=== PATIENT | male | born 1965 | race Caucasian/White ===

== ENCOUNTER 2021-02-06 15:12 | Outpatient (REF) | payer MEDICAID, SELFPAY ==
--- NOTE | ~2021-02-06 | XR_ITS ---
EXAMINATION: XR CHEST CLINICAL INFORMATION: Cough COMPARISON: 03/27/2019 TECHNIQUE: 2 views of the chest were obtained. FINDINGS: No significant abnormality is noted involving the heart, lungs, mediastinum, bony thorax or soft tissues. XR/XR chest 2V IMPRESSION: Unremarkable examination.
== END 2021-02-06 15:13 | disposition home or self-care (01) ==
LOC: HO.XRAY 15:12
PROVIDERS: Absent Provider Internal Medicine; PCP Internal Medicine; Visit Provider Emergency Medicine
DX: R05 Cough (principal)
CPT/HCPCS: 71046

== ENCOUNTER 2021-02-07 23:44 | Emergency (ER) | payer MEDICAID, SELFPAY ==
--- NOTE | 2021-02-07 | ECG_ITS ---
Test Reason : BACK PAIN Blood Pressure : / mmHG Vent. Rate : 071 BPM Atrial Rate : 071 BPM P-R Int : 132 ms QRS Dur : 098 ms QT Int : 390 ms P-R-T Axes : 053 -07 090 degrees QTc Int : 423 ms Normal sinus rhythm Nonspecific T wave abnormality Abnormal ECG When compared with ECG of 07-JUL-2019 13:44, No significant change was found Referred By: Generic ED Physician Electronically Signed By:JOHN JONES
--- NOTE | ~2021-02-07 | XR_ITS ---
EXAMINATION: XR CHEST CLINICAL INFORMATION: Emily of breath COMPARISON: 02/06/2021 TECHNIQUE: Frontal view of the chest was obtained. FINDINGS: The lungs are well expanded. There is no focal consolidation, edema, or effusion. No pneumothorax. The cardiomediastinal silhouette is within normal limits. No acute osseous abnormality. Left axillary clips noted. XR/XR chest 1V IMPRESSION: Clear lungs.
[2021-02-07 23:50] VITALS: BP 142/78; PULSE 90; RESP 20; TEMP 36.5; O2SAT 98; BMI 33.2
[2021-02-08 00:15] LABS: Basophils Percent Auto 0.3 % (0-2); Hematocrit 34.6 % (42-52); Hemoglobin 12.1 g/dl (14.0-18.0); Imm Gran Abs Auto 0.03 X10*3/uL (0.00-0.03); Imm Gran Pct Auto 0.5 % (0.0-0.4); Lymphocytes Absolute Auto 0.4 X10*3/uL (1.2-4.9); Lymphocytes Percent Auto 5.7 % (20-40); MANUAL DIFF FLAG SCAN; Mean Corpuscular Hemoglobin 29.3 pg (27.0-33.0); Mean Corpuscular Volume 83.8 fL (80-98); Mean Platelet Volume 11.2 fL (9.4-12.4); Monocytes Absolute Auto 0.1 X10*3/uL (0.1-1.2); Monocytes Percent Auto 1.7 % (2-11); Neutrophils Absolute Auto 5.9 X10*3/uL (2.0-8.3); Neutrophils Percent Auto 91.8 % (45-73); Platelet Count 226 X10*3/uL (160-400); Red Blood Count 4.13 X10*6/uL (4.60-5.80); Red Cell Distribution Width 12.3 % (11.0-16.0); SCAN SMEAR FLAG 1; White Blood Count 6.4 X10*3/uL (4.8-10.8)
[2021-02-08 00:36] LABS: SLIDE REVIEW VERIFIED
[2021-02-08 00:51] LABS: Alanine Aminotransferase 24 U/L (0-40); Albumin Level 3.9 g/dL (3.5-5.0); Alkaline Phosphatase 123 U/L (39-117); Anion Gap 14 (12-20); Aspartate Amino Transferase 13 U/L (5-37); Bilirubin Total 0.5 mg/dL (0.0-1.0); Blood Urea Nitrogen 27 mg/dL (9-16); Calcium 8.5 mg/dL (8.4-10.2); Carbon Dioxide 16 mmol/L (22-29); Chloride 102 mmol/L (96-108); Estimated Glomerular Filt Rate 26; Glucose Random 693 mg/dL (60-115); Potassium 5.2 mmol/L (3.3-5.1); Sodium 127 mmol/L (135-145); Total Protein 6.9 g/dL (6.5-8.0)
[2021-02-08 00:52] LABS: Troponin-I High Sensitivity 11.5 ng/L (<3.5-35.0)
[2021-02-08 02:00] VITALS: BP 159/88; PULSE 68; RESP 18; O2SAT 99
--- NOTE | 2021-02-08 02:58 | ED_ITS ---
HPI - General Adult General Chief complaint: General Medical Stated complaint: High Blood Sugar/Cough Time Seen by Provider: 02/08/21 02:58 Source: patient Mode of arrival: ambulatory Limitations: no limitations History of Present Illness HPI narrative: patient checked his glucose and it read high. patient on predn isone for cough. 2 days ago he was tested for COVID and was negative. patient has been vacinated. patient does not smoke and has not been on prednisone. He takes insulin. Patient is a kidney transplant patient. Onset (ago): day(s) Severity: moderate Associated symptoms: cough Related Data Allergies Allergy/AdvReac Type Severity Reaction Status Date / Time hydromorphone [From DILAUDID] Allergy Mild ITCHINESS Verified 02/07/21 23:49 diphenhydramine Allergy Unknown UNK Verified 02/07/21 23:49 [From BENADRYL] Review of Systems Constitutional: Constitutional: Reports no additional constitutional complaints Eyes: Eyes: Reports no additional eye complaints ENT: Denies dizziness Cardiovascular: Cardiovascular: Reports no additional cardiovascular complaints Respiratory: Respiratory: Reports as per HPI Gastrointestinal: Gastrointestinal: Reports no additional gastrointestinal complaints Musculoskeletal: Musculoskeletal: Reports no additional musculoskeletal complaints Integumentary/Breasts: Skin/Breast: Denies rash Neurologic: Reports system reviewed and no additional complaints, except as documented, Denies dizziness and Denies Sensory deficit (Neuro) Psychiatric: Psychiatric: Denies anxiety [facility] Social History Social History Advance Directives: No Advance Directives Information Provided: Yes Physical Exam Vital Signs: Vital Signs: Last Vital Signs Temp 97.7 F 02/07/21 23:50 Pulse 75 02/08/21 05:25 Resp 18 02/08/21 05:25 BP 133/66 02/08/21 05:25 Pulse Ox 98 02/08/21 05:25 Body Mass Index 33.2 Const: General: healthy appearing Nutritional Appearance: average body habitus Orientation/consciousness: oriented to person and patient oriented x3 Limitations: no limitations HENMT: Head: Yes normal to inspection Ears: external ears normal General nose exam: Normal external nose present Mouth: Normal oral and palatal mucosa present and oropharynx normal Throat: Yes posterior oropharynx normal Eyes: General: appearance normal, both eyes and all related structures Neck: Other: supple Neck: Yes normal visual inspection Chest: Chest palpation & inspection: normal inspection of the chest Resp: Auscultation: clear to auscultation bilaterally Cardio: Jugular venous distension: no JVD Rate: regular rate Rhythm: regular rhythm Heart sounds: S1 normal heart sound present and S2 normal heart sound present GI: Inspection: Yes normal to inspection Palpation (GI): Soft to palpation, nontender and No hepatosplenomegaly present Auscultation: normal bowel sounds : General: Yes no CVA tenderness Back/Spine/Pelvis: Back: no CVA tenderness Skin: General skin exam: no rashes or lesions noted Neuro: General: oriented to person and patient oriented x3 Cranial nerves: Yes CN's II-XII intact bilaterally Motor exam (neuro): 5/5 motor strength present throughout Sensory Exam: No Sensory deficit (Neuro) Extrem: Other: old nonfunctioning fistula in left arm Psych: Appearance: grossly normal Course Reevaluation(s) Reevaluation #1: patient with RSV and hyperglycemia secondary to being on prednisone. glucose now improved will dc home and stop prednisone Time: 05:56 Medical Decision Making Lab Data Result diagrams: 02/08/21 00:04 02/08/21 00:04 Labs: Lab Results 02/08/21 02/08/21 02/08/21 Range/Units 00:04 00:04 00:04 WBC 6.4 (4.8-10.8) X10*3/uL RBC 4.13 L (4.60-5.80) X10*6/uL Hgb 12.1 L (14.0-18.0) g/dl Hct 34.6 L (42-52) % MCV 83.8 (80-98) fL MCH 29.3 (27.0-33.0) pg MCHC 35.0 (31.0-36.0) g/dl RDW 12.3 (11.0-16.0) % Plt Count 226 (160-400) X10*3/uL MPV 11.2 (9.4-12.4) fL Immature Gran % (Auto) 0.5 H (0.0-0.4) % Neut % (Auto) 91.8 H (45-73) % Lymph % (Auto) 5.7 L (20-40) % [place] % (Auto) 1.7 L (2-11) % Eos % (Auto) 0.0 (0-4) % Baso % (Auto) 0.3 (0-2) % Lymph # (Auto) 0.4 L (1.2-4.9) X10*3/uL [place] # (Auto) 0.1 (0.1-1.2) X10*3/uL Eos # (Auto) 0.0 (0.0-0.4) X10*3/uL Baso # (Auto) 0.0 (0.0-0.2) X10*3/uL Abs Immat Gran (auto) 0.03 (0.00-0.03) X10*3/uL Absolute Neuts (auto) 5.9 (2.0-8.3) X10*3/uL Absolute Nucleated RBC 0.000 (0.0-0.012) X10*3/uL Nucleated RBC % (auto) 0.0 (0.0-0.2) /100WBC Smear Tech's Comments VERIFIED Sodium 127 L (135-145) mmol/L Potassium 5.2 H (3.3-5.1) mmol/L Chloride 102 (96-108) mmol/L Carbon Dioxide 16 L (22-29) mmol/L Anion Gap 14 (12-20) BUN 27 H (9-16) mg/dL Creatinine 2.59 H (0.5-1.4) mg/dL Estim Creat Clear Calc 31.0 Estimated GFR 26 POC Glucose (60-115) mg/dL Random Glucose 693 H* (60-115) mg/dL Calcium 8.5 (8.4-10.2) mg/dL Total Bilirubin 0.5 (0.0-1.0) mg/dL AST 13 (5-37) U/L ALT 24 (0-40) U/L Alkaline Phosphatase 123 H (39-117) U/L Troponin I High Sens 11.5 (<3.5-35.0) ng/L Total Protein 6.9 (6.5-8.0) g/dL Albumin 3.9 (3.5-5.0) g/dL Coronavirus (PCR) (Negative) Influenza Type A (PCR) (Negative) Influenza Type B (PCR) (Negative) RSV RNA Qual (PCR) (Negative) 02/08/21 02/08/21 02/08/21 Range/Units 03:30 04:22 05:30 WBC (4.8-10.8) X10*3/uL RBC (4.60-5.80) X10*6/uL Hgb (14.0-18.0) g/dl Hct (42-52) % MCV (80-98) fL MCH (27.0-33.0) pg MCHC (31.0-36.0) g/dl RDW (11.0-16.0) % Plt Count (160-400) X10*3/uL MPV (9.4-12.4) fL Immature Gran % (Auto) (0.0-0.4) % Neut % (Auto) (45-73) % Lymph % (Auto) (20-40) % [place] % (Auto) (2-11) % Eos % (Auto) (0-4) % Baso % (Auto) (0-2) % Lymph # (Auto) (1.2-4.9) X10*3/uL [place] # (Auto) (0.1-1.2) X10*3/uL Eos # (Auto) (0.0-0.4) X10*3/uL Baso # (Auto) (0.0-0.2) X10*3/uL Abs Immat Gran (auto) (0.00-0.03) X10*3/uL Absolute Neuts (auto) (2.0-8.3) X10*3/uL Absolute Nucleated RBC (0.0-0.012) X10*3/uL Nucleated RBC % (auto) (0.0-0.2) /100WBC Smear Tech's Comments Sodium (135-145) mmol/L Potassium (3.3-5.1) mmol/L Chloride (96-108) mmol/L Carbon Dioxide (22-29) mmol/L Anion Gap (12-20) BUN (9-16) mg/dL Creatinine (0.5-1.4) mg/dL Estim Creat Clear Calc Estimated GFR POC Glucose 423 H* 281 H (60-115) mg/dL Random Glucose (60-115) mg/dL Calcium (8.4-10.2) mg/dL Total Bilirubin (0.0-1.0) mg/dL AST (5-37) U/L ALT (0-40) U/L Alkaline Phosphatase (39-117) U/L Troponin I High Sens (<3.5-35.0) ng/L Total Protein (6.5-8.0) g/dL Albumin (3.5-5.0) g/dL Coronavirus (PCR) NEGATIVE (Negative) Influenza Type A (PCR) NEGATIVE (Negative) Influenza Type B (PCR) NEGATIVE (Negative) RSV RNA Qual (PCR) POSITIVE A (Negative) Imaging Data Chest x-ray: Radiologist's impression: no infiltrate Discharge Plan Discharge Clinical Impression: Acute hyperglycemia, Respiratory syncytial virus (RSV) Instructions: Diabetic Hyperglycemia (ED) Additional Instructions: stop prednisone Referrals: [facility] [Primary Care Provider] - 5 days
[2021-02-08] MEDS: 0.9 % Sodium Chloride 1,000 ML 999 ML IVCONT ×3 (03:13→05:25)
[2021-02-08] MEDS: Insulin Lispro 100 UNIT/ML 3 ML VIAL 10 UNIT SUBCUT (03:24)
[2021-02-08 04:26] VITALS: BP 138/67; PULSE 74; RESP 18; O2SAT 99
[2021-02-08 04:51] LABS: Influenza A PCR NEGATIVE (Negative); Influenza B PCR NEGATIVE (Negative); Resp Syncy Virus RNA Qual PCR POSITIVE (Negative); SARS COV2 PCR INHOUSE NEGATIVE (Negative)
[2021-02-08 05:06] VITALS: BP 139/79; PULSE 72; RESP 16; O2SAT 98
[2021-02-08 05:25] VITALS: BP 133/66; PULSE 75; RESP 18; O2SAT 98
[2021-02-08 05:33] LABS: Glucose, Whole Blood 281 mg/dL (60-115)
[2021-02-08 05:33] LABS: Glucose, Whole Blood 423 mg/dL (60-115)
--- NOTE | 2021-02-08 05:53 | PC.NURSE ---
pt poc improved and plan is to discharge pt.
--- NOTE | 2021-02-08 06:09 | PC.NURSE ---
per dr irwin the last dose of ns is not needed and pt is ready for discharge.
== END 2021-02-08 06:24 | disposition home or self-care (01) ==
PROVIDERS: Emergency Provider Emergency Medicine
DX: E11.65 Type 2 diabetes mellitus with hyperglycemia (principal); R05 Cough; B97.4 Respiratory syncytial virus as the cause of diseases classified elsewhere; Z94.0 Kidney transplant status; Z79.4 Long term (current) use of insulin; Z79.52 Long term (current) use of systemic steroids; Z20.822 Contact with and (suspected) exposure to COVID-19
CPT/HCPCS: 0241U; 36415; 71045; 80053; 82947; 84484; 85025; 93005; 96360; 96361; 99284

== ENCOUNTER 2021-02-20 17:19 | Emergency (ER) | payer MEDICAID, SELFPAY ==
--- NOTE | ~2021-02-20 | XR_ITS ---
EXAMINATION: XR CHEST CLINICAL INFORMATION: Covid positive COMPARISON: 02/08/2021 TECHNIQUE: Frontal view of the chest was obtained. FINDINGS: The lungs are well expanded. There is no focal consolidation, edema, or effusion. No pneumothorax. The cardiomediastinal silhouette is within normal limits. No acute osseous abnormality. Left upper extremity vascular stent noted. XR/XR chest 1V IMPRESSION: Clear lungs.
[2021-02-20 18:15] VITALS: BP 111/67; PULSE 96; RESP 16; TEMP 37; O2SAT 100; BMI 29.5
--- NOTE | 2021-02-20 18:26 | ED_ITS ---
HPI - General Adult General Chief complaint: General Medical Stated complaint: covid + Time Seen by Provider: 02/20/21 18:26 Source: patient Mode of arrival: ambulatory Limitations: language barrier History of Present Illness HPI narrative: Patient diabetic RSV positive on 02/08, came here for increased weakness body aches not feeling good since then slight shortness of breath dry cough. Patient took his insulin the morning and blood sugar was 150 at that time but missed his p.m. insulin as he did eat his lunch or dinner Related Data Allergies Allergy/AdvReac Type Severity Reaction Status Date / Time hydromorphone [From DILAUDID] Allergy Mild ITCHINESS Verified 02/07/21 23:49 diphenhydramine Allergy Unknown UNK Verified 02/07/21 23:49 [From BENADRYL] Review of Systems Review of Systems: Yes all other systems are reviewed and are negative [facility] Past Medical History Medical History Diabetes HTN (hypertension) Surgical History H/O arteriovenostomy for renal dialysis Social History Social History Advance Directives: No Advance Directives Information Provided: No Physical Exam Vital Signs: Vital Signs: Last Vital Signs Temp 98.6 F 02/20/21 18:15 Pulse 96 02/20/21 18:15 Resp 16 02/20/21 18:15 BP 111/67 02/20/21 18:15 Pulse Ox 100 02/20/21 18:15 Body Mass Index 29.5 Appearance: Alert. Oriented X3. No acute distress. Eyes: PERRLA, No Nystagmus ENT: Pharynx normal. Oral Mucosa moist Neck: Normal inspection. Neck supple. CVS: Normal heart rate and rhythm. Pulses normal. Respiratory: No respiratory distress. Equal air entry bilateral, no whe ezing/rales/rhonchi Abdomen: Soft and nontender. Bowel sounds are present, no mass palpable, no CVA tenderness Skin: Skin warm and dry. Normal skin color. Normal skin turgor. Extremities: No lower extremity edema. No calf tenderness Neuro: Oriented X 3. No motor deficit. No sensory deficit.No cerebellar signs , cranial nerves II-XII intact Medical Decision Making MDM Narrative Medical decision making narrative: Patient's history of RSV infection not the COVID repeat COVID testing was also negative chest x-ray negative blood sugars elevated as patient missed his insulin which improved after giving insulin and IV fluids patient advised to follow-up with his PCP Lab Data Result diagrams: 02/20/21 19:13 02/20/21 19:13 Labs: Lab Results 02/20/21 02/20/21 02/20/21 Range/Units 19:13 19:13 21:46 WBC 8.5 (4.8-10.8) X10*3/uL RBC 4.38 L (4.60-5.80) X10*6/uL Hgb 12.9 L (14.0-18.0) g/dl Hct 36.1 L (42-52) % MCV 82.4 (80-98) fL MCH 29.5 (27.0-33.0) pg MCHC 35.7 (31.0-36.0) g/dl RDW 12.1 (11.0-16.0) % Plt Count 268 (160-400) X10*3/uL MPV 11.1 (9.4-12.4) fL Immature Gran % (Auto) 0.2 (0.0-0.4) % Neut % (Auto) 77.8 H (45-73) % Lymph % (Auto) 15.0 L (20-40) % [place] % (Auto) 5.9 (2-11) % Eos % (Auto) 0.6 (0-4) % Baso % (Auto) 0.5 (0-2) % Lymph # (Auto) 1.3 (1.2-4.9) X10*3/uL [place] # (Auto) 0.5 (0.1-1.2) X10*3/uL Eos # (Auto) 0.1 (0.0-0.4) X10*3/uL Baso # (Auto) 0.0 (0.0-0.2) X10*3/uL Abs Immat Gran (auto) 0.02 (0.00-0.03) X10*3/uL Absolute Neuts (auto) 6.6 (2.0-8.3) X10*3/uL Absolute Nucleated RBC 0.000 (0.0-0.012) X10*3/uL Nucleated RBC % (auto) 0.0 (0.0-0.2) /100WBC Sodium 128 L (135-145) mmol/L Potassium 5.0 (3.3-5.1) mmol/L Chloride 105 (96-108) mmol/L Carbon Dioxide 15 L (22-29) mmol/L Anion Gap 13 (12-20) BUN 37 H (9-16) mg/dL Creatinine 2.91 H (0.5-1.4) mg/dL Estim Creat Clear Calc 26.1 Estimated GFR 23 POC Glucose 386 H* (60-115) mg/dL Random Glucose 577 H* (60-115) mg/dL Calcium 9.2 D (8.4-10.2) mg/dL COVID-19 ([facility]) (Negative) COVID-19 Clin Com 02/20/21 Range/Units 22:01 WBC (4.8-10.8) X10*3/uL RBC (4.60-5.80) X10*6/uL Hgb (14.0-18.0) g/dl Hct (42-52) % MCV (80-98) fL MCH (27.0-33.0) pg MCHC (31.0-36.0) g/dl RDW (11.0-16.0) % Plt Count (160-400) X10*3/uL MPV (9.4-12.4) fL Immature Gran % (Auto) (0.0-0.4) % Neut % (Auto) (45-73) % Lymph % (Auto) (20-40) % [place] % (Auto) (2-11) % Eos % (Auto) (0-4) % Baso % (Auto) (0-2) % Lymph # (Auto) (1.2-4.9) X10*3/uL [place] # (Auto) (0.1-1.2) X10*3/uL Eos # (Auto) (0.0-0.4) X10*3/uL Baso # (Auto) (0.0-0.2) X10*3/uL Abs Immat Gran (auto) (0.00-0.03) X10*3/uL Absolute Neuts (auto) (2.0-8.3) X10*3/uL Absolute Nucleated RBC (0.0-0.012) X10*3/uL Nucleated RBC % (auto) (0.0-0.2) /100WBC Sodium (135-145) mmol/L Potassium (3.3-5.1) mmol/L Chloride (96-108) mmol/L Carbon Dioxide (22-29) mmol/L Anion Gap (12-20) BUN (9-16) mg/dL Creatinine (0.5-1.4) mg/dL Estim Creat Clear Calc Estimated GFR POC Glucose (60-115) mg/dL Random Glucose (60-115) mg/dL Calcium (8.4-10.2) mg/dL COVID-19 ([place]) Negative (Negative) COVID-19 Clin Com See Note Discharge Plan Discharge Clinical Impression: Respiratory syncytial virus (RSV) infection Patient Disposition: Home, Self-Care Instructions: Respiratory Syncytial Virus (ED) Additional Instructions: Drink plenty of fluids You do not have COVID-19 infection Take your insulin on time Print Language: [place]
[2021-02-20] MEDS: 0.9 % Sodium Chloride 1,000 ML 999 ML IVCONT ×2 (19:11→20:33)
[2021-02-20 19:19] LABS: Basophils Percent Auto 0.5 % (0-2); Eosinophils Absolute Auto 0.1 X10*3/uL (0.0-0.4); Eosinophils Percent Auto 0.6 % (0-4); Hematocrit 36.1 % (42-52); Hemoglobin 12.9 g/dl (14.0-18.0); Imm Gran Abs Auto 0.02 X10*3/uL (0.00-0.03); Imm Gran Pct Auto 0.2 % (0.0-0.4); Lymphocytes Absolute Auto 1.3 X10*3/uL (1.2-4.9); MANUAL DIFF FLAG NO; Mean Corpuscular HGB Conc 35.7 g/dl (31.0-36.0); Mean Corpuscular Hemoglobin 29.5 pg (27.0-33.0); Mean Corpuscular Volume 82.4 fL (80-98); Mean Platelet Volume 11.1 fL (9.4-12.4); Monocytes Absolute Auto 0.5 X10*3/uL (0.1-1.2); Monocytes Percent Auto 5.9 % (2-11); Neutrophils Absolute Auto 6.6 X10*3/uL (2.0-8.3); Neutrophils Percent Auto 77.8 % (45-73); Platelet Count 268 X10*3/uL (160-400); Red Blood Count 4.38 X10*6/uL (4.60-5.80); Red Cell Distribution Width 12.1 % (11.0-16.0); White Blood Count 8.5 X10*3/uL (4.8-10.8)
[2021-02-20 19:37] LABS: Anion Gap 13 (12-20); Blood Urea Nitrogen 37 mg/dL (9-16); Calcium 9.2 mg/dL (8.4-10.2); Carbon Dioxide 15 mmol/L (22-29); Chloride 105 mmol/L (96-108); Creatinine Clr Calc Pharmacy 26.1; Estimated Glomerular Filt Rate 23; Glucose Random 577 mg/dL (60-115); Sodium 128 mmol/L (135-145)
[2021-02-20] MEDS: Insulin Lispro 100 UNIT/ML 3 ML VIAL 14 UNIT SUBCUT (20:33)
[2021-02-20] MEDS: Ketorolac Tromethamine 15 MG/ML VIAL IVPUSH (20:33)
[2021-02-20 21:51] LABS: Glucose, Whole Blood 386 mg/dL (60-115)
[2021-02-20 22:20] LABS: COVID-19 Test Negative (Negative); IDNOW Serial# 55D5AD1C
== END 2021-02-20 23:43 | disposition home or self-care (01) ==
PROVIDERS: Emergency Provider Internal Medicine
DX: J22 Unspecified acute lower respiratory infection (principal); M79.10 Myalgia, unspecified site; I10 Essential (primary) hypertension; Z20.822 Contact with and (suspected) exposure to COVID-19; Z79.899 Other long term (current) drug therapy; Z79.4 Long term (current) use of insulin
CPT/HCPCS: 36415; 71045; 80048; 82947; 85025; 87635; 96361; 96374; 99284; J1885

== ENCOUNTER 2021-08-13 12:07 | Outpatient (REF) | payer MEDICAID, SELFPAY ==
--- NOTE | ~2021-08-13 | XR_ITS ---
EXAMINATION: XR hip RT min 2V, XR lumbar spine 2-3V CLINICAL INFORMATION: Reason for Exam UNSPECIFIED INJURY OF RIGHT HIP, INITIAL ENCOUNTER COMPARISON: None TECHNIQUE: 3 views of the lumbar spine. 2 views of the right hip. XR/XR hip RT min 2V FINDINGS/IMPRESSION: 5 nonrib-bearing lumbar-type vertebral bodies. Vertebral body heights are maintained. Alignment is maintained. Disc space heights are maintained. Right upper quadrant cholecystectomy clips. Surgical clips overlie the right inguinal soft tissues. Atherosclerotic vascular calcification. No acute hip fracture or dislocation. Mild degenerative changes of the right hip with degenerative spurring. Hip joint space is maintained.
--- NOTE | ~2021-08-13 | XR_ITS ---
EXAMINATION: XR knee LT 4V, XR knee RT 4V CLINICAL INFORMATION: Trauma COMPARISON: None TECHNIQUE: 4 views of the bilateral knees XR/XR knee RT 4V FINDINGS/IMPRESSION: RIGHT KNEE: No acute fracture or dislocation. Joint spaces are maintained. No joint effusion. Atherosclerotic vascular calcification. LEFT KNEE: No acute fracture or dislocation. Joint spaces are maintained. No joint effusion. Atherosclerotic vascular calcification.
--- NOTE | ~2021-08-13 | XR_ITS ---
EXAMINATION: XR ribs BI min 4V w CXR1V CLINICAL INFORMATION: Reason for Exam UNSPECIFIED INJURY OF THORAX, INITIAL ENCOUNTER COMPARISON: Chest radiograph 02/20/2021 TECHNIQUE: 4 views of the chest and ribs XR/XR ribs BI min 4V w CXR1V FINDINGS/IMPRESSION: No displaced rib fracture. Please note that rib radiographs have low sensitivity for detection of rib fractures and if continued clinical concern CT chest is advised. Clear lungs. No pneumothorax. No pleural effusion. Normal cardiomediastinal silhouette. Right upper quadrant cholecystectomy clips. Left axillary surgical clips and left axillary vascular stent.
--- NOTE | ~2021-08-13 | XR_ITS ---
EXAMINATION: XR hip RT min 2V, XR lumbar spine 2-3V CLINICAL INFORMATION: Reason for Exam UNSPECIFIED INJURY OF RIGHT HIP, INITIAL ENCOUNTER COMPARISON: None TECHNIQUE: 3 views of the lumbar spine. 2 views of the right hip. XR/XR lumbar spine 2-3V FINDINGS/IMPRESSION: 5 nonrib-bearing lumbar-type vertebral bodies. Vertebral body heights are maintained. Alignment is maintained. Disc space heights are maintained. Right upper quadrant cholecystectomy clips. Surgical clips overlie the right inguinal soft tissues. Atherosclerotic vascular calcification. No acute hip fracture or dislocation. Mild degenerative changes of the right hip with degenerative spurring. Hip joint space is maintained.
--- NOTE | ~2021-08-13 | XR_ITS ---
EXAMINATION: XR knee LT 4V, XR knee RT 4V CLINICAL INFORMATION: Trauma COMPARISON: None TECHNIQUE: 4 views of the bilateral knees XR/XR knee LT 4V FINDINGS/IMPRESSION: RIGHT KNEE: No acute fracture or dislocation. Joint spaces are maintained. No joint effusion. Atherosclerotic vascular calcification. LEFT KNEE: No acute fracture or dislocation. Joint spaces are maintained. No joint effusion. Atherosclerotic vascular calcification.
== END 2021-08-13 12:08 | disposition home or self-care (01) ==
LOC: HO.XRAY 12:07
PROVIDERS: Absent Provider Family Medicine; PCP Family Medicine; Visit Provider Emergency Medicine
DX: S29.9XXA Unspecified injury of thorax, initial encounter (principal); S39.92XA Unspecified injury of lower back, initial encounter; S79.911A Unspecified injury of right hip, initial encounter; S89.91XA Unspecified injury of right lower leg, initial encounter; S89.92XA Unspecified injury of left lower leg, initial encounter
CPT/HCPCS: 71111; 72100; 73502; 73564

== ENCOUNTER 2021-08-14 14:14 | Outpatient (REF) | payer MEDICAID, SELFPAY ==
--- NOTE | ~2021-08-14 | US_ITS ---
EXAMINATION: ULTRASOUND EXTREMITY NONVASCULAR CLINICAL INFORMATION: Small mobile mass right anterior ankle COMPARISON: None TECHNIQUE: Grayscale and color imaging of the right anterior ankle and the area of palpable abnormality. Comparison imaging of the left anterior ankle FINDINGS: There is a linear echogenic density just deep to the skin corresponding to palpable abnormality. This demonstrates acoustic shadowing. This measures 3 x 3 x 1 mm. Ultrasound appearance is most suggestive of a soft tissue foreign body. No surrounding fluid collection is seen. US/US extremity nonvascular mckinley IMPRESSION: Palpable abnormality corresponds to a 3 x 3 x 1 mm linear echogenic shadowing density just deep to the skin. Ultrasound appearance is most suggestive of a body. Correlation with x-ray recommended.
== END 2021-08-14 14:15 | disposition home or self-care (01) ==
LOC: HO.HMGCX 14:14
PROVIDERS: PCP Family Medicine; Visit Provider Family Medicine
DX: R22.41 Localized swelling, mass and lump, right lower limb (principal)
CPT/HCPCS: 76882

== ENCOUNTER 2021-08-26 15:30 | Emergency (ER) | payer MEDICAID, SELFPAY ==
--- NOTE | ~2021-08-26 | XR_ITS ---
EXAMINATION: XR CHEST CLINICAL INFORMATION: Cough COMPARISON: 02/20/2021 TECHNIQUE: Frontal view of the chest was obtained. FINDINGS: Lung volumes are symmetric. No focal consolidation is seen. No evidence of pneumothorax, pleural effusion, or pulmonary edema. The cardiomediastinal contour is unremarkable. No acute osseous findings are seen. XR/XR chest 1V IMPRESSION: No acute cardiopulmonary findings.
[2021-08-26 16:14] VITALS: BP 130/85; PULSE 82; RESP 20; TEMP 36.8; O2SAT 100; BMI 28.0
[2021-08-26 17:03] LABS: Basophils Absolute Auto 0.1 X10*3/uL (0.0-0.2); Basophils Percent Auto 0.6 % (0-2); Eosinophils Absolute Auto 0.1 X10*3/uL (0.0-0.4); Hematocrit 41.3 % (42.0-52.0); Imm Gran Abs Auto 0.03 X10*3/uL (0.00-0.03); Imm Gran Pct Auto 0.3 % (0.0-0.4); Lymphocytes Absolute Auto 1.4 X10*3/uL (1.2-4.9); Lymphocytes Percent Auto 15.9 % (20-40); MANUAL DIFF FLAG NO; Mean Corpuscular HGB Conc 33.9 g/dl (31.0-36.0); Mean Corpuscular Hemoglobin 28.7 pg (27.0-33.0); Mean Corpuscular Volume 84.6 fL (80.0-98.0); Mean Platelet Volume 11.1 fL (9.4-12.4); Monocytes Absolute Auto 0.5 X10*3/uL (0.1-1.2); Monocytes Percent Auto 5.7 % (2-11); Neutrophils Absolute Auto 6.7 x10*3/uL (2.0-8.3); Neutrophils Percent Auto 76.5 % (45-73); Platelet Count 284 X10*3/uL (160-400); Red Blood Count 4.88 X10*6/uL (4.60-5.80); Red Cell Distribution Width 12.5 % (11.0-16.0); White Blood Count 8.7 X10*3/uL (4.8-10.8)
[2021-08-26 17:35] LABS: Anion Gap 15 (12-20); Blood Urea Nitrogen 20 mg/dL (9-16); Calcium 9.3 mg/dL (8.4-10.2); Carbon Dioxide 22 mmol/L (22-29); Chloride 95 mmol/L (96-108); Creatinine Clr Calc Pharmacy 27.8; Estimated Glomerular Filt Rate 25; Glucose Random 711 mg/dL (60-115); Potassium 5.2 mmol/L (3.3-5.1); Sodium 127 mmol/L (135-145)
--- NOTE | 2021-08-26 18:29 | ED.GENADULT ---
HPI - General Adult General Chief complaint: General Medical Stated complaint: HBS, Related Data Allergies Allergy/AdvReac Type Severity Reaction Status Date / Time hydromorphone [From DILAUDID] Allergy Mild ITCHINESS Verified 02/07/21 23:49 diphenhydramine Allergy Unknown UNK Verified 02/07/21 23:49 [From BENADRYL] [facility] Past Medical History Attestation statement: The following information was validated with the patient. Source: old records reviewed Medical History Diabetes HTN (hypertension) Surgical History H/O arteriovenostomy for renal dialysis Physical Exam ED Vital Signs: Vital Signs - 24 hr 08/26/21 16:14 Temperature 98.2 F Pulse Rate 82 Respiratory Rate 20 Blood Pressure 130/85 Pulse Oximetry 100 BMI result Body Mass Index 28.0 Course Course Course Narrative: 18:29 corrected sodium 137. BUN 20, creatinine 2.63 which is consistent and better than prior values. Medical Decision Making Lab Data Result diagrams: 08/26/21 16:52 08/26/21 16:52 Labs: Lab Results 08/26/21 08/26/21 Range/Units 16:52 16:52 WBC 8.7 (4.8-10.8) X10*3/uL RBC 4.88 (4.60-5.80) X10*6/uL Hgb 14.0 (14.0-18.0) g/dl Hct 41.3 L (42.0-52.0) % MCV 84.6 (80.0-98.0) fL MCH 28.7 (27.0-33.0) pg MCHC 33.9 (31.0-36.0) g/dl RDW 12.5 (11.0-16.0) % Plt Count 284 (160-400) X10*3/uL MPV 11.1 (9.4-12.4) fL Immature Gran % (Auto) 0.3 (0.0-0.4) % Neut % (Auto) 76.5 H (45-73) % Lymph % (Auto) 15.9 L (20-40) % [place] % (Auto) 5.7 (2-11) % Eos % (Auto) 1.0 (0-4) % Baso % (Auto) 0.6 (0-2) % Lymph # (Auto) 1.4 (1.2-4.9) X10*3/uL [place] # (Auto) 0.5 (0.1-1.2) X10*3/uL Eos # (Auto) 0.1 (0.0-0.4) X10*3/uL Baso # (Auto) 0.1 (0.0-0.2) X10*3/uL Abs Immat Gran (auto) 0.03 (0.00-0.03) X10*3/uL Absolute Neuts (auto) 6.7 (2.0-8.3) x10*3/uL Absolute Nucleated RBC 0.000 (0.0-0.012) X10*3/uL Nucleated RBC % (auto) 0.0 (0.0-0.2) /100WBC Sodium 127 L (135-145) mmol/L Potassium 5.2 H (3.3-5.1) mmol/L Chloride 95 L (96-108) mmol/L Carbon Dioxide 22 (22-29) mmol/L Anion Gap 15 (12-20) BUN 20 H (9-16) mg/dL Creatinine 2.63 H (0.5-1.4) mg/dL Estim Creat Clear Calc 27.8 Estimated GFR 25 Random Glucose 711 H* (60-115) mg/dL Calcium 9.3 (8.4-10.2) mg/dL
--- NOTE | 2021-08-26 19:39 | ED_ITS ---
HPI - General Adult General Chief complaint: General Medical <Jess Fallon NP - Last Filed: 08/27/21 01:53> Stated complaint: HBS, <Jess Fallon NP - Last Filed: 08/27/21 01:53> Time Seen by Provider: 08/26/21 22:37 <Jess Fallon NP - Last Filed: 08/27/21 01:53> Source: patient <Jess Fallon NP - Last Filed: 08/27/21 01:53> Mode of arrival: ambulatory <Jess Fallon NP - Last Filed: 08/27/21 01:53> Limitations: language barrier <Jess Fallon NP - Last Filed: 08/27/21 01:53> History of Present Illness HPI narrative: 56-year-old male presents to the emergency department for elevated blood sugar and chronic gastritis. Patient's blood sugar in the emergency department waiting room was 717. <Jess Fallon NP - Last Filed: 08/27/21 01:53> Onset (ago): unknown <Jess Fallon NP - Last Filed: 08/27/21 01:53> Location: abdomen <Jess Fallon NP - Last Filed: 08/27/21 01:53> Radiation: non-radiation <Jess Fallon NP - Last Filed: 08/27/21 01:53> Severity: moderate <Jess Fallon NP - Last Filed: 08/27/21 01:53> Severity scale (1-10): 5 <Jess Fallon NP - Last Filed: 08/27/21 01:53> Quality: aching <Jess Fallon NP - Last Filed: 08/27/21 01:53> Pain Consistency: constant <Jess Fallon NP - Last Filed: 08/27/21 01:53> Relieving factors: none <Jess Fallon NP - Last Filed: 08/27/21 01:53> Associated symptoms: denies other symptoms <Jess Fallon NP - Last Filed: 08/27/21 01:53> Treatments prior to arrival: none <Jess Fallon NP - Last Filed: 08/27/21 01:53> Related Data Home medications: Home Medications Medication Instructions Recorded Confirmed albuterol sulfate 1 amp INHALATION TID 08/26/21 albuterol sulfate 90 mcg/actuation 1 puff PO Q4H PRN 08/26/21 aerosol inhaler (ProAir HFA) amlodipine 5 mg tablet 5 mg PO DAILY 08/26/21 aspirin 81 mg tablet,delayed 81 mg PO DAILY 08/26/21 release atorvastatin 10 mg tablet 10 mg PO DAILY 08/26/21 calcitriol 0.5 mcg capsule 0.5 mcg PO DAILY 08/26/21 cholecalciferol (vitamin D3) 1,250 1 cap PO QWEEK 08/26/21 mcg (50,000 unit) capsule duloxetine 20 mg capsule,delayed 20 mg PO DAILY 08/26/21 release ergocalciferol (vitamin D2) 1,250 1 cap PO ALDRICH@1000 08/26/21 mcg (50,000 unit) capsule fluticasone propionate 50 2 spray INTRANASAL DAILY 08/26/21 mcg/actuation nasal spray,suspension insulin glargine 100 unit/mL (3 28 unit SUBCUT DAILY 08/26/21 mL) subcutaneous pen (Lantus Solostar U-100 Insulin) insulin lispro 100 unit/mL 0 - 30 unit SUBCUT DAILY 08/26/21 subcutaneous pen (Humalog KwikPen (U-100) Insulin) lidocaine 5 % topical patch 1 patch TOPICAL DAILY 08/26/21 (Lidoderm) metoclopramide HCl 10 mg tablet 10 mg PO BEDTIME 08/26/21 mupirocin 2 % topical ointment 1 appl TOPICAL BID 08/26/21 omeprazole 40 mg capsule,delayed 40 mg PO DAILY 08/26/21 release prednisone 20 mg tablet 20 mg PO DAILY 08/26/21 tacrolimus 1 mg capsule, 2 mg PO BEDTIME 08/26/21 immediate-release tacrolimus 1 mg capsule, 3 mg PO DAILY 08/26/21 immediate-release tramadol 50 mg tablet 50 mg PO Q8H PRN 08/26/21 <Jess Fallon NP - Last Filed: 08/27/21 01:53> Allergies/adverse reactions: Allergies Allergy/AdvReac Type Severity Reaction Status Date / Time hydromorphone [From DILAUDID] Allergy Mild ITCHINESS Verified 02/07/21 23:49 diphenhydramine Allergy Unknown UNK Verified 02/07/21 23:49 [From BENADRYL] <Jess Fallon NP - Last Filed: 08/27/21 01:53> Review of Systems Review of Systems: Constitutional: No Fever, No Chills ENT/Mouth: No Ear Pain, No Hoarseness, No sore throat Eyes: No Eye Pain, No Swelling, No Redness, No Foreign Body Cardiovascular: No Chest Pain, No SOB Respiratory: No Cough, No Dyspnea Gastrointestinal: No Nausea, No Vomiting, No Diarrhea, No abdominal Pain Genitourinary: No Dysuria, No Hematuria Musculoskeletal: No joint pain, No Myalgias, No Joint Swelling Skin: No Skin lacerations, No rash Neuro: No Weakness, No Numbness, No Paresthesias, No Loss of Consciousness, No Dizziness, No Headache Psych: No Anxiety/Panic, No Depression Heme/Lymph: no easy bruising, no Lymphadenopathy Endocrine: Positive elevated blood sugar, No Polyuria, No Polydipsia <Jess Fallon NP - Last Filed: 08/27/21 01:53> Yes all other systems are reviewed and are negative <Jess Fallon NP - Last Filed: 08/27/21 01:53> [facility] Past Medical History Attestation statement: The following information was validated with the patient. <Jess Fallon NP - Last Filed: 08/27/21 01:53> Source: old records reviewed <Jess Fallon NP - Last Filed: 08/27/21 01:53> Medical History: Medical History Diabetes HTN (hypertension) <Jess Fallon NP - Last Filed: 08/27/21 01:53> Surgical History: Surgical History H/O arteriovenostomy for renal dialysis <Jess Fallon NP - Last Filed: 08/27/21 01:53> Social History Social History: Social History Advance Directives: No Advance Directives Information Provided: No <EDWIN Denise Last Filed: 08/27/21 01:53> Physical Exam ED Vital Signs: Vital Signs - 24 hr 08/26/21 16:14 08/26/21 19:47 08/27/21 00:00 Temperature 98.2 F 98.1 F 98.3 F Pulse Rate 82 99 84 Respiratory Rate 20 14 12 Blood Pressure 130/85 137/86 126/83 Pulse Oximetry 100 100 99 BMI result Body Mass Index 28.0 <Jess Fallon NP - Last Filed: 08/27/21 01:53> Vital Signs - 24 hr 08/26/21 16:14 08/26/21 19:47 08/27/21 00:00 Temperature 98.2 F 98.1 F 98.3 F Pulse Rate 82 99 84 Respiratory Rate 20 14 12 Blood Pressure 130/85 137/86 126/83 Pulse Oximetry 100 100 99 BMI result Body Mass Index 28.0 <Any Daly MD - Last Filed: 08/27/21 01:58> Appearance: Alert. Oriented X3. No acute distress. Eyes: Pupils equal, round and reactive to light. EOMI. Sclera nonicteric. ENT: Pharynx normal. Dry mucous membranes. Neck: Normal inspection. Neck supple. CVS: Normal heart rate and rhythm. Pulses normal. Respiratory: No respiratory distress. Breath sounds normal. Abdomen: Soft and nontender. Skin: Skin warm and dry. Normal skin color. Normal skin turgor. Extremities: No lower extremity edema. Gait well-balanced well coordinated. Neuro: No motor deficit. No sensory deficit. Cranial nerves 2-12 intact. <Jess Fallon NP - Last Filed: 08/27/21 01:53> Course Course Course Narrative: 56-year-old male presents with elevated blood sugar of 717. Corrected sodium 137 from lab values completed at 16:52 today. Patient does have an elevated BUN and creatinine which is better than his prior values. At this time patient is highly suspicious for DKA or HHS. Will initiate insulin, potassium is 5.2 20:50 left-sided fistula is not patent. Will use left arm for IV access. Patient adamantly refusing access to the right arm and to the IJ. repeat lab values are pending. Glucose levels are high without accurate reading on POC Accu-Chek. will give 10 units IV, insulin drip ordered. 2 L of lactated Ringer's ordered for infusion. 20:21 lactic acid 3.6, acetone is negative, Mag is 2.0. 23:00 patient starts to have complaints of cramping. Attending at bedside to attempt central line. 23:25 central line attempt discontinued. Potassium is 3.9. IV potassium order changed. 00:50 blood sugar 256, lactic acid is pending. Plan of care is for Lantus 28 units per his home dosage and 40 p.o. potassium at this time. 01:43 signs are stable and within normal limits. POC 295. Plan of care is to discharge home. floors buffer utilized for all correspondence. Google translate utilized for discharge instructions. Patient verbalized understanding of and agrees to plan of care to discharge home. Verbalized understanding of signs and symptoms indicating need for emergent intervention <Jess Fallon NP - Last Filed: 08/27/21 01:53> Procedures Central Line Placement Right IJ: Time Out Performed: Yes <Any Daly MD - Last Filed: 08/27/21 01:58> Patient Placed on Monitor/Pulse Ox: Yes <Any Daly MD - Last Filed: 08/27/21 01:58> MD Prep: mask, gown and gloves <Any Daly MD - Last Filed: 08/27/21 01:58> Central Line Prep: Chlorhexidine scrub <Any Daly MD - Last Filed: 08/27/21 01:58> Local Anesthetic: lidocaine 1% <Any Daly MD - Last Filed: 08/27/21 01:58> Amount of anesthesia used (mL): 2 <Any Daly MD - Last Filed: 08/27/21 01:58> Ultrasound Used for Placement: Yes <Any Daly MD - Last Filed: 08/27/21 01:58> Additional Comments: Patient consented with floors buffer, however procedure unable to be completed due to inability to thread guidewire despite good blood return and good position on ultrasound, attempted 3 times. Explained the situation to the patient afterwards. And repeat chest x-ray otherwise within normal limits. The indications for the central line placement were for concerns regarding potassium levels that were then noted to be within normal limits. <Any Daly MD - Last Filed: 08/27/21 01:58> Medical Decision Making Differential Diagnosis Differential Diagnosis: DKA, HHNK <Jess Fallon NP - Last Filed: 08/27/21 01:53> Medical Records Medical records reviewed: Yes I reviewed the patient's medical records. <Jess Fallon NP - Last Filed: 08/27/21 01:53> Lab Data Lab results reviewed: Yes I reviewed the patient's lab results. <Jess Fallon NP - Last Filed: 08/27/21 01:53> Result diagrams: : 08/26/21 16:52 08/26/21 22:51 <Jess Fallon NP - Last Filed: 08/27/21 01:53> Labs: Lab Results 08/26/21 08/26/21 08/26/21 Range/Units 16:52 16:52 19:44 WBC 8.7 (4.8-10.8) X10*3/uL RBC 4.88 (4.60-5.80) X10*6/uL Hgb 14.0 (14.0-18.0) g/dl Hct 41.3 L (42.0-52.0) % MCV 84.6 (80.0-98.0) fL MCH 28.7 (27.0-33.0) pg MCHC 33.9 (31.0-36.0) g/dl RDW 12.5 (11.0-16.0) % Plt Count 284 (160-400) X10*3/uL MPV 11.1 (9.4-12.4) fL Immature Gran % (Auto) 0.3 (0.0-0.4) % Neut % (Auto) 76.5 H (45-73) % Lymph % (Auto) 15.9 L (20-40) % Swain % (Auto) 5.7 (2-11) % Eos % (Auto) 1.0 (0-4) % Baso % (Auto) 0.6 (0-2) % Lymph # (Auto) 1.4 (1.2-4.9) X10*3/uL Swain # (Auto) 0.5 (0.1-1.2) X10*3/uL Eos # (Auto) 0.1 (0.0-0.4) X10*3/uL Baso # (Auto) 0.1 (0.0-0.2) X10*3/uL Abs Immat Gran (auto) 0.03 (0.00-0.03) X10*3/uL Absolute Neuts (auto) 6.7 (2.0-8.3) x10*3/uL Absolute Nucleated RBC 0.000 (0.0-0.012) X10*3/uL Nucleated RBC % (auto) 0.0 (0.0-0.2) /100WBC Sodium 127 L (135-145) mmol/L Potassium 5.2 H (3.3-5.1) mmol/L Chloride 95 L (96-108) mmol/L Carbon Dioxide 22 (22-29) mmol/L Anion Gap 15 (12-20) BUN 20 H (9-16) mg/dL Creatinine 2.63 H (0.5-1.4) mg/dL Estim Creat Clear Calc 27.8 Estimated GFR 25 POC Glucose > 600 H* (60-115) mg/dL Random Glucose 711 H* (60-115) mg/dL Lactic Acid (0.5-2.0) mmol/L Lactic Acid F/U @ 2Hr (0.5-2.0) mmol/L Calcium 9.3 (8.4-10.2) mg/dL Magnesium (1.6-2.6) mg/dL Urine Color Urine Appearance Urine pH (5.0-8.0) Ur Specific [place] (1.005-1.025) Urine Protein (NEG-TRACE) MG/DL Urine Glucose (UA) (NEG) MG/DL Urine Ketones (NEG) MG/DL Urine Blood (NEG) Urine Nitrite (NEG) Ur Leukocyte Esterase (NEG) Urine RBC (0) /HPF Urine WBC (0-4) /HPF Ur Squamous Epith Cells /LPF Urine Bacteria /LPF Urine Osmolality (373-1093) mosm/kg Acetone, Qual (Negative) COVID-19 ([facility]) (Negative) COVID-19 Clin Com 08/26/21 08/26/21 08/26/21 Range/Units 21:08 21:20 21:20 WBC (4.8-10.8) X10*3/uL RBC (4.60-5.80) X10*6/uL Hgb (14.0-18.0) g/dl Hct (42.0-52.0) % MCV (80.0-98.0) fL MCH (27.0-33.0) pg MCHC (31.0-36.0) g/dl RDW (11.0-16.0) % Plt Count (160-400) X10*3/uL MPV (9.4-12.4) fL Immature Gran % (Auto) (0.0-0.4) % Neut % (Auto) (45-73) % Lymph % (Auto) (20-40) % Swain % (Auto) (2-11) % Eos % (Auto) (0-4) % Baso % (Auto) (0-2) % Lymph # (Auto) (1.2-4.9) X10*3/uL Swain # (Auto) (0.1-1.2) X10*3/uL Eos # (Auto) (0.0-0.4) X10*3/uL Baso # (Auto) (0.0-0.2) X10*3/uL Abs Immat Gran (auto) (0.00-0.03) X10*3/uL Absolute Neuts (auto) (2.0-8.3) x10*3/uL Absolute Nucleated RBC (0.0-0.012) X10*3/uL Nucleated RBC % (auto) (0.0-0.2) /100WBC Sodium 131 L (135-145) mmol/L Potassium 3.6 D (3.3-5.1) mmol/L Chloride 99 (96-108) mmol/L Carbon Dioxide 20 L (22-29) mmol/L Anion Gap 16 (12-20) BUN 20 H (9-16) mg/dL Creatinine 2.56 H (0.5-1.4) mg/dL Estim Creat Clear Calc 28.6 Estimated GFR 26 POC Glucose > 600 H* (60-115) mg/dL Random Glucose 557 H* (60-115) mg/dL Lactic Acid (0.5-2.0) mmol/L Lactic Acid F/U @ 2Hr (0.5-2.0) mmol/L Calcium 8.9 (8.4-10.2) mg/dL Magnesium (1.6-2.6) mg/dL Urine Color YELLOW Urine Appearance CLEAR Urine pH 6.0 (5.0-8.0) Ur Specific [place] 1.010 (1.005-1.025) Urine Protein NEG (NEG-TRACE) MG/DL Urine Glucose (UA) >=1000 H (NEG) MG/DL Urine Ketones 5 (NEG) MG/DL Urine Blood NEG (NEG) Urine Nitrite NEG (NEG) Ur Leukocyte Esterase NEG (NEG) Urine RBC 1-4 (0) /HPF Urine WBC 1-4 (0-4) /HPF Ur Squamous Epith Cells 1+ /LPF Urine Bacteria 1+ /LPF Urine Osmolality (373-1093) mosm/kg Acetone, Qual Negative (Negative) COVID-19 ([facility]) (Negative) COVID-19 Clin Com 08/26/21 08/26/21 08/26/21 Range/Units 21:20 21:20 21:20 WBC (4.8-10.8) X10*3/uL RBC (4.60-5.80) X10*6/uL Hgb (14.0-18.0) g/dl Hct (42.0-52.0) % MCV (80.0-98.0) fL MCH (27.0-33.0) pg MCHC (31.0-36.0) g/dl RDW (11.0-16.0) % Plt Count (160-400) X10*3/uL MPV (9.4-12.4) fL Immature Gran % (Auto) (0.0-0.4) % Neut % (Auto) (45-73) % Lymph % (Auto) (20-40) % Swain % (Auto) (2-11) % Eos % (Auto) (0-4) % Baso % (Auto) (0-2) % Lymph # (Auto) (1.2-4.9) X10*3/uL Swain # (Auto) (0.1-1.2) X10*3/uL Eos # (Auto) (0.0-0.4) X10*3/uL Baso # (Auto) (0.0-0.2) X10*3/uL Abs Immat Gran (auto) (0.00-0.03) X10*3/uL Absolute Neuts (auto) (2.0-8.3) x10*3/uL Absolute Nucleated RBC (0.0-0.012) X10*3/uL Nucleated RBC % (auto) (0.0-0.2) /100WBC Sodium (135-145) mmol/L Potassium (3.3-5.1) mmol/L Chloride (96-108) mmol/L Carbon Dioxide (22-29) mmol/L Anion Gap (12-20) BUN (9-16) mg/dL Creatinine (0.5-1.4) mg/dL Estim Creat Clear Calc Estimated GFR POC Glucose (60-115) mg/dL Random Glucose (60-115) mg/dL Lactic Acid 3.6 H* (0.5-2.0) mmol/L Lactic Acid F/U @ 2Hr (0.5-2.0) mmol/L Calcium (8.4-10.2) mg/dL Magnesium 2.0 (1.6-2.6) mg/dL Urine Color Urine Appearance Urine pH (5.0-8.0) Ur Specific [place] (1.005-1.025) Urine Protein (NEG-TRACE) MG/DL Urine Glucose (UA) (NEG) MG/DL Urine Ketones (NEG) MG/DL Urine Blood (NEG) Urine Nitrite (NEG) Ur Leukocyte Esterase (NEG) Urine RBC (0) /HPF Urine WBC (0-4) /HPF Ur Squamous Epith Cells /LPF Urine Bacteria /LPF Urine Osmolality 583 (373-1093) mosm/kg Acetone, Qual (Negative) COVID-19 ([facility]) (Negative) COVID-19 Clin Com 08/26/21 08/26/21 08/27/21 Range/Units 22:29 22:51 00:08 WBC (4.8-10.8) X10*3/uL RBC (4.60-5.80) X10*6/uL Hgb (14.0-18.0) g/dl Hct (42.0-52.0) % MCV (80.0-98.0) fL MCH (27.0-33.0) pg MCHC (31.0-36.0) g/dl RDW (11.0-16.0) % Plt Count (160-400) X10*3/uL MPV (9.4-12.4) fL Immature Gran % (Auto) (0.0-0.4) % Neut % (Auto) (45-73) % Lymph % (Auto) (20-40) % Swain % (Auto) (2-11) % Eos % (Auto) (0-4) % Baso % (Auto) (0-2) % Lymph # (Auto) (1.2-4.9) X10*3/uL Swain # (Auto) (0.1-1.2) X10*3/uL Eos # (Auto) (0.0-0.4) X10*3/uL Baso # (Auto) (0.0-0.2) X10*3/uL Abs Immat Gran (auto) (0.00-0.03) X10*3/uL Absolute Neuts (auto) (2.0-8.3) x10*3/uL Absolute Nucleated RBC (0.0-0.012) X10*3/uL Nucleated RBC % (auto) (0.0-0.2) /100WBC Sodium 134 L (135-145) mmol/L Potassium 3.9 (3.3-5.1) mmol/L Chloride 103 (96-108) mmol/L Carbon Dioxide 19 L (22-29) mmol/L Anion Gap 16 (12-20) BUN 20 H (9-16) mg/dL Creatinine 2.42 H (0.5-1.4) mg/dL Estim Creat Clear Calc 30.2 Estimated GFR 28 POC Glucose 283 H 256 H (60-115) mg/dL Random Glucose 248 H D (60-115) mg/dL Lactic Acid (0.5-2.0) mmol/L Lactic Acid F/U @ 2Hr (0.5-2.0) mmol/L Calcium 9.1 (8.4-10.2) mg/dL Magnesium (1.6-2.6) mg/dL Urine Color Urine Appearance Urine pH (5.0-8.0) Ur Specific [place] (1.005-1.025) Urine Protein (NEG-TRACE) MG/DL Urine Glucose (UA) (NEG) MG/DL Urine Ketones (NEG) MG/DL Urine Blood (NEG) Urine Nitrite (NEG) Ur Leukocyte Esterase (NEG) Urine RBC (0) /HPF Urine WBC (0-4) /HPF Ur Squamous Epith Cells /LPF Urine Bacteria /LPF Urine Osmolality (373-1093) mosm/kg Acetone, Qual (Negative) COVID-19 ([facility]) (Negative) COVID-19 Clin Com 08/27/21 08/27/21 Range/Units 00:23 00:23 WBC (4.8-10.8) X10*3/uL RBC (4.60-5.80) X10*6/uL Hgb (14.0-18.0) g/dl Hct (42.0-52.0) % MCV (80.0-98.0) fL MCH (27.0-33.0) pg MCHC (31.0-36.0) g/dl RDW (11.0-16.0) % Plt Count (160-400) X10*3/uL MPV (9.4-12.4) fL Immature Gran % (Auto) (0.0-0.4) % Neut % (Auto) (45-73) % Lymph % (Auto) (20-40) % Swain % (Auto) (2-11) % Eos % (Auto) (0-4) % Baso % (Auto) (0-2) % Lymph # (Auto) (1.2-4.9) X10*3/uL Swain # (Auto) (0.1-1.2) X10*3/uL Eos # (Auto) (0.0-0.4) X10*3/uL Baso # (Auto) (0.0-0.2) X10*3/uL Abs Immat Gran (auto) (0.00-0.03) X10*3/uL Absolute Neuts (auto) (2.0-8.3) x10*3/uL Absolute Nucleated RBC (0.0-0.012) X10*3/uL Nucleated RBC % (auto) (0.0-0.2) /100WBC Sodium (135-145) mmol/L Potassium (3.3-5.1) mmol/L Chloride (96-108) mmol/L Carbon Dioxide (22-29) mmol/L Anion Gap (12-20) BUN (9-16) mg/dL Creatinine (0.5-1.4) mg/dL Estim Creat Clear Calc Estimated GFR POC Glucose (60-115) mg/dL Random Glucose (60-115) mg/dL Lactic Acid (0.5-2.0) mmol/L Lactic Acid F/U @ 2Hr 2.1 H* (0.5-2.0) mmol/L Calcium (8.4-10.2) mg/dL Magnesium (1.6-2.6) mg/dL Urine Color Urine Appearance Urine pH (5.0-8.0) Ur Specific [place] (1.005-1.025) Urine Protein (NEG-TRACE) MG/DL Urine Glucose (UA) (NEG) MG/DL Urine Ketones (NEG) MG/DL Urine Blood (NEG) Urine Nitrite (NEG) Ur Leukocyte Esterase (NEG) Urine RBC (0) /HPF Urine WBC (0-4) /HPF Ur Squamous Epith Cells /LPF Urine Bacteria /LPF Urine Osmolality (373-1093) mosm/kg Acetone, Qual (Negative) COVID-19 ([facility]) Negative (Negative) COVID-19 Clin Com See Note <Jess Fallon NP - Last Filed: 08/27/21 01:53> Lab Results 08/26/21 08/26/21 08/26/21 Range/Units 16:52 16:52 19:44 WBC 8.7 (4.8-10.8) X10*3/uL RBC 4.88 (4.60-5.80) X10*6/uL Hgb 14.0 (14.0-18.0) g/dl Hct 41.3 L (42.0-52.0) % MCV 84.6 (80.0-98.0) fL MCH 28.7 (27.0-33.0) pg MCHC 33.9 (31.0-36.0) g/dl RDW 12.5 (11.0-16.0) % Plt Count 284 (160-400) X10*3/uL MPV 11.1 (9.4-12.4) fL Immature Gran % (Auto) 0.3 (0.0-0.4) % Neut % (Auto) 76.5 H (45-73) % Lymph % (Auto) 15.9 L (20-40) % Swain % (Auto) 5.7 (2-11) % Eos % (Auto) 1.0 (0-4) % Baso % (Auto) 0.6 (0-2) % Lymph # (Auto) 1.4 (1.2-4.9) X10*3/uL Swain # (Auto) 0.5 (0.1-1.2) X10*3/uL Eos # (Auto) 0.1 (0.0-0.4) X10*3/uL Baso # (Auto) 0.1 (0.0-0.2) X10*3/uL Abs Immat Gran (auto) 0.03 (0.00-0.03) X10*3/uL Absolute Neuts (auto) 6.7 (2.0-8.3) x10*3/uL Absolute Nucleated RBC 0.000 (0.0-0.012) X10*3/uL Nucleated RBC % (auto) 0.0 (0.0-0.2) /100WBC Sodium 127 L (135-145) mmol/L Potassium 5.2 H (3.3-5.1) mmol/L Chloride 95 L (96-108) mmol/L Carbon Dioxide 22 (22-29) mmol/L Anion Gap 15 (12-20) BUN 20 H (9-16) mg/dL Creatinine 2.63 H (0.5-1.4) mg/dL Estim Creat Clear Calc 27.8 Estimated GFR 25 POC Glucose > 600 H* (60-115) mg/dL Random Glucose 711 H* (60-115) mg/dL Lactic Acid (0.5-2.0) mmol/L Lactic Acid F/U @ 2Hr (0.5-2.0) mmol/L Calcium 9.3 (8.4-10.2) mg/dL Magnesium (1.6-2.6) mg/dL Urine Color Urine Appearance Urine pH (5.0-8.0) Ur Specific [place] (1.005-1.025) Urine Protein (NEG-TRACE) MG/DL Urine Glucose (UA) (NEG) MG/DL Urine Ketones (NEG) MG/DL Urine Blood (NEG) Urine Nitrite (NEG) Ur Leukocyte Esterase (NEG) Urine RBC (0) /HPF Urine WBC (0-4) /HPF Ur Squamous Epith Cells /LPF Urine Bacteria /LPF Urine Osmolality (373-1093) mosm/kg Acetone, Qual (Negative) COVID-19 ([facility]) (Negative) COVID-19 Clin Com 08/26/21 08/26/21 08/26/21 Range/Units 21:08 21:20 21:20 WBC (4.8-10.8) X10*3/uL RBC (4.60-5.80) X10*6/uL Hgb (14.0-18.0) g/dl Hct (42.0-52.0) % MCV (80.0-98.0) fL MCH (27.0-33.0) pg MCHC (31.0-36.0) g/dl RDW (11.0-16.0) % Plt Count (160-400) X10*3/uL MPV (9.4-12.4) fL Immature Gran % (Auto) (0.0-0.4) % Neut % (Auto) (45-73) % Lymph % (Auto) (20-40) % [place] % (Auto) (2-11) % Eos % (Auto) (0-4) % Baso % (Auto) (0-2) % Lymph # (Auto) (1.2-4.9) X10*3/uL [place] # (Auto) (0.1-1.2) X10*3/uL Eos # (Auto) (0.0-0.4) X10*3/uL Baso # (Auto) (0.0-0.2) X10*3/uL Abs Immat Gran (auto) (0.00-0.03) X10*3/uL Absolute Neuts (auto) (2.0-8.3) x10*3/uL Absolute Nucleated RBC (0.0-0.012) X10*3/uL Nucleated RBC % (auto) (0.0-0.2) /100WBC Sodium 131 L (135-145) mmol/L Potassium 3.6 D (3.3-5.1) mmol/L Chloride 99 (96-108) mmol/L Carbon Dioxide 20 L (22-29) mmol/L Anion Gap 16 (12-20) BUN 20 H (9-16) mg/dL Creatinine 2.56 H (0.5-1.4) mg/dL Estim Creat Clear Calc 28.6 Estimated GFR 26 POC Glucose > 600 H* (60-115) mg/dL Random Glucose 557 H* (60-115) mg/dL Lactic Acid (0.5-2.0) mmol/L Lactic Acid F/U @ 2Hr (0.5-2.0) mmol/L Calcium 8.9 (8.4-10.2) mg/dL Magnesium (1.6-2.6) mg/dL Urine Color YELLOW Urine Appearance CLEAR Urine pH 6.0 (5.0-8.0) Ur Specific [place] 1.010 (1.005-1.025) Urine Protein NEG (NEG-TRACE) MG/DL Urine Glucose (UA) >=1000 H (NEG) MG/DL Urine Ketones 5 (NEG) MG/DL Urine Blood NEG (NEG) Urine Nitrite NEG (NEG) Ur Leukocyte Esterase NEG (NEG) Urine RBC 1-4 (0) /HPF Urine WBC 1-4 (0-4) /HPF Ur Squamous Epith Cells 1+ /LPF Urine Bacteria 1+ /LPF Urine Osmolality (373-1093) mosm/kg Acetone, Qual Negative (Negative) COVID-19 ([facility]) (Negative) COVID-19 Clin Com 08/26/21 08/26/21 08/26/21 Range/Units 21:20 21:20 21:20 WBC (4.8-10.8) X10*3/uL RBC (4.60-5.80) X10*6/uL Hgb (14.0-18.0) g/dl Hct (42.0-52.0) % MCV (80.0-98.0) fL MCH (27.0-33.0) pg MCHC (31.0-36.0) g/dl RDW (11.0-16.0) % Plt Count (160-400) X10*3/uL MPV (9.4-12.4) fL Immature Gran % (Auto) (0.0-0.4) % Neut % (Auto) (45-73) % Lymph % (Auto) (20-40) % [place] % (Auto) (2-11) % Eos % (Auto) (0-4) % Baso % (Auto) (0-2) % Lymph # (Auto) (1.2-4.9) X10*3/uL [place] # (Auto) (0.1-1.2) X10*3/uL Eos # (Auto) (0.0-0.4) X10*3/uL Baso # (Auto) (0.0-0.2) X10*3/uL Abs Immat Gran (auto) (0.00-0.03) X10*3/uL Absolute Neuts (auto) (2.0-8.3) x10*3/uL Absolute Nucleated RBC (0.0-0.012) X10*3/uL Nucleated RBC % (auto) (0.0-0.2) /100WBC Sodium (135-145) mmol/L Potassium (3.3-5.1) mmol/L Chloride (96-108) mmol/L Carbon Dioxide (22-29) mmol/L Anion Gap (12-20) BUN (9-16) mg/dL Creatinine (0.5-1.4) mg/dL Estim Creat Clear Calc Estimated GFR POC Glucose (60-115) mg/dL Random Glucose (60-115) mg/dL Lactic Acid 3.6 H* (0.5-2.0) mmol/L Lactic Acid F/U @ 2Hr (0.5-2.0) mmol/L Calcium (8.4-10.2) mg/dL Magnesium 2.0 (1.6-2.6) mg/dL Urine Color Urine Appearance Urine pH (5.0-8.0) Ur Specific [place] (1.005-1.025) Urine Protein (NEG-TRACE) MG/DL Urine Glucose (UA) (NEG) MG/DL Urine Ketones (NEG) MG/DL Urine Blood (NEG) Urine Nitrite (NEG) Ur Leukocyte Esterase (NEG) Urine RBC (0) /HPF Urine WBC (0-4) /HPF Ur Squamous Epith Cells /LPF Urine Bacteria /LPF Urine Osmolality 583 (373-1093) mosm/kg Acetone, Qual (Negative) COVID-19 ([facility]) (Negative) COVID-19 Clin Com 08/26/21 08/26/21 08/27/21 Range/Units 22:29 22:51 00:08 WBC (4.8-10.8) X10*3/uL RBC (4.60-5.80) X10*6/uL Hgb (14.0-18.0) g/dl Hct (42.0-52.0) % MCV (80.0-98.0) fL MCH (27.0-33.0) pg MCHC (31.0-36.0) g/dl RDW (11.0-16.0) % Plt Count (160-400) X10*3/uL MPV (9.4-12.4) fL Immature Gran % (Auto) (0.0-0.4) % Neut % (Auto) (45-73) % Lymph % (Auto) (20-40) % [place] % (Auto) (2-11) % Eos % (Auto) (0-4) % Baso % (Auto) (0-2) % Lymph # (Auto) (1.2-4.9) X10*3/uL [place] # (Auto) (0.1-1.2) X10*3/uL Eos # (Auto) (0.0-0.4) X10*3/uL Baso # (Auto) (0.0-0.2) X10*3/uL Abs Immat Gran (auto) (0.00-0.03) X10*3/uL Absolute Neuts (auto) (2.0-8.3) x10*3/uL Absolute Nucleated RBC (0.0-0.012) X10*3/uL Nucleated RBC % (auto) (0.0-0.2) /100WBC Sodium 134 L (135-145) mmol/L Potassium 3.9 (3.3-5.1) mmol/L Chloride 103 (96-108) mmol/L Carbon Dioxide 19 L (22-29) mmol/L Anion Gap 16 (12-20) BUN 20 H (9-16) mg/dL Creatinine 2.42 H (0.5-1.4) mg/dL Estim Creat Clear Calc 30.2 Estimated GFR 28 POC Glucose 283 H 256 H (60-115) mg/dL Random Glucose 248 H D (60-115) mg/dL Lactic Acid (0.5-2.0) mmol/L Lactic Acid F/U @ 2Hr (0.5-2.0) mmol/L Calcium 9.1 (8.4-10.2) mg/dL Magnesium (1.6-2.6) mg/dL Urine Color Urine Appearance Urine pH (5.0-8.0) Ur Specific [place] (1.005-1.025) Urine Protein (NEG-TRACE) MG/DL Urine Glucose (UA) (NEG) MG/DL Urine Ketones (NEG) MG/DL Urine Blood (NEG) Urine Nitrite (NEG) Ur Leukocyte Esterase (NEG) Urine RBC (0) /HPF Urine WBC (0-4) /HPF Ur Squamous Epith Cells /LPF Urine Bacteria /LPF Urine Osmolality (373-1093) mosm/kg Acetone, Qual (Negative) COVID-19 ([facility]) (Negative) COVID-19 Clin Com 08/27/21 08/27/21 Range/Units 00:23 00:23 WBC (4.8-10.8) X10*3/uL RBC (4.60-5.80) X10*6/uL Hgb (14.0-18.0) g/dl Hct (42.0-52.0) % MCV (80.0-98.0) fL MCH (27.0-33.0) pg MCHC (31.0-36.0) g/dl RDW (11.0-16.0) % Plt Count (160-400) X10*3/uL MPV (9.4-12.4) fL Immature Gran % (Auto) (0.0-0.4) % Neut % (Auto) (45-73) % Lymph % (Auto) (20-40) % [place] % (Auto) (2-11) % Eos % (Auto) (0-4) % Baso % (Auto) (0-2) % Lymph # (Auto) (1.2-4.9) X10*3/uL [place] # (Auto) (0.1-1.2) X10*3/uL Eos # (Auto) (0.0-0.4) X10*3/uL Baso # (Auto) (0.0-0.2) X10*3/uL Abs Immat Gran (auto) (0.00-0.03) X10*3/uL Absolute Neuts (auto) (2.0-8.3) x10*3/uL Absolute Nucleated RBC (0.0-0.012) X10*3/uL Nucleated RBC % (auto) (0.0-0.2) /100WBC Sodium (135-145) mmol/L Potassium (3.3-5.1) mmol/L Chloride (96-108) mmol/L Carbon Dioxide (22-29) mmol/L Anion Gap (12-20) BUN (9-16) mg/dL Creatinine (0.5-1.4) mg/dL Estim Creat Clear Calc Estimated GFR POC Glucose (60-115) mg/dL Random Glucose (60-115) mg/dL Lactic Acid (0.5-2.0) mmol/L Lactic Acid F/U @ 2Hr 2.1 H* (0.5-2.0) mmol/L Calcium (8.4-10.2) mg/dL Magnesium (1.6-2.6) mg/dL Urine Color Urine Appearance Urine pH (5.0-8.0) Ur Specific [place] (1.005-1.025) Urine Protein (NEG-TRACE) MG/DL Urine Glucose (UA) (NEG) MG/DL Urine Ketones (NEG) MG/DL Urine Blood (NEG) Urine Nitrite (NEG) Ur Leukocyte Esterase (NEG) Urine RBC (0) /HPF Urine WBC (0-4) /HPF Ur Squamous Epith Cells /LPF Urine Bacteria /LPF Urine Osmolality (373-1093) mosm/kg Acetone, Qual (Negative) COVID-19 ([facility]) Negative (Negative) COVID-19 Clin Com See Note <Any Daly MD - Last Filed: 08/27/21 01:58> Imaging Data Chest x-ray: Attestation: I personally reviewed and interpreted this imaging study as follows: <Jess Fallon NP - Last Filed: 08/27/21 01:53> Radiologist's impression: EXAMINATION: XR CHEST CLINICAL INFORMATION: Cough COMPARISON: 02/20/2021 TECHNIQUE: Frontal view of the chest was obtained. FINDINGS: Lung volumes are symmetric. No focal consolidation is seen. No evidence of pneumothorax, pleural effusion, or pulmonary edema. The cardiomediastinal contour is unremarkable. No acute osseous findings are seen. XR/XR chest 1V IMPRESSION: No acute cardiopulmonary findings. ? <Jess Fallon NP - Last Filed: 08/27/21 01:53> ECG Data Attestation: I personally reviewed and interpreted this ECG as follows: <Jess juarez NP - Last Filed: 08/27/21 01:53> Prior ECG tracings: available for review <Jess Fallon NP - Last Filed: 08/27/21 01:53> Interpretation: Vent. rate 89 BPM SD interval 126 ms QRS duration 96 ms QT/QTc 374/455 ms P-R-T axes 46 -46 100 Normal sinus rhythm Left anterior fascicular block T wave abnormality, consider lateral ischemia Abnormal ECG When compared with ECG of 08-FEB-2021 01:51, QRS axis Shifted left <Jess Fallon NP - Last Filed: 08/27/21 01:53> Critical Care Time Critical Care Time Critical Care Time: Yes <Jess Fallon NP - Last Filed: 08/27/21 01:53> Total Critical Care Time: 45 <Jess Fallon NP - Last Filed: 08/27/21 01:53> Attestation: I have personally provided critical care time exclusive of time spent on separately billable procedures. Time includes review of laboratory data, radiology results, discussion with consultants, and monitoring for potential decompensation. Interventions were performed as documented. <Jess Fallon NP - Last Filed: 08/27/21 01:53> Discharge Plan Discharge Clinical Impression: Hyperglycemia <Jess Fallon NP - Last Filed: 08/27/21 01:53> Patient Disposition: Home, Self-Care <Jess Fallon NP - Last Filed: 08/27/21 01:53> Instructions: Diabetic Hyperglycemia (ED) <Jess Fallon NP - Last Filed: 08/27/21 01:53> Additional Instructions: Se le evalu? por niveles elevados de glucosa en chapo. Le dimos insulina intravenosa para reducir aldrich nivel de az?car en la chapo. Le dimos aldrich dosis vespertina de Lantus a las 20 unidades. Tambi?n dimos los 2 L de l?quido de Ringer lactato. Le dimos medicamentos de cloruro de potasio para prevenir niveles bajos de potasio. Utilice aldrich escala m?himanshu odalis se indica. Seguimiento con el m?dico de atenci?n primaria esta semana. Pablo por elegir grao departamento de emergencias para aldrich evaluaci?n. Por favor, zbigniew un seguimiento con el m?dico de atenci?n primaria seg?n sea necesario. Regrese al departamento de emergencias por cualquier s?ntoma nuevo, preocupante o que empeore. You were evaluated for elevated blood glucose. We gave you IV insulin to reduce your blood sugar. We gave you your evening dose of Lantus at 20 units. We also gave the 2 L of lactated Ringer's fluid. We gave you potassium chloride medications to prevent low potassium. Please use your sliding scale as directed. Follow-up with primary care physician this week. Thank you for choosing this emergency department for evaluation. Please follow-up with primary care physician as needed. Return to the emergency department for any new, concerning, or worsening symptoms. <Jess Fallon NP - Last Filed: 08/27/21 01:53> Prescriptions: No Action albuterol sulfate 2.5 mg /3 mL (0.083 %) solution for nebulization 1 amp inhalation TID 0RF atorvastatin 10 mg tablet 10 mg PO DAILY 0RF prednisone 20 mg tablet 20 mg PO DAILY 0RF amlodipine 5 mg tablet 5 mg PO DAILY 0RF omeprazole 40 mg capsule,delayed release(DR/EC) 40 mg PO DAILY 0RF aspirin 81 mg tablet,delayed release (DR/EC) 81 mg PO DAILY 0RF tramadol 50 mg tablet 50 mg PO Q8H PRN (Reason: moderate pain) 0RF calcitriol 0.5 mcg capsule 0.5 mcg PO DAILY 0RF lidocaine [Lidoderm] 5 % adhesive patch,medicated 1 patch topical DAILY 0RF mupirocin 2 % ointment 1 appl topical BID 0RF ergocalciferol (vitamin D2) 1,250 mcg (50,000 unit) capsule 1 cap PO ALDRICH@1000 0RF albuterol sulfate [ProAir HFA] 90 mcg/actuation HFA aerosol inhaler 1 puff PO Q4H PRN (Reason: wheezing) 0RF fluticasone propionate 50 mcg/actuation spray,suspension 2 spray intranasal DAILY 0RF tacrolimus 1 mg capsule 3 mg PO DAILY 0RF tacrolimus 1 mg capsule 2 mg PO BEDTIME 0RF metoclopramide HCl 10 mg tablet 10 mg PO BEDTIME 0RF insulin lispro [Humalog KwikPen Insulin] 100 unit/mL insulin pen 0 - 30 unit subcut DAILY 0RF duloxetine 20 mg capsule,delayed release(DR/EC) 20 mg PO DAILY 0RF cholecalciferol (vitamin D3) 1,250 mcg (50,000 unit) capsule 1 cap PO QWEEK 0RF Lantus Solostar U-100 Insulin 100 unit/mL (3 mL) insulin pen 28 unit subcut DAILY 0RF <Jess Fallon NP - Last Filed: 08/27/21 01:53>
[2021-08-26 19:47] VITALS: BP 137/86; PULSE 99; RESP 14; TEMP 36.7; O2SAT 100
[2021-08-26 19:53] LABS: Glucose, Whole Blood > 600 mg/dL (60-115)
[2021-08-26] MEDS: Insulin Regular, Human 100 UNIT/ML 3 ML VIAL 10 UNIT IVPUSH (20:56)
[2021-08-26] MEDS: Lactated Ringers 2,000 ML 999 ML IV (21:02)
[2021-08-26] MEDS: Insulin Regular/NS 100 UNIT/100 ML PLAST..BAG IVCONT (21:11)
[2021-08-26 21:41] LABS: Appearance Urine CLEAR; Color Urine YELLOW; Glucose Urine UA >=1000 MG/DL (NEG); Leukocyte Esterase Urine NEG (NEG); Nitrite Urine NEG (NEG); Urine Blood NEG (NEG); Urine Ketones 5 MG/DL (NEG); Urine Protein NEG (NEG-TRACE)
[2021-08-26 22:10] LABS: Osmolality Urine 583 mosm/kg (373-1093)
[2021-08-26 22:15] LABS: Acetone, serum QL Negative (Negative)
[2021-08-26 22:18] LABS: Lactic Acid 3.6 mmol/L (0.5-2.0)
[2021-08-26 22:19] LABS: Anion Gap 16 (12-20); Bacteria Urine 1+ /LPF; Blood Urea Nitrogen 20 mg/dL (9-16); Calcium 8.9 mg/dL (8.4-10.2); Carbon Dioxide 20 mmol/L (22-29); Chloride 99 mmol/L (96-108); Creatinine Clr Calc Pharmacy 28.6; Estimated Glomerular Filt Rate 26; Glucose Random 557 mg/dL (60-115); Potassium 3.6 mmol/L (3.3-5.1); Sodium 131 mmol/L (135-145); Squamous Epithelial Cell Urine 1+ /LPF
--- NOTE | 2021-08-26 22:40 | ECG_ITS ---
Test Reason : CHEST PAIN Blood Pressure : / mmHG Vent. Rate : 089 BPM Atrial Rate : 089 BPM P-R Int : 126 ms QRS Dur : 096 ms QT Int : 374 ms P-R-T Axes : 046 -46 100 degrees QTc Int : 455 ms Normal sinus rhythm Left anterior fascicular block T wave abnormality, consider lateral ischemia Abnormal ECG When compared with ECG of 08-FEB-2021 01:51, QRS axis Shifted left Referred By: Any Daly Electronically Signed By:ILDEFONSO LEIJA MD
--- NOTE | 2021-08-26 22:42 | PC.NURSE ---
pt c/o cramping. BS obtained 283, PA AWARE ABD IRDERED INSULIN DRIP TO STOP.
[2021-08-26 22:48] LABS: Glucose, Whole Blood > 600 mg/dL (60-115)
[2021-08-26 22:48] LABS: Glucose, Whole Blood 283 mg/dL (60-115)
--- NOTE | 2021-08-26 22:55 | PC.NURSE ---
IN ROOM PLACING A LINE BY U/S GUIDANCE. PT TOLERATING WELL. AWAITING TO HANG k+ PER EMAR. RESPIRATIONS EASY, N/L. SKIN W/D. PT REMAINS ON MONITOR.
[2021-08-26 23:12] LABS: Anion Gap 16 (12-20); Blood Urea Nitrogen 20 mg/dL (9-16); Calcium 9.1 mg/dL (8.4-10.2); Carbon Dioxide 19 mmol/L (22-29); Chloride 103 mmol/L (96-108); Creatinine Clr Calc Pharmacy 30.2; Estimated Glomerular Filt Rate 28; Glucose Random 248 mg/dL (60-115); Potassium 3.9 mmol/L (3.3-5.1); Sodium 134 mmol/L (135-145)
[2021-08-26 23:37] LABS: Reflex Lactate? Lactic Acid Added
[2021-08-27] VITALS: BP 126/83; PULSE 84; RESP 12; TEMP 36.8; O2SAT 99
[2021-08-27 00:13] LABS: Glucose, Whole Blood 256 mg/dL (60-115)
[2021-08-27 00:54] LABS: ~Lactic Acid-LAB USE ONLY 2.1 mmol/L (0.5-2.0)
[2021-08-27 00:55] LABS: COVID-19 Test Negative (Negative)
[2021-08-27] MEDS: Potassium Chloride Packet 20 MEQ PACKET 40 MEQ PO (01:10)
[2021-08-27] MEDS: Insulin Glargine,Hum.rec.anlog 100 UNIT/ML 10 ML VIAL 20 UNIT SUBCUT (01:10)
[2021-08-27 01:56] LABS: Glucose, Whole Blood 295 mg/dL (60-115)
[2021-08-27 01:58] VITALS: BP 122/69; PULSE 77; RESP 18; O2SAT 100
[2021-08-27 02:30] LABS: Reflex Lactate? 2 Y
== END 2021-08-27 03:33 | disposition home or self-care (01) ==
PROVIDERS: Nurse Practitioner Family; Student in an Organized Health Care Education/Training Program; Emergency Provider Emergency Medicine Emergency Medical Services
DX: E11.65 Type 2 diabetes mellitus with hyperglycemia (principal); I10 Essential (primary) hypertension; Z79.4 Long term (current) use of insulin; Z79.82 Long term (current) use of aspirin; Z79.02 Long term (current) use of antithrombotics/antiplatelets; Z20.822 Contact with and (suspected) exposure to COVID-19
CPT/HCPCS: 36415; 71045; 80048; 81001; 81003; 82009; 82947; 83605; 83735; 83935; 85025; 87635; 93005; 96365; 96366; 96375; 99284; 99285; 99291

== ENCOUNTER 2021-09-12 08:25 | Outpatient (REF) | payer MEDICAID, SELFPAY ==
--- NOTE | ~2021-09-12 | XR_ITS ---
EXAMINATION: XR ANKLE, RIGHT CLINICAL INFORMATION: Localized swelling, mass and lump. COMPARISON: None TECHNIQUE: AP, lateral, and mortise views of the right ankle. FINDINGS: The ankle mortise and subtalar joints are normal. There is no visible acute fracture or dislocation. There is dorsal intertarsal spurring. A small retrocalcaneal enthesophyte is seen. There are vascular calcifications present. XR/XR ankle RT min 3V IMPRESSION: No acute fracture, dislocation or subluxation. Mild dorsal the intertarsal degenerative spurring.
== END 2021-09-12 08:26 | disposition home or self-care (01) ==
LOC: HO.XRAY 08:25
PROVIDERS: PCP Family Medicine; Visit Provider Family Medicine
DX: R22.9 Localized swelling, mass and lump, unspecified (principal)
CPT/HCPCS: 73610

== ENCOUNTER → 2021-12-08 10:29 | Outpatient (BNVA) | payer MEDICAID, SELFPAY | PROVIDERS: PCP Family Medicine; Visit Provider Surgery | DX: M79.671 Pain in right foot (principal) | CPT/HCPCS: 99202 ==

== ENCOUNTER 2021-12-11 15:27 | Emergency (ER) | payer MEDICAID, SELFPAY ==
--- NOTE | ~2021-12-11 | CT_ITS ---
EXAMINATION: CT HEAD WITHOUT CONTRAST CLINICAL INFORMATION: Headache vision changes COMPARISON: CT 05/15/2018 TECHNIQUE: Contiguous axial imaging was performed from the skull base to vertex without intravenous administration of contrast. This CT examination was performed using dose optimization techniques as appropriate, variously including the following: *Automated exposure control *Adjustment of mA and/or kV according to patient size (this includes techniques or standardized protocols for targeted exams where dose is matched to indication/reason for exam; i.e. extremities or head) *Use of iterative reconstruction technique DLP: 660 mGy-cm FINDINGS: There is no evidence of acute intracranial hemorrhage or territorial infarction. No abnormal mass effect or midline shift is seen. [place] to white matter differentiation is well preserved. No extra-axial fluid collections are identified. Mild nonspecific periventricular and deep white matter hypodensities. No acute calvarial fracture.. The mastoid air cells and visualized portions of the paranasal sinuses are well aerated. CT/CT head/brain wo con IMPRESSION: No CT evidence of acute intracranial hemorrhage or acute territorial infarction..
[2021-12-11 15:46] VITALS: BP 139/84; PULSE 101; RESP 15; TEMP 36.3; O2SAT 99; BMI 27.6
[2021-12-11 16:23] LABS: Glucose, Whole Blood 536 mg/dL (60-115)
[2021-12-11 16:23] LABS: MANUAL DIFF FLAG NO
--- NOTE | 2021-12-11 16:28 | PC.NURSE ---
pt a&o, able to ambulate with a steady gait when placing pt in room.
--- NOTE | 2021-12-11 16:29 | ED_ITS ---
HPI - General Adult General Chief complaint: General Medical Stated complaint: diabetes high Time Seen by Provider: 12/11/21 16:29 Source: patient Mode of arrival: ambulatory Limitations: no limitations History of Present Illness HPI narrative: 56-year-old male past medical history of diabetes, HTN presenting to the emergency department complaints of hyperglycemia home. Patient tells me that he is currently taking Humalog and Lantus daily and his sugars despite insulin has been in the high 400s and mid 500s. Patient tells me he is not on any p.o. medication. He tells me this has not happened to him before. He also has vague complaints of a headache to the occipital area and slight blurred vision. Patie nt denies dietary changes. He denies dizziness, chest pain, shortness of breath, nausea, vomiting, diarrhea, changes in urination, increased thirst. Unsure if he has ever had DKA or HHS. Onset (ago): day(s) (1) Location: head Radiation: non-radiation Severity: moderate Quality: aching Relieving factors: none Exacerbating factors: none Associated symptoms: denies other symptoms Treatments prior to arrival: none Related Data Home Medications Medication Instructions Recorded Confirmed albuterol sulfate 1 amp inhalation TID PRN 08/26/21 12/11/21 Respiratory Distress albuterol sulfate 90 mcg/actuation 1 puff PO Q4H PRN wheezing 08/26/21 12/11/21 aerosol inhaler (ProAir HFA) amlodipine 5 mg tablet 5 mg PO DAILY 08/26/21 12/11/21 aspirin 81 mg tablet,delayed 81 mg PO DAILY 08/26/21 12/11/21 release atorvastatin 10 mg tablet 10 mg PO DAILY 08/26/21 12/11/21 calcitriol 0.5 mcg capsule 0.5 mcg PO DAILY 08/26/21 12/11/21 cholecalciferol (vitamin D3) 1,250 1 cap PO SA@1000 08/26/21 12/11/21 mcg (50,000 unit) capsule duloxetine 20 mg capsule,delayed 20 mg PO DAILY 08/26/21 12/11/21 release fluticasone propionate 50 2 spray intranasal DAILY 08/26/21 12/11/21 mcg/actuation nasal spray,suspension insulin glargine 100 unit/mL (3 44 unit subcut BEDTIME 08/26/21 12/11/21 mL) subcutaneous pen (Lantus Solostar U-100 Insulin) insulin lispro 100 unit/mL 10 unit subcut TIDWM 08/26/21 12/11/21 subcutaneous pen (Humalog KwikPen (U-100) Insulin) lidocaine 5 % topical patch 1 patch topical DAILY 08/26/21 12/11/21 (Lidoderm) metoclopramide HCl 10 mg tablet 10 mg PO BEDTIME 08/26/21 12/11/21 mupirocin 2 % topical ointment 1 appl topical TID 08/26/21 12/11/21 tacrolimus 1 mg capsule, 2 mg PO BEDTIME 08/26/21 12/11/21 immediate-release tacrolimus 1 mg capsule, 2 mg PO DAILY 08/26/21 12/11/21 immediate-release tramadol 50 mg tablet 50 mg PO Q8H PRN moderate pain 08/26/21 12/11/21 acetaminophen 500 mg tablet 2 tab PO Q8H PRN Pain 12/11/21 12/11/21 diclofenac sodium 1 % topical gel 2 g topical QID PRN Pain 12/11/21 12/11/21 famotidine 40 mg tablet 40 mg PO BEDTIME 12/11/21 12/11/21 gabapentin 100 mg capsule 100 mg PO BEDTIME 12/11/21 12/11/21 loperamide 2 mg tablet 2 mg PO Q6H PRN Diarrhea 12/11/21 12/11/21 ondansetron 4 mg disintegrating 8 mg PO BID PRN Nausea 12/11/21 12/11/21 tablet pantoprazole 40 mg tablet,delayed 40 mg PO BID 12/11/21 12/11/21 release prednisone 10 mg tablet 10 mg PO DAILY 12/11/21 12/11/21 Allergies Allergy/AdvReac Type Severity Reaction Status Date / Time hydromorphone [From DILAUDID] Allergy Mild ITCHINESS Verified 12/08/21 10:45 diphenhydramine Allergy Unknown UNK Verified 12/08/21 10:45 [From BENADRYL] Review of Systems Review of Systems: Constitutional : No Weight loss, No Fever, No Chills, No Fatigue, No Malaise ENT/Mouth : No sore throat, No Rhinorrhea Eyes: No Eye Pain, No Swelling, No Redness Cardiovascular : No Chest Pain, No SOB, No Dyspnea on Exertion, No Orthopnea, No Edema, No Palpitations Respiratory : No Cough, No Sputum, No Wheezing Gastrointestinal : No Nausea, No Vomiting, No Diarrhea, No Constipation, No ab dominal Pain, No Hematochezia, No Melena Genitourinary : No Dysuria, No Urinary Frequency, No Hematuria, Musculoskeletal : No joint pain, No Myalgias, No Joint Swelling Skin : No Skin Lesions, No rash Neuro : No Weakness, No Numbness, No Dizziness, + Headache Psych : No Anxiety/Panic, No Depression All other systems reviewed and are negative Yes all other systems are reviewed and are negative [facility] Past Medical History Attestation statement: The following information was validated with the patient. Source: old records reviewed and nursing notes reviewed Medical History Diabetes HTN (hypertension) Surgical History H/O arteriovenostomy for renal dialysis Social History Social History Alcohol intake: never Patient Tobacco Use Status: Never used Tobacco Use of substances other than those prescribed or required for medical reasons: No Advance Directives: No Advance Directives Information Provided: No Physical Exam ED Vital Signs: Vital Signs - 24 hr 12/11/21 15:46 12/11/21 17:18 12/11/21 18:30 Temperature 97.3 F 98.1 F Pulse Rate 101 H 80 71 Respiratory Rate 15 18 Blood Pressure 139/84 166/108 H 174/104 H Pulse Oximetry 99 100 Oxygen Delivery Method Room Air Room Air 12/11/21 19:07 12/11/21 20:53 Temperature Pulse Rate 73 77 Respiratory Rate 12 20 Blood Pressure 165/102 H 156/96 H Pulse Oximetry 99 100 Oxygen Delivery Method Room Air Room Air BMI result Body Mass Index 27.6 Patient noted to be slightly tachycardic however no other vital abnormalities. Appearance: Alert.? Oriented X3.? No acute distress.? Head: Normocephalic, atraumatic, no step-offs or deformities Eyes: Pupils equal, round and reactive to light.? ENT: Pharynx normal.? Neck: Normal inspection.? Neck supple.? CVS: Normal heart rate and rhythm.? Pulses normal.? Respiratory: No respiratory distress.? Breath sounds normal.? Abdomen: Soft and nontender.? Skin: Skin warm and dry.? Normal skin color.? Normal skin turgor.? Extremities: No lower extremity edema.? No calf ttp. 5/5 strength to bilateral upper and lower extremities Neuro: Oriented X 3.? No motor deficit.? No sensory deficit. CN 2-12 intact Course Reevaluation(s) Reevaluation #1: Patient has a slight leukocytosis likely secondary to dehydration, patient's chemistries noted to be 126, will receive normal saline and laboratory studies will be repeated, patient also is noted to have an acute on chronic kidney in jury BUN 29 creatinine 3.15, random glucose 558, patient will receive hydration and insulin after do DKA is ruled out. Time: 16:52 Reevaluation #2: To note based off patients labs corrected sodium 133( quiñonez) and 137 ( bella). VBG slightly acidotic, pressure high gave his home meds. Head CT no acute findings. Unlikley patient is in DKA or HHS Time: 19:32 Reevaluation #3: Patient's acute kidney injury improved after fluids, sodium now 132, glucose is down trending to 279, patient's symptoms improved. At this time patient will be discharged home with follow-up with PCP, advised him to check his blood pressure and his point of care sent home unsure abuse with his PCP as he may require adjustments to medications. At this time patient will be discharged. Strict return precautions are outlined on his discharge Time: 21:19 Medical Decision Making [facility] Narrative Medical decision making narrative: 1640 56-year-old male presents for evaluation of hyperglycemia times a day despite insulin at home. Also reports headache and blurred vision. Patient is not on blood thinners, no head trauma. Physical examination benign Plan at this time is to obtain CBC, CMP, acetone, VBG, urine. Will rule out electrolyte abnormalities, HHS, DKA. Headache likely secondary to uncontrolled hyperglycemia however very low suspicion for ICH. Medical Records Medical records reviewed: Yes I reviewed the patient's medical records. Lab Data Lab results reviewed: Yes I reviewed the patient's lab results. Result diagrams: 12/11/21 16:17 12/11/21 20:36 Labs: Lab Results 12/11/21 12/11/21 12/11/21 Range/Units 15:54 16:04 16:04 WBC (4.8-10.8) X10*3/uL RBC (4.60-5.80) X10*6/uL Hgb (14.0-18.0) g/dl Hct (42.0-52.0) % MCV (80.0-98.0) fL MCH (27.0-33.0) pg MCHC (31.0-36.0) g/dl RDW (11.0-16.0) % Plt Count (160-400) X10*3/uL MPV (9.4-12.4) fL Immature Gran % (Auto) (0.0-0.4) % Neut % (Auto) (45-73) % Lymph % (Auto) (20-40) % [place] % (Auto) (2-11) % Eos % (Auto) (0-4) % Baso % (Auto) (0-2) % Lymph # (Auto) (1.2-4.9) X10*3/uL [place] # (Auto) (0.1-1.2) X10*3/uL Eos # (Auto) (0.0-0.4) X10*3/uL Baso # (Auto) (0.0-0.2) X10*3/uL Abs Immat Gran (auto) (0.00-0.03) X10*3/uL Absolute Neuts (auto) (2.0-8.3) x10*3/uL Absolute Nucleated RBC (0.0-0.012) X10*3/uL Nucleated RBC % (auto) (0.0-0.2) /100WBC VBG pH (7.32-7.43) VBG pCO2 mmHg VBG pO2 mmHg VBG HCO3 (22-26) mmol/L VBG O2 Saturation % VBG Base Excess mmol/L Sodium (135-145) mmol/L Potassium (3.3-5.1) mmol/L Chloride (96-108) mmol/L Carbon Dioxide (22-29) mmol/L Anion Gap (12-20) BUN (9-16) mg/dL Creatinine (0.5-1.4) mg/dL Estim Creat Clear Calc Estimated GFR POC Glucose 536 H* (60-115) mg/dL Random Glucose (60-115) mg/dL Calcium (8.4-10.2) mg/dL Total Bilirubin (0.0-1.0) mg/dL Direct Bilirubin (0.0-0.5) mg/dL AST (5-37) U/L ALT (0-40) U/L Alkaline Phosphatase (39-117) U/L Total Protein (6.5-8.0) g/dL Albumin (3.5-5.0) g/dL Lipase (8-78) U/L Urine Color Urine Appearance Urine pH (5.0-8.0) Ur Specific [place] (1.005-1.025) Urine Protein (NEG-TRACE) MG/DL Urine Glucose (UA) (NEG) MG/DL Urine Ketones (NEG) MG/DL Urine Blood (NEG) Urine Nitrite (NEG) Ur Leukocyte Esterase (NEG) Urine RBC (0) /HPF Urine WBC (0-4) /HPF Ur Squamous Epith Cells /LPF Ur Renal Epithelial Cell /LPF Amorphous Sediment /LPF Urine Bacteria /LPF Granular Casts /LPF Urine Mucus /LPF Acetone, Qual (Negative) COVID-19 (KEYSHAWN) Negative (Negative) COVID-19 Clin Com See Note Influenza Type A (EVELIO) Negative (Negative) Influenza Type B (EVELIO) Negative (Negative) Influenza A & B Note See Note 12/11/21 12/11/21 12/11/21 Range/Units 16:17 16:17 16:17 WBC 10.9 H (4.8-10.8) X10*3/uL RBC 5.03 (4.60-5.80) X10*6/uL Hgb 14.1 (14.0-18.0) g/dl Hct 41.2 L (42.0-52.0) % MCV 81.9 (80.0-98.0) fL MCH 28.0 (27.0-33.0) pg MCHC 34.2 (31.0-36.0) g/dl RDW 12.9 (11.0-16.0) % Plt Count 291 (160-400) X10*3/uL MPV 11.1 (9.4-12.4) fL Immature Gran % (Auto) 0.6 H (0.0-0.4) % Neut % (Auto) 88.3 H (45-73) % Lymph % (Auto) 5.9 L (20-40) % [place] % (Auto) 5.0 (2-11) % Eos % (Auto) 0.0 (0-4) % Baso % (Auto) 0.2 (0-2) % Lymph # (Auto) 0.6 L (1.2-4.9) X10*3/uL [place] # (Auto) 0.6 (0.1-1.2) X10*3/uL Eos # (Auto) 0.0 (0.0-0.4) X10*3/uL Baso # (Auto) 0.0 (0.0-0.2) X10*3/uL Abs Immat Gran (auto) 0.07 H (0.00-0.03) X10*3/uL Absolute Neuts (auto) 9.7 H (2.0-8.3) x10*3/uL Absolute Nucleated RBC 0.000 (0.0-0.012) X10*3/uL Nucleated RBC % (auto) 0.0 (0.0-0.2) /100WBC VBG pH (7.32-7.43) VBG pCO2 mmHg VBG pO2 mmHg VBG HCO3 (22-26) mmol/L VBG O2 Saturation % VBG Base Excess mmol/L Sodium 126 L (135-145) mmol/L Potassium 4.5 (3.3-5.1) mmol/L Chloride 104 (96-108) mmol/L Carbon Dioxide 13 L (22-29) mmol/L Anion Gap 14 (12-20) BUN 29 H (9-16) mg/dL Creatinine 3.15 H (0.5-1.4) mg/dL Estim Creat Clear Calc 23.1 Estimated GFR 21 POC Glucose (60-115) mg/dL Random Glucose 558 H* (60-115) mg/dL Calcium 8.5 D (8.4-10.2) mg/dL Total Bilirubin 0.8 (0.0-1.0) mg/dL Direct Bilirubin 0.3 (0.0-0.5) mg/dL AST 6 D (5-37) U/L ALT < 6 (0-40) U/L Alkaline Phosphatase 162 H D (39-117) U/L Total Protein 7.2 (6.5-8.0) g/dL Albumin 4.0 (3.5-5.0) g/dL Lipase 26 (8-78) U/L Urine Color Urine Appearance Urine pH (5.0-8.0) Ur Specific [place] (1.005-1.025) Urine Protein (NEG-TRACE) MG/DL Urine Glucose (UA) (NEG) MG/DL Urine Ketones (NEG) MG/DL Urine Blood (NEG) Urine Nitrite (NEG) Ur Leukocyte Esterase (NEG) Urine RBC (0) /HPF Urine WBC (0-4) /HPF Ur Squamous Epith Cells /LPF Ur Renal Epithelial Cell /LPF Amorphous Sediment /LPF Urine Bacteria /LPF Granular Casts /LPF Urine Mucus /LPF Acetone, Qual Negative (Negative) COVID-19 ([place]SHAWN) (Negative) COVID-19 Clin Com Influenza Type A (EVELIO) (Negative) Influenza Type B (EVELIO) (Negative) Influenza A & B Note 12/11/21 12/11/21 12/11/21 Range/Units 18:11 19:12 20:24 WBC (4.8-10.8) X10*3/uL RBC (4.60-5.80) X10*6/uL Hgb (14.0-18.0) g/dl Hct (42.0-52.0) % MCV (80.0-98.0) fL MCH (27.0-33.0) pg MCHC (31.0-36.0) g/dl RDW (11.0-16.0) % Plt Count (160-400) X10*3/uL MPV (9.4-12.4) fL Immature Gran % (Auto) (0.0-0.4) % Neut % (Auto) (45-73) % Lymph % (Auto) (20-40) % [place] % (Auto) (2-11) % Eos % (Auto) (0-4) % Baso % (Auto) (0-2) % Lymph # (Auto) (1.2-4.9) X10*3/uL [place] # (Auto) (0.1-1.2) X10*3/uL Eos # (Auto) (0.0-0.4) X10*3/uL Baso # (Auto) (0.0-0.2) X10*3/uL Abs Immat Gran (auto) (0.00-0.03) X10*3/uL Absolute Neuts (auto) (2.0-8.3) x10*3/uL Absolute Nucleated RBC (0.0-0.012) X10*3/uL Nucleated RBC % (auto) (0.0-0.2) /100WBC VBG pH 7.27 L (7.32-7.43) VBG pCO2 29 mmHg VBG pO2 44 mmHg VBG HCO3 13 L (22-26) mmol/L VBG O2 Saturation 72.0 % VBG Base Excess -11.5 mmol/L Sodium (135-145) mmol/L Potassium (3.3-5.1) mmol/L Chloride (96-108) mmol/L Carbon Dioxide (22-29) mmol/L Anion Gap (12-20) BUN (9-16) mg/dL Creatinine (0.5-1.4) mg/dL Estim Creat Clear Calc Estimated GFR POC Glucose 345 H 256 H (60-115) mg/dL Random Glucose (60-115) mg/dL Calcium (8.4-10.2) mg/dL Total Bilirubin (0.0-1.0) mg/dL Direct Bilirubin (0.0-0.5) mg/dL AST (5-37) U/L ALT (0-40) U/L Alkaline Phosphatase (39-117) U/L Total Protein (6.5-8.0) g/dL Albumin (3.5-5.0) g/dL Lipase (8-78) U/L Urine Color Urine Appearance Urine pH (5.0-8.0) Ur Specific [place] (1.005-1.025) Urine Protein (NEG-TRACE) MG/DL Urine Glucose (UA) (NEG) MG/DL Urine Ketones (NEG) MG/DL Urine Blood (NEG) Urine Nitrite (NEG) Ur Leukocyte Esterase (NEG) Urine RBC (0) /HPF Urine WBC (0-4) /HPF Ur Squamous Epith Cells /LPF Ur Renal Epithelial Cell /LPF Amorphous Sediment /LPF Urine Bacteria /LPF Granular Casts /LPF Urine Mucus /LPF Acetone, Qual (Negative) COVID-19 ([place]SHAWN) (Negative) COVID-19 Clin Com Influenza Type A (EVELIO) (Negative) Influenza Type B (EVELIO) (Negative) Influenza A & B Note 12/11/21 12/11/21 Range/Units 20:36 20:39 WBC (4.8-10.8) X10*3/uL RBC (4.60-5.80) X10*6/uL Hgb (14.0-18.0) g/dl Hct (42.0-52.0) % MCV (80.0-98.0) fL MCH (27.0-33.0) pg MCHC (31.0-36.0) g/dl RDW (11.0-16.0) % Plt Count (160-400) X10*3/uL MPV (9.4-12.4) fL Immature Gran % (Auto) (0.0-0.4) % Neut % (Auto) (45-73) % Lymph % (Auto) (20-40) % [place] % (Auto) (2-11) % Eos % (Auto) (0-4) % Baso % (Auto) (0-2) % Lymph # (Auto) (1.2-4.9) X10*3/uL [place] # (Auto) (0.1-1.2) X10*3/uL Eos # (Auto) (0.0-0.4) X10*3/uL Baso # (Auto) (0.0-0.2) X10*3/uL Abs Immat Gran (auto) (0.00-0.03) X10*3/uL Absolute Neuts (auto) (2.0-8.3) x10*3/uL Absolute Nucleated RBC (0.0-0.012) X10*3/uL Nucleated RBC % (auto) (0.0-0.2) /100WBC VBG pH (7.32-7.43) VBG pCO2 mmHg VBG pO2 mmHg VBG HCO3 (22-26) mmol/L VBG O2 Saturation % VBG Base Excess mmol/L Sodium 132 L (135-145) mmol/L Potassium 4.2 (3.3-5.1) mmol/L Chloride 109 H (96-108) mmol/L Carbon Dioxide 14 L (22-29) mmol/L Anion Gap 13 (12-20) BUN 27 H (9-16) mg/dL Creatinine 2.85 H (0.5-1.4) mg/dL Estim Creat Clear Calc 25.5 Estimated GFR 23 POC Glucose (60-115) mg/dL Random Glucose 279 H D (60-115) mg/dL Calcium 8.7 (8.4-10.2) mg/dL Total Bilirubin (0.0-1.0) mg/dL Direct Bilirubin (0.0-0.5) mg/dL AST (5-37) U/L ALT (0-40) U/L Alkaline Phosphatase (39-117) U/L Total Protein (6.5-8.0) g/dL Albumin (3.5-5.0) g/dL Lipase (8-78) U/L Urine Color YELLOW Urine Appearance CLEAR Urine pH 5.5 (5.0-8.0) Ur Specific [place] 1.010 (1.005-1.025) Urine Protein NEG (NEG-TRACE) MG/DL Urine Glucose (UA) >=1000 H (NEG) MG/DL Urine Ketones NEG (NEG) MG/DL Urine Blood TRACE (NEG) Urine Nitrite NEG (NEG) Ur Leukocyte Esterase NEG (NEG) Urine RBC 1-4 (0) /HPF Urine WBC 0-2 (0-4) /HPF Ur Squamous Epith Cells TRACE /LPF Ur Renal Epithelial Cell TRACE /LPF Amorphous Sediment TRACE /LPF Urine Bacteria NONE /LPF Granular Casts 0-2 /LPF Urine Mucus TRACE /LPF Acetone, Qual (Negative) COVID-19 ([facility]SHAWN) (Negative) COVID-19 Clin Com Influenza Type A (EVELIO) (Negative) Influenza Type B (EVELIO) (Negative) Influenza A & B Note ECG Data Attestation: I personally reviewed and interpreted this ECG as follows: Prior ECG tracings: available for review Interpretation: Ventricular rate of 82, AR normal, QRS normal, QT/QTC normal. EKG shows normal sinus rhythm with left axis deviation, no ST elevations or inversions concerning for ischemia. No significant changes when compared to EKG from August 2021 Critical Care Time Critical Care Time Critical Care Time: No Discharge Plan Discharge Clinical Impression: Hyponatremia, BEATRIZ (acute kidney injury), Hyperglycemia, Hypertension Patient Disposition: Home, Self-Care Instructions: Acute Kidney Injury (DC), Hyponatremia (ED), Chronic Hypertension (ED) Additional Instructions: Take your medications as prescribed. If you were prescribed antibiotics today, it is important that you take your medication to their entirety, do not skip any doses, do not finish them early. Follow-up with your primary care provider this week. Return to the emergency department with new or worsening symptoms. Such as fevers, chills, chest pain, shortness of breath, nausea, vomiting, dizziness, headache, vision changes, lethargy In case of emergency call 911 Please follow-up with your PCP and discuss her high sugars, please check daily and write them down CT scan showed these with your PCP might require medication changes. Also please check your blood pressure Wednesday, Wednesday, Wednesday, write it down also shared this information with your PCP. Please make sure that you are taking your medications as prescribed, do not skip any doses as this can also affect both your blood pressure and your blood sugar. Prescriptions: No Action albuterol sulfate 2.5 mg /3 mL (0.083 %) solution for nebulization 1 amp inhalation TID PRN (Reason: Respiratory Distress) atorvastatin 10 mg tablet 10 mg PO DAILY amlodipine 5 mg tablet 5 mg PO DAILY aspirin 81 mg tablet,delayed release (DR/EC) 81 mg PO DAILY tramadol 50 mg tablet 50 mg PO Q8H PRN (Reason: moderate pain) calcitriol 0.5 mcg capsule 0.5 mcg PO DAILY lidocaine [Lidoderm] 5 % adhesive patch,medicated 1 patch topical DAILY Protocol: Apply to: Apply to: BACK mupirocin 2 % ointment 1 appl topical TID Protocol: Apply to: Apply to: AFFECTED AREA albuterol sulfate [ProAir HFA] 90 mcg/actuation HFA aerosol inhaler 1 puff PO Q4H PRN (Reason: wheezing) fluticasone propionate 50 mcg/actuation spray,suspension 2 spray intranasal DAILY tacrolimus 1 mg capsule 2 mg PO DAILY Label Comments: PATIENTS DOSE WAS RECENTLY DECREASED TO 2 IN THE AM INSTEAD OF 3 tacrolimus 1 mg capsule 2 mg PO BEDTIME metoclopramide HCl 10 mg tablet 10 mg PO BEDTIME insulin lispro [Humalog KwikPen Insulin] 100 unit/mL insulin pen 10 unit subcut TIDWM duloxetine 20 mg capsule,delayed release(DR/EC) 20 mg PO DAILY cholecalciferol (vitamin D3) 1,250 mcg (50,000 unit) capsule 1 cap PO SA@1000 insulin glargine [Lantus Solostar U-100 Insulin] 100 unit/mL (3 mL) insulin pen 44 unit subcut BEDTIME prednisone 10 mg Tablet 10 mg PO DAILY famotidine 40 mg Tablet 40 mg PO BEDTIME pantoprazole 40 mg Tablet,Delayed Release (Dr/Ec) 40 mg PO BID gabapentin 100 mg Capsule 100 mg PO BEDTIME loperamide 2 mg Tablet 2 mg PO Q6H PRN (Reason: Diarrhea) ondansetron 4 mg Tablet,Disintegrating 8 mg PO BID PRN (Reason: Nausea) acetaminophen 500 mg tablet 2 tab PO Q8H PRN (Reason: Pain) diclofenac sodium 1 % Gel 2 g TOPICAL QID PRN (Reason: Pain) Rx Instructions: apply to single elbow, wrist or hand; for hand includes palm/fingers/back of hand Referrals: Zoraida Luo MD [Primary Care Provider] - 2 days Stand Alone Forms: Work/School Release
[2021-12-11 16:31] LABS: COVID-19 Test Negative (Negative); IDNOW Serial# 9DB6401D; Influenza A Negative (Negative); Influenza B2 Negative (Negative)
[2021-12-11 16:39] LABS: Basophils Percent Auto 0.2 % (0-2); Hematocrit 41.2 % (42.0-52.0); Hemoglobin 14.1 g/dl (14.0-18.0); Imm Gran Abs Auto 0.07 X10*3/uL (0.00-0.03); Imm Gran Pct Auto 0.6 % (0.0-0.4); Lymphocytes Absolute Auto 0.6 X10*3/uL (1.2-4.9); Lymphocytes Percent Auto 5.9 % (20-40); Mean Corpuscular HGB Conc 34.2 g/dl (31.0-36.0); Mean Corpuscular Volume 81.9 fL (80.0-98.0); Mean Platelet Volume 11.1 fL (9.4-12.4); Monocytes Absolute Auto 0.6 X10*3/uL (0.1-1.2); Neutrophils Absolute Auto 9.7 x10*3/uL (2.0-8.3); Neutrophils Percent Auto 88.3 % (45-73); Platelet Count 291 X10*3/uL (160-400); Red Blood Count 5.03 X10*6/uL (4.60-5.80); Red Cell Distribution Width 12.9 % (11.0-16.0); White Blood Count 10.9 X10*3/uL (4.8-10.8)
[2021-12-11 16:42] LABS: Alanine Aminotransferase < 6 U/L (0-40); Alkaline Phosphatase 162 U/L (39-117); Anion Gap 14 (12-20); Aspartate Amino Transferase 6 U/L (5-37); Bilirubin Direct 0.3 mg/dL (0.0-0.5); Bilirubin Total 0.8 mg/dL (0.0-1.0); Blood Urea Nitrogen 29 mg/dL (9-16); Calcium 8.5 mg/dL (8.4-10.2); Carbon Dioxide 13 mmol/L (22-29); Chloride 104 mmol/L (96-108); Creatinine Clr Calc Pharmacy 23.1; Estimated Glomerular Filt Rate 21; Glucose Random 558 mg/dL (60-115); Lipase 26 U/L (8-78); Potassium 4.5 mmol/L (3.3-5.1); Sodium 126 mmol/L (135-145); Total Protein 7.2 g/dL (6.5-8.0)
[2021-12-11] MEDS: 0.9 % Sodium Chloride 1,000 ML 999 ML IV ×2 (16:52)
--- NOTE | 2021-12-11 16:54 | ECG_ITS ---
Test Reason : HYPERGLYCEMIA Blood Pressure : / mmHG Vent. Rate : 082 BPM Atrial Rate : 082 BPM P-R Int : 128 ms QRS Dur : 098 ms QT Int : 390 ms P-R-T Axes : 042 -42 094 degrees QTc Int : 455 ms Normal sinus rhythm Left axis deviation Abnormal QRS-T angle, consider primary T wave abnormality Abnormal ECG When compared with ECG of 26-AUG-2021 23:38, No significant change was found Referred By: Meek Browne Electronically Signed By:ILDEFONSO LEIJA MD
[2021-12-11 17:18] VITALS: BP 166/108; PULSE 80; RESP 18; TEMP 36.7; O2SAT 100
[2021-12-11 17:47] LABS: Acetone, serum QL Negative (Negative)
[2021-12-11 18:15] LABS: VBG Base Excess -11.5 mmol/L; VBG HCO3 13 mmol/L (22-26); VBG pCO2 29 mmHg; VBG pH 7.27 (7.32-7.43); VBG pO2 44 mmHg
[2021-12-11 18:15] LABS: Venous Blood Gas Refer to POC result
[2021-12-11] MEDS: Insulin Lispro 100 UNIT/ML 3 ML VIAL 10 UNIT SUBCUT (18:24)
[2021-12-11 18:30] VITALS: BP 174/104; PULSE 71
[2021-12-11 19:07] VITALS: BP 165/102; PULSE 73; RESP 12; O2SAT 99
[2021-12-11] MEDS: amLODIPine Besylate 5 MG TABLET PO (19:08)
[2021-12-11 19:16] LABS: Glucose, Whole Blood 345 mg/dL (60-115)
[2021-12-11] MEDS: Ketorolac Tromethamine 15 MG/ML VIAL 30 MG IVPUSH (19:41)
[2021-12-11 20:40] LABS: Glucose, Whole Blood 256 mg/dL (60-115)
--- NOTE | 2021-12-11 20:43 | PHA.MEDREC ---
MED REC COMPLETE, NO ISSUES Pharmacy Consult ? Medication Reconciliation Pharmacy has completed the medication reconciliation.
[2021-12-11 20:47] LABS: Appearance Urine CLEAR; Color Urine YELLOW; Glucose Urine UA >=1000 MG/DL (NEG); Leukocyte Esterase Urine NEG (NEG); Nitrite Urine NEG (NEG); PH 5.5 (5.0-8.0); UACC Culture Trigger NO; Urine Blood TRACE (NEG); Urine Ketones NEG (NEG); Urine Protein NEG (NEG-TRACE)
[2021-12-11 20:53] VITALS: BP 156/96; PULSE 77; RESP 20; O2SAT 100
[2021-12-11 20:59] LABS: Anion Gap 13 (12-20); Blood Urea Nitrogen 27 mg/dL (9-16); Calcium 8.7 mg/dL (8.4-10.2); Carbon Dioxide 14 mmol/L (22-29); Chloride 109 mmol/L (96-108); Creatinine Clr Calc Pharmacy 25.5; Estimated Glomerular Filt Rate 23; Glucose Random 279 mg/dL (60-115); Potassium 4.2 mmol/L (3.3-5.1); Sodium 132 mmol/L (135-145)
[2021-12-11 20:59] LABS: Amorphous Sediment Urine TRACE /LPF; Granular Casts Urine 0-2 /LPF; Mucus Urine TRACE /LPF; Renal Epithelial Cells Urine TRACE /LPF; Squamous Epithelial Cell Urine TRACE /LPF; WBC Urine 0-2 /HPF (0-4)
[2021-12-11 21:18] VITALS: BP 153/96; PULSE 73; RESP 18; TEMP 36.8; O2SAT 99
== END 2021-12-11 21:51 | disposition home or self-care (01) ==
PROVIDERS: Physician Assistant; Emergency Provider Emergency Medicine Emergency Medical Services; PCP Family Medicine
DX: E11.65 Type 2 diabetes mellitus with hyperglycemia (principal); N17.9 Acute kidney failure, unspecified; E87.1 Hypo-osmolality and hyponatremia; I10 Essential (primary) hypertension; Z79.4 Long term (current) use of insulin; Z79.899 Other long term (current) drug therapy; Z20.822 Contact with and (suspected) exposure to COVID-19
CPT/HCPCS: 36415; 70450; 80048; 80053; 81001; 82009; 82248; 82803; 82947; 83690; 85025; 87502; 87635; 93005; 96361; 96374; 96375; 99284; J1885

== ENCOUNTER 2021-12-16 12:10 | Outpatient (REF) | payer MEDICAID, SELFPAY ==
--- NOTE | ~2021-12-16 | XR_ITS ---
EXAMINATION: XR FOOT, RIGHT CLINICAL INFORMATION: Chronic foot ulcer COMPARISON: None TECHNIQUE: AP, lateral, and oblique views of the right foot. FINDINGS: There are prominent calcifications seen throughout the foot. Joint spaces are maintained. There appears be some mild soft tissue swelling about the right fifth toe without gas in the soft tissues and without erosive change of adjacent bone. XR/XR foot RT min 3V IMPRESSION: Soft tissue swelling about the right fifth toe without bony abnormality appreciated.
== END 2021-12-16 12:11 | disposition home or self-care (01) ==
LOC: HO.XRAY 12:10
PROVIDERS: Absent Provider Family Medicine; PCP Family Medicine; Visit Provider Emergency Medicine
DX: L97.511 Non-pressure chronic ulcer of other part of right foot limited to breakdown of skin (principal)
CPT/HCPCS: 73630

== ENCOUNTER 2021-12-30 11:20 | Outpatient (REF) | payer MEDICAID, SELFPAY ==
--- NOTE | ~2021-12-30 | XR_ITS ---
EXAMINATION: XR FOOT, RIGHT CLINICAL INFORMATION: Cellulitis right lower extremity. Open wound. COMPARISON: Radiographs right foot 12/16/2021, right ankle 09/12/2021 TECHNIQUE: AP, lateral, and oblique views of the right foot. FINDINGS: There is subtle loss of the cortical white line involving the lateral aspect 5th toe distal phalanx and distal aspect 5th middle phalanx. Findings are suspicious for early osteomyelitis. There is no gas seen tracking in the soft tissues. There is no periostitis, or acute or healing fracture, dislocation. There is dorsal spurring mid foot and posterior calcaneal spurring. Extensive calcification of the vasculature is present. PSA to call report. XR/XR foot RT min 3V IMPRESSION: -Findings suspicious for early osteomyelitis involving the lateral aspect fifth toe distal phalanx and middle phalanx. No gas tracking in soft tissues. -No fracture or dislocation.
== END 2021-12-30 11:21 | disposition home or self-care (01) ==
LOC: HO.XRAY 11:20
PROVIDERS: Absent Provider Family Medicine; PCP Family Medicine; Visit Provider Emergency Medicine
DX: L03.115 Cellulitis of right lower limb (principal); S81.801D Unspecified open wound, right lower leg, subsequent encounter
CPT/HCPCS: 73630

== ENCOUNTER 2021-12-31 08:08 | Outpatient (RCR) | payer MEDICAID, SELFPAY | END 2022-01-19 15:00 | disposition home or self-care (01) | LOC: HO.WCC 08:08 | PROVIDERS: PCP Family Medicine; Visit Provider Surgery | DX: E11.621 Type 2 diabetes mellitus with foot ulcer (principal); L97.519 Non-pressure chronic ulcer of other part of right foot with unspecified severity; E11.40 Type 2 diabetes mellitus with diabetic neuropathy, unspecified; I10 Essential (primary) hypertension; L08.89 Other specified local infections of the skin and subcutaneous tissue; Z79.899 Other long term (current) drug therapy; Z94.0 Kidney transplant status; Z79.4 Long term (current) use of insulin | CPT/HCPCS: 99213 ==

== ENCOUNTER 2022-01-18 17:45 | Inpatient (IN) | payer MEDICAID, SELFPAY ==
--- NOTE | ~2022-01-18 | XR_ITS ---
EXAMINATION: XR FOOT, RIGHT CLINICAL INFORMATION: Status post fifth toe amputation, suspected infection COMPARISON: Right foot radiographs 12/30/2021 TECHNIQUE: AP, lateral, and oblique views of the right foot. FINDINGS: Recent interval partial amputation of the fifth toe to the base of the proximal phalanx. Amputation margin is slightly irregular and indistinct. No tracking soft tissue gas. No periostitis. No fracture or dislocation. Joint spaces are maintained. Lisfranc alignment is preserved. Extensive vascular calcifications. XR/XR foot RT min 3V IMPRESSION: 1. Status post partial amputation of the fifth toe. The amputation margin at the base of the fifth proximal phalanx is slightly indistinct and irregular. No immediate postoperative comparison available to assess for change. Difficult to exclude early small volume acute osteomyelitis. Suggest continued radiographic follow-up.
--- NOTE | ~2022-01-18 | CT_ITS ---
EXAMINATION: CT FOOT WITHOUT CONTRAST, RIGHT CLINICAL INFORMATION: Evaluate for osteomyelitis. COMPARISON: Multiple prior radiographs most recent 06/20/2022. TECHNIQUE: CT scan of the right foot was performed without contrast with reconstruction imaging performed at the acquisition workstation. This CT examination was performed using dose optimization techniques as appropriate, variously including the following: *Automated exposure control *Adjustment of mA and/or kV according to patient size (this includes techniques or standardized protocols for targeted exams where dose is matched to indication/reason for exam; i.e. extremities or head) *Use of iterative reconstruction technique DLP: 154 mGy-cm FINDINGS: Postop changes related to amputation distal to the level of the proximal portion of the proximal phalanx of the 5th toe. Slight irregularity of the distal end of the remaining bone. Increased density in the surrounding soft tissues compatible with edema and/or cellulitis. No definite effusion of the 5th metatarsophalangeal joint. 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 Minimal streaky density in the subcutaneous soft tissues along the dorsal aspect of the foot indicative of minimal edema and/or cellulitis. Minimal streaky density noted within the calcaneal fat pad likely reflects mild edema. Also noted is prominent arterial calcification throughout. CT/CT foot RT wo con IMPRESSION: Postsurgical changes of the 5th digit related to amputation at the level of proximal phalanx. Findings could reflect postsurgical change. Cannot exclude persistent or recurrent osteomyelitis but the appearance does not strongly suggest this. Perhaps correlation with surgical details may help determine likelihood of persistent or recurrent osteomyelitis. Abnormal density in the immediately surrounding soft tissues could also reflect postsurgical change but cannot exclude cellulitis. 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 Mild increased density in the subcutaneous soft tissues of the foot likely reflecting mild edema less likely cellulitis. Calcific atherosclerotic changes throughout.
[2022-01-18 18:06] VITALS: BP 126/83; PULSE 100; RESP 16; TEMP 36.3; O2SAT 98; BMI 29.5
--- NOTE | 2022-01-18 18:14 | ECG_ITS ---
Test Reason : CHEST PAIN Blood Pressure : / mmHG Vent. Rate : 099 BPM Atrial Rate : 099 BPM P-R Int : 122 ms QRS Dur : 102 ms QT Int : 360 ms P-R-T Axes : 032 -31 091 degrees QTc Int : 462 ms Sinus rhythm with Premature atrial complexes Left axis deviation Abnormal QRS-T angle, consider primary T wave abnormality Abnormal ECG When compared with ECG of 11-DEC-2021 17:04, Premature atrial complexes are now Present Referred By: Generic ED Physician Electronically Signed By:ILDEFONSO LEIJA MD
[2022-01-18 18:28] LABS: Basophils Percent Auto 0.2 % (0-2); Hematocrit 39.8 % (42.0-52.0); Hemoglobin 13.3 g/dl (14.0-18.0); Imm Gran Abs Auto 0.04 X10*3/uL (0.00-0.03); Imm Gran Pct Auto 0.3 % (0.0-0.4); Lymphocytes Absolute Auto 0.4 X10*3/uL (1.2-4.9); Lymphocytes Percent Auto 3.2 % (20-40); MANUAL DIFF FLAG SCAN; Mean Corpuscular HGB Conc 33.4 g/dl (31.0-36.0); Mean Corpuscular Hemoglobin 27.9 pg (27.0-33.0); Mean Corpuscular Volume 83.4 fL (80.0-98.0); Mean Platelet Volume 10.6 fL (9.4-12.4); Monocytes Absolute Auto 0.3 X10*3/uL (0.1-1.2); Monocytes Percent Auto 2.5 % (2-11); Neutrophils Absolute Auto 11.2 x10*3/uL (2.0-8.3); Neutrophils Percent Auto 93.8 % (45-73); Platelet Count 300 X10*3/uL (160-400); Red Blood Count 4.77 X10*6/uL (4.60-5.80); Red Cell Distribution Width 13.2 % (11.0-16.0); SCAN SMEAR FLAG 1
[2022-01-18 18:48] LABS: Alanine Aminotransferase 38 U/L (0-40); Albumin Level 3.7 g/dL (3.5-5.0); Alkaline Phosphatase 142 U/L (39-117); Anion Gap 16 (12-20); Aspartate Amino Transferase 23 U/L (5-37); Bilirubin Total 0.5 mg/dL (0.0-1.0); Blood Urea Nitrogen 42 mg/dL (9-16); Calcium 8.4 mg/dL (8.4-10.2); Carbon Dioxide 14 mmol/L (22-29); Chloride 104 mmol/L (96-108); Creatinine Clr Calc Pharmacy 25.8; Estimated Glomerular Filt Rate 23; Glucose Random 699 mg/dL (60-115); Potassium 4.6 mmol/L (3.3-5.1); Sodium 129 mmol/L (135-145); Total Protein 6.6 g/dL (6.5-8.0)
[2022-01-18 18:49] LABS: SLIDE REVIEW VERIFIED
[2022-01-18 19:41] VITALS: BP 132/81; PULSE 78; RESP 16; TEMP 36.5; O2SAT 100
--- NOTE | 2022-01-18 19:53 | ED.WOUNDLAC ---
HPI - Wound/Laceration General Chief Complaint: Wound/Laceration Stated Complaint: foot pain/dizziness Time Seen by Provider: 01/18/22 18:20 Source: patient Mode of arrival: ambulatory Limitations: language barrier History of Present Illness HPI narrative: 56-year-old male with past medical history of hypertension, poorly controlled diabetes type 2 insulin dependent, end-stage renal disease secondary to diabetic neuropathy status post renal transplant 2014 complicated by CKD stage IIIB. Patient presents with worsening wound to the right 5th toe status post amputation 2 weeks ago. Reports increased pain to the site and pain to the middle toes, with redness. He also reports of dizziness, diarrhea, elevated glucose, left-sided chest pain, and rash to his chest abdomen face and legs. He does not report fevers or chills, abdominal pain, chest pain on inspiration, palpitations, diaphoresis headaches or weakness. Onset (ago): day(s) (2) Extremity Location: right: foot Place: other (Postsurgical) Patient tetanus UTD: Yes Context: other Associated symptoms: pain Related Data Home Medications Medication Instructions Recorded Confirmed albuterol sulfate 2.5 mg/3 mL 1 amp inhalation TID PRN 08/26/21 01/18/22 (0.083 %) solution for nebulization Respiratory Distress albuterol sulfate 90 mcg/actuation 1 puff PO Q4H PRN wheezing 08/26/21 01/18/22 aerosol inhaler (ProAir HFA) amlodipine 5 mg tablet 5 mg PO DAILY 08/26/21 01/18/22 aspirin 81 mg tablet,delayed 81 mg PO DAILY 08/26/21 01/18/22 release atorvastatin 10 mg tablet 10 mg PO DAILY 08/26/21 01/18/22 calcitriol 0.5 mcg capsule 0.5 mcg PO DAILY 08/26/21 01/18/22 cholecalciferol (vitamin D3) 1,250 1 cap PO SA@1000 08/26/21 01/18/22 mcg (50,000 unit) capsule duloxetine 20 mg capsule,delayed 20 mg PO DAILY 08/26/21 01/18/22 release fluticasone propionate 50 2 spray intranasal DAILY 08/26/21 01/18/22 mcg/actuation nasal spray,suspension insulin glargine 100 unit/mL (3 44 unit subcut BEDTIME 08/26/21 01/18/22 mL) subcutaneous pen (Lantus Solostar U-100 Insulin) insulin lispro 100 unit/mL 10 unit subcut TIDWM 08/26/21 01/18/22 subcutaneous pen (Humalog KwikPen (U-100) Insulin) lidocaine 5 % topical patch 1 patch topical DAILY 08/26/21 01/18/22 (Lidoderm) metoclopramide HCl 10 mg tablet 10 mg PO BEDTIME 08/26/21 01/18/22 mupirocin 2 % topical ointment 1 appl topical TID 08/26/21 12/11/21 tacrolimus 1 mg capsule, 2 mg PO BEDTIME 08/26/21 01/18/22 immediate-release tacrolimus 1 mg capsule, 2 mg PO DAILY 08/26/21 01/18/22 immediate-release tramadol 50 mg tablet 50 mg PO Q8H PRN moderate pain 08/26/21 01/18/22 acetaminophen 500 mg tablet 2 tab PO Q8H PRN Pain 12/11/21 01/18/22 diclofenac sodium 1 % topical gel 2 g topical QID PRN Pain 12/11/21 01/18/22 famotidine 40 mg tablet 40 mg PO BEDTIME 12/11/21 01/18/22 gabapentin 100 mg capsule 100 mg PO BEDTIME 12/11/21 01/18/22 loperamide 2 mg tablet 2 mg PO Q6H PRN Diarrhea 12/11/21 01/18/22 ondansetron 4 mg disintegrating 8 mg PO BID PRN Nausea 12/11/21 01/18/22 tablet pantoprazole 40 mg tablet,delayed 40 mg PO BID 12/11/21 01/18/22 release prednisone 10 mg tablet 10 mg PO DAILY 12/11/21 01/18/22 Allergies Allergy/AdvReac Type Severity Reaction Status Date / Time hydromorphone [From DILAUDID] Allergy Mild ITCHINESS Verified 12/08/21 10:45 diphenhydramine Allergy Unknown UNK Verified 12/08/21 10:45 [From BENADRYL] Review of Systems Review of Systems: Constitutional: No Fever, No Chills ENT/Mouth: No Ear Pain, No Hoarseness, No sore throat Eyes: No Eye Pain, No Swelling, No Redness, No Foreign Body Cardiovascular: No Chest Pain, No SOB Respiratory: No Cough, No Dyspnea Gastrointestinal: No Nausea, No Vomiting, No Diarrhea, No abdominal Pain Genitourinary: No Dysuria, No Hematuria Musculoskeletal: positive right foot pain, No Myalgias, No Joint Swelling Skin: No Skin lacerations, positive full-body rash Neuro: No Weakness, No Numbness, No Paresthesias, No Loss of Consciousness, No Dizziness, No Headache Psych: No Anxiety/Panic, No Depression Heme/Lymph: no easy bruising, no Lymphadenopathy Endocrine: No Polyuria, No Polydipsia Yes all other systems are reviewed and are negative [facility] Past Medical History Attestation statement: The following information was validated with the patient. Source: old records reviewed Medical History Diabetes HTN (hypertension) Surgical History H/O arteriovenostomy for renal dialysis Social History Social History Alcohol intake: never Patient Tobacco Use Status: Never used Tobacco Advance Directives: No Advance Directives Information Provided: No Physical Exam Vital Signs: Vital Signs: Last Vital Signs Temp 97.7 F 01/18/22 19:41 Pulse 72 01/19/22 00:43 Resp 16 01/19/22 00:43 BP 152/88 H 01/19/22 00:43 Pulse Ox 99 01/19/22 00:43 O2 Del Method 01/19/22 00:43 BMI result Body Mass Index 29.5 Appearance: Alert. Oriented X3. No acute distress. Eyes: Pupils equal, round and reactive to light. Sclera nonicteric. ENT: Pharynx normal. No mucosal lesions. Neck: Normal inspection. Neck supple. No cervical lymphadenopathy. CVS: Tachycardic heart rate and rhythm. Apical pulses the pulses to extremities. Respiratory: No respiratory distress. Breath sounds normal. Abdomen: Soft and nontender. Skin: Diffuse scattered pustular rash. Sutures in place with erythema to the right 5th toe amputation. Skin warm and dry. Normal skin color. Normal skin turgor. Extremities: No lower extremity edema. Moves all extremities against resistance. Neuro: No motor deficit. No sensory deficit. Cranial nerves 2-12 intact. Course Course Course Narrative: 56-year-old male presents with worsening pain to the 5th toe on the right side status post amputation 2 weeks ago at [facility]. Also reports a dizziness, elevated blood sugars, left-sided chest pain, rash to back, abdomen face and extremities for approximately 2 days. Admitted to [facility] on 01/03/2022 diagnosed with osteomyelitis of the 5th right toe cultures indicate Streptococcus agalactiae and was treated with Zosyn. Patient was transitioned to oral amoxicillin 1 day prior to discharge, patient completed the entire course of the antibiotic on 01/07. Patient is status post renal transplant, does take tacro line miss 1 mg in the a.m. and 2 mg in p.m.. Labs drawn while patient was in the waiting in the emergency department waiting room. Medical records obtained from [facility]. Will add cultures, lactic, x-rays, L of fluid, give Zosyn IV. Blood sugars 699, will order IV insulin at this time. Rashes pustular and scattered, low likelihood of Edwin Popeye's at this time. 20:01 abnormal lab values noted. Corrected sodium is 139. White count of 12.0, H&H 13.3/39.8 which is consistent with prior values. Left shift with neutrophil count of 93.8, BUN 42, creatinine 2.91 consistent with prior values. Foot x-ray indicates possible acute osteomyelitis. Will add vancomycin, and discuss plan for admission with hospitalist. 23:30 hospitalist would like discussion with Infectious Disease regarding possibility for monkey pox. Patient has been vaccinated with Shingrix x2. Does not report prior history of varicella. 23:49 discussion with Infectious Disease, low likelihood of months pox at this time, will change medication to cefepime as this could possibly be a drug rash. I did discuss suggestions from Infectious Disease to the hospitalist. Plan of care is to admit for osteomyelitis. Consultations Consultation #1: josi Time: 23:53 Consultation #2: Doc Time: 22:35 MDM - Wound/Laceration MDM Narrative Medical decision making narrative: Surgical incision 5th right toe amputation. Rash, viral exanthem, drug reaction, varicella Medical Records Attestation: I reviewed the patient's medical records. Lab Data Attestation: I reviewed the patient's lab results. Result diagrams: 01/18/22 18:18 01/18/22 18:18 Labs: Lab Results 01/18/22 01/18/22 01/18/22 Range/Units 18:18 18:18 20:09 WBC 12.0 H (4.8-10.8) X10*3/uL RBC 4.77 (4.60-5.80) X10*6/uL Hgb 13.3 L (14.0-18.0) g/dl Hct 39.8 L (42.0-52.0) % MCV 83.4 (80.0-98.0) fL MCH 27.9 (27.0-33.0) pg MCHC 33.4 (31.0-36.0) g/dl RDW 13.2 (11.0-16.0) % Plt Count 300 (160-400) X10*3/uL MPV 10.6 (9.4-12.4) fL Immature Gran % (Auto) 0.3 (0.0-0.4) % Neut % (Auto) 93.8 H (45-73) % Lymph % (Auto) 3.2 L (20-40) % [place] % (Auto) 2.5 (2-11) % Eos % (Auto) 0.0 (0-4) % Baso % (Auto) 0.2 (0-2) % Lymph # (Auto) 0.4 L (1.2-4.9) X10*3/uL [place] # (Auto) 0.3 (0.1-1.2) X10*3/uL Eos # (Auto) 0.0 (0.0-0.4) X10*3/uL Baso # (Auto) 0.0 (0.0-0.2) X10*3/uL Abs Immat Gran (auto) 0.04 H (0.00-0.03) X10*3/uL Absolute Neuts (auto) 11.2 H (2.0-8.3) x10*3/uL Absolute Nucleated RBC 0.000 (0.0-0.012) X10*3/uL Nucleated RBC % (auto) 0.0 (0.0-0.2) /100WBC Smear Tech's Comments VERIFIED PT 9.9 L (10.0-13.1) SEC INR 0.9 (0.9-1.1) APTT 27.9 (26.0-36.4) SEC Sodium 129 L (135-145) mmol/L Potassium 4.6 (3.3-5.1) mmol/L Chloride 104 (96-108) mmol/L Carbon Dioxide 14 L (22-29) mmol/L Anion Gap 16 (12-20) BUN 42 H D (9-16) mg/dL Creatinine 2.91 H (0.5-1.4) mg/dL Estim Creat Clear Calc 25.8 Estimated GFR 23 POC Glucose (60-115) mg/dL Random Glucose 699 H* (60-115) mg/dL Lactic Acid (0.5-2.0) mmol/L Calcium 8.4 (8.4-10.2) mg/dL Total Bilirubin 0.5 (0.0-1.0) mg/dL AST 23 D (5-37) U/L ALT 38 (0-40) U/L Alkaline Phosphatase 142 H (39-117) U/L Total Protein 6.6 (6.5-8.0) g/dL Albumin 3.7 (3.5-5.0) g/dL Urine Color Urine Appearance Urine pH (5.0-8.0) Ur Specific [place] (1.005-1.025) Urine Protein (NEG-TRACE) MG/DL Urine Glucose (UA) (NEG) MG/DL Urine Ketones (NEG) MG/DL Urine Blood (NEG) Urine Nitrite (NEG) Ur Leukocyte Esterase (NEG) Urine RBC (0) /HPF Urine WBC (0-4) /HPF Ur Squamous Epith Cells /LPF Urine Bacteria /LPF Acetone, Qual (Negative) COVID-19 ([facility]) (Negative) COVID-19 Clin Com 01/18/22 01/18/22 01/18/22 Range/Units 20:09 20:09 22:00 WBC (4.8-10.8) X10*3/uL RBC (4.60-5.80) X10*6/uL Hgb (14.0-18.0) g/dl Hct (42.0-52.0) % MCV (80.0-98.0) fL MCH (27.0-33.0) pg MCHC (31.0-36.0) g/dl RDW (11.0-16.0) % Plt Count (160-400) X10*3/uL MPV (9.4-12.4) fL Immature Gran % (Auto) (0.0-0.4) % Neut % (Auto) (45-73) % Lymph % (Auto) (20-40) % [place] % (Auto) (2-11) % Eos % (Auto) (0-4) % Baso % (Auto) (0-2) % Lymph # (Auto) (1.2-4.9) X10*3/uL [place] # (Auto) (0.1-1.2) X10*3/uL Eos # (Auto) (0.0-0.4) X10*3/uL Baso # (Auto) (0.0-0.2) X10*3/uL Abs Immat Gran (auto) (0.00-0.03) X10*3/uL Absolute Neuts (auto) (2.0-8.3) x10*3/uL Absolute Nucleated RBC (0.0-0.012) X10*3/uL Nucleated RBC % (auto) (0.0-0.2) /100WBC Smear Tech's Comments PT (10.0-13.1) SEC INR (0.9-1.1) APTT (26.0-36.4) SEC Sodium (135-145) mmol/L Potassium (3.3-5.1) mmol/L Chloride (96-108) mmol/L Carbon Dioxide (22-29) mmol/L Anion Gap (12-20) BUN (9-16) mg/dL Creatinine (0.5-1.4) mg/dL Estim Creat Clear Calc Estimated GFR POC Glucose 330 H (60-115) mg/dL Random Glucose (60-115) mg/dL Lactic Acid 2.0 (0.5-2.0) mmol/L Calcium (8.4-10.2) mg/dL Total Bilirubin (0.0-1.0) mg/dL AST (5-37) U/L ALT (0-40) U/L Alkaline Phosphatase (39-117) U/L Total Protein (6.5-8.0) g/dL Albumin (3.5-5.0) g/dL Urine Color Urine Appearance Urine pH (5.0-8.0) Ur Specific [place] (1.005-1.025) Urine Protein (NEG-TRACE) MG/DL Urine Glucose (UA) (NEG) MG/DL Urine Ketones (NEG) MG/DL Urine Blood (NEG) Urine Nitrite (NEG) Ur Leukocyte Esterase (NEG) Urine RBC (0) /HPF Urine WBC (0-4) /HPF Ur Squamous Epith Cells /LPF Urine Bacteria /LPF Acetone, Qual Negative (Negative) COVID-19 ([facility]WN) (Negative) COVID-19 Clin Com 01/18/22 01/18/22 01/18/22 Range/Units 22:52 22:52 23:56 WBC (4.8-10.8) X10*3/uL RBC (4.60-5.80) X10*6/uL Hgb (14.0-18.0) g/dl Hct (42.0-52.0) % MCV (80.0-98.0) fL MCH (27.0-33.0) pg MCHC (31.0-36.0) g/dl RDW (11.0-16.0) % Plt Count (160-400) X10*3/uL MPV (9.4-12.4) fL Immature Gran % (Auto) (0.0-0.4) % Neut % (Auto) (45-73) % Lymph % (Auto) (20-40) % [place] % (Auto) (2-11) % Eos % (Auto) (0-4) % Baso % (Auto) (0-2) % Lymph # (Auto) (1.2-4.9) X10*3/uL [place] # (Auto) (0.1-1.2) X10*3/uL Eos # (Auto) (0.0-0.4) X10*3/uL Baso # (Auto) (0.0-0.2) X10*3/uL Abs Immat Gran (auto) (0.00-0.03) X10*3/uL Absolute Neuts (auto) (2.0-8.3) x10*3/uL Absolute Nucleated RBC (0.0-0.012) X10*3/uL Nucleated RBC % (auto) (0.0-0.2) /100WBC Smear Tech's Comments PT (10.0-13.1) SEC INR (0.9-1.1) APTT (26.0-36.4) SEC Sodium (135-145) mmol/L Potassium (3.3-5.1) mmol/L Chloride (96-108) mmol/L Carbon Dioxide (22-29) mmol/L Anion Gap (12-20) BUN (9-16) mg/dL Creatinine (0.5-1.4) mg/dL Estim Creat Clear Calc Estimated GFR POC Glucose 283 H (60-115) mg/dL Random Glucose (60-115) mg/dL Lactic Acid (0.5-2.0) mmol/L Calcium (8.4-10.2) mg/dL Total Bilirubin (0.0-1.0) mg/dL AST (5-37) U/L ALT (0-40) U/L Alkaline Phosphatase (39-117) U/L Total Protein (6.5-8.0) g/dL Albumin (3.5-5.0) g/dL Urine Color YELLOW Urine Appearance CLEAR Urine pH 5.5 (5.0-8.0) Ur Specific [place] 1.015 (1.005-1.025) Urine Protein NEG (NEG-TRACE) MG/DL Urine Glucose (UA) >=1000 H (NEG) MG/DL Urine Ketones NEG (NEG) MG/DL Urine Blood NEG (NEG) Urine Nitrite NEG (NEG) Ur Leukocyte Esterase NEG (NEG) Urine RBC 0-2 (0) /HPF Urine WBC 0-2 (0-4) /HPF Ur Squamous Epith Cells 1+ /LPF Urine Bacteria 1+ /LPF Acetone, Qual (Negative) COVID-19 ([facility]) Negative (Negative) COVID-19 Clin Com See Note Imaging Data Foot x-ray: Attestation: I personally reviewed and interpreted this imaging study as follows: Radiologist's impression: EXAMINATION: XR FOOT, RIGHT CLINICAL INFORMATION: Status post fifth toe amputation, suspected infection? COMPARISON: Right foot radiographs 12/30/2021? TECHNIQUE: AP, lateral, and oblique views of the right foot. FINDINGS: Recent interval partial amputation of the fifth toe to the base of the proximal phalanx. Amputation margin is slightly irregular and indistinct. No tracking soft tissue gas. No periostitis. No fracture or dislocation. Joint spaces are maintained. Lisfranc alignment is preserved. Extensive vascular calcifications. XR/XR foot RT min 3V IMPRESSION: ? 1. Status post partial amputation of the fifth toe. The amputation margin at the base of the fifth proximal phalanx is slightly indistinct and irregular. No immediate postoperative comparison available to assess for change. Difficult to exclude early small volume acute osteomyelitis. Suggest continued radiographic follow-up. ECG Data Attestation: I personally reviewed and interpreted this ECG as follows: ECG interpretation date: 01/18/22 ECG interpretation time: 18:15 Prior ECG tracings: available for review Interpretation: Vent. rate 99 BPM VT interval 122 ms QRS duration 102 ms QT/QTc 360/462 ms P-R-T axes 32 -31 91 Sinus rhythm with Premature atrial complexes Left axis deviation Abnormal QRS-T angle, consider primary T wave abnormality Abnormal ECG When compared with ECG of 11-DEC-2021 17:04, Premature atrial complexes are now Present Discharge Plan Discharge Clinical Impression: Right foot pain, Osteomyelitis, Rash, Chronic hyperglycemia Patient Disposition: Admitted As Inpatient
[2022-01-18 20:48] LABS: INTERNATIONAL NORM RATIO 0.9 (0.9-1.1); Prothrombin Time 9.9 SEC (10.0-13.1)
[2022-01-18 20:49] LABS: Acetone, serum QL Negative (Negative)
[2022-01-18] MEDS: Insulin Regular, Human 100 UNIT/ML 3 ML VIAL 10 UNIT IVPUSH (20:50)
[2022-01-18] MEDS: 0.9 % Sodium Chloride 1,000 ML 999 ML IVCONT (20:50)
[2022-01-18 20:51] LABS: Partial Thromboplastin Time 27.9 SEC (26.0-36.4)
[2022-01-18] MEDS: Piperacillin Sodium/Tazobactam 3.375 GM in 0.9 % Sodium Chloride 50 ML IV (21:41)
[2022-01-18 22:04] LABS: Glucose, Whole Blood 330 mg/dL (60-115)
[2022-01-18 22:59] LABS: Appearance Urine CLEAR; Color Urine YELLOW; Glucose Urine UA >=1000 MG/DL (NEG); Leukocyte Esterase Urine NEG (NEG); Nitrite Urine NEG (NEG); PH 5.5 (5.0-8.0); Specific Gravity - Urine 1.015 (1.005-1.025); Urine Blood NEG (NEG); Urine Ketones NEG (NEG); Urine Protein NEG (NEG-TRACE)
[2022-01-18 23:08] LABS: Bacteria Urine 1+ /LPF; RBC Urine 0-2 /HPF (0); Squamous Epithelial Cell Urine 1+ /LPF; WBC Urine 0-2 /HPF (0-4)
[2022-01-18 23:12] LABS: COVID-19 Test Negative (Negative)
--- NOTE | 2022-01-19 | PM.IMHP ---
History of Present Illness Date of Service: 01/18/22 Chief Complaint: toe pain 56-year-old Nepali-speaking male only with past medical history of diabetes, hypertension, recently amputated 5th right toe in December at [facility] who presents to the hospital with complaints amputation site pain. Patient reports that he was discharged from the hospital on January 03 after being treated with amputation for right 5th toe osteomyelitis P 80 was discharged on 01/03 and given amoxicillin which he completed on 01/07. He reports that he felt well up until 1-2 days ago he started having itching in his feet, and 10/10 pain radiating to the rest of his toes. He has no fever chills, he also reports that he noticed a rash all over his body today, the rash is itchy, patient does not remember having a similar episode before, reports no drug allergies, no recent travel, and does not remember if he was vaccinated against trick and pox. Patient denies any chest pain abdominal pain nausea or vomiting diarrhea constipation, no urinary symptoms and no lower extremity edema. He does report penile pain, and excoriation that started about 2 days ago, he reports no recent sexual activity on last time he had sex with woman was 3 years ago. He has no urinary symptoms clinic no dysuria, frequency or urgency. On arrival to the ED patient hemodynamically stable with no significant abnormal vitals Labs are significant for WBC count of 12.0, glucose of 699, creatinine of 2.91 which is around his baseline, Foot x-ray shows status post partial amputation of the 5th toe, the amputation margin at the base of the 5th proximal phalanx slightly indistinct and regular, difficult to exclude early small volume acute osteomyelitis Infectious Disease was also consulted in regards to the rash, felt to be allergic reaction secondary to medications, no concern for other causes therefore patient will be admitted for further management Review of Systems Review of Systems: Yes all other systems are reviewed and are negative [facility] Medical History (Updated 01/19/22 @ 06:27 by Gil Roach MD) Amputation of fifth toe of right foot Diabetes History of osteomyelitis HTN (hypertension) Family History (Updated 01/19/22 @ 06:27 by Gil Roach MD) Other Diabetes No family history of coronary artery disease Surgical History H/O arteriovenostomy for renal dialysis Social History Alcohol intake: never Patient Tobacco Use Status: Never used Tobacco Advance Directives: No Advance Directives Information Provided: No Meds Allergies Allergy/AdvReac Type Severity Reaction Status Date / Time hydromorphone [From DILAUDID] Allergy Mild ITCHINESS Verified 12/08/21 10:45 diphenhydramine Allergy Unknown UNK Verified 12/08/21 10:45 [From BENADRYL] Active Medications: Current Medications Vancomycin HCl () 2,000 mg in 520 mls @ 260 mls/hr IV ONCE ONE Stop: 01/19/22 00:15 Last Admin: 01/18/22 23:01 Dose: 260 mls/hr Pharmacy Consult (Consult Rx Perform Med Rec) 1 each MISCELLANE ONCE STA Stop: 01/18/22 21:57 Home Medications Medication Instructions Recorded Confirmed Last Taken Type albuterol sulfate 2.5 mg/3 mL 1 amp inhalation TID PRN 08/26/21 01/18/22 Unknown History (0.083 %) solution for nebulization Respiratory Distress albuterol sulfate 90 mcg/actuation 1 puff PO Q4H PRN wheezing 08/26/21 01/18/22 Unknown History aerosol inhaler (ProAir HFA) amlodipine 5 mg tablet 5 mg PO DAILY 08/26/21 01/18/22 12/11/21 History aspirin 81 mg tablet,delayed 81 mg PO DAILY 08/26/21 01/18/22 12/11/21 History release atorvastatin 10 mg tablet 10 mg PO DAILY 08/26/21 01/18/22 12/11/21 History calcitriol 0.5 mcg capsule 0.5 mcg PO DAILY 08/26/21 01/18/22 12/11/21 History cholecalciferol (vitamin D3) 1,250 1 cap PO SA@1000 08/26/21 01/18/22 Unknown History mcg (50,000 unit) capsule duloxetine 20 mg capsule,delayed 20 mg PO DAILY 08/26/21 01/18/22 12/11/21 History release fluticasone propionate 50 2 spray intranasal DAILY 08/26/21 01/18/22 Unknown History mcg/actuation nasal spray,suspension insulin glargine 100 unit/mL (3 44 unit subcut BEDTIME 08/26/21 01/18/22 12/10/21 History mL) subcutaneous pen (Lantus Solostar U-100 Insulin) insulin lispro 100 unit/mL 10 unit subcut TIDWM 08/26/21 01/18/22 Unknown History subcutaneous pen (Humalog KwikPen (U-100) Insulin) lidocaine 5 % topical patch 1 patch topical DAILY 08/26/21 01/18/22 Unknown History (Lidoderm) metoclopramide HCl 10 mg tablet 10 mg PO BEDTIME 08/26/21 01/18/22 12/10/21 History mupirocin 2 % topical ointment 1 appl topical TID 08/26/21 12/11/21 Unknown History tacrolimus 1 mg capsule, 2 mg PO BEDTIME 08/26/21 01/18/22 12/11/21 History immediate-release tacrolimus 1 mg capsule, 2 mg PO DAILY 08/26/21 01/18/22 12/11/21 History immediate-release tramadol 50 mg tablet 50 mg PO Q8H PRN moderate pain 08/26/21 01/18/22 Unknown History acetaminophen 500 mg tablet 2 tab PO Q8H PRN Pain 12/11/21 01/18/22 Unknown History diclofenac sodium 1 % topical gel 2 g topical QID PRN Pain 12/11/21 01/18/22 Unknown History famotidine 40 mg tablet 40 mg PO BEDTIME 12/11/21 01/18/22 12/10/21 History gabapentin 100 mg capsule 100 mg PO BEDTIME 12/11/21 01/18/22 12/10/21 History loperamide 2 mg tablet 2 mg PO Q6H PRN Diarrhea 12/11/21 01/18/22 Unknown History ondansetron 4 mg disintegrating 8 mg PO BID PRN Nausea 12/11/21 01/18/22 Unknown History tablet pantoprazole 40 mg tablet,delayed 40 mg PO BID 12/11/21 01/18/22 12/11/21 History release prednisone 10 mg tablet 10 mg PO DAILY 12/11/21 01/18/22 12/11/21 History Physical Exam Vital Signs and Narrative: Vital Signs: Last Vital Signs Temp 97.7 F 01/18/22 19:41 Pulse 78 01/18/22 19:41 Resp 16 01/18/22 19:41 BP 132/81 01/18/22 19:41 Pulse Ox 100 01/18/22 19:41 O2 Del Method 01/18/22 19:41 BMI result Body Mass Index 29.5 Const: General: cooperative and no acute distress Orientation/consciousness: patient oriented x3 Eyes: General: appearance normal, both eyes and all related structures Pupils: Equal, round and reactive pupils present Resp: Effort & Inspection: normal respiratory effort Auscultation: clear to auscultation bilaterally Cardio: Rate: regular rate Rhythm: regular rhythm GI: Palpation (GI): Soft to palpation Auscultation: normal bowel sounds Skin: Other: A smooth rash present throughout his body including his face in the jain, back, arms, seems to be sparing the soles of the foot and pulse of the hands Neuro: General: patient oriented x3 Cranial nerves: Yes Equal, round and reactive pupils present Cognition (Neuro): normal cognition Extrem: Other: Right foot amputation site at the 5th toe appears tender, red, warm, no drainage. Suture site dry, no erythema around sutures. Results Labs CBC and Chem 7: 01/18/22 18:18 01/18/22 18:18 Labs: Laboratory Results - last 24 hr 01/18/22 01/18/22 01/18/22 18:18 18:18 20:09 MCV 83.4 MCH 27.9 MCHC 33.4 RDW 13.2 Plt Count 300 MPV 10.6 Immature Gran % (Auto) 0.3 Neut % (Auto) 93.8 H Lymph % (Auto) 3.2 L [place] % (Auto) 2.5 Eos % (Auto) 0.0 Baso % (Auto) 0.2 Lymph # (Auto) 0.4 L [place] # (Auto) 0.3 Eos # (Auto) 0.0 Baso # (Auto) 0.0 Abs Immat Gran (auto) 0.04 H Absolute Neuts (auto) 11.2 H Absolute Nucleated RBC 0.000 Nucleated RBC % (auto) 0.0 Smear Tech's Comments VERIFIED PT 9.9 L INR 0.9 APTT 27.9 Anion Gap 16 Estim Creat Clear Calc 25.8 Estimated GFR 23 POC Glucose Random Glucose 699 H* Lactic Acid Calcium 8.4 Total Bilirubin 0.5 AST 23 D ALT 38 Alkaline Phosphatase 142 H Total Protein 6.6 Albumin 3.7 Urine Color Urine Appearance Urine pH Ur Specific [place] Urine Protein Urine Glucose (UA) Urine Ketones Urine Blood Urine Nitrite Ur Leukocyte Esterase Urine RBC Urine WBC Ur Squamous Epith Cells Urine Bacteria Acetone, Qual COVID-19 (KEYSHAWN) COVID-19 [employer] 01/18/22 01/18/22 01/18/22 20:09 20:09 22:00 MCV MCH MCHC RDW Plt Count MPV Immature Gran % (Auto) Neut % (Auto) Lymph % (Auto) [place] % (Auto) Eos % (Auto) Baso % (Auto) Lymph # (Auto) [place] # (Auto) Eos # (Auto) Baso # (Auto) Abs Immat Gran (auto) Absolute Neuts (auto) Absolute Nucleated RBC Nucleated RBC % (auto) Smear Tech's Comments PT INR APTT Anion Gap Estim Creat Clear Calc Estimated GFR POC Glucose 330 H Random Glucose Lactic Acid 2.0 Calcium Total Bilirubin AST ALT Alkaline Phosphatase Total Protein Albumin Urine Color Urine Appearance Urine pH Ur Specific [place] Urine Protein Urine Glucose (UA) Urine Ketones Urine Blood Urine Nitrite Ur Leukocyte Esterase Urine RBC Urine WBC Ur Squamous Epith Cells Urine Bacteria Acetone, Qual Negative COVID-19 (KEYSHAWN) COVID-[employer] 01/18/22 01/18/22 22:52 22:52 MCV MCH MCHC RDW Plt Count MPV Immature Gran % (Auto) Neut % (Auto) Lymph % (Auto) [place] % (Auto) Eos % (Auto) Baso % (Auto) Lymph # (Auto) [place] # (Auto) Eos # (Auto) Baso # (Auto) Abs Immat Gran (auto) Absolute Neuts (auto) Absolute Nucleated RBC Nucleated RBC % (auto) Smear Tech's Comments PT INR APTT Anion Gap Estim Creat Clear Calc Estimated GFR POC Glucose Random Glucose Lactic Acid Calcium Total Bilirubin AST ALT Alkaline Phosphatase Total Protein Albumin Urine Color YELLOW Urine Appearance CLEAR Urine pH 5.5 Ur Specific [place] 1.015 Urine Protein NEG Urine Glucose (UA) >=1000 H Urine Ketones NEG Urine Blood NEG Urine Nitrite NEG Ur Leukocyte Esterase NEG Urine RBC 0-2 Urine WBC 0-2 Ur Squamous Epith Cells 1+ Urine Bacteria 1+ Acetone, Qual COVID-19 (KEYSHAWN) Negative COVID-19 [employer]ct See Note Imaging Radiologist's Impressions: Impressions Foot X-Ray 01/18/22 20:53 IMPRESSION: 1. Status post partial amputation of the fifth toe. The amputation margin at the base of the fifth proximal phalanx is slightly indistinct and irregular. No immediate postoperative comparison available to assess for change. Difficult to exclude early small volume acute osteomyelitis. Suggest continued radiographic follow-up. Assessment and Plan (1) Osteomyelitis: Status: Acute (2) Rash: Status: Acute Plan 56-year-old male with past medical history diabetes and recently amputated right 5th toe secondary to osteomyelitis returns with foot pain found to have acute osteomyelitis of the same location # right foot osteomyelitis - osteomyelitis at the site of recent amputation - will obtain ESR and CRP - broad-spectrum antibiotic - surgery consulted - infectious disease consult # Rash - appears to be likely 2/2 Amoxiccillin - does not appear to be monkeypox - rash discussed with ID - feels that likely reaction to abx - to avoid penicillins # Acute hyperglycemia - likely 2/2 poor diabetic control and acute infection - treated with insulin - LDSSI - continue home lantus - diabetic diet DVT ppx: Lovenox Given acute osteomyelitis and need for IV abx and also failing outpatient therapy with recent amoxicilling, pt will require minimum 20night inpatient admission for further management and monitoring Quality Stroke Does the patient have a stroke diagnosis?: No VTE Prior VTE?: No VTE Risk Level:: Medical - moderate - high VTE Device Contraindication: Treatment Not Indicated VTE Drug Contraindication: N/A - Med Ordered
[2022-01-19 00:01] LABS: Glucose, Whole Blood 283 mg/dL (60-115)
[2022-01-19] MEDS: Morphine Sulfate 4 MG/ML CARTRIDGE IVPUSH (00:10)
[2022-01-19] MEDS: ondansetron HCL 4 MG/2 ML VIAL IVPUSH (00:10)
[2022-01-19] MEDS: 0.9 % Sodium Chloride Flush 3 ML SYRINGE IVFLUSH (00:10)
[2022-01-19 00:43] VITALS: BP 152/88; PULSE 72; RESP 16; O2SAT 99
[2022-01-19] MEDS: Heparin Sodium,Porcine 5,000 UNIT/ML VIAL 5000 UNIT SUBCUT ×2 (00:56→12:51)
[2022-01-19] MEDS: Insulin Glargine,Hum.rec.anlog 100 UNIT/ML 10 ML VIAL 44 UNIT SUBCUT ×2 (00:56→21:46)
[2022-01-19] MEDS: Metoclopramide HCl 10 MG TABLET PO ×2 (00:57→22:24)
[2022-01-19] MEDS: cefEPime HCl 1 GM in 0.9 % Sodium Chloride 50 ML IV (02:37)
--- NOTE | 2022-01-19 02:48 | PC.NURSE ---
pt previously in question for infectious disease regarding new onset rash to torso, back. taking precautions, PPE, isolated room, etc. provider spoke with infectious disease. not infectious, likely to be a medication reaction per ID. will continue to monitor closely
[2022-01-19 06:00] VITALS: BP 146/85; PULSE 71; RESP 16; TEMP 36.4; O2SAT 99
[2022-01-19 07:04] LABS: Glucose, Whole Blood 210 mg/dL (60-115)
[2022-01-19 07:08] LABS: MANUAL DIFF FLAG NO
[2022-01-19 07:11] LABS: Basophils Percent Auto 0.2 % (0-2); Eosinophils Absolute Auto 0.1 X10*3/uL (0.0-0.4); Eosinophils Percent Auto 0.6 % (0-4); Hematocrit 36.2 % (42.0-52.0); Hemoglobin 12.5 g/dl (14.0-18.0); Imm Gran Abs Auto 0.08 X10*3/uL (0.00-0.03); Imm Gran Pct Auto 0.5 % (0.0-0.4); Lymphocytes Absolute Auto 1.7 X10*3/uL (1.2-4.9); Mean Corpuscular HGB Conc 34.5 g/dl (31.0-36.0); Mean Corpuscular Hemoglobin 28.4 pg (27.0-33.0); Mean Corpuscular Volume 82.3 fL (80.0-98.0); Mean Platelet Volume 11.1 fL (9.4-12.4); Monocytes Absolute Auto 1.3 X10*3/uL (0.1-1.2); Monocytes Percent Auto 8.5 % (2-11); Neutrophils Absolute Auto 12.2 x10*3/uL (2.0-8.3); Neutrophils Percent Auto 79.2 % (45-73); Platelet Count 269 X10*3/uL (160-400); White Blood Count 15.4 X10*3/uL (4.8-10.8)
--- NOTE | 2022-01-19 07:16 | PHA.MEDREC ---
Pharmacy Consult ? Medication Reconciliation Pharmacy has reviewed the medication reconciliation completed by
[2022-01-19 07:23] LABS: C Reactive Protein 0.07 mg/dL (< or = 0.50)
[2022-01-19] MEDS: Insulin Lispro 100 UNIT/ML 3 ML VIAL SUBCUT (07:27)
[2022-01-19] MEDS: 0.9 % Sodium Chloride 1,000 ML 100 ML IVCONT ×2 (07:29→18:09)
[2022-01-19 07:31] LABS: Anion Gap 12 (12-20); Blood Urea Nitrogen 36 mg/dL (9-16); Calcium 8.3 mg/dL (8.4-10.2); Carbon Dioxide 17 mmol/L (22-29); Chloride 110 mmol/L (96-108); Creatinine Clr Calc Pharmacy 33.2; Estimated Glomerular Filt Rate 30; Glucose Random 241 mg/dL (60-115); Potassium 4.1 mmol/L (3.3-5.1); Sodium 135 mmol/L (135-145)
[2022-01-19 07:59] LABS: Erythrocyte Sedimentation Rate 9 MM/HR (0-15)
[2022-01-19] MEDS: Aspirin Enteric Coated 81 MG TABLET.DR PO (10:33)
[2022-01-19] MEDS: amLODIPine Besylate 5 MG TABLET PO (10:33)
[2022-01-19] MEDS: Lidocaine 4 % Patch ADH..PATCH 1 PATCH TRANSDERMA (10:33)
[2022-01-19] MEDS: predniSONE 10 MG TABLET PO (10:33)
[2022-01-19] MEDS: Atorvastatin Calcium 10 MG TABLET PO (10:33)
[2022-01-19] MEDS: Tacrolimus 1 MG CAPSULE 2 MG PO ×2 (10:34→21:46)
--- NOTE | 2022-01-19 10:40 | PC.NURSE ---
call placed to pharmacy for two medications missing from pyxis
[2022-01-19] MEDS: DULoxetine HCl 20 MG CAPSULE.DR PO (11:07)
[2022-01-19] MEDS: calcitrioL 0.25 MCG CAPSULE 0.5 MCG PO (11:07)
--- NOTE | 2022-01-19 11:30 | P.PNIM_ITS ---
Subjective Subjective Date of Service: 01/19/22 Review of Systems Follow up Osteomyelitis feeling better today good appetite Physical Exam Vital Signs: Vital Signs: Last Vital Signs Temp 97.6 F 01/19/22 06:00 Pulse 71 01/19/22 06:00 Resp 16 01/19/22 06:00 BP 146/85 H 01/19/22 06:00 Pulse Ox 99 01/19/22 06:00 O2 Del Method 01/19/22 06:00 BMI result Body Mass Index 29.5 Appearing in no acute distress lung sounds are clear to auscultation heart regular rate rhythm, clear S1, S2 positive bowel sounds, abdomen is soft, nontender neuro patient is alert x3, no focal deficits right foot 5th toe amp site Objective Data Active Medications Acetaminophen (Acetaminophen 325 Mg Tablet) 650 mg PO Q6H PRN PRN Reason: Pain, Mild (Pain Scale 1-3) Albuterol Sulfate (Albuterol Sulfate (0.083%) 2.5 Mg/3 Ml Vial.Neb) 2.5 mg INHALE TID PRN PRN Reason: Respiratory Distress Amlodipine Besylate (Amlodipine Besylate 5 Mg Tablet) 5 mg PO DAILY [facility]; Protocol Last Admin: 01/19/22 10:33 Dose: 5 mg Documented By: DARSHANA Aspirin (Aspirin Enteric Coated 81 Mg Tablet.) 81 mg PO DAILY [facility] Last Admin: 01/19/22 10:33 Dose: 81 mg Documented By: DARSHANA Atorvastatin Calcium (Atorvastatin Calcium 10 Mg Tablet) 10 mg PO DAILY [facility] Last Admin: 01/19/22 10:33 Dose: 10 mg Documented By: DARSHANA Calcitriol (Calcitriol 0.25 Mcg Capsule) 0.5 mcg PO DAILY [facility] Last Admin: 01/19/22 11:07 Dose: 0.5 mcg Documented By: DARSHANA Dextrose (Dextrose 50 % 25 Gm/50 Ml Syringe) 25 gm IVPUSH Q15M PRN; Protocol PRN Reason: per Hypoglycemia Standing Ord. Docusate Sodium (Docusate Sodium 100 Mg Capsule) 100 mg PO DAILY PRN PRN Reason: Constipation Duloxetine HCl (Duloxetine Hcl 20 Mg Capsule.) 20 mg PO DAILY [facility] Last Admin: 01/19/22 11:07 Dose: 20 mg Documented By: DARSHANA Famotidine (Famotidine 20 Mg Tablet) 40 mg PO BEDTIME [facility] Fluticasone Propionate (Fluticasone Propionate Nasal 16 Gm [place]) 2 spray NOSTRIL-B DAILY [facility] Last Admin: 01/19/22 10:18 Dose: Not Given Documented By: DARSHANA Non-Admin Reason: Patient Refused Gabapentin (Gabapentin 100 Mg Capsule) 100 mg PO BEDTIME [facility] Glucose (Glucose Gel 15 Gm Gel..Gram.) 15 gm PO Q15M PRN; Protocol PRN Reason: per Hypoglycemia Standing Ord. Heparin Sodium (Porcine) (Heparin Sodium,Porcine 5,000 Unit/Ml Vial) 5,000 unit SUBCUT Q12H [facility] Last Admin: 01/19/22 00:56 Dose: 5,000 unit Documented By: KASSANDRA Sodium Chloride (Ns) 1,000 mls @ 100 mls/hr IVCONT .Q10H [facility] Last Admin: 01/19/22 07:29 Dose: 100 mls/hr Documented By: DARSHANA Cefepime HCl 1 gm/ Sodium (Chloride) 50 mls @ 100 mls/hr IV Q12H [facility] Last Infusion: 01/19/22 04:18 Dose: 0 mls/hr Documented By: KASSANDRA Vancomycin HCl 750 mg/ Sodium (Chloride) 265 mls @ 265 mls/hr IV Q24H [facility] Insulin Glargine (Insulin Glargine,Hum.Rec.Anlog 100 Unit/Ml 10 Ml Vial) 44 unit SUBCUT BEDTIME [facility] Last Admin: 01/19/22 00:56 Dose: 44 unit Documented By: KASSANDRA Insulin Human Lispro (Insulin Lispro 100 Unit/Ml 3 Ml Vial) 0 unit SUBCUT QIDACHS [facility]; Protocol Last Admin: 01/19/22 07:27 Dose: 4 unit Documented By: DARSHANA Insulin Human Lispro (Insulin Lispro 100 Unit/Ml 3 Ml Vial) 10 unit SUBCUT TIDWM [facility] Last Admin: 01/19/22 07:33 Dose: Not Given Documented By: DARSHANA Non-Admin Reason: No Insulin Coverage Lidocaine (Lidocaine 4 % Patch Adh..Patch) 1 patch TRANSDERMA DAILY [facility] Last Admin: 01/19/22 10:33 Dose: 1 patch Documented By: DARSHANA Loperamide HCl (Loperamide Hcl 2 Mg Capsule) 2 mg PO Q6H PRN PRN Reason: Diarrhea Metoclopramide HCl (Metoclopramide Hcl 10 Mg Tablet) 10 mg PO BEDTIME [facility] Last Admin: 01/19/22 00:57 Dose: 10 mg Documented By: KASSANDRA Morphine Sulfate (Morphine Sulfate 4 Mg/Ml Cartridge) 4 mg IVPUSH Q4H PRN; Protocol PRN Reason: Pain, Severe (Pain Scale 7-10) Last Admin: 01/19/22 00:10 Dose: 4 mg Documented By: KASSANDRA Non-Formulary Medication (Cholecalciferol (Vitamin D3)) 1 cap PO SA@1000 [facility] Nystatin (Nystatin Cream 15 Gm Tube) 1 appl TOPICAL BID [facility]; Protocol Last Admin: 01/19/22 10:34 Dose: Not Given Documented By: DARSHANA Non-Admin Reason: Patient Refused Ondansetron HCl (Ondansetron Hcl 4 Mg/2 Ml Vial) 4 mg IVPUSH Q8H PRN PRN Reason: Nausea and Vomiting Last Admin: 01/19/22 00:10 Dose: 4 mg Documented By: KASSANDRA Pharmacy Consult (Consult Rx Vancomycin Dosing) 1 each MISCELLANE DAILY PRN PRN Reason: Consult order Prednisone (Prednisone 10 Mg Tablet) 10 mg PO DAILY [facility] Last Admin: 01/19/22 10:33 Dose: 10 mg Documented By: DARSHANA Sodium Chloride (0.9 % Sodium Chloride Flush 3 Ml Syringe) 3 ml IVFLUSH QSHIFT [facility] Last Admin: 01/19/22 07:30 Dose: Not Given Documented By: DARSHANA Non-Admin Reason: IV Running Tacrolimus (Tacrolimus 1 Mg Capsule) 2 mg PO BEDTIME [facility] Last Admin: 01/19/22 01:03 Dose: Not Given Documented By: KASSANDRA Non-Admin Reason: Med Not Available Tacrolimus (Tacrolimus 1 Mg Capsule) 2 mg PO DAILY [facility] Last Admin: 01/19/22 10:34 Dose: 2 mg Documented By: DARSHANA Tramadol HCl (Tramadol Hcl 50 Mg Tablet) 50 mg PO Q8H PRN PRN Reason: Pain, Moderate (Pain Scale 4-6 Labs CBC & Chem 7: 01/19/22 06:43 01/19/22 06:43 Labs: Laboratory Results - last 24 hr 01/18/22 01/18/22 01/18/22 18:18 18:18 20:09 MCV 83.4 MCH 27.9 MCHC 33.4 RDW 13.2 Plt Count 300 MPV 10.6 Immature Gran % (Auto) 0.3 Neut % (Auto) 93.8 H Lymph % (Auto) 3.2 L [place] % (Auto) 2.5 Eos % (Auto) 0.0 Baso % (Auto) 0.2 Lymph # (Auto) 0.4 L [place] # (Auto) 0.3 Eos # (Auto) 0.0 Baso # (Auto) 0.0 Abs Immat Gran (auto) 0.04 H Absolute Neuts (auto) 11.2 H Absolute Nucleated RBC 0.000 Nucleated RBC % (auto) 0.0 Smear Tech's Comments VERIFIED ESR PT 9.9 L INR 0.9 APTT 27.9 Anion Gap 16 Estim Creat Clear Calc 25.8 Estimated GFR 23 POC Glucose Random Glucose 699 H* Lactic Acid Calcium 8.4 Total Bilirubin 0.5 AST 23 D ALT 38 Alkaline Phosphatase 142 H C-Reactive Protein Total Protein 6.6 Albumin 3.7 Urine Color Urine Appearance Urine pH Ur Specific [place] Urine Protein Urine Glucose (UA) Urine Ketones Urine Blood Urine Nitrite Ur Leukocyte Esterase Urine RBC Urine WBC Ur Squamous Epith Cells Urine Bacteria Acetone, Qual COVID-19 ([facility]) COVID-[employer] 01/18/22 01/18/22 01/18/22 20:09 20:09 22:00 MCV MCH MCHC RDW Plt Count MPV Immature Gran % (Auto) Neut % (Auto) Lymph % (Auto) [place] % (Auto) Eos % (Auto) Baso % (Auto) Lymph # (Auto) [place] # (Auto) Eos # (Auto) Baso # (Auto) Abs Immat Gran (auto) Absolute Neuts (auto) Absolute Nucleated RBC Nucleated RBC % (auto) Smear Tech's Comments ESR PT INR APTT Anion Gap Estim Creat Clear Calc Estimated GFR POC Glucose 330 H Random Glucose Lactic Acid 2.0 Calcium Total Bilirubin AST ALT Alkaline Phosphatase C-Reactive Protein Total Protein Albumin Urine Color Urine Appearance Urine pH Ur Specific [place] Urine Protein Urine Glucose (UA) Urine Ketones Urine Blood Urine Nitrite Ur Leukocyte Esterase Urine RBC Urine WBC Ur Squamous Epith Cells Urine Bacteria Acetone, Qual Negative COVID-19 ([facility]SHAWN) COVID-[employer] 07/01/18/22 01/18/22 22:52 22:52 23:56 MCV MCH MCHC RDW Plt Count MPV Immature Gran % (Auto) Neut % (Auto) Lymph % (Auto) [place] % (Auto) Eos % (Auto) Baso % (Auto) Lymph # (Auto) [place] # (Auto) Eos # (Auto) Baso # (Auto) Abs Immat Gran (auto) Absolute Neuts (auto) Absolute Nucleated RBC Nucleated RBC % (auto) Smear Tech's Comments ESR PT INR APTT Anion Gap Estim Creat Clear Calc Estimated GFR POC Glucose 283 H Random Glucose Lactic Acid Calcium Total Bilirubin AST ALT Alkaline Phosphatase C-Reactive Protein Total Protein Albumin Urine Color YELLOW Urine Appearance CLEAR Urine pH 5.5 Ur Specific [place] 1.015 Urine Protein NEG Urine Glucose (UA) >=1000 H Urine Ketones NEG Urine Blood NEG Urine Nitrite NEG Ur Leukocyte Esterase NEG Urine RBC 0-2 Urine WBC 0-2 Ur Squamous Epith Cells 1+ Urine Bacteria 1+ Acetone, Qual COVID-19 ([facility]SHAWN) Negative COVID-19 Clin Com See Note 01/19/22 01/19/22 01/19/22 06:43 06:43 06:43 MCV 82.3 MCH 28.4 MCHC 34.5 RDW 13.0 Plt Count 269 MPV 11.1 Immature Gran % (Auto) 0.5 H Neut % (Auto) 79.2 H Lymph % (Auto) 11.0 L [place] % (Auto) 8.5 Eos % (Auto) 0.6 Baso % (Auto) 0.2 Lymph # (Auto) 1.7 [place] # (Auto) 1.3 H Eos # (Auto) 0.1 Baso # (Auto) 0.0 Abs Immat Gran (auto) 0.08 H Absolute Neuts (auto) 12.2 H Absolute Nucleated RBC 0.000 Nucleated RBC % (auto) 0.0 Smear Tech's Comments ESR 9 PT INR APTT Anion Gap 12 Estim Creat Clear Calc 33.2 Estimated GFR 30 POC Glucose Random Glucose 241 H D Lactic Acid Calcium 8.3 L Total Bilirubin AST ALT Alkaline Phosphatase C-Reactive Protein Total Protein Albumin Urine Color Urine Appearance Urine pH Ur Specific [place] Urine Protein Urine Glucose (UA) Urine Ketones Urine Blood Urine Nitrite Ur Leukocyte Esterase Urine RBC Urine WBC Ur Squamous Epith Cells Urine Bacteria Acetone, Qual COVID-19 ([facility]SHAWN) COVID-19 Clin Com 01/19/22 01/19/22 06:43 07:00 MCV MCH MCHC RDW Plt Count MPV Immature Gran % (Auto) Neut % (Auto) Lymph % (Auto) [place] % (Auto) Eos % (Auto) Baso % (Auto) Lymph # (Auto) [place] # (Auto) Eos # (Auto) Baso # (Auto) Abs Immat Gran (auto) Absolute Neuts (auto) Absolute Nucleated RBC Nucleated RBC % (auto) Smear Tech's Comments ESR PT INR APTT Anion Gap Estim Creat Clear Calc Estimated GFR POC Glucose 210 H Random Glucose Lactic Acid Calcium Total Bilirubin AST ALT Alkaline Phosphatase C-Reactive Protein 0.07 Total Protein Albumin Urine Color Urine Appearance Urine pH Ur Specific [place] Urine Protein Urine Glucose (UA) Urine Ketones Urine Blood Urine Nitrite Ur Leukocyte Esterase Urine RBC Urine WBC Ur Squamous Epith Cells Urine Bacteria Acetone, Qual COVID-19 ([facility]SHAWN) COVID-19 Clin Com Assessment and Plan (1) Osteomyelitis: Status: Acute Plan 56-year-old male with past medical history diabetes and recently amputated right 5th toe secondary to osteomyelitis returns with foot pain found to have acute osteomyelitis of the same location Right foot osteomyelitis osteomyelitis at the site of recent amputation continue vancomycin surgery following no need for surgical intervention at this time plan for picc line, vanco for 6 weeks Rash. Resolved appears to be likely r/t Amoxiccillin rash discussed with ID - feels that likely reaction to abx avoid penicillins Acute hyperglycemia likely secondary to poor diabetic control and acute infection ss, ada diet continue home lantus DVT ppx Lovenox Attending Dr. Albarado continued hospitalization for acute osteomyelitis and need for IV abx and also failing outpatient therapy with recent amoxicillin Quality Stroke Does the patient have a stroke diagnosis?: No VTE Prior VTE?: No VTE Risk Level:: Medical - moderate - high VTE Device Contraindication: Treatment Not Indicated VTE Drug Contraindication: N/A - Med Ordered
[2022-01-19 12:00] VITALS: BP 128/88; PULSE 70; RESP 18; TEMP 36.4; O2SAT 100
--- NOTE | 2022-01-19 12:36 | P.CONGS_ITS ---
History of Present Illness Consult details Consult date: 01/19/22 <ADONIS Ackerman - Last Filed: 01/19/22 12:53> Narrative: Mr. Sheriff is a 56 year old Gambian speaking male with PMHx significant for diabetes, hypertension who recently underwent recently amputation of 5th right toe in December at [facility] on January 10, according to pt. Pt had been discharged with a 3 day course of antibiotics which he reports he completed and told to follow up with his surgeon in about 2 weeks. He presents to this hospital with complaints of amputation site pain/tingling and right leg redness. At home he reports feeling feverish. He had been walking on his foot but reports he had not been given a boot or any crutches/devices for assistance. Pt is seen with assistance of chief digital media officer. <ADONIS Ackerman - Last Filed: 01/19/22 12:53> Review of Systems Constitutional: Constitutional: Reports as per HPI and Reports no additional constitutional complaints <ADONIS Ackerman - Last Filed: 01/19/22 12:53> [facility] Past Medical History Medical History: Medical History (Updated 01/19/22 @ 06:27 by Gil Roach MD) Amputation of fifth toe of right foot Diabetes History of osteomyelitis HTN (hypertension) <ADONIS Ackerman - Last Filed: 01/19/22 12:53> Family History Family History: Family History (Updated 01/19/22 @ 06:27 by Gil Roach MD) Other Diabetes No family history of coronary artery disease <ADONIS Ackerman - Last Filed: 01/19/22 12:53> Surgical History Surgical History: Surgical History H/O arteriovenostomy for renal dialysis <ADONIS Ackerman - Last Filed: 01/19/22 12:53> Social History Social History: Social History Household Members: None Housing: House Do you presently have visiting nurse or other home services: No Alcohol intake: never Patient Tobacco Use Status: Never used Tobacco <ADONIS Ackerman - Last Filed: 01/19/22 12:53> Meds Allergies/Adverse reactions: Allergies Allergy/AdvReac Type Severity Reaction Status Date / Time hydromorphone [From DILAUDID] Allergy Mild ITCHINESS Verified 12/08/21 10:45 diphenhydramine Allergy Unknown UNK Verified 12/08/21 10:45 [From BENADRYL] <ADONIS Ackerman - Last Filed: 01/19/22 12:53> Active Medications: Current Medications Acetaminophen (Acetaminophen 325 Mg Tablet) 650 mg PO Q6H PRN PRN Reason: Pain, Mild (Pain Scale 1-3) Albuterol Sulfate (Albuterol Sulfate (0.083%) 2.5 Mg/3 Ml Vial.[place]) 2.5 mg INHALE TID PRN PRN Reason: Respiratory Distress Amlodipine Besylate (Amlodipine Besylate 5 Mg Tablet) 5 mg PO DAILY FOR[facility]LY [facility], [facility]; Protocol Last Admin: 01/19/22 10:33 Dose: 5 mg Aspirin (Aspirin Enteric Coated 81 Mg Tablet.) 81 mg PO DAILY [facility], [facility]1983 Last Admin: 01/19/22 10:33 Dose: 81 mg Atorvastatin Calcium (Atorvastatin Calcium 10 Mg Tablet) 10 mg PO DAILY [facility], [facility] Last Admin: 01/19/22 10:33 Dose: 10 mg Calcitriol (Calcitriol 0.25 Mcg Capsule) 0.5 mcg PO DAILY [facility], [facility]1983 Last Admin: 01/19/22 11:07 Dose: 0.5 mcg Dextrose (Dextrose 50 % 25 Gm/50 Ml Syringe) 25 gm IVPUSH Q15M PRN; Protocol PRN Reason: per Hypoglycemia Standing Ord. Docusate Sodium (Docusate Sodium 100 Mg Capsule) 100 mg PO DAILY PRN PRN Reason: Constipation Duloxetine HCl (Duloxetine Hcl 20 Mg Capsule.) 20 mg PO DAILY [facility], [facility] Last Admin: 01/19/22 11:07 Dose: 20 mg Famotidine (Famotidine 20 Mg Tablet) 40 mg PO BEDTIME [facility], [facility]1983 Fluticasone Propionate (Fluticasone Propionate Nasal 16 Gm [place]) 2 spray N OSTRIL-B DAILY FOR[facility]LY [facility], [facility]1983 Last Admin: 01/19/22 10:18 Dose: Not Given Gabapentin (Gabapentin 100 Mg Capsule) 100 mg PO BEDTIME [facility], [facility]1983 Glucose (Glucose Gel 15 Gm Gel..Gram.) 15 gm PO Q15M PRN; Protocol PRN Reason: per Hypoglycemia Standing Ord. Heparin Sodium (Porcine) (Heparin Sodium,Porcine 5,000 Unit/Ml Vial) 5,000 unit SUBCUT Q12H [facility], [facility] Last Admin: 01/19/22 00:56 Dose: 5,000 unit Sodium Chloride (Ns) 1,000 mls @ 100 mls/hr IVCONT .Q10H [facility], [facility] Last Admin: 01/19/22 07:29 Dose: 100 mls/hr Cefepime HCl 1 gm/ Sodium (Chloride) 50 mls @ 100 mls/hr IV Q12H [facility], [facility] Last Infusion: 01/19/22 04:18 Dose: Infused Vancomycin HCl 750 mg/ Sodium (Chloride) 265 mls @ 265 mls/hr IV Q24H [facility], [facility]1983 Insulin Glargine (Insulin Glargine,Hum.Rec.Anlog 100 Unit/Ml 10 Ml Vial) 44 unit SUBCUT BEDTIME [facility], [facility] Last Admin: 01/19/22 00:56 Dose: 44 unit Insulin Human Lispro (Insulin Lispro 100 Unit/Ml 3 Ml Vial) 0 unit SUBCUT QID ACHS [facility], [facility]–1983; Protocol Last Admin: 01/19/22 07:27 Dose: 4 unit Insulin Human Lispro (Insulin Lispro 100 Unit/Ml 3 Ml Vial) 10 unit SUBCUT TIDWM [facility], [facility]1983 Last Admin: 01/19/22 07:33 Dose: Not Given Lidocaine (Lidocaine 4 % Patch Adh..Patch) 1 patch TRANSDERMA DAILY [facility], [facility] Last Admin: 01/19/22 10:33 Dose: 1 patch Loperamide HCl (Loperamide Hcl 2 Mg Capsule) 2 mg PO Q6H PRN PRN Reason: Diarrhea Metoclopramide HCl (Metoclopramide Hcl 10 Mg Tablet) 10 mg PO BEDTIME [facility] Last Admin: 01/19/22 00:57 Dose: 10 mg Morphine Sulfate (Morphine Sulfate 4 Mg/Ml Cartridge) 4 mg IVPUSH Q4H PRN; Protocol PRN Reason: Pain, Severe (Pain Scale 7-10) Last Admin: 01/19/22 00:10 Dose: 4 mg Nystatin (Nystatin Cream 15 Gm Tube) 1 appl TOPICAL BID [facility], [facility]1983; Protocol Last Admin: 01/19/22 10:34 Dose: Not Given Ondansetron HCl (Ondansetron Hcl 4 Mg/2 Ml Vial) 4 mg IVPUSH Q8H PRN PRN Reason: Nausea and Vomiting Last Admin: 01/19/22 00:10 Dose: 4 mg Pharmacy Consult (Consult Rx Vancomycin Dosing) 1 each MISCELLANE DAILY PRN PRN Reason: Consult order Prednisone (Prednisone 10 Mg Tablet) 10 mg PO DAILY [facility], [facility] Last Admin: 01/19/22 10:33 Dose: 10 mg Sodium Chloride (0.9 % Sodium Chloride Flush 3 Ml Syringe) 3 ml IVFLUSH QSHIFT [facility], [facility] Last Admin: 01/19/22 07:30 Dose: Not Given Tacrolimus (Tacrolimus 1 Mg Capsule) 2 mg PO BEDTIME [facility] Last Admin: 01/19/22 01:03 Dose: Not Given Tacrolimus (Tacrolimus 1 Mg Capsule) 2 mg PO DAILY [facility] Last Admin: 01/19/22 10:34 Dose: 2 mg Tramadol HCl (Tramadol Hcl 50 Mg Tablet) 50 mg PO Q8H PRN PRN Reason: Pain, Moderate (Pain Scale 4-6 Vitamin D (Cholecalciferol (Vitamin D3) 25 Mcg Tablet) 50 mcg PO DAILY [facility] <ADONIS Ackerman - Last Filed: 01/19/22 12:53> Home medications: Home Medications Medication Instructions Recorded Confirmed Last Taken Type albuterol sulfate 2.5 mg/3 mL 1 amp inhalation TID PRN 08/26/21 01/18/22 Unknown History (0.083 %) solution for nebulization Respiratory Distress albuterol sulfate 90 mcg/actuation 1 puff PO Q4H PRN wheezing 08/26/21 01/18/22 Unknown History aerosol inhaler (ProAir HFA) amlodipine 5 mg tablet 5 mg PO DAILY 08/26/21 01/18/22 12/11/21 History aspirin 81 mg tablet,delayed 81 mg PO DAILY 08/26/21 01/18/22 12/11/21 History release atorvastatin 10 mg tablet 10 mg PO DAILY 08/26/21 01/18/22 12/11/21 History calcitriol 0.5 mcg capsule 0.5 mcg PO DAILY 08/26/21 01/18/22 12/11/21 History cholecalciferol (vitamin D3) 1,250 1 cap PO SA@1000 08/26/21 01/18/22 Unknown History mcg (50,000 unit) capsule duloxetine 20 mg capsule,delayed 20 mg PO DAILY 08/26/21 01/18/22 12/11/21 History release insulin glargine 100 unit/mL (3 44 unit subcut BEDTIME 08/26/21 01/18/22 12/10/21 History mL) subcutaneous pen (Lantus Solostar U-100 Insulin) insulin lispro 100 unit/mL 10 unit subcut TIDWM 08/26/21 01/18/22 Unknown History subcutaneous pen (Humalog KwikPen (U-100) Insulin) lidocaine 5 % topical patch 1 patch topical DAILY 08/26/21 01/18/22 Unknown Hi story (Lidoderm) metoclopramide HCl 10 mg tablet 10 mg PO BEDTIME 08/26/21 01/18/22 12/10/21 History mupirocin 2 % topical ointment 1 appl topical TID 08/26/21 01/19/22 Unknown History tacrolimus 1 mg capsule, 2 mg PO DAILY 08/26/21 01/18/22 12/11/21 History immediate-release tramadol 50 mg tablet 50 mg PO Q8H PRN moderate pain 08/26/21 01/18/22 Unknown History diclofenac sodium 1 % topical gel 2 g topical QID PRN Pain 12/11/21 01/18/22 Unknown History famotidine 40 mg tablet 40 mg PO BEDTIME 12/11/21 01/18/22 12/10/21 History gabapentin 100 mg capsule 100 mg PO BEDTIME 12/11/21 01/18/22 12/10/21 History loperamide 2 mg tablet 2 mg PO Q6H PRN Diarrhea 12/11/21 01/18/22 Unknown History pantoprazole 40 mg tablet,delayed 40 mg PO BID 12/11/21 01/18/22 12/11/21 Hi story release prednisone 10 mg tablet 10 mg PO DAILY 12/11/21 01/18/22 12/11/21 History <ADONIS Ackerman - Last Filed: 01/19/22 12:53> Physical Exam Vital Signs: Vital Signs: Last Vital Signs Temp 97.5 F 01/19/22 12:00 Pulse 70 01/19/22 12:00 Resp 18 01/19/22 12:00 BP 128/88 01/19/22 12:00 Pulse Ox 100 01/19/22 12:00 O2 Del Method 01/19/22 12:00 BMI result Body Mass Index 29.5 <ADONIS Ackerman - Last Filed: 01/19/22 12:53> Const: General: cooperative and no acute distress <ADONIS Ackerman - Last Filed: 01/19/22 12:53> Orientation/consciousness: patient oriented x3 <ADONIS Ackerman - Last Filed: 01/19/22 12:53> Neuro: General: patient oriented x3 <ADONIS Ackerman - Last Filed: 01/19/22 12:53> Extrem: Other: right foot with wound at the site of 5th toe amputation- interrupted sutures intact, wound is dry with small amount of overlying black/nonviable tissue between sutures but no erythema around wound or extending up foot/leg, no purulent drainage, no warmth or edema. Pt reports pain with palpation of the wound, otherwise has no sensation in his toes or distal foot. <ADONIS Ackerman - Last Filed: 01/19/22 12:53> Results Labs Result diagrams: : 01/19/22 06:43 01/19/22 06:43 <ADONIS Ackerman - Last Filed: 01/19/22 12:53> Labs: Abnormal lab results 01/18/22 01/18/22 01/18/22 Range/Units 18:18 18:18 20:09 WBC 12.0 H (4.8-10.8) X10*3/uL RBC (4.60-5.80) X10*6/uL Hgb 13.3 L (14.0-18.0) g/dl Hct 39.8 L (42.0-52.0) % Immature Gran % (Auto) (0.0-0.4) % Neut % (Auto) 93.8 H (45-73) % Lymph % (Auto) 3.2 L (20-40) % Lymph # (Auto) 0.4 L (1.2-4.9) X10*3/uL Day # (Auto) (0.1-1.2) X10*3/uL Abs Immat Gran (auto) 0.04 H (0.00-0.03) X10*3/uL Absolute Neuts (auto) 11.2 H (2.0-8.3) x10*3/uL PT 9.9 L (10.0-13.1) SEC Sodium 129 L (135-145) mmol/L Chloride (96-108) mmol/L Carbon Dioxide 14 L (22-29) mmol/L BUN 42 H D (9-16) mg/dL Creatinine 2.91 H (0.5-1.4) mg/dL POC Glucose (60-115) mg/dL Random Glucose 699 H* (60-115) mg/dL Calcium (8.4-10.2) mg/dL Alkaline Phosphatase 142 H (39-117) U/L Urine Glucose (UA) (NEG) MG/DL 01/18/22 01/18/22 01/18/22 Range/Units 22:00 22:52 23:56 WBC (4.8-10.8) X10*3/uL RBC (4.60-5.80) X10*6/uL Hgb (14.0-18.0) g/dl Hct (42.0-52.0) % Immature Gran % (Auto) (0.0-0.4) % Neut % (Auto) (45-73) % Lymph % (Auto) (20-40) % Lymph # (Auto) (1.2-4.9) X10*3/uL Day # (Auto) (0.1-1.2) X10*3/uL Abs Immat Gran (auto) (0.00-0.03) X10*3/uL Absolute Neuts (auto) (2.0-8.3) x10*3/uL PT (10.0-13.1) SEC Sodium (135-145) mmol/L Chloride (96-108) mmol/L Carbon Dioxide (22-29) mmol/L BUN (9-16) mg/dL Creatinine (0.5-1.4) mg/dL POC Glucose 330 H 283 H (60-115) mg/dL Random Glucose (60-115) mg/dL Calcium (8.4-10.2) mg/dL Alkaline Phosphatase (39-117) U/L Urine Glucose (UA) >=1000 H (NEG) MG/DL 01/19/22 01/19/22 01/19/22 Range/Units 06:43 06:43 07:00 WBC 15.4 H (4.8-10.8) X10*3/uL RBC 4.40 L (4.60-5.80) X10*6/uL Hgb 12.5 L (14.0-18.0) g/dl Hct 36.2 L (42.0-52.0) % Immature Gran % (Auto) 0.5 H (0.0-0.4) % Neut % (Auto) 79.2 H (45-73) % Lymph % (Auto) 11.0 L (20-40) % Lymph # (Auto) (1.2-4.9) X10*3/uL Day # (Auto) 1.3 H (0.1-1.2) X10*3/uL Abs Immat Gran (auto) 0.08 H (0.00-0.03) X10*3/uL Absolute Neuts (auto) 12.2 H (2.0-8.3) x10*3/uL PT (10.0-13.1) SEC Sodium (135-145) mmol/L Chloride 110 H (96-108) mmol/L Carbon Dioxide 17 L (22-29) mmol/L BUN 36 H (9-16) mg/dL Creatinine 2.26 H (0.5-1.4) mg/dL POC Glucose 210 H (60-115) mg/dL Random Glucose 241 H D (60-115) mg/dL Calcium 8.3 L (8.4-10.2) mg/dL Alkaline Phosphatase (39-117) U/L Urine Glucose (UA) (NEG) MG/DL Short CBC 01/18/22 01/19/22 Range/Units 18:18 06:43 WBC 12.0 H 15.4 H (4.8-10.8) X10*3/uL Hgb 13.3 L 12.5 L (14.0-18.0) g/dl Hct 39.8 L 36.2 L (42.0-52.0) % Plt Count 300 269 (160-400) X10*3/uL BMP 01/18/22 01/19/22 18:18 06:43 Sodium 129 L 135 Potassium 4.6 4.1 Chloride 104 110 H Carbon Dioxide 14 L 17 L BUN 42 H D 36 H Creatinine 2.91 H 2.26 H Calcium 8.4 8.3 L Liver Function 01/18/22 Range/Units 18:18 Total Bilirubin 0.5 (0.0-1.0) mg/dL AST 23 D (5-37) U/L ALT 38 (0-40) U/L Alkaline Phosphatase 142 H (39-117) U/L Albumin 3.7 (3.5-5.0) g/dL Urine 01/18/22 Range/Units 22:52 Urine Color YELLOW Urine Appearance CLEAR Urine pH 5.5 (5.0-8.0) Ur Specific [place] 1.015 (1.005-1.025) Urine Protein NEG (NEG-TRACE) MG/DL Urine Glucose (UA) >=1000 H (NEG) MG/DL All other labs normal. <ADONIS Ackerman - Last Filed: 01/19/22 12:53> Imaging Additional studies: Ordering Physician: Jess Fallon NP Date of Service: 01/18/22 Procedure(s): XR foot RT min 3V Accession Number(s): [id number] cc: Jess Fallon NP~ EXAMINATION: XR FOOT, RIGHT CLINICAL INFORMATION: Status post fifth toe amputation, suspected infection? COMPARISON: Right foot radiographs 12/30/2021? TECHNIQUE: AP, lateral, and oblique views of the right foot. FINDINGS: Recent interval partial amputation of the fifth toe to the base of the proximal phalanx. Amputation margin is slightly irregular and indistinct. No tracking soft tissue gas. No periostitis. No fracture or dislocation. Joint spaces are maintained. Lisfranc alignment is preserved. Extensive vascular calcifications. XR/XR foot RT min 3V IMPRESSION: ? 1. Status post partial amputation of the fifth toe. The amputation margin at the base of the fifth proximal phalanx is slightly indistinct and irregular. No immediate postoperative comparison available to assess for change. Difficult to exclude early small volume acute osteomyelitis. Suggest continued radiographic follow-up. <ADONIS Ackerman - Last Filed: 01/19/22 12:53> Assessment and Plan (1) Osteomyelitis: Status: Acute <ADONIS Ackerman - Last Filed: 01/19/22 12:53> Patient was seen and examined right 5th toe amputation site with sutures, difficult discharge, induration or cellulitis minimal redness no need to do any debridement at this time he can follow-up with his surgeon the rest of treatment as per the hospitalist service patient was seen independently agree with ADONIS Harp <Marquez Silverio MD - Last Filed: 01/19/22 13:30> (2) Right foot pain: Status: Acute <ADONIS Ackerman - Last Filed: 01/19/22 12:53> Cellulitis appears to be improving, without evidence of active infection at the amputation site. X-ray reviewed, likely post-surgical changes from very recent amputation Plan to continue IV antibiotics. (vanco, cefepime) Wound may remain open to air. Keep leg elevated, avoid pressure or walking on wound. Optimize glycemic c ontrol. No plans for surgical intervention at this time. Pt seen and examined with Dr. Silverio. <ADONIS Ackerman - Last Filed: 01/19/22 12:53> Procedures Date of Service Date of Service: 01/19/22 <ADONIS Ackerman - Last Filed: 01/19/22 12:53>
[2022-01-19 12:46] LABS: Glucose, Whole Blood 96 mg/dL (60-115)
[2022-01-19] MEDS: Insulin Lispro 100 UNIT/ML 3 ML VIAL 10 UNIT SUBCUT ×2 (12:50→17:13)
--- NOTE | 2022-01-19 14:41 | MHC.CM.PN ---
Addendum entered by Carmen Noonan 01/19/22 14:48: Patient completed HCP form naming his mother Desiree Sheriff as agent. Original and copies given to patient, copy uploaded to [facility], and Copy filed in chart. Original Note: Lithuanian speaking patient. Patient reports he lives alone; however, has mother and sister who live on same street, mom across the street. He reports he is independent at home and community, no DME or home services. He reports PCP is Dr. Zoraida Luo of [facility]. Patient is Covid va'x x3 (MRNA). Patient reports he will drive himself home, car in ED parking lot. Patient reports he will be able to manage the 6 weeks of home IV antibiotics and reports mother and sister will assist. D/C Plan: Home with [facility]. Referrals have been made to [facility] and [facility].
[2022-01-19 16:00] VITALS: BP 131/82; PULSE 78; RESP 16; TEMP 36.3; O2SAT 99
[2022-01-19 16:47] LABS: Glucose, Whole Blood 95 mg/dL (60-115)
[2022-01-19 20:48] LABS: Glucose, Whole Blood 149 mg/dL (60-115)
[2022-01-19] MEDS: Famotidine 20 MG TABLET 40 MG PO (21:46)
[2022-01-19] MEDS: Gabapentin 100 MG CAPSULE PO (21:46)
[2022-01-19 23:54] VITALS: BP 132/84; PULSE 71; RESP 17; TEMP 36.7; O2SAT 99
[2022-01-20] MEDS: vancomycin HCL 750 MG in 0.9 % Sodium Chloride 250 ML 265 MG IV (01:18)
[2022-01-20 04:00] VITALS: BP 132/80; PULSE 83; RESP 17; TEMP 36.3; O2SAT 98
[2022-01-20] MEDS: 0.9 % Sodium Chloride 1,000 ML 100 ML IVCONT ×2 (06:03→15:17)
[2022-01-20 07:13] VITALS: BP 144/81; PULSE 82; RESP 18; TEMP 36.2; O2SAT 99
[2022-01-20 07:31] LABS: Glucose, Whole Blood 60 mg/dL (60-115)
[2022-01-20 07:59] LABS: Creatinine Clr Calc Pharmacy 38.3; Estimated Glomerular Filt Rate 36
--- NOTE | 2022-01-20 08:36 | HE.PHANOTE ---
Vancomycin Dosing Addendum Patient received a proper load and one dose of 750mg. Maintenance dose is 750mg Q24h at the moment. Patient's diagnosis is osteomylitis which indicates a trough on the higher side of the AUC window of 400-600 mg/L/hr. Patients renal function is improving, down to 1.96 from 2.91. Levels are due / @2100. Plan to get level and reassess dose if needed. Predicted AUC 487 mg/L/hr.
[2022-01-20] MEDS: DULoxetine HCl 20 MG CAPSULE.DR PO (08:40)
[2022-01-20] MEDS: Acetaminophen 325 MG TABLET 650 MG PO (08:40)
[2022-01-20] MEDS: calcitrioL 0.25 MCG CAPSULE 0.5 MCG PO (08:40)
[2022-01-20] MEDS: Aspirin Enteric Coated 81 MG TABLET.DR PO (08:40)
[2022-01-20] MEDS: predniSONE 10 MG TABLET PO (08:40)
[2022-01-20] MEDS: Atorvastatin Calcium 10 MG TABLET PO (08:40)
[2022-01-20] MEDS: Tacrolimus 1 MG CAPSULE 2 MG PO (08:40)
[2022-01-20] MEDS: Lidocaine 4 % Patch ADH..PATCH 1 PATCH TRANSDERMA (08:41)
[2022-01-20] MEDS: amLODIPine Besylate 5 MG TABLET PO (08:41)
--- NOTE | 2022-01-20 09:08 | HO.PM.IMPN ---
Subjective Subjective Date of Service: 01/20/22 Review of Systems Follow up Osteomyelitis feeling better today good appetite Physical Exam Vital Signs: Vital Signs: Last Vital Signs Temp 97.1 F 01/20/22 07:13 Pulse 82 01/20/22 07:13 Resp 18 01/20/22 07:13 BP 144/81 H 01/20/22 07:13 Pulse Ox 99 01/20/22 07:13 O2 Del Method 01/20/22 07:13 BMI result Body Mass Index 29.5 Appearing in no acute distress lung sounds are clear to auscultation heart regular rate rhythm, clear S1, S2 positive bowel sounds, abdomen is soft, nontender neuro patient is alert x3, no focal deficits Right foot 5th toe amp Objective Data Active Medications Acetaminophen (Acetaminophen 325 Mg Tablet) 650 mg PO Q6H PRN PRN Reason: Pain, Mild (Pain Scale 1-3) Last Admin: 01/20/22 08:40 Dose: 650 mg Documented By: LUANN Albuterol Sulfate (Albuterol Sulfate (0.083%) 2.5 Mg/3 Ml Vial.[place]) 2.5 mg INHALE TID PRN PRN Reason: Respiratory Distress Amlodipine Besylate (Amlodipine Besylate 5 Mg Tablet) 5 mg PO DAILY [facility]; Protocol Last Admin: 01/20/22 08:41 Dose: 5 mg Documented By: LUANN Aspirin (Aspirin Enteric Coated 81 Mg Tablet.) 81 mg PO DAILY [facility] Last Admin: 01/20/22 08:40 Dose: 81 mg Documented By: LUANN Atorvastatin Calcium (Atorvastatin Calcium 10 Mg Tablet) 10 mg PO DAILY [facility] Last Admin: 01/20/22 08:40 Dose: 10 mg Documented By: LUANN Calcitriol (Calcitriol 0.25 Mcg Capsule) 0.5 mcg PO DAILY [facility] Last Admin: 01/20/22 08:40 Dose: 0.5 mcg Documented By: LUANN Dextrose (Dextrose 50 % 25 Gm/50 Ml Syringe) 25 gm IVPUSH Q15M PRN; Protocol PRN Reason: per Hypoglycemia Standing Ord. Docusate Sodium (Docusate Sodium 100 Mg Capsule) 100 mg PO DAILY PRN PRN Reason: Constipation Duloxetine HCl (Duloxetine Hcl 20 Mg Capsule.) 20 mg PO DAILY [facility] Last Admin: 01/20/22 08:40 Dose: 20 mg Documented By: ULANN Famotidine (Famotidine 20 Mg Tablet) 40 mg PO BEDTIME [facility] Last Admin: 01/19/22 21:46 Dose: 40 mg Documented By: NAE Fluticasone Propionate (Fluticasone Propionate Nasal 16 Gm [place]) 2 spray NOSTRIL-B DAILY [facility] Last Admin: 01/20/22 08:42 Dose: Not Given Documented By: LUANN Non-Admin Reason: Med Not Available Gabapentin (Gabapentin 100 Mg Capsule) 100 mg PO BEDTIME [facility] Last Admin: 01/19/22 21:46 Dose: 100 mg Documented By: NAE Glucose (Glucose Gel 15 Gm Gel..Gram.) 15 gm PO Q15M PRN; Protocol PRN Reason: per Hypoglycemia Standing Ord. Heparin Sodium (Porcine) (Heparin Sodium,Porcine 5,000 Unit/Ml Vial) 5,000 unit SUBCUT Q12H [facility] Last Admin: 01/20/22 01:52 Dose: Not Given Documented By: NAE Non-Admin Reason: Patient Refused Sodium Chloride (Ns) 1,000 mls @ 100 mls/hr IVCONT .Q10H [facility] Last Admin: 01/20/22 06:03 Dose: 100 mls/hr Documented By: NAE Vancomycin HCl 750 mg/ Sodium (Chloride) 265 mls @ 265 mls/hr IV Q24H [facility] Last Infusion: 01/20/22 03:36 Dose: 0 mls/hr Documented By: NAE Insulin Glargine (Insulin Glargine,Hum.Rec.Anlog 100 Unit/Ml 10 Ml Vial) 44 unit SUBCUT BEDTIME [facility] Last Admin: 01/19/22 21:46 Dose: 44 unit Documented By: NAE Insulin Human Lispro (Insulin Lispro 100 Unit/Ml 3 Ml Vial) 0 unit SUBCUT QIDACHS [facility]; Protocol Last Admin: 01/20/22 07:38 Dose: Not Given Documented By: LUANN Non-Admin Reason: No Insulin Coverage Insulin Human Lispro (Insulin Lispro 100 Unit/Ml 3 Ml Vial) 10 unit SUBCUT TIDWM [facility] Last Admin: 01/20/22 07:39 Dose: Not Given Documented By: LUANN Non-Admin Reason: nursing judgment Comments: patient's POC glucose was 60 Lidocaine (Lidocaine 4 % Patch Adh..Patch) 1 patch TRANSDERMA DAILY [facility] Last Admin: 01/20/22 08:41 Dose: 1 patch Documented By: LUANN Loperamide HCl (Loperamide Hcl 2 Mg Capsule) 2 mg PO Q6H PRN PRN Reason: Diarrhea Metoclopramide HCl (Metoclopramide Hcl 10 Mg Tablet) 10 mg PO BEDTIME [facility] Last Admin: 01/19/22 22:24 Dose: 10 mg Documented By: NAE Morphine Sulfate (Morphine Sulfate 4 Mg/Ml Cartridge) 4 mg IVPUSH Q4H PRN; Protocol PRN Reason: Pain, Severe (Pain Scale 7-10) Last Admin: 01/19/22 00:10 Dose: 4 mg Documented By: KASSANDRA Nystatin (Nystatin Cream 15 Gm Tube) 1 appl TOPICAL BID [facility]; Protocol Last Admin: 01/20/22 08:43 Dose: Not Given Documented By: LUANN Non-Admin Reason: Med Not Available Ondansetron HCl (Ondansetron Hcl 4 Mg/2 Ml Vial) 4 mg IVPUSH Q8H PRN PRN Reason: Nausea and Vomiting Last Admin: 01/19/22 00:10 Dose: 4 mg Documented By: KASSANDRA Pharmacy Consult (Consult Rx Vancomycin Dosing) 1 each MISCELLANE DAILY PRN PRN Reason: Consult order Prednisone (Prednisone 10 Mg Tablet) 10 mg PO DAILY [facility] Last Admin: 01/20/22 08:40 Dose: 10 mg Documented By: LUANN Sodium Chloride (0.9 % Sodium Chloride Flush 3 Ml Syringe) 3 ml IVFLUSH QSHIFT [facility] Last Admin: 01/20/22 07:38 Dose: Not Given Documented By: LUANN Non-Admin Reason: No Insulin Coverage Tacrolimus (Tacrolimus 1 Mg Capsule) 2 mg PO BEDTIME [facility] Last Admin: 01/19/22 21:46 Dose: 2 mg Documented By: NAE Tacrolimus (Tacrolimus 1 Mg Capsule) 2 mg PO DAILY [facility] Last Admin: 01/20/22 08:40 Dose: 2 mg Documented By: LUANN Tramadol HCl (Tramadol Hcl 50 Mg Tablet) 50 mg PO Q8H PRN PRN Reason: Pain, Moderate (Pain Scale 4-6 Vitamin D (Cholecalciferol (Vitamin D3) 25 Mcg Tablet) 50 mcg PO DAILY [facility] Labs CBC & Chem 7: 01/19/22 06:43 01/20/22 06:05 Labs: Laboratory Results - last 24 hr 01/19/22 01/19/22 01/19/22 12:20 16:40 20:46 Estim Creat Clear Calc Estimated GFR POC Glucose 96 95 149 H 01/20/22 01/20/22 06:05 07:15 Estim Creat Clear Calc 38.3 Estimated GFR 36 POC Glucose 60 Microbiology Microbiology Results: Microbiology 01/18/22 20:11 Blood Culture - Preliminary Blood - Venous No growth after 24 hours. 01/18/22 20:11 Blood Culture - Preliminary Blood - Venous No growth after 24 hours. Assessment and Plan (1) Osteomyelitis: Status: Acute Plan 56-year-old male with past medical history diabetes and recently amputated right 5th toe secondary to osteomyelitis returns with foot pain found to have acute osteomyelitis of the same location Right foot osteomyelitis osteomyelitis at the site of recent amputation continue vancomycin surgery following no need for surgical intervention at this time CT of foot to verify osteo Rash. Resolved appears to be likely r/t amoxicillin rash discussed with ID - feels that likely reaction to abx avoid penicillins Acute hyperglycemia likely secondary to poor diabetic control and acute infection ss, ada diet continue home lantus DVT ppx Lovenox Attending Dr. Josue continued hospitalization for acute osteomyelitis and need for IV abx and also failing outpatient therapy with recent amoxicillin Quality Stroke Does the patient have a stroke diagnosis?: No VTE Prior VTE?: No VTE Risk Level:: Medical - moderate - high VTE Device Contraindication: Treatment Not Indicated VTE Drug Contraindication: N/A - Med Ordered
[2022-01-20 11:10] VITALS: BP 153/96; PULSE 73; RESP 18; TEMP 36.2; O2SAT 99
[2022-01-20 11:17] LABS: Glucose, Whole Blood 237 mg/dL (60-115)
--- NOTE | 2022-01-20 11:19 | MHC.CLN ---
RE: CONSULT PT TRIGGERS FOR 24-33# WT LOSS ON NURSING ADMISSION ASSESSMENT WT HX FOLLOWS: 75.75KG (01/18/22) 72.5KG (12/08/21) 71.6KG (08/26/21) 75.75KG (03/02/2021) 85KG (02/07/21) -11% NONSIGNIFICANT WT LOSS X 1 YEAR PT DOES NOT TRIGGER FOR SIGNIFICANT WT LOSS AT THIS TIME BMI 29.5 INDICATES OBESE DIET RX: 1800DM -APPROPRIATE PO INTAKE 75% X 2 MEALS CONTINUE CURRENT CARE PLAN
[2022-01-20] MEDS: Heparin Sodium,Porcine 5,000 UNIT/ML VIAL 5000 UNIT SUBCUT (12:09)
[2022-01-20] MEDS: Insulin Lispro 100 UNIT/ML 3 ML VIAL SUBCUT (12:10)
--- NOTE | 2022-01-20 15:32 | MHC.CM.PN ---
Addendum entered by Sharon Vega 01/20/22 15:41: CT read by Surgeon. No need for IV ABX at home. DP home no services. Patient has transportation home. Original Note: Male 56 DX Osteomyelitis DP Home with IV ABX. PER MD rounds a Foot CT ordered today. The CT was ordered to assess for Osteomyelitis. The XRAY was not definitive for dx. Patient may be able to discharge on PO ABX instead og IV ABX. CM will follow for a change in the dc plan.
--- NOTE | 2022-01-20 15:43 | P.DS_ITS ---
DS: Providers Provider Date of Service: 01/20/22 Date of admission: 01/18/22 23:58 Primary care physician: Zoraida Luo MD Consults: 01/19/22 00:31 Consult to Infectious Diseases Routine Consulting Provider: Alyse Lake Reason for consultation: osteo Has provider been notified: Yes 01/19/22 06:30 Consult to General Surgery Routine Consulting Provider: Marquez Silverio Reason for consultation: Osteomyelitis Has provider been notified: No Attending physician on discharge: Vance Josue Discharging clinician: Linda Rucker DS: Diagnosis Discharge Diagnosis (1) Osteomyelitis: Status: Acute DS: Summary Hospital Course Hospital Course: HP as per admitting provider 56-year-old French-speaking male only with past medical history of diabetes, hypertension, recently amputated 5th right toe in December at [facility] who presents to the hospital with complaints amputation site pain.? Patient reports that he was discharged from the hospital on January 03 after being treated with amputation for right 5th toe osteomyelitis P 80 was discharged on 01/03 and given amoxicillin which he completed on 01/07.? He reports that he felt well up until 1-2 days ago he started having itching in his feet, and 10/10 pain radiating to the rest of his toes.? He has no fever chills, he also reports that he noticed a rash all over his body today, the rash is itchy, patient does not remember having a similar episode before, reports no drug allergies, no recent travel, and does not remember if he was vaccinated against trick and pox. Patient denies any chest pain abdominal pain nausea or vomiting diarrhea constipation, no urinary symptoms and no lower extremity edema.? He does report penile pain, and excoriation that started about 2 days ago, he reports no recent sexual activity on last time he had sex with woman was 3 years ago.? He has no urinary symptoms clinic no dysuria, frequency or urgency. On arrival to the ED patient hemodynamically stable with no significant abnormal vitals Labs are significant for WBC count of 12.0, glucose of 699, creatinine of 2.91 which is around his baseline, Foot x-ray shows status post partial amputation of the 5th toe, the amputation margin at the base of the 5th proximal phalanx slightly indistinct and regular, difficult to exclude early small volume acute osteomyelitis Infectious Disease was also consulted in regards to the rash, felt to be allergic reaction secondary to medications, no concern for other causes therefore patient will be admitted for further management . Right foot osteomyelitis initially diagnosed on x-ray however repeat CT scan did not show definitive osteomyelitis. Discussed with Dr. Marquez Rm as with recommendation to not treat for osteomyelitis and have the patient follow-up with his surgeon in [place]. He completed course of vancomycin and at this time the wound looks dry without infection or drainage. He can continue without any further antibiotic treatment at this time Rash. Resolved. Seemed to be related to amoxicillin Acute hyperglycemia. Secondary to poor diabetic control. He was treated with sliding scale and diabetic diet. He should continue that at home as well as his other medications. Hypertension. Continue amlodipine Hyperlipidemia continue aspirin and statin GERD. Continue PPI Time Spent with Patient Time attestation: Total time spent providing and/or coordinating discharge services: Discharge coordination time: Greater than 30 minutes Quality: Safe Use of Opioids Does Pt have an Active Cancer Diagnosis on the Problem List?: No Quality: Stroke Does the patient have a stroke diagnosis?: No Physical Exam Vital Signs: Vital Signs: Last Vital Signs Temp 97.2 F 01/20/22 11:10 Pulse 73 01/20/22 11:10 Resp 18 01/20/22 11:10 BP 153/96 H 01/20/22 11:10 Pulse Ox 99 01/20/22 11:10 O2 Del Method 01/20/22 11:10 BMI result Body Mass Index 29.5 Appearing in no acute distress head is normocephalic atraumatic eyes pupils are PERRLA sclera is anicteric mouth throat mucous membranes are intact and moist neck is supple no lymphadenopathy, no JVD noted lung sounds are clear to auscultation heart regular rate rhythm, clear S1, S2 positive bowel sounds, abdomen is soft, nontender neuro patient is alert x3, no focal deficits Right foot 5th toe amputation DS: Data Data Completed and Pending Labs on day of discharge: Laboratory Results - last 24 hr 01/19/22 01/19/22 01/20/22 16:40 20:46 06:05 Creatinine 1.96 H Estim Creat Clear Calc 38.3 Estimated GFR 36 POC Glucose 95 149 H 01/20/22 01/20/22 07:15 11:13 Creatinine Estim Creat Clear Calc Estimated GFR POC Glucose 60 237 H Preliminary micro results at discharge 01/18/22 20:11 Blood Culture - Preliminary Blood - Venous No growth after 24 hours. 01/18/22 20:11 Blood Culture - Preliminary Blood - Venous No growth after 24 hours. Discharge Plan Discharge Anticipated Discharge Date/Time: 01/20/22 15:37 Patient Disposition: Home, Self-Care Discharge Diagnosis: Foot pain Rash Acute hyperglycemia Referrals: Zoraida Luo MD [Primary Care Provider] - 1 Week Discharge Medications: Continued albuterol sulfate 2.5 mg /3 mL (0.083 %) solution for nebulization 1 amp inhalation TID PRN (Reason: Respiratory Distress) atorvastatin 10 mg tablet 10 mg PO DAILY amlodipine 5 mg tablet 5 mg PO DAILY aspirin 81 mg tablet,delayed release (DR/EC) 81 mg PO DAILY tramadol 50 mg tablet 50 mg PO Q8H PRN (Reason: moderate pain) calcitriol 0.5 mcg capsule 0.5 mcg PO DAILY lidocaine [Lidoderm] 5 % adhesive patch,medicated 1 patch topical DAILY Protocol: Apply to: Apply to: BACK mupirocin 2 % ointment 1 appl topical TID Protocol: Apply to: Apply to: AFFECTED AREA albuterol sulfate [ProAir HFA] 90 mcg/actuation HFA aerosol inhaler 1 puff PO Q4H PRN (Reason: wheezing) tacrolimus 1 mg capsule 2 mg PO DAILY Label Comments: PATIENTS DOSE WAS RECENTLY DECREASED TO 2 IN THE AM INSTEAD OF 3 metoclopramide HCl 10 mg tablet 10 mg PO BEDTIME insulin lispro [Humalog KwikPen Insulin] 100 unit/mL insulin pen 10 unit subcut TIDWM duloxetine 20 mg capsule,delayed release(DR/EC) 20 mg PO DAILY cholecalciferol (vitamin D3) 1,250 mcg (50,000 unit) capsule 1 cap PO SA@1000 insulin glargine [Lantus Solostar U-100 Insulin] 100 unit/mL (3 mL) insulin pen 44 unit subcut BEDTIME prednisone 10 mg Tablet 10 mg PO DAILY famotidine 40 mg Tablet 40 mg PO BEDTIME pantoprazole 40 mg Tablet,Delayed Release (Dr/Ec) 40 mg PO BID gabapentin 100 mg Capsule 100 mg PO BEDTIME loperamide 2 mg Tablet 2 mg PO Q6H PRN (Reason: Diarrhea) diclofenac sodium 1 % Gel 2 g TOPICAL QID PRN (Reason: Pain) Rx Instructions: apply to single elbow, wrist or hand; for hand includes palm/fingers/back of hand Discharge Orders: Discharge Order (Routine); Ordered 01/20/22 Ordered By: Linda Rucker Diet: Advance to usual diet Activity on Discharge: As tolerated Stand Alone Forms: Patient Portal Discharge page Care Plan Goals: Complete resolution of symptoms Health Concerns: Foot Pain Rash Acute hyperglycemia Plan of Treatment: Follow-up with the general surgeon who performed your toe amputation Monitor your toe amputation for any signs of infection You have not been diagnosed with osteomyelitis therefore do not need to be on antibiotics Assessment: See discharge summary
[2022-01-20 15:44] VITALS: PULSE 84; RESP 16; TEMP 36.4; O2SAT 99
== END 2022-01-20 16:00 | disposition home or self-care (01) | DRG 349 ==
LOC: HO.ED 01-19 01:48 → HO.EDOVER 01-19 01:49 → HO.S3 01-19 11:20
PROVIDERS: Nurse Practitioner Family; Admitting Provider Internal Medicine; Emergency Provider Emergency Medicine; PCP Family Medicine; Visit Provider Nurse Practitioner Acute Care
DX: T87.43 Infection of amputation stump, right lower extremity (principal); M86.171 Other acute osteomyelitis, right ankle and foot; E11.22 Type 2 diabetes mellitus with diabetic chronic kidney disease; D84.821 Immunodeficiency due to drugs; E11.40 Type 2 diabetes mellitus with diabetic neuropathy, unspecified; L27.0 Generalized skin eruption due to drugs and medicaments taken internally; T36.0X5A Adverse effect of penicillins, initial encounter; E78.5 Hyperlipidemia, unspecified; N18.32 Chronic kidney disease, stage 3b; E11.65 Type 2 diabetes mellitus with hyperglycemia; Z20.822 Contact with and (suspected) exposure to COVID-19; Z94.0 Kidney transplant status; Z79.4 Long term (current) use of insulin; Z88.5 Allergy status to narcotic agent; Z88.8 Allergy status to other drugs, medicaments and biological substances; Z79.52 Long term (current) use of systemic steroids; Z79.899 Other long term (current) drug therapy
CPT/HCPCS: 36415; 73630; 73700; 80048; 80053; 81001; 82009; 82565; 82947; 83605; 85025; 85610; 85652; 85730; 86140; 87040; 87635; 93005; 96361; 96374; 96375; 99285; J0692; J2270; J2405; J2543; J3370

== ENCOUNTER 2022-02-26 12:36 | Outpatient (REF) | payer MEDICAID, SELFPAY ==
--- NOTE | ~2022-02-26 | XR_ITS ---
EXAMINATION: XR HAND, LEFT CLINICAL INFORMATION: Pain in left fingers. COMPARISON: Prior hand radiographs from 11/10/2018 and 11/21/2018 TECHNIQUE: PA, lateral, and oblique views of the left hand. FINDINGS: The scapholunate joint space is chronically widened, which suggests likelihood of old tear of the scapholunate ligament. The joint spaces of the wrist are maintained. No acute fracture or subluxation. The prior fracture of the fifth distal phalanx is healed. 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 Otherwise, the metacarpophalangeal joints are unremarkable. There is minimal osteophyte formation at the margins of some of the interphalangeal joints. The distal interphalangeal joints of the third and fifth digits are chronically flexed. No erosions or periostitis. The arteries are diffusely calcified throughout the hand. XR/XR hand LT min 3V IMPRESSION: * Chronic peripheral vascular calcifications. * No acute findings. No evidence of osteomyelitis in the left hand or wrist. * Old, healed fracture of the fifth distal phalanx. * Chronic, mild scapholunate dissociation is noted.
== END 2022-02-26 12:37 | disposition home or self-care (01) ==
LOC: HO.XRAY 12:36
PROVIDERS: PCP Family Medicine; Visit Provider Family Medicine
DX: M79.645 Pain in left finger(s) (principal)
CPT/HCPCS: 73130

== ENCOUNTER 2022-03-13 14:45 | Emergency (ER) | payer MEDICAID, SELFPAY ==
[2022-03-13 14:50] VITALS: BP 141/84; PULSE 95; RESP 18; TEMP 35.9; O2SAT 100; BMI 27.1
[2022-03-13 15:45] VITALS: BP 140/88; PULSE 89; RESP 16; TEMP 36.4; O2SAT 98
== END 2022-03-13 21:32 | disposition left against medical advice (07) ==
PROVIDERS: Emergency Provider Emergency Medicine
DX: M54.42 Lumbago with sciatica, left side (principal); M54.41 Lumbago with sciatica, right side; E11.9 Type 2 diabetes mellitus without complications; I10 Essential (primary) hypertension
CPT/HCPCS: 99282; 99283

== ENCOUNTER 2022-03-18 16:45 | Outpatient (REF) | payer MEDICAID, SELFPAY ==
--- NOTE | ~2022-03-18 | XR_ITS ---
EXAMINATION: XR FOOT, RIGHT XR LUMBAR SPINE CLINICAL INFORMATION: Chronic ulcer right foot. COMPARISON: None TECHNIQUE: 3 views right foot and lumbar spine 5 views. FINDINGS: RIGHT FOOT: There is amputation of the 5th toe beyond the proximal phalanx with the amputation stump appearing unremarkable. There is no fracture, periosteal erosion or elevation. No soft tissue gas seen. LUMBAR SPINE: There is normal lumbar lordosis. The vertebral heights, alignment and disc heights are normal. No visible fracture, dislocation seen. There is no pars defect or listhesis on the oblique views. The SI joints are symmetrical and normal. XR/XR lumbar spine 4V min IMPRESSION: Amputation of the right 5th digit beyond the proximal phalanx. The stump is unremarkable. There is no suspicion for osteomyelitis or abscess. There are vascular calcifications noted throughout the right foot and ankle. Unremarkable lumbar spine exam.
--- NOTE | ~2022-03-18 | XR_ITS ---
EXAMINATION: XR FOOT, RIGHT XR LUMBAR SPINE CLINICAL INFORMATION: Chronic ulcer right foot. COMPARISON: None TECHNIQUE: 3 views right foot and lumbar spine 5 views. FINDINGS: RIGHT FOOT: There is amputation of the 5th toe beyond the proximal phalanx with the amputation stump appearing unremarkable. There is no fracture, periosteal erosion or elevation. No soft tissue gas seen. LUMBAR SPINE: There is normal lumbar lordosis. The vertebral heights, alignment and disc heights are normal. No visible fracture, dislocation seen. There is no pars defect or listhesis on the oblique views. The SI joints are symmetrical and normal. XR/XR foot RT min 3V IMPRESSION: Amputation of the right 5th digit beyond the proximal phalanx. The stump is unremarkable. There is no suspicion for osteomyelitis or abscess. There are vascular calcifications noted throughout the right foot and ankle. Unremarkable lumbar spine exam.
== END 2022-03-18 16:46 | disposition home or self-care (01) ==
LOC: HO.XRAY 16:45
PROVIDERS: Absent Provider Family Medicine; PCP Family Medicine; Visit Provider Internal Medicine
DX: L97.511 Non-pressure chronic ulcer of other part of right foot limited to breakdown of skin (principal); M54.41 Lumbago with sciatica, right side
CPT/HCPCS: 72110; 73630

== ENCOUNTER 2022-07-03 15:28 | Emergency (ER) | payer MEDICAID, SELFPAY ==
--- NOTE | ~2022-07-03 | CT_ITS ---
EXAMINATION: CT ABDOMEN AND PELVIS WITHOUT CONTRAST CLINICAL INFORMATION: Diffuse abdominal pain with nausea and vomiting COMPARISON: CT abdomen pelvis 01/28/2018 TECHNIQUE: Multidetector volumetric imaging was performed from the superior aspect of the liver through the pubic symphysis. Sagittal and coronal reformatted images were obtained on the technologist's workstation. This CT examination was performed using dose optimization techniques as appropriate, variously including the following: *Automated exposure control *Adjustment of mA and/or kV according to patient size (this includes techniques or standardized protocols for targeted exams where dose is matched to indication/reason for exam; i.e. extremities or head) *Use of iterative reconstruction technique DLP: 597 mGy-cm FINDINGS: LUNG BASES: Minimal dependent bibasilar atelectasis. Trace pericardial fluid/effusion, similar to prior. LIVER, GALLBLADDER, AND BILIARY TREE: The liver is normal in size, shape, and attenuation. No focal hepatic lesion or biliary ductal dilatation is present. Status post cholecystectomy. PANCREAS: Unremarkable. SPLEEN: Unremarkable. ADRENAL GLANDS: Unremarkable. KIDNEYS AND URETERS: Both kidneys are atrophic. No hydronephrosis or renal calculi. Mild bulging of the cortical contour of the lateral right mid to lower pole, unchanged, likely normal cortical lobulation. No discrete renal lesion. No perinephric stranding or collection. Right pelvic transplant kidney with punctate nonobstructing right lower pole calculus. No hydronephrosis. No renal lesion. No peritransplant collection. BLADDER: Mildly diffusely thick-walled. GASTROINTESTINAL TRACT: Mild distention of the gastric antrum, similar to the prior study in 2018. Stomach is otherwise nondilated. No dilated bowel loops. No bowel wall thickening. Mild colonic diverticulosis. No evidence of acute diverticulitis. Normal appendix. No ascites or free air. ABDOMINAL WALL: No significant hernia is appreciated. LYMPH NODES: No lymphadenopathy. VASCULAR: Normal caliber abdominal aorta. Diffuse Monckeberg type vascular calcifications. PELVIC VISCERA: Prostate gland is mildly enlarged mildly indenting into the base of the bladder. OSSEOUS STRUCTURES: No acute fracture or suspicious osseous lesion. CT/CT abdomen pelvis wo IV con IMPRESSION: 1. No acute intra-abdominal process identified. 2. No evidence of bowel obstruction. 3. Right pelvic transplant kidney with punctate nonobstructing calculus. No hydronephrosis. Atrophic [place] kidneys. 4. Additional chronic findings, as described.
--- NOTE | ~2022-07-03 | XR_ITS ---
EXAMINATION: XR CHEST CLINICAL INFORMATION: Chest pain. COMPARISON: 08/27/2021 chest radiograph. TECHNIQUE: 2 views of the chest were obtained. FINDINGS: No significant abnormality is noted involving the heart, lungs, mediastinum, bony thorax or soft tissues. XR/XR chest 2V IMPRESSION: No acute cardiopulmonary process.
--- NOTE | 2022-07-03 15:34 | ECG_ITS ---
Test Reason : CHEST PAIN Blood Pressure : / mmHG Vent. Rate : 100 BPM Atrial Rate : 100 BPM P-R Int : 120 ms QRS Dur : 092 ms QT Int : 352 ms P-R-T Axes : 040 -32 102 degrees QTc Int : 454 ms Sinus rhythm with Premature atrial complexes Left axis deviation T wave abnormality, consider lateral ischemia Abnormal ECG When compared with ECG of 18-JAN-2022 18:15, No significant change was found Referred By: Generic ED Physician Electronically Signed By:Jesus Manuel Vazquez
[2022-07-03 15:36] VITALS: BP 141/98; PULSE 100; RESP 20; TEMP 36.7; O2SAT 98; BMI 30.6
--- NOTE | 2022-07-03 15:42 | ED.CHESTPAIN ---
HPI - Chest Pain General Chief Complaint: Chest Pain <Lou Curtis NP - Last Filed: 07/03/22 15:43> Stated Complaint: chest pain, vomiting <Lou Curtis NP - Last Filed: 07/03/22 15:43> Time Seen by Provider: 07/03/22 16:01 <Lou Curtis NP - Last Filed: 07/03/22 15:43> Source: patient <ADONIS Lopes - Last Filed: 07/03/22 18:28> Mode of arrival: ambulatory <ADONIS Lopes - Last Filed: 07/03/22 18:28> History of Present Illness HPI narrative: 57-year-old male with past medical history of HTN, diabetes, ESRD secondary to diabetic nephropathy s/p renal transplant in 2013 complicated by CKD, presenting to the ED complaining of left upper chest pain, nausea, vomiting, and palpitations x2 days. Reports associated SOB and abdominal pain. Denies fever, cough, chills, diarrhea, dysuria/hematuria <ADONIS Lopes - Last Filed: 07/03/22 18:28> MD complaint: chest pain <ADONIS Lopes - Last Filed: 07/03/22 18:28> Onset (ago): day(s) <ADONIS Lopes - Last Filed: 07/03/22 18:28> Related Data Home Medications: Home Medications Medication Instructions Recorded Confirmed albuterol sulfate 2.5 mg/3 mL 1 amp inhalation TID PRN 08/26/21 01/18/22 (0.083 %) solution for nebulization Respiratory Distress albuterol sulfate 90 mcg/actuation 1 puff PO Q4H PRN wheezing 08/26/21 01/18/22 aerosol inhaler (ProAir HFA) amlodipine 5 mg tablet 5 mg PO DAILY 08/26/21 01/18/22 aspirin 81 mg tablet,delayed 81 mg PO DAILY 08/26/21 01/18/22 release atorvastatin 10 mg tablet 10 mg PO DAILY 08/26/21 01/18/22 calcitriol 0.5 mcg capsule 0.5 mcg PO DAILY 08/26/21 01/18/22 cholecalciferol (vitamin D3) 1,250 1 cap PO SA@1000 08/26/21 01/18/22 mcg (50,000 unit) capsule duloxetine 20 mg capsule,delayed 20 mg PO DAILY 08/26/21 01/18/22 release insulin glargine 100 unit/mL (3 44 unit subcut BEDTIME 08/26/21 01/18/22 mL) subcutaneous pen (Lantus Solostar U-100 Insulin) insulin lispro 100 unit/mL 10 unit subcut TIDWM 08/26/21 01/18/22 subcutaneous pen (Humalog KwikPen (U-100) Insulin) lidocaine 5 % topical patch 1 patch topical DAILY 08/26/21 01/18/22 (Lidoderm) metoclopramide HCl 10 mg tablet 10 mg PO BEDTIME 08/26/21 01/18/22 mupirocin 2 % topical ointment 1 appl topical TID 08/26/21 01/19/22 tacrolimus 1 mg capsule, 2 mg PO DAILY 08/26/21 01/18/22 immediate-release tramadol 50 mg tablet 50 mg PO Q8H PRN moderate pain 08/26/21 01/18/22 diclofenac sodium 1 % topical gel 2 g topical QID PRN Pain 12/11/21 01/18/22 famotidine 40 mg tablet 40 mg PO BEDTIME 12/11/21 01/18/22 gabapentin 100 mg capsule 100 mg PO BEDTIME 12/11/21 01/18/22 loperamide 2 mg tablet 2 mg PO Q6H PRN Diarrhea 12/11/21 01/18/22 pantoprazole 40 mg tablet,delayed 40 mg PO BID 12/11/21 01/18/22 release prednisone 10 mg tablet 10 mg PO DAILY 12/11/21 01/18/22 <Lou Curtis, EDWIN - Last Filed: 07/03/22 15:43> Allergies/Adverse Reactions: Allergies Allergy/AdvReac Type Severity Reaction Status Date / Time hydromorphone [From DILAUDID] Allergy Mild ITCHINESS Verified 12/08/21 10:45 diphenhydramine Allergy Unknown UNK Verified 12/08/21 10:45 [From BENADRYL] <Lou Curtis NP - Last Filed: 07/03/22 15:43> Review of Systems Review of Systems: Constitutional: No Fever, No Chills,No Fatigue, No Malaise ENT/Mouth: No Hearing loss, No Ear Pain, No sore throat, No Rhinorrhea, No Swallowing Difficulty Eyes: No Eye Pain, No Swelling, No Redness, No Vision Changes Cardiovascular: + Chest Pain, + SOB, No Dyspnea on Exertion, No Edema, + Palpitations Respiratory: No Cough, No Sputum, No Dyspnea Gastrointestinal: + Nausea, + Vomiting, No Diarrhea, No Constipation, + Abdominal pain Genitourinary: No Dysuria, No Urinary Frequency, No Hematuria, No Urinary Incontinence/retention, No Flank Pain Musculoskeletal: No joint pain, No Myalgias, No Joint Swelling Skin: No Skin Lesions, No rash Neuro: No Weakness, No Numbness,No Dizziness, No Headache <ADONIS Lopes - Last Filed: 07/03/22 18:28> Yes all other systems are reviewed and are negative <ADONIS Lopes - Last Filed: 07/03/22 18:28> Constitutional: Constitutional: Reports as per HPI <ADONIS Lopes - Last Filed: 07/03/22 18:28> [facility] Past Medical History Attestation statement: The following information was validated with the patient. <ADONIS Lopes - Last Filed: 07/03/22 18:28> Medical History: Medical History Amputation of fifth toe of right foot Chronic hyperglycemia Diabetes History of osteomyelitis HTN (hypertension) <Lou Curtis NP - Last Filed: 07/03/22 15:43> Surgical History: Surgical History H/O arteriovenostomy for renal dialysis <Lou Curtis NP - Last Filed: 07/03/22 15:43> Family History Family History: Family History Other Diabetes No family history of coronary artery disease <Lou Curtis NP - Last Filed: 07/03/22 15:43> Social History Social History: Social History Household Members: None Housing: House Do you presently have visiting nurse or other home services: No Alcohol intake: never Patient Tobacco Use Status: Never used Tobacco Smoked in Last 30 Days: No Use of substances other than those prescribed or required for medical reasons: No Advance Directives: Yes Advance Directives on File: Yes Advance Directives Date on File: 01/21/22 service: No Current occupational status: disabled <Lou Curtis NP - Last Filed: 07/03/22 15:43> Physical Exam Vital Signs: Vital Signs: Last Vital Signs Temp 98.0 F 07/03/22 19:44 Pulse 83 07/03/22 19:44 Resp 16 07/03/22 19:44 BP 149/102 H 07/03/22 19:44 Pulse Ox 99 07/03/22 19:44 O2 Del Method 07/03/22 19:44 BMI result Body Mass Index 30.6 <Lou Curtis NP - Last Filed: 07/03/22 15:43> Vital Signs: Last Vital Signs Temp 98.0 F 07/03/22 19:44 Pulse 83 07/03/22 19:44 Resp 16 07/03/22 19:44 BP 149/102 H 07/03/22 19:44 Pulse Ox 99 07/03/22 19:44 O2 Del Method 07/03/22 19:44 BMI result Body Mass Index 30.6 <ADONIS Lopes - Last Filed: 07/03/22 18:28> Vital Signs: Last Vital Signs Temp 98.0 F 07/03/22 19:44 Pulse 83 07/03/22 19:44 Resp 16 07/03/22 19:44 BP 149/102 H 07/03/22 19:44 Pulse Ox 99 07/03/22 19:44 O2 Del Method 07/03/22 19:44 BMI result Body Mass Index 30.6 <ADONIS Bella - Last Filed: 07/03/22 20:46> Const: General: cooperative, healthy appearing and no acute distress <ADONIS Lopes - Last Filed: 07/03/22 18:28> Orientation/consciousness: patient oriented x3 <ADONIS Lopes - Last Filed: 07/03/22 18:28> Limitations: no limitations <ADONIS Lopes - Last Filed: 07/03/22 18:28> HEENT: Head: Yes normal to inspection and Yes atraumatic <Yesy Marcos [place] - Last Filed: 07/03/22 18:28> Ears: hearing grossly normal bilaterally <Yesy Marcos [place] - Last Filed: 07/03/22 18:28> General nose exam: Normal external nose present <Yesy Marcos [place] - Last Filed: 07/03/22 18:28> Face and sinus: Yes normal facial exam <Yesy Marcos [place] - Last Filed: 07/03/22 18:28> Eyes: General: appearance normal, both eyes and all related structures <Yesy Marcos [place] - Last Filed: 07/03/22 18:28> EOM: EOMs intact bilaterally <ADONIS Lopes - Last Filed: 07/03/22 18:28> Neck: Neck: Yes normal visual inspection and Yes no meningeal signs <Yesy Marcos [place] - Last Filed: 07/03/22 18:28> Chest: Other: Chest pain reproducible to sternum, no crepitus <Yesy Marcos [place] - Last Filed: 07/03/22 18:28> Chest palpation & inspection: normal inspection of the chest <ADONIS Lopes - Last Filed: 07/03/22 18:28> Resp: Effort & Inspection: normal respiratory effort and no respiratory distress <Yesy Marcos [place] - Last Filed: 07/03/22 18:28> Auscultation: clear to auscultation bilaterally, no crackles, no rales, no rhonchi and no wheezes <Yesy Marcos [place] - Last Filed: 07/03/22 18:28> Cardio: Rate: regular rate <Yesy Marcos PA - Last Filed: 07/03/22 18:28> Heart sounds: S1 normal heart sound present and S2 normal heart sound present <ADONIS Lopes - Last Filed: 07/03/22 18:28> GI: Inspection: Yes normal to inspection <Yesy Marcos [place] - Last Filed: 07/03/22 18:28> Palpation (GI): Soft to palpation, Tenderness to palpation present (GI) (Diffusely) with no rebound tenderness, no guarding and not rigid <ADONIS Lopes - Last Filed: 07/03/22 18:28> : General: Yes no CVA tenderness <ADONIS Lopes - Last Filed: 07/03/22 18:28> Back/Spine/Pelvis: Back: no CVA tenderness <ADONIS Lopes - Last Filed: 07/03/22 18:28> Skin: Rashes: no rashes <ADONIS Lopes - Last Filed: 07/03/22 18:28> Wounds: no wounds <ADONIS Lopes - Last Filed: 07/03/22 18:28> Neuro: General: patient oriented x3, tone normal and no meningeal signs <ADONIS Lopes - Last Filed: 07/03/22 18:28> Gait exam (Neuro): Normal gait present <ADONIS Lopes - Last Filed: 07/03/22 18:28> Extrem: General: Yes normal to inspection <ADONIS Lopes - Last Filed: 07/03/22 18:28> Course Course Course Narrative: This is a rapid medical exam. Defer additional MERCEDES MCKNIGHT P eat primary provider. 57-year-old male with history of hypertension diabetes presents with left upper chest pain since last evening with multiple episodes of vomiting and palpitations. Will obtain EKG, labs, chest x-ray, COVID. Vitals stable <Lou Curtis NP - Last Filed: 07/03/22 15:43> This is a rapid medical exam. Defer additional MERCEDES MCKNIGHT P eat primary provider. 57-year-old male with history of hypertension diabetes presents with left upper chest pain since last evening with multiple episodes of vomiting and palpitations. Will obtain EKG, labs, chest x-ray, COVID. Vitals stable -1653--no leukocytosis. Chronic CKD. initial troponin 29 > will obtain 3 hour repeat XR chest 2V IMPRESSION: No acute cardiopulmonary process. -1800--ED care transferred to ADONIS Batista pending CT, repeat troponin and PO challenge <ADONIS Lopes - Last Filed: 07/03/22 18:28> Reevaluation(s) Reevaluation #1: Patient tolerating p.o. chemistry appears to be within patient's baseline with CKD. Initial troponin 29, repeat troponin 25.6, EKG nonischemic unlikely that this is ACS. TSH is noted to be within normal limits. CT of the abdomen and pelvis with no intra-abdominal process identified. No signs of obstruction. Right pelvic transplant kidney with punctate nonobstructing callus. No no hydronephrosis. Patient feeling better at this time requesting to go home. Advised him to follow-up with his PCP. Educated patient on diagnosis and treatment plan, answered all question, patient verbalizes understanding. At this time patient will be discharged home, advised to return with new or worsening symptoms. Educated on worrisome signs and symptoms and when to return. At this time I feel comfortable discharge home. To note patient's blood pressure elevated 149/102, therefore home dose of amlodipine given. Will recheck prior to final discharge. <ADONIS Bella - Last Filed: 07/03/22 20:46> Time: 20:44 <ADONIS Bella - Last Filed: 07/03/22 20:46> Medications Administered Discontinued Medications Generic Name Dose Route Start Last Admin Trade Name Freq PRN Reason Stop Dose Admin Al Hydroxide/Mg Hydroxide 30 ml 07/03/22 16:14 07/03/22 17:39 Magnesium Hydrox/Alum Hydrox 30 Ml Oral.Susp PO 07/03/22 16:15 30 ml ONCE ONE Administration Famotidine 20 mg 07/03/22 16:14 07/03/22 17:39 Famotidine/Pf 20 Mg/2 Ml Vial IVPUSH 07/03/22 16:15 20 mg ONCE ONE Administration Sodium Chloride 1,000 mls @ 999 mls/hr 07/03/22 16:15 07/03/22 19:46 Ns IV 07/03/22 17:15 Infused .Q1H1M EUNICE Infusion Ondansetron HCl 4 mg 07/03/22 16:09 07/03/22 17:38 Ondansetron Hcl 4 Mg/2 Ml Vial IVPUSH 07/03/22 16:10 4 mg ONCE ONE Administration <Lou Curtis NP - Last Filed: 07/03/22 15:43> Medications Administered Discontinued Medications Generic Name Dose Route Start Last Admin Trade Name Freq PRN Reason Stop Dose Admin Al Hydroxide/Mg Hydroxide 30 ml 07/03/22 16:14 07/03/22 17:39 Magnesium Hydrox/Alum Hydrox 30 Ml Oral.Susp PO 07/03/22 16:15 30 ml ONCE ONE Administration Famotidine 20 mg 07/03/22 16:14 07/03/22 17:39 Famotidine/Pf 20 Mg/2 Ml Vial IVPUSH 07/03/22 16:15 20 mg ONCE ONE Administration Sodium Chloride 1,000 mls @ 999 mls/hr 07/03/22 16:15 07/03/22 19:46 Ns IV 07/03/22 17:15 Infused .Q1H1M EUNICE Infusion Ondansetron HCl 4 mg 07/03/22 16:09 07/03/22 17:38 Ondansetron Hcl 4 Mg/2 Ml Vial IVPUSH 07/03/22 16:10 4 mg ONCE ONE Administration <ADONIS Lopes - Last Filed: 07/03/22 18:28> Medications Administered Discontinued Medications Generic Name Dose Route Start Last Admin Trade Name Freq PRN Reason Stop Dose Admin Al Hydroxide/Mg Hydroxide 30 ml 07/03/22 16:14 07/03/22 17:39 Magnesium Hydrox/Alum Hydrox 30 Ml Oral.Susp PO 07/03/22 16:15 30 ml ONCE ONE Administration Famotidine 20 mg 07/03/22 16:14 07/03/22 17:39 Famotidine/Pf 20 Mg/2 Ml Vial IVPUSH 07/03/22 16:15 20 mg ONCE ONE Administration Sodium Chloride 1,000 mls @ 999 mls/hr 07/03/22 16:15 07/03/22 19:46 Ns IV 07/03/22 17:15 Infused .Q1H1M EUNICE Infusion Ondansetron HCl 4 mg 07/03/22 16:09 07/03/22 17:38 Ondansetron Hcl 4 Mg/2 Ml Vial IVPUSH 07/03/22 16:10 4 mg ONCE ONE Administration <ADONIS Bella - Last Filed: 07/03/22 20:46> Medical Decision Making Medical Decision Making MDM Narrative: 57-year-old male with past medical history of HTN, diabetes, ESRD secondary to diabetic nephropathy s/p renal transplant in 2013 complicated by CKD, presenting to the ED complaining of left upper chest pain, nausea, vomiting, and palpitations x2 days. Exam mildly tachycardic likely from dry heaving, lungs CTA, chest pain reproducible, abdomen soft diffusely tender, no pedal edema. Concern for ACS vs costochondritis vs GERD/gastritis or gastroenteritis vs appendicitis/diverticulitis/colitis. Rule out metabolic abnormalities. Low suspicion for CHF/PE Plan: EKG, labs, UA, CXR, CT abdomen/pelvis, IVF, re-evaluate <ADONIS Lopes - Last Filed: 07/03/22 18:28> Differential Diagnosis Differential Diagnoses: The differential diagnosis associated with the presentation includes <ADONIS Lopes - Last Filed: 07/03/22 18:28> as above <ADONIS Lopes - Last Filed: 07/03/22 18:28> Admission/Observation Consideration of admission/observation: Escalation of care including admission/observation considered <ADONIS Lopes - Last Filed: 07/03/22 18:28> Lab Data MDM Lab Attestation statement: I reviewed the patient's lab results. <ADONIS Lopes - Last Filed: 07/03/22 18:28> Result Diagrams: 07/03/22 15:57 07/03/22 15:57 <Lou Curtis NP - Last Filed: 07/03/22 15:43> Labs: Lab Results 07/03/22 07/03/22 07/03/22 Range/Units 15:57 15:57 15:57 WBC 9.9 (4.8-10.8) X10*3/uL RBC 5.42 D (4.60-5.80) X10*6/uL Hgb 15.0 (14.0-18.0) g/dl Hct 45.4 D (42.0-52.0) % MCV 83.8 (80.0-98.0) fL MCH 27.7 (27.0-33.0) pg MCHC 33.0 (31.0-36.0) g/dl RDW 13.5 (11.0-16.0) % Plt Count 277 (160-400) X10*3/uL MPV 10.5 (9.4-12.4) fL Immature Gran % (Auto) 0.8 H (0.0-0.4) % Neut % (Auto) 86.1 H (45-73) % Lymph % (Auto) 9.1 L (20-40) % [place] % (Auto) 3.4 (2-11) % Eos % (Auto) 0.2 (0-4) % Baso % (Auto) 0.4 (0-2) % Lymph # (Auto) 0.9 L (1.2-4.9) X10*3/uL [place] # (Auto) 0.3 (0.1-1.2) X10*3/uL Eos # (Auto) 0.0 (0.0-0.4) X10*3/uL Baso # (Auto) 0.0 (0.0-0.2) X10*3/uL Abs Immat Gran (auto) 0.08 H (0.00-0.03) X10*3/uL Absolute Neuts (auto) 8.5 H (2.0-8.3) x10*3/uL Absolute Nucleated RBC 0.000 (0.0-0.012) X10*3/uL Nucleated RBC % (auto) 0.0 (0.0-0.2) /100WBC PT (10.0-13.1) SEC INR (0.9-1.1) Sodium 139 (135-145) mmol/L Potassium 3.7 (3.3-5.1) mmol/L Chloride 109 H (96-108) mmol/L Carbon Dioxide 20 L (22-29) mmol/L Anion Gap 14 (12-20) BUN 33 H (9-16) mg/dL Creatinine 2.43 H (0.5-1.4) mg/dL Estim Creat Clear Calc 31.0 Estimated GFR 28 POC Glucose (60-115) mg/dL Random Glucose 185 H (60-115) mg/dL Calcium 9.3 D (8.4-10.2) mg/dL Magnesium 1.9 (1.6-2.6) mg/dL Total Bilirubin 0.5 (0.0-1.0) mg/dL AST 22 (5-37) U/L ALT 42 H (0-40) U/L Alkaline Phosphatase 127 H (39-117) U/L Troponin I High Sens 29.0 (<3.5-35.0) ng/L Total Protein 7.4 (6.5-8.0) g/dL Albumin 4.2 (3.5-5.0) g/dL Lipase 31 (8-78) U/L TSH 2.99 (0.32-4.0) uIU/mL COVID-19 ([facility]) (Negative) COVID-19 Clin Com 07/03/22 07/03/22 07/03/22 Range/Units 15:57 16:50 19:54 WBC (4.8-10.8) X10*3/uL RBC (4.60-5.80) X10*6/uL Hgb (14.0-18.0) g/dl Hct (42.0-52.0) % MCV (80.0-98.0) fL MCH (27.0-33.0) pg MCHC (31.0-36.0) g/dl RDW (11.0-16.0) % Plt Count (160-400) X10*3/uL MPV (9.4-12.4) fL Immature Gran % (Auto) (0.0-0.4) % Neut % (Auto) (45-73) % Lymph % (Auto) (20-40) % [place] % (Auto) (2-11) % Eos % (Auto) (0-4) % Baso % (Auto) (0-2) % Lymph # (Auto) (1.2-4.9) X10*3/uL [place] # (Auto) (0.1-1.2) X10*3/uL Eos # (Auto) (0.0-0.4) X10*3/uL Baso # (Auto) (0.0-0.2) X10*3/uL Abs Immat Gran (auto) (0.00-0.03) X10*3/uL Absolute Neuts (auto) (2.0-8.3) x10*3/uL Absolute Nucleated RBC (0.0-0.012) X10*3/uL Nucleated RBC % (auto) (0.0-0.2) /100WBC PT 9.5 L (10.0-13.1) SEC INR 0.8 L (0.9-1.1) Sodium (135-145) mmol/L Potassium (3.3-5.1) mmol/L Chloride (96-108) mmol/L Carbon Dioxide (22-29) mmol/L Anion Gap (12-20) BUN (9-16) mg/dL Creatinine (0.5-1.4) mg/dL Estim Creat Clear Calc Estimated GFR POC Glucose (60-115) mg/dL Random Glucose (60-115) mg/dL Calcium (8.4-10.2) mg/dL Magnesium (1.6-2.6) mg/dL Total Bilirubin (0.0-1.0) mg/dL AST (5-37) U/L ALT (0-40) U/L Alkaline Phosphatase (39-117) U/L Troponin I High Sens 25.6 (<3.5-35.0) ng/L Total Protein (6.5-8.0) g/dL Albumin (3.5-5.0) g/dL Lipase (8-78) U/L TSH (0.32-4.0) uIU/mL COVID-19 ([facility]) Negative (Negative) COVID-19 Clin Com See Note 07/03/22 Range/Units 20:04 WBC (4.8-10.8) X10*3/uL RBC (4.60-5.80) X10*6/uL Hgb (14.0-18.0) g/dl Hct (42.0-52.0) % MCV (80.0-98.0) fL MCH (27.0-33.0) pg MCHC (31.0-36.0) g/dl RDW (11.0-16.0) % Plt Count (160-400) X10*3/uL MPV (9.4-12.4) fL Immature Gran % (Auto) (0.0-0.4) % Neut % (Auto) (45-73) % Lymph % (Auto) (20-40) % [place] % (Auto) (2-11) % Eos % (Auto) (0-4) % Baso % (Auto) (0-2) % Lymph # (Auto) (1.2-4.9) X10*3/uL [place] # (Auto) (0.1-1.2) X10*3/uL Eos # (Auto) (0.0-0.4) X10*3/uL Baso # (Auto) (0.0-0.2) X10*3/uL Abs Immat Gran (auto) (0.00-0.03) X10*3/uL Absolute Neuts (auto) (2.0-8.3) x10*3/uL Absolute Nucleated RBC (0.0-0.012) X10*3/uL Nucleated RBC % (auto) (0.0-0.2) /100WBC PT (10.0-13.1) SEC INR (0.9-1.1) Sodium (135-145) mmol/L Potassium (3.3-5.1) mmol/L Chloride (96-108) mmol/L Carbon Dioxide (22-29) mmol/L Anion Gap (12-20) BUN (9-16) mg/dL Creatinine (0.5-1.4) mg/dL Estim Creat Clear Calc Estimated GFR POC Glucose 157 H (60-115) mg/dL Random Glucose (60-115) mg/dL Calcium (8.4-10.2) mg/dL Magnesium (1.6-2.6) mg/dL Total Bilirubin (0.0-1.0) mg/dL AST (5-37) U/L ALT (0-40) U/L Alkaline Phosphatase (39-117) U/L Troponin I High Sens (<3.5-35.0) ng/L Total Protein (6.5-8.0) g/dL Albumin (3.5-5.0) g/dL Lipase (8-78) U/L TSH (0.32-4.0) uIU/mL COVID-19 ([facility]) (Negative) COVID-19 Clin Com <Lou Curtis NP - Last Filed: 07/03/22 15:43> Lab Results 07/03/22 07/03/22 07/03/22 Range/Units 15:57 15:57 15:57 WBC 9.9 (4.8-10.8) X10*3/uL RBC 5.42 D (4.60-5.80) X10*6/uL Hgb 15.0 (14.0-18.0) g/dl Hct 45.4 D (42.0-52.0) % MCV 83.8 (80.0-98.0) fL MCH 27.7 (27.0-33.0) pg MCHC 33.0 (31.0-36.0) g/dl RDW 13.5 (11.0-16.0) % Plt Count 277 (160-400) X10*3/uL MPV 10.5 (9.4-12.4) fL Immature Gran % (Auto) 0.8 H (0.0-0.4) % Neut % (Auto) 86.1 H (45-73) % Lymph % (Auto) 9.1 L (20-40) % [place] % (Auto) 3.4 (2-11) % Eos % (Auto) 0.2 (0-4) % Baso % (Auto) 0.4 (0-2) % Lymph # (Auto) 0.9 L (1.2-4.9) X10*3/uL [place] # (Auto) 0.3 (0.1-1.2) X10*3/uL Eos # (Auto) 0.0 (0.0-0.4) X10*3/uL Baso # (Auto) 0.0 (0.0-0.2) X10*3/uL Abs Immat Gran (auto) 0.08 H (0.00-0.03) X10*3/uL Absolute Neuts (auto) 8.5 H (2.0-8.3) x10*3/uL Absolute Nucleated RBC 0.000 (0.0-0.012) X10*3/uL Nucleated RBC % (auto) 0.0 (0.0-0.2) /100WBC PT (10.0-13.1) SEC INR (0.9-1.1) Sodium 139 (135-145) mmol/L Potassium 3.7 (3.3-5.1) mmol/L Chloride 109 H (96-108) mmol/L Carbon Dioxide 20 L (22-29) mmol/L Anion Gap 14 (12-20) BUN 33 H (9-16) mg/dL Creatinine 2.43 H (0.5-1.4) mg/dL Estim Creat Clear Calc 31.0 Estimated GFR 28 POC Glucose (60-115) mg/dL Random Glucose 185 H (60-115) mg/dL Calcium 9.3 D (8.4-10.2) mg/dL Magnesium 1.9 (1.6-2.6) mg/dL Total Bilirubin 0.5 (0.0-1.0) mg/dL AST 22 (5-37) U/L ALT 42 H (0-40) U/L Alkaline Phosphatase 127 H (39-117) U/L Troponin I High Sens 29.0 (<3.5-35.0) ng/L Total Protein 7.4 (6.5-8.0) g/dL Albumin 4.2 (3.5-5.0) g/dL Lipase 31 (8-78) U/L TSH 2.99 (0.32-4.0) uIU/mL COVID-19 ([facility]) (Negative) COVID-19 Clin Com 07/03/22 07/03/22 07/03/22 Range/Units 15:57 16:50 19:54 WBC (4.8-10.8) X10*3/uL RBC (4.60-5.80) X10*6/uL Hgb (14.0-18.0) g/dl Hct (42.0-52.0) % MCV (80.0-98.0) fL MCH (27.0-33.0) pg MCHC (31.0-36.0) g/dl RDW (11.0-16.0) % Plt Count (160-400) X10*3/uL MPV (9.4-12.4) fL Immature Gran % (Auto) (0.0-0.4) % Neut % (Auto) (45-73) % Lymph % (Auto) (20-40) % [place] % (Auto) (2-11) % Eos % (Auto) (0-4) % Baso % (Auto) (0-2) % Lymph # (Auto) (1.2-4.9) X10*3/uL [place] # (Auto) (0.1-1.2) X10*3/uL Eos # (Auto) (0.0-0.4) X10*3/uL Baso # (Auto) (0.0-0.2) X10*3/uL Abs Immat Gran (auto) (0.00-0.03) X10*3/uL Absolute Neuts (auto) (2.0-8.3) x10*3/uL Absolute Nucleated RBC (0.0-0.012) X10*3/uL Nucleated RBC % (auto) (0.0-0.2) /100WBC PT 9.5 L (10.0-13.1) SEC INR 0.8 L (0.9-1.1) Sodium (135-145) mmol/L Potassium (3.3-5.1) mmol/L Chloride (96-108) mmol/L Carbon Dioxide (22-29) mmol/L Anion Gap (12-20) BUN (9-16) mg/dL Creatinine (0.5-1.4) mg/dL Estim Creat Clear Calc Estimated GFR POC Glucose (60-115) mg/dL Random Glucose (60-115) mg/dL Calcium (8.4-10.2) mg/dL Magnesium (1.6-2.6) mg/dL Total Bilirubin (0.0-1.0) mg/dL AST (5-37) U/L ALT (0-40) U/L Alkaline Phosphatase (39-117) U/L Troponin I High Sens 25.6 (<3.5-35.0) ng/L Total Protein (6.5-8.0) g/dL Albumin (3.5-5.0) g/dL Lipase (8-78) U/L TSH (0.32-4.0) uIU/mL COVID-19 ([facility]) Negative (Negative) COVID-19 Clin Com See Note 07/03/22 Range/Units 20:04 WBC (4.8-10.8) X10*3/uL RBC (4.60-5.80) X10*6/uL Hgb (14.0-18.0) g/dl Hct (42.0-52.0) % MCV (80.0-98.0) fL MCH (27.0-33.0) pg MCHC (31.0-36.0) g/dl RDW (11.0-16.0) % Plt Count (160-400) X10*3/uL MPV (9.4-12.4) fL Immature Gran % (Auto) (0.0-0.4) % Neut % (Auto) (45-73) % Lymph % (Auto) (20-40) % [place] % (Auto) (2-11) % Eos % (Auto) (0-4) % Baso % (Auto) (0-2) % Lymph # (Auto) (1.2-4.9) X10*3/uL [place] # (Auto) (0.1-1.2) X10*3/uL Eos # (Auto) (0.0-0.4) X10*3/uL Baso # (Auto) (0.0-0.2) X10*3/uL Abs Immat Gran (auto) (0.00-0.03) X10*3/uL Absolute Neuts (auto) (2.0-8.3) x10*3/uL Absolute Nucleated RBC (0.0-0.012) X10*3/uL Nucleated RBC % (auto) (0.0-0.2) /100WBC PT (10.0-13.1) SEC INR (0.9-1.1) Sodium (135-145) mmol/L Potassium (3.3-5.1) mmol/L Chloride (96-108) mmol/L Carbon Dioxide (22-29) mmol/L Anion Gap (12-20) BUN (9-16) mg/dL Creatinine (0.5-1.4) mg/dL Estim Creat Clear Calc Estimated GFR POC Glucose 157 H (60-115) mg/dL Random Glucose (60-115) mg/dL Calcium (8.4-10.2) mg/dL Magnesium (1.6-2.6) mg/dL Total Bilirubin (0.0-1.0) mg/dL AST (5-37) U/L ALT (0-40) U/L Alkaline Phosphatase (39-117) U/L Troponin I High Sens (<3.5-35.0) ng/L Total Protein (6.5-8.0) g/dL Albumin (3.5-5.0) g/dL Lipase (8-78) U/L TSH (0.32-4.0) uIU/mL COVID-19 ([facility]) (Negative) COVID-19 Clin Com <Yesy CollierADONIS oquendo - Last Filed: 07/03/22 18:28> Lab Results 07/03/22 07/03/22 07/03/22 Range/Units 15:57 15:57 15:57 WBC 9.9 (4.8-10.8) X10*3/uL RBC 5.42 D (4.60-5.80) X10*6/uL Hgb 15.0 (14.0-18.0) g/dl Hct 45.4 D (42.0-52.0) % MCV 83.8 (80.0-98.0) fL MCH 27.7 (27.0-33.0) pg MCHC 33.0 (31.0-36.0) g/dl RDW 13.5 (11.0-16.0) % Plt Count 277 (160-400) X10*3/uL MPV 10.5 (9.4-12.4) fL Immature Gran % (Auto) 0.8 H (0.0-0.4) % Neut % (Auto) 86.1 H (45-73) % Lymph % (Auto) 9.1 L (20-40) % [place] % (Auto) 3.4 (2-11) % Eos % (Auto) 0.2 (0-4) % Baso % (Auto) 0.4 (0-2) % Lymph # (Auto) 0.9 L (1.2-4.9) X10*3/uL [place] # (Auto) 0.3 (0.1-1.2) X10*3/uL Eos # (Auto) 0.0 (0.0-0.4) X10*3/uL Baso # (Auto) 0.0 (0.0-0.2) X10*3/uL Abs Immat Gran (auto) 0.08 H (0.00-0.03) X10*3/uL Absolute Neuts (auto) 8.5 H (2.0-8.3) x10*3/uL Absolute Nucleated RBC 0.000 (0.0-0.012) X10*3/uL Nucleated RBC % (auto) 0.0 (0.0-0.2) /100WBC PT (10.0-13.1) SEC INR (0.9-1.1) Sodium 139 (135-145) mmol/L Potassium 3.7 (3.3-5.1) mmol/L Chloride 109 H (96-108) mmol/L Carbon Dioxide 20 L (22-29) mmol/L Anion Gap 14 (12-20) BUN 33 H (9-16) mg/dL Creatinine 2.43 H (0.5-1.4) mg/dL Estim Creat Clear Calc 31.0 Estimated GFR 28 POC Glucose (60-115) mg/dL Random Glucose 185 H (60-115) mg/dL Calcium 9.3 D (8.4-10.2) mg/dL Magnesium 1.9 (1.6-2.6) mg/dL Total Bilirubin 0.5 (0.0-1.0) mg/dL AST 22 (5-37) U/L ALT 42 H (0-40) U/L Alkaline Phosphatase 127 H (39-117) U/L Troponin I High Sens 29.0 (<3.5-35.0) ng/L Total Protein 7.4 (6.5-8.0) g/dL Albumin 4.2 (3.5-5.0) g/dL Lipase 31 (8-78) U/L TSH 2.99 (0.32-4.0) uIU/mL COVID-19 ([facility]) (Negative) COVID-19 Clin Com 07/03/22 07/03/22 07/03/22 Range/Units 15:57 16:50 19:54 WBC (4.8-10.8) X10*3/uL RBC (4.60-5.80) X10*6/uL Hgb (14.0-18.0) g/dl Hct (42.0-52.0) % MCV (80.0-98.0) fL MCH (27.0-33.0) pg MCHC (31.0-36.0) g/dl RDW (11.0-16.0) % Plt Count (160-400) X10*3/uL MPV (9.4-12.4) fL Immature Gran % (Auto) (0.0-0.4) % Neut % (Auto) (45-73) % Lymph % (Auto) (20-40) % [place] % (Auto) (2-11) % Eos % (Auto) (0-4) % Baso % (Auto) (0-2) % Lymph # (Auto) (1.2-4.9) X10*3/uL [place] # (Auto) (0.1-1.2) X10*3/uL Eos # (Auto) (0.0-0.4) X10*3/uL Baso # (Auto) (0.0-0.2) X10*3/uL Abs Immat Gran (auto) (0.00-0.03) X10*3/uL Absolute Neuts (auto) (2.0-8.3) x10*3/uL Absolute Nucleated RBC (0.0-0.012) X10*3/uL Nucleated RBC % (auto) (0.0-0.2) /100WBC PT 9.5 L (10.0-13.1) SEC INR 0.8 L (0.9-1.1) Sodium (135-145) mmol/L Potassium (3.3-5.1) mmol/L Chloride (96-108) mmol/L Carbon Dioxide (22-29) mmol/L Anion Gap (12-20) BUN (9-16) mg/dL Creatinine (0.5-1.4) mg/dL Estim Creat Clear Calc Estimated GFR POC Glucose (60-115) mg/dL Random Glucose (60-115) mg/dL Calcium (8.4-10.2) mg/dL Magnesium (1.6-2.6) mg/dL Total Bilirubin (0.0-1.0) mg/dL AST (5-37) U/L ALT (0-40) U/L Alkaline Phosphatase (39-117) U/L Troponin I High Sens 25.6 (<3.5-35.0) ng/L Total Protein (6.5-8.0) g/dL Albumin (3.5-5.0) g/dL Lipase (8-78) U/L TSH (0.32-4.0) uIU/mL COVID-19 ([facility]) Negative (Negative) COVID-19 Clin Com See Note 07/03/22 Range/Units 20:04 WBC (4.8-10.8) X10*3/uL RBC (4.60-5.80) X10*6/uL Hgb (14.0-18.0) g/dl Hct (42.0-52.0) % MCV (80.0-98.0) fL MCH (27.0-33.0) pg MCHC (31.0-36.0) g/dl RDW (11.0-16.0) % Plt Count (160-400) X10*3/uL MPV (9.4-12.4) fL Immature Gran % (Auto) (0.0-0.4) % Neut % (Auto) (45-73) % Lymph % (Auto) (20-40) % [place] % (Auto) (2-11) % Eos % (Auto) (0-4) % Baso % (Auto) (0-2) % Lymph # (Auto) (1.2-4.9) X10*3/uL [place] # (Auto) (0.1-1.2) X10*3/uL Eos # (Auto) (0.0-0.4) X10*3/uL Baso # (Auto) (0.0-0.2) X10*3/uL Abs Immat Gran (auto) (0.00-0.03) X10*3/uL Absolute Neuts (auto) (2.0-8.3) x10*3/uL Absolute Nucleated RBC (0.0-0.012) X10*3/uL Nucleated RBC % (auto) (0.0-0.2) /100WBC PT (10.0-13.1) SEC INR (0.9-1.1) Sodium (135-145) mmol/L Potassium (3.3-5.1) mmol/L Chloride (96-108) mmol/L Carbon Dioxide (22-29) mmol/L Anion Gap (12-20) BUN (9-16) mg/dL Creatinine (0.5-1.4) mg/dL Estim Creat Clear Calc Estimated GFR POC Glucose 157 H (60-115) mg/dL Random Glucose (60-115) mg/dL Calcium (8.4-10.2) mg/dL Magnesium (1.6-2.6) mg/dL Total Bilirubin (0.0-1.0) mg/dL AST (5-37) U/L ALT (0-40) U/L Alkaline Phosphatase (39-117) U/L Troponin I High Sens (<3.5-35.0) ng/L Total Protein (6.5-8.0) g/dL Albumin (3.5-5.0) g/dL Lipase (8-78) U/L TSH (0.32-4.0) uIU/mL COVID-19 ([facility]) (Negative) COVID-19 Clin Com <ADONIS Bella - Last Filed: 07/03/22 20:46> Independent Interpretation I performed an independent interpretation of an: EKG <ADONIS Lopes - Last Filed: 07/03/22 18:28> Interpretation: My interpretation: Sinus rhythm with PACs at a rate of 100. QRS 92. QTC 454. No STEMI. No significant change when compared to priors. <ADONIS Lopes - Last Filed: 07/03/22 18:28> Radiology Impression Discussion of test interpretation with radiology: I have reviewed the radiologist's reading. <ADONIS Lopes - Last Filed: 07/03/22 18:28> External Record Review External record reviewed: Inpatient record and Outpatient record <ADONIS Lopes - Last Filed: 07/03/22 18:28> Chronic Conditions Patient?s care impacted by: Diabetes and Hypertension <ADONIS Lopes - Last Filed: 07/03/22 18:28> Renal transplant <ADONIS Lopes - Last Filed: 07/03/22 18:28> Critical Care Time Critical Care Time Critical Care Time: No <ADONIS Bella - Last Filed: 07/03/22 20:46> Discharge Plan Discharge Clinical Impression: Chest pain, Nausea & vomiting, Palpitations <Lou Curtis NP - Last Filed: 07/03/22 15:43> Patient Disposition: Home, Self-Care <Lou Curtis NP - Last Filed: 07/03/22 15:43> Instructions: Chest Pain (DC), Acute Nausea and Vomiting (ED), Heart Palpitations (ED) <Lou Curtis NP - Last Filed: 07/03/22 15:43> Additional Instructions: Take your medications as prescribed. If you were prescribed antibiotics today, it is important that you take your medication to their entirety, do not skip any doses, do not finish them early. Follow-up with your primary care provider this week. Follow-up with cardiology within a week Return to the emergency department with new or worsening symptoms. Such as fevers, chills, chest pain, shortness of breath, nausea, vomiting, dizziness, headache, vision changes, lethargy In case of emergency call 911 <Lou Curtis NP - Last Filed: 07/03/22 15:43> Prescriptions: No Action albuterol sulfate 2.5 mg /3 mL (0.083 %) solution for nebulization 1 amp inhalation TID PRN (Reason: Respiratory Distress) atorvastatin 10 mg tablet 10 mg PO DAILY amlodipine 5 mg tablet 5 mg PO DAILY aspirin 81 mg tablet,delayed release (DR/EC) 81 mg PO DAILY tramadol 50 mg tablet 50 mg PO Q8H PRN (Reason: moderate pain) calcitriol 0.5 mcg capsule 0.5 mcg PO DAILY lidocaine [Lidoderm] 5 % adhesive patch,medicated 1 patch topical DAILY Protocol: Apply to: Apply to: BACK mupirocin 2 % ointment 1 appl topical TID Protocol: Apply to: Apply to: AFFECTED AREA albuterol sulfate [ProAir HFA] 90 mcg/actuation HFA aerosol inhaler 1 puff PO Q4H PRN (Reason: wheezing) tacrolimus 1 mg capsule 2 mg PO DAILY Label Comments: PATIENTS DOSE WAS RECENTLY DECREASED TO 2 IN THE AM INSTEAD OF 3 metoclopramide HCl 10 mg tablet 10 mg PO BEDTIME insulin lispro [Humalog KwikPen Insulin] 100 unit/mL insulin pen 10 unit subcut TIDWM duloxetine 20 mg capsule,delayed release(DR/EC) 20 mg PO DAILY cholecalciferol (vitamin D3) 1,250 mcg (50,000 unit) capsule 1 cap PO SA@1000 insulin glargine [Lantus Solostar U-100 Insulin] 100 unit/mL (3 mL) insulin pen 44 unit subcut BEDTIME prednisone 10 mg Tablet 10 mg PO DAILY famotidine 40 mg Tablet 40 mg PO BEDTIME pantoprazole 40 mg Tablet,Delayed Release (Dr/Ec) 40 mg PO BID gabapentin 100 mg Capsule 100 mg PO BEDTIME loperamide 2 mg Tablet 2 mg PO Q6H PRN (Reason: Diarrhea) diclofenac sodium 1 % Gel 2 g TOPICAL QID PRN (Reason: Pain) Rx Instructions: apply to single elbow, wrist or hand; for hand includes palm/fingers/back of hand <Lou Curtis NP - Last Filed: 07/03/22 15:43> Referrals: [facility] [Provider Group] - 1 week Zoraida Luo MD [Primary Care Provider] - 2 days <Lou Curtis NP - Last Filed: 07/03/22 15:43> Stand Alone Forms: Work/School Release <Lou Curtis NP - Last Filed: 07/03/22 15:43>
--- OUTSIDE RECORDS SUMMARY | 2022-07-03 16:01 | XMS_ITS | Continuity of Care Document ---
:1965 Author Organization [facility] Address [address] [place] [id number]- Care Team Providers Name Role Phone Chantal SEVERINO, Unruly Cee Primary Care Physician Encounter [facility] Date(s): 03/18/21 - 03/20/[address] [address] Discharge Disposition: A-D/C Home Attending Physician: Stepan Chaney MD Admitting Physician: Jhony Maxwell MD Referring Physician: Jhony Maxwell MD Allergies, Adverse Reactions, Alerts Substance Reaction Severity Status morphine itching Active Dilaudid anaphylaxis Active Benadryl1 itching Active 1itch increased Immunizations Given and Recorded Vaccine Date Status Refusal Reason influenza virus vaccine, inactivated1 04/05/20 Given influenza virus vaccine, inactivated2 03/14/09 Given pneumococcal 23-valent vaccine3 04/05/20 Given influenza virus vaccine, live4 04/18/14 Given Pneumococcal Vaccine (oldterm) 05/27/08 Given 1Early/Late Reason: Med Not [id number] Comment: [id number], Nov Early/Late Reason: Med Not [id number] Note: Given at PCP office Medications albuterol 0.083% inhalation solution 3 mL = 2.5 mg, Neb, Every 8 hours Start Date: 12/10/20 Status: Orderedaspirin 81 mg oral tablet 1 tablet = 81 mg, By Mouth, Daily, 0 Refills, Maintenance, 11/03/13 23:15:50 Start Date: 11/03/13 Status: Orderedatorvastatin 10 mg oral tablet 1 tablet = 10 mg, By Mouth, Daily, # 30 tablet, 0 Refills, Maintenance, 05/08/14 9:57:28, Tablet Start Date: 05/08/14 Status: Orderedcalcitriol 0.5 mcg oral capsule 1 capsule = 0.5 mcg, By Mouth, Daily, # 30 capsule, 0 Refills, Maintenance, 12/10/20 16:18:00 EDT, Capsule, Partial fill upon patient request if the prescription is for a schedule II opioid drug. Start Date: 12/10/20 Status: Orderedduloxetine 20 mg oral enteric coated capsule 1 capsule = 20 mg, By Mouth, Daily, 0 Refills, Maintenance, 12/10/20 16:18:00 EDT, Partial fill uponpatient request if the prescription is for a schedule II opioid drug. Start Date: 12/10/20 Status: Orderedergocalciferol 67260 iu oral capsule 1 capsule = 50,000 International_Units, By Mouth, Every week, # 5 capsule, 5 Refills, Maintenance, 12/12/14 11:30:10, 1 capsule By Mouth Every week,x30 days Start Date: 12/12/14 Stop Date: 06/10/15 Status: Orderedgabapentin 100 mg oral capsule 100 mg, Capsule, By Mouth, 03/20/21 9:00:00 EDT Start Date: 03/20/21 Stop Date: 03/20/21 Status: Completedgabapentin 100 mg oral capsule 100 mg, Capsule, By Mouth, 03/20/21 15:00:00 EDT Start Date: 03/20/21 Stop Date: 03/20/21 Status: Completedgabapentin 100 mg oral capsule 100 mg, 1, capsule, By Mouth, 3 times a day, Refills 0, Maintenance, 12/13/20 11:08:00 EDT, Partial fill upon patient request if the prescription is for a schedule II opioid drug. Start Date: 12/13/20 Status: OrderedHumaLOG KwikPen 100 units/mL injectable solution See Instructions, INJECT SUBCUTANEOUSLY PER MD INSTRUCTIONS. MAX DAILY DOSE = 30 UNITS, # 30 mL, 1 Refills, Maintenance, [facility], 160, cm, 04/05/20 7:27:00 EDT, Height, 79.8, kg,04/04/20 19:02:00 EDT, Dry Weight Start Date: 01/03/21 Status: OrderedInsulin Glargine Inj 0.2 mL = 20 units, Subcutaneous Injection, Daily, 0 Refills, Maintenance, 03/20/21 13:33:00 EDT, Injection, Partial fill upon patient request if the prescription is for a schedule II opioid drug. Start Date: 03/20/21 Status: Orderedlevothyroxine 0.025 mg oral tablet 2 tablet = 50 mcg, By Mouth, Daily, 0 Refills, Maintenance, 12/13/20 11:07:00 EDT, Tablet, Partial fill upon patient request if the prescription is for a schedule II opioid drug. Start Date: 12/13/20 Status: Orderedlidocaine 5% topical film 1 patch, Topically, Daily, PRN Pain , Mild, remove after 12 hours, # 13 each, 0 Refills, Maintenance, 12/10/20 16:18:00 EDT, Film, Partial fill upon patient request if the prescription is for a schedule II opioid drug. Start Date: 12/10/20 Status: Orderedloperamide 2 mg oral capsule 2 mg, 1, capsule, By Mouth, 3 times a day, Refills 0, Maintenance, 03/20/21 13:32:00 EDT, Partial fill upon patient request if the prescription is for a schedule II opioid drug. Start Date: 03/20/21 Status: Orderedmetoclopramide 10 mg oral tablet 1 tablet = 10 mg, By Mouth, Every 6 hours, 0 Refills, Maintenance, 12/10/20 16:18:00 EDT, Partial fill upon patient request if the prescription is for a schedule II opioid drug. Start Date: 12/10/20 Status: OrderedNIFEdipine (Eqv-Adalat CC) 30 mg oral tablet, extended release 1 tablet = 30 mg, By Mouth, Daily, # 30 tablet, 0 Refills, Maintenance, 03/20/21 13:35:00 EDT, ER Tablet, [facility], Partial fill upon patient request if the prescription is for a schedule II opioid drug., 160, cm, 03/20/21 8:11:0... Start Date: 03/20/21 Stop Date: 04/19/21 Status: Orderedomeprazole 20 mg oral enteric coated capsule 1 capsule = 20 mg, By Mouth, Daily, # 30 capsule, 11 Refills, Maintenance, 09/10/14 16:36:19, 1 capsule By Mouth Daily,x30 days Start Date: 09/10/14 Stop Date: 09/05/15 Status: Orderedtacrolimus 1 mg oral capsule 3 capsule = 3 mg, By Mouth, Daily before breakfast, 0 Refills, Maintenance, 03/20/21 13:32:00 EDT, Capsule, Partial fill upon patient request if the prescription is for a schedule II opioid drug. Start Date: 03/20/21 Status: Orderedtacrolimus 1 mg oral capsule 2 capsule = 2 mg, By Mouth, Daily at bedtime, 0 Refills, Maintenance, 03/20/21 13:32:00 EDT, Capsule, Partial fill upon patient request if the prescription is for a schedule II opioid drug. Start Date: 03/20/21 Status: Orderedtamsulosin 0.4 mg oral capsule 0.4 mg, 1, capsule, By Mouth, Daily at bedtime, Refills 0, Maintenance, 12/13/20 11:08:00 EDT, Partial fill upon patient request if the prescription is for a schedule II opioid drug. Start Date: 12/13/20 Status: OrderedtraMADol 50 mg oral tablet 1 tablet = 50 mg, By Mouth, Every 12 hours, PRN as needed for pain, 0 Refills, Maintenance, 12/11/2115:23:00 EDT, Tablet, Partial fill upon patient request if the prescription is for a schedule II opioid drug. Start Date: 12/10/20 Status: OrderedtraZODone 100 mg oral tablet 100 mg, 1, tablet, By Mouth, Daily at bedtime, Refills 0, Maintenance, 12/10/20 16:18:00 EDT, Partial fill upon patient request if the prescription is for a schedule II opioid drug. Start Date: 12/10/20 Status: Ordered Problem List Condition Effective Dates Status Health Status Informant DIABETES MELLITUS(Confirmed)1 1974 Active End stage renal disease(Confirmed) Active Acid reflux(Confirmed) Active -donor kidney 11/04/13 Active transplant(Confirmed)2 HYPERTENSION(Confirmed) Active Secondary hyperparathyroidism of renal Active origin(Confirmed) 1Type [id number] induction Vital Signs Most recent to oldest 1 2 3 [Reference Range]: Height 160 cm 160 cm 160 cm (03/20/21 4:53 PM) (03/20/21 8:11 AM) (03/20/21 12: 23 AM) Weight 77 kg (03/18/21 2:32 PM) Oxygen Saturation [94-100 %] 99 % 99 % 98 % (03/20/21 4:53 PM) (03/20/21 8:11 AM) (03/20/21 12: 23 AM) Pulse Rate [55-90 bpm] 82 bpm 80 bpm 62 bpm (03/20/21 4:53 PM) (03/20/21 8:11 AM) (03/20/21 12: 23 AM) Body Mass Index [18.5-24.99] 30.08 *>HHI* (03/18/21 2:32 PM) Blood Pressure [90-138/55-84 157/94 mm Hg 140/81 mm Hg 131 /78 mm Hg mm Hg] *H* *H* (03/20/21 12:23 A M) (03/20/21 4:53 PM) (03/20/21 8:11 AM) Respiratory Rate [16-30 18 br/min 18 br/min 16 br/mi n br/min] (03/20/21 2:41 PM) (03/20/21 8:12 AM) (03/20/21 8:1 1 AM) Temperature [96.8-100.4 DegF] 98.5 DegF 97.6 DegF 97 .9 DegF (03/20/21 4:53 PM) (03/20/21 8:11 AM) (03/20/21 12: 23 AM) Liters per Minute 0 L/min (03/18/21 2:32 PM) Mode of Delivery (Oxygen) Room air Room air Room a ir (03/20/21 4:53 PM) (03/20/21 8:11 AM) (03/20/21 12: 23 AM) Blood pressure sites Arm, right Arm, right Arm, right (03/20/21 4:53 PM) (03/20/21 12:23 AM) (03/20/21 12 :20 AM) Temperature Route Oral Oral Oral (03/20/21 4:53 PM) (03/20/21 8:11 AM) (03/20/21 12: 23 AM) Dry Weight 77 kg (03/18/21 2:32 PM) Social History Social History Type Response Smoking Status Never smoker entered on: 09/07/14 Sex
--- OUTSIDE RECORDS SUMMARY | 2022-07-03 16:01 | XMS_ITS | Continuity of Care Document ---
:1965 Author Organization [facility] Address [address] [place] [id number]- Care Team Providers Name Role Phone Unruly Cornejo MD Primary Care Physician Encounter [facility] Date(s): 02/27/19 - 06/21/19 [facility] [address] [place] [id number]- [facility] Attending Physician: Winsome Anderson DO Admitting Physician: Winsome Anderson DO Referring Physician: Unruly Cornejo MD Allergies, Adverse Reactions, Alerts Substance Reaction Severity Status morphine itching Active Dilaudid anaphylaxis Active Benadryl1 itching Active 1itch increased Immunizations Given and Recorded Vaccine Date Status Refusal Reason influenza virus vaccine, live1 04/18/14 Given influenza virus vaccine, inactivated2 03/14/09 Given Pneumococcal Vaccine (oldterm) 05/27/08 Given 1Admin Note: Given at PCP [id number] Comment: [id number], 30 VALE 10 Medications acetaminophen-HYDROcodone 325 mg-5 mg oral tablet 1 tablet, By Mouth, Every 4 hours, PRN for pain, # 12 tablet, 0 Refills, Maintenance, 02/14/15 21:07:42, Tablet Start Date: 02/14/15 Status: Orderedaspirin 81 mg oral tablet 1 tablet = 81 mg, By Mouth, Daily, 0 Refills, Maintenance, 11/03/13 23:15:50 Start Date: 11/03/13 Status: Orderedatorvastatin 10 mg oral tablet 1 tablet = 10 mg, By Mouth, Daily, # 30 tablet, 0 Refills, Maintenance, 05/08/14 9:57:28, Tablet Start Date: 05/08/14 Status: OrderedBlood Pressure Monitor See Instructions, # 1 box, Maintenance, audible read out, 04/28/12 9:29:18 Start Date: 04/28/12 Status: Orderedergocalciferol 53650 iu oral capsule 1 capsule = 50,000 International_Units, By Mouth, Every week, # 5 capsule, 5 Refills, Maintenance, 12/12/14 11:30:10, 1 capsule By Mouth Every week,x30 days Start Date: 12/12/14 Stop Date: 06/10/15 Status: Orderedergocalciferol 54748 iu oral capsule 1 capsule = 50,000 International_Units, By Mouth, Every week, # 5 capsule, 5 Refills, Maintenance, 07/31/14 15:48:12, 1 capsule By Mouth Every week,x30 days Start Date: 07/31/14 Stop Date: 01/27/15 Status: OrderedFreestyle Lite Lancets See Instructions, # 150 each, Refills 11, Tot. Refills 11, Maintenance, type 2 diabetes testing 4-5 times daily.1mo., 06/29/18 15:41:30 EST, Compound Start Date: 06/29/18 Stop Date: 07/29/18 Status: OrderedFreestyle Lite Monitor See Instructions, # 1 each, Refills 0, Tot. Refills 0, Maintenance, use as directed pt to check blood 4x daily 250.02, 06/29/18 15:41:43 EST, Compound Start Date: 06/29/18 Stop Date: 07/29/18 Status: OrderedFreestyle Lite Test Strips See Instructions, # 150 each, Refills 11, Tot. Refills 11, Maintenance, test BG 4x daily 1mo.DxE10.9, 06/29/18 15:41:34 EST, pt out, please fill, please call the office with any issues filling Rx, Compound Start Date: 06/29/18 Stop Date: 07/29/18 Status: OrderedGlucagon Emergency Kit See Instructions, PRN, # 2 kit, Refills 3, Tot. Refills 3, Maintenance, Blood Glucose, inject IM in the event of severe hypoglycemia. for T1DM/E10, 06/29/18 15:41:17 EST, Compound Start Date: 06/29/18 Stop Date: 07/29/18 Status: OrderedHumalog Kwik Pen 100 units/mL subcutaneous injection See Instructions, Subcutaneous Infusion, 8 units 3 x before meals for T1DM/E10, # 15 mL, 11 Refills,Maintenance, 06/29/18 15:40:50 EST, Panamanian Start Date: 06/29/18 Stop Date: 07/29/18 Status: OrderedImodium A-D 2 mg oral tablet 1 tablet = 2 mg, By Mouth, Every 3 hours, PRN Loose Stool, # 40 tablet, 0 Refills, Maintenance Start Date: 03/13/09 Status: OrderedLantus Solostar Pen 100 units/mL subcutaneous solution = 32 units, Subcutaneous Injection, Daily, for T1DM/E10, # 15 mL, 11 Refills, Maintenance, 06/29/18 15:41:54 EST, Solution, increased Start Date: 06/29/18 Stop Date: 06/13/21 Status: Orderedlevothyroxine 0.05 mg oral tablet 1 tablet = 50 mcg, By Mouth, Daily, # 30 tablet, 11 Refills, Maintenance, 06/08/17 8:29:58, Tablet Start Date: 06/08/17 Status: OrderedNuLYTELY with Flavor Packs oral powder for reconstitution See Instructions, 240 mL By Mouth Every 15 minutes, # 4,000 mL, 0 Refills, Maintenance, 09/13/18 12:47:36 EDT, 240 mL By Mouth Every 15 minutes Start Date: 09/13/18 Status: Orderedomeprazole 20 mg oral enteric coated capsule 1 capsule = 20 mg, By Mouth, Daily, # 30 capsule, 11 Refills, Maintenance, 09/10/14 16:36:19, 1 capsule By Mouth Daily,x30 days Start Date: 09/10/14 Stop Date: 09/05/15 Status: OrderedPen [place], 31 G x 5 mm BD Ultra Fine III See Instructions, # 200 each, Refills 5, Tot. Refills 5, Maintenance, use to inject insulin 4 times daily. for Type 1 Diabetes Mellitus/E1-0, 06/29/18 15:41:25 EST, Compound Start Date: 06/29/18 Stop Date: 07/29/18 Status: Orderedtacrolimus 1 mg oral capsule 2 capsule = 2 mg, By Mouth, Every 12 hours, # 120 capsule, 11 Refills, Maintenance, 11/10/13 14:55:10, V42.0 Kidney Transplant 11/04/13, 4 capsule By Mouth Every 12 hours,x30 days Start Date: 11/10/13 Stop Date: 11/05/14 Status: Ordered Problem List Condition Effective Dates Status Health Status Informant DIABETES MELLITUS(Confirmed)1974 Active End stage renal disease(Confirmed) Active Acid reflux(Confirmed) Active -donor kidney 11/04/13 Active transplant(Confirmed)2 HYPERTENSION(Confirmed) Active Secondary hyperparathyroidism of renal Active origin(Confirmed) 1Type [id number] induction Social History Social History Type Response Smoking Status Never smoker entered on: 09/07/14 Sex
--- OUTSIDE RECORDS SUMMARY | 2022-07-03 16:01 | XMS_ITS | Continuity of Care Document ---
:1965 Author Organization [facility] Address [address] [place] [id number]- Care Team Providers Name Role Phone Not on Staff, PCP Primary Care Physician Unavailable Encounter [facility] Date(s): 01/07/21 - 01/07/[address] [address]- Discharge Disposition: A-D/C Walkout Attending Physician: Rome Santo MD Admitting Physician: Rome Santo MD Referring Physician: Not on Staff, Referring MD Vital Signs Most recent to oldest [Reference Range]: 1 2 Weight 74.8 kg (01/07/21 6:24 PM) Oxygen Saturation [94-100 %] 100 % 100 % (01/07/21 6:24 PM) (01/07/21 6:04 PM) Pulse Rate [55-90 bpm] 81 bpm 90 bpm (01/07/21 6:24 PM) (01/07/21 6:04 PM) Blood Pressure [90-138/55-84 mm Hg] 137/85 mm Hg (01/07/21 6:24 PM) Respiratory Rate [16-30 br/min] 16 br/min (01/07/21 6:24 PM) Temperature [96.8-100.4 DegF] 98.9 DegF (01/07/21 6:24 PM) Mode of Delivery (Oxygen) Room air Room air (01/07/21 6:24 PM) (01/07/21 6:04 PM) Blood pressure sites Arm, right (01/07/21 6:24 PM) Temperature Route Oral (01/07/21 6:24 PM) Dry Weight 74.8 kg (01/07/21 6:24 PM) Weight Obtained Via Standing scale (01/07/21 6:24 PM) Dry Weight Obtained Via Standing scale (01/07/21 6:24 PM)
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
--- OUTSIDE RECORDS SUMMARY | 2022-07-03 16:02 | XMS_ITS | Continuity of Care Document ---
:1965 Author Organization [facility] Address [address] [place] [phone]- Care Team Providers Name Role Phone Chantal SEVERINO, Unruly Cee Primary Care Physician [phone] Encounter [facility] Date(s): 03/20/21 - 04/19/21 [facility] [address] [place] [id number] Attending Physician: AdmBhakti lpoez Admitting Physician: Admtr, Ar8 Referring Physician: Admtr, Ar8 Allergies, Adverse Reactions, Alerts Substance Reaction Severity Status morphine itching Active Dilaudid anaphylaxis Active Benadryl1 itching Active 1itch increased Immunizations Given and Recorded Vaccine Date Status Refusal Reason influenza virus vaccine, inactivated1 04/05/20 Given influenza virus vaccine, inactivated2 03/14/09 Given pneumococcal 23-valent vaccine3 04/05/20 Given influenza virus vaccine, live4 04/18/14 Given Pneumococcal Vaccine (oldterm) 05/27/08 Given 1Early/Late Reason: Med Not [id number] Comment: [id number], Nov Early/Late Reason: Med Not [id number] Note: Given at PCP office Medications albuterol [...] opioid drug. Start Date: 12/10/20 Status: Orderedergocalciferol 55409 iu oral capsule 1 capsule = 50,000 International_Units, By Mouth, Every week, # 5 capsule, 5 Refills, Maintenance, 12/12/14 11:30:10, 1 capsule By Mouth Every week,x30 days Start Date: 12/12/14 Stop Date: 06/10/15 Status: Orderedgabapentin 100 mg oral capsule 100 mg, 1, [...] UNITS, # 30 mL, 1 Refills, Maintenance, [facility], 160, cm, 04/05/20 7:27:00 EDT, [...] Refills, Maintenance, 03/20/21 13:35:00 EDT, ER Tablet, [facility], Partial fill upon patient request [...] Secondary hyperparathyroidism of renal Active origin(Confirmed) 1Type [id number] induction Social History Social History Type Response Smoking Status Never smoker entered on: 09/07/14 Sex
--- OUTSIDE RECORDS SUMMARY | 2022-07-03 16:02 | XMS_ITS | Continuity of Care Document ---
:1965 Author Organization [facility] Address [address] [place] [address]- Care Team Providers Name Role Phone Not on Staff, PCP Primary Care Physician Unavailable Encounter [facility] Date(s): 06/03/21 - 10/01/21 [facility] [address] [place] [phone]- Attending Physician: Josemanuel Calderon MD Admitting Physician: Josemanuel Calderon MD Referring Physician: Siria Mendieta MD Allergies, Adverse Reactions, Alerts Substance Reaction Severity Status morphine itching Active Dilaudid anaphylaxis Active Benadryl1 itching Active 1itch increased Immunizations Given and Recorded Vaccine Date Status Refusal Reason influenza virus vaccine, inactivated1 04/05/20 Given influenza virus vaccine, inactivated 06/24/17 Recorded influenza virus vaccine, inactivated 06/09/16 Recorded influenza virus vaccine, inactivated 04/16/14 Recorded influenza virus vaccine, inactivated 03/12/12 Recorded influenza virus vaccine, inactivated2 03/14/09 Given influenza virus vaccine, inactivated 04/10/02 Recorded pneumococcal 23-valent vaccine3 04/05/20 Given pneumococcal 23-valent vaccine 11/18/01 Recorded tetanus/diphtheria/pertussis, acel(Tdap) 06/09/16 Recorde d influenza virus vaccine, live4 04/18/14 Given Measles/Mumps/Rubella Virus Vaccine 11/12/10 Recorded Pneumococcal Vaccine (oldterm) 05/27/08 Given tetanus-diphtheria toxoids (Td) 11/18/01 Recorded 1Early/Late Reason: Med Not [id number] Comment: [id number], Nov Early/Late Reason: Med Not [id number] Note: Given at PCP office Medications albuterol [...] II opioid drug. Start Date: 12/10/20 Status: OrderedEasy Touch 31 gauge x 3/16 needle Easy Touch 31 gauge x 3/16 needle, See Instructions, # 200 Unknown, 5 Refills, USE FOUR TIMES DAILY, 160, cm, 03/20/21 16:53:00 EDT, Height, 77, kg, 03/18/21 14:32:00 EDT, Dry Weight Start Date: 05/06/21 Status: Orderedergocalciferol 51925 iu oral capsule 1 capsule = 50,000 International_Units, By Mouth, Every week, # 5 capsule, 5 Refills, Maintenance, 12/12/14 11:30:10, 1 capsule By Mouth Every week,x30 days Start Date: 12/12/14 Stop Date: 06/10/15 Status: OrderedFreestyle John 2 reader Freestyle John 2 reader, See Instructions, # 1 each, Refills 1, Tot. Refills 1, Maintenance, check BS 5 times daily, E 11.65, 09/26/21 14:19:00 EDT, Supply, 160, cm, 09/26/21 13:56:00 EDT, Height, 75,kg, 07/03/21 16:19:00 EST, Dry Weight Start Date: 09/26/21 Status: OrderedFreestyle John 2 sensors Freestyle John 2 sensors, See Instructions, # 2 each, Refills 11, Tot. Refills 11, Maintenance, change every 14 days, E 11.65, 09/26/21 14:18:00 EDT, Supply, 160, cm, 09/26/21 13:56:00 EDT, Height, 75, kg, 07/03/21 16:19:00 EST, Dry Weight Start Date: 09/26/21 Status: Orderedgabapentin 100 mg oral capsule 100 [...] UNITS, # 30 mL, 1 Refills, Maintenance, [facility], 160, cm, 04/05/20 7:27:00 EDT, [...] Refills, Maintenance, 03/20/21 13:35:00 EDT, ER Tablet, [facility], Partial fill upon patient request [...] Start Date: 09/10/14 Stop Date: 09/05/15 Status: OrderedpredniSONE 20 mg oral tablet 0 Refills, Maintenance, 09/26/21 14:20:00 EDT, Partial fill upon patient request if the prescriptionis for a schedule II opioid drug. Start Date: 09/26/21 Status: Orderedtacrolimus 1 mg oral capsule 3 [...] Secondary hyperparathyroidism of renal Active origin(Confirmed) 1Type [id number] induction Social History Social History Type Response Smoking Status Never smoker entered on: 09/07/14 Sex
--- OUTSIDE RECORDS SUMMARY | 2022-07-03 16:02 | XMS_ITS | Continuity of Care Document ---
:1965 Author Organization [facility] Address [address] [place] [phone]- Care Team Providers Name Role Phone Unruly Cornejo MD Primary Care Physician Encounter [facility] Date(s): 06/29/19 - 10/20/19 [facility] [address] [place] [address] [facility] Attending Physician: Esperanza Khalil MD Admitting Physician: Esperanza Khalil MD Referring Physician: Unruly Cornejo MD Allergies, Adverse Reactions, Alerts Substance Reaction Severity Status morphine itching Active Dilaudid anaphylaxis Active Benadryl1 itching Active 1itch increased Immunizations Given and Recorded Vaccine Date Status Refusal Reason influenza virus vaccine, live1 04/18/14 Given influenza virus vaccine, inactivated2 03/14/09 Given Pneumococcal Vaccine (oldterm) 05/27/08 Given 1Admin Note: Given at PCP [id number] Comment: [id number], 30 VALE 10 Medications acetaminophen-HYDROcodone 325 mg-5 [...] 04/28/12 9:29:18 Start Date: 04/28/12 Status: Orderedergocalciferol 24364 iu oral capsule 1 capsule = 50,000 International_Units, By Mouth, Every week, # 5 capsule, 5 Refills, Maintenance, 12/12/14 11:30:10, 1 capsule By Mouth Every week,x30 days Start Date: 12/12/14 Stop Date: 06/10/15 Status: Orderedergocalciferol 39796 iu oral capsule 1 capsule = 50,000 [...] 11, Maintenance, test BG 4x daily 1mo.DxE10.9, 06/29/19 15:23:00 EST, pt out, please fill, please call the office with any issues filling Rx, Compound, 159, cm, 06/29/19 14:55:00 EST, Height Start Date: 06/29/19 Stop Date: 06/23/20 Status: OrderedGlucagon Emergency Kit See Instructions, PRN, # 2 kit, Refills 3, Tot. Refills 3, Maintenance, Blood Glucose, inject IM in the event of severe hypoglycemia. for T1DM/E10, 06/29/18 15:41:17 EST, Compound Start Date: 06/29/18 Stop Date: 07/29/18 Status: OrderedHumalog Kwik Pen 100 units/mL subcutaneous injection See Instructions, Subcutaneous Infusion, Max daily dose 30 units, follow instructions from office. E10.65, # 30 mL, 5 Refills, Maintenance, 06/29/19 15:21:00 EST, [facility] - , [place], 159, cm, 06/29/19 14:55:00 EST, Height Start Date: 06/29/19 Stop Date: 12/26/19 Status: OrderedImodium A-D 2 mg oral tablet 1 tablet = 2 mg, By Mouth, Every 3 hours, PRN Loose Stool, # 40 tablet, 0 Refills, Maintenance Start Date: 03/13/09 Status: OrderedLantus Solostar Pen 100 units/mL subcutaneous solution See Instructions, Take 28 units daily. E10.65, # 15 mL, 5 Refills, Maintenance, 06/29/19 15:20:00 EST, Solution, [facility] - , increased, 159, cm, 06/29/19 14:55:00 EST, Height Start Date: 06/29/19 Status: Orderedlevothyroxine 0.05 mg oral tablet 1 [...] Date: 09/10/14 Stop Date: 09/05/15 Status: OrderedPen [place], 31 G x 5 mm BD Ultra Fine III See Instructions, # 200 each, Refills 11, Tot. Refills 11, Maintenance, Use to inject insulin 4 times daily. E10.65, 06/29/19 15:24:00 EST, Compound, 159, cm, 06/29/19 14:55:00 EST, Height Start Date: 06/29/19 Stop Date: 06/23/20 Status: Orderedtacrolimus 1 mg oral capsule 2 [...] Secondary hyperparathyroidism of renal Active origin(Confirmed) 1Type [id number] induction Social History Social History Type Response Smoking Status Never smoker entered on: 09/07/14 Sex
--- OUTSIDE RECORDS SUMMARY | 2022-07-03 16:02 | XMS_ITS | Continuity of Care Document ---
:1965 Author Organization [facility] Address Unavailable , Care Team Providers Name Role Phone Not on Staff, PCP Primary Care Physician Unavailable Encounter [facility] R [id number] Date(s): 11/27/21 - 12/27/21 [facility] Attending Physician: Bhakti Elam Allergies, Adverse Reactions, Alerts Substance Reaction Severity [...] (Td) 11/18/01 Recorded 1Early/Late Reason: Med Not [id number] Comment: [id number], Nov Early/Late Reason: Med Not [id number] Note: Given at PCP office Medications albuterol [...] Dry Weight Start Date: 05/06/21 Status: Orderedergocalciferol 22374 iu oral capsule 1 capsule = 50,000 [...] 100 units/mL injectable solution See Instructions, INJECT 10 units SUBCUTANEOUSLY tid with meals. MAX DAILY DOSE = 30 UNITS, # 9 mL, 11 Refills, 10/07/21 15:10:00 EDT, [facility], 160, cm, 09/26/21 13:56:00 EDT, Height, 75, kg, 07/03/21 16:19:00 EST, Dry Weight Start Date: 10/07/21 Status: OrderedLantus 100 u/ml subcutaneous solution See Instructions, Subcutaneous Injection, INject 44 units once daily, E 11.65, # 15 mL, 11 Refills, Maintenance, 10/07/21 15:12:00 EDT, [facility], Partial fill upon patient requestif the prescription is for a schedule II opioid d... Start Date: 10/07/21 Stop Date: 09/21/24 Status: Orderedlevothyroxine 0.025 mg oral tablet 2 [...] Refills, Maintenance, 03/20/21 13:35:00 EDT, ER Tablet, [facility], Partial fill upon patient request [...] Date: 09/10/14 Stop Date: 09/05/15 Status: OrderedPen [place], 32 G x 4 mm BD Ultra Fine III See instructions, # 120 each, Refills 11, Tot. Refills 11, Maintenance, inject 4 times daily, E 11.65, 10/07/21 15:12:00 EDT, Supply, 160, cm, 09/26/21 13:56:00 EDT, Height, 75, kg, 07/03/21 16:19:00 EST, Dry Weight Start Date: 10/07/21 Stop Date: 10/02/22 Status: OrderedpredniSONE 20 mg oral tablet 0 [...] Secondary hyperparathyroidism of renal Active origin(Confirmed) 1Type [id number] induction Vital Signs Most recent to oldest [Reference Range]: 1 2 Height 160 cm 160 cm (10/27/13 3:41 PM) (11/08/12 7:50 AM) Weight 76.5 kg 76.5 kg (10/27/13 3:41 PM) (11/08/12 7:50 AM) Body Mass Index [18.50-24.99] 29.88 29.88 *H* *H* (10/27/13 3:41 PM) (11/08/12 7:50 AM) Sensory deficits None None (10/27/13 3:41 PM) (11/08/12 7:50 AM) Social History Social History Type Response Smoking Status Never smoker entered on: 09/07/14 Sex
--- OUTSIDE RECORDS SUMMARY | 2022-07-03 16:02 | XMS_ITS | Continuity of Care Document ---
:1965 Author Organization [facility] Address [address] [place] [address]- Care Team Providers Name Role Phone Not on Staff, PCP Primary Care Physician Unavailable Encounter [facility] Date(s): 01/15/21 - 02/27/[address] [address]- Attending Physician: Siria Mendieta MD Admitting Physician: Siria Mendieta MD Referring Physician: Siria Mendieta MD
--- OUTSIDE RECORDS SUMMARY | 2022-07-03 16:02 | XMS_ITS | Continuity of Care Document ---
:1965 Author Organization [facility] Address [address] [place] [address]- Care Team Providers Name Role Phone Zoraida Luo MD Primary [id number] Date(s): 01/13/22 - 01/20/22 [facility] [address] [place] [address]- Attending Physician: Henrry Arteaga MD Admitting Physician: Henrry Arteaga MD Allergies, Adverse Reactions, Alerts No Known Allergies Medications acetaminophen 500 mg oral tablet 1 tablet = 500 mg, By Mouth, Every 4 hours, PRN as needed for fever, # 100 tablet, 0 Refills, Maintenance, 12/31/21 17:36:00 EDT, Tablet, Partial fill upon patient request if the prescription is for a schedule II opioid drug. Start Date: 12/31/21 Status: Orderedalbuterol 0.083% inhalation solution 3 mL = 2.5 mg, Inhalation, Every 6 hours, PRN for wheezing, # 25 each, 0 Refills, Maintenance, 12/31/21 17:38:00 EDT, Solution, Partial fill upon patient request if the prescription is for a schedule II opioid drug. Start Date: 12/31/21 Status: OrderedamLODIPine 10 mg oral tablet 1 tablet = 10 mg, By Mouth, Daily, Take instead of the 5mg tablets for blood pressure, # 30 tablet, 2 Refills, Maintenance, 01/06/22 9:53:00 EDT, Tablet, [facility], Partial fill upon patient request if the prescription is for a s... Start Date: 01/06/22 Status: OrderedAspirin Low Dose 81 mg oral delayed release tablet 1 tablet = 81 mg, By Mouth, Daily, # 30 tablet, 0 Refills, Maintenance, 12/31/21 17:37:00 EDT, EC Tablet, Partial fill upon patient request if the prescription is for a schedule II opioid drug. Start Date: 12/31/21 Status: Orderedatorvastatin 10 mg oral tablet 1 tablet = 10 mg, By Mouth, Daily, # 30 tablet, 0 Refills, Maintenance, 12/31/21 17:38:00 EDT, Partial fill upon patient request if the prescription is for a schedule II opioid drug. Start Date: 12/31/21 Status: OrderedAugmentin 875 mg-125 mg oral tablet 1 tablet, By Mouth, 2 times a day, # 14 tablet, 0 Refills, Acute 01/27/22 16:00:00 EDT, 01/13/22 15:28:00 EDT, [facility], Partial fill upon patient request if the prescription is for a schedule II opioid drug., 76.2, kg, 01/13/22... Start Date: 01/13/22 Stop Date: 01/27/22 Status: Orderedcalcitriol 0.5 mcg oral capsule 1 capsule = 0.5 mcg, By Mouth, Daily, # 30 capsule, 0 Refills, Maintenance, 12/31/21 17:37:00 EDT, Capsule, Partial fill upon patient request if the prescription is for a schedule II opioid drug. Start Date: 12/31/21 Status: Orderedduloxetine 20 mg oral enteric coated capsule TAKE 1 CAPSULE BY MOUTH EVERY DAY Start Date: 12/31/21 Status: Orderedfamotidine 40 mg oral tablet 1 tablet = 40 mg, By Mouth, Daily at bedtime, # 30 tablet, 0 Refills, Maintenance, 12/31/21 17:37:00EDT, Tablet, Partial fill upon patient request if the prescription is for a schedule II opioid drug. Start Date: 12/31/21 Status: Orderedgabapentin 100 mg oral capsule TAKE ONE CAPSULE AT BEDTIME Start Date: 12/31/21 Status: OrderedInsulin Aspart FlexPen 100 units/mL injectable solution = 10 units, Subcutaneous Injection, 3 times a day before meals, INJECT 9 UNITS SUBCUTANEOUSLY WITH BREAKFAST, 9 UNITS SUBCUTANEOUSLY WITH LUNCH AND 7 UNITS SUBCUTANEOUSLY WITH DINNER Start Date: 12/31/21 Status: OrderedLantus Solostar Pen 100 units/mL subcutaneous solution INJECT 44 UNITS SUBCUTANEOUSLY EVERY DAY Start Date: 12/31/21 Status: Orderedmetoclopramide 10 mg oral tablet TAKE 1 TABLET BY MOUTH AT BEDTIME Start Date: 12/31/21 Status: Orderedmupirocin 2% topical ointment 1 application, Topically, 3 times a day, # 15 Gm, 0 Refills, Maintenance, 12/31/21 17:36:00 EDT, Ointment, Partial fill upon patient request if the prescription is for a schedule II opioid drug. Start Date: 12/31/21 Status: OrderedOff-loading boot (Right) Off-loading boot (Right), See Instructions, # 1 each, Refills 0, Tot. Refills 0, Maintenance, Right foto off-loading boot Dx: Right 5th toe amputation, 01/06/22 10:55:00 EDT, Supply Start Date: 01/06/22 Status: OrderedOFFLOADING SHOE OFFLOADING SHOE, See Instructions, # 1 each, Refills 0, Tot. Refills 0, Maintenance, use as directedDX: right fifth toe amputation, 01/08/22 12:04:00 EDT, Supply Start Date: 01/08/22 Status: Orderedpantoprazole 40 mg oral delayed release tablet 1 tablet = 40 mg, By Mouth, 2 times a day, # 60 tablet, 0 Refills, Maintenance, 12/31/21 17:36:00 EDT, CR Tablet Start Date: 12/31/21 Status: OrderedpredniSONE 10 mg oral tablet 1 tablet = 10 mg, By Mouth, Daily, # 10 tablet, 0 Refills, Maintenance, 12/31/21 17:38:00 EDT, Tablet, Partial fill upon patient request if the prescription is for a schedule II opioid drug. Start Date: 12/31/21 Status: Orderedtacrolimus 1 mg oral capsule 2 capsule = 2 mg, By Mouth, Every 12 hours, Take 1 capsule everyday in the morning and 2 capsules everyday in the evening Start Date: 12/31/21 Status: OrderedtraZODone 50 mg oral tablet 25 mg, 0.5, tablet, By Mouth, Daily at bedtime, # 15 tablet, Refills 0, Maintenance, 12/31/21 17:36:00 EDT, Partial fill upon patient request if the prescription is for a schedule II opioid drug. Start Date: 12/31/21 Status: OrderedVitamin D3 50,000 intl units oral capsule 1 capsule = 1,250 mcg, By Mouth, Every week, # 12 capsule, 0 Refills, Maintenance, 12/31/21 17:37:00EDT, Capsule, Partial fill upon patient request if the prescription is for a schedule II opioid drug. Start Date: 12/31/21 Status: Ordered Problem List Condition Effective Dates Status Health Status Informant Diabetic foot infection(Confirmed) Active Vital Signs Most recent to oldest [Reference Range]: 1 Weight 76.2 kg (01/13/22 2:47 PM) Oxygen Saturation [94-100 %] 98 % (01/13/22 2:47 PM) Pulse Rate [55-90 bpm] 91 bpm *H* (01/13/22 2:47 PM) Blood Pressure [90-138/55-84 mm Hg] 100/70 mm Hg (01/13/22 2:47 PM) Mode of Delivery (Oxygen) Room air (01/13/22 2:47 PM) Blood pressure sites Arm, left (01/13/22 2:47 PM) Dry Weight 76.2 kg (01/13/22 2:47 PM) Weight Obtained Via Patient/family stated (01/13/22 2:47 PM) Dry Weight Obtained Via Patient/family stated (01/13/22 2:47 PM)
--- OUTSIDE RECORDS SUMMARY | 2022-07-03 16:02 | XMS_ITS | Continuity of Care Document ---
:1965 Author Organization [facility] Address [address] [place] [address]- Care Team Providers Name Role Phone Chantal SEVERINO, Unruly Cee Primary Care Physician [phone] Encounter [facility] [place] Date(s): 09/20/19 - 09/30/19 [facility] [address] [place] [address]- [facility] Attending Physician: Admjohn, Bhakti Admitting Physician: AdmtrBhakti Referring Physician: Admtr, Ar8 Allergies, Adverse Reactions, Alerts Substance Reaction Severity Status morphine itching Active Dilaudid anaphylaxis Active Benadryl1 itching Active 1itch increased Immunizations Given and Recorded Vaccine Date Status Refusal Reason influenza virus vaccine, live1 04/18/14 Given influenza virus vaccine, inactivated2 03/14/09 Given Pneumococcal Vaccine (oldterm) 05/27/08 Given 1Admin Note: Given at PCP [id number] Comment: [id number], 30 VALE 10 Medications acetaminophen-HYDROcodone 325 mg-5 [...] 04/28/12 9:29:18 Start Date: 04/28/12 Status: Orderedergocalciferol 16913 iu oral capsule 1 capsule = 50,000 International_Units, By Mouth, Every week, # 5 capsule, 5 Refills, Maintenance, 12/12/14 11:30:10, 1 capsule By Mouth Every week,x30 days Start Date: 12/12/14 Stop Date: 06/10/15 Status: Orderedergocalciferol 03453 iu oral capsule 1 capsule = 50,000 [...] mL, 5 Refills, Maintenance, 06/29/19 15:21:00 EST, [facility] - , English, 159, cm, 06/29/19 14:55:00 EST, Height Start [...] 5 Refills, Maintenance, 06/29/19 15:20:00 EST, Solution, [facility], increased, 159, cm, 06/29/19 14:55:00 EST, Height [...] Date: 09/10/14 Stop Date: 09/05/15 Status: OrderedPen [place], 31 G x 5 mm BD Ultra [...] Secondary hyperparathyroidism of renal Active origin(Confirmed) 1Type [id number] induction Social History Social History Type Response Smoking Status Never smoker entered on: 09/07/14 Sex
--- OUTSIDE RECORDS SUMMARY | 2022-07-03 16:02 | XMS_ITS | Continuity of Care Document ---
:1965 Author Organization [facility] Address [address] [place] [address]- Care Team Providers Name Role Phone Chantal SEVERINO, Unruly Cee Primary Care Physician [phone] [place] [facility](s[place] 12/06/20 - 01/05/[address] [address] Attending Physician: Kamari Monroy MD Referring Physician: Not on Staff, Referring MD Allergies, Adverse Reactions, Alerts Substance Reaction Severity Status morphine itching Active Dilaudid anaphylaxis Active Benadryl1 itching Active 1itch increased Immunizations Given and Recorded Vaccine Date Status Refusal Reason influenza virus vaccine, inactivated1 04/05/20 Given influenza virus vaccine, inactivated2 03/14/09 Given pneumococcal 23-valent vaccine3 04/05/20 Given influenza virus vaccine, live4 04/18/14 Given Pneumococcal Vaccine (oldterm) 05/27/08 Given 1Early/Late Reason: Med Not [id number] Comment: [id number], 30 Nov Early/Late Reason: Med Not [id number] Note: Given at PCP office Medications albuterol [...] out, 04/28/12 9:29:18 Start Date: 04/28/12 Status: Orderedcalcitriol 0.5 mcg oral capsule 1 [...] opioid drug. Start Date: 12/10/20 Status: Orderedergocalciferol 55117 iu oral capsule 1 capsule = 50,000 International_Units, By Mouth, Every week, # 5 capsule, 5 Refills, Maintenance, 12/12/14 11:30:10, 1 capsule By Mouth Every week,x30 days Start Date: 12/12/14 Stop Date: 06/10/15 Status: OrderedFreestyle Lite Lancets See Instructions, # [...] Start Date: 07/29/20 Stop Date: 01/25/21 Status: Orderedgabapentin 100 mg oral capsule 100 mg, 1, capsule, By Mouth, 3 times a day, Refills 0, Maintenance, 12/13/20 11:08:00 EDT, Partial fill upon patient request if the prescription is for a schedule II opioid drug. Start Date: 12/13/20 Status: OrderedGlucagon Emergency Kit See Instructions, PRN, # 2 kit, Refills 3, Tot. Refills 3, Maintenance, Blood Glucose, inject IM in the event of severe hypoglycemia. for T1DM/E10, 06/29/18 15:41:17 EST, Compound Start Date: 06/29/18 Stop Date: 07/29/18 Status: OrderedHumaLOG KwikPen 100 units/mL injectable solution See Instructions, INJECT SUBCUTANEOUSLY PER MD INSTRUCTIONS. MAX DAILY DOSE = 30 UNITS, # 30 mL, 1 Refills, Maintenance, [facility], 160, cm, 04/05/20 7:27:00 EDT, Height, 79.8, kg,04/04/20 19:02:00 EDT, Dry Weight Start Date: 01/03/21 Status: OrderedImodium A-D 2 mg oral tablet 1 tablet = 2 mg, By Mouth, Every 3 hours, PRN Loose Stool, # 40 tablet, 0 Refills, Maintenance Start Date: 03/13/09 Status: Orderedinsulin glargine 100 u/ml subcutaneous solution = 30 units, Subcutaneous Infusion, Daily in AM, 0 Refills, Maintenance, 12/10/20 16:19:00 EDT, Partial fill upon patient request if the prescription is for a schedule II opioid drug. Start Date: 12/10/20 Status: Orderedlevothyroxine 0.025 mg oral tablet 2 [...] II opioid drug. Start Date: 12/10/20 Status: Orderedlosartan 25 mg oral tablet 1 tablet = 25 mg, By Mouth, Daily, # 30 tablet, 0 Refills, Maintenance, 12/10/20 16:18:00 EDT, Tablet, Partial fill upon patient request if the prescription is for a schedule II opioid drug. Start Date: 12/10/20 Status: Orderedmetoclopramide 10 mg oral tablet 1 tablet = 10 mg, By Mouth, Every 6 hours, 0 Refills, Maintenance, 12/10/20 16:18:00 EDT, Partial fill upon patient request if the prescription is for a schedule II opioid drug. Start Date: 12/10/20 Status: Orderedomeprazole 20 mg oral enteric coated capsule 1 capsule = 20 mg, By Mouth, Daily, # 30 capsule, 11 Refills, Maintenance, 09/10/14 16:36:19, 1 capsule By Mouth Daily,x30 days Start Date: 09/10/14 Stop Date: 09/05/15 Status: OrderedPen [place], 31 G x 5 mm BD Ultra Fine III See Instructions, # 200 each, Refills 5, Tot. Refills 5, Maintenance, Use to inject insulin 4 times daily. E10.65, 07/29/20 20:20:00 EST, Compound, 160, cm, 04/05/20 7:27:00 EDT, Height, 79.8, kg, 04/04/20 19:02:00 EDT, Dry Weight Start Date: 07/29/20 Stop Date: 01/25/21 Status: Orderedtacrolimus 1 mg oral capsule 3 capsule = 3 mg, By Mouth, Every 12 hours, 0 Refills, Maintenance, 12/10/20 16:23:00 EDT, Partial fill upon patient request if the prescription is for a schedule II opioid drug. Start Date: 12/10/20 Status: Orderedtamsulosin 0.4 mg oral capsule 0.4 [...] Secondary hyperparathyroidism of renal Active origin(Confirmed) 1Type [id number] induction Social History Social History Type Response Smoking Status Never smoker entered on: 09/07/14 Sex
--- OUTSIDE RECORDS SUMMARY | 2022-07-03 16:02 | XMS_ITS | Continuity of Care Document ---
:1965 Author Organization [facility] Address [address] [place] [address]- Care Team Providers Name Role Phone Unruly Cornejo MD Primary Care Physician Encounter [facility] Date(s): 11/06/20 - 12/19/20 [facility] [address] [place] [address] Attending Physician: Dieudonne Chandra MD Admitting Physician: Dieudonne Chandra MD Referring Physician: Unruly Cornejo MD Allergies, [...] (oldterm) 05/27/08 Given 1Early/Late Reason: Med Not [id number] Comment: [id number], Nov Early/Late Reason: Med Not [id number] Note: Given at PCP office Medications albuterol [...] opioid drug. Start Date: 12/10/20 Status: Orderedergocalciferol 03914 iu oral capsule 1 capsule = 50,000 [...] units/mL subcutaneous injection See Instructions, Subcutaneous Infusion, << Sliding Scale Comments >> 100 - 149 8 units Call if less than 100 150 - 199 10 units 200 - 249 12 units 250 - 299 14 units 300 - 349 16 units, # 30 mL, 1 Refills, Maintenance, 07/29/20 20:1... Start Date: 07/29/20 Stop Date: 09/27/20 Status: [...] Date: 09/10/14 Stop Date: 09/05/15 Status: OrderedPen [place], 31 G x 5 mm BD Ultra [...] Secondary hyperparathyroidism of renal Active origin(Confirmed) 1Type [id number] induction Social History Social History Type Response Smoking Status Never smoker entered on: 09/07/14 Sex
--- OUTSIDE RECORDS SUMMARY | 2022-07-03 16:02 | XMS_ITS | Continuity of Care Document ---
:1965 Author Organization [facility] Address [address] [place] [address]- Care Team Providers Name Role Phone Chantal SEVERINO, Unruly Cee Primary Care Physician [phone] Encounter [facility] Date(s): 05/22/19 - 06/01/19 [facility] [address] [place] [address] [facility] Attending Physician: Admjohn, Bhakti Admitting Physician: AdmtrBhakti Referring Physician: Admtr, Ar8 Allergies, Adverse Reactions, Alerts Substance Reaction Severity Status morphine itching Active Dilaudid anaphylaxis Active Benadryl1 itching Active 1itch increased Immunizations Given and Recorded Vaccine Date Status Refusal Reason influenza virus vaccine, live1 04/18/14 Given influenza virus vaccine, inactivated2 03/14/09 Given Pneumococcal Vaccine (oldterm) 05/27/08 Given 1Admin Note: Given at PCP [id number] Comment: [id number], 30 VALE 10 Medications acetaminophen-HYDROcodone 325 mg-5 [...] 04/28/12 9:29:18 Start Date: 04/28/12 Status: Orderedergocalciferol 20941 iu oral capsule 1 capsule = 50,000 International_Units, By Mouth, Every week, # 5 capsule, 5 Refills, Maintenance, 12/12/14 11:30:10, 1 capsule By Mouth Every week,x30 days Start Date: 12/12/14 Stop Date: 06/10/15 Status: Orderedergocalciferol 91511 iu oral capsule 1 capsule = 50,000 [...] 15 mL, 11 Refills,Maintenance, 06/29/18 15:40:50 EST, Uzbek Start Date: 06/29/18 Stop Date: 07/29/18 Status: [...] Date: 09/10/14 Stop Date: 09/05/15 Status: OrderedPen [place], 31 G x 5 mm BD Ultra [...] Secondary hyperparathyroidism of renal Active origin(Confirmed) 1Type [id number] induction Social History Social History Type Response Smoking Status Never smoker entered on: 09/07/14 Sex
--- OUTSIDE RECORDS SUMMARY | 2022-07-03 16:02 | XMS_ITS | Continuity of Care Document ---
:1965 Author Organization [facility] Address [address] [place] [address]- Care Team Providers Name Role Phone Valerio SEVERINO, Zoraida Primary Care Physician En[place] [facility] Date(s): 05/04/22 - 06/03/22 [facility] [address] [place] [address] Attending Physician: Bhakti Elam Admitting Physician: AdmBhakti lopez Referring Physician: Admtr, Ar8 Allergies, Adverse Reactions, Alerts Substance Reaction Severity Status morphine itching Active Dilaudid anaphylaxis Active Benadryl1 itching Active 1itch increased Immunizations Given and Recorded Vaccine Date Status Refusal Reason influenza virus vaccine, inactivated 05/06/22 Given influenza virus vaccine, inactivated1 04/05/20 Given influenza [...] (Td) 11/18/01 Recorded 1Early/Late Reason: Med Not [id number] Comment: [id number], 30 Nov Early/Late Reason: Med Not [id number] Note: Given at PCP office Medications acetaminophen 500 mg oral tablet 1 [...] Every 8 hours Start Date: 12/10/20 Status: OrderedamLODIPine 10 mg oral tablet 1 tablet = 10 mg, By Mouth, Daily, Take instead of the 5mg tablets for blood pressure, # 30 tablet, 2 Refills, Maintenance, 01/06/22 9:53:00 EDT, Tablet, [facility], Partial fill upon patient request if the prescription is for a s... Start Date: 01/06/22 Status: Orderedaspirin 81 mg oral tablet 1 [...] opioid drug. Start Date: 12/10/20 Status: Orderedergocalciferol 87255 iu oral capsule 1 capsule = 50,000 International_Units, By Mouth, Every week, # 5 capsule, 5 Refills, Maintenance, 12/12/14 11:30:10, 1 capsule By Mouth Every week,x30 days Start Date: 12/12/14 Stop Date: 06/10/15 Status: Orderedfamotidine 40 mg oral tablet 1 tablet = 40 mg, By Mouth, Daily at bedtime, # 30 tablet, 0 Refills, Maintenance, 12/31/21 17:37:00EDT, Tablet, Partial fill upon patient request if the prescription is for a schedule II opioid drug. Start Date: 12/31/21 Status: Orderedgabapentin 100 mg oral capsule TAKE ONE CAPSULE AT BEDTIME Start Date: 12/31/21 Status: Orderedgabapentin 100 mg oral capsule 100 mg, 1, capsule, By Mouth, 3 times a day, Refills 0, Maintenance, 12/13/20 11:08:00 EDT, Partial fill upon patient request if the prescription is for a schedule II opioid drug. Start Date: 12/13/20 Status: OrderedInsulin Aspart FlexPen 100 units/mL injectable solution = 10 units, Subcutaneous Injection, 3 times a day before meals, INJECT 9 UNITS SUBCUTANEOUSLY WITH BREAKFAST, 9 UNITS SUBCUTANEOUSLY WITH LUNCH AND 7 UNITS SUBCUTANEOUSLY WITH DINNER Start Date: 12/31/21 Status: OrderedLantus Inj = 35 units, Subcutaneous Injection, Daily at bedtime, 0 Refills, Maintenance, 05/11/22 14:02:00 EST,Injection, Partial fill upon patient request if the prescription is for a schedule II opioid drug. Start Date: 05/11/22 Status: Orderedlevothyroxine 0.025 mg oral tablet 2 [...] II opioid drug. Start Date: 12/10/20 Status: Orderedmupirocin 2% topical ointment 1 application, Topically, 3 times a day, # 15 Gm, 0 Refills, Maintenance, 12/31/21 17:36:00 EDT, Ointment, Partial fill upon patient request if the prescription is for a schedule II opioid drug. Start Date: 12/31/21 Status: OrderedNIFEdipine (Eqv-Adalat CC) 30 mg oral tablet, extended release 1 tablet = 30 mg, By Mouth, Daily, # 30 tablet, 0 Refills, Maintenance, 03/20/21 13:35:00 EDT, ER Tablet, [facility], Partial fill upon patient request if the prescription is for a schedule II opioid drug., 160, cm, 03/20/21 8:11:0... Start Date: 03/20/21 Stop Date: 04/19/21 Status: Orderedpantoprazole 40 mg oral delayed release tablet 1 tablet = 40 mg, By Mouth, 2 times a day, # 60 tablet, 0 Refills, Maintenance, 12/31/21 17:36:00 EDT, CR Tablet Start Date: 12/31/21 Status: OrderedPEG-3350 with Electrolytes (Eqv-NuLYTELY) oral powder for reconstitution See Instructions, as directed, # 1 each, 0 Refills, Maintenance, 04/24/22 14:42:00 EDT, [facility], ok to sub for any gallon prep, as directed, 160, cm, 04/24/22 13:47:00 EDT, Height, 76.2, kg, 01/13/22 14:47:00 EDT, Dry Weight Start Date: 04/24/22 Status: OrderedpredniSONE 5 mg oral tablet 1 tablet = 5 mg, By Mouth, Daily, 0 Refills, Maintenance, 05/11/22 14:02:00 EST, Tablet, Partial fill upon patient request if the prescription is for a schedule II opioid drug. Start Date: 05/11/22 Status: Orderedtacrolimus 1 mg oral capsule 2 capsule = 2 mg, By Mouth, Every 12 hours, Take 1 capsule everyday in the morning and 2 capsules everyday in the evening Start Date: 12/31/21 Status: Orderedtamsulosin 0.4 mg oral capsule 0.4 [...] opioid drug. Start Date: 12/10/20 Status: OrderedtraZODone 50 mg oral tablet 75 mg, 1.5, tablet, By Mouth, Daily at bedtime, # 30 tablet, Refills 0, Maintenance, 05/11/22 14:04:00 EST, Partial fill upon patient request if the prescription is for a schedule II opioid drug. Start Date: 05/11/22 Status: OrderedVitamin D3 50,000 intl units oral capsule 1 capsule = 1,250 mcg, By Mouth, Every week, # 12 capsule, 0 Refills, Maintenance, 12/31/21 17:37:00EDT, Capsule, Partial fill upon patient request if the prescription is for a schedule II opioid drug. 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 HYPERTENSION Confirmed Active Diabetic foot infection Confirmed Active Secondary Confirmed Active hyperparathyroidism of renal origin 1Type [id number] induction Social History Social History Type Response Smoking Status Never smoker entered on: 09/07/14 Sex Patient Care team information Care Team PersonnelName: Gokul ESPAÑA, Yady Cee Position: [facility] RN Member Role: Primary Care Nurse Name: Aidee Cole RN Position: [facility] RN Member Role: Primary Care Nurse Name: Suze Villafuerte NP Position: [facility] Associate Professional Member Role: Primary Care Nurse Address: Address: [address] [place] [address]- [place] Name: Neetu Frost Position: [facility] PCO RN Member Role: Primary Care Nurse Name: Migel Cruz RN Position: [facility] RN Member Role: Primary Care Nurse Name: Cristina Spence Position: [facility] RN Member Role: Primary Care Nurse Name: Odin Rodriguez DO Position: [facility] Renal MD Member Role: Lifetime Consulting Physician Address: Address: [address] [place], [place] [address] [place] [address]- [place] Name: Frida Blanco RN Position: [facility] RN Member Role: Primary Care Nurse Name: Nik Esposito Position: [facility] Associate Professional Member Role: Lifetime Consulting Provider Address: Address: [address] [place] [address]- Name: Jacoby Sood MD Position: [facility] Renal MD Member Role: Lifetime Consulting Physician Address: Address: [address] [place] [address] [address] [facility] [place] [address]- Name: Ramonita Bardales RN Position: [facility] RN Member Role: Primary Care Nurse Name: Cony Alberts RN Position: [facility] SN RN Member Role: Primary Care Nurse Name: Zoraida Luo MD Position: Reference Physician Member Role: PCP Address: Address: [address] [place] [address]- [place] Name: Kaylan Barker RN Position: [facility] Onco RN Member Role: Primary Care Nurse Name: Meghann Mccracken RN Position: [facility] Director Internal Control Member Role: Primary Care Nurse Name: Franc Jeong RN Position: [facility] SN RN Member Role: Primary Care Nurse Care Team Related PersonsName: VÍCTOR CHUA Address: [address] [place] [address] Name: WALKER CHUA Address: [place] [address]
--- OUTSIDE RECORDS SUMMARY | 2022-07-03 16:02 | XMS_ITS | Continuity of Care Document ---
:1965 Author Organization [facility] Address [address] [place] [address]- Care Team Providers Name Role Phone Unruly Cornejo MD Primary Care Physician [phone] [place] [facility] [place] Date(s): 06/06/19 - 07/30/19 [facility] [address] [place] [address]- [facility] Attending Physician: Esperanza Khalil MD Admitting Physician: [...] 05/27/08 Given 1Admin Note: Given at PCP [id number] Comment: [id number], 30 VALE 10 Medications acetaminophen-HYDROcodone 325 mg-5 [...] 04/28/12 9:29:18 Start Date: 04/28/12 Status: Orderedergocalciferol 39856 iu oral capsule 1 capsule = 50,000 International_Units, By Mouth, Every week, # 5 capsule, 5 Refills, Maintenance, 12/12/14 11:30:10, 1 capsule By Mouth Every week,x30 days Start Date: 12/12/14 Stop Date: 06/10/15 Status: Orderedergocalciferol 91246 iu oral capsule 1 capsule = 50,000 [...] mL, 5 Refills, Maintenance, 06/29/19 15:21:00 EST, [facility] - , Micronesian, 159, cm, 06/29/19 14:55:00 EST, Height Start [...] 5 Refills, Maintenance, 06/29/19 15:20:00 EST, Solution, [facility] - , increased, 159, cm, 06/29/19 [...] Date: 09/10/14 Stop Date: 09/05/15 Status: OrderedPen [place], 31 G x 5 mm BD Ultra [...] Secondary hyperparathyroidism of renal Active origin(Confirmed) 1Type [id number] induction Social History Social History Type Response Smoking Status Never smoker entered on: 09/07/14 Sex
--- OUTSIDE RECORDS SUMMARY | 2022-07-03 16:02 | XMS_ITS | Continuity of Care Document ---
:1965 Author Organization [facility] Address [address] [place] [address]- Care Team Providers Name Role Phone Zoraida Luo MD Primary Care Physician Encounter [facility] [place] Date(s): 04/24/22 - 05/24/22 [facility] [address] [place] [address]- Attending Physician: Bhakti Elam Admitting Physician: Bhakti Elam Referring Physician: Bhakti Elam Allergies, Adverse Reactions, Alerts [...] (Td) 11/18/01 Recorded 1Early/Late Reason: Med Not [id number] Comment: [id number], Nov Early/Late Reason: Med Not [id number] Note: Given at PCP office Medications acetaminophen [...] 2 Refills, Maintenance, 01/06/22 9:53:00 EDT, Tablet, [facility], Partial fill upon patient request [...] opioid drug. Start Date: 12/10/20 Status: Orderedergocalciferol 09684 iu oral capsule 1 capsule = 50,000 [...] Refills, Maintenance, 03/20/21 13:35:00 EDT, ER Tablet, [facility], Partial fill upon patient request [...] each, 0 Refills, Maintenance, 04/24/22 14:42:00 EDT, [facility], ok to sub for any [...] Confirmed Active hyperparathyroidism of renal origin 1Type [id number] induction Social History Social History Type Response Smoking Status Never smoker entered on: 09/07/14 Sex Patient Care team information Care Team PersonnelName: Gokul ESPAÑA, Yady J Position: [facility] RN Member Role: Primary Care Nurse Name: Aidee Cole RN Position: [facility] RN Member Role: Primary Care Nurse Name: Suze Villafuerte NP Position: [facility] Associate Professional Member Role: Primary Care Nurse Address: Address: [address] [place] [address]- [place] Name: Neetu Frost Position: [facility] PCO RN Member Role: Primary Care Nurse Name: Migel Cruz RN Position: [facility] RN Member Role: Primary Care Nurse Name: Cristina Spence Position: [facility] RN Member Role: Primary Care Nurse Name: Odin Rodriguez DO Position: [facility] Renal MD Member Role: Lifetime Consulting Physician Address: Address: [address] [place] [address] [address] [facility] [place] [address]- [place] Name: Frida Blanco RN Position: [facility] RN Member Role: Primary Care Nurse Name: Nik Esposito Position: [facility] Associate Professional Member Role: Lifetime Consulting Provider Address: Address: [address] [place] [address]- [place] Name: Jacoby Sood MD Position: [facility] Renal MD Member Role: Lifetime Consulting Physician Address: Address: [address] [place] [address] [address] [facility] [place] [address]- [place] Name: Ramonita Bardales RN Position: [facility] RN Member Role: Primary Care Nurse Name: Cony Alberts RN Position: [facility] SN RN Member Role: Primary Care Nurse Name: Zoraida Luo MD Position: Reference Physician Member Role: PCP Address: Address: [address] [place] [address]- [place] Name: Kaylan Barker RN Position: [facility] Onco RN Member Role: Primary Care Nurse Name: Meghann Mccracken RN Position: [facility] Catalytic Case Operator Member Role: Primary Care Nurse Name: Franc Jeong RN Position: [facility] SN RN Member Role: Primary Care Nurse Care Team Related PersonsName: VÍCTOR CHUA Address: home [address] [place] [address] Name: WALKER CHUA [place] [address]
--- OUTSIDE RECORDS SUMMARY | 2022-07-03 16:02 | XMS_ITS | Continuity of Care Document ---
:1965 Author Organization [facility] Address [address] [place] [id number] Care Team Providers Name Role Phone Valerio SEVERINO, Zoraida Primary Care Physician Encounter [facility] Date(s): 05/05/22 - 05/12/[address] [id number] Encounter Diagnosis Cellulitis of face (Final) - 05/05/22 Uncontrolled diabetes mellitus with hyperglycemia (Final) - 05/05/22 Discharge Disposition: A-Transfer VNA/Home Health Attending Physician: Fly SEVERINO, [facility] Admitting Physician: Antonieta Chase MD Referring Physician: Not on Staff, Referring [...] (Td) 11/18/01 Recorded 1Early/Late Reason: Med Not [id number] Comment: [id number], Nov Early/Late Reason: Med Not [id number] Note: Given at PCP office Medications acetaminophen [...] 2 Refills, Maintenance, 01/06/22 9:53:00 EDT, Tablet, [facility], Partial fill upon patient [...] II opioid drug. Start Date: 12/10/20 Status: Orderedcephalexin monohydrate 500 mg oral capsule 1 capsule = 500 mg, By Mouth, 3 times a day, for 6 days, start on 05/12, # 18 capsule, 0 Refills, Acute 05/18/22 11:58:00 EST, 05/12/22 11:58:00 EST, Capsule, [facility], Partial fill upon patient request if the prescription is for a korin... Start Date: 05/12/22 Stop Date: 05/18/22 Status: Orderedduloxetine 20 mg oral enteric coated capsule 1 capsule = 20 mg, By Mouth, Daily, 0 Refills, Maintenance, 12/10/20 16:18:00 EDT, Partial fill uponpatient request if the prescription is for a schedule II opioid drug. Start Date: 12/10/20 Status: Orderedergocalciferol 96406 iu oral capsule 1 capsule = 50,000 [...] II opioid drug. Start Date: 12/13/20 Status: Orderedgabapentin 100 mg oral capsule 100 mg, Capsule, By Mouth, 05/11/22 21:00:00 EST Start Date: 05/11/22 Stop Date: 05/11/22 Status: CompletedInsulin Aspart FlexPen 100 units/mL injectable solution = [...] Refills, Maintenance, 03/20/21 13:35:00 EDT, ER Tablet, [facility], Partial fill upon patient request [...] each, 0 Refills, Maintenance, 04/24/22 14:42:00 EDT, [facility], ok to sub for any [...] 12/13/20 Status: OrderedtraMADol 50 mg oral tablet 50 mg, Tablet, By Mouth, Every 12 hours, PRN for Pain , Moderate, Routine, 05/05/22 22:56:00 EST Start Date: 05/05/22 Stop Date: 05/12/22 Status: DiscontinuedtraMADol 50 mg oral tablet 1 tablet = [...] Confirmed Active hyperparathyroidism of renal origin 1Type [id number] induction Results Orders for Microbiology Reports Name Date Wound Deep Culture w/ Gram Smear (Deep Wound Culture w / Gram Smear) 05/07/22 Blood Culture 05/05/22 Blood Culture #2 05/05/22 Microbiology Reports TEST:Deep Wound Culture STATUS:Auth (Verified) BODY SITE: SOURCE:SWAB1 COLLECTED DATE/TIME:05/07/22 11:52 AMDeep Wound Culture SPECIMEN DESCRIPTION : SWAB CHEEK RT SPECIAL REQUESTS : NONE GRAM STAIN : 4+ POLYMORPHONUCLEAR LEUKOCYTES 2+ GRAM POSITIVE COCCI CULTURE : 3+ STAPHYLOCOCCUS AUREUS. This isolate was identified using Maldi-TOF system These AST results were performed on the [employer]ah[employer] ID and AST system REPORT STATUS : FINAL 05/09/2022 ORGANISM 3+ STAPHYLOCOCCUS AUREUS. This isolate was identified using Maldi-TOF system These AST results were performed on the [employer] ID and AST system METHOD MIN. INHIB. CONC. (MCG/ML) CIPROFLOXACIN SUSCEPTIBLE CLINDAMYCIN SUSCEPTIBLE ERYTHROMYCIN SUSCEPTIBLE LEVOFLOXACIN SUSCEPTIBLE OXACILLIN SUSCEPTIBLE PENICILLIN RESISTANT RIFAMPIN SUSCEPTIBLE RIFAMPIN RIFAMPIN SHOULD NOT BE USED ALONE FOR ANTIMICROBIAL RIFAMPIN THERAPY. TETRACYCLINE SUSCEPTIBLE TRIMETH/SULFAMETHOX SUSCEPTIBLE VANCOMYCIN SUSCEPTIBLETEST:Blood Culture STATUS:Auth (Verified) BODY SITE: SOURCE:Blood COLLECTED DATE/TIME:05/05/22 10:27 PMBlood Culture SPECIMEN DESCRIPTION : BLOOD R HAND SPECIAL REQUESTS : NONE CULTURE : NO GROWTH 5 DAYS. REPORT STATUS : FINAL 05/11/2022TEST:Blood Culture, Second Order STATUS:Auth (Verified) BODY SITE: SOURCE:Blood COLLECTED DATE/TIME:05/05/22 10:27 PMBlood Culture, Second Order SPECIMEN DESCRIPTION : BLOOD R ARM SPECIAL REQUESTS : NONE CULTURE : NO GROWTH 5 DAYS. REPORT STATUS : FINAL 2Radiology Reports Exam Date Time Procedure Performing Provider Status 05/05/22 3:[address] Soft Tissue Neck W/ Frida Mcmillan; [facility] (Verified) Contrast Notes:(CT Soft Tissue Neck W/ Contrast) Reason For Exam: Abscess/Inflammation RESULT: CT Soft Tissue Neck W/ Contrast CT Soft Tissue Neck W/ Contrast INDICATION/CLINICAL QUESTION: Worsening right facial swelling, concern for abscess. TECHNIQUE: Spiral CT neck with IV contrast formatted in 3 planes. 100 cc of Omnipaque 300 was administered intravenously. Weight-based protocol using automatic tube modulation was used to optimize exposure parameters. CTDIvol Body: 12.70 mGy, DLP Body: 374 mGy*cm. COMPARISON: CT head 02/14/2015. FINDINGS: Chyron Operator View Findings, Lines and Tubes: None. Lower intracranial contents: No abnormalities are seen involving the portions of brain and extra-axial spaces included on the exam. Facial soft tissues: Inflammation and soft tissue edema with mild skin thickening in the region of the right maxilla and zygoma. There is a 1.1 x 3.6 x 1.1 cm ill-defined density in the soft tissue theright cheek abutting the right masseter muscle (image 19 series 201, image 22 series 203). There wasalso prominent soft tissue in this region on CT head and CT cervical spine dated 02/14/2015, but it appears more pronounced and is denser than on that exam The adjacent buccal space appears normal. Cervical Lymph Nodes: Normal in size. Paranasal Sinuses: The portions included on the study are clear. Mucosa and parapharyngeal spaces: Mild mucosal thickening of the paranasal sinuses. Polyps/mucous retention cysts in the left maxillary sinus. The right palatine tonsil appears moderately enlarged witheffacement of the right side of the oropharynx . Vocal Cords: Normal. Salivary Glands: Normal. Vascular Structures: Grossly unremarkable. Thyroid Gland: Surgical clips posterior to the bilateral thyroid lobes. Upper mediastinum and lung apices: Normal. Bones: No focal abnormalities IMPRESSION: Mild skin thickening, with inflammation and soft tissue edema in the region of the right maxilla andzygoma, which may represent focal cellulitis. 3.6 cm soft tissue density in the soft tissue of the right cheek abutting the right masseter muscle,which may represent accessory parotid gland tissue, however, it appears denser and more pronounced than on an older exam and focal superimposed inflammatory changes cannot be completely excluded. Follow-up imaging for persistence or resolution is recommended. Moderately enlarged right palatine tonsil causing effacement of the right side of the oropharynx. Nodrainable abscess or fluid collection. I have personally reviewed the images and I agree with this report. WSN: [id number] Ordering Physician: Mulugeta Dyer Dictated By: Ramon Smith MD Dictated Date/Time: 05/05/22 4:36 pm Reviewed By: Ledy Davidson MD Signed By: Ledy Davidson MD Signed Date/Time: 05/05/22 4:41 pm Transcribed By: MADYSON Transcribed Date/Time: 05/05/22 4:27 pm Vital Signs Most recent to oldest 1 2 3 [Reference Range]: Height 160 cm 160 cm 160 cm (05/12/22 9:37 AM) (05/12/22 6:01 AM) (05/11/22 9:03 PM) Weight 76 kg 76 kg (05/05/22 8:31 PM) (05/05/22 6:57 PM) Oxygen Saturation [94-100 98 % 99 % 97 % %] (05/12/22 6:01 AM) (05/11/22 9:01 PM) (05/11/22 1:31 PM) Pulse Rate [55-90 bpm] 85 bpm 67 bpm 72 bpm (05/12/22 9:37 AM) (05/12/22 6:01 AM) (05/11/22 9:01 PM) Body Mass Index [18.5-24.99 29.69 kg/m2 kg/m2] *H* (05/05/22 8:31 PM) Blood Pressure 168/108 mm Hg 153/90 mm Hg 163/99 mm Hg [90-138/55-84 mm Hg] *H* *H* *H* (05/12/22 9:37 AM) (05/12/22 6:01 AM) (05/11/22 9:01 PM) Respiratory Rate [16-30 18 br/min 18 br/min 18 br/mi n br/min] (05/12/22 6:01 AM) (05/11/22 9:33 PM) (05/11/22 9:33 PM) Temperature [96.8-100.4 98.1 DegF 97.5 DegF 98.3 Deg F DegF] (05/12/22 6:01 AM) (05/11/22 9:01 PM) (05/11/22 1:31 PM) Liters per Minute 0 L/min (05/05/22 12:08 PM) Mode of Delivery (Oxygen) Room air Room air Room a ir (05/12/22 6:01 AM) (05/11/22 9:01 PM) (05/11/22 1:31 PM) Blood pressure sites Arm, right Arm, right Arm, right (05/12/22 9:37 AM) (05/12/22 6:01 AM) (05/11/22 9:03 PM) Temperature Route Oral Oral Oral (05/12/22 6:01 AM) (05/11/22 9:01 PM) (05/11/22 1:31 PM) Dry Weight 76.2 kg (05/05/22 8:31 PM) Weight Obtained Via Bed scale (05/05/22 6:57 PM) Social History Social History Type Response Smoking Status Never smoker entered on: 09/07/14 Sex Consult note Aidee Clayton MD: MODIFY, PERFORM Event Display: Consult Authored Date: Patient: ??TITO MADDOX ? Age:??56 Years?Sex:??Male?:??1965?? Chief Complaint/Reason for Consult R facial swelling History of Present Illness Tito Maddox is a 56yo male w/ PMH ESRD 2/2 diabetic neuropathy s/p donor kidney transplant in 2013 w/ chronic immunosuppresion w/ tacrolimus and prednisone, T2IDDM, HTN, HLD, asthma who presented to the ED on 05/05 for a two day history of worsening R facial swelling, erythema, and pain. The patient reports that he developed a pustule in the same area two days prior, with rapidly progressive swelling and induration. He also started to develop pain with eating, prompting him to present to the ED. CT soft tissue showed an ill- defined area (1.1 x 3.6 x 1.1 cm) of inflammation and increased density of the right cheek, but no drainable fluid collections. WBC upon presentation was 15.6. The patient was admitted to the hospital and started on IV vanc/zosyn for treatment of facial cellulitis. ?? Plastic surgery was consulted today for worsening erythema and swelling of the right cheek. The patient reports pain over the right cheek that is worse with eating. He denies drainage from the pustule on his cheek. He denies any facial numbness/tingling and denies any pain w/ extra-ocular eye movements or difficulty breathing. He also denies any fevers/chills, N/V. Review of Systems As per above Physical Exam Vitals & Measurements T:??98.3?F ?? WV:??84?? RR:??19?? BP:??141/77?? SpO2:??98%?? HT:??160??cm?? WT:??76??kg?? BMI:??29.69?? General: Alert, in no acute distress Pulm: No increased work of breathing, no audible wheezing Cardio: Palpable peripheral pulses Abdomen: Soft, non-distended MSK: Moves all extremities Skin: WWP Neuro: CN II-XII grossly intact Psych: Normal affect and mood ?? PRS-Focused Exam: Diffuse R cheek swelling, most focally over inferior aspect several cm lateralto oral commissure, focal pustule w/ visible white purulence below surface not easily expressed, several cm of surrounding induration and blanching erythema, exquisite TTP, no intra-oral communication, dentition intact w/out evidence of intra-oral infection, PERRL, EOMI, CN V1-V3 and VII intact bilaterally Assessment/Plan Tito Maddox is a 56yo male w/ immunosuppression s/p kidney transplantation and poorly controlled insulin-dependent T2DM who presented to the ED on 05/05 for worsening R cheek swelling and pain after developing a pustule at that site two days prior. CT soft tissue showed an ill-defined area of increased density and inflammation of the R cheek but no drainable fluid collections. The patient was admitted for treatment of facial cellulitis w/ IV vanc/zosyn. However, he has had progressively worsening Rcheek swelling, for which plastic surgery was consulted. On exam, he has a visible pustule over the inferior aspect of the check w/ surrounding induration, c/w a superficial cheek abscess. ?? Recommendations: -Plastic surgery will perform a bedside incision and drainage today -Follow-up wound cultures once collected (although pt has been on IV abx for multiple days and may not speciate) -IV abx per primary team, recommend coverage for MRSA give hospitalization/surgical hx -Head of bed elevation -Warm moist compresses to R cheek TID after I&D -Twice daily irrigation and wick packing changes (AM by plastic surgery, PM by RN) ?? The plan was discussed with attending, Dr. Shin. ?? [place] [phone] with any questions. Problem List/Past Medical History Ongoing Acid reflux Chronic diarrhea CKD (chronic kidney disease) -donor kidney transplant DIABETES MELLITUS Diabetes mellitus Diabetic foot infection End stage renal disease GERD (gastroesophageal reflux disease) History of parathyroidectomy Hyperlipidemia HYPERTENSION Hypertension Obese class I Peripheral neuropathy Secondary hyperparathyroidism of renal origin Historical No qualifying data Procedure/Surgical History Colonoscopy, flexible, proximal to splenic flexure; with biopsy, single or multiple: 06/01/11 Upper gastrointestinal endoscopy including esophagus, stomach, and either the duodenum and/or jejunum as appropriate; with biopsy, single or multiple: 06/01/11 Thyroid Cholecystectomy Home Medications Acetaminophen: 500 mg = 1 tablet, By Mouth, Every 4 hours, PRN (as needed for fever) Albuterol: 2.5 mg = 3 mL, Neb, Every 8 hours Albuterol: 2.5 mg = 3 mL, Inhalation, Every 6 hours, PRN (for wheezing) Amlodipine: 10 mg = 1 tablet, By Mouth, Daily, Take instead of the 5mg tablets for blood pressure Aspirin: 81 mg = 1 tablet, By Mouth, Daily Aspirin: 81 mg = 1 tablet, By Mouth, Daily Atorvastatin: 10 mg = 1 tablet, By Mouth, Daily Atorvastatin: 10 mg = 1 tablet, By Mouth, Daily Calcitriol: 0.5 mcg = 1 capsule, By Mouth, Daily Calcitriol: 0.5 mcg = 1 capsule, By Mouth, Daily Cholecalciferol: 1,250 mcg = 1 capsule, By Mouth, Every week Duloxetine: 20 mg = 1 capsule, By Mouth, Daily Duloxetine: TAKE 1 CAPSULE BY MOUTH EVERY DAY Durable Medical Equipment (Thoorastyle John 2 sensors): See Instructions, change every 14 days, E 11 Durable Medical Equipment (Freestyle John 2 reader): See Instructions, check BS 5 times daily, E Durable Medical Equipment: See instructions, inject 4 times daily, E Durable Medical Equipment (Off-loading boot (Right)): See Instructions, Right foto off-loading bootDx: Right 5th toe amputation Ergocalciferol: 50,000 International_Units = 1 capsule, By Mouth, Every week Famotidine: 40 mg = 1 tablet, By Mouth, Daily at bedtime Gabapentin: 100 mg = 1 capsule, By Mouth, 3 times a day Gabapentin: TAKE ONE CAPSULE AT BEDTIME Insulin Aspart: 10 units, Subcutaneous Injection, 3 times a day before meals, INJECT 9 UNITS SUBCUTANEOUSLY WITH BREAKFAST, 9 UNITS SUBCUTANEOUSLY WITH LUNCH AND 7 UNITS SUBCUTANEOUSLY WITH DINNER Insulin Glargine: See Instructions, Subcutaneous Injection, INject 44 units once daily, E 11 Insulin Glargine: INJECT 44 UNITS SUBCUTANEOUSLY EVERY DAY Insulin Lispro: See Instructions, INJECT 10 units SUBCUTANEOUSLY tid with meals. MAX DAILY DOSE = 30 UNITS Levothyroxine: 50 mcg = 2 tablet, By Mouth, Daily Lidocaine Topical: 1 patch, Topically, Daily, PRN (Pain , Mild), remove after 12 hours Loperamide: 2 mg = 1 capsule, By Mouth, 3 times a day Metoclopramide: 10 mg = 1 tablet, By Mouth, Every 6 hours Metoclopramide: TAKE 1 TABLET BY MOUTH AT BEDTIME Miscellaneous Rx (Easy Touch 31 gauge x 3/16 needle): See Instructions, USE FOUR TIMES DAILY Miscellaneous Rx (OFFLOADING SHOE): See Instructions, use as directed DX: right fifth toe amputation Mupirocin Topical: 1 application, Topically, 3 times a day NIFEdipine: 30 mg = 1 tablet, By Mouth, Daily Omeprazole: 20 mg = 1 capsule, By Mouth, Daily Pantoprazole: 40 mg = 1 tablet, By Mouth, 2 times a day PEG Electrolyte Solution: See Instructions, as directed PredniSONE PredniSONE: 10 mg = 1 tablet, By Mouth, Daily Tacrolimus: 3 mg = 3 capsule, By Mouth, Daily before breakfast Tacrolimus: 2 mg = 2 capsule, By Mouth, Daily at bedtime Tacrolimus: 2 mg = 2 capsule, By Mouth, Every 12 hours, Take 1 capsule everyday in the morning and 2 capsules everyday in the evening Tamsulosin: 0.4 mg = 1 capsule, By Mouth, Daily at bedtime Tramadol: 50 mg = 1 tablet, By Mouth, Every 12 hours, PRN (as needed for pain) Trazodone: 100 mg = 1 tablet, By Mouth, Daily at bedtime Trazodone: 25 mg = 0.5 tablet, By Mouth, Daily at bedtime Allergies Benadryl??(itching) Dilaudid??(anaphylaxis) morphine??(itching) Social History Tobacco Never smoker, 09/07/2014 Family History No family history recorded. Lab Results Labs Last 24 Hours BLOOD COUNT & DIFF ? Event Name?? Event Result?? Date/Time?? WBC 11.9 k/mm3??High 05/07/22 02:14:00 RBC 4.5 m/mm3??Low 05/07/22 02:14:00 Hgb 12.5 Gm/dL??Low 05/07/22 02:14:00 Hct 38.1 %??Low 05/07/22 02:14:00 MCV 84.7 femtoliters 05/07/22 02:14:00 MCH 27.8 pg 05/07/22 02:14:00 MCHC 32.8 g/dL??Low 05/07/22 02:14:00 Platelet Count 217 k/mm3 05/07/22 02:14:00 MPV 11.2 femtoliters 05/07/22 02:14:00 Nucleated RBC (Automated) 0 #/100 WBC'S 05/07/22 02:14:00 ? CHEM GENERAL ? Event Name?? Event Result?? Date/Time?? Sodium 128 mmol/L??Low 05/07/22 02:14:00 Chloride 96 mmol/L??Low 05/07/22 02:14:00 Bicarbonate Level 21 mmol/L??Low 05/07/22 02:14:00 Anion Gap 05/07/22 02:14:00 Glucose Level 381 mg/dL??High 05/07/22 02:14:00 BUN 27 mg/dL??High 05/07/22 02:14:00 Creatinine-Blood 2.3 mg/dL??High 05/07/22 02:14:00 ? Admission evaluation note Zenia Sharma NP: PERFORM, MODIFY, MODIFY, MODIFY, MODIFY, MODIFY Event Display: Admission Note Authored Date: Patient: ??TITO MADDOX ? Age:??56 Years?Sex:??Male?:??1965?? Chief Complaint/Reason for Consultation worsening right facial swelling and pain for 2 days History of Present Illness Mr. Maddox is a 56-year-old Romanian-speaking male with history of end-stage renal disease secondary to diabetic nephropathy, s/p donor renal transplant in 2013??chronically on??tacrolimus and prednisone??, complicated by CKD stage III??of allograft, poorly controlled T2DM, hypertension, hype rlipidemia, asthma, right fifth toe osteomyelitis status post toe amputation 01/09, presenting with complaints of right facial swelling and pain for 2 days. Two??days prior to presentation, patient reports seeing pimple-like lesion on his right cheek??followed by quickly progressing??swelling of the right face associated with worsening pain.?? He reports subjective fever today and discomfort chewing and swallowing due to pain.?? During initial evaluation with assistance of metal expediter, patient denies difficulty breathing or managing secretions.?? Denies any other infectious symptoms. ?? ED course: Vital signs: Afebrile, mildly tachycardic in the 90s, normal respiratory rate, normotensive with blood pressures in the 130s systolic, oxygen saturations 100% on room air Laboratories:?? Notable for leukocytosis w/ WBC of 15.8??and??elevated absolute neutrophil count of14.4.?? Stable hemoglobin and hematocrit, sodium level of 132, blood glucose level of 494, BUN of 30, creatinine of 2.2, COVID PCR negative Radiology: CT soft tissue neck with contrast demonstrating soft tissue edema in the region of the right maxilla concerning for cellulitis and moderately enlarged right palatine tonsil.?? No drainable abscess or fluid collection. Patient has received 1 g of vancomycin IV. Review of Systems Review of systems negative except signs and symptoms mentioned above. Objective Measurements?? Height: 160 cm (05/05/22) Weight: 76 kg (05/05/22) Dry Weight: 76.2 kg (05/05/22) Body Mass Index:??29.69 kg/m2??High (05/05/22) ? Vital Signs?? Temperature: 98.2 DegF (05/05/22 23:04:00) Temperature Route: Oral (05/05/22 23:04:00) Pulse Rate: 81 bpm (05/05/22 23:04:00) Respiratory Rate: 18 br/min (05/05/22 23:26:00) Systolic Blood Pressure:??155 mm Hg??High (05/05/22 23:04:00) Diastolic Blood Pressure:??94 mm Hg??High (05/05/22 23:04:00) Blood pressure sites: Arm, right (05/05/22 23:04:00) Mean Arterial Pressure: 114 mm Hg (05/05/22 23:04:00) Pulse Pressure: 61 mm Hg (05/05/22 23:04:00) Oxygen Saturation: 99 % (05/05/22 23:04:00) Liters per Minute: 0 L/min (05/05/22 12:08:00) Mode of Delivery (Oxygen): Room air (05/05/22 23:04:00) Early Warning Score: 4 (05/05/22 23:28:55) ? Intake/Output? 05/05 11:54 05/05 07:00 05/04 07:00 05/03 07:00 05/02 07:00 ?? 05/05 23:54 05/05 23:54 05/05 06:59 05/04 06:59 05/03 06:59 Intake ?200 ?200 ?0 ?0 ?0 Output ?0 ?0 ?0 ?0 ?0 Net Total ?200 ?200 ?0 ?0 ?0 ? Physical Exam General:??Alert, appears comfortable. Mental Status:??Oriented to person, place and time. Head:??Normocephalic. Eyes:??Pupils are equal, round and reactive to light. Extraocular muscles intact. Ear, Nose and Throat:??Oropharynx clear, swelling of the right the palatine tonsil.?? Trachea midline. Neck:??Supple, Full range of motion. Respiratory:??Clear to auscultation and percussion. No wheezing. Cardiovascular:??Heart sounds normal. No thrills. Regular rate and rhythm, no murmurs. Gastrointestinal:??Abdomen soft, non-tender, non-distended. Normal bowel sounds. Genitourinary:??No costovertebral angle tenderness. Neurologic:??No focal neurological deficits. Moves all extremities spontaneously. Sensation intact bilaterally. Skin:??Diffuse right facial swelling extending to right neck causing cervical adenopathy, area of induration surrounding R cheek papule , overlying erythema, swelling of palatine tonsil.?? Right 5th toe amputation??site appears well healed.?? Musculoskeletal: No gross deformities. Normal range of motion. Lymphatics:??Palpation reveals mild??swelling of cervical nodes. Assessment/Plan Diagnoses Facial cellulitis ??(L03.211) CKD stage??III??(E11.22) Renal transplant, status post ??(Z94.0) ESRD (end stage renal disease) ??(N18.6) History of IBS ??(Z87.19) Hyperlipemia ??(E78.5) Hypertension ??(I10) Asthma ??(J45.909) Uncontrolled diabetes mellitus with hyperglycemia ??(E11.65) ?? Assessment & Plan 56-year-old Romanian-speaking male with history of end-stage renal disease secondary to diabetic nephropathy, s/p donor renal transplant in 2013 chronically on tacrolimus and prednisone , complicated by CKD stage III and allograft, poorly controlled T2 DM, hypertension, hyperlipidemia, right fifth toe osteomyelitis s/p toe amputation 01/09, presenting with complaints of right facial swelling and pain for 2 days, CT??without evidence of??abscess, being admitted for??treatment of cellulitis. ? Facial cellulitis ??(L03.211) p/w/ 2 days of??quickly progressing??R facial??swelling associated with pain??after??appearance of??pimple like??lesion, ? furuncle, today subjective fever and pain swallowing work up shows leukocytosis, CT suggestive of soft tissue infection w/o evidence of abscess or fluidcollection R face??notable for induration surrounding papule, overlying erythema, diffuse right facial swelling extending to right neck, cervical adenopathy, and swelling of palatine tonsil c/o pain with swallowing but no difficulty tolerating liquids soft diet, no evidence of airway compromise ?? Plan: obtain blood cultures x 2 Continue IV??vancomycin renally dosed (most likely staph, pt is diabetic but don't have high suspicion for gram negatives at this time) liquids and dental soft diet as tolerated transition to oral therapy once clinically improved ?? CKD stage III (E11.22) of allograft Renal transplant, status post (Z94.0):?? ESRD (end stage renal disease) ??(N18.6) 2/2 diabetic nephropathy Patient??follows w/??Dr Hansen and Dr Padilla from [facility], on tactrolimus and prednisone?? During most??recently visit on 04/30, tacrolimus level 7.1 baseline creatinine 1.9 - 2.3 range, w/ creat of 2.2 on initial labs ?? Plan: Continue current immunosupressive regimen:??Tacrolimus 2 mg twice daily and prednisone??5 mg daily tacrolimus level ordered for AM consider renal consult if??dose adjustments needed ?? Stable chronic conditions: ?? History of IBS (Z87.19):??Denies??active issues, continue??Loperamide ?? Hyperlipemia (E78.5):??continue atorvastatin 10 mg ?? Hypertension (I10):??Controlled, continue Amlodipine 10 mg ?? Uncontrolled diabetes mellitus with hyperglycemia (E11.65):??initially hyperglycemic, will continuehome dose of lantus, 44 units, at HS and lispro sliding scale ?? Asthma (J45.909):??no clinical sx of exacerbation, PRN albuterol inhaler as needed ? VTE Prophylaxis:??Heparin subq every 8 hours Code Status:??FULL Ongoing Medical Necessity:??IV antibiotics initiated? Histories Allergies Allergies ?(Active and Proposed Allergies Only) morphine? (Severity: Unknown severity, Onset: Unknown) ?Reactions: itching Benadryl? (Severity: Unknown severity, Onset: Unknown) ?Reactions: itching ?Comments: itch increased Dilaudid? (Severity: Unknown severity, Onset: Unknown) ?Reactions: anaphylaxis ? Past Medical History/Problem List Active Problems??(14) Acid reflux CKD (chronic kidney disease) -donor kidney transplant DIABETES MELLITUS Diabetes mellitus Diabetic foot infection End stage renal disease GERD (gastroesophageal reflux disease) History of parathyroidectomy Hyperlipidemia HYPERTENSION Hypertension Peripheral neuropathy Secondary hyperparathyroidism of renal origin ? Past Surgical History Colonoscopy, flexible, proximal to splenic flexure; with biopsy, single or multiple: 06/01/11 Upper gastrointestinal endoscopy including esophagus, stomach, and either the duodenum and/or jejunum as appropriate; with biopsy, single or multiple: 06/01/11 Thyroid Cholecystectomy ? Social History Tobacco: Never smoker Alcohol: Denies past or present use Illicit??substances: Never ? Psychosocial History Does not??work,??disabled ? Family History Mother and father diabetic Father passed from ? cancer complications multiple??siblings have diabetes ? Medications Home Medications Acetaminophen (acetaminophen 500 mg oral tablet)?1?tab(s)?500?Milligram?By Mouth?Every 4 hours?as needed?as needed for fever Albuterol (albuterol 0.083% inhalation solution)?3?Milliliter?2.5?Milligram?Neb?Every 8 hours Albuterol (albuterol 0.083% inhalation solution)?3?Milliliter?2.5?Milligram?Inhalation?Every 6 hours?as needed?for wheezing Amlodipine (amLODIPine 10 mg oral tablet)?1?tab(s)?10?Milligram?By Mouth?Daily?Take instead of the 5mg tablets for blood pressure Aspirin (aspirin 81 mg oral tablet)?1?tab(s)?81?Milligram?By Mouth?Daily Aspirin (Aspirin Low Dose 81 mg oral delayed release tablet)?1?tab(s)?81?Milligram?By Mouth?Daily Atorvastatin (atorvastatin 10 mg oral tablet)?1?tab(s)?10?Milligram?By Mouth?Daily Atorvastatin (atorvastatin 10 mg oral tablet)?1?tab(s)?10?Milligram?By Mouth?Daily Calcitriol (calcitriol 0.5 mcg oral capsule)?1?capsule?0.5?Microgram?By Mouth?Daily Calcitriol (calcitriol 0.5 mcg oral capsule)?1?capsule?0.5?Microgram?By Mouth?Daily Cholecalciferol (Vitamin D3 50,000 intl units oral capsule)?1?capsule?1,250?Microgram?By Mouth?Every week Duloxetine (duloxetine 20 mg oral enteric coated capsule)?1?capsule?20?Milligram?By Mouth?Daily Duloxetine (duloxetine 20 mg oral enteric coated capsule)?TAKE 1 CAPSULE BY MOUTH EVERY DAY Durable Medical Equipment (Freestyle John 2 sensors)?See Instructions?change every 14 days, E 11.65 Durable Medical Equipment (Freestyle John 2 reader)?See Instructions?check BS 5 times daily,E 11.65 Durable Medical Equipment (Pen [place], 32 G x 4 mm BD Ultra Fine III)?See instructions?for 30?Days?inject 4 times daily, E 11.65 Durable Medical Equipment (Off-loading boot (Right))?See Instructions?Right foto off-loading bootDx: Right 5th toe amputation Ergocalciferol (ergocalciferol 08984 iu oral capsule)?1?capsule?50,000?International Unit?By Mouth?Every week?for 30?Days Famotidine (famotidine 40 mg oral tablet)?1?tab(s)?40?Milligram?By Mouth?Daily atbedtime Gabapentin (gabapentin 100 mg oral capsule)?100?Milligram?1?capsule?By Mouth?3 times a day Gabapentin (gabapentin 100 mg oral capsule)?TAKE ONE CAPSULE AT BEDTIME Insulin Aspart (Insulin Aspart FlexPen 100 units/mL injectable solution)?10?unit(s)?Subcutaneous Injection?3 times a day before meals?INJECT 9 UNITS SUBCUTANEOUSLY WITH BREAKFAST, 9 UNITS SUBCUTANEOUSLY WITH LUNCH AND 7 UNITS SUBCUTANEOUSLY WITH DINNER Insulin Glargine (Lantus 100 u/ml subcutaneous solution)?See Instructions?Subcutaneous Injection?for 90?Days?INject 44 units once daily, E 11.65 Insulin Glargine (Lantus Solostar Pen 100 units/mL subcutaneous solution)?INJECT 44 UNITS SUBCUTANEOUSLY EVERY DAY Insulin Lispro (HumaLOG KwikPen 100 units/mL injectable solution)?See Instructions?INJECT 10 units SUBCUTANEOUSLY tid with meals. MAX DAILY DOSE = 30 UNITS Levothyroxine (levothyroxine 0.025 mg oral tablet)?2?tab(s)?50?Microgram?By Mouth?Daily Lidocaine Topical (lidocaine 5% topical film)?1?patch(es)?Topically?Daily?as needed?Pain , Mild?remove after 12 hours Loperamide (loperamide 2 mg oral capsule)?2?Milligram?1?capsule?By Mouth?3 times a day Metoclopramide (metoclopramide 10 mg oral tablet)?1?tab(s)?10?Milligram?By Mouth?Every 6 hours Metoclopramide (metoclopramide 10 mg oral tablet)?TAKE 1 TABLET BY MOUTH AT BEDTIME Miscellaneous Rx (Easy Touch 31 gauge x 3/16 needle)?See Instructions?USE FOUR TIMES DAILY Miscellaneous Rx (OFFLOADING SHOE)?See Instructions?use as directed DX: right fifth toe amputation Mupirocin Topical (mupirocin 2% topical ointment)?1?niraj?Topically?3 times a day NIFEdipine (NIFEdipine (Eqv-Adalat CC) 30 mg oral tablet, extended release)?1?tab(s)?30?Milligram?By Mouth?Daily?for 30?Days Omeprazole (omeprazole 20 mg oral enteric coated capsule)?1?capsule?20?Milligram?By Mouth?Daily?for 30?Days Pantoprazole (pantoprazole 40 mg oral delayed release tablet)?1?tab(s)?40?Milligram?By Mouth?2 times a day PEG Electrolyte Solution (PEG-3350 with Electrolytes (Eqv-NuLYTELY) oral powder for reconstitution)?See Instructions?as directed PredniSONE (predniSONE 10 mg oral tablet)?1?tab(s)?10?Milligram?By Mouth?Daily Tacrolimus (tacrolimus 1 mg oral capsule)?3?capsule?3?Milligram?By Mouth?Daily before breakfast Tacrolimus (tacrolimus 1 mg oral capsule)?2?capsule?2?Milligram?By Mouth?Daily atbedtime Tacrolimus (tacrolimus 1 mg oral capsule)?2?capsule?2?Milligram?By Mouth?Every 12hours?Take 1 capsule everyday in the morning and 2 capsules everyday in the evening Tamsulosin (tamsulosin 0.4 mg oral capsule)?0.4?Milligram?1?capsule?By Mouth?Daily at bedtime Tramadol (traMADol 50 mg oral tablet)?1?tab(s)?50?Milligram?By Mouth?Every 12 hours?as needed?as needed for pain Trazodone (traZODone 100 mg oral tablet)?100?Milligram?1?tablet?By Mouth?Daily atbedtime Trazodone (traZODone 50 mg oral tablet)?25?Milligram?0.5?tablet?By Mouth?Daily atbedtime ? Inpatient Medications Medications (29) Active SCHEDULED: (16) Amlodipine 10 mg Tablet (amLODIPine 10 mg oral tablet) ??10 mg, By Mouth, Daily Aspirin 81 mg EC Tablet (aspirin 81 mg oral delayed release tablet) ??81 mg, By Mouth, Daily Atorvastatin 10 mg Tablet (atorvastatin 10 mg oral tablet) ??10 mg, By Mouth, Daily at bedtime Calcitriol 0.25 mcg Capsule (calcitriol 0.25 mcg oral capsule) ??0.5 mcg, By Mouth, Daily Duloxetine 20 mg Capsule (DULoxetine Capsule) ??20 mg, By Mouth, Daily in AM Famotidine 20 mg Tablet (famotidine 20 mg oral tablet) ??40 mg, By Mouth, Daily at bedtime Gabapentin 100 mg Capsule (gabapentin 100 mg oral capsule) ??100 mg, By Mouth, Daily at bedtime Heparin 5000 units/mL Inj (1 mL) (Heparin Inj) ??5,000 units 1 mL, Subcutaneous Injection, 3 times a day Influenza Quad (6mo - 64 yr) Fluzone 0.5mL (Influenza, Quadrivalent Vaccine (Fluzone Quad)) ??0.5 mL, Intramuscular, Once Insulin Glargine 100 units/mL Inj (Lantus Inj) ??44 units 0.44 mL, Subcutaneous Injection, Daily atbedtime Insulin Lispro 100 units/mL Inj (3mL) (Insulin LISPRO Sliding Scale) ??2-10 units, Subcutaneous Injection, 3 times a day before meals Metoclopramide 10 mg Tablet (metoclopramide 10 mg oral tablet) ??10 mg, By Mouth, Daily at bedtime Pantoprazole 40 mg EC Tablet (pantoprazole 40 mg oral delayed release tablet) ??40 mg, By Mouth, 2 times a day PredniSONE 5 mg Tablet (predniSONE 5 mg oral tablet) ??10 mg, By Mouth, Daily Tacrolimus 1 mg Capsule (tacrolimus 1 mg oral capsule) ??2 mg, By Mouth, Every 12 hours Trazodone 50 mg Tablet (traZODone 50 mg oral tablet) ??25 mg, By Mouth, Daily at bedtime CONTINUOUS: (0) PRN: (13) Acetaminophen 325 mg Tablet (Acetaminophen Tablet) ??650 mg, By Mouth, Every 4 hours Albuterol 0.083% Inhalation Solution (Albuterol 0.083% inhalation nakia) ??2.5 mg 3 mL, Inhalation, Every 6 hours Dextrose Inj Syringe (Dextrose 50% Inj Syringe (25Gm)) ??12.5 Gm, IV Push Slowly, Every 20 minutes Dextrose Inj Syringe (Dextrose 50% Inj Syringe (25Gm)) ??25 Gm, IV Push Slowly, Every 15 minutes Glucagon 1 mg Inj (Glucagon Inj) ??1 mg, Intramuscular, Once Glucose 40% Gel (15 Gm) (Glucose Gel) ??15 Gm, By Mouth, Every 20 minutes Glucose 40% Gel (15 Gm) (Glucose Gel) ??30 Gm, By Mouth, Every 20 minutes Loperamide 2 mg Capsule (loperamide 2 mg oral capsule) ??2 mg, By Mouth, 3 times a day Melatonin 3 mg Tablet (Melatonin Tablet) ??3 mg, By Mouth, Daily at bedtime NaCl 0.9% Flush 3ml (NaCL 0.9% Flush) ??3 mL, IV Push, Every 8 hours Polyethylene Glycol 17 Gm Powder (MiraLax Powder) ??17 Gm 1 pack/packet, By Mouth, Daily Senna 8.6 mg / Docusate 50 mg tablet (Docusate/Senna Tablet) ??1 tablet, By Mouth, 2 times a day TraMADOL 50 mg Tablet (traMADol 50 mg oral tablet) ??50 mg, By Mouth, Every 12 hours ? Results Recent Labs BLOOD COUNT & DIFF WBC 15.8 k/mm3 (High)?? 05/05/2022 13:11 RBC 4.67 m/mm3 (Low)?? 05/05/2022 13:11 Hgb 13.2 Gm/dL (Low)?? 05/05/2022 13:11 Hct 40.3 % (Low)?? 05/05/2022 13:11 MCV 86.3 femtoliters ()?? 05/05/2022 13:11 MCH 28.3 pg ()?? 05/05/2022 13:11 MCHC 32.8 g/dL (Low)?? 05/05/2022 13:11 Platelet Count 225 k/mm3 ()?? 05/05/2022 13:11 RDW-SD 44.0 femtoliters ()?? 05/05/2022 13:11 MPV 11.7 femtoliters ()?? 05/05/2022 13:11 Nucleated RBC (Automated) 0.0 #/100 WBC'S ()?? 05/05/2022 13:11 Abs. NRBC 0.0 k/mm3 ()?? 05/05/2022 13:11 Abs. Neut 14.4 k/mm3 (High)?? 05/05/2022 13:11 Abs. Lymph 0.5 k/mm3 (Low)?? 05/05/2022 13:11 Abs. [place] 0.7 k/mm3 ()?? 05/05/2022 13:11 Abs. Eo 0.0 k/mm3 ()?? 05/05/2022 13:11 Abs. Baso 0.0 k/mm3 ()?? 05/05/2022 13:11 Neut % 91.3 % (High)?? 05/05/2022 13:11 Lymph % 3.4 % (Low)?? 05/05/2022 13:11 [place] % 4.6 % ()?? 05/05/2022 13:11 Eos % 0.1 % ()?? 05/05/2022 13:11 Baso % 0.2 % ()?? 05/05/2022 13:11 Imm Gran 0.4 % ()?? 05/05/2022 13:11 Abs. Imm Gran 0.1 k/mm3 ()?? 05/05/2022 13:11 ?? CHEM GENERAL Sodium 132 mmol/L (Low)?? 05/05/2022 13:11 Potassium 4.6 mmol/L ()?? 05/05/2022 13:11 Chloride 100 mmol/L ()?? 05/05/2022 13:11 Bicarbonate Level 19 mmol/L (Low)?? 05/05/2022 13:11 Anion Gap 13 ()?? 05/05/2022 13:11 Glucose Level 494 mg/dL (High)?? 05/05/2022 13:11 Glucose, POC 279 mg/dL (High)?? 05/05/2022 20:06 BUN 30 mg/dL (High)?? 05/05/2022 13:11 Creatinine-Blood 2.2 mg/dL (High)?? 05/05/2022 13:11 Estimated GFR Creatinine 35 ML/MIN/1.73 M2 ()?? 05/05/2022 13:11 Calcium 8.9 mg/dL ()?? 05/05/2022 13:11 Protein, Total 6.3 Gm/dL ()?? 05/05/2022 13:11 Albumin 3.9 Gm/dL ()?? 05/05/2022 13:11 AG Ratio 1.6 ()?? 05/05/2022 13:11 Alkaline Phosphatase 118 units/L ()?? 05/05/2022 13:11 AST (SGOT) 13 units/L ()?? 05/05/2022 13:11 ALT (SGPT) 25 units/L ()?? 05/05/2022 13:11 Bilirubin, Total 0.6 mg/dL ()?? 05/05/2022 13:11 ?? VIROLOGY COVID-19 POC Result NEGATIVE ()?? 05/05/2022 12:33 ? Hospital Progress note Steve Padilla MD: PERFORM, SIGN, VERIFY Event Display: Progress Note Hospital Authored Date: Patient: TITO MADDOX Age: 56 years Sex: Male : 1965 Associated Diagnoses: None Author: Steve Padilla MD Overnight Events & Current Issues no new issues overnight VSS Review of Systems Review of Systems Constitutional: no complaints. Respiratory negative. Cardiovascular negative. Gastrointestinal negative. ALLERGIES: Benadryl (itching) Dilaudid (anaphylaxis) morphine (itching) Medication List Active Medications Ordered Acetaminophen: 650 mg, By Mouth, Every 4 hours, PRN: Pain , Mild. Albuterol: 2.5 mg, 3 mL, Inhalation, Every 6 hours, PRN: Wheezing/Shortness of Breath. Amlodipine: 10 mg, tablet, By Mouth, Daily. Aspirin: 81 mg, By Mouth, Daily. Atorvastatin: 10 mg, tablet, By Mouth, Daily at bedtime. Calcitriol: 0.5 mcg, capsule, By Mouth, Daily. ceFAZolin: 2 Gm, IV Push, Every 12 hours. Dextrose 50% in Water: 12.5 Gm, IV Push Slowly, Every 20 minutes, PRN: Blood Glucose. Dextrose 50% in Water: 25 Gm, IV Push Slowly, Every 15 minutes, PRN: Blood Glucose. Docusate-Senna: 1 tablet, By Mouth, 2 times a day, PRN: Constipation. Duloxetine: 20 mg, By Mouth, Daily in AM. Famotidine: 40 mg, By Mouth, Daily at bedtime. Gabapentin: 100 mg, By Mouth, Daily at bedtime. Glucagon: 1 mg, Intramuscular, Once, PRN: Other. Glucose: 15 Gm, By Mouth, Every 20 minutes, PRN: Blood Glucose. Glucose: 30 Gm, By Mouth, Every 20 minutes, PRN: Blood Glucose. Heparin: 5,000 units, 1 mL, Subcutaneous Injection, 3 times a day. HydrOXYzine: 10 mg, By Mouth, 3 times a day, PRN: Itch. Insulin Glargine: 30 units, 0.3 mL, Subcutaneous Injection, Daily at bedtime. Insulin Lispro: 2-10 units, Subcutaneous Injection, 3 times a day before meals. Lidocaine: 20 mL, Intradermal, Once. Loperamide: 2 mg, capsule, By Mouth, 3 times a day, PRN: Diarrhea. Melatonin: 3 mg, By Mouth, Daily at bedtime, PRN: Insomnia. Metoclopramide: 10 mg, By Mouth, Daily at bedtime. Pantoprazole: 40 mg, tablet, By Mouth, 2 times a day. Polyethylene Glycol 3350: 17 Gm, 1 pack/packet, By Mouth, Daily, PRN: Constipation. PredniSONE: 5 mg, By Mouth, Daily. Sodium Chloride: 3 mL, IV Push, Every 8 hours, PRN: Line/Tube Patency. Tacrolimus: 2 mg, By Mouth, Every 12 hours. Tramadol: 50 mg, By Mouth, Every 12 hours, PRN: Pain , Moderate. Trazodone: 25 mg, tablet, By Mouth, Daily at bedtime. Prescribed Amlodipine: 10 mg, 1 tablet, By Mouth, Daily, Take instead of the 5mg tablets for blood pressure, 30 tablet, 2 Refill(s). Cephalexin: 500 mg, 1 capsule, By Mouth, 3 times a day, for 6 days, start on 05/12, 18 capsule, 0 Refill(s). Ergocalciferol: 50,000 International_Units, 1 capsule, By Mouth, Every week, for 30 days, 5 capsule, 5 Refill(s). Insulin Lispro: See Instructions, INJECT 10 units SUBCUTANEOUSLY tid with meals. MAX DAILY DOSE = 30 UNITS, 9 mL, 11 Refill(s). NIFEdipine: 30 mg, 1 tablet, By Mouth, Daily, for 30 days, 30 tablet, 0 Refill(s). PEG Electrolyte Solution: See Instructions, as directed, 1 each, 0 Refill(s). Documented Acetaminophen: 500 mg, 1 tablet, By Mouth, Every 4 hours, PRN: as needed for fever, 100 tablet, 0 Refill(s). Albuterol: 2.5 mg, 3 mL, Inhalation, Every 6 hours, PRN: for wheezing, 25 each, 0 Refill(s). Albuterol: 2.5 mg, 3 mL, Neb, Every 8 hours. Aspirin: 81 mg, 1 tablet, By Mouth, Daily. Atorvastatin: 10 mg, 1 tablet, By Mouth, Daily, 30 tablet. Calcitriol: 0.5 mcg, 1 capsule, By Mouth, Daily, 30 capsule, 0 Refill(s). Cholecalciferol: 1,250 mcg, 1 capsule, By Mouth, Every week, 12 capsule, 0 Refill(s). Duloxetine: 20 mg, 1 capsule, By Mouth, Daily, 0 Refill(s). Famotidine: 40 mg, 1 tablet, By Mouth, Daily at bedtime, 30 tablet, 0 Refill(s). Gabapentin: 100 mg, 1 capsule, By Mouth, 3 times a day, 0 Refill(s). Gabapentin: TAKE ONE CAPSULE AT BEDTIME. Insulin Aspart: 10 units, Subcutaneous Injection, 3 times a day before meals, INJECT 9 UNITS SUBCUTANEOUSLY WITH BREAKFAST, 9 UNITS SUBCUTANEOUSLY WITH LUNCH AND 7 UNITS SUBCUTANEOUSLY WITH DINNER. Insulin Glargine: 35 units, Subcutaneous Injection, Daily at bedtime, 0 Refill(s). Levothyroxine: 50 mcg, 2 tablet, By Mouth, Daily, 0 Refill(s). Lidocaine Topical: 1 patch, Topically, Daily, remove after 12 hours, PRN: Pain , Mild, 13 each, 0 Refill(s). Loperamide: 2 mg, 1 capsule, By Mouth, 3 times a day, 0 Refill(s). Metoclopramide: 10 mg, 1 tablet, By Mouth, Every 6 hours, 0 Refill(s). Mupirocin Topical: 1 application, Topically, 3 times a day, 15 Gm, 0 Refill(s). Pantoprazole: 40 mg, 1 tablet, By Mouth, 2 times a day, 60 tablet, 0 Refill(s). PredniSONE: 5 mg, 1 tablet, By Mouth, Daily, 0 Refill(s). Tacrolimus: 2 mg, 2 capsule, By Mouth, Every 12 hours, Take 1 capsule everyday in the morning and 2 capsules everyday in the evening. Tamsulosin: 0.4 mg, 1 capsule, By Mouth, Daily at bedtime, 0 Refill(s). Tramadol: 50 mg, 1 tablet, By Mouth, Every 12 hours, PRN: as needed for pain, 0 Refill(s). Trazodone: 75 mg, 1.5 tablet, By Mouth, Daily at bedtime, 30 tablet, 0 Refill(s). Medications Inactivated in the Last 72 Hours Aspirin: 81 mg, 1 tablet, By Mouth, Daily, 30 tablet, 0 Refill(s). Atorvastatin: 10 mg, 1 tablet, By Mouth, Daily, 30 tablet, 0 Refill(s). Calcitriol: 0.5 mcg, 1 capsule, By Mouth, Daily, 30 capsule, 0 Refill(s). ceFAZolin: 2 Gm, IV Push, Every 8 hours. Cephalexin: 500 mg, 1 capsule, By Mouth, 4 times a day, for 6 days, start on 05/12, 24 capsule, 0 Refill(s). Duloxetine: TAKE 1 CAPSULE BY MOUTH EVERY DAY. Durable Medical Equipment: See Instructions, change every 14 days, E 11.65, 2 each, 11 Refill(s). Durable Medical Equipment: See Instructions, check BS 5 times daily, E 11.65, 1 each, 1 Refill(s). Durable Medical Equipment: See instructions, for 30 days, inject 4 times daily, E 11.65, 120 each, 11 Refill(s). Durable Medical Equipment: See Instructions, Right foto off-loading boot Dx: Right 5th toe amputation, 1 each, 0 Refill(s). Insulin Glargine: See Instructions, Subcutaneous Injection, for 90 days, INject 44 units once daily, E 11.65, 15 mL, 11 Refill(s). Insulin Glargine: INJECT 44 UNITS SUBCUTANEOUSLY EVERY DAY. Lactated Ringers Injection 1,000 mL: 100 mL/hr, IV Infusion. Metoclopramide: TAKE 1 TABLET BY MOUTH AT BEDTIME. Miscellaneous Rx: See Instructions, USE FOUR TIMES DAILY, 200 Unknown, 5 Refill(s). Miscellaneous Rx: See Instructions, use as directed DX: right fifth toe amputation, 1 each, 0 Refill(s). Omeprazole: 20 mg, 1 capsule, By Mouth, Daily, 30 capsule. PredniSONE: 0 Refill(s). PredniSONE: 10 mg, 1 tablet, By Mouth, Daily, 10 tablet, 0 Refill(s). Sodium Chloride 0.9% 1,000 mL: 100 mL/hr, IV Infusion. Tacrolimus: 3 mg, 3 capsule, By Mouth, Daily before breakfast, 0 Refill(s). Tacrolimus: 2 mg, 2 capsule, By Mouth, Daily at bedtime, 0 Refill(s). Trazodone: 25 mg, 0.5 tablet, By Mouth, Daily at bedtime, 15 tablet, 0 Refill(s). Trazodone: 100 mg, 1 tablet, By Mouth, Daily at bedtime, 0 Refill(s). Vancomycin: 1,250 mg, 250 mL/hr, IVPB, Every 36 hours. DISCHARGE MEDICATIONS FH; No family history recorded. Acetaminophen: 500 mg = 1 tablet, By Mouth, Every 4 hours, PRN (as needed for fever) Albuterol: 2.5 mg = 3 mL, Neb, Every 8 hours Albuterol: 2.5 mg = 3 mL, Inhalation, Every 6 hours, PRN (for wheezing) Amlodipine: 10 mg = 1 tablet, By Mouth, Daily, Take instead of the 5mg tablets for blood pressure Aspirin: 81 mg = 1 tablet, By Mouth, Daily Atorvastatin: 10 mg = 1 tablet, By Mouth, Daily Calcitriol: 0.5 mcg = 1 capsule, By Mouth, Daily Cephalexin: 500 mg = 1 capsule, By Mouth, 3 times a day, start on 11/22 Cholecalciferol: 1,250 mcg = 1 capsule, By Mouth, Every week Duloxetine: 20 mg = 1 capsule, By Mouth, Daily Ergocalciferol: 50,000 International_Units = 1 capsule, By Mouth, Every week Famotidine: 40 mg = 1 tablet, By Mouth, Daily at bedtime Gabapentin: 100 mg = 1 capsule, By Mouth, 3 times a day Gabapentin: TAKE ONE CAPSULE AT BEDTIME Insulin Aspart: 10 units, Subcutaneous Injection, 3 times a day before meals, INJECT 9 UNITS SUBCUTANEOUSLY WITH BREAKFAST, 9 UNITS SUBCUTANEOUSLY WITH LUNCH AND 7 UNITS SUBCUTANEOUSLY WITH DINNER Insulin Glargine: 35 units, Subcutaneous Injection, Daily at bedtime Insulin Lispro: See Instructions, INJECT 10 units SUBCUTANEOUSLY tid with meals. MAX DAILY DOSE = 30UNITS Levothyroxine: 50 mcg = 2 tablet, By Mouth, Daily Lidocaine Topical: 1 patch, Topically, Daily, PRN (Pain , Mild), remove after 12 hours Loperamide: 2 mg = 1 capsule, By Mouth, 3 times a day Metoclopramide: 10 mg = 1 tablet, By Mouth, Every 6 hours Mupirocin Topical: 1 application, Topically, 3 times a day NIFEdipine: 30 mg = 1 tablet, By Mouth, Daily Pantoprazole: 40 mg = 1 tablet, By Mouth, 2 times a day PEG Electrolyte Solution: See Instructions, as directed PredniSONE: 5 mg = 1 tablet, By Mouth, Daily Tacrolimus: 2 mg = 2 capsule, By Mouth, Every 12 hours, Take 1 capsule everyday in the morning and 2capsules everyday in the evening Tamsulosin: 0.4 mg = 1 capsule, By Mouth, Daily at bedtime Tramadol: 50 mg = 1 tablet, By Mouth, Every 12 hours, PRN (as needed for pain) Trazodone: 75 mg = 1.5 tablet, By Mouth, Daily at bedtime PROBLEM LIST -donor kidney transplant Parathyroidectomy Irritable Bowel DIABETES MELLITUS Acid reflux CKD (chronic kidney disease) Cholycystectomy Diabetes mellitus Diabetic foot infection End stage renal disease GERD (gastroesophageal reflux disease) HYPERTENSION History of parathyroidectomy Hyperlipidemia Hypertension Peripheral neuropathy Secondary hyperparathyroidism of renal origin SOCIAL HX; Tobacco Details: Never smoker Physical Examination Vitals Vitals : VITAL SIGNS SECTION 05/12/2022 12:42 EST Early Warning Score 0.00 05/12/2022 9:38 EST Early Warning Score 0.00 05/12/2022 9:37 EST Early Warning Score 0.00 05/12/2022 9:37 EST Pulse Rate 85 bpm Systolic Blood Pressure 168 mm Hg H Diastolic Blood Pressure 108 mm Hg H Blood pressure sites Arm, right Mean Arterial Pressure 128 mm Hg Pulse Pressure 60 mm Hg 05/12/2022 8:09 EST Early Warning Score 0.00 05/12/2022 7:46 EST Early Warning Score 0.00 Early Warning Score 0.00 05/12/2022 7:46 EST Early Warning Score 0.00 05/12/2022 6:01 EST Early Warning Score 0.00 05/12/2022 6:01 EST Temperature 98.1 DegF Temperature Route Oral Pulse Rate 67 bpm Respiratory Rate 18 br/min Systolic Blood Pressure 153 mm Hg H Diastolic Blood Pressure 90 mm Hg H Blood pressure sites Arm, right Mean Arterial Pressure 111 mm Hg Pulse Pressure 63 mm Hg Oxygen Saturation 98 % Mode of Delivery (Oxygen) Room air 05/11/2022 21:42 EST Early Warning Score 2.00 05/11/2022 21:42 EST Early Warning Score 2.00 05/11/2022 21:33 EST Respiratory Rate 18 br/min Respiratory Rate 18 br/min 05/11/2022 21:03 EST Early Warning Score 2.00 05/11/2022 21:03 EST Blood pressure sites Arm, right (Modified) 05/11/2022 21:01 EST Temperature 97.5 DegF Temperature Route Oral Pulse Rate 72 bpm Respiratory Rate 16 br/min Systolic Blood Pressure 163 mm Hg H Diastolic Blood Pressure 99 mm Hg H Blood pressure sites Arm, right Mean Arterial Pressure 120 mm Hg Pulse Pressure 64 mm Hg Oxygen Saturation 99 % Mode of Delivery (Oxygen) Room air 05/11/2022 20:55 EST Early Warning Score 0.00 05/11/2022 20:35 EST Early Warning Score 0.00 05/11/2022 20:33 EST Respiratory Rate 18 br/min 05/11/2022 18:09 EST Early Warning Score 0.00 05/11/2022 16:52 EST Early Warning Score 0.00 05/11/2022 13:32 EST Early Warning Score 0.00 05/11/2022 13:31 EST Temperature 98.3 DegF Temperature Route Oral Pulse Rate 98 bpm H Respiratory Rate 18 br/min Systolic Blood Pressure 129 mm Hg Diastolic Blood Pressure 88 mm Hg H Blood pressure sites Arm, left Mean Arterial Pressure 102 mm Hg Pulse Pressure 41 mm Hg Oxygen Saturation 97 % Mode of Delivery (Oxygen) Room air 05/11/2022 11:48 EST Early Warning Score 2.00 05/11/2022 9:35 EST Temperature 98.2 DegF Temperature Route Temporal Pulse Rate 92 bpm H Respiratory Rate 18 br/min Systolic Blood Pressure 125 mm Hg Diastolic Blood Pressure 81 mm Hg Blood pressure sites Arm, left Mean Arterial Pressure 96 mm Hg 05/11/2022 8:22 EST Early Warning Score 2.00 05/11/2022 8:20 EST Systolic Blood Pressure 144 mm Hg H Diastolic Blood Pressure 88 mm Hg H 05/11/2022 8:02 EST Early Warning Score 2.00 05/11/2022 5:30 EST Early Warning Score 2.00 05/11/2022 5:29 EST Temperature 97.6 DegF Temperature Route Oral Pulse Rate 68 bpm Respiratory Rate 18 br/min Systolic Blood Pressure 141 mm Hg H Diastolic Blood Pressure 89 mm Hg H Blood pressure sites Arm, right Mean Arterial Pressure 106 mm Hg Pulse Pressure 52 mm Hg Oxygen Saturation 99 % Mode of Delivery (Oxygen) Room air . Vital Signs (last 24 hrs) Last Charted Heart Rate Peripheral 85 bpm (MAY 12:37) Resp Rate 18 br/min (MAY 12:) SBP H 168mm Hg (MAY 12:37) DBP H 108mm Hg (MAY 12:) SpO2 98 % (MAY 12:) Height 160 cm (MAY 12:37) General Appearance No apparent distress. Cardiac Rhythms: RRR. Abdomen/GI Soft. Extremities Normal. Neurologic Alert. Results Review RENAL FLOWSHEET : RENAL FLOWSHEET 05/12/2022 6:15 EST Creatinine-Blood 2.4 mg/dL H BUN 26 mg/dL H Estimated GFR Creatinine 30 ML/MIN/1.73 M2 Sodium 137 mmol/L Potassium 4.9 mmol/L Chloride 100 mmol/L Bicarbonate Level 27 mmol/L Anion Gap 10 Calcium 9.6 mg/dL Tacrolimus Level 7.8 ng/mL 05/11/2022 8:02 EST Tacrolimus Level 7.2 ng/mL 05/10/2022 7:05 EST Creatinine-Blood 2.3 mg/dL H Tacrolimus Level 9.4 ng/mL 05/09/2022 7:31 EST Creatinine-Blood 2.4 mg/dL H Tacrolimus Level 7.9 ng/mL 05/08/2022 7:07 EST Creatinine-Blood 2.4 mg/dL H Tacrolimus Level 8.8 ng/mL 05/07/2022 2:14 EST Creatinine-Blood 2.3 mg/dL H Tacrolimus Level 10.1 ng/mL 05/06/2022 5:06 EST Creatinine-Blood 2.0 mg/dL H Tacrolimus Level 9.3 ng/mL 05/05/2022 13:11 EST Creatinine-Blood 2.2 mg/dL H Tacrolimus Level 8.0 ng/mL General results Impression and Plan Comprehensive Plan Stable kidney transplant and tacro level will f/u as OP Additional Comments avoid volume depletion and nephrotoxic drugsCristopher ESPAÑA, Maria Elena: VERIFY, PERFORM, SIGN Event Display: Progress Note Hospital Authored Date: [id number] Patient: TITO MADDOX Age: 56 years Sex: Male : 1965 Associated Diagnoses: None Author: Cristopher ESPAÑA, Maria Elena Findings Problem Related to Alteration in Gastrointestinal : Alteration in Gastrointestinal Func/new 05/12/2022 10:00 EST Alteration in GI status Related to Diarrhea Goals & Outcomes, Gastrointestinal Establish a regular pattern of elimination for pt, Nutritional intake is adequate for metabolic needs, Pt will achieve normal/improved fluid balance, Pt will maintain adequate GI function appropriate for pt, Pt will maintain normal elimination patterns, Pt will resume/maintain adequate hemodynamic status, Pt will tolerate age appropriate diet prior to discharge, Pt will experience a decrease in diarrhea Interventions, Gastrointestinal Assess/monitor abdomen for distention, tenderness, Assess/monitor abdominal girth & bowel function, Assess/monitor bowel pattern, bowel sounds, flatus, Assess/monitor number of bowel movements, Assess/monitor color, quantity, quality, consistency of stoo, Assess/monitor pt for nausea, vomiting, Assess if pt tolerating diet, DVT prophylaxis as ordered, Teach Pt/caregiver on bowel elimination interventions, Teach/encourage deep breath & cough exercises, Teach/encourage use of incentive spirometer, Monitor & document reponse to anti-diarrhea meds Goals/Interventions, Gastrointestinal Yes Gastrointestinal, Problem Start 05/12/2022 10:48 Reviewed plan with, Gastrointestinal Patient Patient Progression, Gastrointestinal Plan Initiation . Alteration in Integumentary : Alteration in Integumentary/new 05/12/2022 10:00 EST Alteration in Integumentary Related to Cellulitis, Other: facial abscess Goals & Outcomes, Integumentary Nutritional intake is adequate for metabolic needs, Pt will maintain adequate fluid & nutritional balance, Pt will maintain intact skin integrity Interventions, Integumentary Encourage & assist pt to change position frequently, Increase turning frequency if red or blanched areas appear, Interdisciplinary consults as appropriate, Keep linen clean, dry and wrinkle free, Keep skin clean & dry, Minimize friction, shear and moisture, Monitor reddened areas for continued or increasing reddness, Record extent of impaired skin integrity, Relieve pressure off bony areas, Reposition pt off reddened areas, Teach Pt/caregiver s/s of infection, Teach Pt/S.O. risks of & measures to prevent skin breakdown BH Goals/Interventions, Integumentary Yes Integumentary, Problem Start 05/07/2022 4:18 Reviewed plan with, Integumentary Patient Patient Progression, Integumentary Pt progressing according to plan . Narrative/Incidental Nursing assessment completed utilizing metal expediter via Aula 7. Pt is A+O x 4, VS as recorded. No s/sx of hypo/hyperglycemia, continues with lispro s/s with meals. Pt denies pain, however c/o fo a constant itching to right facial wound, states it feels like something is crawling around in my face. Dressing lifted to better examine, wound site draining SS fluid, no signs of foreign body, pt pleased with this information. Pt continues with IV ABT/abscess and cellulitis as ordered. LSCTA, denies SOB/acute resp distress. I.S use and deep breathing/coughing exercises encouraged.+BS x 4, abdomen is soft and nontender. Pt reports having a recurrent episode of diarrhea this AM, states I always have diarrhea, I have IBS. C. Diff stool psec results remain pending from Wednesday evening's collection, reports patient is cleared to d/c home if results are negative today. Contact precautions remain in place, pt reminded of plan of care PRN. +CMS all extremities, continues with heparin as anticoagtx, no s/sx of bleeding. OOb to bathroom independently, gait steady. Wound care provided to right cheek asbcess as ordered, see CIS for full skin assessment. Pt resting in bed using his cell phone, resp even. Call valles within reach, able to make needs known.. Discharge Information Case Management Discharge Plan : Case Management Discharge Plan Data 05/11/2022 11:00 EST Discharge Level of Care at Discharge Homehealth/VNA Discharge VNA/Hospice/Home Care [facility] Name of Agency #1 [facility] [place], clinical intake, [facility] Service Categories #1 Senior Living, Wound Care Service Comments #1 [facility] is the agency that will provide you with home half-way visits for wound assessment & instruction on how to perform your own wound care. The agency will contact you directly to schedule your first home nursing visit.Fly SEVERINO, Yobany: PERFORM Event Display: Progress Note Hospital Authored Date: Patient: ??TITO MADDOX ? Age:??56 Years?Sex:??Male?:??1965?? Subjective ??Patient ??seen and examined today ??right cheek pain improving diarrhea? Review of Systems General: No fever, chills or rigors Cardiac: No Chest pain, No palpitations, No light headedness Respiratory: no Short of breath, no cough Abdomen: diarrhea Nervous system: No headache, blurred vision, tingling or numbness or any weakness right cheek swelling improving Objective Vital Signs?? Temperature: 98.3 DegF (05/11/22 13:31:00) Temperature Route: Oral (05/11/22 13:31:00) Pulse Rate:??98 bpm??High (05/11/22 13:31:00) Respiratory Rate: 18 br/min (05/11/22 13:31:00) Systolic Blood Pressure: 129 mm Hg (05/11/22 13:31:00) Diastolic Blood Pressure:??88 mm Hg??High (05/11/22 13:31:00) Blood pressure sites: Arm, left (05/11/22 13:31:00) Mean Arterial Pressure: 102 mm Hg (05/11/22 13:31:00) Pulse Pressure: 41 mm Hg (05/11/22 13:31:00) Oxygen Saturation: 97 % (05/11/22 13:31:00) Mode of Delivery (Oxygen): Room air (05/11/22 13:31:00) Early Warning Score: 0 (05/11/22 13:32:00) ? Physical Exam ?? 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 Results Recent Labs CHEM GENERAL Sodium 139 mmol/L ()?? 05/10/2022 07:05 Potassium 4.2 mmol/L ()?? 05/10/2022 07:05 Chloride 102 mmol/L ()?? 05/10/2022 07:05 Bicarbonate Level 27 mmol/L ()?? 05/10/2022 07:05 Anion Gap 10 ()?? 05/10/2022 07:05 Glucose Level 48 mg/dL (Critical)?? 05/10/2022 07:05 Glucose, POC 161 mg/dL (High)?? 05/11/2022 11:44 BUN 24 mg/dL (High)?? 05/10/2022 07:05 Creatinine-Blood 2.3 mg/dL (High)?? 05/10/2022 07:05 Estimated GFR Creatinine 32 ML/MIN/1.73 M2 ()?? 05/10/2022 07:05 Calcium 9.9 mg/dL ()?? 05/10/2022 07:05 ?? TOXICOLOGY/TDM Tacrolimus Level 7.2 ng/mL ()?? 05/11/2022 08:02 Vancomycin Level, Random 11.8 mg/L ()?? 05/10/2022 07:05 ? Assessment/Plan Diagnoses Asthma ??(J45.909) CKD stage 3 secondary to diabetes ??(E11.22) Cellulitis of face ??(L03.211) ESRD (end stage renal disease) ??(N18.6) Facial cellulitis ??(L03.211) History of IBS ??(Z87.19) Hyperlipemia ??(E78.5) Hypertension ??(I10) Renal transplant, status post ??(Z94.0) Sepsis due to methicillin susceptible Staphylococcus aureus ??(A41.01) Uncontrolled diabetes mellitus with hyperglycemia ??(E11.65) ?56-year-old Romanian-speaking male with history of end-stage renal disease secondary to diabetic nephropathy, s/p donor renal transplant in 2013 chronically on tacrolimus and prednisone , complicated by CKD stage III and allograft, poorly controlled T2 DM, hypertension, hyperlipidemia, 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 now on IV abx and also having diarrhea. ? Facial cellulitis ??(L03.211) /Right facial abscess p/w/ 2 days of??quickly progressing??R facial??swelling associated with pain??after??appearance of??pimple like??lesion, ? furuncle, today subjective fever and pain swallowing ??blood cultures negative s/p Vancomycin and now??on ??cefazolin as cultures showed MSSA plastic surgery consulted - s/p I&D and now advised BID dressing changes as of 05/10- swelling and induration much improved plastic surgery signed off. ID advised to check Cdiff as he is having diarrhea- If C diff is ruled then we can send him home tomorrow with Keflex to complete total 10 days. ? CKD stage III (E11.) of allograft Renal transplant, status post (Z94.0):?? ESRD (end stage renal disease) ??(N18.6) 2/2 diabetic nephropathy Patient??follows w/??Dr Mendieta and Dr Padilla from [facility], on tacrolimus and prednisone?? baseline creatinine 1.9 - 2.3 range, now creatinine at 2.3 Continue current immunosuppressive regimen:??Tacrolimus 2 mg twice daily and prednisone??5 mg daily tacrolimus level 7.2 renal advised to give 1 liter LR. ?? Stable chronic conditions: ?? History of IBS (Z87.19):??Denies??active issues, continue??Loperamide ?? Hyperlipemia (E78.5):??continue atorvastatin 10 mg ?? Hypertension (I10):??Controlled, continue Amlodipine 10 mg ?? Uncontrolled diabetes mellitus with hyperglycemia (E11.65): home dose of lantus, 44 units, at HS butdecreased to 30 units qhs on 05/10 due to hypoglycemia and now will increase to 32 units QHS HbA1c 11. continue lispro sliding scale ?? Asthma (J45.909):??no clinical sx of exacerbation, PRN albuterol inhaler as needed ? VTE Prophylaxis:??Heparin subq every 8 hours Code Status:??FULL Ongoing Medical Necessity:??RIGHT FACIAL CELLULITIS /ABSCESS??/diarrhea. Note Maria Elena Nicholas RN: PERFORM Event Display: Discharge/Transfer Note Hospital Authored Date: Nursing Discharge Note Entered On: 05/12/2022 12:43 EST Performed On: 05/12/2022 12:42 EST by Maria Elena Nicholas RN Nursing Discharge Note 2 Discharge Time : 05/12/2022 12:42 EST Discharge Level of Care at Discharge : Homehealth/VNA Discharge VNA/Hospice/Home Care(v001) : [facility] Patient Left Unit Via : Ambulatory Patient Accompanied Off Unit with : Responsible adult DC Instructions Provided & Signed by Pt : Yes Patient Understands D/C Instructions : Yes Patient Instructions Discharge Signed : Yes Did Pt have Specialty Bed or Wound Vac : No Maria Elena Nicholas RN - 05/12/2022 12:42 oJy SEVERINO, Yobany: MODIFY, MODIFY, PERFORM, MODIFY, MODIFY Event Display: Discharge/Transfer Note Hospital Authored Date: Patient: ??TITO MADDOX ? Age:??56 Years?Sex:??Male?:??1965?? Patient Information Discharge Location: S64 Primary Care Physician: Zoraida Luo MD Admit Date/Time: 05/05/22 17:44 Discharge Disposition Discharge Disposition: Home with Home Health Discharge Diagnosis Asthma (J45.909) CKD stage 3 secondary to diabetes (E11.22) Cellulitis of face (L03.211) ESRD (end stage renal disease) (N18.6) Facial cellulitis (L03.211) History of IBS (Z87.19) Hyperlipemia (E78.5) Hypertension (I10) Renal transplant, status post (Z94.0) Sepsis due to methicillin susceptible Staphylococcus aureus (A41.01) Uncontrolled diabetes mellitus with hyperglycemia (E11.65) ?? _ Discharge Medications Acetaminophen (acetaminophen 500 mg oral tablet)?1?tab(s)?500?Milligram?By Mouth?Every 4 hours?as needed?as needed for fever Albuterol (albuterol 0.083% inhalation solution)?3?Milliliter?2.5?Milligram?Neb?Every 8 hours Albuterol (albuterol 0.083% inhalation solution)?3?Milliliter?2.5?Milligram?Inhalation?Every 6 hours?as needed?for wheezing Amlodipine (amLODIPine 10 mg oral tablet)?1?tab(s)?10?Milligram?By Mouth?Daily?Take instead of the 5mg tablets for blood pressure Aspirin (aspirin 81 mg oral tablet)?1?tab(s)?81?Milligram?By Mouth?Daily Atorvastatin (atorvastatin 10 mg oral tablet)?1?tab(s)?10?Milligram?By Mouth?Daily Calcitriol (calcitriol 0.5 mcg oral capsule)?1?capsule?0.5?Microgram?By Mouth?Daily Cephalexin (cephalexin monohydrate 500 mg oral capsule)?1?capsule?500?Milligram?By Mouth?3 times a day?for 6?Days?start on 05/12 Cholecalciferol (Vitamin D3 50,000 intl units oral capsule)?1?capsule?1,250?Microgram?By Mouth?Every week Duloxetine (duloxetine 20 mg oral enteric coated capsule)?1?capsule?20?Milligram?By Mouth?Daily Ergocalciferol (ergocalciferol 66596 iu oral capsule)?1?capsule?50,000?International Unit?By Mouth?Every week?for 30?Days Famotidine (famotidine 40 mg oral tablet)?1?tab(s)?40?Milligram?By Mouth?Daily at bedtime Gabapentin (gabapentin 100 mg oral capsule)?100?Milligram?1?capsule?By Mouth?3 times a day Gabapentin (gabapentin 100 mg oral capsule)?TAKE ONE CAPSULE AT BEDTIME Insulin Aspart (Insulin Aspart FlexPen 100 units/mL injectable solution)?10?unit(s)?Subcutaneous Injection?3 times a day before meals?INJECT 9 UNITS SUBCUTANEOUSLY WITH BREAKFAST, 9 UNITS SUBCUTANEOUSLY WITH LUNCH AND 7 UNITS SUBCUTANEOUSLY WITH DINNER Insulin Glargine (Lantus Inj)?35?unit(s)?Subcutaneous Injection?Daily at bedtime Levothyroxine (levothyroxine 0.025 mg oral tablet)?2?tab(s)?50?Microgram?By Mouth?Daily Lidocaine Topical (lidocaine 5% topical film)?1?patch(es)?Topically?Daily?as needed?Pain , Mild?remove after 12 hours Loperamide (loperamide 2 mg oral capsule)?2?Milligram?1?capsule?By Mouth?3 times aday Metoclopramide (metoclopramide 10 mg oral tablet)?1?tab(s)?10?Milligram?By Mouth?Every 6 hours Mupirocin Topical (mupirocin 2% topical ointment)?1?niraj?Topically?3 times a day NIFEdipine (NIFEdipine (Eqv-Adalat CC) 30 mg oral tablet, extended release)?1?tab(s)?30?Milligram?By Mouth?Daily?for 30?Days Pantoprazole (pantoprazole 40 mg oral delayed release tablet)?1?tab(s)?40?Milligram?By Mouth?2 times a day PEG Electrolyte Solution (PEG-3350 with Electrolytes (Eqv-NuLYTELY) oral powder for reconstitution)?See Instructions?as directed PredniSONE (predniSONE 5 mg oral tablet)?1?tab(s)?5?Milligram?By Mouth?Daily Tacrolimus (tacrolimus 1 mg oral capsule)?2?capsule?2?Milligram?By Mouth?Every 12 hours?Take 1 capsule everyday in the morning and 2 capsules everyday in the evening Tamsulosin (tamsulosin 0.4 mg oral capsule)?0.4?Milligram?1?capsule?By Mouth?Dailyat bedtime Tramadol (traMADol 50 mg oral tablet)?1?tab(s)?50?Milligram?By Mouth?Every 12 hours?as needed?as needed for pain Trazodone (traZODone 50 mg oral tablet)?75?Milligram?1.5?tablet?By Mouth?Daily at bedtime ? Medications Started keflex Medications Discontinued none Doses Changed Lantus changed to 35 units because of hypoglycemia in the hospital. PCP Follow-Up/Heads-Up 1. follow up with renal 2. VNA arranged for dressing change on the face. Future Appointments Wednesday 3:00 PM EST ?? With: Where: [facility] Wednesday 4:30 PM EST ?? 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 Facial cellulitis ??(L03.211) /Right facial abscess p/w/ 2 days of??quickly progressing??R facial??swelling associated with pain??after??appearance of??pimple like??lesion blood cultures negative s/p Vancomycin and now??on ??cefazolin as cultures showed MSSA plastic surgery consulted - s/p I&D and now advised BID dressing changes as of 05/12- swelling and induration much improved plastic surgery signed off. ID advised to give 6 more days of Keflex 500mg QID to complete total 10 days of antibiotics. but based on creatinine clearance pharmacy recommended 500mg every 8hrs- [facility] he had diarrhea due to IBS and cdiff was negative. ? CKD stage III (E11.22) of allograft Renal transplant, status post (Z94.0):?? ESRD (end stage renal disease) ??(N18.6) 2/2 diabetic nephropathy Patient??follows w/??Dr Mendieta and Dr Padilla from [facility], on tacrolimus and prednisone?? baseline creatinine 1.9 - 2.3 range, now creatinine at 2.4 Continue current immunosuppressive regimen:??Tacrolimus 2 mg twice daily and prednisone??5 mg daily tacrolimus level 7.2 ?? Stable chronic conditions: ?? History of IBS (Z87.19):??Denies??active issues, continue??Loperamide ?? Hyperlipemia (E78.5):??continue atorvastatin 10 mg ?? Hypertension (I10):??Controlled, continue Amlodipine 10 mg ?? Uncontrolled diabetes mellitus with hyperglycemia (E11.65): home dose of lantus, 44 units, at HS butdecreased to 35 units qhs?? due to hypoglycemia HbA1c 11. continue lispro sliding scale ?? Asthma (J45.909):??no clinical sx of exacerbation, PRN albuterol inhaler as needed ? . Physical Exam ??Patient ??seen and examined today chest: b/l cta, heart:s1s2+, abdomen:s oft, bs+, non tender, neuro: aaox3, extremities: no edema doing well diarrhea improving right sided face: swelling/ induration. much improved will arrange vna for dressing changes. Consultants Dr.Carbal Mckay-renal Dr.SMITH CAMPUZANO- ID Dr. Bijan SEVERINO, Udell>SURGERY ?? Follow-Up Appointments Added Follow Up ?Time Frame ?Comments Steve Padilla?1 -2 WEEKS- Renal will arrange follow up Zoraida Luo?2 weeks Home Health Face to Face *Denotes mandatory oleary ?? *I certify that this patient is under my care and that I or an allowed non- physician working with campbelld a face to face encounter with the patient on this date:??05/12/2022 11:43 ?? *The encounter with the patient was in whole, or in part, for the following medical condition, whichis the primary diagnosis(es) for home health care:??Asthma (J45.909) ?? Cellulitis of face (L03.211) Facial CELLULITIS??/ABSCESS??OF THE FACE(L03.211) ESRD (end stage renal disease) (N18.6) History of IBS (Z87.19) Hyperlipemia (E78.5) Hypertension (I10) Renal transplant, status post (Z94.0) Sepsis due to methicillin susceptible Staphylococcus aureus (A41.01) Uncontrolled diabetes mellitus with hyperglycemia (E11.65) ? *Select the indications for the discipline/s that are being arranged for this patient. Nursing (select all that apply): [_] None [_] Medication management (reconciliation, teaching)?? [_] Chronic disease management?? [_X] Wound care and treatment?? [_] Home safety evaluation [_] Administer SQ/IM/IV medications?? [_] Cath care?? [_] Drain care?? [_] Trach or GT care?? Other _WOUND CARE: ??Warm moist compresses to R cheek TID - Twice daily irrigation and wick packing changes by RN ?? Occupation Therapy (select all that apply): [_] None [_] ADL Management [_] Fall prevention training [_] Energy conservation [_] Cognitive training Other _ Physical Therapy (select all that apply): [_] None [_] Functional mobility training [_] Home exercise program to strengthen [_] Increase ROM?? [_] Falls prevention training [_] Home maintenance program for chronic disease Other _ Speech Therapy (select all that apply): [_] None [_] Swallow evaluation and training [_] Speech and language training [_] Cognitive training to process, organize, and/or recall information Other _ ? *Homebound due to (select all that apply): [_] Inability to leave home without assistance/supervision [_] Inability to ambulate without assistance [_] Pain [x_] Decreased strength and endurance [_] Unsteady gait [_] Severe SOB and fatigue [_] Impaired transfers [_] Inability to negotiate stairs [_] Limited weight bearing [_] Mental status change? *Physician Signature:??MD Dagoberto ?? *By signing this, I certify that I have personally evaluated the patient and agree with the findingsand recommendations as documented above. ? 34??minutes spent on discharge Lisa Castelan RN, V: PERFORM, SIGN, VERIFY Event Display: Case Management Discharge Plan Authored Date: Patient: TITO MADDOX Age: 56 years Sex: Male : 1965 Associated Diagnoses: None Author: Lisa Castelan RN, V Discharge Plan Case Management Discharge Plan : Case Management Discharge Plan Data 05/11/2022 11:00 EST Discharge Level of Care at Discharge Homehealth/VNA Discharge VNA/Hospice/Home Care [facility] Name of Agency #1 [facility] Block[facility]1 [place], clinical intake, S Service Categories #1 Senior Living, Wound Care, Other: Instruction on dressing changes (Modified) Service Comments #1 [facility] is the agency that will provide you with home half-way visits for wound assessment & instruction on how to perform your own wound care. The agency will contact you directly to schedule your first home nursing visit.Maria Elena Nicholas RN: PERFORM, MODIFY Event Display: Patient Education/Instruction Authored Date: [id number] Inpatient Adult Discharge Instructions [address] [address] Name: TITO MADDOX : 1965 Visit: 05/05/2022 17:44:00 Current Date: 05/12/2022 11:59 Account: [id number] Inpatient Adult Discharge Instructions We would like to thank you for allowing us to assist you with your healthcare needs. The following includes patient education materials and information regarding your injury/illness. Our entire staff strives to provide an excellent experience for our patients and their families. PLEASE ENSURE YOU FOLLOW-UP PER THE INSTRUCTIONS BELOW! ?? YOUR OPINION IS IMPORTANT TO US! Please complete the survey you may receive by mail or email. Your feedback will be used to make improvements to the healthcare experiences of our patients and their families. Surveys are administered by [employer]. ?? If further treatment with your primary care physician or another doctor is recommended, it is important for you to keep the appointment. Call your primary care physician or return to the Emergency Department immediately if your condition worsens, fails to improve, or new symptoms develop. If you need to find a doctor, you can call [facility] for a referral at [phone] or toll free at [phone] [email or web address] ([phone]) or log in to [email or web address] ?? You can view and manage your care through the patient portal or by using a health care nirja of your choosing. [employer] is a website that allows you to securely view your medical information including your hospital discharge summary, office visit summaries, medications and follow-up visits. You can also request appointments, renew medications, and request access to your medical information using a health care niraj of your choosing, or just ask a question. You can enroll at [email or web address] or register during your next office visit. You have been discharged from [facility], Patient Care Unit: S64. If you have any questions regarding these instructions after you leave, please call us and we will be happy to assist you. [facility] Your Care Team Attending Physician Fly SEVERINO, Yobany Consulting Providers Woody Schulz DO; Abdiaziz SEVERINO, Josemanuel Rodrigues; Matilde SEVERINO, Aidee; Constantin SEVERINO, Graham; Drake SEVERINO, Goyo Fabian Discharging Providers Yobany Bill MD Reason for Admission Facial Cellulitis/Abscess Your Diagnosis Cellulitis of face Uncontrolled diabetes mellitus with hyperglycemia Facial cellulitis Hypertension Hyperlipemia Renal transplant, status post CKD stage 3 secondary to diabetes ESRD (end stage renal disease) History of IBS Asthma Sepsis due to methicillin susceptible Staphylococcus aureus Tests Performed Below is a partial list of the tests performed during your hospitalization. You may have had other tests and procedures not included in this list. Please discuss all test results with your provider. BASIC METABOLIC PANEL BUN Calcium Level CBC CBC w/ Differential Cdiff Rapid Toxin Assay Comprehensive Metabolic Panel COVID-19 RNA POC Creatinine Electrolytes Glucose Level GLUCOSE POC MAGNESIUM OSMOLALITY, SERUM Tacrolimus Level Urine Osmolality Urine Sodium Vancomycin Random CT Soft Tissue Neck W/ Contrast Primary Care Provider Zoraida Luo MD Advance Directive Health Care Proxy on File No Patient refuses to discuss No qualifying data available. Discharge Vitals Temperature: 98.1 DegF Height: 160 cm Pulse Rate: 85 bpm Weight: 76 kg Respiratory Rate: 18 br/min Body Mass Index:??29.69 kg/m2??High Systolic Blood Pressure:??168 mm Hg??High Body surface area: 1.84 Diastolic Blood Pressure:??108 mm Hg??High ?? Oxygen Saturation: 98 % ?? Studies Pending All tests and labs ordered during this hospital stay have been completed unless listed below. Pleasediscuss all pending results with your provider listed above in these instructions. ?? Add On Lab Order COVID-19 (2019 Novel Coronavirus) PCR Tacrolimus Level What to do next Instructions From Your Doctor Discharge Orders Scheduled Follow-Up Appointments Wednesday 3:00 PM EST ?? With: Where: [facility] Wednesday 4:30 PM EST ?? With: Dianna Veloz MD Where: [facility] [address] [place] [address]- You Need to Schedule the Following Appointments Follow Up with??Steve Padilla When?? Why: 1 -2 WEEKS- Renal will arrange follow up Where: [address] [place] [address]- Business (1) Follow Up with??Zoraida Luo When?? Why: 2 weeks Where: [address] [place] [address]- Business (1) Discharge Medications TITO MADDOX :1965 Visit Date:05/05/2022 Medications: Please continue your medications until treatment is completed or stopped by your provider. Medications not listed below should be discontinued. Discuss any questions related to medications with your provider. What How Much When Instructions Next Dose New Cephalexin (cephalexin monohydrate 500 mg oral capsule) 1 capsule Oral 3 times a day Duration: 6 Days start on ?? Pickup at [facility] 3 05/12/22 2pm Changed Aspirin (aspirin 81 mg oral tablet) 1 tab(s) Oral Daily 05/13/22 9am Changed Atorvastatin (atorvastatin 10 mg oral tablet) 1 tab(s) Oral Daily 05/13/22 9am Changed Calcitriol (calcitriol 0.5 mcg oral capsule) 1 capsule Oral Daily 05/13/22 9am Changed Duloxetine (duloxetine 20 mg oral enteric coated capsule) 1 capsule Oral Daily 05/13/22 9am Changed Insulin Glargine (Lantus Inj) 35 unit(s) Subcutaneous Injection Daily at Bedtime 05/12/22 9pm Changed Metoclopramide (metoclopramide 10 mg oral tablet) 1 tab(s) Oral Every 6 hours 05/12/22 6pm Changed PredniSONE (predniSONE 5 mg oral tablet) 1 tab(s) Oral Daily 05/13/22 9am Changed Tacrolimus (tacrolimus 1 mg oral capsule) 2 capsule Oral Every 12 hours Take 1 capsule everyday in the morning and 2 capsules everyday in the evening ?? 05/12/22 9pm Changed Trazodone (traZODone 50 mg oral tablet) 1.5 tab(s) Oral Daily at Bedtime 05/12/22 9pm Unchanged Acetaminophen (acetaminophen 500 mg oral tablet) 1 tab(s) Oral Every 4 hours as needed for as needed for fever NEEDED Unchanged Albuterol (albuterol 0.083% inhalation solution) 3 Milliliter Inhalation Every 6 hours as needed for for wheezing NEEDED Unchanged Albuterol (albuterol 0.083% inhalation solution) 3 Milliliter Nebulized inhalation Every 8 hours 05/12/22 2PM Unchanged Amlodipine (amLODIPine 10 mg oral tablet) 1 tab(s) Oral Daily Take instead of the 5mg tablets for blood pressure ?? 05/13/22 9AM Unchanged Cholecalciferol (Vitamin D3 50,000 intl units oral capsule) 1 capsule Oral Every week 05/13/22 9AM Unchanged Ergocalciferol (ergocalciferol 88408 iu oral capsule) 1 capsule Oral Every week Duration: 30 Days 05/13/22 9AM Unchanged Famotidine (famotidine 40 mg oral tablet) 1 tab(s) Oral Daily at Bedtime 05/12/22 9PM Unchanged Gabapentin (gabapentin 100 mg oral capsule) TAKE ONE CAPSULE AT BEDTIME ?? 05/12/22 9PM Unchanged Gabapentin (gabapentin 100 mg oral capsule) 1 capsule Oral 3 times a day 05/12/22 2PM Unchanged Insulin Aspart (Insulin Aspart FlexPen 100 units/ mL injectable solution) 10 unit(s) Subcutaneous Injection 3 times a day before meals INJECT 9 UNITS SUBCUTANEOUSLY WITH BREAKFAST, 9 UNITS SUBCUTANEOUSLY WITH LUNCH AND 7 UNITS SUBCUTANEOUSLY WITH DINNER ?? 05/12/22 BEFORE DINNER Unchanged Levothyroxine (levothyroxine 0.025 mg oral tablet) 2 tab(s) Oral Daily 05/13/22 6am Unchanged Lidocaine Topical (lidocaine 5% topical film) 1 patch(es) Topically Daily as needed for Pain , Mild remove after 12 hours ?? NEEDED Unchanged Loperamide (loperamide 2 mg oral capsule) 1 capsule Oral 3 times a day 05/12/22 5PM Unchanged Mupirocin Topical (mupirocin 2% topical ointment) 1 niraj Topically 3 times a day 05/12/22 9PM Unchanged NIFEdipine (NIFEdipine (Eqv-Adalat CC) 30 mg oral tablet, extended release) 1 tab(s) Oral Daily Duration: 30 Days 05/13/22 9AM Unchanged Pantoprazole (pantoprazole 40 mg oral delayed release tablet) 1 tab(s) Oral Twice a day 05/12/22 9PM Unchanged PEG Electrolyte Solution (PEG-3350 with Electrolytes (Eqv-NuLYTELY) oral powder for reconstitution) See instructions as directed ?? Unchanged Tamsulosin (tamsulosin 0.4 mg oral capsule) 1 capsule Oral Daily at Bedtime 05/12/22 9PM Unchanged Tramadol (traMADol 50 mg oral tablet) 1 tab(s) Oral Every 12 hours as needed for as needed for pain NEEDED Pharmacy Information [facility] 3: [address], [place] [id number] [phone] ?? What How Much When Comments Stop Taking Durable Medical Equipment (Freestyle John 2 reader) See instructions check BS 5 times daily, E 11.65 ?? Stop Taking Durable Medical Equipment (Freestyle John 2 sensors) See instructions change every 14 days, E 11.65 ?? Stop Taking Durable Medical Equipment (Off-loading boot (Right)) See instructions Right foto off-loading boot Dx: Right 5th toe amputation ?? Stop Taking Durable Medical Equipment (Pen [place], 32 G x 4 mm BD Ultra Fine III) See instructions Duration: 30 Days inject 4 times daily, E 11.65 ?? Stop Taking Miscellaneous Rx (Easy Touch 31 gauge x 3/ 16 needle) See instructions USE FOUR TIMES DAILY ?? Stop Taking Miscellaneous Rx (OFFLOADING SHOE) See instructions use as directed DX: right fifth toe amputation ?? Stop Taking Omeprazole (omeprazole 20 mg oral enteric coated capsule) 1 capsule Oral Daily Duration: 30 Days Test Results Below is a partial list of the most recent Laboratory test results done prior to this discharge. You may have had other tests and procedures not included in this list. Please discuss all test results with your provider. BASIC METABOLIC PANEL (05/06/2022) ???Sodium - 133 mmol/L???Potassium - 4.0 mmol/L???Chloride - 101 mmol/L???Bicarbonate Level - 20 mmol/L???Anion Gap - 12???Glucose Level - 194 mg/dL???BUN - 30 mg/dL???Creatinine-Blood - 2.0 mg/dL???Estimated GFR Creatinine - 39 ML/MIN/1.73 M2???Calcium - 9.0 mg/dL BUN (05/12/2022) ???BUN - 26 mg/dL Calcium Level (05/12/2022) ???Calcium - 9.6 mg/dL CBC (05/07/2022) ???WBC - 11.9 k/mm3???RBC - 4.50 m/mm3???Hgb - 12.5 Gm/dL???Hct - 38.1 %???MCV - 84.7 femtoliters???MCH - 27.8 pg???MCHC - 32.8 g/dL???Platelet Count - 217 k/mm3???RDW-SD - 42.4 femtoliters???MPV - 11.2 femtoliters???Nucleated RBC (Automated) - 0.0 #/100 WBC'S???Abs. NRBC - 0.0 k/mm3 CBC w/ Differential (05/11/2022) ???WBC - 6.5 k/mm3???RBC - 4.68 m/mm3???Hgb - 13.1 Gm/dL???Hct - 40.6 %???MCV - 86.8 femtoliters???MCH - 28.0 pg???MCHC - 32.3 g/dL???Platelet Count - 267 k/mm3???RDW-SD - 42.2 femtoliters???MPV - 10.9femtoliters???Nucleated RBC (Automated) - 0.0 #/100 WBC'S???Abs. NRBC - 0.0 k/mm3???Abs. Neut - 4.9 k /mm3???Abs. Lymph - 1.1 k/mm3???Abs. [place] - 0.4 k/mm3???Abs. Eo - 0.1 k/mm3???Abs. Baso - 0.0 k/mm3???Neut % - 75.2 %???Lymph % - 16.5 %???[place] % - 6.7 %???Eos % - 0.8 %???Baso % - 0.3 %???Imm Gran - 0.5 %???Abs. Imm Gran - 0.0 k/mm3 Cdiff Rapid Toxin Assay (05/11/2022) ???C.difficile Toxin - Negative. C.Difficile bacterial antigen and toxin not detected. A Comprehensive Metabolic Panel (05/05/2022) ???Sodium - 132 mmol/L???Potassium - 4.6 mmol/L???Chloride - 100 mmol/L???Bicarbonate Level - 19 mmol/L???Anion Gap - 13???Glucose Level - 494 mg/dL???BUN - 30 mg/dL???Creatinine-Blood - 2.2 mg/dL???Estimated GFR Creatinine - 35 ML/MIN/1.73 M2???Calcium - 8.9 mg/dL???Protein, Total - 6.3 Gm/dL???Albumi n - 3.9 Gm/dL???AG Ratio - 1.6???Alkaline Phosphatase - 118 units/L???AST (SGOT) - 13 units/L???ALT (SGPT) - 25 units/L???Bilirubin, Total - 0.6 mg/dL COVID-19 RNA POC (05/05/2022) ???COVID-19 POC Result - NEGATIVE Creatinine (05/12/2022) ???Creatinine-Blood - 2.4 mg/dL???Estimated GFR Creatinine - 30 ML/MIN/1.73 M2 Electrolytes (05/12/2022) ???Sodium - 137 mmol/L???Potassium - 4.9 mmol/L???Chloride - 100 mmol/L???Bicarbonate Level - 27 mmol/L???Anion Gap - 10 Glucose Level (05/12/2022) ???Glucose Level - 286 mg/dL GLUCOSE POC (05/12/2022) ???Glucose, POC - 206 mg/dL MAGNESIUM (05/06/2022) ???Magnesium - 1.8 mg/dL OSMOLALITY, SERUM (05/07/2022) ???Osmolality - 291 mOs/kg Tacrolimus Level (05/12/2022) ???Tacrolimus Level - 7.8 ng/mL Urine Osmolality (05/07/2022) ???Osmolality, Urine Random - 309 mOsm/kg Urine Sodium (05/07/2022) ???Sodium, Urine Random - 38 mmol/L Vancomycin Random (05/10/2022) ???Vancomycin Level, Random - 11.8 mg/L Immunizations This Visit Given Vaccine Dateinfluenza virus vaccine, inactivated 05/06/2022 Allergies (NKA means No Known Allergies) Benadryl??(itching) Dilaudid??(anaphylaxis) morphine??(itching) Problems Active Problems??(17) Acid reflux?? Cholycystectomy?? CKD (chronic kidney disease)?? -donor kidney transplant?? DIABETES MELLITUS?? Diabetes mellitus?? Diabetic foot infection?? End stage renal disease?? GERD (gastroesophageal reflux disease)?? History of parathyroidectomy?? Hyperlipidemia?? HYPERTENSION?? Hypertension?? Irritable Bowel?? Parathyroidectomy?? Peripheral neuropathy?? Secondary hyperparathyroidism of renal origin?? Education Materials Below is the list of Educational Leaflet Providered with your Discharge Instructions. Valuables and Belongings I fully understand and agree that [facility] accepts no responsibility for all my personal property including clothing, toilet articles, radios, jewelry, dentures, hearing aids, rings, money, or any other property that is in my possession or is brought to me after admission. I understand certain valuables may be placed in a hospital safe for a short period of time. I understand that the hospital is not liable for loss or damage due to accident, fire, or other natural occurrence while said property is in the safe. I accept full responsibility for any personal property that I keep with me, and will not hold the hospital responsible in case of loss or disappearance. I acknowledge that i have been encouraged to send valuables and belongings home. ?? Review of Valuable and Belonging List: With patient, With witness Date for Pt to Sign Valuables/Belongings: 05/09/22 14:19:00 ?? Other Discharge Information ?? Wound Assessment?? Wound Assessment?? Wound Location I: Face Wound Type I: Other: cellutilitis ?? Case Management Discharge Plan?? Discharge Plan?? Discharge Agency Information?? Discharge Level of Care at Discharge: Homehealth/VNA Name of Agency #1: [facility] ?? Discharge VNA/Hospice/Home Care: [facility] ??[facility] Blocklayer #1: [place], clinical intake, [facility] ?? Service Categories #1: Senior Living, Wound Care ?? Service Comments #1: [facility] is the agency that will provide you with home half-way visits for wound assessment ??& instruction on how to perform your own wound care. The agency will contact you directly to schedule your first home nursing visit. ?? Pulmonary Rehab Status?? Pulmonary Rehab Discharge Status?? Respiratory Rate: 18 br/min ? Common Emergency Awareness Tips IS IT A STROKE? Act FAST and Check for these signs: FACE Does the face look uneven? ARM Does one arm drift down? SPEECH Does their speech sound strange? TIME Call at any sign of stroke ?? Heart Attack Signs Chest discomfort: Most heart attacks involve discomfort in the center of the chest and lasts more than a few minutes, or goes away and comes back. It can feel like uncomfortable pressure, squeezing, fullness or pain. Discomfort in upper body: Symptoms can include pain or discomfort in one or both arms, back, neck, jaw or stomach. Shortness of breath: With or without discomfort. Other signs: Breaking out in a cold sweat, nausea, or lightheaded. Remember, MINUTES DO MATTER. If you experience any of these heart attack warning signs, call to get immediate medical attention! ?? Smoking can increase your chances of developing chronic health problems and can cause harmful effects to other family members in your house. If you smoke, you are strongly encouraged to quit. Please call [facility] [employer] at [phone] or [phone] ([phone] or log in to [email or web address] for referrals to smoking cessation programs. ?? The National Suicide Prevention Hotline is available 11/01 if you or someone you know needs to find areason to keep living. By calling 6-540-835-[employer] (0774) you'll be connected to a skilled, trained counselor at a crisis center in your area. INPATIENT DISCHARGE INSTRUCTIONS SIGNATURE PAGE TITO MADDOX Location:[facility] Registration Date and Time:05/05/2022 17:44 EST Primary Care Physician: Zoraida Luo MD, I TITO MADDOX, have received the above patient education materials/instructions and have verbalized understanding. If ambulance or transport services are being used I further acknowledge being given a choice of service. ?? If you need to contact me, please call me at this number: . Patient/Child Welfare Counselor Name: Patient/Child Welfare Counselor Signature: Relationship to Patient: Witness Name/Signature: Date: Yobany Bill MD: PERFORM, SIGN, VERIFY Event Display: Patient Education Handout Authored Date: Maria Elena Nicholas RN: PERFORM Event Display: Patient Education Leaflets Authored Date: Cellulitis ?? [id number] Celulitis La celulitis es grzegorz infecci??n de las capas profundas de la piel. Grzegorz herida en la piel odalis, por ejemplo, grzegorz cortada o un rasp??n, puede permitir la entrada de bacterias debajo de la piel. La celulitis produce enrojecimiento, hinchaz??n, calor y dolor en la piel afectada. Las zonas enrojecidas tienen un borde visible. Las lesiones abiertas pueden supurar (pus). Puede tener fiebre, escalofr??os y dolor. La celulitis se trata con antibi??ticos de siete a melissa d??as. Las llagas abiertas pueden limpiarsey cubrirse con grzegorz gasa h??oralia y fr??a. Los s??ntomas suelen desaparecer al cabo de jatin a dos d??asde tratamiento. Aseg??rese de lesli todos los antibi??ticos sonia la totalidad de los d??as indicados hasta que se terminen. Siga tomando los medicamentos, aunque los s??ntomas hayan desaparecido. Si no se trata, la celulitis puede entrar en el torrente sangu??jody y en los ganglios linf??ticos. Entonces, la infecci??n se puede diseminar por todo el organismo. Galax provoca grzegorz enfermedad grave. Cuidados en el hogar Siga los siguientes consejos: ??? Limite el uso de la parte del cuerpo afectada con celulitis.? Si la infecci??n est?? en holland pierna, mantenga la pierna elevada mientras est?? sentado. Ayuda a reducir la hinchaz??n. ??? Farina todos los antibi??ticos que le hayan recetado exactamente seg??n las indicaciones hasta terminarlos. No omita ninguna dosis, especialmente sonia los primeros siete d??as. Termine de elsli los medicamentos aun cuando los s??ntomas hayan disminuido. ??? Mantenga la bailey afectada limpia y seca. ??? L??vese las nimesh con agua y jab??n antes y despu??s de tocarse la piel. Cualquier persona que toque holland piel tambi??n deber?? lavarse las nimesh. No comparta toallas. ?? Visita de seguimiento Asista a las citas de seguimiento con holland proveedor de atenci??n m??dica o seg??n le hayan indicado.Si la infecci??n no desaparece con el primer antibi??freda, holland proveedor de atenci??n m??dica le recetar?? jatin diferente. ?? Cu??ndo buscar atenci??n m??dica Llame a holland proveedor de atenci??n m??dica de inmediato ante cualquiera de las siguientes situaciones: ??? Enrojecimiento que se est?? extendiendo ??? Hinchaz??n o dolor que empeoran ??? Secreci??n de la piel (pus) ??? Fiebre de 100.4?F (38.0?C) o superior, despu??s de 2??d??as de lesli antibi??ticos ?? Last Reviewed Date: 2021 ?? [id number] The Primary Data. Todos los derechos reservados. Esta informaci??n no pretende sustituir la atenci??n m??dica profesional. S??lo holland m??dico puede diagnosticar y tratar un problema de carlin. ??Cristopher ESPAÑA, Maria Elena: PERFORM Event Display: Patient Education Leaflets Authored Date: [id number] Cellulitis, Facial ?? [id number] Celulitis facial La celulitis es grzegorz infecci??n de las capas profundas de la piel. Grzegorz rotura de la piel odalis, por ejemplo, grzegorz cortada o un rasp??n, puede permitir la entrada de bacterias debajo de la piel. Tambi??n puede presentarse cuando se infecta un grano (gl??ndula kathryn??cea) o un fol??culo piloso. Si las bacterias alcanzan las capas profundas de la piel, puede ser un problema tricia. La celulitis en la pita esespecialmente peligrosa si afecta la piel alrededor de los ojos. La celulitis produce enrojecimiento, hinchaz??n, calor y dolor en la piel afectada. Las zonas enrojecidas tienen un borde visible. Puede tener fiebre, escalofr??os y dolor. La celulitis se trata con antibi??ticos de siete a melissa d??as. Los s??ntomas suelen desaparecer al cabo de jatin a dos d??as de tratamiento. Aseg??rese de lesli todos los antibi??ticos sonia la totalidad de los d??as indicados hasta que se terminen. Siga tomando los medicamentos, aunque los s??ntomashayan desaparecido. Si no se trata, la celulitis puede extenderse hasta el torrente sangu??jody y los ganglios linf??ticos. Entonces, la infecci??n se puede diseminar por todo el cuerpo. Galax provoca grzegorz enfermedad grave. Cuidados en el hogar Siga los siguientes consejos: ??? Farina todos los antibi??ticos que le hayan recetado exactamente seg??n las indicaciones hasta terminarlos. No omita ninguna dosis, especialmente sonia los primeros siete d??as. No deje de tomarlos, aun cuando los s??ntomas desaparezcan. ??? Utilice un pa??o empapadode agua fr??a (compresa fr??a) sobre el ney para disminuir la hinchaz??n y el dolor. Aseg??rese de enjuagar la compresa luego de usarla para evitar que se propague la infecci??n. ??? Puede usar paracetamol o ibuprofeno para aliviar el dolor. Si tiene enfermedad hep??jennifer o renal cr??anupam o alguna vez gagnon tenido grzegorz ??lcera estomacal o grzegorz hemorragia gastrointestinal, no tome estos medicamentos. Mariana hable con holland proveedor de atenci??n m??dica. ?? Visita de seguimiento Asista a los controles con holland proveedor de atenci??n m??dica seg??n le hayan indicado. Si la infecci??n no desaparece luego de terminar el primer antibi??freda, es posible que el proveedor le recete jatin diferente. ?? Cu??ndo llamar a holland proveedor de atenci??n m??dica Llame a holland proveedor de atenci??n m??dica de inmediato ante cualquiera de las siguientes situaciones: ??? Fiebre de 100.4?F (38?C) o superior luego de dos d??as de lesli antibi??ticos ??? Enrojecimiento que se est?? extendiendo ??? Hinchaz??n o dolor que empeoran ??? Secreci??n de la piel (pus)??? P??rpado cerrado por la hinchaz??n o que supura l??quido (pus) ??? Dolor de natividad o de anna que empeora ??? Somnolencia inusual o confusi??n ??? Convulsiones ??? Alteraciones en la visi??n ?? Last Reviewed Date: 2021 ?? [id number] The Primary Data. Todos los derechos reservados. Esta informaci??n no pretende sustituir la atenci??n m??dica profesional. S??lo holland m??dico puede diagnosticar y tratar un problema de carlin. ?? CT Neck W contrast IV [facility] , CIS S: TRANSCRIBE Stuart MD, Ledy N: KENDRA Smith MD, Ramon: SIGN Event Display: Result: Authored Date: [id number] CT Soft Tissue Neck W/ Contrast INDICATION/CLINICAL QUESTION: Worsening right facial swelling, concern for abscess. TECHNIQUE: Spiral CT neck with IV contrast formatted in 3 planes. 100 cc of Omnipaque 300 was administered intravenously. Weight-based protocol using automatic tube modulation was used to optimize exposure parameters. CTDIvol Body: 12.70 mGy, DLP Body: 374 mGy*cm. COMPARISON: CT head 02/14/2015. FINDINGS: Chyron Operator View Findings, Lines and Tubes: None. Lower intracranial contents: No abnormalities are seen involving the portions of brain and extra-axial spaces included on the exam. Facial soft tissues: Inflammation and soft tissue edema with mild skin thickening in the region of the right maxilla and zygoma. There is a 1.1 x 3.6 x 1.1 cm ill-defined density in the soft tissue theright cheek abutting the right masseter muscle (image 19 series 201, image 22 series 203). There wasalso prominent soft tissue in this region on CT head and CT cervical spine dated 02/14/2015, but it appears more pronounced and is denser than on that exam The adjacent buccal space appears normal. Cervical Lymph Nodes: Normal in size. Paranasal Sinuses: The portions included on the study are clear. Mucosa and parapharyngeal spaces: Mild mucosal thickening of the paranasal sinuses. Polyps/mucous retention cysts in the left maxillary sinus. The right palatine tonsil appears moderately enlarged witheffacement of the right side of the oropharynx . Vocal Cords: Normal. Salivary Glands: Normal. Vascular Structures: Grossly unremarkable. Thyroid Gland: Surgical clips posterior to the bilateral thyroid lobes. Upper mediastinum and lung apices: Normal. Bones: No focal abnormalities IMPRESSION: Mild skin thickening, with inflammation and soft tissue edema in the region of the right maxilla andzygoma, which may represent focal cellulitis. 3.6 cm soft tissue density in the soft tissue of the right cheek abutting the right masseter muscle,which may represent accessory parotid gland tissue, however, it appears denser and more pronounced than on an older exam and focal superimposed inflammatory changes cannot be completely excluded. Follow-up imaging for persistence or resolution is recommended. Moderately enlarged right palatine tonsil causing effacement of the right side of the oropharynx. Nodrainable abscess or fluid collection. I have personally reviewed the images and I agree with this report. WSN: [id number] Ordering Physician: Mulugeta Dyer Dictated By: Ramno Smith MD Dictated Date/Time: 05/05/22 4:36 pm Reviewed By: Ledy Davidson MD Signed By: Ledy Davidson MD Signed Date/Time: 05/05/22 4:41 pm Transcribed By: MADYSON Transcribed Date/Time: 05/05/22 4:27 pm Patient Care team information Care Team PersonnelName: Gokul RN, Yady Cee Position: S RN Member Role: Primary Care Nurse Name: Aidee Cole RN Position: S RN Member Role: Primary Care Nurse Name: Laya Taylor RN Position: S RN Member Role: Primary Care Nurse Name: Suze Villafuerte NP Position: [facility] Associate Professional Member Role: Primary Care Nurse Address: Address: [address] [place] [id number]- Name: Neetu Frost Position: [facility] PCO RN Member Role: Primary Care Nurse Name: Migel Cruz RN Position: [facility] RN Member Role: Primary Care Nurse Name: Cristina Spence Position: [facility] RN Member Role: Primary Care Nurse Name: Odin Rodriguez DO Position: [facility] Renal MD Member Role: [employer] Consulting Physician Address: Address: [address] [place], [place] [address] [place] [address]- Name: Frida Blanco RN Position: [facility] RN Member Role: Primary Care Nurse Name: Nik Esposito Position: [facility] Associate Professional Member Role: Lifetime Consulting Provider Address: Address: [address] [place] [address]- [place] Name: Jacoby Sood MD Position: [facility] Renal MD Member Role: Lifetime Consulting Physician Address: Address: [address] [place] [address] [address] [facility] [place] [address]- [place] Name: Ramonita Bardales RN Position: S RN Member Role: Primary Care Nurse Name: Cony Alberts RN Position: S RN Member Role: Primary Care Nurse Name: Zoraida Luo MD Position: Reference Physician Member Role: PCP Address: Address: [address] [place] [address]- Name: Kaylan Barker RN Position: [facility] Onco RN Member Role: Primary Care Nurse Name: Meghann Mccracken RN Position: [facility] Hospital Quality Nurse Member Role: Primary Care Nurse Name: Franc Jeong RN Position: [facility] SN RN Member Role: Primary Care Nurse Name: GageFaina Ryan Attending Position: [facility] ED Medicine MD Name: Mulugeta Dyer DO Position: [facility] Resident Member Role: ED Resident Address: Address: [address] [place] [address] [place] [address]- Name: Sarah Almaguer Position: [facility] ED OA Charge Member Role: ED Associate Name: Juvencio Loving LPN Position: [facility] ED RN W/OE and Tasks Member Role: Patient Care Provider Name: Allegra Horn Position: [facility] ED TA [facility] Member Role: Tubing Oiler Care Team Related PersonsName: VÍCTOR CHUA Address: [facility] [address] [place] [address] Name: WALKER CHUA Address: [place] [address]
--- OUTSIDE RECORDS SUMMARY | 2022-07-03 16:02 | XMS_ITS | Continuity of Care Document ---
:1965 Author Organization [facility] Address [address] [place] [address]- Care Team Providers Name Role Phone Chantal SEVERINO, Unruly Cee Primary Care Physician [phone] [facility]counter [facility] Date(s): 04/04/20 - 04/05/[address] [address]- [facility] Encounter Diagnosis Acute kidney injury (Final) - 04/03/20 Discharge Disposition: A-D/C Home Attending Physician: Karyn Peter DO Admitting Physician: Nicola Sigala MD Referring Physician: Not on Staff, Referring [...] (oldterm) 05/27/08 Given 1Early/Late Reason: Med Not [id number] Comment: [id number], Nov Early/Late Reason: Med Not [id number] Note: Given at PCP office Medications aspirin [...] 04/28/12 9:29:18 Start Date: 04/28/12 Status: Orderedergocalciferol 01217 iu oral capsule 1 capsule = 50,000 International_Units, By Mouth, Every week, # 5 capsule, 5 Refills, Maintenance, 12/12/14 11:30:10, 1 capsule By Mouth Every week,x30 days Start Date: 12/12/14 Stop Date: 06/10/15 Status: Orderedergocalciferol 77416 iu oral capsule 1 capsule = 50,000 [...] mL, 5 Refills, Maintenance, 06/29/19 15:21:00 EST, [facility] - , [place]ic, 159, cm, 06/29/19 14:55:00 EST, Height Start [...] 5 Refills, Maintenance, 06/29/19 15:20:00 EST, Solution, [facility] - , increased, 159, cm, [...] Date: 09/10/14 Stop Date: 09/05/15 Status: OrderedPen [place], 31 G x 5 mm BD Ultra [...] 04/05/20 13:39:00 EDT, Route to Pharmacy Electronically, [facility], 160, cm, 04/05/20 7:27:00 EDT, Height, 79.8, kg, 04/04/20 19:02... 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)2 HYPERTENSION(Confirmed) Active Secondary hyperparathyroidism of renal Active origin(Confirmed) 1Type [id number] induction Results Orders for Microbiology Reports Name Date Blood Culture 04/03/20 Blood Culture #2 04/03/20 Microbiology Reports TEST:Blood Culture STATUS:Unauthenticated BODY SITE: SOURCE:Blood COLLECTED DATE/TIME:04/03/20 9:00 PMBlood Culture SPECIMEN DESCRIPTION : BLOOD R AC SPECIAL REQUESTS : NONE CULTURE : NO GROWTH AFTER 48 HOURS REPORT STATUS : PRELIMINARY REPORT TEST:Blood Culture, Second Order STATUS:Unauthenticated BODY SITE: SOURCE:Blood COLLECTED DATE/TIME:04/03/20 9:00 PMBlood Culture, Second Order SPECIMEN DESCRIPTION : BLOOD L AC SPECIAL REQUESTS : NONE CULTURE : NO GROWTH AFTER 48 HOURS REPORT STATUS : PRELIMINARY REPORT Vital Signs Most recent to oldest 1 2 3 [Reference Range]: Height 160 cm 160 cm 160 cm (04/05/20 7:27 AM) (04/04/20 11:56 PM) (04/04/20 7:41 PM) Weight 78.5 kg 79.8 kg (04/05/20 5:49 AM) (04/04/20 10:55 AM) Oxygen Saturation [94-100 98 % 98 % 99 % %] (04/05/20 7:27 AM) (04/04/20 11:56 PM) (04/04/20 7:41 PM) Pulse Rate [55-90 bpm] 62 bpm 63 bpm 65 bpm (04/05/20 7:27 AM) (04/04/20 11:56 PM) (04/04/20 7:41 PM) Body Mass Index 31.17 [18.5-24.99] *>HHI* (04/04/20 10:55 AM) Blood Pressure 148/81 mm Hg 149/84 mm Hg 152/75 mm Hg [90-138/55-84 mm Hg] *H* *H* *H* (04/05/20 7:27 AM) (04/04/20 11:56 PM) (04/04/20 7:41 PM) Respiratory Rate [16-30 18 br/min 18 br/min 18 br/mi n br/min] (04/05/20 7:27 AM) (04/04/20 11:56 PM) (04/04/20 7:41 PM) Temperature [96.8-100.4 98.5 DegF 98.9 DegF 98.0 Deg F DegF] (04/05/20 7:27 AM) (04/04/20 11:56 PM) (04/04/20 7:41 PM) Mode of Delivery (Oxygen) Room air Room air Room a ir (04/05/20 7:27 AM) (04/04/20 11:56 PM) (04/04/20 7:41 PM) Blood pressure sites Arm, left Arm, left Arm, right (04/05/20 7:27 AM) (04/04/20 11:56 PM) (04/04/20 7:41 PM) Temperature Route Oral Oral Oral (04/05/20 7:27 AM) (04/04/20 11:56 PM) (04/04/20 7:41 PM) Dry Weight 79.8 kg (04/04/20 10:55 AM) Weight Obtained Via Standing scale (04/05/20 5:49 AM) Social History Social History Type Response Smoking Status Never smoker entered on: 09/07/14 Sex
--- OUTSIDE RECORDS SUMMARY | 2022-07-03 16:02 | XMS_ITS | Continuity of Care Document ---
:1965 Author Organization [facility] Address [address] [place] [address]- Care Team Providers Name Role Phone Chantal SEVERINO, Unruly Cee Primary Care Physician [place] [facility] [place]19/21 [facility] [address] [place] [address] Attending Physician: Kelley Wiggins MD Admitting Physician: Kelley Wiggins MD Allergies, Adverse Reactions, Alerts Substance Reaction Severity Status morphine itching Active Dilaudid anaphylaxis Active Benadryl1 itching Active 1itch increased Immunizations Given and Recorded Vaccine Date Status Refusal Reason influenza virus vaccine, inactivated1 04/05/20 Given influenza virus vaccine, inactivated2 03/14/09 Given pneumococcal 23-valent vaccine3 04/05/20 Given influenza virus vaccine, live4 04/18/14 Given Pneumococcal Vaccine (oldterm) 05/27/08 Given 1Early/Late Reason: Med Not [id number] Comment: [id number], Nov Early/Late Reason: Med Not [id number] Note: Given at PCP office Medications albuterol [...] opioid drug. Start Date: 12/10/20 Status: Orderedergocalciferol 80069 iu oral capsule 1 capsule = 50,000 [...] UNITS, # 30 mL, 1 Refills, Maintenance, [facility], 160, cm, 04/05/20 7:27:00 EDT, Height, [...] Refills, Maintenance, 03/20/21 13:35:00 EDT, ER Tablet, [facility], Partial fill upon patient request if [...] Secondary hyperparathyroidism of renal Active origin(Confirmed) 1Type [id number] induction Social History Social History Type Response Smoking Status Never smoker entered on: 09/07/14 Sex
--- OUTSIDE RECORDS SUMMARY | 2022-07-03 16:02 | XMS_ITS | Continuity of Care Document ---
:1965 Author Organization [facility] Address [address] [place] [address]- Care Team Providers Name Role Phone Zoraida Luo MD Primary Care Physician Encounter [facility] [id number] Date(s): 01/30/22 - 02/06/22 [facility] [address] [place] [address]- Attending Physician: Henrry Arteaga MD Admitting Physician: [...] 2 Refills, Maintenance, 01/06/22 9:53:00 EDT, Tablet, [facility], Partial fill upon patient request if [...] II opioid drug. Start Date: 12/31/21 Status: Orderedcalcitriol 0.5 mcg oral capsule 1 [...] recent to oldest [Reference Range]: 1 Weight 74.0 kg (01/30/22 10:24 AM) Pulse Rate [55-90 bpm] 78 bpm (01/30/22 10:24 AM) Blood Pressure [90-138/55-84 mm Hg] 110/70 mm Hg (01/30/22 10:24 AM) Blood pressure sites Arm, left (01/30/22 10:24 AM) Weight Obtained Via Patient/family stated (01/30/22 10:24 AM)
--- OUTSIDE RECORDS SUMMARY | 2022-07-03 16:02 | XMS_ITS | Continuity of Care Document ---
:1965 Author Organization [facility] Address [address] [place] [address]- Care Team Providers Name Role Phone Chantal ESVERINO, Unruly Cee Primary Care Physician [phone] Encounter [facility] Date(s): 11/28/20 - 12/28/20 [facility] [address] [place], [place] [address] Attending Physician: Bhakti Elam Allergies, Adverse Reactions, [...] (oldterm) 05/27/08 Given 1Early/Late Reason: Med Not [id number] Comment: [id number], Nov Early/Late Reason: Med Not [id number] Note: Given at PCP office Medications albuterol [...] opioid drug. Start Date: 12/10/20 Status: Orderedergocalciferol 80689 iu oral capsule 1 capsule = 50,000 [...] Date: 09/10/14 Stop Date: 09/05/15 Status: OrderedPen [place], 31 G x 5 mm BD Ultra [...] Secondary hyperparathyroidism of renal Active origin(Confirmed) 1Type [id number] induction Vital Signs Most recent to oldest [...]
[2022-07-03 16:03] LABS: MANUAL DIFF FLAG NO
--- OUTSIDE RECORDS SUMMARY | 2022-07-03 16:03 | XMS_ITS | Continuity of Care Document ---
:1965 Author Organization [facility] D marzena Address [address] [place] [address]- Care Team Providers Name Role Phone Chantal SEVERINO, Unruly Cee Primary Care Physician Encounter [facility] Date(s): 08/02/20 - 09/01/20 [facility] [address] [place] [id number] Attending Physician: AdmBhakti lopez Admitting Physician: Admtr, Tonio8 Referring Physician: Admtr, Ar8 Allergies, Adverse Reactions, [...] (oldterm) 05/27/08 Given 1Early/Late Reason: Med Not [id number] Comment: [id number], Nov Early/Late Reason: Med Not [id number] Note: Given at PCP office Medications aspirin [...] 04/28/12 9:29:18 Start Date: 04/28/12 Status: Orderedergocalciferol 10861 iu oral capsule 1 capsule = 50,000 International_Units, By Mouth, Every week, # 5 capsule, 5 Refills, Maintenance, 12/12/14 11:30:10, 1 capsule By Mouth Every week,x30 days Start Date: 12/12/14 Stop Date: 06/10/15 Status: Orderedergocalciferol 42942 iu oral capsule 1 capsule = 50,000 [...] mL, 1 Refills, Maintenance, 07/29/20 20:17:00 EST, [facility], [place], 160, cm, 04/05/20 7... Start Date: 07/29/20 [...] 2 Refills, Maintenance, 05/20/20 10:03:00 EST, Solution, [facility], increased, 160, cm, 04/05/20 7:27:00 [...] Date: 09/10/14 Stop Date: 09/05/15 Status: OrderedPen [place], 31 G x 5 mm BD Ultra [...] 04/05/20 13:39:00 EDT, Route to Pharmacy Electronically, [facility], 160, cm, 04/05/20 7:27:00 EDT, Height, 79.8, kg, 04/04/20 19:02... 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
--- OUTSIDE RECORDS SUMMARY | 2022-07-03 16:03 | XMS_ITS | Continuity of Care Document ---
:1965 Author Organization [facility] Address [address] [place] [address]- Care Team Providers Name Role Phone Valerio SEVERINO, Zoraida Primary Care Physician [place] [facility] [place](s): 05/04/22 - 06/03/22 [facility] [address] [place] [id number] Attending Physician: Bhakti Elam Admitting Physician: [...] (Td) 11/18/01 Recorded 1Early/Late Reason: Med Not [id number] Comment: [id number], 30 Nov Early/Late Reason: Med Not [id number] Note: Given at PCP office Medications acetaminophen [...] 2 Refills, Maintenance, 01/06/22 9:53:00 EDT, Tablet, [facility], Partial fill upon patient request [...] opioid drug. Start Date: 12/10/20 Status: Orderedergocalciferol 20073 iu oral capsule 1 capsule = 50,000 [...] Refills, Maintenance, 03/20/21 13:35:00 EDT, ER Tablet, [facility], Partial fill upon patient request [...] each, 0 Refills, Maintenance, 04/24/22 14:42:00 EDT, [facility], ok to sub for any [...] Confirmed Active hyperparathyroidism of renal origin 1Type [id number] induction Social History Social History Type Response Smoking Status Never smoker entered on: 09/07/14 Sex Patient Care team information Care Team PersonnelName: Gokul ESPAÑA, Yady Cee Position: [facility] RN Member Role: Primary Care Nurse Name: Aidee Cole RN Position: [facility] RN Member Role: Primary Care Nurse Name: Suze Villafuerte NP Position: [facility] Associate Professional Member Role: Primary Care Nurse Address: Address: [address] [place] [address]- [place] Name: Neetu Frost Position: [facility] PCO RN Member Role: Primary Care Nurse Name: Migel Cruz RN Position: [facility] RN Member Role: Primary Care Nurse Name: Cristina Spence Position: [facility] RN Member Role: Primary Care Nurse Name: Odin Rodriguez DO Position: [facility] Renal MD Member Role: Lifetime Consulting Physician Address: Address: [address] [place], [place] [address] [place] [place] [address]- [place] Name: Frida Blanco RN Position: [facility] RN Member Role: Primary Care Nurse Name: Nik Esposito Position: [facility] Associate Professional Member Role: Lifetime Consulting Provider Address: Address: [address] [place] [address]- [place] Name: aJcoby Sood MD Position: [facility] Renal MD Member Role: Lifetime Consulting Physician Address: Address: [address] [place] [address] [address] [facility] [place] [address]- Name: Ramonita Bardales RN Position: [facility] RN Member Role: Primary Care Nurse Name: Cony Alberts RN Position: [facility] SN RN Member Role: Primary Care Nurse Name: Zoraida Luo MD Position: Reference Physician Member Role: PCP Address: Address: [address] [place] [address]- [place] Name: Kaylan Barker RN Position: [facility] Onco RN Member Role: Primary Care Nurse Name: Meghann Mccracken RN Position: [facility] Drying Room Attendant Member Role: Primary Care Nurse Name: Franc Jeong RN Position: [facility] SN RN Member Role: Primary Care Nurse Care Team Related PersonsName: VÍCTOR CHUA Address: [address] [place] [address] Name: WALKER CHUA Address: [place] [address]
--- OUTSIDE RECORDS SUMMARY | 2022-07-03 16:03 | XMS_ITS | Continuity of Care Document ---
:1965 Author Organization [facility] Address [address] [place] [address]- Care Team Providers Name Role Phone Chantal SEVERINO, Unruly Cee Primary Care Physician [place] [facility] [place] 07/29/19 - 09/07/[address] [address]- [facility] Attending Physician: Siria Mendieta MD Admitting Physician: Siria Mendieta MD Referring Physician: Siria Mendieta MD Allergies, Adverse Reactions, Alerts Substance Reaction Severity Status morphine itching Active Dilaudid anaphylaxis Active Benadryl1 itching Active 1itch increased Immunizations Given and Recorded Vaccine Date Status Refusal Reason influenza virus vaccine, live1 04/18/14 Given influenza virus vaccine, inactivated2 03/14/09 Given Pneumococcal Vaccine (oldterm) 05/27/08 Given 1Admin Note: Given at PCP [id number] Comment: [id number], 30 VALE 10 Medications acetaminophen-HYDROcodone 325 mg-5 [...] 04/28/12 9:29:18 Start Date: 04/28/12 Status: Orderedergocalciferol 32430 iu oral capsule 1 capsule = 50,000 International_Units, By Mouth, Every week, # 5 capsule, 5 Refills, Maintenance, 12/12/14 11:30:10, 1 capsule By Mouth Every week,x30 days Start Date: 12/12/14 Stop Date: 06/10/15 Status: Orderedergocalciferol 37208 iu oral capsule 1 capsule = 50,000 [...] mL, 5 Refills, Maintenance, 06/29/19 15:21:00 EST, [facility] - , [place], 159, cm, 06/29/19 14:55:00 EST, Height Start [...] 5 Refills, Maintenance, 06/29/19 15:20:00 EST, Solution, [facility] - , increased, 159, cm, [...] Date: 09/10/14 Stop Date: 09/05/15 Status: OrderedPen [place], 31 G x 5 mm BD Ultra [...] Secondary hyperparathyroidism of renal Active origin(Confirmed) 1Type [id number] induction Social History Social History Type Response Smoking Status Never smoker entered on: 09/07/14 Sex
--- OUTSIDE RECORDS SUMMARY | 2022-07-03 16:03 | XMS_ITS | Continuity of Care Document ---
:1965 Author Organization [facility] marzena Address [address] [place] [address]- Care Team Providers Name Role Phone Chantal SEVERINO, Unruly Cee Primary Care Physician [facility]counter [facility] Date(s): 11/19/20 - 12/19/20 [facility] [address] [place] [id number] Attending Physician: AdmBhakti lopez Admitting Physician: Admtr, Ar8 Referring Physician: Admtr, [...] (oldterm) 05/27/08 Given 1Early/Late Reason: Med Not [id number] Comment: [id number], Nov Early/Late Reason: Med Not [id number] Note: Given at PCP office Medications albuterol [...] opioid drug. Start Date: 12/10/20 Status: Orderedergocalciferol 09095 iu oral capsule 1 capsule = 50,000 [...] Date: 09/10/14 Stop Date: 09/05/15 Status: OrderedPen [place], 31 G x 5 mm BD Ultra [...] Secondary hyperparathyroidism of renal Active origin(Confirmed) 1Type [id number] induction Social History Social History Type Response Smoking Status Never smoker entered on: 09/07/14 Sex
--- OUTSIDE RECORDS SUMMARY | 2022-07-03 16:03 | XMS_ITS | Continuity of Care Document ---
:1965 Author Organization [facility] Address [address] [place] [address]- Care Team Providers Name Role Phone Valeiro SEVERINO, Zoraida Primary Care Physician Encounter [facility] Date(s): 12/31/21 - 01/06/[address] [address] Encounter Diagnosis Diabetic foot ulcer (Final) - 01/06/22 Cellulitis of foot (Final) - 01/06/22 Discharge Disposition: A-D/C Home Attending Physician: Juliann Horn MD Admitting Physician: Andree Giraldo MD Referring Physician: Not on Staff, Referring MD Allergies, Adverse Reactions, Alerts No Known [...] 2 Refills, Maintenance, 01/06/22 9:53:00 EDT, Tablet, [facility], Partial fill upon patient request if the prescription is for a s... Start Date: 01/06/22 Status: OrderedamLODIPine 5 mg oral tablet 5 mg, Tablet, By Mouth, 01/06/22 9:00:00 EDT Start Date: 01/06/22 Stop Date: 01/06/22 Status: Completedamoxicillin 500 mg oral capsule = 500 mg, By Mouth, 2 times a day, Take the first tablet tonight, # 3 capsule, 0 Refills, Acute 01/07/22 23:59:00 EDT, 01/06/22 9:54:00 EDT, Capsule, [facility], Partial fill upon patient request if the prescription is for a sched... Start Date: 01/06/22 Stop Date: 01/07/22 Status: OrderedAspirin Low Dose 81 mg oral [...] 10:55:00 EDT, Supply Start Date: 01/06/22 Status: OrderedoxyCODONE 5 mg oral tablet 5 mg, 1, tablet, By Mouth, Every 6 hours, PRN, for 3 days, # 12 tablet, Refills 0, Tot. Refills 0, Acute 01/09/22 9:55:00 EDT, Pain , Severe, 01/06/22 9:55:00 EDT, Route to Pharmacy Electronically, [facility], Partial fill upon pa... Start Date: 01/06/22 Stop Date: 01/09/22 Status: OrderedoxyCODONE 5 mg oral tablet 5 mg, Tablet, By Mouth, Once, PRN for Pain , Severe, Routine, 01/04/22 22:48:00 EDT Start Date: 01/04/22 Stop Date: 01/06/22 Status: Completedpantoprazole 40 mg oral delayed release tablet 1 [...] Health Status Informant Diabetic foot infection(Confirmed) Active Results Orders for Microbiology Reports Name Date AFB Culture w/ AFB Smear, Nonrespiratory (ACID FAST CU LT,NON-RESP) 01/03/22 Anaerobic Culture (ANAEROBIC CULTURE) 01/03/22 Tissue Culture w/ Gram Smear (TISSUE/BIOPSY CULT.) 12/19 12/10 Anaerobic Culture 01/01/22 Wound Deep Culture w/ Gram Smear 01/01/22 Wound Deep Culture w/ Gram Smear (Culture Wound Deep w / Gram Smear) 01/01/22 Blood Culture 12/31/21 Blood Culture #2 12/31/21 Microbiology Reports TEST:Anaerobic Culture STATUS:Auth (Verified) BODY SITE: SOURCE:BONE COLLECTED DATE/TIME:01/03/22 8:30 AMAnaerobic Culture SPECIMEN DESCRIPTION : BONE RIGHT FIFTH TOE SPECIAL REQUESTS : NONE CULTURE : NO ANAEROBES ISOLATED REPORT STATUS : FINAL 01/05/2022TEST:Tissue/Biopsy Culture STATUS:Auth (Verified) BODY SITE: SOURCE:BONE COLLECTED DATE/TIME:01/03/22 8:30 AMTissue/Biopsy Culture SPECIMEN DESCRIPTION : BONE RIGHT FIFTH TOE SPECIAL REQUESTS : NONE GRAM STAIN : 1+ SQ.EPITHELIAL CELLS NO ORGANISMS SEEN CULTURE : 2+ STREPTOCOCCUS AGALACTIAE SERO GROUP B This isolate was identified using Maldi-TOF system These AST results were performed on the Microscan ID and AST system CRITICAL VALUE CALLED AND VERIFIED BY READBACK FOR: 2+ GROUP B STREP IN BONE TO M6, [place] [id number] BY TECH 6556 ON 01/04/22 AT 1105. REPORT STATUS : FINAL 01/05/2022 ORGANISM 2+ STREPTOCOCCUS AGALACTIAE SERO GROUP B This isolate was identified using Maldi-TOF system These AST results were performed on the Microscan ID and AST system METHOD MIN. INHIB. CONC. (MCG/ML) ERYTHROMYCIN SUSCEPTIBLE PENICILLIN SUSCEPTIBLETEST:AFB Culture w/AFB Smear, Non-Respiratory STATUS:Unauthenticated BODY SITE: SOURCE:BONE COLLECTED DATE/TIME:01/03/22 8:30 AMAFB Culture w/AFB Smear, Non-Respiratory SPECIMEN DESCRIPTION : BONE RIGHT FIFTH TOE SPECIAL REQUESTS : NONE DIRECT EXAM : NO ACID FAST BACILLI SEEN ON DIRECT SMEAR, TEST PERFORMED AT [facility] CULTURE : SPECIMEN SENT TO [facility], [place], [place] REPORT STATUS : PRELIMINARY REPORT TEST:Anaerobic Culture STATUS:Auth (Verified) BODY SITE: SOURCE:ULCER1 COLLECTED DATE/TIME:01/01/22 2:25 PMAnaerobic Culture SPECIMEN DESCRIPTION : ULCER TOE RT 5TH SPECIAL REQUESTS : NONE CULTURE : NO ANAEROBES ISOLATED REPORT STATUS : FINAL 01/03/2022TEST:Deep Wound Culture STATUS:Auth (Verified) BODY SITE: SOURCE:ULCER1 COLLECTED DATE/TIME:01/01/22 2:25 PMDeep Wound Culture SPECIMEN DESCRIPTION : ULCER TOE RT 5TH SPECIAL REQUESTS : NONE GRAM STAIN : 3+ RBC'S 1+ WHITE BLOOD CELLS NO ORGANISMS SEEN CULTURE : DUPLICATE ORDER, ACCOUNT CREDITED REPORT STATUS : FINAL 01/02/2022TEST:Deep Wound Culture STATUS:Auth (Verified) BODY SITE: SOURCE:SWAB1 COLLECTED DATE/TIME:01/01/22 2:25 PMDeep Wound Culture SPECIMEN DESCRIPTION : SWAB FOOT RT SPECIAL REQUESTS : NONE GRAM STAIN : 2+ WHITE BLOOD CELLS NO ORGANISMS SEEN CULTURE : 2+ STAPHYLOCOCCUS AUREUS. This isolate was identified using Maldi-TOF system 3+ GROUP B BETA HEMOLYTIC STREPTOCOCCI ISOLATED. SUSCEPTIBILITY TESTING NOT ROUTINELY PERFORMED ON THIS ISOLATE. This isolate was identified using Maldi-TOF system REPORT STATUS : FINAL 01/03/2022 ORGANISM 2+ STAPHYLOCOCCUS AUREUS. This isolate was identified using Maldi-TOF system METHOD MIN. INHIB. CONC. (MCG/ML) CIPROFLOXACIN SUSCEPTIBLE CLINDAMYCIN SUSCEPTIBLE ERYTHROMYCIN SUSCEPTIBLE LEVOFLOXACIN SUSCEPTIBLE OXACILLIN SUSCEPTIBLE PENICILLIN RESISTANT RIFAMPIN SUSCEPTIBLE RIFAMPIN RIFAMPIN SHOULD NOT BE USED ALONE FOR ANTIMICROBIAL RIFAMPIN THERAPY. TETRACYCLINE SUSCEPTIBLE TRIMETH/SULFAMETHOX SUSCEPTIBLE VANCOMYCIN SUSCEPTIBLETEST:Blood Culture STATUS:Auth (Verified) BODY SITE: SOURCE:Blood COLLECTED DATE/TIME:12/31/21 11:46 AMBlood Culture SPECIMEN DESCRIPTION : BLOOD R HAND OF SPECIAL REQUESTS : NONE CULTURE : NO GROWTH 5 DAYS. REPORT STATUS : FINAL 01/05/2022TEST:Blood Culture, Second Order STATUS:Auth (Verified) BODY SITE: SOURCE:Blood COLLECTED DATE/TIME:12/31/21 11:46 AMBlood Culture, Second Order SPECIMEN DESCRIPTION : BLOOD R HAND SPECIAL REQUESTS : NONE CULTURE : NO GROWTH 5 DAYS. REPORT STATUS : FINAL 2Radiology Reports Exam Date Time Procedure Performing Provider Status 12/31/21 12:44 PM Toe 2nd Right Foot Sierra Frost; Auth ([facility] ed) Notes:(Toe 2nd Right Foot) Reason For Exam: Other:RESULT: Toe 2nd Right Foot Examination: Right foot and right second digit performed on 12/31/2021. History: Hx of Present Illness: Pt was sent from wound clinic [place] for 5th right toe pain and swelling along with discoloration , ? gangreene per pt. Pt is c o pain in right 5th toe and chest pain; Reason: Other:; Clinical Question(s): Other: Findings: A frontal view of the right foot and oblique and lateral views of the second digit are submitted. No fractures, dislocations, or erosions are seen. The soft tissues are unremarkable. Vascular calcification is identified. IMPRESSION: There is no acute osseous abnormality. WSN: [id number] Ordering Physician: Phil Glynn Dictated By: Misty Francois MD Dictated Date/Time: 12/31/21 12:50 p Reviewed By: Misty Francois MD Signed By: Misty Francois MD Signed Date/Time: 12/31/21 12:50 pm Transcribed By: MADYSON Transcribed Date/Time: 12/31/21 12:49 pm Exam Date Time Procedure Performing Provider Status 12/31/21 12:44 PM Chest 2 Views Frontal and Lat Jayden Frost [facility] (Verified) Notes:(Chest 2 Views Frontal and Lat) Reason For Exam: Chest Pain;Other:RESULT: Chest 2 Views Frontal and Lat Examination: Chest performed on 12/31/2021. History: Chest pain. Findings: Frontal and lateral views of the chest are submitted without similar study for comparison. The cardiac and mediastinal silhouettes are within normal limits. The lungs are clear. The osseous and soft tissue structures are unremarkable. Vascular stents overlie the left upper extremity. Impression: There is no acute cardiopulmonary disease. WSN: [id number] Ordering Physician: Phil Glynn Dictated By: Misty Francois MD Dictated Date/Time: 12/31/21 12:49 p Reviewed By: Misty Francois MD Signed By: Misty Francois MD Signed Date/Time: 12/31/21 12:49 pm Transcribed By: MADYSON Transcribed Date/Time: 12/31/21 12:48 pm Vital Signs Most recent to oldest 1 2 3 [Reference Range]: Oxygen Saturation [94-100 99 % 98 % 98 % %] (01/06/22 4:14 AM) (01/05/22 7:50 PM) (01/05/22 2:0 0 PM) Pulse Rate [55-90 bpm] 63 bpm 83 bpm 89 bpm (01/06/22 4:14 AM) (01/05/22 7:50 PM) (01/05/22 2:0 0 PM) Blood Pressure 138/80 mm Hg 148/84 mm Hg 150/95 mm Hg [90-138/55-84 mm Hg] (01/06/22 9:53 AM) *H* *H* (01/06/22 4:14 AM) (01/05/22 7:50 PM) Respiratory Rate [16-30 16 br/min 16 br/min 20 br/mi n br/min] (01/06/22 11:24 AM) (01/06/22 9:54 AM) (01/06/22 4: 14 AM) Temperature [96.8-100.4 97.7 DegF 98.0 DegF 98.3 Deg F DegF] (01/06/22 4:14 AM) (01/05/22 7:50 PM) (01/05/22 2:0 0 PM) Liters per Minute 1 L/min 1 L/min 0 L/min (01/03/22 11:57 AM) (01/03/22 10:09 AM) (12/31/21 5 :25 PM) Mode of Delivery (Oxygen) Room air Room air Room a ir (01/06/22 4:14 AM) (01/05/22 7:50 PM) (01/05/22 2:0 0 PM) Blood pressure sites Arm, right Arm, right Arm, right (01/06/22 4:14 AM) (01/05/22 7:50 PM) (01/05/22 2:0 0 PM) Temperature Route Oral Oral Oral (01/06/22 4:14 AM) (01/05/22 7:50 PM) (01/05/22 2:0 0 PM) Dry Weight 74.8 kg (01/03/22 7:38 AM) Dry Weight Obtained Via Patient/family stated (01/03/22 7:38 AM)
--- OUTSIDE RECORDS SUMMARY | 2022-07-03 16:03 | XMS_ITS | Continuity of Care Document ---
:1965 Author Organization [facility] Address [address] [place] [address]- Care Team Providers Name Role Phone Not on Staff, PCP Primary Care Physician Unavailable [place] [facility] Date(s): 09/01/21 - 10/01/21 [facility] [address] [place] [address]- Attending Physician: Bhakti Elam Admitting Physician: Bhakti [...] (Td) 11/18/01 Recorded 1Early/Late Reason: Med Not [id number] Comment: [id number], Nov Early/Late Reason: Med Not [id number] Note: Given at PCP office Medications albuterol [...] Dry Weight Start Date: 05/06/21 Status: Orderedergocalciferol 66126 iu oral capsule 1 capsule = 50,000 [...] UNITS, # 30 mL, 1 Refills, Maintenance, [facility], 160, cm, 04/05/20 7:27:00 EDT, Height, [...] Refills, Maintenance, 03/20/21 13:35:00 EDT, ER Tablet, [facility], Partial fill upon patient request if [...] Secondary hyperparathyroidism of renal Active origin(Confirmed) 1Type [id number] induction Social History Social History Type Response Smoking Status Never smoker entered on: 09/07/14 Sex
--- OUTSIDE RECORDS SUMMARY | 2022-07-03 16:03 | XMS_ITS | Continuity of Care Document ---
:1965 Author Organization [facility] Address [address] [place] [address]- Care Team Providers Name Role Phone Chantal SEVERINO, Unruly Cee Primary Care Physician Encounter [facility] Date(s): 12/10/20 - 12/13/[address] [address] Discharge Disposition: A-Transfer VNA/Home Health Attending Physician: Campos Isidro MD Admitting Physician: Amari Mabry MD Referring Physician: Not on Staff, Referring [...] (oldterm) 05/27/08 Given 1Early/Late Reason: Med Not [id number] Comment: [id number], Nov Early/Late Reason: Med Not [id number] Note: Given at PCP office Medications albuterol [...] opioid drug. Start Date: 12/10/20 Status: Orderedergocalciferol 73918 iu oral capsule 1 capsule = 50,000 [...] oral capsule 100 mg, Capsule, By Mouth, 12/13/20 9:00:00 EDT Start Date: 12/13/20 Stop Date: 12/13/20 Status: CompletedGlucagon Emergency Kit See Instructions, PRN, # 2 [...] Date: 09/10/14 Stop Date: 09/05/15 Status: OrderedPen [place], 31 G x 5 mm BD Ultra [...] Secondary hyperparathyroidism of renal Active origin(Confirmed) 1Type [id number] induction Results Radiology Reports Exam Date Time Procedure Performing Provider Status 12/10/20 7:38 AM Chest 2 Views Frontal and Lat Jayden Mckenzie MA odified Notes:(Chest 2 Views Frontal and Lat) Reason For Exam: Shortness of Breath RESULT: Chest 2 Views Frontal and Lat Chest 2 Views Frontal and Lat CLINICAL INDICATION: Shortness of breath. COMPARISON: Chest x-ray, 12/05/2016. FINDINGS: The cardiac silhouette is within normal limits. Hilar and mediastinal contours are normal.The lungs are clear. There is no pleural effusion, pneumothorax, or evidence of CHF. No acute osseous abnormality is noted. IMPRESSION: No acute cardiopulmonary process WSN: [id number] Ordering Physician: Elver Reilly Dictated By: Chanell Jennings MD Dictated Date/Time: 12/10/20 8:14 am Reviewed By: Chanell Jennings MD Signed By: Chanell Jennings MD Signed Date/Time: 12/10/20 8:14 am Transcribed By: MADYSON Transcribed Date/Time: 12/10/20 8:14 am Vital Signs Most recent to oldest 1 2 3 [Reference Range]: Oxygen Saturation [94-100 %] 100 % 99 % 100 % (12/13/20 8:00 AM) (12/13/20 3:00 AM) (12/12/20 11: 00 PM) Pulse Rate [55-90 bpm] 65 bpm 71 bpm 68 bpm (12/13/20 8:00 AM) (12/13/20 3:00 AM) (12/12/20 11: 00 PM) Blood Pressure [90-138/55-84 110/66 mm Hg 103/66 mm Hg 126 /74 mm Hg mm Hg] (12/13/20 8:00 AM) (12/13/20 3:00 AM) (12/12/20 11: 00 PM) Respiratory Rate [16-30 18 br/min 18 br/min 18 br/mi n br/min] (12/13/20 9:51 AM) (12/13/20 8:51 AM) (12/13/20 8:0 0 AM) Temperature [96.8-100.4 DegF] 97.3 DegF 97.9 DegF 98 .1 DegF (12/13/20 8:00 AM) (12/13/20 3:00 AM) (12/12/20 11: 00 PM) Mode of Delivery (Oxygen) Room air Room air Room a ir (12/13/20 8:00 AM) (12/13/20 3:00 AM) (12/12/20 11: 00 PM) Blood pressure sites Arm, right Arm, right Arm, right (12/13/20 8:00 AM) (12/13/20 3:00 AM) (12/12/20 11: 00 PM) Temperature Route Oral Oral Oral (12/13/20 8:00 AM) (12/13/20 3:00 AM) (12/12/20 11: 00 PM) Social History Social History Type Response Smoking Status Never smoker entered on: 09/07/14 Sex
--- OUTSIDE RECORDS SUMMARY | 2022-07-03 16:03 | XMS_ITS | Continuity of Care Document ---
:1965 Author Organization [facility] Address [address] [place] [address]- Care Team Providers Name Role Phone Zoraida Luo MD Primary Care Physician [place] [facility] Date(s): 04/24/22 - 05/24/22 [facility] [address] [place] [address]- Attending Physician: Bhakti Elam Admitting Physician: Bhakti [...] (Td) 11/18/01 Recorded 1Early/Late Reason: Med Not [id number] Comment: [id number], Nov Early/Late Reason: Med Not [id number] Note: Given at PCP office Medications acetaminophen [...] 2 Refills, Maintenance, 01/06/22 9:53:00 EDT, Tablet, [facility], Partial fill upon patient request [...] opioid drug. Start Date: 12/10/20 Status: Orderedergocalciferol 24611 iu oral capsule 1 capsule = 50,000 [...] Refills, Maintenance, 03/20/21 13:35:00 EDT, ER Tablet, [facility], Partial fill upon patient request [...] each, 0 Refills, Maintenance, 04/24/22 14:42:00 EDT, [facility], ok to sub for any [...] Confirmed Active hyperparathyroidism of renal origin 1Type [id number] induction Social History Social History Type Response Smoking Status Never smoker entered on: 09/07/14 Sex Patient Care team information Care Team PersonnelName: Gokul RN, Yady J Position: [facility] RN Member Role: Primary Care Nurse Name: Aidee Cole RN Position: [facility] RN Member Role: Primary Care Nurse Name: Suze Villafuerte NP Position: [facility] Associate Professional Member Role: Primary Care Nurse Address: Address: [address] [place] [address]- [place] Name: Neetu Frost Position: [facility] PCO RN Member Role: Primary Care Nurse Name: Migel Cruz RN Position: [facility] RN Member Role: Primary Care Nurse Name: Cristina Spence Position: [facility] RN Member Role: Primary Care Nurse Name: Odin Rodriguez DO Position: [facility] Renal MD Member Role: Lifetime Consulting Physician Address: Address: [address] [place] [address] [address] [facility] [place] [address]- [place] Name: Frida Blanco RN Position: [facility] RN Member Role: Primary Care Nurse Name: Nik Esposito Position: [facility] Associate Professional Member Role: Lifetime Consulting Provider Address: Address: [address] [place] [address]- [place] Name: Jacoby Sood MD Position: [facility] Renal MD Member Role: Lifetime Consulting Physician Address: Address: [address] [place] [address] [address] [facility] [place], [place] [address]- [place] Name: Ramonita Bardales RN Position: [facility] RN Member Role: Primary Care Nurse Name: Cony Alberts RN Position: [facility] SN RN Member Role: Primary Care Nurse Name: Zoraida Luo MD Position: Reference Physician Member Role: PCP Address: Address: [address] [place] [address]- [place] Name: Kaylan Barker RN Position: [facility] Onco RN Member Role: Primary Care Nurse Name: Meghann Mccracken RN Position: [facility] Rn Practitioner Member Role: Primary Care Nurse Name: Franc Jeong RN Position: [facility] SN RN Member Role: Primary Care Nurse Care Team Related PersonsName: VÍCTOR CHUA Address: [address] [place] [address] Name: WALKER CHUA Address: [place] [address]
--- OUTSIDE RECORDS SUMMARY | 2022-07-03 16:03 | XMS_ITS | Continuity of Care Document ---
:1965 Author Organization [facility] Address [address] [place] [address]- Care Team Providers Name Role Phone Not on Staff, PCP Primary Care Physician Unavailable Encounter [facility] Date(s): 01/09/22 - 02/08/[address] [facility] [address] [address]- Attending Physician: Bhakti Elam Admitting Physician: Bhakti Elam Referring Physician: Admtr, Ar8 Allergies, Adverse Reactions, [...] (Td) 11/18/01 Recorded 1Early/Late Reason: Med Not [id number] Comment: [id number], Nov Early/Late Reason: Med Not [id number] Note: Given at PCP office Medications albuterol [...] Dry Weight Start Date: 05/06/21 Status: Orderedergocalciferol 76041 iu oral capsule 1 capsule = 50,000 [...] 9 mL, 11 Refills, 10/07/21 15:10:00 EDT, [facility], 160, cm, 09/26/21 13:56:00 EDT, Height, 75, kg, 07/03/21 16:19:00 EST, Dry Weight Start Date: 10/07/21 Status: OrderedLantus 100 u/ml subcutaneous solution See Instructions, Subcutaneous Injection, INject 44 units once daily, E 11.65, # 15 mL, 11 Refills, Maintenance, 10/07/21 15:12:00 EDT, [facility], Partial fill upon patient requestif [...] Refills, Maintenance, 03/20/21 13:35:00 EDT, ER Tablet, [facility], Partial fill upon patient request [...] Date: 09/10/14 Stop Date: 09/05/15 Status: OrderedPen [place], 32 G x 4 mm BD Ultra [...] Secondary hyperparathyroidism of renal Active origin(Confirmed) 1Type [id number] induction Social History Social History Type Response Smoking Status Never smoker entered on: 09/07/14 Sex
--- OUTSIDE RECORDS SUMMARY | 2022-07-03 16:03 | XMS_ITS | Continuity of Care Document ---
:1965 Author Organization [facility] Address [address] [place] [address]- Care Team Providers Name Role Phone Chantal SEVERINO, Unruly Cee Primary Care Physician Encounter [facility] Date(s): 07/31/19 - 07/31/[address] [address]- [facility] Attending Physician: Zana SEVERINO, Alejandro Allergies, Adverse Reactions, Alerts Substance Reaction Severity Status morphine itching Active Dilaudid anaphylaxis Active Benadryl1 itching Active 1itch increased Immunizations Given and Recorded Vaccine Date Status Refusal Reason influenza virus vaccine, live1 04/18/14 Given influenza virus vaccine, inactivated2 03/14/09 Given Pneumococcal Vaccine (oldterm) 05/27/08 Given 1Admin Note: Given at PCP [id number] Comment: [id number], NOV 28 Medications acetaminophen-HYDROcodone 325 mg-5 mg oral tablet [...] 04/28/12 9:29:18 Start Date: 04/28/12 Status: Orderedergocalciferol 46590 iu oral capsule 1 capsule = 50,000 International_Units, By Mouth, Every week, # 5 capsule, 5 Refills, Maintenance, 12/12/14 11:30:10, 1 capsule By Mouth Every week,x30 days Start Date: 12/12/14 Stop Date: 06/10/15 Status: Orderedergocalciferol 34721 iu oral capsule 1 capsule = 50,000 [...] mL, 5 Refills, Maintenance, 06/29/19 15:21:00 EST, [facility] - , [place]ian, 159, cm, 06/29/19 14:55:00 EST, Height Start [...] 5 Refills, Maintenance, 06/29/19 15:20:00 EST, Solution, [facility] - , increased, 159, cm, 06/29/19 [...] Date: 09/10/14 Stop Date: 09/05/15 Status: OrderedPen [place], 31 G x 5 mm BD Ultra [...] Secondary hyperparathyroidism of renal Active origin(Confirmed) 1Type [id number] induction Social History Social History Type Response Smoking Status Never smoker entered on: 09/07/14 Sex
--- OUTSIDE RECORDS SUMMARY | 2022-07-03 16:03 | XMS_ITS | Continuity of Care Document ---
:1965 Author Organization [facility] Address [address] [place] [address]- Care Team Providers Name Role Phone Not on Staff, PCP Primary Care Physician Unavailable Encounter [facility] Date(s): 09/26/21 - 10/26/21 [facility] [address] [place] [address] Attending Physician: AdmBhakti lopez Admitting Physician: AdmtrBhakti Referring Physician: Admtr, Ar8 [...] (Td) 11/18/01 Recorded 1Early/Late Reason: Med Not [id number] Comment: [id number], Nov Early/Late Reason: Med Not [id number] Note: Given at PCP office Medications albuterol [...] Dry Weight Start Date: 05/06/21 Status: Orderedergocalciferol 59770 iu oral capsule 1 capsule = 50,000 [...] 9 mL, 11 Refills, 10/07/21 15:10:00 EDT, [facility], 160, cm, 09/26/21 13:56:00 EDT, Height, 75, kg, 07/03/21 16:19:00 EST, Dry Weight Start Date: 10/07/21 Status: OrderedLantus 100 u/ml subcutaneous solution See Instructions, Subcutaneous Injection, INject 44 units once daily, E 11.65, # 15 mL, 11 Refills, Maintenance, 10/07/21 15:12:00 EDT, [facility], Partial fill upon patient requestif [...] Refills, Maintenance, 03/20/21 13:35:00 EDT, ER Tablet, [facility], Partial fill upon patient request [...] Date: 09/10/14 Stop Date: 09/05/15 Status: OrderedPen [place], 32 G x 4 mm BD Ultra [...] Secondary hyperparathyroidism of renal Active origin(Confirmed) 1Type [id number] induction Social History Social History Type Response Smoking Status Never smoker entered on: 09/07/14 Sex
--- OUTSIDE RECORDS SUMMARY | 2022-07-03 16:03 | XMS_ITS | Continuity of Care Document ---
:1965 Author Organization [facility] Address [address] [place] [id number]- Care Team Providers Name Role Phone Chantal SEVERINO, Unruly Cee Primary Care Physician [phone] Encounter [facility] Date(s): 10/22/20 - 11/21/20 [facility] [address] [place] [id number] Allergies, Adverse Reactions, Alerts Substance Reaction Severity Status morphine itching Active Dilaudid anaphylaxis Active Benadryl1 itching Active 1itch increased Immunizations Given and Recorded Vaccine Date Status Refusal Reason influenza virus vaccine, inactivated1 04/05/20 Given influenza virus vaccine, inactivated2 03/14/09 Given pneumococcal 23-valent vaccine3 04/05/20 Given influenza virus vaccine, live4 04/18/14 Given Pneumococcal Vaccine (oldterm) 05/27/08 Given 1Early/Late Reason: Med Not [id number] Comment: [id number], Nov Early/Late Reason: Med Not [id number] Note: Given at PCP office Medications aspirin [...] 04/28/12 9:29:18 Start Date: 04/28/12 Status: Orderedergocalciferol 10349 iu oral capsule 1 capsule = 50,000 International_[employer]its, By Mouth, Every week, # 5 capsule, 5 Refills, Maintenance, 12/12/14 11:30:10, 1 capsule By Mouth Every week,x30 days Start Date: 12/12/14 Stop Date: 06/10/15 Status: Orderedergocalciferol 58640 iu oral capsule 1 capsule = 50,000 [...] mL, 1 Refills, Maintenance, 07/29/20 20:17:00 EST, [facility], [place], 160, cm, 04/05/20 7... Start Date: 07/29/20 [...] 2 Refills, Maintenance, 05/20/20 10:03:00 EST, Solution, [facility], increased, 160, cm, 04/05/20 7:27:00 [...] Date: 09/10/14 Stop Date: 09/05/15 Status: OrderedPen [place], 31 G x 5 mm BD Ultra [...] 04/05/20 13:39:00 EDT, Route to Pharmacy Electronically, [facility], 160, cm, 04/05/20 7:27:00 EDT, Height, 79.8, kg, 04/04/20 19:02... 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
[2022-07-03 16:07] LABS: Basophils Percent Auto 0.4 % (0-2); Eosinophils Percent Auto 0.2 % (0-4); Hematocrit 45.4 % (42.0-52.0); Imm Gran Abs Auto 0.08 X10*3/uL (0.00-0.03); Imm Gran Pct Auto 0.8 % (0.0-0.4); Lymphocytes Absolute Auto 0.9 X10*3/uL (1.2-4.9); Lymphocytes Percent Auto 9.1 % (20-40); Mean Corpuscular Hemoglobin 27.7 pg (27.0-33.0); Mean Corpuscular Volume 83.8 fL (80.0-98.0); Mean Platelet Volume 10.5 fL (9.4-12.4); Monocytes Absolute Auto 0.3 X10*3/uL (0.1-1.2); Monocytes Percent Auto 3.4 % (2-11); Neutrophils Absolute Auto 8.5 x10*3/uL (2.0-8.3); Neutrophils Percent Auto 86.1 % (45-73); Platelet Count 277 X10*3/uL (160-400); Red Blood Count 5.42 X10*6/uL (4.60-5.80); Red Cell Distribution Width 13.5 % (11.0-16.0); White Blood Count 9.9 X10*3/uL (4.8-10.8)
[2022-07-03 16:16] LABS: INTERNATIONAL NORM RATIO 0.8 (0.9-1.1); Prothrombin Time 9.5 SEC (10.0-13.1)
[2022-07-03 16:23] LABS: Alanine Aminotransferase 42 U/L (0-40); Albumin Level 4.2 g/dL (3.5-5.0); Alkaline Phosphatase 127 U/L (39-117); Anion Gap 14 (12-20); Aspartate Amino Transferase 22 U/L (5-37); Bilirubin Total 0.5 mg/dL (0.0-1.0); Blood Urea Nitrogen 33 mg/dL (9-16); Calcium 9.3 mg/dL (8.4-10.2); Carbon Dioxide 20 mmol/L (22-29); Chloride 109 mmol/L (96-108); Estimated Glomerular Filt Rate 28; Glucose Random 185 mg/dL (60-115); Lipase 31 U/L (8-78); Potassium 3.7 mmol/L (3.3-5.1); Sodium 139 mmol/L (135-145); Total Protein 7.4 g/dL (6.5-8.0)
[2022-07-03 16:47] LABS: Magnesium 1.9 mg/dL (1.6-2.6)
[2022-07-03 17:12] LABS: COVID-19 Test Negative (Negative); IDNOW Serial# BCCEAD1C
[2022-07-03] MEDS: 0.9 % Sodium Chloride 1,000 ML 999 ML IV (17:37)
[2022-07-03] MEDS: ondansetron HCL 4 MG/2 ML VIAL IVPUSH (17:38)
[2022-07-03] MEDS: Famotidine/PF 20 MG/2 ML VIAL IVPUSH (17:39)
[2022-07-03] MEDS: Magnesium Hydrox/Alum Hydrox 30 ML ORAL.SUSP PO (17:39)
[2022-07-03 17:48] VITALS: BP 142/81; PULSE 92; RESP 20; TEMP 36.7; O2SAT 97
[2022-07-03 18:07] LABS: TSH reflex Free T4 2.99 uIU/mL (0.32-4.0)
[2022-07-03 19:44] VITALS: BP 149/102; PULSE 83; RESP 16; TEMP 36.7; O2SAT 99
[2022-07-03 20:10] LABS: Glucose, Whole Blood 157 mg/dL (60-115)
[2022-07-03 20:22] LABS: Troponin-I High Sensitivity 25.6 ng/L (<3.5-35.0)
[2022-07-03] MEDS: amLODIPine Besylate 5 MG TABLET PO (21:14)
== END 2022-07-03 21:23 | disposition home or self-care (01) ==
PROVIDERS: Nurse Practitioner Family; Physician Assistant; Emergency Provider Emergency Medicine; PCP Family Medicine
DX: R07.89 Other chest pain (principal); R00.2 Palpitations; R11.2 Nausea with vomiting, unspecified; R10.9 Unspecified abdominal pain; E11.21 Type 2 diabetes mellitus with diabetic nephropathy; Z20.822 Contact with and (suspected) exposure to COVID-19; Z20.828 Contact with and (suspected) exposure to other viral communicable diseases; Z79.899 Other long term (current) drug therapy; Z79.4 Long term (current) use of insulin
CPT/HCPCS: 36415; 71046; 74176; 80053; 82947; 83690; 83735; 84443; 84484; 85025; 85610; 87635; 93005; 96361; 96374; 96375; 99284; 99285; J2405

== ENCOUNTER → 2022-08-18 07:55 | Outpatient (REF) | payer MEDICAID, SELFPAY ==
--- NOTE | 2022-08-18 08:00 | CA_ITS ---
Acquisition Time: 2022-08-18 08:40:13 Total Exercise Time: 00:06:14 Test Indications: CP Medications: SEE H Protocol: KIESHA Max HR: 122 BPM 74% of Pred: 163 BPM Max BP: 140/088 mmHG Max Work Load: 5.7 METS Exercise stress test using Kiesha protocol total of 6 min 14 sec. METS 5.7 and TAPHR only up to 74%. Second stage held d/t patient's knee pain. Speed and incline manually increased. EKG with occasiional PAC's and PVC's no ischemic changes xseen however HR slow and not going up. Pt will need to have different stress test to evaluate for CAD and CP. Normotensive response to exercise. Test reviewed with Dr. Cabrera. Referred By: Zoraida Luo Overread By: Julia Walsh NP
--- NOTE | 2022-08-18 08:07 | HM_ITS ---
Conclusion: 1. Patient was monitored for total period of 2 days 2. Baseline was normal sinus rhythm with average heart of 85 beats per minute 3. No significant pauses noted 4. Total of 7157 PACs accounting for 2.9% total beats account for frequent PACs 5. No patient reported events MTDD
== END ==
LOC: HO.CARD 07:55
PROVIDERS: PCP Family Medicine; Visit Provider Family Medicine
DX: R07.9 Chest pain, unspecified (principal)
CPT/HCPCS: 93017; 93225

== ENCOUNTER → 2022-09-04 08:45 | Outpatient (REF) | payer MEDICAID, SELFPAY ==
--- NOTE | ~2022-09-04 | NM_ITS ---
Myocardial perfusion study Indication: Chest pain to evaluate for myocardial ischemia Technique: The patient was brought in for a Lexiscan perfusion study on 09/04/2022. Patient performed low-level exercise and was injected 0.4 mg of Lexiscan intravenously. Within a minute of injection, 30 mCi of sestamibi was given intravenously. Images were obtained using the SPECT gamma camera interlaced with the gating device. Images were obtained in supine position. Resting perfusion study was performed on 09/07/2022. Patient was administered 30 mCi of sestamibi intravenously at rest. Images were then obtained in supine position. Images obtained with and without CT attenuation. Total DLP 96 mGy-cm. Images were processed with the software and compared side to side in short axis, horizontal long axis and vertical long axis views. Findings: The stress perfusion study showed non attenuated images show mildly reduced uptake in the basal and mid inferior wall of the LV myocardium. Remainder of the LV myocardium is normally perfused. Attenuation corrected images show normalized uptake in the inferior wall of the LV myocardium with mildly reduced uptake in the apex. The gated study shows reduced LV systolic function with calculated LVEF of 47%. LV cavity is mildly dilated size. The gated study shows reduced wall thickening and contraction of basal and mid inferior segments. Resting study shows non attenuated images show normal uptake of radiotracer in all segments of LV myocardium. Attenuation corrected images show no change in perfusion in compared to stress perfusion study. Gating at rest reveals normal systolic wall motion with ejection fraction at 68%. The findings are consistent with possible reversible inferior wall defect suggestive of ischemia. NM/NM rubi perf SPECT rest & str Impression: 1. Myocardial perfusion imaging study shows equivocal inferior wall ischemia 2. Gated LVEF is 47% with stress and 68% with rest 3. Transient ischemic dilatation present EKG is nondiagnostic for ischemia
--- NOTE | 2022-09-04 08:52 | CA_ITS ---
Acquisition Time: 2022-09-04 09:09:14 Total Exercise Time: 00:02:00 Test Indications: CP Medications: SEE CHART Protocol: LEXISCAN Max HR: 110 BPM 67% of Pred: 163 BPM Max BP: 102/064 mmHG Max Work Load: 1.0 METS Pharmacological stress test with Lexiscan injection, while sitting and kicking his legs, without anginal symptoms, with frequent isolated PACs, with normotensive response to injection, with nondiagnostic EKG for ischemia. In recovery he reported feeling itchy on his legs. No hives, redness or rash noted. Aminophylline 75mg IVP given to reverse Lexiscan with resolution of symptom. Nuclear images pending. Test reviewed with Dr Vazquez. Referred By: Zoraida Luo Overread By: JAIDEN ROY
== END ==
LOC: HO.CARD 08:45
PROVIDERS: Visit Provider Family Medicine
DX: R07.9 Chest pain, unspecified (principal)
CPT/HCPCS: 78452; 93017; A9500; J0280; J2785

== ENCOUNTER 2022-09-22 13:35 | Emergency (ER) | payer MEDICAID, SELFPAY ==
--- NOTE | ~2022-09-22 | CT_ITS ---
EXAMINATION: CT ABDOMEN AND PELVIS WITHOUT CONTRAST CLINICAL INFORMATION: Right-sided abdominal pain. COMPARISON: 07/03/2022. TECHNIQUE: Contiguous axial thin section helical images of the abdomen and pelvis were performed following without contrast. The data set was reformatted in the coronal and sagittal planes and reviewed on an independent workstation. This CT examination was performed using dose optimization techniques as appropriate, variously including the following: *Automated exposure control *Adjustment of mA and/or kV according to patient size (this includes techniques or standardized protocols for targeted exams where dose is matched to indication/reason for exam; i.e. extremities or head) *Use of iterative reconstruction technique DLP: 574 mGy-cm FINDINGS: LUNG BASES: No focal parenchymal or pleural disease. No pericardial effusion. LIVER, GALLBLADDER, BILIARY TREE: Within normal limits. No focal lesion. Gallbladder surgically absent. PANCREAS: No mass or inflammatory changes. SPLEEN: No focal lesion or enlargement. ADRENAL GLANDS AND KIDNEYS: Stable low-density lesion right renal cortex laterally favoring a cyst. No new Mass, calculus or hydronephrosis. Notable atrophy of both kidneys. Transplanted kidney right pelvis similar. PELVIS: There is no pelvic mass. Pelvic organs within normal limits. URETERS AND BLADDER: Within normal limits. BOWEL LOOPS: Prominence of the rectal wall noted of uncertain significance. Correlate with digital rectal exam or lower GI assessment. No acute inflammatory changes. Scattered diverticula. Normal appendix. No small bowel pathology.. LYMPHOVASCULAR STRUCTURES: No pathologic enlargement. BONES: No lytic or sclerotic lesions. No fracture. CT/CT abdomen pelvis wo IV con IMPRESSION: 1. No specific findings to explain patient's right-sided abdominal pain. 2. Nonspecific rectal wall thickening. Correlate with digital rectal exam or lower GI assessment. EXAMINATION: CHEST 2 VIEWS CLINICAL INFORMATION: Right-sided chest wall pain COMPARISON: None. TECHNIQUE: PA and lateral views of the chest were obtained. FINDINGS: Stent left upper arm noted. Clips consistent cholecystectomy. No significant abnormality is noted involving the heart, lungs, mediastinum, bony thorax or soft tissues. IMPRESSION: Unremarkable examination.
[2022-09-22 13:42] VITALS: BP 143/74; PULSE 93; RESP 19; TEMP 36.6; O2SAT 98; BMI 31.8
--- NOTE | 2022-09-22 13:43 | ED_ITS ---
HPI - General Adult General Chief complaint: General Medical <ADONIS Bella - Last Filed: 09/22/22 13:46> Stated complaint: Dizziness/Dry mouth/Body aches <ADONIS Bella - Last Filed: 09/22/22 13:46> Time Seen by Provider: 09/22/22 16:18 <ADONIS Bella - Last Filed: 09/22/22 13:46> Source: patient and information lead <Any Daly MD - Last Filed: 09/22/22 18:59> Mode of arrival: ambulatory <Any Daly MD - Last Filed: 09/22/22 18:59> History of Present Illness HPI narrative: 57-year-old male who arrives with complaints of right-sided abdominal discomfort in lower right-sided chest wall discomfort since last night, sore throat, tingling into bilateral lower extremities but denies any bowel or bladder dysfunction, he does report subjective fevers but denies any nausea, vomiting, diarrhea or constipation. <Any Daly MD - Last Filed: 09/22/22 18:59> Related Data Home medications: Home Medications Medication Instructions Recorded Confirmed albuterol sulfate 2.5 mg/3 mL 1 amp inhalation TID PRN 08/26/21 01/18/22 (0.083 %) solution for nebulization Respiratory Distress albuterol sulfate 90 mcg/actuation 1 puff PO Q4H PRN wheezing 08/26/21 01/18/22 aerosol inhaler (ProAir HFA) amlodipine 5 mg tablet 5 mg PO DAILY 08/26/21 01/18/22 aspirin 81 mg tablet,delayed 81 mg PO DAILY 08/26/21 01/18/22 release atorvastatin 10 mg tablet 10 mg PO DAILY 08/26/21 01/18/22 calcitriol 0.5 mcg capsule 0.5 mcg PO DAILY 08/26/21 01/18/22 cholecalciferol (vitamin D3) 1,250 1 cap PO SA@1000 08/26/21 01/18/22 mcg (50,000 unit) capsule duloxetine 20 mg capsule,delayed 20 mg PO DAILY 08/26/21 01/18/22 release insulin glargine 100 unit/mL (3 44 unit subcut BEDTIME 08/26/21 01/18/22 mL) subcutaneous pen (Lantus Solostar U-100 Insulin) insulin lispro 100 unit/mL 10 unit subcut TIDWM 08/26/21 01/18/22 subcutaneous pen (Humalog KwikPen (U-100) Insulin) lidocaine 5 % topical patch 1 patch topical DAILY 08/26/21 01/18/22 (Lidoderm) metoclopramide HCl 10 mg tablet 10 mg PO BEDTIME 08/26/21 01/18/22 mupirocin 2 % topical ointment 1 appl topical TID 08/26/21 01/19/22 tacrolimus 1 mg capsule, 2 mg PO DAILY 08/26/21 01/18/22 immediate-release tramadol 50 mg tablet 50 mg PO Q8H PRN moderate pain 08/26/21 01/18/22 diclofenac sodium 1 % topical gel 2 g topical QID PRN Pain 12/11/21 01/18/22 famotidine 40 mg tablet 40 mg PO BEDTIME 12/11/21 01/18/22 gabapentin 100 mg capsule 100 mg PO BEDTIME 12/11/21 01/18/22 loperamide 2 mg tablet 2 mg PO Q6H PRN Diarrhea 12/11/21 01/18/22 pantoprazole 40 mg tablet,delayed 40 mg PO BID 12/11/21 01/18/22 release prednisone 10 mg tablet 10 mg PO DAILY 12/11/21 01/18/22 <ADONIS Bella - Last Filed: 09/22/22 13:46> Allergies/adverse reactions: Allergies Allergy/AdvReac Type Severity Reaction Status Date / Time hydromorphone [From DILAUDID] Allergy Mild ITCHINESS Verified 12/08/21 10:45 diphenhydramine Allergy Unknown UNK Verified 12/08/21 10:45 [From BENADRYL] regadenoson [From Lexiscan] AdvReac Mild Itching Verified 09/04/22 10:54 <ADONIS Bella - Last Filed: 09/22/22 13:46> Review of Systems Review of Systems: Pertinent positives and negatives as stated in HPI <Any Daly MD - Last Filed: 09/22/22 18:59> PMFSH Past Medical History Source: nursing notes reviewed <Any Daly MD - Last Filed: 09/22/22 18:59> Medical History: Medical History Amputation of fifth toe of right foot Chronic hyperglycemia Diabetes History of osteomyelitis HTN (hypertension) <ADONIS Bella - Last Filed: 09/22/22 13:46> Surgical History: Surgical History H/O arteriovenostomy for renal dialysis <ADONIS Bella - Last Filed: 09/22/22 13:46> Family History Family History: Family History Other Diabetes No family history of coronary artery disease <ADONIS Bella - Last Filed: 09/22/22 13:46> Social History Social History: Social History Household Members: None Housing: House Do you presently have visiting nurse or other home services: No Alcohol intake: never Patient Tobacco Use Status: Never used Tobacco Advance Directives: Yes Advance Directives on File: Yes Advance Directives Date on File: 01/21/22 service: No Current occupational status: disabled <ADONIS Bella - Last Filed: 09/22/22 13:46> Physical Exam ED Vital Signs: Vital Signs - 24 hr 09/22/22 13:42 09/22/22 18:24 09/22/22 18:27 Temperature 98 F Pulse Rate 93 70 74 Respiratory Rate 19 Blood Pressure 143/74 H 141/89 H 146/93 H Pulse Oximetry 98 Oxygen Delivery Method Room Air 09/22/22 18:27 Temperature Pulse Rate 74 Respiratory Rate Blood Pressure 150/84 H Pulse Oximetry Oxygen Delivery Method BMI result Body Mass Index 31.8 <ADONIS Bella - Last Filed: 09/22/22 13:46> Vital Signs - 24 hr 09/22/22 13:42 09/22/22 18:24 09/22/22 18:27 Temperature 98 F Pulse Rate 93 70 74 Respiratory Rate 19 Blood Pressure 143/74 H 141/89 H 146/93 H Pulse Oximetry 98 Oxygen Delivery Method Room Air 09/22/22 18:27 Temperature Pulse Rate 74 Respiratory Rate Blood Pressure 150/84 H Pulse Oximetry Oxygen Delivery Method BMI result Body Mass Index 31.8 VITAL SIGNS: Reviewed. GENERAL: Well developed, well nourished, in no acute distress. HEAD: Normocephalic/atraumatic EYES: PERRLA, EOMI EARS: Ext canals without abnormality NOSE: Nares patent bilateral OROPHARYNX: no oral lesions noted, posterior pharynx clear NECK: Supple, no adenopathy LUNGS: Normal breath sounds. No adventitious sounds or accessory muscle use. SpO2<98>; CHEST WALL: There is no deformity, crepitus on evaluate CARDIOVASCULAR: Regular rate and rhythm without noted murmurs, no JVD or lower extremity edema. ABDOMEN: Soft, nonspecific tenderness to deep palpation at mid right flank, non- distended with bowel sounds. : Chaperoned by Tanya, patient has folliculitis at left groin as well as another side on the right groin MUSCULOSKELETAL: No tenderness, deformities, or effusions noted on gross inspection. EXTREMITIES: No cyanosis, clubbing or edema, palpable bilateral AT/PT, bilateral feet and legs are warm. SKIN: Inspection of the skin reveals no rashes, no pallor NEUROLOGIC: Alert and oriented x 4. Strength and sensation to light touch were grossly intact x 4. <Any Daly MD - Last Filed: 09/22/22 18:59> Course Course Course Narrative: This is an RME: Additional HPI, ROS, PE not included below will be deferred to primary provider. 57 year old male hx hypertension, poorly controlled diabetes type 2 insulin dependent, end-stage renal disease secondary to diabetic neuropathy status post renal transplant 2013 complicated by CKD stage IIIB.? presents to the emergency department with multiple complaints complaining of chest pain, shortness of breath, dizziness, bilateral knee pain, numbness and tingling to lower extremities, fatigue, malaise x2 days. On exam patient well-appearing with stable vitals. Plan labs, ua <ADONIS Bella - Last Filed: 09/22/22 13:46> Medications Administered Discontinued Medications Generic Name Dose Route Start Last Admin Trade Name Freq PRN Reason Stop Dose Admin Acetaminophen 975 mg 09/22/22 18:44 09/22/22 18:51 Acetaminophen 325 Mg Tablet PO 09/22/22 18:45 975 mg ONCE ONE Administration Sodium Chloride 1,000 mls @ 999 mls/hr 09/22/22 13:45 09/22/22 18:02 Ns IV 09/22/22 14:45 Not Given .Q1H1M EUNICE Lidocaine 1 patch 09/22/22 18:44 09/22/22 18:49 Lidocaine 4 % Patch Adh..Patch TRANSDERMA 09/22/22 18:45 1 patch ONCE ONE Administration Protocol <ADONIS Bella - Last Filed: 09/22/22 13:46> Medications Administered Discontinued Medications Generic Name Dose Route Start Last Admin Trade Name Freq PRN Reason Stop Dose Admin Acetaminophen 975 mg 09/22/22 18:44 09/22/22 18:51 Acetaminophen 325 Mg Tablet PO 09/22/22 18:45 975 mg ONCE ONE Administration Sodium Chloride 1,000 mls @ 999 mls/hr 09/22/22 13:45 09/22/22 18:02 Ns IV 09/22/22 14:45 Not Given .Q1H1M EUNICE Lidocaine 1 patch 09/22/22 18:44 09/22/22 18:49 Lidocaine 4 % Patch Adh..Patch TRANSDERMA 09/22/22 18:45 1 patch ONCE ONE Administration Protocol <Any Daly MD - Last Filed: 09/22/22 18:59> Medical Decision Making Medical Decision Making MDM Narrative: 57-year-old male with history and clinical presentation suggestive of possible intra-abdominal pathology, patient is status post cholecystectomy and denies any history of renal colic. Otherwise, review of investigations demonstrates chronically stable lab work. 1854: Orthostatics are negative, I reviewed all investigations to include the imaging studies in my interpretation is that patient has chronically stable lab work in suspect that his symptoms are combination of underlying illness these which are not acutely decompensated at this time. Suspect that patient has ongoing and possibly worsening diabetic neuropathy. I did review the metabolic acidosis which is present and likely secondary to underlying CKD for which he is currently managed as an outpatient. He was provided with oral Tylenol as well as a lidocaine patch is otherwise discharged home in stable condition. There is no evidence of acute infection, anemia, electrolyte abnormality, no viral illnesses noted. All results discussed with him at bedside. Patient does have a follow-up appoint with his primary care provider within the next week. <Any Daly MD - Last Filed: 09/22/22 18:59> Differential Diagnosis Please see the discussion above <Any Daly MD - Last Filed: 09/22/22 18:59> Lab Data Please see the discussion above <Any Daly MD - Last Filed: 09/22/22 18:59> Result Diagrams: 09/22/22 14:04 09/22/22 14:04 <ADONIS Bella - Last Filed: 09/22/22 13:46> Labs: Lab Results 09/22/22 09/22/22 09/22/22 Range/Units 14:04 14:04 14:04 WBC 11.5 H (4.8-10.8) X10*3/uL RBC 5.09 (4.60-5.80) X10*6/uL Hgb 13.8 L (14.0-18.0) g/dl Hct 42.8 (42.0-52.0) % MCV 84.1 (80.0-98.0) fL MCH 27.1 (27.0-33.0) pg MCHC 32.2 (31.0-36.0) g/dl RDW 14.8 (11.0-16.0) % Plt Count 210 (160-400) X10*3/uL MPV 10.7 (9.4-12.4) fL Immature Gran % (Auto) 0.8 H (0.0-0.4) % Neut % (Auto) 87.8 H (45-73) % Lymph % (Auto) 6.3 L (20-40) % [place] % (Auto) 4.5 (2-11) % Eos % (Auto) 0.1 (0-4) % Baso % (Auto) 0.5 (0-2) % Lymph # (Auto) 0.7 L (1.2-4.9) X10*3/uL [place] # (Auto) 0.5 (0.1-1.2) X10*3/uL Eos # (Auto) 0.0 (0.0-0.4) X10*3/uL Baso # (Auto) 0.1 (0.0-0.2) X10*3/uL Abs Immat Gran (auto) 0.09 H (0.00-0.03) X10*3/uL Absolute Neuts (auto) 10.1 H (2.0-8.3) x10*3/uL Absolute Nucleated RBC 0.000 (0.0-0.012) X10*3/uL Nucleated RBC % (auto) 0.0 (0.0-0.2) /100WBC Sodium 135 (135-145) mmol/L Potassium 4.9 D (3.3-5.1) mmol/L Chloride 112 H (96-108) mmol/L Carbon Dioxide 15 L (22-29) mmol/L Anion Gap 13 (12-20) BUN 30 H (9-16) mg/dL Creatinine 2.53 H (0.5-1.4) mg/dL Estim Creat Clear Calc 30.4 Estimated GFR 26 Random Glucose 155 H (60-115) mg/dL Calcium 8.3 L D (8.4-10.2) mg/dL Magnesium 1.8 (1.6-2.6) mg/dL Total Bilirubin 0.5 (0.0-1.0) mg/dL AST 37 (5-37) U/L ALT 39 (0-40) U/L Alkaline Phosphatase 109 (39-117) U/L Troponin I High Sens 32.9 (<3.5-35.0) ng/L B-Natriuretic Peptide (<100) pg/mL Total Protein 6.4 L (6.5-8.0) g/dL Albumin 3.4 L (3.5-5.0) g/dL Urine Color Urine Appearance Urine pH (5.0-9.0) Ur Specific [place] (1.005-1.025) Urine Protein (Neg-Trace) mg/dL Urine Glucose (UA) (Negative) mg/dL Urine Ketones (Negative) mg/dL Urine Blood (Negative) Urine Nitrite (Negative) Ur Leukocyte Esterase (Negative) Urine RBC (0-2) /HPF Urine WBC (0-5) /HPF Ur Squamous Epith Cells (0-2) /HPF Urine Bacteria (None Seen) Hyaline Casts (0-2) /LPF COVID-19 ([facility]) (Negative) COVID-19 Clin Com 09/22/22 09/22/22 09/22/22 Range/Units 14:04 14:04 18:07 WBC (4.8-10.8) X10*3/uL RBC (4.60-5.80) X10*6/uL Hgb (14.0-18.0) g/dl Hct (42.0-52.0) % MCV (80.0-98.0) fL MCH (27.0-33.0) pg MCHC (31.0-36.0) g/dl RDW (11.0-16.0) % Plt Count (160-400) X10*3/uL MPV (9.4-12.4) fL Immature Gran % (Auto) (0.0-0.4) % Neut % (Auto) (45-73) % Lymph % (Auto) (20-40) % [place] % (Auto) (2-11) % Eos % (Auto) (0-4) % Baso % (Auto) (0-2) % Lymph # (Auto) (1.2-4.9) X10*3/uL [place] # (Auto) (0.1-1.2) X10*3/uL Eos # (Auto) (0.0-0.4) X10*3/uL Baso # (Auto) (0.0-0.2) X10*3/uL Abs Immat Gran (auto) (0.00-0.03) X10*3/uL Absolute Neuts (auto) (2.0-8.3) x10*3/uL Absolute Nucleated RBC (0.0-0.012) X10*3/uL Nucleated RBC % (auto) (0.0-0.2) /100WBC Sodium (135-145) mmol/L Potassium (3.3-5.1) mmol/L Chloride (96-108) mmol/L Carbon Dioxide (22-29) mmol/L Anion Gap (12-20) BUN (9-16) mg/dL Creatinine (0.5-1.4) mg/dL Estim Creat Clear Calc Estimated GFR Random Glucose (60-115) mg/dL Calcium (8.4-10.2) mg/dL Magnesium (1.6-2.6) mg/dL Total Bilirubin (0.0-1.0) mg/dL AST (5-37) U/L ALT (0-40) U/L Alkaline Phosphatase (39-117) U/L Troponin I High Sens (<3.5-35.0) ng/L B-Natriuretic Peptide 77 (<100) pg/mL Total Protein (6.5-8.0) g/dL Albumin (3.5-5.0) g/dL Urine Color Yellow Urine Appearance Clear Urine pH 6.0 (5.0-9.0) Ur Specific [place] 1.020 (1.005-1.025) Urine Protein 100 (2+) H (Neg-Trace) mg/dL Urine Glucose (UA) >=1000 H (Negative) mg/dL Urine Ketones Negative (Negative) mg/dL Urine Blood Negative (Negative) Urine Nitrite Negative (Negative) Ur Leukocyte Esterase Negative (Negative) Urine RBC 0-2 (0-2) /HPF Urine WBC 0-5 (0-5) /HPF Ur Squamous Epith Cells 0-2 (0-2) /HPF Urine Bacteria None Seen (None Seen) Hyaline Casts 0-2 (0-2) /LPF COVID-19 ([facility]) Negative (Negative) COVID-19 Clin Com See Note <ADONIS Bella - Last Filed: 09/22/22 13:46> Lab Results 09/22/22 09/22/22 09/22/22 Range/Units 14:04 14:04 14:04 WBC 11.5 H (4.8-10.8) X10*3/uL RBC 5.09 (4.60-5.80) X10*6/uL Hgb 13.8 L (14.0-18.0) g/dl Hct 42.8 (42.0-52.0) % MCV 84.1 (80.0-98.0) fL MCH 27.1 (27.0-33.0) pg MCHC 32.2 (31.0-36.0) g/dl RDW 14.8 (11.0-16.0) % Plt Count 210 (160-400) X10*3/uL MPV 10.7 (9.4-12.4) fL Immature Gran % (Auto) 0.8 H (0.0-0.4) % Neut % (Auto) 87.8 H (45-73) % Lymph % (Auto) 6.3 L (20-40) % [place] % (Auto) 4.5 (2-11) % Eos % (Auto) 0.1 (0-4) % Baso % (Auto) 0.5 (0-2) % Lymph # (Auto) 0.7 L (1.2-4.9) X10*3/uL [place] # (Auto) 0.5 (0.1-1.2) X10*3/uL Eos # (Auto) 0.0 (0.0-0.4) X10*3/uL Baso # (Auto) 0.1 (0.0-0.2) X10*3/uL Abs Immat Gran (auto) 0.09 H (0.00-0.03) X10*3/uL Absolute Neuts (auto) 10.1 H (2.0-8.3) x10*3/uL Absolute Nucleated RBC 0.000 (0.0-0.012) X10*3/uL Nucleated RBC % (auto) 0.0 (0.0-0.2) /100WBC Sodium 135 (135-145) mmol/L Potassium 4.9 D (3.3-5.1) mmol/L Chloride 112 H (96-108) mmol/L Carbon Dioxide 15 L (22-29) mmol/L Anion Gap 13 (12-20) BUN 30 H (9-16) mg/dL Creatinine 2.53 H (0.5-1.4) mg/dL Estim Creat Clear Calc 30.4 Estimated GFR 26 Random Glucose 155 H (60-115) mg/dL Calcium 8.3 L D (8.4-10.2) mg/dL Magnesium 1.8 (1.6-2.6) mg/dL Total Bilirubin 0.5 (0.0-1.0) mg/dL AST 37 (5-37) U/L ALT 39 (0-40) U/L Alkaline Phosphatase 109 (39-117) U/L Troponin I High Sens 32.9 (<3.5-35.0) ng/L B-Natriuretic Peptide (<100) pg/mL Total Protein 6.4 L (6.5-8.0) g/dL Albumin 3.4 L (3.5-5.0) g/dL Urine Color Urine Appearance Urine pH (5.0-9.0) Ur Specific [place] (1.005-1.025) Urine Protein (Neg-Trace) mg/dL Urine Glucose (UA) (Negative) mg/dL Urine Ketones (Negative) mg/dL Urine Blood (Negative) Urine Nitrite (Negative) Ur Leukocyte Esterase (Negative) Urine RBC (0-2) /HPF Urine WBC (0-5) /HPF Ur Squamous Epith Cells (0-2) /HPF Urine Bacteria (None Seen) Hyaline Casts (0-2) /LPF COVID-19 ([facility]) (Negative) COVID-19 Clin Com 09/22/22 09/22/22 09/22/22 Range/Units 14:04 14:04 18:07 WBC (4.8-10.8) X10*3/uL RBC (4.60-5.80) X10*6/uL Hgb (14.0-18.0) g/dl Hct (42.0-52.0) % MCV (80.0-98.0) fL MCH (27.0-33.0) pg MCHC (31.0-36.0) g/dl RDW (11.0-16.0) % Plt Count (160-400) X10*3/uL MPV (9.4-12.4) fL Immature Gran % (Auto) (0.0-0.4) % Neut % (Auto) (45-73) % Lymph % (Auto) (20-40) % [place] % (Auto) (2-11) % Eos % (Auto) (0-4) % Baso % (Auto) (0-2) % Lymph # (Auto) (1.2-4.9) X10*3/uL [place] # (Auto) (0.1-1.2) X10*3/uL Eos # (Auto) (0.0-0.4) X10*3/uL Baso # (Auto) (0.0-0.2) X10*3/uL Abs Immat Gran (auto) (0.00-0.03) X10*3/uL Absolute Neuts (auto) (2.0-8.3) x10*3/uL Absolute Nucleated RBC (0.0-0.012) X10*3/uL Nucleated RBC % (auto) (0.0-0.2) /100WBC Sodium (135-145) mmol/L Potassium (3.3-5.1) mmol/L Chloride (96-108) mmol/L Carbon Dioxide (22-29) mmol/L Anion Gap (12-20) BUN (9-16) mg/dL Creatinine (0.5-1.4) mg/dL Estim Creat Clear Calc Estimated GFR Random Glucose (60-115) mg/dL Calcium (8.4-10.2) mg/dL Magnesium (1.6-2.6) mg/dL Total Bilirubin (0.0-1.0) mg/dL AST (5-37) U/L ALT (0-40) U/L Alkaline Phosphatase (39-117) U/L Troponin I High Sens (<3.5-35.0) ng/L B-Natriuretic Peptide 77 (<100) pg/mL Total Protein (6.5-8.0) g/dL Albumin (3.5-5.0) g/dL Urine Color Yellow Urine Appearance Clear Urine pH 6.0 (5.0-9.0) Ur Specific [place] 1.020 (1.005-1.025) Urine Protein 100 (2+) H (Neg-Trace) mg/dL Urine Glucose (UA) >=1000 H (Negative) mg/dL Urine Ketones Negative (Negative) mg/dL Urine Blood Negative (Negative) Urine Nitrite Negative (Negative) Ur Leukocyte Esterase Negative (Negative) Urine RBC 0-2 (0-2) /HPF Urine WBC 0-5 (0-5) /HPF Ur Squamous Epith Cells 0-2 (0-2) /HPF Urine Bacteria None Seen (None Seen) Hyaline Casts 0-2 (0-2) /LPF COVID-19 ([facility]) Negative (Negative) COVID-19 Clin Com See Note <Any Daly MD - Last Filed: 09/22/22 18:59> Independent Interpretation I performed an independent interpretation of an: EKG <Any Daly MD - Last Filed: 09/22/22 18:59> Interpretation: Sinus rhythm with PACs, HR-92, no STEMI, OR/QRS/QTC is within normal limits. <Any Daly MD - Last Filed: 09/22/22 18:59> Radiology Impression Radiologist Impression: My interpretation is in agreement with radiology's impression of the imag ing studies. <Any Daly MD - Last Filed: 09/22/22 18:59> External Record Review External record reviewed: Outpatient record and Prior outpatient labs <Any Daly MD - Last Filed: 09/22/22 18:59> Chronic Conditions Patient?s care impacted by: Diabetes and Hypertension <Any Daly MD - Last Filed: 09/22/22 18:59> CKD <Any Daly MD - Last Filed: 09/22/22 18:59> Discharge Plan Discharge Clinical Impression: Body aches, CKD (chronic kidney disease), Diabetic neuropathy <ADONIS Bella - Last Filed: 09/22/22 13:46> Patient Disposition: Home, Self-Care <ADONIS Bella - Last Filed: 09/22/22 13:46> Instructions: Viral Syndrome (ED), Chronic Kidney Disease (ED), Diabetic Peripheral Neuropathy (ED) <ADONIS Bella - Last Filed: 09/22/22 13:46> Additional Instructions: 1. Reanudar todos los medicamentos caseros seg?n lo prescrito. 2. Deber? controlar las molestias con grzegorz combinaci?n de Tylenol y parche de lidoca?na. No recomiendo ninguna forma de RUBIA (ibuprofeno, Motrin, Naprosyn, Aleve). Aumente la cantidad de agua que munir. 3. Seguimiento con holland proveedor de atenci?n primaria seg?n lo programado el jueves. Regrese a la toby de emergencias si los s?ntomas empeoran. 1. Resume all home medications as prescribed. 2. You will need to manage the discomfort with combination of Tylenol and lidocaine patch. I do not recommend any form of NSAIDs (ibuprofen, Motrin, Naprosyn, Aleve). Increase the amount of water that you drink. 3. Follow-up with your primary care provider as scheduled on . Return to the ER for any worsening symptoms. <ADONIS Bella - Last Filed: 09/22/22 13:46> Prescriptions: No Action albuterol sulfate 2.5 mg /3 mL (0.083 %) solution for nebulization 1 amp inhalation TID PRN (Reason: Respiratory Distress) atorvastatin 10 mg tablet 10 mg PO DAILY amlodipine 5 mg tablet 5 mg PO DAILY aspirin 81 mg tablet,delayed release (DR/EC) 81 mg PO DAILY tramadol 50 mg tablet 50 mg PO Q8H PRN (Reason: moderate pain) calcitriol 0.5 mcg capsule 0.5 mcg PO DAILY lidocaine [Lidoderm] 5 % adhesive patch,medicated 1 patch topical DAILY Protocol: Apply to: Apply to: BACK mupirocin 2 % ointment 1 appl topical TID Protocol: Apply to: Apply to: AFFECTED AREA albuterol sulfate [ProAir HFA] 90 mcg/actuation HFA aerosol inhaler 1 puff PO Q4H PRN (Reason: wheezing) tacrolimus 1 mg capsule 2 mg PO DAILY Patient Comments: PATIENTS DOSE WAS RECENTLY DECREASED TO 2 IN THE AM INSTEAD OF 3 metoclopramide HCl 10 mg tablet 10 mg PO BEDTIME insulin lispro [Humalog KwikPen Insulin] 100 unit/mL insulin pen 10 unit subcut TIDWM duloxetine 20 mg capsule,delayed release(DR/EC) 20 mg PO DAILY cholecalciferol (vitamin D3) 1,250 mcg (50,000 unit) capsule 1 cap PO SA@1000 insulin glargine [Lantus Solostar U-100 Insulin] 100 unit/mL (3 mL) insulin pen 44 unit subcut BEDTIME prednisone 10 mg Tablet 10 mg PO DAILY famotidine 40 mg Tablet 40 mg PO BEDTIME pantoprazole 40 mg Tablet,Delayed Release (Dr/Ec) 40 mg PO BID gabapentin 100 mg Capsule 100 mg PO BEDTIME loperamide 2 mg Tablet 2 mg PO Q6H PRN (Reason: Diarrhea) diclofenac sodium 1 % Gel 2 g TOPICAL QID PRN (Reason: Pain) Rx Instructions: apply to single elbow, wrist or hand; for hand includes palm/fingers/back of hand <ADONIS Bella - Last Filed: 09/22/22 13:46> Referrals: Zoraida Luo MD [Primary Care Provider] - <ADONIS Bella - Last Filed: 09/22/22 13:46> Print Language: [place] <ADONIS Bella - Last Filed: 09/22/22 13:46>
--- NOTE | 2022-09-22 13:45 | ECG_ITS ---
Test Reason : CP Blood Pressure : / mmHG Vent. Rate : 092 BPM Atrial Rate : 092 BPM P-R Int : 122 ms QRS Dur : 096 ms QT Int : 362 ms P-R-T Axes : 038 -23 099 degrees QTc Int : 447 ms Sinus rhythm with Premature atrial complexes T wave abnormality, consider lateral ischemia Abnormal ECG When compared with ECG of 03-JUL-2022 15:36, No significant change was found Referred By: Meek Browne Electronically Signed By:Jesus Manuel Vazquez
[2022-09-22 14:09] LABS: MANUAL DIFF FLAG NO
[2022-09-22 14:12] LABS: Appearance Urine Clear; Color Urine Yellow; Glucose Urine UA >=1000 mg/dL (Negative); Leukocyte Esterase Urine Negative (Negative); Nitrite Urine Negative (Negative); UMIC TRIGGER UACC YES; Urine Blood Negative (Negative); Urine Ketones Negative (Negative); Urine Protein 100 (2+) mg/dL (Neg-Trace)
[2022-09-22 14:13] LABS: Basophils Absolute Auto 0.1 X10*3/uL (0.0-0.2); Basophils Percent Auto 0.5 % (0-2); Eosinophils Percent Auto 0.1 % (0-4); Hematocrit 42.8 % (42.0-52.0); Hemoglobin 13.8 g/dl (14.0-18.0); Imm Gran Abs Auto 0.09 X10*3/uL (0.00-0.03); Imm Gran Pct Auto 0.8 % (0.0-0.4); Lymphocytes Absolute Auto 0.7 X10*3/uL (1.2-4.9); Lymphocytes Percent Auto 6.3 % (20-40); Mean Corpuscular HGB Conc 32.2 g/dl (31.0-36.0); Mean Corpuscular Hemoglobin 27.1 pg (27.0-33.0); Mean Corpuscular Volume 84.1 fL (80.0-98.0); Mean Platelet Volume 10.7 fL (9.4-12.4); Monocytes Absolute Auto 0.5 X10*3/uL (0.1-1.2); Monocytes Percent Auto 4.5 % (2-11); Neutrophils Absolute Auto 10.1 x10*3/uL (2.0-8.3); Neutrophils Percent Auto 87.8 % (45-73); Platelet Count 210 X10*3/uL (160-400); Red Blood Count 5.09 X10*6/uL (4.60-5.80); Red Cell Distribution Width 14.8 % (11.0-16.0); White Blood Count 11.5 X10*3/uL (4.8-10.8)
[2022-09-22 14:16] LABS: Bacteria Urine None Seen (None Seen); Hyaline Casts Urine 0-2 /LPF (0-2); RBC Urine 0-2 /HPF (0-2); Squamous Epithelial Cell Urine 0-2 /HPF (0-2); WBC Urine 0-5 /HPF (0-5)
[2022-09-22 14:31] LABS: B Type Natriuretic Peptide 77 pg/mL (<100)
[2022-09-22 14:33] LABS: Troponin-I High Sensitivity 32.9 ng/L (<3.5-35.0)
[2022-09-22 14:38] LABS: Alanine Aminotransferase 39 U/L (0-40); Albumin Level 3.4 g/dL (3.5-5.0); Alkaline Phosphatase 109 U/L (39-117); Anion Gap 13 (12-20); Aspartate Amino Transferase 37 U/L (5-37); Bilirubin Total 0.5 mg/dL (0.0-1.0); Blood Urea Nitrogen 30 mg/dL (9-16); Calcium 8.3 mg/dL (8.4-10.2); Carbon Dioxide 15 mmol/L (22-29); Chloride 112 mmol/L (96-108); Creatinine Clr Calc Pharmacy 30.4; Estimated Glomerular Filt Rate 26; Glucose Random 155 mg/dL (60-115); Magnesium 1.8 mg/dL (1.6-2.6); Potassium 4.9 mmol/L (3.3-5.1); Sodium 135 mmol/L (135-145); Total Protein 6.4 g/dL (6.5-8.0)
--- OUTSIDE RECORDS SUMMARY | 2022-09-22 16:34 | XMS_ITS | Continuity of Care Document ---
Author Name Unknown Organization [facility] Address [address] [place] [address]- Care Team Providers Care Chronometer Repairer Name Role Phone Valerio SEVERINO, Zoraida Primary Care Physician Encounter [facility] Date(s): 07/31/22 - 08/30/22 [facility] [address] [place] [id number] Attending Physician: Bhakti Elam Admitting Physician: AdmtrBhakti Referring Physician: Admtr, Ar8 Allergies, Adverse Reactions, Alerts Substance Reaction Severity Status morphine itching Active Dilaudid anaphylaxis Active Benadryl 1 itching Active 1itch increased Immunizations Given and Recorded Vaccine Date Status Refusal Reason influenza virus vaccine, inactivated 05/06/22 Give n influenza virus vaccine, inactivated 1 04/05/20 Gi sriram influenza virus vaccine, inactivated 06/24/17 Sohail rded influenza virus vaccine, inactivated 06/09/16 Sohail rded influenza virus vaccine, inactivated 04/16/14 Sohail rded influenza virus vaccine, inactivated 03/12/12 Sohail rded influenza virus vaccine, inactivated 2 03/14/09 Gi sriram influenza virus vaccine, inactivated 04/10/02 Sohail rded pneumococcal 23-valent vaccine 3 04/05/20 Given pneumococcal 23-valent vaccine 11/18/01 Recorded tetanus/diphtheria/pertussis, acel(Tdap) 06/09/16 Recorded influenza virus vaccine, live 4 04/18/14 Given Measles/Mumps/Rubella Virus Vaccine 11/12/10 Recor ded Pneumococcal Vaccine (oldterm) 05/27/08 Given tetanus-diphtheria toxoids (Td) 11/18/01 Recorded 1Early/Late Reason: Med Not Available 2Result Comment: [id number], NOV 28 3Early/Late Reason: Med Not Available 4Admin Note: Given at PCP office Medications acetaminophen 500 mg oral tablet 1 tablet = 500 mg, By Mouth, Every 4 hours, PRN as needed for fever, # 100 tablet, 0 Refills, Maintenance, 12/31/21 17:36:00 EDT, Tablet, Partial fill upon patient request if the prescription is for a schedule II opioid drug. Start Date: 12/31/21 Status: Ordered albuterol 0.083% inhalation solution 3 mL = 2.5 mg, Inhalation, Every 6 hours, PRN for wheezing, # 25 each, 0 Refills, Maintenance, 12/31/21 17:38:00 EDT, Solution, Partial fill upon patient request if the prescription is for a scheduleII opioid drug. Start Date: 12/31/21 Status: Ordered albuterol 0.083% inhalation solution 3 mL = 2.5 mg, Neb, Every 8 hours Start Date: 12/10/20 Status: Ordered amLODIPine 10 mg oral tablet 1 tablet = 10 mg, By Mouth, Daily, Take instead of the 5mg tablets for blood pressure, # 30 tablet,2 Refills, Maintenance, 01/06/22 9:53:00 EDT, Tablet, [facility], Partial fillupon patient request if the prescription is for a s... Start Date: 01/06/22 Status: Ordered aspirin 81 mg oral tablet 1 tablet = 81 mg, By Mouth, Daily, 0 Refills, Maintenance, 11/03/13 23:15:50 Start Date: 11/03/13 Status: Ordered atorvastatin 10 mg oral tablet 1 tablet = 10 mg, By Mouth, Daily, # 30 tablet, 0 Refills, Maintenance, 05/08/14 9:57:28, Tablet Start Date: 05/08/14 Status: Ordered calcitriol 0.5 mcg oral capsule 1 capsule = 0.5 mcg, By Mouth, Daily, # 30 capsule, 0 Refills, Maintenance, 12/10/20 16:18:00 EDT, Capsule, Partial fill upon patient request if the prescription is for a schedule II opioid drug. Start Date: 12/10/20 Status: Ordered duloxetine 20 mg oral enteric coated capsule 1 capsule = 20 mg, By Mouth, Daily, 0 Refills, Maintenance, 12/10/20 16:18:00 EDT, Partial fill upon patient request if the prescription is for a schedule II opioid drug. Start Date: 12/10/20 Status: Ordered ergocalciferol 22460 iu oral capsule 1 capsule = 50,000 International_Units, By Mouth, Every week, # 5 capsule, 5 Refills, Maintenance, 12/12/14 11:30:10, 1 capsule By Mouth Every week,x30 days Start Date: 12/12/14 Stop Date: 06/10/15 Status: Ordered famotidine 40 mg oral tablet 1 tablet = 40 mg, By Mouth, Daily at bedtime, # 30 tablet, 0 Refills, Maintenance, 12/31/21 17:37:00 EDT, Tablet, Partial fill upon patient request if the prescription is for a schedule II opioid drug. Start Date: 12/31/21 Status: Ordered gabapentin 100 mg oral capsule TAKE ONE CAPSULE AT BEDTIME Start Date: 12/31/21 Status: Ordered gabapentin 100 mg oral capsule 100 mg, 1, capsule, By Mouth, 3 times a day, Refills 0, Maintenance, 12/13/20 11:08:00 EDT, Partialfill upon patient request if the prescription is for a schedule II opioid drug. Start Date: 12/13/20 Status: Ordered Insulin Aspart FlexPen 100 units/mL injectable solution = 10 units, Subcutaneous Injection, 3 times a day before meals, INJECT 9 UNITS SUBCUTANEOUSLY WITH BREAKFAST, 9 UNITS SUBCUTANEOUSLY WITH LUNCH AND 7 UNITS SUBCUTANEOUSLY WITH DINNER Start Date: 12/31/21 Status: Ordered Lantus Inj = 35 units, Subcutaneous Injection, Daily at bedtime, 0 Refills, Maintenance, 05/11/22 14:02:00 EST, Injection, Partial fill upon patient request if the prescription is for a schedule II opioid drug. Start Date: 05/11/22 Status: Ordered levothyroxine 0.025 mg oral tablet 2 tablet = 50 mcg, By Mouth, Daily, 0 Refills, Maintenance, 12/13/20 11:07:00 EDT, Tablet, Partial fill upon patient request if the prescription is for a schedule II opioid drug. Start Date: 12/13/20 Status: Ordered lidocaine 5% topical film 1 patch, Topically, Daily, PRN Pain , Mild, remove after 12 hours, # 13 each, 0 Refills, Maintenance, 12/10/20 16:18:00 EDT, Film, Partial fill upon patient request if the prescription is for a schedule II opioid drug. Start Date: 12/10/20 Status: Ordered loperamide 2 mg oral capsule 2 mg, 1, capsule, By Mouth, 3 times a day, Refills 0, Maintenance, 03/20/21 13:32:00 EDT, Partial fill upon patient request if the prescription is for a schedule II opioid drug. Start Date: 03/20/21 Status: Ordered metoclopramide 10 mg oral tablet 1 tablet = 10 mg, By Mouth, Every 6 hours, 0 Refills, Maintenance, 12/10/20 16:18:00 EDT, Partial fill upon patient request if the prescription is for a schedule II opioid drug. Start Date: 12/10/20 Status: Ordered mupirocin 2% topical ointment 1 application, Topically, 3 times a day, # 15 Gm, 0 Refills, Maintenance, 12/31/21 17:36:00 EDT, Ointment, Partial fill upon patient request if the prescription is for a schedule II opioid drug. Start Date: 12/31/21 Status: Ordered NIFEdipine (Eqv-Adalat CC) 30 mg oral tablet, extended release 1 tablet = 30 mg, By Mouth, Daily, # 30 tablet, 0 Refills, Maintenance, 03/20/21 13:35:00 EDT, ER Tablet, [facility], Partial fill upon patient request if the prescription is for a schedule II opioid drug., 160, cm, 03/20/21 8:11:0... Start Date: 03/20/21 Stop Date: 04/19/21 Status: Ordered pantoprazole 40 mg oral delayed release tablet 1 tablet = 40 mg, By Mouth, 2 times a day, # 60 tablet, 0 Refills, Maintenance, 12/31/21 17:36:00 EDT, CR Tablet Start Date: 12/31/21 Status: Ordered PEG-3350 with Electrolytes (Eqv-NuLYTELY) oral powder for reconstitution See Instructions, as directed, # 1 each, 0 Refills, Maintenance, 04/24/22 14:42:00 EDT, [facility], ok to sub for any gallon prep, as directed, 160, cm, 04/24/22 13:47:00 EDT, Height, 76.2, kg, 01/13/22 14:47:00 EDT, Dry Weight Start Date: 04/24/22 Status: Ordered predniSONE 5 mg oral tablet 1 tablet = 5 mg, By Mouth, Daily, 0 Refills, Maintenance, 05/11/22 14:02:00 EST, Tablet, Partial fill upon patient request if the prescription is for a schedule II opioid drug. Start Date: 05/11/22 Status: Ordered tacrolimus 1 mg oral capsule 2 capsule = 2 mg, By Mouth, Every 12 hours, Take 1 capsule everyday in the morning and 2 capsules everyday in the evening Start Date: 12/31/21 Status: Ordered tamsulosin 0.4 mg oral capsule 0.4 mg, 1, capsule, By Mouth, Daily at bedtime, Refills 0, Maintenance, 12/13/20 11:08:00 EDT, Partial fill upon patient request if the prescription is for a schedule II opioid drug. Start Date: 12/13/20 Status: Ordered traMADol 50 mg oral tablet 1 tablet = 50 mg, By Mouth, Every 12 hours, PRN as needed for pain, 0 Refills, Maintenance, 12/10/20 16:23:00 EDT, Tablet, Partial fill upon patient request if the prescription is for a schedule II opioid drug. Start Date: 12/10/20 Status: Ordered traZODone 50 mg oral tablet 75 mg, 1.5, tablet, By Mouth, Daily at bedtime, # 30 tablet, Refills 0, Maintenance, 05/11/22 14:04:00 EST, Partial fill upon patient request if the prescription is for a schedule II opioid drug. Start Date: 05/11/22 Status: Ordered Vitamin D3 50,000 intl units oral capsule 1 capsule = 1,250 mcg, By Mouth, Every week, # 12 capsule, 0 Refills, Maintenance, 12/31/21 17:37:00 EDT, Capsule, Partial fill upon patient request if the prescription is for a schedule II opioid drug. 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 Active HYPERTENSION Confirmed Active Diabetic foot infection Confirmed Active Secondary hyperparathyroidism of renal origin Confirmed Active 1Type II 2campath induction Social History Social History Type Response Smoking Status Never smoker entered on: 09/07/14 Sex Patient Care team information Care Team Personnel Name: Yady Copeland RN Position: [facility] RN Member Role: Primary Care Nurse Name: Suze Villafuerte NP Position: [facility] Associate Professional Member Role: Primary Care Nurse Address: Address: [address] [place] [address]- [place] Name: Neetu Frost Position: [facility] PCO RN Member Role: Primary Care Nurse Name: Migel Cruz RN Position: [facility] RN Member Role: Primary Care Nurse Name: Cristina Spence Position: [facility] RN Member Role: Primary Care Nurse Name: Odin Rodriguez DO Position: [facility] Renal MD Member Role: Lifetime Consulting Physician Address: Address: [address] [place] [address] [address] [facility] [place] [address]- [place] Name: Frida Blanco RN Position: [facility] RN Member Role: Primary Care Nurse Name: Nik Esposito Position: [facility] Associate Professional Member Role: Lifetime Consulting Provider Address: Address: [address] [place] [address]- [place] Name: Jacoby Sood MD Position: [facility] Renal MD Member Role: Lifetime Consulting Physician Address: Address: [address] [place] [address] [address] [facility] [place] [address]- [place] Name: Ramonita Bardales RN Position: [facility] RN Member Role: Primary Care Nurse Name: Cony Alberts RN Position: [facility] SN RN Member Role: Primary Care Nurse Name: Zoraida Luo MD Position: Reference Physician Member Role: PCP Address: Address: [address] [place] [address]- [place] Name: Kaylan Barker RN Position: [facility] Onco RN Member Role: Primary Care Nurse Name: Meghann Mccracken RN Position: [facility] Hospital Welder Production Line Gas Member Role: Primary Care Nurse Name: Franc Jeong RN Position: [facility] SN RN Member Role: Primary Care Nurse Care Team Related Persons Name: HARSHILVÍCTOR Address: home [address] [place] [address] Name: WALKER CHUA Address: [place] [address]
--- OUTSIDE RECORDS SUMMARY | 2022-09-22 16:34 | XMS_ITS | Continuity of Care Document ---
Author Name Unknown Organization [facility] Address [address] [place] [address]- Care Team Providers Care Verse Writer Name Role Phone Zoraida Luo MD Primary Care Physician Encounter [facility] Date(s): 04/24/22 - 08/06/[address] [address] Attending Physician: Jaquan Duque MD Admitting Physician: Jaquan Duque MD Allergies, Adverse Reactions, Alerts Substance Reaction [...] 1Early/Late Reason: Med Not Available 2Result Comment: [id number], NOV 28 3Early/Late Reason: Med Not Available [...] tablet,2 Refills, Maintenance, 01/06/22 9:53:00 EDT, Tablet, [facility], Partial fillupon patient request if [...] drug. Start Date: 12/10/20 Status: Ordered ergocalciferol 17000 iu oral capsule 1 capsule = 50,000 [...] Maintenance, 03/20/21 13:35:00 EDT, ER Tablet, [facility], Partial fill upon patient request [...] each, 0 Refills, Maintenance, 04/24/22 14:42:00 EDT, [facility], ok to sub for [...] Care team information Care Team Personnel Name: Min ESPAÑA, Yady Cee Position: [facility] RN Member Role: Primary Care Nurse Name: Suze Villafuerte NP Position: [facility] Associate Professional Member Role: Primary Care Nurse Address: Address: [address] [place] [address]- [place] Name: Migel Cruz RN Position: [facility] RN Member Role: Primary Care Nurse Name: Cristina Spence Position: [facility] RN Member Role: Primary Care Nurse Name: Odin Rodriguez DO Position: [facility] Renal MD Member Role: Lifetime Consulting Physician Address: Address: [address] [facility] [address] [facility] [place] [address]- [place] Name: Frida Blanco RN Position: [facility] RN Member Role: Primary Care Nurse Name: Nik Esposito Position: [facility] Associate Professional Member Role: Lifetime Consulting Provider Address: Address: [address] [place] [address]- Name: Jacoby Sood MD Position: [facility] Renal MD Member Role: Lifetime Consulting Physician Address: Address: [address] [place] [address] [address] [facility] [place] [address]- Name: Ramnoita Bardales RN Position: [facility] RN Member Role: Primary Care Nurse Name: Cony Alberts RN Position: [facility] SN RN Member Role: Primary Care Nurse Name: Zoraida Luo MD Position: Reference Physician Member Role: PCP Address: Address: [address] [place] [address]- [place] Name: Kaylan Barker RN Position: [facility] Onco RN Member Role: Primary Care Nurse Name: Meghann Mccracken RN Position: [facility] Arm Maker Member Role: Primary Care Nurse Name: Franc Jeong RN Position: [facility] SN RN Member Role: Primary Care Nurse Care Team Related Persons Name: VÍCTOR CHUA Address: home [address] [place] [address] Name: WALKER CHUA Address: [place] [address]
--- OUTSIDE RECORDS SUMMARY | 2022-09-22 16:34 | XMS_ITS | Continuity of Care Document ---
Author Name Unknown Organization [facility] Address [address] [place] [address]- Care Team Providers Care Compacting Machine Operator/Tender Name Role Phone Zoraida Luo MD Primary Care Physician Encounter [facility] Date(s): 07/28/22 - 08/27/22 [facility] [address] [place] [address]- Allergies, Adverse Reactions, Alerts Substance Reaction Severity [...] 1Early/Late Reason: Med Not Available 2Result Comment: [id number], NOV 28 3Early/Late Reason: Med Not Available [...] drug. Start Date: 12/10/20 Status: Ordered ergocalciferol 23414 iu oral capsule 1 capsule = 50,000 [...] Refills, Maintenance, 03/20/21 13:35:00 EDT, ER Tablet, [facility], Partial fill upon patient request if [...] Personnel Name: Min ESPAÑA, Yady Cee Position: S RN Member Role: Primary Care Nurse Name: Noy PINEDA, Suze Melgar Position: [facility] Associate Professional Member Role: Primary Care Nurse Address: Address: [address] [place] [address]- [place] Name: Neetu Frost Position: [facility] PCO RN Member Role: Primary Care Nurse Name: Migel Cruz RN Position: [facility] RN Member Role: Primary Care Nurse Name: Cristina Spence Position: [facility] RN Member Role: Primary Care Nurse Name: Odin Rodriguez DO Position: [facility] Renal MD Member Role: Lifetime Consulting Physician Address: Address: [address] [place] [address] [address] [facility] [place] [address]- [place] Name: Frida Blanco RN Position: [facility] RN Member Role: Primary Care Nurse Name: Nik Esposito Position: [facility] Associate Professional Member Role: Lifetime Consulting Provider Address: Address: [address] [place] [address]- [place] Name: Jacoby Sood MD Position: [facility] Renal MD Member Role: Lifetime Consulting Physician Address: Address: [address] [place] [address] [address] [facility] [place] [place] [address]- Name: Ramonita Bardales RN Position: [facility] RN Member Role: Primary Care Nurse Name: Cony Alberts RN Position: [facility] SN RN Member Role: Primary Care Nurse Name: Zoraida Luo MD Position: Reference Physician Member Role: PCP Address: Address: [address] [place] [address]- [place] Name: Kaylan Barker RN Position: [facility] Onco RN Member Role: Primary Care Nurse Name: Meghann Mccracken RN Position: [facility] Alarm Mechanic Member Role: Primary Care Nurse Name: Franc Jeong RN Position: [facility] SN RN Member Role: Primary Care Nurse Care Team Related Persons Name: VÍCTOR CHUA Address: [address] [place] [address] Name: WALKER CHUA Address: [place] [address]
--- NOTE | 2022-09-22 18:03 | PC.NURSE ---
PATRIA Colón and this RN attempted for IV, no success. Dr. Daly attempted for two ultrasound guided IVs with no success. Verbal order from Dr. Daly to discontinue to fluids
[2022-09-22 18:24] VITALS: BP 141/89; PULSE 70
[2022-09-22 18:27] VITALS: BP 146/93; BP 150/84; PULSE 74
[2022-09-22 18:36] LABS: COVID-19 Test Negative (Negative); IDNOW Serial# 08D9AD1C
[2022-09-22] MEDS: Lidocaine 4 % Patch ADH..PATCH 1 PATCH TRANSDERMA (18:49)
[2022-09-22] MEDS: Acetaminophen 325 MG TABLET 975 MG PO (18:51)
[2022-09-22 19:09] VITALS: BP 130/81; PULSE 87; RESP 15; TEMP 37.2; O2SAT 97
== END 2022-09-22 19:39 | disposition home or self-care (01) ==
PROVIDERS: Physician Assistant; Emergency Provider Student in an Organized Health Care Education/Training Program; PCP Family Medicine
DX: M79.10 Myalgia, unspecified site (principal); E11.40 Type 2 diabetes mellitus with diabetic neuropathy, unspecified; E11.22 Type 2 diabetes mellitus with diabetic chronic kidney disease; I12.9 Hypertensive chronic kidney disease with stage 1 through stage 4 chronic kidney disease, or unspecified chronic kidney disease; N18.9 Chronic kidney disease, unspecified; R10.9 Unspecified abdominal pain; Z20.822 Contact with and (suspected) exposure to COVID-19; Z79.82 Long term (current) use of aspirin; Z79.4 Long term (current) use of insulin; Z79.899 Other long term (current) drug therapy; Z79.02 Long term (current) use of antithrombotics/antiplatelets
CPT/HCPCS: 36415; 71046; 74176; 80053; 81001; 83735; 83880; 84484; 85025; 87635; 93005; 99284

== ENCOUNTER → 2022-09-24 08:56 | Outpatient (BNVA) | payer MEDICAID, SELFPAY | PROVIDERS: PCP Family Medicine; Referring Provider General Practice; Visit Provider Internal Medicine | DX: I25.10 Atherosclerotic heart disease of native coronary artery without angina pectoris (principal); I49.8 Other specified cardiac arrhythmias; R07.2 Precordial pain | CPT/HCPCS: 99202 ==

== ENCOUNTER → 2022-09-29 09:15 | Outpatient (REF) | payer MEDICAID, SELFPAY ==
--- NOTE | 2022-09-29 09:20 | CA_ITS ---
Transthoracic Echocardiogram Patient (Last, First, Middle): Tito Sheriff O Gender: Male Date of : 1965 Age: 57 Procedure Date: 09/29/2022 Procedure Type: Transthoracic Echocardiogram Location: OP Height: 160.02 cm Weight: 81.65 kg BSA: 1.85 m2 Heart Rate: bpm BP: 122 / 84 mmHg Wheelage Clerk: SINA Referring MD: Maxi Villeda MD Inventory Assistant: Emiliano Cabrera MD Symptoms: I49.8 - Other specified cardiac arrhythmias Study Quality: Fair ECG Rhythm: Sinus Conclusions: - 1. Normal LV systolic function with impaired relaxation filling pattern 2. Mildly dilated left atrium 3. No significant abnormality of cardiac valvular Doppler 4. Normal RV systolic pressure 5. Small pericardial effusion Findings Left Ventricle Normal left ventricular size, thickness, and systolic function. The visually estimated ejection fraction is between 55-60%. Spectral Doppler is indicative of an impaired relaxation filling pattern. E/E prime ratio is between 8 and 15 consistent with indeterminate filling pressures. Right Ventricle Normal right ventricular cavity size and systolic function. Atria The left atrium is mildly dilated. Interatrial shunt cannot be excluded. The right atrium is normal in size. Aortic Valve Normal aortic valve structure and function. There is no aortic valve stenosis. There is no aortic valve regurgitation. Mitral Valve There is mild anterior and posterior mitral leaflet thickening. There is trace mitral valve regurgitation. There is no mitral valve stenosis. Pulmonic Valve The pulmonic valve was not well visualized. Tricuspid Valve Likely normal tricuspid valve structure and function. There is trace tricuspid valve regurgitation. The right ventricular systolic pressure is normal. The right ventricular systolic pressure is 30 mmHg. Normal right atrial pressure. There is no evidence of pulmonary hypertension. Great Vessels All visible segments of the aorta are normal in size. The pulmonary artery was not well visualized. Small plaque is seen in the sino tubular ridge. Venous The inferior vena cava is normal in size and collapses greater than 50% with inspiration. Pericardium/Pleural There is a small loculated pericardial effusion overlying the left ventricle. Measurements 2D Linear Measurements IVSd: 1.07 0.6-0.9/0.6-1.0 cm LVIDd: 5.32 3.9-5.3/4.2-5.9 cm LVIDd Index: 2.88 2.4-3.2/2.2-3.1 cm/m2 LVIDs: 3.79 2.0-3.6 cm LVPWd: 0.90 0.7-1.1 cm LA Diam: 3.50 2.7-3.8/3.0-4.0 cm LAIDs Index: 1.89 1.5-2.3 cm/m2 LV Mass: 246.99 67-162/88-224 g LV Mass Index: 133.51 43-95/49-115 g/m2 LVOT Diam: 2.10 3.0+(-)1.3 cm 2D Systolic Function EF 4C: 56.30 >55% EF 2C: 63.00 >55% EF BiP: 59.10 >55% Mitral Valve MV Pk E: 0.79 MV PK A: 0.68 MV Decel Time: 177.00 E/A: 1.20 E'Lateral: 8.05 E'Medial: 4.57 E/E' Med: 17.20 E/E' Lat: 9.80 PHT: 52.00 MVA PHT: 4.23 Decel Whitfield: 4.46 Aortic Valve AoV Pk Pierce: 1.73 AoV Mn Pierce: 1.24 AoV VTI: 0.39 AoV Pk Grad: 12.00 Aov Mn Grad: 7.00 YUMIKO Cont.VTI: 2.03 LVOT LVOT Pk Pierce: 1.01 LVOT Mn Pierce: 0.72 LVOT VTI: 0.23 LVOT Pk Grad: 4.00 LVOT Mn Grad: 2.00 LVOT Diam: 2.10 LVOT Area: 3.46 Diastolic Function MV Pk E: 0.79 MV Pk A: 0.68 E/A: 1.20 E'Medial: 4.57 E/E' Med: 17.20 E' Laterial: 8.05 E/E' Lat: 9.80 Right Ventricle TAPSE (mm): 19.40 TVS' Pierec: 12.50 Tricuspid Valve TR Pk Pierce: 2.37 TR Pk Grad: 22.00 RA Press: 8.00 RVSP: 30.00 Great Vessels Aorta Sinus of Valsalva: 3.27 2.0-3.[address] Ridge: 2.45 1.7-3.4 cm Ao Asc: 3.10 2.1-3.4 cm Updated in Other Vendor System with Status of Final Emiliano Cabrera MD electronically signed on 09/30/2022 8:19:33 AM with status of Final
== END ==
LOC: HO.CARD 09:15
PROVIDERS: PCP Family Medicine; Visit Provider Internal Medicine
DX: I49.8 Other specified cardiac arrhythmias (principal)
CPT/HCPCS: 93306

== ENCOUNTER 2022-10-03 21:13 | Emergency (ER) | payer MEDICAID, SELFPAY ==
[2022-10-03 21:24] VITALS: BP 167/102; PULSE 83; RESP 16; TEMP 36.6; O2SAT 99; BMI 31.8
[2022-10-03 22:16] LABS: Hematocrit 39.8 % (42.0-52.0); Hemoglobin 12.9 g/dl (14.0-18.0); Mean Corpuscular HGB Conc 32.4 g/dl (31.0-36.0); Mean Corpuscular Hemoglobin 27.6 pg (27.0-33.0); Mean Platelet Volume 10.9 fL (9.4-12.4); Platelet Count 223 X10*3/uL (160-400); Red Blood Count 4.68 X10*6/uL (4.60-5.80); Red Cell Distribution Width 14.6 % (11.0-16.0); White Blood Count 11.8 X10*3/uL (4.8-10.8)
[2022-10-03 22:42] LABS: Alanine Aminotransferase 24 U/L (0-40); Albumin Level 3.6 g/dL (3.5-5.0); Alkaline Phosphatase 91 U/L (39-117); Anion Gap 13 (12-20); Aspartate Amino Transferase 17 U/L (5-37); Bilirubin Total 0.5 mg/dL (0.0-1.0); Blood Urea Nitrogen 30 mg/dL (9-16); Calcium 8.5 mg/dL (8.4-10.2); Carbon Dioxide 16 mmol/L (22-29); Chloride 117 mmol/L (96-108); Creatinine Clr Calc Pharmacy 25.3; Estimated Glomerular Filt Rate 21; Glucose Random 154 mg/dL (60-115); Potassium 3.9 mmol/L (3.3-5.1); Sodium 142 mmol/L (135-145)
[2022-10-03] MEDS: Lidocaine HCl 1 % MPF 5 ML VIAL INFILTRATI (23:12)
[2022-10-03] MEDS: cephALEXin 500 MG CAPSULE PO (23:12)
[2022-10-03] MEDS: Doxycycline Monohydrate 100 MG CAPSULE PO (23:12)
--- NOTE | 2022-10-03 23:13 | ED_ITS ---
HPI - Skin/Abscess/Foreign Bdy General Chief complaint: Skin/Abscess/Foreign Body Stated complaint: cyst lower abd pain Time Seen by Provider: 10/03/22 22:47 Source: patient Mode of arrival: ambulatory Limitations: no limitations History of Present Illness HPI narrative: Patient with abscess in the left groin area which started about 3 days ago small follicle got worse with surrounding redness was seen at PCP on 09/30 started on doxycycline no fever no chills patient is status post renal transplant on tacrolimus and is diabetic. Blood sugar been stable no fever or chills Related Data Home Medications Medication Instructions Recorded Confirmed albuterol sulfate 2.5 mg/3 mL 1 amp inhalation TID PRN 08/26/21 09/24/22 (0.083 %) solution for nebulization Respiratory Distress albuterol sulfate 90 mcg/actuation 1 puff PO Q4H PRN wheezing 08/26/21 09/24/22 aerosol inhaler (ProAir HFA) amlodipine 5 mg tablet 5 mg PO DAILY 08/26/21 09/24/22 aspirin 81 mg tablet,delayed 81 mg PO DAILY 08/26/21 09/24/22 release atorvastatin 10 mg tablet 10 mg PO DAILY 08/26/21 09/24/22 calcitriol 0.5 mcg capsule 0.5 mcg PO DAILY 08/26/21 09/24/22 cholecalciferol (vitamin D3) 1,250 1 cap PO SA@1000 08/26/21 09/24/22 mcg (50,000 unit) capsule duloxetine 20 mg capsule,delayed 20 mg PO DAILY 08/26/21 09/24/22 release insulin glargine 100 unit/mL (3 44 unit subcut BEDTIME 08/26/21 09/24/22 mL) subcutaneous pen (Lantus Solostar U-100 Insulin) insulin lispro 100 unit/mL 10 unit subcut TIDWM 08/26/21 09/24/22 subcutaneous pen (Humalog KwikPen (U-100) Insulin) lidocaine 5 % topical patch 1 patch topical DAILY 08/26/21 09/24/22 (Lidoderm) metoclopramide HCl 10 mg tablet 10 mg PO BEDTIME 08/26/21 09/24/22 mupirocin 2 % topical ointment 1 appl topical TID 08/26/21 09/24/22 tacrolimus 1 mg capsule, 2 mg PO DAILY 08/26/21 09/24/22 immediate-release tramadol 50 mg tablet 50 mg PO Q8H PRN moderate pain 08/26/21 09/24/22 diclofenac sodium 1 % topical gel 2 g topical QID PRN Pain 12/11/21 09/24/22 famotidine 40 mg tablet 40 mg PO BEDTIME 12/11/21 09/24/22 gabapentin 100 mg capsule 100 mg PO BEDTIME 12/11/21 09/24/22 loperamide 2 mg tablet 2 mg PO Q6H PRN Diarrhea 12/11/21 09/24/22 pantoprazole 40 mg tablet,delayed 40 mg PO BID 12/11/21 09/24/22 release hydroxyzine HCl 10 mg tablet 10 mg PO 09/24/22 09/24/22 loperamide 2 mg capsule 2 mg PO BID PRN diarrhea 09/24/22 09/24/22 trazodone 50 mg tablet 25 mg PO BEDTIME 09/24/22 09/24/22 Previous Rx's Medication Instructions Recorded metoprolol succinate 25 mg 25 mg PO DAILY #90 tabs 09/24/22 tablet,extended release 24 hr (Toprol XL) Allergies Allergy/AdvReac Type Severity Reaction Status Date / Time hydromorphone [From DILAUDID] Allergy Mild ITCHINESS Verified 09/24/22 09:29 diphenhydramine Allergy Unknown UNK Verified 09/24/22 09:29 [From BENADRYL] regadenoson [From Lexiscan] AdvReac Mild Itching Verified 09/24/22 09:29 Review of Systems Review of Systems: Yes all other systems are reviewed and are negative REPLACED BY [facility] Past Medical History Medical History (Updated 10/03/22 @ 23:50 by Rodrigo Aleman MD) Amputation of fifth toe of right foot Chronic hyperglycemia Diabetes History of osteomyelitis HTN (hypertension) Surgical History (Updated 10/03/22 @ 23:50 by Rodrigo Aleman MD) H/O arteriovenostomy for renal dialysis Renal transplant recipient Family History Family History Other Diabetes No family history of coronary artery disease Social History Social History Household Members: None Housing: House Do you presently have visiting nurse or other home services: No Alcohol intake: never Patient Tobacco Use Status: Never used Tobacco Advance Directives: Yes Advance Directives on File: Yes Advance Directives Date on File: 01/21/22 service: No Current occupational status: disabled Physical Exam Vital Signs: Vital Signs: Last Vital Signs Temp 97.8 F 10/03/22 21:24 Pulse 83 10/03/22 21:24 Resp 16 10/03/22 21:24 BP 167/102 H 10/03/22 21:24 Pulse Ox 99 10/03/22 21:24 O2 Del Method Room Air 10/03/22 21:24 BMI result Body Mass Index 31.8 Appearance: Alert. Oriented X3. No acute distress. Eyes: PERRLA, No Nystagmus ENT: Pharynx normal. Oral Mucosa moist Neck: Normal inspection. Neck supple. CVS: Normal heart rate and rhythm. Pulses normal. Respiratory: No respiratory distress. Equal air entry bilateral, Abdomen: Soft and nontender. Bowel sounds are present, Extremities: 4 x 4 cm left groin abscess draining pus Neuro: Oriented X 3. Medications Administered Discontinued Medications Generic Name Dose Route Start Last Admin Trade Name Freq PRN Reason Stop Dose Admin Cephalexin HCl 500 mg 10/03/22 22:53 10/03/22 23:12 Cephalexin 500 Mg Capsule PO 10/03/22 22:54 500 mg ONCE ONE Administration Doxycycline Monohydrate 100 mg 10/03/22 22:53 10/03/22 23:12 Doxycycline Monohydrate 100 Mg Capsule PO 10/03/22 22:54 100 mg ONCE ONE Administration Lidocaine HCl 5 ml 10/03/22 22:53 10/03/22 23:12 Lidocaine Hcl 1 % Mpf 5 Ml Vial INFILTRATI 10/03/22 22:54 5 ml ONCE ONE Administration Medical Decision Making Lab Data [facility] Lab Attestation statement: I reviewed the patient's lab results. 10/03/22 22:05 10/03/22 22:05 Labs: Lab Results 10/03/22 10/03/22 Range/Units 22:05 22:05 WBC 11.8 H (4.8-10.8) X10*3/uL RBC 4.68 (4.60-5.80) X10*6/uL Hgb 12.9 L (14.0-18.0) g/dl Hct 39.8 L (42.0-52.0) % MCV 85.0 (80.0-98.0) fL MCH 27.6 (27.0-33.0) pg MCHC 32.4 (31.0-36.0) g/dl RDW 14.6 (11.0-16.0) % Plt Count 223 (160-400) X10*3/uL MPV 10.9 (9.4-12.4) fL Absolute Nucleated RBC 0.000 (0.0-0.012) X10*3/uL Nucleated RBC % (auto) 0.0 (0.0-0.2) /100WBC Sodium 142 (135-145) mmol/L Potassium 3.9 D (3.3-5.1) mmol/L Chloride 117 H (96-108) mmol/L Carbon Dioxide 16 L (22-29) mmol/L Anion Gap 13 (12-20) BUN 30 H (9-16) mg/dL Creatinine 3.04 H (0.5-1.4) mg/dL Estim Creat Clear Calc 25.3 Estimated GFR 21 Random Glucose 154 H (60-115) mg/dL Calcium 8.5 (8.4-10.2) mg/dL Total Bilirubin 0.5 (0.0-1.0) mg/dL AST 17 (5-37) U/L ALT 24 (0-40) U/L Alkaline Phosphatase 91 (39-117) U/L Total Protein 6.0 L (6.5-8.0) g/dL Albumin 3.6 (3.5-5.0) g/dL Procedures Abscess I/D Site: abdomen (Left groin) Local Anesthetic: lidocaine 1% Amount of anesthesia used (mL): 5 Technique: incised with blade Amount of fluid expressed (mL): 2 Sent for culture/gram staining?: Yes Irrigation: No Packing used?: iodoform Discharge Plan Discharge Clinical Impression: Abscess of skin or subcutaneous tissue Patient Disposition: Home, Self-Care Instructions: Abscess Incision and Drainage (DC) Additional Instructions: Local care as advised Continue doxycycline Will add cephalexin 500 mg 4 times a day along with doxycycline Follow with PCP Remove the packing in 2 days Atenci?n local seg?n lo recomendado Continuar doxiciclina Agregar? cefalexina 500 mg 4 veces al d?a junto con doxiciclina Seguir con PCP Retire el embalaje en 2 d?as. Prescriptions: No Action albuterol sulfate 2.5 mg /3 mL (0.083 %) solution for nebulization 1 amp inhalation TID PRN (Reason: Respiratory Distress) atorvastatin 10 mg tablet 10 mg PO DAILY amlodipine 5 mg tablet 5 mg PO DAILY aspirin 81 mg tablet,delayed release (DR/EC) 81 mg PO DAILY tramadol 50 mg tablet 50 mg PO Q8H PRN (Reason: moderate pain) calcitriol 0.5 mcg capsule 0.5 mcg PO DAILY lidocaine [Lidoderm] 5 % adhesive patch,medicated 1 patch topical DAILY Protocol: Apply to: Apply to: BACK mupirocin 2 % ointment 1 appl topical TID Protocol: Apply to: Apply to: AFFECTED AREA albuterol sulfate [ProAir HFA] 90 mcg/actuation HFA aerosol inhaler 1 puff PO Q4H PRN (Reason: wheezing) tacrolimus 1 mg capsule 2 mg PO DAILY Patient Comments: PATIENTS DOSE WAS RECENTLY DECREASED TO 2 IN THE AM INSTEAD OF 3 metoclopramide HCl 10 mg tablet 10 mg PO BEDTIME insulin lispro [Humalog KwikPen Insulin] 100 unit/mL insulin pen 10 unit subcut TIDWM duloxetine 20 mg capsule,delayed release(DR/EC) 20 mg PO DAILY cholecalciferol (vitamin D3) 1,250 mcg (50,000 unit) capsule 1 cap PO SA@1000 insulin glargine [Lantus Solostar U-100 Insulin] 100 unit/mL (3 mL) insulin pen 44 unit subcut BEDTIME famotidine 40 mg Tablet 40 mg PO BEDTIME pantoprazole 40 mg Tablet,Delayed Release (Dr/Ec) 40 mg PO BID gabapentin 100 mg Capsule 100 mg PO BEDTIME loperamide 2 mg Tablet 2 mg PO Q6H PRN (Reason: Diarrhea) diclofenac sodium 1 % Gel 2 g TOPICAL QID PRN (Reason: Pain) Rx Instructions: apply to single elbow, wrist or hand; for hand includes palm/fingers/back of hand loperamide 2 mg capsule 2 mg PO BID PRN (Reason: diarrhea) hydroxyzine HCl 10 mg tablet 10 mg PO trazodone 50 mg tablet 25 mg PO BEDTIME metoprolol succinate [Toprol XL] 25 mg tablet extended release 24 hr 25 mg PO DAILY Qty: 90 3RF Print Language: Bahraini
[2022-10-03 23:55] VITALS: BP 160/101; PULSE 81; RESP 14; O2SAT 98
== END 2022-10-03 23:56 | disposition home or self-care (01) ==
PROVIDERS: Emergency Provider Internal Medicine; PCP Family Medicine
DX: L02.214 Cutaneous abscess of groin (principal); E11.9 Type 2 diabetes mellitus without complications; I10 Essential (primary) hypertension; Z89.421 Acquired absence of other right toe(s); Z79.82 Long term (current) use of aspirin; Z79.02 Long term (current) use of antithrombotics/antiplatelets; Z79.4 Long term (current) use of insulin; Z79.899 Other long term (current) drug therapy
CPT/HCPCS: 10060; 36415; 80053; 85027; 87070; 87077; 87186; 87205; 99284

== ENCOUNTER 2022-10-06 15:52 | Emergency (ER) | payer MEDICAID, SELFPAY ==
[2022-10-06 16:17] VITALS: BP 120/84; PULSE 74; RESP 18; TEMP 36.8; O2SAT 99; BMI 34.9
--- NOTE | 2022-10-06 16:31 | ED.WOUNDLAC ---
HPI - Wound/Laceration General Chief Complaint: Wound/Laceration Stated Complaint: Suture removal Time Seen by Provider: 10/06/22 16:31 Source: patient Mode of arrival: ambulatory Limitations: no limitations History of Present Illness HPI narrative: 57-year-old male with a history of renal transplant on chronic immunosuppression, diabetes on insulin, HTN, HLD who presents to the ER for abscess packing removal. He was seen here on October 03, had left groin abscess incised and drained with iodoform packing placed. He has been on doxycycline and Keflex. He states he has some ongoing pain and bumps in the area. No further drainage. No fevers. Glucose has been 100 range. No spreading of redness, warmth or pain. Onset (ago): hour(s) Location: back Patient tetanus UTD: Yes Context: accidental Associated symptoms: none Related Data Home Medications Medication Instructions Recorded Confirmed albuterol sulfate 2.5 mg/3 mL 1 amp inhalation TID PRN 08/26/21 09/24/22 (0.083 %) solution for nebulization Respiratory Distress albuterol sulfate 90 mcg/actuation 1 puff PO Q4H PRN wheezing 08/26/21 09/24/22 aerosol inhaler (ProAir HFA) amlodipine 5 mg tablet 5 mg PO DAILY 08/26/21 09/24/22 aspirin 81 mg tablet,delayed 81 mg PO DAILY 08/26/21 09/24/22 release atorvastatin 10 mg tablet 10 mg PO DAILY 08/26/21 09/24/22 calcitriol 0.5 mcg capsule 0.5 mcg PO DAILY 08/26/21 09/24/22 cholecalciferol (vitamin D3) 1,250 1 cap PO SA@1000 08/26/21 09/24/22 mcg (50,000 unit) capsule duloxetine 20 mg capsule,delayed 20 mg PO DAILY 08/26/21 09/24/22 release insulin glargine 100 unit/mL (3 44 unit subcut BEDTIME 08/26/21 09/24/22 mL) subcutaneous pen (Lantus Solostar U-100 Insulin) insulin lispro 100 unit/mL 10 unit subcut TIDWM 08/26/21 09/24/22 subcutaneous pen (Humalog KwikPen (U-100) Insulin) lidocaine 5 % topical patch 1 patch topical DAILY 08/26/21 09/24/22 (Lidoderm) metoclopramide HCl 10 mg tablet 10 mg PO BEDTIME 08/26/21 09/24/22 mupirocin 2 % topical ointment 1 appl topical TID 08/26/21 09/24/22 tacrolimus 1 mg capsule, 2 mg PO DAILY 08/26/21 09/24/22 immediate-release tramadol 50 mg tablet 50 mg PO Q8H PRN moderate pain 08/26/21 09/24/22 diclofenac sodium 1 % topical gel 2 g topical QID PRN Pain 12/11/21 09/24/22 famotidine 40 mg tablet 40 mg PO BEDTIME 12/11/21 09/24/22 gabapentin 100 mg capsule 100 mg PO BEDTIME 12/11/21 09/24/22 loperamide 2 mg tablet 2 mg PO Q6H PRN Diarrhea 12/11/21 09/24/22 pantoprazole 40 mg tablet,delayed 40 mg PO BID 12/11/21 09/24/22 release hydroxyzine HCl 10 mg tablet 10 mg PO 09/24/22 09/24/22 loperamide 2 mg capsule 2 mg PO BID PRN diarrhea 09/24/22 09/24/22 trazodone 50 mg tablet 25 mg PO BEDTIME 09/24/22 09/24/22 Previous Rx's Medication Instructions Recorded metoprolol succinate 25 mg 25 mg PO DAILY #90 tabs 09/24/22 tablet,extended release 24 hr (Toprol XL) Allergies Allergy/AdvReac Type Severity Reaction Status Date / Time hydromorphone [From DILAUDID] Allergy Mild ITCHINESS Verified 10/06/22 16:17 diphenhydramine Allergy Unknown UNK Verified 10/06/22 16:17 [From BENADRYL] regadenoson [From Lexiscan] AdvReac Mild Itching Verified 10/06/22 16:17 Review of Systems Review of Systems: Yes all other systems are reviewed and are negative PMFSH Past Medical History Medical History (Updated 10/06/22 @ 16:53 by ADONIS Menard) Amputation of fifth toe of right foot Chronic hyperglycemia Diabetes History of osteomyelitis HTN (hypertension) Surgical History (Updated 10/03/22 @ 23:50 by Rodrigo Aleman MD) H/O arteriovenostomy for renal dialysis Renal transplant recipient Family History Family History Other Diabetes No family history of coronary artery disease Social History Social History Household Members: None Housing: House Do you presently have visiting nurse or other home services: No Alcohol intake: never Patient Tobacco Use Status: Never used Tobacco Advance Directives: Yes Advance Directives on File: Yes Advance Directives Date on File: 01/21/22 service: No Current occupational status: disabled Physical Exam Vital Signs: Vital Signs: Last Vital Signs Temp 98.3 F 10/06/22 16:17 Pulse 74 10/06/22 16:17 Resp 18 10/06/22 16:17 BP 120/84 10/06/22 16:17 Pulse Ox 99 10/06/22 16:17 O2 Del Method Room Air 10/06/22 16:17 BMI result Body Mass Index 34.9 Appearance: Alert. Oriented X3. No acute distress. HEENT: normal inspection CVS: Normal heart rate and rhythm. Pulses normal. Respiratory: No respiratory distress. Skin: Skin warm and dry. Normal skin color. Normal skin turgor. No rashes. Extremities: left inguinal area with a small-moderate area of erythema, minimal warmth and tenderness, 1cm incision without packing in place, healed over without any drainage. normal inspection of the testicles, no warmth or erythema Neuro: Oriented X 3. No motor deficit. No sensory deficit. Medical Decision Making Medical Decision Making MDM Narrative: 57 yo male with history of DM, renal transplant on immunosuppression who presents to the ER for evaluation of left inguinal abscess and packing removal. On arrival to the area the packing was already out. The abscess appears to be healing appropriately. No drainage or fluctuance. He has doxy/keflex to finish at home. Discussed importance of warm compresses, close outpatient follow up. Stable for d/c home. Differential Diagnosis Differential Diagnoses: The differential diagnosis associated with the presentation includes healing absess, cellulitis, no evidence of worsening infection or Theresa's gangrene External Record Review External record reviewed: Outpatient record, Prior outpatient labs and Prior outpatient radiology Prescription Management I considered prescription management with: Antibiotic Chronic Conditions Patient?s care impacted by: Diabetes and Other (transplant patient) Discharge Plan Discharge Clinical Impression: Abscess Patient Disposition: Home, Self-Care Instructions: Abscess Follow-up (ED) Additional Instructions: Your infection appears to be healing appropriately. Use warm compresses to the area several times per day. Continue your previously prescribed antibiotics as directed, complete the entire course. Do not shave in that area until the infection is completely resolved. If you develop new or worsening symptoms call 911 or come back to the ER for further evaluation. Jaramillo infecci?n parece estar sanando apropiadamente. Use compresas tibias en el ?ivory varias veces al d?a. Contin?e con los antibi?ticos recetados previamente seg?n las indicaciones, complete todo el curso. No te afeites en mei bailey hasta que la infecci?n se haya resuelto por completo. Si desarrolla s?ntomas nuevos o que empeoran, llame al 911 o regrese a la toby de emergencias para grzegorz evaluaci?n adicional. Prescriptions: No Action albuterol sulfate 2.5 mg /3 mL (0.083 %) solution for nebulization 1 amp inhalation TID PRN (Reason: Respiratory Distress) atorvastatin 10 mg tablet 10 mg PO DAILY amlodipine 5 mg tablet 5 mg PO DAILY aspirin 81 mg tablet,delayed release (DR/EC) 81 mg PO DAILY tramadol 50 mg tablet 50 mg PO Q8H PRN (Reason: moderate pain) calcitriol 0.5 mcg capsule 0.5 mcg PO DAILY lidocaine [Lidoderm] 5 % adhesive patch,medicated 1 patch topical DAILY Protocol: Apply to: Apply to: BACK mupirocin 2 % ointment 1 appl topical TID Protocol: Apply to: Apply to: AFFECTED AREA albuterol sulfate [ProAir HFA] 90 mcg/actuation HFA aerosol inhaler 1 puff PO Q4H PRN (Reason: wheezing) tacrolimus 1 mg capsule 2 mg PO DAILY Patient Comments: PATIENTS DOSE WAS RECENTLY DECREASED TO 2 IN THE AM INSTEAD OF 3 metoclopramide HCl 10 mg tablet 10 mg PO BEDTIME insulin lispro [Humalog KwikPen Insulin] 100 unit/mL insulin pen 10 unit subcut TIDWM duloxetine 20 mg capsule,delayed release(DR/EC) 20 mg PO DAILY cholecalciferol (vitamin D3) 1,250 mcg (50,000 unit) capsule 1 cap PO SA@1000 insulin glargine [Lantus Solostar U-100 Insulin] 100 unit/mL (3 mL) insulin pen 44 unit subcut BEDTIME famotidine 40 mg Tablet 40 mg PO BEDTIME pantoprazole 40 mg Tablet,Delayed Release (Dr/Ec) 40 mg PO BID gabapentin 100 mg Capsule 100 mg PO BEDTIME loperamide 2 mg Tablet 2 mg PO Q6H PRN (Reason: Diarrhea) diclofenac sodium 1 % Gel 2 g TOPICAL QID PRN (Reason: Pain) Rx Instructions: apply to single elbow, wrist or hand; for hand includes palm/fingers/back of hand loperamide 2 mg capsule 2 mg PO BID PRN (Reason: diarrhea) hydroxyzine HCl 10 mg tablet 10 mg PO trazodone 50 mg tablet 25 mg PO BEDTIME metoprolol succinate [Toprol XL] 25 mg tablet extended release 24 hr 25 mg PO DAILY Qty: 90 3RF Referrals: Zoraida Luo MD [Primary Care Provider] - (f.u left groin abscess) Interventions: ED Discharge Assessment Last Done: 10/06/22 17:05 Discharge Date/Time: 10/06/22 17:05 Print Language: Arabic
== END 2022-10-06 17:05 | disposition home or self-care (01) ==
PROVIDERS: Emergency Provider Emergency Medicine Emergency Medical Services; PCP Family Medicine
DX: Z48.01 Encounter for change or removal of surgical wound dressing (principal); L02.214 Cutaneous abscess of groin; E11.9 Type 2 diabetes mellitus without complications; I10 Essential (primary) hypertension; E78.5 Hyperlipidemia, unspecified; Z79.02 Long term (current) use of antithrombotics/antiplatelets; Z79.4 Long term (current) use of insulin; Z79.899 Other long term (current) drug therapy
CPT/HCPCS: 99282

== ENCOUNTER 2022-10-20 02:57 | Observation (INO) | payer MEDICAID, SELFPAY ==
[2022-10-20] VITALS (10 sets, daily range): BP systolic 143–189; BP diastolic 79–107; PULSE 67–80; RESP 12–18; TEMP 36.6–36.7; O2SAT 97–99; BMI 33.7
--- NOTE | ~2022-10-20 | XR_ITS ---
EXAMINATION: XR FOOT, RIGHT CLINICAL INFORMATION: Third toe infection COMPARISON: Previous x-ray most recent February 2022 TECHNIQUE: AP, lateral, and oblique views of the right foot. FINDINGS: There is amputation of the fifth toe. Surgical margin appears slightly irregular but similar to prior exam. No fracture, dislocation or x-ray evidence of osteomyelitis. Mild degenerative changes of the midfoot and first MTP joint. Severe arterial vascular calcification. No abnormal air collection or foreign body seen in the soft tissues. XR/XR foot RT min 3V IMPRESSION: No evidence of osteomyelitis. Stable post indentation changes to the fifth toe.
--- NOTE | ~2022-10-20 | XR_ITS ---
EXAMINATION: XR CHEST CLINICAL INFORMATION: Shortness of breath. COMPARISON: 09/22/2022 chest radiographs. TECHNIQUE: Frontal view of the chest was obtained. FINDINGS: No significant abnormality is noted involving the heart, lungs, mediastinum, bony thorax or soft tissues. Partial visualization of left axillary surgical clips and vascular stent. XR/XR chest 1V IMPRESSION: No acute cardiopulmonary process.
--- NOTE | ~2022-10-20 | XR_ITS ---
EXAMINATION: XR SHOULDER, LEFT CLINICAL INFORMATION: Shoulder pain COMPARISON: X-ray 02/03/2018 TECHNIQUE: AP external rotation, Grashey, scapular Y, and axillary views of the left shoulder. FINDINGS: Mild-moderate acromioclavicular arthritis. There is a 3 mm ossification adjacent to the inferior glenoid. This is new as compared to the prior study. This could represent sequela of trauma, off indeterminate age versus loose body. No other acute fracture or dislocation is identified. Postsurgical changes, stent graft and metallic densities in the soft tissues medial to the proximal humerus. Intact left clavicle. Left lung is clear. XR/XR shoulder LT 1V IMPRESSION: 3 mm ossification inferior to the glenoid, new as compared to the prior study. Differential consideration include age-indeterminate fracture fragment versus loose body. No additional acute fracture or dislocation. [id number] acromial clavicular arthritis.
--- NOTE | 2022-10-20 07:55 | ECG_ITS ---
Test Reason : Chest Pain Blood Pressure : / mmHG Vent. Rate : 077 BPM Atrial Rate : 077 BPM P-R Int : 126 ms QRS Dur : 102 ms QT Int : 394 ms P-R-T Axes : 029 -36 110 degrees QTc Int : 445 ms Normal sinus rhythm Left axis deviation Minimal voltage criteria for LVH, may be normal variant ( [place] product ) T wave abnormality, consider lateral ischemia Abnormal ECG When compared with ECG of 22-SEP-2022 13:47, Premature atrial complexes are no longer Present Referred By: Arcenio Odonnell Electronically Signed By:ILDEFONSO LEIJA MD
--- NOTE | 2022-10-20 08:01 | ED.GENADULT ---
HPI - General Adult General Chief complaint: Fall Stated complaint: Fall Time Seen by Provider: 10/20/22 07:55 Source: patient and translator and interpreter Mode of arrival: ambulatory Limitations: no limitations History of Present Illness HPI narrative: 57-year-old male Albanian-speaking with past history of DM, HTN patient came in for evaluation after syncopal episode last night. Patient was at home when he felt chest pain followed by LOC and falling down landing on his face and chest, patient lost memory of the event but when he woke up this morning complaining of left-sided chest pain. No SOB. No neck pain. No headache. Status post kidney transplant not on hemodialysis for the past 10 years. Related Data Home Medications Medication Instructions Recorded Confirmed albuterol sulfate 2.5 mg/3 mL 1 amp inhalation TID PRN 08/26/21 10/20/22 (0.083 %) solution for nebulization Respiratory Distress albuterol sulfate 90 mcg/actuation 2 puff PO Q4H PRN wheezing 08/26/21 10/20/22 aerosol inhaler (ProAir HFA) amlodipine 5 mg tablet 5 mg PO DAILY 08/26/21 10/20/22 aspirin 81 mg tablet,delayed 81 mg PO DAILY 08/26/21 10/20/22 release atorvastatin 10 mg tablet 10 mg PO DAILY 08/26/21 10/20/22 calcitriol 0.5 mcg capsule 0.5 mcg PO DAILY 08/26/21 10/20/22 cholecalciferol (vitamin D3) 1,250 1 cap PO SA@1000 08/26/21 10/20/22 mcg (50,000 unit) capsule duloxetine 20 mg capsule,delayed 20 mg PO DAILY 08/26/21 10/20/22 release insulin glargine 100 unit/mL (3 48 unit subcut BEDTIME 08/26/21 10/20/22 mL) subcutaneous pen (Lantus Solostar U-100 Insulin) insulin lispro 100 unit/mL 5 unit subcut TIDWM 08/26/21 10/20/22 subcutaneous pen (Humalog KwikPen (U-100) Insulin) lidocaine 5 % topical patch 1 patch topical DAILY 08/26/21 10/20/22 (Lidoderm) mupirocin 2 % topical ointment 1 appl topical TID 08/26/21 10/20/22 tacrolimus 1 mg capsule, 2 mg PO BID 08/26/21 10/20/22 immediate-release tramadol 50 mg tablet 50 mg PO Q6H PRN moderate pain 08/26/21 09/24/22 famotidine 40 mg tablet 40 mg PO BEDTIME 12/11/21 10/20/22 gabapentin 100 mg capsule 100 mg PO BEDTIME 12/11/21 10/20/22 hydroxyzine HCl 10 mg tablet 10 mg PO BID 09/24/22 10/20/22 loperamide 2 mg capsule 2 mg PO BID PRN diarrhea 09/24/22 10/20/22 trazodone 50 mg tablet 25 mg PO BEDTIME 09/24/22 10/20/22 acetaminophen 500 mg tablet 500 mg PO Q8H PRN Pain 10/20/22 10/20/22 esomeprazole magnesium 40 mg 40 mg PO DAILY 10/20/22 10/20/22 capsule,delayed release miconazole nitrate 2 % topical 1 appl topical DAILY PRN Itching 10/20/22 10/20/22 powder (Anti-Fungal) prednisone 10 mg tablet 10 mg PO DAILY 10/20/22 10/20/22 triamcinolone acetonide 0.025 % 1 appl topical BID 10/20/22 10/20/22 topical ointment Previous Rx's Medication Instructions Recorded metoprolol succinate 25 mg 25 mg PO DAILY #90 tabs 09/24/22 tablet,extended release 24 hr (Toprol XL) Allergies Allergy/AdvReac Type Severity Reaction Status Date / Time hydromorphone [From DILAUDID] Allergy Mild ITCHINESS Verified 10/06/22 16:17 diphenhydramine Allergy Unknown UNK Verified 10/06/22 16:17 [From BENADRYL] regadenoson [From Lexiscan] AdvReac Mild Itching Verified 10/06/22 16:17 Review of Systems Review of Systems: All other systems are reviewed and are negative Constitutional: Reports as per HPI and Reports no additional constitutional complaints Eyes: Reports as per HPI and Reports no additional eye complaints Reports system reviewed and no additional complaints, except as documented Cardiovascular: Reports as per HPI and Reports no additional cardiovascular complaints Respiratory: Reports as per HPI and Reports no additional respiratory complaints Gastrointestinal: Reports as per HPI and Reports no additional gastrointestinal complaints Genitourinary: Reports no additional female genitourinary complaints Musculoskeletal: Reports no additional musculoskeletal complaints Skin/Breast: Reports system reviewed and no additional complaints, except as docu Psychiatric: Reports no additional psychiatric complaints Endocrine: Reports no additional endocrine complaints Hematologic/Lymphatic: Reports no additional hematologic/lymphatic complaints Allergic/Immunologic: Reports no additional allergic/immunologic complaints Reports system reviewed and no additional complaints, except as documented and Reports Abnormal speech present [facility] Past Medical History Medical History Amputation of fifth toe of right foot Chronic hyperglycemia Diabetes History of osteomyelitis HTN (hypertension) Surgical History H/O arteriovenostomy for renal dialysis Renal transplant recipient Family History Family History Other Diabetes No family history of coronary artery disease Social History Social History Household Members: None Housing: House Do you presently have visiting nurse or other home services: No Alcohol intake: never Patient Tobacco Use Status: Never used Tobacco Smoked in Last 30 Days: No Use of substances other than those prescribed or required for medical reasons: No Advance Directives: Yes Advance Directives on File: Yes Advance Directives Date on File: 01/21/22 service: No Current occupational status: disabled Physical Exam ED Vital Signs: Vital Signs - 24 hr 10/20/22 03:20 10/20/22 07:52 10/20/22 08:00 Temperature 98.1 F 97.8 F Pulse Rate 74 80 72 Respiratory Rate 16 18 15 Blood Pressure 166/100 H 150/91 H Pulse Oximetry 98 98 98 Oxygen Delivery Method Room Air Room Air Room Air 10/20/22 10:00 Temperature Pulse Rate 76 Respiratory Rate 16 Blood Pressure 172/105 H Pulse Oximetry 97 Oxygen Delivery Method Room Air BMI result Body Mass Index 33.7 Vital signs have been reviewed as appeared to be correct. Blood pressure normal. Heart rate normal. Respiration rate normal. Temperature normal. Oxygen saturation normal. Appearance: Alert. Oriented X3. No acute distress. Head: Normal external exam. Normocephalic. Atraumatic. No Lopez signs noted. No raccoon eyes noted Eyes: PERRLA. EOMI. Conjunctiva and sclera normal. Eyelids normal. ENT: TM's Normal. Pharynx normal. Uvula midline. Moist mucous membranes. No trismus noted. No drooling noted. No muffled voice noted. Neck: Normal inspection. Neck supple. FROM. No adenopathy. Thyroid Normal. No meningeal signs. No neck mass noted. CVS: Normal heart rate and rhythm. Heart sound normal. No murmurs noted. Pulses normal throughout. Respiratory: No respiratory distress. Painless inspiration. Breath sounds normal. No wheezes/rales/rhonchi noted. Left chest area of reproducible tenderness. No accessory muscle usage noted or decreased air movement noted. Abdomen: Soft and nontender. Bowel sounds normal in all 4 quadrants. No distention noted. No organomegaly noted. No visible injury noted. Back: No CVA tenderness. Full range of motion noted. Skin: Skin warm and dry. Normal skin color. Normal skin turgor. No rashes/lesions/lacerations noted. Extremities: No lower extremity edema. Extremities exhibit normal range of motion. Extremities nontender. Neuro: Oriented X 3. Cranial nerve exam: II-XII are grossly intact No motor deficit. No sensory deficit. Reflexes normal. Course Course Course Narrative: s/p a fall after syncopal episode complaining of chest pain appears to be a chest wall pain, patient will need a workup for syncope. Medical Decision Making Differential Diagnosis Differential Diagnoses: The differential diagnosis associated with the presentation includes (Chest wall pain, ACS, electrolyte disturbance, severe anemia, dysrhythmia.) Admission/Observation Consideration of admission/observation: Escalation of care including admission/observation considered Consult Healthcare Provider Management of the patient was discussed with: Hospitalist Dr. Spann Lab Data MDM Lab Attestation statement: I reviewed the patient's lab results. 10/20/22 08:19 10/20/22 08:19 Labs: Lab Results 10/20/22 10/20/22 10/20/22 Range/Units 08:19 08:19 08:19 WBC 12.3 H (4.8-10.8) X10*3/uL RBC 4.87 (4.60-5.80) X10*6/uL Hgb 13.4 L (14.0-18.0) g/dl Hct 40.4 L (42.0-52.0) % MCV 83.0 (80.0-98.0) fL MCH 27.5 (27.0-33.0) pg MCHC 33.2 (31.0-36.0) g/dl RDW 13.8 (11.0-16.0) % Plt Count 222 (160-400) X10*3/uL MPV 11.1 (9.4-12.4) fL Immature Gran % (Auto) 0.9 H (0.0-0.4) % Neut % (Auto) 76.0 H (45-73) % Lymph % (Auto) 12.9 L (20-40) % [place] % (Auto) 9.3 (2-11) % Eos % (Auto) 0.5 (0-4) % Baso % (Auto) 0.4 (0-2) % Lymph # (Auto) 1.6 (1.2-4.9) X10*3/uL [place] # (Auto) 1.2 (0.1-1.2) X10*3/uL Eos # (Auto) 0.1 (0.0-0.4) X10*3/uL Baso # (Auto) 0.1 (0.0-0.2) X10*3/uL Abs Immat Gran (auto) 0.11 H (0.00-0.03) X10*3/uL Absolute Neuts (auto) 9.4 H (2.0-8.3) x10*3/uL Absolute Nucleated RBC 0.000 (0.0-0.012) X10*3/uL Nucleated RBC % (auto) 0.0 (0.0-0.2) /100WBC Sodium 133 L (135-145) mmol/L Potassium 3.7 (3.3-5.1) mmol/L Chloride 109 H (96-108) mmol/L Carbon Dioxide 15 L (22-29) mmol/L Anion Gap 13 (12-20) BUN 37 H (9-16) mg/dL Creatinine 2.59 H (0.5-1.4) mg/dL Estim Creat Clear Calc 30.5 Estimated GFR 26 Random Glucose 391 H* (60-115) mg/dL Calcium 8.3 L (8.4-10.2) mg/dL Total Bilirubin 0.6 (0.0-1.0) mg/dL Direct Bilirubin 0.2 (0.0-0.5) mg/dL AST 35 (5-37) U/L ALT 48 H (0-40) U/L Alkaline Phosphatase 122 H (39-117) U/L Troponin I High Sens 34.5 (<3.5-35.0) ng/L Total Protein 6.0 L (6.5-8.0) g/dL Albumin 3.5 (3.5-5.0) g/dL Lipase 32 (8-78) U/L Urine Color Urine Appearance Urine pH (5.0-9.0) Ur Specific [place] (1.005-1.025) Urine Protein (Neg-Trace) mg/dL Urine Glucose (UA) (Negative) mg/dL Urine Ketones (Negative) mg/dL Urine Blood (Negative) Urine Nitrite (Negative) Ur Leukocyte Esterase (Negative) Urine RBC (0-2) /HPF Urine WBC (0-5) /HPF Ur Squamous Epith Cells (0-2) /HPF Urine Bacteria (None Seen) Hyaline Casts (0-2) /LPF COVID-19 ([facility]) (Negative) COVID-19 Clin Com 10/20/22 10/20/22 Range/Units 08:19 08:19 WBC (4.8-10.8) X10*3/uL RBC (4.60-5.80) X10*6/uL Hgb (14.0-18.0) g/dl Hct (42.0-52.0) % MCV (80.0-98.0) fL MCH (27.0-33.0) pg MCHC (31.0-36.0) g/dl RDW (11.0-16.0) % Plt Count (160-400) X10*3/uL MPV (9.4-12.4) fL Immature Gran % (Auto) (0.0-0.4) % Neut % (Auto) (45-73) % Lymph % (Auto) (20-40) % [place] % (Auto) (2-11) % Eos % (Auto) (0-4) % Baso % (Auto) (0-2) % Lymph # (Auto) (1.2-4.9) X10*3/uL [place] # (Auto) (0.1-1.2) X10*3/uL Eos # (Auto) (0.0-0.4) X10*3/uL Baso # (Auto) (0.0-0.2) X10*3/uL Abs Immat Gran (auto) (0.00-0.03) X10*3/uL Absolute Neuts (auto) (2.0-8.3) x10*3/uL Absolute Nucleated RBC (0.0-0.012) X10*3/uL Nucleated RBC % (auto) (0.0-0.2) /100WBC Sodium (135-145) mmol/L Potassium (3.3-5.1) mmol/L Chloride (96-108) mmol/L Carbon Dioxide (22-29) mmol/L Anion Gap (12-20) BUN (9-16) mg/dL Creatinine (0.5-1.4) mg/dL Estim Creat Clear Calc Estimated GFR Random Glucose (60-115) mg/dL Calcium (8.4-10.2) mg/dL Total Bilirubin (0.0-1.0) mg/dL Direct Bilirubin (0.0-0.5) mg/dL AST (5-37) U/L ALT (0-40) U/L Alkaline Phosphatase (39-117) U/L Troponin I High Sens (<3.5-35.0) ng/L Total Protein (6.5-8.0) g/dL Albumin (3.5-5.0) g/dL Lipase (8-78) U/L Urine Color Yellow Urine Appearance Clear Urine pH 5.5 (5.0-9.0) Ur Specific [place] 1.025 (1.005-1.025) Urine Protein 30 (1+) H (Neg-Trace) mg/dL Urine Glucose (UA) >=1000 H (Negative) mg/dL Urine Ketones Negative (Negative) mg/dL Urine Blood Negative (Negative) Urine Nitrite Negative (Negative) Ur Leukocyte Esterase Negative (Negative) Urine RBC 0-2 (0-2) /HPF Urine WBC 0-5 (0-5) /HPF Ur Squamous Epith Cells 0-2 (0-2) /HPF Urine Bacteria None Seen (None Seen) Hyaline Casts 0-2 (0-2) /LPF COVID-19 ([facility]) Negative (Negative) COVID-19 Clin Com See Note Independent Interpretation I performed an independent interpretation of an: EKG (Normal sinus rhythm at 77 beats per minute, left axis deviation, LVH, unremarkable intervals, no ST-T change.) Radiology Impression Discussion of test interpretation with radiology: I have reviewed the radiologist's reading. Discharge Plan Discharge Clinical Impression: Syncope and collapse Patient Disposition: Admitted As Inpatient Prescriptions: No Action albuterol sulfate 2.5 mg /3 mL (0.083 %) solution for nebulization 1 amp inhalation TID PRN (Reason: Respiratory Distress) atorvastatin 10 mg tablet 10 mg PO DAILY amlodipine 5 mg tablet 5 mg PO DAILY aspirin 81 mg tablet,delayed release (DR/EC) 81 mg PO DAILY tramadol 50 mg tablet 50 mg PO Q6H PRN (Reason: moderate pain) calcitriol 0.5 mcg capsule 0.5 mcg PO DAILY lidocaine [Lidoderm] 5 % adhesive patch,medicated 1 patch topical DAILY Protocol: Apply to: Apply to: BACK mupirocin 2 % ointment 1 appl topical TID Protocol: Apply to: Apply to: AFFECTED AREA albuterol sulfate [ProAir HFA] 90 mcg/actuation HFA aerosol inhaler 2 puff PO Q4H PRN (Reason: wheezing) tacrolimus 1 mg capsule 2 mg PO BID Patient Comments: PATIENTS DOSE WAS RECENTLY DECREASED TO 2 IN THE AM INSTEAD OF 3 insulin lispro [Humalog KwikPen Insulin] 100 unit/mL insulin pen 5 unit subcut TIDWM duloxetine 20 mg capsule,delayed release(DR/EC) 20 mg PO DAILY cholecalciferol (vitamin D3) 1,250 mcg (50,000 unit) capsule 1 cap PO SA@1000 insulin glargine [Lantus Solostar U-100 Insulin] 100 unit/mL (3 mL) insulin pen 48 unit subcut BEDTIME famotidine 40 mg Tablet 40 mg PO BEDTIME gabapentin 100 mg Capsule 100 mg PO BEDTIME prednisone 10 mg Tablet 10 mg PO DAILY triamcinolone acetonide 0.025 % Ointment 1 appl TOPICAL BID miconazole nitrate [Anti-Fungal] 2 % Powder 1 appl TOPICAL DAILY PRN (Reason: Itching) acetaminophen 500 mg Tablet 500 mg PO Q8H PRN (Reason: Pain) esomeprazole magnesium 40 mg Capsule,Delayed Release(Dr/Ec) 40 mg PO DAILY loperamide 2 mg capsule 2 mg PO BID PRN (Reason: diarrhea) hydroxyzine HCl 10 mg tablet 10 mg PO BID trazodone 50 mg tablet 25 mg PO BEDTIME metoprolol succinate [Toprol XL] 25 mg tablet extended release 24 hr 25 mg PO DAILY Qty: 90 3RF
[2022-10-20 08:31] LABS: MANUAL DIFF FLAG NO
[2022-10-20 08:38] LABS: Basophils Absolute Auto 0.1 X10*3/uL (0.0-0.2); Basophils Percent Auto 0.4 % (0-2); Eosinophils Absolute Auto 0.1 X10*3/uL (0.0-0.4); Eosinophils Percent Auto 0.5 % (0-4); Hematocrit 40.4 % (42.0-52.0); Hemoglobin 13.4 g/dl (14.0-18.0); Imm Gran Abs Auto 0.11 X10*3/uL (0.00-0.03); Imm Gran Pct Auto 0.9 % (0.0-0.4); Lymphocytes Absolute Auto 1.6 X10*3/uL (1.2-4.9); Lymphocytes Percent Auto 12.9 % (20-40); Mean Corpuscular HGB Conc 33.2 g/dl (31.0-36.0); Mean Corpuscular Hemoglobin 27.5 pg (27.0-33.0); Mean Platelet Volume 11.1 fL (9.4-12.4); Monocytes Absolute Auto 1.2 X10*3/uL (0.1-1.2); Monocytes Percent Auto 9.3 % (2-11); Neutrophils Absolute Auto 9.4 x10*3/uL (2.0-8.3); Platelet Count 222 X10*3/uL (160-400); Red Blood Count 4.87 X10*6/uL (4.60-5.80); Red Cell Distribution Width 13.8 % (11.0-16.0); White Blood Count 12.3 X10*3/uL (4.8-10.8)
[2022-10-20 08:39] LABS: Appearance Urine Clear; Color Urine Yellow; Glucose Urine UA >=1000 mg/dL (Negative); Leukocyte Esterase Urine Negative (Negative); Nitrite Urine Negative (Negative); PH 5.5 (5.0-9.0); Specific Gravity - Urine 1.025 (1.005-1.025); UMIC TRIGGER UACC YES; Urine Blood Negative (Negative); Urine Ketones Negative (Negative); Urine Protein 30 (1+) mg/dL (Neg-Trace)
[2022-10-20 08:41] LABS: Bacteria Urine None Seen (None Seen); Hyaline Casts Urine 0-2 /LPF (0-2); RBC Urine 0-2 /HPF (0-2); Squamous Epithelial Cell Urine 0-2 /HPF (0-2); WBC Urine 0-5 /HPF (0-5)
[2022-10-20 08:52] LABS: COVID-19 Test Negative (Negative); IDNOW Serial# BCCEAD1C
[2022-10-20 08:58] LABS: Alanine Aminotransferase 48 U/L (0-40); Albumin Level 3.5 g/dL (3.5-5.0); Alkaline Phosphatase 122 U/L (39-117); Anion Gap 13 (12-20); Aspartate Amino Transferase 35 U/L (5-37); Bilirubin Direct 0.2 mg/dL (0.0-0.5); Bilirubin Total 0.6 mg/dL (0.0-1.0); Blood Urea Nitrogen 37 mg/dL (9-16); Calcium 8.3 mg/dL (8.4-10.2); Carbon Dioxide 15 mmol/L (22-29); Chloride 109 mmol/L (96-108); Creatinine Clr Calc Pharmacy 30.5; Estimated Glomerular Filt Rate 26; Glucose Random 391 mg/dL (60-115); Lipase 32 U/L (8-78); Potassium 3.7 mmol/L (3.3-5.1); Sodium 133 mmol/L (135-145)
[2022-10-20 09:02] LABS: Troponin-I High Sensitivity 34.5 ng/L (<3.5-35.0)
--- NOTE | 2022-10-20 10:22 | PHA.MEDREC ---
Pharmacy Consult ? Medication Reconciliation Spoke with patient and confirmed meds from [facility] has completed the medication reconciliation.
--- NOTE | 2022-10-20 11:58 | PC.NURSE ---
pt has AV fistula on left upper arm that has not been used in several years per pt. Fistula was placed due to kidney placement. Pt is not on dialysis.
--- NOTE | 2022-10-20 12:17 | MHC.EDTECH ---
Orthostatic Vitals Supine: 175/107 78HR Sittin/105 79HR Standin/94 72HR
[2022-10-20] MEDS: Insulin Regular, Human 100 UNIT/ML 3 ML VIAL IVPUSH (12:53)
[2022-10-20] MEDS: 0.9 % Sodium Chloride 1,000 ML 999 ML IV (12:55)
--- NOTE | 2022-10-20 12:56 | PC.NURSE ---
IV inserted, insulin given per Aug. fluids running . will cont to michelle mendieta
--- NOTE | 2022-10-20 13:42 | PM.IMHP ---
History of Present Illness Date of Service: 10/20/22 Attending physician on admission: Paramjit Spann Chief Complaint: Syncopal episode Pt is a 57-year-old Salvadorean-speaking male with a PMH significant for?HTN insulin-dependent diabetes type 2, hx of osteomyelitis s/p amputated 5th right toe, s/p kidney transplant not on hemodialysis the past 10 years, and asthma who presents to the ED after a syncopal episode. Patient states that he was walking around his apartment complex earlier today when he suddenly felt lightheaded, had a sharp stabbing pain in his left chest, and then lost consciousness falling forward on his face and left shoulder. Episode was unwitnessed. Patient says he may have lost consciousness for up to 10 minutes. When he awoke he continued to feel sharp stabbing pain in his left chest and left shoulder. He sat on the ground for a few minutes until he felt well enough to get up and then presented to the ED for further evaluation. He denies having a syncopal episode before, though notes he has been feeling lightheaded for the past few weeks when he stands up. Pt has multiple other chronic complaints: intermittent palpitations for the past two months for which he has been seen and evaluated here with currently negative workup; chronic shortness of breath and fatigue; daily headaches for the past 2+ months; chronic left shoulder pain with reduced ROM for which he receives cortisone injections. Patient has had a continuous glucose monitor for 1 year now, but notes that the past 2 weeks his readings have been quite high in the 300s to 400s. In the ED labs were significant for chronically elevated WBC 12.3, H&H 13.4/40.4, sodium of 133, chronically elevated BUN of 37 and creatinine of 2.59 (near baseline), random glucose of 391, ALT of 48, and alk-phos of 1.2. CXR negative for acute cardiopulmonary process. Shoulder X-ray showed new 3 mm ossification inferior to the glenoid, possibly age-indeterminate fracture fragment versus loose body with no additional fracture or dislocation. EKG demonstrated normal sinus rhythm with criteria for LVH and no evidence of ST elevations or depressions. Orthostatics positive with SBP change of 32 and DBP of 13. Pt was treated with normal saline, and insulin. Pt will be admitted to the hospital under observation on telemetry for further workup and evaluation of syncopal episode. Review of Systems Review of Systems: Syncope Lightheadedness Left chest and shoulder pain Palpitations x2 months Chronic left shoulder pain Daily Headaches Yes all other systems are reviewed and are negative [facility] Medical History Amputation of fifth toe of right foot Chronic hyperglycemia Diabetes History of osteomyelitis HTN (hypertension) Family History Other Diabetes No family history of coronary artery disease Surgical History H/O arteriovenostomy for renal dialysis Renal transplant recipient Social History Household Members: None Housing: House Do you presently have visiting nurse or other home services: No Alcohol intake: never Patient Tobacco Use Status: Never used Tobacco Smoked in Last 30 Days: No Use of substances other than those prescribed or required for medical reasons: No Advance Directives: Yes Advance Directives on File: Yes Advance Directives Date on File: 01/21/22 service: No Current occupational status: disabled [employer] Allergies Allergy/AdvReac Type Severity Reaction Status Date / Time hydromorphone [From DILAUDID] Allergy Mild ITCHINESS Verified 10/06/22 16:17 diphenhydramine Allergy Unknown UNK Verified 10/06/22 16:17 [From BENADRYL] regadenoson [From Lexiscan] AdvReac Mild Itching Verified 10/06/22 16:17 Active Medications: Current Medications Pharmacy Consult (Consult Rx Perform Med Rec) 1 each MISCELLANE ONCE PRN PRN Reason: Consult order Home Medications Medication Instructions Recorded Confirmed Last Taken Type albuterol sulfate 2.5 mg/3 mL 1 amp inhalation TID PRN 08/26/21 10/20/22 Unknown History (0.083 %) solution for nebulization Respiratory Distress albuterol sulfate 90 mcg/actuation 2 puff PO Q4H PRN wheezing 08/26/21 10/20/22 Unknown History aerosol inhaler (ProAir HFA) amlodipine 5 mg tablet 5 mg PO DAILY 08/26/21 10/20/22 12/11/21 History aspirin 81 mg tablet,delayed 81 mg PO DAILY 08/26/21 10/20/2212/11/22 History release atorvastatin 10 mg tablet 10 mg PO DAILY 08/26/21 10/20/22 12/11/21 History calcitriol 0.5 mcg capsule 0.5 mcg PO DAILY 08/26/21 10/20/22 12/11/21 History cholecalciferol (vitamin D3) 1,250 1 cap PO SA@1000 08/26/21 10/20/22 Unknown History mcg (50,000 unit) capsule duloxetine 20 mg capsule,delayed 20 mg PO DAILY 08/26/21 10/20/22 12/11/21 History release insulin glargine 100 unit/mL (3 48 unit subcut BEDTIME 08/26/21 10/20/22 12/10/21 History mL) subcutaneous pen (Lantus Solostar U-100 Insulin) insulin lispro 100 unit/mL 5 unit subcut TIDWM 08/26/21 10/20/22 Unknown History subcutaneous pen (Humalog KwikPen (U-100) Insulin) lidocaine 5 % topical patch 1 patch topical DAILY 08/26/21 10/20/22 Unknown History (Lidoderm) mupirocin 2 % topical ointment 1 appl topical TID 08/26/21 10/20/22 Unknown History tacrolimus 1 mg capsule, 2 mg PO BID 08/26/21 10/20/22 12/11/21 History immediate-release tramadol 50 mg tablet 50 mg PO Q6H PRN moderate pain 08/26/21 09/24/22 Unknown History famotidine 40 mg tablet 40 mg PO BEDTIME 12/11/21 10/20/22 12/10/21 History gabapentin 100 mg capsule 100 mg PO BEDTIME 12/11/21 10/20/22 12/10/21 History hydroxyzine HCl 10 mg tablet 10 mg PO BID 09/24/22 10/20/22 Unknown History loperamide 2 mg capsule 2 mg PO BID PRN diarrhea 09/24/22 10/20/22 Unknown History trazodone 50 mg tablet 25 mg PO BEDTIME 09/24/22 10/20/22 Unknown History acetaminophen 500 mg tablet 500 mg PO Q8H PRN Pain 10/20/22 10/20/22 Unknown History esomeprazole magnesium 40 mg 40 mg PO DAILY 10/20/22 10/20/22 Unknown History capsule,delayed release miconazole nitrate 2 % topical 1 appl topical DAILY PRN Itching 10/20/22 10/20/22 Unknown History powder (Anti-Fungal) prednisone 10 mg tablet 10 mg PO DAILY 10/20/22 10/20/22 Unknown History triamcinolone acetonide 0.025 % 1 appl topical BID 10/20/22 10/20/22 Unknown History topical ointment Physical Exam Vital Signs and Narrative: Vital Signs: Last Vital Signs Temp 97.8 F 10/20/22 11:16 Pulse 73 10/20/22 13:05 Resp 12 10/20/22 13:05 BP 152/79 H 10/20/22 13:05 Pulse Ox 99 10/20/22 13:05 O2 Del Method Room Air 10/20/22 13:05 BMI result Body Mass Index 33.7 Constitutional: Alert, in no acute distress. Mental Status: Oriented to person, place and time. Eyes: Pupils are equal, round, and reactive to light. Ear, Nose, and Throat: Oropharynx clear, mucous membranes moist. Ears and nose without deformities. Trachea midline. Respiratory: Clear to auscultation bilaterally. No wheezing, rales, or rhonchi. Cardiovascular: S1, S2 regular. No murmurs, rubs, or gallops. Gastrointestinal: Abdomen soft, non-tender, non-distended. Normal bowel sounds. Neurologic: Cranial nerves II-XII are grossly intact bilaterally. No focal neurological deficits. Moves all extremities spontaneously. Skin: No rashes or lesions noted. Musculoskeletal: Left anterior chest wall and left anterior shoulder tender to palpation. Reduced left shoulder flexion ROM. Extremities: No edema. Psychiatric: Normal mood and affect. Results Labs 10/20/22 08:19 10/20/22 08:19 Labs: Laboratory Results - last 24 hr 10/20/22 10/20/22 10/20/22 08:19 08:19 08:19 MCV 83.0 MCH 27.5 MCHC 33.2 RDW 13.8 Plt Count 222 MPV 11.1 Immature Gran % (Auto) 0.9 H Neut % (Auto) 76.0 H Lymph % (Auto) 12.9 L [place] % (Auto) 9.3 Eos % (Auto) 0.5 Baso % (Auto) 0.4 Lymph # (Auto) 1.6 [place] # (Auto) 1.2 Eos # (Auto) 0.1 Baso # (Auto) 0.1 Abs Immat Gran (auto) 0.11 H Absolute Neuts (auto) 9.4 H Absolute Nucleated RBC 0.000 Nucleated RBC % (auto) 0.0 Anion Gap 13 Estim Creat Clear Calc 30.5 Estimated GFR 26 Random Glucose 391 H* Calcium 8.3 L Total Bilirubin 0.6 Direct Bilirubin 0.2 AST 35 ALT 48 H Alkaline Phosphatase 122 H Troponin I High Sens 34.5 Total Protein 6.0 L Albumin 3.5 Lipase 32 Urine Color Urine Appearance Urine pH Ur Specific [place] Urine Protein Urine Glucose (UA) Urine Ketones Urine Blood Urine Nitrite Ur Leukocyte Esterase Urine RBC Urine WBC Ur Squamous Epith Cells Urine Bacteria Hyaline Casts COVID-19 ([facility]) COVID-19 [facility] Com 10/20/22 10/20/22 08:19 08:19 MCV MCH MCHC RDW Plt Count MPV Immature Gran % (Auto) Neut % (Auto) Lymph % (Auto) [place] % (Auto) Eos % (Auto) Baso % (Auto) Lymph # (Auto) [place] # (Auto) Eos # (Auto) Baso # (Auto) Abs Immat Gran (auto) Absolute Neuts (auto) Absolute Nucleated RBC Nucleated RBC % (auto) Anion Gap Estim Creat Clear Calc Estimated GFR Random Glucose Calcium Total Bilirubin Direct Bilirubin AST ALT Alkaline Phosphatase Troponin I High Sens Total Protein Albumin Lipase Urine Color Yellow Urine Appearance Clear Urine pH 5.5 Ur Specific [place] 1.025 Urine Protein 30 (1+) H Urine Glucose (UA) >=1000 H Urine Ketones Negative Urine Blood Negative Urine Nitrite Negative Ur Leukocyte Esterase Negative Urine RBC 0-2 Urine WBC 0-5 Ur Squamous Epith Cells 0-2 Urine Bacteria None Seen Hyaline Casts 0-2 COVID-19 ([facility]) Negative COVID-19 Clin Com See Note Imaging Radiologist's Impressions: Impressions Shoulder X-Ray 10/20/22 06:47 IMPRESSION: 3 mm ossification inferior to the glenoid, new as compared to the prior study. Differential consideration include age-indeterminate fracture fragment versus loose body. No additional acute fracture or dislocation. [id number] acromial clavicular arthritis. Chest X-Ray 10/20/22 08:10 IMPRESSION: No acute cardiopulmonary process. Assessment and Plan (1) Syncope and collapse: Status: Acute Plan Pt is a 57-year-old Salvadorean-speaking male with a PMH significant for?HTN insulin-dependent diabetes type 2, hx of osteomyelitis s/p amputated 5th right toe, s/p kidney transplant not on hemodialysis the past 10 years, and asthma who presents to the ED after a syncopal episode. Pt will be admitted to the hospital under observation on telemetry for further workup and evaluation of syncopal episode. Syncopal episode Etiology unclear: Differential includes vasovagal, cardiac, orthostatic, hyperglycemia Patient with positive orthostatics: SBP change is 32 and DBP change was 13 IVF: Lactated Ringer's Cardiology consult Repeat orthostatics tomorrow Monitor on telemetry Insulin-dependent diabetes type 2 Has recently been poorly controlled, patient notes glucose readings in the 300-400s for the past 2 weeks Random glucose was 391 at time presentation Check A1C Hold home insulin Patient will be placed on SSI, lantus Pt should f/u with PCP for possible insulin adjustment Chest/shoulder pain EKG without evidence ST elevations or depressions Troponin 34.5, similar to level on 09/22/2022 of 32.9 Likely musculoskeletal, anterior left chest wall and shoulder tender to palpation Shoulder x-ray with 3 mm ossification inferior to the glenoid, but otherwise no other acute fracture or dislocation Patient with [id number] acromioclavicular arthritis of left shoulder, receives cortisone injections, has chronically limited ROM Acetaminophen for pain Hyponatremia Sodium 133 at time of presentation Patient received normal saline in ED Follow BMP CKD stage 4 Patient s/p kidney transplant 10 years ago, not on hemodialysis Kidney function stable, at baseline Continue prednisone, tacrolimus Leukocytosis WBC 12.3, chronically elevated near baseline Likely secondary to chronic steroid use Anemia of chronic disease H&H 13.4.40.4, stable at baseline Headaches Acetaminophen for pain Asthma Not in acute exacerbation Continue home inhalers Full Code Attending:?Dr. Kendall DVT Prophylaxis: Lovenox Patient will be admitted to the hospital under observation on telemetry for further evaluation and workup for syncopal episode. Time Spent With Patient Time: Total time managing care of this patient today ____ minutes. Quality Stroke Does the patient have a stroke diagnosis?: No VTE Prior VTE?: No VTE Risk Level:: Medical - moderate - high VTE Device Contraindication: Treatment Not Indicated VTE Drug Contraindication: N/A - Med Ordered
[2022-10-20 14:03] LABS: Glucose, Whole Blood 193 mg/dL (60-115)
--- NOTE | 2022-10-20 14:51 | PM.EVENT ---
Event Note Date of Service: 10/21/22 Event Note: Addendum to history and physical by the advanced practice provider, ADONIS Bowman I interviewed and examined the patient. I discussed their presentation and management with the JENNIFER. I reviewed the history and physical and agree with the documentation, with the following additions and corrections: 57yo M with HTN, DM2, CKD4 s/p kidney transplant on tacrolimus and prednisone presenting after syncopal episode. Found to have relative orthostatic hypotension. Plan admit to [facility] on telemetry, give IV fluid resuscitation, recheck orthostatics in AM, continue home meds. Time Spent With Patient Time: Total time managing care of this patient today ____ minutes.
[2022-10-20 15:24] LABS: Estimated Average Glucose 275 mg/dL; Hemoglobin A1c % 11.2 %
[2022-10-20] MEDS: Heparin Sodium,Porcine 5,000 UNIT/ML VIAL 5000 UNIT SUBCUT ×2 (16:13→23:06)
[2022-10-20] MEDS: Lactated Ringers 1,000 ML 100 ML IVCONT (16:44)
--- NOTE | 2022-10-20 16:47 | PC.NURSE ---
med and fluid given as ordered. pt resting quietly in bed. brother at bedside.
--- NOTE | 2022-10-20 17:22 | PC.NURSE ---
POC 361. PA aware. 10 units lispro ordered per protocol.
[2022-10-20 17:23] LABS: Glucose, Whole Blood 361 mg/dL (60-115)
[2022-10-20] MEDS: Insulin Lispro 100 UNIT/ML 3 ML VIAL SUBCUT ×2 (17:25→23:16)
--- NOTE | 2022-10-20 17:28 | PC.NURSE ---
lispro given per sliding scale. pt already ate. PA aware
--- NOTE | 2022-10-20 22:18 | MHC.CM.PN ---
Addendum entered by Yana Romero 10/20/22 22:24: HCP on file. Original Note: PRADHAN 10/20. Lives alone. Independent. Drives. Family lives near by. Uses a cane. Has DM testing supplies. [employer] x5. Pt had renal transplant and has not had any dialysis in 10 years. No services. Admitted with syncope,hyperglycemia and orthostatic hypotension. Pt tells CM that he does not think his glucometer is working correctly. Encouraged patient to share concerns with the doctor when he goes to the floor. D/C plan: Home without services. Pt will drive himself home. CM will follow for any discharge needs
[2022-10-20 22:42] LABS: Glucose, Whole Blood 416 mg/dL (60-115)
--- NOTE | 2022-10-20 22:58 | PC.NURSE ---
MD Nguyễn contacted for BS of [id number], will give 15 U of humalog per MD plus scheduled 34 U lantus.
[2022-10-20] MEDS: hydrOXYzine HCL 10 MG TABLET PO (23:05)
[2022-10-20] MEDS: Famotidine 20 MG TABLET 40 MG PO (23:05)
[2022-10-20] MEDS: traZODone HCL 25 MG HALFTAB PO (23:06)
[2022-10-20] MEDS: Gabapentin 100 MG CAPSULE PO (23:06)
[2022-10-20] MEDS: Insulin Glargine,Hum.rec.anlog 100 UNIT/ML 10 ML VIAL 34 UNIT SUBCUT (23:09)
[2022-10-21] VITALS (8 sets, daily range): BP systolic 127–196; BP diastolic 63–90; PULSE 71–86; RESP 16–20; TEMP 36.1–37; O2SAT 96–98
[2022-10-21] MEDS: Insulin Lispro 100 UNIT/ML 3 ML VIAL SUBCUT ×3 (00:08→12:15)
[2022-10-21] MEDS: Tacrolimus 1 MG CAPSULE 2 MG PO ×2 (01:19→08:04)
[2022-10-21] MEDS: Lactated Ringers 1,000 ML 100 ML IVCONT ×2 (01:20→12:14)
[2022-10-21] MEDS: 0.9 % Sodium Chloride Flush 3 ML SYRINGE IVFLUSH ×2 (01:20→08:05)
[2022-10-21 07:41] LABS: Glucose, Whole Blood 247 mg/dL (60-115)
[2022-10-21] MEDS: Lidocaine 4 % Patch ADH..PATCH 1 PATCH TRANSDERMA (08:03)
[2022-10-21] MEDS: predniSONE 10 MG TABLET PO (08:04)
[2022-10-21] MEDS: DULoxetine HCl 20 MG CAPSULE.DR PO (08:04)
[2022-10-21] MEDS: amLODIPine Besylate 5 MG TABLET PO (08:04)
[2022-10-21] MEDS: hydrOXYzine HCL 10 MG TABLET PO (08:04)
[2022-10-21] MEDS: Heparin Sodium,Porcine 5,000 UNIT/ML VIAL 5000 UNIT SUBCUT (08:04)
[2022-10-21] MEDS: Atorvastatin Calcium 10 MG TABLET PO (08:04)
[2022-10-21] MEDS: Metoprolol Succinate ER 25 MG TAB.ER.24H PO (08:04)
[2022-10-21] MEDS: Aspirin Enteric Coated 81 MG TABLET.DR PO (08:05)
[2022-10-21] MEDS: calcitrioL 0.25 MCG CAPSULE 0.5 MCG PO (08:10)
[2022-10-21 08:48] LABS: Anion Gap 8 (12-20); Blood Urea Nitrogen 30 mg/dL (9-16); Calcium 8.5 mg/dL (8.4-10.2); Carbon Dioxide 24 mmol/L (22-29); Chloride 110 mmol/L (96-108); Creatinine Clr Calc Pharmacy 35.3; Estimated Glomerular Filt Rate 30; Glucose Random 252 mg/dL (60-115); Potassium 4.1 mmol/L (3.3-5.1); Sodium 138 mmol/L (135-145)
[2022-10-21 09:16] LABS: Troponin-I High Sensitivity 40.6 ng/L (<3.5-35.0)
--- NOTE | 2022-10-21 10:50 | PM.CNCAR ---
History of Present Illness History of Present Illness Date of Service: 10/21/22 Requesting physician: Esequiel Kendall Consult reason: other ( syncope) Chief complaint: Syncope Narrative: I was consulted to see 1 in cardiology consultation today for episode of near-syncope/syncope. History was obtained with help of paper stacker at bedside. Patient says he was in his usual state of health yesterday, walking on the porch he suddenly got lightheaded and then fell forward injuring his left shoulder. He says he completely recalls going down and thinks he did not lose consciousness and if at all if he loss consciousness was very short period time. He is still hurting in his right shoulder. Subsequently was brought to the emergency room. In the emergency room with EKG did not show any significant abnormalities. He was noted to be orthostatic. He has been given IV fluids. Today says he feels better. His echocardiogram done in September had shown normal LV systolic function with mild left atrial enlargement. His myocardial perfusion imaging as shown possible inferior wall ischemia. He has follow-up and has been seen by Dr. Villeda in the past. He was referred to him for cardiac arrhythmias. Only thing abnormal at that time was found of PACs form arrhythmia perspective. Overnight monitoring has shown PACs but no clear episodes of any other ventricular arrhythmias or atrial fibrillation. He has longstanding history of renal insufficiency status post transplant about 10 years ago and now is chronic kidney disease. He has hypertension, diabetes for long time. He also has diabetic neuropathy. He has never had any vascular events in the past. He says drinks a lot of water every day. His blood pressure is noted to be significantly l Review of Systems Constitutional: Constitutional: Reports no additional constitutional complaints Eyes: Eyes: Reports no additional eye complaints Cardiovascular: Cardiovascular: Denies chest pain, Reports lightheadedness, Reports Loss of Consciousness, Denies palpitations and Denies dyspnea Respiratory: Respiratory: Reports no additional respiratory complaints and Denies dyspnea Genitourinary: Genitourinary: Reports no additional male genitourinary complaints Integumentary/Breasts: Skin/Breast: Reports system reviewed and no additional complaints, except as docu Neurologic: Reports system reviewed and no additional complaints, except as documented Endocrine: Endocrine: Denies palpitations PMFSH Past Medical History Medical History Amputation of fifth toe of right foot Chronic hyperglycemia Diabetes History of osteomyelitis HTN (hypertension) Family History Family History Other Diabetes No family history of coronary artery disease Surgical History Surgical History H/O arteriovenostomy for renal dialysis Renal transplant recipient Social History Social History Household Members: None Housing: House Do you presently have visiting nurse or other home services: No Alcohol intake: never Patient Tobacco Use Status: Never used Tobacco Smoked in Last 30 Days: No Use of substances other than those prescribed or required for medical reasons: No Currently Displaying Signs/Symptoms of Drug Intoxication Withdrawal: No Advance Directives: Yes Advance Directives on File: Yes Advance Directives Date on File: 01/21/22 Nutrition Risks: No Nutritional Risk service: No Current occupational status: disabled Meds Allergies Allergy/AdvReac Type Severity Reaction Status Date / Time hydromorphone [From DILAUDID] Allergy Mild ITCHINESS Verified 10/06/22 16:17 diphenhydramine Allergy Unknown UNK Verified 10/06/22 16:17 [From BENADRYL] regadenoson [From Lexiscan] AdvReac Mild Itching Verified 10/06/22 16:17 Active Medications: Current Medications Acetaminophen (Acetaminophen 325 Mg Tablet) 650 mg PO Q6H PRN PRN Reason: Pain, Mild (Pain Scale 1-3) Albuterol Sulfate (Albuterol Sulfate (0.083%) 2.5 Mg/3 Ml Vial.Neb) 2.5 mg INHALE TID PRN PRN Reason: Respiratory Distress Albuterol Sulfate (Albuterol Sulfate 90 Mcg 8 Gm Inhaler) 2 puff INHALE Q4H PRN PRN Reason: wheezing Amlodipine Besylate (Amlodipine Besylate 5 Mg Tablet) 5 mg PO DAILY [facility]; Protocol Last Admin: 10/21/22 08:04 Dose: 5 mg Aspirin (Aspirin Enteric Coated 81 Mg Tablet.) 81 mg PO DAILY [facility] Last Admin: 10/21/22 08:05 Dose: 81 mg Atorvastatin Calcium (Atorvastatin Calcium 10 Mg Tablet) 10 mg PO DAILY [facility] Last Admin: 05/03/23 08:04 Dose: 10 mg Calcitriol (Calcitriol 0.25 Mcg Capsule) 0.5 mcg PO DAILY [facility] Last Admin: 10/21/22 08:10 Dose: 0.5 mcg Docusate Sodium (Docusate Sodium 100 Mg Capsule) 100 mg PO DAILY PRN PRN Reason: Constipation Duloxetine HCl (Duloxetine Hcl 20 Mg Capsule.Dr) 20 mg PO DAILY [facility] Last Admin: 10/21/22 08:04 Dose: 20 mg Famotidine (Famotidine 20 Mg Tablet) 40 mg PO BEDTIME [facility] Last Admin: 10/20/22 23:05 Dose: 40 mg Gabapentin (Gabapentin 100 Mg Capsule) 100 mg PO BEDTIME [facility] Last Admin: 10/20/22 23:06 Dose: 100 mg Glucose (Glucose Gel 15 Gm Gel..Gram.) 15 gm PO Q15M PRN; Protocol PRN Reason: per Hypoglycemia Standing Ord. Heparin Sodium (Porcine) (Heparin Sodium,Porcine 5,000 Unit/Ml Vial) 5,000 unit SUBCUT Q8H [facility] Last Admin: 10/21/22 08:04 Dose: 5,000 unit Hydroxyzine HCl (Hydroxyzine Hcl 10 Mg Tablet) 10 mg PO BID [facility] Last Admin: 10/21/22 08:04 Dose: 10 mg Lactated Ringer's (Lr) 1,000 mls @ 100 mls/hr IVCONT .Q10H [facility] Last Admin: 10/21/22 01:20 Dose: 100 mls/hr Dextrose (D10) 250 mls @ 750 mls/hr IV Q15M PRN; Protocol PRN Reason: per Hypoglycemia Standing Ord. Insulin Glargine (Insulin Glargine,Hum.Rec.Anlog 100 Unit/Ml 10 Ml Vial) 34 unit SUBCUT BEDTIME [facility] Last Admin: 10/20/22 23:09 Dose: 1 unit Insulin Human Lispro (Insulin Lispro 100 Unit/Ml 3 Ml Vial) 0 unit SUBCUT QIDACHS [facility]; Protocol Last Admin: 10/21/22 08:05 Dose: 4 unit Lidocaine (Lidocaine 4 % Patch Adh..Patch) 1 patch TRANSDERMA DAILY [facility] Last Admin: 10/21/22 08:03 Dose: 1 patch Loperamide HCl (Loperamide Hcl 2 Mg Capsule) 2 mg PO BID PRN PRN Reason: diarrhea Metoprolol Succinate (Metoprolol Succinate Er 25 Mg Tab.Er.24h) 25 mg PO DAILY [facility]; Protocol Last Admin: 10/21/22 08:04 Dose: 25 mg Ondansetron HCl (Ondansetron Hcl 4 Mg/2 Ml Vial) 4 mg IVPUSH Q8H PRN PRN Reason: Nausea and Vomiting Pharmacy Consult (Consult Rx Perform Med Rec) 1 each MISCELLANE ONCE PRN PRN Reason: Consult order Prednisone (Prednisone 10 Mg Tablet) 10 mg PO DAILY [facility] Last Admin: 10/21/22 08:04 Dose: 10 mg Sodium Chloride (0.9 % Sodium Chloride Flush 3 Ml Syringe) 3 ml IVFLUSH QSHIFT [facility] Last Admin: 10/21/22 08:05 Dose: 3 ml Tacrolimus (Tacrolimus 1 Mg Capsule) 2 mg PO BID [facility] Last Admin: 10/21/22 08:04 Dose: 2 mg Trazodone HCl (Trazodone Hcl 25 Mg Halftab) 25 mg PO BEDTIME [facility] Last Admin: 10/20/22 23:06 Dose: 25 mg Home Medications Medication Instructions Recorded Confirmed Last Taken Type albuterol sulfate 2.5 mg/3 mL 1 amp inhalation TID PRN 08/26/21 10/20/22 Unknown History (0.083 %) solution for nebulization Respiratory Distress albuterol sulfate 90 mcg/actuation 2 puff PO Q4H PRN wheezing 08/26/21 10/20/22 Unknown History aerosol inhaler (ProAir HFA) amlodipine 5 mg tablet 5 mg PO DAILY 08/26/21 10/20/22 12/11/21 History aspirin 81 mg tablet,delayed 81 mg PO DAILY 08/26/21 10/20/22 12/11/21 History release atorvastatin 10 mg tablet 10 mg PO DAILY 08/26/21 10/20/22 12/11/21 History calcitriol 0.5 mcg capsule 0.5 mcg PO DAILY 08/26/21 10/20/22 12/11/21 History cholecalciferol (vitamin D3) 1,250 1 cap PO SA@1000 08/26/21 10/20/22 Unknown History mcg (50,000 unit) capsule duloxetine 20 mg capsule,delayed 20 mg PO DAILY 08/26/21 10/20/22 12/11/21 History release insulin glargine 100 unit/mL (3 48 unit subcut BEDTIME 0310/20/22 12/10/21 History mL) subcutaneous pen (Lantus Solostar U-100 Insulin) insulin lispro 100 unit/mL 5 unit subcut TIDWM 08/26/21 10/20/22 Unknown History subcutaneous pen (Humalog KwikPen (U-100) Insulin) lidocaine 5 % topical patch 1 patch topical DAILY 08/26/21 10/20/22 Unknown History (Lidoderm) mupirocin 2 % topical ointment 1 appl topical TID 08/26/21 10/20/22 Unknown History tacrolimus 1 mg capsule, 2 mg PO BID 08/26/21 10/20/22 12/11/21 History immediate-release tramadol 50 mg tablet 50 mg PO Q6H PRN moderate pain 08/26/21 09/24/22 Unknown History famotidine 40 mg tablet 40 mg PO BEDTIME 12/11/21 10/20/22 12/10/21 History gabapentin 100 mg capsule 100 mg PO BEDTIME 12/11/21 10/20/22 12/10/21 History hydroxyzine HCl 10 mg tablet 10 mg PO BID 09/24/22 10/20/22 Unknown History loperamide 2 mg capsule 2 mg PO BID PRN diarrhea 09/24/22 10/20/22 Unknown History trazodone 50 mg tablet 25 mg PO BEDTIME 09/24/22 10/20/22 Unknown History acetaminophen 500 mg tablet 500 mg PO Q8H PRN Pain 10/20/22 10/20/22 Unknown History esomeprazole magnesium 40 mg 40 mg PO DAILY 10/20/22 10/20/22 Unknown History capsule,delayed release miconazole nitrate 2 % topical 1 appl topical DAILY PRN Itching 10/20/22 10/20/22 Unknown History powder (Anti-Fungal) prednisone 10 mg tablet 10 mg PO DAILY 10/20/22 10/20/22 Unknown History triamcinolone acetonide 0.025 % 1 appl topical BID 10/20/22 10/20/22 Unknown History topical ointment Physical Exam Vital Signs: Vital Signs: Last Vital Signs Temp 97.0 F 10/21/22 07:21 Pulse 83 10/21/22 09:40 Resp 20 10/21/22 07:21 BP 145/63 H 10/21/22 09:40 Pulse Ox 96 10/21/22 09:32 O2 Del Method Room Air 10/21/22 07:21 BMI result Body Mass Index 33.7 Const: General: cooperative, comfortable, no acute distress, alert and awake Nutritional Appearance: obese Orientation/consciousness: patient oriented x3 Limitations: no limitations HEENT: Head: Yes normocephalic and Yes atraumatic Neck: Neck: Yes trachea midline, Yes supple and Yes no JVD Resp: Effort & Inspection: normal respiratory effort Auscultation: clear to auscultation bilaterally Cardio: Jugular venous distension: no JVD Palpation: normal PMI Rate: regular rate Rhythm: regular rhythm Heart sounds: S1 normal heart sound present, S2 normal heart sound present, no click, no gallops, no murmurs and no rubs GI: Auscultation: normal bowel sounds Neuro: General: patient oriented x3 and no focal motor deficits Extrem: General: Yes no clubbing, cyanosis or edema Objective Labs and Meds 10/20/22 08:19 10/21/22 07:50 Lab results: Laboratory Results - last 24 hr 10/20/22 10/20/22 10/20/22 08:19 13:59 17:18 Sodium Potassium Chloride Carbon Dioxide Anion Gap BUN Creatinine Estim Creat Clear Calc Estimated GFR POC Glucose 193 H 361 H* Random Glucose Estimat Average Glucose 275 Hemoglobin A1c % 11.2 Calcium Troponin I High Sens 10/20/22 10/21/22 10/21/22 22:39 07:30 07:50 Sodium 138 Potassium 4.1 Chloride 110 H Carbon Dioxide 24 Anion Gap 8 L BUN 30 H Creatinine 2.24 H Estim Creat Clear Calc 35.3 Estimated GFR 30 POC Glucose 416 H* 247 H Random Glucose 252 H Estimat Average Glucose Hemoglobin A1c % Calcium 8.5 Troponin I High Sens 10/21/22 08:43 Sodium Potassium Chloride Carbon Dioxide Anion Gap BUN Creatinine Estim Creat Clear Calc Estimated GFR POC Glucose Random Glucose Estimat Average Glucose Hemoglobin A1c % Calcium Troponin I High Sens 40.6 H EKG shows normal sinus rhythm with left axis deviation with no acute ST T wave changes. Imaging Radiologist's impression: Impressions Foot X-Ray 10/21/22 09:09 IMPRESSION: No evidence of osteomyelitis. Stable post indentation changes to the fifth toe. Assessment and Plan (1) Syncope and collapse: Status: Acute Syncopal episode in this middle-aged man appears to be related orthostatic hypotension. Given his labile blood pressures strongly suspect autonomic dysfunction Related to diabetes. This can be very difficult problem to resolve especially given that he has significant high blood pressure and other and. Need to rule out renal artery stenosis and will pursue workup as an outpatient for the same. His stress test also abnormal and there is likelihood of underlying coronary artery disease that needs to be pursued as outpatient. Will also suggest a head-up tilt-table test as outpatient along with a 7 day Holter monitor to assess for any other cardiac arrhythmias. We discussed in details about orthostatic precautions. Advised to maintain adequate hydration which she is currently doing. Advised to monitor blood pressure at home maintain a log. Will have to titrate his medications according to his blood pressure readings at home. Will follow up with although workup in 4 weeks. Thank you for allowing me to partake in his care Time Spent With Patient Time: Total time managing care of this patient today ____ minutes. Procedures Date of Service Date of Service: 10/21/22
[2022-10-21 11:34] LABS: Glucose, Whole Blood 266 mg/dL (60-115)
--- NOTE | 2022-10-21 13:21 | P.DS_ITS ---
DS: Providers Provider Date of Service: 10/21/22 Date of admission: 10/20/22 14:58 Date of discharge: 10/21/22 Primary care physician: Zoraida Luo MD Consults: 10/20/22 14:58 Consult to Cardiology Routine Consulting Provider: [facility] [place] Cardiovascular Services Reason for consultation: Syncope DS: Diagnosis Discharge Diagnosis (1) Syncope and collapse: Status: Acute (2) Orthostatic hypotension: Status: Acute (3) Atrial arrhythmia: Status: Acute (4) Diabetic infection of right foot: Status: Acute DS: Summary Hospital Course Hospital Course: from admission H+P by hospitalist ADONIS Bella, 10/20/22: Pt is a 57-year-old [place]-speaking male with a PMH significant for?HTN insulin-dependent diabetes type 2, hx of osteomyelitis s/p amputated 5th right toe, s/p kidney transplant not on hemodialysis the past 10 years, and asthma who presents to the ED after a syncopal episode.? Patient states that he was walking around his apartment complex earlier today when he suddenly felt lightheaded, had a sharp stabbing pain in his left chest, and then lost consciousness falling forward on his face and left shoulder.? Episode was unwitnessed.? Patient says he may have lost consciousness for up to 10 minutes.? When he awoke he continued to feel sharp stabbing pain in his left chest and left shoulder.? He sat on the ground for a few minutes until he felt well enough to get up and then presented to the ED for further evaluation.? He denies having a syncopal episode before, though notes he has been feeling lightheaded for the past few weeks when he stands up. Pt has multiple other chronic complaints: intermittent palpitations for the past two months for which he has been seen and evaluated here with currently negative workup; chronic shortness of breath and fatigue; daily headaches for the past 2+ months; chronic left shoulder pain with reduced ROM for which he receives cortisone injections.? Patient has had a continuous glucose monitor for 1 year now, but notes that the past 2 weeks his readings have been quite high in the 300s to 400s. In the ED labs were significant for chronically elevated WBC 12.3, H&H 13.4/40.4, sodium of 133, chronically elevated BUN of 37 and creatinine of 2.59 (near baseline), random glucose of 391, ALT of 48, and alk-phos of 1.2. CXR negative for acute cardiopulmonary process. Shoulder X-ray showed new 3 mm ossification inferior to the glenoid, possibly age-indeterminate fracture fragment versus loose body with no additional fracture or dislocation. EKG demonstrated normal sinus rhythm with criteria for LVH and no evidence of ST elevations or depressions.? Orthostatics positive with SBP change of 32 and DBP of 13. Pt was treated with normal saline, and insulin. Pt will be admitted to the hospital under observation on telemetry for further workup and evaluation of syncopal episode. He [place] [facility] [place]. He was given IV fluid hydration and orthostasis resolved. Telemetry showed frequent PACs. Cardiology was consulted and per their note: Syncopal episode in this middle-aged man appears to be related? orthostatic hypotension. Given his labile blood pressures strongly suspect autonomic dysfunction? Related to diabetes.? This can be very difficult problem to resolve especially given that he has significant high blood pressure and other and.? Need to rule out renal artery stenosis and will pursue workup as an outpatient for the same.? His stress test also abnormal and there is likelihood of underlying coronary artery disease that needs to be pursued as outpatient.? Will also suggest a head-up tilt-table test as outpatient along with a 7 day Holter monitor to assess for any other cardiac arrhythmias.? We discussed in details about orthostatic precautions.? Advised to maintain adequate hydration which she is currently doing.? Advised to monitor blood pressure at home maintain a log.? Will have to titrate his medications according to his blood pressure readings at home.? He was also noted to have a red 3rd toe after he scratched off his toenail there. No signs of sepsis and X-ray did not show underlying osteomyelitis. He was thought to have early nonpurulent diabetic toe infection and was discharged on doxcycline and amoxillin-clavulanate for 7 days. Time Spent with Patient Time attestation: Total time managing care of this patient today _25___ minutes. Discharge coordination time: Less than 30 minutes Quality: Safe Use of Opioids Does Pt have an Active Cancer Diagnosis on the Problem List?: No Quality: Stroke Does the patient have a stroke diagnosis?: No Physical Exam Vital Signs: Vital Signs: Last Vital Signs Temp 97.5 F 10/21/22 11:17 Pulse 72 05/03/23 11:17 Resp 20 10/21/22 11:17 BP 146/79 H 10/21/22 11:17 Pulse Ox 98 10/21/22 11:17 O2 Del Method Room Air 10/21/22 11:17 BMI result Body Mass Index 33.7 Gen: in no acute distress HEENT: sclera anicteric, moist mucus membranes Neck: supple Lungs: clear to auscultation bilaterally Heart: regular rate and rhythm, no murmurs Abd: soft, non-tender, non-distended Ext: no edema Skin: warm/well-perfused, R 3rd toenail missing, R 3rd toe slightly erythematous/swollen without ulcers or drainage Neuro: alert and oriented x3, feet neuropathic Psych: appropriate affect DS: Data Data Completed and Pending Completed studies during hospitalization [Text1]: Laboratory Results WBC 12.3 X10*3/uL (4.8-10.8) H 10/20/22 08:19 RBC 4.87 X10*6/uL (4.60-5.80) 10/20/22 08:19 Hgb 13.4 g/dl (14.0-18.0) L 10/20/22 08:19 Hct 40.4 % (42.0-52.0) L 10/20/22 08:19 MCV 83.0 fL (80.0-98.0) 10/20/22 08:19 MCH 27.5 pg (27.0-33.0) 10/20/22 08:19 MCHC 33.2 g/dl (31.0-36.0) 10/20/22 08:19 RDW 13.8 % (11.0-16.0) 10/20/22 08:19 Plt Count 222 X10*3/uL (160-400) 10/20/22 08:19 MPV 11.1 fL (9.4-12.4) 10/20/22 08:19 Immature Gran % (Auto) 0.9 % (0.0-0.4) H 10/20/22 08:19 Neut % (Auto) 76.0 % (45-73) H 10/20/22 08:19 Lymph % (Auto) 12.9 % (20-40) L 10/20/22 08:19 [place] % (Auto) 9.3 % (2-11) 10/20/22 08:19 Eos % (Auto) 0.5 % (0-4) 10/20/22 08:19 Baso % (Auto) 0.4 % (0-2) 10/20/22 08:19 Lymph # (Auto) 1.6 X10*3/uL (1.2-4.9) 10/20/22 08:19 [place] # (Auto) 1.2 X10*3/uL (0.1-1.2) 10/20/22 08:19 Eos # (Auto) 0.1 X10*3/uL (0.0-0.4) 10/20/22 08:19 Baso # (Auto) 0.1 X10*3/uL (0.0-0.2) 10/20/22 08:19 Abs Immat Gran (auto) 0.11 X10*3/uL (0.00-0.03) H 10/20/22 08:19 Absolute Neuts (auto) 9.4 x10*3/uL (2.0-8.3) H 10/20/22 08:19 Absolute Nucleated RBC 0.000 X10*3/uL (0.0-0.012) 10/20/22 08:19 Nucleated RBC % (auto) 0.0 /100WBC (0.0-0.2) 10/20/22 08:19 Sodium 138 mmol/L (135-145) 10/21/22 07:50 Potassium 4.1 mmol/L (3.3-5.1) 10/21/22 07:50 Chloride 110 mmol/L (96-108) H 10/21/22 07:50 Carbon Dioxide 24 mmol/L (22-29) 10/21/22 07:50 Anion Gap 8 (12-20) L 10/21/22 07:50 BUN 30 mg/dL (9-16) H 10/21/22 07:50 Creatinine 2.24 mg/dL (0.5-1.4) H 10/21/22 07:50 Estim Creat Clear Calc 35.3 10/21/22 07:50 Estimated GFR 30 10/21/22 07:50 POC Glucose 266 mg/dL (60-115) H 10/21/22 11:21 Random Glucose 252 mg/dL (60-115) H 10/21/22 07:50 Estimat Average Glucose 275 mg/dL 10/20/22 08:19 Hemoglobin A1c % 11.2 % 10/20/22 08:19 Calcium 8.5 mg/dL (8.4-10.2) 10/21/22 07:50 Total Bilirubin 0.6 mg/dL (0.0-1.0) 10/20/22 08:19 Direct Bilirubin 0.2 mg/dL (0.0-0.5) 10/20/22 08:19 AST 35 U/L (5-37) 10/20/22 08:19 ALT 48 U/L (0-40) H 10/20/22 08:19 Alkaline Phosphatase 122 U/L (39-117) H 10/20/22 08:19 Troponin I High Sens 40.6 ng/L (<3.5-35.0) H 10/21/22 08:43 Total Protein 6.0 g/dL (6.5-8.0) L 10/20/22 08:19 Albumin 3.5 g/dL (3.5-5.0) 10/20/22 08:19 Lipase 32 U/L (8-78) 10/20/22 08:19 Urine Color Yellow 10/20/22 08:19 Urine Appearance Clear 10/20/22 08:19 Urine pH 5.5 (5.0-9.0) 10/20/22 08:19 Ur Specific Gantt 1.025 (1.005-1.025) 10/20/22 08:19 Urine Protein 30 (1+) mg/dL (Neg-Trace) H 10/20/22 08:19 Urine Glucose (UA) >=1000 mg/dL (Negative) H 10/20/22 08:19 Urine Ketones Negative mg/dL (Negative) 10/20/22 08:19 Urine Blood Negative (Negative) 10/20/22 08:19 Urine Nitrite Negative (Negative) 10/20/22 08:19 Ur Leukocyte Esterase Negative (Negative) 10/20/22 08:19 Urine RBC 0-2 /HPF (0-2) 10/20/22 08:19 Urine WBC 0-5 /HPF (0-5) 10/20/22 08:19 Ur Squamous Epith Cells 0-2 /HPF (0-2) 10/20/22 08:19 Urine Bacteria None Seen (None Seen) 10/20/22 08:19 Hyaline Casts 0-2 /LPF (0-2) 10/20/22 08:19 COVID-19 ([place]) Negative (Negative) 10/20/22 08:19 COVID-19 Clin Com See Note 10/20/22 08:19 Impressions Shoulder X-Ray 10/20/22 06:47 IMPRESSION: 3 mm ossification inferior to the glenoid, new as compared to the prior study. Differential consideration include age-indeterminate fracture fragment versus loose body. No additional acute fracture or dislocation. [id number] acromial clavicular arthritis. Chest X-Ray 10/20/22 08:10 IMPRESSION: No acute cardiopulmonary process. Foot X-Ray 10/21/22 09:09 IMPRESSION: No evidence of osteomyelitis. Stable post indentation changes to the fifth toe. Discharge Plan Discharge Anticipated Discharge Date/Time: 10/21/22 12:40 Patient Disposition: Home, Self-Care Discharge Diagnosis: orthostatic hypotension history of abnormal stress test infection of right 3rd toe Referrals: Emiliano Cabrera MD [Physician] - 1 Week Zoraida Luo MD [Primary Care Provider] - 1 Week Discharge Medications: New doxycycline monohydrate 100 mg tablet 100 mg PO BID Qty: 14 0RF amoxicillin-pot clavulanate 875-125 mg tablet 1 tab PO BID Qty: 14 0RF Continued albuterol sulfate 2.5 mg /3 mL (0.083 %) solution for nebulization 1 amp inhalation TID PRN (Reason: Respiratory Distress) atorvastatin 10 mg tablet 10 mg PO DAILY amlodipine 5 mg tablet 5 mg PO DAILY aspirin 81 mg tablet,delayed release (DR/EC) 81 mg PO DAILY tramadol 50 mg tablet 50 mg PO Q6H PRN (Reason: moderate pain) calcitriol 0.5 mcg capsule 0.5 mcg PO DAILY lidocaine [Lidoderm] 5 % adhesive patch,medicated 1 patch topical DAILY Protocol: Apply to: Apply to: BACK mupirocin 2 % ointment 1 appl topical TID Protocol: Apply to: Apply to: AFFECTED AREA albuterol sulfate [ProAir HFA] 90 mcg/actuation HFA aerosol inhaler 2 puff PO Q4H PRN (Reason: wheezing) tacrolimus 1 mg capsule 2 mg PO BID Patient Comments: PATIENTS DOSE WAS RECENTLY DECREASED TO 2 IN THE AM INSTEAD OF 3 insulin lispro [Humalog KwikPen Insulin] 100 unit/mL insulin pen 5 unit subcut TIDWM duloxetine 20 mg capsule,delayed release(DR/EC) 20 mg PO DAILY cholecalciferol (vitamin D3) 1,250 mcg (50,000 unit) capsule 1 cap PO SA@1000 insulin glargine [Lantus Solostar U-100 Insulin] 100 unit/mL (3 mL) insulin pen 48 unit subcut BEDTIME famotidine 40 mg Tablet 40 mg PO BEDTIME gabapentin 100 mg Capsule 100 mg PO BEDTIME prednisone 10 mg Tablet 10 mg PO DAILY triamcinolone acetonide 0.025 % Ointment 1 appl TOPICAL BID miconazole nitrate [Anti-Fungal] 2 % Powder 1 appl TOPICAL DAILY PRN (Reason: Itching) acetaminophen 500 mg Tablet 500 mg PO Q8H PRN (Reason: Pain) esomeprazole magnesium 40 mg Capsule,Delayed Release(Dr/Ec) 40 mg PO DAILY loperamide 2 mg capsule 2 mg PO BID PRN (Reason: diarrhea) hydroxyzine HCl 10 mg tablet 10 mg PO BID trazodone 50 mg tablet 25 mg PO BEDTIME metoprolol succinate [Toprol XL] 25 mg tablet extended release 24 hr 25 mg PO DAILY Qty: 90 3RF Discharge Orders: Discharge Order (Routine); Ordered 10/21/22 Ordered By: Esequiel Kendall Diet: Diabetic diet Activity on Discharge: As tolerated Stand Alone Forms: Patient Portal Discharge page Care Plan Goals: syncope prevention cardiac workup cure of diabetic foot infection Health Concerns: orthostatic hypotension history of abnormal stress test infection of right 3rd toe Plan of Treatment: likely autonomic dysfunction due to diabetes will need to follow up with [facility] [place] Cardiovascular [Dr Cabrera and associates]- renal artery Dopplers, tilt-table test, 7-day Holter monitor. orthostatic precautions reviewed check your BP at home for toe infection, take doxycycline 100 mg twice daily plus amoxicillin- clavulanate 875-125 mg twice daily Please follow up with your primary care doctor within 1 week. Return to the hospital if you experience recurrent or worsening symptoms. Assessment: See Discharge Summary. Patient Instructions: Syncope (DC)
--- NOTE | 2022-10-21 15:54 | MHC.CM.PN ---
Pt medically cleared for D/C home, self care, no services, pt to transport self.
== END 2022-10-21 14:50 | disposition home or self-care (01) ==
LOC: HO.ED 11:20 → HO.EDOVER 15:43 → HO.IMC 10-21 00:10
PROVIDERS: Admitting Provider Student in an Organized Health Care Education/Training Program; Emergency Provider Emergency Medicine; PCP Family Medicine; Visit Provider Family Medicine
DX: R55 Syncope and collapse (principal); I95.1 Orthostatic hypotension; I49.8 Other specified cardiac arrhythmias; E11.628 Type 2 diabetes mellitus with other skin complications; R07.89 Other chest pain; E87.1 Hypo-osmolality and hyponatremia; D72.829 Elevated white blood cell count, unspecified; E11.22 Type 2 diabetes mellitus with diabetic chronic kidney disease; I12.9 Hypertensive chronic kidney disease with stage 1 through stage 4 chronic kidney disease, or unspecified chronic kidney disease; N18.4 Chronic kidney disease, stage 4 (severe); D63.1 Anemia in chronic kidney disease; Z94.0 Kidney transplant status; J45.909 Unspecified asthma, uncomplicated; R51.9 Headache, unspecified; E66.9 Obesity, unspecified; Z68.33 Body mass index [BMI] 33.0-33.9, adult; Z89.421 Acquired absence of other right toe(s); Z79.02 Long term (current) use of antithrombotics/antiplatelets; Z79.4 Long term (current) use of insulin; Z79.899 Other long term (current) drug therapy; Z79.82 Long term (current) use of aspirin; Z20.822 Contact with and (suspected) exposure to COVID-19
CPT/HCPCS: 36415; 71045; 73020; 73630; 80048; 80076; 81001; 82947; 83036; 83690; 84484; 85025; 87635; 93005; 96361; 96372; 96374; 97161; 99222; 99285; J1643

== ENCOUNTER 2022-10-27 13:22 | Outpatient (REF) | payer MEDICAID, SELFPAY ==
--- NOTE | ~2022-10-27 | XR_ITS ---
EXAMINATION: XR RIBS, BILATERAL CLINICAL INFORMATION: Fall. Left anterior rib injury. COMPARISON: Previous chest x-ray most recent October 20, 2022 TECHNIQUE: 3 views of the bilateral ribs and one view of the chest were obtained. FINDINGS: The cardiac and mediastinal contours are stable. The lungs are clear. No pleural effusion or pneumothorax. No rib fracture is seen. There is a stent in the left upper arm surgical clips. XR/XR ribs BI min 4V w CXR1V IMPRESSION: No evidence for acute disease in the chest. No rib fracture.
== END 2022-10-27 13:23 | disposition home or self-care (01) ==
LOC: HO.HHCX 13:22
PROVIDERS: Visit Provider Emergency Medicine
DX: R07.81 Pleurodynia (principal); Z91.81 History of falling
CPT/HCPCS: 71111

== ENCOUNTER 2022-10-27 14:52 | Emergency (ER) | payer MEDICAID, SELFPAY ==
--- NOTE | 2022-10-27 14:57 | ECG_ITS ---
Test Reason : CHEST PAIN Blood Pressure : / mmHG Vent. Rate : 079 BPM Atrial Rate : 079 BPM P-R Int : 116 ms QRS Dur : 106 ms QT Int : 380 ms P-R-T Axes : 023 -36 110 degrees QTc Int : 435 ms Sinus rhythm with Premature supraventricular complexes Left axis deviation T wave abnormality, consider lateral ischemia Abnormal ECG When compared with ECG of 20-OCT-2022 07:58, Premature supraventricular complexes are now Present Referred By: Generic ED Physician Electronically Signed By:BRENDON GALVEZ
--- NOTE | 2022-10-27 15:19 | ED.GENADULT ---
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 patient reports that he fell down 3 days ago. He reports he landed on his left upper chest wall he denies any head injury or any other injury from the fall and there was no loss of consciousness he reports 10/10 pain to the area when he pushes on and 10/10 pain with coughing he reports that he had an outpatient x-ray and his doctor thought he had a broken rib so he sent me here. <Odin Greenwood - Last Filed: 10/28/22 00:29> Related Data Home medications: Home Medications Medication Instructions Recorded Confirmed albuterol sulfate 2.5 mg/3 mL 1 amp inhalation TID PRN 08/26/21 10/20/22 (0.083 %) solution for nebulization Respiratory Distress albuterol sulfate 90 mcg/actuation 2 puff PO Q4H PRN wheezing 08/26/21 10/20/22 aerosol inhaler (ProAir HFA) amlodipine 5 mg tablet 5 mg PO DAILY 08/26/21 10/20/22 aspirin 81 mg tablet,delayed 81 mg PO DAILY 08/26/21 10/20/22 release atorvastatin 10 mg tablet 10 mg PO DAILY 08/26/21 10/20/22 calcitriol 0.5 mcg capsule 0.5 mcg PO DAILY 08/26/21 10/20/22 cholecalciferol (vitamin D3) 1,250 1 cap PO SA@1000 08/26/21 10/20/22 mcg (50,000 unit) capsule duloxetine 20 mg capsule,delayed 20 mg PO DAILY 08/26/21 10/20/22 release insulin glargine 100 unit/mL (3 48 unit subcut BEDTIME 08/26/21 10/20/22 mL) subcutaneous pen (Lantus Solostar U-100 Insulin) insulin lispro 100 unit/mL 5 unit subcut TIDWM 08/26/21 10/20/22 subcutaneous pen (Humalog KwikPen (U-100) Insulin) lidocaine 5 % topical patch 1 patch topical DAILY 08/26/21 10/20/22 (Lidoderm) mupirocin 2 % topical ointment 1 appl topical TID 08/26/21 10/20/22 tacrolimus 1 mg capsule, 2 mg PO BID 08/26/21 10/20/22 immediate-release tramadol 50 mg tablet 50 mg PO Q6H PRN moderate pain 08/26/21 09/24/22 famotidine 40 mg tablet 40 mg PO BEDTIME 12/11/21 10/20/22 gabapentin 100 mg capsule 100 mg PO BEDTIME 12/11/21 10/20/22 hydroxyzine HCl 10 mg tablet 10 mg PO BID 09/24/22 10/20/22 loperamide 2 mg capsule 2 mg PO BID PRN diarrhea 09/24/22 10/20/22 trazodone 50 mg tablet 25 mg PO BEDTIME 09/24/22 10/20/22 acetaminophen 500 mg tablet 500 mg PO Q8H PRN Pain 10/20/22 10/20/22 esomeprazole magnesium 40 mg 40 mg PO DAILY 10/20/22 10/20/22 capsule,delayed release miconazole nitrate 2 % topical 1 appl topical DAILY PRN Itching 10/20/22 10/20/22 powder (Anti-Fungal) prednisone 10 mg tablet 10 mg PO DAILY 10/20/22 10/20/22 triamcinolone acetonide 0.025 % 1 appl topical BID 10/20/22 10/20/22 topical ointment Previous Rx's Medication Instructions Recorded metoprolol succinate 25 mg 25 mg PO DAILY #90 tabs 09/24/22 tablet,extended release 24 hr (Toprol XL) amoxicillin 875 mg-potassium 1 tab PO BID #14 tabs 10/21/22 clavulanate 125 mg tablet doxycycline monohydrate 100 mg 100 mg PO BID #14 tabs 10/21/22 tablet acetaminophen 500 mg capsule 500 mg PO Q8H PRN pain #20 caps 10/28/22 oxycodone 5 mg tablet 5 mg PO BID PRN severe pain (scale 10/28/22 score 7-10) #10 tabs <ADONIS Lopes - Last Filed: 10/27/22 15:32> Allergies/adverse reactions: Allergies Allergy/AdvReac Type Severity Reaction Status Date / Time hydromorphone [From DILAUDID] Allergy Mild ITCHINESS Verified 10/06/22 16:17 diphenhydramine Allergy Unknown UNK Verified 10/06/22 16:17 [From BENADRYL] regadenoson [From Lexiscan] AdvReac Mild Itching Verified 10/06/22 16:17 <ADONIS Lopes - Last Filed: 10/27/22 15:32> Review of Systems Constitutional: Constitutional: Reports as per HPI, Denies chills, Denies fatigue, Denies fever(s) and Denies headache(s) <Odin Greenwood - Last Filed: 10/28/22 00:29> ENT: Denies headache(s) <Odin Greenwood - Last Filed: 10/28/22 00:29> Cardiovascular: Cardiovascular: Reports chest pain and Denies dyspnea <Odin Greenwood - Last Filed: 10/28/22 00:29> Respiratory: Respiratory: Reports pain with cough and Denies dyspnea <Odin Greenwood - Last Filed: 10/28/22 00:29> Gastrointestinal: Gastrointestinal: Denies abdominal pain, Denies constipation and Denies vomiting <Odin Greenwood - Last Filed: 10/28/22 00:29> Neurologic: Denies headache(s) and Denies focal weakness <Odin Greenwood - Last Filed: 10/28/22 00:29> Endocrine: Endocrine: Denies fatigue <Odin Greenwood - Last Filed: 10/28/22 00:29> [facility] Past Medical History Medical History: Medical History Amputation of fifth toe of right foot Chronic hyperglycemia Diabetes History of osteomyelitis HTN (hypertension) <ADONIS Lopes - Last Filed: 10/27/22 15:32> Surgical History: Surgical History H/O arteriovenostomy for renal dialysis Renal transplant recipient <ADONIS Lopes - Last Filed: 10/27/22 15:32> Family History Family History: Family History Other Diabetes No family history of coronary artery disease <ADONIS Lopes - Last Filed: 10/27/22 15:32> Social History Social History: Social History Household Members: None Housing: House Do you presently have visiting nurse or other home services: No Alcohol intake: never Patient Tobacco Use Status: Never used Tobacco Advance Directives: Yes Advance Directives on File: Yes Advance Directives Date on File: 01/21/22 service: No Current occupational status: disabled <ADONIS Lopes - Last Filed: 10/27/22 15:32> Physical Exam ED Vital Signs: Vital Signs - 24 hr 10/27/22 15:22 10/27/22 22:05 10/27/22 23:54 Temperature 98.1 F 98.0 F Pulse Rate 22 L 66 74 Respiratory Rate 85 H 16 16 Blood Pressure 123/72 120/55 L 117/63 Pulse Oximetry 95 97 97 Oxygen Delivery Method Room Air Room Air Room Air BMI result Body Mass Index 32.4 <ADONIS Lopes - Last Filed: 10/27/22 15:32> Vital Signs - 24 hr 10/27/22 15:22 10/27/22 22:05 10/27/22 23:54 Temperature 98.1 F 98.0 F Pulse Rate 22 L 66 74 Respiratory Rate 85 H 16 16 Blood Pressure 123/72 120/55 L 117/63 Pulse Oximetry 95 97 97 Oxygen Delivery Method Room Air Room Air Room Air BMI result Body Mass Index 32.4 <Odin Greenwood - Last Filed: 10/28/22 00:29> Const General: healthy appearing, comfortable, no acute distress, alert and awake <Odin GillespieBridger - Last Filed: 10/28/22 00:29> Nutritional Appearance: well nourished <Odin OBridger - Last Filed: 10/28/22:29> Orientation/consciousness: patient oriented x3 <Odin OJaquan Filed: 10/28/22:29> HENMT Head: Yes normocephalic and Yes atraumatic <Odin O Last Filed: 10/28/22:29> Neck Neck: Yes full ROM <Odin O Last Filed: 10/28/22:29> Chest Other: The patient has tenderness to the left anterior chest wall at the area of the 2nd through 4th ribs. No significant ecchymosis, no crepitus, no deformity noted. <Odin OBridger - Last Filed: 10/28/22 00:29> Resp Effort & Inspection: normal respiratory effort, able to speak in complete sentences, no audible wheezes and not labored <Odin O Last Filed: 10/28/22:29> Auscultation: clear to auscultation bilaterally <Odin O Last Filed: 10/28/22:29> Cardio Rate: regular rate <Odin O Last Filed: 10/28/22 00:29> Rhythm: regular rhythm <Odin OBridger - Last Filed: 10/28/22:29> GI Inspection: No distended <Odin OJaquan - Last Filed: 10/28/22:29> Palpation (GI): Soft to palpation, not firm, nontender, no guarding and not rigid <Odin OBridger - Last Filed: 10/28/22:29> Auscultation: normoactive bowel sounds <Odin OJaquan - Last Filed: 10/28/22:29> Skin General skin exam: no rashes or lesions noted and elasticity normal <Odin OBridger - Last Filed: 10/28/22 00:29> Neuro General: patient oriented x3 <Odin OJaquan - Last Filed: 10/28/22 00:29> Cranial nerves: Yes Bilaterally intact EOM present <Odin Greenwood - Last Filed: 10/28/22 00:29> Cognition (Neuro): normal cognition <Odin Greenwood - Last Filed: 10/28/22 00:29> Extrem Other: Moving all extremities well without any obvious deformities <Odin Greenwood - Last Filed: 10/28/22 00:29> Course Course Course Narrative: RME: 57-year-old Turkmen-speaking male with a PMH significant for?HTN insulin-dependent diabetes type 2, hx of osteomyelitis s/p amputated 5th right toe, s/p kidney transplant not on hemodialysis the past 10 years, asthma, recently d/c'd from our facility on 10/21 for syncope/AFib who presents to the ED sent in by [facility] for rib fractures noted on outpatient x-ray and reported crepitus. Patient complaining of L upper rib pain s/p trip and fall ?3-4 days ago or ?1 week ago. Initially patient reports fall 3 days ago, admits to feeling dizzy prior to fall, however, on further conversation states fell prior to previous admission. Takes ASA, no other anticoagulation. Denies head trauma or LOC X-ray obtained outpatient, no official read, no appreciable free air + left anterior rib tenderness with palpable fracture, no appreciable crepitus EKG, labs ordered Full HPI, ROS and PE to be performed by primary ED provider. <ADONIS Lopes - Last Filed: 10/27/22 15:32> Medical Decision Making Medical Decision Making MDM Narrative: 57-year-old male presents for evaluation after a reported abnormal outpatient x-ray The chest wall pain. His pain is extremely reproducible on exam. He has no crepitus. He had a cardiac workup that included a troponin that was decreased from 1 week ago, his renal function is at baseline due to his renal transplant. His rib x-ray showed no obvious displaced fracture and no pneumothorax. I discussed this with the patient. Given his tenderness, he may still have a subtle, nondisplaced rib fracture. He cannot take NSAIDs due to his renal transplant we will treat with Tylenol and oxycodone 5 mg b.i.d. p.r.n. <Odin Greenwood - Last Filed: 10/28/22 00:29> Differential Diagnosis chest pain Chest wall pain rib fracture Pneumothorax <Odin Greenwood - Last Filed: 10/28/22 00:29> Lab Data [facility] Lab Attestation statement: I reviewed the patient's lab results. <Odin Greenwood - Last Filed: 10/28/22 00:29> Result Diagrams: 10/27/22 16:18 10/27/22 16:18 <ADONIS Lopes - Last Filed: 10/27/22 15:32> Labs: Lab Results 10/27/22 10/27/22 10/27/22 Range/Units 16:18 16:18 16:18 WBC 12.0 H (4.8-10.8) X10*3/uL RBC 5.43 (4.60-5.80) X10*6/uL Hgb 14.7 (14.0-18.0) g/dl Hct 45.1 (42.0-52.0) % MCV 83.1 (80.0-98.0) fL MCH 27.1 (27.0-33.0) pg MCHC 32.6 (31.0-36.0) g/dl RDW 14.0 (11.0-16.0) % Plt Count 249 (160-400) X10*3/uL MPV 10.8 (9.4-12.4) fL Immature Gran % (Auto) 0.6 H (0.0-0.4) % Neut % (Auto) 88.8 H (45-73) % Lymph % (Auto) 5.9 L (20-40) % Kaufman % (Auto) 4.4 (2-11) % Eos % (Auto) 0.0 (0-4) % Baso % (Auto) 0.3 (0-2) % Lymph # (Auto) 0.7 L (1.2-4.9) X10*3/uL Kaufman # (Auto) 0.5 (0.1-1.2) X10*3/uL Eos # (Auto) 0.0 (0.0-0.4) X10*3/uL Baso # (Auto) 0.0 (0.0-0.2) X10*3/uL Abs Immat Gran (auto) 0.07 H (0.00-0.03) X10*3/uL Absolute Neuts (auto) 10.6 H (2.0-8.3) x10*3/uL Absolute Nucleated RBC 0.000 (0.0-0.012) X10*3/uL Nucleated RBC % (auto) 0.0 (0.0-0.2) /100WBC PT 10.4 (10.0-13.1) SEC INR 0.9 (0.9-1.1) Sodium 137 (135-145) mmol/L Potassium 4.0 (3.3-5.1) mmol/L Chloride 110 H (96-108) mmol/L Carbon Dioxide 19 L (22-29) mmol/L Anion Gap 12 (12-20) BUN 27 H (9-16) mg/dL Creatinine 2.87 H (0.5-1.4) mg/dL Estim Creat Clear Calc 27.0 Estimated GFR 23 Random Glucose 214 H (60-115) mg/dL Calcium 9.0 (8.4-10.2) mg/dL Magnesium 2.1 (1.6-2.6) mg/dL Total Bilirubin 0.8 (0.0-1.0) mg/dL Direct Bilirubin 0.3 (0.0-0.5) mg/dL AST 30 (5-37) U/L ALT 57 H (0-40) U/L Alkaline Phosphatase 149 H (39-117) U/L Troponin I High Sens (<3.5-35.0) ng/L Total Protein 7.0 (6.5-8.0) g/dL Albumin 4.0 (3.5-5.0) g/dL 10/27/22 Range/Units 16:18 WBC (4.8-10.8) X10*3/uL RBC (4.60-5.80) X10*6/uL Hgb (14.0-18.0) g/dl Hct (42.0-52.0) % MCV (80.0-98.0) fL MCH (27.0-33.0) pg MCHC (31.0-36.0) g/dl RDW (11.0-16.0) % Plt Count (160-400) X10*3/uL MPV (9.4-12.4) fL Immature Gran % (Auto) (0.0-0.4) % Neut % (Auto) (45-73) % Lymph % (Auto) (20-40) % Kaufman % (Auto) (2-11) % Eos % (Auto) (0-4) % Baso % (Auto) (0-2) % Lymph # (Auto) (1.2-4.9) X10*3/uL Kaufman # (Auto) (0.1-1.2) X10*3/uL Eos # (Auto) (0.0-0.4) X10*3/uL Baso # (Auto) (0.0-0.2) X10*3/uL Abs Immat Gran (auto) (0.00-0.03) X10*3/uL Absolute Neuts (auto) (2.0-8.3) x10*3/uL Absolute Nucleated RBC (0.0-0.012) X10*3/uL Nucleated RBC % (auto) (0.0-0.2) /100WBC PT (10.0-13.1) SEC INR (0.9-1.1) Sodium (135-145) mmol/L Potassium (3.3-5.1) mmol/L Chloride (96-108) mmol/L Carbon Dioxide (22-29) mmol/L Anion Gap (12-20) BUN (9-16) mg/dL Creatinine (0.5-1.4) mg/dL Estim Creat Clear Calc Estimated GFR Random Glucose (60-115) mg/dL Calcium (8.4-10.2) mg/dL Magnesium (1.6-2.6) mg/dL Total Bilirubin (0.0-1.0) mg/dL Direct Bilirubin (0.0-0.5) mg/dL AST (5-37) U/L ALT (0-40) U/L Alkaline Phosphatase (39-117) U/L Troponin I High Sens 27.7 (<3.5-35.0) ng/L Total Protein (6.5-8.0) g/dL Albumin (3.5-5.0) g/dL <ADONIS Lopes - Last Filed: 05/09/23 15:32> Lab Results 10/27/22 10/27/22 10/27/22 Range/Units 16:18 16:18 16:18 WBC 12.0 H (4.8-10.8) X10*3/uL RBC 5.43 (4.60-5.80) X10*6/uL Hgb 14.7 (14.0-18.0) g/dl Hct 45.1 (42.0-52.0) % MCV 83.1 (80.0-98.0) fL MCH 27.1 (27.0-33.0) pg MCHC 32.6 (31.0-36.0) g/dl RDW 14.0 (11.0-16.0) % Plt Count 249 (160-400) X10*3/uL MPV 10.8 (9.4-12.4) fL Immature Gran % (Auto) 0.6 H (0.0-0.4) % Neut % (Auto) 88.8 H (45-73) % Lymph % (Auto) 5.9 L (20-40) % Kaufman % (Auto) 4.4 (2-11) % Eos % (Auto) 0.0 (0-4) % Baso % (Auto) 0.3 (0-2) % Lymph # (Auto) 0.7 L (1.2-4.9) X10*3/uL Kaufman # (Auto) 0.5 (0.1-1.2) X10*3/uL Eos # (Auto) 0.0 (0.0-0.4) X10*3/uL Baso # (Auto) 0.0 (0.0-0.2) X10*3/uL Abs Immat Gran (auto) 0.07 H (0.00-0.03) X10*3/uL Absolute Neuts (auto) 10.6 H (2.0-8.3) x10*3/uL Absolute Nucleated RBC 0.000 (0.0-0.012) X10*3/uL Nucleated RBC % (auto) 0.0 (0.0-0.2) /100WBC PT 10.4 (10.0-13.1) SEC INR 0.9 (0.9-1.1) Sodium 137 (135-145) mmol/L Potassium 4.0 (3.3-5.1) mmol/L Chloride 110 H (96-108) mmol/L Carbon Dioxide 19 L (22-29) mmol/L Anion Gap 12 (12-20) BUN 27 H (9-16) mg/dL Creatinine 2.87 H (0.5-1.4) mg/dL Estim Creat Clear Calc 27.0 Estimated GFR 23 Random Glucose 214 H (60-115) mg/dL Calcium 9.0 (8.4-10.2) mg/dL Magnesium 2.1 (1.6-2.6) mg/dL Total Bilirubin 0.8 (0.0-1.0) mg/dL Direct Bilirubin 0.3 (0.0-0.5) mg/dL AST 30 (5-37) U/L ALT 57 H (0-40) U/L Alkaline Phosphatase 149 H (39-117) U/L Troponin I High Sens (<3.5-35.0) ng/L Total Protein 7.0 (6.5-8.0) g/dL Albumin 4.0 (3.5-5.0) g/dL 10/27/22 Range/Units 16:18 WBC (4.8-10.8) X10*3/uL RBC (4.60-5.80) X10*6/uL Hgb (14.0-18.0) g/dl Hct (42.0-52.0) % MCV (80.0-98.0) fL MCH (27.0-33.0) pg MCHC (31.0-36.0) g/dl RDW (11.0-16.0) % Plt Count (160-400) X10*3/uL MPV (9.4-12.4) fL Immature Gran % (Auto) (0.0-0.4) % Neut % (Auto) (45-73) % Lymph % (Auto) (20-40) % Kaufman % (Auto) (2-11) % Eos % (Auto) (0-4) % Baso % (Auto) (0-2) % Lymph # (Auto) (1.2-4.9) X10*3/uL Kaufman # (Auto) (0.1-1.2) X10*3/uL Eos # (Auto) (0.0-0.4) X10*3/uL Baso # (Auto) (0.0-0.2) X10*3/uL Abs Immat Gran (auto) (0.00-0.03) X10*3/uL Absolute Neuts (auto) (2.0-8.3) x10*3/uL Absolute Nucleated RBC (0.0-0.012) X10*3/uL Nucleated RBC % (auto) (0.0-0.2) /100WBC PT (10.0-13.1) SEC INR (0.9-1.1) Sodium (135-145) mmol/L Potassium (3.3-5.1) mmol/L Chloride (96-108) mmol/L Carbon Dioxide (22-29) mmol/L Anion Gap (12-20) BUN (9-16) mg/dL Creatinine (0.5-1.4) mg/dL Estim Creat Clear Calc Estimated GFR Random Glucose (60-115) mg/dL Calcium (8.4-10.2) mg/dL Magnesium (1.6-2.6) mg/dL Total Bilirubin (0.0-1.0) mg/dL Direct Bilirubin (0.0-0.5) mg/dL AST (5-37) U/L ALT (0-40) U/L Alkaline Phosphatase (39-117) U/L Troponin I High Sens 27.7 (<3.5-35.0) ng/L Total Protein (6.5-8.0) g/dL Albumin (3.5-5.0) g/dL <Odin Greenwood - Last Filed: 10/28/22 00:29> Independent Interpretation I performed an independent interpretation of an: EKG and Plain X-Ray ( no obvious displaced rib fracture, no pneumothorax) <Odin Greenwood - Last Filed: 10/28/22 00:29> Discharge Plan Discharge Clinical Impression: Left-sided chest wall pain, Chronic kidney disease <ADONIS Lopes - Last Filed: 10/27/22 15:32> Patient Disposition: Home, Self-Care <ADONIS Lopes - Last Filed: 10/27/22 15:32> Instructions: Chest Wall Pain (ED) <ADONIS Lopes - Last Filed: 10/27/22 15:32> Additional Instructions: your x-ray did not show any obvious displaced rib fracture. it is possible that you have a subtle, nondisplaced fracture your pain med as before may contusion you may take Tylenol for pain and oxycodone for more severe or breakthrough pain this may make you sleepy, did not drink alcohol or drive after taking it follow-up with your primary doctor <ADONIS Lopes - Last Filed: 10/27/22 15:32> Prescriptions: New acetaminophen 500 mg capsule 500 mg PO Q8H PRN (Reason: pain) Qty: 20 0RF oxycodone 5 mg tablet 5 mg PO BID PRN (Reason: severe pain (scale score 7-10)) Qty: 10 0RF Rx Instructions: Partial Fill upon patient request. No Action albuterol sulfate 2.5 mg /3 mL (0.083 %) solution for nebulization 1 amp inhalation TID PRN (Reason: Respiratory Distress) atorvastatin 10 mg tablet 10 mg PO DAILY amlodipine 5 mg tablet 5 mg PO DAILY aspirin 81 mg tablet,delayed release (DR/EC) 81 mg PO DAILY tramadol 50 mg tablet 50 mg PO Q6H PRN (Reason: moderate pain) calcitriol 0.5 mcg capsule 0.5 mcg PO DAILY lidocaine [Lidoderm] 5 % adhesive patch,medicated 1 patch topical DAILY Protocol: Apply to: Apply to: BACK mupirocin 2 % ointment 1 appl topical TID Protocol: Apply to: Apply to: AFFECTED AREA albuterol sulfate [ProAir HFA] 90 mcg/actuation HFA aerosol inhaler 2 puff PO Q4H PRN (Reason: wheezing) tacrolimus 1 mg capsule 2 mg PO BID Patient Comments: PATIENTS DOSE WAS RECENTLY DECREASED TO 2 IN THE AM INSTEAD OF 3 insulin lispro [Humalog KwikPen Insulin] 100 unit/mL insulin pen 5 unit subcut TIDWM duloxetine 20 mg capsule,delayed release(DR/EC) 20 mg PO DAILY cholecalciferol (vitamin D3) 1,250 mcg (50,000 unit) capsule 1 cap PO SA@1000 insulin glargine [Lantus Solostar U-100 Insulin] 100 unit/mL (3 mL) insulin pen 48 unit subcut BEDTIME famotidine 40 mg Tablet 40 mg PO BEDTIME gabapentin 100 mg Capsule 100 mg PO BEDTIME prednisone 10 mg Tablet 10 mg PO DAILY triamcinolone acetonide 0.025 % Ointment 1 appl TOPICAL BID miconazole nitrate [Anti-Fungal] 2 % Powder 1 appl TOPICAL DAILY PRN (Reason: Itching) acetaminophen 500 mg Tablet 500 mg PO Q8H PRN (Reason: Pain) esomeprazole magnesium 40 mg Capsule,Delayed Release(Dr/Ec) 40 mg PO DAILY doxycycline monohydrate 100 mg tablet 100 mg PO BID Qty: 14 0RF amoxicillin-pot clavulanate 875-125 mg tablet 1 tab PO BID Qty: 14 0RF loperamide 2 mg capsule 2 mg PO BID PRN (Reason: diarrhea) hydroxyzine HCl 10 mg tablet 10 mg PO BID trazodone 50 mg tablet 25 mg PO BEDTIME metoprolol succinate [Toprol XL] 25 mg tablet extended release 24 hr 25 mg PO DAILY Qty: 90 3RF <ADONIS Lopes - Last Filed: 10/27/22 15:32> Interventions: ED Discharge Assessment Last Done: 10/27/22 21:10 <ADONIS Lopes - Last Filed: 10/27/22 15:32>
[2022-10-27 15:22] VITALS: BP 123/72; PULSE 22; RESP 85; TEMP 36.7; O2SAT 95; BMI 32.4
[2022-10-27 16:24] LABS: MANUAL DIFF FLAG NO
[2022-10-27 16:26] LABS: Basophils Percent Auto 0.3 % (0-2); Hematocrit 45.1 % (42.0-52.0); Hemoglobin 14.7 g/dl (14.0-18.0); Imm Gran Abs Auto 0.07 X10*3/uL (0.00-0.03); Imm Gran Pct Auto 0.6 % (0.0-0.4); Lymphocytes Absolute Auto 0.7 X10*3/uL (1.2-4.9); Lymphocytes Percent Auto 5.9 % (20-40); Mean Corpuscular HGB Conc 32.6 g/dl (31.0-36.0); Mean Corpuscular Hemoglobin 27.1 pg (27.0-33.0); Mean Corpuscular Volume 83.1 fL (80.0-98.0); Mean Platelet Volume 10.8 fL (9.4-12.4); Monocytes Absolute Auto 0.5 X10*3/uL (0.1-1.2); Monocytes Percent Auto 4.4 % (2-11); Neutrophils Absolute Auto 10.6 x10*3/uL (2.0-8.3); Neutrophils Percent Auto 88.8 % (45-73); Platelet Count 249 X10*3/uL (160-400); Red Blood Count 5.43 X10*6/uL (4.60-5.80)
[2022-10-27 16:34] LABS: INTERNATIONAL NORM RATIO 0.9 (0.9-1.1); Prothrombin Time 10.4 SEC (10.0-13.1)
[2022-10-27 16:40] LABS: Alanine Aminotransferase 57 U/L (0-40); Alkaline Phosphatase 149 U/L (39-117); Anion Gap 12 (12-20); Aspartate Amino Transferase 30 U/L (5-37); Bilirubin Direct 0.3 mg/dL (0.0-0.5); Bilirubin Total 0.8 mg/dL (0.0-1.0); Blood Urea Nitrogen 27 mg/dL (9-16); Carbon Dioxide 19 mmol/L (22-29); Chloride 110 mmol/L (96-108); Estimated Glomerular Filt Rate 23; Glucose Random 214 mg/dL (60-115); Magnesium 2.1 mg/dL (1.6-2.6); Sodium 137 mmol/L (135-145)
[2022-10-27 16:49] LABS: Troponin-I High Sensitivity 27.7 ng/L (<3.5-35.0)
[2022-10-27 22:05] VITALS: BP 120/55; PULSE 66; RESP 16; TEMP 36.7; O2SAT 97
[2022-10-27 23:54] VITALS: BP 117/63; PULSE 74; RESP 16; O2SAT 97
[2022-10-28] MEDS: Acetaminophen 325 MG TABLET 650 MG PO (00:45)
[2022-10-28 00:53] VITALS: BP 158/91; PULSE 79; RESP 14; TEMP 36.8; O2SAT 98
== END 2022-10-28 00:55 | disposition home or self-care (01) ==
PROVIDERS: Physician Assistant; Emergency Provider Internal Medicine; PCP Family Medicine
DX: R07.89 Other chest pain (principal); E11.22 Type 2 diabetes mellitus with diabetic chronic kidney disease; I12.9 Hypertensive chronic kidney disease with stage 1 through stage 4 chronic kidney disease, or unspecified chronic kidney disease; N18.9 Chronic kidney disease, unspecified; Z94.0 Kidney transplant status; Z79.02 Long term (current) use of antithrombotics/antiplatelets; Z79.82 Long term (current) use of aspirin; Z79.899 Other long term (current) drug therapy; Z79.4 Long term (current) use of insulin
CPT/HCPCS: 36415; 80048; 80076; 83735; 84484; 85025; 85610; 93005; 99283; 99284

== ENCOUNTER 2022-11-02 17:45 | Inpatient (IN) | payer MEDICAID, SELFPAY ==
--- NOTE | ~2022-11-02 | XR_ITS ---
EXAMINATION: Bilateral shoulder and right foot. CLINICAL INDICATION: Pain. TECHNIQUE: 3 views each shoulder. 3 views right foot. COMPARISON: Left shoulder 10/20/2022 and chest x-ray 11/07/2022. FINDINGS: RIGHT SHOULDER: There is mild marginal osteophytes along the right AC joint. The glenohumeral joint space is reduced. No bony erosive changes, loose bodies, fracture or dislocation. No soft tissue calcification. LEFT SHOULDER: There is minimal loss of glenohumeral joint space. The AC joint space is preserved. A small bone fragment or ossification is seen inferior to glenoid likely old injury or loose body. No bony erosive changes. No acute fracture. No soft tissue swelling. Metallic objects adjacent to the medial proximal/mid humerus are stable. RIGHT FOOT: There is partial amputation of fifth digit beyond the proximal end proximal phalanx. No visible acute fracture or dislocation seen. There is extensive vascular calcification in the right foot. The ankle mortise and subtalar joints are normal. The soft tissues are normal. XR/XR shoulder LT min 2V IMPRESSION: 1. Mild degenerative changes right AC joint and glenohumeral joint. No visible acute fracture, dislocation or subluxation seen. 2. Small bone fragment inferior to glenoid left shoulder likely old injury or loose body. It is unchanged to last left shoulder exam 11/07/2022 3. Partial amputation fifth digit beyond the proximal end proximal phalanx, right foot. No acute fracture or dislocation right foot. 4. There is extensive vascular calcification right foot.
--- NOTE | ~2022-11-02 | XR_ITS ---
EXAMINATION: XR CHEST CLINICAL INFORMATION: Fever COMPARISON: Previous chest x-ray most recent 10/27/2022 TECHNIQUE: 2 views of the chest were obtained. FINDINGS: The cardiac and mediastinal contours are stable. The lung volumes are low. The lungs are clear. No pleural effusion or pneumothorax. Bony structures are unremarkable. XR/XR chest 2V IMPRESSION: No evidence for acute disease in the chest.
--- NOTE | ~2022-11-02 | XR_ITS ---
EXAMINATION: Bilateral shoulder and right foot. CLINICAL INDICATION: Pain. TECHNIQUE: 3 views each shoulder. 3 views right foot. COMPARISON: Left shoulder 10/20/2022 and chest x-ray 11/07/2022. FINDINGS: RIGHT SHOULDER: There is mild marginal osteophytes along the right AC joint. The glenohumeral joint space is reduced. No bony erosive changes, loose bodies, fracture or dislocation. No soft tissue calcification. LEFT SHOULDER: There is minimal loss of glenohumeral joint space. The AC joint space is preserved. A small bone fragment or ossification is seen inferior to glenoid likely old injury or loose body. No bony erosive changes. No acute fracture. No soft tissue swelling. Metallic objects adjacent to the medial proximal/mid humerus are stable. RIGHT FOOT: There is partial amputation of fifth digit beyond the proximal end proximal phalanx. No visible acute fracture or dislocation seen. There is extensive vascular calcification in the right foot. The ankle mortise and subtalar joints are normal. The soft tissues are normal. XR/XR shoulder RT min 2V IMPRESSION: 1. Mild degenerative changes right AC joint and glenohumeral joint. No visible acute fracture, dislocation or subluxation seen. 2. Small bone fragment inferior to glenoid left shoulder likely old injury or loose body. It is unchanged to last left shoulder exam 11/07/2022 3. Partial amputation fifth digit beyond the proximal end proximal phalanx, right foot. No acute fracture or dislocation right foot. 4. There is extensive vascular calcification right foot.
--- NOTE | ~2022-11-02 | CT_ITS ---
EXAMINATION: CT FOOT WITHOUT CONTRAST, RIGHT CLINICAL INFORMATION: Right heel pain, redness, and swelling. COMPARISON: Multiple priors, most recent right foot radiographs dated 11/02/[address] dated 01/20/2022. TECHNIQUE: Contiguous axial CT images of the right foot were obtained without contrast. Multiplanar reformats were provided and reviewed. This CT examination was performed using dose optimization techniques as appropriate, variously including the following: *Automated exposure control *Adjustment of mA and/or kV according to patient size (this includes techniques or standardized protocols for targeted exams where dose is matched to indication/reason for exam; i.e. extremities or head) *Use of iterative reconstruction technique DLP: 145 mGy-cm FINDINGS: Mild irregularity and skin thickening along the posterior/plantar aspect of the calcaneus with underlying subcutaneous fat stranding, likely indicating acute cellulitis. No organized fluid collection or abscess formation. No adjacent periosteal reaction or cortical erosion to suggest acute osteomyelitis. Redemonstration of a 5th phalangeal resection with cortication of the remaining 5th proximal phalanx. No cortical erosion or periosteal reaction to suggest acute osteomyelitis. The visualized flexor and extensor tendons are grossly intact, however, evaluation is limited on CT examination. No significant joint effusion. Prominent atherosclerotic calcifications are redemonstrated. Joint space narrowing with subchondral cystic change at the dorsal aspect of the 2nd tarsometatarsal joint. No talar osteochondral lesion. No acute fracture or dislocation. CT/CT foot RT wo IV con IMPRESSION: 1. Mild irregularity and skin thickening along the posterior/plantar aspect of the calcaneus with underlying subcutaneous fat stranding, likely indicating acute cellulitis. No organized fluid collection or abscess formation. No adjacent periosteal reaction or cortical erosion to suggest acute osteomyelitis. 2. Redemonstration of a 5th phalangeal resection with cortication of the remaining 5th proximal phalanx. No cortical erosion or periosteal reaction to suggest acute osteomyelitis. 3. [id number] osteoarthritis at the dorsal aspect of the 2nd tarsometatarsal joint.
--- NOTE | ~2022-11-02 | XR_ITS ---
EXAMINATION: Bilateral shoulder and right foot. CLINICAL INDICATION: Pain. TECHNIQUE: 3 views each shoulder. 3 views right foot. COMPARISON: Left shoulder 10/20/2022 and chest x-ray 11/07/2022. FINDINGS: RIGHT SHOULDER: There is mild marginal osteophytes along the right AC joint. The glenohumeral joint space is reduced. No bony erosive changes, loose bodies, fracture or dislocation. No soft tissue calcification. LEFT SHOULDER: There is minimal loss of glenohumeral joint space. The AC joint space is preserved. A small bone fragment or ossification is seen inferior to glenoid likely old injury or loose body. No bony erosive changes. No acute fracture. No soft tissue swelling. Metallic objects adjacent to the medial proximal/mid humerus are stable. RIGHT FOOT: There is partial amputation of fifth digit beyond the proximal end proximal phalanx. No visible acute fracture or dislocation seen. There is extensive vascular calcification in the right foot. The ankle mortise and subtalar joints are normal. The soft tissues are normal. XR/XR foot RT 2V IMPRESSION: 1. Mild degenerative changes right AC joint and glenohumeral joint. No visible acute fracture, dislocation or subluxation seen. 2. Small bone fragment inferior to glenoid left shoulder likely old injury or loose body. It is unchanged to last left shoulder exam 11/07/2022 3. Partial amputation fifth digit beyond the proximal end proximal phalanx, right foot. No acute fracture or dislocation right foot. 4. There is extensive vascular calcification right foot.
[2022-11-02 17:57] VITALS: BP 149/101; PULSE 91; RESP 16; TEMP 36.7; O2SAT 98; BMI 32.5
--- NOTE | 2022-11-02 17:57 | ED.GENADULT ---
HPI - General Adult General Chief complaint: General Medical Stated complaint: Shoulder and Leg pain Time Seen by Provider: 11/02/22 18:36 Source: patient and healthcare interpreter Mode of arrival: ambulatory Limitations: no limitations History of Present Illness HPI narrative: 57-year-old male hi Bangladeshi-speaking with past medical history significant for HTN, poorly controlled insulin-dependent DM type 2, history of osteomyelitis status post amputation of the right 5th toe, s/p kidney transplant not on hemodialysis. Patient came in for right shoulder pain and fever with chills since yesterday. Status post mechanical fall while was shopping complaining of right shoulder pain, patient has chronic right heel wound feeling heat in his right foot and right leg. Patient had subjective fever last night, declined any discharge from the heel wound. Found to be hyperglycemic in the emergency department. Related Data Home Medications Medication Instructions Recorded Confirmed albuterol sulfate 2.5 mg/3 mL 1 amp inhalation TID PRN 08/26/21 10/20/22 (0.083 %) solution for nebulization Respiratory Distress albuterol sulfate 90 mcg/actuation 2 puff PO Q4H PRN wheezing 08/26/21 10/20/22 aerosol inhaler (ProAir HFA) amlodipine 5 mg tablet 5 mg PO DAILY 08/26/21 10/20/22 aspirin 81 mg tablet,delayed 81 mg PO DAILY 08/26/21 10/20/22 release atorvastatin 10 mg tablet 10 mg PO DAILY 08/26/21 10/20/22 calcitriol 0.5 mcg capsule 0.5 mcg PO DAILY 08/26/21 10/20/22 cholecalciferol (vitamin D3) 1,250 1 cap PO SA@1000 08/26/21 10/20/22 mcg (50,000 unit) capsule duloxetine 20 mg capsule,delayed 20 mg PO DAILY 08/26/21 10/20/22 release insulin glargine 100 unit/mL (3 48 unit subcut BEDTIME 08/26/21 10/20/22 mL) subcutaneous pen (Lantus Solostar U-100 Insulin) insulin lispro 100 unit/mL 5 unit subcut TIDWM 08/26/21 10/20/22 subcutaneous pen (Humalog KwikPen (U-100) Insulin) lidocaine 5 % topical patch 1 patch topical DAILY 08/26/21 10/20/22 (Lidoderm) mupirocin 2 % topical ointment 1 appl topical TID 08/26/21 10/20/22 tacrolimus 1 mg capsule, 2 mg PO BID 08/26/21 10/20/22 immediate-release tramadol 50 mg tablet 50 mg PO Q6H PRN moderate pain 08/26/21 09/24/22 famotidine 40 mg tablet 40 mg PO BEDTIME 12/11/21 10/20/22 gabapentin 100 mg capsule 100 mg PO BEDTIME 12/11/21 10/20/22 hydroxyzine HCl 10 mg tablet 10 mg PO BID 09/24/22 10/20/22 loperamide 2 mg capsule 2 mg PO BID PRN diarrhea 09/24/22 10/20/22 trazodone 50 mg tablet 25 mg PO BEDTIME 09/24/22 10/20/22 acetaminophen 500 mg tablet 500 mg PO Q8H PRN Pain 10/20/22 10/20/22 esomeprazole magnesium 40 mg 40 mg PO DAILY 10/20/22 10/20/22 capsule,delayed release miconazole nitrate 2 % topical 1 appl topical DAILY PRN Itching 10/20/22 10/20/22 powder (Anti-Fungal) prednisone 10 mg tablet 10 mg PO DAILY 10/20/22 10/20/22 triamcinolone acetonide 0.025 % 1 appl topical BID 10/20/22 10/20/22 topical ointment Previous Rx's Medication Instructions Recorded metoprolol succinate 25 mg 25 mg PO DAILY #90 tabs 09/24/22 tablet,extended release 24 hr (Toprol XL) amoxicillin 875 mg-potassium 1 tab PO BID #14 tabs 10/21/22 clavulanate 125 mg tablet doxycycline monohydrate 100 mg 100 mg PO BID #14 tabs 10/21/22 tablet acetaminophen 500 mg capsule 500 mg PO Q8H PRN pain #20 caps 10/28/22 oxycodone 5 mg tablet 5 mg PO BID PRN severe pain (scale 10/28/22 score 7-10) #10 tabs Allergies Allergy/AdvReac Type Severity Reaction Status Date / Time hydromorphone [From DILAUDID] Allergy Mild ITCHINESS Verified 11/02/22 17:57 diphenhydramine Allergy Unknown UNK Verified 11/02/22 17:57 [From BENADRYL] regadenoson [From Lexiscan] AdvReac Mild Itching Verified 11/02/22 17:57 Review of Systems Review of Systems: All other systems are reviewed and are negative Constitutional: Reports as per HPI and Reports no additional constitutional complaints Eyes: Reports as per HPI and Reports no additional eye complaints Reports system reviewed and no additional complaints, except as documented Cardiovascular: Reports as per HPI and Reports no additional cardiovascular complaints Respiratory: Reports as per HPI and Reports no additional respiratory complaints Gastrointestinal: Reports as per HPI and Reports no additional gastrointestinal complaints Genitourinary: Reports no additional female genitourinary complaints Musculoskeletal: Reports no additional musculoskeletal complaints Skin/Breast: Reports system reviewed and no additional complaints, except as docu Psychiatric: Reports no additional psychiatric complaints Endocrine: Reports no additional endocrine complaints Hematologic/Lymphatic: Reports no additional hematologic/lymphatic complaints Allergic/Immunologic: Reports no additional allergic/immunologic complaints Reports system reviewed and no additional complaints, except as documented and Reports Abnormal speech present FOR[facility]LY [facility] Past Medical History Medical History Amputation of fifth toe of right foot Chronic hyperglycemia Diabetes History of osteomyelitis HTN (hypertension) Surgical History H/O arteriovenostomy for renal dialysis Renal transplant recipient Family History Family History Other Diabetes No family history of coronary artery disease Social History Social History Household Members: None Housing: House Do you presently have visiting nurse or other home services: No Alcohol intake: never Patient Tobacco Use Status: Never used Tobacco Smoked in Last 30 Days: No Use of substances other than those prescribed or required for medical reasons: No Advance Directives Date on File: 01/21/22 service: No Current occupational status: disabled Physical Exam ED Vital Signs: Vital Signs - 24 hr 11/02/22 17:57 Temperature 98.0 F Pulse Rate 91 Respiratory Rate 16 Blood Pressure 149/101 H Pulse Oximetry 98 Oxygen Delivery Method Room Air BMI result Body Mass Index 32.5 Vital signs have been reviewed as appeared to be correct. Blood pressure normal. Heart rate normal. Respiration rate normal. Temperature normal. Oxygen saturation normal. Appearance: Alert. Oriented X3. No acute distress. Head: Normal external exam. Normocephalic. Atraumatic. No Lopez signs noted. No raccoon eyes noted Eyes: PERRLA. EOMI. Conjunctiva and sclera normal. Eyelids normal. ENT: TM's Normal. Pharynx normal. Uvula midline. Moist mucous membranes. No trismus noted. No drooling noted. No muffled voice noted. Neck: Normal inspection. Neck supple. FROM. No adenopathy. Thyroid Normal. No meningeal signs. No neck mass noted. CVS: Normal heart rate and rhythm. Heart sound normal. No murmurs noted. Pulses normal throughout. Respiratory: No respiratory distress. Painless inspiration. Breath sounds normal. No wheezes/rales/rhonchi noted. Chest nontender. No accessory muscle usage noted or decreased air movement noted. Abdomen: Soft and nontender. Bowel sounds normal in all 4 quadrants. No distention noted. No organomegaly noted. No visible injury noted. Back: No CVA tenderness. Full range of motion noted. Skin: Skin warm and dry. Normal skin color. Normal skin turgor. No rashes/lesions/lacerations noted. Extremities: Right foot: 3 x 4 cm area of ulcerative wound at the right heel surrounded with area of hardness, redness, tenderness. Neuro: Oriented X 3. Cranial nerve exam: II-XII are grossly intact No motor deficit. No sensory deficit. Reflexes normal. Course Course Course Narrative: This is a rapid medical exam. Deferred additional HPI, ROS, PE to primary provider. 57-year-old primarily Bangladeshi-speaking male past medical history significant for hypertension, diabetes, renal transplant, not on dialysis?here with complaints here with complaints with bilateral shoulder pain x 1 day, fever last evening , chills, right lower extremity redness/swelling. WIll obtain labs, EKG, UA, CXR, COVID screen VSS Reevaluation(s) Reevaluation #1: 1. Hyperglycemia with no DKA, responding to IV fluid and insulin. 2. Right leg cellulitis with no osteomyelitis patient received Zosyn/vancomycin. 3. Cellulitis with sepsis patient received 1 L of IV fluids and insulin IV. Medical Decision Making Differential Diagnosis Differential Diagnoses: The differential diagnosis associated with the presentation includes (Osteomyelitis, cellulitis, hyperglycemia, DKA, electrolyte abnormalities, severe anemia.) Admission/Observation Consideration of admission/observation: Escalation of care including admission/observation considered Consult Healthcare Provider Management of the patient was discussed with: Hospitalist (Doc) Lab Data MDM Lab Attestation statement: I reviewed the patient's lab results. 11/02/22 18:47 11/02/22 18:47 Labs: Lab Results 11/02/22 11/02/22 11/02/22 Range/Units 18:46 18:47 18:47 WBC 15.7 H (4.8-10.8) X10*3/uL RBC 5.11 (4.60-5.80) X10*6/uL Hgb 13.9 L (14.0-18.0) g/dl Hct 42.8 (42.0-52.0) % MCV 83.8 (80.0-98.0) fL MCH 27.2 (27.0-33.0) pg MCHC 32.5 (31.0-36.0) g/dl RDW 13.8 (11.0-16.0) % Plt Count 251 (160-400) X10*3/uL MPV 11.3 (9.4-12.4) fL Immature Gran % (Auto) 0.3 (0.0-0.4) % Neut % (Auto) 92.6 H (45-73) % Lymph % (Auto) 2.4 L (20-40) % [place] % (Auto) 4.6 (2-11) % Eos % (Auto) 0.0 (0-4) % Baso % (Auto) 0.1 (0-2) % Lymph # (Auto) 0.4 L (1.2-4.9) X10*3/uL [place] # (Auto) 0.7 (0.1-1.2) X10*3/uL Eos # (Auto) 0.0 (0.0-0.4) X10*3/uL Baso # (Auto) 0.0 (0.0-0.2) X10*3/uL Abs Immat Gran (auto) 0.05 H (0.00-0.03) X10*3/uL Absolute Neuts (auto) 14.6 H (2.0-8.3) x10*3/uL Absolute Nucleated RBC 0.000 (0.0-0.012) X10*3/uL Nucleated RBC % (auto) 0.0 (0.0-0.2) /100WBC Smear Tech's Comments VERIFIED VBG pH (7.32-7.43) VBG pCO2 mmHg VBG pO2 mmHg VBG HCO3 (22-26) mmol/L VBG O2 Saturation % VBG Base Excess mmol/L Sodium 131 L (135-145) mmol/L Potassium 4.3 (3.3-5.1) mmol/L Chloride 103 (96-108) mmol/L Carbon Dioxide 14 L (22-29) mmol/L Anion Gap 18 (12-20) BUN 31 H (9-16) mg/dL Creatinine 3.01 H (0.5-1.4) mg/dL Estim Creat Clear Calc 25.8 Estimated GFR 22 Random Glucose 551 H* (60-115) mg/dL Lactic Acid 2.0 (0.5-2.0) mmol/L Calcium 8.9 (8.4-10.2) mg/dL Magnesium 1.8 (1.6-2.6) mg/dL Total Bilirubin 1.2 H (0.0-1.0) mg/dL Direct Bilirubin 0.3 (0.0-0.5) mg/dL AST 11 (5-37) U/L ALT 41 H (0-40) U/L Alkaline Phosphatase 137 H (39-117) U/L Troponin I High Sens (<3.5-35.0) ng/L Total Protein 7.1 (6.5-8.0) g/dL Albumin 3.9 (3.5-5.0) g/dL Urine Color Urine Appearance Urine pH (5.0-9.0) Ur Specific [place] (1.005-1.025) Urine Protein (Neg-Trace) mg/dL Urine Glucose (UA) (Negative) mg/dL Urine Ketones (Negative) mg/dL Urine Blood (Negative) Urine Nitrite (Negative) Ur Leukocyte Esterase (Negative) Urine RBC (0-2) /HPF Urine WBC (0-5) /HPF Ur Squamous Epith Cells (0-2) /HPF Urine Bacteria (None Seen) Hyaline Casts (0-2) /LPF COVID-19 ([facility]) (Negative) COVID-19 Clin Com 11/02/22 11/02/22 11/02/22 Range/Units 18:47 18:47 18:47 WBC (4.8-10.8) X10*3/uL RBC (4.60-5.80) X10*6/uL Hgb (14.0-18.0) g/dl Hct (42.0-52.0) % MCV (80.0-98.0) fL MCH (27.0-33.0) pg MCHC (31.0-36.0) g/dl RDW (11.0-16.0) % Plt Count (160-400) X10*3/uL MPV (9.4-12.4) fL Immature Gran % (Auto) (0.0-0.4) % Neut % (Auto) (45-73) % Lymph % (Auto) (20-40) % [place] % (Auto) (2-11) % Eos % (Auto) (0-4) % Baso % (Auto) (0-2) % Lymph # (Auto) (1.2-4.9) X10*3/uL [place] # (Auto) (0.1-1.2) X10*3/uL Eos # (Auto) (0.0-0.4) X10*3/uL Baso # (Auto) (0.0-0.2) X10*3/uL Abs Immat Gran (auto) (0.00-0.03) X10*3/uL Absolute Neuts (auto) (2.0-8.3) x10*3/uL Absolute Nucleated RBC (0.0-0.012) X10*3/uL Nucleated RBC % (auto) (0.0-0.2) /100WBC Smear Tech's Comments VBG pH (7.32-7.43) VBG pCO2 mmHg VBG pO2 mmHg VBG HCO3 (22-26) mmol/L VBG O2 Saturation % VBG Base Excess mmol/L Sodium (135-145) mmol/L Potassium (3.3-5.1) mmol/L Chloride (96-108) mmol/L Carbon Dioxide (22-29) mmol/L Anion Gap (12-20) BUN (9-16) mg/dL Creatinine (0.5-1.4) mg/dL Estim Creat Clear Calc Estimated GFR Random Glucose (60-115) mg/dL Lactic Acid (0.5-2.0) mmol/L Calcium (8.4-10.2) mg/dL Magnesium (1.6-2.6) mg/dL Total Bilirubin (0.0-1.0) mg/dL Direct Bilirubin (0.0-0.5) mg/dL AST (5-37) U/L ALT (0-40) U/L Alkaline Phosphatase (39-117) U/L Troponin I High Sens 24.4 (<3.5-35.0) ng/L Total Protein (6.5-8.0) g/dL Albumin (3.5-5.0) g/dL Urine Color Yellow Urine Appearance Clear Urine pH 5.5 (5.0-9.0) Ur Specific [place] 1.025 (1.005-1.025) Urine Protein 100 (2+) H (Neg-Trace) mg/dL Urine Glucose (UA) >=1000 H (Negative) mg/dL Urine Ketones Negative (Negative) mg/dL Urine Blood Negative (Negative) Urine Nitrite Negative (Negative) Ur Leukocyte Esterase Negative (Negative) Urine RBC 0-2 (0-2) /HPF Urine WBC 0-5 (0-5) /HPF Ur Squamous Epith Cells 0-2 (0-2) /HPF Urine Bacteria None Seen (None Seen) Hyaline Casts 0-2 (0-2) /LPF COVID-19 ([facility]) Negative (Negative) COVID-19 Clin Com See Note 11/02/22 Range/Units 20:12 WBC (4.8-10.8) X10*3/uL RBC (4.60-5.80) X10*6/uL Hgb (14.0-18.0) g/dl Hct (42.0-52.0) % MCV (80.0-98.0) fL MCH (27.0-33.0) pg MCHC (31.0-36.0) g/dl RDW (11.0-16.0) % Plt Count (160-400) X10*3/uL MPV (9.4-12.4) fL Immature Gran % (Auto) (0.0-0.4) % Neut % (Auto) (45-73) % Lymph % (Auto) (20-40) % [place] % (Auto) (2-11) % Eos % (Auto) (0-4) % Baso % (Auto) (0-2) % Lymph # (Auto) (1.2-4.9) X10*3/uL [place] # (Auto) (0.1-1.2) X10*3/uL Eos # (Auto) (0.0-0.4) X10*3/uL Baso # (Auto) (0.0-0.2) X10*3/uL Abs Immat Gran (auto) (0.00-0.03) X10*3/uL Absolute Neuts (auto) (2.0-8.3) x10*3/uL Absolute Nucleated RBC (0.0-0.012) X10*3/uL Nucleated RBC % (auto) (0.0-0.2) /100WBC Smear Tech's Comments VBG pH 7.34 (7.32-7.43) VBG pCO2 28 mmHg VBG pO2 68 mmHg VBG HCO3 15 L (22-26) mmol/L VBG O2 Saturation 92.0 % VBG Base Excess -8.7 mmol/L Sodium (135-145) mmol/L Potassium (3.3-5.1) mmol/L Chloride (96-108) mmol/L Carbon Dioxide (22-29) mmol/L Anion Gap (12-20) BUN (9-16) mg/dL Creatinine (0.5-1.4) mg/dL Estim Creat Clear Calc Estimated GFR Random Glucose (60-115) mg/dL Lactic Acid (0.5-2.0) mmol/L Calcium (8.4-10.2) mg/dL Magnesium (1.6-2.6) mg/dL Total Bilirubin (0.0-1.0) mg/dL Direct Bilirubin (0.0-0.5) mg/dL AST (5-37) U/L ALT (0-40) U/L Alkaline Phosphatase (39-117) U/L Troponin I High Sens (<3.5-35.0) ng/L Total Protein (6.5-8.0) g/dL Albumin (3.5-5.0) g/dL Urine Color Urine Appearance Urine pH (5.0-9.0) Ur Specific [place] (1.005-1.025) Urine Protein (Neg-Trace) mg/dL Urine Glucose (UA) (Negative) mg/dL Urine Ketones (Negative) mg/dL Urine Blood (Negative) Urine Nitrite (Negative) Ur Leukocyte Esterase (Negative) Urine RBC (0-2) /HPF Urine WBC (0-5) /HPF Ur Squamous Epith Cells (0-2) /HPF Urine Bacteria (None Seen) Hyaline Casts (0-2) /LPF COVID-19 ([facility]) (Negative) COVID-19 Clin Com Independent Interpretation I performed an independent interpretation of an: Plain X-Ray (Right shoulder/right foot/chest:) Radiology Impression Discussion of test interpretation with radiology: I have reviewed the radiologist's reading. Discharge Plan Discharge Clinical Impression: Diabetic infection of right foot, Acute hyperglycemia Patient Disposition: Admitted As Inpatient
--- NOTE | 2022-11-02 18:00 | ECG_ITS ---
Test Reason : shoulder/leg pain Blood Pressure : / mmHG Vent. Rate : 086 BPM Atrial Rate : 086 BPM P-R Int : 118 ms QRS Dur : 094 ms QT Int : 372 ms P-R-T Axes : 026 -33 102 degrees QTc Int : 445 ms Sinus rhythm with Premature supraventricular complexes Left axis deviation T wave abnormality, consider lateral ischemia Abnormal ECG When compared with ECG of 27-OCT-2022 15:59, No significant change was found Referred By: Lou Lima Electronically Signed By:Jesus Manuel Vazquez
[2022-11-02 19:05] LABS: Appearance Urine Clear; Color Urine Yellow; Glucose Urine UA >=1000 mg/dL (Negative); Leukocyte Esterase Urine Negative (Negative); Nitrite Urine Negative (Negative); PH 5.5 (5.0-9.0); Specific Gravity - Urine 1.025 (1.005-1.025); UMIC TRIGGER UACC YES; Urine Blood Negative (Negative); Urine Ketones Negative (Negative); Urine Protein 100 (2+) mg/dL (Neg-Trace)
[2022-11-02 19:07] LABS: Bacteria Urine None Seen (None Seen); Basophils Percent Auto 0.1 % (0-2); Hematocrit 42.8 % (42.0-52.0); Hemoglobin 13.9 g/dl (14.0-18.0); Hyaline Casts Urine 0-2 /LPF (0-2); Imm Gran Abs Auto 0.05 X10*3/uL (0.00-0.03); Imm Gran Pct Auto 0.3 % (0.0-0.4); Lymphocytes Absolute Auto 0.4 X10*3/uL (1.2-4.9); Lymphocytes Percent Auto 2.4 % (20-40); MANUAL DIFF FLAG SCAN; Mean Corpuscular HGB Conc 32.5 g/dl (31.0-36.0); Mean Corpuscular Hemoglobin 27.2 pg (27.0-33.0); Mean Corpuscular Volume 83.8 fL (80.0-98.0); Mean Platelet Volume 11.3 fL (9.4-12.4); Monocytes Absolute Auto 0.7 X10*3/uL (0.1-1.2); Monocytes Percent Auto 4.6 % (2-11); Neutrophils Absolute Auto 14.6 x10*3/uL (2.0-8.3); Neutrophils Percent Auto 92.6 % (45-73); Platelet Count 251 X10*3/uL (160-400); RBC Urine 0-2 /HPF (0-2); Red Blood Count 5.11 X10*6/uL (4.60-5.80); Red Cell Distribution Width 13.8 % (11.0-16.0); SCAN SMEAR FLAG 1; Squamous Epithelial Cell Urine 0-2 /HPF (0-2); WBC Urine 0-5 /HPF (0-5); White Blood Count 15.7 X10*3/uL (4.8-10.8)
[2022-11-02 19:09] LABS: COVID-19 Test Negative (Negative); IDNOW Serial# BCCEAD1C
[2022-11-02 19:18] LABS: Troponin-I High Sensitivity 24.4 ng/L (<3.5-35.0)
[2022-11-02 19:27] LABS: SLIDE REVIEW VERIFIED
[2022-11-02 19:28] LABS: Alanine Aminotransferase 41 U/L (0-40); Albumin Level 3.9 g/dL (3.5-5.0); Alkaline Phosphatase 137 U/L (39-117); Anion Gap 18 (12-20); Aspartate Amino Transferase 11 U/L (5-37); Bilirubin Direct 0.3 mg/dL (0.0-0.5); Bilirubin Total 1.2 mg/dL (0.0-1.0); Blood Urea Nitrogen 31 mg/dL (9-16); Calcium 8.9 mg/dL (8.4-10.2); Carbon Dioxide 14 mmol/L (22-29); Chloride 103 mmol/L (96-108); Creatinine Clr Calc Pharmacy 25.8; Estimated Glomerular Filt Rate 22; Glucose Random 551 mg/dL (60-115); Magnesium 1.8 mg/dL (1.6-2.6); Potassium 4.3 mmol/L (3.3-5.1); Sodium 131 mmol/L (135-145); Total Protein 7.1 g/dL (6.5-8.0)
--- NOTE | 2022-11-02 19:59 | PC.NURSE ---
assumed care of pt aox4 no apparent distress c/o bilat shoulder and R heel/leg pain requesting coffee requested diet order from hospitalist
[2022-11-02 20:21] LABS: VBG Base Excess -8.7 mmol/L; VBG HCO3 15 mmol/L (22-26); VBG pCO2 28 mmHg; VBG pH 7.34 (7.32-7.43); VBG pO2 68 mmHg
[2022-11-02 20:25] LABS: Venous Blood Gas Refer to POC result
[2022-11-02] MEDS: 0.9 % Sodium Chloride 1,000 ML 999 ML IV ×2 (20:26→22:41)
[2022-11-02] MEDS: Piperacillin Sodium/Tazobactam 3.375 GM in 0.9 % Sodium Chloride 50 ML IV (20:26)
[2022-11-02 20:33] LABS: Acetone, serum QL Negative (Negative)
[2022-11-02 20:41] VITALS: BP 134/57; PULSE 82; RESP 19; TEMP 36.8; O2SAT 98
[2022-11-02] MEDS: vancomycin HCL 1,000 MG, vancomycin HCL 750 MG in 0.9 % Sodium Chloride 500 ML 267.5 MG IV (20:43)
[2022-11-02] MEDS: Insulin Regular, Human 100 UNIT/ML 3 ML VIAL 10 UNIT IVPUSH (20:46)
--- NOTE | 2022-11-02 20:54 | PHA.MEDREC ---
Pharmacy Consult ? Medication Reconciliation Pharmacy has completed the medication reconciliation. Pt recently discharged
--- NOTE | 2022-11-02 21:25 | PC.NURSE ---
this nurse present when provider took pictures of pt's R foot for chart
[2022-11-02 21:32] LABS: Glucose, Whole Blood 385 mg/dL (60-115)
--- NOTE | 2022-11-02 21:45 | P.HPHOSP_ITS ---
patient seen and examined, I agree with the H&P, assessment and plan below, patient will be admitted for IV antibiotics for treatment of acute cellulitis. For full H&P please see below History of Present Illness Date of Service: 11/02/22 Attending physician on admission: Gil Roach Chief Complaint: shoulder pain, right heel pain 57-year-old male with history of insulin-dependent type 2 diabetes, hypertension, CKD stage 4 s/p renal transplant on tacrolimus and chronic prednisone, diabetic polyneuropathy, history osteomyelitis s/p amputation right small toe, chronic pain syndrome, and GERD presented to the ED earlier today for evaluation of bilateral shoulder pain, worse on the right side as well as subjective fever and chills ongoing since yesterday. He states he fell yesterday while at a shopping facility onto his chest and since then has had right shoulder pain. He states the pain in the left shoulder is chronic. He is reporting limited range of motion. There is associated pleuritic sharp chest pain without radiation. Does report occasional dyspnea on exertion with occasional orthopnea that has been ongoing for about 5 months but has not worsened acutely. No chest pressure, palpitations, lightheadedness. He did have echocardiogram performed in 09/29/2022 which showed normal LV systolic function with impaired relaxation filling pattern with EF 55-60%. He also tells me that he has had a wound on the right heel that has been present for about 1 week without purulent drainage that has been quite painful with worsening erythema and warmth around the area. He states his glucose levels have also been elevated since he has not been feeling well. On arrival, patient afebrile, mild tachycardia of 91, vitals otherwise within normal limits. There is a leukocytosis of 15.7. Renal function baseline with creatinine of 3.01, BUN 31, sodium 131, potassium 4.3, chloride 103, CO2 14, HGB 18. Glucose on arrival 551. Urinalysis unremarkable except for 2+ protein and significant glucose. X- ray of the right foot showing partial amputation 5th digit but no acute fracture dislocation. CXR negative for acute cardiopulmonary disease. Bilateral shoulders negative for acute fracture dislocation or subluxation. There are mild degenerative changes of the right AC joint and glenohumeral joint and a small bone fragment inferior to the glenoid left shoulder likely old injury or loose body, unchanged. In the ED, treated with IV NS, 10 units IV regular insulin, vancomycin, and zosyn. Review of Systems Review of Systems: General: No malaise, unintentional weight loss. +subjective fevers HEENT: No blurred vision, diplopia. No sore throat, nasal congestion, rhinorrhea, sinus pain, ear pain Cardiovascular: No chest pain, palpitations, or leg edema Respiratory: +pleuritic CP. +intermittent orthopnea, connor. No wheezing, cough GI: No abdominal pain, nausea, vomiting, diarrhea, constipation, melena, hematochezia : No dysuria, hematuria, increased urinary frequency, decreased urinary output MSK: No myalgia, back pain. +bilateral shoulder pain, decreased ROM. +right heel pain Neuro: No headaches, weakness, paresthesias Skin: No rashes or lesions. +superficial ulceration right heel with redness, warmth PMFSH Medical History Amputation of fifth toe of right foot Chronic hyperglycemia Diabetes History of osteomyelitis HTN (hypertension) Family History Other Diabetes No family history of coronary artery disease Surgical History H/O arteriovenostomy for renal dialysis Renal transplant recipient Social History Household Members: None Housing: House Do you presently have visiting nurse or other home services: No Alcohol intake: never Patient Tobacco Use Status: Never used Tobacco Smoked in Last 30 Days: No Use of substances other than those prescribed or required for medical reasons: No Advance Directives: Yes Advance Directives on File: Yes Advance Directives Date on File: 01/21/22 Nutrition Risks: Acute nausea or vomiting x1 week service: No Current occupational status: disabled Meds Allergies Allergy/AdvReac Type Severity Reaction Status Date / Time hydromorphone [From DILAUDID] Allergy Mild ITCHINESS Verified 11/02/22 17:57 diphenhydramine Allergy Unknown UNK Verified 11/02/22 17:57 [From BENADRYL] regadenoson [From Lexiscan] AdvReac Mild Itching Verified 11/02/22 17:57 Active Medications: Current Medications Acetaminophen (Acetaminophen 325 Mg Tablet) 650 mg PO Q6H PRN PRN Reason: Pain, Mild (Pain Scale 1-3) Hydrocodone Bitart/Acetaminophen (Hydrocodone Bit/Acetam 10/325 Tablet) 1 tab PO Q6H PRN PRN Reason: severe pain Albuterol Sulfate (Albuterol Sulfate (0.083%) 2.5 Mg/3 Ml Vial.[place]) 2.5 mg INHALE TID PRN PRN Reason: Respiratory Distress Albuterol Sulfate (Albuterol Sulfate 90 Mcg 8 Gm Inhaler) 2 puff INHALE Q4H PRN PRN Reason: wheezing Amlodipine Besylate (Amlodipine Besylate 5 Mg Tablet) 5 mg PO DAILY PENDING SALE TO [facility]; Protocol Aspirin (Aspirin Enteric Coated 81 Mg Tablet.) 81 mg PO DAILY PENDING SALE TO [facility] Atorvastatin Calcium (Atorvastatin Calcium 10 Mg Tablet) 10 mg PO DAILY PENDING SALE TO [facility] Docusate Sodium (Docusate Sodium 100 Mg Capsule) 100 mg PO DAILY PRN PRN Reason: Constipation Duloxetine HCl (Duloxetine Hcl 20 Mg Capsule.) 20 mg PO DAILY PENDING SALE TO [facility] Enoxaparin Sodium (Enoxaparin Sodium 30 Mg/0.3 Ml Syringe) 30 mg SUBCUT Q24H PENDING SALE TO [facility] Famotidine (Famotidine 20 Mg Tablet) 40 mg PO BEDTIME PENDING SALE TO [facility] Gabapentin (Gabapentin 100 Mg Capsule) 100 mg PO BEDTIME PENDING SALE TO [facility] Glucose (Glucose Gel 15 Gm Gel..Gram.) 15 gm PO Q15M PRN; Protocol PRN Reason: per Hypoglycemia Standing Ord. Hydroxyzine HCl (Hydroxyzine Hcl 10 Mg Tablet) 10 mg PO BID PENDING SALE TO [facility] Dextrose (D10) 250 mls @ 750 mls/hr IV Q15M PRN; Protocol PRN Reason: per Hypoglycemia Standing Ord. Cefepime HCl 1 gm/ Sodium (Chloride) 50 mls @ 100 mls/hr IV Q12H PENDING SALE TO [facility] Sodium Chloride (Ns) 1,000 mls @ 999 mls/hr IV .Q1H1M PENDING SALE TO [facility] Stop: 11/02/22 22:45 Insulin Glargine (Insulin Glargine,Hum.Rec.Anlog 100 Unit/Ml 10 Ml Vial) 36 unit SUBCUT BEDTIME PENDING SALE TO [facility] Insulin Human Lispro (Insulin Lispro 100 Unit/Ml 3 Ml Vial) 0 unit SUBCUT QIDACHS PENDING SALE TO [facility]; Protocol Loperamide HCl (Loperamide Hcl 2 Mg Capsule) 2 mg PO BID PRN PRN Reason: diarrhea Metoprolol Succinate (Metoprolol Succinate Er 25 Mg Tab.Er.24h) 25 mg PO DAILY PENDING SALE TO [facility]; Protocol Mupirocin (Mupirocin 1 Gm Oint...G.) gm TOPICAL TID PENDING SALE TO [facility]; Protocol Non-Formulary Medication (Calcitriol) 0.5 mcg PO DAILY PENDING SALE TO [facility] Non-Formulary Medication (Cholecalciferol (Vitamin D3)) 1 cap PO SA@1000 PENDING SALE TO [facility] Non-Formulary Medication (Esomeprazole Magnesium) 40 mg PO DAILY@0630 PENDING SALE TO [facility] Non-Formulary Medication (Lidocaine) 1 patch TOPICAL DAILY PENDING SALE TO [facility] Ondansetron HCl (Ondansetron Hcl 4 Mg/2 Ml Vial) 4 mg IVPUSH Q8H PRN PRN Reason: Nausea and Vomiting Oxycodone HCl (Oxycodone Hcl Immed Release 5 Mg Tablet) 5 mg PO Q6H PRN PRN Reason: Pain, Severe (Pain Scale 7-10) Oxycodone HCl (Oxycodone Hcl Immed Release 5 Mg Tablet) 5 mg PO BID PRN PRN Reason: Pain, Moderate(Pain Scale 4-6) Pharmacy Consult (Consult Rx Vancomycin Dosing) 1 each MISCELLANE DAILY PRN PRN Reason: Consult order Prednisone (Prednisone 10 Mg Tablet) 10 mg PO DAILY PENDING SALE TO [facility] Sodium Chloride (0.9 % Sodium Chloride Flush 3 Ml Syringe) 3 ml IVFLUSH QSHIFT PENDING SALE TO [facility] Tacrolimus (Tacrolimus 1 Mg Capsule) 2 mg PO BID PENDING SALE TO [facility] Tramadol HCl (Tramadol Hcl 50 Mg Tablet) 50 mg PO Q6H PRN PRN Reason: moderate pain Trazodone HCl (Trazodone Hcl 25 Mg Halftab) 25 mg PO BEDTIME PENDING SALE TO [facility] Home Medications Medication Instructions Recorded Confirmed Last Taken Type albuterol sulfate 2.5 mg/3 mL 1 amp inhalation TID PRN 08/26/21 11/02/22 Unknown History (0.083 %) solution for nebulization Respiratory Distress albuterol sulfate 90 mcg/actuation 2 puff PO Q4H PRN wheezing 08/26/21 11/02/22 Unknown History aerosol inhaler (ProAir HFA) amlodipine 5 mg tablet 5 mg PO DAILY 08/26/21 11/02/22 12/11/21 History aspirin 81 mg tablet,delayed 81 mg PO DAILY 08/26/21 11/02/22 12/11/21 History release atorvastatin 10 mg tablet 10 mg PO DAILY 08/26/21 11/02/22 12/11/21 History calcitriol 0.5 mcg capsule 0.5 mcg PO DAILY 08/26/21 11/02/22 12/11/21 History cholecalciferol (vitamin D3) 1,250 1 cap PO SA@1000 08/26/21 11/02/22 Unknown History mcg (50,000 unit) capsule duloxetine 20 mg capsule,delayed 20 mg PO DAILY 08/26/21 11/02/22 12/11/21 History release insulin glargine 100 unit/mL (3 48 unit subcut BEDTIME 08/26/21 11/02/22 12/10/21 History mL) subcutaneous pen (Lantus Solostar U-100 Insulin) insulin lispro 100 unit/mL 5 unit subcut TIDWM 08/26/21 11/02/22 Unknown History subcutaneous pen (Humalog KwikPen (U-100) Insulin) mupirocin 2 % topical ointment 1 appl topical TID 08/26/21 11/02/22 Unknown History tacrolimus 1 mg capsule, 2 mg PO BID 08/26/21 11/02/22 12/11/21 History immediate-release tramadol 50 mg tablet 50 mg PO Q6H PRN moderate pain 08/26/21 11/02/22 Unknown History famotidine 40 mg tablet 40 mg PO BEDTIME 12/11/21 11/02/22 12/10/21 History gabapentin 100 mg capsule 100 mg PO BEDTIME 12/11/21 11/02/22 12/10/21 History hydroxyzine HCl 10 mg tablet 10 mg PO BID 09/24/22 11/02/22 Unknown History loperamide 2 mg capsule 2 mg PO BID PRN diarrhea 09/24/22 11/02/22 Unknown History trazodone 50 mg tablet 25 mg PO BEDTIME 09/24/22 11/02/22 Unknown History acetaminophen 500 mg tablet 500 mg PO Q8H PRN Pain 10/20/22 11/02/22 Unknown History esomeprazole magnesium 40 mg 40 mg PO DAILY@0630 10/20/22 11/02/22 Unknown History capsule,delayed release miconazole nitrate 2 % topical 1 appl topical DAILY PRN Itching 10/20/22 11/02/22 Unknown History powder (Anti-Fungal) prednisone 10 mg tablet 10 mg PO DAILY 10/20/22 11/02/22 Unknown History hydrocodone 10 mg-acetaminophen 1 tab PO Q6H PRN severe pain 11/02/22 11/02/22 Unknown History 325 mg tablet lidocaine 5 % topical patch 1 patch topical DAILY 11/02/22 11/02/22 Unknown History Physical Exam Vital Signs and Narrative: Vital Signs: Last Vital Signs Temp 98.2 F 11/02/22 20:41 Pulse 82 11/02/22 20:41 Resp 19 11/02/22 20:41 BP 134/57 L 11/02/22 20:41 Pulse Ox 98 11/02/22 20:41 O2 Del Method Room Air 11/02/22 20:41 BMI result Body Mass Index 32.5 Constitutional - Awake and Alert, No apparent distress Eyes - PERRLA, EOMI Cardiovascular - S1S2, RRR, No edema Respiratory - Normal lung expansion, Normal respiratory effort, No respiratory distress, CTA bilaterally Chest-reproducible tenderness to palpation across the anterior chest Gastrointestinal - NT / ND; +BS; No rebound or guarding Extremities - no calf tenderness bilaterally, no swelling Musculoskeletal - Normal inspection, tenderness of bilateral AC joint into bilateral anterior deltoid. Pain with external rotation and extension Skin - Warm/Dry. Superficial linear ulceration medial right heel without purulent drainage with surrounding erythema and warmth Neurological - Alert & oriented x3, CN II-XII in tact, 5/5 strength BUE and BLE Psychological - Appropriate affect Results Labs 11/02/22 18:47 11/02/22 18:47 Labs: Laboratory Results - last 24 hr 11/02/22 11/02/22 11/02/22 18:46 18:47 18:47 MCV 83.8 MCH 27.2 MCHC 32.5 RDW 13.8 Plt Count 251 MPV 11.3 Immature Gran % (Auto) 0.3 Neut % (Auto) 92.6 H Lymph % (Auto) 2.4 L [place] % (Auto) 4.6 Eos % (Auto) 0.0 Baso % (Auto) 0.1 Lymph # (Auto) 0.4 L [place] # (Auto) 0.7 Eos # (Auto) 0.0 Baso # (Auto) 0.0 Abs Immat Gran (auto) 0.05 H Absolute Neuts (auto) 14.6 H Absolute Nucleated RBC 0.000 Nucleated RBC % (auto) 0.0 Smear Tech's Comments VERIFIED VBG pH VBG pCO2 VBG pO2 VBG HCO3 VBG O2 Saturation VBG Base Excess Anion Gap 18 Estim Creat Clear Calc 25.8 Estimated GFR 22 POC Glucose Random Glucose 551 H* Lactic Acid 2.0 Calcium 8.9 Magnesium 1.8 Total Bilirubin 1.2 H Direct Bilirubin 0.3 AST 11 ALT 41 H Alkaline Phosphatase 137 H Troponin I High Sens Total Protein 7.1 Albumin 3.9 Urine Color Urine Appearance Urine pH Ur Specific [place] Urine Protein Urine Glucose (UA) Urine Ketones Urine Blood Urine Nitrite Ur Leukocyte Esterase Urine RBC Urine WBC Ur Squamous Epith Cells Urine Bacteria Hyaline Casts Acetone, Qual COVID-19 ([facility]) COVID-Flipswap 11/02/22 11/02/22 11/02/22 18:47 18:47 18:47 MCV MCH MCHC RDW Plt Count MPV Immature Gran % (Auto) Neut % (Auto) Lymph % (Auto) [place] % (Auto) Eos % (Auto) Baso % (Auto) Lymph # (Auto) [place] # (Auto) Eos # (Auto) Baso # (Auto) Abs Immat Gran (auto) Absolute Neuts (auto) Absolute Nucleated RBC Nucleated RBC % (auto) Smear Tech's Comments VBG pH VBG pCO2 VBG pO2 VBG HCO3 VBG O2 Saturation VBG Base Excess Anion Gap Estim Creat Clear Calc Estimated GFR POC Glucose Random Glucose Lactic Acid Calcium Magnesium Total Bilirubin Direct Bilirubin AST ALT Alkaline Phosphatase Troponin I High Sens 24.4 Total Protein Albumin Urine Color Yellow Urine Appearance Clear Urine pH 5.5 Ur Specific [place] 1.025 Urine Protein 100 (2+) H Urine Glucose (UA) >=1000 H Urine Ketones Negative Urine Blood Negative Urine Nitrite Negative Ur Leukocyte Esterase Negative Urine RBC 0-2 Urine WBC 0-5 Ur Squamous Epith Cells 0-2 Urine Bacteria None Seen Hyaline Casts 0-2 Acetone, Qual COVID-19 ([facility]) Negative COVID-Flipswap See Note 11/02/22 11/02/22 11/02/22 20:06 20:12 21:21 MCV MCH MCHC RDW Plt Count MPV Immature Gran % (Auto) Neut % (Auto) Lymph % (Auto) [place] % (Auto) Eos % (Auto) Baso % (Auto) Lymph # (Auto) [place] # (Auto) Eos # (Auto) Baso # (Auto) Abs Immat Gran (auto) Absolute Neuts (auto) Absolute Nucleated RBC Nucleated RBC % (auto) Smear Tech's Comments VBG pH 7.34 VBG pCO2 28 VBG pO2 68 VBG HCO3 15 L VBG O2 Saturation 92.0 VBG Base Excess -8.7 Anion Gap Estim Creat Clear Calc Estimated GFR POC Glucose 385 H* Random Glucose Lactic Acid Calcium Magnesium Total Bilirubin Direct Bilirubin AST ALT Alkaline Phosphatase Troponin I High Sens Total Protein Albumin Urine Color Urine Appearance Urine pH Ur Specific [place] Urine Protein Urine Glucose (UA) Urine Ketones Urine Blood Urine Nitrite Ur Leukocyte Esterase Urine RBC Urine WBC Ur Squamous Epith Cells Urine Bacteria Hyaline Casts Acetone, Qual Negative COVID-19 ([facility]) COVID-19 Clin Com Imaging Radiologist's Impressions: Impressions Chest X-Ray 11/02/22 18:16 IMPRESSION: No evidence for acute disease in the chest. Foot X-Ray 11/02/22 19:40 IMPRESSION: 1. Mild degenerative changes right AC joint and glenohumeral joint. No visible acute fracture, dislocation or subluxation seen. 2. Small bone fragment inferior to glenoid left shoulder likely old injury or loose body. It is unchanged to last left shoulder exam 11/07/2022 3. Partial amputation fifth digit beyond the proximal end proximal phalanx, right foot. No acute fracture or dislocation right foot. 4. There is extensive vascular calcification right foot. Shoulder X-Ray 11/02/22 19:40 IMPRESSION: 1. Mild degenerative changes right AC joint and glenohumeral joint. No visible acute fracture, dislocation or subluxation seen. 2. Small bone fragment inferior to glenoid left shoulder likely old injury or loose body. It is unchanged to last left shoulder exam 11/07/2022 3. Partial amputation fifth digit beyond the proximal end proximal phalanx, right foot. No acute fracture or dislocation right foot. 4. There is extensive vascular calcification right foot. Shoulder X-Ray 11/02/22 19:40 IMPRESSION: 1. Mild degenerative changes right AC joint and glenohumeral joint. No visible acute fracture, dislocation or subluxation seen. 2. Small bone fragment inferior to glenoid left shoulder likely old injury or loose body. It is unchanged to last left shoulder exam 11/07/2022 3. Partial amputation fifth digit beyond the proximal end proximal phalanx, right foot. No acute fracture or dislocation right foot. 4. There is extensive vascular calcification right foot. Assessment and Plan (1) Cellulitis of right foot: Status: Acute Plan 57-year-old male with history of insulin-dependent type 2 diabetes, hypertensio n, CKD stage 4 s/p renal transplant on tacrolimus and chronic prednisone, diabetic polyneuropathy, history osteomyelitis s/p amputation right small toe, chronic pain syndrome, and GERD admitted for acute cellulitis of the right foot with sepsis in immunocompromised patient. # acute cellulitis right foot with sepsis -WBC 15.9, tachycardic to 91. No lactic acidosis or other acute end-organ damage -XR negative for osteo. ESR and CRP pending -IV vancomycin and cefepime (renally adjusted) -Follow CBC, cultures #Superficial ulceration right heel- likely related to uncontrolled diabetes -Nursing ound care consult #Mechanical fall -no head injury -no acute fracture, dislocation, or subluxation in bilateral shoulders. Recommend outpatient follow-up -CXR negative for fracture. Chest pain is reproducible to palpation -continue home pain meds # insulin-dependent type 2 diabetes with hyperglycemia -on arrival, glucose 551. No DKA. AG closed -Given 10 units regular insulin in ED and 1L IV NS. Addl 1L IV NS ordered -Continue lantus -humalog on sliding scale -POC glucose -Diabetic diet #Pseudohyponatremia -r/t hyperglycemia -Follow POC, BMP #HTN- reasonably controlled -cotninue home meds #CKD stage 4 s/p nephrectomy -Renal function baseline -Continue tacrolimus and prednisone #Diabetic polyneuropathy -continue duloxetine, gabapentin # chronic pain syndrome -continue home meds DVT prophylaxis-Lovenox Full code Patient requires inpatient stay at least 2 midnights for management of acute cellulitis right foot with sepsis in immunocompromised patient requiring IV antibiotics Time Spent With Patient Time: Total time managing care of this patient today ____ minutes. Quality Stroke Does the patient have a stroke diagnosis?: No VTE Prior VTE?: No VTE Risk Level:: Medical - moderate - high VTE Device Contraindication: Treatment Not Indicated VTE Drug Contraindication: N/A - Med Ordered
--- NOTE | 2022-11-02 21:45 | PC.NURSE ---
med rec completed by pharmacy confirmed by Josemanuel (pharm) over the phone
--- NOTE | 2022-11-02 22:06 | PHA.PROG ---
Admission Date/Time: November 02, 2022 21:36 Indication: skin Weight in k.3 kg Adjusted body weight in Kg: [place] body weight in Kg: Obesity Dosing Indication % IBW: Serum Creatinine - Last 168 Hours 11/02/22 18:47 Creatinine 3.01 H Estimated CrCl and GFR - Last 168 Hours 11/02/22 18:47 Estim Creat Clear Calc 25.8 Estimated GFR 22 Vancomycin Loading Dose: 1750 mg x 1 Current Vancomycin Dosing Regimen: 500mg Q24H Vancomycin Monitoring using AUC goal of 400 - 600 range with trough as surrogate marker: 464mg/L Date and Time for next Vancomycin Level to be drawn: 11/04/22 @1900 Pharmacist Comments on Vancomycin Plan: Obesity model being used; getting level after 2 doses due to poor renal function. Predicted trough of 15.8mg/L. Will continue to monitor Vancomycin dosing will take advantage of [employer] as a clinical decision support tool that uses Bayesian modeling to calculate individual patient's pharmacokinetic parameters and forecast the patient's drug concentration time course with the target goal AUC 24 range of 400 - 600 mg/L/hr.
[2022-11-02 22:19] LABS: C Reactive Protein 4.11 mg/dL (< or = 0.50)
[2022-11-02] MEDS: Enoxaparin Sodium 30 MG/0.3 ML SYRINGE SUBCUT (22:29)
[2022-11-02] MEDS: Famotidine 20 MG TABLET 40 MG PO (22:40)
[2022-11-02] MEDS: hydrOXYzine HCL 10 MG TABLET PO (22:40)
[2022-11-02] MEDS: traZODone HCL 25 MG HALFTAB PO (22:41)
[2022-11-02] MEDS: Gabapentin 100 MG CAPSULE PO (22:42)
--- NOTE | 2022-11-02 22:50 | PC.NURSE ---
verifying with nursing sup on med availability- tacrolimus
[2022-11-02] MEDS: Insulin Glargine,Hum.rec.anlog 100 UNIT/ML 10 ML VIAL 36 UNIT SUBCUT (22:55)
[2022-11-03 00:05] LABS: Glucose, Whole Blood 358 mg/dL (60-115)
[2022-11-03 00:07] VITALS: BP 173/66; PULSE 79; RESP 16; TEMP 36.7; O2SAT 96
[2022-11-03] MEDS: 0.9 % Sodium Chloride Flush 3 ML SYRINGE IVFLUSH ×4 (00:29→20:21)
[2022-11-03 00:49] LABS: Glucose, Whole Blood 368 mg/dL (60-115)
[2022-11-03] MEDS: Insulin Lispro 100 UNIT/ML 3 ML VIAL 15 UNIT SUBCUT (01:12)
--- NOTE | 2022-11-03 01:14 | PC.NURSE ---
report given to PATRIA Maravilla [id number] no apparent distress 1 L NS completed no IV fluids currently running
[2022-11-03 01:52] VITALS: BMI 32.0
[2022-11-03 02:15] VITALS: BP 148/72; PULSE 65; RESP 18; TEMP 36.4; O2SAT 97
[2022-11-03 02:25] LABS: Glucose, Whole Blood 343 mg/dL (60-115)
[2022-11-03] MEDS: cefEPime HCl 1 GM in 0.9 % Sodium Chloride 50 ML IV ×2 (02:36→14:44)
[2022-11-03 04:00] VITALS: BP 125/57; PULSE 70; RESP 18; TEMP 36.1; O2SAT 97
[2022-11-03 06:55] LABS: Creatinine Clr Calc Pharmacy 35.8; Estimated Glomerular Filt Rate 32
[2022-11-03 07:20] VITALS: BP 135/72; PULSE 68; RESP 18; TEMP 36.2; O2SAT 97
[2022-11-03 07:50] LABS: Glucose, Whole Blood 114 mg/dL (60-115)
[2022-11-03] MEDS: traMADoL HCL 50 MG TABLET PO (08:29)
[2022-11-03] MEDS: Tacrolimus 1 MG CAPSULE 2 MG PO ×2 (08:29→20:21)
[2022-11-03] MEDS: Aspirin Enteric Coated 81 MG TABLET.DR PO (08:29)
[2022-11-03] MEDS: predniSONE 10 MG TABLET PO (08:29)
[2022-11-03] MEDS: hydrOXYzine HCL 10 MG TABLET PO ×2 (08:31→20:21)
[2022-11-03] MEDS: DULoxetine HCl 20 MG CAPSULE.DR PO (08:31)
[2022-11-03] MEDS: Metoprolol Succinate ER 25 MG TAB.ER.24H PO (08:31)
[2022-11-03] MEDS: calcitrioL 0.25 MCG CAPSULE 0.5 MCG PO (08:31)
[2022-11-03] MEDS: Lidocaine 4 % Patch ADH..PATCH 1 PATCH TRANSDERMA (08:31)
[2022-11-03] MEDS: Atorvastatin Calcium 10 MG TABLET PO (08:31)
[2022-11-03] MEDS: amLODIPine Besylate 5 MG TABLET PO (08:31)
--- NOTE | 2022-11-03 08:43 | HE.PHANOTE ---
vancomycin dosing addendum Patients dose of 500 mg Q24H is now showing subtherapeutic due to improved renal function. Increased dose to 750mg Q24H. Next draw remains at 11/04 @1900. Predicted AUC 519 mg/L/hr
--- NOTE | 2022-11-03 09:19 | HO.PM.IMPN ---
Subjective Subjective Date of Service: 11/03/22 Interval History: right heel pain, bilateral shoulder pain Physical Exam Vital Signs: Vital Signs: Last Vital Signs Temp 97.1 F 11/03/22 07:20 Pulse 68 11/03/22 07:20 Resp 18 11/03/22 07:20 BP 135/72 11/03/22 07:20 Pulse Ox 97 11/03/22 07:20 O2 Del Method Room Air 11/03/22 07:20 BMI result Body Mass Index 32.0 right heel erythema, tenderness, Objective Data Active Medications Acetaminophen (Acetaminophen 325 Mg Tablet) 650 mg PO Q6H PRN PRN Reason: Pain, Mild (Pain Scale 1-3) Hydrocodone Bitart/Acetaminophen (Hydrocodone Bit/Acetam 10/325 Tablet) 1 tab PO Q6H PRN PRN Reason: severe pain Albuterol Sulfate (Albuterol Sulfate (0.083%) 2.5 Mg/3 Ml Vial.[place]) 2.5 mg INHALE TID PRN PRN Reason: Respiratory Distress Albuterol Sulfate (Albuterol Sulfate 90 Mcg 8 Gm Inhaler) 2 puff INHALE Q4H PRN PRN Reason: wheezing Amlodipine Besylate (Amlodipine Besylate 5 Mg Tablet) 5 mg PO DAILY [facility]; Protocol Last Admin: 11/03/22 08:31 Dose: 5 mg Documented By: COTEMA Aspirin (Aspirin Enteric Coated 81 Mg Tablet.) 81 mg PO DAILY [facility] Last Admin: 11/03/22 08:29 Dose: 81 mg Documented By: COTEMA Atorvastatin Calcium (Atorvastatin Calcium 10 Mg Tablet) 10 mg PO DAILY [facility] Last Admin: 11/03/22 08:31 Dose: 10 mg Documented By: COTEMA Calcitriol (Calcitriol 0.25 Mcg Capsule) 0.5 mcg PO DAILY [facility] Last Admin: 11/03/22 08:31 Dose: 0.5 mcg Documented By: COTEMA Docusate Sodium (Docusate Sodium 100 Mg Capsule) 100 mg PO DAILY PRN PRN Reason: Constipation Duloxetine HCl (Duloxetine Hcl 20 Mg Capsule.) 20 mg PO DAILY [facility] Last Admin: 11/03/22 08:31 Dose: 20 mg Documented By: COTEMA Enoxaparin Sodium (Enoxaparin Sodium 30 Mg/0.3 Ml Syringe) 30 mg SUBCUT Q24H [facility] Last Admin: 11/02/22 22:29 Dose: 30 mg Documented By: INDIGO Famotidine (Famotidine 20 Mg Tablet) 40 mg PO BEDTIME [facility] Last Admin: 11/02/22 22:40 Dose: 40 mg Documented By: INDIGO Gabapentin (Gabapentin 100 Mg Capsule) 100 mg PO BEDTIME [facility] Last Admin: 11/02/22 22:42 Dose: 100 mg Documented By: INDIGO Glucose (Glucose Gel 15 Gm Gel..Gram.) 15 gm PO Q15M PRN; Protocol PRN Reason: per Hypoglycemia Standing Ord. Hydroxyzine HCl (Hydroxyzine Hcl 10 Mg Tablet) 10 mg PO BID [facility] Last Admin: 11/03/22 08:31 Dose: 10 mg Documented By: EMILIA Dextrose (D10) 250 mls @ 750 mls/hr IV Q15M PRN; Protocol PRN Reason: per Hypoglycemia Standing Ord. Cefepime HCl 1 gm/ Sodium (Chloride) 50 mls @ 100 mls/hr IV Q12H [facility] Last Infusion: 11/03/22 03:36 Dose: 0 mls/hr Documented By: JUAN Vancomycin HCl 750 mg/ Sodium (Chloride) 265 mls @ 265 mls/hr IV Q24H [facility] Insulin Glargine (Insulin Glargine,Hum.Rec.Anlog 100 Unit/Ml 10 Ml Vial) 36 unit SUBCUT BEDTIME [facility] Last Admin: 11/02/22 22:55 Dose: 36 unit Documented By: INDIGO Insulin Human Lispro (Insulin Lispro 100 Unit/Ml 3 Ml Vial) 0 unit SUBCUT QIDACHS [facility]; Protocol Last Admin: 11/03/22 07:57 Dose: Not Given Documented By: EMILIA Non-Admin Reason: No Insulin Coverage Lidocaine (Lidocaine 4 % Patch Adh..Patch) 1 patch TRANSDERMA DAILY [facility] Last Admin: 11/03/22 08:31 Dose: 1 patch Documented By: EMILIA Loperamide HCl (Loperamide Hcl 2 Mg Capsule) 2 mg PO BID PRN PRN Reason: diarrhea Metoprolol Succinate (Metoprolol Succinate Er 25 Mg Tab.Er.24h) 25 mg PO DAILY [facility]; Protocol Last Admin: 11/03/22 08:31 Dose: 25 mg Documented By: HO.COTEMA Omeprazole (Omeprazole 20 Mg Capsule.Dr) 20 mg PO DAILY@0630 [facility] Last Admin: 11/03/22 08:25 Dose: Not Given Documented By: COTEMA Non-Admin Reason: Previously Administered Ondansetron HCl (Ondansetron Hcl 4 Mg/2 Ml Vial) 4 mg IVPUSH Q8H PRN PRN Reason: Nausea and Vomiting Oxycodone HCl (Oxycodone Hcl Immed Release 5 Mg Tablet) 5 mg PO Q6H PRN PRN Reason: Pain, Severe (Pain Scale 7-10) Oxycodone HCl (Oxycodone Hcl Immed Release 5 Mg Tablet) 5 mg PO BID PRN PRN Reason: Pain, Moderate(Pain Scale 4-6) Pharmacy Consult (Consult Rx Vancomycin Dosing) 1 each MISCELLANE DAILY PRN PRN Reason: Consult order Pharmacy Consult (Consult Rx Perform Med Rec) 1 each MISCELLANE ONCE PRN PRN Reason: Consult order Prednisone (Prednisone 10 Mg Tablet) 10 mg PO DAILY [facility] Last Admin: 11/03/22 08:29 Dose: 10 mg Documented By: COTEMA Sodium Chloride (0.9 % Sodium Chloride Flush 3 Ml Syringe) 3 ml IVFLUSH QSHIFT [facility] Last Admin: 11/03/22 08:31 Dose: 3 ml Documented By: COTEMA Tacrolimus (Tacrolimus 1 Mg Capsule) 2 mg PO BID [facility] Last Admin: 11/03/22 08:29 Dose: 2 mg Documented By: COTEMA Tramadol HCl (Tramadol Hcl 50 Mg Tablet) 50 mg PO Q6H PRN PRN Reason: moderate pain Last Admin: 11/03/22 08:29 Dose: 50 mg Documented By: COTEMA Trazodone HCl (Trazodone Hcl 25 Mg Halftab) 25 mg PO BEDTIME [facility] Last Admin: 11/02/22 22:41 Dose: 25 mg Documented By: MACHUCV Labs 11/02/22 18:47 11/03/22 05:06 Labs: Laboratory Results - last 24 hr 11/02/22 11/02/22 11/02/22 18:46 18:47 18:47 MCV 83.8 MCH 27.2 MCHC 32.5 RDW 13.8 Plt Count 251 MPV 11.3 Immature Gran % (Auto) 0.3 Neut % (Auto) 92.6 H Lymph % (Auto) 2.4 L [place] % (Auto) 4.6 Eos % (Auto) 0.0 Baso % (Auto) 0.1 Lymph # (Auto) 0.4 L [place] # (Auto) 0.7 Eos # (Auto) 0.0 Baso # (Auto) 0.0 Abs Immat Gran (auto) 0.05 H Absolute Neuts (auto) 14.6 H Absolute Nucleated RBC 0.000 Nucleated RBC % (auto) 0.0 Smear Tech's Comments VERIFIED VBG pH VBG pCO2 VBG pO2 VBG HCO3 VBG O2 Saturation VBG Base Excess Anion Gap 18 Estim Creat Clear Calc 25.8 Estimated GFR 22 POC Glucose Random Glucose 551 H* Lactic Acid 2.0 Calcium 8.9 Magnesium 1.8 Total Bilirubin 1.2 H Direct Bilirubin 0.3 AST 11 ALT 41 H Alkaline Phosphatase 137 H Troponin I High Sens C-Reactive Protein 4.11 H Total Protein 7.1 Albumin 3.9 Urine Color Urine Appearance Urine pH Ur Specific [place] Urine Protein Urine Glucose (UA) Urine Ketones Urine Blood Urine Nitrite Ur Leukocyte Esterase Urine RBC Urine WBC Ur Squamous Epith Cells Urine Bacteria Hyaline Casts Acetone, Qual COVID-19 ([facility]) COVID-19 Clin Com 11/02/22 11/02/22 11/02/22 18:47 18:47 18:47 MCV MCH MCHC RDW Plt Count MPV Immature Gran % (Auto) Neut % (Auto) Lymph % (Auto) [place] % (Auto) Eos % (Auto) Baso % (Auto) Lymph # (Auto) [place] # (Auto) Eos # (Auto) Baso # (Auto) Abs Immat Gran (auto) Absolute Neuts (auto) Absolute Nucleated RBC Nucleated RBC % (auto) Smear Tech's Comments VBG pH VBG pCO2 VBG pO2 VBG HCO3 VBG O2 Saturation VBG Base Excess Anion Gap Estim Creat Clear Calc Estimated GFR POC Glucose Random Glucose Lactic Acid Calcium Magnesium Total Bilirubin Direct Bilirubin AST ALT Alkaline Phosphatase Troponin I High Sens 24.4 C-Reactive Protein Total Protein Albumin Urine Color Yellow Urine Appearance Clear Urine pH 5.5 Ur Specific [place] 1.025 Urine Protein 100 (2+) H Urine Glucose (UA) >=1000 H Urine Ketones Negative Urine Blood Negative Urine Nitrite Negative Ur Leukocyte Esterase Negative Urine RBC 0-2 Urine WBC 0-5 Ur Squamous Epith Cells 0-2 Urine Bacteria None Seen Hyaline Casts 0-2 Acetone, Qual COVID-19 ([facility]) Negative COVID-19 Clin Com See Note 11/02/22 11/02/22 11/02/22 20:06 20:12 21:21 MCV MCH MCHC RDW Plt Count MPV Immature Gran % (Auto) Neut % (Auto) Lymph % (Auto) [place] % (Auto) Eos % (Auto) Baso % (Auto) Lymph # (Auto) [place] # (Auto) Eos # (Auto) Baso # (Auto) Abs Immat Gran (auto) Absolute Neuts (auto) Absolute Nucleated RBC Nucleated RBC % (auto) Smear Tech's Comments VBG pH 7.34 VBG pCO2 28 VBG pO2 68 VBG HCO3 15 L VBG O2 Saturation 92.0 VBG Base Excess -8.7 Anion Gap Estim Creat Clear Calc Estimated GFR POC Glucose 385 H* Random Glucose Lactic Acid Calcium Magnesium Total Bilirubin Direct Bilirubin AST ALT Alkaline Phosphatase Troponin I High Sens C-Reactive Protein Total Protein Albumin Urine Color Urine Appearance Urine pH Ur Specific [place] Urine Protein Urine Glucose (UA) Urine Ketones Urine Blood Urine Nitrite Ur Leukocyte Esterase Urine RBC Urine WBC Ur Squamous Epith Cells Urine Bacteria Hyaline Casts Acetone, Qual Negative COVID-19 ([facility]) COVID-19 Clin Com 11/03/22 11/03/22 11/03/22 00:00 00:44 02:16 MCV MCH MCHC RDW Plt Count MPV Immature Gran % (Auto) Neut % (Auto) Lymph % (Auto) [place] % (Auto) Eos % (Auto) Baso % (Auto) Lymph # (Auto) [place] # (Auto) Eos # (Auto) Baso # (Auto) Abs Immat Gran (auto) Absolute Neuts (auto) Absolute Nucleated RBC Nucleated RBC % (auto) Smear Tech's Comments VBG pH VBG pCO2 VBG pO2 VBG HCO3 VBG O2 Saturation VBG Base Excess Anion Gap Estim Creat Clear Calc Estimated GFR POC Glucose 358 H* 368 H* 343 H Random Glucose Lactic Acid Calcium Magnesium Total Bilirubin Direct Bilirubin AST ALT Alkaline Phosphatase Troponin I High Sens C-Reactive Protein Total Protein Albumin Urine Color Urine Appearance Urine pH Ur Specific [place] Urine Protein Urine Glucose (UA) Urine Ketones Urine Blood Urine Nitrite Ur Leukocyte Esterase Urine RBC Urine WBC Ur Squamous Epith Cells Urine Bacteria Hyaline Casts Acetone, Qual COVID-19 ([facility]) COVID-19 Clin Com 11/03/22 11/03/22 05:06 07:18 MCV MCH MCHC RDW Plt Count MPV Immature Gran % (Auto) Neut % (Auto) Lymph % (Auto) [place] % (Auto) Eos % (Auto) Baso % (Auto) Lymph # (Auto) [place] # (Auto) Eos # (Auto) Baso # (Auto) Abs Immat Gran (auto) Absolute Neuts (auto) Absolute Nucleated RBC Nucleated RBC % (auto) Smear Tech's Comments VBG pH VBG pCO2 VBG pO2 VBG HCO3 VBG O2 Saturation VBG Base Excess Anion Gap Estim Creat Clear Calc 35.8 Estimated GFR 32 POC Glucose 114 Random Glucose Lactic Acid Calcium Magnesium Total Bilirubin Direct Bilirubin AST ALT Alkaline Phosphatase Troponin I High Sens C-Reactive Protein Total Protein Albumin Urine Color Urine Appearance Urine pH Ur Specific [place] Urine Protein Urine Glucose (UA) Urine Ketones Urine Blood Urine Nitrite Ur Leukocyte Esterase Urine RBC Urine WBC Ur Squamous Epith Cells Urine Bacteria Hyaline Casts Acetone, Qual COVID-19 ([facility]) COVID-19 Clin Com Assessment and Plan (1) Cellulitis of right foot: Status: Acute Plan 57M PMH insulin-dependent type 2 diabetes, hypertension, CKD stage 4 s/p renal transplant, diabetic polyneuropathy, history osteomyelitis s/p amputation right small toe, chronic pain syndrome, and GERD? presented with fever, foot and shoulder pain sepsis due to acute cellulitis right foot IV vancomycin and cefepime (renally adjusted) Follow CBC, cultures check ct foot (NC due to ckd) Mechanical fall no head injury no acute fracture, dislocation, or subluxation in bilateral shoulders.? Recommend outpatient follow-up CXR negative for fracture.? Chest pain is reproducible to palpation insulin-dependent type 2 diabetes with hyperglycemia on arrival, glucose 551. No DKA. AG closed now better controlled, conitnue basal bolus insulin HTN amlodipine CKD stage 4 s/p renal transplant Renal function baseline Continue tacrolimus and prednisone Diabetic polyneuropathy continue duloxetine, gabapentin chronic pain syndrome continue lorcet DVT prophylaxis-Lovenox Full code reason for continued hospitalization: following cultures, iv abx in patient with sepsis Time Spent With Patient Time: Total time managing care of this patient today ____ minutes. Quality Stroke Does the patient have a stroke diagnosis?: No VTE Prior VTE?: No VTE Risk Level:: Medical - moderate - high VTE Device Contraindication: Treatment Not Indicated VTE Drug Contraindication: N/A - Med Ordered
[2022-11-03 11:09] LABS: Glucose, Whole Blood 172 mg/dL (60-115)
[2022-11-03] MEDS: Insulin Lispro 100 UNIT/ML 3 ML VIAL SUBCUT ×3 (11:28→20:39)
--- NOTE | 2022-11-03 14:21 | MHC.CM.PN ---
PATIENT LIVES ALONE. HE USES A [facility]E NO [facility] OR PRIVATE SERVICES HCP IS ON FILE AND VERIFIED. HE IS HOPING TO RETURN HOME WITH NO NEED FOR SERVICES. CASE MANAGEMENT FOLLOWING
[2022-11-03 15:16] VITALS: BP 137/85; PULSE 76; RESP 18; TEMP 36.6; O2SAT 97
[2022-11-03] MEDS: oxyCODONE HCl Immed Release 5 MG TABLET PO (15:54)
[2022-11-03 16:08] LABS: Glucose, Whole Blood 224 mg/dL (60-115)
--- NOTE | 2022-11-03 16:30 | HO.WOUND ---
Wound Care Consult Reason for consult: Right foot ulcer Patient has a wound on the right medial heel. Wound was open to air at the time of consult. Wound bed appearance was dry intact eschar. Wound edges were attached and well defined. No undermining or tunneling. Surrounding tissue temperature was warm to touch. No drainage noted. No odor. Periwound appearance was dry and callused. Wound measures 0.9cm x 2.7cm x 0.1cm. Wound was cleansed with [employer] wound cleanser. Wound bed was painted with betadine and covered with gauze and anshul wrap. Did mention to patient the importance of keeping pressure off the area, even though pressure does not seem like the cause of this injury. Recommendation: Would recommend painting wound with betadine daily to keep dry and clean. Cover with gauze and anshul wrap to help pad and protect area.
[2022-11-03 19:26] VITALS: BP 146/84; PULSE 72; RESP 18; TEMP 36.4; O2SAT 96
[2022-11-03] MEDS: traZODone HCL 25 MG HALFTAB PO (20:21)
[2022-11-03] MEDS: Gabapentin 100 MG CAPSULE PO (20:21)
[2022-11-03] MEDS: vancomycin HCL 750 MG in 0.9 % Sodium Chloride 250 ML 265 MG IV (20:21)
[2022-11-03] MEDS: Famotidine 20 MG TABLET 40 MG PO (20:21)
[2022-11-03 20:28] LABS: Glucose, Whole Blood 411 mg/dL (60-115)
[2022-11-03] MEDS: Insulin Glargine,Hum.rec.anlog 100 UNIT/ML 10 ML VIAL 36 UNIT SUBCUT (20:39)
[2022-11-03] MEDS: Enoxaparin Sodium 40 MG/0.4 ML SYRINGE SUBCUT (21:35)
[2022-11-04] MEDS: cefEPime HCl 1 GM in 0.9 % Sodium Chloride 50 ML IV ×2 (02:40→15:07)
[2022-11-04 03:56] VITALS: BP 144/86; PULSE 63; RESP 18; TEMP 36.4; O2SAT 97
[2022-11-04] MEDS: Omeprazole 20 MG CAPSULE.DR PO (05:29)
[2022-11-04 06:50] LABS: Hematocrit 35.6 % (42.0-52.0); Hemoglobin 11.9 g/dl (14.0-18.0); Mean Corpuscular HGB Conc 33.4 g/dl (31.0-36.0); Mean Corpuscular Hemoglobin 27.4 pg (27.0-33.0); Mean Corpuscular Volume 81.8 fL (80.0-98.0); Mean Platelet Volume 11.3 fL (9.4-12.4); Platelet Count 222 X10*3/uL (160-400); Red Blood Count 4.35 X10*6/uL (4.60-5.80); Red Cell Distribution Width 13.8 % (11.0-16.0); White Blood Count 10.9 X10*3/uL (4.8-10.8)
[2022-11-04 07:12] VITALS: BP 137/62; PULSE 63; RESP 16; TEMP 36.3; O2SAT 96
[2022-11-04 07:22] LABS: Anion Gap 13 (12-20); Blood Urea Nitrogen 24 mg/dL (9-16); Calcium 8.4 mg/dL (8.4-10.2); Carbon Dioxide 19 mmol/L (22-29); Chloride 111 mmol/L (96-108); Creatinine Clr Calc Pharmacy 37.1; Estimated Glomerular Filt Rate 33; Glucose Fasting 151 mg/dL (60-99); Potassium 4.1 mmol/L (3.3-5.1); Sodium 139 mmol/L (135-145)
[2022-11-04 07:27] LABS: Glucose, Whole Blood 112 mg/dL (60-115)
[2022-11-04] MEDS: 0.9 % Sodium Chloride Flush 3 ML SYRINGE IVFLUSH ×3 (09:09→21:38)
[2022-11-04] MEDS: amLODIPine Besylate 5 MG TABLET PO (09:11)
[2022-11-04] MEDS: DULoxetine HCl 20 MG CAPSULE.DR PO (09:11)
[2022-11-04] MEDS: calcitrioL 0.25 MCG CAPSULE 0.5 MCG PO (09:11)
[2022-11-04] MEDS: hydrOXYzine HCL 10 MG TABLET PO ×2 (09:11→21:38)
[2022-11-04] MEDS: Aspirin Enteric Coated 81 MG TABLET.DR PO (09:12)
[2022-11-04] MEDS: Atorvastatin Calcium 10 MG TABLET PO (09:12)
[2022-11-04] MEDS: predniSONE 10 MG TABLET PO (09:12)
[2022-11-04] MEDS: Metoprolol Succinate ER 25 MG TAB.ER.24H PO (09:12)
[2022-11-04] MEDS: Tacrolimus 1 MG CAPSULE 2 MG PO ×2 (09:12→21:38)
[2022-11-04] MEDS: Lidocaine 4 % Patch ADH..PATCH 1 PATCH TRANSDERMA (09:14)
[2022-11-04 11:18] LABS: Glucose, Whole Blood 152 mg/dL (60-115)
[2022-11-04] MEDS: Insulin Lispro 100 UNIT/ML 3 ML VIAL SUBCUT ×3 (11:58→21:37)
--- NOTE | 2022-11-04 13:29 | HO.PM.IMPN ---
Subjective Subjective Date of Service: 11/04/22 Interval History: Seen and evaluated this morning heel wound better but still painful pending cultures Review of Systems Review of Systems: Yes all other systems are reviewed and are negative Physical Exam Vital Signs: Vital Signs: Last Vital Signs Temp 97.4 F 11/04/22 07:12 Pulse 63 11/04/22 07:12 Resp 16 11/04/22 07:12 BP 137/62 11/04/22 07:12 Pulse Ox 96 11/04/22 07:12 O2 Del Method Room Air 11/04/22 07:12 BMI result Body Mass Index 32.0 Const: Other: Constitutional : Awake, interactive, not in distress Neck : Normal inspection, Supple Cardiovascular : RRR, no JVP, no lower extremity edema Respiratory : good bilateral air entry, no crackles, wheezes or rhonchi Gastrointestinal: soft, lax, Normal bowel sounds, Non tender Skin : Warm, Dry, heel dry callus with opening and erythema, tenderness Neurological : Alert & oriented x3, No focal deficit Objective Data Active Medications Acetaminophen (Acetaminophen 325 Mg Tablet) 650 mg PO Q6H PRN PRN Reason: Pain, Mild (Pain Scale 1-3) Hydrocodone Bitart/Acetaminophen (Hydrocodone Bit/Acetam 10/325 Tablet) 1 tab PO Q6H PRN PRN Reason: severe pain Last Admin: 11/03/22 13:00 Dose: 1 tab Documented By: EMILIA Albuterol Sulfate (Albuterol Sulfate (0.083%) 2.5 Mg/3 Ml Vial.[place]) 2.5 mg INHALE TID PRN PRN Reason: Respiratory Distress Albuterol Sulfate (Albuterol Sulfate 90 Mcg 8 Gm Inhaler) 2 puff INHALE Q4H PRN PRN Reason: wheezing Amlodipine Besylate (Amlodipine Besylate 5 Mg Tablet) 5 mg PO DAILY [facility]; Protocol Last Admin: 11/04/22 09:11 Dose: 5 mg Documented By: ROBERTO Aspirin (Aspirin Enteric Coated 81 Mg Tablet.) 81 mg PO DAILY [facility] Last Admin: 11/04/22 09:12 Dose: 81 mg Documented By: ROBERTO Atorvastatin Calcium (Atorvastatin Calcium 10 Mg Tablet) 10 mg PO DAILY [facility] Last Admin: 11/04/22 09:12 Dose: 10 mg Documented By: ROBERTO Calcitriol (Calcitriol 0.25 Mcg Capsule) 0.5 mcg PO DAILY [facility] Last Admin: 11/04/22 09:11 Dose: 0.5 mcg Documented By: ROBERTO Docusate Sodium (Docusate Sodium 100 Mg Capsule) 100 mg PO DAILY PRN PRN Reason: Constipation Duloxetine HCl (Duloxetine Hcl 20 Mg Capsule.Dr) 20 mg PO DAILY [facility] Last Admin: 11/04/22 09:11 Dose: 20 mg Documented By: ROBERTO Enoxaparin Sodium (Enoxaparin Sodium 40 Mg/0.4 Ml Syringe) 40 mg SUBCUT Q24H [facility] Last Admin: 11/03/22 21:35 Dose: 40 mg Documented By: YOKO Famotidine (Famotidine 20 Mg Tablet) 40 mg PO BEDTIME [facility] Last Admin: 11/03/22 20:21 Dose: 40 mg Documented By: YOKO Gabapentin (Gabapentin 100 Mg Capsule) 100 mg PO BEDTIME [facility] Last Admin: 11/03/22 20:21 Dose: 100 mg Documented By: YOKO Glucose (Glucose Gel 15 Gm Gel..Gram.) 15 gm PO Q15M PRN; Protocol PRN Reason: per Hypoglycemia Standing Ord. Hydroxyzine HCl (Hydroxyzine Hcl 10 Mg Tablet) 10 mg PO BID [facility] Last Admin: 11/04/22 09:11 Dose: 10 mg Documented By: ROBERTO Dextrose (D10) 250 mls @ 750 mls/hr IV Q15M PRN; Protocol PRN Reason: per Hypoglycemia Standing Ord. Cefepime HCl 1 gm/ Sodium (Chloride) 50 mls @ 100 mls/hr IV Q12H [facility] Last Infusion: 11/04/22 03:10 Dose: 0 mls/hr Documented By: YOKO Vancomycin HCl 750 mg/ Sodium (Chloride) 265 mls @ 265 mls/hr IV Q24H [facility] Last Infusion: 11/03/22 21:32 Dose: 0 mls/hr Documented By: YOKO Insulin Glargine (Insulin Glargine,Hum.Rec.Anlog 100 Unit/Ml 10 Ml Vial) 36 unit SUBCUT BEDTIME [facility] Last Admin: 11/03/22 20:39 Dose: 36 unit Documented By: YOKO Insulin Human Lispro (Insulin Lispro 100 Unit/Ml 3 Ml Vial) 0 unit SUBCUT QIDACHS [facility]; Protocol Last Admin: 11/04/22 11:58 Dose: 2 unit Documented By: ROBERTO Lidocaine (Lidocaine 4 % Patch Adh..Patch) 1 patch TRANSDERMA DAILY [facility] Last Admin: 11/04/22 09:14 Dose: 1 patch Documented By: ROBERTO Loperamide HCl (Loperamide Hcl 2 Mg Capsule) 2 mg PO BID PRN PRN Reason: diarrhea Metoprolol Succinate (Metoprolol Succinate Er 25 Mg Tab.Er.24h) 25 mg PO DAILY [facility]; Protocol Last Admin: 11/04/22 09:12 Dose: 25 mg Documented By: ROBERTO Omeprazole (Omeprazole 20 Mg Capsule.Dr) 20 mg PO DAILY@0630 [facility] Last Admin: 11/04/22 05:29 Dose: 20 mg Documented By: YOKO Ondansetron HCl (Ondansetron Hcl 4 Mg/2 Ml Vial) 4 mg IVPUSH Q8H PRN PRN Reason: Nausea and Vomiting Oxycodone HCl (Oxycodone Hcl Immed Release 5 Mg Tablet) 5 mg PO Q6H PRN PRN Reason: Pain, Severe (Pain Scale 7-10) Last Admin: 11/03/22 15:54 Dose: 5 mg Documented By: COTEMA Oxycodone HCl (Oxycodone Hcl Immed Release 5 Mg Tablet) 5 mg PO BID PRN PRN Reason: Pain, Moderate(Pain Scale 4-6) Pharmacy Consult (Consult Rx Vancomycin Dosing) 1 each MISCELLANE DAILY PRN PRN Reason: Consult order Pharmacy Consult (Consult Rx Perform Med Rec) 1 each MISCELLANE ONCE PRN PRN Reason: Consult order Prednisone (Prednisone 10 Mg Tablet) 10 mg PO DAILY [facility] Last Admin: 11/04/22 09:12 Dose: 10 mg Documented By: ROBERTO Sodium Chloride (0.9 % Sodium Chloride Flush 3 Ml Syringe) 3 ml IVFLUSH QSHIFT [facility] Last Admin: 11/04/22 09:09 Dose: 3 ml Documented By: ROBERTO Tacrolimus (Tacrolimus 1 Mg Capsule) 2 mg PO BID [facility] Last Admin: 11/04/22 09:12 Dose: 2 mg Documented By: ROBERTO Tramadol HCl (Tramadol Hcl 50 Mg Tablet) 50 mg PO Q6H PRN PRN Reason: moderate pain Last Admin: 11/03/22 08:29 Dose: 50 mg Documented By: COTEMA Trazodone HCl (Trazodone Hcl 25 Mg Halftab) 25 mg PO BEDTIME [facility] Last Admin: 11/03/22 20:21 Dose: 25 mg Documented By: YOKO Labs 11/04/22 05:30 11/04/22 05:30 Labs: Laboratory Results - last 24 hr 11/03/22 11/03/22 11/04/22 16:05 20:24 05:30 MCV MCH MCHC RDW Plt Count MPV Absolute Nucleated RBC Nucleated RBC % (auto) Anion Gap 13 Estim Creat Clear Calc 37.1 Estimated GFR 33 POC Glucose 224 H 411 H* Fasting Glucose 151 H Calcium 8.4 11/04/22 11/04/22 11/04/22 05:30 07:16 11:06 MCV 81.8 MCH 27.4 MCHC 33.4 RDW 13.8 Plt Count 222 MPV 11.3 Absolute Nucleated RBC 0.000 Nucleated RBC % (auto) 0.0 Anion Gap Estim Creat Clear Calc Estimated GFR POC Glucose 112 152 H Fasting Glucose Calcium Microbiology Microbiology Results: Microbiology 11/02/22 20:06 Blood Culture - Preliminary Blood - Venous No growth after 24 hours. 11/02/22 18:47 Blood Culture - Preliminary Blood - Venous No growth after 24 hours. Assessment and Plan (1) Cellulitis of right foot: Status: Acute (2) Acute hyperglycemia: Status: Acute (3) Diabetic infection of right foot: Status: Acute Plan 57M PMH insulin-dependent type 2 diabetes, hypertension, CKD stage 4 s/p renal transplant, diabetic polyneuropathy, history osteomyelitis s/p amputation right small toe, chronic pain syndrome, and GERD? presented with fever, foot and shoulder pain sepsis due to acute cellulitis right foot Continue IV vancomycin and cefepime (renally adjusted) Follow CBC, cultures CT foot (NC due to ckd) wound c are eval Vanco trough follow Mechanical fall no head injury no acute fracture, dislocation, or subluxation in bilateral shoulders.? Recommend outpatient follow-up CXR negative for fracture.? Chest pain is reproducible to palpation insulin-dependent type 2 diabetes with hyperglycemia on arrival, glucose 551. No DKA. AG closed now better controlled, conitnue basal bolus insulin HTN amlodipine CKD stage 4 s/p renal transplant Renal function baseline Continue tacrolimus and prednisone Diabetic polyneuropathy continue duloxetine, gabapentin chronic pain syndrome continue lorcet DVT prophylaxis-Lovenox Full code reason for continued hospitalization: following cultures, iv abx in patient with sepsis Time Spent With Patient Time: Total time managing care of this patient today ____ minutes. Quality Stroke Does the patient have a stroke diagnosis?: No VTE Prior VTE?: No VTE Risk Level:: Medical - moderate - high VTE Device Contraindication: Treatment Not Indicated VTE Drug Contraindication: N/A - Med Ordered
--- NOTE | 2022-11-04 13:29 | MHC.CM.PN ---
STILL AWAITING CULTURES. POSSIBLE DC HOME WEDNESDAY PAT'S CAR IS IN LOT
[2022-11-04 15:20] VITALS: BP 135/65; PULSE 68; RESP 18; TEMP 36.3; O2SAT 96
[2022-11-04 16:02] LABS: Glucose, Whole Blood 184 mg/dL (60-115)
[2022-11-04 19:51] LABS: Vancomycin Trough 11.8 mcg/mL (10.0-20.0)
[2022-11-04 20:00] VITALS: BP 143/86; PULSE 75; RESP 16; TEMP 36.6; O2SAT 96
[2022-11-04 20:11] LABS: Glucose, Whole Blood 312 mg/dL (60-115)
[2022-11-04] MEDS: Insulin Glargine,Hum.rec.anlog 100 UNIT/ML 10 ML VIAL 36 UNIT SUBCUT (21:37)
[2022-11-04] MEDS: traZODone HCL 25 MG HALFTAB PO (21:38)
[2022-11-04] MEDS: Famotidine 20 MG TABLET 40 MG PO (21:38)
[2022-11-04] MEDS: Gabapentin 100 MG CAPSULE PO (21:38)
[2022-11-04] MEDS: Enoxaparin Sodium 40 MG/0.4 ML SYRINGE SUBCUT (21:38)
[2022-11-04] MEDS: vancomycin HCL 1,000 MG in 0.9 % Sodium Chloride 250 ML 270 MG IV (21:56)
[2022-11-05] MEDS: cefEPime HCl 1 GM in 0.9 % Sodium Chloride 50 ML IV (02:58)
[2022-11-05 04:00] VITALS: BP 150/88; PULSE 64; RESP 18; TEMP 36.3; O2SAT 96
[2022-11-05] MEDS: Omeprazole 20 MG CAPSULE.DR PO (05:47)
[2022-11-05 06:23] LABS: Creatinine Clr Calc Pharmacy 36.2; Estimated Glomerular Filt Rate 32
[2022-11-05 07:24] VITALS: BP 134/60; PULSE 66; RESP 16; TEMP 36.4; O2SAT 97
[2022-11-05 07:33] LABS: Glucose, Whole Blood 114 mg/dL (60-115)
[2022-11-05] MEDS: Lidocaine 4 % Patch ADH..PATCH 1 PATCH TRANSDERMA (07:41)
[2022-11-05] MEDS: amLODIPine Besylate 5 MG TABLET PO (07:42)
[2022-11-05] MEDS: calcitrioL 0.25 MCG CAPSULE 0.5 MCG PO (07:42)
[2022-11-05] MEDS: Metoprolol Succinate ER 25 MG TAB.ER.24H PO (07:42)
[2022-11-05] MEDS: DULoxetine HCl 20 MG CAPSULE.DR PO (07:42)
[2022-11-05] MEDS: Atorvastatin Calcium 10 MG TABLET PO (07:43)
[2022-11-05] MEDS: Aspirin Enteric Coated 81 MG TABLET.DR PO (07:43)
[2022-11-05] MEDS: hydrOXYzine HCL 10 MG TABLET PO (07:43)
[2022-11-05] MEDS: predniSONE 10 MG TABLET PO (07:43)
[2022-11-05] MEDS: Tacrolimus 1 MG CAPSULE 2 MG PO (07:43)
[2022-11-05] MEDS: 0.9 % Sodium Chloride Flush 3 ML SYRINGE IVFLUSH (07:47)
--- NOTE | 2022-11-05 10:40 | PM.DS ---
DS: Providers Provider Date of Service: 11/05/22 Date of admission: 11/02/22 21:36 Primary care physician: Zoraida Luo MD Consults: 11/04/22 11:02 Consult to Wound Care Routine Consulting Provider: Abena Fountain Reason for consultation: Right heel dry open wound w associated cellulitis DS: Diagnosis Discharge Diagnosis (1) Cellulitis of right foot: Status: Acute (2) Acute hyperglycemia: Status: Acute (3) Diabetic infection of right foot: Status: Acute DS: Summary Hospital Course Hospital Course: Admission note HPI 57-year-old male with history of insulin-dependent type 2 diabetes, hypertension, CKD stage 4 s/p renal transplant on tacrolimus and chronic prednisone, diabetic polyneuropathy, history osteomyelitis s/p amputation right small toe, chronic pain syndrome, and GERD presented to the ED earlier today for evaluation of bilateral shoulder pain, worse on the right side as well as subjective fever and chills ongoing since yesterday.? He states he fell yesterday while at a shopping facility onto his chest and since then has had right shoulder pain.? He states the pain in the left shoulder is chronic.? He is reporting limited range of motion.? There is associated pleuritic sharp chest pain without radiation.? Does report occasional dyspnea on exertion with occasional orthopnea that has been ongoing for about 5 months but has not worsened acutely.? No chest pressure, palpitations, lightheadedness.? He did have echocardiogram performed in 09/29/2022 which showed normal LV systolic function with impaired relaxation filling pattern with EF 55-60%.? He also tells me that he has had a wound on the right heel that has been present for about 1 week without purulent drainage that has been quite painful with worsening erythema and warmth around the area.? He states his glucose levels have also been elevated since he has not been feeling well.? On arrival, patient afebrile, mild tachycardia of 91, vitals otherwise within normal limits.? There is a leukocytosis of 15.7.? Renal function baseline with creatinine of 3.01, BUN 31, sodium 131, potassium 4.3, chloride 103, CO2 14, HGB 18.? Glucose on arrival 551.? Urinalysis unremarkable except for 2+ protein and significant glucose.? X-ray of the right foot showing partial amputation 5th digit but no acute fracture dislocation.? CXR negative for acute cardiopulmonary disease.? Bilateral shoulders negative for acute fracture dislocation or subluxation.? There are mild degenerative changes of the right AC joint and glenohumeral joint and a small bone fragment inferior to the glenoid left shoulder likely old injury or loose body, unchanged.? In the ED, treated with IV NS, 10 units IV regular insulin, vancomycin, and zosyn. Hospital course was admitted for sepsis due to acute cellulitis right foot as he was treated with IV vancomycin and cefepime (renally adjusted). blood cultures remained negative. seen by wound care team who recommended local care. CT scan was done showing no evidence of bone infection. erythema resolved and pain decreased significantly. he was able to ambulate. REported Mechanical fall on admission with no head injury. no acute fracture, dislocation, or subluxation in bilateral shoulders.? Recommend outpatient follow-up with PCP. Has insulin-dependent type 2 diabetes with hyperglycemia. on admission, glucose 551. No DKA. better controlled as the infection improved. Continue antibiotics for 1 more week follow up with wound clinic as outpatient Time Spent with Patient Time attestation: Total time managing care of this patient today ____ minutes. Discharge coordination time: Greater than 30 minutes Quality: Safe Use of Opioids Does Pt have an Active Cancer Diagnosis on the Problem List?: No Quality: Stroke Does the patient have a stroke diagnosis?: No Physical Exam Vital Signs: Vital Signs: Last Vital Signs Temp 97.6 F 11/05/22 07:24 Pulse 66 11/05/22 07:24 Resp 16 11/05/22 07:24 BP 134/60 11/05/22 07:24 Pulse Ox 97 11/05/22 07:24 O2 Del Method Room Air 11/05/22 07:24 BMI result Body Mass Index 32.0 Const: Other: Constitutional : Awake, interactive, not in distress Neck : Normal inspection, Supple Cardiovascular : RRR, no JVP, no lower extremity edema Respiratory : good bilateral air entry, no crackles, wheezes or rhonchi Gastrointestinal: soft, lax, Normal bowel sounds, Non tender Skin : Warm, Dry, heel dry callus with opening and erythema,less erythema and tenderness Neurological : Alert & oriented x3, No focal deficit DS: Data Data Completed and Pending Labs on day of discharge: Laboratory Results - last 24 hr 11/04/22 11/04/2211/04/23 11:06 15:59 19:10 Creatinine Estim Creat Clear Calc Estimated GFR POC Glucose 152 H 184 H Vancomycin Trough 11.8 11/04/22 11/05/22 11/05/22 20:04 05:28 07:27 Creatinine 2.13 H Estim Creat Clear Calc 36.2 Estimated GFR 32 POC Glucose 312 H 114 Vancomycin Trough Preliminary micro results at discharge 11/02/22 20:06 Blood Culture - Preliminary Blood - Venous No growth after 48 hours. 11/02/22 18:47 Blood Culture - Preliminary Blood - Venous No growth after [address] foot : Radiologist's impression: ITS Impressions Chest X-Ray 11/02/22 18:16 IMPRESSION: No evidence for acute disease in the chest. Foot X-Ray 11/02/22 19:40 IMPRESSION: 1. Mild degenerative changes right AC joint and glenohumeral joint. No visible acute fracture, dislocation or subluxation seen. 2. Small bone fragment inferior to glenoid left shoulder likely old injury or loose body. It is unchanged to last left shoulder exam 11/07/2022 3. Partial amputation fifth digit beyond the proximal end proximal phalanx, right foot. No acute fracture or dislocation right foot. 4. There is extensive vascular calcification right foot. Shoulder X-Ray 11/02/22 19:40 IMPRESSION: 1. Mild degenerative changes right AC joint and glenohumeral joint. No visible acute fracture, dislocation or subluxation seen. 2. Small bone fragment inferior to glenoid left shoulder likely old injury or loose body. It is unchanged to last left shoulder exam 11/07/2022 3. Partial amputation fifth digit beyond the proximal end proximal phalanx, right foot. No acute fracture or dislocation right foot. 4. There is extensive vascular calcification right foot. Shoulder X-Ray 11/02/22 19:40 IMPRESSION: 1. Mild degenerative changes right AC joint and glenohumeral joint. No visible acute fracture, dislocation or subluxation seen. 2. Small bone fragment inferior to glenoid left shoulder likely old injury or loose body. It is unchanged to last left shoulder exam 11/07/2022 3. Partial amputation fifth digit beyond the proximal end proximal phalanx, right foot. No acute fracture or dislocation right foot. 4. There is extensive vascular calcification right foot. Foot CT 11/03/22 11:24 IMPRESSION: 1. Mild irregularity and skin thickening along the posterior/plantar aspect of the calcaneus with underlying subcutaneous fat stranding, likely indicating acute cellulitis. No organized fluid collection or abscess formation. No adjacent periosteal reaction or cortical erosion to suggest acute osteomyelitis. 2. Redemonstration of a 5th phalangeal resection with cortication of the remaining 5th proximal phalanx. No cortical erosion or periosteal reaction to suggest acute osteomyelitis. 3. 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 Discharge Plan Discharge Anticipated Discharge Date/Time: 11/05/22 10:23 Patient Disposition: Home, Self-Care Discharge Diagnosis: Diabetic foot infection Referrals: Zoraida Luo MD [Primary Care Provider] - 1 Week Discharge Medications: New doxycycline monohydrate 100 mg capsule 100 mg PO BID Qty: 14 0RF amoxicillin-pot clavulanate 875-125 mg tablet 1 tab PO BID Qty: 14 0RF Continued albuterol sulfate 2.5 mg /3 mL (0.083 %) solution for nebulization 1 amp inhalation TID PRN (Reason: Respiratory Distress) atorvastatin 10 mg tablet 10 mg PO DAILY amlodipine 5 mg tablet 5 mg PO DAILY aspirin 81 mg tablet,delayed release (DR/EC) 81 mg PO DAILY tramadol 50 mg tablet 50 mg PO Q6H PRN (Reason: moderate pain) calcitriol 0.5 mcg capsule 0.5 mcg PO DAILY mupirocin 2 % ointment 1 appl topical TID Protocol: Apply to: Apply to: AFFECTED AREA albuterol sulfate [ProAir HFA] 90 mcg/actuation HFA aerosol inhaler 2 puff PO Q4H PRN (Reason: wheezing) tacrolimus 1 mg capsule 2 mg PO BID Patient Comments: PATIENTS DOSE WAS RECENTLY DECREASED TO 2 IN THE AM INSTEAD OF 3 insulin lispro [Humalog KwikPen Insulin] 100 unit/mL insulin pen 5 unit subcut TIDWM duloxetine 20 mg capsule,delayed release(DR/EC) 20 mg PO DAILY cholecalciferol (vitamin D3) 1,250 mcg (50,000 unit) capsule 1 cap PO SA@1000 insulin glargine [Lantus Solostar U-100 Insulin] 100 unit/mL (3 mL) insulin pen 48 unit subcut BEDTIME famotidine 40 mg Tablet 40 mg PO BEDTIME gabapentin 100 mg Capsule 100 mg PO BEDTIME prednisone 10 mg Tablet 10 mg PO DAILY miconazole nitrate [Anti-Fungal] 2 % Powder 1 appl TOPICAL DAILY PRN (Reason: Itching) acetaminophen 500 mg Tablet 500 mg PO Q8H PRN (Reason: Pain) esomeprazole magnesium 40 mg Capsule,Delayed Release(Dr/Ec) 40 mg PO DAILY@0630 oxycodone 5 mg tablet 5 mg PO BID PRN (Reason: severe pain (scale score 7-10)) Qty: 10 0RF Rx Instructions: Partial Fill upon patient request. hydrocodone-acetaminophen 10-325 mg tablet 1 tab PO Q6H PRN (Reason: severe pain) lidocaine 5 % adhesive patch,medicated 1 patch topical DAILY loperamide 2 mg capsule 2 mg PO BID PRN (Reason: diarrhea) hydroxyzine HCl 10 mg tablet 10 mg PO BID trazodone 50 mg tablet 25 mg PO BEDTIME metoprolol succinate [Toprol XL] 25 mg tablet extended release 24 hr 25 mg PO DAILY Qty: 90 3RF Discharge Orders: Discharge Order (Routine); Ordered 11/05/22 Ordered By: Nara Hood Diet: Diabetic diet Activity on Discharge: As tolerated Stand Alone Forms: Patient Portal Discharge page Care Plan Goals: Read below Health Concerns: Read below Plan of Treatment: Read below Assessment: You were admitted for treatment of foot infection. responded well to IV antibiotics as your blood cultures remained negative and ankle images did not show any signs of bone infection. Continue antibiotics for 1 more week follow up with wound clinic as outpatient
--- NOTE | 2022-11-05 11:01 | MHC.CM.PN ---
PATIENT FEELS CAPABLE OF HIS WOUND CARE NEEDS. DOES NOT WISH FOR ANY VNA SERVICES HE DOES REPORT THAT HE HAS [facility] AND HAS THE PHONE NUMBER TO DO SO.
== END 2022-11-05 11:42 | disposition home or self-care (01) | DRG 720 ==
LOC: HO.ED 20:38 → HO.EDOVER 21:55 → HO.S3 11-03 00:14
PROVIDERS: Internal Medicine; Nurse Practitioner Family; Admitting Provider Physician Assistant; Emergency Provider Emergency Medicine; PCP Family Medicine; Visit Provider Student in an Organized Health Care Education/Training Program
DX: A41.9 Sepsis, unspecified organism (principal); D84.821 Immunodeficiency due to drugs; E11.42 Type 2 diabetes mellitus with diabetic polyneuropathy; N18.4 Chronic kidney disease, stage 4 (severe); E11.22 Type 2 diabetes mellitus with diabetic chronic kidney disease; E11.621 Type 2 diabetes mellitus with foot ulcer; E11.628 Type 2 diabetes mellitus with other skin complications; L03.115 Cellulitis of right lower limb; E11.65 Type 2 diabetes mellitus with hyperglycemia; L97.419 Non-pressure chronic ulcer of right heel and midfoot with unspecified severity; I12.9 Hypertensive chronic kidney disease with stage 1 through stage 4 chronic kidney disease, or unspecified chronic kidney disease; G89.29 Other chronic pain; Z20.822 Contact with and (suspected) exposure to COVID-19; Z79.4 Long term (current) use of insulin; Z94.0 Kidney transplant status; Z79.82 Long term (current) use of aspirin; Z79.52 Long term (current) use of systemic steroids; Z79.621 Long term (current) use of calcineurin inhibitor; Z79.899 Other long term (current) drug therapy
CPT/HCPCS: 36415; 71046; 73030; 73620; 73700; 80048; 80076; 80202; 81001; 81003; 82009; 82565; 82803; 82947; 83605; 83735; 84484; 85025; 85027; 86140; 87040; 87635; 93005; 99221; 99285; J0692; J1650; J2543; J3370

== ENCOUNTER 2022-11-05 11:02 | Outpatient (REF) | payer MEDICAID, SELFPAY ==
--- NOTE | 2022-11-05 11:05 | HM_ITS ---
Conclusion: 1. Patient was monitored for total period of 2 days and 3 hours 2. Baseline was normal sinus rhythm with average heart of 81 beats per minute 3. No significant pauses or bradycardia noted 4. Total of 36,238 PACs accounting for 15% total beats account for frequent PACs next 5. Frequent short runs of SVT with fastest at 171 beats per minute and longest of 37 beats per minute 5. No patient reported events MTDD
== END 2022-11-05 11:03 | disposition home or self-care (01) ==
LOC: HO.US 11:02
PROVIDERS: PCP Family Medicine; Visit Provider Internal Medicine Cardiovascular Disease
DX: R55 Syncope and collapse (principal); I25.10 Atherosclerotic heart disease of native coronary artery without angina pectoris; I49.8 Other specified cardiac arrhythmias
CPT/HCPCS: 93225

== ENCOUNTER 2022-11-18 16:15 | Emergency (ER) | payer MEDICAID, SELFPAY ==
--- NOTE | ~2022-11-18 | XR_ITS ---
EXAMINATION: XR FOOT, RIGHT CLINICAL INFORMATION: Heel wound COMPARISON: 11/02/2022 TECHNIQUE: AP, lateral, and oblique views of the right foot. FINDINGS: Exam is felt to be similar to previous. Vascular calcifications are noted. No convincing evidence for an acute bony erosion on the imaging submitted. Chronic change in the digit is noted without acute finding distally. XR/XR foot RT min 3V IMPRESSION: No acute bony finding is seen. If further evaluation is warranted recommend MR
[2022-11-18 16:38] VITALS: BP 123/78; PULSE 76; RESP 18; TEMP 36.8; O2SAT 99; BMI 31.9
--- NOTE | 2022-11-18 17:28 | ED.GENADULT ---
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 Patient states that the chronic wound has been there for a long time. Over the last 2 weeks has been getting slightly more painful and turning black He has called wound care and was finally given appointment for this Wednesday, 2 days from now. He denies any fevers or chills or trauma to the lower extremity Denies any drainage from the wound Related Data Home Medications Medication Instructions Recorded Confirmed albuterol sulfate 2.5 mg/3 mL 1 amp inhalation TID PRN 08/26/21 11/02/22 (0.083 %) solution for nebulization Respiratory Distress albuterol sulfate 90 mcg/actuation 2 puff PO Q4H PRN wheezing 08/26/21 11/02/22 aerosol inhaler (ProAir HFA) amlodipine 5 mg tablet 5 mg PO DAILY 08/26/21 11/02/22 aspirin 81 mg tablet,delayed 81 mg PO DAILY 08/26/21 11/02/22 release atorvastatin 10 mg tablet 10 mg PO DAILY 08/26/21 11/02/22 calcitriol 0.5 mcg capsule 0.5 mcg PO DAILY 08/26/21 11/02/22 cholecalciferol (vitamin D3) 1,250 1 cap PO SA@1000 08/26/21 11/02/22 mcg (50,000 unit) capsule duloxetine 20 mg capsule,delayed 20 mg PO DAILY 08/26/21 11/02/22 release insulin glargine 100 unit/mL (3 48 unit subcut BEDTIME 08/26/21 11/02/22 mL) subcutaneous pen (Lantus Solostar U-100 Insulin) insulin lispro 100 unit/mL 5 unit subcut TIDWM 08/26/21 11/02/22 subcutaneous pen (Humalog KwikPen (U-100) Insulin) mupirocin 2 % topical ointment 1 appl topical TID 08/26/21 11/02/22 tacrolimus 1 mg capsule, 2 mg PO BID 08/26/21 11/02/22 immediate-release tramadol 50 mg tablet 50 mg PO Q6H PRN moderate pain 08/26/21 11/02/22 famotidine 40 mg tablet 40 mg PO BEDTIME 12/11/21 11/02/22 gabapentin 100 mg capsule 100 mg PO BEDTIME 12/11/21 11/02/22 hydroxyzine HCl 10 mg tablet 10 mg PO BID 09/24/22 11/02/22 loperamide 2 mg capsule 2 mg PO BID PRN diarrhea 09/24/22 11/02/22 trazodone 50 mg tablet 25 mg PO BEDTIME 09/24/22 11/02/22 acetaminophen 500 mg tablet 500 mg PO Q8H PRN Pain 10/20/22 11/02/22 esomeprazole magnesium 40 mg 40 mg PO DAILY@0630 10/20/22 11/02/22 capsule,delayed release miconazole nitrate 2 % topical 1 appl topical DAILY PRN Itching 10/20/22 11/02/22 powder (Anti-Fungal) prednisone 10 mg tablet 10 mg PO DAILY 10/20/22 11/02/22 hydrocodone 10 mg-acetaminophen 1 tab PO Q6H PRN severe pain 11/02/22 11/02/22 325 mg tablet lidocaine 5 % topical patch 1 patch topical DAILY 11/02/22 11/02/22 Previous Rx's Medication Instructions Recorded metoprolol succinate 25 mg 25 mg PO DAILY #90 tabs 09/24/22 tablet,extended release 24 hr (Toprol XL) oxycodone 5 mg tablet 5 mg PO BID PRN severe pain (scale 10/28/22 score 7-10) #10 tabs amoxicillin 875 mg-potassium 1 tab PO BID #14 tabs 11/05/22 clavulanate 125 mg tablet doxycycline monohydrate 100 mg 100 mg PO BID #14 caps 11/05/22 capsule cephalexin 500 mg capsule 500 mg PO Q8H #21 caps 11/18/22 doxycycline hyclate 100 mg tablet 100 mg PO BID #14 tabs 11/18/22 Allergies Allergy/AdvReac Type Severity Reaction Status Date / Time hydromorphone [From DILAUDID] Allergy Mild ITCHINESS Verified 11/02/22 17:57 diphenhydramine Allergy Unknown UNK Verified 11/02/22 17:57 [From BENADRYL] regadenoson [From Lexiscan] AdvReac Mild Itching Verified 11/02/22 17:57 Review of Systems Constitutional: Constitutional: Reports as per HPI, Denies chills, Denies fatigue and Denies fever(s) Integumentary/Breasts: Skin/Breast: Reports skin ulcer Neurologic: Denies focal weakness Endocrine: Endocrine: Denies fatigue PMFSH Past Medical History Medical History Amputation of fifth toe of right foot Chronic hyperglycemia Diabetes History of osteomyelitis HTN (hypertension) Surgical History H/O arteriovenostomy for renal dialysis Renal transplant recipient Family History Family History Other Diabetes No family history of coronary artery disease Social History Social History Household Members: None Housing: Apartment Do you presently have visiting nurse or other home services: No Alcohol intake: never Patient Tobacco Use Status: Never used Tobacco Advance Directives: Yes Advance Directives on File: Yes Advance Directives Date on File: 01/21/22 service: No Current occupational status: disabled Physical Exam ED Vital Signs: Vital Signs - 24 hr 11/18/22 16:38 11/18/22 19:41 11/18/22 22:11 Temperature 98.3 F 97.9 F Pulse Rate 76 70 72 Respiratory Rate 18 17 17 Blood Pressure 123/78 145/95 H 169/97 H Pulse Oximetry 99 96 98 Oxygen Delivery Method Room Air Room Air Room Air BMI result Body Mass Index 31.9 Const General: healthy appearing, comfortable, no acute distress, alert and awake Nutritional Appearance: well nourished Orientation/consciousness: patient oriented x3 HENMT Head: Yes normocephalic and Yes atraumatic Eyes Eyelids: Yes eyelids normal Conjunctivae: conjunctivae normal Sclerae: sclerae normal Corneas: corneas normal Pupils: Equal, round and reactive pupils present EOM: EOMs intact bilaterally Neck Neck: Yes full ROM Skin Other: Patient has a 4 cm diabetic ulcer to the right heel. It is unstageable as is covered with black eschar. There is no active drainage. There is some faint erythema extending proximally with mild edema over this area as well. No fluctuance or induration. The patient is tender to the proximal aspect of the ulcer. No calf tenderness Neuro General: patient oriented x3 Cranial nerves: Yes Equal, round and reactive pupils present and Yes Bilaterally intact EOM present Cognition (Neuro): normal cognition Extrem Other: Moving all extremities well without any obvious deformities Course Course Course Narrative: This is an RME: Additional HPI, ROS, PE not included below will be deferred to primary provider. 57 y/o M, hx of diabetes, presenting with worsening chronic wound to his right heel Medical Decision Making Medical Decision Making [facility] Narrative: The patient has a chronic diabetic wound that appears to have a mild acute cellulitis. There is no active drainage, no evidence of abscess. The patient has a slight leukocytosis, he has no fever. No evidence of sepsis. He will be treated with cephalexin and doxycycline and he will follow up with wound care on Wednesday. His cephalexin will be dosed Q 8 hours instead of q.6 hours due to his chronic kidney disease. 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 11/18/22 18:35 11/18/22 18:35 Labs: Lab Results 11/18/22 11/18/22 11/18/22 Range/Units 18:35 18:35 19:43 WBC 14.1 H (4.8-10.8) X10*3/uL RBC 4.91 (4.60-5.80) X10*6/uL Hgb 13.5 L (14.0-18.0) g/dl Hct 41.1 L (42.0-52.0) % MCV 83.7 (80.0-98.0) fL MCH 27.5 (27.0-33.0) pg MCHC 32.8 (31.0-36.0) g/dl RDW 14.6 (11.0-16.0) % Plt Count 269 (160-400) X10*3/uL MPV 10.1 (9.4-12.4) fL Immature Gran % (Auto) 0.6 H (0.0-0.4) % Neut % (Auto) 91.0 H (45-73) % Lymph % (Auto) 5.2 L (20-40) % [place] % (Auto) 3.1 (2-11) % Eos % (Auto) 0.0 (0-4) % Baso % (Auto) 0.1 (0-2) % Lymph # (Auto) 0.7 L (1.2-4.9) X10*3/uL [place] # (Auto) 0.4 (0.1-1.2) X10*3/uL Eos # (Auto) 0.0 (0.0-0.4) X10*3/uL Baso # (Auto) 0.0 (0.0-0.2) X10*3/uL Abs Immat Gran (auto) 0.09 H (0.00-0.03) X10*3/uL Absolute Neuts (auto) 12.9 H (2.0-8.3) x10*3/uL Absolute Nucleated RBC 0.000 (0.0-0.012) X10*3/uL Nucleated RBC % (auto) 0.0 (0.0-0.2) /100WBC Sodium 137 (135-145) mmol/L Potassium 4.5 (3.3-5.1) mmol/L Chloride 115 H (96-108) mmol/L Carbon Dioxide 12 L (22-29) mmol/L Anion Gap 15 (12-20) BUN 34 H (9-16) mg/dL Creatinine 2.90 H (0.5-1.4) mg/dL Estim Creat Clear Calc 26.5 Estimated GFR 23 POC Glucose 113 (60-115) mg/dL Random Glucose 153 H (60-115) mg/dL Calcium 8.6 (8.4-10.2) mg/dL Magnesium 1.9 (1.6-2.6) mg/dL Total Bilirubin 0.5 (0.0-1.0) mg/dL Direct Bilirubin 0.2 (0.0-0.5) mg/dL AST 16 (5-37) U/L ALT 40 (0-40) U/L Alkaline Phosphatase 135 H (39-117) U/L Total Protein 6.9 (6.5-8.0) g/dL Albumin 3.7 (3.5-5.0) g/dL Lipase 17 (8-78) U/L Independent Interpretation I performed an independent interpretation of an: Plain X-Ray (No obvious bony erosions to the right heel) Discharge Plan Discharge Clinical Impression: Diabetic ulcer of heel, Chronic kidney disease Patient Disposition: Home, Self-Care Instructions: Diabetic Foot Ulcers (ED) Additional Instructions: It is important that you follow-up with your on Wednesday as planned Take cephalexin 500 mg every 8 hours Take doxycycline twice daily Return for new or worsening symptoms Prescriptions: New cephalexin 500 mg capsule 500 mg PO Q8H Qty: 21 0RF doxycycline hyclate 100 mg tablet 100 mg PO BID Qty: 14 0RF No Action albuterol sulfate 2.5 mg /3 mL (0.083 %) solution for nebulization 1 amp inhalation TID PRN (Reason: Respiratory Distress) atorvastatin 10 mg tablet 10 mg PO DAILY amlodipine 5 mg tablet 5 mg PO DAILY aspirin 81 mg tablet,delayed release (DR/EC) 81 mg PO DAILY tramadol 50 mg tablet 50 mg PO Q6H PRN (Reason: moderate pain) calcitriol 0.5 mcg capsule 0.5 mcg PO DAILY mupirocin 2 % ointment 1 appl topical TID Protocol: Apply to: Apply to: AFFECTED AREA albuterol sulfate [ProAir HFA] 90 mcg/actuation HFA aerosol inhaler 2 puff PO Q4H PRN (Reason: wheezing) tacrolimus 1 mg capsule 2 mg PO BID Patient Comments: PATIENTS DOSE WAS RECENTLY DECREASED TO 2 IN THE AM INSTEAD OF 3 insulin lispro [Humalog KwikPen Insulin] 100 unit/mL insulin pen 5 unit subcut TIDWM duloxetine 20 mg capsule,delayed release(DR/EC) 20 mg PO DAILY cholecalciferol (vitamin D3) 1,250 mcg (50,000 unit) capsule 1 cap PO SA@1000 insulin glargine [Lantus Solostar U-100 Insulin] 100 unit/mL (3 mL) insulin pen 48 unit subcut BEDTIME famotidine 40 mg Tablet 40 mg PO BEDTIME gabapentin 100 mg Capsule 100 mg PO BEDTIME prednisone 10 mg Tablet 10 mg PO DAILY miconazole nitrate [Anti-Fungal] 2 % Powder 1 appl TOPICAL DAILY PRN (Reason: Itching) acetaminophen 500 mg Tablet 500 mg PO Q8H PRN (Reason: Pain) esomeprazole magnesium 40 mg Capsule,Delayed Release(Dr/Ec) 40 mg PO DAILY@0630 oxycodone 5 mg tablet 5 mg PO BID PRN (Reason: severe pain (scale score 7-10)) Qty: 10 0RF Rx Instructions: Partial Fill upon patient request. hydrocodone-acetaminophen 10-325 mg tablet 1 tab PO Q6H PRN (Reason: severe pain) lidocaine 5 % adhesive patch,medicated 1 patch topical DAILY doxycycline monohydrate 100 mg capsule 100 mg PO BID Qty: 14 0RF amoxicillin-pot clavulanate 875-125 mg tablet 1 tab PO BID Qty: 14 0RF loperamide 2 mg capsule 2 mg PO BID PRN (Reason: diarrhea) hydroxyzine HCl 10 mg tablet 10 mg PO BID trazodone 50 mg tablet 25 mg PO BEDTIME metoprolol succinate [Toprol XL] 25 mg tablet extended release 24 hr 25 mg PO DAILY Qty: 90 3RF
[2022-11-18 18:39] LABS: MANUAL DIFF FLAG NO
[2022-11-18 18:40] LABS: Basophils Percent Auto 0.1 % (0-2); Hematocrit 41.1 % (42.0-52.0); Hemoglobin 13.5 g/dl (14.0-18.0); Imm Gran Abs Auto 0.09 X10*3/uL (0.00-0.03); Imm Gran Pct Auto 0.6 % (0.0-0.4); Lymphocytes Absolute Auto 0.7 X10*3/uL (1.2-4.9); Lymphocytes Percent Auto 5.2 % (20-40); Mean Corpuscular HGB Conc 32.8 g/dl (31.0-36.0); Mean Corpuscular Hemoglobin 27.5 pg (27.0-33.0); Mean Corpuscular Volume 83.7 fL (80.0-98.0); Mean Platelet Volume 10.1 fL (9.4-12.4); Monocytes Absolute Auto 0.4 X10*3/uL (0.1-1.2); Monocytes Percent Auto 3.1 % (2-11); Neutrophils Absolute Auto 12.9 x10*3/uL (2.0-8.3); Platelet Count 269 X10*3/uL (160-400); Red Blood Count 4.91 X10*6/uL (4.60-5.80); Red Cell Distribution Width 14.6 % (11.0-16.0); SCAN SMEAR FLAG 1; White Blood Count 14.1 X10*3/uL (4.8-10.8)
[2022-11-18 18:55] LABS: Alanine Aminotransferase 40 U/L (0-40); Albumin Level 3.7 g/dL (3.5-5.0); Alkaline Phosphatase 135 U/L (39-117); Anion Gap 15 (12-20); Aspartate Amino Transferase 16 U/L (5-37); Bilirubin Direct 0.2 mg/dL (0.0-0.5); Bilirubin Total 0.5 mg/dL (0.0-1.0); Blood Urea Nitrogen 34 mg/dL (9-16); Calcium 8.6 mg/dL (8.4-10.2); Carbon Dioxide 12 mmol/L (22-29); Chloride 115 mmol/L (96-108); Creatinine Clr Calc Pharmacy 26.5; Estimated Glomerular Filt Rate 23; Glucose Random 153 mg/dL (60-115); Lipase 17 U/L (8-78); Magnesium 1.9 mg/dL (1.6-2.6); Potassium 4.5 mmol/L (3.3-5.1); Sodium 137 mmol/L (135-145); Total Protein 6.9 g/dL (6.5-8.0)
[2022-11-18 19:41] VITALS: BP 145/95; PULSE 70; RESP 17; TEMP 36.6; O2SAT 96
[2022-11-18 19:48] LABS: Glucose, Whole Blood 113 mg/dL (60-115)
--- NOTE | 2022-11-18 20:06 | MHC.EDTECH ---
This Tech assumed care of this PT upon arrival. PT changed over vitals completed and POC done. Nurse made aware of of results
[2022-11-18 22:11] VITALS: BP 169/97; PULSE 72; RESP 17; O2SAT 98
[2022-11-18] MEDS: Doxycycline Monohydrate 100 MG CAPSULE PO (22:48)
[2022-11-18] MEDS: cephALEXin 500 MG CAPSULE PO (22:48)
== END 2022-11-18 22:51 | disposition home or self-care (01) ==
PROVIDERS: Physician Assistant Medical; Emergency Provider Student in an Organized Health Care Education/Training Program
DX: M79.671 Pain in right foot (principal); E11.621 Type 2 diabetes mellitus with foot ulcer; L97.419 Non-pressure chronic ulcer of right heel and midfoot with unspecified severity; R60.0 Localized edema; E11.22 Type 2 diabetes mellitus with diabetic chronic kidney disease; I12.9 Hypertensive chronic kidney disease with stage 1 through stage 4 chronic kidney disease, or unspecified chronic kidney disease; N18.9 Chronic kidney disease, unspecified; Z94.0 Kidney transplant status; Z79.82 Long term (current) use of aspirin; Z79.4 Long term (current) use of insulin; Z79.02 Long term (current) use of antithrombotics/antiplatelets; Z79.899 Other long term (current) drug therapy
CPT/HCPCS: 36415; 73630; 80048; 80076; 82947; 83690; 83735; 85025; 99283

== ENCOUNTER 2022-11-20 08:19 | Outpatient (RCR) | payer MEDICAID, SELFPAY ==
[2022-12-02 09:37] LABS: MANUAL DIFF FLAG NO
[2022-12-02 10:48] LABS: Basophils Percent Auto 0.3 % (0-2); Eosinophils Percent Auto 0.3 % (0-4); Hematocrit 41.5 % (42.0-52.0); Hemoglobin 13.2 g/dl (14.0-18.0); Imm Gran Abs Auto 0.03 X10*3/uL (0.00-0.03); Imm Gran Pct Auto 0.3 % (0.0-0.4); Lymphocytes Absolute Auto 0.8 X10*3/uL (1.2-4.9); Lymphocytes Percent Auto 8.3 % (20-40); Mean Corpuscular HGB Conc 31.8 g/dl (31.0-36.0); Mean Corpuscular Hemoglobin 26.8 pg (27.0-33.0); Mean Corpuscular Volume 84.3 fL (80.0-98.0); Mean Platelet Volume 11.9 fL (9.4-12.4); Monocytes Absolute Auto 0.5 X10*3/uL (0.1-1.2); Monocytes Percent Auto 5.3 % (2-11); Neutrophils Absolute Auto 8.3 x10*3/uL (2.0-8.3); Neutrophils Percent Auto 85.5 % (45-73); Platelet Count 187 X10*3/uL (160-400); Red Blood Count 4.92 X10*6/uL (4.60-5.80); Red Cell Distribution Width 15.5 % (11.0-16.0); White Blood Count 9.7 X10*3/uL (4.8-10.8)
[2022-12-02 10:55] LABS: Estimated Average Glucose 263 mg/dL; Hemoglobin A1c % 10.8 %
[2022-12-02 11:26] LABS: Erythrocyte Sedimentation Rate 19 MM/HR (0-15)
[2022-12-02 11:45] LABS: Anion Gap 13 (12-20); Blood Urea Nitrogen 26 mg/dL (9-16); C Reactive Protein 0.25 mg/dL (< or = 0.50); Calcium 8.6 mg/dL (8.4-10.2); Carbon Dioxide 14 mmol/L (22-29); Chloride 116 mmol/L (96-108); Estimated Glomerular Filt Rate 22; Glucose Random 188 mg/dL (60-115); Potassium 3.6 mmol/L (3.3-5.1); Sodium 139 mmol/L (135-145)
== END 2023-02-09 16:00 | disposition home or self-care (01) ==
LOC: HO.WCC 08:19
PROVIDERS: PCP Family Medicine; Visit Provider Physician Assistant
DX: E11.621 Type 2 diabetes mellitus with foot ulcer (principal); E11.51 Type 2 diabetes mellitus with diabetic peripheral angiopathy without gangrene; L97.412 Non-pressure chronic ulcer of right heel and midfoot with fat layer exposed; L97.413 Non-pressure chronic ulcer of right heel and midfoot with necrosis of muscle; L97.522 Non-pressure chronic ulcer of other part of left foot with fat layer exposed; L97.425 Non-pressure chronic ulcer of left heel and midfoot with muscle involvement without evidence of necrosis; E11.40 Type 2 diabetes mellitus with diabetic neuropathy, unspecified; E11.22 Type 2 diabetes mellitus with diabetic chronic kidney disease; I12.9 Hypertensive chronic kidney disease with stage 1 through stage 4 chronic kidney disease, or unspecified chronic kidney disease; N18.4 Chronic kidney disease, stage 4 (severe); Z94.0 Kidney transplant status; Z79.2 Long term (current) use of antibiotics; Z89.421 Acquired absence of other right toe(s)
CPT/HCPCS: 11042; 11043; 36415; 80048; 83036; 84134; 85025; 85652; 86140; 99214

== ENCOUNTER 2022-12-18 09:59 | Outpatient (REF) | payer MEDICAID, SELFPAY ==
[2022-12-18 12:24] LABS: Blood Urea Nitrogen 25 mg/dL (9-16); Estimated Glomerular Filt Rate 16
== END 2022-12-18 10:00 | disposition home or self-care (01) ==
LOC: HO.LAB 09:59
PROVIDERS: PCP Family Medicine; Visit Provider Radiology Vascular & Interventional Radiology
DX: R79.89 Other specified abnormal findings of blood chemistry (principal); R94.4 Abnormal results of kidney function studies
CPT/HCPCS: 36415; 82565; 84520

== ENCOUNTER 2022-12-18 18:46 | Inpatient (IN) | payer MEDICAID, SELFPAY ==
--- NOTE | ~2022-12-18 | XR_ITS ---
EXAMINATION: XR FOOT, RIGHT CLINICAL INFORMATION: Nonhealing wound at the heel COMPARISON: None available. TECHNIQUE: AP, lateral, and oblique views of the right foot. FINDINGS: There is a large soft tissue defect consistent with ulceration of the heel. No evidence of osteomyelitis however. No bone destruction or focal osteopenia or abnormal periosteal reaction of the adjacent calcaneus. Similarly the remainder of the bones of the foot are unremarkable. Patient has had a prior dictation of the fifth toe through the proximal shaft of the proximal phalange. Vascular calcifications in the soft tissues of the foot. XR/XR foot RT min 3V IMPRESSION: 1. Large soft tissue ulceration of the heel. No evidence of osteomyelitis. 2. Prior amputation of the fifth toe through the proximal shaft of the proximal phalange.
--- NOTE | 2022-12-18 18:50 | ED_ITS ---
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 Related Data Home Medications Medication Instructions Recorded Confirmed albuterol sulfate 2.5 mg/3 mL 1 amp inhalation TID PRN 08/26/21 11/02/22 (0.083 %) solution for nebulization Respiratory Distress albuterol sulfate 90 mcg/actuation 2 puff PO Q4H PRN wheezing 08/26/21 11/02/22 aerosol inhaler (ProAir HFA) amlodipine 5 mg tablet 5 mg PO DAILY 08/26/21 11/02/22 aspirin 81 mg tablet,delayed 81 mg PO DAILY 08/26/21 11/02/22 release atorvastatin 10 mg tablet 10 mg PO DAILY 08/26/21 11/02/22 calcitriol 0.5 mcg capsule 0.5 mcg PO DAILY 08/26/21 11/02/22 cholecalciferol (vitamin D3) 1,250 1 cap PO SA@1000 08/26/21 11/02/22 mcg (50,000 unit) capsule duloxetine 20 mg capsule,delayed 20 mg PO DAILY 08/26/21 11/02/22 release insulin glargine 100 unit/mL (3 48 unit subcut BEDTIME 08/26/21 11/02/22 mL) subcutaneous pen (Lantus Solostar U-100 Insulin) insulin lispro 100 unit/mL 5 unit subcut TIDWM 08/26/21 11/02/22 subcutaneous pen (Humalog KwikPen (U-100) Insulin) mupirocin 2 % topical ointment 1 appl topical TID 08/26/21 11/02/22 tacrolimus 1 mg capsule, 2 mg PO BID 08/26/21 11/02/22 immediate-release tramadol 50 mg tablet 50 mg PO Q6H PRN moderate pain 08/26/21 11/02/22 famotidine 40 mg tablet 40 mg PO BEDTIME 12/11/21 11/02/22 gabapentin 100 mg capsule 100 mg PO BEDTIME 12/11/21 11/02/22 hydroxyzine HCl 10 mg tablet 10 mg PO BID 09/24/22 11/02/22 loperamide 2 mg capsule 2 mg PO BID PRN diarrhea 09/24/22 11/02/22 trazodone 50 mg tablet 25 mg PO BEDTIME 09/24/22 11/02/22 acetaminophen 500 mg tablet 500 mg PO Q8H PRN Pain 10/20/22 11/02/22 esomeprazole magnesium 40 mg 40 mg PO DAILY@0630 10/20/22 11/02/22 capsule,delayed release miconazole nitrate 2 % topical 1 appl topical DAILY PRN Itching 10/20/22 11/02/22 powder (Antifungal (miconazole)) prednisone 10 mg tablet 10 mg PO DAILY 10/20/22 11/02/22 hydrocodone 10 mg-acetaminophen 1 tab PO Q6H PRN severe pain 11/02/22 11/02/22 325 mg tablet lidocaine 5 % topical patch 1 patch topical DAILY 11/02/22 11/02/22 Previous Rx's Medication Instructions Recorded metoprolol succinate 25 mg 25 mg PO DAILY #90 tabs 09/24/22 tablet,extended release 24 hr (Toprol XL) oxycodone 5 mg tablet 5 mg PO BID PRN severe pain (scale 10/28/22 score 7-10) #10 tabs amoxicillin 875 mg-potassium 1 tab PO BID #14 tabs 11/05/22 clavulanate 125 mg tablet doxycycline monohydrate 100 mg 100 mg PO BID #14 caps 11/05/22 capsule cephalexin 500 mg capsule 500 mg PO Q8H #21 caps 11/18/22 doxycycline hyclate 100 mg tablet 100 mg PO BID #14 tabs 11/18/22 fluconazole 100 mg tablet 100 mg PO DAILY 21 days #21 tabs 12/18/22 Allergies Allergy/AdvReac Type Severity Reaction Status Date / Time hydromorphone [From DILAUDID] Allergy Mild ITCHINESS Verified 11/02/22 17:57 diphenhydramine Allergy Unknown UNK Verified 11/02/22 17:57 [From BENADRYL] regadenoson [From Lexiscan] AdvReac Mild Itching Verified 11/02/22 17:57 Review of Systems Review of Systems: Pertinent positives and negatives as stated in [facility] Past Medical History Source: nursing notes reviewed Medical History Amputation of fifth toe of right foot Chronic hyperglycemia Diabetes Diabetic infection of right foot History of osteomyelitis HTN (hypertension) Surgical History H/O arteriovenostomy for renal dialysis Renal transplant recipient Family History Family History Other Diabetes No family history of coronary artery disease Social History Social History Household Members: None Housing: Apartment Do you presently have visiting nurse or other home services: No Alcohol intake: never Patient Tobacco Use Status: Never used Tobacco Advance Directives: Yes Advance Directives on File: Yes Advance Directives Date on File: 01/21/22 service: No Current occupational status: disabled Physical Exam ED Vital Signs: Vital Signs - 24 hr 12/18/22 18:52 12/18/22 19:54 12/18/22 19:55 Temperature 97 F Pulse Rate 86 73 74 Respiratory Rate 18 Blood Pressure 153/88 H 145/75 H 143/95 H Pulse Oximetry 99 Oxygen Delivery Method Room Air 12/18/22 19:57 12/18/22 19:58 Temperature 98.9 F Pulse Rate 75 78 Respiratory Rate 17 Blood Pressure 132/80 150/89 H Pulse Oximetry 95 Oxygen Delivery Method Room Air BMI result Body Mass Index 31.9 VITAL SIGNS: Reviewed. GENERAL: Well developed, well nourished, in no acute distress. HEAD: Normocephalic/atraumatic EYES: PERRLA, EOMI EARS: Ext canals without abnormality NOSE: Nares patent bilateral OROPHARYNX: no oral lesions noted, posterior pharynx with obvious Christine, entire oral pharynx has white plaques on the underside of the tongue on buccal mucosa as well as gingival involvement NECK: Supple, no adenopathy LUNGS: Normal breath sounds. No adventitious sounds or accessory muscle use. SpO2<95> CARDIOVASCULAR: Regular rate and rhythm without noted murmurs ABDOMEN: Soft, non-tender, non-distended with bowel sounds. MUSCULOSKELETAL: No tenderness, deformities, or effusions noted on gross inspection. EXTREMITIES: No cyanosis, clubbing or edema; RIGHT FOOT: Nonhealing ulcer that is wet appearing to the right heel, there is no surrounding erythema but there is significant fluctuance SKIN: Inspection of the skin reveals no rashes NEUROLOGIC: Alert and oriented x 4. Strength and sensation to light touch were grossly intact x 4. Course Course Course Narrative: This is an RME: Additional HPI, ROS, PE not included below will be deferred to primary provider 57 year old male hx of diabetes, arrhythmia presents w/ R foot pain atraumatic and swelling also having throat pain X 3 days. Patient is a diabetic. Reports subjective fevers and chills along with dizziness. Plan- strep Medications Administered Generic Name Dose Route Start Last Admin Trade Name Freq PRN Reason Stop Dose Admin Sodium Chloride 1,000 mls @ 999 mls/hr 12/19/22 00:30 12/19/22 00:45 Ns IV 12/19/22 01:30 999 mls/hr .Q1H1M EUNICE Administration Discontinued Medications Generic Name Dose Route Start Last Admin Trade Name Freq PRN Reason Stop Dose Admin Fluconazole 200 mg 12/18/22 22:29 12/18/22 23:18 Fluconazole 100 Mg Tablet PO 12/18/22 22:30 200 mg ONCE ONE Administration Piperacillin Sod/Tazobactam 50 mls @ 100 mls/hr 12/19/22 00:18 12/19/22 00:45 Sod 3.375 gm/ Sodium Chloride IV 12/19/22 00:47 100 mls/hr ONCE ONE Administration Lidocaine/Diphenhydr/Alum/Mg/Simeth 10 ml 12/18/22 22:29 12/18/22 23:18 Mag&Al/Sim/Diphenhyd/Lidocaine 10 Ml Oral.Susp PO 12/18/22 22:30 10 ml ONCE ONE Administration Protocol Medical Decision Making Medical Decision Making [facility] Narrative: 2229: 57-year-old male who originally informed me about his oral pharynx and throat difficulties and on my evaluation he has gross evidence of oral candidiasis as well as esophagitis secondary to candidiasis. I ordered Magic mouthwash as well as initial p.o. fluconazole. And then on reading the triage note further noted that he had actually presented with right leg pain. 2244: I went back to re-evaluate the patient an I suspect infection, likely OM, I ordered CBC/CMP/CRP as well as a foot x-ray. 0025: I have reviewed all investigations and hematologic results are significant for leukocytosis with left shift, chemistries consistent with chronic acidosis, likely secondary to poor renal function which is acute on chronic renal failure at this time. Likely will not be able to continue with fluconazole for treatment of his candidiasis. Lactic acid and and blood cultures are pending and in the meantime will order antibiotics, IV fluids. I have also discussed the case with the inpatient hospitalist who accepts admission. Differential Diagnosis Differential Diagnoses: The differential diagnosis associated with the pre sentation includes Please see the discussion above Admission/Observation Consideration of admission/observation: Escalation of care including admission/observation considered Consult Healthcare Provider Management of the patient was discussed with: Hospitalist Please see the discussion above Lab Data Please see the discussion above 12/18/22 23:17 12/18/22 23:17 Labs: Lab Results 12/18/22 12/18/22 12/18/22 Range/Units 19:07 23:13 23:17 WBC 13.6 H (4.8-10.8) X10*3/uL RBC 4.78 (4.60-5.80) X10*6/uL Hgb 12.8 L (14.0-18.0) g/dl Hct 40.5 L (42.0-52.0) % MCV 84.7 (80.0-98.0) fL MCH 26.8 L (27.0-33.0) pg MCHC 31.6 (31.0-36.0) g/dl RDW 15.9 (11.0-16.0) % Plt Count 254 D (160-400) X10*3/uL MPV 10.6 (9.4-12.4) fL Immature Gran % (Auto) 0.7 H (0.0-0.4) % Neut % (Auto) 85.8 H (45-73) % Lymph % (Auto) 6.9 L (20-40) % [place] % (Auto) 6.3 (2-11) % Eos % (Auto) 0.1 (0-4) % Baso % (Auto) 0.2 (0-2) % Lymph # (Auto) 0.9 L (1.2-4.9) X10*3/uL [place] # (Auto) 0.9 (0.1-1.2) X10*3/uL Eos # (Auto) 0.0 (0.0-0.4) X10*3/uL Baso # (Auto) 0.0 (0.0-0.2) X10*3/uL Abs Immat Gran (auto) 0.09 H (0.00-0.03) X10*3/uL Absolute Neuts (auto) 11.7 H (2.0-8.3) x10*3/uL Absolute Nucleated RBC 0.000 (0.0-0.012) X10*3/uL Nucleated RBC % (auto) 0.0 (0.0-0.2) /100WBC Sodium (135-145) mmol/L Potassium (3.3-5.1) mmol/L Chloride (96-108) mmol/L Carbon Dioxide (22-29) mmol/L Anion Gap (12-20) BUN (9-16) mg/dL Creatinine (0.5-1.4) mg/dL Estim Creat Clear Calc Estimated GFR POC Glucose 191 H (60-115) mg/dL Random Glucose (60-115) mg/dL Lactic Acid (0.5-2.0) mmol/L Calcium (8.4-10.2) mg/dL Total Bilirubin (0.0-1.0) mg/dL AST (5-37) U/L ALT (0-40) U/L Alkaline Phosphatase (39-117) U/L C-Reactive Protein (< or = 0.50) mg/dL Total Protein (6.5-8.0) g/dL Albumin (3.5-5.0) g/dL S. pyogenes GrpA EVELIO Negative (Negative) 12/18/22 12/19/22 Range/Units 23:17 00:39 WBC (4.8-10.8) X10*3/uL RBC (4.60-5.80) X10*6/uL Hgb (14.0-18.0) g/dl Hct (42.0-52.0) % MCV (80.0-98.0) fL MCH (27.0-33.0) pg MCHC (31.0-36.0) g/dl RDW (11.0-16.0) % Plt Count (160-400) X10*3/uL MPV (9.4-12.4) fL Immature Gran % (Auto) (0.0-0.4) % Neut % (Auto) (45-73) % Lymph % (Auto) (20-40) % [place] % (Auto) (2-11) % Eos % (Auto) (0-4) % Baso % (Auto) (0-2) % Lymph # (Auto) (1.2-4.9) X10*3/uL [place] # (Auto) (0.1-1.2) X10*3/uL Eos # (Auto) (0.0-0.4) X10*3/uL Baso # (Auto) (0.0-0.2) X10*3/uL Abs Immat Gran (auto) (0.00-0.03) X10*3/uL Absolute Neuts (auto) (2.0-8.3) x10*3/uL Absolute Nucleated RBC (0.0-0.012) X10*3/uL Nucleated RBC % (auto) (0.0-0.2) /100WBC Sodium 137 (135-145) mmol/L Potassium 4.2 (3.3-5.1) mmol/L Chloride 117 H (96-108) mmol/L Carbon Dioxide 12 L (22-29) mmol/L Anion Gap 12 (12-20) BUN 33 H (9-16) mg/dL Creatinine 4.03 H* (0.5-1.4) mg/dL Estim Creat Clear Calc 19.1 Estimated GFR 15 POC Glucose (60-115) mg/dL Random Glucose 218 H (60-115) mg/dL Lactic Acid 0.6 (0.5-2.0) mmol/L Calcium 8.7 (8.4-10.2) mg/dL Total Bilirubin 0.4 (0.0-1.0) mg/dL AST 10 (5-37) U/L ALT 18 (0-40) U/L Alkaline Phosphatase 100 (39-117) U/L C-Reactive Protein 0.28 (< or = 0.50) mg/dL Total Protein 6.5 (6.5-8.0) g/dL Albumin 3.4 L (3.5-5.0) g/dL S. pyogenes GrpA EVELIO (Negative) Radiology Impression Radiologist Impression: Right heel wound does not appear to abut calcaneus, otherwise my interpretation is in agreement with radiology's impression. External Record Review External record reviewed: Outpatient record and Prior outpatient labs Chronic Conditions Patient?s care impacted by: Diabetes Critical Care Time Critical Care Time Critical Care Time: Yes Total Critical Care Time: 45 Attestation: I personally attest to this time spent taking care of the patient. Discharge Plan Discharge Clinical Impression: Candidiasis of the esophagus, Candidiasis of mouth, Diabetic ulcer of foot with fat layer exposed, BEATRIZ (acute kidney injury) Patient Disposition: Admitted As Inpatient Print Language: Arabic
[2022-12-18 18:52] VITALS: BP 153/88; PULSE 86; RESP 18; TEMP 36.1; O2SAT 99; BMI 31.9
[2022-12-18 19:31] LABS: IDNOW Serial# 08D9AD1C; Strep A Nucleic Acid Negative (Negative)
[2022-12-18 19:54] VITALS: BP 145/75; PULSE 73
[2022-12-18 19:55] VITALS: BP 143/95; PULSE 74
[2022-12-18 19:57] VITALS: BP 132/80; PULSE 75
[2022-12-18 19:58] VITALS: BP 150/89; PULSE 78; RESP 17; TEMP 37.2; O2SAT 95
[2022-12-18] MEDS: Fluconazole 100 MG TABLET 200 MG PO (23:18)
[2022-12-18] MEDS: Mag&Al/Sim/Diphenhyd/Lidocaine 10 ML ORAL.SUSP PO (23:18)
[2022-12-18 23:24] LABS: Glucose, Whole Blood 191 mg/dL (60-115)
[2022-12-18 23:27] LABS: MANUAL DIFF FLAG NO
[2022-12-18 23:29] LABS: Basophils Percent Auto 0.2 % (0-2); Eosinophils Percent Auto 0.1 % (0-4); Hematocrit 40.5 % (42.0-52.0); Hemoglobin 12.8 g/dl (14.0-18.0); Imm Gran Abs Auto 0.09 X10*3/uL (0.00-0.03); Imm Gran Pct Auto 0.7 % (0.0-0.4); Lymphocytes Absolute Auto 0.9 X10*3/uL (1.2-4.9); Lymphocytes Percent Auto 6.9 % (20-40); Mean Corpuscular HGB Conc 31.6 g/dl (31.0-36.0); Mean Corpuscular Hemoglobin 26.8 pg (27.0-33.0); Mean Corpuscular Volume 84.7 fL (80.0-98.0); Mean Platelet Volume 10.6 fL (9.4-12.4); Monocytes Absolute Auto 0.9 X10*3/uL (0.1-1.2); Monocytes Percent Auto 6.3 % (2-11); Neutrophils Absolute Auto 11.7 x10*3/uL (2.0-8.3); Neutrophils Percent Auto 85.8 % (45-73); Platelet Count 254 X10*3/uL (160-400); Red Blood Count 4.78 X10*6/uL (4.60-5.80); Red Cell Distribution Width 15.9 % (11.0-16.0); White Blood Count 13.6 X10*3/uL (4.8-10.8)
[2022-12-19] VITALS (8 sets, daily range): BP systolic 137–170; BP diastolic 72–100; PULSE 67–74; RESP 18–20; TEMP 36.3–37; O2SAT 97–99; BMI 32.4
[2022-12-19 00:12] LABS: Alanine Aminotransferase 18 U/L (0-40); Albumin Level 3.4 g/dL (3.5-5.0); Alkaline Phosphatase 100 U/L (39-117); Anion Gap 12 (12-20); Aspartate Amino Transferase 10 U/L (5-37); Bilirubin Total 0.4 mg/dL (0.0-1.0); Blood Urea Nitrogen 33 mg/dL (9-16); C Reactive Protein 0.28 mg/dL (< or = 0.50); Calcium 8.7 mg/dL (8.4-10.2); Carbon Dioxide 12 mmol/L (22-29); Chloride 117 mmol/L (96-108); Creatinine Clr Calc Pharmacy 19.1; Estimated Glomerular Filt Rate 15; Glucose Random 218 mg/dL (60-115); Potassium 4.2 mmol/L (3.3-5.1); Sodium 137 mmol/L (135-145); Total Protein 6.5 g/dL (6.5-8.0)
[2022-12-19] MEDS: Piperacillin Sodium/Tazobactam 3.375 GM in 0.9 % Sodium Chloride 50 ML IV ×3 (00:45→15:53)
[2022-12-19] MEDS: 0.9 % Sodium Chloride 1,000 ML 999 ML IV (00:45)
--- NOTE | 2022-12-19 01:08 | PM.IMHP ---
History of Present Illness Date of Service: 12/19/22 Chief Complaint: Foot pain, throat pain This is a 57-year-old male with past medical history of kidney transplant on immunosuppressant, diabetes, diabetic ulcer, who comes into the hospital with complaints of throat pain and difficulty swallowing as will right heel pain.. Patient reports that for the past several days he has had difficulty with swallowing solids as well as pain in the heel. Patient reports that he follows up with wound clinic, he had wound dressing change today and was not told that he needed antibiotics but because the pain has been so severe, he decided to come to the ED. He also complaints of swallowing liquids as well as solids for the past several week worsened over the past 2 days, He states that he uses an inhaler and does not rinse his mouth after, On arrival to the ED patient hemodynamically stable Labs are significant for VC count of 13.6, creatinine of 3.83 which is significantly higher than his baseline ESR 17, CRP not elevated X-ray of the foot shows no osteomyelitis Review of Systems Review of Systems: Yes all other systems are reviewed and are negative [facility] Medical History Amputation of fifth toe of right foot Chronic hyperglycemia Diabetes Diabetic infection of right foot History of osteomyelitis HTN (hypertension) Family History Other Diabetes No family history of coronary artery disease Surgical History H/O arteriovenostomy for renal dialysis Renal transplant recipient Social History Household Members: None Housing: Apartment Do you presently have visiting nurse or other home services: No Alcohol intake: never Patient Tobacco Use Status: Never used Tobacco e-Cigarette/Vaping Use: Never Used Use of substances other than those prescribed or required for medical reasons: No Have you been hit, kicked, punched, or otherwise hurt by someone within the past year? If so, by whom?: No Do you feel safe in your current relationship?: No Current Relationship Is there a partner from a previous relationship who is making you feel unsafe now?: No Are you made to feel afraid or neglected: No Advance Directives: Yes Advance Directives on File: Yes Advance Directives Date on File: 01/21/22 Do you have thoughts of harming others: None Do you have a plan to hurt others: No Plan Recently lost weight without trying: Yes How much weight loss: 2-13 pounds Eating poorly because of decreased appetite: Yes Nutrition screen score: 4 service: No Current occupational status: disabled Meds Allergies Allergy/AdvReac Type Severity Reaction Status Date / Time hydromorphone [From DILAUDID] Allergy Mild ITCHINESS Verified 11/02/22 17:57 diphenhydramine Allergy Unknown UNK Verified 11/02/22 17:57 [From BENADRYL] regadenoson [From Lexiscan] AdvReac Mild Itching Verified 11/02/22 17:57 Active Medications: Current Medications Sodium Chloride (Ns) 1,000 mls @ 999 mls/hr IV .Q1H1M EUNICE Stop: 12/19/22 01:30 Last Admin: 12/19/22 00:45 Dose: 999 mls/hr Home Medications Medication Instructions Recorded Confirmed Last Taken Type albuterol sulfate 2.5 mg/3 mL 1 amp inhalation TID PRN 08/26/21 12/19/22 Unknown History (0.083 %) solution for nebulization Respiratory Distress albuterol sulfate 90 mcg/actuation 2 puff PO Q4H PRN wheezing 08/26/21 12/19/22 Unknown History aerosol inhaler (ProAir HFA) amlodipine 5 mg tablet 5 mg PO DAILY 08/26/21 12/19/22 12/11/21 History aspirin 81 mg tablet,delayed 81 mg PO DAILY 08/26/21 12/19/22 12/11/21 History release atorvastatin 10 mg tablet 10 mg PO DAILY 08/26/21 12/19/22 12/11/21 History calcitriol 0.5 mcg capsule 0.5 mcg PO DAILY 08/26/21 12/19/22 12/11/21 History cholecalciferol (vitamin D3) 1,250 1 cap PO SA@1000 08/26/21 12/19/22 Unknown History mcg (50,000 unit) capsule duloxetine 20 mg capsule,delayed 20 mg PO DAILY 08/26/21 12/19/22 12/11/21 History release insulin glargine 100 unit/mL (3 48 unit subcut BEDTIME 08/26/21 12/19/22 12/10/21 History mL) subcutaneous pen (Lantus Solostar U-100 Insulin) insulin lispro 100 unit/mL 5 unit subcut TIDWM 08/26/21 12/19/22 Unknown History subcutaneous pen (Humalog KwikPen (U-100) Insulin) mupirocin 2 % topical ointment 1 appl topical TID 08/26/21 12/19/22 Unknown History tacrolimus 1 mg capsule, 2 mg PO BID 08/26/21 12/19/22 12/11/21 History immediate-release tramadol 50 mg tablet 50 mg PO Q6H PRN moderate pain 08/26/21 12/19/22 Unknown History famotidine 40 mg tablet 40 mg PO BEDTIME 12/11/21 12/19/22 12/10/21 History gabapentin 100 mg capsule 100 mg PO BEDTIME 12/11/21 12/19/22 12/10/21 History hydroxyzine HCl 10 mg tablet 10 mg PO BID 09/24/22 12/19/22 Unknown History trazodone 50 mg tablet 25 mg PO BEDTIME 09/24/22 12/19/22 Unknown History acetaminophen 500 mg tablet 500 mg PO Q8H PRN Pain 10/20/22 12/19/22 Unknown History esomeprazole magnesium 40 mg 40 mg PO DAILY@0630 10/20/22 12/19/22 Unknown History capsule,delayed release miconazole nitrate 2 % topical 1 appl topical DAILY PRN Itching 10/20/22 12/19/22 Unknown History powder (Antifungal (miconazole)) prednisone 10 mg tablet 10 mg PO DAILY 10/20/22 12/19/22 Unknown History lidocaine 5 % topical patch 1 patch topical DAILY 11/02/22 12/19/22 Unknown History Physical Exam Vital Signs and Narrative: Vital Signs: Last Vital Signs Temp 98.9 F 12/18/22 19:58 Pulse 78 12/18/22 19:58 Resp 17 12/18/22 19:58 BP 150/89 H 12/18/22 19:58 Pulse Ox 95 12/18/22 19:58 O2 Del Method Room Air 12/18/22 19:58 BMI result Body Mass Index 31.9 Const: General: cooperative and no acute distress Orientation/consciousness: patient oriented x3 HEENT: Other: Candidiasis on the tongue Eyes: General: appearance normal, both eyes and all related structures Resp: Effort & Inspection: normal respiratory effort Auscultation: clear to auscultation bilaterally Cardio: Rate: regular rate Rhythm: regular rhythm GI: Palpation (GI): Soft to palpation Auscultation: normal bowel sounds Skin: General skin exam: no rashes or lesions noted Neuro: General: patient oriented x3 Cognition (Neuro): normal cognition Extrem: Other: Right heel wound, no erythema, warmth, no tenderness on palpation, drainage Results Labs 12/18/22 23:17 12/18/22 23:17 Labs: Laboratory Results - last 24 hr 12/18/22 12/18/22 12/18/22 19:07 23:13 23:17 MCV 84.7 MCH 26.8 L MCHC 31.6 RDW 15.9 Plt Count 254 D MPV 10.6 Immature Gran % (Auto) 0.7 H Neut % (Auto) 85.8 H Lymph % (Auto) 6.9 L [place] % (Auto) 6.3 Eos % (Auto) 0.1 Baso % (Auto) 0.2 Lymph # (Auto) 0.9 L [place] # (Auto) 0.9 Eos # (Auto) 0.0 Baso # (Auto) 0.0 Abs Immat Gran (auto) 0.09 H Absolute Neuts (auto) 11.7 H Absolute Nucleated RBC 0.000 Nucleated RBC % (auto) 0.0 Anion Gap Estim Creat Clear Calc Estimated GFR POC Glucose 191 H Random Glucose Lactic Acid Calcium Total Bilirubin AST ALT Alkaline Phosphatase C-Reactive Protein Total Protein Albumin S. pyogenes GrpA EVELIO Negative 12/18/22 12/19/22 23:17 00:39 MCV MCH MCHC RDW Plt Count MPV Immature Gran % (Auto) Neut % (Auto) Lymph % (Auto) [place] % (Auto) Eos % (Auto) Baso % (Auto) Lymph # (Auto) [place] # (Auto) Eos # (Auto) Baso # (Auto) Abs Immat Gran (auto) Absolute Neuts (auto) Absolute Nucleated RBC Nucleated RBC % (auto) Anion Gap 12 Estim Creat Clear Calc 19.1 Estimated GFR 15 POC Glucose Random Glucose 218 H Lactic Acid 0.6 Calcium 8.7 Total Bilirubin 0.4 AST 10 ALT 18 Alkaline Phosphatase 100 C-Reactive Protein 0.28 Total Protein 6.5 Albumin 3.4 L S. pyogenes GrpA EVELIO Imaging Radiologist's Impressions: Impressions Foot X-Ray 12/18/22 23:05 IMPRESSION: 1. Large soft tissue ulceration of the heel. No evidence of osteomyelitis. 2. Prior amputation of the fifth toe through the proximal shaft of the proximal phalange. Assessment and Plan (1) Candidiasis of the esophagus: Status: Acute (2) Candidiasis of mouth: Status: Acute (3) Diabetic ulcer of foot with fat layer exposed: Status: Acute (4) BEATRIZ (acute kidney injury): Status: Acute Plan 57-year-old male past medical history of kidney transplant on immunosuppressants presents the hospital with complaints difficulty swallowing # acute dysphagia - secondary to candidiasis of the mouth unlikely esophagus - has evidence of candidiasis on exam - patient will be treated with IV fluconazole given the severity - monitor resolution of symptoms # diabetic ulcer of foot - no evidence of acute infection - prophylactically will treat with IV antibiotics, - MRI of the foot pending # BEATRIZ - likely prerenal - treat with IV fluids - follow cultures # history of kidney transplant - continue prednisone and tacrolimus # hypertension - stable -continue antihypertensive # HLD - continue statin # GERD - continue PPI and famotidine # diabetes - sliding scale insulin - continue home insulin - diabetic diet DVT prophylaxis: Heparin subQ Given need for IV management of acute dysphagia/candidiasis, BEATRIZ needing IV fluids patient will require minimum 2 nights inpatient hospital stay for further management and monitoring Time Spent With Patient Time: Total time managing care of this patient today ____ minutes. Quality Stroke Does the patient have a stroke diagnosis?: No VTE Prior VTE?: No VTE Risk Level:: Medical - moderate - high VTE Device Contraindication: Treatment Not Indicated VTE Drug Contraindication: N/A - Med Ordered
[2022-12-19] MEDS: Lactated Ringers 1,000 ML 100 ML IVCONT ×3 (01:51→21:59)
[2022-12-19] MEDS: vancomycin/NS 2,000 MG/500 ML PLAST..BAG 250 MG IV (01:51)
[2022-12-19] MEDS: Heparin Sodium,Porcine 5,000 UNIT/ML VIAL 5000 UNIT SUBCUT ×2 (01:51→12:07)
[2022-12-19] MEDS: Famotidine 20 MG TABLET 40 MG PO ×2 (04:35→20:37)
[2022-12-19] MEDS: Gabapentin 100 MG CAPSULE PO ×2 (04:35→20:38)
[2022-12-19] MEDS: Omeprazole 20 MG CAPSULE.DR PO (06:06)
[2022-12-19 06:54] LABS: MANUAL DIFF FLAG NO
[2022-12-19 06:57] LABS: Basophils Percent Auto 0.2 % (0-2); Eosinophils Absolute Auto 0.1 X10*3/uL (0.0-0.4); Eosinophils Percent Auto 0.4 % (0-4); Hematocrit 39.7 % (42.0-52.0); Hemoglobin 12.7 g/dl (14.0-18.0); Imm Gran Pct Auto 0.8 % (0.0-0.4); Lymphocytes Absolute Auto 1.4 X10*3/uL (1.2-4.9); Lymphocytes Percent Auto 10.8 % (20-40); Mean Corpuscular Hemoglobin 27.2 pg (27.0-33.0); Mean Platelet Volume 11.2 fL (9.4-12.4); Monocytes Absolute Auto 1.2 X10*3/uL (0.1-1.2); Monocytes Percent Auto 9.2 % (2-11); Neutrophils Absolute Auto 10.2 x10*3/uL (2.0-8.3); Neutrophils Percent Auto 78.6 % (45-73); Platelet Count 242 X10*3/uL (160-400); Red Blood Count 4.67 X10*6/uL (4.60-5.80); Red Cell Distribution Width 15.9 % (11.0-16.0); White Blood Count 12.9 X10*3/uL (4.8-10.8)
[2022-12-19 07:20] LABS: Anion Gap 11 (12-20); Blood Urea Nitrogen 30 mg/dL (9-16); Calcium 8.3 mg/dL (8.4-10.2); Carbon Dioxide 12 mmol/L (22-29); Chloride 119 mmol/L (96-108); Creatinine Clr Calc Pharmacy 21.3; Estimated Glomerular Filt Rate 17; Glucose Random 173 mg/dL (60-115); Potassium 3.6 mmol/L (3.3-5.1); Sodium 138 mmol/L (135-145)
--- NOTE | 2022-12-19 08:21 | HE.PHANOTE ---
RE [facility] PATIENT IN BEATRIZ. WILL BE CONSERVATIVE AT 500 MG Q24H
[2022-12-19] MEDS: Insulin Lispro 100 UNIT/ML 3 ML VIAL SUBCUT ×2 (08:44→20:41)
[2022-12-19] MEDS: Lidocaine 4 % Patch ADH..PATCH 1 PATCH TRANSDERMA (08:44)
[2022-12-19] MEDS: hydrOXYzine HCL 10 MG TABLET PO ×2 (08:45→20:38)
[2022-12-19] MEDS: 0.9 % Sodium Chloride Flush 3 ML SYRINGE IVFLUSH ×3 (08:45→22:03)
[2022-12-19] MEDS: Tacrolimus 1 MG CAPSULE 2 MG PO ×2 (08:45→20:37)
[2022-12-19] MEDS: calcitrioL 0.25 MCG CAPSULE 0.5 MCG PO (08:45)
[2022-12-19] MEDS: Aspirin Enteric Coated 81 MG TABLET.DR PO (08:45)
[2022-12-19] MEDS: Metoprolol Succinate ER 25 MG TAB.ER.24H PO (08:45)
[2022-12-19] MEDS: amLODIPine Besylate 5 MG TABLET PO (08:46)
[2022-12-19] MEDS: predniSONE 10 MG TABLET PO (08:46)
[2022-12-19] MEDS: Atorvastatin Calcium 10 MG TABLET PO (08:46)
[2022-12-19] MEDS: DULoxetine HCl 20 MG CAPSULE.DR PO (08:46)
--- NOTE | 2022-12-19 09:12 | PHA.MEDREC ---
Pharmacy Consult ? Medication Reconciliation Pharmacy has completed the medication reconciliation. Patient had a list with him
--- NOTE | 2022-12-19 12:41 | PM.CNNEP ---
History of Present Illness Reason for Consult Consult date: 12/20/22 Chief Complaint Chief complaint: BEATRIZ, wound infection, candidiasis History of Present Illness Narrative: 57-year-old male with past medical history of kidney transplant on immunosuppressant, diabetes, diabetic ulcer, who comes into the hospital with complaints of throat pain and difficulty swallowing as will right heel pain..? Patient reports that for the past several days he has had difficulty with swallowing solids as well as pain in the heel.? Patient reports that he follows up with wound clinic, he had wound dressing change today and was not told that he needed antibiotics but because the pain has been so severe, he decided to come to the ED.? He also complaints of swallowing liquids as well as solids for the past several week worsened over the past 2 days, He states that he uses an inhaler and does not rinse his mouth after, HISTORY OF DISEASED DONOR KIDNEY TRANSPLANT ON NOV 04 2013 Review of Systems Review of Systems No headache. No nausea vomiting. No abdominal pain. No shortness of breath. No cough. No dysuria urgency or hematuria. No edema. PMFSH Past Medical History Medical History Amputation of fifth toe of right foot Chronic hyperglycemia Diabetes Diabetic infection of right foot History of osteomyelitis HTN (hypertension) Family History Family History Other Diabetes No family history of coronary artery disease Surgical History Surgical History H/O arteriovenostomy for renal dialysis Renal transplant recipient Social History Social History Household Members: None Housing: Apartment Do you presently have visiting nurse or other home services: No Alcohol intake: never Patient Tobacco Use Status: Never used Tobacco e-Cigarette/Vaping Use: Never Used Use of substances other than those prescribed or required for medical reasons: No Currently Displaying Signs/Symptoms of Drug Intoxication Withdrawal: No Have you been hit, kicked, punched, or otherwise hurt by someone within the past year? If so, by whom?: No Do you feel safe in your current relationship?: No Current Relationship Is there a partner from a previous relationship who is making you feel unsafe now?: No Are you made to feel afraid or neglected: No Advance Directives: Yes Advance Directives on File: Yes Advance Directives Date on File: 01/21/22 Do you have thoughts of harming others: None Do you have a plan to hurt others: No Plan Recently lost weight without trying: Yes How much weight loss: 2-13 pounds Eating poorly because of decreased appetite: Yes Nutrition screen score: 4 service: No Current occupational status: disabled Meds Allergies Allergy/AdvReac Type Severity Reaction Status Date / Time hydromorphone [From DILAUDID] Allergy Mild ITCHINESS Verified 11/02/22 17:57 diphenhydramine Allergy Unknown UNK Verified 11/02/22 17:57 [From BENADRYL] regadenoson [From Lexiscan] AdvReac Mild Itching Verified 11/02/22 17:57 Active Medications: Current Medications Acetaminophen (Acetaminophen 325 Mg Tablet) 650 mg PO Q6H PRN PRN Reason: Pain, Mild (Pain Scale 1-3) Albuterol Sulfate (Albuterol Sulfate (0.083%) 2.5 Mg/3 Ml Vial.[place]) 2.5 mg INHALE TID PRN PRN Reason: Respiratory Distress Albuterol Sulfate (Albuterol Sulfate 90 Mcg 8 Gm Inhaler) 2 puff INHALE Q4H PRN PRN Reason: wheezing Amlodipine Besylate (Amlodipine Besylate 5 Mg Tablet) 5 mg PO DAILY [facility]; Protocol Last Admin: 12/19/22 08:46 Dose: 5 mg Aspirin (Aspirin Enteric Coated 81 Mg Tablet.) 81 mg PO DAILY [facility] Last Admin: 12/19/22 08:45 Dose: 81 mg Atorvastatin Calcium (Atorvastatin Calcium 10 Mg Tablet) 10 mg PO DAILY [facility] Last Admin: 12/19/22 08:46 Dose: 10 mg Calcitriol (Calcitriol 0.25 Mcg Capsule) 0.5 mcg PO DAILY [facility] Last Admin: 12/19/22 08:45 Dose: 0.5 mcg Dextrose (Dextrose 50 % 25 Gm/50 Ml Syringe) 25 gm IVPUSH Q15M PRN; Protocol PRN Reason: per Hypoglycemia Standing Ord. Docusate Sodium (Docusate Sodium 100 Mg Capsule) 100 mg PO DAILY PRN PRN Reason: Constipation Duloxetine HCl (Duloxetine Hcl 20 Mg Capsule.) 20 mg PO DAILY [facility] Last Admin: 12/19/22 08:46 Dose: 20 mg Famotidine (Famotidine 20 Mg Tablet) 40 mg PO BEDTIME [facility] Last Admin: 12/19/22 04:35 Dose: 40 mg Gabapentin (Gabapentin 100 Mg Capsule) 100 mg PO BEDTIME [facility] Last Admin: 12/19/22 04:35 Dose: 100 mg Glucose (Glucose Gel 15 Gm Gel..Gram.) 15 gm PO Q15M PRN; Protocol PRN Reason: per Hypoglycemia Standing Ord. Heparin Sodium (Porcine) (Heparin Sodium,Porcine 5,000 Unit/Ml Vial) 5,000 unit SUBCUT Q12H [facility] Last Admin: 12/19/22 12:07 Dose: 5,000 unit Hydroxyzine HCl (Hydroxyzine Hcl 10 Mg Tablet) 10 mg PO BID [facility] Last Admin: 12/19/22 08:45 Dose: 10 mg Piperacillin Sod/Tazobactam (Sod 3.375 gm/ Sodium Chloride) 50 mls @ 100 mls/hr IV Q8H [facility] Last Infusion: 12/19/22 09:25 Dose: Infused Lactated Ringer's (Lr) 1,000 mls @ 100 mls/hr IVCONT .Q10H [facility] Last Admin: 12/19/22 12:06 Dose: 100 mls/hr Fluconazole (Diflucan) 200 mg in 100 mls @ 100 mls/hr IV Q24H [facility] Vancomycin HCl 500 mg/ Sodium (Chloride) 110 mls @ 110 mls/hr IV Q24H [facility] Insulin Glargine (Insulin Glargine,Hum.Rec.Anlog 100 Unit/Ml 10 Ml Vial) 48 unit SUBCUT BEDTIME [facility] Insulin Human Lispro (Insulin Lispro 100 Unit/Ml 3 Ml Vial) 5 unit SUBCUT TIDWM [facility] Last Admin: 12/19/22 11:52 Dose: Not Given Insulin Human Lispro (Insulin Lispro 100 Unit/Ml 3 Ml Vial) 0 unit SUBCUT QIDACHS [facility]; Protocol Last Admin: 12/19/22 11:49 Dose: Not Given Lidocaine (Lidocaine 4 % Patch Adh..Patch) 1 patch TRANSDERMA DAILY [facility] Last Admin: 12/19/22 08:44 Dose: 1 patch Metoprolol Succinate (Metoprolol Succinate Er 25 Mg Tab.Er.24h) 25 mg PO DAILY [facility]; Protocol Last Admin: 12/19/22 08:45 Dose: 25 mg Mupirocin (Mupirocin 1 Gm Oint...G.) 1 gm TOPICAL TID [facility]; Protocol Last Admin: 12/19/22 11:32 Dose: Not Given Non-Formulary Medication (Cholecalciferol (Vitamin D3)) 1 cap PO SA@1000 [facility] Omeprazole (Omeprazole 20 Mg Capsule.Dr) 20 mg PO DAILY@0630 [facility] Last Admin: 12/19/22 06:06 Dose: 20 mg Ondansetron HCl (Ondansetron Hcl 4 Mg/2 Ml Vial) 4 mg IVPUSH Q8H PRN PRN Reason: Nausea and Vomiting Pharmacy Consult (Consult Rx Vancomycin Dosing) 1 each MISCELLANE DAILY PRN PRN Reason: Consult order Sodium Chloride (0.9 % Sodium Chloride Flush 3 Ml Syringe) 3 ml IVFLUSH QSHIFT [facility] Last Admin: 12/19/22 08:45 Dose: 3 ml Tacrolimus (Tacrolimus 1 Mg Capsule) 2 mg PO BID [facility] Last Admin: 12/19/22 08:45 Dose: 2 mg Tramadol HCl (Tramadol Hcl 50 Mg Tablet) 50 mg PO Q6H PRN PRN Reason: moderate pain Trazodone HCl (Trazodone Hcl 25 Mg Halftab) 25 mg PO BEDTIME [facility] Last Admin: 12/19/22 04:50 Dose: Not Given Home Medications Medication Instructions Recorded Confirmed Last Taken Type albuterol sulfate 2.5 mg/3 mL 1 amp inhalation TID PRN 08/26/21 12/19/22 Unknown History (0.083 %) solution for nebulization Respiratory Distress albuterol sulfate 90 mcg/actuation 2 puff PO Q4H PRN wheezing 08/26/21 12/19/22 Unknown History aerosol inhaler (ProAir HFA) amlodipine 5 mg tablet 5 mg PO DAILY 08/26/21 12/19/22 12/11/21 History aspirin 81 mg tablet,delayed 81 mg PO DAILY 08/26/21 12/19/22 12/11/21 History release atorvastatin 10 mg tablet 10 mg PO DAILY 08/26/21 12/19/22 12/11/21 History calcitriol 0.5 mcg capsule 0.5 mcg PO DAILY 08/26/21 12/19/22 12/11/21 History cholecalciferol (vitamin D3) 1,250 1 cap PO SA@1000 08/26/21 12/19/22 Unknown History mcg (50,000 unit) capsule duloxetine 20 mg capsule,delayed 20 mg PO DAILY 08/26/21 12/19/22 12/11/21 History release insulin glargine 100 unit/mL (3 48 unit subcut BEDTIME 08/26/21 12/19/22 12/10/21 History mL) subcutaneous pen (Lantus Solostar U-100 Insulin) insulin lispro 100 unit/mL 5 unit subcut TIDWM 08/26/21 12/19/22 Unknown History subcutaneous pen (Humalog KwikPen (U-100) Insulin) tacrolimus 1 mg capsule, 2 mg PO BID 08/26/21 12/19/22 12/11/21 History immediate-release tramadol 50 mg tablet 50 mg PO Q6H PRN moderate pain 08/26/21 12/19/22 Unknown History famotidine 40 mg tablet 40 mg PO BEDTIME 12/11/21 12/19/22 12/10/21 History gabapentin 100 mg capsule 100 mg PO BEDTIME 12/11/21 12/19/22 12/10/21 History hydroxyzine HCl 10 mg tablet 10 mg PO BID 09/24/22 12/19/22 Unknown History trazodone 50 mg tablet 25 mg PO BEDTIME 09/24/22 12/19/22 Unknown History acetaminophen 500 mg tablet 500 mg PO Q8H PRN Pain 10/20/22 12/19/22 Unknown History esomeprazole magnesium 40 mg 40 mg PO DAILY@0630 10/20/22 12/19/22 Unknown History capsule,delayed release lidocaine 5 % topical patch 1 patch topical DAILY 11/02/22 12/19/22 Unknown History ferrous sulfate 325 mg (65 mg 325 mg PO QAM 12/19/22 12/19/22 Unknown History iron) tablet (FeroSul) Physical Exam Vital Signs: Last Vital Signs Temp 97.5 F 12/19/22 11:07 Pulse 67 12/19/22 11:07 Resp 20 12/19/22 11:07 BP 150/78 H 12/19/22 11:07 Pulse Ox 98 12/19/22 11:07 O2 Del Method Room Air 12/19/22 11:07 BMI result Body Mass Index 32.4 Comfortable Neck is supple Lung: Air entry equal Heart: S1,S2, normal. No rub Abd: Soft. BS + NS : Alert.No asterexis Ext: No edema Results Lab Results 12/19/22 06:15 12/19/22 06:15 Lab results: Chemistry 12/18/22 12/19/22 23:17 06:15 Sodium 137 138 Potassium 4.2 3.6 Carbon Dioxide 12 L 12 L BUN 33 H 30 H Creatinine 4.03 H* 3.64 H Calcium 8.7 8.3 L Hematology 12/18/22 12/19/22 23:17 06:15 WBC 13.6 H 12.9 H Hgb 12.8 L 12.7 L Plt Count 254 D 242 Assessment and Plan (1) BEATRIZ (acute kidney injury): Status: Acute (2) Candidiasis of mouth: Status: Acute Plan [place] HAS CHRONIC KIDNEY DISEASE status post disease donor kidney transplant in 2013. Baseline creatinine has been around 2.0-2.2 mg/dL. Over the last 4 months I have gradually increased serum creatinine. As of November 24 BUN was 40 creatinine was 3.2. At the time of admission his creatinine was 3.6 mg/dL. He has been admitted with difficulty swallowing most likely due to oral thrush. He has acute kidney injury superimposed on chronic kidney disease. Acute kidney injury could be due to dehydration. Due to poor p.o. intake. However other causes including rejection and tacro toxicity should be considered. For now I concur with treating oral thrush. Increase oral intake. Check tacrolimus levels. Continue to avoid nephrotoxic agents. Check urine for protein creatinine ratio and repeat urinalysis. He may need a transplant biopsy and I will check with my team. Add sodium bicarbonate p.o. to correct acidosis. Time Spent With Patient Time: Total time managing care of this patient today ____ minutes. Procedures Date of Service Date of Service: 12/20/22
--- NOTE | 2022-12-19 14:51 | PM.EVENT ---
Event Note Date of Service: 12/19/22 Event Note: chart reviewed patient examined. Agree with history and physical and assessment and plan as outlined. Time Spent With Patient Time: Total time managing care of this patient today ____ minutes.
[2022-12-19] MEDS: traZODone HCL 25 MG HALFTAB PO (20:38)
[2022-12-19] MEDS: traMADoL HCL 50 MG TABLET PO (20:40)
[2022-12-19] MEDS: Insulin Glargine,Hum.rec.anlog 100 UNIT/ML 10 ML VIAL 48 UNIT SUBCUT (20:40)
[2022-12-19] MEDS: Fluconazole in NaCl,Iso-Osm 200 MG/100 ML PIGGYBACK 100 MG IV (21:59)
[2022-12-19] MEDS: vancomycin HCL 500 MG in 0.9 % Sodium Chloride 100 ML 110 MG IV (23:08)
--- NOTE | 2022-12-19 23:30 | PC.NURSE ---
Pt requesting immodium after reporting 4 watery loose BMs today. MD notified. C-Diff sample ordered and collected. Results negative. MD notified. 1x dose immodium ordered.
[2022-12-20] MEDS: Piperacillin Sodium/Tazobactam 3.375 GM in 0.9 % Sodium Chloride 50 ML IV ×2 (00:31→09:21)
[2022-12-20] MEDS: Heparin Sodium,Porcine 5,000 UNIT/ML VIAL 5000 UNIT SUBCUT ×2 (00:31→11:25)
[2022-12-20 03:51] VITALS: BP 120/89; PULSE 66; RESP 18; TEMP 36.8; O2SAT 98
[2022-12-20] MEDS: Omeprazole 20 MG CAPSULE.DR PO (06:31)
[2022-12-20 07:15] LABS: MANUAL DIFF FLAG NO
[2022-12-20 07:17] VITALS: BP 140/80; PULSE 72; RESP 20; TEMP 36.7; O2SAT 96
[2022-12-20 07:26] LABS: Basophils Absolute Auto 0.1 X10*3/uL (0.0-0.2); Basophils Percent Auto 0.4 % (0-2); Eosinophils Absolute Auto 0.1 X10*3/uL (0.0-0.4); Eosinophils Percent Auto 0.5 % (0-4); Hematocrit 37.5 % (42.0-52.0); Hemoglobin 12.2 g/dl (14.0-18.0); Imm Gran Abs Auto 0.05 X10*3/uL (0.00-0.03); Imm Gran Pct Auto 0.4 % (0.0-0.4); Lymphocytes Absolute Auto 1.5 X10*3/uL (1.2-4.9); Lymphocytes Percent Auto 12.4 % (20-40); Mean Corpuscular HGB Conc 32.5 g/dl (31.0-36.0); Mean Corpuscular Hemoglobin 26.9 pg (27.0-33.0); Mean Corpuscular Volume 82.6 fL (80.0-98.0); Mean Platelet Volume 10.5 fL (9.4-12.4); Monocytes Absolute Auto 1.1 X10*3/uL (0.1-1.2); Neutrophils Absolute Auto 9.3 x10*3/uL (2.0-8.3); Neutrophils Percent Auto 77.3 % (45-73); Platelet Count 223 X10*3/uL (160-400); Red Blood Count 4.54 X10*6/uL (4.60-5.80); Red Cell Distribution Width 15.9 % (11.0-16.0)
[2022-12-20] MEDS: Glucose Gel 15 GM GEL..GRAM. PO ×2 (07:40→07:59)
[2022-12-20 07:57] LABS: Alanine Aminotransferase 27 U/L (0-40); Albumin Level 2.9 g/dL (3.5-5.0); Alkaline Phosphatase 100 U/L (39-117); Aspartate Amino Transferase 65 U/L (5-37); Bilirubin Total 0.4 mg/dL (0.0-1.0); Blood Urea Nitrogen 26 mg/dL (9-16); Calcium 8.5 mg/dL (8.4-10.2); Creatinine Clr Calc Pharmacy 24.8; Estimated Glomerular Filt Rate 21; Glucose Fasting 67 mg/dL (60-99); Total Protein 5.5 g/dL (6.5-8.0)
[2022-12-20 08:13] LABS: Anion Gap 14 (12-20); Carbon Dioxide 13 mmol/L (22-29); Chloride 116 mmol/L (96-108); Potassium 3.3 mmol/L (3.3-5.1); Sodium 140 mmol/L (135-145)
[2022-12-20] MEDS: Aspirin Enteric Coated 81 MG TABLET.DR PO (09:19)
[2022-12-20] MEDS: Atorvastatin Calcium 10 MG TABLET PO (09:19)
[2022-12-20] MEDS: DULoxetine HCl 20 MG CAPSULE.DR PO (09:19)
[2022-12-20] MEDS: hydrOXYzine HCL 10 MG TABLET PO ×2 (09:19→20:18)
[2022-12-20] MEDS: Metoprolol Succinate ER 25 MG TAB.ER.24H PO (09:19)
[2022-12-20] MEDS: amLODIPine Besylate 5 MG TABLET PO (09:19)
[2022-12-20] MEDS: calcitrioL 0.25 MCG CAPSULE 0.5 MCG PO (09:20)
[2022-12-20] MEDS: Tacrolimus 1 MG CAPSULE 2 MG PO ×2 (09:21→20:18)
[2022-12-20] MEDS: Lactated Ringers 1,000 ML 100 ML IVCONT ×2 (09:25→17:20)
[2022-12-20] MEDS: Lidocaine 4 % Patch ADH..PATCH 1 PATCH TRANSDERMA (09:25)
--- NOTE | 2022-12-20 10:06 | MHC.CM.PN ---
EMR REVIEWED, PT ADMITTED W/BEATRIZ/WOUND INFECTION AND CANDIDIASIS OF MOUTH, CM MET W/PT VIA PLASTIC FINISHER, PT REPORTS HE LIVES ALONE, USES A CANE BUT ALSO HAS WALKER AT HOME, PT REPORTS HE HAS [facility] AND [facility] [place] AP[facility] IS ON 01/01. PT REPORTS HE WOULD LIKE ASSISTANCE W/CLEANING D/T FOOT WOUND, [facility] DISCUSSED W/PT AND PT AGREEABLE, TASK HAS BEEN SENT VIA Converser. PT VERIFIES PCP IS [facility], FULLY VACC AGAINST COVID W/MODERNA AND HCP IS PT'S MOTHER VÍCTOR CHUA [phone] AND COPY ON FILE FROM PREVIOUS ADMIT. ANTIC DCP HOME W/RESUMP OF [facility], PT'S CAR IS IN LOT AND WILL SELF TRANSPORT
--- NOTE | 2022-12-20 10:38 | PC.NURSE ---
During 07:30 am poc round VANCE Godfrey informed me that patient has a poc resulting in glucose of 66. I asked VANCE to provides patient with a cup of apple juice and recheck patient in 15 minutes. Patient drank 120 ounces of apple juice and after 15 minutes. Patient poc reading was 53. patient stated he felt dizziness, all other vitals since were in normal range. Patient is alert and responsive to self, time, place , and event. Per hypoglycemic protocol 15 gram of a glucose was given at 7:43 see MAR record. 15 minutes later point of care repeated resulting in a glucose of 63. repeated administration of second dose of 15 grams of glucose see MAR. Patient received breakfast tray and encouraged to drink another 120 ounces of apple juice. Waited 15 minutes to repeat poc resulting in 107. Patient remained alert and oriented x 4 and dizziness stopped. Frequent rounding to maintain safety. Patient call valles in place and bed alarm on.
[2022-12-20 11:08] VITALS: BP 143/86; PULSE 69; RESP 18; TEMP 36.7; O2SAT 97
--- NOTE | 2022-12-20 11:21 | HO.PM.IMPN ---
Subjective Subjective Date of Service: 12/20/22 Interval History: no acute issues overnight. Creatinine trending down Review of Systems via american sign language interpreter Denies chest pain Denies shortness of breath Denies nausea vomiting diarrhea Denies fever chills Physical Exam Vital Signs: Vital Signs: Last Vital Signs Temp 98.0 F 12/20/22 11:08 Pulse 69 12/20/22 11:08 Resp 18 12/20/22 11:08 BP 143/86 H 12/20/22 11:08 Pulse Ox 97 12/20/22 11:08 O2 Del Method Room Air 12/20/22 11:08 BMI result Body Mass Index 32.4 Const: Other: awake alert no acute distress Resp: Other: clear to auscultation bilaterally no rales rhonchi or wheezes Cardio: Other: no S4; positive S1-S2; no S3 murmurs rubs or gallops GI: Other: soft nontender nondistended normoactive bowel sounds Extrem: Other: nonhealing ulcer right heel we P but without surrounding erythema Objective Data Active Medications Acetaminophen (Acetaminophen 325 Mg Tablet) 650 mg PO Q6H PRN PRN Reason: Pain, Mild (Pain Scale 1-3) Albuterol Sulfate (Albuterol Sulfate (0.083%) 2.5 Mg/3 Ml Vial.Neb) 2.5 mg INHALE TID PRN PRN Reason: Respiratory Distress Albuterol Sulfate (Albuterol Sulfate 90 Mcg 8 Gm Inhaler) 2 puff INHALE Q4H PRN PRN Reason: wheezing Amlodipine Besylate (Amlodipine Besylate 5 Mg Tablet) 5 mg PO DAILY [facility]; Protocol Last Admin: 12/20/22 09:19 Dose: 5 mg Documented By: TAVO Aspirin (Aspirin Enteric Coated 81 Mg Tablet.) 81 mg PO DAILY [facility] Last Admin: 12/20/22 09:19 Dose: 81 mg Documented By: TAVO Atorvastatin Calcium (Atorvastatin Calcium 10 Mg Tablet) 10 mg PO DAILY [facility] Last Admin: 12/20/22 09:19 Dose: 10 mg Documented By: TAVO Calcitriol (Calcitriol 0.25 Mcg Capsule) 0.5 mcg PO DAILY [facility] Last Admin: 12/20/22 09:20 Dose: 0.5 mcg Documented By: TAVO Dextrose (Dextrose 50 % 25 Gm/50 Ml Syringe) 25 gm IVPUSH Q15M PRN; Protocol PRN Reason: per Hypoglycemia Standing Ord. Docusate Sodium (Docusate Sodium 100 Mg Capsule) 100 mg PO DAILY PRN PRN Reason: Constipation Duloxetine HCl (Duloxetine Hcl 20 Mg Capsule.Dr) 20 mg PO DAILY [facility] Last Admin: 12/20/22 09:19 Dose: 20 mg Documented By: TAVO Famotidine (Famotidine 20 Mg Tablet) 40 mg PO BEDTIME [facility] Last Admin: 12/19/22 20:37 Dose: 40 mg Documented By: ROOSEVELT Gabapentin (Gabapentin 100 Mg Capsule) 100 mg PO BEDTIME [facility] Last Admin: 12/19/22 20:38 Dose: 100 mg Documented By: ROOSEVELT Glucose (Glucose Gel 15 Gm Gel..Gram.) 15 gm PO Q15M PRN; Protocol PRN Reason: per Hypoglycemia Standing Ord. Last Admin: 12/20/22 07:59 Dose: 15 gm Documented By: TAVO Heparin Sodium (Porcine) (Heparin Sodium,Porcine 5,000 Unit/Ml Vial) 5,000 unit SUBCUT Q12H [facility] Last Admin: 12/20/22 00:31 Dose: 5,000 unit Documented By: ROOSEVELT Hydroxyzine HCl (Hydroxyzine Hcl 10 Mg Tablet) 10 mg PO BID [facility] Last Admin: 12/20/22 09:19 Dose: 10 mg Documented By: TAVO Piperacillin Sod/Tazobactam (Sod 3.375 gm/ Sodium Chloride) 50 mls @ 100 mls/hr IV Q8H [facility] Last Infusion: 12/20/22 10:03 Dose: 0 mls/hr Documented By: TAVO Lactated Ringer's (Lr) 1,000 mls @ 100 mls/hr IVCONT .Q10H [facility] Last Admin: 12/20/22 09:25 Dose: 100 mls/hr Documented By: TAVO Fluconazole (Diflucan) 200 mg in 100 mls @ 100 mls/hr IV Q24H [facility] Last Infusion: 12/19/22 23:07 Dose: 0 mls/hr Documented By: ROOSEVELT Vancomycin HCl 500 mg/ Sodium (Chloride) 110 mls @ 110 mls/hr IV Q24H [facility] Last Infusion: 12/20/22 00:19 Dose: 0 mls/hr Documented By: ROOSEVELT Insulin Glargine (Insulin Glargine,Hum.Rec.Anlog 100 Unit/Ml 10 Ml Vial) 48 unit SUBCUT BEDTIME [facility] Last Admin: 12/19/22 20:40 Dose: 48 unit Documented By: ROOSEVELT Insulin Human Lispro (Insulin Lispro 100 Unit/Ml 3 Ml Vial) 5 unit SUBCUT TIDWM [facility] Last Admin: 12/20/22 11:07 Dose: Not Given Documented By: TAVO Non-Admin Reason: No Insulin Coverage Insulin Human Lispro (Insulin Lispro 100 Unit/Ml 3 Ml Vial) 0 unit SUBCUT QIDACHS [facility]; Protocol Last Admin: 12/20/22 11:09 Dose: Not Given Documented By: TAVO Non-Admin Reason: No Insulin Coverage Lidocaine (Lidocaine 4 % Patch Adh..Patch) 1 patch TRANSDERMA DAILY [facility] Last Admin: 12/20/22 09:25 Dose: 1 patch Documented By: TAVO Metoprolol Succinate (Metoprolol Succinate Er 25 Mg Tab.Er.24h) 25 mg PO DAILY [facility]; Protocol Last Admin: 12/20/22 09:19 Dose: 25 mg Documented By: TAVO Mupirocin (Mupirocin 2 % Oint 22 Gm Tube) 1 appl TOPICAL TID [facility]; Protocol Non-Formulary Medication (Cholecalciferol (Vitamin D3)) 1 cap PO SA@1000 [facility] Omeprazole (Omeprazole 20 Mg Capsule.) 20 mg PO DAILY@0630 [facility] Last Admin: 12/20/22 06:31 Dose: 20 mg Documented By: ROOSEVELT Ondansetron HCl (Ondansetron Hcl 4 Mg/2 Ml Vial) 4 mg IVPUSH Q8H PRN PRN Reason: Nausea and Vomiting Pharmacy Consult (Consult Rx Vancomycin Dosing) 1 each MISCELLANE DAILY PRN PRN Reason: Consult order Sodium Bicarbonate (Sodium Bicarbonate 650 Mg Tablet) 650 mg PO TID [facility] Last Admin: 12/20/22 09:19 Dose: 650 mg Documented By: TAVO Sodium Chloride (0.9 % Sodium Chloride Flush 3 Ml Syringe) 3 ml IVFLUSH QSHIFT [facility] Last Admin: 12/20/22 09:21 Dose: Not Given Documented By: TAVO Non-Admin Reason: IV Running Tacrolimus (Tacrolimus 1 Mg Capsule) 2 mg PO BID [facility] Last Admin: 12/20/22 09:21 Dose: 2 mg Documented By: TAVO Tramadol HCl (Tramadol Hcl 50 Mg Tablet) 50 mg PO Q6H PRN PRN Reason: moderate pain Last Admin: 12/19/22 20:40 Dose: 50 mg Documented By: ROOSEVELT Trazodone HCl (Trazodone Hcl 25 Mg Halftab) 25 mg PO BEDTIME [facility] Last Admin: 12/19/22 20:38 Dose: 25 mg Documented By: ROOSEVELT Labs 12/20/22 07:00 12/20/22 07:00 Labs: Laboratory Results - last 24 hr 12/19/22 12/19/22 12/19/22 15:15 15:55 19:52 MCV MCH MCHC RDW Plt Count MPV Immature Gran % (Auto) Neut % (Auto) Lymph % (Auto) [place] % (Auto) Eos % (Auto) Baso % (Auto) Lymph # (Auto) [place] # (Auto) Eos # (Auto) Baso # (Auto) Abs Immat Gran (auto) Absolute Neuts (auto) Absolute Nucleated RBC Nucleated RBC % (auto) Anion Gap Estim Creat Clear Calc Estimated GFR POC Glucose 99 225 H Fasting Glucose Calcium Total Bilirubin AST ALT Alkaline Phosphatase Total Protein Albumin U Random Total Protein 9 Urine Creatinine 37.72 C. difficile Tox B Gene 12/19/22 12/20/22 12/20/22 22:12 07:00 07:00 MCV 82.6 MCH 26.9 L MCHC 32.5 RDW 15.9 Plt Count 223 MPV 10.5 Immature Gran % (Auto) 0.4 Neut % (Auto) 77.3 H Lymph % (Auto) 12.4 L [place] % (Auto) 9.0 Eos % (Auto) 0.5 Baso % (Auto) 0.4 Lymph # (Auto) 1.5 [place] # (Auto) 1.1 Eos # (Auto) 0.1 Baso # (Auto) 0.1 Abs Immat Gran (auto) 0.05 H Absolute Neuts (auto) 9.3 H Absolute Nucleated RBC 0.000 Nucleated RBC % (auto) 0.0 Anion Gap 14 Estim Creat Clear Calc 24.8 Estimated GFR 21 POC Glucose Fasting Glucose 67 Calcium 8.5 Total Bilirubin 0.4 AST 65 H ALT 27 Alkaline Phosphatase 100 Total Protein 5.5 L Albumin 2.9 L U Random Total Protein Urine Creatinine C. difficile Tox B Gene NEGATIVE 12/20/22 12/20/22 12/20/22 07:03 07:36 07:56 MCV MCH MCHC RDW Plt Count MPV Immature Gran % (Auto) Neut % (Auto) Lymph % (Auto) [place] % (Auto) Eos % (Auto) Baso % (Auto) Lymph # (Auto) [place] # (Auto) Eos # (Auto) Baso # (Auto) Abs Immat Gran (auto) Absolute Neuts (auto) Absolute Nucleated RBC Nucleated RBC % (auto) Anion Gap Estim Creat Clear Calc Estimated GFR POC Glucose 66 59 L* 63 Fasting Glucose Calcium Total Bilirubin AST ALT Alkaline Phosphatase Total Protein Albumin U Random Total Protein Urine Creatinine C. difficile Tox B Gene 12/20/22 12/20/22 08:15 10:57 MCV MCH MCHC RDW Plt Count MPV Immature Gran % (Auto) Neut % (Auto) Lymph % (Auto) [place] % (Auto) Eos % (Auto) Baso % (Auto) Lymph # (Auto) [place] # (Auto) Eos # (Auto) Baso # (Auto) Abs Immat Gran (auto) Absolute Neuts (auto) Absolute Nucleated RBC Nucleated RBC % (auto) Anion Gap Estim Creat Clear Calc Estimated GFR POC Glucose 106 137 H Fasting Glucose Calcium Total Bilirubin AST ALT Alkaline Phosphatase Total Protein Albumin U Random Total Protein Urine Creatinine C. difficile Tox B Gene Microbiology Microbiology Results: Microbiology 12/19/22 00:39 Blood Culture - Preliminary Blood - Venous No growth after 24 hours. 12/19/22 00:39 Blood Culture - Preliminary Blood - Venous No growth after 24 hours. 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 fluconazole to complete course - encouraged rinsing after inhalers 2.Diabetic ulcer of foot - no evidence of acute infection...ESR/CRP flat. - prophylactically will treat with IV antibiotics, - MRI of the foot pending... given renal function will DC antibiotics as doubtful this is osteo 3.BEATRIZ - resolving -follow renals/divalents 4.History of kidney transplant - continue prednisone and tacrolimus -as per renal 5.Hypertension - acceptable control on current therapies - adjust as indicated 6.Diabetes Mellitus II - acceptable control on current therapies - Lispro correctional scale - adjust as indicated requires ongoing hospitalization to monitor renal function in backdrop of kidney transplant Time Spent With Patient Time: Total time managing care of this patient today ____ minutes. Quality Stroke Does the patient have a stroke diagnosis?: No VTE Prior VTE?: No VTE Risk Level:: Medical - moderate - high VTE Device Contraindication: Treatment Not Indicated VTE Drug Contraindication: N/A - Med Ordered
--- NOTE | 2022-12-20 12:57 | PM.PNNEP ---
Subjective Subjective Date of Service: 12/22/22 Interval history: Feels better today. Able to swallow and had his lunch Physical Exam Vital Signs: Vital Signs: Last Vital Signs Temp 98.0 F 12/20/22 11:08 Pulse 69 12/20/22 11:08 Resp 18 12/20/22 11:08 BP 143/86 H 12/20/22 11:08 Pulse Ox 97 12/20/22 11:08 O2 Del Method Room Air 12/20/22 11:08 BMI result Body Mass Index 32.4 Const: Other: awake alert no acute distress General: cooperative and no acute distress Orientation/consciousness: patient oriented x3 HEENT: Other: Candidiasis on the tongue Eyes: General: appearance normal, both eyes and all related structures Resp: Other: clear to auscultation bilaterally no rales rhonchi or wheezes Effort & Inspection: normal respiratory effort Auscultation: clear to auscultation bilaterally Cardio: Other: no S4; positive S1-S2; no S3 murmurs rubs or gallops Rate: regular rate Rhythm: regular rhythm GI: Other: soft nontender nondistended normoactive bowel sounds Palpation (GI): Soft to palpation Auscultation: normal bowel sounds Skin: General skin exam: no rashes or lesions noted Neuro: General: patient oriented x3 Cognition (Neuro): normal cognition Extrem: Other: nonhealing ulcer right heel we P but without surrounding erythema Objective Data Labs 12/20/22 07:00 12/20/22 07:00 Labs: Laboratory Results - last 24 hr 12/19/22 12/19/22 12/19/22 15:15 15:55 19:52 WBC RBC Hgb Hct MCV MCH MCHC RDW Plt Count MPV Immature Gran % (Auto) Neut % (Auto) Lymph % (Auto) [place] % (Auto) Eos % (Auto) Baso % (Auto) Lymph # (Auto) [place] # (Auto) Eos # (Auto) Baso # (Auto) Abs Immat Gran (auto) Absolute Neuts (auto) Absolute Nucleated RBC Nucleated RBC % (auto) Sodium Potassium Chloride Carbon Dioxide Anion Gap BUN Creatinine Estim Creat Clear Calc Estimated GFR POC Glucose 99 225 H Fasting Glucose Calcium Total Bilirubin AST ALT Alkaline Phosphatase Total Protein Albumin U Random Total Protein 9 Urine Creatinine 37.72 C. difficile Tox B Gene 12/19/22 12/20/22 12/20/22 22:12 07:00 07:00 WBC 12.0 H RBC 4.54 L Hgb 12.2 L Hct 37.5 L MCV 82.6 MCH 26.9 L MCHC 32.5 RDW 15.9 Plt Count 223 MPV 10.5 Immature Gran % (Auto) 0.4 Neut % (Auto) 77.3 H Lymph % (Auto) 12.4 L [place] % (Auto) 9.0 Eos % (Auto) 0.5 Baso % (Auto) 0.4 Lymph # (Auto) 1.5 [place] # (Auto) 1.1 Eos # (Auto) 0.1 Baso # (Auto) 0.1 Abs Immat Gran (auto) 0.05 H Absolute Neuts (auto) 9.3 H Absolute Nucleated RBC 0.000 Nucleated RBC % (auto) 0.0 Sodium 140 Potassium 3.3 Chloride 116 H Carbon Dioxide 13 L Anion Gap 14 BUN 26 H Creatinine 3.13 H Estim Creat Clear Calc 24.8 Estimated GFR 21 POC Glucose Fasting Glucose 67 Calcium 8.5 Total Bilirubin 0.4 AST 65 H ALT 27 Alkaline Phosphatase 100 Total Protein 5.5 L Albumin 2.9 L U Random Total Protein Urine Creatinine C. difficile Tox B Gene NEGATIVE 12/20/22 12/20/22 12/20/22 07:03 07:36 07:56 WBC RBC Hgb Hct MCV MCH MCHC RDW Plt Count MPV Immature Gran % (Auto) Neut % (Auto) Lymph % (Auto) [place] % (Auto) Eos % (Auto) Baso % (Auto) Lymph # (Auto) [place] # (Auto) Eos # (Auto) Baso # (Auto) Abs Immat Gran (auto) Absolute Neuts (auto) Absolute Nucleated RBC Nucleated RBC % (auto) Sodium Potassium Chloride Carbon Dioxide Anion Gap BUN Creatinine Estim Creat Clear Calc Estimated GFR POC Glucose 66 59 L* 63 Fasting Glucose Calcium Total Bilirubin AST ALT Alkaline Phosphatase Total Protein Albumin U Random Total Protein Urine Creatinine C. difficile Tox B Gene 12/20/22 12/20/22 08:15 10:57 WBC RBC Hgb Hct MCV MCH MCHC RDW Plt Count MPV Immature Gran % (Auto) Neut % (Auto) Lymph % (Auto) [place] % (Auto) Eos % (Auto) Baso % (Auto) Lymph # (Auto) [place] # (Auto) Eos # (Auto) Baso # (Auto) Abs Immat Gran (auto) Absolute Neuts (auto) Absolute Nucleated RBC Nucleated RBC % (auto) Sodium Potassium Chloride Carbon Dioxide Anion Gap BUN Creatinine Estim Creat Clear Calc Estimated GFR POC Glucose 106 137 H Fasting Glucose Calcium Total Bilirubin AST ALT Alkaline Phosphatase Total Protein Albumin U Random Total Protein Urine Creatinine C. difficile Tox B Gene Microbiology Microbiology Results: Microbiology 12/19/22 00:39 Blood - Venous Blood Culture - Preliminary No growth after 24 hours. 12/19/22 00:39 Blood - Venous Blood Culture - Preliminary No growth after 24 hours. Procedures Date of Service Date of Service: 12/22/22 Assessment & Plan Assessment and plan (1) BEATRIZ (acute kidney injury): Status: Acute (2) Candidiasis of mouth: Status: Acute Plan [place] HAS CHRONIC KIDNEY DISEASE status post disease donor kidney transplant in 2013. Baseline creatinine has been around 2.0-2.2 mg/dL. Over the last 4 months I have gradually increased serum creatinine. As of November 24 BUN was 40 creatinine was 3.2. At the time of admission his creatinine was 3.6 mg/dL. He has been admitted with difficulty swallowing most likely due to oral thrush. He has acute kidney injury superimposed on chronic kidney disease. Acute kidney injury could be due to dehydration. Due to poor p.o. intake. However other causes including rejection and tacro toxicity should be considered. For now I concur with treating oral thrush. Increase oral intake. Check tacrolimus levels. Continue to avoid nephrotoxic agents. At risk for vanco toxicity. Follow levels closely and adjust dose accordingly. If the creatinine does not return returned to baseline he would require a kidney biopsy. sodium bicarbonate p.o. to correct acidosis. Time Spent With Patient Time: Total time managing care of this patient today ____ minutes. Progress Note: Quality Stroke Does the patient have a stroke diagnosis?: No
[2022-12-20 15:23] VITALS: BP 154/91; PULSE 71; RESP 20; TEMP 37.1; O2SAT 96
--- NOTE | 2022-12-20 16:53 | PC.NURSE ---
patient lost peripheral Iv access at 16:55, LR paused temporarily until access is regained.
[2022-12-20 19:17] VITALS: BP 138/82; PULSE 73; RESP 18; TEMP 37.2; O2SAT 97
[2022-12-20] MEDS: Gabapentin 100 MG CAPSULE PO (20:18)
[2022-12-20] MEDS: Famotidine 20 MG TABLET 40 MG PO (20:18)
[2022-12-20] MEDS: traZODone HCL 25 MG HALFTAB PO (20:18)
[2022-12-20 21:57] LABS: Vancomycin Random 15.7 mcg/mL (15-20)
[2022-12-21] VITALS (7 sets, daily range): BP systolic 130–157; BP diastolic 78–89; PULSE 72–93; RESP 17–20; TEMP 36.4–37.7; O2SAT 94–100
[2022-12-21] MEDS: Heparin Sodium,Porcine 5,000 UNIT/ML VIAL 5000 UNIT SUBCUT ×2 (01:12→12:05)
[2022-12-21] MEDS: Omeprazole 20 MG CAPSULE.DR PO (05:52)
[2022-12-21 06:38] LABS: MANUAL DIFF FLAG NO
[2022-12-21 07:07] LABS: Basophils Absolute Auto 0.1 X10*3/uL (0.0-0.2); Basophils Percent Auto 0.5 % (0-2); Eosinophils Absolute Auto 0.1 X10*3/uL (0.0-0.4); Eosinophils Percent Auto 1.2 % (0-4); Hematocrit 39.4 % (42.0-52.0); Hemoglobin 12.9 g/dl (14.0-18.0); Imm Gran Abs Auto 0.06 X10*3/uL (0.00-0.03); Imm Gran Pct Auto 0.6 % (0.0-0.4); Lymphocytes Percent Auto 19.7 % (20-40); Mean Corpuscular HGB Conc 32.7 g/dl (31.0-36.0); Mean Corpuscular Hemoglobin 27.3 pg (27.0-33.0); Mean Corpuscular Volume 83.5 fL (80.0-98.0); Mean Platelet Volume 10.6 fL (9.4-12.4); Monocytes Absolute Auto 1.1 X10*3/uL (0.1-1.2); Monocytes Percent Auto 11.1 % (2-11); Neutrophils Absolute Auto 6.8 x10*3/uL (2.0-8.3); Neutrophils Percent Auto 66.9 % (45-73); Platelet Count 247 X10*3/uL (160-400); Red Blood Count 4.72 X10*6/uL (4.60-5.80); Red Cell Distribution Width 15.8 % (11.0-16.0); White Blood Count 10.1 X10*3/uL (4.8-10.8)
[2022-12-21 07:15] LABS: Alanine Aminotransferase 28 U/L (0-40); Albumin Level 2.9 g/dL (3.5-5.0); Alkaline Phosphatase 114 U/L (39-117); Anion Gap 13 (12-20); Aspartate Amino Transferase 20 U/L (5-37); Bilirubin Total 0.5 mg/dL (0.0-1.0); Blood Urea Nitrogen 22 mg/dL (9-16); Calcium 8.5 mg/dL (8.4-10.2); Carbon Dioxide 19 mmol/L (22-29); Chloride 112 mmol/L (96-108); Estimated Glomerular Filt Rate 22; Potassium 3.8 mmol/L (3.3-5.1); Sodium 140 mmol/L (135-145); Total Protein 6.1 g/dL (6.5-8.0)
[2022-12-21 07:32] LABS: Glucose Fasting 58 mg/dL (60-99)
[2022-12-21] MEDS: hydrOXYzine HCL 10 MG TABLET PO ×2 (07:42→21:10)
[2022-12-21] MEDS: traMADoL HCL 50 MG TABLET PO ×3 (07:42→23:16)
[2022-12-21] MEDS: calcitrioL 0.25 MCG CAPSULE 0.5 MCG PO (07:42)
[2022-12-21] MEDS: Metoprolol Succinate ER 25 MG TAB.ER.24H PO (07:42)
[2022-12-21] MEDS: amLODIPine Besylate 5 MG TABLET PO (07:42)
[2022-12-21] MEDS: Aspirin Enteric Coated 81 MG TABLET.DR PO (07:42)
[2022-12-21] MEDS: Tacrolimus 1 MG CAPSULE 2 MG PO ×2 (07:42→21:10)
[2022-12-21] MEDS: DULoxetine HCl 20 MG CAPSULE.DR PO (07:42)
[2022-12-21] MEDS: Atorvastatin Calcium 10 MG TABLET PO (07:42)
[2022-12-21] MEDS: 0.9 % Sodium Chloride Flush 3 ML SYRINGE IVFLUSH ×3 (07:43→21:11)
[2022-12-21] MEDS: Lidocaine 4 % Patch ADH..PATCH 1 PATCH TRANSDERMA (07:43)
--- NOTE | 2022-12-21 10:16 | MHC.CM.PN ---
Per ROUNDS discussion, Patient is not yet medically cleared for dc (Creatinine is trending down); Home with services is the goal and CM will continue to follow.
--- NOTE | 2022-12-21 15:13 | PC.NURSE ---
pt off floor to MRI at this time
--- NOTE | 2022-12-21 15:21 | HO.PM.IMPN ---
Subjective Subjective Date of Service: 12/21/22 Interval History: no acute issues overnight. Remains afebrile Review of Systems via interpreter translator Denies chest pain Denies shortness of breath Denies nausea vomiting diarrhea Denies fever chills Physical Exam Vital Signs: Vital Signs: Last Vital Signs Temp 97.8 F 12/21/22 15:06 Pulse 82 12/21/22 15:06 Resp 17 12/21/22 15:06 BP 137/79 12/21/22 15:06 Pulse Ox 96 12/21/22 15:06 O2 Del Method Room Air 12/21/22 15:06 BMI result Body Mass Index 32.4 Const: Other: awake alert no acute distress Resp: Other: clear to auscultation bilaterally no rales rhonchi or wheezes Cardio: Other: no S4; positive S1-S2; no S3 murmurs rubs or gallops GI: Other: soft nontender nondistended normoactive bowel sounds Extrem: Other: nonhealing ulcer right heel we P but without surrounding erythema Objective Data Active Medications Acetaminophen (Acetaminophen 325 Mg Tablet) 650 mg PO Q6H PRN PRN Reason: Pain, Mild (Pain Scale 1-3) Albuterol Sulfate (Albuterol Sulfate (0.083%) 2.5 Mg/3 Ml Vial.Neb) 2.5 mg INHALE TID PRN PRN Reason: Respiratory Distress Albuterol Sulfate (Albuterol Sulfate 90 Mcg 8 Gm Inhaler) 2 puff INHALE Q4H PRN PRN Reason: wheezing Amlodipine Besylate (Amlodipine Besylate 5 Mg Tablet) 5 mg PO DAILY [facility]; Protocol Last Admin: 12/21/22 07:42 Dose: 5 mg Documented By: DECLAN Aspirin (Aspirin Enteric Coated 81 Mg Tablet.) 81 mg PO DAILY [facility] Last Admin: 12/21/22 07:42 Dose: 81 mg Documented By: DECLAN Atorvastatin Calcium (Atorvastatin Calcium 10 Mg Tablet) 10 mg PO DAILY [facility] Last Admin: 12/21/22 07:42 Dose: 10 mg Documented By: DECLAN Calcitriol (Calcitriol 0.25 Mcg Capsule) 0.5 mcg PO DAILY [facility] Last Admin: 12/21/22 07:42 Dose: 0.5 mcg Documented By: DECLAN Dextrose (Dextrose 50 % 25 Gm/50 Ml Syringe) 25 gm IVPUSH Q15M PRN; Protocol PRN Reason: per Hypoglycemia Standing Ord. Docusate Sodium (Docusate Sodium 100 Mg Capsule) 100 mg PO DAILY PRN PRN Reason: Constipation Duloxetine HCl (Duloxetine Hcl 20 Mg Capsule.Dr) 20 mg PO DAILY [facility] Last Admin: 12/21/22 07:42 Dose: 20 mg Documented By: DECLAN Famotidine (Famotidine 20 Mg Tablet) 40 mg PO BEDTIME [facility] Last Admin: 12/20/22 20:18 Dose: 40 mg Documented By: LORETTA Fluconazole (Fluconazole 100 Mg Tablet) 100 mg PO DAILY [facility] Last Admin: 12/21/22 07:42 Dose: 100 mg Documented By: DECLAN Gabapentin (Gabapentin 100 Mg Capsule) 100 mg PO BEDTIME [facility] Last Admin: 12/20/22 20:18 Dose: 100 mg Documented By: LORETTA Glucose (Glucose Gel 15 Gm Gel..Gram.) 15 gm PO Q15M PRN; Protocol PRN Reason: per Hypoglycemia Standing Ord. Last Admin: 12/20/22 07:59 Dose: 15 gm Documented By: TAVO Heparin Sodium (Porcine) (Heparin Sodium,Porcine 5,000 Unit/Ml Vial) 5,000 unit SUBCUT Q12H [facility] Last Admin: 12/21/22 12:05 Dose: 5,000 unit Documented By: DECLAN Hydroxyzine HCl (Hydroxyzine Hcl 10 Mg Tablet) 10 mg PO BID [facility] Last Admin: 12/21/22 07:42 Dose: 10 mg Documented By: DECLAN Insulin Glargine (Insulin Glargine,Hum.Rec.Anlog 100 Unit/Ml 10 Ml Vial) 48 unit SUBCUT BEDTIME [facility] Last Admin: 12/20/22 21:21 Dose: Not Given Documented By: LORETTA Non-Admin Reason: BLOOD SUGARS RUNNING LOW Insulin Human Lispro (Insulin Lispro 100 Unit/Ml 3 Ml Vial) 5 unit SUBCUT TIDWM [facility] Last Admin: 12/21/22 11:24 Dose: Not Given Documented By: DECLAN Non-Admin Reason: No Insulin Coverage Insulin Human Lispro (Insulin Lispro 100 Unit/Ml 3 Ml Vial) 0 unit SUBCUT QIDACHS [facility]; Protocol Last Admin: 12/21/22 11:24 Dose: Not Given Documented By: DECLAN Non-Admin Reason: No Insulin Coverage Lidocaine (Lidocaine 4 % Patch Adh..Patch) 1 patch TRANSDERMA DAILY [facility] Last Admin: 12/21/22 07:43 Dose: 1 patch Documented By: DECLAN Loperamide HCl (Loperamide Hcl 2 Mg Capsule) 2 mg PO Q6H PRN PRN Reason: Diarrhea Last Admin: 12/21/22 09:11 Dose: 2 mg Documented By: DECLAN Metoprolol Succinate (Metoprolol Succinate Er 25 Mg Tab.Er.24h) 25 mg PO DAILY [facility]; Protocol Last Admin: 12/21/22 07:42 Dose: 25 mg Documented By: DECLAN Mupirocin (Mupirocin 2 % Oint 22 Gm Tube) 1 appl TOPICAL TID [facility]; Protocol Last Admin: 12/21/22 12:06 Dose: Not Given Documented By: DECLAN Non-Admin Reason: / Non-Formulary Medication (Cholecalciferol (Vitamin D3)) 1 cap PO SA@1000 [facility] Omeprazole (Omeprazole 20 Mg Capsule.Dr) 20 mg PO DAILY@0630 [facility] Last Admin: 12/21/22 05:52 Dose: 20 mg Documented By: LESVIARISRavi Ondansetron HCl (Ondansetron Hcl 4 Mg/2 Ml Vial) 4 mg IVPUSH Q8H PRN PRN Reason: Nausea and Vomiting Sodium Bicarbonate (Sodium Bicarbonate 650 Mg Tablet) 650 mg PO TID [facility] Last Admin: 12/21/22 14:07 Dose: 650 mg Documented By: DECLAN Sodium Chloride (0.9 % Sodium Chloride Flush 3 Ml Syringe) 3 ml IVFLUSH QSHIFT [facility] Last Admin: 12/21/22 12:06 Dose: 3 ml Documented By: DECLAN Tacrolimus (Tacrolimus 1 Mg Capsule) 2 mg PO BID [facility] Last Admin: 12/21/22 07:42 Dose: 2 mg Documented By: DECLAN Tramadol HCl (Tramadol Hcl 50 Mg Tablet) 50 mg PO Q6H PRN PRN Reason: moderate pain Last Admin: 12/21/22 07:42 Dose: 50 mg Documented By: HO.N-RIVLA Trazodone HCl (Trazodone Hcl 25 Mg Halftab) 25 mg PO BEDTIME [facility] Last Admin: 12/20/22 20:18 Dose: 25 mg Documented By: LORETTA Labs 12/21/22 06:25 12/21/22 06:25 Labs: Laboratory Results - last 24 hr 12/20/22 12/20/22 12/20/22 16:05 20:43 21:06 MCV MCH MCHC RDW Plt Count MPV Immature Gran % (Auto) Neut % (Auto) Lymph % (Auto) [place] % (Auto) Eos % (Auto) Baso % (Auto) Lymph # (Auto) [place] # (Auto) Eos # (Auto) Baso # (Auto) Abs Immat Gran (auto) Absolute Neuts (auto) Absolute Nucleated RBC Nucleated RBC % (auto) Anion Gap Estim Creat Clear Calc Estimated GFR POC Glucose 108 157 H Fasting Glucose Calcium Total Bilirubin AST ALT Alkaline Phosphatase Total Protein Albumin Random Vancomycin 15.7 12/21/22 12/21/22 12/21/22 06:25 06:25 07:34 MCV 83.5 MCH 27.3 MCHC 32.7 RDW 15.8 Plt Count 247 MPV 10.6 Immature Gran % (Auto) 0.6 H Neut % (Auto) 66.9 Lymph % (Auto) 19.7 L [place] % (Auto) 11.1 H Eos % (Auto) 1.2 Baso % (Auto) 0.5 Lymph # (Auto) 2.0 [place] # (Auto) 1.1 Eos # (Auto) 0.1 Baso # (Auto) 0.1 Abs Immat Gran (auto) 0.06 H Absolute Neuts (auto) 6.8 Absolute Nucleated RBC 0.000 Nucleated RBC % (auto) 0.0 Anion Gap 13 Estim Creat Clear Calc 26.0 Estimated GFR 22 POC Glucose 55 L* Fasting Glucose 58 L* Calcium 8.5 Total Bilirubin 0.5 AST 20 ALT 28 Alkaline Phosphatase 114 Total Protein 6.1 L Albumin 2.9 L Random Vancomycin 12/21/22 12/21/22 12/21/22 07:52 08:34 11:12 MCV MCH MCHC RDW Plt Count MPV Immature Gran % (Auto) Neut % (Auto) Lymph % (Auto) [place] % (Auto) Eos % (Auto) Baso % (Auto) Lymph # (Auto) [place] # (Auto) Eos # (Auto) Baso # (Auto) Abs Immat Gran (auto) Absolute Neuts (auto) Absolute Nucleated RBC Nucleated RBC % (auto) Anion Gap Estim Creat Clear Calc Estimated GFR POC Glucose 47 L* 316 H 248 H Fasting Glucose Calcium Total Bilirubin AST ALT Alkaline Phosphatase Total Protein Albumin Random Vancomycin Microbiology Microbiology Results: Microbiology 12/19/22 00:39 Blood Culture - Preliminary Blood - Venous No growth after 48 hours. 12/19/22 00:39 Blood Culture - Preliminary Blood - Venous No growth after 48 hours. 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 fluconazole to complete 10 day course - encouraged rinsing after inhalers 2.Diabetic ulcer of foot - no evidence of acute infection...ESR/CRP flat. - empirically treated with IV antibiotics;given renal function will DC antibiotics as doubtful this is osteo - MRI of the foot pending... 3.BEATRIZ - resolving -follow renals/divalents 4.History of kidney transplant - continue prednisone and tacrolimus -as per renal 5.Hypertension - acceptable control on current therapies - adjust as indicated 6.Diabetes Mellitus II - acceptable control on current therapies - Lispro correctional scale - adjust as indicated requires ongoing hospitalization to monitor renal function in backdrop of kidney transplant Time Spent With Patient Time: Total time managing care of this patient today ____ minutes. Quality Stroke Does the patient have a stroke diagnosis?: No VTE Prior VTE?: No VTE Risk Level:: Medical - moderate - high VTE Device Contraindication: Treatment Not Indicated VTE Drug Contraindication: N/A - Med Ordered
[2022-12-21] MEDS: Insulin Lispro 100 UNIT/ML 3 ML VIAL SUBCUT ×3 (16:33→21:11)
[2022-12-21] MEDS: Acetaminophen 325 MG TABLET 650 MG PO ×2 (16:40→23:16)
[2022-12-21] MEDS: traZODone HCL 25 MG HALFTAB PO (21:11)
[2022-12-21] MEDS: Gabapentin 100 MG CAPSULE PO (21:11)
[2022-12-21] MEDS: Famotidine 20 MG TABLET 40 MG PO (21:11)
--- NOTE | 2022-12-21 22:53 | PM.PNNEP ---
Subjective Subjective Date of Service: 12/23/22 Interval history: no acute issues overnight. Remains afebrile Physical Exam Vital Signs: Vital Signs: Last Vital Signs Temp 98.8 F 12/21/22 19:07 Pulse 84 12/21/22 19:07 Resp 17 12/21/22 19:07 BP 143/89 H 12/21/22 19:07 Pulse Ox 98 12/21/22 19:07 O2 Del Method Room Air 12/21/22 19:07 BMI result Body Mass Index 32.4 Const: Other: awake alert no acute distress Resp: Other: clear to auscultation bilaterally no rales rhonchi or wheezes Cardio: Other: no S4; positive S1-S2; no S3 murmurs rubs or gallops GI: Other: soft nontender nondistended normoactive bowel sounds Extrem: Other: nonhealing ulcer right heel we P but without surrounding erythema Objective Data Labs 12/21/22 06:25 12/21/22 06:25 Labs: Laboratory Results - last 24 hr 12/21/22 12/21/22 12/21/22 06:25 06:25 07:34 WBC 10.1 RBC 4.72 Hgb 12.9 L Hct 39.4 L MCV 83.5 MCH 27.3 MCHC 32.7 RDW 15.8 Plt Count 247 MPV 10.6 Immature Gran % (Auto) 0.6 H Neut % (Auto) 66.9 Lymph % (Auto) 19.7 L [place] % (Auto) 11.1 H Eos % (Auto) 1.2 Baso % (Auto) 0.5 Lymph # (Auto) 2.0 [place] # (Auto) 1.1 Eos # (Auto) 0.1 Baso # (Auto) 0.1 Abs Immat Gran (auto) 0.06 H Absolute Neuts (auto) 6.8 Absolute Nucleated RBC 0.000 Nucleated RBC % (auto) 0.0 Sodium 140 Potassium 3.8 Chloride 112 H Carbon Dioxide 19 L Anion Gap 13 BUN 22 H Creatinine 2.98 H Estim Creat Clear Calc 26.0 Estimated GFR 22 POC Glucose 55 L* Fasting Glucose 58 L* Calcium 8.5 Total Bilirubin 0.5 AST 20 ALT 28 Alkaline Phosphatase 114 Total Protein 6.1 L Albumin 2.9 L 12/21/22 12/21/22 12/21/22 07:52 08:34 11:12 WBC RBC Hgb Hct MCV MCH MCHC RDW Plt Count MPV Immature Gran % (Auto) Neut % (Auto) Lymph % (Auto) [place] % (Auto) Eos % (Auto) Baso % (Auto) Lymph # (Auto) [place] # (Auto) Eos # (Auto) Baso # (Auto) Abs Immat Gran (auto) Absolute Neuts (auto) Absolute Nucleated RBC Nucleated RBC % (auto) Sodium Potassium Chloride Carbon Dioxide Anion Gap BUN Creatinine Estim Creat Clear Calc Estimated GFR POC Glucose 47 L* 316 H 248 H Fasting Glucose Calcium Total Bilirubin AST ALT Alkaline Phosphatase Total Protein Albumin 12/21/22 12/21/22 16:31 19:10 WBC RBC Hgb Hct MCV MCH MCHC RDW Plt Count MPV Immature Gran % (Auto) Neut % (Auto) Lymph % (Auto) [place] % (Auto) Eos % (Auto) Baso % (Auto) Lymph # (Auto) [place] # (Auto) Eos # (Auto) Baso # (Auto) Abs Immat Gran (auto) Absolute Neuts (auto) Absolute Nucleated RBC Nucleated RBC % (auto) Sodium Potassium Chloride Carbon Dioxide Anion Gap BUN Creatinine Estim Creat Clear Calc Estimated GFR POC Glucose 389 H* 198 H Fasting Glucose Calcium Total Bilirubin AST ALT Alkaline Phosphatase Total Protein Albumin Microbiology Microbiology Results: Microbiology 12/19/22 00:39 Blood - Venous Blood Culture - Preliminary No growth after 48 hours. 12/19/22 00:39 Blood - Venous Blood Culture - Preliminary No growth after 48 hours. Procedures Date of Service Date of Service: 12/23/22 Assessment & Plan Assessment and plan (1) BEATRIZ (acute kidney injury): Status: Acute (2) Candidiasis of mouth: Status: Acute Plan [place] HAS CHRONIC KIDNEY DISEASE status post disease donor kidney transplant in 2013. Baseline creatinine has been around 2.0-2.2 mg/dL. Over the last 4 months I have gradually increased serum creatinine. As of November 24 BUN was 40 creatinine was 3.2. At the time of admission his creatinine was 3.6 mg/dL. He has been admitted with difficulty swallowing most likely due to oral thrush. He has acute kidney injury superimposed on chronic kidney disease. Acute kidney injury could be due to dehydration. Due to poor p.o. intake. However other causes including rejection and tacro toxicity should be considered. Cr is beter Increase oral intake. F/u tacrolimus levels. Continue to avoid nephrotoxic agents. No need for Kidney Biopsy sodium bicarbonate p.o. to correct acidosis. Time Spent With Patient Time: Total time managing care of this patient today ____ minutes. Progress Note: Quality Stroke Does the patient have a stroke diagnosis?: No
[2022-12-22] MEDS: Heparin Sodium,Porcine 5,000 UNIT/ML VIAL 5000 UNIT SUBCUT ×2 (01:49→11:51)
[2022-12-22 03:36] VITALS: BP 143/85; PULSE 76; RESP 18; TEMP 36.6; O2SAT 97
[2022-12-22] MEDS: Omeprazole 20 MG CAPSULE.DR PO (05:50)
[2022-12-22 07:56] VITALS: BP 153/87; PULSE 71; RESP 20; TEMP 36.9; O2SAT 99
[2022-12-22] MEDS: Tacrolimus 1 MG CAPSULE 2 MG PO ×2 (08:44→20:20)
[2022-12-22] MEDS: hydrOXYzine HCL 10 MG TABLET PO ×2 (08:44→20:21)
[2022-12-22] MEDS: traMADoL HCL 50 MG TABLET PO ×2 (08:44→16:03)
[2022-12-22] MEDS: DULoxetine HCl 20 MG CAPSULE.DR PO (08:44)
[2022-12-22] MEDS: Acetaminophen 325 MG TABLET 650 MG PO (08:44)
[2022-12-22] MEDS: calcitrioL 0.25 MCG CAPSULE 0.5 MCG PO (08:44)
[2022-12-22] MEDS: Aspirin Enteric Coated 81 MG TABLET.DR PO (08:45)
[2022-12-22] MEDS: Lidocaine 4 % Patch ADH..PATCH 1 PATCH TRANSDERMA (08:45)
[2022-12-22] MEDS: amLODIPine Besylate 5 MG TABLET PO (08:45)
[2022-12-22] MEDS: Atorvastatin Calcium 10 MG TABLET PO (08:45)
[2022-12-22] MEDS: Insulin Lispro 100 UNIT/ML 3 ML VIAL SUBCUT ×6 (08:45→20:21)
[2022-12-22] MEDS: Metoprolol Succinate ER 25 MG TAB.ER.24H PO (08:45)
[2022-12-22] MEDS: 0.9 % Sodium Chloride Flush 3 ML SYRINGE IVFLUSH ×2 (08:46→11:51)
[2022-12-22 10:49] VITALS: BP 135/83; PULSE 69; RESP 20; TEMP 37; O2SAT 97
--- NOTE | 2022-12-22 11:50 | HO.PM.IMPN ---
Subjective Subjective Date of Service: 12/22/22 Interval History: Offers no acute complaints, tolerating diet no nausea, no vomiting, no throat pain ,no epigastric discomfort, denies lightheadedness, no dizziness, no fevers, no chills no other acute issues overnight. Review of Systems All other system reviewed and negative. Physical Exam Vital Signs: Vital Signs: Last Vital Signs Temp 98.6 F 12/22/22 10:49 Pulse 69 12/22/22 10:49 Resp 20 12/22/22 10:49 BP 135/83 12/22/22 10:49 Pulse Ox 97 12/22/22 10:49 O2 Del Method Room Air 12/22/22 10:49 BMI result Body Mass Index 32.4 Const: Other: General awake alert x3, sitting comfortably in no acute distress. Neck supple no JVD. Tongue no white coating CVS regular rate rhythm, Respiratory lungs clear to auscultation, no respiratory distress, no wheeze, no rhonchi. Gastrointestinal abdomen soft, nontender, bowel sounds audible, no guarding , no rigidity. Extremities no edema. Neuro nonfocal Skin nonhealing right heel wound without surrounding erythema Psych appropriate affect Objective Data Active Medications Acetaminophen (Acetaminophen 325 Mg Tablet) 650 mg PO Q6H PRN PRN Reason: Pain, Mild (Pain Scale 1-3) Last Admin: 12/22/22 08:44 Dose: 650 mg Documented By: DECLAN Albuterol Sulfate (Albuterol Sulfate (0.083%) 2.5 Mg/3 Ml Vial.[place]) 2.5 mg INHALE TID PRN PRN Reason: Respiratory Distress Albuterol Sulfate (Albuterol Sulfate 90 Mcg 8 Gm Inhaler) 2 puff INHALE Q4H PRN PRN Reason: wheezing Amlodipine Besylate (Amlodipine Besylate 5 Mg Tablet) 5 mg PO DAILY [facility]; Protocol Last Admin: 12/22/22 08:45 Dose: 5 mg Documented By: DECLAN Aspirin (Aspirin Enteric Coated 81 Mg Tablet.) 81 mg PO DAILY [facility] Last Admin: 12/22/22 08:45 Dose: 81 mg Documented By: DECLAN Atorvastatin Calcium (Atorvastatin Calcium 10 Mg Tablet) 10 mg PO DAILY [facility] Last Admin: 12/22/22 08:45 Dose: 10 mg Documented By: DECLAN Calcitriol (Calcitriol 0.25 Mcg Capsule) 0.5 mcg PO DAILY [facility] Last Admin: 12/22/22 08:44 Dose: 0.5 mcg Documented By: DECLAN Dextrose (Dextrose 50 % 25 Gm/50 Ml Syringe) 25 gm IVPUSH Q15M PRN; Protocol PRN Reason: per Hypoglycemia Standing Ord. Docusate Sodium (Docusate Sodium 100 Mg Capsule) 100 mg PO DAILY PRN PRN Reason: Constipation Duloxetine HCl (Duloxetine Hcl 20 Mg Capsule.Dr) 20 mg PO DAILY [facility] Last Admin: 12/22/22 08:44 Dose: 20 mg Documented By: DECLAN Famotidine (Famotidine 20 Mg Tablet) 40 mg PO BEDTIME [facility] Last Admin: 12/21/22 21:11 Dose: 40 mg Documented By: ROOSEVELT Fluconazole (Fluconazole 100 Mg Tablet) 100 mg PO DAILY [facility] Last Admin: 12/22/22 08:45 Dose: 100 mg Documented By: DECLAN Gabapentin (Gabapentin 100 Mg Capsule) 100 mg PO BEDTIME [facility] Last Admin: 12/21/22 21:11 Dose: 100 mg Documented By: ROOSEVELT Glucose (Glucose Gel 15 Gm Gel..Gram.) 15 gm PO Q15M PRN; Protocol PRN Reason: per Hypoglycemia Standing Ord. Last Admin: 12/20/22 07:59 Dose: 15 gm Documented By: TAVO Heparin Sodium (Porcine) (Heparin Sodium,Porcine 5,000 Unit/Ml Vial) 5,000 unit SUBCUT Q12H [facility] Last Admin: 12/22/22 01:49 Dose: 5,000 unit Documented By: ROOSEVELT Hydroxyzine HCl (Hydroxyzine Hcl 10 Mg Tablet) 10 mg PO BID [facility] Last Admin: 12/22/22 08:44 Dose: 10 mg Documented By: DECLAN Insulin Glargine (Insulin Glargine,Hum.Rec.Anlog 100 Unit/Ml 10 Ml Vial) 48 unit SUBCUT BEDTIME [facility] Last Admin: 12/20/22 21:21 Dose: Not Given Documented By: LORETTA Non-Admin Reason: BLOOD SUGARS RUNNING LOW Insulin Human Lispro (Insulin Lispro 100 Unit/Ml 3 Ml Vial) 5 unit SUBCUT TIDWM [facility] Last Admin: 12/22/22 08:45 Dose: 5 unit Documented By: DECLAN Insulin Human Lispro (Insulin Lispro 100 Unit/Ml 3 Ml Vial) 0 unit SUBCUT QIDACHS [facility]; Protocol Last Admin: 12/22/22 08:45 Dose: 8 unit Documented By: DECLAN Lidocaine (Lidocaine 4 % Patch Adh..Patch) 1 patch TRANSDERMA DAILY [facility] Last Admin: 12/22/22 08:45 Dose: 1 patch Documented By: DECLAN Loperamide HCl (Loperamide Hcl 2 Mg Capsule) 2 mg PO Q6H PRN PRN Reason: Diarrhea Last Admin: 12/22/22 08:45 Dose: 2 mg Documented By: DECLAN Metoprolol Succinate (Metoprolol Succinate Er 25 Mg Tab.Er.24h) 25 mg PO DAILY [facility]; Protocol Last Admin: 12/22/22 08:45 Dose: 25 mg Documented By: DECLAN Mupirocin (Mupirocin 2 % Oint 22 Gm Tube) 1 appl TOPICAL TID [facility]; Protocol Last Admin: 12/21/22 21:16 Dose: 1 appl Documented By: ROOSEVELT Comments: diabetic foot ulcer Omeprazole (Omeprazole 20 Mg Capsule.Dr) 20 mg PO DAILY@0630 [facility] Last Admin: 12/22/22 05:50 Dose: 20 mg Documented By: ROOSEVELT Ondansetron HCl (Ondansetron Hcl 4 Mg/2 Ml Vial) 4 mg IVPUSH Q8H PRN PRN Reason: Nausea and Vomiting Sodium Bicarbonate (Sodium Bicarbonate 650 Mg Tablet) 650 mg PO TID [facility] Last Admin: 12/22/22 08:45 Dose: 650 mg Documented By: DECLAN Sodium Chloride (0.9 % Sodium Chloride Flush 3 Ml Syringe) [facility] Last Admin: 12/22/22 08:46 Dose: 3 ml Documented By: DECLAN Tacrolimus (Tacrolimus 1 Mg Capsule) 2 mg PO BID [facility] Last Admin: 12/22/22 08:44 Dose: 2 mg Documented By: DECLAN Tramadol HCl (Tramadol Hcl 50 Mg Tablet) 50 mg PO Q6H PRN PRN Reason: moderate pain Last Admin: 12/22/22 08:44 Dose: 50 mg Documented By: DECLAN Trazodone HCl (Trazodone Hcl 25 Mg Halftab) 25 mg PO BEDTIME [facility] Last Admin: 12/21/22 21:11 Dose: 25 mg Documented By: ROOSEVELT Labs 12/22/22 06:01 12/22/22 06:01 Labs: Laboratory Results - last 24 hr 12/21/22 12/21/22 12/22/22 16:31 19:10 06:01 MCV MCH MCHC RDW Plt Count MPV Immature Gran % (Auto) Neut % (Auto) Lymph % (Auto) [place] % (Auto) Eos % (Auto) Baso % (Auto) Lymph # (Auto) [place] # (Auto) Eos # (Auto) Baso # (Auto) Abs Immat Gran (auto) Absolute Neuts (auto) Absolute Nucleated RBC Nucleated RBC % (auto) Anion Gap 14 Estim Creat Clear Calc 25.2 Estimated GFR 21 POC Glucose 389 H* 198 H Fasting Glucose 348 H Calcium 8.2 L Total Bilirubin 0.5 AST 12 ALT 20 Alkaline Phosphatase 98 Total Protein 5.6 L Albumin 2.7 L 12/22/22 12/22/22 12/22/22 06:01 07:58 10:47 MCV 83.9 MCH 27.2 MCHC 32.4 RDW 15.7 Plt Count 201 MPV 10.6 Immature Gran % (Auto) 0.7 H Neut % (Auto) 70.6 Lymph % (Auto) 15.5 L [place] % (Auto) 11.9 H Eos % (Auto) 0.8 Baso % (Auto) 0.5 Lymph # (Auto) 1.3 [place] # (Auto) 1.0 Eos # (Auto) 0.1 Baso # (Auto) 0.0 Abs Immat Gran (auto) 0.06 H Absolute Neuts (auto) 6.0 Absolute Nucleated RBC 0.000 Nucleated RBC % (auto) 0.0 Anion Gap Estim Creat Clear Calc Estimated GFR POC Glucose 338 H 215 H Fasting Glucose Calcium Total Bilirubin AST ALT Alkaline Phosphatase Total Protein Albumin Assessment and Plan (1) Candidiasis of the esophagus: Status: Acute Plan 57-year-old male past medical history of kidney transplant on immunosuppressants presents the hospital with complaints difficulty swallowing 1.Acute dysphagia (secondary to oral candidiasis in the backdrop of not rinsing after steroid inhalers per patient ) -?on p.o. fluconazole to complete? 10 day course, end date encouraged rinsing after inhalers, tolerating diet 2.Diabetic ulcer of right foot - no evidence of acute infection...ESR/CRP flat. 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 3.BEATRIZ -resolving, creatinine trending down from 4 to 3 today, avoid nephrotoxins, will discuss further treatment plan with Nephro -follow renals/divalents 4.History of kidney transplant - continue prednisone and tacrolimus, tacrolimus level pending 5.Hypertension - stable blood pressure 6.Diabetes Mellitus II - labile blood sugars, on Lantus 48 unit on bedtime and 5 units before meals - Lispro correctional scale, diabetic diet - adjust as indicated 7. Metabolic acidosis bicarb gradually improving continue soda bicarb ?requires ongoing hospitalization to monitor renal function in backdrop of kidney transplant. Time Spent With Patient Time: Total time managing care of this patient today ____ minutes. Quality Stroke Does the patient have a stroke diagnosis?: No VTE Prior VTE?: No VTE Risk Level:: Medical - moderate - high VTE Device Contraindication: Treatment Not Indicated VTE Drug Contraindication: N/A - Med Ordered
--- NOTE | 2022-12-22 14:58 | P.PNNP_ITS ---
Subjective Subjective Date of Service: 12/22/22 Interval history: Events noted. Feels about the same. Still has some pain during swallowing Physical Exam Vital Signs: Vital Signs: Last Vital Signs Temp 98.6 F 12/22/22 10:49 Pulse 69 12/22/22 10:49 Resp 20 12/22/22 10:49 BP 135/83 12/22/22 10:49 Pulse Ox 97 12/22/22 10:49 O2 Del Method Room Air 12/22/22 10:49 BMI result Body Mass Index 32.4 Comfortable Neck is supple Lung: Air entry equal Heart: S1,S2, normal. No rub Abd: Soft. BS + NS : Alert.No asterexis Ext: No edema Const: Other: awake alert no acute distress General: cooperative and no acute distress Orientation/consciousness: patient oriented x3 HEENT: Other: Candidiasis on the tongue Eyes: General: appearance normal, both eyes and all related structures Resp: Other: clear to auscultation bilaterally no rales rhonchi or wheezes Effort & Inspection: normal respiratory effort Auscultation: clear to auscultation bilaterally Cardio: Other: no S4; positive S1-S2; no S3 murmurs rubs or gallops Rate: regular rate Rhythm: regular rhythm GI: Other: soft nontender nondistended normoactive bowel sounds Palpation (GI): Soft to palpation Auscultation: normal bowel sounds Skin: General skin exam: no rashes or lesions noted Neuro: General: patient oriented x3 Cognition (Neuro): normal cognition Extrem: Other: nonhealing ulcer right heel we P but without surrounding erythema Objective Data Labs 12/22/22 06:01 12/22/22 06:01 Labs: Laboratory Results - last 24 hr 12/21/22 12/21/22 12/22/22 16:31 19:10 06:01 WBC RBC Hgb Hct MCV MCH MCHC RDW Plt Count MPV Immature Gran % (Auto) Neut % (Auto) Lymph % (Auto) [place] % (Auto) Eos % (Auto) Baso % (Auto) Lymph # (Auto) [place] # (Auto) Eos # (Auto) Baso # (Auto) Abs Immat Gran (auto) Absolute Neuts (auto) Absolute Nucleated RBC Nucleated RBC % (auto) Sodium 133 L Potassium 4.3 Chloride 107 Carbon Dioxide 16 L Anion Gap 14 BUN 22 H Creatinine 3.07 H Estim Creat Clear Calc 25.2 Estimated GFR 21 POC Glucose 389 H* 198 H Fasting Glucose 348 H Calcium 8.2 L Total Bilirubin 0.5 AST 12 ALT 20 Alkaline Phosphatase 98 Total Protein 5.6 L Albumin 2.7 L 12/22/22 12/22/22 12/22/22 06:01 07:58 10:47 WBC 8.4 RBC 4.34 L Hgb 11.8 L Hct 36.4 L MCV 83.9 MCH 27.2 MCHC 32.4 RDW 15.7 Plt Count 201 MPV 10.6 Immature Gran % (Auto) 0.7 H Neut % (Auto) 70.6 Lymph % (Auto) 15.5 L [place] % (Auto) 11.9 H Eos % (Auto) 0.8 Baso % (Auto) 0.5 Lymph # (Auto) 1.3 [place] # (Auto) 1.0 Eos # (Auto) 0.1 Baso # (Auto) 0.0 Abs Immat Gran (auto) 0.06 H Absolute Neuts (auto) 6.0 Absolute Nucleated RBC 0.000 Nucleated RBC % (auto) 0.0 Sodium Potassium Chloride Carbon Dioxide Anion Gap BUN Creatinine Estim Creat Clear Calc Estimated GFR POC Glucose 338 H 215 H Fasting Glucose Calcium Total Bilirubin AST ALT Alkaline Phosphatase Total Protein Albumin Microbiology Microbiology Results: Microbiology 12/19/22 00:39 Blood - Venous Blood Culture - Preliminary No growth after 48 hours. 12/19/22 00:39 Blood - Venous Blood Culture - Preliminary No growth after 48 hours. Procedures Date of Service Date of Service: 12/22/22 Assessment & Plan Assessment and plan (1) BEATRIZ (acute kidney injury): Status: Acute (2) Candidiasis of mouth: Status: Acute Plan [facility] HAS CHRONIC KIDNEY DISEASE status post disease donor kidney transplant in 2013. Baseline creatinine has been around 2.0-2.2 mg/dL. Over the last 4 months I have gradually increased serum creatinine. As of November 24 BUN was 40 creatinine was 3.2. At the time of admission his creatinine was 3.6 mg/dL. He has been admitted with difficulty swallowing most likely due to oral thrush. He has acute kidney injury superimposed on chronic kidney disease. Acute kidney injury could be due to dehydration. Due to poor p.o. intake. However other causes including rejection and tacro toxicity should be considered. Lack of significant improvement in the creatinine is troublesome. I concur with treating oral thrush. Increase oral intake. Check tacrolimus levels. - levels pending PD Continue to avoid nephrotoxic agents. At risk for vanco toxicity. Follow levels closely and adjust dose accordingly. Last vanco loss 15.9 on 12/20/2022. Likely vanco has been discontinued. If the creatinine does not return returned to baseline he would require a kidney biopsy. sodium bicarbonate p.o. to correct acidosis. Time Spent With Patient Time: Total time managing care of this patient today ____ minutes. Progress Note: Quality Stroke Does the patient have a stroke diagnosis?: No
[2022-12-22 15:15] VITALS: BP 147/84; PULSE 77; RESP 20; TEMP 36.7; O2SAT 97
[2022-12-22 19:06] VITALS: BP 134/90; PULSE 85; RESP 20; TEMP 526.6; TEMP 980; O2SAT 96
[2022-12-22] MEDS: traZODone HCL 25 MG HALFTAB PO (20:21)
[2022-12-22] MEDS: Gabapentin 100 MG CAPSULE PO (20:21)
[2022-12-22] MEDS: Famotidine 20 MG TABLET 40 MG PO (20:21)
[2022-12-22 23:30] VITALS: BP 151/79; PULSE 93; RESP 20; TEMP 37.6; O2SAT 97
[2022-12-23] VITALS (7 sets, daily range): BP systolic 118–154; BP diastolic 68–85; PULSE 71–85; RESP 18–20; TEMP 36.5–37.3; O2SAT 95–98
[2022-12-23] MEDS: Heparin Sodium,Porcine 5,000 UNIT/ML VIAL 5000 UNIT SUBCUT ×2 (00:26→11:47)
[2022-12-23] MEDS: 0.9 % Sodium Chloride Flush 3 ML SYRINGE IVFLUSH ×3 (00:27→20:23)
[2022-12-23] MEDS: Omeprazole 20 MG CAPSULE.DR PO (05:34)
[2022-12-23] MEDS: Insulin Lispro 100 UNIT/ML 3 ML VIAL SUBCUT ×6 (08:23→20:21)
[2022-12-23] MEDS: hydrOXYzine HCL 10 MG TABLET PO ×2 (08:25→20:22)
[2022-12-23] MEDS: amLODIPine Besylate 5 MG TABLET PO (08:25)
[2022-12-23] MEDS: Aspirin Enteric Coated 81 MG TABLET.DR PO (08:25)
[2022-12-23] MEDS: Atorvastatin Calcium 10 MG TABLET PO (08:25)
[2022-12-23] MEDS: Metoprolol Succinate ER 25 MG TAB.ER.24H PO (08:25)
[2022-12-23] MEDS: Lidocaine 4 % Patch ADH..PATCH 1 PATCH TRANSDERMA (08:26)
[2022-12-23] MEDS: Tacrolimus 1 MG CAPSULE 2 MG PO ×2 (08:26→20:22)
[2022-12-23] MEDS: DULoxetine HCl 20 MG CAPSULE.DR PO (08:26)
[2022-12-23] MEDS: calcitrioL 0.25 MCG CAPSULE 0.5 MCG PO (08:26)
[2022-12-23] MEDS: Acetaminophen 325 MG TABLET 650 MG PO (08:33)
[2022-12-23] MEDS: ondansetron HCL 4 MG/2 ML VIAL IVPUSH (09:05)
--- NOTE | 2022-12-23 10:55 | HO.PM.IMPN ---
Subjective Subjective Date of Service: 12/23/22 Interval History: odynophagia Physical Exam Vital Signs: Vital Signs: Last Vital Signs Temp 98.2 F 12/23/22 10:49 Pulse 76 12/23/22 10:49 Resp 20 12/23/22 10:49 BP 118/68 12/23/22 10:49 Pulse Ox 98 12/23/22 10:49 O2 Del Method Room Air 12/23/22 10:49 BMI result Body Mass Index 32.4 Comfortable Neck is supple Lung: Air entry equal Heart: S1,S2, normal. No rub Abd: Soft. BS + NS : Alert.No asterexis Ext: No edema Const: Other: awake alert no acute distress General: cooperative and no acute distress Orientation/consciousness: patient oriented x3 HEENT: Other: Candidiasis on the tongue Eyes: General: appearance normal, both eyes and all related structures Resp: Other: clear to auscultation bilaterally no rales rhonchi or wheezes Effort & Inspection: normal respiratory effort Auscultation: clear to auscultation bilaterally Cardio: Other: no S4; positive S1-S2; no S3 murmurs rubs or gallops Rate: regular rate Rhythm: regular rhythm GI: Other: soft nontender nondistended normoactive bowel sounds Palpation (GI): Soft to palpation Auscultation: normal bowel sounds Skin: General skin exam: no rashes or lesions noted Neuro: General: patient oriented x3 Cognition (Neuro): normal cognition Extrem: Other: nonhealing ulcer right heel we P but without surrounding erythema Objective Data Active Medications Acetaminophen (Acetaminophen 325 Mg Tablet) 650 mg PO Q6H PRN PRN Reason: Pain, Mild (Pain Scale 1-3) Last Admin: 12/23/22 08:33 Dose: 650 mg Documented By: JODY Albuterol Sulfate (Albuterol Sulfate (0.083%) 2.5 Mg/3 Ml Vial.Neb) 2.5 mg INHALE TID PRN PRN Reason: Respiratory Distress Albuterol Sulfate (Albuterol Sulfate 90 Mcg 8 Gm Inhaler) 2 puff INHALE Q4H PRN PRN Reason: wheezing Amlodipine Besylate (Amlodipine Besylate 5 Mg Tablet) 5 mg PO DAILY [facility]; Protocol Last Admin: 12/23/22 08:25 Dose: 5 mg Documented By: JODY Aspirin (Aspirin Enteric Coated 81 Mg Tablet.) 81 mg PO DAILY [facility] Last Admin: 12/23/22 08:25 Dose: 81 mg Documented By: JODY Atorvastatin Calcium (Atorvastatin Calcium 10 Mg Tablet) 10 mg PO DAILY [facility] Last Admin: 12/23/22 08:25 Dose: 10 mg Documented By: JDOY Calcitriol (Calcitriol 0.25 Mcg Capsule) 0.5 mcg PO DAILY [facility] Last Admin: 12/23/22 08:26 Dose: 0.5 mcg Documented By: JODY Dextrose (Dextrose 50 % 25 Gm/50 Ml Syringe) 25 gm IVPUSH Q15M PRN; Protocol PRN Reason: per Hypoglycemia Standing Ord. Docusate Sodium (Docusate Sodium 100 Mg Capsule) 100 mg PO DAILY PRN PRN Reason: Constipation Duloxetine HCl (Duloxetine Hcl 20 Mg Capsule.) 20 mg PO DAILY [facility] Last Admin: 12/23/22 08:26 Dose: 20 mg Documented By: JODY Famotidine (Famotidine 20 Mg Tablet) 40 mg PO BEDTIME [facility] Last Admin: 12/22/22 20:21 Dose: 40 mg Documented By: JUAN LUIS Fluconazole (Fluconazole 100 Mg Tablet) 100 mg PO DAILY [facility] Last Admin: 12/23/22 08:25 Dose: 100 mg Documented By: JODY Gabapentin (Gabapentin 100 Mg Capsule) 100 mg PO BEDTIME [facility] Last Admin: 12/22/22 20:21 Dose: 100 mg Documented By: JUAN LUIS Glucose (Glucose Gel 15 Gm Gel..Gram.) 15 gm PO Q15M PRN; Protocol PRN Reason: per Hypoglycemia Standing Ord. Last Admin: 12/20/22 07:59 Dose: 15 gm Documented By: TAVO Heparin Sodium (Porcine) (Heparin Sodium,Porcine 5,000 Unit/Ml Vial) 5,000 unit SUBCUT Q12H [facility] Last Admin: 12/23/22 00:26 Dose: 5,000 unit Documented By: JOEL Hydroxyzine HCl (Hydroxyzine Hcl 10 Mg Tablet) 10 mg PO BID [facility] Last Admin: 12/23/22 08:25 Dose: 10 mg Documented By: JODY Insulin Glargine (Insulin Glargine,Hum.Rec.Anlog 100 Unit/Ml 10 Ml Vial) 48 unit SUBCUT BEDTIME [facility] Last Admin: 12/20/22 21:21 Dose: Not Given Documented By: LORETTA Non-Admin Reason: BLOOD SUGARS RUNNING LOW Insulin Human Lispro (Insulin Lispro 100 Unit/Ml 3 Ml Vial) 5 unit SUBCUT TIDWM [facility] Last Admin: 12/23/22 08:23 Dose: 5 unit Documented By: JODY Insulin Human Lispro (Insulin Lispro 100 Unit/Ml 3 Ml Vial) 0 unit SUBCUT QIDACHS [facility]; Protocol Last Admin: 12/23/22 08:24 Dose: 6 unit Documented By: JODY Lidocaine (Lidocaine 4 % Patch Adh..Patch) 1 patch TRANSDERMA DAILY [facility] Last Admin: 12/23/22 08:26 Dose: 1 patch Documented By: JODY Lidocaine/Diphenhydr/Alum/Mg/Simeth (Mag&Al/Sim/Diphenhyd/Lidocaine 10 Ml Oral.Susp) 10 ml PO Q4H PRN; Protocol PRN Reason: throat pain Loperamide HCl (Loperamide Hcl 2 Mg Capsule) 2 mg PO Q6H PRN PRN Reason: Diarrhea Last Admin: 12/22/22 08:45 Dose: 2 mg Documented By: DECLAN Metoprolol Succinate (Metoprolol Succinate Er 25 Mg Tab.Er.24h) 25 mg PO DAILY [facility]; Protocol Last Admin: 12/23/22 08:25 Dose: 25 mg Documented By: JODY Mupirocin (Mupirocin 2 % Oint 22 Gm Tube) 1 appl TOPICAL TID [facility]; Protocol Last Admin: 12/23/22 08:29 Dose: 1 appl Documented By: JODY Omeprazole (Omeprazole 20 Mg Capsule.Dr) 20 mg PO DAILY@0630 [facility] Last Admin: 12/23/22 05:34 Dose: 20 mg Documented By: JOEL Ondansetron HCl (Ondansetron Hcl 4 Mg/2 Ml Vial) 4 mg IVPUSH Q8H PRN PRN Reason: Nausea and Vomiting Last Admin: 12/23/22 09:05 Dose: 4 mg Documented By: JODY Sodium Bicarbonate (Sodium Bicarbonate 650 Mg Tablet) 650 mg PO TID [facility] Last Admin: 12/23/22 08:28 Dose: 650 mg Documented By: JODY Sodium Chloride (0.9 % Sodium Chloride Flush 3 Ml Syringe) 3 ml IVFLUSH QSHIFT [facility] Last Admin: 12/23/22 08:26 Dose: 3 ml Documented By: JODY Tacrolimus (Tacrolimus 1 Mg Capsule) 2 mg PO BID [facility] Last Admin: 12/23/22 08:26 Dose: 2 mg Documented By: JODY Tramadol HCl (Tramadol Hcl 50 Mg Tablet) 50 mg PO Q6H PRN PRN Reason: moderate pain Last Admin: 12/22/22 16:03 Dose: 50 mg Documented By: JUAN LUIS Trazodone HCl (Trazodone Hcl 25 Mg Halftab) 25 mg PO BEDTIME [facility] Last Admin: 12/22/22 20:21 Dose: 25 mg Documented By: JUAN LUIS Labs 12/22/22 06:01 12/23/22 06:29 Labs: Laboratory Results - last 24 hr 12/22/22 12/22/22 12/22/22 10:47 16:00 20:13 Anion Gap Estim Creat Clear Calc Estimated GFR POC Glucose 215 H 129 H 219 H Random Glucose Calcium 12/23/22 12/23/22 06:29 07:20 Anion Gap 14 Estim Creat Clear Calc 24.4 Estimated GFR 20 POC Glucose 293 H Random Glucose 300 H Calcium 8.5 Assessment and Plan (1) Candidiasis of the esophagus: Status: Acute Plan 57-year-old male past medical history of kidney transplant on immunosuppressants presented to the hospital with complaints difficulty swallowing Acute odynophagia (secondary to oral candidiasis in the backdrop of not rinsing after steroid inhalers per patient ) on p.o. fluconazole to complete? 10 day course, end date encouraged rinsing after inhalers, tolerating diet Diabetic ulcer of right foot no evidence of acute infection...ESR/CRP flat. 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 BEATRIZ -resolving, but slower than expected, avoid nephrotoxins, will discuss further treatment plan with Nephro -follow renals/divalents .History of kidney transplant - continue prednisone and tacrolimus, tacrolimus level pending .Hypertension toprol .Diabetes Mellitus II - labile blood sugars, on Lantus 48 unit on bedtime and 5 units before meals - Lispro correctional scale, diabetic diet - adjust as indicated acute Metabolic acidosis po soda bicarb monitor dvt prophylaxis - hep sq full code ?requires ongoing hospitalization to monitor renal function in backdrop of kidney transplant. Time Spent With Patient Time: Total time managing care of this patient today ____ minutes. Quality Stroke Does the patient have a stroke diagnosis?: No VTE Prior VTE?: No VTE Risk Level:: Medical - moderate - high VTE Device Contraindication: Treatment Not Indicated VTE Drug Contraindication: N/A - Med Ordered
[2022-12-23] MEDS: traMADoL HCL 50 MG TABLET PO ×2 (12:31→20:30)
--- NOTE | 2022-12-23 14:04 | MHC.CM.PN ---
EMR reviewed and per MD rounds, pt is not medically cleared for D/C with the continued need for renal function monitoring and possible need for medical transfer to [facility]. CM will continue to follow.
[2022-12-23] MEDS: Famotidine 20 MG TABLET 40 MG PO (20:22)
[2022-12-23] MEDS: traZODone HCL 25 MG HALFTAB PO (20:22)
[2022-12-23] MEDS: Gabapentin 100 MG CAPSULE PO (20:22)
--- NOTE | 2022-12-23 21:25 | PM.PNNEP ---
Subjective Subjective Date of Service: 12/23/22 Interval history: pt is comfortable Physical Exam Vital Signs: Vital Signs: Last Vital Signs Temp 98.1 F 12/23/22 19:35 Pulse 71 12/23/22 19:35 Resp 18 12/23/22 19:35 BP 138/77 12/23/22 19:35 Pulse Ox 97 12/23/22 19:35 O2 Del Method Room Air 12/23/22 19:35 BMI result Body Mass Index 32.4 Comfortable Neck is supple Lung: Air entry equal Heart: S1,S2, normal. No rub Abd: Soft. BS + NS : Alert.No asterexis Ext: No edema Const: Other: awake alert no acute distress General: cooperative and no acute distress Orientation/consciousness: patient oriented x3 HEENT: Other: Candidiasis on the tongue Eyes: General: appearance normal, both eyes and all related structures Resp: Other: clear to auscultation bilaterally no rales rhonchi or wheezes Effort & Inspection: normal respiratory effort Auscultation: clear to auscultation bilaterally Cardio: Other: no S4; positive S1-S2; no S3 murmurs rubs or gallops Rate: regular rate Rhythm: regular rhythm GI: Other: soft nontender nondistended normoactive bowel sounds Palpation (GI): Soft to palpation Auscultation: normal bowel sounds Skin: General skin exam: no rashes or lesions noted Neuro: General: patient oriented x3 Cognition (Neuro): normal cognition Extrem: Other: nonhealing ulcer right heel we P but without surrounding erythema Objective Data Labs 12/22/22 06:01 12/23/22 06:29 Labs: Laboratory Results - last 24 hr 12/23/22 12/23/22 12/23/22 06:29 07:20 10:51 Sodium 132 L Potassium 4.5 Chloride 106 Carbon Dioxide 17 L Anion Gap 14 BUN 24 H Creatinine 3.18 H Estim Creat Clear Calc 24.4 Estimated GFR 20 POC Glucose 293 H 228 H Random Glucose 300 H Calcium 8.5 Urine Color Urine Appearance Urine pH Ur Specific [place] Urine Protein Urine Glucose (UA) Urine Ketones Urine Blood Urine Nitrite Ur Leukocyte Esterase Urine RBC Urine WBC Ur Squamous Epith Cells Urine Bacteria Hyaline Casts 12/23/22 12/23/22 12/23/22 16:17 17:42 19:51 Sodium Potassium Chloride Carbon Dioxide Anion Gap BUN Creatinine Estim Creat Clear Calc Estimated GFR POC Glucose 183 H 263 H Random Glucose Calcium Urine Color Yellow Urine Appearance Clear Urine pH 5.5 Ur Specific [place] 1.010 Urine Protein 30 (1+) H Urine Glucose (UA) 500 H Urine Ketones Negative Urine Blood Negative Urine Nitrite Negative Ur Leukocyte Esterase Negative Urine RBC 0-2 Urine WBC 0-5 Ur Squamous Epith Cells 0-2 Urine Bacteria None Seen Hyaline Casts 0-2 Microbiology Microbiology Results: Microbiology 12/19/22 00:39 Blood - Venous Blood Culture - Preliminary No growth after 48 hours. 12/19/22 00:39 Blood - Venous Blood Culture - Preliminary No growth after 48 hours. Procedures Date of Service Date of Service: 12/23/22 Assessment & Plan Assessment and plan (1) BEATRIZ (acute kidney injury): Status: Acute (2) Candidiasis of mouth: Status: Acute Plan [facility] HAS CHRONIC KIDNEY DISEASE status post disease donor kidney transplant in 2013. Baseline creatinine has been around 2.0-2.8 mg/dL. Over the last 4 months I have gradually increased serum creatinine. As of November 24 BUN was 40 creatinine was 3.2. At the time of admission his creatinine was 3.6 mg/dL. Now down to 3.18 He has been admitted with difficulty swallowing most likely due to oral thrush. He has acute kidney injury superimposed on chronic kidney disease. Acute kidney injury could be due to dehydration. Due to poor p.o. intake. However other causes including rejection and tacro toxicity should be considered. I concur with treating oral thrush. IVF reordered Urine studies ordered Renal USG of transplanted kidney tacrolimus levels is still pending Continue to avoid nephrotoxic agents. At risk for vanco toxicity. Follow levels closely and adjust dose accordingly. Last vanco loss 15.9 on 12/20/2022. Likely vanco has been discontinued. sodium bicarbonate p.o. to correct acidosis . Time Spent With Patient Time: Total time managing care of this patient today ____ minutes. Progress Note: Quality Stroke Does the patient have a stroke diagnosis?: No
[2022-12-24] MEDS: Heparin Sodium,Porcine 5,000 UNIT/ML VIAL 5000 UNIT SUBCUT (01:52)
[2022-12-24 03:16] VITALS: BP 154/81; PULSE 82; RESP 18; TEMP 36.8; O2SAT 97
[2022-12-24] MEDS: Omeprazole 20 MG CAPSULE.DR PO (05:33)
[2022-12-24 06:43] LABS: Hematocrit 36.5 % (42.0-52.0); Hemoglobin 11.8 g/dl (14.0-18.0); Mean Corpuscular HGB Conc 32.3 g/dl (31.0-36.0); Mean Corpuscular Hemoglobin 27.3 pg (27.0-33.0); Mean Corpuscular Volume 84.5 fL (80.0-98.0); Mean Platelet Volume 10.9 fL (9.4-12.4); Platelet Count 187 X10*3/uL (160-400); Red Blood Count 4.32 X10*6/uL (4.60-5.80); White Blood Count 7.1 X10*3/uL (4.8-10.8)
[2022-12-24 07:12] LABS: Anion Gap 14 (12-20); Blood Urea Nitrogen 19 mg/dL (9-16); Calcium 8.7 mg/dL (8.4-10.2); Carbon Dioxide 17 mmol/L (22-29); Chloride 107 mmol/L (96-108); Creatinine Clr Calc Pharmacy 27.9; Estimated Glomerular Filt Rate 24; Glucose Fasting 276 mg/dL (60-99); Potassium 4.7 mmol/L (3.3-5.1); Sodium 133 mmol/L (135-145)
[2022-12-24 07:13] VITALS: BP 134/69; PULSE 79; RESP 20; TEMP 36.9; O2SAT 95
[2022-12-24] MEDS: Insulin Lispro 100 UNIT/ML 3 ML VIAL SUBCUT ×2 (07:56→11:49)
[2022-12-24] MEDS: Metoprolol Succinate ER 25 MG TAB.ER.24H PO (07:58)
[2022-12-24] MEDS: Aspirin Enteric Coated 81 MG TABLET.DR PO (07:58)
[2022-12-24] MEDS: DULoxetine HCl 20 MG CAPSULE.DR PO (07:58)
[2022-12-24] MEDS: hydrOXYzine HCL 10 MG TABLET PO (07:59)
[2022-12-24] MEDS: Lidocaine 4 % Patch ADH..PATCH 1 PATCH TRANSDERMA (07:59)
[2022-12-24] MEDS: amLODIPine Besylate 5 MG TABLET PO (07:59)
[2022-12-24] MEDS: calcitrioL 0.25 MCG CAPSULE 0.5 MCG PO (07:59)
[2022-12-24] MEDS: Tacrolimus 1 MG CAPSULE 2 MG PO (07:59)
[2022-12-24] MEDS: Atorvastatin Calcium 10 MG TABLET PO (07:59)
--- NOTE | 2022-12-24 09:11 | HO.PM.IMPN ---
Subjective Subjective Date of Service: 12/24/22 Interval History: still with difficulty eating Physical Exam Vital Signs: Vital Signs: Last Vital Signs Temp 98.4 F 12/24/22 07:13 Pulse 79 12/24/22 07:13 Resp 20 12/24/22 07:13 BP 134/69 12/24/22 07:13 Pulse Ox 95 12/24/22 07:13 O2 Del Method Room Air 12/24/22 07:13 BMI result Body Mass Index 32.4 Comfortable Neck is supple Lung: Air entry equal Heart: S1,S2, normal. No rub Abd: Soft. BS + NS : Alert.No asterexis Ext: No edema Const: Other: awake alert no acute distress General: cooperative and no acute distress Orientation/consciousness: patient oriented x3 HEENT: Other: Candidiasis on the tongue Eyes: General: appearance normal, both eyes and all related structures Resp: Other: clear to auscultation bilaterally no rales rhonchi or wheezes Effort & Inspection: normal respiratory effort Auscultation: clear to auscultation bilaterally Cardio: Other: no S4; positive S1-S2; no S3 murmurs rubs or gallops Rate: regular rate Rhythm: regular rhythm GI: Other: soft nontender nondistended normoactive bowel sounds Palpation (GI): Soft to palpation Auscultation: normal bowel sounds Skin: General skin exam: no rashes or lesions noted Neuro: General: patient oriented x3 Cognition (Neuro): normal cognition Extrem: Other: nonhealing ulcer right heel we P but without surrounding erythema Objective Data Active Medications Acetaminophen (Acetaminophen 325 Mg Tablet) 650 mg PO Q6H PRN PRN Reason: Pain, Mild (Pain Scale 1-3) Last Admin: 12/23/22 08:33 Dose: 650 mg Documented By: JODY Albuterol Sulfate (Albuterol Sulfate (0.083%) 2.5 Mg/3 Ml Vial.Neb) 2.5 mg INHALE TID PRN PRN Reason: Respiratory Distress Albuterol Sulfate (Albuterol Sulfate 90 Mcg 8 Gm Inhaler) 2 puff INHALE Q4H PRN PRN Reason: wheezing Amlodipine Besylate (Amlodipine Besylate 5 Mg Tablet) 5 mg PO DAILY [facility]; Protocol Last Admin: 12/24/22 07:59 Dose: 5 mg Documented By: BAYLEE Aspirin (Aspirin Enteric Coated 81 Mg Tablet.) 81 mg PO DAILY [facility] Last Admin: 12/24/22 07:58 Dose: 81 mg Documented By: BAYLEE Atorvastatin Calcium (Atorvastatin Calcium 10 Mg Tablet) 10 mg PO DAILY [facility] Last Admin: 12/24/22 07:59 Dose: 10 mg Documented By: BAYLEE Calcitriol (Calcitriol 0.25 Mcg Capsule) 0.5 mcg PO DAILY [facility] Last Admin: 12/24/22 07:59 Dose: 0.5 mcg Documented By: BAYLEE Dextrose (Dextrose 50 % 25 Gm/50 Ml Syringe) 25 gm IVPUSH Q15M PRN; Protocol PRN Reason: per Hypoglycemia Standing Ord. Docusate Sodium (Docusate Sodium 100 Mg Capsule) 100 mg PO DAILY PRN PRN Reason: Constipation Duloxetine HCl (Duloxetine Hcl 20 Mg Capsule.) 20 mg PO DAILY [facility] Last Admin: 12/24/22 07:58 Dose: 20 mg Documented By: BAYLEE Famotidine (Famotidine 20 Mg Tablet) 40 mg PO BEDTIME [facility] Last Admin: 12/23/22 20:22 Dose: 40 mg Documented By: COURTNEY Fluconazole (Fluconazole 100 Mg Tablet) 100 mg PO DAILY [facility] Last Admin: 12/24/22 07:58 Dose: 100 mg Documented By: BAYLEE Gabapentin (Gabapentin 100 Mg Capsule) 100 mg PO BEDTIME [facility] Last Admin: 12/23/22 20:22 Dose: 100 mg Documented By: COURTNEY Glucose (Glucose Gel 15 Gm Gel..Gram.) 15 gm PO Q15M PRN; Protocol PRN Reason: per Hypoglycemia Standing Ord. Last Admin: 12/20/22 07:59 Dose: 15 gm Documented By: TAVO Heparin Sodium (Porcine) (Heparin Sodium,Porcine 5,000 Unit/Ml Vial) 5,000 unit SUBCUT Q12H [facility] Last Admin: 12/24/22 01:52 Dose: 5,000 unit Documented By: BOGDAN Hydroxyzine HCl (Hydroxyzine Hcl 10 Mg Tablet) 10 mg PO BID [facility] Last Admin: 12/24/22 07:59 Dose: 10 mg Documented By: BAYLEE Sodium Chloride (Ns) 1,000 mls @ 100 mls/hr IVCONT .Q10H [facility] Last Admin: 12/24/22 05:33 Dose: 100 mls/hr Documented By: COURTNEY Insulin Glargine (Insulin Glargine,Hum.Rec.Anlog 100 Unit/Ml 10 Ml Vial) 55 unit SUBCUT BEDTIME [facility] Insulin Human Lispro (Insulin Lispro 100 Unit/Ml 3 Ml Vial) 0 unit SUBCUT QIDACHS [facility]; Protocol Last Admin: 12/24/22 07:56 Dose: 6 unit Documented By: BAYLEE Insulin Human Lispro (Insulin Lispro 100 Unit/Ml 3 Ml Vial) 7 unit SUBCUT TIDWM [facility] Last Admin: 12/24/22 07:56 Dose: 7 unit Documented By: BAYLEE Lidocaine (Lidocaine 4 % Patch Adh..Patch) 1 patch TRANSDERMA DAILY [facility] Last Admin: 12/24/22 07:59 Dose: 1 patch Documented By: BAYLEE Lidocaine/Diphenhydr/Alum/Mg/Simeth (Mag&Al/Sim/Diphenhyd/Lidocaine 10 Ml Oral.Susp) 10 ml PO Q4H PRN; Protocol PRN Reason: throat pain Last Admin: 12/24/22 08:06 Dose: 10 ml Documented By: BAYLEE Loperamide HCl (Loperamide Hcl 2 Mg Capsule) 2 mg PO Q6H PRN PRN Reason: Diarrhea Last Admin: 12/23/22 12:31 Dose: 2 mg Documented By: JODY Metoprolol Succinate (Metoprolol Succinate Er 25 Mg Tab.Er.24h) 25 mg PO DAILY [facility]; Protocol Last Admin: 12/24/22 07:58 Dose: 25 mg Documented By: BAYLEE Mupirocin (Mupirocin 2 % Oint 22 Gm Tube) 1 appl TOPICAL TID [facility]; Protocol Last Admin: 12/23/22 20:30 Dose: 1 appl Documented By: COURTNEY Omeprazole (Omeprazole 20 Mg Capsule.Dr) 20 mg PO DAILY@30 [facility] Last Admin: 12/24/22 05:33 Dose: 20 mg Documented By: COURTNEY Ondansetron HCl (Ondansetron Hcl 4 Mg/2 Ml Vial) 4 mg IVPUSH Q8H PRN PRN Reason: Nausea and Vomiting Last Admin: 12/23/22 09:05 Dose: 4 mg Documented By: JODY Sodium Bicarbonate (Sodium Bicarbonate 650 Mg Tablet) 650 mg PO TID [facility] Last Admin: 12/24/22 07:59 Dose: 650 mg Documented By: BAYLEE Sodium Chloride (0.9 % Sodium Chloride Flush 3 Ml Syringe) 3 ml IVFLUSH QSHIFT [facility] Last Admin: 12/24/22 08:06 Dose: Not Given Documented By: BAYLEE Non-Admin Reason: IV Running Tacrolimus (Tacrolimus 1 Mg Capsule) 2 mg PO BID [facility] Last Admin: 12/24/22 07:59 Dose: 2 mg Documented By: BAYLEE Trazodone HCl (Trazodone Hcl 25 Mg Halftab) 25 mg PO BEDTIME [facility] Last Admin: 12/23/22 20:22 Dose: 25 mg Documented By: COURTNEY Labs 12/24/22 06:04 12/24/22 06:04 Labs: Laboratory Results - last 24 hr 12/23/22 12/23/22 12/23/22 10:51 16:17 17:42 MCV MCH MCHC RDW Plt Count MPV Absolute Nucleated RBC Nucleated RBC % (auto) Anion Gap Estim Creat Clear Calc Estimated GFR POC Glucose 228 H 183 H Fasting Glucose Calcium Urine Color Yellow Urine Appearance Clear Urine pH 5.5 Ur Specific [place] 1.010 Urine Protein 30 (1+) H Urine Glucose (UA) 500 H Urine Ketones Negative Urine Blood Negative Urine Nitrite Negative Ur Leukocyte Esterase Negative Urine RBC 0-2 Urine WBC 0-5 Ur Squamous Epith Cells 0-2 Urine Bacteria None Seen Hyaline Casts 0-2 U Random Total Protein Ur Random Sodium Urine Creatinine 12/23/22 12/23/22 12/24/22 17:42 19:51 06:04 MCV 84.5 MCH 27.3 MCHC 32.3 RDW 15.0 Plt Count 187 MPV 10.9 Absolute Nucleated RBC 0.000 Nucleated RBC % (auto) 0.0 Anion Gap Estim Creat Clear Calc Estimated GFR POC Glucose 263 H Fasting Glucose Calcium Urine Color Urine Appearance Urine pH Ur Specific [place] Urine Protein Urine Glucose (UA) Urine Ketones Urine Blood Urine Nitrite Ur Leukocyte Esterase Urine RBC Urine WBC Ur Squamous Epith Cells Urine Bacteria Hyaline Casts U Random Total Protein 11 Ur Random Sodium 47.0 Urine Creatinine 55.23 12/24/22 12/24/22 06:04 07:16 MCV MCH MCHC RDW Plt Count MPV Absolute Nucleated RBC Nucleated RBC % (auto) Anion Gap 14 Estim Creat Clear Calc 27.9 Estimated GFR 24 POC Glucose 267 H Fasting Glucose 276 H Calcium 8.7 Urine Color Urine Appearance Urine pH Ur Specific [place] Urine Protein Urine Glucose (UA) Urine Ketones Urine Blood Urine Nitrite Ur Leukocyte Esterase Urine RBC Urine WBC Ur Squamous Epith Cells Urine Bacteria Hyaline Casts U Random Total Protein Ur Random Sodium Urine Creatinine Microbiology Microbiology Results: Microbiology 12/19/22 00:39 Blood Culture - Final Blood - Venous No growth after 5 days. 12/19/22 00:39 Blood Culture - Final Blood - Venous No growth after 5 days. Assessment and Plan (1) Candidiasis of the esophagus: Status: Acute Plan 57-year-old male past medical history of kidney transplant on immunosuppressants presented to the hospital with complaints difficulty swallowing Acute odynophagia (secondary to oral candidiasis in the backdrop of not rinsing after steroid inhalers per patient ) on p.o. fluconazole to complete? 10 day course, end date encouraged rinsing after inhalers, will change solids to NDD2, and add magic mouthwash Diabetic ulcer of right foot no evidence of acute infection...ESR/CRP flat. 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 BEATRIZ -resolving, but slower than expected, avoid nephrotoxins, Nephro following -follow renals/divalents .History of kidney transplant - continue prednisone and tacrolimus, tacrolimus level pending .Hypertension toprol .Diabetes Mellitus II - labile blood sugars, on Lantus 48 unit on bedtime and 5 units before meals - Lispro correctional scale, diabetic diet - adjust as indicated acute Metabolic acidosis po soda bicarb monitor dvt prophylaxis - hep sq full code ?requires ongoing hospitalization to monitor renal function in backdrop of kidney transplant. Time Spent With Patient Time: Total time managing care of this patient today ____ minutes. Quality Stroke Does the patient have a stroke diagnosis?: No VTE Prior VTE?: No VTE Risk Level:: Medical - moderate - high VTE Device Contraindication: Treatment Not Indicated VTE Drug Contraindication: N/A - Med Ordered
[2022-12-24 11:15] VITALS: BP 142/75; PULSE 73; RESP 20; TEMP 37.2; O2SAT 97
--- NOTE | 2022-12-24 13:23 | PM.DS ---
DS: Providers Provider Date of Service: 12/24/22 Date of admission: 12/19/22 01:05 Primary care physician: Zoraida Luo MD Consults: 12/19/22 07:29 Consult to Nephrology Routine Consulting Provider: Goyo Juan Reason for consultation: BEATRIZ in backdrop of transplant Has provider been notified: No DS: Diagnosis Discharge Diagnosis (1) Candidiasis of the esophagus: Status: Acute DS: Summary Hospital Course Hospital Course: from initial hpi: 57-year-old male with past medical history of kidney transplant on immunosuppressant, diabetes, diabetic ulcer, who comes into the hospital with complaints of throat pain and difficulty swallowing as will right heel pain..? Patient reports that for the past several days he has had difficulty with swallowing solids as well as pain in the heel.? Patient reports that he follows up with wound clinic, he had wound dressing change today and was not told that he needed antibiotics but because the pain has been so severe, he decided to come to the ED.? He also complaints of swallowing liquids as well as solids for the past several week worsened over the past 2 days, He states that he uses an inhaler and does not rinse his mouth after, On arrival to the ED patient hemodynamically stable Labs are significant for VC count of 13.6, creatinine of 3.83 which is significantly higher than his baseline ESR 17, CRP not elevated X-ray of the foot shows no osteomyelitis hospital course: Patient was admitted for acute odynophagia secondary to oral candidiasis in the backdrop not rinsing after steroid inhalers. He was treated with Diflucan with some improvement, he will continue 6 more days of p.o. Diflucan as outpatient. Patient reports being able to tolerate food. His diabetic foot ulcer of the right lower extremity there was no evidence of infection. Initially treated with IV antibiotics but discontinued due to renal function, MRI was negative for osteomyelitis. He will follow up with wound care as outpatient. For patient's acute kidney injury on chronic kidney disease stage 4 in patient with renal transplant patient slowly responded to IV fluids, still not back at baseline and will follow up with Nephrology as outpatient. Beatriz I was complicated by acute metabolic acidosis and patient was started on sodium bicarb p.o.. For hypertension was continue on Toprol. For diabetes on insulin. Patient is feeling better will be discharged home. Time Spent with Patient Time attestation: Total time managing care of this patient today ____ minutes. Discharge coordination time: Greater than 30 minutes Quality: Safe Use of Opioids Does Pt have an Active Cancer Diagnosis on the Problem List?: No Quality: Stroke Does the patient have a stroke diagnosis?: No Physical Exam Vital Signs: Vital Signs: Last Vital Signs Temp 98.9 F 12/24/22 11:15 Pulse 73 12/24/22 11:15 Resp 20 12/24/22 11:15 BP 142/75 H 12/24/22 11:15 Pulse Ox 97 12/24/22 11:15 O2 Del Method Room Air 12/24/22 11:15 BMI result Body Mass Index 32.4 Comfortable Neck is supple Lung: Air entry equal Heart: S1,S2, normal. No rub Abd: Soft. BS + NS : Alert.No asterexis Ext: No edema Const: Other: awake alert no acute distress General: cooperative and no acute distress Orientation/consciousness: patient oriented x3 HEENT: Other: Candidiasis on the tongue Eyes: General: appearance normal, both eyes and all related structures Resp: Other: clear to auscultation bilaterally no rales rhonchi or wheezes Effort & Inspection: normal respiratory effort Auscultation: clear to auscultation bilaterally Cardio: Other: no S4; positive S1-S2; no S3 murmurs rubs or gallops Rate: regular rate Rhythm: regular rhythm GI: Other: soft nontender nondistended normoactive bowel sounds Palpation (GI): Soft to palpation Auscultation: normal bowel sounds Skin: General skin exam: no rashes or lesions noted Neuro: General: patient oriented x3 Cognition (Neuro): normal cognition Extrem: Other: nonhealing ulcer right heel we P but without surrounding erythema DS: Data Data Completed and Pending Labs on day of discharge: Laboratory Results - last 24 hr 12/23/22 12/23/22 12/23/22 16:17 17:42 17:42 WBC RBC Hgb Hct MCV MCH MCHC RDW Plt Count MPV Absolute Nucleated RBC Nucleated RBC % (auto) Sodium Potassium Chloride Carbon Dioxide Anion Gap BUN Creatinine Estim Creat Clear Calc Estimated GFR POC Glucose 183 H Fasting Glucose Calcium Urine Color Yellow Urine Appearance Clear Urine pH 5.5 Ur Specific [place] 1.010 Urine Protein 30 (1+) H Urine Glucose (UA) 500 H Urine Ketones Negative Urine Blood Negative Urine Nitrite Negative Ur Leukocyte Esterase Negative Urine RBC 0-2 Urine WBC 0-5 Ur Squamous Epith Cells 0-2 Urine Bacteria None Seen Hyaline Casts 0-2 U Random Total Protein 11 Ur Random Sodium 47.0 Urine Creatinine 55.23 12/23/22 12/24/22 12/24/22 19:51 06:04 06:04 WBC 7.1 RBC 4.32 L Hgb 11.8 L Hct 36.5 L MCV 84.5 MCH 27.3 MCHC 32.3 RDW 15.0 Plt Count 187 MPV 10.9 Absolute Nucleated RBC 0.000 Nucleated RBC % (auto) 0.0 Sodium 133 L Potassium 4.7 Chloride 107 Carbon Dioxide 17 L Anion Gap 14 BUN 19 H Creatinine 2.78 H Estim Creat Clear Calc 27.9 Estimated GFR 24 POC Glucose 263 H Fasting Glucose 276 H Calcium 8.7 Urine Color Urine Appearance Urine pH Ur Specific [place] Urine Protein Urine Glucose (UA) Urine Ketones Urine Blood Urine Nitrite Ur Leukocyte Esterase Urine RBC Urine WBC Ur Squamous Epith Cells Urine Bacteria Hyaline Casts U Random Total Protein Ur Random Sodium Urine Creatinine 12/24/22 12/24/22 07:16 11:15 WBC RBC Hgb Hct MCV MCH MCHC RDW Plt Count MPV Absolute Nucleated RBC Nucleated RBC % (auto) Sodium Potassium Chloride Carbon Dioxide Anion Gap BUN Creatinine Estim Creat Clear Calc Estimated GFR POC Glucose 267 H 204 H Fasting Glucose Calcium Urine Color Urine Appearance Urine pH Ur Specific [place] Urine Protein Urine Glucose (UA) Urine Ketones Urine Blood Urine Nitrite Ur Leukocyte Esterase Urine RBC Urine WBC Ur Squamous Epith Cells Urine Bacteria Hyaline Casts U Random Total Protein Ur Random Sodium Urine Creatinine Discharge Plan Discharge Anticipated Discharge Date/Time: 12/24/22 13:20 Patient Disposition: Home, Self-Care Discharge Diagnosis: beatriz Referrals: Zoraida Luo MD [Primary Care Provider] - Discharge Medications: New fluconazole 100 mg Tablet 100 mg PO DAILY Qty: 6 0RF sodium bicarbonate 650 mg Tablet 650 mg PO TID Qty: 90 0RF Continued albuterol sulfate 2.5 mg /3 mL (0.083 %) solution for nebulization 1 amp inhalation TID PRN (Reason: Respiratory Distress) atorvastatin 10 mg tablet 10 mg PO DAILY amlodipine 5 mg tablet 5 mg PO DAILY aspirin 81 mg tablet,delayed release (DR/EC) 81 mg PO DAILY tramadol 50 mg tablet 50 mg PO Q6H PRN (Reason: moderate pain) calcitriol 0.5 mcg capsule 0.5 mcg PO DAILY albuterol sulfate [ProAir HFA] 90 mcg/actuation HFA aerosol inhaler 2 puff PO Q4H PRN (Reason: wheezing) tacrolimus 1 mg capsule 2 mg PO BID Patient Comments: PATIENTS DOSE WAS RECENTLY DECREASED TO 2 IN THE AM INSTEAD OF 3 insulin lispro [Humalog KwikPen Insulin] 100 unit/mL insulin pen 5 unit subcut TIDWM duloxetine 20 mg capsule,delayed release(DR/EC) 20 mg PO DAILY cholecalciferol (vitamin D3) 1,250 mcg (50,000 unit) capsule 1 cap PO SA@1000 insulin glargine [Lantus Solostar U-100 Insulin] 100 unit/mL (3 mL) insulin pen 48 unit subcut BEDTIME famotidine 40 mg Tablet 40 mg PO BEDTIME gabapentin 100 mg Capsule 100 mg PO BEDTIME ferrous sulfate [FeroSul] 325 mg (65 mg iron) tablet 325 mg PO QAM acetaminophen 500 mg Tablet 500 mg PO Q8H PRN (Reason: Pain) esomeprazole magnesium 40 mg Capsule,Delayed Release(Dr/Ec) 40 mg PO DAILY@0630 lidocaine 5 % adhesive patch,medicated 1 patch topical DAILY hydroxyzine HCl 10 mg tablet 10 mg PO BID trazodone 50 mg tablet 25 mg PO BEDTIME metoprolol succinate [Toprol XL] 25 mg tablet extended release 24 hr 25 mg PO DAILY Qty: 90 3RF Discharge Orders: Discharge Order (Routine); Ordered 12/24/22 Ordered By: Julien Albarado Diet: Advance to usual diet Activity on Discharge: As tolerated Stand Alone Forms: Patient Portal Discharge page Print Language: Urdu Care Plan Goals: recovery Health Concerns: beatriz, saji, foot wound Plan of Treatment: diflucan, follow up wound clinic, yair verduzco, follow up with nephrology Assessment: see above Patient Instructions: Oral Candidiasis (ED), Esophagitis (ED)
--- NOTE | 2022-12-24 13:30 | MHC.CM.PN ---
Patient has been medically cleared for dc to home today, self care.
--- NOTE | 2022-12-24 13:44 | MHC.CM.PN ---
Patient was active with NA, who has been made aware of today's dc; CM informed MD.
--- NOTE | 2022-12-24 13:53 | PM.PNNEP ---
Subjective Subjective Date of Service: 03/30/23 Interval history: still with difficulty eating Physical Exam Vital Signs: Vital Signs: Last Vital Signs Temp 98.9 F 12/24/22 11:15 Pulse 73 12/24/22 11:15 Resp 20 12/24/22 11:15 BP 142/75 H 12/24/22 11:15 Pulse Ox 97 12/24/22 11:15 O2 Del Method Room Air 12/24/22 11:15 BMI result Body Mass Index 32.4 Objective Data Labs 12/24/22 06:04 12/24/22 06:04 Labs: Laboratory Results - last 24 hr 12/23/22 12/23/22 12/23/22 16:17 17:42 17:42 WBC RBC Hgb Hct MCV MCH MCHC RDW Plt Count MPV Absolute Nucleated RBC Nucleated RBC % (auto) Sodium Potassium Chloride Carbon Dioxide Anion Gap BUN Creatinine Estim Creat Clear Calc Estimated GFR POC Glucose 183 H Fasting Glucose Calcium Urine Color Yellow Urine Appearance Clear Urine pH 5.5 Ur Specific [place] 1.010 Urine Protein 30 (1+) H Urine Glucose (UA) 500 H Urine Ketones Negative Urine Blood Negative Urine Nitrite Negative Ur Leukocyte Esterase Negative Urine RBC 0-2 Urine WBC 0-5 Ur Squamous Epith Cells 0-2 Urine Bacteria None Seen Hyaline Casts 0-2 U Random Total Protein 11 Ur Random Sodium 47.0 Urine Creatinine 55.23 12/23/22 12/24/22 12/24/22 19:51 06:04 06:04 WBC 7.1 RBC 4.32 L Hgb 11.8 L Hct 36.5 L MCV 84.5 MCH 27.3 MCHC 32.3 RDW 15.0 Plt Count 187 MPV 10.9 Absolute Nucleated RBC 0.000 Nucleated RBC % (auto) 0.0 Sodium 133 L Potassium 4.7 Chloride 107 Carbon Dioxide 17 L Anion Gap 14 BUN 19 H Creatinine 2.78 H Estim Creat Clear Calc 27.9 Estimated GFR 24 POC Glucose 263 H Fasting Glucose 276 H Calcium 8.7 Urine Color Urine Appearance Urine pH Ur Specific [place] Urine Protein Urine Glucose (UA) Urine Ketones Urine Blood Urine Nitrite Ur Leukocyte Esterase Urine RBC Urine WBC Ur Squamous Epith Cells Urine Bacteria Hyaline Casts U Random Total Protein Ur Random Sodium Urine Creatinine 12/24/22 12/24/22 07:16 11:15 WBC RBC Hgb Hct MCV MCH MCHC RDW Plt Count MPV Absolute Nucleated RBC Nucleated RBC % (auto) Sodium Potassium Chloride Carbon Dioxide Anion Gap BUN Creatinine Estim Creat Clear Calc Estimated GFR POC Glucose 267 H 204 H Fasting Glucose Calcium Urine Color Urine Appearance Urine pH Ur Specific [place] Urine Protein Urine Glucose (UA) Urine Ketones Urine Blood Urine Nitrite Ur Leukocyte Esterase Urine RBC Urine WBC Ur Squamous Epith Cells Urine Bacteria Hyaline Casts U Random Total Protein Ur Random Sodium Urine Creatinine Microbiology Microbiology Results: Microbiology 12/19/22 00:39 Blood - Venous Blood Culture - Final No growth after 5 days. 12/19/22 00:39 Blood - Venous Blood Culture - Final No growth after 5 days. Procedures Date of Service Date of Service: 03/30/23 Assessment & Plan Time Spent With Patient Time: Total time managing care of this patient today ____ minutes. Progress Note: Quality Stroke Does the patient have a stroke diagnosis?: No
[2022-12-26 08:27] LABS: Tacrolimus Prograf 8.5
== END 2022-12-24 14:31 | disposition home health service (06) | DRG 380 ==
LOC: HO.ED 12-19 00:31 → HO.EDOVER 12-19 01:20 → HO.IMC 12-19 02:21
PROVIDERS: Hospitalist; Internal Medicine Hypertension Specialist; Physician Assistant; Admitting Provider Internal Medicine; Emergency Provider Student in an Organized Health Care Education/Training Program; PCP Family Medicine; Visit Provider Internal Medicine
DX: E11.621 Type 2 diabetes mellitus with foot ulcer (principal); L97.412 Non-pressure chronic ulcer of right heel and midfoot with fat layer exposed; T86.19 Other complication of kidney transplant; B37.0 Candidal stomatitis; N17.9 Acute kidney failure, unspecified; B37.81 Candidal esophagitis; E87.21 Acute metabolic acidosis; D84.821 Immunodeficiency due to drugs; E86.0 Dehydration; Z91.199 Patient's noncompliance with other medical treatment and regimen due to unspecified reason; Z79.4 Long term (current) use of insulin; Z79.52 Long term (current) use of systemic steroids; Z79.621 Long term (current) use of calcineurin inhibitor; Z79.899 Other long term (current) drug therapy
CPT/HCPCS: 36415; 73630; 73720; 76775; 80048; 80053; 80197; 80202; 81001; 82947; 83605; 84156; 84300; 85025; 85027; 85652; 86140; 87040; 87493; 87651; 99285; A9585; J1450; J1643; J2405; J2543; J3370

== ENCOUNTER 2022-12-25 11:42 | Outpatient (REF) | payer MEDICAID, SELFPAY | END 2022-12-25 11:43 | disposition home or self-care (01) | LOC: HO.LAB 11:42 | PROVIDERS: PCP Family Medicine; Visit Provider Radiology Vascular & Interventional Radiology | DX: R79.89 Other specified abnormal findings of blood chemistry (principal); R94.4 Abnormal results of kidney function studies | CPT/HCPCS: 36415; 82565; 84520 ==

== ENCOUNTER 2023-01-07 12:35 | Emergency (ER) | payer MEDICAID, SELFPAY ==
--- NOTE | ~2023-01-07 | XR_ITS ---
EXAMINATION: XR FOOT, RIGHT CLINICAL INFORMATION: Diabetic wounds. COMPARISON: None available. TECHNIQUE: AP, lateral, and oblique views of the right foot. XR/XR foot RT min 3V FINDINGS/IMPRESSION: Examination demonstrates a soft tissue defect over the posterior aspect of the heel. A small amount of subcutaneous air may track along the plantar fascia as well. No definite subjacent lytic lesion or periosteal reaction is appreciated. The patient is status post amputation across the proximal aspect of the right fifth proximal phalanx. No acute fracture or dislocation is seen. The joint spaces appear maintained. Extensive small vessel arterial calcification suggests diabetic and/or renal calcific atherosclerosis.
[2023-01-07 12:56] VITALS: BP 122/42; PULSE 85; RESP 18; TEMP 36.6; O2SAT 98
--- NOTE | 2023-01-07 12:57 | ED.GENADULT ---
HPI - General Adult General Chief complaint: Wound/Laceration Stated complaint: right leg pain Time Seen by Provider: 01/07/23 14:26 Source: patient Limitations: no limitations History of Present Illness HPI narrative: 57-year-old male presents with heel pain. Patient has a heel ulcer. He is diabetic. Poorly controlled. He is followed by wound care. He has been having increasing pain over the past 3-4 days. He has had no fevers or chills. No nausea vomiting. The pain is sharp in achy in nature. It can radiate proximally. He does describe that there has been some drainage from the foot. He denies any redness. Related Data Home Medications Medication Instructions Recorded Confirmed albuterol sulfate 2.5 mg/3 mL 1 amp inhalation TID PRN 08/26/21 12/19/22 (0.083 %) solution for nebulization Respiratory Distress albuterol sulfate 90 mcg/actuation 2 puff PO Q4H PRN wheezing 08/26/21 12/19/22 aerosol inhaler (ProAir HFA) amlodipine 5 mg tablet 5 mg PO DAILY 08/26/21 12/19/22 aspirin 81 mg tablet,delayed 81 mg PO DAILY 08/26/21 12/19/22 release atorvastatin 10 mg tablet 10 mg PO DAILY 08/26/21 12/19/22 calcitriol 0.5 mcg capsule 0.5 mcg PO DAILY 08/26/21 12/19/22 cholecalciferol (vitamin D3) 1,250 1 cap PO SA@1000 08/26/21 12/19/22 mcg (50,000 unit) capsule duloxetine 20 mg capsule,delayed 20 mg PO DAILY 08/26/21 12/19/22 release insulin glargine 100 unit/mL (3 48 unit subcut BEDTIME 08/26/21 12/19/22 mL) subcutaneous pen (Lantus Solostar U-100 Insulin) insulin lispro 100 unit/mL 5 unit subcut TIDWM 08/26/21 12/19/22 subcutaneous pen (Humalog KwikPen (U-100) Insulin) tacrolimus 1 mg capsule, 2 mg PO BID 08/26/21 12/19/22 immediate-release tramadol 50 mg tablet 50 mg PO Q6H PRN moderate pain 08/26/21 12/19/22 famotidine 40 mg tablet 40 mg PO BEDTIME 12/11/21 12/19/22 gabapentin 100 mg capsule 100 mg PO BEDTIME 12/11/21 12/19/22 hydroxyzine HCl 10 mg tablet 10 mg PO BID 09/24/22 12/19/22 trazodone 50 mg tablet 25 mg PO BEDTIME 09/24/22 12/19/22 acetaminophen 500 mg tablet 500 mg PO Q8H PRN Pain 10/20/22 12/19/22 esomeprazole magnesium 40 mg 40 mg PO DAILY@0630 10/20/22 12/19/22 capsule,delayed release lidocaine 5 % topical patch 1 patch topical DAILY 11/02/22 12/19/22 ferrous sulfate 325 mg (65 mg 325 mg PO QAM 12/19/22 12/19/22 iron) tablet (FeroSul) Previous Rx's Medication Instructions Recorded metoprolol succinate 25 mg 25 mg PO DAILY #90 tabs 09/24/22 tablet,extended release 24 hr (Toprol XL) fluconazole 100 mg tablet 100 mg PO DAILY #6 tabs 12/24/22 sodium bicarbonate 650 mg tablet 650 mg PO TID #90 tabs 12/24/22 oxycodone 5 mg tablet 5 mg PO Q8H PRN pain #7 tabs 01/07/23 Allergies Allergy/AdvReac Type Severity Reaction Status Date / Time hydromorphone [From DILAUDID] Allergy Mild ITCHINESS Verified 01/07/23 12:56 diphenhydramine Allergy Unknown UNK Verified 01/07/23 12:56 [From BENADRYL] regadenoson [From Lexiscan] AdvReac Mild Itching Verified 01/07/23 12:56 Review of Systems Review of Systems: CONSTITUTIONAL: Denies weight loss, fever and chills. HEENT: Denies changes in vision and hearing. RESPIRATORY: Denies SOB and cough. CV: Denies palpitations no CP. GI: Denies abdominal pain, nausea, vomiting and diarrhea. : Denies dysuria and urinary frequency. MSK: Denies myalgia and joint pain. Positive for foot pain SKIN: Denies rash and pruritus. Positive for ulceration NEUROLOGICAL: Denies headache and syncope. PSYCHIATRIC: Denies recent changes in mood. Denies anxiety and depression. All other ROS are negative unless in HPI PMFSH Past Medical History Medical History Amputation of fifth toe of right foot Chronic hyperglycemia Diabetes Diabetic infection of right foot History of osteomyelitis HTN (hypertension) Surgical History H/O arteriovenostomy for renal dialysis Renal transplant recipient Family History Family History Other Diabetes No family history of coronary artery disease Social History Social History Household Members: None Housing: Apartment Do you presently have visiting nurse or other home services: No Alcohol intake: never Patient Tobacco Use Status: Never used Tobacco Smoked in Last 30 Days: No e-Cigarette/Vaping Use: Never Used Use of substances other than those prescribed or required for medical reasons: No Advance Directives: Yes Advance Directives on File: Yes Advance Directives Date on File: 01/21/22 service: No Current occupational status: disabled Physical Exam ED Vital Signs: Vital Signs - 24 hr 01/07/23 12:56 01/07/23 14:14 01/07/23 17:00 Temperature 97.8 F 98.8 F 98.1 F Pulse Rate 85 76 67 Respiratory Rate 18 17 16 Blood Pressure 122/42 L 120/72 149/90 H Pulse Oximetry 98 98 98 Oxygen Delivery Method Room Air Room Air Room Air BMI result Body Mass Index 30.0 GEN: Well developed, no acute distress, alert, oriented HEENT: Normocephalic, atraumatic, normal external ears, nose appears normal, no oropharyngeal edema or exudates Eyes: Normal to appearance Neck: Supple, no lymphadenopathy Respiratory: Talks in complete sentences, no respiratory distress, clear to auscultation bilaterally Cardiovascular: Regular rate and rhythm, no murmurs rubs or gallops Abdomen: Soft, nontender, nondistended, no guarding, no rebound Back: No CVA tenderness Extremities: No clubbing cyanosis or edema Neurologic: No focal neurologic deficits, cranial nerves 2-12 intact, strength is 5/5 bilaterally Skin: No rash, 3 cm right heel ulcer, no redness, no purulent drainage, no lymphangitis spread Course Course Course Narrative: This is an RME: Additional HPI, ROS, PE not included below will be deferred to primary provider. This is a 13[id number] speaking male, with a history of diabetes, presenting to the ER with complaints of heel wound x 2.5 months. He does go to the wound clinic, has appt on 01/13/2023, last saw two weeks ago and was told the healing process was going well. He states worsening pain and is unable to sleep at night due to the pain. Denies taking any medications at home to treat his pain. Right heel approximately 2.5cm round, open ulceration with mild erythema noted, TTP. DP pulses 2+. Distal sensation intact. VSS. No fevers or chills. Plan: Basic labs, x-ray ordered. Reevaluation(s) Reevaluation #1: Patient's workup is complete. He does have an elevated white blood cell count. However this has been present in the past. I do not believe this represents sepsis or significant infection based on this physical exam. There is no evidence of osteomyelitis on x-ray. There is no evidence of osteomyelitis on exam based on the inability to probe to the bone. There is no skin erythema or purulent drainage. I doubt cellulitis. This just appears to be a chronic wound with increasing pain and discomfort. Patient does have an elevated creatinine level from his baseline. This has been steadily getting worse. This represents an acute on chronic change. I contacted his [place] attendant, Dr. Mendieta. They have recommended a Tacker alignments level between 5 and 6. His last echo Lyme is level was above this. She does report that this can also cause an increase in his creatinine level. Currently, patient is taking 2 mg attack alignments twice daily. She is recommended to take 2 mg in the morning and 1 mg at night. Additionally, she is recommending to provide patient with IV fluids, total of 1-2 L. This has been provided to the patient he will be discharged. She does not believe he warrants hospitalization for his acute kidney injury. This can be followed up next week with her. She does report that his hemoglobin A1c most recently was 11.8 and he remains poorly controlled. I did discuss care with the patient. He understands that he will be discharged. He will follow up next week with his [place] attendant for further evaluation of his kidney injury. He will return for any worsening or concerning symptoms. Time: 17:55 Medications Administered Generic Name Dose Route Start Last Admin Trade Name Freq PRN Reason Stop Dose Admin Sodium Chloride 1,000 mls @ 999 mls/hr 01/07/23 16:00 01/07/23 16:59 Ns IV 01/07/23 18:00 999 mls/hr .Q1H1M EUNICE Administration Discontinued Medications Generic Name Dose Route Start Last Admin Trade Name Edmundo PRN Reason Stop Dose Admin Oxycodone HCl 5 mg 01/07/23 15:56 01/07/23 16:59 Oxycodone Hcl Immed Release 5 Mg Tablet PO 01/07/23 15:57 5 mg ONCE ONE Administration Medical Decision Making Medical Decision Making [facility] Narrative: 57-year-old male presents with right heel and foot pain. He has an ulceration on examination that does not appear to be infected. She does have wound care and has an appointment next week. Laboratory analysis was ordered prior to my evaluation. Does demonstrate acute on chronic kidney injury. I will reach out to the patient's [place] attendant. Is certainly concerning given that he is a kidney transplant patient. Patient may warrant hospitalization for management of his acute kidney injury. In the meantime, I will provide the patient with analgesia. Differential Diagnosis Differential Diagnoses: The differential diagnosis associated with the presentation includes (Cellulitis, diabetic foot ulcer, osteomyelitis, acute kidney injury, rejection) Admission/Observation Consideration of admission/observation: Escalation of care including admission/observation considered Consult Healthcare Provider Management of the patient was discussed with: Sample Weaver (Worship Pastor) Lab Data [facility] Lab Attestation statement: I reviewed the patient's lab results. 01/07/23 13:20 01/07/23 13:20 Labs: Lab Results 01/07/23 01/07/23 Range/Units 13:20 13:20 WBC 15.7 H (4.8-10.8) X10*3/uL RBC 4.90 (4.60-5.80) X10*6/uL Hgb 13.2 L (14.0-18.0) g/dl Hct 41.2 L (42.0-52.0) % MCV 84.1 (80.0-98.0) fL MCH 26.9 L (27.0-33.0) pg MCHC 32.0 (31.0-36.0) g/dl RDW 14.7 (11.0-16.0) % Plt Count 376 D (160-400) X10*3/uL MPV 9.8 (9.4-12.4) fL Immature Gran % (Auto) 1.5 H (0.0-0.4) % Neut % (Auto) 85.6 H (45-73) % Lymph % (Auto) 3.9 L (20-40) % [place] % (Auto) 8.7 (2-11) % Eos % (Auto) 0.1 (0-4) % Baso % (Auto) 0.2 (0-2) % Lymph # (Auto) 0.6 L (1.2-4.9) X10*3/uL [place] # (Auto) 1.4 H (0.1-1.2) X10*3/uL Eos # (Auto) 0.0 (0.0-0.4) X10*3/uL Baso # (Auto) 0.0 (0.0-0.2) X10*3/uL Abs Immat Gran (auto) 0.23 H (0.00-0.03) X10*3/uL Absolute Neuts (auto) 13.5 H (2.0-8.3) x10*3/uL Absolute Nucleated RBC 0.000 (0.0-0.012) X10*3/uL Nucleated RBC % (auto) 0.0 (0.0-0.2) /100WBC Sodium 131 L (135-145) mmol/L Potassium 4.7 (3.3-5.1) mmol/L Chloride 109 H (96-108) mmol/L Carbon Dioxide 11 L (22-29) mmol/L Anion Gap 16 (12-20) BUN 40 H (9-16) mg/dL Creatinine 4.41 H* (0.5-1.4) mg/dL Estim Creat Clear Calc 16.9 Estimated GFR 14 Random Glucose 286 H (60-115) mg/dL Calcium 9.4 D (8.4-10.2) mg/dL Radiology Impression Discussion of test interpretation with radiology: I have reviewed the radiologist's reading. Radiologist Impression: XR/XR foot RT min 3V FINDINGS/IMPRESSION: ? Examination demonstrates a soft tissue defect over the posterior aspect of the heel. A small amount of subcutaneous air may track along the plantar fascia as well. ? No definite subjacent lytic lesion or periosteal reaction is appreciated. ? The patient is status post amputation across the proximal aspect of the right fifth proximal phalanx. ? No acute fracture or dislocation is seen. The joint spaces appear maintained. ? Extensive small vessel arterial calcification suggests diabetic and/or renal calcific atherosclerosis. Dictated By: Ramin House Signed By: <Electronically signed by Ramin? Lacy in OV> 01/07/23 1441 I agree with Radiology interpretation after personally reviewing images External Record Review External record reviewed: Inpatient record and Outpatient record Prescription Management I considered prescription management with: Pain Medication and Antibiotic Chronic Conditions Patient?s care impacted by: Diabetes Discharge Plan Discharge Clinical Impression: BEATRIZ (acute kidney injury), Diabetic ulcer of foot with fat layer exposed Patient Disposition: Home, Self-Care Instructions: Acute Kidney Injury (DC), Diabetic Foot Ulcers (ED) Prescriptions: New oxycodone 5 mg tablet 5 mg PO Q8H PRN (Reason: pain) Qty: 7 0RF Rx Instructions: Partial Fill upon patient request. No Action albuterol sulfate 2.5 mg /3 mL (0.083 %) solution for nebulization 1 amp inhalation TID PRN (Reason: Respiratory Distress) atorvastatin 10 mg tablet 10 mg PO DAILY amlodipine 5 mg tablet 5 mg PO DAILY aspirin 81 mg tablet,delayed release (DR/EC) 81 mg PO DAILY tramadol 50 mg tablet 50 mg PO Q6H PRN (Reason: moderate pain) calcitriol 0.5 mcg capsule 0.5 mcg PO DAILY albuterol sulfate [ProAir HFA] 90 mcg/actuation HFA aerosol inhaler 2 puff PO Q4H PRN (Reason: wheezing) tacrolimus 1 mg capsule 2 mg PO BID Patient Comments: PATIENTS DOSE WAS RECENTLY DECREASED TO 2 IN THE AM INSTEAD OF 3 insulin lispro [Humalog KwikPen Insulin] 100 unit/mL insulin pen 5 unit subcut TIDWM duloxetine 20 mg capsule,delayed release(DR/EC) 20 mg PO DAILY cholecalciferol (vitamin D3) 1,250 mcg (50,000 unit) capsule 1 cap PO SA@1000 insulin glargine [Lantus Solostar U-100 Insulin] 100 unit/mL (3 mL) insulin pen 48 unit subcut BEDTIME famotidine 40 mg Tablet 40 mg PO BEDTIME gabapentin 100 mg Capsule 100 mg PO BEDTIME ferrous sulfate [FeroSul] 325 mg (65 mg iron) tablet 325 mg PO QAM fluconazole 100 mg Tablet 100 mg PO DAILY Qty: 6 0RF sodium bicarbonate 650 mg Tablet 650 mg PO TID Qty: 90 0RF acetaminophen 500 mg Tablet 500 mg PO Q8H PRN (Reason: Pain) esomeprazole magnesium 40 mg Capsule,Delayed Release(Dr/Ec) 40 mg PO DAILY@0630 lidocaine 5 % adhesive patch,medicated 1 patch topical DAILY hydroxyzine HCl 10 mg tablet 10 mg PO BID trazodone 50 mg tablet 25 mg PO BEDTIME metoprolol succinate [Toprol XL] 25 mg tablet extended release 24 hr 25 mg PO DAILY Qty: 90 3RF Referrals: Siria Mendieta MD [Physician] - 5 days
[2023-01-07 13:25] LABS: MANUAL DIFF FLAG NO
[2023-01-07 13:28] LABS: Basophils Percent Auto 0.2 % (0-2); Eosinophils Percent Auto 0.1 % (0-4); Hematocrit 41.2 % (42.0-52.0); Hemoglobin 13.2 g/dl (14.0-18.0); Imm Gran Abs Auto 0.23 X10*3/uL (0.00-0.03); Imm Gran Pct Auto 1.5 % (0.0-0.4); Lymphocytes Absolute Auto 0.6 X10*3/uL (1.2-4.9); Lymphocytes Percent Auto 3.9 % (20-40); Mean Corpuscular Hemoglobin 26.9 pg (27.0-33.0); Mean Corpuscular Volume 84.1 fL (80.0-98.0); Mean Platelet Volume 9.8 fL (9.4-12.4); Monocytes Absolute Auto 1.4 X10*3/uL (0.1-1.2); Monocytes Percent Auto 8.7 % (2-11); Neutrophils Absolute Auto 13.5 x10*3/uL (2.0-8.3); Neutrophils Percent Auto 85.6 % (45-73); Platelet Count 376 X10*3/uL (160-400); Red Cell Distribution Width 14.7 % (11.0-16.0); White Blood Count 15.7 X10*3/uL (4.8-10.8)
[2023-01-07 13:59] LABS: Anion Gap 16 (12-20); Blood Urea Nitrogen 40 mg/dL (9-16); Calcium 9.4 mg/dL (8.4-10.2); Carbon Dioxide 11 mmol/L (22-29); Chloride 109 mmol/L (96-108); Creatinine Clr Calc Pharmacy 16.9; Estimated Glomerular Filt Rate 14; Glucose Random 286 mg/dL (60-115); Potassium 4.7 mmol/L (3.3-5.1); Sodium 131 mmol/L (135-145)
[2023-01-07 14:14] VITALS: BP 120/72; PULSE 76; RESP 17; TEMP 37.1; O2SAT 98
[2023-01-07] MEDS: 0.9 % Sodium Chloride 1,000 ML 999 ML IV ×2 (16:59→18:13)
[2023-01-07] MEDS: oxyCODONE HCl Immed Release 5 MG TABLET PO (16:59)
[2023-01-07 17:00] VITALS: BP 149/90; PULSE 67; RESP 16; TEMP 36.7; O2SAT 98
[2023-01-07 18:03] VITALS: BP 143/98; PULSE 71; RESP 17; O2SAT 98
[2023-01-07 18:42] VITALS: BP 119/81; PULSE 71; RESP 16; O2SAT 99
--- NOTE | 2023-01-07 18:43 | PC.NURSE ---
New dsg applied to heel wound. VSS. awaits d/c
== END 2023-01-07 18:48 | disposition home or self-care (01) ==
PROVIDERS: Physician Assistant Medical; Emergency Provider Emergency Medicine
DX: N17.9 Acute kidney failure, unspecified (principal); E11.621 Type 2 diabetes mellitus with foot ulcer; L97.419 Non-pressure chronic ulcer of right heel and midfoot with unspecified severity; Z79.82 Long term (current) use of aspirin; Z79.4 Long term (current) use of insulin; Z79.899 Other long term (current) drug therapy
CPT/HCPCS: 36415; 73630; 80048; 85025; 96360; 99284

== ENCOUNTER 2023-04-04 12:12 | Emergency (ER) | payer MEDICAID, SELFPAY ==
--- NOTE | ~2023-04-04 | US_ITS ---
EXAMINATION: US VENOUS ULTRASOUND WITH DOPPLER LOWER EXTREMITY, LEFT CLINICAL INFORMATION: Left leg swelling and pitting edema. COMPARISON: None available. TECHNIQUE: Ultrasound of the deep veins is performed from the hip to the calf with compression sonography and color and pulse Doppler assessment. Spectral analysis with color-flow imaging is performed. FINDINGS: There is normal venous compression and respiratory variation and augmented flow. The visualized common femoral vein, superficial femoral vein, profunda femoral vein, popliteal vein, and the trifurcation region shows no evidence of deep venous thrombosis. The peroneal vein is not visualized. The posterior tibial vein is patent. There is no significant popliteal fossa cyst. If the patient's symptoms persist, followup ultrasound in 5 days 7 days might be of value to exclude proximal propagation from a non-visualized calf vein. US/US venous duplex LE IMPRESSION: No DVT demonstrated in the left lower extremity.
[2023-04-04 12:32] VITALS: BP 120/77; PULSE 85; RESP 18; TEMP 36.8; O2SAT 100; BMI 31.0
--- NOTE | 2023-04-04 12:44 | ED.GENADULT ---
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 He states he cannot get comfortable, no b/b incontinence, no saddle anesthesia. He denies any or GI symptoms. No fevers. He has no indwelling catheters. He notes it hurts to move his left leg and it is a little swollen. MD complaint: back pain Onset (ago): day(s) (few) Location: back Radiation: non-radiation Severity: moderate Quality: aching Pain Consistency: constant Relieving factors: rest Exacerbating factors: movement Associated symptoms: denies other symptoms Treatments prior to arrival: none Related Data Home Medications Medication Instructions Recorded Confirmed albuterol sulfate 2.5 mg/3 mL 1 amp inhalation TID PRN 08/26/21 12/19/22 (0.083 %) solution for nebulization Respiratory Distress albuterol sulfate 90 mcg/actuation 2 puff PO Q4H PRN wheezing 08/26/21 12/19/22 aerosol inhaler (ProAir HFA) amlodipine 5 mg tablet 5 mg PO DAILY 08/26/21 12/19/22 aspirin 81 mg tablet,delayed 81 mg PO DAILY 08/26/21 12/19/22 release atorvastatin 10 mg tablet 10 mg PO DAILY 08/26/21 12/19/22 calcitriol 0.5 mcg capsule 0.5 mcg PO DAILY 08/26/21 12/19/22 cholecalciferol (vitamin D3) 1,250 1 cap PO SA@1000 08/26/21 12/19/22 mcg (50,000 unit) capsule duloxetine 20 mg capsule,delayed 20 mg PO DAILY 08/26/21 12/19/22 release insulin glargine 100 unit/mL (3 48 unit subcut BEDTIME 08/26/21 12/19/22 mL) subcutaneous pen (Lantus Solostar U-100 Insulin) insulin lispro 100 unit/mL 5 unit subcut TIDWM 08/26/21 12/19/22 subcutaneous pen (Humalog KwikPen (U-100) Insulin) tacrolimus 1 mg capsule, 2 mg PO BID 08/26/21 12/19/22 immediate-release tramadol 50 mg tablet 50 mg PO Q6H PRN moderate pain 08/26/21 12/19/22 famotidine 40 mg tablet 40 mg PO BEDTIME 12/11/21 12/19/22 gabapentin 100 mg capsule 100 mg PO BEDTIME 12/11/21 12/19/22 hydroxyzine HCl 10 mg tablet 10 mg PO BID 09/24/22 12/19/22 trazodone 50 mg tablet 25 mg PO BEDTIME 09/24/22 12/19/22 acetaminophen 500 mg tablet 500 mg PO Q8H PRN Pain 10/20/22 12/19/22 esomeprazole magnesium 40 mg 40 mg PO DAILY@0630 10/20/22 12/19/22 capsule,delayed release lidocaine 5 % topical patch 1 patch topical DAILY 11/02/22 12/19/22 ferrous sulfate 325 mg (65 mg 325 mg PO QAM 12/19/22 12/19/22 iron) tablet (FeroSul) Previous Rx's Medication Instructions Recorded metoprolol succinate 25 mg 25 mg PO DAILY #90 tabs 09/24/22 tablet,extended release 24 hr (Toprol XL) fluconazole 100 mg tablet 100 mg PO DAILY #6 tabs 12/24/22 sodium bicarbonate 650 mg tablet 650 mg PO TID #90 tabs 12/24/22 oxycodone 5 mg tablet 5 mg PO Q8H PRN pain #7 tabs 01/07/23 lidocaine 5 % topical patch 1 patch topical DAILY #30 ea 04/04/23 Allergies Allergy/AdvReac Type Severity Reaction Status Date / Time hydromorphone [From DILAUDID] Allergy Mild ITCHINESS Verified 01/07/23 12:56 diphenhydramine Allergy Unknown UNK Verified 01/07/23 12:56 [From BENADRYL] regadenoson [From Lexiscan] AdvReac Mild Itching Verified 01/07/23 12:56 Review of Systems Review of Systems: Constitutional : No Weight loss, No Fever, No Chills, Cardiovascular : No Chest Pain, No SOB Respiratory : No Cough, No Dyspnea Gastrointestinal : No Nausea, No Vomiting, No Diarrhea, No abdominal Pain, No Hematochezia, No Melena Genitourinary : No Dysuria, No Urinary Frequency, No Hematuria, No Urinary Incontinence, Musculoskeletal : positive back pain Skin : No Skin Lesions, No rash Neuro : No Weakness, No Numbness, No Paresthesias, no loss of bowel or bladder incontinence, no saddle anesthesia All other systems reviewed and are negative PMFSH Past Medical History Attestation statement: The following information was validated with the patient. Source: old records reviewed Medical History Diabetic infection of right foot Amputation of fifth toe of right foot History of osteomyelitis Chronic hyperglycemia Diabetes HTN (hypertension) Surgical History Renal transplant recipient H/O arteriovenostomy for renal dialysis Family History Family History Other Diabetes No family history of coronary artery disease Social History Social History Household Members: None Housing: Apartment Do you presently have visiting nurse or other home services: No Alcohol intake: never Patient Tobacco Use Status: Never used Tobacco Smoked in Last 30 Days: No e-Cigarette/Vaping Use: Never Used Use of substances other than those prescribed or required for medical reasons: No Advance Directives: Yes Advance Directives on File: Yes Advance Directives Date on File: 01/21/22 service: No Current occupational status: disabled Physical Exam ED Vital Signs: Vital Signs - 24 hr 04/04/23 12:32 04/04/23 21:07 Temperature 98.2 F 98.1 F Pulse Rate 85 78 Respiratory Rate 18 18 Blood Pressure 120/77 127/49 L Pulse Oximetry 100 98 Oxygen Delivery Method Room Air Room Air BMI result Body Mass Index 31.0 Appearance: Alert. Oriented X3. No acute distress. Eyes: Pupils equal, round and reactive to light. ENT: Pharynx normal. Neck: Normal inspection. Neck supple. CVS: Normal heart rate and rhythm. Pulses normal. Respiratory: No respiratory distress. Breath sounds normal. Abdomen: Soft and nontender. Back: ttp along L lower lumbar paraspinal no mass or rash seen Skin: Skin warm and dry. Normal skin color. Normal skin turgor. Extremities: trace pitting edema left lower extremity No calf ttp Neuro: Oriented X 3. No motor deficit. No sensory deficit. Course Course Course Narrative: RME: 57 yold male presents to the ED for low back pain radating left leg with chills and night sweats. Secondary complain is left leg swelling. Patient also states glucose was 56 this morning. POC was 129. left leg swollen with pitting edema. labs ordered. Medications Administered Discontinued Medications Generic Name Dose Route Start Last Admin Trade Name Edmundo PRN Reason Stop Dose Admin Oxycodone HCl 5 mg 04/04/23 19:59 04/04/23 20:28 Oxycodone Hcl Immed Release 5 Mg Tablet PO 04/04/23 20:00 5 mg ONCE ONE Administration Medical Decision Making Medical Decision Making [facility] Narrative: 57 yo male with PMH of kidney transplant on immunosuppressants, diabetes, diabetic ulcer, prior R AKA, HLD, here with c/o left leg swelling and pain - DVT study ordered, as well as left low back pain radiating from low back to buttock he has no b/b incontience no saddle anesthesia no fevers, no abdominal ttp he has pain with movements only - he is NV intact, no UTI symptoms. At this time he is not toxic and pain worse with movements - other than labs, UA and DVT study will DC home with topical medications gets monthly tramadol and PO narcotics. Differential Diagnosis Differential Diagnoses: The differential diagnosis associated with the presentation includes DVT, back pain, UTI Admission/Observation Consideration of admission/observation: Escalation of care including admission/observation considered feels better wants to go home, stable for DC, no WBC count afebrile no UTI Lab Data [facility] Lab Attestation statement: I reviewed the patient's lab results. 04/04/23 14:14 04/04/23 14:14 Labs: Lab Results 04/04/23 04/04/23 04/04/23 Range/Units 12:41 14:14 19:43 WBC 9.4 (4.8-10.8) X10*3/uL RBC 4.20 L (4.60-5.80) X10*6/uL Hgb 11.8 L (14.0-18.0) g/dl Hct 36.4 L (42.0-52.0) % MCV 86.7 (80.0-98.0) fL MCH 28.1 (27.0-33.0) pg MCHC 32.4 (31.0-36.0) g/dl RDW 14.8 (11.0-16.0) % Plt Count 263 D (160-400) X10*3/uL MPV 10.0 (9.4-12.4) fL Immature Gran % (Auto) 0.3 (0.0-0.4) % Neut % (Auto) 67.5 (45-73) % Lymph % (Auto) 21.1 (20-40) % [place] % (Auto) 9.0 (2-11) % Eos % (Auto) 1.7 (0-4) % Baso % (Auto) 0.4 (0-2) % Lymph # (Auto) 2.0 (1.2-4.9) X10*3/uL [place] # (Auto) 0.9 (0.1-1.2) X10*3/uL Eos # (Auto) 0.2 (0.0-0.4) X10*3/uL Baso # (Auto) 0.0 (0.0-0.2) X10*3/uL Abs Immat Gran (auto) 0.03 (0.00-0.03) X10*3/uL Absolute Neuts (auto) 6.4 (2.0-8.3) x10*3/uL Absolute Nucleated RBC 0.000 (0.0-0.012) X10*3/uL Nucleated RBC % (auto) 0.0 (0.0-0.2) /100WBC Sodium 137 (135-145) mmol/L Potassium 4.3 (3.3-5.1) mmol/L Chloride 114 H (96-108) mmol/L Carbon Dioxide 15 L (22-29) mmol/L Anion Gap 12 (12-20) BUN 24 H (9-16) mg/dL Creatinine 2.67 H (0.5-1.4) mg/dL Estim Creat Clear Calc 28.4 Estimated GFR 25 POC Glucose 129 H 272 H (60-115) mg/dL Random Glucose 151 H (60-115) mg/dL Calcium 9.1 (8.4-10.2) mg/dL Total Bilirubin 0.4 (0.0-1.0) mg/dL AST 28 (5-37) U/L ALT 31 (0-40) U/L Alkaline Phosphatase 202 H (39-117) U/L B-Natriuretic Peptide 76 (<100) pg/mL Total Protein 6.6 (6.5-8.0) g/dL Albumin 3.4 L (3.5-5.0) g/dL Urine Color Urine Appearance Urine pH (5.0-9.0) Ur Specific [place] (1.005-1.025) Urine Protein (Neg-Trace) mg/dL Urine Glucose (UA) (Negative) mg/dL Urine Ketones (Negative) mg/dL Urine Blood (Negative) Urine Nitrite (Negative) Ur Leukocyte Esterase (Negative) Urine RBC (0-2) /HPF Urine WBC (0-5) /HPF Ur Squamous Epith Cells (0-2) /HPF Urine Bacteria (None Seen) Hyaline Casts (0-2) /LPF COVID-19 (KEYSHAWN) Negative (Negative) COVID-19 Clin Com See Note Influenza Type A (EVELIO) Negative (Negative) Influenza Type B (EVELIO) Negative (Negative) Influenza A & B Note See Note 04/04/23 Range/Units 20:11 WBC (4.8-10.8) X10*3/uL RBC (4.60-5.80) X10*6/uL Hgb (14.0-18.0) g/dl Hct (42.0-52.0) % MCV (80.0-98.0) fL MCH (27.0-33.0) pg MCHC (31.0-36.0) g/dl RDW (11.0-16.0) % Plt Count (160-400) X10*3/uL MPV (9.4-12.4) fL Immature Gran % (Auto) (0.0-0.4) % Neut % (Auto) (45-73) % Lymph % (Auto) (20-40) % [place] % (Auto) (2-11) % Eos % (Auto) (0-4) % Baso % (Auto) (0-2) % Lymph # (Auto) (1.2-4.9) X10*3/uL [place] # (Auto) (0.1-1.2) X10*3/uL Eos # (Auto) (0.0-0.4) X10*3/uL Baso # (Auto) (0.0-0.2) X10*3/uL Abs Immat Gran (auto) (0.00-0.03) X10*3/uL Absolute Neuts (auto) (2.0-8.3) x10*3/uL Absolute Nucleated RBC (0.0-0.012) X10*3/uL Nucleated RBC % (auto) (0.0-0.2) /100WBC Sodium (135-145) mmol/L Potassium (3.3-5.1) mmol/L Chloride (96-108) mmol/L Carbon Dioxide (22-29) mmol/L Anion Gap (12-20) BUN (9-16) mg/dL Creatinine (0.5-1.4) mg/dL Estim Creat Clear Calc Estimated GFR POC Glucose (60-115) mg/dL Random Glucose (60-115) mg/dL Calcium (8.4-10.2) mg/dL Total Bilirubin (0.0-1.0) mg/dL AST (5-37) U/L ALT (0-40) U/L Alkaline Phosphatase (39-117) U/L B-Natriuretic Peptide (<100) pg/mL Total Protein (6.5-8.0) g/dL Albumin (3.5-5.0) g/dL Urine Color Yellow Urine Appearance Clear Urine pH 5.0 (5.0-9.0) Ur Specific [place] 1.015 (1.005-1.025) Urine Protein 30 (1+) H (Neg-Trace) mg/dL Urine Glucose (UA) 250 H (Negative) mg/dL Urine Ketones Negative (Negative) mg/dL Urine Blood Negative (Negative) Urine Nitrite Negative (Negative) Ur Leukocyte Esterase Negative (Negative) Urine RBC 0-2 (0-2) /HPF Urine WBC 0-5 (0-5) /HPF Ur Squamous Epith Cells 0-2 (0-2) /HPF Urine Bacteria None Seen (None Seen) Hyaline Casts 3-5 (0-2) /LPF COVID-19 ([facility]SHAWN) (Negative) COVID-19 Clin Com Influenza Type A (EVELIO) (Negative) Influenza Type B (EVELIO) (Negative) Influenza A & B Note Independent Interpretation I performed an independent interpretation of an: Ultrasound (negative for DVT) Radiology Impression Discussion of test interpretation with radiology: I have reviewed the radiologist's reading. External Record Review External record reviewed: Inpatient record Prescription Management I considered prescription management with: Pain Medication and Other Discharge Plan Discharge Clinical Impression: Sciatica Qualifiers: Laterality: left Qualified Code(s): M54.32 - Sciatica, left side Patient Disposition: Home, Self-Care Instructions: Sciatica (ED), Back Pain (ED) Additional Instructions: return for worsening pain, fevers, loss of control of bowel or bladder or any other concerns. follow up with your doctor this week. wear a compressive stocking. Regrese si el dolor empeora, tiene fiebre, pierde el control de los intestinos o la vejiga o cualquier otra inquietud. Quita un seguimiento con holland m?dico esta semana. use grzegorz media compresiva. Prescriptions: New lidocaine 5 % adhesive patch,medicated 1 patch topical DAILY Qty: 30 0RF Rx Instructions: leave on most painful area for up to 12 hrs No Action albuterol sulfate 2.5 mg /3 mL (0.083 %) solution for nebulization 1 amp inhalation TID PRN (Reason: Respiratory Distress) atorvastatin 10 mg tablet 10 mg PO DAILY amlodipine 5 mg tablet 5 mg PO DAILY aspirin 81 mg tablet,delayed release (DR/EC) 81 mg PO DAILY tramadol 50 mg tablet 50 mg PO Q6H PRN (Reason: moderate pain) calcitriol 0.5 mcg capsule 0.5 mcg PO DAILY albuterol sulfate [ProAir HFA] 90 mcg/actuation HFA aerosol inhaler 2 puff PO Q4H PRN (Reason: wheezing) tacrolimus 1 mg capsule 2 mg PO BID Patient Comments: PATIENTS DOSE WAS RECENTLY DECREASED TO 2 IN THE AM INSTEAD OF 3 insulin lispro [Humalog KwikPen Insulin] 100 unit/mL insulin pen 5 unit subcut TIDWM duloxetine 20 mg capsule,delayed release(DR/EC) 20 mg PO DAILY cholecalciferol (vitamin D3) 1,250 mcg (50,000 unit) capsule 1 cap PO SA@1000 insulin glargine [Lantus Solostar U-100 Insulin] 100 unit/mL (3 mL) insulin pen 48 unit subcut BEDTIME famotidine 40 mg Tablet 40 mg PO BEDTIME gabapentin 100 mg Capsule 100 mg PO BEDTIME ferrous sulfate [FeroSul] 325 mg (65 mg iron) tablet 325 mg PO QAM fluconazole 100 mg Tablet 100 mg PO DAILY Qty: 6 0RF sodium bicarbonate 650 mg Tablet 650 mg PO TID Qty: 90 0RF oxycodone 5 mg tablet 5 mg PO Q8H PRN (Reason: pain) Qty: 7 0RF Rx Instructions: Partial Fill upon patient request. acetaminophen 500 mg Tablet 500 mg PO Q8H PRN (Reason: Pain) esomeprazole magnesium 40 mg Capsule,Delayed Release(Dr/Ec) 40 mg PO DAILY@0630 lidocaine 5 % adhesive patch,medicated 1 patch topical DAILY hydroxyzine HCl 10 mg tablet 10 mg PO BID trazodone 50 mg tablet 25 mg PO BEDTIME metoprolol succinate [Toprol XL] 25 mg tablet extended release 24 hr 25 mg PO DAILY Qty: 90 3RF Interventions: ED Discharge Assessment Last Done: 04/04/23 21:12 Discharge Date/Time: 04/04/23 21:13 Print Language: French
[2023-04-04 12:46] LABS: Glucose, Whole Blood 129 mg/dL (60-115)
[2023-04-04 14:18] LABS: MANUAL DIFF FLAG NO
[2023-04-04 14:19] LABS: Basophils Percent Auto 0.4 % (0-2); Eosinophils Absolute Auto 0.2 X10*3/uL (0.0-0.4); Eosinophils Percent Auto 1.7 % (0-4); Hematocrit 36.4 % (42.0-52.0); Hemoglobin 11.8 g/dl (14.0-18.0); Imm Gran Abs Auto 0.03 X10*3/uL (0.00-0.03); Imm Gran Pct Auto 0.3 % (0.0-0.4); Lymphocytes Percent Auto 21.1 % (20-40); Mean Corpuscular HGB Conc 32.4 g/dl (31.0-36.0); Mean Corpuscular Hemoglobin 28.1 pg (27.0-33.0); Mean Corpuscular Volume 86.7 fL (80.0-98.0); Monocytes Absolute Auto 0.9 X10*3/uL (0.1-1.2); Neutrophils Absolute Auto 6.4 x10*3/uL (2.0-8.3); Neutrophils Percent Auto 67.5 % (45-73); Platelet Count 263 X10*3/uL (160-400); Red Cell Distribution Width 14.8 % (11.0-16.0); White Blood Count 9.4 X10*3/uL (4.8-10.8)
[2023-04-04 14:34] LABS: Alanine Aminotransferase 31 U/L (0-40); Albumin Level 3.4 g/dL (3.5-5.0); Alkaline Phosphatase 202 U/L (39-117); Anion Gap 12 (12-20); Aspartate Amino Transferase 28 U/L (5-37); Bilirubin Total 0.4 mg/dL (0.0-1.0); Blood Urea Nitrogen 24 mg/dL (9-16); Calcium 9.1 mg/dL (8.4-10.2); Carbon Dioxide 15 mmol/L (22-29); Chloride 114 mmol/L (96-108); Creatinine Clr Calc Pharmacy 28.4; Estimated Glomerular Filt Rate 25; Glucose Random 151 mg/dL (60-115); Potassium 4.3 mmol/L (3.3-5.1); Sodium 137 mmol/L (135-145); Total Protein 6.6 g/dL (6.5-8.0)
[2023-04-04 14:40] LABS: B Type Natriuretic Peptide 76 pg/mL (<100); COVID-19 Test Negative (Negative); IDNOW Serial# 08D9AD1C
[2023-04-04 14:42] LABS: IDNOW Serial# BCCEAD1C; Influenza A Negative (Negative); Influenza B2 Negative (Negative)
--- OUTSIDE RECORDS SUMMARY | 2023-04-04 19:46 | XMS_ITS | Continuity of Care Document ---
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 Name Role Phone Valerio SEVERINO, Zoraida Primary Care Physician Encounter [facility] Date(s): 02/03/23 - 02/11/[address] [id number] Encounter Diagnosis Surgical site infection(Final) - 02/03/23 Discharge Disposition: Disch/Trans to IP Rehab or unit w/in Hos Attending Physician: Jennifer SEVERINO, Arcenio Admitting Physician: Nuris SEVERINO, Alejandro Referring Physician: Not on Staff, Referring MD Allergies, Adverse Reactions, Alerts Substance Reaction Severity Status morphine Active Medications amLODIPine 5 mg oral tablet 1 tablet = 5 mg, By Mouth, Daily, TAKE ONE TABLET EVERY MORNING Start Date: 01/11/23 Status: Ordered aspirin 81 mg oral delayed release tablet 81 mg, By Mouth, Daily, Refills 0, Maintenance, 02/11/23 9:11:00 EDT, Partial fill upon patient request if the prescription is for a schedule II opioid drug. Start Date: 02/11/23 Status: Ordered atorvastatin 10 mg oral tablet 1 tablet = 10 mg, By Mouth, Daily, TAKE ONE TABLET EVERY MORNING Start Date: 01/11/23 Status: Ordered calcitriol 0.5 mcg oral capsule 1 capsule = 0.5 mcg, By Mouth, Daily, TAKE ONE CAPSULE EVERY MORNING Start Date: 01/11/23 Status: Ordered ferrous sulfate 325 mg oral enteric coated tablet 325 mg, By Mouth, Daily, Refills 0, Maintenance, 02/11/23 9:11:00 EDT, Partial fill upon patient request if the prescription is for a schedule II opioid drug. Start Date: 02/11/23 Status: Ordered gabapentin 100 mg oral capsule 100 mg, 1, capsule, By Mouth, Daily at bedtime, TAKE ONE CAPSULE BY MOUTH AT BEDTIME Start Date: 01/11/23 Status: Ordered hydrOXYzine hydrochloride 10 mg oral tablet 1 tablet = 10 mg, By Mouth, 2 times a day, TAKE ONE TABLET BY MOUTH IN THE MORNING AND EVENING Start Date: 01/11/23 Status: Ordered Insulin Glargine Inj 0.05 mL = 5 units, Subcutaneous Injection, Daily at bedtime, 0 Refills, Maintenance, 02/11/23 9:12:00 EDT, Injection, Partial fill upon patient request if the prescription is for a schedule II opioiddrug. Start Date: 02/11/23 Status: Ordered insulin lispro 100 units/mL injectable solution = 6 units, Subcutaneous Injection, 3 times a day before meals, # 15 mL, 0 Refills, Maintenance, 01/11/23 4:40:00 EDT, Solution, Partial fill upon patient request if the prescription is for a scheduleII opioid drug. Start Date: 01/11/23 Status: Ordered lidocaine 5% topical film 1 patch, Topically, Daily, PRN Pain , Mild, remove after 12 hours, # 13 each, 0 Refills, Maintenance, 01/11/23 4:32:00 EDT, Film, Partial fill upon patient request if the prescription is for a schedule II opioid drug. Start Date: 01/11/23 Status: Ordered loperamide 2 mg oral capsule 2 mg, By Mouth, Every 3 hours, PRN, Refills 0, Maintenance, Loose Stool, 02/11/23 9:11:00 EDT, Partial fill upon patient request if the prescription is for a schedule II opioid drug. Start Date: 02/11/23 Status: Ordered Metoprolol Succinate ER 25 mg oral tablet, extended release 1 tablet = 25 mg, By Mouth, Daily, TAKE ONE TABLET EVERY MORNING Start Date: 01/11/23 Status: Ordered pantoprazole 20 mg oral delayed release tablet = 20 mg, By Mouth, Daily, 0 Refills, Maintenance, 02/11/23 9:11:00 EDT, EC Tablet Start Date: 02/11/23 Status: Ordered predniSONE 10 mg oral tablet 1 tablet = 10 mg, By Mouth, Daily, # 10 tablet, 0 Refills, Maintenance, 02/11/23 9:22:00 EDT, Tablet, Partial fill upon patient request if the prescription is for a schedule II opioid drug. Start Date: 02/11/23 Status: Ordered sodium bicarbonate 650 mg oral tablet 1 tablet = 650 mg, By Mouth, 3 times a day, TAKE ONE TABLET BY MOUTH THREE TIMES DAILY Start Date: 01/11/23 Status: Ordered tacrolimus 1 mg oral capsule 2 capsule = 2 mg, By Mouth, Every 12 hours Start Date: 01/11/23 Status: Ordered traMADol 50 mg oral tablet 1 tablet = 50 mg, By Mouth, Every 6 hours, PRN Pain , Moderate, for 1 days, TAKE ONE TABLET EVERY 6HOURS NEEDED FOR PAIN, # 5 tablet, 0 Refills, Acute 02/12/23 9:13:00 EDT, 02/11/23 9:13:00 EDT, Tablet, Partial fill upon patient request if the pre... Start Date: 02/11/23 Stop Date: 02/12/23 Status: Ordered traZODone 50 mg oral tablet 25 mg, 0.5, tablet, By Mouth, Daily at bedtime, TAKE 1/2 TABLET AT BEDTIME Start Date: 01/11/23 Status: Ordered Procedures Procedure Date Related Diagnosis Body Site Status Colonoscopy and extirpation of lesion of colon 02/05/23 Completed Esophagogastroduodenoscopy and biopsy 02/05/23 Completed Results Orders for Microbiology Reports Name Date Blood Culture #2 02/05/23 Blood Culture #2 (BLOOD CULTURE 2) Blood Culture 02/03/23 Microbiology Reports TEST:Blood Culture, Second Order STATUS:Auth (Verified) BODY SITE: SOURCE:Blood COLLECTED DATE/TIME:02/05/23 5:43 AM Blood Culture, Second Order SPECIMEN DESCRIPTION : BLOOD RIGHTARM SPECIAL REQUESTS : NONE CULTURE : NO GROWTH 5 DAYS. REPORT STATUS : FINAL 02/10/2023 TEST:Blood Culture STATUS:Auth (Verified) BODY SITE: SOURCE:Blood COLLECTED DATE/TIME:02/03/23 12:09 PM Blood Culture SPECIMEN DESCRIPTION : BLOOD NO SITE SPECIAL REQUESTS : NONE CULTURE : NO GROWTH 5 DAYS. REPORT STATUS : FINAL 02/08/2023 TEST:Blood Culture, Second Order STATUS:Auth (Verified) BODY SITE: SOURCE:Blood COLLECTED DATE/TIME:02/03/23 12:09 PM Blood Culture, Second Order SPECIMEN DESCRIPTION : BLOOD NO SITE SPECIAL REQUESTS : CRITICAL VALUE CALLED AND VERIFIED BY READBACK FOR: GRAM POSITIVE COCCI TO [id number] AT 1259 02/04/23 AT [id number] BY 157. CULTURE : STAPHYLOCOCCUS HAEMOLYTICUS This isolate was identified using Maldi-TOF system SUSCEPTIBILITY TESTING NOT ROUTINELY PERFORMED ON THIS ISOLATE. Single isolates of Staph. species, not Staph. aureus, Micrococci, Bacil marcus species, Diphtheroids, Cutibacterium acnes (formerly Propionibacterium acnes) and Viridans Group Streptococci could be skin contaminants. Multiple isolates of these organisms are more likely to be significant. Staphylococcus species (not S.aureus) was identified by multiplex PCR. REPORT STATUS : FINAL 02/05/2023 Radiology Reports * Exam Date Time Procedure Performing Provider Status 02/05/23 9:46 AM US RUQ Tracy Gonzales; Auth ( Verified) Notes: (US RUQ) Reason For Exam: Cirrhosis;Cirrhosis RESULT: US RUQ US RUQ Refer to EMR; Reason: Cirrhosis; Clinical Question(s): Cirrhosis; Cholangitis Choledocholithiasis per GI note; Special Instructions: US RUQ per GI; Order Comment: 02 04 2023 15:32:55 EDT Attempted to call for pt. in ED, per RN he is being admitted and waiting for transport. Will need to be done as inpatient. GI does want a RUQ, elevated alk. phos. in chart. 02 04 2023 18:24:24 EDT- attempted t COMPARISON: None. FINDINGS: Liver: Normal in size and echotexture. No focal lesion. Mildly nodular hepatic contour. Main portalvein patent with normal hepatopetal direction of flow. Gallbladder: Status post cholecystectomy. Biliary Tree: No intrahepatic or extrahepatic bile duct dilation is identified. Common duct measures: 1.0 cm. Pancreas: Partially obscured by overlying bowel gas. No abnormality in the visualized portions of the pancreas. Right kidney: 8.2 cm in length. Diffusely echogenic parenchyma. No hydronephrosis. There is a cystic structure in the midpole of the right kidney measuring 1.3 x 1 x 1.4 cm with internal low-level echoes. There is possible internal flow but only evident on microvascular flow imaging. There is a simple cyst on the lower pole measuring 1.5 x 1 x 1.9 cm. Multiple echogenic branching shadowing structures which may represent vascular calcifications or nonobstructing calculi. IMPRESSION: 1. No sonographically apparent choledocholithiasis status post cholecystectomy. 2. Mildly nodular contour of the liver, nonspecific. 3. Mildly complex cystic structure in the midpole of the right kidney measuring up to 1.4 cm with internal low-level echoes and questionable mild vascular flow. Neoplasm not entirely excluded. For further characterization consider contrast enhanced MRI abdomen. 4. Echogenic right kidney consistent with medical renal disease. 5. Multiple echogenic branching shadowing structures which may represent vascular calcifications ornonobstructing calculi. I have personally reviewed the images and I agree with this report. WSN: [id number] Ordering Physician: Katarzyna Watkins Dictated By: Romain Mccracken MD Dictated Date/Time: 02/05/23 10:32 a Reviewed By: Odin Montalvo MD Signed By: Odin Montalvo MD Signed Date/Time: 02/05/23 10:37 am Transcribed By: MADYSON Transcribed Date/Time: 02/05/23 10:09 am * Exam Date Time Procedure Performing Provider Status 02/04/23 1:[address] Head/Brain W/O Contrast Zoraida Guillermo; Lilli (Verified) Notes: (CT Head/Brain W/O Contrast) Reason For Exam: trauma / fall;Other: RESULT: CT Head/Brain W/O Contrast CT Head/Brain W/O Contrast INDICATION: trauma fall; Clinical Question(s): hemorrhage. TECHNIQUE: Noncontrast head CT using axial technique and reconstructed in axial and coronal planes.Iterative reconstruction techniques are used to optimize dose and image quality. CTDIvol Head: 48.30 mGy, DLP Head: 773 mGy*cm. COMPARISON: None. FINDINGS: Patient Appointment Coordinator view findings, lines and tubes: None. BRAIN AND EXTRA-AXIAL SPACES: No parenchymal hemorrhage, midline shift, or mass effect. Corley-white matter differentiation is wellpreserved. No acute infarct. Negative insular ribbon sign. Atherosclerotic vascular calcification of the carotid arteries but negative hyperdense vessel sign. Ventricles, sulci, and basilar cisterns are normal. No white matter lesions. No subarachnoid hemorrhage. No subdural or epidural collection. CALVARIUM, SKULL BASE, AND SOFT TISSUES: No fractures or suspicious bony lesions. Polyp/mucous retention cyst in the right sphenoid sinus. Visualized orbits and globes are intact. The extracranial soft tissues are unremarkable. IMPRESSION: No acute intracranial pathology. I have personally reviewed the images and I agree with this report. WSN: [id number] Ordering Physician: Arcenio Bolivar Dictated By: Ramon Smith MD Dictated Date/Time: 02/04/23 7:34 am Reviewed By: Debbie Hensley MD Signed By: Debbie Hensley MD Signed Date/Time: 02/04/23 7:39 am Transcribed By: MADYSON Transcribed Date/Time: 02/04/23 2:09 am * Exam Date Time Procedure Performing Provider Status 02/03/23 4:[address] Ext Lower W/ Contrast Right Colon , Lilliana; Auth (Verified) Notes: (CT Ext Lower W/ Contrast Right) Reason For Exam: Infection RESULT: CT Ext Lower W/ Contrast Right CT Ext Lower W/ Contrast Right Reason: Infection; Clinical Question(s): Knee; scan thigh to end of leg (below knee amputation). Status post right below-knee amputation on 01/25/2023, possible fever, immobility and whitish discharge from the amputation stump. TECHNIQUE: Helical CT of the right lower extremity extending from the mid thigh through the below-knee amputation stump was performed with contrast formatted in 3 planes. 100 cc of Omnipaque 300 was administered intravenously. Weight-based protocol using automatic tube modulation was used to optimize exposure parameters. CTDIvol Body: 31.05 mGy, DLP Body: 1134 mGy*cm. COMPARISONS: None FINDINGS: Bones and joints: Status post right below-knee amputation. The resection margins appear well-defined with no evidence of osseous destruction or periosteal reaction. The joint spaces are maintained. Soft Tissues: Postsurgical change compatible with the recent below-knee amputation. There are a fewfoci of subcutaneous gas distally along the lateral aspect of the amputation stump as well as a fewfoci more proximally along the medial aspect, the level of the proximal tibial metaphysis. No rim-enhancing fluid collection. No evidence of a knee joint effusion. There is severe atherosclerotic vascular calcifications. IMPRESSION: Status post below-knee amputation with no CT evidence of osteomyelitis. No evidence of rim-enhancing fluid collection. WSN: [id number] Ordering Physician: Carlie Smith Dictated By: Shira Pulliam MD Dictated Date/Time: 02/03/23 4:37 pm Reviewed By: Shira Pulliam MD Signed By: Shira Pulliam MD Signed Date/Time: 02/03/23 4:37 pm Transcribed By: MADYSON Transcribed Date/Time: 02/03/23 4:30 pm Vital Signs Most recent to oldest [Reference Range]: 1 2 3 Height 160 cm (02/11/23 10:54 AM) 160 cm (02/11/23 8:16 AM) 160 cm (02/06/23 6:00 PM) Weight 70.9 kg (02/05/23 10:53 AM) 70.9 kg (02/04/23 4:58 PM) Oxygen Saturation [94-100 %] 100 % (02/11/23 10:54 AM) 99 % (02/11/23 8:16 AM) 100 % (02/11/23 1:00 AM) Pulse Rate [55-90 bpm] 86 bpm (02/11/23 10:54 AM) 82 bpm (02/11/23 8:16 AM) 87 bpm (02/10/23 10:00 AM) Body Mass Index [18.5-24.99 kg/m2] 27.7 kg/m2 *H* (02/05/23 10:53 AM) 27.7 kg/m2 *H* (02/04/23 4:58 PM) Blood Pressure [90-138/55-84 mm Hg] 132/67mm Hg (02/11/23 10:54 AM) 130/69mm Hg (02/11/23 8:16 AM) 136/67mm Hg (02/11/23 1:00 AM) Respiratory Rate [16-30 br/min] 18 br/min (02/11/23 10:54 AM) 16 br/min (02/11/23 8:16 AM) 17 br/min (02/11/23 1:00 AM) Temperature [96.8-100.4 DegF] 98 DegF (02/11/23 10:54 AM) 98.0 DegF (02/11/23 8:16 AM) 98.5 DegF (02/11/23 1:00 AM) Mode of Delivery (Oxygen) Room air (02/11/23 10:54 AM) Room air (02/11/23 8:16 AM) Room air (02/11/23 1:00 AM) Blood pressure sites Arm, right (02/11/23 8:16 AM) Leg, left (02/11/23 1:00 AM) Leg, left (02/11/23 12:00 AM) Temperature Route Oral (02/11/23 10:54 AM) Axillary (02/11/23 8:16 AM) Oral (02/11/23 1:00 AM) Dry Weight 70.9 kg (02/04/23 4:58 PM) Weight Obtained Via Bed scale (02/04/23 4:58 PM) Dry Weight Obtained Via Bed scale (02/04/23 4:58 PM) Social History Social History Type Response Smoking Status Never (less than 100 in lifetime) entered on: 01/10/23 Sex History and physical note * Katt SEVERINO, Arcenio Walsh: PERFORM, MODIFY, MODIFY Event Display: History and Physical Hospital Authored Date: [id number] Patient: ??TITO RICHARDSON ? Age:??57 Years?Sex:??Male?:??1965?? Chief Complaint/Reason for Consultation arrives from home, lives by self, by EMS with c/o right leg pain. Pt had right BKA [place], recently discharged home but unable to fill prescriptions or get around/care for himself at home History of Present Illness 02/03 ?? 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 ??Patient came to ER with multiple complaints including fall, inability to take care of self, nausea, diarrhea. ?? Patient speaks [place], history taken with help from medical interpreter. ?? Patient was recently admitted to this hospital on 01/11 for right diabetic foot wound in the right heel, osteomyelitis, s/p right BKA, received antibiotics. ??Rehab was recommended but patient declined and went home. ??He was discharged on 02/01. ?? Today patient came back to ER as he is unable to take care of himself. ??He is unable to ambulate due to BKA and apparently the prosthesis falls of, has had several falls leading to trauma to the right BKA stump, apparently it opened up and pus and blood was coming out. ??He complains of pain in the right BKA stump. ??As he is unable to ambulate he is not taking his medications, and apparently not eating or drinking well as well. ??He has nausea but did not vomit. ??However he continues to havemultiple episodes of watery diarrhea. ??Has abdominal cramps. ??No fever. ??He also complains of blurred vision in the right eye since he fell down and hit the right side of his head, and apparently what ever he sees through the right eye appears red. ??Still complains of some headache on the rightside. ??Patient is willing to go for rehab and hence came to ER for further evaluation. ?? In ER patient has remained hemodynamically stable. ??His labs shows baseline anemia, WBC 10.9, platelets 593. ??Sodium 131, creatinine 2.3 which seems baseline, hypocalcemia, hypoalbuminemia, elevated alkaline phosphatase, normal AST/ALT, normal bilirubin, normal lactate. ??COVID was negative. ??CTscan of the right lower extremity showed s/p below-knee amputation with no CT evidence of osteomyelitis. ??No evidence of rim-enhancing fluid collection. ?? Patient was given ampicillin, vancomycin. ??Patient also received prednisone. ??Patient admitted for further management. ?? Patient was seen by [facility].??recommended??CT scan??that was done as above,??recommended admission to medicine??and broad-spectrum antibiotics, nonweightbearing??right lower extremity,??range of movement??of the BKA stump encouraged.?? Patient was also seen by??nephrology. ? Review of Systems All systems reviewed and negative except as in HPI. Objective ? Vital Signs?? Temperature: 98.2 DegF (02/04/23 06:04:00) Temperature Route: Oral (02/04/23 06:04:00) Pulse Rate: 84 bpm (02/04/23 06:04:00) Respiratory Rate: 17 br/min (02/04/23 06:04:00) Systolic Blood Pressure:??145 mm Hg??High (02/04/23 06:04:00) Diastolic Blood Pressure:??89 mm Hg??High (02/04/23 06:04:00) Blood pressure sites: Arm, right (02/04/23 06:04:00) Mean Arterial Pressure: 108 mm Hg (02/04/23 06:04:00) Pulse Pressure: 56 mm Hg (02/04/23 06:04:00) Oxygen Saturation: 99 % (02/04/23 06:04:00) Mode of Delivery (Oxygen): Room air (02/04/23 06:04:00) Early Warning Score: 1 (02/04/23 07:07:16) ? Physical Exam Constitutional: ??Alert,??no acute distress, co-operative, lying on the bed, saturating well on room air. ?? Mental state: Oriented x 3. Head: ??Normocephalic, atraumatic. ?? Eye:?No discharge. ENT: No discharge. Neck: ??Supple,??no JVD. Cardiovascular: ??S1, S2. Regular rhythm. No MRG. Respiratory: ??Lungs are clear to auscultation b/l, No RRR. ?? Gastrointestinal: ??Soft, Nontender, Non distended, ??Normal bowel sounds.?? Genitourinary: No costovertebral angle tenderness. Neurological: ??Cranial nerves intact. Motor and sensory intact. Back: ??Nontender. Musculoskeletal: ??Normal ROM.??s/p Rigth BKA, stump slightly erythematous, no pus/blood comingn out, mild tenderness. No edema Hematology: No lymphadenopathy Skin: ??Warm, dry. Psychiatric: ??Cooperative.?? Assessment/Plan Diagnoses Alkaline phosphatase elevation ??(R74.8) Blurred vision ??(H53.8) Diarrhea ??(R19.7) FTT (failure to thrive) in adult ??(R62.7) Fall at home ??(W19.XXXA) Surgical site infection ??(T81.49XA) Wound infection after surgery ??(T81.49XA) ?? Assessment:? 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 Patient came to ER with multiple complaints including fall, inability to take care of self, nausea, diarrhea. ?? Fall at home (W19.XXXA):??. FTT (failure to thrive) in adult (R62.7):??. Wound infection after surgery (T81.49XA):??. Fall seems to be mechanical.?? No further work-up needed. Patient unable to??take care of self,??cannot drink/eat.?? Failure to thrive.?? Will consult PT??for possible rehab. Right BKA stump seems??infected,??surrounding cellulitis around the??incision site, tender.?? Continue with??Zosyn and vancomycin??(previously 01/12 patient had??tissue biopsy culture growing??E. colithat is intermediate to Unasyn),??follow-up blood culture. Vascular surgery following. Continue IV fluid. Please consult??wound care. Nonweightbearing right lower limb. ?? Diarrhea (R19.7):??. Patient continues to have diarrhea since last admission,??watery??as reported by??staff. I would like to send a C. difficile but it was already negative on 01/29, hence unable to order at this time. Please touch bases with ID to see if we can??screen him for??C. difficile. ?? Blurred vision (H53.8):??. Patient complains of blurred vision,??ER??had??ultrasound done,??by US fellow, consistent with vitreous hemorrhage. Will need??ophthalmology evaluation. We will get a CT scan of the head to rule out any further bleeding. ?? Alkaline phosphatase elevation (R74.8):??. Elevated alkaline phosphatase noted.?? Other liver enzymes normal. ??Bilirubin normal. We will check gamma GT. ?? Chronic conditions/Home medication: DM:??patient is on Lantus,??he states that he takes 48 units.?? During last hospitalization he??wasgetting much less??need to discharge. ??I will start him on 20 units for now, monitor??glucose,??sliding scale. ESRD s/p DDKT??and CKD of allograft:6??nephrology following. ??Creatinine at baseline.?? He is on??tacrolimus monotherapy, as per previous notes he is not on prednisone anymore.?? We will continue??tacrolimus,??check tacrolimus level daily, avoid nephrotoxins.?? IV fluid hydration as per nephrology.?? Continue??cervical. S/p parathyroidectomy: Continue calcitriol. Neuropathy: Continue??gabapentin. Anxiety/depression:??Continue??hydroxyzine, trazodone. HTN: Continue amlodipine.?? Continue metoprolol. HLD: Continue statin. From??previous notes during last admission it seems that patient also has??peripheral artery disease, hence??aspirin??was started.?? We are getting a CT scan of the head, resume aspirin if CT scan ofthe head is negative for any bleeding. ? VTE Prophylaxis:??heparin s/c ?VTE Prophylaxis Assessment:??VTE Prophylaxis Ordered ?? Code Status:??full code ?Order Code Status:??Code Status Ordered ?? Discharge Planning:? Histories Allergies Allergies ?(Active and Proposed Allergies Only) morphine? (Severity: Unknown severity, Onset: Unknown) ? Past Medical History/Problem List Active Problems??(1) Obese class I ? Past Surgical History Debridement of hindfoot, right: 01/17/23 ? Social History Alcohol Details:??Frequency: 1-2 times per year. Tobacco Details:??Use: Never (less than 100 in lifetime). ? Family History No family history recorded. ? Medications Home Medications Amlodipine (amLODIPine 5 mg oral tablet)?1?tab(s)?5?Milligram?By Mouth?Daily?TAKE ONE TABLET EVERY MORNING Atorvastatin (atorvastatin 10 mg oral tablet)?1?tab(s)?10?Milligram?By Mouth?Daily?TAKE ONE TABLET EVERY MORNING Calcitriol (calcitriol 0.5 mcg oral capsule)?1?capsule?0.5?Microgram?By Mouth?Daily?TAKE ONE CAPSULE EVERY MORNING Gabapentin (gabapentin 100 mg oral capsule)?100?Milligram?1?capsule?By Mouth?Daily at bedtime?TAKE ONE CAPSULE BY MOUTH AT BEDTIME HydrOXYzine (hydrOXYzine hydrochloride 10 mg oral tablet)?1?tab(s)?10?Milligram?By Mouth?2 times a day?TAKE ONE TABLET BY MOUTH IN THE MORNING AND EVENING Insulin Glargine (Lantus Solostar Pen 100 units/mL subcutaneous solution)?INJECT 48 UNITS SUBCUTANEOUSLY EVERY EVENING Insulin Lispro (insulin lispro 100 units/mL injectable solution)?6?unit(s)?Subcutaneous Injection?3 times a day before meals Lidocaine Topical (lidocaine 5% topical film)?1?patch(es)?Topically?Daily?as needed?Pain , Mild?remove after 12 hours Metoprolol (Metoprolol Succinate ER 25 mg oral tablet, extended release)?1?tab(s)?25?Milligram?By Mouth?Daily?TAKE ONE TABLET EVERY MORNING PredniSONE (predniSONE 10 mg oral tablet)?1?tab(s)?10?Milligram?By Mouth?Daily?TAKE ONE TABLET BY MOUTH EVERY MORNING sodium bicarbonate (sodium bicarbonate 650 mg oral tablet)?1?tab(s)?650?Milligram?ByMouth?3 times a day?TAKE ONE TABLET BY MOUTH THREE TIMES DAILY Tacrolimus (tacrolimus 1 mg oral capsule)?2?capsule?2?Milligram?By Mouth?Every 12hours Tramadol (traMADol 50 mg oral tablet)?1?tab(s)?50?Milligram?By Mouth?Every 6 hours?as needed?Pain , Moderate?TAKE ONE TABLET EVERY 6 HOURS NEEDED FOR PAIN Trazodone (traZODone 50 mg oral tablet)?25?Milligram?0.5?tablet?By Mouth?Daily at bedtime?TAKE 1/2 TABLET AT BEDTIME ? Inpatient Medications Medications (23) Active SCHEDULED: (16) Amlodipine 5 mg Tablet (amLODIPine 5 mg oral tablet) ??5 mg, By Mouth, Daily Atorvastatin 40 mg Tablet (atorvastatin 10 mg oral tablet) ??40 mg, By Mouth, Daily Calcitriol 0.25 mcg Capsule (calcitriol 0.25 mcg oral capsule) ??0.5 mcg, By Mouth, Daily Gabapentin 100 mg Capsule (gabapentin 100 mg oral capsule) ??100 mg, By Mouth, Daily at bedtime Heparin 5000 units/mL Inj (1 mL) (Heparin Inj) ??5,000 units 1 mL, Subcutaneous Injection, 3 times a day HydrOXYzine HCL 10mg Tablet (hydrOXYzine hydrochloride 10 mg oral tablet) ??10 mg, By Mouth, 2 times a day Insulin Glargine 100 units/mL Inj (Insulin Glargine Inj) ??20 units 0.2 mL, Subcutaneous Injection,Daily at bedtime Insulin Lispro 100 units/mL Inj (3mL) (Insulin LISPRO Sliding Scale) ??2-10 units, Subcutaneous Injection, 3 times a day before meals Metoprolol 25 mg XL Tablet (Metoprolol Succinate ER 25 mg oral tablet, extended release) ??25 mg, By Mouth, Daily NaCl 0.9% Flush 3ml (NaCL 0.9% Flush) ??3 mL, IV Push, Every 8 hours Piperacillin/Tazobactam 3.375 Gm Inj (Zosyn Extended IVPB) ??3.375 Gm, IVPB, Every 8 hours Sodium Bicarbonate 650 mg Tablet (sodium bicarbonate 650 mg oral tablet) ??650 mg, By Mouth, 2 times a day Tacrolimus 1 mg Capsule (tacrolimus 1 mg oral capsule) ??2 mg, By Mouth, Daily at bedtime Tacrolimus 1 mg Capsule (tacrolimus 1 mg oral capsule) ??2 mg, By Mouth, Daily before breakfast Trazodone 50 mg Tablet (traZODone 50 mg oral tablet) ??25 mg, By Mouth, Daily at bedtime Vancomycin 1250 mg Inj (Vancomycin IVPB) ??1,250 mg, IVPB, Every 36 hours CONTINUOUS: (1) Lactated Ringers (1000 mL) Cont IV 1,000 mL (LR 1,000 mL) ??1,000 mL, IV Infusion, 100 mL/hr PRN: (6) Acetaminophen 325 mg Tablet (Tylenol 325 mg oral tablet) ??975 mg, By Mouth, Every 6 hours Acetaminophen 325 mg Tablet (Acetaminophen Tablet) ??650 mg, By Mouth, Every 4 hours Melatonin 3 mg Tablet (Melatonin Tablet) ??3 mg, By Mouth, Daily at bedtime NaCl 0.9% Flush 3ml (NaCL 0.9% Flush) ??3 mL, IV Push, Every 8 hours Senna 8.6 mg / Docusate 50 mg tablet (Docusate/Senna Tablet) ??1 tablet, By Mouth, 2 times a day TraMADOL 50 mg Tablet (traMADol 50 mg oral tablet) ??50 mg, By Mouth, Every 6 hours ? Results Recent Labs BLOOD COUNT & DIFF WBC 9.0 k/mm3 ()?? 02/04/2023 06:00 RBC 2.80 m/mm3 (Low)?? 02/04/2023 06:00 Hgb 7.6 Gm/dL (Low)?? 02/04/2023 06:00 Hct 24.0 % (Low)?? 02/04/2023 06:00 MCV 85.7 femtoliters ()?? 02/04/2023 06:00 MCH 27.1 pg ()?? 02/04/2023 06:00 MCHC 31.7 g/dL (Low)?? 02/04/2023 06:00 Platelet Count 547 k/mm3 (High)?? 02/04/2023 06:00 RDW-SD 46.5 femtoliters ()?? 02/04/2023 06:00 MPV 9.0 femtoliters (Low)?? 02/04/2023 06:00 Nucleated RBC (Automated) 0.0 #/100 WBC'S ()?? 02/04/2023 06:00 Abs. NRBC 0.0 k/mm3 ()?? 02/04/2023 06:00 Abs. Neut 6.3 k/mm3 ()?? 02/04/2023 06:00 Abs. Lymph 1.4 k/mm3 ()?? 02/04/2023 06:00 Abs. Rhea 1.2 k/mm3 ()?? 02/04/2023 06:00 Abs. Eo 0.1 k/mm3 ()?? 02/04/2023 06:00 Abs. Baso 0.1 k/mm3 ()?? 02/04/2023 06:00 Neut % 69.9 % ()?? 02/04/2023 06:00 Lymph % 15.4 % ()?? 02/04/2023 06:00 Rhea % 12.7 % (High)?? 02/04/2023 06:00 Eos % 1.0 % ()?? 02/04/2023 06:00 Baso % 0.6 % ()?? 02/04/2023 06:00 Imm Gran 0.4 % ()?? 02/04/2023 06:00 Abs. Imm Gran 0.0 k/mm3 ()?? 02/04/2023 06:00 ?? CHEM GENERAL Sodium 134 mmol/L ()?? 02/04/2023 06:00 Potassium 3.9 mmol/L ()?? 02/04/2023 06:00 Chloride 97 mmol/L (Low)?? 02/04/2023 06:00 Bicarbonate Level 27 mmol/L ()?? 02/04/2023 06:00 Anion Gap 10 ()?? 02/04/2023 06:00 Glucose Level 152 mg/dL (High)?? 02/04/2023 06:00 Glucose, POC 215 mg/dL (High)?? 02/03/2023 23:25 BUN 12 mg/dL ()?? 02/04/2023 06:00 Creatinine-Blood 2.0 mg/dL (High)?? 02/04/2023 06:00 Estimated GFR Creatinine 38 ML/MIN/1.73 M2 ()?? 02/04/2023 06:00 Calcium 7.8 mg/dL (Low)?? 02/03/2023 11:51 Protein, Total 6.0 Gm/dL (Low)?? 02/03/2023 11:51 Albumin 2.3 Gm/dL (Low)?? 02/03/2023 11:51 AG Ratio 0.6 ()?? 02/03/2023 11:51 Alkaline Phosphatase 652 units/L (High)?? 02/04/2023 06:00 GGTP 500 units/L (High)?? 02/04/2023 06:00 AST (SGOT) 21 units/L ()?? 02/03/2023 11:51 ALT (SGPT) 13 units/L ()?? 02/03/2023 11:51 Bilirubin, Total 0.6 mg/dL ()?? 02/03/2023 11:51 Lactate 1.1 mmol/L ()?? 02/03/2023 12:09 ?? VIROLOGY COVID-19 by RT-PCR NEGATIVE ()?? 02/03/2023 13:45 ? Microbiology ?? COVID-19 (Novel Coronavirus), Rapid PCR?? Completed?? Source: Nasal Body Site: Nose Collected Dt/Tm: 02/03/2023 13:38 Last Updated Dt/Tm: 02/03/2023 15:04 ? EKG study * Event Display: ECG 12-Lead Authored Date: Please click on pdf link to open report * Event Display: ECG 12-Lead Authored Date: Ventricular Rate: 110 BPM Atrial Rate: 110 BPM P-R Interval: 168 ms QRS Duration: 82 ms Q-T Interval: 346 ms QTC Calculation(Bazett): 468 ms R [place]: 92 degrees T [place]: -63 degrees Sinus tachycardia with Premature atrial complexes Rightward axis ST and T wave abnormality, consider inferior ischemia Abnormal ECG When compared with ECG of 28-JAN-2023 10:52, Questionable change in QRS axis ST now depressed in Anterior leads Inverted T waves have replaced nonspecific T wave abnormality in Inferior leads Confirmed by SAMI DEWITT ([id number]) on 02/07/2023 8:05:27 AM [place]: SAMI DEWITT * Event Display: EKG Authored Date: Cardiology * Event Display: Cardiac Rhythm Strips Authored Date: Hospital Progress note * Nik Esposito: PERFORM, SIGN, VERIFY Event Display: Progress Note Hospital Authored Date: Patient: TITO RICHARDSON Age: 57 years Sex: Male : 1965 Associated Diagnoses: None Author: Nik Esposito [facility] Progress Note Interval History No overnight events or acute complaints Plan for discharge today Review of Systems Review of Systems Constitutional: no fever, no night sweats. Respiratory: no shortness of breath. Cardiovascular: no peripheral edema, no chest pain. Gastrointestinal: no abdominal pain, no nausea, no diarrhea. Physical Examination Vital Signs Vitals : VITALS 02/11/2023 10:54 EDT Temperature 98 DegF Temperature Route Oral Pulse Rate 86 bpm Respiratory Rate 18 br/min Systolic Blood Pressure 132 mm Hg Diastolic Blood Pressure 67 mm Hg Mean Arterial Pressure 89 mm Hg Pulse Pressure 65 mm Hg Oxygen Saturation 100 % Mode of Delivery (Oxygen) Room air . General Appearance NAD. HEENT Moist mucous membranes. Respiratory Lungs: CTA. Cardiac Cardiac: no M/G/R. Rhythms: RRR. Abdomen/GI Abdomen: soft. Extremities Extremities: Right BKA. . No edema. Neurologic Alert & oriented x 3 . Results Review 7 Day Results Results Laboratory : LABORATORY 02/11/2023 5:30 EDT WBC 8.0 k/mm3 RBC 2.85 m/mm3 L Hgb 7.9 Gm/dL L Hct 24.8 % L MCV 87.0 femtoliters MCH 27.7 pg MCHC 31.9 g/dL L Platelet Count 538 k/mm3 H RDW-SD 46.9 femtoliters MPV 9.0 femtoliters L Nucleated RBC (Automated) 0.0 #/100 WBC'S Abs. NRBC 0.0 k/mm3 Abs. Neut 5.3 k/mm3 Abs. Lymph 1.7 k/mm3 Abs. Rhea 0.7 k/mm3 Abs. Eo 0.2 k/mm3 Abs. Baso 0.1 k/mm3 Neut % 65.7 % Lymph % 21.1 % Rhea % 8.7 % Eos % 2.4 % Baso % 1.5 % Imm Gran 0.6 % Abs. Imm Gran 0.1 k/mm3 Sodium 138 mmol/L Potassium 4.5 mmol/L Chloride 106 mmol/L Bicarbonate Level 22 mmol/L Anion Gap 10 Glucose Level 144 mg/dL H BUN 17 mg/dL Creatinine-Blood 3.0 mg/dL H Estimated GFR Creatinine 24 ML/MIN/1.73 M2 Calcium 7.7 mg/dL L Tacrolimus Level 5.0 ng/mL Impression and Plan Mr. Tito Richardson is a 57-year-old male with a past medical history of ESRD s/p DDKT (2013) on tacrolimus monotherapy, type II diabetes poorly controlled, s/p parathyroidectomy on calcitriol, neuropathy, recent RLE diabetic foot wound s/p BKA 01/25/23 who presented on 02/03/2023 with multiple falls in the setting of multiple days of diarrhea with nausea, course complicated by concern for melena and blurry vision likely in the setting of a vitreous hemorrhage and started on IV antibiotics for concern for right BKA stump cellulitis. Vascular surgery is following and patient had EGD and colonoscopy on 02/05 that revealed polyps and hemorrhoids but otherwise unrevealing for source of bleeding. He has been treated with IV antibiotics. 1. 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 Post-renal obstruction also considered given history of retention requiring [place] last admission, but has had normal bladder scans this admission. Plan: - Ok for discharge from renal standpoint - Continue tacrolimus 2mg BID and prednisone 10mg daily on discharge 2. Non-gap acidosis, improved Non-gap acidosis likely due to diarrhea and hyperchloremia from normal saline. Improved with IV bicarb. Plan - Continue home sodium bicarb tablets 650mg TID 3. S/p parathyroidectomy - Continue calcitriol 0.5 mcg daily 4. Anemia Hgb 7.9 (02/11) Tsat 12% and ferritin 4714 (02/05) Plan - Continue ferrous sulfate 325mg daily Thank you for the courtesy of this consult, RTANE will continue monitoring the patient along with you please do not hesitate to call us with any further questions Nik Vides PA-C [facility] [address] , [address] Available by codetag * Radha Nye RN: MODIFY, SIGN, SIGN, PERFORM, SIGN, VERIFY, MODIFY Event Display: Progress Note Hospital Authored Date: Patient: TITO RICHARDSON Age: 57 years Sex: Male : 1965 Associated Diagnoses: None Author: Rahda Nye RN Findings Problem Related to Alteration in Tissue Perfusion : Alteration in Tissue Perfusion 02/11/2023 2:00 EDT Alteration Tissue Perfusion related to Diabetes, Infection Goals & Outcomes: Tissue perfusion Pt will experience improved tissue perfusion, Pt will be hemodynamically stable, Pt will achieve normal/improved/optimal neuro status, Pt will maintain adequateGI function appropriate for pt, Pt will maintain adequate function appropriate for pt Interventions: Tissue Perfusion Assess/Monitor activity tolerance, Assess/Monitor cardiac dysrhythmias Goals/Interventions, Tissue Perfusion Yes Tissue Perfusion, Problem Start 02/09/2023 10:09 Reviewed Plan with, Tissue Perfusion Patient Patient Progression, Tissue Perfusion Pt progressing according to plan . Nursing Data Vital Signs : VITAL SIGNS SECTION 02/11/2023 1:00 EDT Temperature 98.5 DegF Temperature Route Oral Heart Rate Monitored 80 bpm Respiratory Rate 17 br/min Systolic Blood Pressure 136 mm Hg Diastolic Blood Pressure 67 mm Hg Blood pressure sites Leg, left Pulse Pressure 69 mm Hg Oxygen Saturation 100 % Mode of Delivery (Oxygen) Room air . Evaluation Pt arrived to unit via stretcher from [facility] @01:00am. Pt a/o x4 but made comments about being an alien and seeing more people in the room provider Lucia Ayala notified per order continue to monitor. Pt right BKA is red and warm to touch. Pt ambulates to bathroom 1 assist with walker. Pt normal sinuson tele , had a 4.32 second SVT with heart rate of 132 then went right back to sinus rhythm, provider Lucia Ayala notified no new orders at this time. Pt has LR running at 100ml/hr and IV antibiotics running. Pt calcium 7.7 provider Lucia Ayala notified no new orders at this time. Call valles in reach, safety measures maintained please see CIS for full assessment.. Discharge Information Rehabilitation Discharge : Rehab Discharge Index 02/09/2023 14:11 EDT Comments on treatment indicated adls fucnlt mob safety pt edu endurance Full chart review completed Yes Hospital course 57M with recent R BKA (01/25) who presents to the ED due to concerns for FTT and concern for infection of the BKA stump. * Jeannie Mccarty RN: PERFORM, SIGN, VERIFY Event Display: Progress Note Hospital Authored Date: Patient: TITO RICHARDSON Age: 57 years Sex: Male : 1965 Associated Diagnoses: None Author: Jeannie Mccarty RN Findings Narrative/Incidental Patient is alert and oriented. 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 He is acute. Patient is being transferred to [place] [id number] and report was given to the RN. Antibiotics were hung prior to transport. Patient has been informed of the transfer. Transport has been requested. There are no orders for the patient to remain on telemetry so he will transport unmonitored. . Consult note * Yvette Live MD: PERFORM, MODIFY Event Display: Consultation Note Authored Date: Patient: ??TITO RICHARDSON ? Age:??57 Years?Sex:??Male?:??1965?? Referrring Provider Not on Staff, Referring MD Dr. Watkins Chief Complaint arrives from home, lives by self, by EMS with c/o right leg pain. 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 ?? Patient reports that he has been having diarrhea for the past 2 months, recently worsening, about 10 bowel movements every day, including nocturnal diarrhea and urgency. ??He reports that sometimes her stools are black and sometimes they are dark brown. ??Patient has tried Imodium at home which slows down the diarrhea, takes up to 2 tablets every day. Patient was recently admitted 01/11 - 02/01 when he presented with complaints of diabetic foot infection, and underwent a right BKA, after a prolonged antibiotic course. ??Patient had stool testing performed, including C. difficile x2 which were -4 times, the last of which was done on 01/29. ??Patient also had a GI PCR performed on 01/14 which wasalso negative. ??Patient has never undergone a colonoscopy before. ??He reports that he has never had prolonged diarrhea before. ??He reports mild lower abdominal cramping pain associated with the diarrhea, and nausea with no vomiting. ?? Currently patient is hemodynamically stable, tachycardic to the 90s, saturating well on room air, afebrile. ??Labs significant for CBC WNL except hemoglobin 7.6 g/dL. ??In December 2022, patient was noted to have hemoglobin 13.3 g/dL. ??Platelets 547, coags not checked, BMP WNL, BUN 12/creatinine 2. ??Alk phos 747, GGT 500, AST 21, ALT 13, total bilirubin 0.6. Review of Systems ?? ROS was completed and otherwise negative except as noted in the HPI Physical Exam ?Gen Appearance: NAD, conversing appropriately ?HEENT: conjunctiva wnl, MMM?Heart: S1/S2 heard ?Lungs: No overt resp distress, CTA ?Abdomen: soft, nontender, nondistended?Musculoskeletal: No joint swelling/erythema ?Neurological: A/Ox3, no gross deficits ?Extremities:??Right BKA with??incision??with sutures? 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 ?? Subacute diarrhea Acute on chronic anemia Patient has been reporting worsening diarrhea for almost 2 months, responsive to Imodium, with concerning symptoms of nocturnal diarrhea and urgency. ??Patient reports intermittent black stools, currently has dark brown stools. ??Previous work-up is included C. difficile tested negative x2 including 1 performed 6 days ago, along with GI PCR panel performed a month ago which was negative. ??No prio r endoscopic evaluation has been performed. ??Patient also has acute on chronic anemia developed since his prior hospitalization, with drop from 13 g/dL to now 7.6 g/dL, MCV 85. ??No anemia work-up performed till now. ?? Recommendations: ???Obtain GI PCR panel - Will plan for EGD and colonoscopy tomorrow - CLD today and NPO??after MN - Bowel prep ordered ?? Elevated GGT Patient has evidence of cholestasis with elevated alk phos and GGT, and normal AST/ALT/total bilirubin. ??Alk phos was noted to be normal on 01/10, and has been gradually uptrending since then. ??Patient has not had any imaging for the same. ??Differential for cholestasis includes primarily biliary cholangitis, primary sclerosing cholangitis, biliary obstruction due to stones, strictures, or neopla tyrese, hepatic congestion and drug-induced liver injury. ?? Recommendations: ???Obtain RUQ US - Obtain Hepatitis Panel (Hep A IgM, HsbAg, Hep B core ab IgM, Hep C ab) ?? Discussed with Dr. Calderon Problem List/Past Medical History Ongoing Obese class I Procedure/Surgical History ???Debridement of hindfoot, right (01/17/2023) Medications Inpatient Acetaminophen Tablet, 650 mg, By Mouth, Every 4 hours, PRN amLODIPine 5 mg oral tablet, 5 mg, By Mouth, Daily atorvastatin 10 mg oral tablet, 40 mg, By Mouth, Daily calcitriol 0.25 mcg oral capsule, 0.5 mcg, By Mouth, Daily Docusate/Senna Tablet, 1 tablet, By Mouth, 2 times a day, PRN gabapentin 100 mg oral capsule, 100 mg, By Mouth, Daily at bedtime Heparin Inj, 5000 units= 1 mL, Subcutaneous Injection, 3 times a day hydrOXYzine hydrochloride 10 mg oral tablet, 10 mg, By Mouth, 2 times a day Insulin Glargine Inj, 20 units= 0.2 mL, Subcutaneous Injection, Daily at bedtime Insulin LISPRO Sliding Scale, 2-10 units, Subcutaneous Injection, 3 times a day before meals LR 1,000 mL, 1000 mL, IV Infusion Melatonin Tablet, 3 mg, By Mouth, Daily at bedtime, PRN Metoprolol Succinate ER 25 mg oral tablet, extended release, 25 mg, By Mouth, Daily NaCL 0.9% Flush, 3 mL, IV Push, Every 8 hours NaCL 0.9% Flush, 3 mL, IV Push, Every 8 hours, PRN Protonix Inj, 40 mg, IV Push Slowly, Every 12 hours sodium bicarbonate 650 mg oral tablet, 650 mg, By Mouth, 2 times a day tacrolimus 1 mg oral capsule, 2 mg, By Mouth, Daily at bedtime tacrolimus 1 mg oral capsule, 2 mg, By Mouth, Daily before breakfast traMADol 50 mg oral tablet, 50 mg, By Mouth, Every 6 hours, PRN traZODone 50 mg oral tablet, 25 mg, By Mouth, Daily at bedtime Tylenol 325 mg oral tablet, 975 mg, By Mouth, Every 6 hours, PRN Vancomycin IVPB, 1250 mg, 15 mg/kg, IVPB, Every 48 hours Zosyn Extended IVPB, 3.375 Gm, IVPB, Every 8 hours Home amLODIPine 5 mg oral tablet, 5 mg= 1 tablet, By Mouth, Daily atorvastatin 10 mg oral tablet, 10 mg= 1 tablet, By Mouth, Daily calcitriol 0.5 mcg oral capsule, 0.5 mcg= 1 capsule, By Mouth, Daily gabapentin 100 mg oral capsule, 100 mg= 1 capsule, By Mouth, Daily at bedtime hydrOXYzine hydrochloride 10 mg oral tablet, 10 mg= 1 tablet, By Mouth, 2 times a day insulin lispro 100 units/mL injectable solution, 6 units, Subcutaneous Injection, 3 times a day before meals Lantus Solostar Pen 100 units/mL subcutaneous solution lidocaine 5% topical film, 1 patch, Topically, Daily, PRN Metoprolol Succinate ER 25 mg oral tablet, extended release, 25 mg= 1 tablet, By Mouth, Daily predniSONE 10 mg oral tablet, 10 mg= 1 tablet, By Mouth, Daily sodium bicarbonate 650 mg oral tablet, 650 mg= 1 tablet, By Mouth, 3 times a day tacrolimus 1 mg oral capsule, 2 mg= 2 capsule, By Mouth, Every 12 hours traMADol 50 mg oral tablet, 50 mg= 1 tablet, By Mouth, Every 6 hours, PRN traZODone 50 mg oral tablet, 25 mg= 0.5 tablet, By Mouth, Daily at bedtime Allergies morphine Social History Alcohol Frequency: 1-2 times per year. Tobacco Use: Never (less than 100 in lifetime). Family History No family history of GI cancers Lab Results See HPI Diagnostic Results No Abd imaging * Josemanuel Calderon MD: PERFORM Event Display: Consultation Note Authored Date: [id number] Attending Attestation:??I have seen and evaluated this patient. ??I have discussed the case and themanagement with the fellow, and agree with the findings and plan as documented in the fellow???s note. * Jacoby Sood MD: PERFORM, SIGN, VERIFY Event Display: Consultation Note Authored Date: [id number] Patient: TITO RICHARDSON Age: 57 years Sex: Male : 1965 Associated Diagnoses: None Author: Jacoby Sood MD [facility] Consultation Note Requesting Provider: Dr Barrera Begum Reason for Consult: Transplant Management History of Present Illness Mr. Tito Richardson is a 57-year-old male with a past medical history of ESRD s/p DDKT (2013) on tacrolimus monotherapy, type II diabetes poorly controlled, s/p parathyroidectomy on calcitriol, neuropathy, who presented to [facility] on 01/10 with a RLE diabetic foot wound s/p BKA 01/25/23 who presents on 02/03/23 with concern for infection of the BKA stump. The patient refused rehab after his BKA, and at home he has done very poorly. He has not been able to get up. Family has not been able to assist him. He has not taken any medications for the last 2 days. Review of Systems Constitutional: No weight loss, fever, chills, weakness or fatigue. HEENT: No visual loss, blurred vision, double vision or yellow sclera. No hearing loss, sneezing, congestion, runny nose or sore throat. Skin: No rash or itching. Cardiovascular: No chest pain, chest pressure or chest discomfort. No palpitations or pedal edema. Respiratory: No shortness of breath, cough or sputum production. Gastrointestinal: Negative for nausea, vomiting & diarrhea. No abdominal pain or blood in stool. Genitourinary: No burning micturition. No urinary frequency or incontinence. Neurologic: No headache, dizziness, syncope, unilateral weakness, ataxia Musculoskeletal: No muscle pain, back pain, joint pain or stiffness. Hematologic: No bleeding or bruising. Lymphatics: No enlarged lymph nodes. Psychiatric: No depression or anxiety. Endocrine: No reports of sweating. No cold or heat intolerance. No polyuria or polydipsia. Health Status Allergies: Allergies (Active and Proposed Allergies Only) morphine (Severity: Unknown severity, Onset: Unknown) Past Medical History: Obese class I ESRD Medications: Amlodipine (amLODIPine 5 mg oral tablet) 1 tab(s) 5 Milligram By Mouth Daily TAKE ONE TABLET EVERY MORNING Atorvastatin (atorvastatin 10 mg oral tablet) 1 tab(s) 10 Milligram By Mouth Daily TAKE ONE TABLET EVERY MORNING Calcitriol (calcitriol 0.5 mcg oral capsule) 1 capsule 0.5 Microgram By Mouth Daily TAKE ONE CAPSULE EVERY MORNING Gabapentin (gabapentin 100 mg oral capsule) 100 Milligram 1 capsule By Mouth Daily at bedtime TAKE ONE CAPSULE BY MOUTH AT BEDTIME HydrOXYzine (hydrOXYzine hydrochloride 10 mg oral tablet) 1 tab(s) 10 Milligram By Mouth 2 times a day TAKE ONE TABLET BY MOUTH IN THE MORNING AND EVENING Insulin Glargine (Lantus Solostar Pen 100 units/mL subcutaneous solution) INJECT 48 UNITS SUBCUTANEOUSLY EVERY EVENING Insulin Lispro (insulin lispro 100 units/mL injectable solution) 6 unit(s) Subcutaneous Injection 3times a day before meals Lidocaine Topical (lidocaine 5% topical film) 1 patch(es) Topically Daily as needed Pain , Mild remove after 12 hours Metoprolol (Metoprolol Succinate ER 25 mg oral tablet, extended release) 1 tab(s) 25 Milligram By Mouth Daily TAKE ONE TABLET EVERY MORNING PredniSONE (predniSONE 10 mg oral tablet) 1 tab(s) 10 Milligram By Mouth Daily TAKE ONE TABLET BY MOUTH EVERY MORNING sodium bicarbonate (sodium bicarbonate 650 mg oral tablet) 1 tab(s) 650 Milligram By Mouth 3 times a day TAKE ONE TABLET BY MOUTH THREE TIMES DAILY Tacrolimus (tacrolimus 1 mg oral capsule) 2 capsule 2 Milligram By Mouth Every 12 hours Tramadol (traMADol 50 mg oral tablet) 1 tab(s) 50 Milligram By Mouth Every 6 hours as needed Pain ,Moderate TAKE ONE TABLET EVERY 6 HOURS NEEDED FOR PAIN Trazodone (traZODone 50 mg oral tablet) 25 Milligram 0.5 tablet By Mouth Daily at bedtime TAKE 1/2 TABLET AT BEDTIME Social History: Alcohol Details: Frequency: 1-2 times per year. Tobacco Details: Use: Never (less than 100 in lifetime). Family History: No family history of ESRD Physical Examination Temperature 98.3 (10:53) Systolic Blood Pressure 164 (10:53) Diastolic Blood Pressure 91 (10:53) Pulse 90 (10:53) SpO2 100 (10:53) Respiratory Rate 16 (13:29) General Appearance NAD. HEENT Moist mucous membranes. Respiratory Lungs: CTA. Cardiac Rhythms: RRR. Abdomen/GI Abdomen: soft, non-tender. Extremities No edema. Right BKA noted. Neurologic Alert & oriented x 3 . Results Review General results Today's results 02/03/2023 11:51 EDT WBC 10.9 k/mm3 RBC 3.04 m/mm3 L Hgb 8.3 Gm/dL L Hct 26.2 % L MCV 86.2 femtoliters MCH 27.3 pg MCHC 31.7 g/dL L Platelet Count 593 k/mm3 H RDW-SD 47.4 femtoliters H MPV 9.1 femtoliters L Nucleated RBC (Automated) 0.0 #/100 WBC'S Abs. NRBC 0.0 k/mm3 Abs. Neut 8.5 k/mm3 H Abs. Lymph 1.1 k/mm3 Abs. Rhea 1.1 k/mm3 Abs. Eo 0.1 k/mm3 Abs. Baso 0.1 k/mm3 Neut % 77.9 % H Lymph % 9.6 % L Rhea % 10.4 % Eos % 0.8 % Baso % 0.8 % Imm Gran 0.5 % Abs. Imm Gran 0.1 k/mm3 Sodium 131 mmol/L L Potassium 4.6 mmol/L Chloride 96 mmol/L L Bicarbonate Level 24 mmol/L Anion Gap 11 Glucose Level 297 mg/dL H BUN 14 mg/dL Creatinine-Blood 2.3 mg/dL H Estimated GFR Creatinine 33 ML/MIN/1.73 M2 Calcium 7.8 mg/dL L Protein, Total 6.0 Gm/dL L Albumin 2.3 Gm/dL L AG Ratio 0.6 Alkaline Phosphatase 747 units/L H AST (SGOT) 21 units/L ALT (SGPT) 13 units/L Bilirubin, Total 0.6 mg/dL Impression and Plan Mr. Tito Richardson is a 57-year-old male with a past medical history of ESRD s/p DDKT (2013) on tacrolimus monotherapy, type II diabetes poorly controlled, s/p parathyroidectomy on calcitriol, neuropathy, recent RLE diabetic foot wound s/p BKA 01/25/23 who presents on 02/03/23 with concern for infectionof the BKA stump. 1. 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 Plan: - LR at 100cc/hr - Continue Tacrolimus 2 mg BID - Check tacro level daily at 7am (goal is 6-9) - Avoid nephrotoxins - Daily renal panel 2. S/p parathyroidectomy - Continue calcitriol 0.5 mcg daily Thank you for the courtesy of this consult, RTANE will continue monitoring the patient along with you please do not hesitate to call us with any further questions Jacoby Sood M.D. [facility] [address] , [address] Available by [employer] * Carlie Smith MD: MODIFY, MODIFY, MODIFY, PERFORM, MODIFY Event Display: Consultation Note Authored Date: Patient: ??TITO RICHARDSON ? Age:??57 Years?Sex:??Male?:??1965?? Chief Complaint Consultation Reason:??failure to thrive, s/p fall onto BKA stump, concern for BKA stump infection Consulting Provider:??Aaron Sanchez MD Consulted Surgeon:??Jordy SEVERINO History of Present Illness Tito is a 57yoM with PMH significant for diabetes, hypertension, ESRD s/p DDKT (2014) and recent right heel diabetic infection requiring multiple debridements ultimately culminating in BKA (01/25) who presents to the ED due to concerns for failure to thrive and concern for infection of the BKA stump.?? The vascular surgery service??had signed off on 01/28,??and the medical service had discharged him on 02/01??to home with VNA and family help,??as the patient had refused to go to rehab.?? Since then,??the patient has pretty much been immobile, as he is unable to get up without help and apparently his family has not been by to help him.?? He has been unable to get up and go to his pillbox, so he has not taken any medications for the last 2 days since arriving home from the hospital.??Hesays that he has been trying to use his Ampushield, but that it keeps slipping off and he has not really been able to put it on correctly. Yesterday,??he was overwhelmed by his urge to use the restroom, so he did attempt to get up??and ended up falling??onto??his right BKA stump. ??At that time, hedid notice??expression of??a milky white substance??as well as some blood come out from between thesutures on the medial aspect of his stump.?He thinks that he had a fever this morning, because he felt very hot and very sweaty, denies chills. ??He is telling me that he now realizes how hard it is to??take care of himself with only 1 leg available for weightbearing, and he is now amenable to go to rehab. Review of Systems 12-point review of systems was reviewed and is negative except as per HPI.?? Physical Exam Vitals & Measurements T:??98.3?F?? HR:??90??(Peripheral)?? RR:??18?? BP:??164/91?? SpO2:??100%?? General: no acute distress, awake, alert HEENT: NCAT, EOM grossly intact, trachea midline CV: RRR Pulm: nonlabored breathing on room air Abd: nondistended RLE: BKA stump with sutures and intermittent cruzito c/d/i with no dehiscence, there is some swelling and mild erythema on the lateral aspect, unable to assess for fluctuance or expressible fluid dueto significant tenderness with palpation, patient is able to extend the knee fully Skin: no rash on limited exam, warm and well-perfused Neuro: answers questions appropriately Psych: distracted but easily redirectable, appropriate Assessment/Plan Tito is a 57yoM with PMH significant for diabetes, hypertension, ESRD s/p DDKT (2014) and recent right heel diabetic infection requiring multiple debridements ultimately culminating in BKA (01/25) who presents to the ED due to concerns for failure to thrive and concern for infection of the BKA stump. ??The patient unfortunately suffered a fall directly onto the BKA stump??yesterday, and he reports??expression??of possibly purulent fluid. We will proceed with CT scan to evaluate for underlying abscess. ?? RECOMMENDATIONS CT RLE to evaluate stump Admission to medicine given multiple medical co-morbidities Broad-spectrum IV antibiotics NWB RLE Encourage ROM of the BKA stump - frequent flexion/extension to prevent contractures Patient's family member will bring his Ampushield in next time they visit ?? Please page Vascular Surgery with any questions or concerns [id number]. Discussed with attending physician Dr. Spence Problem List/Past Medical History Diabetes Hypertension Hypothyroidism ESRD Procedure/Surgical History DDKT 2014 LUE AVF L5 amputation Right heel debridements (01/12, 01/17, 01/21) Right below knee guillotine amputation (01/23), completion BKA (01/25) Home Medications Amlodipine: 5 mg = 1 tablet, By Mouth, Daily, TAKE ONE TABLET EVERY MORNING Atorvastatin: 10 mg = 1 tablet, By Mouth, Daily, TAKE ONE TABLET EVERY MORNING Calcitriol: 0.5 mcg = 1 capsule, By Mouth, Daily, TAKE ONE CAPSULE EVERY MORNING Gabapentin: 100 mg = 1 capsule, By Mouth, Daily at bedtime, TAKE ONE CAPSULE BY MOUTH AT BEDTIME HydrOXYzine: 10 mg = 1 tablet, By Mouth, 2 times a day, TAKE ONE TABLET BY MOUTH IN THE MORNING ANDEVENING Insulin Glargine: INJECT 48 UNITS SUBCUTANEOUSLY EVERY EVENING Insulin Lispro: 6 units, Subcutaneous Injection, 3 times a day before meals Lidocaine Topical: 1 patch, Topically, Daily, PRN (Pain , Mild), remove after 12 hours Metoprolol: 25 mg = 1 tablet, By Mouth, Daily, TAKE ONE TABLET EVERY MORNING PredniSONE: 10 mg = 1 tablet, By Mouth, Daily, TAKE ONE TABLET BY MOUTH EVERY MORNING sodium bicarbonate: 650 mg = 1 tablet, By Mouth, 3 times a day, TAKE ONE TABLET BY MOUTH THREE TIMES DAILY Tacrolimus: 2 mg = 2 capsule, By Mouth, Every 12 hours Tramadol: 50 mg = 1 tablet, By Mouth, Every 6 hours, PRN (Pain , Moderate), TAKE ONE TABLET EVERY 6HOURS NEEDED FOR PAIN Trazodone: 25 mg = 0.5 tablet, By Mouth, Daily at bedtime, TAKE 1/2 TABLET AT BEDTIME Allergies morphine Social History No tobacco use No recreational drug use Lives alone Family History No family history of bleeding or clotting disorders No family history of perianesthesia complications Lab Results Labs Last 24 Hours No qualifying data available. Note * Fausto ESPAÑA, Trish Lyons: PERFORM Event Display: Discharge/Transfer Note Hospital Authored Date: [id number] Nursing Discharge Note Entered On: 02/11/2023 11:09 EDT Performed On: 02/11/2023 11:09 EDT by Trish Lambert RN Nursing Discharge Note 2 Discharge Time : 02/11/2023 11:40 EDT Discharge Comments : pt dc with all belongings. Trish Lambert RN - 02/11/2023 18:10 EDT Discharge Level of Care at Discharge : Short-term Acute Inpatient Discharge Nursing Homes/Rehab Facilities : [facility] Patient Left Unit Via : Wheelchair Patient Accompanied Off Unit with : Ambulance/Chair Van Personnel Handover Given to Transport Personnel : Yes DC Instructions Provided & Signed by Pt : Yes Patient Understands D/C Instructions : Yes Verbalized Understanding of D/C Plan By : Patient Patient Instructions Discharge Signed : Yes Did Pt have Specialty Bed or Wound Vac : No Trish Lambert RN - 02/11/2023 11:09 EDT * Jennifer SEVERINO, Arcenio: MODIFY, PERFORM, MODIFY Event Display: Discharge/Transfer Note Hospital Authored Date: [id number] Patient: ??TITO RICHARDSON ? Age:??57 Years?Sex:??Male?:??1965?? Patient Information Discharge Location: W4 Primary Care Physician: Zoraida Luo MD Admit Date/Time: 02/03/23 13:36 Discharge Disposition Discharge Disposition: ?? Discharge Diagnosis Alkaline phosphatase elevation (R74.8) Blurred vision (H53.8) Diarrhea (R19.7) FTT (failure to thrive) in adult (R62.7) Fall at home (W19.XXXA) Surgical site infection (T81.49XA) Wound infection after surgery (T81.49XA) ?? _ Discharge Medications Amlodipine (amLODIPine 5 mg oral tablet)?1?tab(s)?5?Milligram?By Mouth?Daily?TAKE ONE TABLET EVERY MORNING Aspirin (aspirin 81 mg oral delayed release tablet)?81?Milligram?By Mouth?Daily Atorvastatin (atorvastatin 10 mg oral tablet)?1?tab(s)?10?Milligram?By Mouth?Daily?TAKE ONE TABLET EVERY MORNING Calcitriol (calcitriol 0.5 mcg oral capsule)?1?capsule?0.5?Microgram?By Mouth?Daily?TAKE ONE CAPSULE EVERY MORNING Ferrous Sulfate (ferrous sulfate 325 mg oral enteric coated tablet)?325?Milligram?By Mouth?Daily Gabapentin (gabapentin 100 mg oral capsule)?100?Milligram?1?capsule?By Mouth?Daily at bedtime?TAKE ONE CAPSULE BY MOUTH AT BEDTIME HydrOXYzine (hydrOXYzine hydrochloride 10 mg oral tablet)?1?tab(s)?10?Milligram?By Mouth?2 times a day?TAKE ONE TABLET BY MOUTH IN THE MORNING AND EVENING Insulin Glargine (Insulin Glargine Inj)?0.05?Milliliter?5?unit(s)?Subcutaneous Injection?Daily at bedtime Insulin Lispro (insulin lispro 100 units/mL injectable solution)?6?unit(s)?Subcutaneous Injection?3 times a day before meals Lidocaine Topical (lidocaine 5% topical film)?1?patch(es)?Topically?Daily?as needed?Pain , Mild?remove after 12 hours Loperamide (loperamide 2 mg oral capsule)?2?Milligram?By Mouth?Every 3 hours?as needed?Loose Stool Metoprolol (Metoprolol Succinate ER 25 mg oral tablet, extended release)?1?tab(s)?25?Milligram?By Mouth?Daily?TAKE ONE TABLET EVERY MORNING Pantoprazole (pantoprazole 20 mg oral delayed release tablet)?20?Milligram?By Mouth?Daily PredniSONE (predniSONE 10 mg oral tablet)?1?tab(s)?10?Milligram?By Mouth?Daily sodium bicarbonate (sodium bicarbonate 650 mg oral tablet)?1?tab(s)?650?Milligram?ByMouth?3 times a day?TAKE ONE TABLET BY MOUTH THREE TIMES DAILY Tacrolimus (tacrolimus 1 mg oral capsule)?2?capsule?2?Milligram?By Mouth?Every 12hours Tramadol (traMADol 50 mg oral tablet)?1?tab(s)?50?Milligram?By Mouth?Every 6 hours?as needed?Pain , Moderate?for 1?Days?TAKE ONE TABLET EVERY 6 HOURS NEEDED FOR PAIN Trazodone (traZODone 50 mg oral tablet)?25?Milligram?0.5?tablet?By Mouth?Daily at bedtime?TAKE 1/2 TABLET AT BEDTIME ? Medications Started none Medications Discontinued None Doses Changed Insulin Glargine (Insulin Glargine Inj)?0.05?Milliliter?5?unit(s)?Subcutaneous Injection?Daily at bedtime Allergies Allergies ?(Active and Proposed Allergies Only) morphine? (Severity: Unknown severity, Onset: Unknown) ? Future Appointments Wednesday 3:30 PM EDT ?? With: Justina Newberry NP Where: [address] [place] [address]- Status: Pending 2022 2:30 PM EDT ?? With: Kierra LAMB, Chris Avalos Where: [facility] [address] [place] [address]- Status: Pending Hospital Course ??Tito is??a 57-year-old male with history of ESRD secondary to diabetic nephropathy status post donor kidney transplant 2013 with recurrent CKD baseline creatinine 2.4, parathyroidectomy, diabetic neuropathy, right BKA secondary to diabetic foot wound with osteomyelitis who presented initially with multiple falls in the setting of multiple days of diarrhea with nausea, course complicated by concern for melena and blurry vision likely in the setting of a vitreous hemorrhage and startedon IV antibiotics for concern for right BKA stump cellulitis.?? Vascular surgery is following. Patient had EGD and colonoscopy on 02/05 that revealed polyps and hemorrhoids but otherwise unrevealing for source of bleeding.?He finished IV antibiotics. In day of discharge, patient seen at bedside. ??Denying chest pain or shortness of breath. ??Patient is interested to go to rehab. ? Right BKA Stump cellulitis- treated Was complaining of pain at surgical site,??appears overall stable ?? Tramadol as needed for??moderate pain Completed Zosyn and vancomycin for a 7-day course, 02/04- Nonweightbearing to right lower extremity Betadine to right BKA stump Follow-up blood cultures, repeat negative to date Follow-up in Vascular Surgery??- scheduled 03/01/23 @ 15:30 ?? ESRD donor kidney transplant on immunosuppression Subsequent CKD [place] metabolic acidosis Nephrology following, patient does have significant acidosis??started him on a bicarb drip s/p IV bicarb? Plan: Continue calcitriol 0.5 mg MCG's daily Continue tacrolimus 2 mg twice a day Continue sodium bicarbonate 650 mg twice a day prednisone ?? Diarrhea Concern for melena???resolved Colonoscopy pathology negative on mucosal biopsies for??inflammation??or infiltration In speaking with his sister,??he reports chronic diarrhea since childhood but has been worse??recently,??unable to provide a specific timeline though ?? Plan: Imodium as needed for diarrhea?? Pepto-Bismol as needed for symptoms Colonoscopy follow-up per path results and GI ?? Hypoglycemia-improved Type 2 diabetes complicated by diabetic nephropathy, and neuropathy intermittent episodes of hypoglycemia as well as hyperglycemia He is eating his meals??unclear??why he is having episodes of hypoglycemia??but he is symptomatic. ?? Plan: Decreased Lantus to 5 units nightly form 15 Continue gabapentin ?? Syncope/ falls In setting of infeciton and diarrhea ?? Vitreous hemorrhage: Reports vision is stable ?? Hypertension Hyperlipidemia Has been normotensive ?? Plan: Aspirin 81 mg daily Continue amlodipine 5 mg daily Continue atorvastatin 40 mg daily Continue metoprolol 50 mg extended release daily ?? US with 1. No sonographically apparent choledocholithiasis status post cholecystectomy. 2. ??Mildly nodular contour of the liver, nonspecific. 3. ??Mildly complex cystic structure in the midpole of the right kidney measuring up to 1.4 cm withinternal low-level echoes and questionable mild vascular flow. Neoplasm not entirely excluded. For further characterization consider contrast enhanced MRI abdomen. 4. ??Echogenic right kidney consistent with medical renal disease.?? 5. ??Multiple echogenic branching shadowing structures which may represent vascular calcifications or nonobstructing calculi. ?? -Further assessment as oupt. ?? Code status: Full Diet: Renal Objective Vital Signs?? Temperature: 98 DegF (02/11/23 08:16:00) Temperature Route: Axillary (02/11/23 08:16:00) Pulse Rate: 82 bpm (02/11/23 08:16:00) Heart Rate Monitored: 80 bpm (02/11/23 01:00:00) Respiratory Rate: 16 br/min (02/11/23 08:16:00) Vented: No (02/11/23 00:00:00) Systolic Blood Pressure: 130 mm Hg (02/11/23 08:16:00) Diastolic Blood Pressure: 69 mm Hg (02/11/23 08:16:00) Blood pressure sites: Arm, right (02/11/23 08:16:00) Mean Arterial Pressure: 89 mm Hg (02/11/23 08:16:00) Pulse Pressure: 61 mm Hg (02/11/23 08:16:00) Oxygen Saturation: 99 % (02/11/23 08:16:00) Mode of Delivery (Oxygen): Room air (02/11/23 08:16:00) Early Warning Score: 0 (02/11/23 08:16:59) SOFA Calculated: -1 (02/10/23 22:09:22) ? . Physical Exam General?NAD, AAO HEENT?PERRLA, oropharynx clear, moist mucus membranes Pulm?CTA bilaterally, no wheezes/rhonchi/rales CV?RRR, +S1/S2, no murmurs/rubs GI?Soft, nontender, nondistended, no organomegaly, bowel sounds are present Neuro?Moves all extremities MS?no obvious deformity Psych?Mood appropriate to situation? Right BKA Surgical Procedures Colonoscopy/Gastroscopy (EGD) 02/05/2023 11:47 Pending Results Tacrolimus Level ordered on 02/04/2023 Tacrolimus Level ordered on 02/11/2023 Follow-Up Appointments Added Follow Up ?Time Frame ?Comments Zoraida Luo MD?3-5 day: call to discuss follow up visit Home Health Face to Face ^HomeHealth[facility] Results Discharge Labs BLOOD COUNT & DIFF WBC 8.0 k/mm3 ()?? 02/11/2023 05:30 RBC 2.85 m/mm3 (Low)?? 02/11/2023 05:30 Hgb 7.9 Gm/dL (Low)?? 02/11/2023 05:30 Hct 24.8 % (Low)?? 02/11/2023 05:30 MCV 87.0 femtoliters ()?? 02/11/2023 05:30 MCH 27.7 pg ()?? 02/11/2023 05:30 MCHC 31.9 g/dL (Low)?? 02/11/2023 05:30 Platelet Count 538 k/mm3 (High)?? 02/11/2023 05:30 RDW-SD 46.9 femtoliters ()?? 02/11/2023 05:30 MPV 9.0 femtoliters (Low)?? 02/11/2023 05:30 Nucleated RBC (Automated) 0.0 #/100 WBC'S ()?? 02/11/2023 05:30 Abs. NRBC 0.0 k/mm3 ()?? 02/11/2023 05:30 Abs. Neut 5.3 k/mm3 ()?? 02/11/2023 05:30 Abs. Lymph 1.7 k/mm3 ()?? 02/11/2023 05:30 Abs. Rhea 0.7 k/mm3 ()?? 02/11/2023 05:30 Abs. Eo 0.2 k/mm3 ()?? 02/11/2023 05:30 Abs. Baso 0.1 k/mm3 ()?? 02/11/2023 05:30 Neut % 65.7 % ()?? 02/11/2023 05:30 Lymph % 21.1 % ()?? 02/11/2023 05:30 Rhea % 8.7 % ()?? 02/11/2023 05:30 Eos % 2.4 % ()?? 02/11/2023 05:30 Baso % 1.5 % ()?? 02/11/2023 05:30 Hemoglobin (POC) POC Cartridge 9.9 Gm/dL (Low)?? 02/06/2023 19:33 Hematocrit (POC) POC Cartridge 29 % (Low)?? 02/06/2023 19:33 Imm Gran 0.6 % ()?? 02/11/2023 05:30 Abs. Imm Gran 0.1 k/mm3 ()?? 02/11/2023 05:30 ?? BLOOD GAS pH (POC) POC Cartridge 7.53 (High)?? 02/06/2023 19:33 pCO2 (POC) POC Cartridge 19.4 mm Hg (Critical)?? 02/06/2023 19:33 pO2 (POC) POC Cartridge 168 mm Hg (High)?? 02/06/2023 19:33 Estimated Bicarbonate (POC) POC Cart 16.0 mmol/L (Low)?? 02/06/2023 19:33 % O2 Sat Arterial (POC) POC Cartridge 100 % ()?? 02/06/2023 19:33 FIO2 (POC) POC Cartridge 40 % ()?? 02/06/2023 19:33 Base Excess (POC) POC Cartridge NEGATIVE 7 ()?? 02/06/2023 19:33 Specimen Type - Blood Gas ARTERIAL ()?? 02/06/2023 19:33 ?? CARDIAC High Sensitivity Troponin (HSTnT) 48 ng/L (High)?? 02/04/2023 10:10 ? CHEM GENERAL Sodium 138 mmol/L ()?? 02/11/2023 05:30 Potassium 4.5 mmol/L ()?? 02/11/2023 05:30 Chloride 106 mmol/L ()?? 02/11/2023 05:30 Bicarbonate Level 22 mmol/L ()?? 02/11/2023 05:30 Anion Gap 10 ()?? 02/11/2023 05:30 Sodium (POC) POC Cartridge 135 mmol/L ()?? 02/06/2023 19:33 Potassium (POC) POC Cartridge 3.8 mmol/L ()?? 02/06/2023 19:33 Glucose Level 144 mg/dL (High)?? 02/11/2023 05:30 Glucose (POC) POC Cartridge 165 (High)?? 02/06/2023 19:33 Glucose, POC 117 mg/dL (High)?? 02/11/2023 08:02 BUN 17 mg/dL ()?? 02/11/2023 05:30 Creatinine-Blood 3.0 mg/dL (High)?? 02/11/2023 05:30 Estimated GFR Creatinine 24 ML/MIN/1.73 M2 ()?? 02/11/2023 05:30 Calcium 7.7 mg/dL (Low)?? 02/11/2023 05:30 Ionized Calcium (POC) POC Cartridge 1.15 mmol/L ()?? 02/06/2023 19:33 Protein, Total 6.0 Gm/dL (Low)?? 02/03/2023 11:51 Albumin 2.3 Gm/dL (Low)?? 02/03/2023 11:51 AG Ratio 0.6 ()?? 02/03/2023 11:51 Alkaline Phosphatase 652 units/L (High)?? 02/04/2023 06:00 GGTP 500 units/L (High)?? 02/04/2023 06:00 AST (SGOT) 15 units/L ()?? 02/07/2023 06:18 ALT (SGPT) 13 units/L ()?? 02/07/2023 06:18 Bilirubin, Total 0.6 mg/dL ()?? 02/03/2023 11:51 Vitamin B12 Level 1427 pg/mL (High)?? 02/05/2023 05:41 Folic Acid Level 14.4 ng/mL ()?? 02/05/2023 05:41 Lactate 1.1 mmol/L ()?? 02/03/2023 12:09 Iron Level 17 mcg/dL (Low)?? 02/05/2023 05:41 Iron Binding Capacity, Unsaturated 125 mcg/dL ()?? 02/05/2023 05:41 Iron Binding Capacity, Estimated Total 142 mcg/dL (Low)?? 02/05/2023 05:41 % Iron Saturation 12 % (Low)?? 02/05/2023 05:41 Ferritin Level 474 ng/mL (High)?? 02/05/2023 05:41 ? HEME OTHER Hold Lavender Top SPECIMEN DISCARDED AFTER 24 HOURS. ()?? 02/09/2023 08:29 Hold Blue Top SPECIMEN DISCARDED AFTER 4 HOURS. ()?? 02/06/2023 19:29 ?? MISC. CHEMISTRY Hold Green Top SPECIMEN DISCARDED AFTER 1 WEEK ()?? 02/06/2023 19:29 Hold Gel Top SPECIMEN DISCARDED AFTER 1 WEEK ()?? 02/04/2023 10:10 Hold Corley Top SPECIMEN DISCARDED AFTER 1 WEEK ()?? 02/06/2023 19:29 ? SEROLOGY INF DISEASE C.difficile Toxin Negative. C.Difficile bacterial antigen and toxin not detected. A (N)?? 02/06/2023 18:29 Hepatitis B Surface Antigen NEGATIVE ()?? 02/05/2023 05:41 Hepatitis B Core Ab, IgM NEGATIVE ()?? 02/05/2023 05:41 Hepatitis C Ab Non Reactive ()?? 02/05/2023 05:41 Anti-HBS Quant 14.3 mIU/mL ()?? 02/05/2023 05:41 Anti-HAV IgG POSITIVE ()?? 02/04/2023 17:37 ?? STOOL STUDIES GI PCR, Campylobacter NEGATIVE ()?? 02/04/2023 10:10 GI PCR, Plesiomonas shigelloides NEGATIVE ()?? 02/04/2023 10:10 GI PCR, Salmonella NEGATIVE ()?? 02/04/2023 10:10 GI PCR, Vibrio NEGATIVE ()?? 02/04/2023 10:10 GI PCR, Vibrio cholerae NEGATIVE ()?? 02/04/2023 10:10 GI PCR, Yersinia enterocolitica NEGATIVE ()?? 02/04/2023 10:10 GI PCR, Enteroaggregative E coli NEGATIVE ()?? 02/04/2023 10:10 GI PCR, Enteropathogenic E coli NEGATIVE ()?? 02/04/2023 10:10 GI PCR, Enterotoxigenic E coli NEGATIVE ()?? 02/04/2023 10:10 GI PCR, Zsftq-xgfai-zjidtxcen E coli NEGATIVE ()?? 02/04/2023 10:10 GI PCR, Shigella/Enteroinvasive E coli NEGATIVE ()?? 02/04/2023 10:10 GI PCR, Cryptosporidium NEGATIVE ()?? 02/04/2023 10:10 GI PCR, Cyclospora cayetanensis NEGATIVE ()?? 02/04/2023 10:10 GI PCR, Entamoeba histolytica NEGATIVE ()?? 02/04/2023 10:10 GI PCR, Giardia lamblia NEGATIVE ()?? 02/04/2023 10:10 GI PCR, Adenovirus F 40/41 NEGATIVE ()?? 02/04/2023 10:10 GI PCR, Astrovirus NEGATIVE ()?? 02/04/2023 10:10 GI PCR, Norovirus GI/GII NEGATIVE ()?? 02/04/2023 10:10 GI PCR, Rotavirus A NEGATIVE ()?? 02/04/2023 10:10 GI PCR, Sapovirus NEGATIVE ()?? 02/04/2023 10:10 ?? TOXICOLOGY/TDM Tacrolimus Level 4.6 ng/mL (Low)?? 02/10/2023 06:27 Vancomycin Level, Random 8.9 mg/L (Low)?? 02/09/2023 08:29 ?? URINE OTHER Est Creatinine Clearance 21.86 mL/min ()?? 02/11/2023 06:16 ? VIROLOGY COVID-19 by RT-PCR NEGATIVE ()?? 02/03/2023 13:45 ? Microbiology ?? Blood Culture?? Completed?? Source: Blood Body Site: ?? Collected Dt/Tm: 02/03/2023 11:55 Last Updated Dt/Tm: 02/03/2023 11:55 ?SPECIMEN DESCRIPTION : BLOOD ??NO SITESPECIAL REQUESTS : NONECULTURE : NO GROWTH 5 DAYS.REPORT STATUS : FINAL 02/08/2023 COVID-19 (Novel Coronavirus), Rapid PCR?? Completed?? Source: Nasal Body Site: Nose Collected Dt/Tm: 02/03/2023 13:38 Last Updated Dt/Tm: 02/03/2023 15:04 Blood Culture #2?? Completed?? Source: Blood Body Site: ?? Collected Dt/Tm: 02/03/2023 12:09 Last Updated Dt/Tm: 02/03/2023 13:44 ?SPECIMEN DESCRIPTION : BLOOD NO SITESPECIAL REQUESTS : CRITICAL VALUE CALLED AND VERIFIED BY READBACK FOR: ??GRAM POSITIVE COCCI TO [id number] AT 1259 02/04/23 AT [id number] BY 157.CULTURE : STAPHYLOCOCCUS HAEMOLYTICUS ??This isolate was identified using Maldi-TOF ? system SUSCEPTIBILITY TESTING NOT ROUTINELY PERFORMED ON THIS ISOLATE. ??Single isolates of Staph. species, not Staph. aureus, Micrococci, Bacil ?marcus species, Diphtheroids, Cutibacterium acnes (formerly ? Propionibacterium acnes) and Viridans Group Streptococci could be skin ? contaminants. Multiple isolates of these organisms are more likely to ? be significant. ?Staphylococcus species (not S.aureus) was identified by multiplex PCR.REPORT STATUS : FINAL 02/05/2023 Blood Culture #2?? Completed?? Source: Blood Body Site: ?? Collected Dt/Tm: 02/05/2023 07:00 Last Updated Dt/Tm: 02/04/2023 14:05 ?SPECIMEN DESCRIPTION : BLOOD RIGHTARMSPECIAL REQUESTS : NONECULTURE : NO GROWTH 5 DAYS.REPORT STATUS : FINAL 02/10/2023 C. difficile Rapid Toxin Assay?? Completed?? Source: Stool Body Site: ?? Collected Dt/Tm: 02/06/2023 18:27 Last Updated Dt/Tm: 02/06/2023 20:39 ? Vancomycin Level, Random:??8.9 mg/L??Low Vancomycin Level, Random: 13 mg/L ?? >35??minutes spent on discharge * Tabatha Kirkpatrick RN: PERFORM, SIGN, VERIFY Event Display: Case Management Discharge Plan Authored Date: [id number] Patient: TITO RICHARDSON Age: 57 years Sex: Male : 1965 Associated Diagnoses: None Author: Tabatha Kirkpatrick RN Discharge Plan Case Management Discharge Plan : Case Management Discharge Plan Data 02/11/2023 10:30 EDT Discharge Level of Care at Discharge Short-term Acute Inpatient Discharge Nursing Homes/Rehab Facilities [facility] Discharge Transportation Arranged [facility] [address] [place] [address] [id number] [phone] Discharge Arranged Transport Date/Time 02/11/2023 11:00 Mode of Transportation Arranged Chair Van Name of Agency #1 [facility] Service Categories #1 Occupational Therapy, Physical Therapy, Senior Living Service Comments #1 [facility] * Fausto ESPAÑA, Trish Lyons: PERFORM Event Display: Patient Education/Instruction Authored Date: [id number] Inpatient Adult Discharge Instructions [address] [address] Name: TITO RICHARDSON : 1965 Visit: 02/03/2023 13:36:00 Current Date: 02/11/2023 11:09 Account: [id number] Inpatient Adult Discharge Instructions We would like to thank you for allowing us to assist you with your healthcare needs. The following includes patient education materials and information regarding your injury/illness. Our entire staffstrives to provide an excellent experience for our patients and their families. PLEASE ENSURE YOU FOLLOW-UP PER THE INSTRUCTIONS BELOW! ?? YOUR OPINION IS IMPORTANT TO US! Please complete the survey you may receive by mail or email. Your feedback will be used to make improvements to the healthcare experiences of our patients and their families. Surveys are administered by [employer]. ?? If further treatment with your primary care physician or another doctor is recommended, it is important for you to keep the appointment. Call your primary care physician or return to the Emergency Department immediately if your condition worsens, fails to improve, or new symptoms develop. If you need to find a doctor, you can call [facility] [employer] for a referral at [phone] or toll free at [phone]) or log in to [email or web address].. ?? You can view and manage your care through the patient portal or by using a health care niraj of your choosing. [employer] is a website that allows you to securely view your medical information including your hospital discharge summary, office visit summaries, medications and follow-up visits. You can also request appointments, renew medications, and request access to your medical information using a health care niraj of your choosing, or just ask a question. You can enroll at [email or web address] or register during your next office visit. You have been discharged from [facility], Patient Care Unit: S3. If you have any questions regarding these instructions after you leave, please call us and we will be happy to assist you. [facility] Your Care Team Attending Physician Jennifer SEVERINO, Arcenio Consulting Providers Jordy SEVERINO, Issa Saini; Harley SEVERINO, Jonnathan; Marcelle Bhagat MD Discharging Providers Jennifer SEVERINO, Arcenio Reason for Admission arrives from home, lives by self, by EMS with c/o right leg pain. Pt had right BKA Satuday, recently discharged home but unable to fill prescriptions or get around/care for himself at home Your Diagnosis Surgical site infection Wound infection after surgery FTT (failure to thrive) in adult Blurred vision Fall at home Diarrhea Alkaline phosphatase elevation Tests Performed Below is a partial list of the tests performed during your hospitalization. You may have had other tests and procedures not included in this list. Please discuss all test results with your provider. 33013 ABG POC CARTRIDGE Alk Phos ALT AST B12 Vitamin Level BASE EXCESS POC CARTRIDGE Basic Metabolic Panel BUN C. difficile Rapid Toxin Assay CALCIUM IONIZED POC CART CBC w/ Differential COMPLETE BLOOD COUNT Comprehensive Metabolic Panel COVID-19 (Novel Coronavirus), Rapid PCR CREATININE ELECTROLYTES Ferritin Folic Acid Level GGT GI Profile, Stool, PCR Glucose Level GLUCOSE POC GLUCOSE POC CARTRIDGE H + H HEMATOCRIT POC CARTRIDGE HEMOGLOBIN POC CARTRIDGE Hepatitis A IgG Hepatitis B Core Ab IgM Hepatitis B Surface Antibody, Quant Hepatitis B Surface Antigen Hepatitis C Ab HOLD BLUE TUBE HOLD GEL TUBE HOLD CORLEY TUBE HOLD GREEN TUBE HOLD LAVENDER TUBE Iron + Iron Binding Capacity Lactate Level Lytes O2 PERCENT (POINT OF CARE) POTASSIUM POC CARTRIDGE SODIUM POC CARTRIDGE TACROLIMUS Troponin T, High Sensitivity Vancomycin Random CT Ext Lower W/ Contrast Right CT Head/Brain W/O Contrast US RUQ Primary Care Provider Zoraida Luo MD Advance Directive Health Care Proxy on File Yes - Health Care Proxy Discharge Vitals Temperature: 98 DegF Height: 160 cm Pulse Rate: 86 bpm Weight: 70.9 kg Respiratory Rate: 18 br/min Body Mass Index:??27.7 kg/m2??High Systolic Blood Pressure: 132 mm Hg Body surface area: 1.78 Diastolic Blood Pressure: 67 mm Hg ?? Oxygen Saturation: 100 % ?? Studies Pending All tests and labs ordered during this hospital stay have been completed unless listed below. Please discuss all pending results with your provider listed above in these instructions. ?? Hgb + Hct (H + H) Tacrolimus Level What to do next Instructions From Your Doctor Discharge Orders Scheduled Follow-Up Appointments Wednesday 3:30 PM EDT ?? With: Justina Newberry NP Where: [address] [place] [id number]- Status: Pending 2022 2:30 PM EDT ?? With: Chris Castle Where: [facility] [address] [place] [id number]- Status: Pending You Need to Schedule the Following Appointments Follow Up with??Zoraida Luo MD When:??Within 3-5 day: call to discuss follow up visit Where: [address] [place] [address]- Discharge Medications TITO RICHARDSON :1965 Visit Date:02/03/2023 Medications: Please continue your medications until treatment is completed or stopped by your provider. Medications not listed below should be discontinued. Discuss any questions related to medications with your provider. What How Much When Instructions Next Dose New Aspirin (aspirin 81 mg oral delayed release tablet) 81 Milligram Oral Daily 02/12 tomorrow morning New Ferrous Sulfate (ferrous sulfate 325 mg oral enteric coated tablet) 325 Milligram Oral Daily 02/12 tomorrow morning New Loperamide (loperamide 2 mg oral capsule) 2 Milligram Oral Every 3 hours as needed for Loose Stool as needed New Pantoprazole (pantoprazole 20 mg oral delayed release tablet) 20 Milligram Oral Daily 02/12 tomorrow morning Changed Insulin Glargine (Insulin Glargine Inj) 5 unit(s) Subcutaneous Injection Daily at Bedtime 02/11 tonight Changed PredniSONE (predniSONE 10 mg oral tablet) 1 tab(s) Oral Daily 02/12 tomorrow morning Changed Tramadol (traMADol 50 mg oral tablet) 1 tab(s) Oral Every 6 hours as needed for Pain , Moderate Duration: 1 Days TAKE ONE TABLET EVERY 6 HOURS NEEDED FOR PAIN ?? Printed Prescription as needed Unchanged Amlodipine (amLODIPine 5 mg oral tablet) 1 tab(s) Oral Daily TAKE ONE TABLET EVERY MORNING ?? 02/12 tomorrow morning Unchanged Atorvastatin (atorvastatin 10 mg oral tablet) 1 tab(s) Oral Daily TAKE ONE TABLET EVERY MORNING ?? 02/12 tomorrow morning Unchanged Calcitriol (calcitriol 0.5 mcg oral capsule) 1 capsule Oral Daily TAKE ONE CAPSULE EVERY MORNING ?? 02/12 tomorrow morning Unchanged Gabapentin (gabapentin 100 mg oral capsule) 1 capsule Oral Daily at Bedtime TAKE ONE CAPSULE BY MOUTH AT BEDTIME ?? 02/11 tonight Unchanged HydrOXYzine (hydrOXYzine hydrochloride 10 mg oral tablet) 1 tab(s) Oral Twice a day TAKE ONE TABLET BY MOUTH IN THE MORNING AND EVENING ?? 02/11 tonight Unchanged Insulin Lispro (insulin lispro 100 units/ mL injectable solution) 6 unit(s) Subcutaneous Injection 3 times a day before meals 02/11 at 12pm Unchanged Lidocaine Topical (lidocaine 5% topical film) 1 patch(es) Topically Daily as needed for Pain , Mild remove after 12 hours ?? as needed Unchanged Metoprolol (Metoprolol Succinate ER 25 mg oral tablet, extended release) 1 tab(s) Oral Daily TAKE ONE TABLET EVERY MORNING ?? 02/12 tomorrow morning Unchanged sodium bicarbonate (sodium bicarbonate 650 mg oral tablet) 1 tab(s) Oral 3 times a day TAKE ONE TABLET BY MOUTH THREE TIMES DAILY ?? 02/11 at 3pm Unchanged Tacrolimus (tacrolimus 1 mg oral capsule) 2 capsule Oral Every 12 hours 02/11 tonight Unchanged Trazodone (traZODone 50 mg oral tablet) 0.5 tab(s) Oral Daily at Bedtime TAKE 1/ 2 TABLET AT BEDTIME ?? 02/11 tonight Test Results Below is a partial list of the most recent Laboratory test results done prior to this discharge. You may have had other tests and procedures not included in this list. Please discuss all test resultswith your provider. Est Creatinine Clearance - 21.86 mL/min (02/11/2023) 88548 (02/05/2023) ? ?Surgical Pathology - Patient Name: TITO RICHARDSON
Lab
Patient : 1965 (Age: 57)
Collection Date: 02/05/2023
Accession Date: 02/05/2023
Sign Out Date: 02/08/2023

Tissue Source:
1:DUODENUM BIOPSIES
2:RIGHT COLON BIOPSIES
3:ASCENDINGCOLON POLYP
4:LEFT COLON BIOPSIES
5:RECTAL POLYP

Final Diagnosis:
1. Duodenum, biopsy:
- Duodenal mucosa with no pathologic change.
- Villous architecture is intact.

2. Right colon, biopsy:
- Colonic mucosa with no pathologic change.

3. Ascending colon, polypectomy:
- Tubular adenoma.

4. Left colon, biopsy:
- Colonic mucosa with no pathologic change.

5. Rectum, polypectomy:
- Hyperplastic polyp.

Primary Pathologist:MARIANA CHOU M.D.
electronically signed out by: MARIANA CHOU M.D. / [facility]

Clinical History:
Chronic diarrhea.
Diminutive colon polyps.

Gross Description:
Part 1. Labeled duodenum biopsies . Received in formalin are 3 mora-pink, granular mucosal fragments measuring up to 0.4 x 0.2 x 0.2cm which are entirely submitted in 1 cassette.
1-3 pieces, x 2. (MN)*
Part 2. Labeled right colon biopsies . Received in formalin are 3 mora,smooth mucosal fragments measuring up to 0.3 x 0.2 x 0.2 cm which are entirely submitted in 1 cassette.
1-3 pieces, x 2. (MN)*
Part 3. Labeled ascending colon polyp . Received in formalin is a 0.4 x 0.4 x 0.2 cm mora, smooth to granular mucosal fragment which is bisected and entirely submitted in 1 cassette.
1-2 pieces, x 2. & nbsp;(MN)*
Part 4. Labeled left colon biopsies . Received informalin are 2 mora, granular mucosal fragments measuring up to 0.4 x 0.3 x 0.3 cm which are entirely submitted in 1 cassette.
1-2 pieces, x 2. (MN)*
Part 5. Labeled "rectal polyp . Received in formalin is a 0.5 x 0.4 x 0.3 cm portion of mora,smooth mucosa which is bisected and entirely submitted in 1 cassette.
1-2 pieces, x 2. (MN)*

Phone #: [phone], On-Call Pathologist: [id number] ABG POC CARTRIDGE (02/06/2023) ???pH (POC) POC Cartridge - 7.53???pCO2 (POC) POC Cartridge - 19.4 mm Hg???pO2 (POC) POC Cartridge - 168 mm Hg???Estimated Bicarbonate (POC) POC Cart - 16.0 mmol/L???% O2 Sat Arterial (POC) POC Cartridge - 100 %???Specimen Type - Blood Gas - ARTERIAL Alk Phos (02/04/2023) ???Alkaline Phosphatase - 652 units/L ALT (02/07/2023) ???ALT (SGPT) - 13 units/L AST (02/07/2023) ???AST (SGOT) - 15 units/L B12 Vitamin Level (02/05/2023) ???Vitamin B12 Level - 1427 pg/mL BASE EXCESS POC CARTRIDGE (02/06/2023) ???Base Excess (POC) POC Cartridge - NEGATIVE 7 Basic Metabolic Panel (02/11/2023) ???Sodium - 138 mmol/L???Potassium - 4.5 mmol/L???Chloride - 106 mmol/L???Bicarbonate Level - 22 mmol/L???Anion Gap - 10???Glucose Level - 144 mg/dL???BUN - 17 mg/dL???Creatinine-Blood - 3.0 mg/dL???Estimated GFR Creatinine - 24 ML/MIN/1.73 M2???Calcium - 7.7 mg/dL BUN (02/10/2023) ???BUN - 17 mg/dL C. difficile Rapid Toxin Assay (02/06/2023) ???C.difficile Toxin - Negative. C.Difficile bacterial antigen and toxin not detected. A CALCIUM IONIZED POC CART (02/06/2023) ???Ionized Calcium (POC) POC Cartridge - 1.15 mmol/L CBC w/ Differential (02/11/2023) ???WBC - 8.0 k/mm3???RBC - 2.85 m/mm3???Hgb - 7.9 Gm/dL???Hct - 24.8 %???MCV - 87.0 femtoliters???MCH - 27.7 pg???MCHC - 31.9 g/dL???Platelet Count - 538 k/mm3???RDW-SD - 46.9 femtoliters???MPV - 9.0femtoliters???Nucleated RBC (Automated) - 0.0 #/100 WBC'S???Abs. NRBC - 0.0 k/mm3???Abs. Neut - 5.3 k/mm3???Abs. Lymph - 1.7 k/mm3???Abs. Rhea - 0.7 k/mm3???Abs. Eo - 0.2 k/mm3???Abs. Baso - 0.1 k/mm3???Neut % - 65.7 %???Lymph % - 21.1 %???Rhea % - 8.7 %???Eos % - 2.4 %???Baso % - 1.5 %???Imm Gran - 0.6 %???Abs. Imm Gran - 0.1 k/mm3 COMPLETE BLOOD COUNT (02/10/2023) ???WBC - 9.6 k/mm3???RBC - 2.97 m/mm3???Hgb - 8.3 Gm/dL???Hct - 25.6 %???MCV - 86.2 femtoliters???MCH - 27.9 pg???MCHC - 32.4 g/dL???Platelet Count - 579 k/mm3???RDW-SD - 46.8 femtoliters???MPV - 9.1femtoliters???Nucleated RBC (Automated) - 0.0 #/100 WBC'S???Abs. NRBC - 0.0 k/mm3 Comprehensive Metabolic Panel (02/03/2023) ???Sodium - 131 mmol/L???Potassium - 4.6 mmol/L???Chloride - 96 mmol/L???Bicarbonate Level - 24 mmol/L???Anion Gap - 11???Glucose Level - 297 mg/dL???BUN - 14 mg/dL???Creatinine-Blood - 2.3 mg/dL???Estimated GFR Creatinine - 33 ML/MIN/1.73 M2???Calcium - 7.8 mg/dL???Protein, Total - 6.0 Gm/dL???Albumin - 2.3 Gm/dL???AG Ratio - 0.6???Alkaline Phosphatase - 747 units/L???AST (SGOT) - 21 units/L???ALT (SGPT) - 13 units/L???Bilirubin, Total - 0.6 mg/dL COVID-19 (Novel Coronavirus), Rapid PCR (02/03/2023) ???COVID-19 by RT-PCR - NEGATIVE CREATININE (02/10/2023) ???Creatinine-Blood - 3.3 mg/dL???Estimated GFR Creatinine - 21 ML/MIN/1.73 M2 ELECTROLYTES (02/10/2023) ???Sodium - 139 mmol/L???Potassium - 4.5 mmol/L???Chloride - 103 mmol/L???Bicarbonate Level - 24 mmol/L???Anion Gap - 12 Ferritin (02/05/2023) ???Ferritin Level - 474 ng/mL Folic Acid Level (02/05/2023) ???Folic Acid Level - 14.4 ng/mL GGT (02/04/2023) ???GGTP - 500 units/L GI Profile, Stool, PCR (02/04/2023) ???GI PCR, Campylobacter - NEGATIVE???GI PCR, Plesiomonas shigelloides - NEGATIVE???GI PCR, Salmonella - NEGATIVE???GI PCR, Vibrio - NEGATIVE???GI PCR, Vibrio cholerae - NEGATIVE???GI PCR, Yersinia enterocolitica - NEGATIVE???GI PCR, Enteroaggregative E coli - NEGATIVE???GI PCR, Enteropathogenic E coli - NEGATIVE???GI PCR, Enterotoxigenic E coli - NEGATIVE???GI PCR, Smnwx-cikpu-hzzdgundp E coli -NEGATIVE???GI PCR, Shigella/Enteroinvasive E coli - NEGATIVE???GI PCR, Cryptosporidium - NEGATIVE???GI PCR, Cyclospora cayetanensis - NEGATIVE???GI PCR, Entamoeba histolytica - NEGATIVE???GI PCR, Giardia lamblia - NEGATIVE???GI PCR, Adenovirus F 40/41 - NEGATIVE???GI PCR, Astrovirus - NEGATIVE???GIPCR, Norovirus GI/GII - NEGATIVE???GI PCR, Rotavirus A - NEGATIVE???GI PCR, Sapovirus - NEGATIVE Glucose Level (02/04/2023) ???Glucose Level - 152 mg/dL GLUCOSE POC (02/11/2023) ???Glucose, POC - 117 mg/dL GLUCOSE POC CARTRIDGE (02/06/2023) ???Glucose (POC) POC Cartridge - 165 H + H (02/07/2023) ???Hgb - 9.2 Gm/dL???Hct - 29.4 % HEMATOCRIT POC CARTRIDGE (02/06/2023) ???Hematocrit (POC) POC Cartridge - 29 % HEMOGLOBIN POC CARTRIDGE (02/06/2023) ???Hemoglobin (POC) POC Cartridge - 9.9 Gm/dL Hepatitis A IgG (02/04/2023) ???Anti-HAV IgG - POSITIVE Hepatitis B Core Ab IgM (02/05/2023) ???Hepatitis B Core Ab, IgM - NEGATIVE Hepatitis B Surface Antibody, Quant (02/05/2023) ???Anti-HBS Quant - 14.3 mIU/mL Hepatitis B Surface Antigen (02/05/2023) ???Hepatitis B Surface Antigen - NEGATIVE Hepatitis C Ab (02/05/2023) ???Hepatitis C Ab - Non Reactive HOLD BLUE TUBE (02/06/2023) ???Hold Blue Top - SPECIMEN DISCARDED AFTER 4 HOURS. HOLD GEL TUBE (02/04/2023) ???Hold Gel Top - SPECIMEN DISCARDED AFTER 1 WEEK HOLD CORLEY TUBE (02/06/2023) ???Hold Corley Top - SPECIMEN DISCARDED AFTER 1 WEEK HOLD GREEN TUBE (02/06/2023) ???Hold Green Top - SPECIMEN DISCARDED AFTER 1 WEEK HOLD LAVENDER TUBE (02/09/2023) ???Hold Lavender Top - SPECIMEN DISCARDED AFTER 24 HOURS. Iron + Iron Binding Capacity (02/05/2023) ???Iron Level - 17 mcg/dL???Iron Binding Capacity, Unsaturated - 125 mcg/dL???Iron Binding Capacity, Estimated Total - 142 mcg/dL???% Iron Saturation - 12 % Lactate Level (02/03/2023) ???Lactate - 1.1 mmol/L Lytes (02/06/2023) ???Sodium - 135 mmol/L???Potassium - 4.6 mmol/L???Chloride - 102 mmol/L???Bicarbonate Level - 17 mmol/L???Anion Gap - 16 O2 PERCENT (POINT OF CARE) (02/06/2023) ???FIO2 (POC) POC Cartridge - 40 % POTASSIUM POC CARTRIDGE (02/06/2023) ???Potassium (POC) POC Cartridge - 3.8 mmol/L SODIUM POC CARTRIDGE (02/06/2023) ???Sodium (POC) POC Cartridge - 135 mmol/L TACROLIMUS (02/11/2023) ???Tacrolimus Level - 5.0 ng/mL Troponin T, High Sensitivity (02/04/2023) ???High Sensitivity Troponin (HSTnT) - 48 ng/L Vancomycin Random (02/09/2023) ???Vancomycin Level, Random - 8.9 mg/L Allergies (NKA means No Known Allergies) morphine Problems No qualifying data available Education Materials Below is the list of Educational Leaflet Providered with your Discharge Instructions. Valuables and Belongings I fully understand and agree that [facility] accepts no responsibility for all my personal [...] to send valuables and belongings home. ?? No Valuables/Belongings: No valuables/belongings present Review of Valuable and Belonging List: With patient, With witness Date for Pt to Sign Valuables/Belongings: 02/11/23 10:53:00 ?? Other Discharge Information ?? Wound Assessment?? Wound Assessment?? Wound Location I: Leg, right lower Wound Type I: Surgical ?? Case Management Discharge Plan?? Discharge Plan?? Discharge Agency Information?? Discharge Level of Care at Discharge: Short-term Acute Inpatient Name of Agency #1: [facility] Discharge Transportation Arranged: [facility] [address] [facility] [id number] [phone] Service Categories #1: Occupational Therapy, Physical Therapy, Senior Living Mode of Transportation Arranged: Chair Van Service Comments #1: [facility] Discharge Arranged Transport Date/Time: 02/11/23 11:00:00 ?? Discharge Nursing Homes/Rehab Facilities: [facility] ? Pulmonary Rehab Status?? Pulmonary Rehab Discharge Status?? [...] are strongly encouraged to quit. Please call [facility] [employer] at [phone] or [phone] [phone]) or log in to [email or web address] for referrals to smoking cessation programs. ?? 826 Suicide & Crisis Lifeline is available 11/01 if you or someone you know needs to find a reason to keep living. By calling 832 you'll be connected to a skilled, trained counselor at a crisis center in your area. INPATIENT DISCHARGE INSTRUCTIONS SIGNATURE PAGE TITO RICHARDSON Location:[facility] Registration Date and Time:02/03/2023 13:36 EDT Primary Care Physician: Zoraida Luo MD, Attending Physician: Jennifer SEVERINO, rosa, I TITO RICHARDSON, have received the above patient education materials/instructions and have verbalized understanding. If ambulance or transport services are being used I further acknowledge being given a choice of service. ?? If you need to contact me, please call me at this number: . Patient/Decision Unit Rn Name: Patient/Decision Unit Rn Signature: Relationship to Patient: Witness Name/Signature: Date: Patient Care team information Care Team Personnel Name: Drake SEVERINO, Goyo Fabian Position: [facility] Renal MD Member Role: Lifetime Consulting Physician Address: Address: [address] [place] [address], [address] Name: Maria Dolores White RN Position: [facility] RN Member Role: Primary Care Nurse Name: Claudine Judge RN Position: [facility] RN Member Role: Primary Care Nurse Name: Misty Butt RN Position: [facility] RN Member Role: Primary Care Nurse Name: Cher Nichols Position: [facility] RN Member Role: Primary Care Nurse Name: Jodi Solorzano RN Position: [facility] RN Member Role: Primary Care Nurse Name: Erum Fuentes Position: [facility] RN Member Role: Primary Care Nurse Name: Donna May RN Position: [facility] RN Member Role: Primary Care Nurse Name: Juana Palafox RN Position: [facility] RN Member Role: Primary Care Nurse Name: Anthony Magdaleno RN Position: [facility] RN Member Role: Primary Care Nurse Name: Chung Fernandez RN Position: [facility] RN Member Role: Primary Care Nurse Name: Hansa Carmona Position: [facility] RN Member Role: Primary Care Nurse Name: Donna Hatfield LPN Position: [facility] RN Member Role: Primary Care Nurse Name: Farzaneh Palacios RN Position: [facility] RN Member Role: Primary Care Nurse Name: Radha Nye RN Position: [facility] RN Member Role: Primary Care Nurse Name: Shira Mann RN Position: [facility] RN Member Role: Primary Care Nurse Name: Jimy Gaytan RN Position: [facility] RN Member Role: Primary Care Nurse Name: Deirdre Lopez RN Position: [facility] RN Member Role: Primary Care Nurse Name: Rosario Alcantara RN Position: [facility] RN Member Role: Primary Care Nurse Name: Robert Braden RN Position: [facility] RN Member Role: Primary Care Nurse Name: Jess Chong RN Position: [facility] RN Member Role: Primary Care Nurse Name: Jacoby Sood MD Position: [facility] Renal MD Member Role: Lifetime Consulting Physician Address: Address: [address] [place] [address] [address] [facility] [place] [address]- Name: Linda Benson LPN Position: [facility] RN Member Role: Primary Care Nurse Name: Jocelyn Modi RN Position: [facility] RN Member Role: Primary Care Nurse Name: Erma Lira RN Position: [facility] RN Member Role: Primary Care Nurse Name: Sherif Amaya MD Position: [facility] Renal MD Member Role: Lifetime Consulting Physician Address: Address: [address] [place] [address] [facility] [place] [address]- Name: Courtney Freed RN Position: [facility] RN Member Role: Primary Care Nurse Name: Kaylan Caraballo RN Position: [facility] RN Member Role: Primary Care Nurse Name: Zoraida Luo MD Position: Reference Physician Member Role: PCP Address: Address: [address] [place] [id number]- Name: Ledy Franco RN Position: [facility] RN Member Role: Primary Care Nurse Name: Rosina Fernandez RN Position: [facility] RN Member Role: Primary Care Nurse Name: Jeannie Mccarty RN Position: [facility] RN Member Role: Primary Care Nurse Name: Fadia Santacruz Position: [facility] RN Member Role: Primary Care Nurse Name: Faina GUNTER Attending Position: [facility] ED Medicine MD Name: Symone Marina RN Position: [facility] ED RN W/OE and Tasks Member Role: Patient Care Provider Name: Anh Gaona Position: [facility] ED TA [facility] Member Role: Patient Care Provider Name: Sara Duarte Position: [facility] ED OA Charge Member Role: ED Associate Name: Steve Santo Position: [facility] ED TA [facility] Member Role: Medical Communication Specialist Care Team Related Persons Name: AUTUMN CHUA Address: home [address] [place] [address] Name: MICHELA BASILIO Address: home [address] [place] [address]
--- OUTSIDE RECORDS SUMMARY | 2023-04-04 19:46 | XMS_ITS | Continuity of Care Document ---
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 Name Role Phone Valerio SEVERINO, Zoraida Primary Care Physician Encounter [facility] Date(s): 03/04/23 - 03/11/[address] [id number] Discharge Disposition: A-D/C Home Attending Physician: Kvng Powell MD Admitting Physician: Katarzyna Watkins MD Referring Physician: Not on Staff, Referring [...] Sohail rded influenza virus vaccine, inactivated 04/16/14 Sohial rded influenza virus vaccine, inactivated 03/12/12 Sohail [...] 1Early/Late Reason: Med Not Available 2Result Comment: [id number], NOV 28 3Early/Late Reason: Med Not Available [...] opioid drug. Start Date: 12/31/21 Status: Ordered amLODIPine 5 mg oral tablet 5 mg, Tablet, By Mouth, 03/11/23 9:00:00 EDT Start Date: 03/11/23 Stop Date: 03/11/23 Status: Completed amLODIPine 5 mg oral tablet 1 tablet [...] EVERY MORNING Start Date: 01/11/23 Status: Ordered collagenase topical 250 u/gm ointment See Instructions, apply topically to R BKA BID, # 90 Gm, 0 Refills, Maintenance, 03/11/23 12:50:00 EDT, Ointment, [facility], Partial fill upon patient request if the prescription is for a schedule II opioid drug., apply topically... Start Date: 03/11/23 Status: Ordered ferrous sulfate 325 mg oral [...] AND EVENING Start Date: 01/11/23 Status: Ordered insulin glargine 100 u/ml subcutaneous solution = 10 units, Subcutaneous Injection, Daily at bedtime, # 15 mL, 0 Refills, Maintenance, 03/11/23 12:54:00 EDT, Injection, [facility], Partial fill upon patient request if the prescription is for a schedule II opioid drug., 160, cm,... Start Date: 03/11/23 Status: Ordered insulin lispro 100 units/mL injectable [...] opioid drug. Start Date: 02/11/23 Status: Ordered metoprolol 25 mg oral tablet, extended release 25 mg, XL Tablet, By Mouth, 03/11/23 9:00:00 EDT Start Date: 03/11/23 Stop Date: 03/11/23 Status: Completed Metoprolol Succinate ER 25 mg oral tablet, extended release 1 tablet = 25 mg, By Mouth, Daily, TAKE ONE TABLET EVERY MORNING Start Date: 01/11/23 Status: Ordered pantoprazole 20 mg oral delayed release tablet = 20 mg, By Mouth, Daily, 0 Refills, Maintenance, 02/11/23 9:11:00 EDT, EC Tablet Start Date: 02/11/23 Status: Ordered sodium bicarbonate 650 mg oral tablet 1 tablet = 650 mg, By Mouth, 3 times a day, TAKE ONE TABLET BY MOUTH THREE TIMES DAILY Start Date: 01/11/23 Status: Ordered tacrolimus 1 mg oral capsule 2 capsule = 2 mg, By Mouth, Every 12 hours Start Date: 01/11/23 Status: Ordered traZODone 50 mg oral tablet 25 mg, 0.5, tablet, By Mouth, Daily at bedtime, TAKE 1/2 TABLET AT BEDTIME Start Date: 01/11/23 Status: Ordered Problem List Condition Confirmation Course Effective Dates Status Health Status Informant DIABETES MELLITUS 1 Confirmed 1974 Active End stage renal disease Confirmed Active Acid reflux Confirmed Active -donor kidney transplant 2 Confirmed 11/04/13 Active HYPERTENSION Confirmed Active Diabetic foot infection Confirmed Active Secondary hyperparathyroidism of renal origin Confirmed Active 1Type II 2campath induction Results Orders for Microbiology Reports Name Date Blood Culture 03/04/23 Blood Culture #2 03/04/23 Microbiology Reports TEST:Blood Culture, Second Order STATUS:Auth (Verified) BODY SITE: SOURCE:Blood COLLECTED DATE/TIME:03/04/23 9:20 AM Blood Culture, Second Order SPECIMEN DESCRIPTION : BLOOD R WRIST SPECIAL REQUESTS : NONE CULTURE : NO GROWTH 5 DAYS. REPORT STATUS : FINAL 03/09/2023 TEST:Blood Culture STATUS:Auth (Verified) BODY SITE: SOURCE:Blood COLLECTED DATE/TIME:03/04/23 7:24 AM Blood Culture SPECIMEN DESCRIPTION : BLOOD RHAND SPECIAL REQUESTS : NONE CULTURE : NO GROWTH 5 DAYS. REPORT STATUS : FINAL 03/09/2023 Radiology Reports * Exam Date Time Procedure Performing Provider Status 03/04/23 2:38 PM US Doppler Ext Lower Venous Left Any Cox; Auth (Verified) Notes: (US Doppler Ext Lower Venous Left) Reason For Exam: Pain in limb;Other: RESULT: US Doppler Ext Lower Venous Left US Doppler Ext Lower Venous Left Reason: Pain in limb; Clinical Question(s): Thrombus COMPARISON: None IMAGING TECHNIQUE: Ultrasound of the veins from the groin through the calf was performed using grayscale, color, and spectral Doppler ultrasound assessing for complete compressibility and normal flowcharacteristics. FINDINGS: Common femoral vein: Patent. No thrombosis. Femoral vein: Patent. No thrombosis. Popliteal vein: Patent. No thrombosis. Gastrocnemius veins: The visualized portions are patent without evidence of thrombosis. Peroneal veins: The visualized portions are patent without evidence of thrombosis. Posterior tibial veins: The visualized portions are patent without evidence of thrombosis. Contralateral common femoral vein: Patent. No thrombosis. OTHER FINDINGS: Atherosclerotic calcification noted. Diffuse calf edema. IMPRESSION: No evidence of deep venous thrombosis. WSN: [id number] Ordering Physician: Steve Chopra Dictated By: Odin Montalvo MD Dictated Date/Time: 03/04/23 2:41 pm Reviewed By: Odin Montalvo MD Signed By: Odin Montalvo MD Signed Date/Time: 03/04/23 2:41 pm Transcribed By: MADYSON Transcribed Date/Time: 03/04/23 2:40 pm * Exam Date Time Procedure Performing Provider Status 03/04/23 1:45 PM MRI Lumbar Spine W+W/O Contrast Eleanor Castro; Lilli (Verified) Notes: (MRI Lumbar Spine W+W/O Contrast) Reason For Exam: Epidural abscess;Other: RESULT: MRI Lumbar Spine W+W/O Contrast MRI Lumbar Spine W+W/O Contrast INDICATION: Reason: Other:; Epidural abscess; Clinical Question(s): Epidural Empyema; Special Instructions: obtain within six hours R BKA; Order Comment: Please see Reference Text for complete list of contraindications Epidural Empyema TECHNIQUE: MRI of the lumbar spine was performed with and without intravenous contrast utilizing sagittal T1, sagittal T2, sagittal STIR, axial T1, and fat- saturated axial T2-weighted sequences, and post-contrast sagittal T1 and fat- saturated axial T1-weighted sequences. 15 mL of Clariscan was administered intravenously. COMPARISON: CT lumbar spine 02/14/2015. FINDINGS: LOCALIZER: Localizer images include sagittal T2 weighted imaging through the entire spine. Cervicaland thoracic vertebral body heights and morphology are preserved on the localizer sequence, with noevidence of bony destruction or fluid collection. There are scattered loss of disc space, greatest in the cervical spine, with multilevel disc bulges between C3 and C6 resulting in at least moderate to severe central stenosis, roughly similar to prior CT neck of 05/05/2022 allowing for difference in technique. No high-grade stenosis is seen in the thoracic spine. NUMBERING: There is a normal complement of cervical, thoracic, and lumbar vertebral bodies on entire spine localizer sequence. A rudimentary disc space is present at S1-S2. ALIGNMENT, VERTEBRAE, MARROW, AND DISCS: Alignment is normal. Vertebral body heights are preserved.Scattered Schmorl's nodes are present in the lumbar spine, some of which demonstrate trace adjacentedema. Multilevel mild Modic 2 changes are present at nearly all levels between T10 and S1. Marrow signal is otherwise preserved. There is no suspicious marrow signal abnormality. There is diffuse desiccation of intervertebral discs, with mild loss of disc is greatest at L1-2. No fluid signal or abnormal enhancement is seen within the disc spaces. CONUS: The conus is normal in signal and contour, with normal level of termination at L1-L2. There is no abnormal intradural or epidural enhancement. There is no epidural fluid collection. PARASPINAL TISSUES: There is nonspecific edema in the subcutaneous fat of the lower back. No paraspinal edema, enhancement, or fluid collection is seen. DETAILED FINDINGS BY LEVEL: T11-T12: No significant canal stenosis or neural foraminal narrowing. T12-L1: No significant canal stenosis or neural foraminal narrowing. L1-L2: Minimal broad-based disc. No significant central stenosis or neural foraminal narrowing. L2-L3: Mild broad-based disc bulge. No significant central stenosis. Minimal bilateral neural foraminal narrowing. L3-L4: Mild broad-based disc bulge. No significant central stenosis. Minimal bilateral neural foraminal narrowing. L4-L5: Mild broad-based disc bulge with shallow left paracentral protrusion. Mild effacement of thesubarticular recess with contact but no compression of traversing left L5 nerve root. Otherwise no significant central stenosis. Mild right and moderate left neural foraminal narrowing. L5-S1: Broad-based disc bulge with bilateral facet hypertrophy. No significant central stenosis. Severe right and mild to moderate left neural foraminal narrowing, with compression of the exiting right L5 nerve.. IMPRESSION: 1. No evidence of epidural abscess/phlegmon, discitis/osteomyelitis, or other signs of infection inthe lumbar spine. 2. Scattered degenerative changes of the lumbar spine as detailed above. No high-grade central stenosis. Neural foraminal narrowing is greatest on the right at L5-S1 (severe), with compression of theexiting right L5 nerve root. 3. Localizer images of the cervical and thoracic spine demonstrate no areas of bony destruction, but degenerative disc bulges at C3-4, C4-5, and C5-6 result in at least moderate to severe central stenosis at these levels, roughly similar to prior CT neck. WSN: [id number] Ordering Physician: Steve Chopra Dictated By: Mirna Pratt MD Dictated Date/Time: 03/04/23 2:13 pm Reviewed By: Mirna Pratt MD Signed By: Mirna Pratt MD Signed Date/Time: 03/04/23 2:13 pm Transcribed By: MADYSON Transcribed Date/Time: 03/04/23 1:58 pm * Exam Date Time Procedure Performing Provider Status 03/04/23 10:33 AM Knee 1 or 2 Views Right Bein , Miri; Auth (Verified) Notes: (Knee 1 or 2 Views Right) Reason For Exam: Infection RESULT: Knee 1 or 2 Views Right Knee 2 Views Right Hx of Present Illness: Pt from home with lower back pain and infection in right bka amputation; Reason: Infection; Clinical Question(s): Osteomyelitis; BKA COMPARISON: None. FINDINGS: Status post [id number] amputation. The tibial and fibular stumps are unremarkable. The knee joint is intact. No joint effusion. The distal femur and patella are unremarkable. Vascular calcifications. IMPRESSION: No acute bony abnormality. I have personally reviewed the images and I agree with this report. WSN: [id number] Ordering Physician: Steve Chopra Dictated By: Cody Cage MD Dictated Date/Time: 03/04/23 10:37 a Reviewed By: Franco Gil MD, V Signed By: Franco Gil MD, V Signed Date/Time: 03/04/23 10:42 am Transcribed By: MADYSON Transcribed Date/Time: 03/04/23 10:35 am Vital Signs Most recent to oldest [Reference Range]: 1 2 3 Height 160 cm (03/11/23 2:01 PM) 160 cm (03/10/23 3:52 AM) 160 cm (03/09/23 11:19 PM) Weight 69.1 kg (03/08/23 10:15 AM) 69.1 kg (03/05/23 3:10 PM) 74 kg (03/05/23 3:07 AM) Oxygen Saturation [94-100 %] 99 % (03/11/23 2:01 PM) 99 % (03/11/23 11:00 AM) 100 % (03/11/23 7:00 AM) Pulse Rate [55-90 bpm] 85 bpm (03/11/23 2:01 PM) 87 bpm (03/11/23 11:00 AM) 73 bpm (03/11/23 9:29 AM) Body Mass Index [18.5-24.99 kg/m2] 26.99 kg/m2 *H* (03/08/23 10:15 AM) 26.99 kg/m2 *H* (03/05/23 3:10 PM) 28.91 kg/m2 *H* (03/05/23 3:07 AM) Blood Pressure [90-138/55-84 mm Hg] 124/80mm Hg (03/11/23 2:01 PM) 139/89mm Hg *H* (03/11/23 11:00 AM) 151/96mm Hg *H* (03/11/23 9:28 AM) Respiratory Rate [16-30 br/min] 18 br/min (03/11/23 2:01 PM) 20 br/min (03/11/23 11:00 AM) 18 br/min (03/11/23 7:00 AM) Temperature [96.8-100.4 DegF] 97.7 DegF (03/11/23 2:01 PM) 97.8 DegF (03/11/23 11:00 AM) 98.1 DegF (03/11/23 7:00 AM) Liters per Minute 6 L/min (03/08/23 12:00 PM) Mode of Delivery (Oxygen) Room air (03/11/23 2:01 PM) Room air (03/11/23 11:00 AM) Room air (03/11/23 7:00 AM) Blood pressure sites Arm, right (03/11/23 2:01 PM) Arm, right (03/11/23 11:00 AM) Arm, right (03/11/23 7:00 AM) Temperature Route Oral (03/11/23 2:01 PM) Temporal (03/11/23 11:00 AM) Oral (03/11/23 7:00 AM) Dry Weight 75 kg (03/05/23 3:10 PM) 74 kg (03/05/23 3:07 AM) 74 kg (03/04/23 11:38 AM) Weight Obtained Via Bed scale (03/05/23 3:10 PM) Patient/family stated (03/03/23 4:29 PM) Dry Weight Obtained Via Patient/family stated (03/03/23 4:29 PM) Social History Social History Type Response Smoking Status Never (less than 100 in lifetime) entered on: 03/05/23 Sex History and physical note * Ramírez Guillen DO S: MODIFY, MODIFY, MODIFY, MODIFY, MODIFY, MODIFY, MODIFY, MODIFY, MODIFY, PERFORM Event Display: History and Physical Hospital Authored Date: Patient: ??TITO RICHARDSON ? Age:??57 Years?Sex:??Male?:??1965?? Chief Complaint/Reason for Consultation Drainage and bad odor coming from recent right BKA site History of Present Illness This is a 57-year-old primarily Brazilian-speaking??male with past medical history including??diabetes mellitus type 2, hypertension,??end-stage renal disease with history of?? donor kidney transplant in 2015,??chronic kidney disease,??GERD, and hyperlipidemia,??who currently presents to the [facility]??with complaint of??malodorous drainage from his right??BKA site.?? The patient underwent right guillotine amputation on January 23, with completion right below the knee amputation on January 25.?? He had refused to go to rehab when discharged from the hospital after surgery, but then had a fall at home resulting in drainage from his amputation site.?? He was subsequently discharged to rehab on February 11, and states that he went back home about a week ago.?? Earlier this week on March 01, the patient was seen in the vascular surgery office and was noted to have an open wound at his stump site.?? He was ordered Keflex though it appears he never initiated this.?? In the ED, the patient had lab work done that showed a white count of 8.6.?? Other labs were fairly unremarkable except for an elevated sed rate of 53, with a CRP of less than 0.3.?? Patient's creatinine was noted to be 2.5 and it appears that his baseline is around 2.0-2.5.?? He did undergo a right knee x-ray that showed no acute abnormality.?? The patient also complained of back pain which was new onset.?? Given that he reported fevers and chills over the last 2 days, an MRI of the lumbar spine was obtained and this showed no evidence of epidural abscess/phlegmon/discitis/osteomyelitis.?? There were some degenerative changes noted of the lumbar spine with severe neuroforaminal narrowing on the right at L5-S1 with compression of the right L5 nerve root.?? There is also note of moderate to severe central stenosis at C3-C6.?? The patient also reported noting some increased swelling of his left legs, so he underwent a Doppler ultrasound of the left side that was negative for DVT.?? He was initiated on vancomycin and Zosyn in the ED, and is being admitted for further management. Review of Systems A complete review of systems was obtained and noted to be negative except as stated above in the HPI. Objective Measurements?? Height: 160 cm (03/04/23) Weight: 74 kg (03/04/23) Dry Weight: 74 kg (03/04/23) Body Mass Index:??28.91 kg/m2??High (03/04/23) ? Vital Signs?? Temperature: 98.9 DegF (03/04/23 21:22:00) Temperature Route: Oral (03/04/23 21:22:00) Pulse Rate: 89 bpm (03/05/23 00:19:00) Respiratory Rate: 16 br/min (03/05/23 00:19:00) Systolic Blood Pressure: 132 mm Hg (03/05/23 00:19:00) Diastolic Blood Pressure: 77 mm Hg (03/05/23 00:19:00) Blood pressure sites: Arm, right (03/04/23 08:30:00) Mean Arterial Pressure: 115 mm Hg (03/04/23 11:38:00) Pulse Pressure: 55 mm Hg (03/05/23 00:19:00) Oxygen Saturation: 97 % (03/05/23 00:19:00) Mode of Delivery (Oxygen): Room air (03/05/23 00:19:00) Early Warning Score: 0 (03/05/23 00:20:20) ? Physical Exam General: Alert, in no acute cardiopulmonary distress. Mental Status: Oriented to person, place and time. Normal affect. Head: Normocephalic. Eyes: Pupils are equal, round and reactive to light. Extraocular muscles intact. Ear, Nose and Throat: Oropharynx clear, mucous membranes moist. Ears and nose without masses, lesions or deformities. Trachea midline. Neck: Supple, Full range of motion. Respiratory: Clear to auscultation and percussion. No wheezing, rales or rhonchi. Cardiovascular: Heart sounds normal. Regular rate and rhythm, no murmurs, rubs or gallops. Gastrointestinal: Abdomen soft, non-tender, non-distended. Normal bowel sounds. No pulsatile mass. No hepatosplenomegaly. Neurologic: Cranial nerves II-XII grossly intact. No focal neurological deficits. Moves all extremities spontaneously. Sensation intact bilaterally. Skin: No rashes or lesions. No petechiae or purpura. No edema. Musculoskeletal: No cyanosis or clubbing. No gross deformities. Normal range of motion. Assessment/Plan This is a 57-year-old??primarily Brazilian-speaking male with past medical history as noted above, who currently presents to the hospital??after he noted??drainage and malodor coming from his??right BKA wound site. ??He is now admitted for further management. ?? Right BKA infection ??(T87.43) This patient will be admitted to an inpatient??medical bed. ??He presents with??drainage and malodor from his right BKA site.?? He is noted to have an open wound in this area.?? He has been assessed by vascular surgery with recommendation for daily wound care.?? At present, we will continue him empi rically on vancomycin and Zosyn.?? As per vascular surgery recommendations, he should have wet-to-dry dressing change daily and as needed with RAIADNE wrap.?? Vascular team will continue to follow the patient.?? Blood cultures were obtained in the ED and can be followed for any growth. ?? Hypoglycemia ??(E16.2) Diabetes mellitus type 2 Patient noted to have some hypoglycemia here,??likely in the setting of no oral intake when he initially came here.?? We will??maintain him on hypoglycemic precautions. ??We will follow his POC's closely until they stabilize. ?? Back pain ??(M54.9) Patient with complaint of low back pain,??prompting MRI of the??lumbar spine??given that he also complained of fevers and??chills in the last couple of days.?? MRI shows some chronic degenerative changes but no evidence of infection. ?? Hypertension. Patient will continue on his home amlodipine??and metoprolol. ?? History of renal transplant with chronic kidney disease. Metabolic acidosis Continue patient on tacrolimus as well as??prednisone.?? His baseline kidney function appears to bearound 2.0-2.5, we will continue to monitor??while he is here.?? He is on sodium bicarbonate tablets which will be continued at his home dose. ?? Hyperlipidemia. Continue patient on statin treatment. ?? CODE STATUS. ??Patient is a full code. ?? DVT prophylaxis.?? We will use subcu heparin and encourage early mobilization. ?? Patient seen on??March 04, 2023. Total time spent with patient and in coordination of care: including reviewing the chart/medical records, speaking with the patient, formulating and discussing the treatment plan, and documenting thefindings and encounter: ??70 + min ? Histories Allergies Allergies ?(Active and Proposed Allergies Only) morphine? (Severity: Unknown severity, Onset: Unknown) ?Reactions: itching Dilaudid? (Severity: Unknown severity, Onset: Unknown) ?Reactions: anaphylaxis Benadryl? (Severity: Unknown severity, Onset: Unknown) ?Reactions: itching ?Comments: itch increased ? Past Medical History/Problem List Active Problems??(14) Acid reflux CKD (chronic kidney disease) -donor kidney transplant DIABETES MELLITUS Diabetes mellitus Diabetic foot infection End stage renal disease GERD (gastroesophageal reflux disease) History of parathyroidectomy Hyperlipidemia HYPERTENSION Hypertension Peripheral neuropathy Secondary hyperparathyroidism of renal origin ? Past Surgical History Right fifth toe amputation Debridement of hindfoot, right: 01/17/23 Right heel debridement December 2022 and January 2023 Right guillotine below the knee amputation on January 23, 2023 Right BKA January 25, 2023 Thyroid Cholecystectomy Left thumb surgery AV fistula??left upper extremity donor kidney transplant 2013 ?? Social History Patient lives alone. Alcohol Details:??Frequency: 1-2 times per year. Tobacco Details:??Use: Never (less than 100 in lifetime). Drug use Patient denies ?? Family Medical History Mother living at 74 with diabetes. ??Father at 80 with brain cancer?? Medications Home Medications??(Confirmed with the patient) Acetaminophen (acetaminophen 500 mg oral tablet)?1?tab(s)?500?Milligram?By Mouth?Every 4 hours?as needed?as needed for fever Albuterol (albuterol 0.083% inhalation solution)?3?Milliliter?2.5?Milligram?Inhalation?Every 6 hours?as needed?for wheezing Amlodipine (amLODIPine 5 mg oral tablet)?1?tab(s)?5?Milligram?By Mouth?Daily?TAKE [...] solution)?6?unit(s)?Subcutaneous Injection?3 times a day before meals Loperamide (loperamide 2 mg oral capsule)?2?Milligram?By Mouth?Every [...] for pain Trazodone (traZODone 50 mg oral tablet)?25?Milligram?0.5?tablet?By Mouth?Daily at bedtime?TAKE 1/2 TABLET AT BEDTIME ? Results Recent Labs BLOOD COUNT & DIFF WBC 8.6 k/mm3 ()?? 03/04/2023 07:24 RBC 3.94 m/mm3 (Low)?? 03/04/2023 07:24 Hgb 10.9 Gm/dL (Low)?? 03/04/2023 07:24 Hct 35.1 % (Low)?? 03/04/2023 07:24 MCV 89.1 femtoliters ()?? 03/04/2023 07:24 MCH 27.7 pg ()?? 03/04/2023 07:24 MCHC 31.1 g/dL (Low)?? 03/04/2023 07:24 Platelet Count 312 k/mm3 ()?? 03/04/2023 07:24 RDW-SD 54.2 femtoliters (High)?? 03/04/2023 07:24 MPV 10.5 femtoliters ()?? 03/04/2023 07:24 Nucleated RBC (Automated) 0.0 #/100 WBC'S ()?? 03/04/2023 07:24 Abs. NRBC 0.0 k/mm3 ()?? 03/04/2023 07:24 Abs. Neut 5.3 k/mm3 ()?? 03/04/2023 07:24 Abs. Lymph 2.4 k/mm3 ()?? 03/04/2023 07:24 Abs. [place] 0.8 k/mm3 ()?? 03/04/2023 07:24 Abs. Eo 0.1 k/mm3 ()?? 03/04/2023 07:24 Abs. Baso 0.0 k/mm3 ()?? 03/04/2023 07:24 Neut % 61.5 % ()?? 03/04/2023 07:24 Lymph % 27.7 % ()?? 03/04/2023 07:24 [place] % 9.0 % ()?? 03/04/2023 07:24 Eos % 0.7 % ()?? 03/04/2023 07:24 Baso % 0.5 % ()?? 03/04/2023 07:24 Imm Gran 0.6 % ()?? 03/04/2023 07:24 Abs. Imm Gran 0.1 k/mm3 ()?? 03/04/2023 07:24 ?? CHEM GENERAL Sodium 139 mmol/L ()?? 03/04/2023 07:24 Potassium 4.4 mmol/L ()?? 03/04/2023 07:24 Chloride 112 mmol/L (High)?? 03/04/2023 07:24 Bicarbonate Level 14 mmol/L (Low)?? 03/04/2023 07:24 Anion Gap 13 ()?? 03/04/2023 07:24 Glucose Level 187 mg/dL (High)?? 03/04/2023 07:24 Glucose, POC 119 mg/dL (High)?? 03/05/2023 00:12 BUN 24 mg/dL (High)?? 03/04/2023 07:24 Creatinine-Blood 2.5 mg/dL (High)?? 03/04/2023 07:24 Estimated GFR Creatinine 29 ML/MIN/1.73 M2 ()?? 03/04/2023 07:24 Calcium 8.5 mg/dL (Low)?? 03/04/2023 07:24 Lactate 2.1 mmol/L ()?? 03/04/2023 07:24 C-Reactive Protein <0.3 mg/dL ()?? 03/04/2023 07:24 ?? HEME OTHER Sed Rate 53 mm/hr (High)?? 03/04/2023 07:24 Hold Blue Top SPECIMEN DISCARDED AFTER 4 HOURS. ()?? 03/04/2023 07:24 ?? URINE OTHER Est Creatinine Clearance 26.23 mL/min ()?? 03/04/2023 10:05 ?? VIROLOGY COVID-19 by RT-PCR NEGATIVE ()?? 03/04/2023 09:13 ?(03/04/2023 10:33 EDT Knee 1 or 2 Views Right) IMPRESSION:? No acute bony abnormality.?? [1] ?? (03/04/2023 13:45 EDT MRI Lumbar Spine W+W/O Contrast) IMPRESSION: ? 1. No evidence of epidural abscess/phlegmon, discitis/osteomyelitis, or other signs of infection inthe lumbar spine. 2. Scattered degenerative changes of the lumbar spine as detailed above. No high-grade central stenosis. Neural foraminal narrowing is greatest on the right at L5-S1 (severe), with compression of theexiting right L5 nerve root. 3. Localizer images of the cervical and thoracic spine demonstrate no areas of bony destruction, but degenerative disc bulges at C3-4, C4-5, and C5-6 result in at least moderate to severe central stenosis at these levels, roughly similar to prior CT neck. [2] (03/04/2023 14:38 EDT US Doppler Ext Lower Venous Left) IMPRESSION:? No evidence of deep venous thrombosis. [3] [1]??Knee 1 or 2 Views Right; Louise SEVERINO, Franco V 03/04/2023 10:33 EDT [2]??MRI Lumbar Spine W+W/O Contrast; Mirna Pratt MD 03/04/2023 13:45 EDT [3]??US Doppler Ext Lower Venous Left; Odin Montalvo MD 03/04/2023 14:38 EDT Hospital Progress note * Radha Carmona RN: PERFORM, SIGN, VERIFY Event Display: Progress Note Hospital Authored Date: [id number] Patient: TITO RICHARDSON Age: 57 years Sex: Male : 1965 Associated Diagnoses: None Author: Radha Carmona RN Findings Problem Related to Alteration in Neurological : Alteration in Neurological Function/new 03/11/2023 7:00 EDT Alteration in Neuro status Related to Other: BKA pain from debridement Goals & Outcomes, Neurological Pt is safe with transfers & activities, Pt will be discharged without infection, Pt will be Neurologically stable, Pt will become pain free with appropriate intervention, Pt will maintain intact skin integrity, Pt will remain free from injury Interventions, Neurological Assess/monitor neurologic status, Assess/monitor VS per unit standards & prn, Call/Report variances in assessments to provider, Collaborate w/ provider to implement appropriate guidelines, Collaborate with Nutrition, Collaborate with provider re: medication regime, Identify psychosocial issues related to diagnosis/illness, If no bowel movement in 3 days activate bowel regime, [place] alternate means of communication, Keep patient's head & body in good alignment, Physical assessment per unit standards, Provide emotional support to Pt/caregiver Goals/Interventions, Neurological Yes Neurological, Problem Start 03/08/2023 9:00 Reviewed plan with, Neurological Patient Patient Progression, Neurological Pt progressing according to plan . Nursing Data Neurological Data. : Neurological Data. 03/11/2023 8:00 EDT Tongue Disposition Midline Neurological Symptoms Altered sensation or tingling, Unsteady gait/Ataxia Level of Consciousness Full Consciousness Orientated to person, place, time Person, Place, Time Facial Symmetry Intact Characteristics of Speech Clear and normal Swallowing Difficulty None Pupil description, left Round Pupil description, right Round Pupil reaction, left Brisk Pupil reaction, right Brisk Pupil Size, Left 2 mm Pupil Size, Right 2 mm Strength LUE 5-Active movement against gravity & full resistance Strength RUE 5-Active movement against gravity & full resistance Strength LLE 5-Active movement against gravity & full resistance Strength RLE 5-Active movement against gravity & full resistance Tone LUE Normal Tone RUE Normal Tone LLE Normal Sensation LUE Intact Sensation RUE Intact Sensation LLE Intact Sensation RLE Intact Movement LUE Spontaneous, To command Movement RUE Spontaneous, To command Movement LLE Spontaneous, To command Movement RLE Spontaneous, To command Gait Unable to assess Tremors None Response Eye Opening Spontaneously Motor Response-Adult Obeys commands Verbal Response-Adult Oriented and converses [place] Coma Score 15 Neuro WNL except Eyes and Movements Conjugate gaze: Move in same direction at same speed Headache None Memory Intact Swallow - Neuro Normal . Evaluation AO self, hospital, date. Speech clear. PERRLA. Numbness/tingling hands. Denies pain, GAGNON, dizziness,visual changes. Right BKA. LOPEZ 5/5. Personal w/chair in room. On RA, satting 100%. Lungs clear. Denies cough, CP, SOB. LBM 09-21. Left AV fistula ( - ) bruit random intermittent thrill. IV RAC patent. Pending discharge. Report via phone to [facility] [place] 3. . * Nik Esposito: PERFORM, SIGN, VERIFY Event Display: Progress Note Hospital Authored Date: [id number] Patient: TITO RICHARDSON Age: 57 years Sex: Male : 1965 Associated Diagnoses: None Author: Nik Esposito [facility] Inpatient Nephrology Progress Note Interval History No overnight events or acute complaints Creatinine now back to baseline Plan for discharge today Review of Systems Review of Systems Constitutional: no complaints. Respiratory: no shortness of breath. Cardiovascular: no peripheral edema. Gastrointestinal: no nausea, no vomiting. Physical Examination Vital Signs Vitals 03/11/2023 14:01 EDT Temperature 97.7 DegF Temperature Route Oral Pulse Rate 85 bpm Respiratory Rate 18 br/min Systolic Blood Pressure 124 mm Hg Diastolic Blood Pressure 80 mm Hg Blood pressure sites Arm, right Mean Arterial Pressure 95 mm Hg Pulse Pressure 44 mm Hg Oxygen Saturation 99 % Mode of Delivery (Oxygen) Room air . General Appearance NAD. Respiratory Lungs: CTA. Cardiac Cardiac: no M/G/R. Abdomen/GI Abdomen: soft. Extremities Extremities: R BKA. No edema. Neurologic Alert & oriented x 3 . Results Review 7 Day Results Results Laboratory : LABORATORY 03/11/2023 9:51 EDT Sodium 137 mmol/L Potassium 4.6 mmol/L Chloride 110 mmol/L H Bicarbonate Level 17 mmol/L L Anion Gap 10 Glucose Level 267 mg/dL H BUN 19 mg/dL Creatinine-Blood 2.7 mg/dL H Estimated GFR Creatinine 26 ML/MIN/1.73 M2 Calcium 8.9 mg/dL Impression and Plan Pt is a 57-year-old male with a past medical history of ESRD s/p DDKT (2013) on tacrolimus monotherapy, type II diabetes poorly controlled, s/p parathyroidectomy on calcitriol, neuropathy, recent RLEdiabetic foot wound s/p BKA 01/25/23 came back to the hospital because he reported foul smelling BKA w ound. S/p BKA debridement 03/08. 1. ESRD s/p DDKT c/b BEATRIZ on CKD of allograft Creatinine peaked at 3.2mg/dL, now back to baseline of 2.4-2.7mg/dL BEATRIZ most likely pre-renal in the setting of being NPO for surgery, further supported by improvementwith IVF. Patient is on tacrolimus monotherapy for immunosuppression 2mg BID. Increased to 2mg/3mg due to lowtrough, but then decreased back to 2mg BID due to tacro level 8.8 on 03/09. Tacro level now at goal. Not currently on infx ppx. ??2. NAGMA On chronic bicarb, bicarb today is 17 Could be due to tacro which causes RTA IV 3. S/p parathyroidectomy 4. HTN Plan: - Ok for discharge from renal standpoint - Continue tacrolimus 2mg BID - Continue sodium bicarb 1300mg BID - Continue metoprolol 25mg daily and amlodipine 5mg daily - Continue calcitriol 0.5mcg daily Thank you for the courtesy of this consult, RTANE will continue monitoring the patient along with you. Please do not hesitate to call us with any further questions Nik Vides PA-C [facility], [address], [address] Available by [employer] * Aquiles PINEDA, Aidee Callaway: PERFORM, MODIFY Event Display: Progress Note Hospital Authored Date: Patient: ??TITO RICHARDSON ? Age:??57 Years?Sex:??Male?:??1965?? Subjective Patient examined at bedside this morning. No acute changes or events overnight. POD [address] R [address]KA debridement with Dr. Roca. Pain currently well controlled. Review of Systems General: No fevers or chills, no weight loss HEENT: No vision changes, headache or sore throat Resp: No dyspnea, cough Cardiac: no chest discomfort or palpitations Abdomen: no nausea, vomiting or diarrhea; no pain, bloating or soreness : no dysuria, changes to urination, flank or back pain Skin: s/p R BKA debridement MSK: no joint pain, edema Neuro: no weakness, numbness Objective Vitals & Measurements T:??97.4?F?? TMIN:??97.4?F?? TMAX:??98.4?F?? HR:??78??(Peripheral)?? RR:??18?? BP:??142/79?? SpO2:??99%?? Physical Exam General appearance: No apparent distress, appears stated age, well developed. Head: Normocephalic, atraumatic. Cardiac: RRR, no murmurs Respiratory: Clear to auscultation bilaterally. Abdomen: Soft, nontender, nondistended. No guarding or rebound. No palpable mass. Extremities: Able to move all extremities without difficulty. Warm. Neurologic status: Alert and oriented x 3. No focal deficits. Psych: Mood and affect normal. Vascular:??R BKA: clean wound base with scattered fat and fibrinous tissue. No purulence or erythema.?? Assessment/Plan Tito Richardson is a 57 year old man with PMH: DM, GERD, ESRD-s/p DDKidney transplant(2013), CRI, HTN well known to Vascular surgery for recent??multiple wound debridements of Right foot leading to a right below the knee amputation.?? He is s/p Right Guillotine amputation by Dr Caro on 01/23 and completion right below the knee amputation??by Dr Bolanos on 01/25.?? Patient had refused rehab on initial discharge on 02/01??from hospital??and subsequently fell??on stump at home??[facility] with drainage from amputation site.??He was later discharged to rehab facility on 02/11 from hospital and is now at home. He was seen on post op check on 03/01 due to an open stump wound and started on Keflex. ??Patient then presented to the ED on 03/04??due to fevers and chills and persistent right stump pain. ??On physical exam he had??gross dehiscence??of his BKA stump, with eschar??on the lateral aspect. ??He was admitted to the medical service for IV antibiotics(Vanco/Zosyn)??and further work-up due to??back pain and??fevers.??Lumbar MRI??was negative for spinal epidural abscess.?Doppler US of left lower extremity negative for DVT. Pt is now??s/p R BKA wound debridement with(03/08/23) Dr Roca. Tolerated procedure without?? complication. NO active bleeding; minimal fibrinous tissue, excised this morning, otherwise, wound looks clean, no purulence, started on Collage nase. No vacuum at this time, reevaluate daily??for wound vac placement later in the week. Usman came by 03/09, zara is good fit, working with PT. ?? Recommendations: - Tight glycemic control - Multimodal pain control - Continue daily ASA, Atorvastatin - Wound care: Collagenase to R BKA BID; cover with DSD, ariadne bandage - [place] to be worn at all times - Remainder of care per primary team ?? Please [place] Vascular [place] or [place] [phone]. ?? Resident/PA/SCALE TESTER Attestation Case discussed with attending physician:??Dr. Roca ?? Medications Inpatient Acetaminophen Tablet, 650 mg, By Mouth, Every 4 hours, PRN amLODIPine 5 mg oral tablet, 5 mg, By Mouth, Daily aspirin 81 mg oral delayed release tablet, 81 mg, By Mouth, Daily calcitriol 0.25 mcg oral capsule, 0.5 mcg, By Mouth, Daily Collagenase Topical Oint, 1 application, Topically, Daily Dextrose 50% Inj Syringe (25Gm), 12.5 Gm, IV Push Slowly, Every 20 minutes, PRN Dextrose 50% Inj Syringe (25Gm), 25 Gm, IV Push Slowly, Every 15 minutes, PRN Docusate Sodium Capsule, 100 mg= 1 capsule, By Mouth, 2 times a day, PRN ferrous sulfate 325 mg oral enteric coated tablet, 325 mg, By Mouth, Daily gabapentin 100 mg oral capsule, 200 mg, By Mouth, Daily at bedtime Glucagon Inj, 1 mg, Intramuscular, Once, PRN Glucose Gel, 15 Gm, By Mouth, Every 20 minutes, PRN Glucose Gel, 30 Gm, By Mouth, Every 20 minutes, PRN Heparin Inj, 5000 units= 1 mL, Subcutaneous Injection, 3 times a day HydrOXYzine HCL Tablet, 10 mg, By Mouth, 2 times a day Imodium Capsule, 2 mg, By Mouth, Every 3 hours, PRN Insulin LISPRO Sliding Scale, 4-12 units, Subcutaneous Injection, 3 times a day before meals Lantus Inj, 10 units= 0.1 mL, Subcutaneous Injection, Daily at bedtime Lipitor 10 mg oral tablet, 10 mg, By Mouth, Daily in AM LR 1000 mL, 1000 mL, IV Infusion Melatonin Tablet, 3 mg, By Mouth, Daily at bedtime, PRN metoprolol 25 mg oral tablet, extended release, 25 mg, By Mouth, Daily MiraLax Powder, 17 Gm= 1 pack/packet, By Mouth, Daily, PRN NaCL 0.9% Flush, 3 mL, IV Push, Every 8 hours NaCL 0.9% Flush, 3 mL, IV Push, Every 8 hours, PRN oxyCODONE 5 mg oral tablet, 5 mg, By Mouth, Every 6 hours, PRN pantoprazole 20 mg oral delayed release tablet, 20 mg, By Mouth, Daily Robitussin DM Liquid, 10 mL, By Mouth, Every 4 hours, PRN Senna Tablet, 8.6 mg= 1 tablet, By Mouth, 2 times a day, PRN Simethicone Tablet, 80 mg, Chew, 3 times a day, PRN sodium bicarbonate 650 mg oral tablet, 1300 mg, By Mouth, 2 times a day tacrolimus 1 mg oral capsule, 2 mg, By Mouth, 2 times a day traZODone 50 mg oral tablet, 25 mg, By Mouth, Daily at bedtime Home acetaminophen 500 mg oral tablet, 500 mg= 1 tablet, By Mouth, Every 4 hours, PRN albuterol 0.083% inhalation solution, 2.5 mg= 3 mL, Inhalation, Every 6 hours, PRN albuterol 0.083% inhalation solution, 2.5 mg= 3 mL, Neb, Every 8 hours amLODIPine 10 mg oral tablet, 10 mg= 1 tablet, By Mouth, Daily, 2 refills amLODIPine 5 mg oral tablet, 5 mg= 1 tablet, By Mouth, Daily aspirin 81 mg oral delayed release tablet, 81 mg, By Mouth, Daily atorvastatin 10 mg oral tablet, 10 mg= 1 tablet, By Mouth, Daily calcitriol 0.5 mcg oral capsule, 0.5 mcg= 1 capsule, By Mouth, Daily ferrous sulfate 325 mg oral enteric coated tablet, 325 mg, By Mouth, Daily gabapentin 100 mg oral capsule, 100 mg= 1 capsule, By Mouth, Daily at bedtime hydrOXYzine hydrochloride 10 mg oral tablet, 10 mg= 1 tablet, By Mouth, 2 times a day Insulin Glargine Inj, 5 units= 0.05 mL, Subcutaneous Injection, Daily at bedtime insulin lispro 100 units/mL injectable solution, 6 units, Subcutaneous Injection, 3 times a day before meals loperamide 2 mg oral capsule, 2 mg, By Mouth, Every 3 hours, PRN Metoprolol Succinate ER 25 mg oral tablet, extended release, 25 mg= 1 tablet, By Mouth, Daily pantoprazole 20 mg oral delayed release tablet, 20 mg, By Mouth, Daily predniSONE 10 mg oral tablet, 10 mg= 1 tablet, By Mouth, Daily sodium bicarbonate 650 mg oral tablet, 650 mg= 1 tablet, By Mouth, 3 times a day tacrolimus 1 mg oral capsule, 2 mg= 2 capsule, By Mouth, Every 12 hours traMADol 50 mg oral tablet, 50 mg= 1 tablet, By Mouth, Every 12 hours, PRN traZODone 50 mg oral tablet, 25 mg= 0.5 tablet, By Mouth, Daily at bedtime [1]??vascular Surgical Inpatient Progress Note; Lewis Fontanez 03/10/2023 07:53 EDT Consult note * Ana Chávez MD: VERIFY, SIGN, PERFORM Event Display: Consultation Note Authored Date: [id number] Patient: TITO RICHARDSON Age: 57 years Sex: Male : 1965 Associated Diagnoses: None Author: Ana Chávez MD [facility] Inpatient Nephrology Consultation Note Reason for Consult: kidney tx recipient History of Present Illness Pt is a 57-year-old male with a past medical history of ESRD s/p DDKT (2013) on tacrolimus monotherapy, type II diabetes poorly controlled, s/p parathyroidectomy on calcitriol, neuropathy, recent RLEdiabetic foot wound s/p BKA 01/25/23 came back to the hospital b/c he reported foul smelling BKA wound. Pt is scheduled for BKA stump debridement this Wednesday. Admitted for further management Review of Systems Constitutional: No weight loss, fever, chills, weakness or fatigue HEENT: No blurred vision Skin: No rash or itching. Cardiovascular: No chest pain or pedal edema. Respiratory: No shortness of breath, cough Gastrointestinal: Negative for nausea, vomiting & diarrhea. No abdominal pain or blood in stool. Genitourinary: No burning micturition. No urinary frequency or incontinence. Neurologic: No headache, dizziness Musculoskeletal: No muscle pain, back pain Peripheral: + foul smelling from R BKA site Health Status -donor kidney transplant Parathyroidectomy Irritable Bowel DIABETES MELLITUS Acid reflux CKD (chronic kidney disease) Cholycystectomy Diabetes mellitus Diabetic foot infection End stage renal disease GERD (gastroesophageal reflux disease) HYPERTENSION History of parathyroidectomy Hyperlipidemia Hypertension Peripheral neuropathy Secondary hyperparathyroidism of renal origin No family history recorded. Alcohol Details: Frequency: 1-2 times per year. Tobacco Details: Use: Never (less than 100 in lifetime). Details: Never smoker Home meds: Acetaminophen (acetaminophen 500 mg oral tablet) 1 tab(s) 500 Milligram By Mouth Every 4 hours as needed as needed for fever Albuterol (albuterol 0.083% inhalation solution) 3 Milliliter 2.5 Milligram Neb Every 8 hours Albuterol (albuterol 0.083% inhalation solution) 3 Milliliter 2.5 Milligram Inhalation Every 6 hours as needed for wheezing Amlodipine (amLODIPine 10 mg oral tablet) 1 tab(s) 10 Milligram By Mouth Daily Take instead of the 5mg tablets for blood pressure Amlodipine (amLODIPine 5 mg oral tablet) 1 tab(s) 5 Milligram By Mouth Daily TAKE ONE TABLET EVERY MORNING Aspirin (aspirin 81 mg oral delayed release tablet) 81 Milligram By Mouth Daily Atorvastatin (atorvastatin 10 mg oral tablet) 1 tab(s) 10 Milligram By Mouth Daily TAKE ONE TABLET EVERY MORNING Calcitriol (calcitriol 0.5 mcg oral capsule) 1 capsule 0.5 Microgram By Mouth Daily TAKE ONE CAPSULE EVERY MORNING Ferrous Sulfate (ferrous sulfate 325 mg oral enteric coated tablet) 325 Milligram By Mouth Daily Gabapentin (gabapentin 100 mg oral capsule) 100 Milligram 1 capsule By Mouth Daily at bedtime TAKE ONE CAPSULE BY MOUTH AT BEDTIME HydrOXYzine (hydrOXYzine hydrochloride 10 mg oral tablet) 1 tab(s) 10 Milligram By Mouth 2 times a day TAKE ONE TABLET BY MOUTH IN THE MORNING AND EVENING Insulin Glargine (Insulin Glargine Inj) 0.05 Milliliter 5 unit(s) Subcutaneous Injection Daily at bedtime Insulin Lispro (insulin lispro 100 units/mL injectable solution) 6 unit(s) Subcutaneous Injection 3times a day before meals Loperamide (loperamide 2 mg oral capsule) 2 Milligram By Mouth Every 3 hours as needed Loose Stool Metoprolol (Metoprolol Succinate ER 25 mg oral tablet, extended release) 1 tab(s) 25 Milligram By Mouth Daily TAKE ONE TABLET EVERY MORNING Pantoprazole (pantoprazole 20 mg oral delayed release tablet) 20 Milligram By Mouth Daily PredniSONE (predniSONE 10 mg oral tablet) 1 tab(s) 10 Milligram By Mouth Daily sodium bicarbonate (sodium bicarbonate 650 mg oral tablet) 1 tab(s) 650 Milligram By Mouth 3 times a day TAKE ONE TABLET BY MOUTH THREE TIMES DAILY Tacrolimus (tacrolimus 1 mg oral capsule) 2 capsule 2 Milligram By Mouth Every 12 hours Tramadol (traMADol 50 mg oral tablet) 1 tab(s) 50 Milligram By Mouth Every 12 hours as needed as needed for pain Trazodone (traZODone 50 mg oral tablet) 25 Milligram 0.5 tablet By Mouth Daily at bedtime TAKE 1/2 TABLET AT BEDTIME Physical Examination General: No Acute Distress. HEENT: Mucous membranes moist CV: Regular rate and rhythm Respiratory: Clear to auscultation bilaterally. Abdominal: Soft Extremities: No peripheral edema Neuro: A+OX3 Skin: No rashes Results Review General results Today's results 03/05/2023 5:21 EDT WBC 7.0 k/mm3 RBC 3.31 m/mm3 L Hgb 9.4 Gm/dL L Hct 29.6 % L MCV 89.4 femtoliters MCH 28.4 pg MCHC 31.8 g/dL L Platelet Count 240 k/mm3 RDW-SD 53.6 femtoliters H MPV 10.8 femtoliters Nucleated RBC (Automated) 0.0 #/100 WBC'S Abs. NRBC 0.0 k/mm3 Abs. Neut 4.7 k/mm3 Abs. Lymph 1.6 k/mm3 Abs. [place] 0.5 k/mm3 Abs. Eo 0.2 k/mm3 Abs. Baso 0.0 k/mm3 Neut % 67.0 % Lymph % 22.3 % [place] % 7.6 % Eos % 2.4 % Baso % 0.4 % Imm Gran 0.3 % Abs. Imm Gran 0.0 k/mm3 Sodium 137 mmol/L Potassium 4.4 mmol/L Chloride 109 mmol/L H Bicarbonate Level 15 mmol/L L Anion Gap 13 Glucose Level 218 mg/dL H BUN 23 mg/dL H Creatinine-Blood 2.6 mg/dL H Estimated GFR Creatinine 28 ML/MIN/1.73 M2 Calcium 8.3 mg/dL L Impression and Plan Pt is a 57-year-old male with a past medical history of ESRD s/p DDKT (2013) on tacrolimus monotherapy, type II diabetes poorly controlled, s/p parathyroidectomy on calcitriol, neuropathy, recent RLEdiabetic foot wound s/p BKA 01/25/23 came back to the hospital b/c he reported foul smelling BKA wound. Pt is scheduled for BKA stump debridement this Wednesday. Admitted for further management 1. Graft function stable Scr is at baseline 2.6 today, was 3 on discharge 02/11/23 DSA - neg 07/27/22 Monitor Scr Avoid nephrotoxins including NSAIDs 2. Immunosupression Currently taking Prograf 2 mg oral BID FK level last one was at goal 5 on 02/11/23 Please monitor tac trough daily (30 minute prior to AM dose, ordered), goal trough between 5-7 Unclear why he is on prednisone?, would discontinue as currently with active infection 3. Prophylaxis Currently not on any prophyalxis 4. Infection BK blood PCR neg September 2022 5. Heme Hb 9.4 , [id number], no leukocytosis Monitor CBC 6. HTN Blood pressure is currently above target range, was well controlled yesterday Currently taking Metoprolol XL 25 mg oral daily and Norvasc 5 mg oral daily Continue current BP meds, if still uncontrolled through out the day, then can increased Norvasc to 10 mg oral daily 7.Electrolytes Metabolic acidosis, low serum bicarb of 15 today Will increase PO bicarb to 1300 mg oral BID Thank you for the courtesy of this consult, RTANE will continue monitoring the patient along with you please do not hesitate to call us with any further questions Ana Chávez MD Available by [facility] [address] , [address] * Tim PINEDA, [place]: MODIFY, MODIFY, MODIFY, MODIFY, MODIFY, MODIFY, MODIFY, MODIFY, MODIFY, MODIFY, MODIFY, MODIFY, MODIFY, MODIFY, MODIFY, MODIFY, PERFORM, MODIFY Event Display: Consultation Note Authored Date: [id number] Patient: ??TITO RICHARDSON ? Age:??57 Years?Sex:??Male?:??1965?? Chief Complaint/Reason for Consult c/o right stump pain and dry open wound dehiscence of stump after falling 5 days ago, along with left sided??back pain across to right side. ?? History of Present Illness Tito Richardson is a 57 year old man with PMH: DM, GERD, ESRD-s/p DDKidney transplant(2013), CRI, HTN well known to Vascular surgery for recent??multiple wound debridements of Right foot leading to a right below the knee amputation.?? He is s/p Right Guillotine amputation by Dr Caro on 01/23 and completion right below the knee amputation??by Dr Bolanos on 01/25.?? Patient had refused rehab on initial discharge on 02/01??from hospital??and subsequently fell??on stump at home??[facility] with drainage from amputation site.??He was later discharged to rehab facility on 02/11 from hospital, is now home and driving his car.? Patient was??seen by Justina Newberry NP in Vascular office for a post op check on 03/01 with open wound on stump, Keflex was ordered along with local wound care??with Collagenase to be done by [facility] services.?? Patient arrived to ER today with c/opain at??R BKA site for 5 days since fall last week.?? Per patient he has had??fever and chills forthe past 2 days, pain at the stump site and in the left side of his back going to the right side. He feels it is due to him moving around and standing on his left leg so much. He has fallen multiple times at home while attempting to go to the bathroom at night and his bed is now on the floor.?? He states his ampushield to protect his stump is too large.?? Of note he c/o left leg swelling.?? He has been afebrile in the ER and no leukocytosis.??His sed rate is elevated to 53.?? Right BKA Xray today revealed no bony abnormality. Lumbar MRI today pending to r/o epidural abscess.?? Vascular surgery was consulted for a potentially infected Right BKA stump management. ? Review of Systems 12-point review of systems was reviewed and is negative except as per HPI.??Interviewed through contract assistant to obtain information Physical Exam Vitals & Measurements T:??98.6?F?? HR:??76??(Peripheral)?? RR:??16?? BP:??133/106?? SpO2:??100%?? HT:??160??cm?? WT:??74??kg?? BMI:??28.91?? General: no acute distress, awake, alert HEENT: NCAT, EOM grossly intact, trachea midline CV: RRR Pulm: nonlabored breathing on room air Abd: nondistended RLE: BKA stump with sutures and intermittent cruzito,??no drainage, wound base is dry with eschar medial incision and fibrinous slough at edges of wound, mild periwound erythema, unable to assess forfluctuance or expressible fluid due to significant tenderness with palpation Skin: no rash on limited exam, warm and well-perfused Neuro: answers questions appropriately Psych:??appropriate Palpable femoral and popliteal arteries bilaterally.?? Left leg edema 2+ pitting from foot to knees, no calf tenderness with all compartments soft, foot warm, sensory and motor intact Assessment/Plan Tito Richardson is a 57 year old man with PMH: DM, GERD, ESRD-s/p DDKidney transplant(2013), CRI, HTN well known to Vascular surgery for recent??multiple wound debridements of Right foot leading to a right below the knee amputation.?? He is s/p Right Guillotine amputation by Dr Caro on 01/23 and completion right below the knee amputation??by Dr Bolanos on 01/25.?? Patient had refused rehab on initial discharge on 02/01??from hospital??and subsequently fell??on stump at home[facility] [facility] with [facility] from amputation site.??He was later discharged to rehab facility on 02/11 from hospital, is now home and driving his car.? Patient was??seen by Justina Newberry NP in Vascular office for a post op check on 03/01 with open wound on stump, Keflex was ordered along with local wound care??with Collagenase to be done by VNA services.?? Patient arrived to ER today with c/opain at??R BKA site for 5 days since fall last week.?? Per patient he has had??fever and chills forthe past 2 days, pain at the stump site and in the left side of his back going to the right side. He feels it is due to him moving around and standing on his left leg so much. He has fallen multiple times at home while attempting to go to the bathroom at night and his bed is now on the floor.?? He states his ampushield to protect his stump is too large.?? Of note he c/o left leg swelling.?? He has been afebrile in the ER and no leukocytosis.??His sed rate is elevated to 53.?? Right BKA Xray today revealed no bony abnormality. Lumbar MRI today pending to r/o epidural abscess.?? Vascular surgery was consulted for a potentially infected Right BKA stump management.?? No immediate surgical intervention at this time.?? May need surgical debridement in the near future? Recommendations: ?? Admit to Medicine Multimodal pain control Right stump wound care: wet to dry dressing, cover with dry dressing and secure. Change daily and prn. Ariadne wrap Ariadne and elevate left leg for edema control Tight glucose control f/u MRI f/u left leg ultrasound Antibiotics at the discretion of the primary team Vascular surgery will continue to follow Remainder of care by primary team ?? Any questions or concerns page Vascular surgery [id number] Spence ?? Problem List/Past Medical History Ongoing Acid reflux Chronic diarrhea CKD (chronic kidney disease) -donor kidney transplant DIABETES MELLITUS Diabetes mellitus Diabetic foot infection End stage renal disease GERD (gastroesophageal reflux disease) History of parathyroidectomy Hyperlipidemia HYPERTENSION Hypertension Peripheral neuropathy Secondary hyperparathyroidism of renal origin Procedure/Surgical History Colonoscopy and extirpation of lesion of colon: 02/05/23 Esophagogastroduodenoscopy and biopsy: 02/05/23 Debridement of hindfoot, right: 01/17/23 Upper gastrointestinal endoscopy including esophagus, stomach, and either the duodenum and/or jejunum as appropriate; with biopsy, single or multiple: 06/01/11 Colonoscopy, flexible, proximal to splenic flexure; with biopsy, single or multiple: 06/01/11 Thyroid [...] of the 5mg tablets for blood pressure Amlodipine: 5 mg = 1 tablet, By Mouth, Daily, TAKE ONE TABLET EVERY MORNING Aspirin: 81 mg = 1 tablet, By Mouth, Daily Aspirin: 81 mg, By Mouth, Daily Atorvastatin: 10 mg = 1 tablet, By Mouth, Daily Atorvastatin: 10 mg = 1 tablet, By Mouth, Daily, TAKE ONE TABLET EVERY MORNING Calcitriol: 0.5 mcg = 1 capsule, By Mouth, Daily Calcitriol: 0.5 mcg = 1 capsule, By Mouth, Daily, TAKE ONE CAPSULE EVERY MORNING Cephalexin: 750 mg = 1 capsule, By Mouth, Every 12 hours Cholecalciferol: 1,250 mcg = 1 capsule, By Mouth, Every week Duloxetine: 20 mg = 1 capsule, By Mouth, Daily Ergocalciferol: 50,000 International_Units = 1 capsule, By Mouth, Every week Famotidine: 40 mg = 1 tablet, By Mouth, Daily at bedtime Ferrous Sulfate: 325 mg, By Mouth, Daily Gabapentin: 100 mg = 1 capsule, By Mouth, 3 times a day Gabapentin: TAKE ONE CAPSULE AT BEDTIME Gabapentin: 100 mg = 1 capsule, By Mouth, Daily at bedtime, TAKE ONE CAPSULE BY MOUTH AT BEDTIME HydrOXYzine: 10 mg = 1 tablet, By Mouth, 2 times a day, TAKE ONE TABLET BY MOUTH IN THE MORNING ANDEVENING Insulin Aspart: 10 units, Subcutaneous Injection, 3 times a day before meals, INJECT 9 UNITS SUBCUTANEOUSLY WITH BREAKFAST, 9 UNITS SUBCUTANEOUSLY WITH LUNCH AND 7 UNITS SUBCUTANEOUSLY WITH DINNER Insulin Glargine: 35 units, Subcutaneous Injection, Daily at bedtime Insulin Glargine: 5 units = 0.05 mL, Subcutaneous Injection, Daily at bedtime Insulin Lispro: 6 units, Subcutaneous Injection, 3 times a day before meals Levothyroxine: 50 mcg = 2 tablet, By Mouth, Daily Lidocaine Topical: 1 patch, Topically, Daily, PRN (Pain , Mild), remove after 12 hours Lidocaine Topical: 1 patch, Topically, Daily, PRN (Pain , Mild), remove after 12 hours Loperamide: 2 mg = 1 capsule, By Mouth, 3 times a day Loperamide: 2 mg, By Mouth, Every 3 hours, PRN (Loose Stool) Metoclopramide: 10 mg = 1 tablet, By Mouth, Every 6 hours Metoprolol: 25 mg = 1 tablet, By Mouth, Daily, TAKE ONE TABLET EVERY MORNING Mupirocin Topical: 1 application, Topically, 3 times a day NIFEdipine: 30 mg = 1 tablet, By Mouth, Daily Pantoprazole: 40 mg = 1 tablet, By Mouth, 2 times a day Pantoprazole: 20 mg, By Mouth, Daily PEG Electrolyte Solution: See Instructions, as directed PredniSONE: 5 mg = 1 tablet, By Mouth, Daily PredniSONE: 10 mg = 1 tablet, By Mouth, Daily sodium bicarbonate: 650 mg = 1 tablet, By Mouth, 3 times a day, TAKE ONE TABLET BY MOUTH THREE TIMES DAILY Tacrolimus: 2 mg = 2 capsule, By Mouth, Every 12 hours, Take 1 capsule everyday in the morning and 2 capsules everyday in the evening Tacrolimus: 2 mg = 2 capsule, By Mouth, Every 12 hours Tamsulosin: 0.4 mg = 1 capsule, By Mouth, Daily at bedtime Tramadol: 50 mg = 1 tablet, By Mouth, Every 12 hours, PRN (as needed for pain) Trazodone: 75 mg = 1.5 tablet, By Mouth, Daily at bedtime Trazodone: 25 mg = 0.5 tablet, By Mouth, Daily at bedtime, TAKE 1/2 TABLET AT BEDTIME Allergies Benadryl??(itching) Dilaudid??(anaphylaxis) morphine??(itching) Social History Alcohol Frequency: 1-2 times per year. Tobacco Use: Never (less than 100 in lifetime). Family History No family history recorded. Radiology * Final Report * ?? Reason For Exam Infection ?? RESULT: Knee 1 or 2 Views Right Knee 2 Views Right ?? Hx of Present Illness: Pt from home with lower back pain and infection in right bka amputation; Reason: Infection; Clinical Question(s): Osteomyelitis; BKA ? COMPARISON: None. ?? FINDINGS: ?? Status post [id number] amputation.? The tibial and fibular stumps are unremarkable. ?? The knee joint is intact. No joint effusion. ?? The distal femur and patella are unremarkable. ?? Vascular calcifications. ?? IMPRESSION:? No acute bony abnormality.? I have personally reviewed the images and I agree with this report. WSN: [id number] ? Ordering Physician: Steve Chopra ?? Signature Line Dictated By: ?Cody Cage MD Dictated Date/Time: ?03/04/23 10:37 a ?? Lab Results Labs Last 24 Hours BLOOD COUNT & DIFF ? Event Name?? Event Result?? Date/Time?? WBC 8.6 k/mm3 03/04/23 07:24:00 RBC 3.94 m/mm3??Low 03/04/23 07:24:00 Hgb 10.9 Gm/dL??Low 03/04/23 07:24:00 Hct 35.1 %??Low 03/04/23 07:24:00 MCV 89.1 femtoliters 03/04/23 07:24:00 MCH 27.7 pg 03/04/23 07:24:00 MCHC 31.1 g/dL??Low 03/04/23 07:24:00 Platelet Count 312 k/mm3 03/04/23 07:24:00 MPV 10.5 femtoliters 03/04/23 07:24:00 Nucleated RBC (Automated) 0 #/100 WBC'S 03/04/23 07:24:00 ? CHEM GENERAL ? Event Name?? Event Result?? Date/Time?? Sodium 139 mmol/L 03/04/23 07:24:00 Chloride 112 mmol/L??High 03/04/23 07:24:00 Bicarbonate Level 14 mmol/L??Low 03/04/23 07:24:00 Anion Gap 13 03/04/23 07:24:00 Glucose Level 187 mg/dL??High 03/04/23 07:24:00 BUN 24 mg/dL??High 03/04/23 07:24:00 Creatinine-Blood 2.5 mg/dL??High 03/04/23 07:24:00 ? Note * Onelia Lopez RN: PERFORM Event Display: Discharge/Transfer Note Hospital Authored Date: [id number] Nursing Discharge Note Entered On: 03/11/2023 14:57 EDT Performed On: 03/11/2023 14:56 EDT by Onelia Lopez RN Nursing Discharge Note 2 Discharge Time : 03/11/2023 14:55 EDT Discharge Level of Care at Discharge : Homehealth/VNA Discharge Nursing Homes/Rehab Facilities : [facility] [place] Discharge VNA/Hospice/Home Care(v001) : [facility] Patient Left Unit Via : Wheelchair Patient Accompanied Off Unit with : Responsible adult DC Instructions Provided & Signed by Pt : Yes Patient Understands D/C Instructions : Yes Patient Instructions Discharge Signed : Yes Discharge Comments : iv DC'D WITH THE TIP INTACT Did Pt have Specialty Bed or Wound Vac : No Onelia Lopez RN - 03/11/2023 14:56 EDT * Katina Mckeon DO: PERFORM, MODIFY Event Display: Discharge/Transfer Note Hospital Authored Date: [id number] Patient: ??TITO RICHARDSON ? Age:??57 Years?Sex:??Male?:??1965?? 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 _ Discharge Medications Acetaminophen (acetaminophen 500 mg oral tablet)?1?tab(s)?500?Milligram?By Mouth?Every 4 hours?as needed?as needed for fever Albuterol (albuterol 0.083% inhalation solution)?3?Milliliter?2.5?Milligram?Inhalation?Every 6 hours?as needed?for wheezing Amlodipine (amLODIPine 5 mg oral tablet)?1?tab(s)?5?Milligram?By Mouth?Daily?TAKE ONE TABLET EVERY MORNING Aspirin (aspirin 81 mg oral delayed release tablet)?81?Milligram?By Mouth?Daily Atorvastatin (atorvastatin 10 mg oral tablet)?1?tab(s)?10?Milligram?By Mouth?Daily?TAKE ONE TABLET EVERY MORNING Calcitriol (calcitriol 0.5 mcg oral capsule)?1?capsule?0.5?Microgram?By Mouth?Daily?TAKE ONE CAPSULE EVERY MORNING Collagenase Topical (collagenase topical 250 u/gm ointment)?See Instructions?apply topically to R BKA BID Ferrous Sulfate (ferrous sulfate 325 mg oral enteric coated tablet)?325?Milligram?By Mouth?Daily Gabapentin (gabapentin 100 mg oral capsule)?100?Milligram?1?capsule?By Mouth?Daily at bedtime?TAKE ONE CAPSULE BY MOUTH AT BEDTIME HydrOXYzine (hydrOXYzine hydrochloride 10 mg oral tablet)?1?tab(s)?10?Milligram?By Mouth?2 times a day?TAKE ONE TABLET BY MOUTH IN THE MORNING AND EVENING Insulin Glargine (insulin glargine 100 u/ml subcutaneous solution)?10?unit(s)?SubcutaneousInjection?Daily at bedtime Insulin Lispro (insulin lispro 100 units/mL injectable solution)?6?unit(s)?Subcutaneous Injection?3 times a day before meals Loperamide (loperamide 2 mg oral capsule)?2?Milligram?By Mouth?Every 3 hours?as needed?Loose Stool Metoprolol (Metoprolol Succinate ER 25 mg oral tablet, extended release)?1?tab(s)?25?Milligram?By Mouth?Daily?TAKE ONE TABLET EVERY MORNING Pantoprazole (pantoprazole 20 mg oral delayed release tablet)?20?Milligram?By Mouth?Daily sodium bicarbonate (sodium bicarbonate 650 mg oral tablet)?1?tab(s)?650?Milligram?ByMouth?3 times a day?TAKE ONE TABLET BY MOUTH THREE TIMES DAILY Tacrolimus (tacrolimus 1 mg oral capsule)?2?capsule?2?Milligram?By Mouth?Every 12hours Trazodone (traZODone 50 mg oral tablet)?25?Milligram?0.5?tablet?By Mouth?Daily at bedtime?TAKE 1/2 TABLET AT BEDTIME ? Medications Started Collagenase Topical (collagenase topical 250 u/gm ointment)?See Instructions?apply topically to R BKA BID Medications Discontinued Prednisone Tramadol Doses Changed Insulin Lantus increased to 10 units at bedtime PCP Follow-Up/Heads-Up 1.?Right BKA wound dehiscence status post debridement 03/08,??will continue wound care at home??with services. 2.?A1c 11,??Lantus was increased to 10 units??throughout admission??and will discharge on this??dose.??Continue monitor??glucose??and adjust insulin dosing as needed.? Future Appointments Wednesday 8:45 AM EDT ?? With: Migel PINEDA, Sophie Snow Where: [address] [place] [address]- Status: Pending 2022 2:30 PM EDT ?? With: Kierra LAMB, Chris Avalos Where: [facility] [address] [place] [address]- Status: Pending Hospital Course Tito Richardson is a 57 year old male with PMH of ESRD s/p kidney transplant 2013, HTN, diabetes, PVD,and recent right BKA on 01/25/23 who presented to ED on 03/04 with subjective fever, pain/erythema on surgical site, and new onset back pain. Patient was noted to have right BKA wound dehiscence resulting in infection, and was admitted for further management. He was evaluated by Vascular Surgery and underwent OR debridement on 03/08.?Patient tolerated procedure well,??remained on IV Zosyn 48 hourspostop??with no further??complications. Evaluated by??surgery daily without need for wound VAC??andable to continue wound care??at home.??On the day of discharge, patient was??hemodynamically stableand ready for discharge to home with services. ? #Right BKA wound dehiscence and infection s/p debridement 03/08 #Peripheral vascular disease ??Presenting with pain and erythema at surgical site, after having had many falls ??Also was noted to have drainage ??Evaluated by Vascular Surgery, underwent OR debridement 03/08. Pt had superficial eschar without tract or bone involvement.?BCx 03/04 neg ??Zosyn completed 03/04-03/09 ?? Recommendations: ??-wound care R BKA: collagenase, DSD, kerlix roll ??-Ariadne and elevate left leg for edema control ? 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 Renal function at baseline.? Recommendations: ??-Renal following for tacrolimus dosinmg in AM, 2mg in PM (goal trough 5-8) ??-Continue sodium bicarbonate and calcitriol ?? Insulin-dependent diabetes mellitus??, poorly controlled A1C 11.23 December 2022 did have hypoglycemic episodes initially on admission however has??been??stable on Lantus 10 units??at bedtime throughout hospitalization which??is??increased dose from??home??5 units. ?? Recommendations: Lantus increased to 10 units at bedtime, continue??home sliding scale. Follow-up PCP for further insulin??management. ? Back pain - resolved : MRI negative for epidural abscess. Left leg pain: US negative for DVT HTN, HLD: continue amlodipine, metoprolol, and statin. ? Patient seen and discussed with attending physician, ??Andre ??Katina Mckeon, DO ??Internal Medicine PGY-3 ??Pager #: [phone] ?? Objective Vital Signs?? Temperature: 97.8 DegF (03/11/23 11:00:00) Temperature Route: Temporal (03/11/23 11:00:00) Pulse Rate: 87 bpm (03/11/23 11:00:00) Respiratory Rate: 20 br/min (03/11/23 11:00:00) Systolic Blood Pressure:??139 mm Hg??High (03/11/23 11:00:00) Diastolic Blood Pressure:??89 mm Hg??High (03/11/23 11:00:00) Blood pressure sites: Arm, right (03/11/23 11:00:00) Mean Arterial Pressure: 100 mm Hg (03/11/23 03:47:00) Pulse Pressure: 63 mm Hg (03/11/23 03:47:00) Oxygen Saturation: 99 % (03/11/23 11:00:00) Mode of Delivery (Oxygen): Room air (03/11/23 11:00:00) Early Warning Score: 2 (03/11/23 12:04:13) ? . Physical Exam General:??No acute distress CV:??RRR. S1, S2. No murmurs, rubs, or gallops. Respiratory:??Non-labored respirations. CTA bilaterally.??No wheezes, rales, rhonchi GI:??Bowel sounds present. Soft, non-distended. MSK:??R AKA stump dressed dry intact, prosthesis in place. No lower extremity edema Neuro: AAO x3. Moves all extremities spontaneously Psych:??Affect appropriate Surgical Procedures Debridement Procedure 03/08/2023 11:41 Pending Results Hold Lavender Tube (BB) ordered on 03/04/2023 Tacrolimus Level ordered on 03/08/2023 Type and Screen ordered on 03/07/2023 Patient Education Titles [id number]: Self-Care for Low Blood Sugar (Hypoglycemia)?? Insulin Glargine Injectable Solution?? Preventing A Surgical Site Infection?? Follow-Up Appointments Added Follow Up ?Time Frame ?Comments Zoraida Luo MD?1 week: call to discuss follow up visit Patient Instructions DIAGN??STICOS/TRATAMIENTO: Infecci??n de la herida: se someti?? a un desbridamiento quir??rgico el 18 de sin m??s complicaciones y debe continuar con el cuidado de la herida en casa. ?? MEDICAMENTOS: ?? CAMBIOS DE DOSIS Lantus aument?? a 10 unidades antes de acostarse ? HACER UN SEGUIMIENTO: PCP en 1 a 2 semanas, llame para programar grzegorz osiel. ? Si nota que los s??ntomas empeoran, odalis fiebre, dolor en el pecho, dificultad para respirar, mareos o aturdimiento, busque atenci??n m??dica de inmediato. ??Pablo por permitirnos participar en jaramillo cuidado! ?? --- ? DIAGNOSES/TREATMENT: Wound infection -you underwent surgical debridement on 03/08??with no further complications??and should continue wound care at home ?? MEDICATIONS: ?? DOSE CHANGES Lantus increased to 10 units at bedtime ? FOLLOW UP: PCP in 1-2 weeks, please call to schedule appointment. ? If you notice worsening symptoms, including fevers, chest pain, shortness of breath,??dizziness, lightheadedness??please seek medical attention immediately. Thank you for allowing us to take part in your care! Post Discharge Care Discharge ?03/11/23 13:01:00 EDT Discharge Prescriptions ?ePrescribed, ??03/11/23 13:01:00 EDT Home Health Face to Face *Denotes mandatory oleary ?? *I certify that this patient is under my care and that I or an allowed non- physician working with me had a face to face encounter with the patient on this date:??03/11/2023 13:04 ?? 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 *Select the indications for the discipline/s that are being arranged for this patient. Nursing (select all that apply): [_] None [x_] Medication management (reconciliation, teaching)?? [x_] Chronic disease management?? [x_] Wound care and treatment?? [_] Home safety evaluation [_] Administer SQ/IM/IV medications?? [_] Cath care?? [_] Drain care?? [_] Trach or GT care?? Other _ Occupation Therapy (select all that apply): [_] [...] *Homebound due to (select all that apply): [_x] Inability to leave home without assistance/supervision [_] Inability to ambulate without assistance [_] Pain [x_] Decreased strength and endurance [_] Unsteady gait [_] Severe SOB and fatigue [_] Impaired transfers [_] Inability to negotiate stairs [_] Limited weight bearing [_] Mental status change? *Physician Signature: _Katina Mckeon DO ?? *By signing this, I certify that I have personally evaluated the patient and agree with the findings and recommendations as documented above. ? TF Results Discharge Labs BLOOD BANK Blood Type A Positive ()?? 03/07/2023 11:15 Antibody Screen Negative ()?? 03/07/2023 11:15 ?? BLOOD COUNT & DIFF WBC 5.3 k/mm3 ()?? 03/10/2023 06:18 RBC 3.60 m/mm3 (Low)?? 03/10/2023 06:18 Hgb 10.1 Gm/dL (Low)?? 03/10/2023 06:18 Hct 31.9 % (Low)?? 03/10/2023 06:18 MCV 88.6 femtoliters ()?? 03/10/2023 06:18 MCH 28.1 pg ()?? 03/10/2023 06:18 MCHC 31.7 g/dL (Low)?? 03/10/2023 06:18 Platelet Count 210 k/mm3 ()?? 03/10/2023 06:18 RDW-SD 50.7 femtoliters (High)?? 03/10/2023 06:18 MPV 10.2 femtoliters ()?? 03/10/2023 06:18 Nucleated RBC (Automated) 0.0 #/100 WBC'S ()?? 03/10/2023 06:18 Abs. NRBC 0.0 k/mm3 ()?? 03/10/2023 06:18 Abs. Neut 4.7 k/mm3 ()?? 03/05/2023 05:21 Abs. Lymph 1.6 k/mm3 ()?? 03/05/2023 05:21 Abs. [place] 0.5 k/mm3 ()?? 03/05/2023 05:21 Abs. Eo 0.2 k/mm3 ()?? 03/05/2023 05:21 Abs. Baso 0.0 k/mm3 ()?? 03/05/2023 05:21 Neut % 67.0 % ()?? 03/05/2023 05:21 Lymph % 22.3 % ()?? 03/05/2023 05:21 [place] % 7.6 % ()?? 03/05/2023 05:21 Eos % 2.4 % ()?? 03/05/2023 05:21 Baso % 0.4 % ()?? 03/05/2023 05:21 Imm Gran 0.3 % ()?? 03/05/2023 05:21 Abs. Imm Gran 0.0 k/mm3 ()?? 03/05/2023 05:21 ?? CHEM GENERAL Sodium 137 mmol/L ()?? 03/11/2023 09:51 Potassium 4.6 mmol/L ()?? 03/11/2023 09:51 Chloride 110 mmol/L (High)?? 03/11/2023 09:51 Bicarbonate Level 17 mmol/L (Low)?? 03/11/2023 09:51 Anion Gap 10 ()?? 03/11/2023 09:51 Glucose Level 267 mg/dL (High)?? 03/11/2023 09:51 Glucose, POC 133 mg/dL (High)?? 03/11/2023 10:59 BUN 19 mg/dL ()?? 03/11/2023 09:51 Creatinine-Blood 2.7 mg/dL (High)?? 03/11/2023 09:51 Estimated GFR Creatinine 26 ML/MIN/1.73 M2 ()?? 03/11/2023 09:51 Calcium 8.9 mg/dL ()?? 03/11/2023 09:51 Phosphorus 3.6 mg/dL ()?? 03/08/2023 05:08 Magnesium 1.8 mg/dL ()?? 03/10/2023 06:18 Lactate 2.1 mmol/L ()?? 03/04/2023 07:24 C-Reactive Protein <0.3 mg/dL ()?? 03/04/2023 07:24 ? HEME OTHER Sed Rate 53 mm/hr (High)?? 03/04/2023 07:24 Hold Lavender Top SPECIMEN DISCARDED AFTER 24 HOURS. ()?? 03/11/2023 09:51 Hold Blue Top SPECIMEN DISCARDED AFTER 4 HOURS. ()?? 03/04/2023 07:24 ? MISC. CHEMISTRY Hold Gel Top SPECIMEN DISCARDED AFTER 1 WEEK ()?? 03/07/2023 10:28 ? TOXICOLOGY/TDM Tacrolimus Level 6.0 ng/mL ()?? 03/11/2023 05:25 Vancomycin Level, Trough 11.0 mg/L ()?? 03/08/2023 14:02 ?? UA/URINALYSIS Appear/Color, Urine COLORLESS ()?? 03/07/2023 10:27 Specific [place], Urine 1.005 ()?? 03/07/2023 10:27 pH, Urine 5.0 ()?? 03/07/2023 10:27 Albumin, Urine TRACE (Abnormal)?? 03/07/2023 10:27 Glucose, Urine 3+ (Abnormal)?? 03/07/2023 10:27 Ketones, Urine NEGATIVE ()?? 03/07/2023 10:27 Bilirubin, Urine NEGATIVE ()?? 03/07/2023 10:27 Hemoglobin, Urine NEGATIVE ()?? 03/07/2023 10:27 Nitrite, Urine NEGATIVE ()?? 03/07/2023 10:27 Leukocyte, Urine NEGATIVE ()?? 03/07/2023 10:27 Urobilinogen NORMAL mg/dL ()?? 03/07/2023 10:27 WBC's, Urine 1 /HPF ()?? 03/07/2023 10:27 RBC's, Urine <1 /HPF ()?? 03/07/2023 10:27 Mucus SLIGHT /LPF ()?? 03/07/2023 10:27 ?? URINE OTHER Creatinine, Urine Random 64.7 mg/dL ()?? 03/07/2023 10:27 Sodium, Urine Random 84 mmol/L ()?? 03/07/2023 10:27 Chloride, Urine Random 83 mmol/L ()?? 03/07/2023 10:27 Urea Nitrogen, Urine Random 261.5 mg/dL ()?? 03/07/2023 10:27 Osmolality, Urine Random 342 mOsm/kg ()?? 03/07/2023 10:27 Protein, Total Urine Random 12 mg/dL ()?? 03/07/2023 10:27 TP/Cr Ratio 0.19 ()?? 03/07/2023 10:27 Creatinine, Urine 64.7 mg/dL ()?? 03/07/2023 10:27 Malb/Creat Ratio Unable to calculate mg/Gm ()?? 03/07/2023 10:27 Urine Creat For Micro Alb 64.7 mg/dL ()?? 03/07/2023 10:27 Micro-Albumin <12.0 mg/L ()?? 03/07/2023 10:27 Est Creatinine Clearance 24.29 mL/min ()?? 03/11/2023 11:06 ?? VIROLOGY COVID-19 by RT-PCR NEGATIVE ()?? 03/04/2023 09:13 ? Procedures(s) ?Operative Note ?? 03/08/2023 11:56??by Abdiel Roca MD ?Indication for Surgery Nonhealing right below the knee amputation ?? Preoperative Diagnosis Same with skin and subcutaneous necrosis after trauma in the lateral aspect of the right BKA ?? Postoperative Diagnosis Nonhealing right below-knee amputation with superficial skin and subcutaneous necrosis on the lateral portion ?? Operation Debridement excisional right lateral below-knee amputation site including skin subcutaneous tissue and tendon 4 x 6 cm ?? Surgeon(s) Abdiel Roca MD (Primary Surgeon) ?? Remedial Teacher Parveen Londono MD ?? Anesthesia General Anesthesia ??Cam Beverly MD (Att Anesthesiologist) ??Jessica Landry CRNA (GEOLOGIST PETROLEUM) ?? Estimated Blood Loss Minimal ?? Findings Skin and subcutaneous tissue necrosis but no sign of any deep or necrotic tissue ?? Specimen(s) None ?? Complications None ?? Technique Patient taken the operating place upon the table administered appropriate general endotracheal anesthesia careful hemodynamic monitoring support appropriate she is obtain properly positioned supine the table attention paid to pressure points the right leg is prepped entirely with beta scrub Betadine paint up to above the knee and draped in the normal sterile manner. Timeout performed and completed. ??We utilized sharp dissection to remove the extensive eschar on the medial and lateral portion of the right below-knee amputation site. Removed all of the remaining cruzito and sutures. The medial portion of the wound remains intact and is epithelialized and healing well. Laterally the eschar and subcutaneous fat necrosis extends over about a 4 x 6 mm area its only about 4 5 mm deep all of this skin was sharply debrided back to more clean viable skin and subcutaneous tissue. Some of the tendons laterally were sharply excised and removed. We irrigated the wound clean viable tissue remains it is packed with saline soaked gauze dry gauze Kerlix and Ariadne wrap Ariadne compression wrap. Patient extubated and taken to postanesthesia care in stable condition. ? Images ?? Plan for continue daily dressing changes will resume the IV antibiotics over the next 48 hours and convert to wound VAC negative pressure wound therapy within the next couple days ? Imaging(s) ?MRI Lumbar Spine W+W/O Contrast ?? 03/04/2023 13:45??by Mirna Pratt MD ?1. No evidence of epidural abscess/phlegmon, discitis/osteomyelitis, or other signs of infection in the lumbar spine. 2. Scattered degenerative changes of the lumbar spine as detailed above. No high-grade central stenosis. Neural foraminal narrowing is greatest on the right at L5-S1 (severe), with compression of theexiting right L5 nerve root. 3. Localizer images of the cervical and thoracic spine demonstrate no areas of bony destruction, but degenerative disc bulges at C3-4, C4-5, and C5-6 result in at least moderate to severe central stenosis at these levels, roughly similar to prior CT neck. ?Knee 1 or 2 Views Right ?? 03/04/2023 10:33??by Louise SEVERINO, Franco V ?No acute bony abnormality. ?US Doppler Ext Lower Venous Left ?? 03/04/2023 14:38??by Odin Montalvo MD ?No evidence of deep venous thrombosis. ? 35??minutes spent on discharge * Kvng Powell MD: PERFORM Event Display: Discharge/Transfer Note Hospital Authored Date: Attending Attestation (Kvng Powell M.D.) 87-year-old man with ESRD status post kidney transplant (2013) with resulting CKD 4, insulin-dependent type 2 diabetes, peripheral vascular disease, recent right BKA (01/25/2023) who presented with subjective fever, pain at right BKA site and new onset back pain found to have right BKA wound dehiscence status post or debridement (03/08) course complicated by acute renal failure on chronic kidney disease. ?? Diagnoses: Kidney transplant recipient Immunosuppression Acute renal failure on chronic kidney disease 4 Peripheral vascular disease Insulin-dependent type 2 diabetes Right BKA Right BKA wound dehiscence Primary hyperparathyroidism Status post parathyroidectomy ?? Vitals reviewed and significant for Hypertension (124-151mmHg) and otherwise unremarkable. Labwork reviewed and significant for Normocytic anemia, Elevated blood urea nitrogen (BUN) levels and Elevated creatinine levels??with CBC and BMP otherwise unremarkable. ?? Recommendations: - Follow-up with PCP in 3-5 days - Lantus increased 10U.?? PCP to follow-up for titration ?? PCP to repeat the following labwork at the next PCP appointment in 3-5 days: BMP. ?? I evaluated the patient on date of service 03/11/2023. I saw and evaluated this patient with Dr. Mckeon and agree with the resident???s findings and plan of care as documented by the resident or edited by me. I spent??37??minutes on the following:??preparing to see the patient (eg, review of tests), obtaining and/or reviewing separately obtained history, performing a medically appropriate examination and/or evaluation and counseling and educating the patient/family/caregiver ?? * Parent Svetlana ESPAÑA: PERFORM, SIGN, VERIFY Event Display: Case Management Discharge Plan Authored Date: [id number] Patient: TITO RICHARDSON Age: 57 years Sex: Male : 1965 Associated Diagnoses: None Author: Parent Svetlana ESPAÑA Discharge Plan Case Management Discharge Plan : Case Management Discharge Plan Data 03/11/2023 11:30 EDT Discharge Level of Care at Discharge Homehealth/VNA Discharge [facility] Name of Agency [facility]1 [facility] Care Service Categories #1 [facility], Wound Care Service Comments #1 Someone from [facility] will be calling you in 1-2 days after discharge. If you do not hear from them please give them a call. Name of Person Notified of Transfer Patient * Onelia Lopez RN: PERFORM Event Display: Patient Education/Instruction Authored Date: [id number] Inpatient Adult Discharge Instructions [address] [address] Name: TITO RICHARDSON : 1965 Visit: 03/04/2023 13:34:00 Current Date: 03/11/2023 14:39 Account: [id number] Inpatient Adult Discharge Instructions We would like [...] and their families. Surveys are administered by [employer] ?? If further treatment with your primary care physician or another doctor is recommended, it is important for you to keep the appointment. Call your primary care physician or return to the Emergency Department immediately if your condition worsens, fails to improve, or new symptoms develop. If you need to find a doctor, you can call [facility] for a referral at [phone] or toll free at [phone]) or log in to [email or web address] ?? [facility] Use It Better, in keeping with [facility] guidance, no longer requires face masks for staff, patientsor visitors in most situations. Similiar to time spent indoors at other locations, there is the chance that you were exposed to repiratory viruses during your time with us (such as flu or COVID-19). If you develop symptoms concerning for a viral respiratory infection, please seek testing (and treatment if indicated) from your medical provider or home test kit. ?? You can view and manage your care through the patient portal or by using a health care niraj of your choosing. [employer] is a website that allows you to securely view your medical information including your hospital discharge summary, office visit summaries, medications and follow-up visits. You can also request appointments, renew medications, and request access to your medical information using a health care niraj of your choosing, or just ask a question. You can enroll at [email or web address] or register during your next office visit. You have been discharged from [facility], Patient Care Unit: S3. If you have any questions regarding these instructions after you leave, please call us and we will be happy to assist you. [facility] Your Care Team Attending Physician Andre SEVERINO, Kvng Consulting Providers Harley SEVERINO, Nik Chávez MD, Ana; Jordy SEVERINO, Issa Saini; Abelino SEVERINO, Abdiel Walsh; Isabela Caldera Discharging Providers Katina Mckeon DO Reason for Admission Drainage and bad odor coming from recent right BKA site Your Diagnosis Right BKA infection Hypoglycemia Back pain Insulin dependent type 2 diabetes mellitus Uncontrolled diabetes mellitus with hyperglycemia Tests Performed Below is a partial list of the tests performed during your hospitalization. You may have had other tests and procedures not included in this list. Please discuss all test results with your provider. Basic Metabolic Panel CBC CBC w/ Differential Chloride Urine Complete Urinalysis COVID-19 (Novel Coronavirus), Rapid PCR Creatinine Urine CRP ESR GLUCOSE POC Hold Blue Top Tube HOLD GEL TUBE HOLD LAVENDER TUBE Lactic Acid Level Magnesium Level Microalbumin Urine Osmolality Urine Phosphorus Level Protein/Creatinine Ratio Urine Sodium Urine Tacrolimus Level UREA NITROGEN, URINE MG/DL Vancomycin Trough MRI Lumbar Spine W+W/O Contrast US Doppler Ext Lower Venous Left XR Knee 1 or 2 Views Right Primary Care Provider Zoraida Luo MD Advance Directive Health Care Proxy on File Yes - Health Care Proxy Discharge Vitals Temperature: 97.7 DegF Height: 160 cm Pulse Rate: 85 bpm Weight: 69.1 kg Respiratory Rate: 18 br/min Body Mass Index:??26.99 kg/m2??High Systolic Blood Pressure: 124 mm Hg Body surface area: 1.75 Diastolic Blood Pressure: 80 mm Hg ?? Oxygen Saturation: 99 % ?? Studies Pending All tests and labs ordered during this hospital stay have been completed unless listed below. Please discuss all pending results with your provider listed above in these instructions. ?? Hold Lavender Tube (BB) Tacrolimus Level Type and Screen What to do next Instructions From Your Doctor DIAGN??STICOS/TRATAMIENTO: Infecci??n de la herida: se someti?? a un desbridamiento quir??rgico el sin m??s complicaciones y debe continuar con el cuidado de la herida en casa. ?? MEDICAMENTOS: ?? CAMBIOS DE DOSIS Lantus aument?? a 10 unidades antes de acostarse ? HACER UN SEGUIMIENTO: PCP en 1 a 2 semanas, llame para programar grzegorz osiel. ? Si nota que los s??ntomas empeoran, odalis fiebre, dolor en el pecho, dificultad para respirar, mareos o aturdimiento, busque atenci??n m??dica de inmediato. ??Pablo por permitirnos participar en jaramillo cuidado! ?? --- ? DIAGNOSES/TREATMENT: Wound infection -you underwent surgical debridement on 03/08??with no further complications??and should continue wound care at home ?? MEDICATIONS: ?? DOSE CHANGES Lantus increased to 10 units at bedtime ? FOLLOW UP: PCP in 1-2 weeks, please call to schedule appointment. ? If you notice worsening symptoms, including fevers, chest pain, shortness of breath,??dizziness, lightheadedness??please seek medical attention immediately. Thank you for allowing us to take part in your care! Discharge Orders Scheduled Follow-Up Appointments Ginny Sep. 26, 2023 8:45 AM EDT ?? With: Migel PINEDA, Sophie Snow Where: [address] [place] [address]- Status: Pending 2022 2:30 PM EDT ?? With: Kierra LAMB, Chris Avalos Where: [facility] [address] [place] [address]- Status: Pending You Need to Schedule the Following Appointments Follow Up with??Zoraida Luo MD When:??Within 1 week: call to discuss follow up visit Where: [address] [place] [id number]- Discharge Medications TITO RICHARDSON :1965 Visit Date:03/04/2023 Medications: Please continue your medications until treatment is completed or stopped by your provider. Medications not listed below should be discontinued. Discuss any questions related to medications with your provider. What How Much When Instructions Next Dose New Collagenase Topical (collagenase topical 250 u/ gm ointment) See instructions apply topically to R BKA BID ?? Pickup at [facility] 03/11 PM Changed Albuterol (albuterol 0.083% inhalation solution) 3 Milliliter Inhalation Every 6 hours as needed for for wheezing NEEDED Changed Amlodipine (amLODIPine 5 mg oral tablet) 1 tab(s) Oral Daily TAKE ONE TABLET EVERY MORNING ?? 03/12 am Changed Aspirin (aspirin 81 mg oral delayed release tablet) 81 Milligram Oral Daily 03/12 am Changed Atorvastatin (atorvastatin 10 mg oral tablet) 1 tab(s) Oral Daily TAKE ONE TABLET EVERY MORNING ?? 03/12 am Changed Calcitriol (calcitriol 0.5 mcg oral capsule) 1 capsule Oral Daily TAKE ONE CAPSULE EVERY MORNING ?? 03/12 am Changed Gabapentin (gabapentin 100 mg oral capsule) 1 capsule Oral Daily at Bedtime TAKE ONE CAPSULE BY MOUTH AT BEDTIME ?? 03/11 BEDTIM Changed Insulin Glargine (insulin glargine 100 u/ ml subcutaneous solution) 10 unit(s) Subcutaneous Injection Daily at Bedtime Pickup at [facility] 03/11 pm Changed Loperamide (loperamide 2 mg oral capsule) 2 Milligram Oral Every 3 hours as needed for Loose Stool NEEDED Changed Pantoprazole (pantoprazole 20 mg oral delayed release tablet) 20 Milligram Oral Daily 03/12 am Changed Tacrolimus (tacrolimus 1 mg oral capsule) 2 capsule Oral Every 12 hours 03/11 pm Changed Trazodone (traZODone 50 mg oral tablet) 0.5 tab(s) Oral Daily at Bedtime TAKE 1/ 2 TABLET AT BEDTIME ?? 03/11 bEDTIME Unchanged Acetaminophen (acetaminophen 500 mg oral tablet) 1 tab(s) Oral Every 4 hours as needed for as needed for fever NEEDED Unchanged Ferrous Sulfate (ferrous sulfate 325 mg oral enteric coated tablet) 325 Milligram Oral Daily 03/12 am Unchanged HydrOXYzine (hydrOXYzine hydrochloride 10 mg oral tablet) 1 tab(s) Oral Twice a day TAKE ONE TABLET BY MOUTH IN THE MORNING AND EVENING ?? 03/11 EVENIN Unchanged Insulin Lispro (insulin lispro 100 units/ mL injectable solution) 6 unit(s) Subcutaneous Injection 3 times a day before meals WITH DINNER Unchanged Metoprolol (Metoprolol Succinate ER 25 mg oral tablet, extended release) 1 tab(s) Oral Daily TAKE ONE TABLET EVERY MORNING ?? 03/12 am Unchanged sodium bicarbonate (sodium bicarbonate 650 mg oral tablet) 1 tab(s) Oral 3 times a day TAKE ONE TABLET BY MOUTH THREE TIMES DAILY ?? WITH DINNER Pharmacy Information [facility]: [address] [place] [address] [phone] ?? What How Much When Comments Stop Taking Cephalexin (cephalexin monohydrate 750 mg oral capsule) 1 capsule Oral Every 12 hours Duration: 14 Days Stop Taking Cholecalciferol (Vitamin D3 50,000 intl units oral capsule) 1 capsule Oral Every week Stop Taking Duloxetine (duloxetine 20 mg oral enteric coated capsule) 1 capsule Oral Daily Stop Taking Ergocalciferol (ergocalciferol 04326 iu oral capsule) 1 capsule Oral Every week Duration: 30 Days Stop Taking Famotidine (famotidine 40 mg oral tablet) 1 tab(s) Oral Daily at Bedtime Stop Taking Insulin Aspart (Insulin Aspart FlexPen 100 units/ mL injectable solution) 10 unit(s) Subcutaneous Injection 3 times a day before meals INJECT 9 UNITS SUBCUTANEOUSLY WITH BREAKFAST, 9 UNITS SUBCUTANEOUSLY WITH LUNCH AND 7 UNITS SUBCUTANEOUSLY WITH DINNER ?? Stop Taking Levothyroxine (levothyroxine 0.025 mg oral tablet) 2 tab(s) Oral Daily Stop Taking Lidocaine Topical (lidocaine 5% topical film) 1 patch(es) Topically Daily as needed for Pain , Mild remove after 12 hours ?? Stop Taking Lidocaine Topical (lidocaine 5% topical film) 1 patch(es) Topically Daily as needed for Pain , Mild remove after 12 hours ?? Stop Taking Metoclopramide (metoclopramide 10 mg oral tablet) 1 tab(s) Oral Every 6 hours Stop Taking Mupirocin Topical (mupirocin 2% topical ointment) 1 niraj Topically 3 times a day Stop Taking NIFEdipine (NIFEdipine (Eqv-Adalat CC) 30 mg oral tablet, extended release) 1 tab(s) Oral Daily Duration: 30 Days Stop Taking PEG Electrolyte Solution (PEG-3350 with Electrolytes (Eqv-NuLYTELY) oral powder for reconstitution) See instructions as directed ?? Stop Taking PredniSONE (predniSONE 10 mg oral tablet) 1 tab(s) Oral Daily Stop Taking PredniSONE (predniSONE 5 mg oral tablet) 1 tab(s) Oral Daily Stop Taking Tamsulosin (tamsulosin 0.4 mg oral capsule) 1 capsule Oral Daily at Bedtime Stop Taking Tramadol (traMADol 50 mg oral tablet) 1 tab(s) Oral Every 12 hours as needed for as needed for pain Test Results Below is a partial list of the most recent Laboratory test results done prior to this discharge. You may have had other tests and procedures not included in this list. Please discuss all test resultswith your provider. Antibody Screen - Negative (03/07/2023) Blood Type - A Positive (03/07/2023) Est Creatinine Clearance - 24.29 mL/min (03/11/2023) Basic Metabolic Panel (03/11/2023) ???Sodium - 137 mmol/L???Potassium - 4.6 mmol/L???Chloride - 110 mmol/L???Bicarbonate Level - 17 mmol/L???Anion Gap - 10???Glucose Level - 267 mg/dL???BUN - 19 mg/dL???Creatinine-Blood - 2.7 mg/dL???Estimated GFR Creatinine - 26 ML/MIN/1.73 M2???Calcium - 8.9 mg/dL CBC (03/10/2023) ???WBC - 5.3 k/mm3???RBC - 3.60 m/mm3???Hgb - 10.1 Gm/dL???Hct - 31.9 %???MCV - 88.6 femtoliters???MCH - 28.1 pg???MCHC - 31.7 g/dL???Platelet Count - 210 k/mm3???RDW-SD - 50.7 femtoliters???MPV - 10.2 femtoliters???Nucleated RBC (Automated) - 0.0 #/100 WBC'S???Abs. NRBC - 0.0 k/mm3 CBC w/ Differential (03/05/2023) ???WBC - 7.0 k/mm3???RBC - 3.31 m/mm3???Hgb - 9.4 Gm/dL???Hct - 29.6 %???MCV - 89.4 femtoliters???MCH - 28.4 pg???MCHC - 31.8 g/dL???Platelet Count - 240 k/mm3???RDW-SD - 53.6 femtoliters???MPV - 10.8 femtoliters???Nucleated RBC (Automated) - 0.0 #/100 WBC'S???Abs. NRBC - 0.0 k/mm3???Abs. Neut - 4.7 k/mm3???Abs. Lymph - 1.6 k/mm3???Abs. [place] - 0.5 k/mm3???Abs. Eo - 0.2 k/mm3???Abs. Baso - 0.0 k/mm3???Neut % - 67.0 %???Lymph % - 22.3 %???[place] % - 7.6 %???Eos % - 2.4 %???Baso % - 0.4 %???Imm Gran- 0.3 %???Abs. Imm Gran - 0.0 k/mm3 Chloride Urine (03/07/2023) ???Chloride, Urine Random - 83 mmol/L Complete Urinalysis (03/07/2023) ???Appear/Color, Urine - COLORLESS???Specific [place], Urine - 1.005???pH, Urine - 5.0???Albumin, Urine - TRACE???Glucose, Urine - 3+???Ketones, Urine - NEGATIVE???Bilirubin, Urine - NEGATIVE???Hemoglobin, Urine - NEGATIVE???Nitrite, Urine - NEGATIVE???Leukocyte, Urine - NEGATIVE???Urobilinogen - NORMAL? ?WBC's, Urine - 1 /HPF? ?RBC's, Urine - <1 /HPF? ?Mucus - SLIGHT COVID-19 (Novel Coronavirus), Rapid PCR (03/04/2023) ???COVID-19 by RT-PCR - NEGATIVE Creatinine Urine (03/07/2023) ???Creatinine, Urine Random - 64.7 mg/dL CRP (03/04/2023) ? ?C-Reactive Protein - <0.3 mg/dL ESR (03/04/2023) ???Sed Rate - 53 mm/hr GLUCOSE POC (03/11/2023) ???Glucose, POC - 133 mg/dL Hold Blue Top Tube (03/04/2023) ???Hold Blue Top - SPECIMEN DISCARDED AFTER 4 HOURS. HOLD GEL TUBE (03/07/2023) ???Hold Gel Top - SPECIMEN DISCARDED AFTER 1 WEEK HOLD LAVENDER TUBE (03/11/2023) ???Hold Lavender Top - SPECIMEN DISCARDED AFTER 24 HOURS. Lactic Acid Level (03/04/2023) ???Lactate - 2.1 mmol/L Magnesium Level (03/10/2023) ???Magnesium - 1.8 mg/dL Microalbumin Urine (03/07/2023) ???Malb/Creat Ratio - Unable to calculate???Urine Creat For Micro Alb - 64.7 mg/dL???Micro-Albumin - <12.0 mg/L Osmolality Urine (03/07/2023) ???Osmolality, Urine Random - 342 mOsm/kg Phosphorus Level (03/08/2023) ???Phosphorus - 3.6 mg/dL Protein/Creatinine Ratio Urine (03/07/2023) ???Protein, Total Urine Random - 12 mg/dL???TP/Cr Ratio - 0.19???Creatinine, Urine - 64.7 mg/dL Sodium Urine (03/07/2023) ???Sodium, Urine Random - 84 mmol/L Tacrolimus Level (03/11/2023) ???Tacrolimus Level - 6.0 ng/mL UREA NITROGEN, URINE MG/DL (03/07/2023) ???Urea Nitrogen, Urine Random - 261.5 mg/dL Vancomycin Trough (03/08/2023) ???Vancomycin Level, Trough - 11.0 mg/L Allergies (NKA means No Known Allergies) Benadryl??(itching) [...] Educational Leaflet Providered with your Discharge Instructions. [id number]: Self-Care for Low Blood Sugar (Hypoglycemia)?? Insulin Glargine Injectable Solution?? Preventing A Surgical Site Infection?? Valuables and Belongings I fully understand and agree that [facility] accepts no responsibility for all my [...] witness Date for Pt to Sign Valuables/Belongings: 03/11/23 14:01:00 ?? Other Discharge Information ?? Wound Assessment?? Wound Assessment?? Wound Location I: Leg, right lower Wound Type I: Non Pressure/Full Thickness ?? Case Management Discharge Plan?? Discharge Plan?? Discharge Agency Information?? Discharge Level of Care at Discharge: Homehealth/VNA Name of Agency #1: [facility] Care Discharge Nursing Homes/Rehab Facilities: [facility] ??[place] Service Categories #1: [facility], Wound Care Discharge VNA/Hospice/Home Care: [facility] Service Comments #1: Someone from [facility] will be calling you in 1-2 days after discharge. If you do not hear from them please give them a call. ?? Name of Person Notified of Transfer: Patient ?? Pulmonary Rehab Status?? Pulmonary Rehab Discharge [...] are strongly encouraged to quit. Please call [facility] Use It Better Link at [phone] or [phone]-[employer] ([phone]) or log in to [email or web address] for referrals to smoking cessation programs. ?? 354 Suicide & Crisis Lifeline is available 11/01 if you or someone you know needs to find a reason to keep living. By calling 493 you'll be connected to a skilled, trained counselor at a crisis center in your area. INPATIENT DISCHARGE INSTRUCTIONS SIGNATURE PAGE TITO RICHARDSON Location:[facility] Registration Date and Time:03/04/2023 13:34 EDT Primary Care Physician: Zoraida Luo MD, Attending Physician: Kvng Powell MD, I TITO RICHARDSON, have received the above patient education materials/instructions and have verbalized understanding. If ambulance or transport services are being used I further acknowledge being given a choice of service. ?? If you need to contact me, please call me at this number: . Patient/Statement Processor Name: Patient/Statement Processor Signature: Relationship to Patient: Witness Name/Signature: Date: * Katina Mckeon DO: PERFORM Event Display: Patient Education Leaflets Authored Date: [id number]: Self-Care for Low Blood Sugar (Hypoglycemia) ?? Paso a Paso: Autocuidado de Nivel Bajo de Az??car (Hipoglicemia) - Video To view the video go to this web address: [email or web address] Or, scan this QR code with your smart phone Last Reviewed Date: 2020 ?? [employer]. All rights reserved. This information is not intended as a substitute for professional medical care. Always follow your healthcare professional's instructions. ?? * Katina Mckeon DO: PERFORM Event Display: Patient Education Leaflets Authored Date: [id number] Insulin Glargine Injectable Solution ?? [id number] Insulin Glargine Injectable Solution Brands: Lantus, Semglee Usos Para la diabetes. ?? Instrucciones Barb medicamento es para inyectar debajo de la piel. P??macario al m??dico, la enfermera o el farmac??utico que le muestren los lugares correctos del cuerpo donde puede inyectarse barb medicamento. Esta insulina debe usarse grzegorz vez al d??a. ??miley a la misma hora todos los d??as. No es necesario mezclar la insulina antes de usarla. Esta insulina debe ser transparente e incolora. No la use si observa que tiene alguna coloraci??n, est?? espesa o contiene part??culas. Guarde los frascos de insulina que no utiliza en el refrigerador hasta el momento de usarlos. No los congele. Retire el medicamento del refrigerador cuando usted est?? listo para usarlo. No vuelva a colocar el medicamento en el refrigerador despu??s de empezar a usarlo. Deseche el frasco 28 d??as despu??s de retirarlo del refrigerador, aunque todav??a quede insulina en ??aron. Deseche la insulina si se congel??. Mantenga la insulina que est?? usando a temperatura ambiente y en un lugar oscuro y fresco. Desechela insulina si estuvo expuesta a grzegorz temperatura mayor que 86 ??F (30 ??C). Nunca use insulina vencida. Ebenezer??alka. Esta insulina no debe mezclarse con otras insulinas. No lo inyecte en piel que se haya engrosado, o que tenga bultos o depresiones. Apl??quese la inyecci??n en un lugar diferente cada vez. Escoja un sitio odalis m??waylon a 1 pulgada (2,54 cm) del sitio de la ??ltima inyecci??n. No fregar ni masajear el ??ivory en que se aplica la inyecci??n. Informe a jaramillo m??dico y a jaramillo farmac??utico acerca de todos los medicamentos que usa. [place] incluye medicamentos con y sin receta m??dica, vitaminas y medicamentos a base de hierbas. Antes de utilizar insulina, jaramillo m??dico o un educador certificado en diabetes debe ense??arle a hacerlo. Siga las instrucciones atentamente. Si no le ense??wes c??mo hacerlo, hable con jaramillo m??dico antes de usar barb medicamento. Siga el plan de comidas y ejercicio regular recomendado por el m??dico. Es muy importante que use barb medicamento todos los d??as y que no deje de aplicarse ninguna dosisde insulina. Hable con el m??dico para que le indique qu?? debe hacer en shyla de que olvide aplicarse grzegorz dosis de insulina. ?? Precauciones Informe a jaramillo m??dico y a jaramillo farmac??utico si alguna vez gagnon tenido grzegorz reacci??n al??rgica a un medicamento. Controle el az??car en chapo seg??n las indicaciones de jaramillo m??dico. Ajuste la cantidad de insulina ??nicamente seg??n la recomendaci??n de jaramillo m??dico. Barb medicamento puede afectar jaramillo capacidad de mantenerse alerta o de reaccionar con rapidez. No maneje ni opere m??quinas hasta que sepa qu?? efecto le provocar?? barb medicamento. Consulte a jaramillo m??dico antes de beber alcohol mientras usa barb medicamento. Informe a jaramillo m??dico o farmac??utico si est?? o planea quedar embarazada, o si est?? amamantando. Si tiene diabetes, lleve siempre grzegorz tarjeta de identificaci??n o use un brazalete de alerta m??dica. Lleve siempre tabletas de glucosa o caramelos por si le llegara a bajar el az??car a causa de la insulina. Entre los s??ntomas de bajo nivel de az??car en la hcapo se incluyen: n??useas, temblores, piel fr??a, sudoraci??n, latido acelerado, hambre e irritabilidad. No empiece ni deje de lesli otros medicamentos sin hablar fer con el m??dico o farmac??utico. Pregunte a jaramillo farmac??utico c??mo desechar correctamente las agujas o las jeringas. ?? Efectos Secundarios La siguiente es grzegorz lista de algunos efectos secundarios comunes de barb medicamento. Hable con el m??dico para saber qu?? debe hacer en shyla de tener estos u otros efectos secundarios. ??? hinchaz??n de las piernas, pies y nimesh ??? dolor, enrojecimiento, hinchaz??n cerca del sitio de la inyecci??n ??? aumento de peso Llame al m??dico u obtenga atenci??n m??dica de inmediato si nota cualquiera de estos efectos secundarios m??s graves: ??? mareos ??? adormecimiento u hormigueo en las nimseh y los pies ??? baja az??car en la chapo ???calambres o debilidad muscular ??? latidos r??pidos del coraz??n ??? temblores ??? sudoraci??n ??? visi??n borrosa o cambios en la visi??n Algunas personas podr??an tener reacciones al??rgicas a barb medicamento. Entre los s??ntomas pueden incluirse: dificultad para respirar, erupci??n en la piel, comez??n, hinchaz??n o mareos intensos.Si nota algunos de estos s??ntomas, busque asistencia m??dica r??pidamente. ?? Extra Hable con jaramillo m??dico, enfermero o farmac??utico si tiene alguna pregunta acerca de barb medicamento. ?? [email or web address] NOTA IMPORTANTE: En barb documento hay grzegorz explicaci??n breve sobre c??mo usar el medicamento, perono incluye todo lo que hay que saber acerca del medicamento. Jaramillo m??dico o jaramillo farmac??utico podr??a suministrarle otros documentos acerca de jaramillo medicamento. Comun??quese con ellos si tiene alguna pregunta. Siga siempre rosemary consejos. Grzegorz descripci??n m??s completa de barb medicamento est?? disponibleen ingl??s. Escanee barb c??digo en jaramillo tel??fono inteligente o en jaramillo tableta, o use la direcci??n web que aparece a continuaci??n. Tambi??n puede pedirle a jaramillo farmac??utico grzegorz copia impresa. Si tiene alguna pregunta, h??gasela a jaramillo farmac??utico. La exhibici??n y el uso de esta informaci??n sobre f??rmacos est?? sujeta a los T??rminos de Uso. Copyright(c) 2022 [employer]. ?? 9818-5195 [employer]. All rights reserved. This information is not intended as a substitute for professional medical care. Always follow your healthcare professional's instructions. ?? * Katina Mckeon DO: PERFORM Event Display: Patient Education Leaflets Authored Date: [id number] Preventing A Surgical Site Infection ?? [address]759 Prevenci??n de infecciones en el sitio quir??rgico Un riesgo de someterse a grzegorz cirug??a es tener grzegorz infecci??n en el sitio quir??rgico. El sitio quir??rgico es cualquier aminah que realiza el cirujano en la piel para llevar a cabo la operaci??n. Lasinfecciones en el sitio quir??rgico pueden variar de infecciones leves en la piel hasta infeccionesgraves o incluso mortales que incluyen el tejido debajo de la piel o los ??rganos. En esta hoja, encontrar?? m??s informaci??n sobre las infecciones en el sitio quir??rgico, qu?? hacen los hospitalespara prevenirlas y c??mo se tratan si se presentan. Tambi??n le explicar?? lo que usted puede hacerpara prevenir estas infecciones. Lavarse las nimesh ayuda a reducir el riesgo de infecci??n. ??Qu?? causa infecciones en el sitio quir??rgico? Los g??rmenes se encuentran en todas partes. Est??n debajo de la piel, en el aire y en los objetos que tocamos. Muchos de los g??rmenes son buenos, bala otros son da??inos. Las infecciones en el sitio quir??rgico ocurren cuando g??rmenes da??inos ingresan a jaramillo cuerpo mediante la incisi??n de la piel. Algunas infecciones son causadas por g??rmenes que se encuentran en el aire o en objetos. Sin embargo, la mayor??a est??n causadas por g??rmenes que se encuentran en jaramillo propio cuerpo. ?Javier??n corre riesgo de contraer infecciones en el sitio quir??rgico? Cualquier persona puede sufrir grzegorz infecci??n en el sitio quir??rgico. Sin embargo, el riesgo es mayor si usted: ??? es un adulto mayor; ??? tiene un sistema inmunol??gico debilitado u otras afecciones de carlin, o enfermedades odalis diabetes; ??? becka determinados medicamentos, odalis los esteroides; ??? es fumador; ??? se someti?? a determinados tipos de operaciones, odalis cirug??a abdominal; ??? tiene grzegorz trevor nutrici??n; ??? tiene mucho sobrepeso; ??? se somete a grzegorz operaci??n que dura m??s de 2??horas. ?Cu??les son los s??ntomas de grzegorz infecci??n en el sitio quir??rgico? La infecci??n suele comenzar con un mayor enrojecimiento de la piel, dolor e inflamaci??n alrededor de la incisi??n. Luego, es posible que detecte grzegorz secreci??n turbia de color amarillo verdoso de la incisi??n, que puede tener mal olor. Es posible que la incisi??n se separe o se shayne. Tambi??n puede tener fiebre o sentirse muy enfermo. ??? Los s??ntomas pueden aparecer horas o semanas despu??s de la cirug??a. Los implantes, odalis rodillas y caderas artificiales, pueden infectarse en cualquier momento despu??s de la operaci??n. ?C??mo se tratan las infecciones en el sitio quir??rgico? Las infecciones en el sitio quir??rgico se tratan con antibi??ticos. El tipo de medicamento que le administren depender?? del germen queel m??dico considera que est?? causando la infecci??n. Las infecciones m??s graves en heridas requieren cuidados locales en la herida y, en algunos casos, otras cirug??as. ??? Es posible que vuelvan a abrirle grzegorz herida infectada en la piel para limpiarla. A veces se coloca gasa dentro de las heridas profundas; esta se cambia con frecuencia hasta que la herida comienza a sanar de adentro hacia afuera. Jaramillo proveedor de atenci??n m??dica evaluar?? el tipo de cuidado necesario para tratar jaramillo infecci??n en el sitio quir??rgico. ??? Si ocurre grzegorz infecci??n en la bailey en donde se coloc?? un implante, es posible que deban quitar el implante. ??? Si tiene grzegorz infecci??n m??s profunda en jaramillo cuerpo, es posible que necesite otra cirug??a para tratarla. ?Qu?? hacen los hospitales para prevenir infecciones en el sitio quir??rgico? Para prevenir infecciones en el sitio quir??rgico, muchos hospitales carey las medidas siguientes: ??? Lavado de las nimesh.??Antes de la operaci??n, el cirujano y todo el personal del quir??fano se lavan amena las nimesh y los brazos frot??ndoselos con jab??n antis??ptico. ??? Limpieza de la piel.??La bailey en donde se realizar?? la incisi??n se limpia cuidadosamente con grzegorz soluci??n antis??ptica. ??? Ropa y pa??os est??dilshad.??El equipo del quir??fano usa uniformes m??dicos (ropa desechable), batas quir??rgicas de mangas largas, mascarillas, gorros, cobertores de zapatos y guantes est??dilshad. Le cubrir??n el cuerpo por completo con grzegorz s??bana jorje est??ril (pa??o est??ril), excepto en la bailey en donde se realiza la incisi??n. ??? Aire limpio.??Los quir??fanos tienen filtros de aire especiales y presi??n de aire positiva para evitar que ingrese aire sin filtrar. ??? [place] responsable de los antibi??ticos.??Los antibi??ticos se administran en un per??odo de no m??s de 60??minutos antes de realizar la incisi??n y generalmente se interrumpen al cabo de 24??horas despu??s de la cirug??a,seg??n el tipo de cirug??a. [place] ayuda a matar g??rmenes bala previene problemas que puedan ocurrircuando se administran antibi??ticos por m??s tiempo. ??? Niveles controlados de az??car en la chapo.??Jaramillo nivel de az??car en la chapo puede aumentar debido al estr??s de la cirug??a. Le vigilar??n de cerca jaramillo nivel de az??car en la chapo para garantizar que se mantenga dentro del rango normal. Un nivel alto de az??car en la chapo retrasa la cicatrizaci??n de heridas y aumenta las posibilidades de sufrir grzegorz infecci??n. ??? Temperatura corporal controlada. Tener temperatura m??s baja de lo normal despu??s de la cirug??a impide que el ox??jovanni llegue a la herida y hace que a jaramillo cuerpo le resulte dif??cil combatir las infecciones. Los hospitales pueden calentar los l??quidos que se administran por v??a intravenosa, aumentar la temperatura en el quir??fano y proporcionar mantas de aire caliente. ??? Depilaci??n adecuada. Si es necesario depilar la bailey antes de la incisi??n, se utiliza grzegorz cortadora de pelo; no se utiliza grzegorz afeitadora. [place] ivanna que se realicen amy??os bryant o heridas por las que pueden entrar g??rmenes. ??? Cuidado de heridas.??Despu??s de la cirug??a, se cubre la herida cerrada con grzegorz venda est??ril sonia un d??a o dos. Dentro de grzegorz herida abierta se coloca gasa est??ril y se cubre la bailey con grzegorz venda est??ril. ?? Lo que usted puede hacer para prevenir infecciones en la bailey de la cirug??a ??? [place] preguntas. Inf??rmese sobre las medidas que becka el hospital para prevenir infecciones. ??? Si jaramillo m??dico se lo indica, d??chese o b?jt con jab??n com??n la noche previa al d??a de la operaci??n. Siga las instrucciones que le den. Probablemente, le pedir??n que use un limpiador sin enjuague. ??? Si usted fuma, deje de hacerlo por el mayor per??odo posible antes y despu??s de la operaci??n. Consulte con jaramillo m??dico sobre maneras de dejar el h??bito. ??? [place] antibi??ticos solo cuando jaramillo proveedor de atenci??n m??dica se lo indique. [place] antibi??ticos cuando no es necesario puede generar resistencia a lahora de matar g??rmenes. Adem??s, es fundamental terminar todos los antibi??ticos recetados, incluso si se siente mejor. ??? Aseg??rese de que los profesionales de atenci??n m??dica se laven las nimesh con agua y jab??n com??n o se las froten con un antis??ptico de alcohol en gel antes y despu??s deatenderlo. No jerod recordarles. ??? Despu??s de la cirug??a, coma alimentos saludables. Cuide de jaramillo incisi??n maryellen odalis le indic?? el m??dico o enfermero. ?? Cu??ndo llamar a jaramillo proveedor de atenci??n m??dica Llame a jaramillo proveedor de atenci??n m??dica si tiene cualquiera de los siguientes s??ntomas: ??? Aumento del dolor o de la sensibilidad en el sitio quir??rgico ??? Chery parag, aumento del enrojecimientoo hinchaz??n cerca de la incisi??n ??? Supuraci??n turbia, amarillenta o maloliente de la incisi??n??? Puntos (suturas) que se disuelven antes de que cicatrice la herida ??? Fiebre de 100.4? F ( 3 8?C ) o m??s, o seg??n las indicaciones del proveedor ??? Sensaci??n de cansancio que no desaparece ?? Last Reviewed Date: 2021 ?? 3569-0724 [employer]. Todos los derechos reservados. Esta informaci??n no pretende sustituir la atenci??n m??dica profesional. S??lo jaramillo m??dico puede diagnosticar y tratar un problema de carlin. ?? Patient Care team information Care Team Personnel Name: Radha Borjas RN Position: [facility] RN Member Role: Primary Care Nurse Name: Yady Copeland RN Position: [facility] RN Member Role: Primary Care Nurse Name: Goyo Juan MD Position: [facility] Renal MD Member Role: Lifetime Consulting Physician Address: Address: [address] [place] [address], [address] Name: Maria Dolores White RN Position: S RN Member Role: Primary Care Nurse Name: Claudine Judge RN Position: S RN Member Role: Primary Care Nurse Name: Misty Butt RN Position: S RN Member Role: Primary Care Nurse Name: Cher Nichols Position: [facility] RN Member Role: Primary Care Nurse Name: Suze Villafuerte NP Position: [facility] Associate Professional Member Role: Primary Care Nurse Address: Address: [address] [place] [address]- [place] Name: Jodi Solorzano RN Position: [facility] RN Member Role: Primary Care Nurse Name: Isabela Caldera Position: [facility] Associate Professional Member Role: Lifetime Consulting Provider Address: Address: [address] [place] [address] [address] [facility] [place] [address]- [place] Name: Erum Fuentes Position: [facility] RN Member Role: Primary Care Nurse Name: Neetu Frost Position: [facility] PCO RN Member Role: Primary Care Nurse Name: Donna May RN Position: [facility] RN Member Role: Primary Care Nurse Name: Juana Palafox RN Position: [facility] RN Member Role: Primary Care Nurse Name: Anthony Magdaleno RN Position: [facility] RN Member Role: Primary Care Nurse Name: Chung Fernandez RN Position: [facility] RN Member Role: Primary Care Nurse Name: Hansa Carmona Position: [facility] RN Member Role: Primary Care Nurse Name: Donna Hatfield LPN Position: [facility] RN Member Role: Primary Care Nurse Name: Farzaneh Palacios RN Position: [facility] RN Member Role: Primary Care Nurse Name: Migel Cruz RN Position: [facility] RN Member Role: Primary Care Nurse Name: Radha Nye RN Position: [facility] RN Member Role: Primary Care Nurse Name: Cristina Spence Position: [facility] RN Member Role: Primary Care Nurse Name: Shira Mann RN Position: [facility] RN Member Role: Primary Care Nurse Name: Odin Rodriguez DO Position: [facility] Renal MD Member Role: Lifetime Consulting Physician Address: Address: [address] [facility] [place] [address]- [place] Name: Jimy Gaytan RN Position: [facility] RN Member Role: Primary Care Nurse Name: Frida Blanco RN Position: [facility] RN Member Role: Primary Care Nurse Name: Nik Esposito Position: [facility] Associate Professional Member Role: Lifetime Consulting Provider Address: Address: [address] [place] [address] Name: Deirdre Lopez RN Position: [facility] RN Member Role: Primary Care Nurse Name: Rosario Alcantara RN Position: [facility] RN Member Role: Primary Care Nurse Name: Robert Braden RN Position: [facility] RN Member Role: Primary Care Nurse Name: Jess Chong RN Position: [facility] RN Member Role: Primary Care Nurse Name: Jacoby Sood MD Position: [facility] Renal MD Member Role: Lifetime Consulting Physician Address: Address: [address] [place] [address] [address] [facility] [place] [address]- Name: Ramonita Bardales RN Position: [facility] RN Member Role: Primary Care Nurse Name: Ramin Bradley RN Position: [facility] RN Member Role: Primary Care Nurse Name: Linda Benson LPN Position: [facility] RN Member Role: Primary Care Nurse Name: Jocelyn Modi RN Position: [facility] RN Member Role: Primary Care Nurse Name: Erma Lira RN Position: [facility] RN Member Role: Primary Care Nurse Name: Sherif Amaya MD Position: [facility] Renal MD Member Role: Lifetime Consulting Physician Address: Address: [address] [place] [address] [facility] [place] [address]- Name: Courtney Freed RN Position: [facility] RN Member Role: Primary Care Nurse Name: Cony Alberts RN Position: [facility] SN RN Member Role: Primary Care Nurse Name: Kaylan Caraballo RN Position: [facility] RN Member Role: Primary Care Nurse Name: Zoraida Luo MD Position: Reference Physician Member Role: PCP Address: Address: [address] [place] [address]- Name: Ledy Franco RN Position: [facility] RN Member Role: Primary Care Nurse Name: Rosina Fernandez RN Position: [facility] RN Member Role: Primary Care Nurse Name: Kaylan Barker RN Position: [facility] Onco RN Member Role: Primary Care Nurse Name: Jeannie Mccarty RN Position: [facility] RN Member Role: Primary Care Nurse Name: Meghann Mccracken RN Position: [facility] Hospital Medical Laboratory Manager Member Role: Primary Care Nurse Name: Franc Jeong RN Position: [facility] SN RN Member Role: Primary Care Nurse Name: *Faina BERNARD Attending Position: [facility] ED Medicine MD Name: Cheryl Dickey Position: [facility] ED OA Charge Member Role: ED Associate Name: Fred Freeman RN Position: [facility] ED RN W/OE and Tasks Member Role: Patient Care Provider Care Team Related Persons Name: AUTUMN CHUA Address: [address] [place] [address] Name: MICHELA BASILIO Address: [address] [place] [address]
[2023-04-04 19:47] LABS: Glucose, Whole Blood 272 mg/dL (60-115)
--- OUTSIDE RECORDS SUMMARY | 2023-04-04 19:47 | XMS_ITS | Continuity of Care Document ---
Author Name Unknown Organization [facility] Address [address] [place] [address]- Care Team Providers Care [place] Measurer Name Role Phone Valerio SEVERINO, Zoraida Primary Care Physician Encounter [facility] [place](s[place] 03/01/23 - 03/08/23 [facility] [address], [place] [address] Attending Physician: Zoraida Luo MD Admitting Physician: Zoraida Luo MD Referring Physician: Jaspal Bolanos MD Allergies, Adverse Reactions, Alerts Substance Reaction [...] 1Early/Late Reason: Med Not Available 2Result Comment: [id number], NOV 28 3Early/Late Reason: Med Not Available [...] tablet,2 Refills, Maintenance, 01/06/22 9:53:00 EDT, Tablet, [facility], Partial fillupon patient request if the prescription is for a s... Start Date: 01/06/22 Status: Ordered amLODIPine 5 mg oral tablet 1 tablet [...] origin Confirmed Active 1Type II 2campath induction Vital Signs Most recent to oldest [Reference Range]: 1 Height 160 cm (03/01/23 3:24 PM) Oxygen Saturation [94-100 %] 97 % (03/01/23 3:24 PM) Pulse Rate [55-90 bpm] 90 bpm (03/01/23 3:24 PM) Blood Pressure [90-138/55-84 mm Hg] 130/ 80mm Hg (03/01/23 3:24 PM) Blood pressure sites Arm, right (03/01/23 3:24 PM) Social History Social History Type Response Smoking Status Never (less than 100 in lifetime) entered on: 03/05/23 Sex Note * Josemanuel Silverio: PERFORM, SIGN, VERIFY Event Display: Patient Education/Instruction Authored Date: [id number] [facility] [address] Clinical Summary Name VERONA RICHARDSON Age 57 Years 1965 PCP Valerio SEVERINO, Zoraida PCP Visit Date 03/01/2023 15:12:00 Additional Instructions: Scheduled Appointments?? Future Appointments ?[facility] ?[address]??[place],??[place],??[address] ?Phone:??[phone]?Fax:??-- ?Appt. Date:??03/09/2023?2:45 PM ?Scheduled Provider:??[id number] ?*[facility]??[place],??[place],??[address] ?Phone:??--?Fax:??-- ?Appt. Date:??03/16/2023?8:45 AM ?Scheduled Provider:??Migel TAIL EDGER , Sophie B ?*[facility] ?[address]??[place],??[place],??[address] ?Phone:??--?Fax:??-- ?Appt. Date:??03/25/2023?2:30 PM ?Scheduled Provider:??Kierra LAMB, Chris Avalos Follow-Up Instructions ?? With: Address: When: Cici SEVERINO, Japsal Walsh [address] [facility] [place] [address] In 2 weeks Comments: Return in two weeks for wound check. Diagnosis Medications: Please continue your medications until treatment is completed or stopped by your provider. Discuss any questions related to medications with your provider. New Medications [facility], [address] [place] [phone], [phone] Cephalexin (cephalexin monohydrate 750 mg oral capsule) 1 capsule Oral every 12 hours for 14 Days. Refills: 0. Next Dose: Medications to Continue with No Changes These medications were not printed or sent to your pharmacy Acetaminophen (acetaminophen 500 mg oral tablet) 1 tab(s) Oral every 4 hours as needed as needed for fever. Next Dose: Albuterol (albuterol 0.083% inhalation solution) 3 Milliliter Inhalation every 6 hours as needed for wheezing. Next Dose: Albuterol (albuterol 0.083% inhalation solution) 3 Milliliter Nebulized inhalation every 8 hours. Next Dose: Amlodipine (amLODIPine 10 mg oral tablet) 1 tab(s) Oral Daily. Take instead of the 5mg tablets for blood pressure. Refills: 2. Next Dose: Amlodipine (amLODIPine 5 mg oral tablet) 1 tab(s) Oral Daily. TAKE ONE TABLET EVERY MORNING. Next Dose: Aspirin (aspirin 81 mg oral delayed release tablet) 81 Milligram Oral Daily. Next Dose: Aspirin (aspirin 81 mg oral tablet) 1 tab(s) Oral Daily. Next Dose: Atorvastatin (atorvastatin 10 mg oral tablet) 1 tab(s) Oral Daily. TAKE ONE TABLET EVERY MORNING. Next Dose: Atorvastatin (atorvastatin 10 mg oral tablet) 1 tab(s) Oral Daily. Next Dose: Calcitriol (calcitriol 0.5 mcg oral capsule) 1 capsule Oral Daily. Next Dose: Calcitriol (calcitriol 0.5 mcg oral capsule) 1 capsule Oral Daily. TAKE ONE CAPSULE EVERY MORNING. Next Dose: Cholecalciferol (Vitamin D3 50,000 intl units oral capsule) 1 capsule Oral every week. Next Dose: Duloxetine (duloxetine 20 mg oral enteric coated capsule) 1 capsule Oral Daily. Next Dose: Ergocalciferol (ergocalciferol 65540 iu oral capsule) 1 capsule Oral every week for 30 Days. Refills: 5. Next Dose: Famotidine (famotidine 40 mg oral tablet) 1 tab(s) Oral Daily at Bedtime. Next Dose: Ferrous Sulfate (ferrous sulfate 325 mg oral enteric coated tablet) 325 Milligram Oral Daily. Next Dose: Gabapentin (gabapentin 100 mg oral capsule) 1 capsule Oral 3 times a day. Next Dose: Gabapentin (gabapentin 100 mg oral capsule) TAKE ONE CAPSULE AT BEDTIME. Next Dose: Gabapentin (gabapentin 100 mg oral capsule) 1 capsule Oral Daily at Bedtime. TAKE ONE CAPSULE BY MOUTH AT BEDTIME. Next Dose: HydrOXYzine (hydrOXYzine hydrochloride 10 mg oral tablet) 1 tab(s) Oral twice a day. TAKE ONE TABLET BY MOUTH IN THE MORNING AND EVENING. Next Dose: Insulin Aspart (Insulin Aspart FlexPen 100 units/mL injectable solution) 10 unit(s) Subcutaneous Injection 3 times a day before meals. INJECT 9 UNITS SUBCUTANEOUSLY WITH BREAKFAST, 9 UNITS SUBCUTANEOUSLY WITH LUNCH AND 7 UNITS SUBCUTANEOUSLY WITH DINNER. Next Dose: Insulin Glargine (Insulin Glargine Inj) 5 unit(s) Subcutaneous Injection Daily at Bedtime. Next Dose: Insulin Glargine (Lantus Inj) 35 unit(s) Subcutaneous Injection Daily at Bedtime. Next Dose: Insulin Lispro (insulin lispro 100 units/mL injectable solution) 6 unit(s) Subcutaneous Injection 3times a day before meals. Next Dose: Levothyroxine (levothyroxine 0.025 mg oral tablet) 2 tab(s) Oral Daily. Next Dose: Lidocaine Topical (lidocaine 5% topical film) 1 patch(es) Topically Daily as needed Pain , Mild. remove after 12 hours. Next Dose: Lidocaine Topical (lidocaine 5% topical film) 1 patch(es) Topically Daily as needed Pain , Mild. remove after 12 hours. Next Dose: Loperamide (loperamide 2 mg oral capsule) 2 Milligram Oral every 3 hours as needed Loose Stool. Next Dose: Loperamide (loperamide 2 mg oral capsule) 1 capsule Oral 3 times a day. Next Dose: Metoclopramide (metoclopramide 10 mg oral tablet) 1 tab(s) Oral every 6 hours. Next Dose: Metoprolol (Metoprolol Succinate ER 25 mg oral tablet, extended release) 1 tab(s) Oral Daily. TAKE ONE TABLET EVERY MORNING. Next Dose: Mupirocin Topical (mupirocin 2% topical ointment) 1 niraj Topically 3 times a day. Next Dose: NIFEdipine (NIFEdipine (Eqv-Adalat CC) 30 mg oral tablet, extended release) 1 tab(s) Oral Daily for30 Days. Refills: 0. Next Dose: Pantoprazole (pantoprazole 20 mg oral delayed release tablet) 20 Milligram Oral Daily. Next Dose: Pantoprazole (pantoprazole 40 mg oral delayed release tablet) 1 tab(s) Oral twice a day. Next Dose: PEG Electrolyte Solution (PEG-3350 with Electrolytes (Eqv-NuLYTELY) oral powder for reconstitution)as directed. Refills: 0. Next Dose: PredniSONE (predniSONE 10 mg oral tablet) 1 tab(s) Oral Daily. Next Dose: PredniSONE (predniSONE 5 mg oral tablet) 1 tab(s) Oral Daily. Next Dose: sodium bicarbonate (sodium bicarbonate 650 mg oral tablet) 1 tab(s) Oral 3 times a day. TAKE ONE TABLET BY MOUTH THREE TIMES DAILY. Next Dose: Tacrolimus (tacrolimus 1 mg oral capsule) 2 capsule Oral every 12 hours. Next Dose: Tacrolimus (tacrolimus 1 mg oral capsule) 2 capsule Oral every 12 hours. Take 1 capsule everyday inthe morning and 2 capsules everyday in the evening. Next Dose: Tamsulosin (tamsulosin 0.4 mg oral capsule) 1 capsule Oral Daily at Bedtime. Next Dose: Tramadol (traMADol 50 mg oral tablet) 1 tab(s) Oral every 12 hours as needed as needed for pain. Next Dose: Trazodone (traZODone 50 mg oral tablet) 1.5 tab(s) Oral Daily at Bedtime. Next Dose: Trazodone (traZODone 50 mg oral tablet) 0.5 tab(s) Oral Daily at Bedtime. TAKE 1/2 TABLET AT BEDTIME. Next Dose: Allergy Info:?? Benadryl; Dilaudid; morphine Medications Given This Visit Future Orders ?No future orders Vital Signs Height 160 cm Weight BMI Blood Pressure 130 mm Hg/80 mm Hg Temperature Pulse Rate 90 bpm Respiratory Rate 02 Sat Mode of Delivery 97 %/ You can now view a summary of your hospital visit from the comfort of your home through a free online portal called [employer]. [employer] is a website that allows you to securely view your medical information including discharge summary, medications and follow-up visits. ??You can alsosend a secure electronic message to your doctor???s office to request appointments, renew medications or just ask a question. You can enroll at [email or web address] or register during your next office visit. Disclaimer:?? The information provided is of a general nature and is intended to be used in conjunction with the recommendations and advice of your health care practitioner. ??Every effort has been made to ensure that the information provided is accurate and complete at the time it is provided to you however, as your needs change, or, as new ??information becomes available, different or additional instructions may be required. If you have questions, please consult with your primary care provider or pharmacist, as appropriate. ??This information is not intended to serve as substitution for assessment and evaluation by a qualified health care provider. If you do not have a primary care provider, you may find a [facility] provider by calling [facility] Link at [phone]. [facility], in keeping with [facility] guidance, no longer requires face masks for staff, patientsor visitors in most situations. Similar to time spent indoors at other locations, there is the chance that you were exposed to respiratory viruses during your time with us (such as flu or COVID-19).? If you develop symptoms concerning for a viral respiratory infection, please seek testing (and treatment if indicated) from your medical provider or home test kit. For information about the plan of care including goals and instructions for your diagnosis, please see the patient education orders section of this document. Patient Education Materials?? The content of this educational material or handout may have been modified, supplemented, or adapted from its original content and format to support your individualized medical care. Patient Care team information Care Team Personnel Name: Radha Borjas RN Position: [facility] RN Member Role: Primary Care Nurse Name: Yady Copeland RN Position: [facility] RN Member Role: Primary Care Nurse Name: Goyo Juan MD Position: [facility] Renal Member Role: Lifetime Consulting Physician Address: Address: [address] [place] [address] [address] [place], [place] [address] Name: Maria Dolores White RN Position: S RN Member Role: Primary Care Nurse Name: Claudine Judge RN Position: S RN Member Role: Primary Care Nurse Name: Misty Butt RN Position: S RN Member Role: Primary Care Nurse Name: Cher Nichols Position: S RN Member Role: Primary Care Nurse Name: Suze Villafuerte NP Position: [facility] Associate Professional Member Role: Primary Care Nurse Address: Address: [address] [place] [address]- [place] Name: Jodi Solorzano RN Position: [facility] RN Member Role: Primary Care Nurse Name: Isabela Caldera Position: [facility] Associate Professional Member Role: Lifetime Consulting Provider Address: Address: [address] [place] [address] [address] [facility] [place] [address]- [place] Name: Erum Fuentes Position: [facility] RN Member Role: Primary Care Nurse Name: Neetu Frost Position: [facility] PCO RN Member Role: Primary Care Nurse Name: Donna May RN Position: [facility] RN Member Role: Primary Care Nurse Name: Juana Palafox RN Position: [facility] RN Member Role: Primary Care Nurse Name: Anthony Magdaleno RN Position: [facility] RN Member Role: Primary Care Nurse Name: Chung Fernandez RN Position: [facility] RN Member Role: Primary Care Nurse Name: Hansa Carmona Position: [facility] RN Member Role: Primary Care Nurse Name: Donna Hatfield LPN Position: [facility] RN Member Role: Primary Care Nurse Name: Farzaneh Palacios RN Position: [facility] RN Member Role: Primary Care Nurse Name: Migel Cruz RN Position: [facility] RN Member Role: Primary Care Nurse Name: Radha Nye RN Position: [facility] RN Member Role: Primary Care Nurse Name: Cristina Spence Position: [facility] RN Member Role: Primary Care Nurse Name: Shira Mann RN Position: [facility] RN Member Role: Primary Care Nurse Name: Odin Rodriguez DO Position: [facility] Renal MD Member Role: Lifetime Consulting Physician Address: Address: [address] [place] [address] [address] [facility] [place] [address]- Name: Jimy Gaytan RN Position: [facility] RN Member Role: Primary Care Nurse Name: Frida Blanco RN Position: [facility] RN Member Role: Primary Care Nurse Name: Nik Esposito Position: [facility] Associate Professional Member Role: Lifetime Consulting Provider Address: Address: [address] [place] [address]- [place] Name: Deirdre Lopez RN Position: [facility] RN Member Role: Primary Care Nurse Name: Rosario Alcantara RN Position: [facility] RN Member Role: Primary Care Nurse Name: Robert Braden RN Position: [facility] RN Member Role: Primary Care Nurse Name: Jess Chong RN Position: [facility] RN Member Role: Primary Care Nurse Name: Jacoby Sood MD Position: [facility] Renal MD Member Role: Lifetime Consulting Physician Address: Address: [address] [place] [address] [address] [facility] [place] [address]- Name: Ramonita Bardales RN Position: [facility] RN Member Role: Primary Care Nurse Name: Ramin Bradley RN Position: [facility] RN Member Role: Primary Care Nurse Name: Linda Benson LPN Position: [facility] RN Member Role: Primary Care Nurse Name: Jocelyn Modi RN Position: [facility] RN Member Role: Primary Care Nurse Name: Erma Lira RN Position: [facility] RN Member Role: Primary Care Nurse Name: Sherif Amaya MD Position: [facility] Renal MD Member Role: Lifetime Consulting Physician Address: Address: [address] [place] [address] [facility] [place] [address]- Name: Courtney Freed RN Position: [facility] RN Member Role: Primary Care Nurse Name: Cony Alberts RN Position: [facility] SN RN Member Role: Primary Care Nurse Name: Kaylan Caraballo RN Position: [facility] RN Member Role: Primary Care Nurse Name: Zoraida Luo MD Position: Reference Physician Member Role: PCP Address: Address: [address] [place] [address]- Name: Ledy Franco RN Position: [facility] RN Member Role: Primary Care Nurse Name: Rosina Fernandez RN Position: [facility] RN Member Role: Primary Care Nurse Name: Kaylan Barker RN Position: [facility] Onco RN Member Role: Primary Care Nurse Name: Jeannie Mccarty RN Position: [facility] RN Member Role: Primary Care Nurse Name: Meghann Mccracken RN Position: [facility] Master Motorcycle Technician Member Role: Primary Care Nurse Name: Franc Jeong RN Position: [facility] SN RN Member Role: Primary Care Nurse Name: Fadia Santacruz Position: [facility] RN Member Role: Primary Care Nurse Care Team Related Persons Name: AUTUMN CHUA Address: [address] [place] [address] Name: MICHELA BASILIO Address: [address] [place] [address]
--- OUTSIDE RECORDS SUMMARY | 2023-04-04 19:47 | XMS_ITS | Continuity of Care Document ---
Author Name Unknown Organization [facility] Address [address] [place] [id number]- Care Team Providers Care Grades 7 8 Tutor Name Role Phone Zoraida Luo MD Primary Care Physician Encounter [facility] Date(s): 03/22/23 - 03/29/23 [facility] [address] [place] [id number] Attending Physician: Not on Staff, Attending MD Allergies, Adverse Reactions, Alerts Substance Reaction [...] 1Early/Late Reason: Med Not Available 2Result Comment: [id number], NOV 28 3Early/Late Reason: Med Not Available [...] BID, # 90 Gm, 0 Refills, Maintenance, 03/22/23 14:49:00 EDT, Ointment, [facility], Partial fill upon patient request if the prescription is for a schedule II opioid drug., apply topically... Start Date: 03/22/23 Status: Ordered ferrous sulfate 325 mg oral enteric coated tablet 325 mg, By Mouth, Daily, Refills 0, Maintenance, 02/11/23 9:11:00 EDT, Partial fill upon patient request if the prescription is for a schedule II opioid drug. Start Date: 02/11/23 Status: Ordered gabapentin 100 mg oral capsule 100 mg, 1, capsule, By Mouth, 3 times a day, TAKE ONE CAPSULE BY MOUTH AT BEDTIME, # 90 capsule, Refills 0, Tot. Refills 0, Maintenance, 03/22/23 14:49:00 EDT, Route to Pharmacy Electronically, [facility], Partial fill upon patien... Start Date: 03/22/23 Stop Date: 04/21/23 Status: Ordered hydrOXYzine hydrochloride 10 mg oral tablet 1 tablet = 10 mg, By Mouth, 2 times a day, TAKE ONE TABLET BY MOUTH IN THE MORNING AND EVENING Start Date: 01/11/23 Status: Ordered insulin glargine 100 u/ml subcutaneous solution = 10 units, Subcutaneous Injection, Daily at bedtime, # 15 mL, 0 Refills, Maintenance, 03/11/23 12:54:00 EDT, Injection, [facility], Partial fill upon patient [...] oldest [Reference Range]: 1 Height 160 cm (03/22/23 2:42 PM) Weight 74.84 kg (03/22/23 2:42 PM) Oxygen Saturation [94-100 %] 97 % (03/22/23 2:42 PM) Pulse Rate [55-90 bpm] 92 bpm *H* (03/22/23 2:42 PM) Body Mass Index [18.5-24.99 kg/m2] 29.23 kg/m2 *H* (03/22/23 2:42 PM) Blood Pressure [90-138/55-84 mm Hg] 100/ 60mm Hg (03/22/23 2:42 PM) Mode of Delivery (Oxygen) Room air (03/22/23 2:42 PM) Blood pressure sites Arm, right (03/22/23 2:42 PM) Weight Obtained Via Patient/family state d (03/22/23 2:42 PM) Social History Social History Type Response Smoking Status Never (less than 100 in lifetime) entered on: 03/05/23 Sex Note * Josemanuel Silverio: PERFORM, SIGN, VERIFY Event Display: Patient Education/Instruction Authored Date: [id number] [facility] *BV[facility] [address] Clinical Summary Name VERONA RICHARDSON Age 57 Years 1965 PCP Valerio SEVERINO, Zoraida PCP Visit Date 03/22/2023 13:00:00 Additional Instructions: Scheduled Appointments?? Future Appointments ?*[facility] [address]??[place],??[place],??[address] ?Phone:??--?Fax:??-- ?Appt. Date:??03/25/2023?2:30 PM ?Scheduled Provider:??Kierra LAMB, Chris Avalos Follow-Up Instructions ?? With: Address: When: Migel PINEDA, Sophie Snow [address] [facility] 201 [facility] [place], [place] [id number] Within 2 to 3 weeks Diagnosis Medications: Please continue your medications until treatment is completed or stopped by your provider. Discuss any questions related to medications with your provider. Medications to Continue Taking That Have Changed [facility], [address] [place] [phone], [phone] - Gabapentin (gabapentin 100 mg oral capsule) 1 capsule Oral 3 times a day for 30 Days. TAKE ONE CAPSULE BY MOUTH AT BEDTIME. Refills: 0. 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 Refills: 0. Next Dose: These medications were not printed or sent to your pharmacy Acetaminophen (acetaminophen 500 mg oral tablet) 1 tab(s) Oral every 4 hours as needed as needed for fever. Next Dose: Albuterol (albuterol 0.083% inhalation solution) 3 Milliliter Inhalation every 6 hours as needed for wheezing. Next Dose: Amlodipine (amLODIPine 5 mg oral tablet) 1 tab(s) Oral Daily. TAKE ONE TABLET EVERY MORNING. Next Dose: Aspirin (aspirin 81 mg oral delayed release tablet) 81 Milligram Oral Daily. Next Dose: Atorvastatin (atorvastatin 10 mg oral tablet) 1 tab(s) Oral Daily. TAKE ONE TABLET EVERY MORNING. Next Dose: Calcitriol (calcitriol 0.5 mcg oral capsule) 1 capsule Oral Daily. TAKE ONE CAPSULE EVERY MORNING. Next Dose: Ferrous Sulfate (ferrous sulfate 325 mg oral enteric coated tablet) 325 Milligram Oral Daily. Next Dose: HydrOXYzine (hydrOXYzine hydrochloride 10 mg oral tablet) 1 tab(s) Oral twice a day. TAKE ONE TABLET BY MOUTH IN THE MORNING AND EVENING. Next Dose: Insulin Glargine (insulin glargine 100 u/ml subcutaneous solution) 10 unit(s) Subcutaneous Injection Daily at Bedtime. Refills: 0. Next Dose: Insulin Lispro (insulin lispro 100 units/mL injectable solution) 6 unit(s) Subcutaneous Injection 3times a day before meals. Next Dose: Loperamide (loperamide 2 mg oral capsule) 2 Milligram Oral every 3 hours as needed Loose Stool. Next Dose: Metoprolol (Metoprolol Succinate ER 25 mg oral tablet, extended release) 1 tab(s) Oral Daily. TAKE ONE TABLET EVERY MORNING. Next Dose: Pantoprazole (pantoprazole 20 mg oral delayed release tablet) 20 Milligram Oral Daily. Next Dose: sodium bicarbonate (sodium bicarbonate 650 mg oral tablet) 1 tab(s) Oral 3 times a day. TAKE ONE TABLET BY MOUTH THREE TIMES DAILY. Next Dose: Tacrolimus (tacrolimus 1 mg oral capsule) 2 capsule Oral every 12 hours. Next Dose: Trazodone (traZODone 50 mg oral tablet) 0.5 tab(s) Oral Daily at Bedtime. TAKE 1/2 TABLET AT BEDTIME. Next Dose: Allergy Info:?? Benadryl; Dilaudid; morphine Medications Given This Visit Future Orders ?No future orders Vital Signs Height 160 cm Weight 74.84 kg BMI 29.23 kg/m2 Blood Pressure 100 mm Hg/60 mm Hg Temperature Pulse Rate 92 bpm Respiratory Rate 02 Sat Mode of Delivery 97 %/Room air You can now view a summary of your hospital visit from the comfort of your home through a free online portal called [employer]us. [employer]us is a website that allows you to securely view your medical information including discharge summary, medications and follow-up visits. ??You can alsosend a secure electronic message to your doctor???s office to request appointments, renew medications or just ask a question. You can enroll at [email or web address] or register during your next office visit. [...] care provider, you may find a [facility] provider by calling [facility] [employer] Link at [phone]. [facility], in keeping with [facility] guidance, no longer requires face masks [...] Team Personnel Name: Radha Borjas RN Position: [facility] RN Member Role: Primary Care Nurse Name: Yady Copeland RN Position: [facility] RN Member Role: Primary Care Nurse Name: Goyo Juan MD Position: [facility] Renal MD Member Role: Lifetime Consulting Physician Address: Address: [address] [place] [address], [address] Name: Maria Dolores White RN Position: [facility] RN Member Role: Primary Care Nurse Name: Claudine Judge RN Position: [facility] RN Member Role: Primary Care Nurse Name: Misty Butt RN Position: [facility] RN Member Role: Primary Care Nurse Name: Cher Nichols Position: [facility] RN Member Role: Primary Care Nurse Name: Suze Villafuerte NP Position: [facility] Associate Professional Member Role: Primary Care Nurse Address: Address: [address] [place] [address]- Name: Jodi Solorzano RN Position: [facility] RN Member Role: Primary Care Nurse Name: Isabela Caldera Position: [facility] Associate Professional Member Role: Lifetime Consulting Provider Address: Address: [address] [place] [address] [facility] [place] [address]- Name: Erum Fuentes Position: [facility] RN Member Role: Primary Care Nurse Name: Neetu Frost Position: [facility] PCO RN Member Role: Primary Care Nurse Name: Juana Palafox RN Position: [facility] RN Member Role: Primary Care Nurse Name: Anthony Magdaleno RN Position: [facility] RN Member Role: Primary Care Nurse Name: Hansa Carmona Position: [facility] RN Member Role: Primary Care Nurse Name: Donna Hatfield LPN Position: [facility] RN Member Role: Primary Care Nurse Name: Farzaneh Palacios RN Position: [facility] RN Member Role: Primary Care Nurse Name: Migel Cruz RN Position: [facility] RN Member Role: Primary Care Nurse Name: Radha Nye RN Position: [facility] RN Member Role: Primary Care Nurse Name: Cristina Spence Position: [facility] RN Member Role: Primary Care Nurse Name: Shira Mann RN Position: [facility] RN Member Role: Primary Care Nurse Name: Odin Rodriguez DO Position: [facility] Renal MD Member Role: Lifetime Consulting Physician Address: Address: [address] [place], [place] [address] [place] [address]- Name: Jimy Gaytan RN Position: [facility] RN Member Role: Primary Care Nurse Name: Frida Blanco RN Position: [facility] RN Member Role: Primary Care Nurse Name: Nik Esposito Position: [facility] Associate Professional Member Role: Lifetime Consulting Provider Address: Address: [address] [place] [address] Name: Deirdre Lopez RN Position: [facility] RN Member Role: Primary Care Nurse Name: Rosario Alcantara RN Position: [facility] RN Member Role: Primary Care Nurse Name: Robert Braden RN Position: [facility] RN Member Role: Primary Care Nurse Name: Jess Chong RN Position: [facility] RN Member Role: Primary Care Nurse Name: Jacoby Sood MD Position: [facility] Renal MD Member Role: Lifetime Consulting Physician Address: Address: [address] [place] [address] [address] [facility] [place] [address]- Name: Ramonita Bardales RN Position: [facility] RN Member Role: Primary Care Nurse Name: Ramin Bradley RN Position: [facility] RN Member Role: Primary Care Nurse Name: Linda Benson LPN Position: [facility] RN Member Role: Primary Care Nurse Name: Jocelyn Modi RN Position: [facility] RN Member Role: Primary Care Nurse Name: Erma Lira RN Position: [facility] RN Member Role: Primary Care Nurse Name: Sherif Amaya MD Position: [facility] Renal MD Member Role: Lifetime Consulting Physician Address: Address: [address] [place] [address] [facility] [place] [address]- Name: Cony Alberts RN Position: [facility] SN RN Member Role: Primary Care Nurse Name: Kaylan Caraballo RN Position: [facility] RN Member Role: Primary Care Nurse Name: Zoraida Luo MD Position: Reference Physician Member Role: PCP Address: Address: [address] [place] [address]- Name: Ledy Franco RN Position: [facility] RN Member Role: Primary Care Nurse Name: Rosina Fernandez RN Position: [facility] RN Member Role: Primary Care Nurse Name: Kaylan Barker RN Position: [facility] Onco RN Member Role: Primary Care Nurse Name: Jeannie Mccarty RN Position: [facility] RN Member Role: Primary Care Nurse Name: Meghann Mccracken RN Position: [facility] Personal Injury Paralegal Member Role: Primary Care Nurse Name: Jean-Paul ESPAÑA Hteekaterry Position: [facility] SN RN Member Role: Primary Care Nurse Care Team Related Persons Name: LIVE CHUA Address: [address] [place] [address] Name: MICHELA BASILIO Address: [address] [place] [address]
--- OUTSIDE RECORDS SUMMARY | 2023-04-04 19:47 | XMS_ITS | Continuity of Care Document ---
Author Name Unknown Organization [facility] Address [address] [place] [address]- Care Team Providers Care Manager Transit Name Role Phone Zoraida Luo MD Primary Care Physician Encounter [facility] Date(s): 02/08/23 - 03/10/23 [facility] [address] [place] [address]- Allergies, Adverse Reactions, Alerts Substance Reaction Severity [...] 1Early/Late Reason: Med Not Available 2Result Comment: [id number], NOV 28 3Early/Late Reason: Med Not Available [...] tablet,2 Refills, Maintenance, 01/06/22 9:53:00 EDT, Tablet, [facility], Partial fillupon patient request [...] 100 in lifetime) entered on: 03/05/23 Sex Patient Care team information Care Team Personnel Name: Radha Borjas RN Position: [facility] RN Member Role: Primary Care Nurse Name: Yady Copeland RN Position: [facility] RN Member Role: Primary Care Nurse Name: Goyo Juan MD Position: [facility] Renal MD Member Role: Lifetime Consulting Physician Address: Address: [address] [place] [address], [address] Name: Maria Dolores White RN Position: [facility] RN Member Role: Primary Care Nurse Name: Claudine Judge RN Position: [facility] RN Member Role: Primary Care Nurse Name: Misty Butt RN Position: [facility] RN Member Role: Primary Care Nurse Name: Cher Nichols Position: [facility] RN Member Role: Primary Care Nurse Name: Suze Villafuerte NP Position: [facility] Associate Professional Member Role: Primary Care Nurse Address: Address: [address] [place] [id number] Name: Jodi Solorzano RN Position: [facility] RN Member Role: Primary Care Nurse Name: Isabela Caldera Position: [facility] Associate Professional Member Role: Lifetime Consulting Provider Address: Address: [address] [place] [address] [address] [facility] [place], [place] [address] Name: Erum Fuentes Position: S RN Member Role: Primary Care Nurse Name: Neetu Frost Position: [facility] PCO RN Member Role: Primary Care Nurse Name: Donna May RN Position: [facility] RN Member Role: Primary Care Nurse Name: Juana Palafox RN Position: [facility] RN Member Role: Primary Care Nurse Name: Anthony Magdaleno RN Position: [facility] RN Member Role: Primary Care Nurse Name: Chung Fernandez RN Position: [facility] RN Member Role: Primary Care Nurse Name: Hansa Carmona Position: [facility] RN Member Role: Primary Care Nurse Name: Donna Hatfield LPN Position: [facility] RN Member Role: Primary Care Nurse Name: Farzaneh Palacios RN Position: [facility] RN Member Role: Primary Care Nurse Name: Migel Cruz RN Position: [facility] RN Member Role: Primary Care Nurse Name: Radha Nye RN Position: [facility] RN Member Role: Primary Care Nurse Name: Cristina Spence Position: [facility] RN Member Role: Primary Care Nurse Name: Shira Mann RN Position: [facility] RN Member Role: Primary Care Nurse Name: Odin Rodriguez DO Position: [facility] Renal MD Member Role: Lifetime Consulting Physician Address: Address: [address] [place], [place] [address] [place] [address]- Name: Jimy Gaytan RN Position: [facility] RN Member Role: Primary Care Nurse Name: Frida Blanco RN Position: [facility] RN Member Role: Primary Care Nurse Name: Nik Esposito Position: [facility] Associate Professional Member Role: Lifetime Consulting Provider Address: Address: [address] [place] [address] Name: Deirdre Lopez RN Position: [facility] RN Member Role: Primary Care Nurse Name: Rosario Alcantara RN Position: [facility] RN Member Role: Primary Care Nurse Name: Robert Braden RN Position: [facility] RN Member Role: Primary Care Nurse Name: Jess Chong RN Position: [facility] RN Member Role: Primary Care Nurse Name: Jacoby Sood MD Position: [facility] Renal MD Member Role: Lifetime Consulting Physician Address: Address: [address] [place] [address] [address] [facility] [place] [address]- Name: Ramonita Bardales RN Position: [facility] RN Member Role: Primary Care Nurse Name: Ramin Bradley RN Position: [facility] RN Member Role: Primary Care Nurse Name: Linda Benson LPN Position: [facility] RN Member Role: Primary Care Nurse Name: Jocelyn Modi RN Position: [facility] RN Member Role: Primary Care Nurse Name: Erma Lira RN Position: [facility] RN Member Role: Primary Care Nurse Name: Sherif Amaya MD Position: [facility] Renal MD Member Role: Lifetime Consulting Physician Address: Address: [address] [place] [address] [facility] [place], [place] [address] Name: Courtney Freed RN Position: [facility] RN Member Role: Primary Care Nurse Name: Cony Alberts RN Position: [facility] SN RN Member Role: Primary Care Nurse Name: Kaylan Caraballo RN Position: [facility] RN Member Role: Primary Care Nurse Name: Zoraida Luo MD Position: Reference Physician Member Role: PCP Address: Address: [address] [place] [address]- Name: Ledy Franco RN Position: [facility] RN Member Role: Primary Care Nurse Name: Rosina Fernandez RN Position: [facility] RN Member Role: Primary Care Nurse Name: Kaylan Barker RN Position: [facility] Onco RN Member Role: Primary Care Nurse Name: Jeannie Mccarty RN Position: [facility] RN Member Role: Primary Care Nurse Name: Meghann Mccracken RN Position: [facility] Weblogic Developer Member Role: Primary Care Nurse Name: Jean-Paul ESPAÑA Hteekaterry Position: [facility] SN RN Member Role: Primary Care Nurse Care Team Related Persons Name: HARSHIL AUTUMN Address: [address] [place] [address] Name: MICHELA BASILIO Address: [address] [place] [address]
--- OUTSIDE RECORDS SUMMARY | 2023-04-04 19:47 | XMS_ITS | Continuity of Care Document ---
Author Name Unknown Organization [facility] Address [address] [place] [address]- Care Team Providers Care Household Manager Name Role Phone Zoraida Luo MD Primary Care Physician Encounter [facility] Date(s): 08/04/22 - 08/04/[address] [address]- Discharge Disposition: A-D/C Walkout Attending Physician: Not on Staff, Attending MD Admitting Physician: Not on Staff, Admitting MD Referring Physician: Not on Staff, Referring MD Allergies, Adverse Reactions, Alerts No Known Allergies Results Radiology Reports * Exam Date Time Procedure Performing Provider Status 08/04/22 3:35 PM Chest 2 Views Frontal and Lat Josette Kate; Lilli (Verified) Notes: (Chest 2 Views Frontal and Lat) Reason For Exam: Chest Pain;Other: RESULT: Chest 2 Views Frontal and Lat Chest 2 Views Frontal and Lat INDICATION: Left lateral chest pain and shortness of breath. COMPARISON: None. FINDINGS: LINES AND TUBES: None. LUNGS AND PLEURA: Clear lungs. Normal pulmonary vascularity. No pleural effusion. No pneumothorax. HEART, MEDIASTINUM AND YEFRI: Heart is normal in size. Normal mediastinal and hilar contour. BONES AND SOFT TISSUES: Partially visualized left upper extremity vascular stent. Surgical clips in the right upper quadrant of the abdomen. IMPRESSION: No evidence of acute abnormality. I have personally reviewed the images and I agree with this report. WSN: [id number] Ordering Physician: José Ash Dictated By: Ramon Smith MD Dictated Date/Time: 08/04/22 4:08 pm Reviewed By: Willian Harding MD Signed By: Willian Harding MD Signed Date/Time: 08/04/22 4:13 pm Transcribed By: MADYSON Transcribed Date/Time: 08/04/22 3:54 pm Vital Signs Most recent to oldest [Reference Range]: 1 2 3 Oxygen Saturation [94-100 %] 100 % (08/04/22 3:05 PM) 100 % (08/04/22 1:08 PM) 98 % (08/04/22 1:06 PM) Pulse Rate [55-90 bpm] 98 bpm *H* (08/04/22 3:05 PM) 90 bpm (08/04/22 1:08 PM) 100 bpm *H* (08/04/22 1:06 PM) Blood Pressure [90-138/55-84 mm Hg] 148/100mm Hg *H* (08/04/22 3:05 PM) 151/104mm Hg *H* (08/04/22 1:08 PM) Respiratory Rate [16-30 br/min] 18 br/min (08/04/22 3:05 PM) 16 br/min (08/04/22 1:08 PM) Temperature [96.8-100.4 DegF] 99.7 DegF (08/04/22 3:05 PM) 99.3 DegF (08/04/22 1:08 PM) Mode of Delivery (Oxygen) Room air (08/04/22 3:05 PM) Room air (08/04/22 1:08 PM) Blood pressure sites Arm, right (08/04/22 3:05 PM) Arm, right (08/04/22 1:08 PM) Temperature Route Oral (08/04/22 3:05 PM) Oral (08/04/22 1:08 PM) Note * [facility] , CIS S: TRANSCRIBE Meaghan SEVREINO, Willian: VERIFY Ramon Smith MD: SIGN Event Display: Result: Authored Date: [id number] Chest 2 Views Frontal and Lat INDICATION: Left lateral chest pain and shortness of breath. COMPARISON: None. FINDINGS: LINES AND TUBES: None. LUNGS AND PLEURA: Clear lungs. Normal pulmonary vascularity. No pleural effusion. No pneumothorax. HEART, MEDIASTINUM AND YEFRI: Heart is normal in size. Normal mediastinal and hilar contour. BONES AND SOFT TISSUES: Partially visualized left upper extremity vascular stent. Surgical clips in the right upper quadrant of the abdomen. IMPRESSION: No evidence of acute abnormality. I have personally reviewed the images and I agree with this report. WSN: [id number] Ordering Physician: José Ash Dictated By: Ramon Smith MD Dictated Date/Time: 08/04/22 4:08 pm Reviewed By: Willian Harding MD Signed By: Willian Harding MD Signed Date/Time: 08/04/22 4:13 pm Transcribed By: MADYSON Transcribed Date/Time: 08/04/22 3:54 pm Patient Care team information Care Team Personnel Name: Zoraida Luo MD Position: Reference Physician Member Role: PCP Address: Address: [address] [place] [id number]
--- OUTSIDE RECORDS SUMMARY | 2023-04-04 19:47 | XMS_ITS | Continuity of Care Document ---
Author Name Unknown Organization [facility] ter Address [address] [place] [id number]- Care Team Providers Care Resource Agent Name Role Phone Zoraida Luo MD Primary Care Physician Encounter [facility] Date(s): 02/01/23 - 03/03/[address] [id number] Attending Physician: Not on Staff, Attending [...] 1Early/Late Reason: Med Not Available 2Result Comment: [id number], NOV 28 3Early/Late Reason: Med Not Available [...] tablet,2 Refills, Maintenance, 01/06/22 9:53:00 EDT, Tablet, [facility], Partial fillupon patient request if the [...] opioid drug. Start Date: 02/11/23 Status: Ordered aspirin 81 mg oral tablet 1 tablet = 81 mg, By Mouth, Daily, 0 Refills, Maintenance, 11/03/13 23:15:50 Start Date: 11/03/13 Status: Ordered atorvastatin 10 mg oral tablet 1 tablet = 10 mg, By Mouth, Daily, # 30 tablet, 0 Refills, Maintenance, 05/08/14 9:57:28, Tablet Start Date: 05/08/14 Status: Ordered atorvastatin 10 mg oral tablet [...] opioid drug. Start Date: 12/10/20 Status: Ordered cephalexin monohydrate 750 mg oral capsule 1 capsule = 750 mg, By Mouth, Every 12 hours, for 14 days, # 28 capsule, 0 Refills, Acute 03/15/23 16:06:00 EDT, 03/01/23 16:06:00 EDT, Capsule, [facility], Partial fill upon patient request if the prescription is for a schedule I... Start Date: 03/01/23 Stop Date: 03/15/23 Status: Ordered duloxetine 20 mg oral enteric coated capsule 1 capsule = 20 mg, By Mouth, Daily, 0 Refills, Maintenance, 12/10/20 16:18:00 EDT, Partial fill upon patient request if the prescription is for a schedule II opioid drug. Start Date: 12/10/20 Status: Ordered ergocalciferol 42765 iu oral capsule 1 capsule = 50,000 [...] opioid drug. Start Date: 12/31/21 Status: Ordered ferrous sulfate 325 mg oral [...] opioid drug. Start Date: 12/13/20 Status: Ordered gabapentin 100 mg oral capsule 100 mg, 1, capsule, By Mouth, Daily at bedtime, TAKE ONE CAPSULE BY MOUTH AT BEDTIME Start Date: 01/11/23 Status: Ordered hydrOXYzine hydrochloride 10 mg oral tablet 1 tablet = 10 mg, By Mouth, 2 times a day, TAKE ONE TABLET BY MOUTH IN THE MORNING AND EVENING Start Date: 01/11/23 Status: Ordered Insulin Aspart FlexPen 100 units/mL injectable solution = 10 units, Subcutaneous Injection, 3 times a day before meals, INJECT 9 UNITS SUBCUTANEOUSLY WITH BREAKFAST, 9 UNITS SUBCUTANEOUSLY WITH LUNCH AND 7 UNITS SUBCUTANEOUSLY WITH DINNER Start Date: 12/31/21 Status: Ordered Insulin Glargine Inj 0.05 mL [...] opioid drug. Start Date: 01/11/23 Status: Ordered Lantus Inj = 35 units, [...] opioid drug. Start Date: 03/20/21 Status: Ordered loperamide 2 mg oral capsule 2 mg, By Mouth, Every 3 hours, PRN, Refills 0, Maintenance, Loose Stool, 02/11/23 9:11:00 EDT, Partial fill upon patient request if the prescription is for a schedule II opioid drug. Start Date: 02/11/23 Status: Ordered metoclopramide 10 mg oral tablet 1 tablet = 10 mg, By Mouth, Every 6 hours, 0 Refills, Maintenance, 12/10/20 16:18:00 EDT, Partial fill upon patient request if the prescription is for a schedule II opioid drug. Start Date: 12/10/20 Status: Ordered Metoprolol Succinate ER 25 mg oral tablet, extended release 1 tablet = 25 mg, By Mouth, Daily, TAKE ONE TABLET EVERY MORNING Start Date: 01/11/23 Status: Ordered mupirocin 2% topical ointment 1 [...] 03/20/21 Stop Date: 04/19/21 Status: Ordered pantoprazole 20 mg oral delayed release tablet = 20 mg, By Mouth, Daily, 0 Refills, Maintenance, 02/11/23 9:11:00 EDT, EC Tablet Start Date: 02/11/23 Status: Ordered pantoprazole 40 mg oral delayed release tablet 1 tablet = 40 mg, By Mouth, 2 times a day, # 60 tablet, 0 Refills, Maintenance, 12/31/21 17:36:00 EDT, CR Tablet Start Date: 12/31/21 Status: Ordered PEG-3350 with Electrolytes (Eqv-NuLYTELY) oral powder for reconstitution See Instructions, as directed, # 1 each, 0 Refills, Maintenance, 04/24/22 14:42:00 EDT, [facility], ok to sub for any gallon prep, as directed, 160, cm, 04/24/22 13:47:00 EDT, Height, 76.2, kg, 01/13/22 14:47:00 EDT, Dry Weight Start Date: 04/24/22 Status: Ordered predniSONE 10 mg oral tablet 1 tablet = 10 mg, By Mouth, Daily, # 10 tablet, 0 Refills, Maintenance, 02/11/23 9:22:00 EDT, Tablet, Partial fill upon patient request if the prescription is for a schedule II opioid drug. Start Date: 02/11/23 Status: Ordered predniSONE 5 mg oral tablet 1 tablet = 5 mg, By Mouth, Daily, 0 Refills, Maintenance, 05/11/22 14:02:00 EST, Tablet, Partial fill upon patient request if the prescription is for a schedule II opioid drug. Start Date: 05/11/22 Status: Ordered sodium bicarbonate 650 mg oral [...] the evening Start Date: 12/31/21 Status: Ordered tacrolimus 1 mg oral capsule 2 capsule = 2 mg, By Mouth, Every 12 hours Start Date: 01/11/23 Status: Ordered tamsulosin 0.4 mg oral capsule [...] AT BEDTIME Start Date: 01/11/23 Status: Ordered traZODone 50 [...] 100 in lifetime) entered on: 01/10/23 Sex Patient Care team information Care Team Personnel Name: Min ESPAÑA, Yady Cee Position: S RN Member Role: Primary Care Nurse Name: Goyo Juan MD Position: [facility] Renal MD Member Role: Lifetime Consulting Physician Address: Address: [address] [place] [address], [address] [place] [address]- Name: Maria Dolores White RN Position: [facility] RN Member Role: Primary Care Nurse Name: Claudine Judge RN Position: [facility] RN Member Role: Primary Care Nurse Name: Misty Butt RN Position: [facility] RN Member Role: Primary Care Nurse Name: Cher Nichols Position: [facility] RN Member Role: Primary Care Nurse Name: Suze Villafuerte NP Position: [facility] Associate Professional Member Role: Primary Care Nurse Address: Address: [address] [place] [address]- Name: Jodi Solorzano RN Position: [facility] RN Member Role: Primary Care Nurse Name: Erum Fuentes Position: [facility] RN Member Role: Primary Care Nurse Name: Neetu Frost Position: [facility] PCO RN Member Role: Primary Care Nurse Name: Donna May RN Position: [facility] RN Member Role: Primary Care Nurse Name: Juana Palafox RN Position: [facility] RN Member Role: Primary Care Nurse Name: Anthony Magdaleno RN Position: [facility] RN Member Role: Primary Care Nurse Name: Chung Fernandez RN Position: [facility] RN Member Role: Primary Care Nurse Name: Hansa Carmona Position: [facility] RN Member Role: Primary Care Nurse Name: Donna Hatfield LPN Position: [facility] RN Member Role: Primary Care Nurse Name: Farzaneh Palacios RN Position: [facility] RN Member Role: Primary Care Nurse Name: Migel Cruz RN Position: [facility] RN Member Role: Primary Care Nurse Name: Radha Nye RN Position: [facility] RN Member Role: Primary Care Nurse Name: Cristina Spence Position: [facility] RN Member Role: Primary Care Nurse Name: Shira Mann RN Position: [facility] RN Member Role: Primary Care Nurse Name: Odin Rodriguez DO Position: [facility] Renal MD Member Role: Lifetime Consulting Physician Address: Address: [address] [place] [address] [address] [facility] [place] [place] [address]- [place] Name: Jimy Gaytan RN Position: [facility] RN Member Role: Primary Care Nurse Name: Frida Blanco RN Position: [facility] RN Member Role: Primary Care Nurse Name: Nik Esposito Position: [facility] Associate Professional Member Role: Lifetime Consulting Provider Address: Address: [address] [place] [address]- Name: Deidrre Lopez RN Position: [facility] RN Member Role: Primary Care Nurse Name: Rosario Alcantara RN Position: [facility] RN Member Role: Primary Care Nurse Name: Robert Braden RN Position: [facility] RN Member Role: Primary Care Nurse Name: Jess Chong RN Position: [facility] RN Member Role: Primary Care Nurse Name: Jacoby Sood MD Position: [facility] Renal MD Member Role: Lifetime Consulting Physician Address: Address: [address] [place] [address] [address] [facility] [place] [address]- Name: Ramonita Bardales RN Position: [facility] RN Member Role: Primary Care Nurse Name: Linda Benson LPN Position: [facility] RN Member Role: Primary Care Nurse Name: Jocelyn Modi RN Position: [facility] RN Member Role: Primary Care Nurse Name: Erma Lira RN Position: [facility] RN Member Role: Primary Care Nurse Name: Sherif Amaya MD Position: [facility] Renal MD Member Role: Lifetime Consulting Physician Address: Address: [address] [place] [address] [facility] [place] [address]- Name: Courtney Freed RN Position: [facility] RN Member Role: Primary Care Nurse Name: Cony Alberts RN Position: [facility] SN RN Member Role: Primary Care Nurse Name: Kaylan Caraballo RN Position: [facility] RN Member Role: Primary Care Nurse Name: Zoraida Luo MD Position: Reference Physician Member Role: PCP Address: Address: [address] [place] [address]- [place] Name: Ledy Franco RN Position: [facility] RN Member Role: Primary Care Nurse Name: Rosina Fernandez RN Position: [facility] RN Member Role: Primary Care Nurse Name: Kaylan Barker RN Position: [facility] Onco RN Member Role: Primary Care Nurse Name: Jeannie Mccarty RN Position: [facility] RN Member Role: Primary Care Nurse Name: Meghann Mccracken RN Position: [facility] Cruise Guide Member Role: Primary Care Nurse Name: Jean-Paul ESPAÑA Hteekaterry Position: [facility] RN Member Role: Primary Care Nurse Name: Fadia Santacruz Position: [facility] RN Member Role: Primary Care Nurse Care Team Related Persons Name: AUTUMN CHUA Address: [address] [place] [address] Name: MICHELA BASILIO Address: [address] [place] [address]
--- OUTSIDE RECORDS SUMMARY | 2023-04-04 19:47 | XMS_ITS | Continuity of Care Document ---
Author Name Unknown Organization [facility] ter Address [address] [place] [id number]- Care Team Providers Care Certified Ophthalmic Surgical Assistant Name Role Phone Valerio SEVERINO, Zoraida Primary Care Physician Encounter [facility] [place] Date(s): 01/10/23 - 02/01/[address] [id number] Encounter Diagnosis Diabetic infection of right foot(Final) - 01/10/23 Discharge Disposition: A-Transfer VNA/Home Health Attending Physician: Alissa SEVERINO, Jhony Rodrigues Admitting Physician: Corina Tan MD Referring Physician: Not on Staff, Referring MD Allergies, Adverse Reactions, Alerts Substance Reaction Severity Status morphine Active Medications amLODIPine 5 mg oral tablet 5 mg, Tablet, By Mouth, 02/01/23 9:00:00 EDT Start Date: 02/01/23 Stop Date: 02/01/23 Status: Completed amLODIPine 5 mg oral tablet 1 tablet = 5 mg, By Mouth, Daily, TAKE ONE TABLET EVERY MORNING Start Date: 01/11/23 Status: Ordered atorvastatin 10 mg oral tablet 1 tablet = 10 mg, By Mouth, Daily, TAKE ONE TABLET EVERY MORNING Start Date: 01/11/23 Status: Ordered calcitriol 0.5 mcg oral capsule 1 capsule = 0.5 mcg, By Mouth, Daily, TAKE ONE CAPSULE EVERY MORNING Start Date: 01/11/23 Status: Ordered gabapentin 100 mg oral capsule 100 mg, Capsule, By Mouth, 02/01/23 8:00:00 EDT Start Date: 02/01/23 Stop Date: 02/01/23 Status: Completed gabapentin 100 mg oral capsule 100 mg, 1, capsule, By Mouth, Daily at bedtime, TAKE ONE CAPSULE BY MOUTH AT BEDTIME Start Date: 01/11/23 Status: Ordered hydrOXYzine hydrochloride 10 mg oral tablet 1 tablet = 10 mg, By Mouth, 2 times a day, TAKE ONE TABLET BY MOUTH IN THE MORNING AND EVENING Start Date: 01/11/23 Status: Ordered insulin lispro 100 units/mL injectable solution = 6 units, Subcutaneous Injection, 3 times a day before meals, # 15 mL, 0 Refills, Maintenance, 01/11/23 4:40:00 EDT, Solution, Partial fill upon patient request if the prescription is for a scheduleII opioid drug. Start Date: 01/11/23 Status: Ordered Lantus Solostar Pen 100 units/mL subcutaneous solution INJECT 48 UNITS SUBCUTANEOUSLY EVERY EVENING Start Date: 01/11/23 Status: Ordered lidocaine 5% topical film 1 patch, Topically, Daily, PRN Pain , Mild, remove after 12 hours, # 13 each, 0 Refills, Maintenance, 01/11/23 4:32:00 EDT, Film, Partial fill upon patient request if the prescription is for a schedule II opioid drug. Start Date: 01/11/23 Status: Ordered Metoprolol Succinate ER 25 mg oral tablet, extended release 25 mg, XL Tablet, By Mouth, 02/01/23 9:00:00 EDT Start Date: 02/01/23 Stop Date: 02/01/23 Status: Completed Metoprolol Succinate ER 25 mg oral tablet, extended release 1 tablet = 25 mg, By Mouth, Daily, TAKE ONE TABLET EVERY MORNING Start Date: 01/11/23 Status: Ordered predniSONE 10 mg oral tablet 1 tablet = 10 mg, By Mouth, Daily, TAKE ONE TABLET BY MOUTH EVERY MORNING Start Date: 01/11/23 Status: Ordered sodium bicarbonate 650 mg oral [...] Every 6 hours, PRN Pain , Moderate, TAKE ONE TABLET EVERY 6 HOURS NEEDED FOR PAIN Start Date: 01/11/23 Status: Ordered traZODone 50 mg oral tablet 25 mg, 0.5, tablet, By Mouth, Daily at bedtime, TAKE 1/2 TABLET AT BEDTIME Start Date: 01/11/23 Status: Ordered Problem List Condition Confirmation Course Effective Dates Status Health brigid Informant Obese class I Confirmed Active Procedures Procedure Date Related Diagnosis Body Site Status Debridement of hindfoot, right 01/17/23 Completed Results Orders for Microbiology Reports Name Date Blood Culture 01/29/23 Blood Culture #2 01/29/23 Anaerobic Culture (ANAEROBIC CULTURE) Fungal Culture, Nonrespiratory (FUNGAL C ULT,NON-RESPIRATORY) 01/12/23 Tissue Culture w/ Gram Smear (TISSUE/BIO PSY CULT.) 01/12/23 Blood Culture 01/10/23 Blood Culture #2 01/10/23 Microbiology Reports TEST:Blood Culture STATUS:Unauthenticated BODY SITE: SOURCE:Blood COLLECTED DATE/TIME:01/29/23 1:22 AM Blood Culture SPECIMEN DESCRIPTION : BLOOD R HAND SPECIAL REQUESTS : NONE CULTURE : NO GROWTH 3 DAYS REPORT STATUS : PRELIMINARY REPORT TEST:Blood Culture, Second Order STATUS:Unauthenticated BODY SITE: SOURCE:Blood COLLECTED DATE/TIME:01/29/23 1:22 AM Blood Culture, Second Order SPECIMEN DESCRIPTION : BLOOD R HAND SPECIAL REQUESTS : NONE CULTURE : NO GROWTH 3 DAYS REPORT STATUS : PRELIMINARY REPORT TEST:Anaerobic Culture STATUS:Auth (Verified) BODY SITE: SOURCE:TISSUE1 COLLECTED DATE/TIME:01/12/23 11:46 AM Anaerobic Culture SPECIMEN DESCRIPTION : TISSUE RT HEEL SPECIAL REQUESTS : NONE CULTURE : 2+ STREPTOCOCCUS AGALACTIAE SERO GROUP B This isolate was identified using Maldi-TOF system SUSCEPTIBILITY TESTING NOT ROUTINELY PERFORMED ON THIS ISOLATE. 2+ BACTEROIDES THETAIOTAOMICRON This isolate was identified using Maldi-TOF system SUSCEPTIBILITY TESTING NOT ROUTINELY PERFORMED ON THIS ISOLATE. IF SUSCEPTIBILITY IS REQUIRED ON THIS ISOLATE PLEASE CONTACT THE LABORATORY (EXT [id number]) WITHIN 72 HOURS OF RECEIPT OF REPORT. REPORT STATUS : FINAL 01/14/2023 TEST:Fungal Culture, Non-Respiratory STATUS:Unauthenticated BODY SITE: SOURCE:TISSUE1 COLLECTED DATE/TIME:01/12/23 11:46 AM Fungal Culture, Non-Respiratory SPECIMEN DESCRIPTION : TISSUE RT HEEL SPECIAL REQUESTS : NONE DIRECT EXAM : NO FUNGAL ELEMENTS OBSERVED CULTURE : NO FUNGI ISOLATED AFTER 20 DAYS REPORT STATUS : PRELIMINARY REPORT TEST:Tissue/Biopsy Culture STATUS:Auth (Verified) BODY SITE: SOURCE:TISSUE1 COLLECTED DATE/TIME:01/12/23 11:46 AM Tissue/Biopsy Culture SPECIMEN DESCRIPTION : TISSUE RT HEEL SPECIAL REQUESTS : NONE GRAM STAIN : 2+ WHITE BLOOD CELLS 1+ GRAM NEGATIVE RODS CULTURE : 4+ ESCHERICHIA COLI This isolate was identified using Maldi-TOF system These AST results were performed on the [employer] ID and AST system REPORT STATUS : FINAL 01/14/2023 ORGANISM 4+ ESCHERICHIA COLI This isolate was identified using Maldi-TOF system These AST results were performed on the [employer] ID and AST system METHOD MIN. INHIB. CONC. (MCG/ML) AMOXICILLIN/CLAVULAN SUSCEPTIBLE AMPICILLIN RESISTANT AMPICILLIN/SULBACTAM INTERMEDIATE CEFAZOLIN SUSCEPTIBLE CEFEPIME SUSCEPTIBLE CEFTRIAXONE SUSCEPTIBLE CIPROFLOXACIN SUSCEPTIBLE ERTAPENEM SUSCEPTIBLE GENTAMICIN SUSCEPTIBLE LEVOFLOXACIN SUSCEPTIBLE MEROPENEM SUSCEPTIBLE PIPERACILLIN/TAZOBAC SUSCEPTIBLE TETRACYCLINE RESISTANT TRIMETH/SULFAMETHOX RESISTANT TEST:Blood Culture STATUS:Auth (Verified) BODY SITE: SOURCE:Blood COLLECTED DATE/TIME:01/10/23 6:01 PM Blood Culture SPECIMEN DESCRIPTION : BLOOD NO SITE SPECIAL REQUESTS : NONE CULTURE : NO GROWTH 5 DAYS. REPORT STATUS : FINAL 01/15/2023 TEST:Blood Culture, Second Order STATUS:Auth (Verified) BODY SITE: SOURCE:Blood COLLECTED DATE/TIME:01/10/23 6:01 PM Blood Culture, Second Order SPECIMEN DESCRIPTION : BLOOD NO SITE SPECIAL REQUESTS : NONE CULTURE : NO GROWTH 5 DAYS. REPORT STATUS : FINAL 01/15/2023 Radiology Reports * Exam Date Time Procedure Performing Provider Status 02/01/23 9:50 AM IR End of Case Report Aut h (Verified) IR End of Case Report * Exam Date Time Procedure Performing Provider Status 02/01/23 9:50 AM IR Venous Access Device Removal Auth (Verified) Notes: (IR Venous Access Device Removal) Reason For Exam: pls remove bañuelos catheter IV abx not needed;Other: IR Venous Access Device Removal Patient: TITO RICHARDSON Study Date: 02/01/2023 Performing: Raven Guardado PA-C Referring: : 1965 Age: 57 Gender: MALE Pre-procedure diagnosis and Indication: Left IJ Bañuelos removal. Placed 01/27/23 for antibiotics (osteomyelitis right foot- s/p BKA). No longer needed- request for removal. Exam: Prior to the procedure, the patient was seen and the nature of the procedure explained along with its attendant risks and benefits to general consent for continuation of care through an dairy and food laboratory assistant. PROCEDURE: HISTORY/INDICATION: 57 year old male?with left internal jugular vein?(IJ) approach?tunneled central venous catheter (Bañuelos)?placed on 01/27/23 in IR?for antibiotic therapy, catheter no longer required. PROCEDURE: Left IJ Bañuelos?removal. PROCEDURE DESCRIPTION: Right IJ Bañuelos?removed with manual traction.? Hemostasis achieved, site cleaned, sterile dressing applied.? Patient tolerated the catheter removal well. COMPLICATIONS: None EBL: None IMPRESSION: Successful removal of left IJ Bañuelos Fluoroscopy time and dose Total Fluoro Time: 0 mins Total dose 0 mGy Total DAP 0 - ?Gy/m2 No contrast was used for this procedure Signed By Raven Guardado PA-C On 02/01/2023 11:38:58 Raven Guardado PA-C, Sidak MD Dictated By: Raven Beckman Dictated Date/Time: 02/01/23 9:50 am Reviewed By: Raven Beckman Signed By: Raven Beckman Signed Date/Time: 02/01/23 9:50 am Transcribed By: ADDIS Transcribed Date/Time: 02/01/23 9:50 am * Exam Date Time Procedure Performing Provider Status 01/29/23 1:10 AM Chest Portable Gina Childs; Auth (Verified) Notes: (Chest Portable) Reason For Exam: Fever RESULT: Chest Portable Chest Portable Reason: Fever; Clinical Question(s): Pneumonia COMPARISON: 01/26/2023. FINDINGS: Overlying pad limits evaluation. LINES AND TUBES: Left PICC with tip in SVC.. LUNGS AND PLEURA: Low lung volumes. No focal consolidation. Normal pulmonary vascularity. No pleural effusion. No pneumothorax. HEART, MEDIASTINUM AND YEFRI: Unchanged cardiomediastinal silhouette. BONES AND SOFT TISSUES: No acute abnormality. Partially visualized left-sided upper extremity stent. Surgical clips in the right upper quadrant. IMPRESSION: No acute abnormality. WSN: [id number] Ordering Physician: Praneeth Ariza Dictated By: Aidee Mckeon MD Dictated Date/Time: 01/29/23 7:52 am Reviewed By: Aidee Mckeon MD Signed By: Aidee Mckeon MD Signed Date/Time: 01/29/23 7:52 am Transcribed By: MADYSON Transcribed Date/Time: 01/29/23 7:48 am * Exam Date Time Procedure Performing Provider Status 01/27/23 8:29 AM IR End of Case Report Nito fied IR End of Case Report * Exam Date Time Procedure Performing Provider Status 01/27/23 8:29 AM IR Bañuelos Insertion Auth (Verified) Notes: (IR Bañuelos Insertion) Reason For Exam: Other: IR Bañuelos Insertion Patient: TITO RICHARDSON Study Date: 01/27/2023 Performing: Gus Garcia DO Referring: : 1965 Age: 57 Gender: MALE PROCEDURE: Tunneled central venous catheter placement Procedural Personnel Attending physician(s): uGs Garcia DO Fellow physician(s): None Resident physician(s): None Advanced practice provider(s): None Pre-procedure diagnosis: ESRD with DM and osteomyelitis Post-procedure diagnosis: Same Indication: Chronic antibiotic administration Additional clinical history: None Complications: No immediate complications. IMPRESSION: Insertion of left-sided tunneled tunneled single lumen PowerHickman catheter, with tip in the expected location of the cavoatrial junction. Plan: 1. There is no pneumothorax. The catheter may be used immediately. 2. The occluded right brachiocephalic vein could possibly be reopened and stented to improve future central access ( including for HD). Please consult IR to discuss this, if desired. PROCEDURE SUMMARY: - Venous access with ultrasound guidance - Tunneled central venous catheter insertion with fluoroscopic guidance - Additional procedure(s): B/L SVCgrams via B/L IJV, puncture of right IJV with attempted recannulization of occluded right brachiocephalic vein. PROCEDURE DETAILS: Pre-procedure Consent: Informed consent for the procedure including risks, benefits and alternatives was obtained and time-out was performed prior to the procedure. Preparation (MIPS): The site was prepared and draped using all elements of maximal sterile barrier technique including sterile gloves, sterile gown, cap, mask, large sterile sheet, sterile ultrasound probe cover, hand hygiene and cutaneous antisepsis with 2% chlorhexidine. Medical reason for site preparation exception (MIPS): Not applicable Anesthesia/sedation Level of anesthesia/sedation: Moderate sedation (conscious sedation) Anesthesia/sedation administered by: Independent trained observer under attending supervision with continuous monitoring of the patient's level of consciousness and physiologic status Total intra-service sedation time (minutes): 60 Access Local anesthesia was administered. The vessel was sonographically evaluated and determined to be patent. Real time ultrasound was used to visualize needle entry into the vessel and a permanent image was stored. Laterality: Right Vein accessed: Internal jugular vein Access technique: Micropuncture set with 21 gauge needle Venography Indication for venography: Diagnostic angiography - There was no prior catheter-based angiographic study available and a full diagnostic study was performed. The decision to intervene was based on the diagnostic study. Vein catheterized: Right IJV Findings: Occluded right brachiocephalic vein. Attempted to cross with 0.018 but ended up in the azygous system. Terminated attempt and moved to left side. Indication for venography: Diagnostic angiography - There was no prior catheter-based angiographic study available and a full diagnostic study was performed. The decision to intervene was based on the diagnostic study. Vein catheterized: Left IJV Findings: Patent system centrally. Catheter placement An incision was made near the venous access site and the catheter was tunneled subcutaneously to the venous access site and trimmed to appropriate length. The catheter was advanced via a peel-away sheath into the vein under fluoroscopic guidance. Catheter tip location was fluoroscopically verified and a permanent image was stored. Catheter placed: Bard Pro-Line CT Power Bañuelos Lot number: [id number] Catheter size (Namibian): 5 Lumens: Single-lumen Power injectable: Yes Catheter tip: cavoatrial junction Catheter flush: Heparin (10 units/mL) Closure A sterile dressing was applied. Access site closure technique: Tissue adhesive Catheter securement technique: Non-absorbable suture Contrast Contrast agent: Omnipaque 300 Contrast volume (mL): 20 Radiation Dose Fluoroscopy time (minutes): 5 Reference air kerma (mGy): 218 Kerma area product (uGy-m2): 3679.2 Additional Details Additional description of procedure: None Registry event: V/3/g Device used: None Equipment details: None Unique Device Identifiers: Not available Specimens removed: None Estimated blood loss (mL): Less than 10 Standardized report: SIR_TunneledCatheter_v3.1 Attestation Signer name: Gus Garcia I attest that I was present for the entire procedure. I reviewed the stored images and agree with the report as written. Dictated By: Gus Garcia DO Dictated Date/Time: 01/27/23 8:29 am Reviewed By: Gus Garcia DO Signed By: Gus Garcia DO Signed Date/Time: 01/27/23 8:29 am Transcribed By: [facility] Transcribed Date/Time: 01/27/23 8:29 am * Exam Date Time Procedure Performing Provider Status 01/26/23 12:05 PM Chest Portable Soni Chicas (Verified) Notes: (Chest Portable) Reason For Exam: Pleuritic Pain RESULT: Chest Portable Chest Portable Reason: Pleuritic Pain; Clinical Question(s): Atelectasis COMPARISON: Chest radiograph from 10/26/2022. FINDINGS: LINES AND TUBES: None. LUNGS AND PLEURA: Clear lungs. Normal pulmonary vascularity. No pleural effusion. No pneumothorax. HEART, MEDIASTINUM AND YEFRI: Heart is normal in size. Normal mediastinal and hilar contour. BONES AND SOFT TISSUES: No acute abnormality. IMPRESSION: No radiographic evidence of an acute osseous abnormality. I have personally reviewed the images and I agree with this report. WSN: [id number] Ordering Physician: Charo Salinas Dictated By: Kelton Pina MD Dictated Date/Time: 01/26/23 2:07 pm Reviewed By: Odin Salinas MD Signed By: Odin Salinas MD Signed Date/Time: 01/26/23 2:12 pm Transcribed By: MADYSON Transcribed Date/Time: 01/26/23 1:37 pm * Exam Date Time Procedure Performing Provider Status 01/16/23 8:18 PM MRI Ext Lower W+W/O Contrast Right Gareth Buchanan (Verified) Notes: (MRI Ext Lower W+W/O Contrast Right) Reason For Exam: Infection RESULT: MRI Ext Lower W+W/O Contrast Right INDICATION: Heel wound. Question osteomyelitis TECHNIQUE: Multiplanar multisequence MRI of the right hindfoot was obtained with and without intravenous contrast. 15 mL of Clariscan intravenous contrast was administered. COMPARISONS: CT 01/16/2023. Radiographs 01/10/2023 FINDINGS: Bone: Osteomyelitis of the plantar heel with erosion of the plantar medial cortex. Marrow changes to a depth of approximately 10 mm, series 3 image 10. Area of abnormality measures 1.5 x 1.4 x 1.0 cm(AP by TRV by SI), series 10 image 36. Full-thickness chondral loss at the second tarsometatarsal articulation with associated subchondralcystic change and edema within the intermediate cuneiform. Additional degenerative changes at the navicular cuneiform articulation. Soft tissues: Large plantar medial ulceration overlying the area of bony destruction/osteomyelitis.Diffuse subcutaneous edema. No discrete drainable fluid collection. Trace fluid in the posterior recess and within the flexor hallux longus tendon sheath. Chronic appearing split tear of the peroneal brevis. IMPRESSION: Plantar heel osteomyelitis underlying the full-thickness plantar medial ulceration as described above. WSN: [id number] Ordering Physician: Carlie Smith Dictated By: Marcus Nye MD Dictated Date/Time: 01/18/23 7:55 am Reviewed By: Marcus Nye MD Signed By: Marcus Nye MD Signed Date/Time: 01/18/23 7:55 am Transcribed By: MADYSON Transcribed Date/Time: 01/18/23 7:49 am * Exam Date Time Procedure Performing Provider Status 01/16/23 1:[address] Ext Lower W/O Contrast Right Angelo Bunch (Verified) Notes: (CT Ext Lower W/O Contrast Right) Reason For Exam: 57 s/p R heel debridement with mucopuruelnt discharge, necrotic plantarl inc leukocytosis/cellulitis;Infection RESULT: CT Ext Lower W/O Contrast Right CT Ext Lower W/O Contrast Right Reason: Infection; 57 s p R heel debridement with mucopuruelnt discharge, necrotic plantarl inc leukocytosis cellulitis; Clinical Question(s): Foot; Special Instructions: Creatinine 2.8; NO IV CONTRAST; Order Comment: TECHNIQUE: Helical CT without contrast formatted in 3 planes. Weight-based protocol using automatictube modulation was used to optimize exposure parameters. CTDIvol Body: 13.50 mGy, DLP Body: 329 mGy*cm. COMPARISONS: Calcaneus radiographs of 01/10/2023 FINDINGS: Bones and joints: No fracture or dislocation is present. Bone mineralization appears grossly normal. There is a small focus of sclerosis in the lateral aspect of the calcaneus posteriorly. No osseouserosion is noted. There is a questionable small area of periosteal reaction adjacent to the posterolateral margin of the calcaneus in series 204 image 191 and series 203 images 111 through 113. No other periosteal reaction is apparent. Small areas of cystic degenerative change are noted in the medial and middle cuneiform bones, not clinically significant. Soft Tissues: There is extensive subcutaneous emphysema in the plantar portion of the foot posteriorly. Subcutaneous edema extends into the plantar fascia. No foreign body, mass, or fluid collection is demonstrated. There is edema in plantar soft tissues. Extensive vascular calcification is noted. IMPRESSION: No fracture or dislocation. Nonspecific small sclerotic focus in the lateral aspect of the calcaneus with questionable tiny area of periosteal reaction along the posterolateral aspect of this bone. Calcaneal osteomyelitis cannot be excluded and if clinically indicated, MRI examination can be performed for further evaluation. No other evidence of osteomyelitis. Status post extensive debridement along the plantar aspect of the foot posteriorly with extensive subcutaneous emphysema and moderate edema. No mass, fluid collection, or hemorrhage. Extensive vascular calcification. WSN: [id number] Ordering Physician: Lewis Isbell Dictated By: Steve Calvert MD Dictated Date/Time: 01/16/23 2:39 pm Reviewed By: Steev Calvert MD Signed By: Steve Calvert MD Signed Date/Time: 01/16/23 2:39 pm Transcribed By: MADYSON Transcribed Date/Time: 01/16/23 2:26 pm * Exam Date Time Procedure Performing Provider Status 01/10/23 6:20 PM Calcaneus Min 2 Views Right JosueStacey garcia; Auth (Verified) Notes: (Calcaneus Min 2 Views Right) Reason For Exam: Pain RESULT: Calcaneus Min 2 Views Right Calcaneus Min 2 Views Right Hx of Present Illness: Increasing right foot wound x 2weeks. unable to determine depth of wound in triage. malodorous. Increasing pain, redness, swelling. Decreased PO x 3 days. Denies any CP, SOB orn v d; Reason: Pain; Clinical Question(s): Osteomyelitis COMPARISON: None. FINDINGS: No erosive findings identified. Gas seen in the soft tissues in the heel. Extensive vascular calcification noted. IMPRESSION: No specific findings of osteomyelitis. WSN: [id number] Ordering Physician: Cesar Romo Dictated By: Jc Lee MD Dictated Date/Time: 01/10/23 7:31 pm Reviewed By: Jc Lee MD Signed By: Jc Lee MD Signed Date/Time: 01/10/23 7:31 pm Transcribed By: MADYSON Transcribed Date/Time: 01/10/23 7:30 pm Vital Signs Most recent to oldest [Reference Range]: 1 2 3 Height 160 cm (02/01/23 3:21 PM) 160 cm (02/01/23 7:14 AM) 160 cm (01/31/23 2:00 PM) Weight 76.9 kg (01/25/23 8:52 PM) 77 kg (01/25/23 1:38 PM) 77 kg (01/23/23 7:29 AM) Oxygen Saturation [94-100 %] 94 % (02/01/23 3:21 PM) 95 % (02/01/23 7:14 AM) 98 % (02/01/23 4:00 AM) Pulse Rate [55-90 bpm] 86 bpm (02/01/23 3:21 PM) 89 bpm (02/01/23 10:53 AM) 75 bpm (02/01/23 7:14 AM) Body Mass Index [18.5-24.99 kg/m2] 30.04 kg/m2 *>HHI* (01/25/23 8:52 PM) 30.08 kg/m2 *>HHI* (01/25/23 1:38 PM) 30.08 kg/m2 *>HHI* (01/23/23 7:29 AM) Blood Pressure [90-138/55-84 mm Hg] 133/68mm Hg (02/01/23 3:21 PM) 135/89mm Hg (02/01/23 10:53 AM) 135/89mm Hg (02/01/23 10:53 AM) Respiratory Rate [16-30 br/min] 18 br/min (02/01/23 3:21 PM) 16 br/min (02/01/23 12:06 PM) 16 br/min (02/01/23 7:21 AM) Temperature [96.8-100.4 DegF] 98.0 DegF (02/01/23 3:21 PM) 98.1 DegF (02/01/23 7:14 AM) 98.9 DegF (02/01/23 4:00 AM) Liters per Minute 2 L/min (01/25/23 4:30 PM) 6 L/min (01/25/23 4:00 PM) 3 L/min (01/22/23 3:00 AM) Mode of Delivery (Oxygen) Room air (02/01/23 3:21 PM) Room air (02/01/23 7:14 AM) Room air (02/01/23 4:00 AM) Blood pressure sites Arm, right (02/01/23 3:21 PM) Arm, right (02/01/23 4:00 AM) Arm, right (01/31/23 11:00 PM) Temperature Route Oral (02/01/23 3:21 PM) Oral (02/01/23 7:14 AM) Oral (02/01/23 4:00 AM) Dry Weight 77 kg (01/25/23 1:38 PM) 77 kg (01/17/23 7:48 AM) 77 kg (01/11/23 6:08 AM) Weight Obtained Via Bed scale (01/25/23 8:52 PM) Patient/family stated (01/10/23 5:35 PM) Dry Weight Obtained Via Patient/family stated (01/10/23 5:35 PM) Social History Social History Type Response Smoking Status Never (less than 100 in lifetime) entered on: 01/10/23 Sex Consult note * Aby PINEDA, Ute Jara: MODIFY, MODIFY, MODIFY, MODIFY, MODIFY, MODIFY, MODIFY, MODIFY, PERFORM, MODIFY Event Display: Consultation Note Authored Date: Patient: ??TITO RICHARDSON ? Age:??57 Years?Sex:??Male?:??1965?? History of Present Illness Reason for Follow-up: Calcaneal osteomyelitis ?? Interval Events: On 01/14, he developed a low grade temp of 100.4 and leukocytosis uptrended.??On 01/16, he was broadened to clindamycin and vancomycin. He was taken to the OR 01/17 for repeat debridement of nonviable necrotic skin, soft tissue, fascia, and muscle with purulence and placement of george drain. He remains afebrile and hemodynamically stable. ?? Antimicrobials: Piperacillin/tazobactam 01/10, 01/12 to present Vancomycin 01/10, 01/12, 01/16, 01/18 to present Clindamycin 01/16 to present Review of Systems He denies fever, rigors, shortness of breath, cough, abdominal pain, nausea, vomiting, diarrhea, orrash. ?? Physical Exam Vitals & Measurements 01/19/2023 12:21?Pulse Rate ?86 bpm 01/19/2023 12:21?Systolic Blood Pressure ?133 mm Hg ? 01/19/2023 12:21?Diastolic Blood Pressure ?76 mm Hg ? GENERAL:Alert, in no acute distress.?? HEENT: Anicteric, no subconjunctival petechiae. Moist oral mucosa without lesions or thrush. CARDIOVASCULAR:??Regular rate and rhythm. No peripheral stigmata of endocarditis.?? RESPIRATORY:??Lungs clear to auscultation.?? GASTROINTESTINAL: Non-distended, normoactive bowel sounds, non-tender. MUSCULOSKELETAL: No gross deformity. SKIN: ??No diffuse rash present. Ariadne wrap to R foot not taken down per patient request, no surrounding erythema noted. NEUROLOGICAL/PSYCH:??A&Ox3, grossly intact.?? LINES:??PIV without erythema or pain.? Micro: OR R heel tissue 01/12/23: E. coli, GBS, Bacteroides thetaiotaomicron Blood cultures x2 01/10/23: Negative Assessment/Plan The patient is a 57 year old male with past medical history of poorly controlled diabetes mellitus,chronic kidney disease status post renal transplantation 2014 maintained on prednisone and tacrolimus, neuropathy, left extremity AV fistula, R5 amputation who was admitted 01/10 for diabetic foot infection complicated by DKA. He was initially started on piperacillin/tazobactam and vancomycin and wilian en to the OR on 01/12 for debridement necrotic subcutaneous tissue, fascia, muscle to the right heelwith purulence evacuated and no exposed bone and tissue sent for culture grew out??E. coli, Bacteroides, and group B Strep. He was last seen by ID 01/14. On 01/14, he developed a low grade temp of 100.4 and leukocytosis uptrended.??On 01/16, he was broadened to clindamycin and vancomycin. MRI from 01/16 revealed plantar heel osteomyelitis underlying the full-thickness plantar medial ulceration. He was taken to the OR 01/17 for repeat debridement of nonviable necrotic skin, soft tissue, fascia, and muscle with purulence and placement of george drain. Operative note states that the calcaneus was palpated and appeared to be well calcified. Plan for repeat debridement 01/21. Can continue piperacillin/tazobactam and final antibiotic plan will be based off of 01/21 surgical findings. ?? - Continue piperacillin/tazobactam - Stop clindamycin - Stop vancomycin ? ID is following with you, ?? SUE Hernandez- Division of Infectious Diseases ?? Discussed with ??Will (This note was dictated using the Gent[employer] software and any typographical/grammatical errors were notdeliberate. Please contact provider for clarifications.) Problem List/Past Medical History Ongoing Obese class I Procedure/Surgical History ???Debridement of hindfoot, right (01/17/2023) Allergies morphine Social History Alcohol Frequency: 1-2 times per year. Tobacco Use: Never (less than 100 in lifetime). Lab Results Test Name Test Result Date/Time WBC 9.9 k/mm3 01/19/2023 05:07 EDT Hgb 10.1 Gm/dL 01/19/2023 05:07 EDT Platelet Count 275 k/mm3 01/19/2023 05:07 EDT Sodium 133 mmol/L 01/19/2023 05:07 EDT Potassium 4.4 mmol/L 01/19/2023 05:07 EDT BUN 20 mg/dL 01/19/2023 05:07 EDT Creatinine-Blood 2.7 mg/dL 01/19/2023 05:07 EDT Alkaline Phosphatase 260 units/L 01/19/2023 05:07 EDT AST (SGOT) 12 units/L 01/19/2023 05:07 EDT ALT (SGPT) 11 units/L 01/19/2023 05:07 EDT Bilirubin, Total 0.6 mg/dL 01/19/2023 05:07 EDT Diagnostic Results (01/16/2023 20:18 EDT MRI Ext Lower W+W/O Contrast Right) FINDINGS: Bone: Osteomyelitis of the plantar heel with erosion of the plantar medial cortex. Marrow changes to a depth of approximately 10 mm, series 3 image 10. Area of abnormality measures 1.5 x 1.4 x 1.0 cm(AP by TRV by SI), series 10 image 36. Full-thickness chondral loss at the second tarsometatarsal articulation with associated subchondralcystic change and edema within the intermediate cuneiform. Additional degenerative changes at the navicular cuneiform articulation. Soft tissues: Large plantar medial ulceration overlying the area of bony destruction/osteomyelitis.Diffuse subcutaneous edema. No discrete drainable fluid collection. Trace fluid in the posterior recess and within the flexor hallux longus tendon sheath. Chronic appearing split tear of the peroneal brevis. ?? IMPRESSION:Plantar heel osteomyelitis underlying the full-thickness plantar medial ulceration as described above. [1] [1]??MRI Ext Lower W+W/O Contrast Right; Marcus Nye MD 01/16/2023 20:18 EDT * Do Solis MD: PERFORM Event Display: Consultation Note Authored Date: I reviewed the chart and discussed the case with SUE Hernandez. The above plan was developed in conjunction with me and I agree with it as written. ?Do Solis MD, MPH ? * Vipul SEVERINO, [facility]: MODIFY, PERFORM Event Display: Consultation Note Authored Date: Patient: ??TITO RICHARDSON ? Age:??57 Years?Sex:??Male?:??1965?? Chief Complaint/Reason for Consultation Reason of consult: Worsening leucocytosis Consulting physician: Dr.DelPilar- Julio MD Requesting physician: MD Aneta History of Present Illness This is a 57 years old male with past medical history of poorly controlled diabetes mellitus, chronic kidney disease status post renal transplantation 2014 maintained on prednisone and tacrolimus, neuropathy, left extremity AV fistula, R5 amputation who presented to the hospital on 01/10 for diabetic foot infection complicated by DKA. ?? Patient developed a wound over his right heel months prior to presentation. ??He is managed at wound clinic at [facility]. ??He was never prescribed antibiotic therapy. ??In the past 2 weeks,??his??wound was progressively worsening.?? He was reportedly evaluated at [facility] 2 weeks prior had an x-ray which did not show any evidence of osteomyelitis and patient was discharged home.?? His pain became progressively worse started developing fevers, chills, and foul-smelling odor. ?? At the time of presentation to the ED, the patient was afebrile, tachycardic and white count notable for WBC of 22.3 with neutrophilic predominance, hyperglycemia, ketosis, bicarb of 10 and a gap of 17.?? Blood cultures drawn at that time were negative and UA with 4+ glucose and ketones.?? X-ray ofthe calcaneus of the right did not show any erosive findings but gas in soft tissues of the heel with extensive vascular calcifications.,?? He was admitted and started on Vanco and Zosyn??initiated on DKA protocol and followed by BIDS.?? He was subsequently evaluated by vascular surgery.?? HENNY performed and was 1.8 bilaterally with abnormal toe brachial index.?? Patient was taken to the OR on 01/12 for debridement.?? The central necrotic portion of the heel ulcer was removed,.?? From the deepestportion of the wound, purulence was noted and tissues were sent for culture.?? Tracking deeper intothe wound, there was discoloration of tissue concerning for further necrotic tissue and was also rem valerie.?? There was no evidence of exposed bone.?? In all, necrotic fascia, muscle and subcutaneous tissue was excisionally removed for final wound margins 4 x 3 x 6.?? He is planned for possible VAC placement today or tomorrow. He remained to be afebrile with Tmax of 100.1.?? Course complicated by diarrhea on 01/12 for which she was tested for C. difficile and came back negative.?? White counts were downtrending up to 01/13-21.8 and subsequently increased to 24.6 on 01/14 with neutrophilia 21.1.?? Blood cultures continue to not show any growth.?? Tissue cultures showing 4+ E. coli susceptible to Zosyn, Bacteroides and group B strep. ?? At the time of my assessment, the patient does endorse having nausea, crampy abdominal pain and diarrhea for years.?? This is particularly worse with food ingestion.?? He does state that at times,??he will not be able to absorb pills??and would see them??in his toilet.?? He denied having any??other symptoms including cough, chest pain, shortness of breath,??upper respiratory symptoms,??urinarysymptoms,??or any soft tissue rash. Review of Systems Review of systems is negative as mentioned above Objective Vital Signs?? Temperature: 100 DegF (01/14/23 08:34:00) Temperature Route: Oral (01/14/23 08:34:00) Pulse Rate:??94 bpm??High (01/14/23 09:20:00) Respiratory Rate: 16 br/min (01/14/23 09:20:00) Systolic Blood Pressure:??139 mm Hg??High (01/14/23 09:20:00) Systolic Blood Pressure:??139 mm Hg??High (01/14/23 09:20:00) Diastolic Blood Pressure:??48 mm Hg??Low (01/14/23 09:20:00) Diastolic Blood Pressure:??48 mm Hg??Low (01/14/23 09:20:00) Blood pressure sites: Arm, right (01/14/23 08:34:00) Mean Arterial Pressure: 78 mm Hg (01/14/23 08:34:00) Pulse Pressure: 91 mm Hg (01/14/23 08:34:00) Oxygen Saturation: 95 % (01/14/23 08:34:00) Mode of Delivery (Oxygen): Room air (01/14/23 08:34:00) Early Warning Score: 6 (01/14/23 09:29:37) ? Physical Exam Recent Vital Signs Temperature: 98.3 DegF (01/14/23 12:00:00) Pulse Rate:??94 bpm??High (01/14/23 09:20:00) Respiratory Rate: 16 br/min (01/14/23 16:19:00) Systolic Blood Pressure:??139 mm Hg??High (01/14/23 09:20:00) Systolic Blood Pressure:??139 mm Hg??High (01/14/23 09:20:00) Diastolic Blood Pressure:??48 mm Hg??Low (01/14/23 09:20:00) Diastolic Blood Pressure:??48 mm Hg??Low (01/14/23 09:20:00) Oxygen Saturation: 95 % (01/14/23 08:34:00)? General Appearance: The patient is in NAD. Cardiovascular: RRR S1 and S2 heard with no M/R/G. No JVD. Respiratory: ??Breath sounds clear to auscultation bilaterally. No wheezing. Good air movement throughout both lungs. GI: Soft. tenderness in epigastric area with no rebound. MS:?Dressing in right foot. Neuro: ??No slurred speech. ??Patient seen moving their upper and lower extremities independently. Psych: Alert and oriented x3. Appropriate and pleasant. CAM negative. Lines: Peripheral IV in place.?? Assessment/Plan This is a 57 years old male with past medical history of poorly controlled diabetes mellitus, chronic kidney disease status post renal transplantation 2014 maintained on prednisone and tacrolimus, neuropathy, left extremity AV fistula, R5 amputation who presented to the hospital on 01/10 for diabetic foot infection complicated by DKA. He is status post wound debridement with polymicrobial tissue cultures. ID consulted for persistent leucocytosis. ?? Polymicrobial diabetic wound infection Leukocytosis Concern for diabetic gastroparesis Patient has diabetic foot infection.?Bacteroides, group B strep, E. coli??will be best covered by Zosyn monotherapy at this point and can discontinue vancomycin.?? Can consider discharging the patient on cefdinir which has a liquid form??that can be easier for the patient to take??given nausea and vomiting along with metronidazole to give him adequate coverage. Leukocytosis is most likely reactive??and not infectious specially that the patient is??on chronic steroid therapy and??has recently??been taken to the OR.?? No evidence of any new localizing signs of infection. The nausea and vomiting??along with cramping abdominal pain specially with food ingestion??is concern for gastric??paresis??and??malabsorption.?? He was never worked up for it before??and should be considered for??further studies including??stool studies,??TSH, celiac screen,??and??scintigraphy testing??to rule out gastroparesis.? Recommendations: -DC vancomycin continue Zosyn -cefdinir??and metronidazole??for outpatient??course to complete??10 days -Consider evaluation??by GI??for malabsorption ?? Recommendations??communicated to primary team ?? This patient was discussed with ?? Ivett Matthew MD PGY-3 Internal Medicine Cortext / pg#[id number] Histories Allergies Allergies ?(Active and Proposed Allergies Only) morphine? (Severity: Unknown severity, Onset: Unknown) ? Past Medical History/Problem List Active Problems??(1) Obese class I ? Past Surgical History No surgery history documented. ? Social History Alcohol Details:??Frequency: 1-2 times per year. Tobacco Details:??Use: Never (less than 100 in lifetime). ? Family History No family history recorded. ? Medications Home Medications Amlodipine (amLODIPine 5 mg oral tablet)?1?tab(s)?5?Milligram?By Mouth?Daily?TAKE ONE TABLET EVERY MORNING Atorvastatin (atorvastatin 10 mg oral tablet)?1?tab(s)?10?Milligram?By Mouth?Daily?TAKE ONE TABLET EVERY MORNING Calcitriol (calcitriol 0.5 mcg oral capsule)?1?capsule?0.5?Microgram?By Mouth?Daily?TAKE ONE CAPSULE EVERY MORNING Duloxetine (duloxetine 20 mg oral enteric coated capsule)?1?capsule?20?Milligram?By Mouth?Daily?TAKE ONE CAPSULE EVERY MORNING Gabapentin (gabapentin [...] hours Loperamide (loperamide 2 mg oral capsule)?2?Milligram?1?capsule?By Mouth?as needed?TAKE ONE CAPSULE AFTER FIRST LOOSE STOOL AND ONE AFTER each NEXT BOWEL MOVEMENT, DO NOT EXCEED EIGHT CAPSULES IN 24 HOURS?as needed for loose stool Metoprolol (Metoprolol Succinate ER 25 mg oral tablet, extended release)?1?tab(s)?25?Milligram?By Mouth?Daily?TAKE ONE TABLET EVERY MORNING Oxycodone (oxyCODONE 5 mg oral tablet)?5?Milligram?1?tablet?By Mouth?Every 8 hours?TAKE ONE TABLET EVERY 8 HOURS NEEDED FOR PAIN PredniSONE (predniSONE 10 mg oral tablet)?1?tab(s)?10?Milligram?By Mouth?Daily?TAKE [...] Recent Labs BLOOD COUNT & DIFF WBC 24.6 k/mm3 (High)?? 01/14/2023 05:17 RBC 4.43 m/mm3 (Low)?? 01/14/2023 05:17 Hgb 11.7 Gm/dL (Low)?? 01/14/2023 05:17 Hct 36.7 % (Low)?? 01/14/2023 05:17 MCV 82.8 femtoliters ()?? 01/14/2023 05:17 MCH 26.4 pg (Low)?? 01/14/2023 05:17 MCHC 31.9 g/dL (Low)?? 01/14/2023 05:17 Platelet Count 298 k/mm3 ()?? 01/14/2023 05:17 RDW-SD 45.9 femtoliters ()?? 01/14/2023 05:17 MPV 10.7 femtoliters ()?? 01/14/2023 05:17 Nucleated RBC (Automated) 0.0 #/100 WBC'S ()?? 01/14/2023 05:17 Abs. NRBC 0.0 k/mm3 ()?? 01/14/2023 05:17 Abs. Neut 21.1 k/mm3 (High)?? 01/14/2023 05:17 Abs. Lymph 1.3 k/mm3 ()?? 01/14/2023 05:17 Abs. Cherry 1.8 k/mm3 (High)?? 01/14/2023 05:17 Abs. Eo 0.2 k/mm3 ()?? 01/14/2023 05:17 Abs. Baso 0.1 k/mm3 ()?? 01/14/2023 05:17 Neut % 85.5 % (High)?? 01/14/2023 05:17 Lymph % 5.4 % (Low)?? 01/14/2023 05:17 Cherry % 7.4 % ()?? 01/14/2023 05:17 Eos % 0.6 % ()?? 01/14/2023 05:17 Baso % 0.2 % ()?? 01/14/2023 05:17 Platelet Comment MODERATE ()?? 01/14/2023 05:17 Imm Gran 0.9 % ()?? 01/14/2023 05:17 Abs. Imm Gran 0.2 k/mm3 ()?? 01/14/2023 05:17 ?? CHEM GENERAL Sodium 135 mmol/L ()?? 01/14/2023 05:17 Potassium 3.7 mmol/L ()?? 01/14/2023 05:17 Chloride 104 mmol/L ()?? 01/14/2023 05:17 Bicarbonate Level 18 mmol/L (Low)?? 01/14/2023 05:17 Anion Gap 13 ()?? 01/14/2023 05:17 Glucose Level 81 mg/dL ()?? 01/14/2023 05:17 Glucose, POC 74 mg/dL ()?? 01/14/2023 08:16 BUN 28 mg/dL (High)?? 01/14/2023 05:17 Creatinine-Blood 2.8 mg/dL (High)?? 01/14/2023 05:17 Estimated GFR Creatinine 25 ML/MIN/1.73 M2 ()?? 01/14/2023 05:17 Calcium 8.3 mg/dL (Low)?? 01/14/2023 05:17 Phosphorus 2.1 mg/dL (Low)?? 01/13/2023 05:19 Magnesium 1.8 mg/dL ()?? 01/13/2023 05:19 Protein, Total 5.1 Gm/dL (Low)?? 01/14/2023 05:17 Albumin 2.4 Gm/dL (Low)?? 01/14/2023 05:17 AG Ratio 0.9 ()?? 01/14/2023 05:17 Alkaline Phosphatase 156 units/L (High)?? 01/14/2023 05:17 AST (SGOT) 21 units/L ()?? 01/14/2023 05:17 ALT (SGPT) 12 units/L ()?? 01/14/2023 05:17 Bilirubin, Total 1.2 mg/dL ()?? 01/14/2023 05:17 C-Reactive Protein 17.0 mg/dL (High)?? 01/13/2023 05:19 ?? HEME OTHER Sed Rate 86 mm/hr (High)?? 01/13/2023 05:18 ?? TOXICOLOGY/TDM Tacrolimus Level 21.7 ng/mL (High)?? 01/13/2023 05:18 ?? URINE OTHER Est Creatinine Clearance 23.42 mL/min ()?? 01/14/2023 06:30 ? Abnormal Labs ?? BLOOD COUNT & DIFF ??Abs. Imm Gran ??0.2 k/mm3 () ??01/14/2023 05:17 ??Abs. Cherry ??1.8 k/mm3 (High) ??01/14/2023 05:17 ??Abs. NRBC ??0.0 k/mm3 () ??01/14/2023 05:17 ??Abs. Neut ??21.1 k/mm3 (High) ??01/14/2023 05:17 ??Hct ??36.7 % (Low) ??01/14/2023 05:17 ??Hgb ??11.7 Gm/dL (Low) ??01/14/2023 05:17 ??Imm Gran ??0.9 % () ??01/14/2023 05:17 ??Lymph % ??5.4 % (Low) ??01/14/2023 05:17 ??MCH ??26.4 pg (Low) ??01/14/2023 05:17 ??MCHC ??31.9 g/dL (Low) ??01/14/2023 05:17 ??Neut % ??85.5 % (High) ??01/14/2023 05:17 ??Nucleated RBC (Automated) ??0.0 #/100 WBC'S () ??01/14/2023 05:17 ??Platelet Comment ??MODERATE () ??01/14/2023 05:17 ??RBC ??4.43 m/mm3 (Low) ??01/14/2023 05:17 ??RDW-SD ??45.9 femtoliters () ??01/14/2023 05:17 ??WBC ??24.6 k/mm3 (High) ??01/14/2023 05:17 ? CHEM GENERAL ??AG Ratio ??0.9 () ??01/14/2023 05:17 ??Albumin ??2.4 Gm/dL (Low) ??01/14/2023 05:17 ??Alkaline Phosphatase ??156 units/L (High) ??01/14/2023 05:17 ??BUN ??28 mg/dL (High) ??01/14/2023 05:17 ??Bicarbonate Level ??18 mmol/L (Low) ??01/14/2023 05:17 ??Calcium ??8.3 mg/dL (Low) ??01/14/2023 05:17 ??Creatinine-Blood ??2.8 mg/dL (High) ??01/14/2023 05:17 ??Estimated GFR Creatinine ??25 ML/MIN/1.73 M2 () ??01/14/2023 05:17 ??Protein, Total ??5.1 Gm/dL (Low) ??01/14/2023 05:17 ? Note: Critical results are displayed in red. ? LFT Albumin:??2.4 Gm/dL??Low (05:17) Alkaline Phosphatase:??156 units/L??High (05:17) ALT (SGPT): 12 units/L (05:17) AST (SGOT): 21 units/L (05:17) Bilirubin, Total: 1.2 mg/dL (05:17) ?? Urinalysis Est Creatinine Clearance: 23.42 mL/min (06:30) ?? * Sorin SEVERINO, Milton Walsh: PERFORM Event Display: Consultation Note Authored Date: [id number] ATTENDING ADDENDUM: Patient evaluated and discussed with resident physician Dr. Matthew.?? Reviewed history, physical exam, and assessment.?? Agree with findings and recommendations.?? Patient being evaluated due to heel wound with associated leukocytosis.?? Regarding the wound itself it does appear to be polymicrobial, somewhat expected for a wound in a diabetic patient that has a significant ischemic component.?? Atthis time since no concerning gram-positive cocci such as staph identified, vancomycin can be discontinued.?? While the patient remains here in the hospital he can continue on therapy with Zosyn but once ready for discharge could transition to therapy with cefdinir metronidazole to cover all identified organisms. ?? In terms of the leukocytosis this is likely related to patient reacting to not only the ischemia inhis heel but also the interventions have been done.?? Would want to see if the patient has [facility] that show evidence of leukocytosis that could perhaps be compared to present values.?? Will defer further assessment of this to primary team and perhaps hematology ifnoted to be chronic. ?? Concern about the patient's intestinal symptomatology highly suspicious for gastroparesis with perhaps a component of a chronic gastritis (H. pylori?).?? Believe the patient would benefit from evaluation by gastroenterology to further assess since he refers that he has seen pills he takes, out of the stool.?? When discussing this with the patient he refers that he was given more than agreeable tohave endoscopy to further assess. ?? At this time there is no identifiable no source of infection.?? Would suggest antibiotic therapy for at least a couple of weeks total for the management of complicated skin and soft tissue infection.?? No evidence of osteomyelitis by surgical notes or imaging.?? Other issues to be further assessed by primary team.?? Again leukocytosis does appear to be reactive.?? We will sign off case but will be happy to reevaluate if new findings identified that might change this assessment. * Sherif Amaya MD: VERIFY, PERFORM, SIGN Event Display: Consult Authored Date: [id number] Patient: TITO RICHARDSON Age: 57 years Sex: Male : 1965 Associated Diagnoses: None Author: Sherif Amaya MD Overnight Events & Current Issues RTANE CONSULTED BEATRIZ on CKD in Xplant PT with DM and foot infection PT will be seen this am and full consult to follow Physical Examination Vital Signs Vitals : VITALS 01/11/2023 6:08 EDT Early Warning Score 4.00 01/11/2023 6:08 EDT Height 160 cm Weight 77 kg Dry Weight 77 kg Body Mass Index 30.08 kg/m2 >HHI Body surface area 1.85 BSA [place] 1.8 Weight lb/oz 169 lb 12 oz Temperature 98.5 DegF Temperature Route Oral Pulse Rate 90 bpm Respiratory Rate 19 br/min Systolic Blood Pressure 142 mm Hg H Diastolic Blood Pressure 88 mm Hg H Blood pressure sites Arm, right Mean Arterial Pressure 106 mm Hg Pulse Pressure 54 mm Hg Oxygen Saturation 97 % Mode of Delivery (Oxygen) Room air 01/11/2023 5:42 EDT Pain Intensity 5 01/11/2023 4:34 EDT Early Warning Score 4.00 01/11/2023 4:00 EDT Temperature 98.6 DegF Temperature Route Oral 01/11/2023 3:44 EDT Early Warning Score 4.00 01/11/2023 3:43 EDT Height 160 cm Weight 77 kg Dry Weight 77 kg Body Mass Index 30.08 kg/m2 >HHI Body surface area 1.85 BSA [place] 1.8 Weight lb/oz 169 lb 12 oz Pulse Rate 85 bpm Respiratory Rate 19 br/min Systolic Blood Pressure 136 mm Hg Diastolic Blood Pressure 90 mm Hg H Blood pressure sites Arm, right Mean Arterial Pressure 105 mm Hg Pulse Pressure 46 mm Hg Oxygen Saturation 97 % Mode of Delivery (Oxygen) Room air 01/10/2023 22:47 EDT Early Warning Score 6.00 01/10/2023 20:57 EDT Height 160 cm Weight 77 kg Dry Weight 77 kg Body Mass Index 30.08 kg/m2 >HHI Body surface area 1.85 BSA [place] 1.8 Weight lb/oz 169 lb 12 oz Temperature 99.1 DegF Temperature Route Oral Pulse Rate 92 bpm H Respiratory Rate 20 br/min Systolic Blood Pressure 124 mm Hg Diastolic Blood Pressure 80 mm Hg Blood pressure sites Arm, right Mean Arterial Pressure 95 mm Hg Pulse Pressure 44 mm Hg Oxygen Saturation 95 % Mode of Delivery (Oxygen) Room air 01/10/2023 18:55 EDT Temperature 98.6 DegF Temperature Route Oral Pulse Rate 85 bpm Respiratory Rate 19 br/min Systolic Blood Pressure 137 mm Hg Diastolic Blood Pressure 77 mm Hg Blood pressure sites Arm, right Pulse Pressure 60 mm Hg Oxygen Saturation 96 % Mode of Delivery (Oxygen) Room air 01/10/2023 17:35 EDT Height 160 cm Weight 77 kg Dry Weight 77 kg Body Mass Index 30.08 kg/m2 >HHI Body surface area 1.85 BSA [place] 1.8 Weight lb/oz 169 lb 12 oz Temperature 98.5 DegF Temperature Route Oral Pulse Rate 104 bpm H Respiratory Rate 18 br/min Systolic Blood Pressure 130 mm Hg Diastolic Blood Pressure 71 mm Hg Blood pressure sites Arm, right Mean Arterial Pressure 91 mm Hg Pulse Pressure 59 mm Hg Oxygen Saturation 99 % Mode of Delivery (Oxygen) Room air 01/10/2023 17:33 EDT 1 - 10 pain scale score 6 . Weight : Weight lb/oz 01/11/2023 6:08 EDT Weight lb/oz 169 lb 12 oz 01/11/2023 3:43 EDT Weight lb/oz 169 lb 12 oz 01/10/2023 20:57 EDT Weight lb/oz 169 lb 12 oz . BMI : Body Mass Index 01/11/2023 6:08 EDT Body Mass Index 30.08 kg/m2 >HHI 01/11/2023 3:43 EDT Body Mass Index 30.08 kg/m2 >HHI 01/10/2023 20:57 EDT Body Mass Index 30.08 kg/m2 >HHI . * Radu PINEDA, Nancy Rodriguez: MODIFY, MODIFY, MODIFY, PERFORM, MODIFY, MODIFY, MODIFY, MODIFY, MODIFY Event Display: Consultation Note Authored Date: [id number] Patient: ??TITO RICHARDSON ? Age:??57 Years?Sex:??Male?:??1965?? Reason for Consultation T2DM- hyperglycemia History of Present Illness In review this??is a 57-year-old male with a history of diabetes, chronic kidney disease status post kidney transplant 2013 (on prednisone and tacrolimus), neuropathy, left upper extremity AV fistula, who presented??yesterday to the ED with diabetic foot wound on the right heel. BIDS was consulted to assist with glycemic control. ?? HbA1c added on. ??Patient reports that he has had type 2 diabetes since he was 16 years old. ?? BG review:??There are currently 2 blood sugars in our system??since admission??which are trending between 332-415. ?? Hospital medications: Lantus 24 units daily Lispro sliding scale starting at 3 units per 70, increase 2 for 50, 3 times daily before meals. ?? Home medications: Lantus 48 units in the evening Insulin aspart??6 units at breakfast,??6units at lunch,??6 units at dinner. ?? DM complications: Eyes:??Patient reports??cataract surgery??about 8 years ago. Renal: CKD Neuropathy:??Present in hands and feet. ?? DM family history: Mother and sister type II DM. Review of Systems ?Review of Systems: Constitutional: denies fatigue, denies fever, denies weight gain/loss Eyes: denies visual complaints Ears, Nose, Mouth, Throat: denies sore throat, denies dysphagia Cardiovascular: denies chest pain, denies palpitation, denies history of heart disease Respiratory: denies cough, denies shortness of breath Gastrointestinal: denies nausea, denies vomiting, denies diarrhea, denies constipation Genitourinary: denies frequent urination Musculoskeletal: denies myalgia, denies arthralgia Integumentary: denies rash Neurological: denies tremors In addition, a detailed review of system was done from patient intake form and was reviewed.? Physical Exam Vitals & Measurements T:??98.7?F?? TMIN:??98.5?F?? TMAX:??99.1?F?? HR:??80??(Peripheral)?? RR:??20?? BP:??128/79?? SpO2:??99%?? WT:??77??kg?? General appearance: No apparent distress Neuro: A&Ox3, answers questions appropriately and moving all extremities HEENT: Head normocephalic, atraumatic, mucous membranes pink and moist, nares patent, neck supple, trachea midline Cardiac: RRR Respiratory: Normal I:E GI: Abd soft Integ: [place], warm, dry and intact Vascular: Bilateral DPs 2+, ??no edema Psych: calm and cooperative Assessment/Plan In review this??is a 57-year-old male with a history of diabetes, chronic kidney disease status post kidney transplant 2013 (on prednisone and tacrolimus), neuropathy, left upper extremity AV fistula, who presented??yesterday to the ED with diabetic foot wound on the right heel. BIDS was consulted to assist with glycemic control. ?? HbA1c added on.?? Patient currently NPO. ??Patient denies??nausea vomiting, endorses diarrhea. ?? The only blood sugars in our system are currently 332 and 415 this AM. ??Most recent labs as of??6 AM this morning shows??bicarb 9, anion gap 19.Beta hydroxybutyrate 1.34 as of yesterday at 6 PM. ??At this time we recommend that??continue on insulin drip until DKA resolution, Bicarb >18, BG's<250mg/dL, and he is able to tolerate PO intake. ??We recommend recheck of electrolytes??and beta hydroxybutyrate??later today to track??his trends. ??His dosing will be determined when we get closer to the time of transition, based on insulin drip requirements. ? Plan: Continue on insulin drip based on DKA protocol. ?? Recommendations: If primary team transitions patient??to basal bolus??insulin regimen??prior to??tomorrow a.m.??please use the following regimen, calculated based on 0.38 units/kg: -Start Lantus 30 units??daily -Start lispro??sliding scale starting at 2 units per 100,??increase 2 units per 50, 3 times daily before meals. ?? Discharge Recs: Sent home on final inpatient basal bolus dosing. Problem List/Past Medical History Ongoing Obese class I Medications Inpatient Acetaminophen Tablet, 650 mg, By Mouth, Every 4 hours, PRN amLODIPine 5 mg oral tablet, 5 mg, By Mouth, Daily atorvastatin 10 mg oral tablet, 10 mg, By Mouth, Daily calcitriol 0.25 mcg oral capsule, 0.5 mcg, By Mouth, Daily D5%W 1,000 mL + Sodium Bicarbonate Cont IV 150 mEq Docusate Sodium Capsule, 100 mg= 1 capsule, By Mouth, 2 times a day Duloxetine, 20 mg, By Mouth, Daily gabapentin 100 mg oral capsule, 100 mg, By Mouth, Daily at bedtime hydrOXYzine hydrochloride 10 mg oral tablet, 10 mg, By Mouth, 2 times a day Insulin Glargine Inj, 24 units= 0.24 mL, Subcutaneous Injection, Daily at bedtime Insulin LISPRO Scale, 3-15 units, Subcutaneous Injection, 3 times a day before meals Lidocaine 5% Patch, 2 each, Topically, Daily Metoprolol Succinate ER 25 mg oral tablet, extended release, 25 mg, By Mouth, Daily Remove Lidocaine Patch, 2 each, Topically, Daily at bedtime sodium bicarbonate 650 mg oral tablet, 1300 mg, By Mouth, 3 times a day tacrolimus 1 mg oral capsule, 2 mg, By Mouth, Every 12 hours traMADol 50 mg oral tablet, 50 mg, By Mouth, Every 12 hours, PRN traZODone 50 mg oral tablet, 25 mg, By Mouth, Daily at bedtime Vancomycin IVPB, 1250 mg, 15 mg/kg, IVPB, Every 48 hours Zosyn Extended IVPB, 3.375 Gm, IVPB, Every 12 hours Home amLODIPine 5 mg oral tablet, 5 mg= 1 tablet, By Mouth, Daily atorvastatin 10 mg oral tablet, 10 mg= 1 tablet, By Mouth, Daily calcitriol 0.5 mcg oral capsule, 0.5 mcg= 1 capsule, By Mouth, Daily duloxetine 20 mg oral enteric coated capsule, 20 mg= 1 capsule, By Mouth, Daily gabapentin 100 [...] topical film, 1 patch, Topically, Daily, PRN loperamide 2 mg oral capsule, 2 mg= 1 capsule, By Mouth, PRN Metoprolol Succinate ER 25 mg oral tablet, extended release, 25 mg= 1 tablet, By Mouth, Daily oxyCODONE 5 mg oral tablet, 5 mg= 1 tablet, By Mouth, Every 8 hours predniSONE 10 mg oral tablet, 10 mg= [...] Use: Never (less than 100 in lifetime). Surgical pathology study * Event Display: Surgical Pathology Authored Date: Patient Name: TITO RICHARDSON Lab Patient : 1965 (Age: 57) Collection Date: 01/25/2023 Accession Date: 01/25/2023 Sign Out Date: 02/01/2023 Tissue Source: 1:RIGHT LEG BKA REVISION Final Diagnosis: Right leg, below knee amputation: - Extensive ischemic injury/active inflammation of skin and underlying soft tissue and skeletal muscle. - Bone with hemorrhagic marrow and remodelling. Primary Pathologist:Carl Smith MD electronically signed out by: Carl Smith MD / [place] Clinical History: Right leg ischemia Gross Description: A. Specimen Identification: 1. Received labeled as Right leg below the knee amputation revision . 2. Received fresh. 3. Laterality: Right. 4. Type: Below the knee amputation revision. B. Is There An Accompanying Disposal Authorization Form?: Yes. 1. Signed by: The patient on 01/25/2023. C. External Examination: 1. Extremity length, from prior amputation site to proximal margin: 19 cm. 2. Length of tibia exposed: 3.2 cm. Length of fibula exposed: 4.2 cm. 3. Presence of ulcers: No ulcers are identified grossly. 4. Presence of surgical incisions/scars: The distal aspect of the specimen displays a 6.2 x 4.7 cm partially healed valdez-red, dull prior below the knee amputation site. The bony surface at the prior ampuation site is smooth. 5. Presence of other skin lesions: None. 6. Color of skin: Val[place]. 7. Any absent digits?: The foot is previously removed, not present. D. Comment: None. E. Additional Tissue Processing: None. F. Summary Of Sections: 1- 2 pieces, skin and soft tissue at prior amputation site 2- multiple pieces, bone marrow at prior amputation site, following decalcification. (KM)* Phone #: [phone], On-Call Pathologist: [id number] * Event Display: Surgical Pathology Authored Date: Patient Name: TITO RICHARDSON Lab Patient : 1965 (Age: 57) Collection Date: 01/23/2023 Accession Date: 01/25/2023 Sign Out Date: 01/29/2023 Tissue Source: 1:RIGHT FOOT Final Diagnosis: Right foot, amputation: - Ulcer with fibroinflammatory changes involving subcutaneous tissue. - Underlying bone with reactive changes. Primary Pathologist:MARIANA CHOU M.D. electronically signed out by: MARIANA CHOU M.D. / [place] Clinical History: Diabetic foot infection. A disposal authorization form is received, signed by the patient. Gross Description: Labeled right foot on the requisition. Received fresh is a 26 cm (heel to distal hallux) amputated foot measuring 10.0 cm from the heel to proximal margin. The skin is hay-white and wrinkled with a 10.5 x 10.5 cm ulcer identified at the heel, displaying an embedded drain. The fifth digit has been previously amputated and displays a 1.3 x 0.2 cm partially healed incision site. The remaining 4 digits display minimally yellowed and slightly thickened nails. Drawing In Machine Tender Helper sections are submitted. 1-2 pieces, ulcer 2-1 piece, exposed calcaneus, following decalcification. (VN)* Phone #: [phone], On-Call Pathologist: [id number] History and physical note * Allen Vidal MD: PERFORM Event Display: History and Physical Hospital Authored Date: Patient: ??TITO RICHARDSON ? Age:??57 Years?Sex:??Male?:??1965?? History of Present Illness Patient is a 57-year-old gentleman that has past medical history significant for diabetes,??chronickidney disease status post kidney transplantation in 2013 currently on prednisone and tacrolimus,??neuropathy,??left upper extremity AV fistula,??R5 amputation??previous R5 amputation who presents today with??a diabetic foot wound??on the right heel. ?? Patient says that??he developed a wound over the last month??and presented to [facility] 2 weeks ago at which point they got an x-ray??and got labs that demonstrated no evidence of infection and so he was discharged home. ??He says that over the last 2 weeks he has progressively developed??worsening pain in his right heel, fevers, chills??and foul-smelling odor. ?? Patient presented to [facility] emergency department with??a elevated white cell count 22.3??with signs of chronic kidney disease BUN and creatinine of 36 and 3.3 but with otherwise normal electrolytes.?? He did have a??elevated glucose at 322. ?? Patient underwent a x-ray of the right leg that demonstrated??no definitive osteomyelitis and onclinical exam it does not appear to probe down to bone. ??He??does not have a history of peripheralvascular disease but on exam I cannot palpate his pulses but he does have??biphasic signals x5 and 1 monophasic signal. Review of Systems Negative except for those mentioned above Physical Exam Vitals & Measurements T:??99.1?F?? HR:??92??(Peripheral)?? RR:??20?? BP:??124/80?? SpO2:??95%?? HT:??160??cm?? WT:??77??kg?? BMI:??30.08?? General: No acute distress Head: Atraumatic, normocephalic ENT: Clear CV: Regular rate and rhythm Pulmonary: Even and unlabored breathing, no wheezing Abdomen: Soft, nondistended, nontender. ??No peritonitis, transplantation incision well-healed Extremities:??Left upper extremity fistula with??thrill Neuro: Appropriate, oriented, cooperative ?? Vascular: Right lower extremity:??Patient has palpable right femoral pulse, patient has biphasic signals??x2 in PT and AT with monophasic DP, patient has a large??3 x 3 cm??raised edge diabetic foot wound witha foul-smelling??base with necrotic tissue. ??It was down to the level of continuous tissue not bone, and has decreased motor function??at the level of his toes which he says is at baseline, glove and stocking??neuropathy distribution below the ankle. ?? Left lower extremity: Patient has??biphasic signals x3 in the lower extremity. ??Patient has palpable left femoral. ??Patient??has??no wounds on this foot. ??Patient is motor intact but has significant sensory defects in a glove and stocking distribution below the ankle Assessment/Plan Patient is a 57-year-old gentleman that has past medical history significant for diabetes,??chronickidney disease status post kidney transplantation in 2014 currently on prednisone and tacrolimus,??neuropathy,??left upper extremity AV fistula,??R5 amputation??previous R5 amputation who presents today with??a diabetic foot wound??on the right heel. ?? On clinical examination patient does appear to have an infected diabetic foot wound,??x-ray shows no evidence of osteo-, patient has biphasic but not palpable pulses suggestive of??possible progressive vascular disease on top of diabetic??microvascular disease. ?? Plan N.p.o.??at midnight Recommend IV antibiotics??receiving??Vanc/Zosyn currently Recommend medical admission for??comorbidities including??poorly controlled diabetes,??CKD with prior renal transplantation Commend renal consultation We will plan for operative debridement??tomorrow Patient is added on to tomorrow's or less ABIs ordered ?? Plan was discussed with Dr. Cloud [facility] [id number] ? Problem List/Past Medical History Ongoing Obese class I CKD Diabetes mellitus,?? neuropathy ?? Procedure/Surgical History Previous donor kidney transplant in 2014 previous??R5 amputation At upper extremity fistula ?? Home Medications Full medication list needs to be pulled over from patients other chart??but from??outside records appears he is on insulin, tacro, prednisone, aspirin??among other medications Allergies morphine Social History Alcohol Frequency: 1-2 times per year. Tobacco Use: Never (less than 100 in lifetime). Family History No family history recorded. Lab Results Labs Last 24 Hours BLOOD COUNT & DIFF ? Event Name?? Event Result?? Date/Time?? WBC 22.3 k/mm3??High 01/10/23 18:01:00 RBC 4.98 m/mm3 01/10/23 18:01:00 Hgb 13.3 Gm/dL??Low 01/10/23 18:01:00 Hct 41.8 % 01/10/23 18:01:00 MCV 83.9 femtoliters 01/10/23 18:01:00 MCH 26.7 pg??Low 01/10/23 18:01:00 MCHC 31.8 g/dL??Low 01/10/23 18:01:00 Platelet Count 364 k/mm3 01/10/23 18:01:00 MPV 10.6 femtoliters 01/10/23 18:01:00 Nucleated RBC (Automated) 0 #/100 WBC'S 01/10/23 18:01:00 ? CHEM GENERAL ? Event Name?? Event Result?? Date/Time?? Sodium 134 mmol/L 01/10/23 18:01:00 Chloride 107 mmol/L 01/10/23 18:01:00 Bicarbonate Level 10 mmol/L??Low 01/10/23 18:01:00 Anion Gap 17 01/10/23 18:01:00 Glucose Level 322 mg/dL??High 01/10/23 18:01:00 BUN 36 mg/dL??High 01/10/23 18:01:00 Creatinine-Blood 3.3 mg/dL??High 01/10/23 18:01:00 Alkaline Phosphatase 126 units/L 01/10/23 18:01:00 AST (SGOT) 11 units/L 01/10/23 18:01:00 ALT (SGPT) 8 units/L 01/10/23 18:01:00 Bilirubin, Total 0.4 mg/dL 01/10/23 18:01:00 ? * Gordo SEVERINO, Johana Avalos: PERFORM Event Display: History and Physical Hospital Authored Date: Patient seen and evaluated.?? Palpable pulses. Xray without evidence of osteomyelitis and wound does not probe to bone.?? OR for debridement?? the the necrotic tissue. Admission evaluation note * Dominick SEVERINO, Corina Cee: MODIFY Kaylan Spencer DO: MODIFY, MODIFY Kaylan Spencer DO: MODIFY, PERFORM Kaylan Spencer DO: PERFORM Event Display: Admission Note Authored Date: Patient: ??TITO RICHARDSON ? Age:??57 Years?Sex:??Male?:??1965?? Chief Complaint/Reason for Consultation Diabetic foot wound History of Present Illness Patient is a 57-year-old male with a history of diabetes, chronic kidney disease status post kidneytransplant 2013 (on prednisone and tacrolimus), neuropathy, left upper extremity AV fistula, who presented today with diabetic foot wound on the right heel. ?? Developed a wound over the last month presented to [facility] 2 weeks ago at which point he got an x-ray and labs demonstrated no evidence of infection he was discharged home.?? Over the last 2weeks he progressively worsening pain in his heels, fevers, chills, and foul-smelling order.? ED course: Temperature 99.1, pulse rate 92, respiratory rate 20, blood pressure 124/80, oxygenating well on room air.?? Labs are notable for leukocytosis of 22.3 with a neutrophil predominance.?? Glucose level of 322, beta hydroxybutyrate of 1.34.?? Creatinine of 3.3.?? Trace ketones on UA.??X-ray of the heel did not show any signs of osteomyelitis. He received Zosyn and vancomycin in the emergency room.?? Vascular surgery was consulted in the emergency room. Review of Systems A full review of systems was completed and is otherwise negative except as mentioned in history of present illness. Objective Vital Signs?? Temperature: 99.1 DegF (01/10/23 20:57:00) Temperature Route: Oral (01/10/23 20:57:00) Pulse Rate:??92 bpm??High (01/10/23 20:57:00) Respiratory Rate: 20 br/min (01/10/23 20:57:00) Systolic Blood Pressure: 124 mm Hg (01/10/23 20:57:00) Diastolic Blood Pressure: 80 mm Hg (01/10/23 20:57:00) Blood pressure sites: Arm, right (01/10/23 20:57:00) Mean Arterial Pressure: 95 mm Hg (01/10/23 20:57:00) Pulse Pressure: 44 mm Hg (01/10/23 20:57:00) Oxygen Saturation: 95 % (01/10/23 20:57:00) Mode of Delivery (Oxygen): Room air (01/10/23 20:57:00) Early Warning Score: 6 (01/10/23 22:47:54) ? Physical Exam General: Patient in no acute distress?? HEENT: normocephalic, atraumatic, PERRLA, EOMI Respiratory: bilateral equal air entry, clear to auscultation with no wheezes or crackles. Adequaterespiratory rate and effort on room air.?? CVS: regular rate and rhythm, S1 and S2 present, no murmurs, rubs or gallops. Abdomen: soft, non tender, non distended, bowel sounds present, no organomegaly.?? Extremities: no cyanosis, appropriately bandaged Neuro: alert and oriented x3. Cranial nerves II-XII grossly intact. Moving all extremities spontaneously. Normal tones, following simple commands.?? Derm: No signs of infection, surrounding skin is intact with no evidence of erythema, no purulent discharge, no tenderness?? Psych: Normal mood and affect?? Assessment/Plan Patient is a 57-year-old male with a history of diabetes, chronic kidney disease status post kidneytransplant 2013 (on prednisone and tacrolimus), neuropathy, left upper extremity AV fistula, who presented today with diabetic foot wound on the right heel. ?? Diabetic foot wound Sepsis Presented with infected diabetic foot wound with no signs of osteomyelitis. Seen by vascular surgery who wants to take him to the OR for debridement tomorrow. We will continue vancomycin and Zosyn. ???IV maintanance??fluids ??? N.p.o. for surgery tomorrow ??? IV Vanco and Zosyn ?? Acute kidney injury Anion gap metabolic acidosis Hx renal transplant Presented with a creatinine of 3.3, creatinine in October was 2.8. Likely prerenal in the setting of poor p.o. intake and sepsis. Anion gap likely explained by combination of starvation ketosis and uremia. We will fluid resuscitate and trend renal function. ??? continue home bicarb, calcitriol, prednisone, tacrolimus ??? Fluid resuscitation ??? Renal consult ?? DM2 insulin dependent Pt take 48 units of glargine at home with lispro 6 units before meals. With NPO for surgery, will half dose. - 24 glargine -SSI ?? Chronic Stable Conditions: HTN: continue home amlodipine, metoprolol Chronic pain: continue tramadol, lidocaine patches Insomnia: continue gabapentin, trazodone ?? Quality Measures Code: full Diet: NPO DVT: pneumoboots ?? Patient discussed with attending physician, Dr. Dominick Spencer, DO Internal Medicine PGY2 ? Attending Attestation: I have seen and evaluated this patient???01/11/2023 in ED C pod alba bobby presented for evaluation with concerns of right??heel wound worsening over the past??1 month with increasing pain and foul-smelling odor??as well as??reports of fever and chills??and was found to have tachycardia, stable blood pressure but leukocytosis to 22.3??with??elevated ESR and CRP concerning for evolving??sepsis??from??deep tissue infection??but no x- ray evidence of??osteomyelitis-???seen by vascular surgery with plans for??operative debridement and medical admission for ongoing??antibiotic therapy. 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 ?? [] ? Histories Allergies Allergies ?(Active and Proposed Allergies Only) morphine? (Severity: Unknown severity, Onset: Unknown) ? Past Medical History/Problem List Active Problems??Past Surgical History Obese class I ?? diabetes, chronic kidney disease status post kidney transplant 2013 (on prednisone and tacrolimus),neuropathy, left upper extremity AV fistula, R5 toe- amputation ? Social History Alcohol Details:??Frequency: 1-2 times per year. Tobacco Details:??Use: Never (less than 100 in lifetime). ? Family History No family history recorded. ? Medications Home Medications Amlodipine (amLODIPine 5 mg oral tablet)?1?tab(s)?5?Milligram?By Mouth?Daily?TAKE ONE TABLET EVERY MORNING Atorvastatin (atorvastatin 10 mg oral tablet)?1?tab(s)?10?Milligram?By Mouth?Daily?TAKE ONE TABLET EVERY MORNING Calcitriol (calcitriol 0.5 mcg oral capsule)?1?capsule?0.5?Microgram?By Mouth?Daily?TAKE ONE CAPSULE EVERY MORNING Duloxetine (duloxetine 20 mg oral enteric coated capsule)?1?capsule?20?Milligram?By Mouth?Daily?TAKE ONE CAPSULE EVERY MORNING Gabapentin (gabapentin [...] hours Loperamide (loperamide 2 mg oral capsule)?2?Milligram?1?capsule?By Mouth?as needed?TAKE ONE CAPSULE AFTER FIRST LOOSE STOOL AND ONE AFTER each NEXT BOWEL MOVEMENT, DO NOT EXCEED EIGHT CAPSULES IN 24 HOURS?as needed for loose stool Metoprolol (Metoprolol Succinate ER 25 mg oral tablet, extended release)?1?tab(s)?25?Milligram?By Mouth?Daily?TAKE ONE TABLET EVERY MORNING Oxycodone (oxyCODONE 5 mg oral tablet)?5?Milligram?1?tablet?By Mouth?Every 8 hours?TAKE ONE TABLET EVERY 8 HOURS NEEDED FOR PAIN PredniSONE (predniSONE 10 mg oral tablet)?1?tab(s)?10?Milligram?By Mouth?Daily?TAKE [...] Recent Labs BLOOD COUNT & DIFF WBC 22.3 k/mm3 (High)?? 01/10/2023 18:01 RBC 4.98 m/mm3 ()?? 01/10/2023 18:01 Hgb 13.3 Gm/dL (Low)?? 01/10/2023 18:01 Hct 41.8 % ()?? 01/10/2023 18:01 MCV 83.9 femtoliters ()?? 01/10/2023 18:01 MCH 26.7 pg (Low)?? 01/10/2023 18:01 MCHC 31.8 g/dL (Low)?? 01/10/2023 18:01 Platelet Count 364 k/mm3 ()?? 01/10/2023 18:01 RDW-SD 45.7 femtoliters ()?? 01/10/2023 18:01 MPV 10.6 femtoliters ()?? 01/10/2023 18:01 Nucleated RBC (Automated) 0.0 #/100 WBC'S ()?? 01/10/2023 18:01 Abs. NRBC 0.0 k/mm3 ()?? 01/10/2023 18:01 Abs. Neut 20.3 k/mm3 (High)?? 01/10/2023 18:01 Abs. Lymph 0.6 k/mm3 (Low)?? 01/10/2023 18:01 Abs. Cherry 1.2 k/mm3 ()?? 01/10/2023 18:01 Abs. Eo 0.0 k/mm3 ()?? 01/10/2023 18:01 Abs. Baso 0.0 k/mm3 ()?? 01/10/2023 18:01 Neut % 91.0 % (High)?? 01/10/2023 18:01 Lymph % 2.6 % (Low)?? 01/10/2023 18:01 Cherry % 5.5 % ()?? 01/10/2023 18:01 Eos % 0.0 % ()?? 01/10/2023 18:01 Baso % 0.2 % ()?? 01/10/2023 18:01 RBC Morphology MODERATE ()?? 01/10/2023 18:01 Platelet Estimate ADEQUATE ()?? 01/10/2023 18:01 Imm Gran 0.7 % ()?? 01/10/2023 18:01 Abs. Imm Gran 0.2 k/mm3 ()?? 01/10/2023 18:01 ?? CHEM GENERAL Sodium 134 mmol/L ()?? 01/10/2023 18:01 Potassium 4.4 mmol/L ()?? 01/10/2023 18:01 Chloride 107 mmol/L ()?? 01/10/2023 18:01 Bicarbonate Level 10 mmol/L (Low)?? 01/10/2023 18:01 Anion Gap 17 ()?? 01/10/2023 18:01 Glucose Level 322 mg/dL (High)?? 01/10/2023 18:01 Beta Hydroxybutyrate 1.34 mmol/L (High)?? 01/10/2023 18:01 BUN 36 mg/dL (High)?? 01/10/2023 18:01 Creatinine-Blood 3.3 mg/dL (High)?? 01/10/2023 18:01 Estimated GFR Creatinine 21 ML/MIN/1.73 M2 ()?? 01/10/2023 18:01 Calcium 9.0 mg/dL ()?? 01/10/2023 18:01 Protein, Total 6.2 Gm/dL ()?? 01/10/2023 18:01 Albumin 3.2 Gm/dL (Low)?? 01/10/2023 18:01 AG Ratio 1.1 ()?? 01/10/2023 18:01 Alkaline Phosphatase 126 units/L ()?? 01/10/2023 18:01 AST (SGOT) 11 units/L ()?? 01/10/2023 18:01 ALT (SGPT) 8 units/L ()?? 01/10/2023 18:01 Bilirubin, Total 0.4 mg/dL ()?? 01/10/2023 18:01 Lactate 1.1 mmol/L ()?? 01/10/2023 22:08 ?? HEME OTHER Sed Rate 105 mm/hr (High)?? 01/10/2023 18:01 Hold Blue Top SPECIMEN DISCARDED AFTER 4 HOURS. ()?? 01/10/2023 18:01 ?? UA/URINALYSIS Appear/Color, Urine LIGHT YELLOW ()?? 01/10/2023 17:36 Specific [place], Urine 1.013 ()?? 01/10/2023 17:36 pH, Urine 5.5 ()?? 01/10/2023 17:36 Albumin, Urine 1+ (Abnormal)?? 01/10/2023 17:36 Glucose, Urine 4+ (Abnormal)?? 01/10/2023 17:36 Ketones, Urine TRACE (Abnormal)?? 01/10/2023 17:36 Bilirubin, Urine NEGATIVE ()?? 01/10/2023 17:36 Hemoglobin, Urine NEGATIVE ()?? 01/10/2023 17:36 Nitrite, Urine NEGATIVE ()?? 01/10/2023 17:36 Leukocyte, Urine NEGATIVE ()?? 01/10/2023 17:36 Urobilinogen NORMAL mg/dL ()?? 01/10/2023 17:36 WBC's, Urine <1 /HPF ()?? 01/10/2023 17:36 RBC's, Urine NONE SEEN /HPF ()?? 01/10/2023 17:36 Squamous Epith 2 /HPF ()?? 01/10/2023 17:36 Granular Cast 4 /LPF ()?? 01/10/2023 17:36 Mucus SLIGHT /LPF ()?? 01/10/2023 17:36 Hold Urine Culture Testing available 48 hours from time of collection. ()?? 01/10/2023 17:36 ?? URINE OTHER Est Creatinine Clearance 19.87 mL/min ()?? 01/10/2023 18:55 ?? VIROLOGY COVID-19 by RT-PCR NEGATIVE ()?? 01/10/2023 21:59 ? * Katarzyna Watkins MD: PERFORM Event Display: Admission Note Authored Date: [id number] Patient was seen and examined in a.m. in the ER??hallway??with the help of steam engineer at bedside Denied any complaint except mild??abdominal pain and diarrhea.?? Currently n.p.o. for??procedure today??by vascular??as add on Patient's??blood sugar more than 500??and??bicarb 9, anion gap 19.?? Bids consulted??and recommended to start on insulin drip??and follow DKA protocol.?? All orders placed.?? Upgraded to [facility] for??insulin drip Renal team recommended??to bicarb drip??which was started. ? Later patient moved to [facility]. ??From chart review insulin drip was never started.?? I spoke to??RN??multiple times??for starting insulin drip.?? Later she informed that??patient's right??arminfiltrated??with bicarb.?? Hyaluronate is ordered.?? Arm elevation and ice RN said that unable to get??any new IV Discussed with renal patient's left arm??can be??used for??blood draw exam the patient has AV fistula.?? Also??patient's??IV bicarb drip can be discontinued since bicarb improved to 16.?? We will continue??bicarb pills Discussed with bids,??discontinued??insulin drip??and??ordered??subcutaneous insulin instead. Need to check??another??lytes??in the nighttime.?? If??still anion gap,??insulin drip need to be restarted If anion gap closed,??will do only??routine electrolytes tomorrow a.m.,??no need every 4 hours EKG study * Event Display: ECG 12-Lead Authored Date: Please click on pdf link to open report * Event Display: ECG 12-Lead Authored Date: Ventricular Rate: 87 BPM Atrial Rate: 87 BPM P-R Interval: 138 ms QRS Duration: 100 ms Q-T Interval: 376 ms QTC Calculation(Bazett): 452 ms P [place]: 22 degrees R [place]: -11 degrees T [place]: 69 degrees Sinus rhythm with Premature atrial complexes Nonspecific T wave abnormality Abnormal ECG When compared with ECG of 26-JAN-2023 11:41, Premature atrial complexes are now Present Confirmed by FABIEN KWON MD ([id number]) on 01/28/2023 11:21:52 AM [place]: FABIEN KWON MD * Event Display: ECG 12-Lead Authored Date: Please click on pdf link to open report * Event Display: ECG 12-Lead Authored Date: Ventricular Rate: 88 BPM Atrial Rate: 88 BPM P-R Interval: 134 ms QRS Duration: 98 ms Q-T Interval: 388 ms QTC Calculation(Bazett): 469 ms P [place]: 12 degrees R [place]: -18 degrees T [place]: 121 degrees Normal sinus rhythm T wave abnormality, consider lateral ischemia Abnormal ECG When compared with ECG of 10-JAN-2023 17:41, No significant change was found Confirmed by FABIEN KWON MD ([id number]) on 01/26/2023 12:43:05 PM [place]: FABIEN KWON MD * Event Display: ECG 12-Lead Authored Date: Please click on pdf link to open report * Event Display: ECG 12-Lead Authored Date: Ventricular Rate: 102 BPM Atrial Rate: 102 BPM P-R Interval: 116 ms QRS Duration: 88 ms Q-T Interval: 360 ms QTC Calculation(Bazett): 469 ms P [place]: 23 degrees R [place]: -17 degrees T [place]: 68 degrees Baseline artifact Sinus tachycardia Nonspecific ST and T wave abnormality Abnormal ECG When compared with ECG of 26-OCT-2022 20:37, Premature supraventricular complexes are no longer Present Heart rate has increased by 26 BPM Confirmed by TREY PRESLEY MD ([id number]) on 01/12/2023 1:19:59 PM [place]: TREY PRESLEY MD Cardiology * Event Display: Cardiac Rhythm Strips Authored Date: * Event Display: Cardiac Rhythm Strips Authored Date: * Event Display: Cardiac Rhythm Strips Authored Date: * Event Display: VL Ankle/Brachial Indices Authored Date: Demographics Procedure Information Patient name: DYLAN ROHADES Procedure date: 01/11/2023 11:03 AM Corporate Proc. sub type: Extremities Arteries: Lower Arterial Plethysmography, PVR Limited Single Gender: Male Level. Date of : 1965 Accession No: [id number] Age: 57 year(s) Account No: [id number] Patient status: RASHAWN Procedure Staff Admit Status: Inpatient Ordering physician: Gianfranco Brandt MD Technical quality: Good visualization Referring Physician: Gianfranco Brandt MD Facility: [facility] Attending Physician: Corina Tan MD Study location: [facility] Vascular Lab Admitting Physician: Corina Tan MD Procedure consent obtained: Security Intelligence Analyst: Ed Novak Interpreting physician: Abdiel Roca MD Indications Ulcer/gangrene. Lower Extremity Findings Right Left Location Pressure (mmHg) Ratio Pressure (mmHg) Ratio Brachial 132 130 VOICER 180 1.36 238 1.8 DPA 176 1.33 240 1.82 Great Toe 90 0.68 73 0.55 Right HENNY: 1.36 Left HENNY: 1.82 Right TBI: Left TBI: 0.68 0.55 Physician Conclusions Summary: The Ankle / Brachial Index on the right is 1.8 . Toe/ Brachial Index on the right is abnormal . The Ankle / Brachial Index on the left is 1.8 . The Toe/ Brachial Index on the left is abnormal . Possible small vessel disease in the foot on both sides. * Event Display: VL Ankle/Brachial Indices Authored Date: Hospital Progress note * Odin SEVERINO, Mykel P: SIGN, MODIFY Oswald LAMB, Maribel: MODIFY, SIGN Oswald LAMB, Maribel: SIGN, PERFORM Maribel Marks: PERFORM, SIGN Oswald PA, Maribel: SIGN, VERIFY Maribel Marks: VERIFY Event Display: Progress Note Hospital Authored Date: Patient: TITO RICHARDSON Age: 57 years Sex: Male : 1965 Associated Diagnoses: None Author: Maribel Marks [facility]patient [facility]phrology Progress Note Interval History Bañuelos cath removed by IR 3.9 L UOP in 24 hours, net negative 3.5 L overall Cr 2.6 yesterday Tacro level 7.6 today No acute complaints Review of Systems Review of Systems Respiratory: no shortness of breath. Cardiovascular: no chest pain. Gastrointestinal: no abdominal pain, no nausea, no vomiting. Physical Examination Vital Signs Vitals : VITALS 02/01/2023 7:14 EDT Early Warning Score 7.00 02/01/2023 7:14 EDT Temperature 98.1 DegF Temperature Route Oral Pulse Rate 75 bpm Respiratory Rate 16 br/min Systolic Blood Pressure 90 mm Hg Diastolic Blood Pressure 71 mm Hg Mean Arterial Pressure 77 mm Hg Pulse Pressure 19 mm Hg Oxygen Saturation 95 % Mode of Delivery (Oxygen) Room air . General Appearance NAD. HEENT Moist mucous membranes. Respiratory Lungs: CTA. Cardiac Rhythms: RRR. Abdomen/GI Abdomen: soft, non-tender. Extremities No edema. Neurologic Alert & oriented x 3 . Results Review 7 Day Results Results Laboratory : LABORATORY 02/01/2023 5:16 EDT Tacrolimus Level 7.6 ng/mL 01/31/2023 20:44 EDT Glucose, POC 91 mg/dL 01/31/2023 16:23 EDT Glucose, POC 256 mg/dL H 01/31/2023 11:18 EDT Glucose, POC 175 mg/dL H 01/31/2023 9:01 EDT Sodium 132 mmol/L L Potassium 4.6 mmol/L Chloride 98 mmol/L Bicarbonate Level 27 mmol/L Anion Gap 7 Glucose Level 152 mg/dL H BUN 14 mg/dL Creatinine-Blood 2.6 mg/dL H Estimated GFR Creatinine 27 ML/MIN/1.73 M2 Calcium 7.9 mg/dL L Tacrolimus Level 10.5 ng/mL Impression and Plan Mr. Tito Richardson is a 57-year-old male with a past medical history of ESRD s/p DDKT (2013) on tacrolimus monotherapy, type II diabetes poorly controlled, s/p parathyroidectomy on calcitriol, neuropathy, who presented to [facility] on 01/10 with a RLE diabetic foot wound. Vascular surgery recommending OR which occurred on 01/12. Course complicated by mild DKA, now resolved. Now with diarrhea. Plan for OR w/ Vascular Surgery for a right heel wound debridement. 1. 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 Cr down to 3.1mg/dL today after resuming IVF. Patient also noted to have urinary retention with bladder scan > 900mL, Hopson placed 01/29. Plan: - Monitor I/O's - Continue Tacrolimus 2mg BID - Check tacro level daily at 7am (goal is 6-9) - Avoid nephrotoxins - Daily renal panel 2. AGMA --> NAGMA, resolved P/w bicarb 9 due to DKA (initially high anion gap) Then non-gap due to diarrhea, improved with increasing dose of home bicarb tablets Plan: - Continue home dose sodium bicarb 650mg BID 3. S/p parathyroidectomy - Continue calcitriol 0.5 mcg daily Thank you for the courtesy of this consult, RTANE will continue monitoring the patient along with you please do not hesitate to call us with any further questions Maribel Akers PA-C [facility] [address] , [address] [facility] * Mykel Newby MD P: PERFORM Event Display: Progress Note Hospital Authored Date: [id number] Seen and examined on 02/01/2023. Agree with assessment and plan as outlined. Mykel Newby MD * Tomer Hartley DO: PERFORM, SIGN, VERIFY Event Display: Progress Note Hospital Authored Date: Patient: TITO RICHARDSON Age: 57 years Sex: Male : 1965 Associated Diagnoses: None Author: Tomer Hartley DO This note will summarize the patient's hospital course from admission through 31 January 2023. Here is the updated problem list: 1. Right calcaneal and foot osteomyelitis, status post BKA 2. BKA for the above 3. Chronic kidney disease superimposed on history of renal transplant with immunosuppression 4. Hypertension 5. Chronic kidney disease stage III-IV 6. Diabetic peripheral neuropathy 7. Diarrhea resolved This is a 57-year-old male with previous history of a renal allograft transplant, he is maintained on tacrolimus, is followed by the renal transplant team here in the hospital and also outside the hospital. He presented to hospital with a right foot osteomyelitis. He was seen by infectious disease medicine and vascular surgery. Initially he was started on antibiotics and there is a plan to do long-term antibiotic therapy, however this plan changed and the patient elected to perform a right BKA. He had the surgery without complication, now that adequate source control was placed, the Bañuelos that was placed previously in the admission is not needed. Waitingfor radiology to remove the Bañuelos catheter. This is the only discharge barrier, the patient has been maintained off IV antibiotics and has no signs of recurrent osteomyelitis or sepsis. We will follow-up with vascular surgery and the patient will have his usual postoperative care for the BKA. Regarding his chronic kidney disease: He had urinary retention, he was given IV fluids and followedby nephrology, currently his creatinine is at his baseline. He is maintained on tacrolimus Regarding the peripheral neuropathy the patient maintained on duloxetine and gabapentin, he was having myoclonic jerking which resolved after cessation of duloxetine. Fluoxetine would be contraindicated given his current GFR Regarding his diabetes we have been giving the patient insulin with good blood sugar control. Regarding his hypertension his chronic medicines been continued without adjustments. Disposition: Discharge barriers include the removal of the Bañuelos catheter and then placement in areb facility. We have updated his family at the bedside daily. * Chung Fernandez RN: SIGN, MODIFY, SIGN, MODIFY, SIGN, MODIFY, VERIFY, SIGN, MODIFY, PERFORM, SIGN Event Display: Progress Note Hospital Authored Date: Patient: TITO RICHARDSON Age: 57 years Sex: Male : 1965 Associated Diagnoses: None Author: Chung Fernandez RN Findings SBAR received, patient eyes closed, appears to be resting, hopson patency assessed * Chung Fernandez RN: PERFORM Event Display: Progress Note Hospital Authored Date: Assessment completed as charted, utilized dairy and food laboratory assistant, questions answered to patient satisfaction. Medicated per MAR. Plan of care and pain management discussed. Immediately upon disconnecting with dairy and food laboratory assistant patient began to speak in British, seemingly asking questions. I re-utilized the dairy and food laboratory assistant, patient asked about his medications again, questions answered to his satisfaction. Patient gestured toward his waist. I asked him to utilize the dairy and food laboratory assistant to ask questions as I don't understandany British. He spoke quietly to quietly for dairy and food laboratory assistant to hear. After repeating my statement he waved his finger and refused to answer. * Chung Fernandez RN: PERFORM Event Display: Progress Note Hospital Authored Date: utilized dairy and food laboratory assistant to notify the patient of discharge and coordinate discharge * Chung Fernandez RN: PERFORM Event Display: Progress Note Hospital Authored Date: patient eating, will discontinue urinary hopson when he is done. * Chung Fernandez RN: PERFORM Event Display: Progress Note Hospital Authored Date: [id number] SBAR given to Shira Gurinder Note * Ledy Franco RN: PERFORM Event Display: Discharge/Transfer Note Hospital Authored Date: [id number] Nursing Discharge Note Entered On: 02/01/2023 15:19 EDT Performed On: 02/01/2023 15:19 EDT by Ledy Franco RN Nursing Discharge Note 2 Discharge Time : 02/01/2023 16:24 EDT Ledy Franco RN - 02/01/2023 17:46 EDT Discharge Level of Care at Discharge : Homehealth/VNA Discharge VNA/Hospice/Home Care(v001) : [facility] [phone] Patient Left Unit Via : Wheelchair Patient Accompanied Off Unit with : Responsible adult, Other: staff DC Instructions Provided & Signed by Pt : Yes Patient Understands D/C Instructions : Yes Patient Instructions Discharge Signed : Yes Did Pt have Specialty Bed or Wound Vac : No Ledy Franco RN - 02/01/2023 15:19 EDT * Alissa SEVERINO, Jhony Rodrigues: PERFORM Event Display: Discharge/Transfer Note Hospital Authored Date: [id number] Patient: ??TITO RICHARDSON ? Age:??57 Years?Sex:??Male?:??1965?? Patient Information Discharge Location: S1 Primary Care Physician: Zoraida Luo MD Admit Date/Time: 01/10/23 22:38 Discharge Disposition Discharge Disposition: ?? Discharge Diagnosis ?? 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 _ Discharge Medications Amlodipine (amLODIPine 5 [...] at bedtime?TAKE 1/2 TABLET AT BEDTIME ? Allergies Allergies ?(Active and Proposed Allergies Only) morphine? (Severity: Unknown severity, Onset: Unknown) ? Future Appointments 2022 10:00 AM EDT ?? With: Ute Badillo NP Where: [facility] Infectious Disease [address] [place] [id number]- Status: Pending Wednesday 3:30 PM EDT ?? With: Justina Newberry NP Where: [facility] [address] [id number]- Status: Pending 2022 2:30 PM EDT ?? With: Chris Castle Where: [facility] Gastroenterology [address] [place] [id number]- Status: Pending Hospital Course ?? 57 y/o male with h/o??ESRD, s/p??allograft transplant, he is maintained on tacrolimus, is followed by the renal transplant team here in the hospital with a right foot osteomyelitis. ? Right foot osteomyelitis. ?? S/P right BKA ?? He was seen by infectious disease medicine and vascular surgery. Initially he was started on antibiotics and there is a plan to do long-term antibiotic therapy, however this plan changed and the patient elected to perform a right BKA. He had the surgery without complication, now that adequate source control was placed and no further antibiotic needed. Bañuelos was removed ?? PT recommended rehab., but he declined He is being discharged home with VNA and family support ? Plan: ??- Wound care: betadine paint to R BKA BID; cover with DSD, ariadne bandage and stump sock ??- [place] to be worn at all times (once arrives) ??- F/U outpatient with vascular surgery in 2-3 weeks ? 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 Will continue??Tacrolimus 2mg BID ??Avoid nephrotoxins f/up with Nephrology ? AGMA --> NAGMA, resolved P/w bicarb 9 due to DKA (initially high anion gap) Then non-gap due to diarrhea, improved with increasing dose of home bicarb tablets ?? Plan: - Continue home dose sodium bicarb 650mg BID ?S/p parathyroidectomy - Continue calcitriol 0.5 mcg daily ? Depression with anxiety (F41.8): Will continue gabapentin ?? duloxetine discontinued, the myoclonic jerks have resolved. ? Diabetic infection of right foot (E11.628): Blood sugars controlled ? Will continue home meds ? Hypertension (I10): Continue home meds ? Hypomagnesemia (E83.42): Resolved ? Code Status: Full ? Objective Assessment and Plan Discharge Planning:? Vital Signs?? Temperature: 98.1 DegF (02/01/23 07:14:00) Temperature Route: Oral (02/01/23 07:14:00) Pulse Rate: 89 bpm (02/01/23 10:53:00) Respiratory Rate: 16 br/min (02/01/23 12:06:00) Systolic Blood Pressure: 135 mm Hg (02/01/23 10:53:00) Systolic Blood Pressure: 135 mm Hg (02/01/23 10:53:00) Diastolic Blood Pressure:??89 mm Hg??High (02/01/23 10:53:00) Diastolic Blood Pressure:??89 mm Hg??High (02/01/23 10:53:00) Blood pressure sites: Arm, right (02/01/23 04:00:00) Mean Arterial Pressure: 77 mm Hg (02/01/23 07:14:00) Pulse Pressure: 19 mm Hg (02/01/23 07:14:00) Oxygen Saturation: 95 % (02/01/23 07:14:00) Mode of Delivery (Oxygen): Room air (02/01/23 07:14:00) Early Warning Score: 3 (02/01/23 12:06:52) ? . Physical Exam Awake, alert, oriented Lungs: Clear to auscultation bilateral, no wheezing no rales Heart: Regular rate and rhythm, no murmur, no rub or gallop Abdomen: Soft, nontender, nondistended; Bowel sounds present Extremity: No edema cyanosis clubbing; s/p right BKA Neurological: No focal deficit Psychiatric: Normal mood and affect Surgical Procedures Debridement Procedure 01/12/2023 11:40 Debridement Procedure 01/17/2023 08:29 Debridement Procedure 01/21/2023 17:17 Amputation Below Knee 01/23/2023 08:26 Revision Below Knee Amputation 01/25/2023 13:58 Pending Results Add On Lab Order ordered on 01/10/2023 Add On Lab Order ordered on 01/10/2023 Add On Lab Order ordered on 01/11/2023 Add On Lab Order ordered on 01/12/2023 Add On Lab Order ordered on 01/21/2023 Add On Lab Order ordered on 01/30/2023 Basic Metabolic Panel ordered on 01/30/2023 Blood Culture ordered on 01/29/2023 Blood Culture #2 ordered on 01/29/2023 Fungal Culture, Nonrespiratory ordered on 01/12/2023 RBCs for Surgery ordered on 01/25/2023 Tacrolimus Level ordered on 01/31/2023 Transfuse RBCs ordered on 01/29/2023 Transfuse RBCs ordered on 01/29/2023 Type and Screen ordered on 01/29/2023 Follow-Up Appointments Added Follow Up ?Time Frame ?Comments Cici SEVERINO, Jaspal Walsh?1 to 2 weeks Zoraida Luo MD?1 week Home Health Face to Face *Denotes mandatory oleary ?? *I certify that this patient is under my care and that I or an allowed non- physician working with me had a face to face encounter with the patient on this date:??02/01/2023 13:41 ?? 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 *Select the indications for the discipline/s that are being arranged for this patient. Nursing (select all that apply): [_] None [_x] Medication management (reconciliation, teaching)?? [_x] Chronic disease management?? xWound care and treatment?? [_] Home safety evaluation [_] Administer SQ/IM/IV medications?? [_] Cath care?? [_] Drain care?? [_] Trach or GT care?? Other _ Occupation Therapy (select all that apply): [_] None [_] ADL Management [_] Fall prevention training [_] Energy conservation [_] Cognitive training Other _ Physical Therapy (select all that apply): [_] None [_x] Functional mobility training [x_] Home exercise program to strengthen [_x] Increase ROM?? [_x] Falls prevention training [_x] Home maintenance program for chronic disease Other _ Speech Therapy (select all that apply): [_] None [_] Swallow evaluation and training [_] Speech and language training [_] Cognitive training to process, organize, and/or recall information Other _ ? *Homebound due to (select all that apply): [x_] Inability to leave home without assistance/supervision [_] Inability to ambulate without assistance [_] Pain [x_] Decreased strength and endurance [_] Unsteady gait [_] Severe SOB and fatigue [_] Impaired transfers [_] Inability to negotiate stairs [_] Limited weight bearing [_] Mental status change? *Physician Signature:??Jhony Maxwell MD ?? *By signing this, I certify that I have personally evaluated the patient and agree with the findings and recommendations as documented above. ? HomeHealthFTF Results Discharge Labs BLOOD BANK Blood Type A Positive ()?? 01/29/2023 14:33 Antibody Screen Negative ()?? 01/29/2023 14:33 RBC Unit ID [id number] ()?? 01/29/2023 20:28 RBC Available PT ()?? 01/29/2023 20:28 ?? BLOOD COUNT & DIFF WBC 16.3 k/mm3 (High)?? 01/30/2023 10:30 RBC 3.03 m/mm3 (Low)?? 01/30/2023 10:30 Hgb 8.6 Gm/dL (Low)?? 01/30/2023 10:30 Hct 26.5 % (Low)?? 01/30/2023 10:30 MCV 87.5 femtoliters ()?? 01/30/2023 10:30 MCH 28.4 pg ()?? 01/30/2023 10:30 MCHC 32.5 g/dL (Low)?? 01/30/2023 10:30 Platelet Count 570 k/mm3 (High)?? 01/30/2023 10:30 RDW-SD 49.1 femtoliters (High)?? 01/30/2023 10:30 MPV 9.8 femtoliters ()?? 01/30/2023 10:30 Nucleated RBC (Automated) 0.1 #/100 WBC'S ()?? 01/30/2023 10:30 Abs. NRBC 0.0 k/mm3 ()?? 01/30/2023 10:30 Abs. Neut 16.4 k/mm3 (High)?? 01/29/2023 01:22 Abs. Lymph 2.4 k/mm3 ()?? 01/29/2023 01:22 Abs. Cherry 2.2 k/mm3 (High)?? 01/29/2023 01:22 Abs. Eo 0.2 k/mm3 ()?? 01/29/2023 01:22 Abs. Baso 0.1 k/mm3 ()?? 01/29/2023 01:22 Neut % 75.6 % ()?? 01/29/2023 01:22 Lymph % 11.2 % (Low)?? 01/29/2023 01:22 Cherry % 10.1 % ()?? 01/29/2023 01:22 Eos % 0.8 % ()?? 01/29/2023 01:22 Baso % 0.4 % ()?? 01/29/2023 01:22 RBC Morphology MODERATE ()?? 01/10/2023 18:01 Platelet Estimate ADEQUATE ()?? 01/10/2023 18:01 Platelet Comment MODERATE ()?? 01/14/2023 05:17 Imm Gran 1.9 % ()?? 01/29/2023 01:22 Abs. Imm Gran 0.4 k/mm3 ()?? 01/29/2023 01:22 ? CARDIAC High Sensitivity Troponin (HSTnT) 54 ng/L (Critical)?? 01/28/2023 11:04 ? CHEM GENERAL Sodium 132 mmol/L (Low)?? 01/31/2023 09:01 Potassium 4.6 mmol/L ()?? 01/31/2023 09:01 Chloride 98 mmol/L ()?? 01/31/2023 09:01 Bicarbonate Level 27 mmol/L ()?? 01/31/2023 09:01 Anion Gap 7 ()?? 01/31/2023 09:01 Glucose Level 152 mg/dL (High)?? 01/31/2023 09:01 Glucose, POC 138 mg/dL (High)?? 02/01/2023 11:02 Hemoglobin A1C (Monitoring) 11.5 % (High)?? 01/11/2023 06:49 Beta Hydroxybutyrate 1.34 mmol/L (High)?? 01/10/2023 18:01 BUN 14 mg/dL ()?? 01/31/2023 09:01 Creatinine-Blood 2.6 mg/dL (High)?? 01/31/2023 09:01 Estimated GFR Creatinine 27 ML/MIN/1.73 M2 ()?? 01/31/2023 09:01 Calcium 7.9 mg/dL (Low)?? 01/31/2023 09:01 Phosphorus 2.9 mg/dL ()?? 01/28/2023 05:57 Magnesium 1.8 mg/dL ()?? 01/29/2023 20:30 Protein, Total 5.4 Gm/dL (Low)?? 01/23/2023 05:32 Albumin 2.3 Gm/dL (Low)?? 01/23/2023 05:32 AG Ratio 0.7 ()?? 01/23/2023 05:32 Alkaline Phosphatase 321 units/L (High)?? 01/23/2023 05:32 AST (SGOT) 18 units/L ()?? 01/23/2023 05:32 ALT (SGPT) 17 units/L ()?? 01/23/2023 05:32 Bilirubin, Total 0.4 mg/dL ()?? 01/23/2023 05:32 Lactate 1.1 mmol/L ()?? 01/10/2023 22:08 C-Reactive Protein 2.9 mg/dL (High)?? 01/25/2023 05:22 ?? HEME OTHER Sed Rate 86 mm/hr (High)?? 01/25/2023 05:22 Hold Lavender Top SPECIMEN DISCARDED AFTER 24 HOURS. ()?? 01/15/2023 04:56 Hold Blue Top SPECIMEN DISCARDED AFTER 4 HOURS. ()?? 01/10/2023 18:01 ? MISC. CHEMISTRY Hold Gel Top SPECIMEN DISCARDED AFTER 1 WEEK ()?? 01/28/2023 11:04 ? SEROLOGY INF DISEASE C.difficile Toxin Negative. C.Difficile bacterial antigen and toxin not detected. A (N)?? 01/29/2023 15:45 ? STOOL STUDIES GI PCR, Campylobacter NEGATIVE ()?? 01/14/2023 10:45 GI PCR, Plesiomonas shigelloides NEGATIVE ()?? 01/14/2023 10:45 GI PCR, Salmonella NEGATIVE ()?? 01/14/2023 10:45 GI PCR, Vibrio NEGATIVE ()?? 01/14/2023 10:45 GI PCR, Vibrio cholerae NEGATIVE ()?? 01/14/2023 10:45 GI PCR, Yersinia enterocolitica NEGATIVE ()?? 01/14/2023 10:45 GI PCR, Enteroaggregative E coli NEGATIVE ()?? 01/14/2023 10:45 GI PCR, Enteropathogenic E coli NEGATIVE ()?? 01/14/2023 10:45 GI PCR, Enterotoxigenic E coli NEGATIVE ()?? 01/14/2023 10:45 GI PCR, Eanhk-sxlme-yopoteaht E coli NEGATIVE ()?? 01/14/2023 10:45 GI PCR, Shigella/Enteroinvasive E coli NEGATIVE ()?? 01/14/2023 10:45 GI PCR, Cryptosporidium NEGATIVE ()?? 01/14/2023 10:45 GI PCR, Cyclospora cayetanensis NEGATIVE ()?? 01/14/2023 10:45 GI PCR, Entamoeba histolytica NEGATIVE ()?? 01/14/2023 10:45 GI PCR, Giardia lamblia NEGATIVE ()?? 01/14/2023 10:45 GI PCR, Adenovirus F 40/41 NEGATIVE ()?? 01/14/2023 10:45 GI PCR, Astrovirus NEGATIVE ()?? 01/14/2023 10:45 GI PCR, Norovirus GI/GII NEGATIVE ()?? 01/14/2023 10:45 GI PCR, Rotavirus A NEGATIVE ()?? 01/14/2023 10:45 GI PCR, Sapovirus NEGATIVE ()?? 01/14/2023 10:45 ?? TOXICOLOGY/TDM Tacrolimus Level 7.6 ng/mL ()?? 02/01/2023 05:16 ? UA/URINALYSIS Appear/Color, Urine LIGHT YELLOW ()?? 01/29/2023 13:05 Specific [place], Urine 1.008 ()?? 01/29/2023 13:05 pH, Urine 6.0 ()?? 01/29/2023 13:05 Albumin, Urine TRACE (Abnormal)?? 01/29/2023 13:05 Glucose, Urine NEGATIVE ()?? 01/29/2023 13:05 Ketones, Urine NEGATIVE ()?? 01/29/2023 13:05 Bilirubin, Urine NEGATIVE ()?? 01/29/2023 13:05 Hemoglobin, Urine 1+ (Abnormal)?? 01/29/2023 13:05 Nitrite, Urine NEGATIVE ()?? 01/29/2023 13:05 Leukocyte, Urine NEGATIVE ()?? 01/29/2023 13:05 Urobilinogen NORMAL mg/dL ()?? 01/29/2023 13:05 WBC's, Urine 1 /HPF ()?? 01/29/2023 13:05 RBC's, Urine 4 /HPF (High)?? 01/29/2023 13:05 Squamous Epith 2 /HPF ()?? 01/10/2023 17:36 Granular Cast 4 /LPF ()?? 01/10/2023 17:36 Mucus SLIGHT /LPF ()?? 01/29/2023 13:05 Hold Urine Culture Testing available 48 hours from time of collection. ()?? 01/10/2023 17:36 ? URINE OTHER Est Creatinine Clearance 25.22 mL/min ()?? 01/31/2023 09:49 ? VIROLOGY COVID-19 by RT-PCR NEGATIVE ()?? 01/10/2023 21:59 ? Microbiology ?? C. difficile Rapid Toxin Assay?? Completed?? Source: Stool Body Site: ?? Collected Dt/Tm: 01/29/2023 15:43 Last Updated Dt/Tm: 01/29/2023 23:34 ? 35??minutes spent on discharge * Huseyin ESPAÑA, Juany Schultz: PERFORM, SIGN, VERIFY Event Display: Case Management Discharge Plan Authored Date: Patient: TITO RICHARDSON Age: 57 years Sex: Male : 1965 Associated Diagnoses: None Author: Huseyin ESPAÑA, Juany Schultz Discharge Plan Case Management Discharge Plan : Case Management Discharge Plan Data 02/01/2023 13:14 EDT Discharge Level of Care at Discharge Homehealth/VNA Discharge VNA/Hospice/Home Care [facility] [phone] Name of Agency #1 [facility] Service Categories #1 Physical Therapy, Retirement Service Comments #1 The VNA will call you 1-2 days after d/c to setup an appt. If you do not hear from them, please call them at [phone] * Salvador ESPAÑA, Ledy: PERFORM Event Display: Patient Education/Instruction Authored Date: [id number] Inpatient Adult Discharge Instructions [address] [address] Name: TITO RICHARDSON : 1965 Visit: 01/10/2023 22:38:00 Current Date: 02/01/2023 15:21 Account: [id number] Inpatient Adult Discharge Instructions We would like [...] and their families. Surveys are administered by [employer] ?? If further treatment with your primary care physician or another doctor is recommended, it is important for you to keep the appointment. Call your primary care physician or return to the Emergency Department immediately if your condition worsens, fails to improve, or new symptoms develop. If you need to find a doctor, you can call [facility] [employer] for a referral at [phone] or toll free at [phone]) or log in to [email or web address].. ?? You can view and manage your care through the patient portal or by using a health care niarj of your choosing. [employer] is a website that allows you to securely view your medical information including your hospital discharge summary, office visit summaries, medications and follow-up visits. You can also request appointments, renew medications, and request access to your medical information using a health care niraj of your choosing, or just ask a question. You can enroll at [email or web address] or register during your next office visit. You have been discharged from [facility], Patient Care Unit: S3. If you have any questions regarding these instructions after you leave, please call us and we will be happy to assist you. [facility] Your Care Team Attending Physician Alissa SEVERINO, Jhony Rodrigues Consulting Providers Isabela Caldera; Sorin SEVERINO, Milton A; Nishant SEVERINO, Mohan Thurston; Gordo SEVERINO, Johana L; Phyllis ELIZABETH, Narinder S; June SEVERINO, Katarzyna; Corazon SEVERINO, [facility]; Cici SEVERINO, [facility]; Zahraa SEVERINO, Jon Vargas; Wesly, Rosario Newby MD, Mykel Ortega; Edelmira SEVERINO, [facility]; Tanesha SEVERINO, [facility]; Dhiraj SEVERINO, ; Albino SEVERINO, [facility] Discharging Providers Alissa SEVERINO, Jhony Rodrigues Reason for Admission DIABETIC FOOT WOUND Your Diagnosis Diabetic infection of right foot PVD (peripheral vascular disease) Acute osteomyelitis of right calcaneus Kidney transplant recipient CKD (chronic kidney disease), stage IV BEATRIZ (acute kidney injury) Hypomagnesemia Hypertension Depression with anxiety Peripheral neuropathy Tests Performed Below is a partial list of the tests performed during your hospitalization. You may have had other tests and procedures not included in this list. Please discuss all test results with your provider. [id number] Basic Metabolic Panel BETA HYDROXYBUTYRATE BUN C. difficile Rapid Toxin Assay Calcium Level CBC CBC w/ Differential Cdiff Rapid Toxin Assay Complete Urinalysis Comprehensive Metabolic Panel COVID-19 (Novel Coronavirus), Rapid PCR Creatinine CRP Electrolytes ESR GI Profile, Stool, PCR Glucose Level GLUCOSE POC HEMOGLOBIN A1C HOLD BLUE TUBE HOLD GEL TUBE HOLD LAVENDER TUBE Lactate Level Lytes Magnesium Level Phosphorus Level Sedimentation Rate Tacrolimus Level Troponin T, High Sensitivity Urinalysis w/hold for Urine Culture CT Ext Lower W/O Contrast Right CXR Portable IR Generic Order IR Venous Access MRI Ext Lower W+W/O Contrast Right XR Calcaneus Min 2 Views Right XR Chest Portable Primary Care Provider Zoraida Luo MD Advance Directive Health Care Proxy on File Yes - Health Care Proxy Discharge Vitals Temperature: 98.1 DegF Height: 160 cm Pulse Rate: 89 bpm Weight: 76.9 kg Respiratory Rate: 16 br/min Body Mass Index:??30.04 kg/m2??Critical Systolic Blood Pressure: 135 mm Hg Body surface area: 1.85 Systolic Blood Pressure: 135 mm Hg ?? Diastolic Blood Pressure:??89 mm Hg??High ?? Diastolic Blood Pressure:??89 mm Hg??High ?? Oxygen Saturation: 95 % ?? Studies Pending All tests and labs ordered during this hospital stay have been completed unless listed below. Please discuss all pending results with your provider listed above in these instructions. ?? Add On Lab Order (Lab Add On Order) Basic Metabolic Panel Blood Culture Blood Culture #2 Fungal Culture, Nonrespiratory (FUNGAL CULT,NON-RESPIRATORY) RBCs for Surgery Tacrolimus Level Transfuse RBCs Type and Screen What to do next Instructions From Your Doctor Discharge Orders Scheduled Follow-Up Appointments 2022 10:00 AM EDT ?? With: Ute Badillo NP Where: [facility] Infectious Disease [address] [place] [id number]- Status: Pending Wednesday 3:30 PM EDT ?? With: Justina Newberry NP Where: [address] [address]- Status: Pending 2022 2:30 PM EDT ?? With: Chris Castle Where: [facility] Gastroenterology [address] [place] [id number]- Status: Pending You Need to Schedule the Following Appointments Follow Up with??Jaspal Cloud MD When:??Within 1 to 2 weeks Follow Up with??Zoraida Luo MD When:??Within 1 week Where: [address] [place] [address]- Discharge Medications TITO RICHARDSON :1965 Visit Date:01/10/2023 Medications: Please continue your medications until treatment is completed or stopped by your provider. Medications not listed below should be discontinued. Discuss any questions related to medications with your provider. What How Much When Instructions Next Dose Unchanged Amlodipine (amLODIPine 5 mg oral tablet) 1 tab(s) Oral Daily TAKE ONE TABLET EVERY MORNING ?? 02/02 Unchanged Atorvastatin (atorvastatin 10 mg oral tablet) 1 tab(s) Oral Daily TAKE ONE TABLET EVERY MORNING ?? 02/02 Unchanged Calcitriol (calcitriol 0.5 mcg oral capsule) 1 capsule Oral Daily TAKE ONE CAPSULE EVERY MORNING ?? 02/02 Unchanged Gabapentin (gabapentin 100 mg oral capsule) 1 capsule Oral Daily at Bedtime TAKE ONE CAPSULE BY MOUTH AT BEDTIME ?? 02/01 Unchanged HydrOXYzine (hydrOXYzine hydrochloride 10 mg oral tablet) 1 tab(s) Oral Twice a day TAKE ONE TABLET BY MOUTH IN THE MORNING AND EVENING ?? 02/01 Unchanged Insulin Glargine (Lantus Solostar Pen 100 units/ mL subcutaneous solution) INJECT 48 UNITS SUBCUTANEOUSLY EVERY EVENING ?? 02/01 Unchanged Insulin Lispro (insulin lispro 100 units/ mL injectable solution) 6 unit(s) Subcutaneous Injection 3 times a day before meals 02/01 Unchanged Lidocaine Topical (lidocaine 5% topical film) 1 patch(es) Topically Daily as needed for Pain , Mild remove after 12 hours ?? as needed Unchanged Metoprolol (Metoprolol Succinate ER 25 mg oral tablet, extended release) 1 tab(s) Oral Daily TAKE ONE TABLET EVERY MORNING ?? 02/02 Unchanged PredniSONE (predniSONE 10 mg oral tablet) 1 tab(s) Oral Daily TAKE ONE TABLET BY MOUTH EVERY MORNING ?? 02/02 Unchanged sodium bicarbonate (sodium bicarbonate 650 mg oral tablet) 1 tab(s) Oral 3 times a day TAKE ONE TABLET BY MOUTH THREE TIMES DAILY ?? 02/01 Unchanged Tacrolimus (tacrolimus 1 mg oral capsule) 2 capsule Oral Every 12 hours 02/01 Unchanged Tramadol (traMADol 50 mg oral tablet) 1 tab(s) Oral Every 6 hours as needed for Pain , Moderate TAKE ONE TABLET EVERY 6 HOURS NEEDED FOR PAIN ?? as needed Unchanged Trazodone (traZODone 50 mg oral tablet) 0.5 tab(s) Oral Daily at Bedtime TAKE 1/ 2 TABLET AT BEDTIME ?? 9pm 02/01 ?? What How Much When Comments Stop Taking Duloxetine (duloxetine 20 mg oral enteric coated capsule) 1 capsule Oral Daily TAKE ONE CAPSULE EVERY MORNING ?? Stop Taking Loperamide (loperamide 2 mg oral capsule) 1 capsule Oral As needed for as needed for loose stool TAKE ONE CAPSULE AFTER FIRST LOOSE STOOL AND ONE AFTER each NEXT BOWEL MOVEMENT, DO NOT EXCEED EIGHT CAPSULES IN 24 HOURS ?? Stop Taking Oxycodone (oxyCODONE 5 mg oral tablet) 1 tab(s) Oral Every 8 hours TAKE ONE TABLET EVERY 8 HOURS NEEDED FOR PAIN ?? Test Results Below is a partial list of the most recent Laboratory test results done prior to this discharge. You may have had other tests and procedures not included in this list. Please discuss all test resultswith your provider. Antibody Screen - Negative (01/29/2023) Blood Type - A Positive (01/29/2023) Est Creatinine Clearance - 25.22 mL/min (01/31/2023) RBC Available - PT (01/29/2023) RBC Unit ID - [id number] (01/29/2023) (01/25/2023) ? ?Surgical Pathology - Patient Name: TITO RICHARDSON
Lab
Patient : 1965 (Age: 57)
Collection Date: 01/25/2023
Accession Date: 01/25/2023
Sign Out Date: 02/01/2023

Ti ssue Source:
1:RIGHT LEG BKA REVISION

Final Diagnosis:< br/>Right leg, below knee amputation:
- Extensive ischemic injury/active inflammation of skin and underlying soft tissue and skeletal muscle.
- Bone with hemorrhagic marrow andremodelling.

Primary Pathologist:Carl Smith MD
electronically signed out by: Carl Smith MD / Coleman

Clinical History:
Right leg ischemia

Gross Description:
A. Specimen Identification:
1. Received labeled as Right leg below the knee amputation revision .
2. Received fresh.
3. Laterality: Right.
4. Type: Below the knee amputation revision.
B. Is There An Accompanying Disposal Authorization Form?: Yes.
1. Signed by: The patient on 01/25/2023.
C. External Examination:
1. Extremity length, from prior amputation site to proximal margin: 19 cm.
2. Length of tibia exposed: 3.2 cm.
Length of fibula exposed: 4.2 cm.
3. Presence of ulcers: No ulcers are identified grossly.
4. Presenceof surgical incisions/scars: The distal aspect of the specimen displays a 6.2 x 4.7 cm partially healed valdez-red, dull prior below the knee amputation site. The bony surface at the prior ampuation site is smooth.
5. Presence of other skin lesions: None.
6. Color of skin: Valdez.
7. Any absent digits?: The foot is previously removed, not present.
D. Comment: None.
E. Additional Tissue Processing: None.
F. Summary Of Sections:
1- 2 pieces, skin and soft tissue at prior amputation site
2- multiple pieces, bone marrow at prior amputation site, following decalcification. (KM)*

Phone #: [phone], On- Call Pathologist: [id number] Basic Metabolic Panel (01/31/2023) ???Sodium - 132 mmol/L???Potassium - 4.6 mmol/L???Chloride - 98 mmol/L???Bicarbonate Level - 27 mmol/L???Anion Gap - 7???Glucose Level - 152 mg/dL???BUN - 14 mg/dL???Creatinine-Blood - 2.6 mg/dL???Estimated GFR Creatinine - 27 ML/MIN/1.73 M2???Calcium - 7.9 mg/dL BETA HYDROXYBUTYRATE (01/10/2023) ???Beta Hydroxybutyrate - 1.34 mmol/L BUN (01/13/2023) ???BUN - 28 mg/dL C. difficile Rapid Toxin Assay (01/29/2023) ???C.difficile Toxin - Negative. C.Difficile bacterial antigen and toxin not detected. A Calcium Level (01/29/2023) ???Calcium - 8.0 mg/dL CBC (01/30/2023) ???WBC - 16.3 k/mm3???RBC - 3.03 m/mm3???Hgb - 8.6 Gm/dL???Hct - 26.5 %???MCV - 87.5 femtoliters???MCH - 28.4 pg???MCHC - 32.5 g/dL???Platelet Count - 570 k/mm3???RDW-SD - 49.1 femtoliters???MPV - 9.8 femtoliters???Nucleated RBC (Automated) - 0.1 #/100 WBC'S???Abs. NRBC - 0.0 k/mm3 CBC w/ Differential (01/29/2023) ???WBC - 21.7 k/mm3???RBC - 2.45 m/mm3???Hgb - 6.8 Gm/dL???Hct - 20.6 %???MCV - 84.1 femtoliters???MCH - 27.8 pg???MCHC - 33.0 g/dL???Platelet Count - 422 k/mm3???RDW-SD - 47.0 femtoliters???MPV - 10.1 femtoliters???Nucleated RBC (Automated) - 0.2 #/100 WBC'S???Abs. NRBC - 0.0 k/mm3???Abs. Neut - 16.4 k/mm3???Abs. Lymph - 2.4 k/mm3???Abs. Cherry - 2.2 k/mm3???Abs. Eo - 0.2 k/mm3???Abs. Baso - 0.1 k/mm3???Neut % - 75.6 %???Lymph % - 11.2 %???Cherry % - 10.1 %???Eos % - 0.8 %???Baso % - 0.4 %???Imm Gran - 1.9 %???Abs. Imm Gran - 0.4 k/mm3 Cdiff Rapid Toxin Assay (01/12/2023) ???C.difficile Toxin - Negative. C.Difficile bacterial antigen and toxin not detected. A Complete Urinalysis (01/29/2023) ???Appear/Color, Urine - LIGHT YELLOW???Specific [place], Urine - 1.008???pH, Urine - 6.0???Albumin, Urine - TRACE???Glucose, Urine - NEGATIVE???Ketones, Urine - NEGATIVE???Bilirubin, Urine - NEGATIVE???Hemoglobin, Urine - 1+???Nitrite, Urine - NEGATIVE???Leukocyte, Urine - NEGATIVE???Urobilinogen - NORMAL???WBC's, Urine - 1 /HPF???RBC's, Urine - 4 /HPF???Mucus - SLIGHT Comprehensive Metabolic Panel (01/23/2023) ???Sodium - 135 mmol/L???Potassium - 5.1 mmol/L???Chloride - 101 mmol/L???Bicarbonate Level - 26 mmol/L???Anion Gap - 8???Glucose Level - 249 mg/dL???BUN - 13 mg/dL???Creatinine-Blood - 2.8 mg/dL???Estimated GFR Creatinine - 26 ML/MIN/1.73 M2???Calcium - 7.8 mg/dL???Protein, Total - 5.4 Gm/dL???Albu min - 2.3 Gm/dL???AG Ratio - 0.7???Alkaline Phosphatase - 321 units/L???AST (SGOT) - 18 units/L???ALT (SGPT) - 17 units/L???Bilirubin, Total - 0.4 mg/dL COVID-19 (Novel Coronavirus), Rapid PCR (01/10/2023) ???COVID-19 by RT-PCR - NEGATIVE Creatinine (01/13/2023) ???Creatinine-Blood - 2.5 mg/dL???Estimated GFR Creatinine - 29 ML/MIN/1.73 M2 CRP (01/25/2023) ???C-Reactive Protein - 2.9 mg/dL Electrolytes (01/12/2023) ???Sodium - 139 mmol/L???Potassium - 3.3 mmol/L???Chloride - 107 mmol/L???Bicarbonate Level - 17 mmol/L???Anion Gap - 15 ESR (01/25/2023) ???Sed Rate - 86 mm/hr GI Profile, Stool, PCR (01/14/2023) ???GI PCR, Campylobacter - NEGATIVE???GI PCR, Plesiomonas shigelloides - NEGATIVE???GI PCR, Salmonella - NEGATIVE???GI PCR, Vibrio - NEGATIVE???GI PCR, Vibrio cholerae - NEGATIVE???GI PCR, Yersinia enterocolitica - NEGATIVE???GI PCR, Enteroaggregative E coli - NEGATIVE???GI PCR, Enteropathogenic E coli - NEGATIVE???GI PCR, Enterotoxigenic E coli - NEGATIVE???GI PCR, Qiqow-cfmdf-dmadtqciz E coli -NEGATIVE???GI PCR, Shigella/Enteroinvasive E coli - NEGATIVE???GI PCR, Cryptosporidium - NEGATIVE???GI PCR, Cyclospora cayetanensis - NEGATIVE???GI PCR, Entamoeba histolytica - NEGATIVE???GI PCR, Giardia lamblia - NEGATIVE???GI PCR, Adenovirus F 40/41 - NEGATIVE???GI PCR, Astrovirus - NEGATIVE???GIPCR, Norovirus GI/GII - NEGATIVE???GI PCR, Rotavirus A - NEGATIVE???GI PCR, Sapovirus - NEGATIVE Glucose Level (01/12/2023) ???Glucose Level - 160 mg/dL GLUCOSE POC (02/01/2023) ???Glucose, POC - 138 mg/dL HEMOGLOBIN A1C (01/11/2023) ???Hemoglobin A1C (Monitoring) - 11.5 % HOLD BLUE TUBE (01/10/2023) ???Hold Blue Top - SPECIMEN DISCARDED AFTER 4 HOURS. HOLD GEL TUBE (01/28/2023) ???Hold Gel Top - SPECIMEN DISCARDED AFTER 1 WEEK HOLD LAVENDER TUBE (01/15/2023) ???Hold Lavender Top - SPECIMEN DISCARDED AFTER 24 HOURS. Lactate Level (01/10/2023) ???Lactate - 1.1 mmol/L Lytes (01/29/2023) ???Sodium - 134 mmol/L???Potassium - 5.2 mmol/L???Chloride - 100 mmol/L???Bicarbonate Level - 26 mmol/L???Anion Gap - 8 Magnesium Level (01/29/2023) ???Magnesium - 1.8 mg/dL Phosphorus Level (01/28/2023) ???Phosphorus - 2.9 mg/dL Sedimentation Rate (01/13/2023) ???Sed Rate - 86 mm/hr Tacrolimus Level (02/01/2023) ???Tacrolimus Level - 7.6 ng/mL Troponin T, High Sensitivity (01/28/2023) ???High Sensitivity Troponin (HSTnT) - 54 ng/L Urinalysis w/hold for Urine Culture (01/10/2023) ???Appear/Color, Urine - LIGHT YELLOW???Specific [place], Urine - 1.013???pH, Urine - 5.5???Albumin, Urine - 1+???Glucose, Urine - 4+???Ketones, Urine - TRACE???Bilirubin, Urine - NEGATIVE???Hemoglobin, Urine - NEGATIVE???Nitrite, Urine - NEGATIVE???Leukocyte, Urine - NEGATIVE???Urobilinogen - NORMAL? ?WBC's, Urine - <1 /HPF? ?RBC's, Urine - NONE SEEN? ?Squamous Epith - 2 /HPF? ?Granular Cast - 4 /LPF???Mucus - SLIGHT???Hold Urine Culture - Testing available 48 hours from time of collection. Allergies (NKA means No Known Allergies) morphine Problems Active Problems??(1) Obese class I?? Education Materials Below is the list of Educational Leaflet Providered with your Discharge Instructions. Diabetes: Keeping Feet Healthy?? Discharge Instructions for Diabetic Foot Pressure Injuries?? Your Diabetes Foot Care Program?? Valuables and Belongings I fully understand and agree that [facility] accepts no responsibility for all my [...] Review of Valuable and Belonging List: With patient Disposition of Belongings: Sent home with patient/family Possessions released to: all belongings in bags on arrival to preop, patient family took them home. Date for Pt to Sign Valuables/Belongings: 01/30/23 17:01:00 ?? Other Discharge Information ?? Wound Assessment?? Wound Assessment?? Wound Location I: Leg, right lower Wound Type I: Surgical ?? Case Management Discharge Plan?? Discharge Plan?? Discharge Agency Information?? Discharge Level of Care at Discharge: Homehealth/VNA Name of Agency #1: [facility] Discharge VNA/Hospice/Home Care: [facility] [phone] Service Categories #1: Physical Therapy, Retirement ?? Service Comments #1: The VNA will call you 1-2 days after d/c to setup an appt. If you do not hear from them, please call them at [phone] ?? Pulmonary Rehab Status?? Pulmonary Rehab Discharge Status?? Respiratory Rate: 16 br/min ? Common Emergency Awareness Tips IS [...] are strongly encouraged to quit. Please call [facility] [employer] at [phone] or [phone] ([phone]) or log in to [email or web address] for referrals to smoking cessation programs. ?? 028 Suicide & Crisis Lifeline is available 11/01 if you or someone you know needs to find a reason to keep living. By calling 305 you'll be connected to a skilled, trained counselor at a crisis center in your area. INPATIENT DISCHARGE INSTRUCTIONS SIGNATURE PAGE TITO RICHARDSON Location:[facility] Registration Date and Time:01/10/2023 22:38 EDT Primary Care Physician: Zoraida Luo MD, Attending Physician: Jhony Maxwell MD, I TITO RICHARDSON, have received the above patient education materials/instructions and have verbalized understanding. If ambulance or transport services are being used I further acknowledge being given a choice of service. ?? If you need to contact me, please call me at this number: . Patient/Drawing In Machine Tender Helper Name: Patient/Drawing In Machine Tender Helper Signature: Relationship to Patient: Witness Name/Signature: Date: * Ledy Franco RN: PERFORM Event Display: Patient Education Leaflets Authored Date: [id number] Diabetes: Keeping Feet Healthy ?? [id number] Diabetes: c??mo mantener sanos los pies La diabetes puede da??ar los nervios de los pies. Puede provocarle debilidad, entumecimiento y dolor (neuropat??a).??[place] hace que resulte m??s dif??cil sentir las heridas o los puntos sensibles. Adem??s, la diabetes puede afectar la circulaci??n de la chapo. [place] puede dificultar la curaci??n de problemas leves odalis las ampollas. De hecho, hasta las lesiones leves pueden convertirse r??pidamente en infecciones graves. Y algunas pueden requerir hospitalizaci??n. El cuidado personal es fundamental. Ayuda a proteger los pies y mantenerlos sanos.?? Ponga especial cuidado Estos consejos pueden ser ??tiles para cuidar rosemary pies: ??? Inspeccione diariamente los pies para noah si hay alg??n problema, odalis hinchaz??n, enrojecimiento y ampollas. Controle tambi??n que no hayagrietas, resecamiento de la piel ni falta de sensibilidad. Use un brandon para verse las plantas de los pies. O pida ayuda. Examine rosemary pies a la misma hora todos los d??as. ??? Maneje jaramillo diabetes. Mida jaramillo nivel de az??car en la chapo y mant??ngalo bajo control. Whalan todos los medicamentos seg??n le hayan indicado. Llame a jaramillo proveedor si tiene problemas para controlar jaramillo nivel de az??car en la chapo. ??? No omar descalzo, incluso dentro de jaramillo casa. Siempre use medias con rosemary zapatos.? L??vese los pies con agua tibia y jab??n suave. Controle la temperatura del agua antes de poner los pies en el agua. S??quelos amena, especialmente entre los dedos. ??? No se trate usted mismo las u??as encarnadas, los callos ni las callosidades. Hable con jaramillo proveedor o con un m??dico especialista en pies (podiatra) si necesita ayuda para recortarse las u??as de los pies. Pida a jaramillo podiatra un plan para el cuidado de los pies. ??? Use grzegorz crema o loci??n humectante si tiene la piel reseca. Love nose la aplique entre los dedos. ??? No use almohadillas calefactoras en los pies. Si tiene da??o nervioso (neuropat??a), podr??a quemarse y no sentirlo. ??? Deje de fumar. Fumar limita el flujo sangu??jody. Pude dificultar la cicatrizaci??n de las heridas. ??? No use hojas filosas para recortarse lasu??as. En cambio, use un corta?as y grzegorz jerome.? H??gase chequeos regulares Los problemas de los pies pueden presentarse r??pidamente. Vaya a todos los controles programados con jaramillo equipo de atenci??n m??dica. Sonia las visitas al m??dico, qu??tese los zapatos y las mediastan pronto odalis entre en el cuarto de consulta. Pida a jaramillo proveedor que le examine los pies para detectar posibles problemas. [place] facilitar?? la detecci??n y el tratamiento de amy??os problemas yan piel antes de que empeoren. Los controles regulares tambi??n pueden ayudarlo a vigilar la circulaci??n de la chapo y el nivel de sensibilidad de los pies. En algunos casos, es posible que disminuyan los pulsos en los pies. Jaramillo proveedor podr??, en jt shyla, derivarlo para que le realicen mediciones especiales de la presi??n arterial en los brazos y los pies. Si tiene neuropat??a, es posible que necesite hacerse controles m??s a menudo. Pida a jaramillo proveedor de atenci??n m??dica que le revise los pies cada vez que vaya a la consulta y, al menos, grzegorz vez al a??o. ?? Use calzado adecuado El uso de calzado adecuado es muy importante. Algunas zonas de los pies carvalho sufrido da??os odalis consecuencia del exceso de presi??n. Jaramillo proveedor podr??a recomendarle que cambie de calzado. Quiz??s deba evitar usar zapatos de tac??n alto o botas de trabajo ajustadas. O amena, jaramillo proveedor podr??a recomendarle usar calzado especial o plantillas. [place] es para proteger los pies. Y ayudar?? a evitar que los problemas empeoren. Si necesita calzado especial, pregunte a jaramillo proveedor si re??ne los requisitos para participar en el programa de calzado y plantillas a medida y con profundidad adicional para diab??ticos de Medicare.? Aseg??rese de que los zapatos y las medias maura de jaramillo medida Todos los zapatos (nuevos o viejos) deben resultar c??modos inmediatamente al calzarlos. No debe lynette laurence??n tipo de rozamiento al caminar. Utilice el tipo de zapato adecuado para cada actividad. Por ejemplo, el calzado para correr est?? dise??ado para evitar que los pies se lesionen mientras corre. Compre los zapatos al final del d??a, cuando los pies est??n m??s agrandados. Compruebe que sostengan amena los pies sin quedar demasiado sueltos. Aseg??rese tambi??n de que las medias le calcen amena. Use medias suaves, sin costuras y amena acolchadas para hacer ejercicio. Las medias de algod??n ode microfibra son mejores. Ayudan a absorber el sudor. Para proteger rosemary pies, no use zapatos abiertos por ember ni por detr??s. Si tiene dudas acerca del tipo de zapatos y medias que debe usar, consulte con jaramillo equipo de atenci??n m??dica. . ?? Quita ejercicio con regularidad El ejercicio regular ayuda a que el flujo sangu??jody llegue a los pies. Tambi??n puede fortalecer los pies y aumentar la flexibilidad. El mejor ejercicio consiste en grzegorz actividad moderada, odalis caminar o pedalear en grzegorz bicicleta fija. Tambi??n puede hacer ejercicios especiales para los pies. Consulte a jaramillo proveedor antes de comenzar un programa de ejercicios. Tambi??n informe a jaramillo proveedor si alg??n ejercicio le causa dolor, enrojecimiento u otros problemas en los pies. ? Nota: Si tiene alg??n tipo de lastimadura en la piel del pie o tobillo, mantenga la bailey limpia. Luego, llame a jaramillo proveedor de atenci??n m??dica. En especial, si la bailey no parece estar cicatrizando. ?? Last Reviewed Date: 2021 ?? [id number] [employer]. Todos los derechos reservados. Esta informaci??n no pretende sustituir la atenci??n m??dica profesional. S??lo jaramillo m??dico puede diagnosticar y tratar un problema de carlin. ?? * Ledy Franco RN: PERFORM Event Display: Patient Education Leaflets Authored Date: [id number] Discharge Instructions for Diabetic Foot Pressure Injuries ?? 97296 Instrucciones de lyle para ulceraciones en los pies debido a la diabetes Le diagnosticaron ulceraciones en los pies debido a la diabetes. Esta es grzegorz afecci??n que dificulta mucho el control de jaramillo nivel de az??car en la chapo. Grzegorz complicaci??n peligrosa de la diabetes es el aumento del riesgo de presentar problemas serios en los pies. La diabetes puede causar da??o a los nervios. [place] significa que es posible que no sienta grzegorz llaga en el pie. Incluso las heridas menores se pueden infectar f??cilmente cuando usted tiene diabetes. Si no se tratan, estas infeccionespueden poner en riesgo jaramillo yeimi. Las infecciones que llegan a los huesos tambi??n pueden extenderse por el pie y la pierna. En algunos casos, es necesaria la amputaci??n (extirpaci??n). El proveedor de atenci??n m??dica quiere que practique el buen cuidado de rosemary pies odalis persona condiabetes. [place] puede ayudar a asegurar que los puntos calientes, las amy??as rajaduras o llagas puedan recibir tratamiento antes de que ocurra la infecci??n. Si tiene grzegorz infecci??n, probablemente le recetar??n medicamentos. Siga las sugerencias en esta hoja para el mejor cuidado de rosemary pies. Despu??s de la cirug??a Si se someti?? a grzegorz cirug??a, cambie los vendajes seg??n las indicaciones del proveedor de atenci??n m??dica. De esta forma, ayuda a prevenir infecciones. El cuidado regular de la herida lo ayuda a mantener el pie wilbur de infecci??n y a sanar: ??? L??vese amena las nimesh con agua corriente limpia y jab??n sonia al menos 20??segundos. ??? P??ngase guantes descartables si tiene grzegorz infecci??n en rosemary pies. ??? Quite con cuidado el vendaje usado y t??relo en grzegorz bolsa de pl??stico. ??? Qu??tese los guantes. ??? L??vese las nimesh otra vez. ??? P??ngase un nuevo par de guantes. ??? Limpie y aplique ap??sito en la herida, seg??n las instrucciones del proveedor de atenci??n m??dica. ??? Coloque todos los elementos usados o desechos en grzegorz bolsa de pl??stico antes de ponerlos en el bote de la basura. ??? Coloque los objetos punzantes en un recipiente a prueba de bryant (caja para objetos punzantes). ?? Revise diariamente rosemary pies?? [place] es lo que puede hacer: ??? Controle los pies todos los d??as. Use un brandon para mirarse la planta del pie. Aseg??rese de revisar tambi??n entre los dedos de los pies. De esta manera, puede detectar los amy??os cambios de la piel antes de que se infecten. O antes de que se conviertan en problemas mayores, odalis las ??lceras por presi??n. ??? Llame de inmediato al proveedor de atenci??n m??dica detecta alg??n problema. Estos incluyen puntos calientes, vetas bunch, hinchaz??n, grietas, llagas, lesiones, ampollas u objetos extra??os en el pie. ??? Revise las suelas y el interior de rosemary zapatos antes de royce??rselos. Verifique que no haya piedritas ni astillas. Quite cualquier objeto que en cuentre. Podr??an rajar la piel o aumentar la presi??n en los pies. ?? Cuidado de los pies L??vese los pies todos los d??as con agua tibia y un jab??n suave. Las sugerencias incluyen las siguientes:? L??vese los pies todos los d??as. Use agua que no est?? caliente (tibia) y un jab??n suave. L??vese entre los dedos. ??? Use grzegorz toalla suave para secarse amena los pies. Es muy importante secarse amena entre los dedos de los pies.??S??quese los pies congolpecitos suaves. No restriegue. ??? Use grzegorz crema hidratante para mantener la piel suave. Especialmente en los talones. Si la piel est?? agrietada, consulte al proveedor de atenci??n m??dica. Y preg??ntele c??mo debe tratarla. No se coloque loci??n entre los dedos. [place] puede causar infecciones ash??ruel.? Antes de colocarse los zapatos, revise rosemary medias. Aseg??rese de que no est??n arrugadas. Tambi??n aseg??rese de que no tengan dobleces ni grietas. Hasta los amy??os bultos de las medias mal acomodadas en los zapatos pueden causar grzegorz herida grave en el pie.??Considere la posibilidad de usar medias sin costuras. ??? Consulte al proveedor de atenci??n m??dica antes de hacerse tratamientos en los callos, las callosidades o los juanetes. Nunca los trate por jaramillo cuenta. ??? C??rtese las u??as en l??mary recta para evitar que se encarnen.??Hable con el proveedor de atenci??n m??dica si tiene problemas para cortarse las u??as de los pies. ??? No deje que rosemary pies se pongan muy calientes ni muy fr??os. ??? Evite las superficies ??speras. O con objetos puntiagudos. ??? No sumerja los pies. [place] puede hacer que la piel se seque. ??? No use zapatos apretados ni inc??modos. Hable con el equipo de atenci??n m??dica si necesita ayuda para encontrar zapatos que le queden amena. Hay disponibles zapatos hechos espec??ficamente para personas con diabetes. ??? No pruebe la temperatura del agua de la colton del ba??o con los pies si gagnon perdido sensibilidad. Use las nimesh en jaramillo lugar. ??? No omar nunca descalzo, ni siquiera dentro de jaramillo casa. ??? Establezca un momento del d??a para revisar que rosemary pies no tengan llagas ni zonas de presi??n. Use un brandon para revisar las plantas de los pies. ??? Siga las instrucciones del proveedor de atenci??n m??dica sobre caminar y otras actividades. Puede lynette algunos l??mites, seg??n el estado de rosemary pies. Tambi??n podr??a necesitar zapatosespeciales o plantillas. Estos alivian la presi??n de las ??lceras.? [place] los medicamentos exactamente seg??n las indicaciones. ?? Seguimiento El proveedor de atenci??n m??dica le examinar?? los pies damian??dicamente. El proveedor de atenci??nm??dica podr??a remitirle a un centro especial para el tratamiento de heridas. ?? Cu??ndo llamar al proveedor de atenci??n m??dica Llame al proveedor de atenci??n m??dica si ocurre algo de lo siguiente: ??? Fiebre de 100.4?F (38?C) o superior, o seg??n le indique el proveedor de atenci??n m??dica? Enrojecimiento, hinchaz??n o dolor en el pie o incisi??n quir??rgica ??? Nuevas llagas o zonas de preocupaci??n en los pies ??? Entumecimiento u hormigueo en cualquier parte del pie ??? Escalofr??os, aturdimiento o desmayos ??? Drenaje o mal olor de heridas, incisiones o zonas inflamadas ??? La incisi??n se abre o sangra mucho ?? Last Reviewed Date: 2021 ?? [id number] [employer]. Todos los derechos reservados. Esta informaci??n no pretende sustituir la atenci??n m??dica profesional. S??lo jaramillo m??dico puede diagnosticar y tratar un problema de carlin. ?? * Ledy Franco RN: PERFORM Event Display: Patient Education Leaflets Authored Date: [id number] Your Diabetes Foot Care Program ?? 42681 Programa para el cuidado de los pies en personas con diabetes Usted depende constantemente de los pies para moverse de un lado a otro. Sin embargo, si tiene diabetes, los pies necesitan un cuidado especial. Incluso un problema amy??o en un pie puede agravarsemucho. Por esta cady??n, no desatienda los pies. Trabaje en colaboraci??n con jaramillo equipo de atenci??nm??dica para la diabetes. Ellos pueden ayudarlo a proteger los pies y mantenerlos sanos. Examen de los pies Grzegorz evaluaci??n le ayuda a jaramillo proveedor de atenci??n m??dica a determinar el estado de rosemary pies. Laevaluaci??n incluye grzegorz revisi??n de rosemary antecedentes de diabetes y de jaramillo carlin general. Tambi??n puede incluir un examen de los pies, radiograf??as y otras pruebas. Estos ex??menes y pruebas ayudan a detectar la existencia de problemas debajo de la piel que usted no puede noah ni sentir. ?? Historia cl??anupam Le sol??n preguntas sobre jaramillo carlin en general y sobre los problemas de los pies que haya tenido. Tambi??n se analizar??n rosemary antecedentes de diabetes; por ejemplo, si jaramillo nivel de az??car en la sangreha cambiado con el tiempo. Tambi??n incluir?? preguntas sobre las sensaciones de dolor, hormigueo, pinchazos o entumecimiento. Jaramillo proveedor de atenci??n m??dica adem??s deber?? saber si usted tiene presi??n arterial lyle o alguna enfermedad renal. Tambi??n si fuma.??Informe al proveedor si tuvo infecciones anteriores en los pies. Informe al proveedor todos los medicamentos (incluidos los de ventalibre), las vitaminas, los suplementos o los medicamentos a base de hierbas que becka. ?? Examen de los pies Barb examen determina el estado de diversas partes del pie. En primer lugar, le revisar??n la piel y las u??as en busca de signos de infecci??n. Se comprobar?? la circulaci??n de la chapo tomando elpulso en ambos pies. Es posible que le david pruebas para estudiar el estado de los nervios de los pies. En estas pruebas, se usa un alambre amy??o (filamento) para determinar el nivel de sensibilidad de los pies. Si tiene la piel del pie reseca, podr??a ser un indicio de da??o de los nervios quecontrolan la humectaci??n de la piel. Las infecciones ash??ruel en las u??as del pie pueden provocar infecciones bacterianas m??s graves. En algunos casos, le pedir??n que camine grzegorz distancia corta. [place] ayudar?? a determinar si tiene problemas en los huesos, las articulaciones o los m??sculos. ?? Pruebas de diagn??stico Si es necesario, jaramillo proveedor de atenci??n m??dica recomendar?? que se quita ciertas pruebas para obtener m??s informaci??n sobre los pies. Entre ellas, se incluyen las siguientes: ??? Ecograf??as Doppler. Se mide la circulaci??n de la chapo en los pies y en la parte inferior de las piernas. ??? Radiograf??as. Pueden revelar problemas de los huesos o de las articulaciones. ??? Otras pruebas de diagn??stico por im??genes. Pueden incluir grzegorz resonancia magn??jennifer (IRM), grzegorz gammagraf??a ??sea o grzegorz tomograf??a computarizada (CT). Estas pruebas pueden ayudar a detectar infecciones en los huesos.??? Otras pruebas. Se pueden incluir ex??menes vasculares. Estos estudian la circulaci??n sangu??mary en los pies y las piernas. [place] se realiza comparando las presiones arteriales en el brazo y el tobillo. Tambi??n podr??an hacerle estudios de los nervios para determinar la sensibilidad de los pies. ?? Elaboraci??n de un programa para el cuidado de los pies Seg??n los resultados de la evaluaci??n, jaramillo proveedor de atenci??n m??dica crear?? un programa de cuidado de los pies para usted. El programa puede ser valdez simple odalis iniciar grzegorz rutina diaria de cuidado personal. Tambi??n deber?? cambiar el tipo de calzado que usa. Adem??s, puede incluir el tratamiento de problemas menores de los pies, odalis un callo o grzegorz ampolla. En algunos casos, ser?? necesario realizar grzegorz cirug??a para tratar grzegorz infecci??n. Tambi??n problemas mec??nicos, odalis los dedos en garra y los dedos en martillo. ?? C??mo prevenir problemas Cuando tiene diabetes, es preferible prevenir los problemas que tener que tratarlos m??s adelante. Por esta cady??n, visite a jaramillo equipo de atenci??n m??dica para hacerse chequeos y cuidar de rosemary pies regularmente. Jaramillo equipo de atenci??n m??dica tambi??n puede darle m??s informaci??n sobre c??mo cuidarse los pies en jaramillo casa. Por ejemplo, es posible que le pidan que evite caminar descalzo, incluso dentro de jaramillo casa. O maryellen vez le indiquen que necesita usar calzado especial para proteger los pies. ?? H??gase chequeos regulares Los problemas de los pies pueden presentarse r??pidamente. Por lo tanto, es importante que vaya a todas las visitas programadas con jaramillo equipo de atenci??n m??dica. Sonia las visitas al m??dico, qu??tese los zapatos y las medias valdez pronto odalis entre al consultorio. Pida a jaramillo proveedor de atenci??n m??dica que le examine los pies para detectar posibles problemas. [place] facilitar?? la detecci??n yel tratamiento de amy??os problemas de la piel antes de que empeoren. Los controles regulares tambi??n pueden ayudarlo a controlar la circulaci??n de la chapo y el nivel de sensibilidad de los pies. Es posible que le duelan los pies o que presente p??rdida de sensaci??n en los pies (neuropat??a). En barb shyla, necesitar?? controles con mayor frecuencia. ?? Aprenda a cuidarse Cuanto m??s sepa sobre la diabetes y los pies, m??s f??cil le ser?? prevenir problemas. Jaramillo equipo de atenci??n m??dica puede ense??arle c??mo revisarse los pies todos los d??as. [place] le ayudar?? a detectar signos de advertencia. Tambi??n pueden darle otros consejos sobre el cuidado de los pies. Antes de las visitas al consultorio, anote todas las preguntas que tenga sobre el cuidado de los pies. Sonia las visitas, quita todas las preguntas que tenga. ?? Last Reviewed Date: 2021 ?? [id number] [employer]. Todos los derechos reservados. Esta informaci??n no pretende sustituir la atenci??n m??dica profesional. S??lo jaramillo m??dico puede diagnosticar y tratar un problema de carlin. ?? * Event Display: Provider Clarification Note Please click on pdf link to open report Patient Care team information Care Team Personnel Name: Goyo Juan MD Position: [facility] Renal MD Member Role: Lifetime Consulting Physician Address: Address: [address] [place] [address], [address] [place] [address]- Name: Claudine Judge RN Position: [facility] RN Member Role: Primary Care Nurse Name: Misty Butt RN Position: [facility] RN Member Role: Primary Care Nurse Name: Cher Nichols Position: [facility] RN Member Role: Primary Care Nurse Name: Jodi Solorzano RN Position: [facility] RN Member Role: Primary Care Nurse Name: Erum Fuentes Position: [facility] RN Member Role: Primary Care Nurse Name: Donna May RN Position: [facility] RN Member Role: Primary Care Nurse Name: Anthony Magdaleno RN Position: [facility] RN Member Role: Primary Care Nurse Name: Chung Fernandez RN Position: [facility] RN Member Role: Primary Care Nurse Name: Hansa Carmona Position: [facility] RN Member Role: Primary Care Nurse Name: Donna Hatfield LPN Position: [facility] RN Member Role: Primary Care Nurse Name: Jimy Gaytan RN Position: [facility] RN Member Role: Primary Care Nurse Name: Deirdre Lopez RN Position: [facility] RN Member Role: Primary Care Nurse Name: Rosario Alcantara RN Position: [facility] RN Member Role: Primary Care Nurse Name: Robert Braden RN Position: [facility] RN Member Role: Primary Care Nurse Name: Jess Chong RN Position: [facility] RN Member Role: Primary Care Nurse Name: Jacoby Sood MD Position: [facility] Renal MD Member Role: Lifetime Consulting Physician Address: Address: [address] [place] [address] [address] [facility] [place] [address]- Name: Linda Benson LPN Position: [facility] RN Member Role: Primary Care Nurse Name: Jocelyn Modi RN Position: [facility] RN Member Role: Primary Care Nurse Name: Erma Lira RN Position: [facility] RN Member Role: Primary Care Nurse Name: Sherif Amaya MD Position: [facility] Renal MD Member Role: Lifetime Consulting Physician Address: Address: [address] [place] [address] [facility] [place] [address]- Name: Courtney Freed RN Position: S RN Member Role: Primary Care Nurse Name: Kaylan Caraballo RN Position: S RN Member Role: Primary Care Nurse Name: Zoraida Luo MD Position: Reference Physician Member Role: PCP Address: Address: [address] [place] [id number]- Name: Ledy Franco RN Position: [facility] RN Member Role: Primary Care Nurse Name: Rosina Fernandez RN Position: [facility] RN Member Role: Primary Care Nurse Name: Fadia Santacruz Position: S RN Member Role: Primary Care Nurse Name: Faina GUNTER Attending Position: [facility] ED Medicine MD Name: Bao Cervantes Position: [facility] ED TA [facility] Member Role: Air Bag Stripper Name: Mary Jeff RN Position: [facility] RN Member Role: Patient Care Provider Name: Keven Alvares Position: [facility] ED OA Charge Member Role: ED Associate Care Team Related Persons Name: AUTUMN CHUA Address: home [address] [facility] [address] [place] [address] [place] [address] Name: MICHELA BASILIO Address: home [address] [facility] [address] [facility] [place] [address]
--- OUTSIDE RECORDS SUMMARY | 2023-04-04 19:47 | XMS_ITS | Continuity of Care Document ---
Author Name Unknown Organization [facility] Address [address] [place] [address]- Care Team Providers Care Oceanography Professor Name Role Phone Valerio SEVERINO, Zoraida Primary Care Physician Encounter [facility] Date(s): 03/03/23 - 04/02/23 [facility] [address] [place] [address]- Allergies, Adverse Reactions, Alerts Substance Reaction Severity [...] 1Early/Late Reason: Med Not Available 2Result Comment: [id number], NOV 28 3Early/Late Reason: Med Not Available [...] 0 Refills, Maintenance, 03/22/23 14:49:00 EDT, Ointment, [facility], Partial fill upon patient request [...] 03/22/23 14:49:00 EDT, Route to Pharmacy Electronically, [facility], Partial fill upon patien... Start Date: [...] 0 Refills, Maintenance, 03/11/23 12:54:00 EDT, Injection, [facility], Partial fill upon patient request [...] Team Personnel Name: Radha Borjas RN Position: S RN Member Role: Primary Care Nurse Name: Yady Copeland RN Position: S RN Member Role: Primary Care Nurse Name: Goyo Juan MD Position: [facility] Renal MD Member Role: Lifetime Consulting Physician Address: Address: [address] [place] [address] Name: Maria Dolores White RN Position: S RN Member Role: Primary Care Nurse Name: Claudine Judge RN Position: [facility] RN Member Role: Primary Care Nurse Name: Misty Butt RN Position: S RN Member Role: Primary Care Nurse Name: Cher Nichols Position: S RN Member Role: Primary Care Nurse Name: Suze Villafuerte NP Position: [facility] Associate Professional Member Role: Primary Care Nurse Address: Address: [address] [place] [address] Name: Jodi Solorzano RN Position: S RN Member Role: Primary Care Nurse Name: Isabela Caldera Position: [facility] Associate Professional Member Role: Lifetime Consulting Provider Address: Address: [address] [place] [address] [facility] [place], [place] [address] Name: Erum Fuentes Position: S RN Member Role: Primary Care Nurse Name: Neetu Frost Position: [facility] PCO RN Member Role: Primary Care Nurse Name: Juana Palafox RN Position: S RN Member Role: Primary Care Nurse Name: Anthony Magdaleno RN Position: S RN Member Role: Primary Care Nurse Name: Hansa Carmona Position: S RN Member Role: Primary Care Nurse Name: Donna Hatfield LPN Position: [facility] RN Member Role: Primary Care Nurse Name: Farzaneh Palacios RN Position: [facility] RN Member Role: Primary Care Nurse Name: Migel Cruz RN Position: [facility] RN Member Role: Primary Care Nurse Name: Radha Nye RN Position: [facility] RN Member Role: Primary Care Nurse Name: Cristina Spence Position: [facility] RN Member Role: Primary Care Nurse Name: Shira Mann RN Position: [facility] RN Member Role: Primary Care Nurse Name: Odin Rodriguez DO Position: [facility] Renal MD Member Role: Lifetime Consulting Physician Address: Address: [address] [place], [place] [address] [place] [address]- Name: Jimy Gaytan RN Position: [facility] RN Member Role: Primary Care Nurse Name: Frida Blanco RN Position: [facility] RN Member Role: Primary Care Nurse Name: Nik Esposito Position: [facility] Associate Professional Member Role: Lifetime Consulting Provider Address: Address: [address] [place] [address] Name: Deirdre Lopez RN Position: [facility] RN Member Role: Primary Care Nurse Name: Rosario Alcantara RN Position: [facility] RN Member Role: Primary Care Nurse Name: Robert Braden RN Position: [facility] RN Member Role: Primary Care Nurse Name: Jess Chong RN Position: [facility] RN Member Role: Primary Care Nurse Name: Jacoby Sood MD Position: [facility] Renal MD Member Role: Lifetime Consulting Physician Address: Address: [address] [place] [address] [address] [facility] [place] [address]- Name: Ramonita Bardales RN Position: [facility] RN Member Role: Primary Care Nurse Name: Ramin Bradley RN Position: [facility] RN Member Role: Primary Care Nurse Name: Linda Benson LPN Position: [facility] RN Member Role: Primary Care Nurse Name: Jocelyn Modi RN Position: [facility] RN Member Role: Primary Care Nurse Name: Erma Lira RN Position: [facility] RN Member Role: Primary Care Nurse Name: Sherif Amaya MD Position: [facility] Renal MD Member Role: Lifetime Consulting Physician Address: Address: [address] [place] [address] [facility] [place] [address]- [place] Name: Aristeo ESPAÑA, Cony Leyva Position: [facility] SN RN Member Role: Primary Care Nurse Name: Kaylan Caraballo RN Position: [facility] RN Member Role: Primary Care Nurse Name: Zoraida Luo MD Position: Reference Physician Member Role: PCP Address: Address: [address] [place] [address]- Name: Ledy Franco RN Position: [facility] RN Member Role: Primary Care Nurse Name: Rosina Fernandez RN Position: [facility] RN Member Role: Primary Care Nurse Name: Mj ESPAÑA, Kaylan Cline Position: [facility] Onco RN Member Role: Primary Care Nurse Name: Jeannie Mccarty RN Position: [facility] RN Member Role: Primary Care Nurse Name: Meghann Mccracken RN Position: [facility] Hospital Birdcage Assembler Member Role: Primary Care Nurse Name: Jean-Paul ESPAÑA [place] Position: [facility] SN RN Member Role: Primary Care Nurse Care Team Related Persons Name: LIVE CHUA Address: [address] [place] [address] Name: MICHELA BASILIO Address: [address] [place] [address]
--- OUTSIDE RECORDS SUMMARY | 2023-04-04 19:48 | XMS_ITS | Continuity of Care Document ---
Author Name Unknown Organization [facility] Address [address] [place] [address]- Care Team Providers Care Manager Logistic Name Role Phone Zoraida Luo MD Primary Care Physician Encounter [facility] Date(s): 10/26/22 - 10/26/[address] [address]- Encounter Diagnosis Chest wall pain(Final) - 10/26/22 Discharge Disposition: A-D/C Home Attending Physician: Cesar Romo MD Admitting Physician: Cesar Romo MD Referring Physician: Not on Staff, Referring MD Allergies, Adverse Reactions, Alerts Substance Reaction Severity Status morphine Active Results Radiology Reports * Exam Date Time Procedure Performing Provider Status 10/26/22 3:59 PM Chest 2 Views Frontal and Lat Nicolette Arzate; Lilli (Verified) Notes: (Chest 2 Views Frontal and Lat) Reason For Exam: Chest Pain;Other: RESULT: Chest 2 Views Frontal and Lat Chest 2 Views Frontal and Lat Hx of Present Illness: Chest pain COMPARISON: None. FINDINGS: LINES AND TUBES: None. LUNGS AND PLEURA: Clear lungs. Normal pulmonary vascularity. No pleural effusion. No pneumothorax. HEART, MEDIASTINUM AND YEFRI: Heart is normal in size. Normal mediastinal and hilar contour. BONES AND SOFT TISSUES: No acute abnormality. IMPRESSION: No acute abnormality. WSN: [id number] Ordering Physician: Anthony Cordova MD Dictated By: Christiano Baker MD Dictated Date/Time: 10/26/22 4:01 pm Reviewed By: Christiano Baker MD Signed By: Christiano Baker MD Signed Date/Time: 10/26/22 4:01 pm Transcribed By: MADYSON Transcribed Date/Time: 10/26/22 4:00 pm Vital Signs Most recent to oldest [Reference Range]: 1 2 3 Oxygen Saturation [94-100 %] 100 % (10/26/22 10:35 PM) 100 % (10/26/22 8:08 PM) 100 % (10/26/22 5:06 PM) Pulse Rate [55-90 bpm] 70 bpm (10/26/22 10:35 PM) 74 bpm (10/26/22 8:08 PM) 73 bpm (10/26/22 5:06 PM) Blood Pressure [90-138/55-84 mm Hg] 117/80mm Hg (10/26/22 10:35 PM) 146/89mm Hg *H* (10/26/22 8:08 PM) 131/73mm Hg (10/26/22 5:06 PM) Respiratory Rate [16-30 br/min] 18 br/min (10/26/22 10:35 PM) 18 br/min (10/26/22 2:26 PM) Temperature [96.8-100.4 DegF] 98.3 DegF (10/26/22 8:08 PM) 98.0 DegF (10/26/22 5:06 PM) 98.8 DegF (10/26/22 2:26 PM) Mode of Delivery (Oxygen) Room air (10/26/22 10:35 PM) Room air (10/26/22 8:08 PM) Room air (10/26/22 5:06 PM) Blood pressure sites Arm, right (10/26/22 10:35 PM) Arm, left (10/26/22 8:08 PM) Arm, right (10/26/22 5:06 PM) Temperature Route Oral (10/26/22 8:08 PM) Oral (10/26/22 5:06 PM) Oral (10/26/22 2:26 PM) EKG study * Event Display: ECG 12-Lead Authored Date: Please click on pdf link to open report * Event Display: ECG 12-Lead Authored Date: Ventricular Rate: 84 BPM Atrial Rate: 84 BPM P-R Interval: 134 ms QRS Duration: 104 ms Q-T Interval: 382 ms QTC Calculation(Bazett): 451 ms P Hartfield: 54 degrees R Hartfield: -38 degrees T Hartfield: 118 degrees Sinus rhythm with Premature supraventricular complexes Left axis deviation Incomplete right bundle branch block Minimal voltage criteria for LVH, may be normal variant ( [place] product ) ST and T wave abnormality, consider lateral ischemia Abnormal ECG No previous ECGs available Confirmed by JOVITA CORREIA ([id number]) on 10/26/2022 2:52:34 PM [place]: JOVITA CORREIA Note * Cesar Romo MD: PERFORM Event Display: Patient Education Leaflets Authored Date: [id number] Chest Pain, Noncardiac ?? [id number] Dolor de pecho no card??aco En la mayor??a de los casos, las personas que llegan a la toby de emergencias con dolor de pecho notienen problemas card??acos. Barb dolor es provocado por otras afecciones. Es importante que el equipo de atenci??n m??dica descarte causas de dolor de pecho con riesgo de muerte, tales odalis las siguientes: ??? Ataque al coraz??n ??? Co??gulo de chapo en los pulmones ??? Colapso pulmonar ??? Ruptura de es??fago ??? Desgarro de la arteria aorta Cuando se hayan descartado estas causas graves, es probable que le realicen m??s pruebas para determinar la causa del dolor de pecho. Pueden ser problemas pulmonares, musculares, ??seos, digestivos, nerviosos o relacionados con la carlin mental. Por ejemplo: ??? Inflamaci??n del recubrimiento de los pulmones (pleures??a) ??? Colapso pulmonar (neumot??rax) ??? Inflamaci??n de los pulmones (pleuritis o neumonitis) ??? L??quido alrededor del pulm??n (derrame pleural) ??? C??ncer de pulm??n (causa poco com??n del dolor de pecho) ??? Inflamaci??n del cart??suellen entre las costillas (costocondritis) ??? Fibromialgia ??? Artritis reumatoide ??? Distensi??n de la pared tor??cica ??? Reflujo ?lcera estomacal ??? Espasmos esof??gicos ??? C??lculos biliares ??? Inflamaci??n de la ves??cula biliar ??? Ataques de p??jian o ansiedad ??? Estr??s emocional El origen del dolor no parece ser un problema card??aco. Sin embargo, a veces los signos de un problema grave tardan m??s tiempo en aparecer. Contin??e prestando atenci??n a las se??ales de advertencia que aparecen a continuaci??n. Cuidados en el hogar Siga estas recomendaciones para cuidarse en holland casa: ??? Descanse sonia el d??a de hoy y no zbigniew ninguna actividad intensa. ??? Cowlic el medicamento recetado seg??n le hayan indicado. ?? Visita de seguimiento Asista a las citas de seguimiento con holland proveedor de atenci??n m??dica seg??n le hayan indicado. ?? Cu??ndo llamar al?? 911 Llame al?? 911 si ocurre algo de lo siguiente: ??? Cambio en el tipo de dolor: se siente diferente,se gagnon vuelto m??s grave, dura m??s o comienza a esparcirse hacia el hombro, el brazo, el anna, lamand??bula o la espalda ??? Falta de aire o dolor creciente al respirar ??? Debilidad, mareos o desmayos ??? Latidos card??acos acelerados ??? Sensaci??n de aplastamiento en el pecho ?? Cu??ndo buscar atenci??n m??dica Llame a holland proveedor de atenci??n m??dica de inmediato ante cualquiera de las siguientes situaciones: ??? Tos con expulsi??n de esputo (flema) de color oscuro o con chapo ??? Fiebre de 100.4?F (38?C) o superior, o seg??n lo que le haya indicado holland proveedor de atenci??n m??dica ??? Dolor, enrojecimiento o hinchaz??n de grzegorz pierna ?? Last Reviewed Date: 2021 ?? [id number] tagga. Todos los derechos reservados. Esta informaci??n no pretende sustituir la atenci??n m??dica profesional. S??lo holland m??dico puede diagnosticar y tratar un problema de carlin. ?? Laboratory * [facility] , CIS S: TRANSCRIBE Christiano Baker MD: VERIFY Event Display: Result: Authored Date: Chest 2 Views Frontal and Lat Hx of Present Illness: Chest pain COMPARISON: None. FINDINGS: LINES AND TUBES: None. LUNGS AND PLEURA: Clear lungs. Normal pulmonary vascularity. No pleural effusion. No pneumothorax. HEART, MEDIASTINUM AND YEFRI: Heart is normal in size. Normal mediastinal and hilar contour. BONES AND SOFT TISSUES: No acute abnormality. IMPRESSION: No acute abnormality. WSN: [id number] Ordering Physician: Anthony Cordova MD Dictated By: Christiano Baker MD Dictated Date/Time: 10/26/22 4:01 pm Reviewed By: Christiano Baker MD Signed By: Christiano Baker MD Signed Date/Time: 10/26/22 4:01 pm Transcribed By: MADYSON Transcribed Date/Time: 10/26/22 4:00 pm Patient Care team information Care Team Personnel Name: Zoraida Luo MD Position: Reference Physician Member Role: PCP Address: Address: [address] [place] [address]- Name: Cesar Romo MD Position: S Resident Member Role: Admitting Physician Address: Address: [address] [place] [address]- Name: Courtney Will RN Position: [facility] RN W/OE and Tasks Member Role: Patient Care Provider
--- OUTSIDE RECORDS SUMMARY | 2023-04-04 19:48 | XMS_ITS | Continuity of Care Document ---
Author Name Unknown Organization [facility] Address [address] [place] [address]- Care Team Providers Care Cabin Supervisor Name Role Phone Zoraida Luo MD Primary Care Physician Encounter [facility] Date(s): 02/11/23 - 03/13/23 [facility] [address] [place] [id number] Attending Physician: Bhakti Elam Admitting Physician: AdmtrBhakti [...] 1Early/Late Reason: Med Not Available 2Result Comment: [id number], 30 NOV 28 3Early/Late Reason: Med Not Available [...] 0 Refills, Maintenance, 03/11/23 12:50:00 EDT, Ointment, [facility], Partial fill upon [...] 0 Refills, Maintenance, 03/11/23 12:54:00 EDT, Injection, [facility], Partial fill upon [...] Health Status Informant DIABETES MELLITUS 1 Confirmed 1975 Active End stage renal disease [...] Nurse Name: Goyo Juan MD Position: [facility] Renal MD Member Role: Lifetime Consulting Physician Address: Address: [address] [place] [address], [facility] [address] Name: Maria Dolores White RN Position: [facility] RN Member Role: Primary Care Nurse Name: Claudine Judge RN Position: [facility] RN Member Role: Primary Care Nurse Name: Misty Butt RN Position: [facility] RN Member Role: Primary Care Nurse Name: Cher Nichols Position: [facility] RN Member Role: Primary Care Nurse Name: Suze Villafuerte NP Position: [facility] Associate Professional Member Role: Primary Care Nurse Address: Address: [address] [place] [id number] Name: Jodi Solorzano RN Position: [facility] RN Member Role: Primary Care Nurse Name: Isabela Caldera Position: [facility] Associate Professional Member Role: Lifetime Consulting Provider Address: Address: [address] [place] [address] [address] [facility] [place], [place] [address] Name: Erum Fuentes Position: S RN Member Role: Primary Care Nurse Name: Neetu Frost Position: [facility] PCO RN Member Role: Primary Care Nurse Name: Donna May RN Position: [facility] RN Member Role: Primary Care Nurse Name: Juana Palafox RN Position: S RN Member Role: Primary Care Nurse Name: Anthony Magdaleno RN Position: [facility] RN Member Role: Primary Care Nurse Name: Hansa Carmona Position: S RN Member Role: Primary Care Nurse Name: Donna Hatfield LPN Position: [facility] RN Member Role: Primary Care Nurse Name: Farzaneh Palacios RN Position: S RN Member Role: Primary Care Nurse Name: Migel Cruz RN Position: [facility] RN Member Role: Primary Care Nurse Name: Radha Nye RN Position: [facility] RN Member Role: Primary Care Nurse Name: Cristina Spence Position: [facility] RN Member Role: Primary Care Nurse Name: Shira Mann RN Position: [facility] RN Member Role: Primary Care Nurse Name: Odin Rodriguez DO Position: [facility] Renal MD Member Role: Lifetime Consulting Physician Address: Address: [address] [place] [address] [address] [facility] [place] [address]- Name: Jimy Gaytan RN Position: [facility] RN Member Role: Primary Care Nurse Name: Frida Blanco RN Position: [facility] RN Member Role: Primary Care Nurse Name: Nik Esposito Position: [facility] Associate Professional Member Role: Lifetime Consulting Provider Address: Address: [address] [place] [address]- Name: Deirdre Lopez RN Position: [facility] RN Member Role: Primary Care Nurse Name: Rosario Alcantara RN Position: [facility] RN Member Role: Primary Care Nurse Name: Robert Braden RN Position: [facility] RN Member Role: Primary Care Nurse Name: Jess Chong RN Position: [facility] RN Member Role: Primary Care Nurse Name: Jacoby Sood MD Position: [facility] Renal MD Member Role: Lifetime Consulting Physician Address: Address: [address] [place] [address] [address] [facility] [place] [address]- Name: Ramonita Bardales RN Position: [facility] RN Member Role: Primary Care Nurse Name: Ramin Bradley RN Position: [facility] RN Member Role: Primary Care Nurse Name: Linda Benson LPN Position: [facility] RN Member Role: Primary Care Nurse Name: Jocelyn Modi RN Position: [facility] RN Member Role: Primary Care Nurse Name: Erma Lira RN Position: [facility] RN Member Role: Primary Care Nurse Name: Sherif Amaya MD Position: [facility] Renal MD Member Role: Lifetime Consulting Physician Address: Address: [address] [place] [address] [facility] [place] [address]- [place] Name: Courtney Freed RN Position: [facility] RN Member Role: Primary Care Nurse Name: Cony Alberts RN Position: [facility] SN RN Member Role: Primary Care Nurse Name: Kaylan Caraballo RN Position: [facility] RN Member Role: Primary Care Nurse Name: Zoraida Luo MD Position: Reference Physician Member Role: PCP Address: Address: [address] [place] [address]- [place] Name: Ledy Franco RN Position: [facility] RN Member Role: Primary Care Nurse Name: Rosina Fernandez RN Position: [facility] RN Member Role: Primary Care Nurse Name: Kaylan Barker RN Position: [facility] Onco RN Member Role: Primary Care Nurse Name: Jeannie Mccarty RN Position: [facility] RN Member Role: Primary Care Nurse Name: Meghann Mccracken RN Position: [facility] Hospital Novelty Printing Machine Operator Member Role: Primary Care Nurse Name: Jean-Paul ESPAÑA [place] Position: [facility] SN RN Member Role: Primary Care Nurse Care Team Related Persons Name: HARSHIL AUTUMN Address: [address] [place] [address] Name: MICHELA BASILIO Address: [address] [place] [address]
--- OUTSIDE RECORDS SUMMARY | 2023-04-04 19:48 | XMS_ITS | Continuity of Care Document ---
Author Name Unknown Organization [facility] Infect[facility] Disease Address [address] [place] [id number]- Care Team Providers Care Boat Builder And Repairer Name Role Phone Valerio SEVERINO, Zoraida Primary Care Physician Encounter [facility] Date(s): 01/22/23 - 03/13/23 [facility] Infectious Disease [address] [place] [id number] Attending Physician: Aby PINEDA, Ute Jara Admitting Physician: Aby PINEDA, Ute Jara Referring Physician: Zoraida Luo MD Allergies, Adverse Reactions, Alerts Substance Reaction [...] 1Early/Late Reason: Med Not Available 2Result Comment: [id number], NOV 28 3Early/Late Reason: Med Not Available [...] 0 Refills, Maintenance, 03/11/23 12:50:00 EDT, Ointment, [facility], Partial fill upon patient request [...] 0 Refills, Maintenance, 03/11/23 12:54:00 EDT, Injection, [facility], Partial fill upon patient request [...] TAKE 1/2 TABLET AT BEDTIME Start Date: 7/24/23 Status: Ordered Problem List Condition Confirmation Course [...] Care Nurse Name: Goyo Juan MD Position: [facility] Renal MD Member Role: Lifetime Consulting Physician Address: Address: [address] [place] [address] Name: Maria Dolores White RN Position: S RN Member Role: Primary Care Nurse Name: Claudine Judge RN Position: S RN Member Role: Primary Care Nurse Name: Misty Butt RN Position: S RN Member Role: Primary Care Nurse Name: Cher Nichols Position: S RN Member Role: Primary Care Nurse Name: Suze Villafuerte NP Position: [facility] Associate Professional Member Role: Primary Care Nurse Address: Address: [address] [place] [address] Name: Jodi Solorzano RN Position: S RN Member Role: Primary Care Nurse Name: Isabela Caldera Position: S Associate Professional Member Role: Lifetime Consulting Provider Address: Address: [address] [place] [address] [facility] [address] Name: Erum Fuentes Position: S RN Member Role: Primary Care Nurse Name: Neetu Frost Position: [facility] PCO RN Member Role: Primary Care Nurse Name: Donna May RN Position: S RN Member Role: Primary Care Nurse Name: Juana Palafox RN Position: S RN Member Role: Primary Care Nurse Name: Anthony Magdaleno RN Position: S RN Member Role: Primary Care Nurse Name: Hansa Carmona Position: S RN Member Role: Primary Care Nurse Name: Donna Hatfield LPN Position: [facility] RN Member Role: Primary Care Nurse Name: Farzaneh Palacios RN Position: [facility] RN Member Role: Primary Care Nurse Name: Migel Cruz RN Position: [facility] RN Member Role: Primary Care Nurse Name: Radha Nye RN Position: [facility] RN Member Role: Primary Care Nurse Name: Cristina Spence Position: [facility] RN Member Role: Primary Care Nurse Name: Shira Mann RN Position: [facility] RN Member Role: Primary Care Nurse Name: Odin Rodriguez DO Position: [facility] Renal MD Member Role: Lifetime Consulting Physician Address: Address: [address] [place] [address] [address] [facility] [place] [address]- Name: Jimy Gaytan RN Position: [facility] RN Member Role: Primary Care Nurse Name: Frida Blanco RN Position: [facility] RN Member Role: Primary Care Nurse Name: Nik Esposito Position: [facility] Associate Professional Member Role: Lifetime Consulting Provider Address: Address: [address] [place] [address] Name: Deirdre Lopez RN Position: [facility] RN Member Role: Primary Care Nurse Name: Rosario Alcantara RN Position: [facility] RN Member Role: Primary Care Nurse Name: Robert Braden RN Position: [facility] RN Member Role: Primary Care Nurse Name: Jess Chong RN Position: [facility] RN Member Role: Primary Care Nurse Name: Jacoby Sood MD Position: [facility] Renal MD Member Role: Lifetime Consulting Physician Address: Address: [address] [place] [address] [address] [facility] [place] [address]- Name: Ramonita Bardales RN Position: [facility] RN Member Role: Primary Care Nurse Name: Ramin Bradley RN Position: [facility] RN Member Role: Primary Care Nurse Name: Linda Benson LPN Position: [facility] RN Member Role: Primary Care Nurse Name: Jocelyn Modi RN Position: [facility] RN Member Role: Primary Care Nurse Name: Erma Lira RN Position: [facility] RN Member Role: Primary Care Nurse Name: Sherif Amaya MD Position: [facility] Renal MD Member Role: Lifetime Consulting Physician Address: Address: [address] [place] [address] [facility] [place] [address]- [place] Name: Courtney Freed RN Position: [facility] RN Member Role: Primary Care Nurse Name: Cony Alberts RN Position: [facility] SN RN Member Role: Primary Care Nurse Name: Kaylan Caraballo RN Position: [facility] RN Member Role: Primary Care Nurse Name: Zoraida Luo MD Position: Reference Physician Member Role: PCP Address: Address: [address] [place] [id number]- Name: Ledy Franco RN Position: [facility] RN Member Role: Primary Care Nurse Name: Rosina Fernandez RN Position: [facility] RN Member Role: Primary Care Nurse Name: Kaylan Barker RN Position: [facility] Onco RN Member Role: Primary Care Nurse Name: Jeannie Mccarty RN Position: [facility] RN Member Role: Primary Care Nurse Name: Meghann Mccracken RN Position: [facility] Provider Member Role: Primary Care Nurse Name: Jean-Paul ESPAÑA Hteekaterry Position: [facility] SN RN Member Role: Primary Care Nurse Care Team Related Persons Name: AUTUMN CHUA Address: [address] [place] [address] Name: MICHELA BASILIO Address: [address] [place] [address]
--- OUTSIDE RECORDS SUMMARY | 2023-04-04 19:48 | XMS_ITS | Continuity of Care Document ---
Author Name Unknown Organization [facility] Address [address] [place] [address]- Care Team Providers Care Instructor Private Name Role Phone Valerio SEVERINO, Zoraida Primary Care Physician Encounter [facility] Date(s): 10/28/22 - 02/25/23 [facility] [address] [place] [id number] Encounter Diagnosis Type II diabetes mellitus with complication(Discharge Diagnosis) - 01/15/23 Attending Physician: Radha Portillo MD Admitting Physician: Radha Portillo MD Referring Physician: Zoraida Luo MD Allergies, Adverse [...] 1Early/Late Reason: Med Not Available 2Result Comment: [id number], 30 VALE 10 3Early/Late Reason: Med Not Available 4Admin Note: [...] tablet,2 Refills, Maintenance, 01/06/22 9:53:00 EDT, Tablet, [facility], Partial fillupon patient request if the [...] drug. Start Date: 12/10/20 Status: Ordered ergocalciferol 40445 iu oral capsule 1 capsule = 50,000 [...] Refills, Maintenance, 03/20/21 13:35:00 EDT, ER Tablet, [facility], Partial fill upon patient request [...] each, 0 Refills, Maintenance, 04/24/22 14:42:00 EDT, [facility], ok to sub for any gallon [...] origin Confirmed Active 1Type II 2campath induction Diagnosis Diagnosis Type Effective Dates Health Status Clinical Service Informant Type II diabetes mellitus with complication Discharge Diagnosis 01/15/23 Social History Social History Type Response Smoking Status Never (less than 100 in lifetime) entered on: 01/10/23 Sex Patient Care team information Care Team Personnel Name: Min ESPAÑA, Yady Cee Position: [facility] RN Member Role: Primary Care Nurse Name: Goyo Juan MD Position: [facility] Renal MD Member Role: Lifetime Consulting Physician Address: Address: [address] [place] [address], [address] Name: Maria Dolores White RN Position: S RN Member Role: Primary Care Nurse Name: Claudine Judge RN Position: [facility] RN Member Role: Primary Care Nurse Name: Misty Butt RN Position: [facility] RN Member Role: Primary Care Nurse Name: Cher Nichols Position: [facility] RN Member Role: Primary Care Nurse Name: Suze Villafuerte NP Position: [facility] Associate Professional Member Role: Primary Care Nurse Address: Address: [address] [place] [id number]- [place] Name: Jodi Solorzano RN Position: [facility] RN Member Role: Primary Care Nurse Name: Erum Fuentes Position: [facility] RN Member Role: Primary Care Nurse Name: Neetu Frost Position: [facility] PCO RN Member Role: Primary Care Nurse Name: Donna May RN Position: [facility] RN Member Role: Primary Care Nurse Name: Juana Palafox RN Position: [facility] RN Member Role: Primary Care Nurse Name: Anthony Magdaleno RN Position: [facility] RN Member Role: Primary Care Nurse Name: Chung Fernandez RN Position: [facility] RN Member Role: Primary Care Nurse Name: Hansa Carmona Position: [facility] RN Member Role: Primary Care Nurse Name: Donna Hatfield LPN Position: [facility] RN Member Role: Primary Care Nurse Name: Farzaneh Palacios RN Position: [facility] RN Member Role: Primary Care Nurse Name: Migel Cruz RN Position: [facility] RN Member Role: Primary Care Nurse Name: Radha Nye RN Position: [facility] RN Member Role: Primary Care Nurse Name: Cristina Spence Position: [facility] RN Member Role: Primary Care Nurse Name: Shira Mann RN Position: [facility] RN Member Role: Primary Care Nurse Name: Odin Rodriguez DO Position: [facility] Renal MD Member Role: Lifetime Consulting Physician Address: Address: [address] [place] [address] [address] [facility] [place] [address]- [place] Name: Jimy Gaytan RN Position: [facility] RN Member Role: Primary Care Nurse Name: Frida Blanco RN Position: [facility] RN Member Role: Primary Care Nurse Name: Nik Esposito Position: [facility] Associate Professional Member Role: Lifetime Consulting Provider Address: Address: [address] [place] [address]- [place] Name: Deirdre Lopez RN Position: [facility] RN Member Role: Primary Care Nurse Name: Rosario Alcantara RN Position: [facility] RN Member Role: Primary Care Nurse Name: Robert Braden RN Position: [facility] RN Member Role: Primary Care Nurse Name: Jess Chong RN Position: [facility] RN Member Role: Primary Care Nurse Name: Jacoby Sood MD Position: [facility] Renal MD Member Role: Lifetime Consulting Physician Address: Address: [address] [place] [address] [facility] [place] [place] [address]- Name: Ramonita Bardales RN Position: [facility] RN Member Role: Primary Care Nurse Name: Linda Benson LPN Position: [facility] RN Member Role: Primary Care Nurse Name: Jocelyn Modi RN Position: [facility] RN Member Role: Primary Care Nurse Name: Erma Lira RN Position: [facility] RN Member Role: Primary Care Nurse Name: Sherif Amaya MD Position: [facility] Renal MD Member Role: Lifetime Consulting Physician Address: Address: [address] [place] [address] [facility] [address] Name: Courtney Freed RN Position: [facility] RN Member Role: Primary Care Nurse Name: Cony Alberts RN Position: [facility] SN RN Member Role: Primary Care Nurse Name: Kaylan Caraballo RN Position: [facility] RN Member Role: Primary Care Nurse Name: Zoraida Luo MD Position: Reference Physician Member Role: PCP Address: Address: [address] [place] [address]- Name: Ledy Franco RN Position: [facility] RN Member Role: Primary Care Nurse Name: Rosina Fernandez RN Position: [facility] RN Member Role: Primary Care Nurse Name: Kaylan Barker RN Position: [facility] Onco RN Member Role: Primary Care Nurse Name: Jeannie Mccarty RN Position: [facility] RN Member Role: Primary Care Nurse Name: Meghann Mccracken RN Position: [facility] Bander Member Role: Primary Care Nurse Name: Franc Jeong RN Position: [facility] SN RN Member Role: Primary Care Nurse Name: Fadia Santacruz Position: [facility] RN Member Role: Primary Care Nurse Care Team Related Persons Name: AUTUMN CHUA Address: home [address] [place] [address] Name: MICHELA BASILIO Address: [place] [address] [place] [address]
--- NOTE | 2023-04-04 19:51 | PC.NURSE ---
Patient complaining of pain in left lower back going down into his left leg. Patient complaining of being cold and was given a warm blanket.
[2023-04-04 20:21] LABS: Appearance Urine Clear; Color Urine Yellow; Glucose Urine UA 250 mg/dL (Negative); Leukocyte Esterase Urine Negative (Negative); Nitrite Urine Negative (Negative); Specific Gravity - Urine 1.015 (1.005-1.025); UMIC TRIGGER UACC YES; Urine Blood Negative (Negative); Urine Ketones Negative (Negative); Urine Protein 30 (1+) mg/dL (Neg-Trace)
[2023-04-04 20:26] LABS: Bacteria Urine None Seen (None Seen); RBC Urine 0-2 /HPF (0-2); Squamous Epithelial Cell Urine 0-2 /HPF (0-2); WBC Urine 0-5 /HPF (0-5)
[2023-04-04] MEDS: oxyCODONE HCl Immed Release 5 MG TABLET PO (20:28)
[2023-04-04 21:07] VITALS: BP 127/49; PULSE 78; RESP 18; TEMP 36.7; O2SAT 98
== END 2023-04-04 21:13 | disposition home or self-care (01) ==
PROVIDERS: Physician Assistant; Emergency Provider Emergency Medicine
DX: M54.42 Lumbago with sciatica, left side (principal); R60.0 Localized edema; R06.02 Shortness of breath; M79.605 Pain in left leg; Z79.899 Other long term (current) drug therapy; Z11.52 Encounter for screening for COVID-19; Z20.822 Contact with and (suspected) exposure to COVID-19
CPT/HCPCS: 36415; 80053; 81001; 82947; 83880; 85025; 87502; 87635; 93971; 99284

== ENCOUNTER 2023-04-07 09:01 | Outpatient (RCR) | payer MEDICAID, SELFPAY | END 2023-05-19 17:00 | disposition home or self-care (01) | LOC: HO.WCC 09:01 | PROVIDERS: Visit Provider Surgery | DX: E11.628 Type 2 diabetes mellitus with other skin complications (principal); T87.81 Dehiscence of amputation stump; E11.40 Type 2 diabetes mellitus with diabetic neuropathy, unspecified; Z79.82 Long term (current) use of aspirin; Z89.511 Acquired absence of right leg below knee; Z79.899 Other long term (current) drug therapy | CPT/HCPCS: 11042; 11045 ==

== ENCOUNTER 2023-05-21 12:34 | Inpatient (IN) | payer MEDICAID, SELFPAY ==
--- NOTE | ~2023-05-21 | CT_ITS ---
EXAMINATION: CT ABDOMEN AND PELVIS WITHOUT CONTRAST CLINICAL INFORMATION: Abdominal pain and diarrhea COMPARISON: Previous CT of the abdomen and pelvis September 2022 and renal ultrasound December 2022 TECHNIQUE: Multidetector volumetric imaging was performed from the superior aspect of the liver through the pubic symphysis. Sagittal and coronal reformatted images were obtained on the technologist's workstation. This CT examination was performed using dose optimization techniques as appropriate, variously including the following: *Automated exposure control *Adjustment of mA and/or kV according to patient size (this includes techniques or standardized protocols for targeted exams where dose is matched to indication/reason for exam; i.e. extremities or head) *Use of iterative reconstruction technique DLP: 519 mGy-cm FINDINGS: LUNG BASES: The visualized lung bases are clear. Trace pericardial effusion. LIVER, GALLBLADDER, AND BILIARY TREE: The liver is normal in size, shape, and attenuation. No focal hepatic lesion or biliary ductal dilatation is present. The gallbladder has been removed. PANCREAS: Unremarkable. SPLEEN: Unremarkable. ADRENAL GLANDS: Unremarkable. KIDNEYS AND URETERS: The [place] kidneys appear atrophic. There is abnormal contour to the lateral midpole of the right kidney. There is a questionable complex cyst versus solid lesion. This is similar to recent CT scans probably corresponds to a complex cyst seen on recent ultrasound December 2022. Transplant kidney in the right lower quadrant. Small 3 mm stone in the lower pole. No hydronephrosis or fluid collection. BLADDER: Unremarkable. GASTROINTESTINAL TRACT: There is mild diverticulosis of the colon. No evidence of diverticulitis. There is question mild wall thickening of the rectum/proctitis. There is also question mild wall thickening of the distal thoracic esophagus and proximal stomach. Fluid-filled stomach probably representing an ileus. The appendix is normal.. ABDOMINAL WALL: No significant hernia is appreciated. LYMPH NODES: Normal. VASCULAR: Severe atherosclerotic disease PELVIC VISCERA: Prostate gland is slightly enlarged 4 x 4.5 cm OSSEOUS STRUCTURES: Unremarkable. CT/CT abdomen pelvis wo IV con IMPRESSION: Diverticulosis of the colon. No evidence of diverticulitis or colitis. Question mild wall thickening of the rectum/proctitis. Question mild wall thickening of the distal thoracic esophagus and proximal stomach. Atrophic appearing [place] kidneys. Contour abnormality to the lateral midpole of the right kidney probably corresponding to complex cyst when compared with recent ultrasound. Small nonobstructing stone in the lower pole of the transplant kidney in the right lower quadrant. Fleischner guidelines were followed.
[2023-05-21 13:32] VITALS: BP 181/111; PULSE 96; RESP 16; TEMP 36.2; O2SAT 98; BMI 31.0
--- NOTE | 2023-05-21 13:37 | ED.GENADULT ---
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 He states he has been on antibiotics this month - I see no Rx or visits for this. He states he feels dizzy and tired. He reportedly syncopized in our triage but we witnessed an event and it was him closing his eyes and he then kind of laughed when he opened them. MD complaint: abdominal pain n/v/d Onset (ago): day(s) (3) Location: abdomen Radiation: non-radiation Severity: mild Quality: aching Pain Consistency: constant Relieving factors: none Exacerbating factors: eating Associated symptoms: malaise, nausea/vomiting and other (diarrhea) Related Data Home Medications Medication Instructions Recorded Confirmed albuterol sulfate 2.5 mg/3 mL 1 amp inhalation TID PRN 08/26/21 12/19/22 (0.083 %) solution for nebulization Respiratory Distress albuterol sulfate 90 mcg/actuation 2 puff PO Q4H PRN wheezing 08/26/21 12/19/22 aerosol inhaler (ProAir HFA) amlodipine 5 mg tablet 5 mg PO DAILY 08/26/21 12/19/22 aspirin 81 mg tablet,delayed 81 mg PO DAILY 08/26/21 12/19/22 release atorvastatin 10 mg tablet 10 mg PO DAILY 08/26/21 12/19/22 calcitriol 0.5 mcg capsule 0.5 mcg PO DAILY 08/26/21 12/19/22 cholecalciferol (vitamin D3) 1,250 1 cap PO SA@1000 08/26/21 12/19/22 mcg (50,000 unit) capsule duloxetine 20 mg capsule,delayed 20 mg PO DAILY 08/26/21 12/19/22 release insulin glargine 100 unit/mL (3 48 unit subcut BEDTIME 08/26/21 12/19/22 mL) subcutaneous pen (Lantus Solostar U-100 Insulin) insulin lispro 100 unit/mL 5 unit subcut TIDWM 08/26/21 12/19/22 subcutaneous pen (Humalog KwikPen (U-100) Insulin) tacrolimus 1 mg capsule, 2 mg PO BID 08/26/21 12/19/22 immediate-release tramadol 50 mg tablet 50 mg PO Q6H PRN moderate pain 08/26/21 12/19/22 famotidine 40 mg tablet 40 mg PO BEDTIME 12/11/21 12/19/22 gabapentin 100 mg capsule 100 mg PO BEDTIME 12/11/21 12/19/22 hydroxyzine HCl 10 mg tablet 10 mg PO BID 09/24/22 12/19/22 trazodone 50 mg tablet 25 mg PO BEDTIME 09/24/22 12/19/22 acetaminophen 500 mg tablet 500 mg PO Q8H PRN Pain 10/20/22 12/19/22 esomeprazole magnesium 40 mg 40 mg PO DAILY@0630 10/20/22 12/19/22 capsule,delayed release lidocaine 5 % topical patch 1 patch topical DAILY 11/02/22 12/19/22 ferrous sulfate 325 mg (65 mg 325 mg PO QAM 12/19/22 12/19/22 iron) tablet (FeroSul) Previous Rx's Medication Instructions Recorded metoprolol succinate 25 mg 25 mg PO DAILY #90 tabs 09/24/22 tablet,extended release 24 hr (Toprol XL) fluconazole 100 mg tablet 100 mg PO DAILY #6 tabs 12/24/22 sodium bicarbonate 650 mg tablet 650 mg PO TID #90 tabs 12/24/22 oxycodone 5 mg tablet 5 mg PO Q8H PRN pain #7 tabs 01/07/23 lidocaine 5 % topical patch 1 patch topical DAILY #30 ea 04/04/23 Allergies Allergy/AdvReac Type Severity Reaction Status Date / Time hydromorphone [From DILAUDID] Allergy Mild ITCHINESS Verified 01/07/23 12:56 diphenhydramine Allergy Unknown UNK Verified 01/07/23 12:56 [From BENADRYL] regadenoson [From Lexiscan] AdvReac Mild Itching Verified 01/07/23 12:56 Review of Systems Review of Systems: Constitutional : No Weight loss, No Fever, No Chills ENT/Mouth : No sore throat, No Rhinorrhea Eyes: No Swelling, No Redness Cardiovascular : No Chest Pain, No SOB, NoEdema Respiratory : No Cough, No Sputum, No Wheezing Gastrointestinal : Positive Nausea, Positive Vomiting, positive Diarrhea, positive abdominal Pain, No Hematochezia, No Melena Genitourinary : No Dysuria, No Urinary Frequency, No Hematuria, No Urgency Musculoskeletal : No joint pain, No Myalgias, No Joint Swelling Skin : No Skin Lesions, No rash Neuro : No Weakness, No Numbness, pos Dizziness, No Headache Psych : No Anxiety/Panic, No Depression Heme/Lymph: No Bruising, No Lymphadenopathy Endocrine : No Polyuria, No Polydipsia All other systems reviewed and are negative. [facility] Past Medical History Attestation statement: The following information was validated with the patient. Source: old records reviewed Medical History Diabetic infection of right foot Amputation of fifth toe of right foot History of osteomyelitis Chronic hyperglycemia Diabetes HTN (hypertension) Surgical History Renal transplant recipient H/O arteriovenostomy for renal dialysis Family History Family History Other Diabetes No family history of coronary artery disease Social History Social History Household Members: None Housing: Apartment Do you presently have visiting nurse or other home services: No Alcohol intake: never Comment: S3 Patient Tobacco Use Status: Never used Tobacco e-Cigarette/Vaping Use: Never Used Advance Directives: Yes Advance Directives on File: Yes Advance Directives Date on File: 01/21/22 service: No Current occupational status: disabled Physical Exam ED Vital Signs: Vital Signs - 24 hr 05/21/23 13:32 05/21/23 15:38 Temperature 97.1 F 98.4 F Pulse Rate 96 94 Respiratory Rate 16 16 Blood Pressure 181/111 H 149/93 H Pulse Oximetry 98 97 Oxygen Delivery Method Room Air Room Air BMI result Body Mass Index 31.0 Appearance: Alert. Oriented X3. No acute distress. Went to bathroom on his own using WC Eyes: Pupils equal, round and reactive to light. ENT: Pharynx mild dry MM Neck: Normal inspection. Neck supple. CVS: Normal heart rate and rhythm. Pulses normal. Respiratory: No respiratory distress. Breath sounds normal. Abdomen: Soft and mild upper abdominal ttp no rebound or guarding Skin: Skin warm and dry. Normal skin color. Normal skin turgor. Extremities: No lower extremity edema. No calf ttp Neuro: Oriented X 3. No motor deficit. No sensory deficit. Course Course Course Narrative: This is an RME: Additional HPI, ROS, PE not included below will be deferred to primary provider. Patient is a 57-year-old male who presents to the emergency department vomiting for 3 days. She syncopized in the triage chair. Required level tactile stimuli to arouse. POC glucose 323. diffuse ABD paIN. dENIES cp/ sob Plan: labs, EKG, spoke with charge master coordinator, pending placement in back Reevaluation(s) Reevaluation #1: H/H, Cr and HCO3 at baseline no AG doubt DKA, pH not acidotic Reevaluation #2: no WBC count, unsure about proctitis no diarrhea here for several hours pain is all upper abdomen - but he is immunosuppressed. will admit for n/v and transplant status unable to take medications Medications Administered Discontinued Medications Generic Name Dose Route Start Last Admin Trade Name Freq PRN Reason Stop Dose Admin Sodium Chloride 1,000 mls @ 999 mls/hr 05/21/23 16:00 05/21/23 16:01 Ns IV 05/21/23 17:00 999 mls/hr .Q1H1M EUNICE Administration Morphine Sulfate 4 mg 05/21/23 15:46 05/21/23 16:01 Morphine Sulfate 4 Mg/Ml Cartridge IVPUSH 05/21/23 15:47 4 mg ONCE ONE Administration Protocol Ondansetron HCl 4 mg 05/21/23 15:46 05/21/23 16:01 Ondansetron Hcl 4 Mg/2 Ml Vial IVPUSH 05/21/23 15:47 4 mg ONCE ONE Administration Medical Decision Making Medical Decision Making MDM Narrative: 57 yo male with hx of osteomyelitis, DM, hyperglycemia, kidney transplant on immunosuppressants tacrolimus and prednisone, prior R AKA here with c/o n/v/d abdominal pain for 3 days at this time will need basic labs, IVF, CT scan for colitis, diverticulitis. I do not suspect he had syncopal event after witnessed event in ED. Differential Diagnosis Differential Diagnoses: The differential diagnosis associated with the presentation includes viral syndrome colitis dehydration Admission/Observation Consideration of admission/observation: Escalation of care including admission/observation considered admit for further management Consult Healthcare Provider Management of the patient was discussed with: Hospitalist (will admit) Lab Data MDM Lab Attestation statement: I reviewed the patient's lab results. 05/21/23 15:34 05/21/23 15:34 Labs: Lab Results 05/21/23 05/21/23 05/21/23 Range/Units 14:26 15:34 15:54 WBC 10.3 (4.8-10.8) X10*3/uL RBC 5.08 D (4.60-5.80) X10*6/uL Hgb 13.8 L (14.0-18.0) g/dl Hct 40.1 L (42.0-52.0) % MCV 78.9 L (80.0-98.0) fL MCH 27.2 (27.0-33.0) pg MCHC 34.4 (31.0-36.0) g/dl RDW 13.2 (11.0-16.0) % Plt Count 308 (160-400) X10*3/uL MPV 9.9 (9.4-12.4) fL Immature Gran % (Auto) 0.2 (0.0-0.4) % Neut % (Auto) 68.4 (45-73) % Lymph % (Auto) 19.6 L (20-40) % Jerome % (Auto) 10.2 (2-11) % Eos % (Auto) 1.0 (0-4) % Baso % (Auto) 0.6 (0-2) % Lymph # (Auto) 2.0 (1.2-4.9) X10*3/uL Jerome # (Auto) 1.1 (0.1-1.2) X10*3/uL Eos # (Auto) 0.1 (0.0-0.4) X10*3/uL Baso # (Auto) 0.1 (0.0-0.2) X10*3/uL Abs Immat Gran (auto) 0.02 (0.00-0.03) X10*3/uL Absolute Neuts (auto) 7.1 (2.0-8.3) x10*3/uL Absolute Nucleated RBC 0.000 (0.0-0.012) X10*3/uL Nucleated RBC % (auto) 0.0 (0.0-0.2) /100WBC VBG pH 7.52 H (7.32-7.43) VBG pCO2 27 mmHg VBG pO2 74 mmHg VBG HCO3 22 (22-26) mmol/L VBG O2 Saturation 96.0 % VBG Base Excess 1.5 mmol/L Sodium 134 L (135-145) mmol/L Potassium 4.6 (3.3-5.1) mmol/L Chloride 105 (96-108) mmol/L Carbon Dioxide 15 L (22-29) mmol/L Anion Gap 19 (12-20) BUN 24 H (9-16) mg/dL Creatinine 2.75 H (0.5-1.4) mg/dL Estim Creat Clear Calc 27.6 Estimated GFR 24 POC Glucose 323 H (60-115) mg/dL Random Glucose 334 H (60-115) mg/dL Calcium 10.2 D (8.4-10.2) mg/dL Total Bilirubin 0.8 (0.0-1.0) mg/dL AST 16 (5-37) U/L ALT 14 (0-40) U/L Alkaline Phosphatase 136 H (39-117) U/L Troponin I High Sens 22.2 (<3.5-35.0) ng/L Total Protein 7.5 (6.5-8.0) g/dL Albumin 3.7 (3.5-5.0) g/dL Lipase 15 (8-78) U/L Beta-Hydroxybutyrate 1.25 H (0.02-0.27) mmol/L Independent Interpretation I performed an independent interpretation of an: EKG and CT Scan (no acute infection) Interpretation: Rate: 103 Rhythm: sinus tachycardia [place]: ;eft Normal P waves. Normal HARJIT. Normal QRS complex. ST T wave : no DOUG, inverted t wave I and aVL qTC: normal prior studies: no acute ischemia The study has been interpreted contemporaneously by me. . Radiology Impression Discussion of test interpretation with radiology: I have reviewed the radiologist's reading. External Record Review External record reviewed: Inpatient record Discharge Plan Discharge Clinical Impression: Esophagitis Abdominal pain Qualifiers: Abdominal location: generalized Qualified Code(s): R10.84 - Generalized abdominal pain Vomiting Qualifiers: Vomiting type: unspecified Nausea presence: with nausea Qualified Code(s): R11.2 - Nausea with vomiting, unspecified Patient Disposition: Admitted As Inpatient Prescriptions: No Action albuterol sulfate 2.5 mg /3 mL (0.083 %) solution for nebulization 1 amp inhalation TID PRN (Reason: Respiratory Distress) atorvastatin 10 mg tablet 10 mg PO DAILY amlodipine 5 mg tablet 5 mg PO DAILY aspirin 81 mg tablet,delayed release (DR/EC) 81 mg PO DAILY tramadol 50 mg tablet 50 mg PO Q6H PRN (Reason: moderate pain) calcitriol 0.5 mcg capsule 0.5 mcg PO DAILY albuterol sulfate [ProAir HFA] 90 mcg/actuation HFA aerosol inhaler 2 puff PO Q4H PRN (Reason: wheezing) tacrolimus 1 mg capsule 2 mg PO BID Patient Comments: PATIENTS DOSE WAS RECENTLY DECREASED TO 2 IN THE AM INSTEAD OF 3 insulin lispro [Humalog KwikPen Insulin] 100 unit/mL insulin pen 5 unit subcut TIDWM duloxetine 20 mg capsule,delayed release(DR/EC) 20 mg PO DAILY cholecalciferol (vitamin D3) 1,250 mcg (50,000 unit) capsule 1 cap PO SA@1000 insulin glargine [Lantus Solostar U-100 Insulin] 100 unit/mL (3 mL) insulin pen 48 unit subcut BEDTIME famotidine 40 mg Tablet 40 mg PO BEDTIME gabapentin 100 mg Capsule 100 mg PO BEDTIME ferrous sulfate [FeroSul] 325 mg (65 mg iron) tablet 325 mg PO QAM fluconazole 100 mg Tablet 100 mg PO DAILY Qty: 6 0RF sodium bicarbonate 650 mg Tablet 650 mg PO TID Qty: 90 0RF oxycodone 5 mg tablet 5 mg PO Q8H PRN (Reason: pain) Qty: 7 0RF Rx Instructions: Partial Fill upon patient request. lidocaine 5 % adhesive patch,medicated 1 patch topical DAILY Qty: 30 0RF Rx Instructions: leave on most painful area for up to 12 hrs acetaminophen 500 mg Tablet 500 mg PO Q8H PRN (Reason: Pain) esomeprazole magnesium 40 mg Capsule,Delayed Release(Dr/Ec) 40 mg PO DAILY@0630 lidocaine 5 % adhesive patch,medicated 1 patch topical DAILY hydroxyzine HCl 10 mg tablet 10 mg PO BID trazodone 50 mg tablet 25 mg PO BEDTIME metoprolol succinate [Toprol XL] 25 mg tablet extended release 24 hr 25 mg PO DAILY Qty: 90 3RF
[2023-05-21 14:31] LABS: Glucose, Whole Blood 323 mg/dL (60-115)
--- NOTE | 2023-05-21 14:45 | ECG_ITS ---
Test Reason : DIZZINESS Blood Pressure : / mmHG Vent. Rate : 103 BPM Atrial Rate : 103 BPM P-R Int : 124 ms QRS Dur : 098 ms QT Int : 380 ms P-R-T Axes : 062 -57 079 degrees QTc Int : 497 ms Sinus tachycardia Left anterior fascicular block Abnormal ECG When compared with ECG of 02-NOV-2022 18:22, Premature supraventricular complexes are no longer Present QT has lengthened Referred By: Felipa Jacob Electronically Signed By:ILDEFONSO LEIJA MD
--- OUTSIDE RECORDS SUMMARY | 2023-05-21 15:26 | XMS_ITS | Continuity of Care Document ---
Author Name Unknown Organization [facility] Address [address] [place] [id number]- Care Team Providers Care Superintendent Of Generation Name Role Phone Valerio SEVERINO, Zoraida Primary Care Physician Encounter [facility] Date(s): 04/29/23 - 05/06/23 [facility] [address] [place] [address]- Attending Physician: Johana Caro MD Admitting Physician: Johana Caro MD Referring Physician: Zoraida Luo MD Allergies, [...] 1Early/Late Reason: Med Not Available 2Result Comment: [id number], NOV 28 3Early/Late Reason: Med Not Available [...] 0 Refills, Maintenance, 03/22/23 14:49:00 EDT, Ointment, [facility], Partial fill [...] 03/22/23 14:49:00 EDT, Route to Pharmacy Electronically, [facility], Partial fill upon patien... Start [...] 0 Refills, Maintenance, 03/11/23 12:54:00 EDT, Injection, [facility], Partial fill [...] Confirmed Active Diabetic foot infection Confirmed Active Obese class I Confirmed Active Secondary hyperparathyroidism of renal origin Confirmed Active 1Type II 2campath induction Vital Signs Most recent to oldest [Reference Range]: 1 Height 161 cm (04/29/23 1:09 PM) Weight 79.38 kg (04/29/23 1:09 PM) Oxygen Saturation [94-100 %] 100 % (04/29/23 1:09 PM) Pulse Rate [55-90 bpm] 54 bpm *L* (04/29/23 1:09 PM) Body Mass Index [18.5-24.99 kg/m2] 30.62 kg/m2 *>HHI* (04/29/23 1:09 PM) Blood Pressure [90-138/55-84 mm Hg] 86/5 8mm Hg *L* (04/29/23 1:09 PM) Blood pressure sites Arm, right (04/29/23 1:09 PM) Weight Obtained Via Patient/family state d (04/29/23 1:09 PM) Social History Social History Type Response Smoking Status Never (less than 100 in lifetime) entered on: 03/05/23 Sex Note * Felipa Kim: PERFORM, SIGN, VERIFY Event Display: Patient Education/Instruction Authored Date: [id number] [facility] [address] Clinical Summary Name VERONA RICHARDSON Age 57 Years 1965 PCP Valerio SEVERINO, Zoraida PCP Visit Date 04/29/2023 12:13:00 Additional Instructions: Scheduled Appointments?? Future Appointments ?*[facility],??[place],??[address] ?Phone:??--?Fax:??-- ?Appt. Date:??05/17/2023?10:00 AM ?Scheduled Provider:??Zulma PINEDA, Ashley Follow-Up Instructions ?? With: Address: When: Gordo SEVERINO, Johana Avalos In 2 weeks Comments: wound check Diagnosis Medications: Please continue your medications until treatment is completed or stopped by your provider. Discuss any questions related to medications with your provider. Medications to Continue with No Changes These [...] TAKE ONE CAPSULE EVERY MORNING. Next Dose: Collagenase Topical (collagenase topical 250 u/gm ointment) apply topically to R BKA BID. Refills: 0. Next Dose: Ferrous Sulfate (ferrous sulfate 325 mg oral enteric coated tablet) 325 Milligram Oral Daily. Next Dose: Gabapentin (gabapentin 100 mg oral capsule) 1 capsule Oral 3 times a day for 30 Days. TAKE ONE CAPSULE BY MOUTH AT BEDTIME. Refills: 0. Next Dose: HydrOXYzine (hydrOXYzine hydrochloride 10 mg [...] Orders ?No future orders Vital Signs Height 161 cm Weight 79.38 kg BMI 30.62 kg/m2 Blood Pressure 86 mm Hg/58 mm Hg Temperature Pulse Rate 54 bpm Respiratory Rate 02 Sat Mode of Delivery 100 %/ You can now view a summary of your hospital visit from the comfort of your home through a free online portal called [employer]. [employer] is a website that allows you to securely view your medical information including discharge summary, medications and follow-up visits. ??You can alsosend a secure electronic message to your doctor???s office to request appointments, renew medications or just ask a question. You can enroll at [email or web address] or register during your next office visit. [...] primary care provider, you may find a [facility] provider by calling [facility] [facility] at [phone]. [facility], in keeping with [facility] guidance, no longer requires face masks [...] Care Nurse Name: Goyo Juan MD Position: [facility] Renal MD Member Role: Lifetime Consulting Physician Address: Address: [address] [place] [address] [address] [place] [address]- Name: Maria Dolores White RN Position: S RN Member Role: Primary Care Nurse Name: Claudine Judge RN Position: S RN Member Role: Primary Care Nurse Name: Misty Butt RN Position: S RN Member Role: Primary Care Nurse Name: Cher Nichols Position: S RN Member Role: Primary Care Nurse Name: Suze Villafuerte NP Position: S Associate Professional Member Role: Primary Care Nurse Address: Address: [address] [place] [address]- Name: Jodi Solorzano RN Position: S RN Member Role: Primary Care Nurse Name: Isabela Caldera Position: S Associate Professional Member Role: Lifetime Consulting Provider Address: Address: [address] [place] [address] [address] [facility] [place] [address]- [place] Name: Erum Fuentes Position: S RN Member Role: Primary Care Nurse Name: Neetu Frost Position: [facility] PCO RN Member Role: Primary Care Nurse Name: Juana Palafox RN Position: S RN Member Role: Primary Care Nurse Name: Anthony Magdaleno RN Position: [facility] RN Member Role: Primary Care Nurse Name: Hasna Carmona Position: [facility] RN Member Role: Primary Care Nurse Name: Donna Hatfield LPN Position: [facility] RN Member Role: Primary Care Nurse Name: Farzaneh Palacios RN Position: [facility] RN Member Role: Primary Care Nurse Name: Migel Cruz RN Position: [facility] RN Member Role: Primary Care Nurse Name: Radha Nye RN Position: [facility] RN Member Role: Primary Care Nurse Name: Cristina Spence Position: [facility] RN Member Role: Primary Care Nurse Name: Shira Mann RN Position: [facility] RN Member Role: Primary Care Nurse Name: Odin Rodriguez DO Position: [facility] Renal MD Member Role: Lifetime Consulting Physician Address: Address: [address] [place], [place] [address] [address] Name: Jimy Gaytan RN Position: [facility] RN Member Role: Primary Care Nurse Name: Frida Blanco RN Position: [facility] RN Member Role: Primary Care Nurse Name: Nik Esposito Position: [facility] Associate Professional Member Role: Lifetime Consulting Provider Address: Address: [address] [place] [address] Name: Deirdre Lopez RN Position: [facility] RN Member Role: Primary Care Nurse Name: Rosario Alcantara RN Position: [facility] RN Member Role: Primary Care Nurse Name: Robert Braden RN Position: [facility] RN Member Role: Primary Care Nurse Name: Jess Chong RN Position: [facility] RN Member Role: Primary Care Nurse Name: Jacoby Sood MD Position: [facility] Renal MD Member Role: Lifetime Consulting Physician Address: Address: [address] [place] [address] [address] [facility] [place] [address]- Name: Ramonita Bardales RN Position: [facility] RN Member Role: Primary Care Nurse Name: Ramin Bradley RN Position: [facility] RN Member Role: Primary Care Nurse Name: Jocelyn oMdi RN Position: [facility] RN Member Role: Primary Care Nurse Name: Sherif Amaya MD Position: [facility] Renal MD Member Role: Lifetime Consulting Physician Address: Address: [address] [place] [address] [facility] [address] Name: Cony Alberts RN Position: [facility] SN RN Member Role: Primary Care Nurse Name: Kaylan Caraballo RN Position: [facility] RN Member Role: Primary Care Nurse Name: Zoraida Luo MD Position: Reference Physician Member Role: PCP Address: Address: [address] [place] [address]- Name: Ledy Franco RN Position: [facility] RN Member Role: Primary Care Nurse Name: Rosina Fernandez RN Position: [facility] RN Member Role: Primary Care Nurse Name: Kaylan Barker RN Position: [facility] Onco RN Member Role: Primary Care Nurse Name: Jeannie Mccarty RN Position: [facility] RN Member Role: Primary Care Nurse Name: Meghann Mccracken RN Position: [facility] Securities Sales Associate Member Role: Primary Care Nurse Name: Franc Jeong RN Position: [facility] SN RN Member Role: Primary Care Nurse Care Team Related Persons Name: BALBIR CHUA Address: [address] [place], [place] Name: LIVE CHUA Address: home [address] [place] Name: WALKER CHUA Name: MICHELA BASILIO Address: home [address] [place], [place]
--- OUTSIDE RECORDS SUMMARY | 2023-05-21 15:26 | XMS_ITS | Continuity of Care Document ---
Author Name Unknown Organization [facility] Address [address] [place] [address]- Care Team Providers Care Funeral Arrangement Director Name Role Phone Valerio SEVERINO, Zoraida Primary Care Physician Encounter [facility] [place] Date(s): 03/02/23 - 04/15/23 [facility] [address] [place], [place] [address] Attending Physician: Sophie Lainez NP Admitting Physician: Sophie Lainez NP Referring Physician: Zoraida Luo MD Allergies, Adverse [...] 1Early/Late Reason: Med Not Available 2Result Comment: [id number], NOV 28 3Early/Late Reason: Med Not Available [...] 0 Refills, Maintenance, 03/22/23 14:49:00 EDT, Ointment, [facility], Partial fill upon patient request [...] 03/22/23 14:49:00 EDT, Route to Pharmacy Electronically, [facility], Partial fill upon patien... Start [...] 0 Refills, Maintenance, 03/11/23 12:54:00 EDT, Injection, [facility], Partial fill upon patient request [...] Care Nurse Name: Goyo Juan MD Position: [facility] Renal MD Member Role: Lifetime Consulting Physician Address: Address: [address] [place] [address], [address] [place] [address] Name: Maria Dolores White RN Position: [facility] RN Member Role: Primary Care Nurse Name: Claudine Judge RN Position: [facility] RN Member Role: Primary Care Nurse Name: Misty Butt RN Position: [facility] RN Member Role: Primary Care Nurse Name: Cher Nichols Position: S RN Member Role: Primary Care Nurse Name: Suze Villafuerte NP Position: [facility] Associate Professional Member Role: Primary Care Nurse Address: Address: [address] [place] [id number] Name: Jodi Solorzano RN Position: [facility] RN Member Role: Primary Care Nurse Name: Isabela Caldera Position: [facility] Associate Professional Member Role: Lifetime Consulting Provider Address: Address: [address] [place] [address] [address] [facility] [place] [address]- Name: Erum Fuentes Position: S RN Member Role: Primary Care Nurse Name: Neetu Frost Position: [facility] PCO RN Member Role: Primary Care Nurse Name: Juana Palafox RN Position: S RN Member Role: Primary Care Nurse Name: Anthony Magdaleno RN Position: [facility] RN Member Role: Primary Care Nurse Name: Hansa Carmona Position: [facility] RN Member Role: Primary Care Nurse Name: Donna Hatfield LPN Position: [facility] RN Member Role: Primary Care Nurse Name: Farzaneh Palacios RN Position: [facility] RN Member Role: Primary Care Nurse Name: Migel Cruz RN Position: [facility] RN Member Role: Primary Care Nurse Name: Radha Nye RN Position: [facility] RN Member Role: Primary Care Nurse Name: Cristina Spence Position: [facility] RN Member Role: Primary Care Nurse Name: Shira Mann RN Position: [facility] RN Member Role: Primary Care Nurse Name: Odin Rodriguez DO Position: [facility] Renal MD Member Role: Lifetime Consulting Physician Address: Address: [address] [place], [place] [address] [address] Name: Jimy Gaytan RN Position: [facility] RN Member Role: Primary Care Nurse Name: Frida Blanco RN Position: [facility] RN Member Role: Primary Care Nurse Name: Nik Esposito Position: [facility] Associate Professional Member Role: Lifetime Consulting Provider Address: Address: [address] [place] [address] Name: Deirdre Lopez RN Position: [facility] RN Member Role: Primary Care Nurse Name: Rosario Alcantara RN Position: [facility] RN Member Role: Primary Care Nurse Name: Robert Braden RN Position: [facility] RN Member Role: Primary Care Nurse Name: Jess Chong RN Position: [facility] RN Member Role: Primary Care Nurse Name: Jacoby Sood MD Position: [facility] Renal MD Member Role: Lifetime Consulting Physician Address: Address: [address] [place] [address] [address] [facility] [place] [address]- Name: Ramonita Bardales RN Position: [facility] RN Member Role: Primary Care Nurse Name: Ramin Bradley RN Position: [facility] RN Member Role: Primary Care Nurse Name: Linda Benson LPN Position: [facility] RN Member Role: Primary Care Nurse Name: Jocelyn Modi RN Position: [facility] RN Member Role: Primary Care Nurse Name: Erma Lira RN Position: [facility] RN Member Role: Primary Care Nurse Name: Sherif Amaya MD Position: [facility] Renal MD Member Role: Lifetime Consulting Physician Address: Address: [address] [place] [address] [facility] [place] [address]- [place] Name: Cony Alberts RN Position: [facility] SN RN Member Role: Primary Care Nurse Name: Kaylan Caraballo RN Position: [facility] RN Member Role: Primary Care Nurse Name: Zoraida Luo MD Position: Reference Physician Member Role: PCP Address: Address: [address] [place] [address]- Name: Ledy Franco RN Position: [facility] RN Member Role: Primary Care Nurse Name: Rosina Fernandez RN Position: [facility] RN Member Role: Primary Care Nurse Name: Kaylan Barker RN Position: [facility] Onco RN Member Role: Primary Care Nurse Name: Jeannie Mccarty RN Position: [facility] RN Member Role: Primary Care Nurse Name: Meghann Mccracken RN Position: [facility] Conventional Underwriter Member Role: Primary Care Nurse Name: Franc Jeong RN Position: [facility] SN RN Member Role: Primary Care Nurse Care Team Related Persons Name: LIVE CHUA Address: [address] [place] [address] Name: MICHELA BASILIO Address: [address] [place] [address]
--- OUTSIDE RECORDS SUMMARY | 2023-05-21 15:26 | XMS_ITS | Continuity of Care Document ---
Author Name Unknown Organization [facility] Address [address] [place] [address]- Care Team Providers Care Rn Admission Name Role Phone Valerio SEVERINO, Zoraida Primary Care Physician Encounter [facility] Date(s): 03/23/23 - 04/22/23 [facility] [address] [place], [place] [address] Allergies, Adverse Reactions, Alerts Substance Reaction Severity [...] 1Early/Late Reason: Med Not Available 2Result Comment: [id number], NOV 28 3Early/Late Reason: Med Not Available [...] 0 Refills, Maintenance, 03/22/23 14:49:00 EDT, Ointment, [facility], Partial fill upon patient request if [...] 03/22/23 14:49:00 EDT, Route to Pharmacy Electronically, [facility], Partial fill upon patien... Start Date: [...] 0 Refills, Maintenance, 03/11/23 12:54:00 EDT, Injection, [facility], Partial fill upon patient request if [...] Care Nurse Name: Goyo Juan MD Position: [facility] Renal MD Member Role: Lifetime Consulting Physician Address: Address: [address] [place] [address] [address] [place] [address]- Name: Maria Dolores White RN Position: S RN Member Role: Primary Care Nurse Name: Claudine Judge RN Position: [facility] RN Member Role: Primary Care Nurse Name: Misty Butt RN Position: S RN Member Role: Primary Care Nurse Name: Cher Nichols Position: S RN Member Role: Primary Care Nurse Name: Suze Villafuerte NP Position: [facility] Associate Professional Member Role: Primary Care Nurse Address: Address: [address] [place] [address]- Name: Jodi Solorzano RN Position: S RN Member Role: Primary Care Nurse Name: Isabela Caldera Position: [facility] Associate Professional Member Role: Lifetime Consulting Provider Address: Address: [address] [place] [address] [address] [facility] [place] [address]- [place] Name: Erum Fuentes Position: S RN Member Role: Primary Care Nurse Name: Neetu Frost Position: [facility] PCO RN Member Role: Primary Care Nurse Name: Juana Palafox RN Position: S RN Member Role: Primary Care Nurse Name: Anthony Magdaleno RN Position: S RN Member Role: Primary Care Nurse Name: Hansa Carmona Position: S RN Member Role: Primary Care Nurse Name: Donna Hatfield LPN Position: [facility] RN Member Role: Primary Care Nurse Name: Farzaneh Palacios RN Position: [facility] RN Member Role: Primary Care Nurse Name: Migel Cruz RN Position: [facility] RN Member Role: Primary Care Nurse Name: Radha Nye RN Position: [facility] RN Member Role: Primary Care Nurse Name: Cristina Spence Position: [facility] RN Member Role: Primary Care Nurse Name: Shira Mann RN Position: [facility] RN Member Role: Primary Care Nurse Name: Odin Rodriguez DO Position: [facility] Renal MD Member Role: Lifetime Consulting Physician Address: Address: [address] [place] [address] [address] [facility] [place] [address]- Name: Jimy Gaytan RN Position: [facility] RN Member Role: Primary Care Nurse Name: Frida Blanco RN Position: [facility] RN Member Role: Primary Care Nurse Name: Nik Esposito Position: [facility] Associate Professional Member Role: Lifetime Consulting Provider Address: Address: [address] [place] [address] Name: Deirdre Lopez RN Position: [facility] RN Member Role: Primary Care Nurse Name: Rosario Alcantara RN Position: [facility] RN Member Role: Primary Care Nurse Name: Robert Braden RN Position: [facility] RN Member Role: Primary Care Nurse Name: Jess Chong RN Position: [facility] RN Member Role: Primary Care Nurse Name: Jacoby Sood MD Position: [facility] Renal MD Member Role: Lifetime Consulting Physician Address: Address: [address] [place] [address] [address] [facility] [place] [address]- Name: Ramonita Bardales RN Position: [facility] RN Member Role: Primary Care Nurse Name: Ramin Bradley RN Position: [facility] RN Member Role: Primary Care Nurse Name: Linda Benson LPN Position: [facility] RN Member Role: Primary Care Nurse Name: Jocelyn Modi RN Position: [facility] RN Member Role: Primary Care Nurse Name: Erma Lira RN Position: [facility] RN Member Role: Primary Care Nurse Name: Sherif Amaya MD Position: [facility] Renal MD Member Role: Lifetime Consulting Physician Address: Address: [address] [place] [address] [facility] [place] [id number] [place] Name: Aristeo ESPAÑA, Cony Leyva Position: [facility] SN RN Member Role: Primary Care Nurse Name: Kaylan Caraballo RN Position: [facility] RN Member Role: Primary Care Nurse Name: Zoraida Luo MD Position: Reference Physician Member Role: PCP Address: Address: [address] [place] [id number]- Name: Ledy Franco RN Position: [facility] RN Member Role: Primary Care Nurse Name: Rosina Fernandez RN Position: [facility] RN Member Role: Primary Care Nurse Name: Mj ESPAÑA, Kaylan Cline Position: [facility] Onco RN Member Role: Primary Care Nurse Name: Jeannie Mccarty RN Position: [facility] RN Member Role: Primary Care Nurse Name: Meghann Mccracken RN Position: [facility] Hospital Digital Hardware Design Engineer Member Role: Primary Care Nurse Name: Jean-Paul ESPAÑA [place] Position: [facility] SN RN Member Role: Primary Care Nurse Care Team Related Persons Name: CHUA, LIVE Address: [address] [place] [address] Name: MICHELA BASILIO Address: [address] [place] [address]
--- OUTSIDE RECORDS SUMMARY | 2023-05-21 15:27 | XMS_ITS | Continuity of Care Document ---
Author Name Unknown Organization [facility] Address [address] [place] [address]- Care Team Providers Care Hospitality Recruiter Name Role Phone Zoraida Luo MD Primary Care Physician Encounter [facility] [place] Date(s): 03/25/23 - 04/24/23 [facility] [address] [place] [address]- Attending Physician: Bhakti Elam Admitting Physician: Bhakti [...] 1Early/Late Reason: Med Not Available 2Result Comment: [id number], NOV 28 3Early/Late Reason: Med Not Available [...] 0 Refills, Maintenance, 03/22/23 14:49:00 EDT, Ointment, [facility], Partial fill upon patient request [...] 03/22/23 14:49:00 EDT, Route to Pharmacy Electronically, [facility], Partial fill upon patien... Start [...] 0 Refills, Maintenance, 03/11/23 12:54:00 EDT, Injection, [facility], Partial fill upon patient request [...] Care Nurse Name: Goyo Juan MD Position: [facility] Renal MD Member Role: Lifetime Consulting Physician Address: Address: [address] [place] [address] [address] [place] [address]- Name: Maria Dolores White RN Position: [facility] RN Member Role: Primary Care Nurse Name: Claudine Judge RN Position: [facility] RN Member Role: Primary Care Nurse Name: Misty Butt RN Position: [facility] RN Member Role: Primary Care Nurse Name: Cher Nichols Position: S RN Member Role: Primary Care Nurse Name: Suze Villafuerte NP Position: [facility] Associate Professional Member Role: Primary Care Nurse Address: Address: [address] [place] [address]- Name: Jodi Solorzano RN Position: [facility] RN Member Role: Primary Care Nurse Name: Isabela Caldera Position: [facility] Associate Professional Member Role: Lifetime Consulting Provider Address: Address: [address] [place] [address] [address] [facility] [place] [address]- [place] Name: Erum Fuentes Position: S RN Member Role: Primary Care Nurse Name: Neetu Frost Position: [facility] PCO RN Member Role: Primary Care Nurse Name: Juana Palafox RN Position: [facility] RN Member Role: Primary Care Nurse Name: Anthony Magdaleno RN Position: S RN Member Role: Primary Care Nurse Name: Hansa Carmona Position: [facility] RN Member Role: Primary Care Nurse Name: Donna Hatfield LPN Position: [facility] RN Member Role: Primary Care Nurse Name: Farzaneh Palacios RN Position: [facility] RN Member Role: Primary Care Nurse Name: Migel Cruz RN Position: [facility] RN Member Role: Primary Care Nurse Name: Radha Nye RN Position: [facility] RN Member Role: Primary Care Nurse Name: Cristina Spence Position: [facility] RN Member Role: Primary Care Nurse Name: Shira Mann RN Position: [facility] RN Member Role: Primary Care Nurse Name: Odin Rodriguez DO Position: [facility] Renal MD Member Role: Lifetime Consulting Physician Address: Address: [address] [place], [place] [address] [place] [address]- Name: Jimy Gaytan RN Position: [facility] RN Member Role: Primary Care Nurse Name: Frida Blanco RN Position: [facility] RN Member Role: Primary Care Nurse Name: Nik Esposito Position: [facility] Associate Professional Member Role: Lifetime Consulting Provider Address: Address: [address] [place] [address] Name: Deirdre Lopez RN Position: [facility] RN Member Role: Primary Care Nurse Name: Rosario Alcantara RN Position: [facility] RN Member Role: Primary Care Nurse Name: Robert Braden RN Position: [facility] RN Member Role: Primary Care Nurse Name: Jess Chong RN Position: [facility] RN Member Role: Primary Care Nurse Name: Jacoby Sood MD Position: [facility] Renal MD Member Role: Lifetime Consulting Physician Address: Address: [address] [place] [address] [address] [facility] [place] [address]- Name: Ramonita Bardales RN Position: [facility] RN Member Role: Primary Care Nurse Name: Ramin Bradley RN Position: [facility] RN Member Role: Primary Care Nurse Name: Linda Benson LPN Position: [facility] RN Member Role: Primary Care Nurse Name: Jocelyn Modi RN Position: [facility] RN Member Role: Primary Care Nurse Name: Erma Lira RN Position: [facility] RN Member Role: Primary Care Nurse Name: Sherif Amaya MD Position: [facility] Renal MD Member Role: Lifetime Consulting Physician Address: Address: [address] [place] [address] [facility] [place] [address]- Name: Aristeo ESPAÑA, Cony Leyva Position: [facility] SN RN Member Role: Primary Care Nurse Name: Kaylan Caraballo RN Position: [facility] RN Member Role: Primary Care Nurse Name: Zoraida Luo MD Position: Reference Physician Member Role: PCP Address: Address: [address] [place] [id number] Name: Ledy Franco RN Position: [facility] RN Member Role: Primary Care Nurse Name: Rosina Fernandez RN Position: [facility] RN Member Role: Primary Care Nurse Name: Mj ESPAÑA, Kaylan Cline Position: [facility] Onco RN Member Role: Primary Care Nurse Name: Jeannie Mccarty RN Position: [facility] RN Member Role: Primary Care Nurse Name: Meghann Mccracken RN Position: [facility] Repacker Member Role: Primary Care Nurse Name: Jean-Paul ESPAÑA [place] Position: [facility] SN RN Member Role: Primary Care Nurse Care Team Related Persons Name: LIVE CHUA Address: [address] [place] [address] Name: MICHELA BASILIO Address: [address] [place] [address]
--- OUTSIDE RECORDS SUMMARY | 2023-05-21 15:27 | XMS_ITS | Continuity of Care Document ---
Author Name Unknown Organization [facility] Address [address] [place] [address]- Care Team Providers Care Labor Commissioner Name Role Phone Zoraida Luo MD Primary Care Physician Encounter [facility] [id number] Date(s): 12/25/22 - 04/24/23 [facility] [address] [place] [address]- Attending Physician: Jaquan Duque MD Admitting Physician: Jaquan Duque MD Referring Physician: Zoraida Luo MD Allergies, [...] 1Early/Late Reason: Med Not Available 2Result Comment: [id number], 30 NOV 28 3Early/Late Reason: Med Not [...] 0 Refills, Maintenance, 03/22/23 14:49:00 EDT, Ointment, [facility], Partial fill upon patient [...] 03/22/23 14:49:00 EDT, Route to Pharmacy Electronically, [facility], Partial fill upon patien... [...] 0 Refills, Maintenance, 03/11/23 12:54:00 EDT, Injection, [facility], Partial fill upon patient [...] Care Nurse Name: Yady Copeland RN Position: [facility] RN Member Role: Primary Care Nurse Name: Goyo Juan MD Position: [facility] Renal MD Member Role: Lifetime Consulting Physician Address: Address: [address] [place] [address] [address] [place] [address]- Name: Maria Dolores White RN Position: [facility] RN Member Role: Primary Care Nurse Name: Claudine Judge RN Position: [facility] RN Member Role: Primary Care Nurse Name: Misty Butt RN Position: [facility] RN Member Role: Primary Care Nurse Name: Cher Nichols Position: S RN Member Role: Primary Care Nurse Name: Suze Villafuerte NP Position: [facility] Associate Professional Member Role: Primary Care Nurse Address: Address: [address] [place] [address]- Name: Jodi Solorzano RN Position: [facility] RN Member Role: Primary Care Nurse Name: Isabela Caldera Position: [facility] Associate Professional Member Role: Lifetime Consulting Provider Address: Address: [address] [place] [address] [address] [facility] [place] [address]- [place] Name: Erum Fuentes Position: S RN Member Role: Primary Care Nurse Name: Neetu Frost Position: [facility] PCO RN Member Role: Primary Care Nurse Name: Juana Palafox RN Position: S RN Member Role: Primary Care Nurse Name: Anthony Magdaleno RN Position: S RN Member Role: Primary Care Nurse Name: Hansa Carmona Position: [facility] RN Member Role: Primary Care Nurse Name: Donna Hatfield LPN Position: [facility] RN Member Role: Primary Care Nurse Name: Farzaneh Palacios RN Position: [facility] RN Member Role: Primary Care Nurse Name: Migel Cruz RN Position: [facility] RN Member Role: Primary Care Nurse Name: Radha Nye RN Position: [facility] RN Member Role: Primary Care Nurse Name: Cristina Spence Position: [facility] RN Member Role: Primary Care Nurse Name: Shira Mann RN Position: [facility] RN Member Role: Primary Care Nurse Name: Odin Rodriguez DO Position: [facility] Renal MD Member Role: Lifetime Consulting Physician Address: Address: [address] [place], [place] [address] [address] Name: Jimy Gaytan RN Position: [facility] RN Member Role: Primary Care Nurse Name: Frida Blanco RN Position: [facility] RN Member Role: Primary Care Nurse Name: Nik Esposito Position: [facility] Associate Professional Member Role: Lifetime Consulting Provider Address: Address: [address] [place] [address] Name: Deirdre Lopez RN Position: [facility] RN Member Role: Primary Care Nurse Name: Rosario Alcantara RN Position: [facility] RN Member Role: Primary Care Nurse Name: Robert Braden RN Position: [facility] RN Member Role: Primary Care Nurse Name: Jess Chong RN Position: [facility] RN Member Role: Primary Care Nurse Name: Jacoby Sood MD Position: [facility] Renal MD Member Role: Lifetime Consulting Physician Address: Address: [address] [place] [address] [address] [facility] [place], [address] Name: Ramonita Bardales RN Position: [facility] RN Member Role: Primary Care Nurse Name: Ramin Bradley RN Position: [facility] RN Member Role: Primary Care Nurse Name: Linda Benson LPN Position: [facility] RN Member Role: Primary Care Nurse Name: Jocelyn Modi RN Position: [facility] RN Member Role: Primary Care Nurse Name: Erma Lira RN Position: [facility] RN Member Role: Primary Care Nurse Name: Sherif Amaya MD Position: [facility] Renal MD Member Role: Lifetime Consulting Physician Address: Address: [address] [place] [address] [facility] [place] [address]- Name: Cony Alberts RN Position: [facility] SN RN Member Role: Primary Care Nurse Name: Kaylan Caraballo RN Position: [facility] RN Member Role: Primary Care Nurse Name: Zoraida Luo MD Position: Reference Physician Member Role: PCP Address: Address: [address] [place] [address] Name: Ledy Franco RN Position: [facility] RN Member Role: Primary Care Nurse Name: Rosina Fernandez RN Position: [facility] RN Member Role: Primary Care Nurse Name: Kaylan Barker RN Position: [facility] Onco RN Member Role: Primary Care Nurse Name: Jeannie Mccarty RN Position: [facility] RN Member Role: Primary Care Nurse Name: Meghann Mccracken RN Position: [facility] Insulation And Flooring Assembler Member Role: Primary Care Nurse Name: Franc Jeong RN Position: [facility] SN RN Member Role: Primary Care Nurse Care Team Related Persons Name: LIVE CHUA Address: [address] [place] [address] Name: MICHELA BASILIO Address: [address] [place] [address]
--- OUTSIDE RECORDS SUMMARY | 2023-05-21 15:27 | XMS_ITS | Continuity of Care Document ---
Author Name Unknown Organization [facility] Address [address] [place] [address]- Care Team Providers Care Reconciliation Analyst Name Role Phone Zoraida Luo MD Primary Care Physician Encounter [facility] Date(s): 04/08/23 - 05/08/23 [facility] [address] [place] [address]- Attending Physician: Bhakti Elam Admitting Physician: Bhakti [...] 1Early/Late Reason: Med Not Available 2Result Comment: [id number], NOV 28 3Early/Late Reason: Med Not Available [...] Care Nurse Name: Yady Copeland RN Position: [facility] RN Member Role: Primary Care Nurse Name: Goyo Juan MD Position: [facility] Renal MD Member Role: Lifetime Consulting Physician Address: Address: [address] [place] [address] [address] [place] [address]- Name: Maria Dolores White RN Position: [facility] RN Member Role: Primary Care Nurse Name: Claudine Judge RN Position: [facility] RN Member Role: Primary Care Nurse Name: Misty Butt RN Position: S RN Member Role: Primary Care Nurse Name: Cher Nichols Position: [facility] RN Member Role: Primary Care Nurse Name: Suze Villafuerte NP Position: [facility] Associate Professional Member Role: Primary Care Nurse Address: Address: [address] [place] [address]- Name: Jodi Solorzano RN Position: [facility] RN Member Role: Primary Care Nurse Name: Isabela Caldera Position: S Associate Professional Member Role: Lifetime Consulting Provider Address: Address: [address] [place] [address] [address] [facility] [place] [address]- [place] Name: Erum Fuentes Position: S RN Member Role: Primary Care Nurse Name: Neetu Frost Position: [facility] PCO RN Member Role: Primary Care Nurse Name: Juana Palafox RN Position: S RN Member Role: Primary Care Nurse Name: Anthony Magdaleno RN Position: S RN Member Role: Primary Care Nurse Name: Hansa Carmona Position: [facility] RN Member Role: Primary Care Nurse Name: Donna Hatfield LPN Position: [facility] RN Member Role: Primary Care Nurse Name: Farzaneh Palacios RN Position: [facility] RN Member Role: Primary Care Nurse Name: Migel Cruz RN Position: [facility] RN Member Role: Primary Care Nurse Name: Radha Nye RN Position: [facility] RN Member Role: Primary Care Nurse Name: Cristina Spence Position: [facility] RN Member Role: Primary Care Nurse Name: Shira Mann RN Position: [facility] RN Member Role: Primary Care Nurse Name: Odin Rodriguez DO Position: [facility] Renal MD Member Role: Lifetime Consulting Physician Address: Address: [address] [place], [place] [address] [address] Name: Jimy Gaytan RN Position: [facility] RN Member Role: Primary Care Nurse Name: Frida Blanco RN Position: [facility] RN Member Role: Primary Care Nurse Name: Nik Esposito Position: [facility] Associate Professional Member Role: Lifetime Consulting Provider Address: Address: [address] [place] [address] Name: Deirdre Lopez RN Position: [facility] RN Member Role: Primary Care Nurse Name: Rosario Alcantara RN Position: [facility] RN Member Role: Primary Care Nurse Name: Robert Braden RN Position: [facility] RN Member Role: Primary Care Nurse Name: Jess Cohng RN Position: [facility] RN Member Role: Primary Care Nurse Name: Jacoby Sood MD Position: [facility] Renal MD Member Role: Lifetime Consulting Physician Address: Address: [address] [place] [address] [address] [facility] [place] [address]- Name: Ramonita Bardales RN Position: [facility] RN Member Role: Primary Care Nurse Name: Ramin Bradley RN Position: [facility] RN Member Role: Primary Care Nurse Name: Jocelyn Modi RN Position: [facility] RN Member Role: Primary Care Nurse Name: Sherif Amaya MD Position: [facility] Renal MD Member Role: Lifetime Consulting Physician Address: Address: [address] [place] [address] [facility] [address] Name: Cony Alberts RN Position: [facility] SN RN Member Role: Primary Care Nurse Name: Kaylan Caraballo RN Position: [facility] RN Member Role: Primary Care Nurse Name: Zoraida Luo MD Position: Reference Physician Member Role: PCP Address: Address: [address] [place] [address] [address] Name: Ledy Franco RN Position: [facility] RN Member Role: Primary Care Nurse Name: Rosina Fernandez RN Position: [facility] RN Member Role: Primary Care Nurse Name: Kaylan Barker RN Position: [facility] Onco RN Member Role: Primary Care Nurse Name: Jeannie Mccarty RN Position: [facility] RN Member Role: Primary Care Nurse Name: Meghann Mccracken RN Position: [facility] Member Role: Primary Care Nurse Name: Franc Jeong RN Position: [facility] SN RN Member Role: Primary Care Nurse Care Team Related Persons Name: CHUA BALBIR Address: [address] [place] [address] Name: LIVE CHUA Address: [address] [place] Name: WALKER CHUA Name: MICHELA BASILIO Address: [address] [place] [address]
--- OUTSIDE RECORDS SUMMARY | 2023-05-21 15:28 | XMS_ITS | Continuity of Care Document ---
Author Name Unknown Organization [facility] Address [address] [place] [address]- Care Team Providers Care Mower Sharpener Name Role Phone Valerio SEVERINO, Zoraida Primary Care Physician Encounter [facility] Date(s): 04/09/23 - 04/16/23 [facility] [address] [place], [place] [address] Attending Physician: Johana Caro MD Admitting Physician: [...] 1Early/Late Reason: Med Not Available 2Result Comment: [id number], NOV 28 3Early/Late Reason: Med Not Available [...] 0 Refills, Maintenance, 03/22/23 14:49:00 EDT, Ointment, [facility], Partial fill upon patient [...] 03/22/23 14:49:00 EDT, Route to Pharmacy Electronically, [facility], Partial fill upon patien... [...] 0 Refills, Maintenance, 03/11/23 12:54:00 EDT, Injection, [facility], Partial fill upon patient [...] oldest [Reference Range]: 1 Height 160 cm (04/09/23 9:05 AM) Weight 77.5 kg (04/09/23 9:05 AM) Pulse Rate [55-90 bpm] 68 bpm (04/09/23 9:05 AM) Body Mass Index [18.5-24.99 kg/m2] 30.27 kg/m2 *>HHI* (04/09/23 9:05 AM) Blood Pressure [90-138/55-84 mm Hg] 130/ 80mm Hg (04/09/23 9:05 AM) Blood pressure sites Arm, right (04/09/23 9:05 AM) Weight Obtained Via Patient/family state d (04/09/23 9:05 AM) Social History Social History Type Response Smoking Status Never (less than 100 in lifetime) entered on: 03/05/23 Sex Note * Allegra Thao: PERFORM, SIGN, VERIFY Event Display: Patient Education/Instruction Authored Date: [id number] [employer] *[facility] [address] Clinical Summary Name VERONA RICHARDSON Age 57 Years 1965 PCP Valerio SEVERINO, Zoraida PCP Visit Date 04/09/2023 08:00:00 Additional Instructions: Scheduled Appointments?? Future Appointments ?[facility]??Inpt??OR ?Phone:??--?Fax:??-- ?Appt. Date:??04/23/2023?12:15 PM ?Scheduled Provider:??Johana Caro MD ?*[facility],??[place],??[address] ?Phone:??--?Fax:??-- ?Appt. Date:??04/29/2023?1:00 PM ?Scheduled Provider:??Johana Caro MD Follow-Up Instructions ?? With: Address: When: Johana Caro MD Within 2 to 3 weeks Comments: OR for [facility] RLE Diagnosis Medications: Please continue your medications until [...] orders Vital Signs Height 160 cm Weight 77.5 kg BMI 30.27 kg/m2 Blood Pressure 130 mm Hg/80 mm Hg Temperature Pulse Rate 68 bpm Respiratory Rate 02 Sat Mode of Delivery / You can now view a summary of your hospital visit from the comfort of your home through a free online portal called [email or web address]. [employer] is a website that allows you to securely view your medical information including discharge summary, medications and follow-up visits. ??You can alsosend a secure electronic message to your doctor???s office to request appointments, renew medications or just ask a question. You can enroll at [email or web address] or register during your next office [...] primary care provider, you may find a [facility] provider by calling [facility] Link at [phone]. [facility], in keeping with [facility] guidance, no longer requires face masks for [...] Team Personnel Name: Radha Borjas RN Position: [facility] RN Member Role: Primary Care Nurse Name: Yady Copeland RN Position: [facility] RN Member Role: Primary Care Nurse Name: Goyo Juan MD Position: [facility] Renal MD Member Role: Lifetime Consulting Physician Address: Address: [address] [place] [address]- Name: Maria Dolores White RN Position: [facility] RN Member Role: Primary Care Nurse Name: Claudine Judge RN Position: S RN Member Role: Primary Care Nurse Name: Misty Butt RN Position: S RN Member Role: Primary Care Nurse Name: Cher Nichols Position: S RN Member Role: Primary Care Nurse Name: Suze Villafuerte NP Position: [facility] Associate Professional Member Role: Primary Care Nurse Address: Address: [address] [place] [address]- Name: Jodi Solorzano RN Position: [facility] RN Member Role: Primary Care Nurse Name: Isabela Caldera Position: S Associate Professional Member Role: Lifetime Consulting Provider Address: Address: [address] [facility] [place] [address]- Name: Erum Fuentes Position: [facility] RN Member Role: Primary Care Nurse Name: Neetu Frost Position: [facility] PCO RN Member Role: Primary Care Nurse Name: Juana Palafox RN Position: [facility] RN Member Role: Primary Care Nurse Name: Anthony Magdaleno RN Position: [facility] RN Member Role: Primary Care Nurse Name: Hansa Carmona Position: [facility] RN Member Role: Primary Care Nurse Name: Donna Hatfield LPN Position: [facility] RN Member Role: Primary Care Nurse Name: Farzaneh Palacios RN Position: [facility] RN Member Role: Primary Care Nurse Name: Migel Cruz RN Position: [facility] RN Member Role: Primary Care Nurse Name: Radha Nye RN Position: [facility] RN Member Role: Primary Care Nurse Name: Cristina Spence Position: [facility] RN Member Role: Primary Care Nurse Name: Shira Mann RN Position: [facility] RN Member Role: Primary Care Nurse Name: Odin Rodriguez DO Position: [facility] Renal MD Member Role: Lifetime Consulting Physician Address: Address: [address] [place], [place] [address] [place] [address]- Name: Jimy Gaytan RN Position: [facility] RN Member Role: Primary Care Nurse Name: Frida Blanco RN Position: [facility] RN Member Role: Primary Care Nurse Name: Nik Esposito Position: [facility] Associate Professional Member Role: Lifetime Consulting Provider Address: Address: [address] [place] [address]- Name: Deirdre Lopez RN Position: [facility] RN Member Role: Primary Care Nurse Name: Rosario Alcantara RN Position: [facility] RN Member Role: Primary Care Nurse Name: Robert Braden RN Position: [facility] RN Member Role: Primary Care Nurse Name: Jess Chong RN Position: [facility] RN Member Role: Primary Care Nurse Name: Jacoby Sood MD Position: [facility] Renal MD Member Role: Lifetime Consulting Physician Address: Address: [address] [place] [address] [address] [facility] [place] [address]- Name: Ramonita Bardales RN Position: [facility] RN Member Role: Primary Care Nurse Name: Ramin Bradley RN Position: [facility] RN Member Role: Primary Care Nurse Name: Linda Benson LPN Position: [facility] RN Member Role: Primary Care Nurse Name: Jocelyn Modi RN Position: [facility] RN Member Role: Primary Care Nurse Name: Erma Lira RN Position: [facility] RN Member Role: Primary Care Nurse Name: Sherif Amaya MD Position: [facility] Renal MD Member Role: Lifetime Consulting Physician Address: Address: [address] [place] [address] [facility] [place], [place] [address] Name: Cony Alberts RN Position: [facility] SN RN Member Role: Primary Care Nurse Name: Kaylan Caraballo RN Position: [facility] RN Member Role: Primary Care Nurse Name: Zoraida Luo MD Position: Reference Physician Member Role: PCP Address: Address: [address] [place] [address]- Name: Ledy Franco RN Position: [facility] RN Member Role: Primary Care Nurse Name: Rosina Fernandez RN Position: [facility] RN Member Role: Primary Care Nurse Name: Kaylan Barker RN Position: [facility] Onco RN Member Role: Primary Care Nurse Name: Jeannie Mccarty RN Position: [facility] RN Member Role: Primary Care Nurse Name: Meghann Mccracken RN Position: [facility] Hospital Incubator Machine Operator Member Role: Primary Care Nurse Name: Jean-Paul RN [place] Position: [facility] SN RN Member Role: Primary Care Nurse Care Team Related Persons Name: LIVE CHUA Address: home [address] [place] Name: MICHELA BASILIO Address: home [address] [place]
--- OUTSIDE RECORDS SUMMARY | 2023-05-21 15:29 | XMS_ITS | Continuity of Care Document ---
Author Name Unknown Organization [facility] Address [address] [place] [address]- Care Team Providers Care Physician Coder Name Role Phone Valerio SEVERINO, Zoraida Primary Care Physician Encounter [facility] Date(s): 03/18/23 - 04/17/23 [facility] [address] [place], [place] [address] Allergies, Adverse Reactions, Alerts Substance [...] 1Early/Late Reason: Med Not Available 2Result Comment: [id number], NOV 28 3Early/Late Reason: Med Not Available [...] 0 Refills, Maintenance, 03/22/23 14:49:00 EDT, Ointment, [facility], Partial fill upon patient [...] 03/22/23 14:49:00 EDT, Route to Pharmacy Electronically, [facility], Partial fill upon patien... Start [...] 0 Refills, Maintenance, 03/11/23 12:54:00 EDT, Injection, [facility], Partial fill upon patient [...] Care Nurse Name: Goyo Juan MD Position: [facility] Renal MD Member Role: Lifetime Consulting Physician Address: Address: [address] [place] [address] Name: Maria Dolores White RN Position: [facility] RN Member Role: Primary Care Nurse Name: Claudine Judge RN Position: [facility] RN Member Role: Primary Care Nurse Name: Misty Butt RN Position: [facility] RN Member Role: Primary Care Nurse Name: Cher Nichols Position: S RN Member Role: Primary Care Nurse Name: Suze Villafuerte NP Position: [facility] Associate Professional Member Role: Primary Care Nurse Address: Address: [address] [place] [address] Name: Jodi Solorzano RN Position: S RN Member Role: Primary Care Nurse Name: Isabela Caldera Position: [facility] Associate Professional Member Role: Lifetime Consulting Provider Address: Address: [address] [place] [address] [facility] [place], [place] [address] Name: Erum Fuentes Position: S RN Member Role: Primary Care Nurse Name: Neetu Frost Position: [facility] PCO RN Member Role: Primary Care Nurse Name: Juana Palafox RN Position: S RN Member Role: Primary Care Nurse Name: Anthony Magdaleno RN Position: S RN Member Role: Primary Care Nurse Name: Hansa Carmona Position: S RN Member Role: Primary Care Nurse Name: Donna Hatfield LPN Position: [facility] RN Member Role: Primary Care Nurse Name: Farzaneh Palacios RN Position: [facility] RN Member Role: Primary Care Nurse Name: Migel Cruz RN Position: [facility] RN Member Role: Primary Care Nurse Name: Radha Nye RN Position: [facility] RN Member Role: Primary Care Nurse Name: Cristina Spence Position: [facility] RN Member Role: Primary Care Nurse Name: Shira Mann RN Position: [facility] RN Member Role: Primary Care Nurse Name: Odin Rodriguez DO Position: [facility] Renal MD Member Role: Lifetime Consulting Physician Address: Address: [address] [place], [place] [address] [place] [address]- Name: Jimy Gaytan RN Position: [facility] RN Member Role: Primary Care Nurse Name: Frida Blanco RN Position: [facility] RN Member Role: Primary Care Nurse Name: Nik Esposito Position: [facility] Associate Professional Member Role: Lifetime Consulting Provider Address: Address: [address] [place] [address] Name: Deirdre Lopez RN Position: [facility] RN Member Role: Primary Care Nurse Name: Rosario Alcantara RN Position: [facility] RN Member Role: Primary Care Nurse Name: Robert Braden RN Position: [facility] RN Member Role: Primary Care Nurse Name: Jess Chong RN Position: [facility] RN Member Role: Primary Care Nurse Name: Jacoby Sood MD Position: [facility] Renal MD Member Role: Lifetime Consulting Physician Address: Address: [address] [place] [address] [address] [facility] [place] [address]- Name: Ramonita Bardales RN Position: [facility] RN Member Role: Primary Care Nurse Name: Ramin Bradley RN Position: [facility] RN Member Role: Primary Care Nurse Name: Linda Benson LPN Position: [facility] RN Member Role: Primary Care Nurse Name: Jocelyn Modi RN Position: [facility] RN Member Role: Primary Care Nurse Name: Erma Lira RN Position: [facility] RN Member Role: Primary Care Nurse Name: Sherif Amaya MD Position: [facility] Renal MD Member Role: Lifetime Consulting Physician Address: Address: [address] [place] [address] [facility] [place] [address]- Name: Aristeo ESPAÑA, Cony Leyva Position: [facility] SN RN Member Role: Primary Care Nurse Name: Kaylan Caraballo RN Position: [facility] RN Member Role: Primary Care Nurse Name: Zoraida Luo MD Position: Reference Physician Member Role: PCP Address: Address: [address] [place] [address]- Name: Ledy Franco RN Position: [facility] RN Member Role: Primary Care Nurse Name: Rosina Fernandez RN Position: [facility] RN Member Role: Primary Care Nurse Name: Kaylan Barker RN Position: [facility] Onco RN Member Role: Primary Care Nurse Name: Jeannie Mccarty RN Position: [facility] RN Member Role: Primary Care Nurse Name: Meghann Mccracken RN Position: [facility] Deck Molder Member Role: Primary Care Nurse Name: Jean-Paul ESPAÑA [place] Position: [facility] SN RN Member Role: Primary Care Nurse Care Team Related Persons Name: CHUA, LIVE Address: [address] [place] [address] Name: MICHELA BASILIO Address: [address] [place] [address]
--- OUTSIDE RECORDS SUMMARY | 2023-05-21 15:29 | XMS_ITS | Continuity of Care Document ---
Author Name Unknown Organization [facility] Address [address] [place] [address]- Care Team Providers Care Road Crossing Guard Name Role Phone Zoraida Luo MD Primary Care Physician Encounter [facility] [place] Date(s): 03/18/23 - 05/19/23 [facility] [address] [place] [id number] Attending Physician: Sophie Lainez NP Admitting [...] 1Early/Late Reason: Med Not Available 2Result Comment: [id number], NOV 28 3Early/Late Reason: Med Not Available [...] Maintenance, 03/22/23 14:49:00 EDT, Ointment, [facility], Partial fill upon patient request if [...] EDT, Route to Pharmacy Electronically, [facility], Partial fill upon patien... Start Date: [...] Maintenance, 03/11/23 12:54:00 EDT, Injection, [facility], Partial fill upon patient request if [...] Team Personnel Name: Radha Borjas RN Position: [facility] RN Member Role: Primary Care Nurse Name: Yady Copeland RN Position: S RN Member Role: Primary Care Nurse Name: Drake SEVERINO, Goyo Fabian Position: [facility] Renal MD Member Role: Lifetime Consulting Physician Address: Address: [address] [place] [address] [id number] [place] [address]- Name: Maria Dolores White RN Position: [facility] RN Member Role: Primary Care Nurse Name: Claudine Judge RN Position: [facility] RN Member Role: Primary Care Nurse Name: Misty Butt RN Position: [facility] RN Member Role: Primary Care Nurse Name: Cher Nichols Position: S RN Member Role: Primary Care Nurse Name: Suze Villafuerte NP Position: [facility] Associate Professional Member Role: Primary Care Nurse Address: Address: [address] [place] [address]- Name: Jodi Solorzano RN Position: [facility] RN Member Role: Primary Care Nurse Name: Isabela Caldera Position: [facility] Associate Professional Member Role: Lifetime Consulting Provider Address: Address: [address] [place] [address] [address] [facility] [place] [address]- [place] Name: Erum Fuentes Position: S RN Member Role: Primary Care Nurse Name: Neetu Frost Position: [facility] PCO RN Member Role: Primary Care Nurse Name: Juana Palafox RN Position: [facility] RN Member Role: Primary Care Nurse Name: Anthony Magdaleno RN Position: [facility] RN Member Role: Primary Care Nurse Name: Hansa Carmona Position: [facility] RN Member Role: Primary Care Nurse Name: Donna Hatfield LPN Position: [facility] RN Member Role: Primary Care Nurse Name: Farzaneh Palacios RN Position: [facility] RN Member Role: Primary Care Nurse Name: Migel Cruz RN Position: [facility] RN Member Role: Primary Care Nurse Name: Radha Nye RN Position: [facility] RN Member Role: Primary Care Nurse Name: Cristina Spence Position: [facility] RN Member Role: Primary Care Nurse Name: Shira Mann RN Position: [facility] RN Member Role: Primary Care Nurse Name: Odin Rodriguez DO Position: [facility] Renal MD Member Role: Lifetime Consulting Physician Address: Address: [address] [place], [place] [address] [place] [address]- Name: Jimy Gaytan RN Position: [facility] RN Member Role: Primary Care Nurse Name: Frida Blanco RN Position: [facility] RN Member Role: Primary Care Nurse Name: Nik Esposito Position: [facility] Associate Professional Member Role: Lifetime Consulting Provider Address: Address: [address] [place] [address]- Name: Deirdre Lopez RN Position: [facility] RN Member Role: Primary Care Nurse Name: Rosario Alcantara RN Position: [facility] RN Member Role: Primary Care Nurse Name: Robert Braden RN Position: [facility] RN Member Role: Primary Care Nurse Name: Jess Chong RN Position: [facility] RN Member Role: Primary Care Nurse Name: Jacoby Sood MD Position: [facility] Renal MD Member Role: Lifetime Consulting Physician Address: Address: [address] [place] [address] [address] [facility] [place] [address]- Name: Ramonita Bardales RN Position: [facility] RN Member Role: Primary Care Nurse Name: Ramin Bradley RN Position: [facility] RN Member Role: Primary Care Nurse Name: Jocelyn Modi RN Position: [facility] RN Member Role: Primary Care Nurse Name: Sherif Amaya MD Position: [facility] Renal MD Member Role: Lifetime Consulting Physician Address: Address: [address] [place] [address] [facility] [place] [address]- Name: Aristeo ESPAÑA, Cony Leyva Position: [facility] SN RN Member Role: Primary Care Nurse Name: Kaylan Caraballo RN Position: [facility] RN Member Role: Primary Care Nurse Name: Zoraida Luo MD Position: Reference Physician Member Role: PCP Address: Address: [address] [place] [address]- Name: Ledy Franco RN Position: [facility] RN Member Role: Primary Care Nurse Name: Rosina Fernandez RN Position: [facility] RN Member Role: Primary Care Nurse Name: Kaylan Barker RN Position: [facility] Onco RN Member Role: Primary Care Nurse Name: Jeannie Mccarty RN Position: [facility] RN Member Role: Primary Care Nurse Name: Meghann Mccracken RN Position: [facility] [employer] Member Member Role: Primary Care Nurse Name: Jean-Paul RN [place] Position: [facility] SN RN Member Role: Primary Care Nurse Care Team Related Persons Name: BALBIR CHUA Address: [address] [place], [place] Name: LIVE CHUA Address: [address] [place] Name: WALKER CHUA Name: MICHELA BASILIO Address: home [address] [place], [place]
--- OUTSIDE RECORDS SUMMARY | 2023-05-21 15:29 | XMS_ITS | Continuity of Care Document ---
Author Name Unknown Organization [facility] ter Address [address] [place] [address]- Care Team Providers Care Android Ios Developer Name Role Phone Zoraida Luo MD Primary Care Physician [place] [facility] [place] 07[place]16/22 - 04/08/[address] [address] Attending Physician: Josemanuel Calderon MD Admitting Physician: Josemanuel Calderon MD Allergies, Adverse Reactions, Alerts Substance Reaction [...] 1Early/Late Reason: Med Not Available 2Result Comment: [id number], NOV 28 3Early/Late Reason: Med Not Available [...] 0 Refills, Maintenance, 03/22/23 14:49:00 EDT, Ointment, [facility], [...] 03/22/23 14:49:00 EDT, Route to Pharmacy Electronically, [facility], Partial fill upon patien... Start Date: [...] 0 Refills, Maintenance, 03/11/23 12:54:00 EDT, Injection, [facility], [...] Care Nurse Name: Goyo Juan MD Position: [facility] Renal MD Member Role: Lifetime Consulting Physician Address: Address: [address] [place] [address] Name: Maria Dolores White RN Position: [facility] RN Member Role: Primary Care Nurse Name: Claudine Judge RN Position: [facility] RN Member Role: Primary Care Nurse Name: Misty Butt RN Position: [facility] RN Member Role: Primary Care Nurse Name: Cher Nichols Position: S RN Member Role: Primary Care Nurse Name: Suze Villafuerte NP Position: [facility] Associate Professional Member Role: Primary Care Nurse Address: Address: [address] [place] [id number] Name: Jodi Solorzano RN Position: [facility] RN Member Role: Primary Care Nurse Name: Isabela Caldera Position: [facility] Associate Professional Member Role: Lifetime Consulting Provider Address: Address: [address] [place] [address] [place] [address]- Name: Erum Fuentes Position: S RN Member Role: Primary Care Nurse Name: Neetu Frost Position: [facility] PCO RN Member Role: Primary Care Nurse Name: Juana Palafox RN Position: [facility] RN Member Role: Primary Care Nurse Name: Anthony Magdaleno RN Position: S RN Member Role: Primary Care Nurse Name: Hansa Carmona Position: [facility] RN Member Role: Primary Care Nurse Name: Donna Hatfield LPN Position: [facility] RN Member Role: Primary Care Nurse Name: Farzaneh Palacios RN Position: [facility] RN Member Role: Primary Care Nurse Name: Migel Cruz RN Position: [facility] RN Member Role: Primary Care Nurse Name: Radha Nye RN Position: [facility] RN Member Role: Primary Care Nurse Name: Cristina Spence Position: [facility] RN Member Role: Primary Care Nurse Name: Shira Mann RN Position: [facility] RN Member Role: Primary Care Nurse Name: Odin Rodriguez DO Position: [facility] Renal MD Member Role: Lifetime Consulting Physician Address: Address: [address] [place], [place] [address] [place] [address]- Name: Jimy Gaytan RN Position: [facility] RN Member Role: Primary Care Nurse Name: Frida Blanco RN Position: [facility] RN Member Role: Primary Care Nurse Name: Nik Esposito Position: [facility] Associate Professional Member Role: Lifetime Consulting Provider Address: Address: [address] [place] [address] Name: Deirdre Lopez RN Position: [facility] RN Member Role: Primary Care Nurse Name: Rosario Alcantara RN Position: [facility] RN Member Role: Primary Care Nurse Name: Robert Braden RN Position: [facility] RN Member Role: Primary Care Nurse Name: Jess Chong RN Position: [facility] RN Member Role: Primary Care Nurse Name: Jacoby Sood MD Position: [facility] Renal MD Member Role: Lifetime Consulting Physician Address: Address: [address] [place] [address] [address] [facility] [place] [place] [address]- Name: Ramonita Bardales RN Position: [facility] RN Member Role: Primary Care Nurse Name: Ramin Bradley RN Position: [facility] RN Member Role: Primary Care Nurse Name: Linda Benson LPN Position: [facility] RN Member Role: Primary Care Nurse Name: Jocelyn Modi RN Position: [facility] RN Member Role: Primary Care Nurse Name: Erma Lira RN Position: [facility] RN Member Role: Primary Care Nurse Name: Sherif Amaya MD Position: [facility] Renal MD Member Role: Lifetime Consulting Physician Address: Address: [address] [place] [address] [facility] [place] [address]- Name: Aristeo ESPAÑA, Cony Leyva Position: [facility] SN RN Member Role: Primary Care Nurse Name: Kaylan Caraballo RN Position: [facility] RN Member Role: Primary Care Nurse Name: Zoraida Luo MD Position: Reference Physician Member Role: PCP Address: Address: [address] [place] [address]- Name: Ledy Franco RN Position: [facility] RN Member Role: Primary Care Nurse Name: Rosina Fernandez RN Position: [facility] RN Member Role: Primary Care Nurse Name: Kaylan Barker RN Position: [facility] Onco RN Member Role: Primary Care Nurse Name: Jeannie Mccarty RN Position: [facility] RN Member Role: Primary Care Nurse Name: Meghann Mccracken RN Position: [facility] Belt Conveyor Drier Member Role: Primary Care Nurse Name: Jean-Paul ESPAÑA [place] Position: [facility] SN RN Member Role: Primary Care Nurse Care Team Related Persons Name: LIVE CHUA Address: [address] [place] [address] Name: MICHELA BASILIO Address: [address] [place] [address]
--- OUTSIDE RECORDS SUMMARY | 2023-05-21 15:29 | XMS_ITS | Continuity of Care Document ---
Author Name Unknown Organization [facility] ter Address [address] [place] [id number]- Care Team Providers Care Tobacco Sampler Name Role Phone Valerio SEVERINO, Zoraida Primary Care Physician Encounter [facility] Date(s): 04/23/23 - 04/23/[address] [address] Discharge Disposition: A-D/C Home Attending Physician: Johana Caro MD Admitting Physician: Johana Caro MD Referring Physician: Johana Caro MD Allergies, Adverse Reactions, Alerts Substance Reaction [...] 1Early/Late Reason: Med Not Available 2Result Comment: [id number], NOV 28 3Early/Late Reason: Med Not Available [...] Maintenance, 03/22/23 14:49:00 EDT, Ointment, [facility], Partial fill upon patient request if [...] EDT, Route to Pharmacy Electronically, [facility], Partial fill upon patien... Start Date: [...] Maintenance, 03/11/23 12:54:00 EDT, Injection, [facility], Partial fill upon patient request if [...] EVERY MORNING Start Date: 01/11/23 Status: Ordered Oxycodone 5mg Oral Tablet (PACU ONLY) 5 mg, Tablet, By Mouth, Once, in PACU ONLY, PRN for Pain , Moderate, Routine, 04/23/23 14:20:00 EDT Start Date: 04/23/23 Stop Date: 04/23/23 Status: Completed pantoprazole 20 mg oral delayed release tablet [...] to oldest [Reference Range]: 1 2 3 4 Height 161 cm (04/23/23 11:53 AM) Weight 75 kg (04/23/23 11:53 AM) Oxygen Saturation [94-100 %] 99 % (04/23/23 4:30 PM) 97 % (04/23/23 4:15 PM) 98 % (04/23/23 4:00 PM) Pulse Rate [55-90 bpm] 87 bpm (04/23/23 11:53 AM) Body Mass Index [18.5-24.99 kg/m2] 28.93 kg/m2 *H* (04/23/23 11:53 AM) Blood Pressure [90-138/55-84 mm Hg] 140/99mm Hg *H* (04/23/23 4:30 PM) 126/87mm Hg (04/23/23 4:15 PM) 136/87mm Hg (04/23/23 4:00 PM) Respiratory Rate [16-30 br/min] 17 br/min (04/23/23 4:33 PM) 18 br/min (04/23/23 4:30 PM) 10 br/min *L* (04/23/23 4:15 PM) Temperature [96.8-100.4 DegF] 98.2 DegF (04/23/23 3:45 PM) 98.9 DegF (04/23/23 3:00 PM) 98.2 DegF (04/23/23 11:53 AM) Mode of Delivery (Oxygen) Room air (04/23/23 4:30 PM) Room air (04/23/23 4:30 PM) Room air (04/23/23 3:00 PM) Room air (04/23/23 3:00 PM) Blood pressure sites Arm, right (04/23/23 3:00 PM) Arm, right (04/23/23 11:53 AM) Temperature Route Temporal (04/23/23 3:45 PM) Temporal (04/23/23 3:00 PM) Temporal (04/23/23 11:53 AM) Dry Weight 75 kg (04/23/23 11:53 AM) Weight Obtained Via Standing scale (04/23/23 11:53 AM) Dry Weight Obtained Via Standing scale (04/23/23 11:53 AM) Social History Social History Type Response Smoking Status Never (less than 100 in lifetime) entered on: 03/05/23 Sex Note * Diana Duarte RN: PERFORM Event Display: Discharge/Transfer Note Hospital Authored Date: [id number] Nursing Discharge Note Entered On: 04/23/2023 19:11 EDT Performed On: 04/23/2023 19:10 EDT by Diana Duarte RN Nursing Discharge Note 2 Discharge Time : 04/23/2023 18:20 EDT Discharge Level of Care at Discharge : Home/Custodial/Foster Care Patient Left Unit Via : Wheelchair Patient Accompanied Off Unit with : Responsible adult, Other: Sister Reba DC Instructions Provided & Signed by Pt : Yes Patient Understands D/C Instructions : Yes Verbalized Understanding of D/C Plan By : Patient, Responsible adult, Other: sister reba Patient Instructions Discharge Signed : Yes Discharge Comments : Pt had own medela wound vac, Pt sent home with wound vac supplies that he arrived to pacu with. Did Pt have Specialty Bed or Wound Vac : Yes Diana Duarte RN - 04/23/2023 19:10 EDT Caregiver Notification Caregiver Home Phone/Work Phone : [phone] Diana Duarte RN - 04/23/2023 19:20 EDT Patient has a Designated Caregiver : Yes Name of Caregiver : Reba Caregiver Relationship : Sister Caregiver Notified of Discharge : Yes Mode of Caregiver Notification : Phone Diana Duarte RN - 04/23/2023 19:10 EDT * Diana Duarte RN: PERFORM Event Display: Patient Education/Instruction Authored Date: [id number] Surgery Adult Discharge Instructions [address] [address] Name: VERONA RICHARDSON : 1965?? Visit: 04/23/2023 10:03?? Current Date: 04/23/2023 17:27 ?? Account: [id number]?? Surgery Discharge Instructions We would like to thank [...] and their families. Surveys are administered by [employer] ?? If further treatment with your primary care physician or another doctor is recommended, it is important for you to keep the appointment. Call your primary care physician or return to the Emergency Department immediately if your condition worsens, fails to improve, or new symptoms develop. If you need to find a doctor, you can call [facility] Link for a referral at [phone] or toll free at [phone]) or log in to [email or web address].. ?? [facility], in keeping with [facility] guidance, no longer requires face masks for [...] a health care niraj of your choosing. [employer] [address] [address] is a website that allows you to securely view your medical information including your hospital discharge summary, office visit summaries, medications and follow-up visits. You can also request appointments, renew medications, and request access to your medical information using a health care niraj of your choosing, or just ask a question. You are entitled to know the individuals who participated in your treatment. This information is available within your medical record and will be provided upon your request. You can enroll at [email or web address] or register d uring your next office visit. You have been discharged from [facility], Patient Care Unit: PANU??. If you have any questions regarding these instructions after you leave, please call us and we will be happy to assist you. [facility] Your Care Team Attending Physician Johana Caro MD?? Discharging Providers Carolynn Thakkar MD Reason for Admission NON[facility]ALING [facility] SITE R A HV2 1015AM ARR Primary Care Provider Zoraida Luo MD? Advance Directive Health Care Proxy on File Yes - Health Care Proxy What to do next Instructions From Your Doctor ?? Orders?? Daystay Protocol, ??When Unit Discharge Criteria Met, ??04/23/23 14:57:00 EDT?? Instructions from your Care Team Please check your blood sugar tonight before bed. If you continue to have low blood sugars please contact your doctor. Scheduled Follow-Up Appointments 2022 1:00 PM EST ?? With: Johana Caro MD Where: [facility] [address] [facility] [address] [place] [id number]- Status: Pending You Need to Schedule the Following Appointments Follow Up with??Johana Caro MD When:??04/29/2023 01:00 PM EST Why: Vascular postop visit Where: [address] [facility], [address] [facility] [place] [address]- Discharge Medications VERONA RICHARDSON :1965 Visit Date:04/23/2023 Medications: Please continue your medications until treatment is completed or stopped by your provider. You may resume your daily prescription medications. Discuss any questions related to medications with your provider. What How Much When Instructions Next Dose Unchanged Acetaminophen (acetaminophen 500 mg oral tablet) 1 tab(s) Oral Every 4 hours as needed for as needed for fever Please take as directed, as prescribed Unchanged Albuterol (albuterol 0.083% inhalation solution) 3 Milliliter Inhalation Every 6 hours as needed for for wheezing Please take as directed, as prescribed Unchanged Amlodipine (amLODIPine 5 mg oral tablet) 1 tab(s) Oral Daily TAKE ONE TABLET EVERY MORNING ?? Please take as directed, as prescribed Unchanged Aspirin (aspirin 81 mg oral delayed release tablet) 81 Milligram Oral Daily Please take as directed, as prescribed Unchanged Atorvastatin (atorvastatin 10 mg oral tablet) 1 tab(s) Oral Daily TAKE ONE TABLET EVERY MORNING ?? Please take as directed, as prescribed Unchanged Calcitriol (calcitriol 0.5 mcg oral capsule) 1 capsule Oral Daily TAKE ONE CAPSULE EVERY MORNING ?? Please take as directed, as prescribed Unchanged Collagenase Topical (collagenase topical 250 u/ gm ointment) See instructions apply topically to R BKA BID ?? Do NOT use Unchanged Ferrous Sulfate (ferrous sulfate 325 mg oral enteric coated tablet) 325 Milligram Oral Daily Please take as directed, as prescribed Unchanged Gabapentin (gabapentin 100 mg oral capsule) 1 capsule Oral 3 times a day Duration: 30 Days TAKE ONE CAPSULE BY MOUTH AT BEDTIME ?? Please take as directed, as prescribed Unchanged HydrOXYzine (hydrOXYzine hydrochloride 10 mg oral tablet) 1 tab(s) Oral Twice a day TAKE ONE TABLET BY MOUTH IN THE MORNING AND EVENING ?? Please take as directed, as prescribed Unchanged Insulin Glargine (insulin glargine 100 u/ ml subcutaneous solution) 10 unit(s) Subcutaneous Injection Daily at Bedtime Check your blood sugar, prior to administering, as directed Unchanged Insulin Lispro (insulin lispro 100 units/ mL injectable solution) 6 unit(s) Subcutaneous Injection 3 times a day before meals Check your blood sugar, prior to administering, as directed Unchanged Loperamide (loperamide 2 mg oral capsule) 2 Milligram Oral Every 3 hours as needed for Loose Stool ??take as directed, as prescribed Unchanged Metoprolol (Metoprolol Succinate ER 25 mg oral tablet, extended release) 1 tab(s) Oral Daily TAKE ONE TABLET EVERY MORNING ?take as directed, as prescribed Unchanged Pantoprazole (pantoprazole 20 mg oral delayed release tablet) 20 Milligram Oral Daily ?take as directed, as prescribed Unchanged sodium bicarbonate (sodium bicarbonate 650 mg oral tablet) 1 tab(s) Oral 3 times a day TAKE ONE TABLET BY MOUTH THREE TIMES DAILY ?take as directed, as prescribed Unchanged Tacrolimus (tacrolimus 1 mg oral capsule) 2 capsule Oral Every 12 hours ??take as directed, as prescribed Unchanged Trazodone (traZODone 50 mg oral tablet) 0.5 tab(s) Oral Daily at Bedtime TAKE 1/ 2 TABLET AT BEDTIME ?take as directed, as prescribed Allergies (NKA means No Known Allergies) Benadryl??(itching) Dilaudid??(anaphylaxis) morphine??(itching) Education Materials Below is the list of Educational Leaflet Providered with your Discharge Instructions. Hypoglycemia (Low Blood Sugar)?? Low Blood Sugar (Hypoglycemia)?? Negative Pressure Wound Therapy?? Surgery Medical Daystay Surgical Overnight Discharge Instructions?? Valuables and Belongings I fully understand and agree that [facility] accepts no responsibility for all [...] to send valuables and belongings home. ?? Date for Pt to Sign Valuables/Belongings: 04/23/23 11:53:00 ?? Valuables & Belongings ?? Clothes Electronic devices Jewelry Monetary Items Personal devices Miscellaneous Medications (Valuables) Valuables at Bedside Pants, Shirt, Shoes Cell phone ?? Other: [place], wheelchair, ampushield ? Valuables Sent Home ? Valuables Sent to Security ? Other Discharge Information ? Pulmonary Rehab Status?? Pulmonary Rehab Discharge [...] are strongly encouraged to quit. Please call [facility] Link at [phone] or [phone]) or log in to [email or web address] for referrals to smoking cessation programs. ?? The National Suicide Prevention Hotline is available 11/01 if you or someone you know needs to find a reason to keep living. By calling 0-067-926-Eachbaby (2968) you'll be connected to a skilled, trained counselor at a crisis center in your area. SURGERY DISCHARGE INSTRUCTIONS SIGNATURE VERONA BANKS Location:[facility] Registration Date and Time:04/23/2023 10:03 EDT Primary Care Physician: Zoraida Luo MD, Attending Physician: Johana Caro MD, I VERONA RICHARDSON, have received the above patient education materials/instructions and have verbalized understanding. If ambulance or transport services are being used I further acknowledge being given a choice of service. ?? If you need to contact me, please call me at this number: . Patient/Equipment Service Technician Name: Patient/Equipment Service Technician Signature: Relationship to Patient: Witness Name/Signature: Date: * Diana Duarte RN: PERFORM Event Display: Patient Education Leaflets Authored Date: [id number] Hypoglycemia (Low Blood Sugar) ?? [address] Nivel bajo de az??car en la christian (hipoglucemia) Cuando tiene nivel bajo de az??car en la christian (hipoglucemia) significa que no tiene az??car (o glucosa) suficiente en el torrente sangu??jody para el funcionamiento del cuerpo. Puede ser un nivel deaz??car inferior a 70??mg/dl. Love hable con el proveedor de atenci??n m??dica sobre rosemary valores normales. Consulte qu?? nivel es demasiado bajo para usted. La diabetes no causa un nivel bajo de az??car en la christian. Love algunos tratamientos para la diabetes podr??an aumentar el riesgo. Estos incluyen medicamentos orales o insulina. En casos graves, un nivel bajo de az??car en la christian puede hacerle perder el conocimiento o causar convulsiones. Bernard es grzegorz emergencia m??dica. Siempre debe tratar el nivel bajo de az??car en la christian de inmediato odalis se indica a continuaci??n. Bernard es para prevenir problemas m??s graves. Nota de seguridad Lleve siempre grzegorz nida de az??car de acci??n r??pida y un refrigerio en shyla de que tenga nivel bajo de az??car en la christian. Ejemplos: ??? 4??tabletas de glucosa ??? 1??tubo de gel de glucosa ??? 1??paquete de az??car o miel ??? 2??cucharadas de pasas de uva ?? S??ntomas de nivel bajo de az??car en la christian Si tiene nivel bajo de az??car en la christian, puede tener 1??o m??s de los siguientes s??ntomas: ???Temblores ??? Mareos ??? Fr??o, piel pegajosa o sudor ??? Hambre ??? Dolor de natividad ??? Nerviosismo ??? Ritmo card??aco sydni y r??pido ??? Debilidad ??? Confusi??n o irritabilidad ??? Dificultadespara noah o hablar ??? Tener pesadillas o despertarse confundido o sudando ??? Entumecimiento y hormigueo en los labios o la lengua ?? Qu?? hacer Si piensa que tiene nivel bajo de az??car en la christian, quita lo siguiente:?? 1. Revise jaramillo nivel de az??car en la christian. Fer, revise jaramillo nivel de az??car en la christian. Si est?? demasiado bajo (fuera de los valores normales para usted), coma o maria luisa de 15 a 20??gramos de az??car de acci??n r??pida. Pueden ser??3 a 4??tabletas de glucosa o 4??onzas (media taza) de jugo de fruta o gaseosa corriente (no de dieta) o 1??cucharada de miel. No tome m??s cantidad que esta. Si lohace, el nivel de az??car en la christian podr??a elevarse demasiado. 2. No consuma prote??rimma. No consuma alimentos o bebidas con contenido alto de prote??rimma para tratar el nivel bajo de az??car en lasangre. Bernard incluye la leche, los ever secos y la carne. Las prote??rimma pueden aumentar jaramillo respuesta a la insulina. Lo que puede reducir a??n m??s el nivel de az??deneen la christian. 3. Vuelva a controlarse. Espere 15??minutos. Luego, si puede, vuelva a medirse el nivel de az??car en la christian. Si jaramillo nivel de az??car en la christian todav??a es muy bajo, repita los pasos anteriores hasta que jaramillo nivel de az??car en la christian vuelva a ser normal. 4. Coma un refrigerio. Cuando el nivel de az??car en la christian regrese al valor normal, coma un refrigerio o grzegorz comida. 5. Pida ayuda si la necesita. Sitodav??a no se siente amena y el nivel de az??car en la christian sigue siendo bajo, pida a alguien quelo lleve a la toby de urgencias del hospital. ?? C??mo prevenir un nivel bajo de az??car en la christian Puede hacer lo siguiente:? Si la diabetes requiere un plan de tratamiento estricto, coma las comidas y los refrigerios a la misma hora todos los d??as. ??No se salte ninguna comida! ??? Si el plan de tratamiento le permitecambiar la hora de la comida y los alimentos, aprenda c??mo cambiar la hora y la dosis de la insulina de acci??n r??pida para adaptarlas.? Pregunte al proveedor de atenci??n m??dica si es segurobeber alcohol. Love nunca lo quita con el est??dominique vac??o. El alcohol puede evitar que sienta los primeros s??ntomas de nivel bajo de az??car en la christian. ??? [place] rosemary medicamentos a las horas indicadas. ??? Lleve siempre con usted grzegorz nida de az??car de acci??n r??pida y un refrigerio cuando est?? lejos de casa. Si tiene episodios repetidos de nivel bajo de az??car en la christian, quita lo siguiente: ??? Quiz?? no reconozca los s??ntomas del nivel bajo de az??car en la christian hasta que llega a un nivel peligroso. Hable con el proveedor para noah las mejores maneras de controlar el nivel de az??car en la sangrede forma cardenas. ??? Preg??ntele al proveedor de atenci??n m??dica si puede lesli menos medicamentos o jatin distinto. Muchos de los nuevos tipos de medicamentos para la diabetes tienen menos riesgo decausar nivel bajo de az??car en la christian. ??? Pregunte al proveedor si deber??an recetarle grzegorz inyecci??n de glucag??n. Es grzegorz hormona que sube r??pidamente el nivel de az??car en la christian. Puede revertir los s??ntomas graves. ?? Otros consejos de seguridad Aseg??rese de hacer lo siguiente: ??? Lleve consigo grzegorz tarjeta de identificaci??n m??dica de alerta, o grzegorz pulsera o win de alerta m??dica. En estos elementos se debe informar que usted tiene diabetes. Tambi??n se debe indicar qu?? hacer si se desmaya o tiene convulsiones. ??? Ense??e a rosemary fami liares, amigos y kofi??eros de trabajo los signos de un nivel bajo de az??car en la christian. D??adam lo que deben hacer si jaramillo nivel de az??car baja demasiado y no puede tratarse usted mismo. ??? Mantenga a mano un kit de glucag??n de emergencia. Muestre a rosemary familiares, amigos y kofi??eros de trabajo c??mo y cu??ndo usarlo. Rev??selo regularmente. Reemplace el glucag??n antes de jaramillo fecha de vencimiento. ??? Hable con jaramillo equipo de atenci??n m??dica sobre otras medidas para prevenir un nivel bajo de az??car en la christian. Entre ellas, el uso de formas nuevas de control continuo de la glucosa. ?Importante Si el nivel bajo de az??car en la christian se presenta sin causa conocida o varias veces, llame al proveedor de atenci??n m??dica. ?? Last Reviewed Date: 2023 ?? [employer]. Todos los derechos reservados. Esta informaci??n no pretende sustituir la atenci??n m??dica profesional. S??lo jaramillo m??dico puede diagnosticar y tratar un problema de carlin. ?? * Gerald ESPAÑA, Diana: PERFORM Event Display: Patient Education Leaflets Authored Date: [id number] Low Blood Sugar (Hypoglycemia) ?? [address] Low Blood Sugar (Hypoglycemia) Low blood sugar (hypoglycemia) means you don???t have enough sugar (glucose) in your bloodstream tohelp your body work. This may be a level of sugar lower than 70 mg/dL. But talk with your healthcare provider about your own target range. Ask what level is too low for you. Diabetes doesn???t cause low blood sugar. But some treatments for diabetes may raise the risk for it. These include oral medicines or insulin. In severe cases, low blood sugar may make you pass out or have a seizure. This is a medical emergency. So always treat low blood sugar right away as noted below. This is to prevent more serious problems. Safety note Always carry a source of fast-acting sugar and a snack in case you have low blood sugar. Examples include: ??? 4 glucose tablets ??? 1 tube of glucose gel ??? 1 packet of sugar or honey ??? 2 tablespoons ofraisins ?? Symptoms of low blood sugar If you have low blood sugar, you may have 1 or more of these symptoms: ??? Shakiness ??? Dizziness ??? Cold, clammy skin or sweating ??? Hunger ??? Headache ??? Nervous feeling ??? A hard, fast heartbeat ??? Weakness ??? Confusion or irritability ??? Trouble seeing or talking ??? Having nightmares or waking up confused or sweating ??? Numbness or tingling in the lips or tongue ?? What to do If you think you have low blood sugar:?? 1. Check your sugar. First, check your blood sugar. If it's too low (out of your target range), eator drink 15 to 20 grams of fast-acting sugar. This may be 3 to 4 glucose tablets, or 4 ounces (halfa cup) of fruit juice or regular (not diet) soda, or 1 tablespoon of honey. Don???t take more than this. If you do, your blood sugar may go too high. 2. Don???t have protein. Don't eat or drink things high in protein to treat low blood sugar. This includes milk, nuts, and meat. Protein may increaseyour insulin response. It may lower your blood sugar even more. 3. Check again. Wait 15 minutes. Then recheck your blood sugar if you can. If your blood sugar is still too low, repeat the steps aboveuntil your blood sugar is back to normal. 4. Eat a snack. When your blood sugar is back at target range, eat a snack or meal. 5. Get help if needed. If you still don???t feel well and your blood sugar is still low, have someone drive you to the emergency room. ?? Preventing low blood sugar Things you can do include the below:? If your diabetes needs a strict treatment plan,??eat meals and snacks at the same times each day. Don???t skip meals! ??? If your treatment plan lets you change when and what you eat, learn how to change the time and dose of your rapid-acting insulin to match.? Ask your healthcare providerif it's safe to drink alcohol. But never drink on an empty stomach. Alcohol may keep you from feeling the first symptoms of low blood sugar. ??? Take your medicine at the prescribed times. ??? Alwayscarry a source of fast-acting sugar and a snack when you???re away from home. If you have had repeated low blood sugar episodes: ??? You may not notice the symptoms of low bloodsugar until it gets to a dangerous level. Work with your provider for the best ways to safely manage your blood sugar. ??? Ask your healthcare provider if you can take less or different medicine. Many newer types of diabetes medicines have less risk of low blood sugar. ??? Ask your provider if you should be prescribed a glucagon shot. Glucagon is a hormone that quickly raises blood sugar. It can reverse serious symptoms. ?? Other safety tips Make sure to: ??? Carry a medical ID card or wear a medical alert bracelet or necklace. It should say that you have diabetes. It should say what to do if you pass out or have a seizure. ??? Teach your family, friends, and coworkers the signs of low blood sugar. Tell them what to do if your blood sugar falls very low and you can???t treat yourself. ??? Keep a glucagon emergency kit handy. Show your family, friends, and coworkers how and when to use it. Check it often. Replace the glucagon beforeit expires. ??? Talk with your healthcare team about other things you can do to prevent low blood sugar. These include using new ways of continuous glucose tracking. ?Important If you have??unexplained low blood sugar or have it several times, call your healthcare provider. ?? Last Reviewed Date: 2023 ?? 2952-6010 [employer]. All rights reserved. This information is not intended as a substitute for professional medical care. Always follow your healthcare professional's instructions. ?? * Gerald ESPAÑA, Diana: PERFORM Event Display: Patient Education Leaflets Authored Date: [id number] Negative Pressure Wound Therapy ?? 44137hm Terapia por presi??n negativa t??pica La terapia por presi??n negativa t??pica (NPWT, por jaramillo sigla en ingl??s) es un tipo de tratamiento para la cicatrizaci??n de las heridas. Tambi??n se conoce odalis cicatrizaci??n asistida por vac??o (VAC, por jaramillo sigla en ingl??s). En el tratamiento, se usa un dispositivo para reducir la presi??n de aire en la herida. Bernard puede ayudar a que la herida cicatrice m??s r??pido. Qu?? es la NPWT Un dispositivo de NPWT tiene varias piezas. Se aplica espuma o un vendaje de gasa directamente sobre la herida. El ap??sito se cambia cada 24 o 72??horas. Se coloca grzegorz pel??cula adhesiva que recubrey sella el vendaje y la herida. Un tubo de drenaje sale por debajo de la pel??cula adhesiva y se conecta a grzegorz bomba de vac??o port??til. Esta bomba elimina la presi??n de aire sobre la herida y tambi ??n ayuda a drenar cualquier l??quido de la herida. Puede hacerlo de manera dionte. O puede hacerlo en ciclos. Sonia el tratamiento, deber?? llevar la bomba port??til siempre con usted, vaya donde vaya. ?? Por qu?? se utiliza la NPWT Puede que necesite esta terapia para grzegorz herida traum??jennifer que haya tenido recientemente. O amena, para tratar grzegorz herida cr??anupam. Grzegorz herida cr??anupam es aquella que no cicatriza odalis debiera a lo sadie del tiempo. Puede suceder en las heridas de la gente con diabetes. Es posible que requiera NPWTsi se gagnon colocado un injerto de piel recientemente. O puede necesitarlo para tratar grzegorz herida jorje. Las heridas grandes pueden tardar mucho tiempo en cicatrizar. La NPWT puede ayudar a que la herida cicatrice m??s r??pido francine a que hace lo siguiente: ??? Drena el exceso de l??quido de la herida ??? Reduce la hinchaz??n ??? Reduce la cantidad de bacterias en la herida ??? Mantiene la herida h??oralia y caliente ??? Ayuda a que se unan los bordes de la herida ??? Aumenta el flujo de christian a la herida ??? Disminuye la inflamaci??n La NPWT tiene algunas ventajas respecto de otros tipos de tratamiento para heridas. Puede reducir el malestar general. Los vendajes suelen tener que cambiarse con menos frecuencia. Y pueden ser m??s f??ciles de mantener en jaramillo lugar. ?? Riesgos de la NPWT La NPWT tiene algunos riesgos poco frecuentes; por ejemplo: ??? Sangrado, que puede ser intenso ??? Infecci??n de la herida ??? Grzegorz conexi??n anormal entre el tracto intestinal y la piel (f??stula ent??moses). Suele ser un problema solo si la NPWT se usa en grzegorz herida abdominal abierta que no se pudo cerrar. Aprender a cambiar el vendaje correctamente puede ayudar a reducir el riesgo de estas complicaciones. Adem??s, jaramillo proveedor de atenci??n m??dica evaluar?? cuidadosamente jaramillo shyla para asegurarse de que usted sea un buen candidato para esta terapia. Ciertos problemas pueden aumentar jaramillo riesgo de tener complicaciones. Entre ellos, se incluyen los siguientes: ?rganos o vasos sangu??neos expuestos ??? [place] riesgo de sangrado por otro problema m??dico ??? Infecci??n de la herida ??? Infecci??n en los huesos cercanos ??? Tejido muerto en la herida ??? Tejido canceroso ??? Piel fr??hilario, por la edad o por el uso prolongado de esteroides t??picos ??? Alergia al adhesivo ??? Poco flujo de christian a la herida ??? Heridas cerca de articulaciones que puedenreabrirse por el movimiento Jaramillo proveedor de atenci??n m??dica le explicar?? los riesgos que tienen que noah con usted. Aseg??rese de contarle todas las preguntas e inquietudes que tenga. ?? C??mo prepararse para la NPWT Es probable que no necesite kash preparaci??n para la NPWT. En algunos casos, quiz??s necesite esperar un poco antes de esta terapia. Por ejemplo, puede que jaramillo proveedor de atenci??n m??dica quiera fer tratar grzegorz infecci??n en jaramillo herida. El tejido muerto o da??ado quiz??s tambi??n deba quitarse de jaramillo herida fer. Quiz??s deban ense??arle a usted o a un cuidador c??mo usar el dispositivo de NPWT. Bernard es as?? siusted utilizar?? la terapia VAC en jaramillo hogar. En otros casos, puede que deba acudir a un centro de atenci??n m??dica para recibir la terapia VAC en jaramillo herida. ?? El d??a del procedimiento Un proveedor de atenci??n m??dica le cubrir?? la herida con espuma o un vendaje de gasa. Le colocar?? grzegorz pel??cula adhesiva sobre el vendaje y la herida. Bernard es para sellar la herida. La espuma se conecta a un tubo de drenaje, el cual va hacia grzegorz bomba de vac??o. Esta bomba es port??til. Cuando la bomba se enciende, extrae el l??quido a la??s de la espuma y hacia el tubo de drenaje. La bomba puede estar en funcionamiento dionte o trabajar en ciclos. La configuraci??n para jaramillo shyla depender?? del tipo espec??fico de sistema de vac??o que se use para jaramillo herida. ?? Cuide jaramlilo herida Es probable que deba cambiarse el vendaje grzegorz vez al d??a o menos, odalis cada algunos d??as. Quiz?? deba cambiarlo m??s o menos seguido, seg??n jaramillo herida. Les ense??ar??n a usted o a jaramillo cuidador a hacer esto en jaramillo casa. Tambi??n puede realizar grzegorz visita a un proveedor de atenci??n m??dica para que se lo quita. El proveedor puede recetarle un analg??sico. Bernard es para prevenir o reducir el dolor sonia el cambio de vendaje. Probablemente, deber?? usar el sistema de NPWT por varias semanas o meses para que la herida cicatrice. En jt tiempo, deber?? llevar la bomba port??til siempre con usted, adondequiera que vaya. ?? Nutrici??n para la cicatrizaci??n de heridas Sonia garo tiempo, aseg??rese de seguir grzegorz dieta saludable. Bernard es necesario para que la heridapueda cicatrizar y para evitar infecciones. Jaramillo proveedor de atenci??n m??dica le todd?? m??s informaci??n sobre qu?? alimentos puede incluir en jaramillo dieta sonia garo per??odo. Quita el seguimiento con jaramillo proveedor de atenci??n m??dica si tiene alguna afecci??n que le haya provocado la herida, maryellen odalis la diabetes. Jaramillo proveedor puede ayudarle a evitar futuras heridas. ?? Seguimiento Jaramillo proveedor de atenci??n m??dica vigilar?? cuidadosamente jaramillo cicatrizaci??n. Aseg??rese de asistira todas rosemary citas de control. Bernard puede incluir medir el catherine??o de la herida y tomarle fotograf??as. ?? Cu??ndo llamar a jaramillo proveedor de atenci??n m??dica Llame de inmediato a jaramillo proveedor de atenci??n m??dica en cualquiera de los siguientes casos: ??? Fiebre de 100.4?F (38.0?C) o superior, o seg??n le indique el proveedor de atenci??n m??dica ??? Escalofr??os ??? Aumento del enrojecimiento, la hinchaz??n o el calor alrededor de la herida ??? Aumento del dolor ??? Christian de color friedman brillante o co??gulos de christian en las sondas o en la c??dalia de recolecci??n del dispositivo de NPWT ?? Last Reviewed Date: 2021 ?? [id number] [employer]. All rights reserved. This information is not intended as a substitute for professional medical care. Always follow your healthcare professional's instructions. ?? Patient Care team information Care Team Personnel Name: Radha Borjas RN Position: [facility] RN Member Role: Primary Care Nurse Name: Yady Copeland RN Position: [facility] RN Member Role: Primary Care Nurse Name: Goyo Juan MD Position: [facility] Renal MD Member Role: Lifetime Consulting Physician Address: Address: [address] [place] [address] [id number] [facility] [place] [address]- Name: Maria Dolores White RN Position: [facility] RN Member Role: Primary Care Nurse Name: Claudine Judge RN Position: [facility] RN Member Role: Primary Care Nurse Name: Misty Butt RN Position: [facility] RN Member Role: Primary Care Nurse Name: Cher Nichols Position: [facility] RN Member Role: Primary Care Nurse Name: Suze Villafuerte NP Position: [facility] Associate Professional Member Role: Primary Care Nurse Address: Address: [address] [place] [phone]- [place] Name: Jodi Solorzano RN Position: [facility] RN Member Role: Primary Care Nurse Name: Isabela Caldera Position: [facility] Associate Professional Member Role: Lifetime Consulting Provider Address: Address: [address] [place] [address] [address] [facility] [place] [address]- [place] Name: Erum Fuentes Position: [facility] RN Member Role: Primary Care Nurse Name: Neetu Frost Position: [facility] PCO RN Member Role: Primary Care Nurse Name: Juana Palafox RN Position: [facility] RN Member Role: Primary Care Nurse Name: Anthony Magdaleno RN Position: [facility] RN Member Role: Primary Care Nurse Name: Hansa Carmona Position: [facility] RN Member Role: Primary Care Nurse Name: Donna Hatfield LPN Position: [facility] RN Member Role: Primary Care Nurse Name: Farzaneh Palacios RN Position: [facility] RN Member Role: Primary Care Nurse Name: Migel Cruz RN Position: [facility] RN Member Role: Primary Care Nurse Name: Radha Nye RN Position: [facility] RN Member Role: Primary Care Nurse Name: Cristina Spence Position: [facility] RN Member Role: Primary Care Nurse Name: Shira Mann RN Position: [facility] RN Member Role: Primary Care Nurse Name: Odin Rodriguez DO Position: [facility] Renal MD Member Role: Lifetime Consulting Physician Address: Address: [address] [place], [place] [address] [place] [address]- [place] Name: Jimy Gaytan RN Position: [facility] RN Member Role: Primary Care Nurse Name: Frida Blanco RN Position: [facility] RN Member Role: Primary Care Nurse Name: Nik Esposito Position: [facility] Associate Professional Member Role: Lifetime Consulting Provider Address: Address: [address] [place] [address]- [place] Name: Deirdre Lopez RN Position: [facility] RN Member Role: Primary Care Nurse Name: Rosario Alcantara RN Position: [facility] RN Member Role: Primary Care Nurse Name: Robert Braden RN Position: [facility] RN Member Role: Primary Care Nurse Name: Jess Chong RN Position: [facility] RN Member Role: Primary Care Nurse Name: Jacoby Sood MD Position: [facility] Renal MD Member Role: Lifetime Consulting Physician Address: Address: [address] [place] [address] [address] [facility] [place] [address]- [place] Name: Ramonita Bardales RN Position: [facility] RN Member Role: Primary Care Nurse Name: Ramin Bradley RN Position: [facility] RN Member Role: Primary Care Nurse Name: Linda Benson LPN Position: [facility] RN Member Role: Primary Care Nurse Name: Jocelyn Modi RN Position: [facility] RN Member Role: Primary Care Nurse Name: Erma Lira RN Position: [facility] RN Member Role: Primary Care Nurse Name: Sherif Amaya MD Position: [facility] Renal MD Member Role: Lifetime Consulting Physician Address: Address: [address] [place] [address] [facility] [place] [address]- [place] Name: Cony Alberts RN Position: [facility] SN RN Member Role: Primary Care Nurse Name: Kaylan Caraballo RN Position: [facility] RN Member Role: Primary Care Nurse Name: Zoraida Luo MD Position: Reference Physician Member Role: PCP Address: Address: [address] [place] [phone]- [place] Name: Ledy Franco RN Position: [facility] RN Member Role: Primary Care Nurse Name: Rosina Fernandez RN Position: [facility] RN Member Role: Primary Care Nurse Name: Kaylan Barker RN Position: [facility] Onco RN Member Role: Primary Care Nurse Name: Jeannie Mccarty RN Position: [facility] RN Member Role: Primary Care Nurse Name: Meghann Mccracken RN Position: [facility] Block Mechanic Member Role: Primary Care Nurse Name: Franc Jeong RN Position: [facility] SN RN Member Role: Primary Care Nurse Care Team Related Persons Name: LIVE CHUA Address: home [address] [place] [address] Name: MICHELA BASILIO Address: home [address] [place] [address]
[2023-05-21 15:38] VITALS: BP 149/93; PULSE 94; RESP 16; TEMP 36.9; O2SAT 97
[2023-05-21 15:38] LABS: MANUAL DIFF FLAG NO
--- NOTE | 2023-05-21 15:41 | MHC.EDTECH ---
This pct just assumed care of patient ekg taken and was read by provider ,vitals taken and blood drawn and sent to lab .
[2023-05-21 15:44] LABS: Basophils Absolute Auto 0.1 X10*3/uL (0.0-0.2); Basophils Percent Auto 0.6 % (0-2); Eosinophils Absolute Auto 0.1 X10*3/uL (0.0-0.4); Hematocrit 40.1 % (42.0-52.0); Hemoglobin 13.8 g/dl (14.0-18.0); Imm Gran Abs Auto 0.02 X10*3/uL (0.00-0.03); Imm Gran Pct Auto 0.2 % (0.0-0.4); Lymphocytes Percent Auto 19.6 % (20-40); Mean Corpuscular HGB Conc 34.4 g/dl (31.0-36.0); Mean Corpuscular Hemoglobin 27.2 pg (27.0-33.0); Mean Corpuscular Volume 78.9 fL (80.0-98.0); Mean Platelet Volume 9.9 fL (9.4-12.4); Monocytes Absolute Auto 1.1 X10*3/uL (0.1-1.2); Monocytes Percent Auto 10.2 % (2-11); Neutrophils Absolute Auto 7.1 x10*3/uL (2.0-8.3); Neutrophils Percent Auto 68.4 % (45-73); Platelet Count 308 X10*3/uL (160-400); Red Blood Count 5.08 X10*6/uL (4.60-5.80); Red Cell Distribution Width 13.2 % (11.0-16.0); White Blood Count 10.3 X10*3/uL (4.8-10.8)
[2023-05-21 15:59] LABS: Beta-Hydroxybutyrate 1.25 mmol/L (0.02-0.27)
[2023-05-21] MEDS: 0.9 % Sodium Chloride 1,000 ML 999 ML IV (16:01)
[2023-05-21] MEDS: ondansetron HCL 4 MG/2 ML VIAL IVPUSH (16:01)
[2023-05-21] MEDS: Morphine Sulfate 4 MG/ML CARTRIDGE IVPUSH (16:01)
[2023-05-21 16:03] LABS: Alanine Aminotransferase 14 U/L (0-40); Albumin Level 3.7 g/dL (3.5-5.0); Alkaline Phosphatase 136 U/L (39-117); Anion Gap 19 (12-20); Aspartate Amino Transferase 16 U/L (5-37); Bilirubin Total 0.8 mg/dL (0.0-1.0); Blood Urea Nitrogen 24 mg/dL (9-16); Calcium 10.2 mg/dL (8.4-10.2); Carbon Dioxide 15 mmol/L (22-29); Chloride 105 mmol/L (96-108); Creatinine Clr Calc Pharmacy 27.6; Estimated Glomerular Filt Rate 24; Glucose Random 334 mg/dL (60-115); Lipase 15 U/L (8-78); Potassium 4.6 mmol/L (3.3-5.1); Sodium 134 mmol/L (135-145); Total Protein 7.5 g/dL (6.5-8.0)
[2023-05-21 16:04] LABS: VBG Base Excess 1.5 mmol/L; VBG HCO3 22 mmol/L (22-26); VBG pCO2 27 mmHg; VBG pH 7.52 (7.32-7.43); VBG pO2 74 mmHg
[2023-05-21 16:04] LABS: Venous Blood Gas Refer to POC result
[2023-05-21 16:07] LABS: Troponin-I High Sensitivity 22.2 ng/L (<3.5-35.0)
[2023-05-21] MEDS: 0.9 % Sodium Chloride 1,000 ML 100 ML IVCONT (17:47)
[2023-05-21 17:48] VITALS: BP 157/88; PULSE 74; RESP 16; TEMP 36.8; O2SAT 97
[2023-05-21] MEDS: Pantoprazole Sodium 40 MG/10 ML VIAL IVPUSH (17:51)
--- NOTE | 2023-05-21 17:53 | P.HPHOSP_ITS ---
History of Present Illness Date of Service: 05/21/23 Attending physician on admission: Nara Hood Chief Complaint: Nausea, vomiting, abd pain Pt is a Slovenian-speaking 57-year-old male with a PMH significant for?HTN, HLD, insulin-dependent diabetes type 2, hx of osteomyelitis s/p right BKA, s/p kidney transplant on immunosuppressants tacrolimus and prednisone, and mild intermittent asthma who presents to the ED with?1 week of nausea, vomiting, diarrhea, and diffuse abdominal pain that has worsened significantly in the past 3 days. Patient states symptoms began shortly after visiting with family during . States daughter has similar symptoms and has been hospitalized at [facility] since last Wednesday. Symptoms worsened until he has been unable to eat or drink anything for the past 3 days. Denies hematochezia, melena, but states he noticed some streaks of blood today during the last time he vomited. Patient reports he feels weak and cannot stand up. Also endorses headache, bilateral shoulder pain, and right hip pain, all seemingly chronic. Patient reports last diarrhea was 1-1/2 hour ago and was ?watery and yellow?. Has had some chest pain associated with vomiting, but denies chest pressure. Reports subjective fever and chills, though never measured temperature at home. In the ED pt was afebrile, but with elevated pulse of 96 and hypertensive up to 181/111, satting at 98% on RA. Labs were significant for sodium 134, BUN 24, creatinine 2.75, random glucose 334, beta hydroxybutyrate 1.25. CT?of abdomen and pelvis found diverticulosis without evidence of diverticulitis. Also found evidence questionable for proctitis and esophagitis. EKG demonstrated sinus tachycardia of 103 with left anterior fascicular block and QTc 497. Pt was treated with IVF, morphine, ondansetron, and Protonix. Pt will be admitted to the hospital for treatment further evaluation of intractable nausea, vomiting, diarrhea, and abdominal pain in the setting of likely proctitis. Review of Systems 2 Review of Systems: Intractable nausea, vomiting, diarrhea, abdominal pain x1 week, worse the past 3 days Subjective fever and chills Chronic headache Chronic shoulder pain bilaterally No shortness of breath Denies chest pressure [facility], [facility] Medical History Diabetic infection of right foot Amputation of fifth toe of right foot History of osteomyelitis Chronic hyperglycemia Diabetes HTN (hypertension) Family History Other Diabetes No family history of coronary artery disease Surgical History Renal transplant recipient H/O arteriovenostomy for renal dialysis Social History Household Members: None Housing: House Do you presently have visiting nurse or other home services: Yes ([employer]) Alcohol intake: never Comment: S3 Patient Tobacco Use Status: Never used Tobacco e-Cigarette/Vaping Use: Never Used Use of substances other than those prescribed or required for medical reasons: No Currently Displaying Signs/Symptoms of Drug Intoxication Withdrawal: No Have you been hit, kicked, punched, or otherwise hurt by someone within the past year? If so, by whom?: No Advance Directives: Yes Advance Directives on File: Yes Advance Directives Date on File: 01/21/22 Do you have thoughts of harming others: None Do you have a plan to hurt others: No Plan Nutrition Risks: Diabetes new onset/Uncontrolled service: No Current occupational status: disabled Meds Allergies Allergy/AdvReac Type Severity Reaction Status Date / Time hydromorphone [From DILAUDID] Allergy Mild ITCHINESS Verified 01/07/23 12:56 diphenhydramine Allergy Unknown UNK Verified 01/07/23 12:56 [From BENADRYL] regadenoson [From Lexiscan] AdvReac Mild Itching Verified 01/07/23 12:56 Active Medications: Current Medications Sodium Chloride (Ns) 1,000 mls @ 100 mls/hr IVCONT .Q10H EUNICE Last Admin: 05/21/23 17:47 Dose: 100 mls/hr Home Medications Medication Instructions Recorded Confirmed Last Taken Type albuterol sulfate 2.5 mg/3 mL 1 amp inhalation TID PRN 08/26/21 05/21/23 Unknown History (0.083 %) solution for nebulization Respiratory Distress albuterol sulfate 90 mcg/actuation 2 puff PO Q4H PRN wheezing 08/26/21 05/21/23 Unknown History aerosol inhaler (ProAir HFA) amlodipine 5 mg tablet 5 mg PO DAILY 08/26/21 05/21/23 12/11/21 History aspirin 81 mg tablet,delayed 81 mg PO DAILY 08/26/21 05/21/23 12/11/21 History release atorvastatin 10 mg tablet 10 mg PO DAILY 08/26/21 05/21/23 12/11/21 History calcitriol 0.5 mcg capsule 0.5 mcg PO DAILY 08/26/21 05/21/23 12/11/21 History cholecalciferol (vitamin D3) 1,250 1 cap PO SA@1000 08/26/21 05/21/23 Unknown History mcg (50,000 unit) capsule insulin glargine 100 unit/mL (3 10 unit subcut BEDTIME 08/26/21 05/21/23 12/10/21 History mL) subcutaneous pen (Lantus Solostar U-100 Insulin) insulin lispro 100 unit/mL 6 unit subcut TIDWM 08/26/21 05/21/23 Unknown History subcutaneous pen (Humalog KwikPen (U-100) Insulin) tacrolimus 1 mg capsule, 2 mg PO BID 08/26/21 05/21/23 12/11/21 History immediate-release tramadol 50 mg tablet 50 mg PO Q6H PRN moderate pain 08/26/21 05/21/23 Unknown History famotidine 40 mg tablet 40 mg PO BEDTIME 12/11/21 05/21/23 12/10/21 History gabapentin 100 mg capsule 100 mg PO BID 12/11/21 05/21/23 12/10/21 History hydroxyzine HCl 10 mg tablet 10 mg PO BID 09/24/22 05/21/23 Unknown History trazodone 50 mg tablet 25 mg PO BEDTIME 09/24/22 05/21/23 Unknown History acetaminophen 500 mg tablet 500 mg PO Q8H PRN Pain 10/20/22 05/21/23 Unknown History ferrous sulfate 325 mg (65 mg 325 mg PO QAM 12/19/22 05/21/23 Unknown History iron) tablet (FeroSul) dulaglutide 1.5 mg/0.5 mL 1.5 mg subcut QWEEK 05/21/23 05/21/23 Unknown History subcutaneous pen injector (Trulicity) metoprolol succinate 25 mg 50 mg PO DAILY 05/21/23 05/21/23 Unknown History tablet,extended release 24 hr (Toprol XL) pantoprazole 20 mg tablet,delayed 20 mg PO QAM 05/21/23 05/21/23 Unknown History release Physical Exam 2 Vital Signs and Narrative: Vital Signs: Last Vital Signs Temp 98.2 F 05/21/23 17:48 Pulse 74 05/21/23 17:48 Resp 16 05/21/23 17:48 BP 157/88 H 05/21/23 17:48 Pulse Ox 97 05/21/23 17:48 O2 Del Method Room Air 05/21/23 17:48 BMI result Body Mass Index 31.0 Constitutional: Alert, in no acute distress. Mental Status: Oriented to person, place and time. Eyes: Pupils are equal, round, and reactive to light. Ear, Nose, and Throat: Oropharynx clear, mucous membranes moist. Ears and nose without deformities. Trachea midline. Respiratory: Clear to auscultation bilaterally. No wheezing, rales, or rhonchi. Cardiovascular: S1, S2 regular. No murmurs, rubs, or gallops. Gastrointestinal: Abdomen soft, non-distended, diffusely tender. Neurologic: Cranial nerves II-XII are grossly intact bilaterally. No focal neurological deficits. Moves all extremities spontaneously. Skin: Warm, dry. Musculoskeletal: No cyanosis or clubbing. Extremities: No edema. Right BKA. Left foot without evidence of diabetic foot ulcers. Psychiatric: Normal mood and affect. Results Labs 05/22/23 05:57 05/22/23 05:57 Labs: Laboratory Results - last 24 hr 05/21/23 05/21/23 05/21/23 14:26 15:34 15:54 MCV 78.9 L MCH 27.2 MCHC 34.4 RDW 13.2 Plt Count 308 MPV 9.9 Immature Gran % (Auto) 0.2 Neut % (Auto) 68.4 Lymph % (Auto) 19.6 L Sawyer % (Auto) 10.2 Eos % (Auto) 1.0 Baso % (Auto) 0.6 Lymph # (Auto) 2.0 Sawyer # (Auto) 1.1 Eos # (Auto) 0.1 Baso # (Auto) 0.1 Abs Immat Gran (auto) 0.02 Absolute Neuts (auto) 7.1 Absolute Nucleated RBC 0.000 Nucleated RBC % (auto) 0.0 VBG pH 7.52 H VBG pCO2 27 VBG pO2 74 VBG HCO3 22 VBG O2 Saturation 96.0 VBG Base Excess 1.5 Anion Gap 19 Estim Creat Clear Calc 27.6 Estimated GFR 24 POC Glucose 323 H Random Glucose 334 H Calcium 10.2 D Total Bilirubin 0.8 AST 16 ALT 14 Alkaline Phosphatase 136 H Total Protein 7.5 Albumin 3.7 Lipase 15 Beta-Hydroxybutyrate 1.25 H Imaging Radiologist's Impressions: Impressions Abdomen/Pelvis CT 05/21/23 16:40 IMPRESSION: Diverticulosis of the colon. No evidence of diverticulitis or colitis. Question mild wall thickening of the rectum/proctitis. Question mild wall thickening of the distal thoracic esophagus and proximal stomach. Atrophic appearing chinik kidneys. Contour abnormality to the lateral midpole of the right kidney probably corresponding to complex cyst when compared with recent ultrasound. Small nonobstructing stone in the lower pole of the transplant kidney in the right lower quadrant. Fleischner guidelines were followed. Assessment and Plan (1) Vomiting: Qualifiers: Nausea presence: with nausea Vomiting type: unspecified Qualified Code(s): R11.2 - Nausea with vomiting, unspecified Status: Acute (2) Abdominal pain: Qualifiers: Abdominal location: generalized Qualified Code(s): R10.84 - Generalized abdominal pain Status: Acute (3) Proctitis: Status: Acute Plan Pt is a Slovenian-speaking 57-year-old male with a PMH significant for?HTN, HLD, insulin-dependent diabetes type 2, hx of osteomyelitis s/p right BKA, s/p kidney transplant on immunosuppressants tacrolimus and prednisone, and mild intermittent asthma who presents to the ED with?1 week of nausea, vomiting, diarrhea, and diffuse abdominal pain that has worsened significantly in the past 3 days. Pt will be admitted to the hospital for treatment further evaluation of intractable nausea, vomiting, diarrhea, and abdominal pain in the setting of likely proctitis. Nausea, vomiting, diarrhea, abdominal pain Patient has been experiencing symptoms for the past week, worse the past 3 days Has not been able to keep anything down, eating and drinking very little Reports daughter with similar symptoms, has been hospitalized at [facility] since last Weday CT shows evidence of possible esophagitis and proctitis Pt does not meet sepsis criteria: HR>90, but no leukocytosis, fever, tachycardia Will cover with ceftriaxone and metronidazole, started 05/21/2023 Pt placed on maintenance fluids Analgesics for pain management Will check GI panel, C diff, stool leukocytes, and stool for occult blood Consider small dose of Immodium once get stool sample Insulin-dependent diabetes type 2 Long hx of being poorly controlled Random glucose was 323 at time presentation Hold home insulin Patient will be placed on SSI, lantus Diabetic diet Chronic musculoskeletal pain, especially of shoulders Patient with [id number] acromioclavicular arthritis of left shoulder, receives cortisone injections, has chronically limited ROM Acetaminophen for pain CKD stage 4 Patient s/p kidney transplant 10 years ago, not on hemodialysis Kidney function stable, at baseline Continue prednisone, tacrolimus Anemia of chronic disease H&H 13.8/40.1, stable at baseline Headaches Acetaminophen for pain Asthma Not in acute exacerbation Continue home inhalers Full Code Attending:?Dr. Hood DVT Prophylaxis: Lovenox Pt will require a hospitalization of at least two nights for treatment of?intractable nausea, vomiting, diarrhea, abdominal pain in the setting of likely proctitis. Patient require IVF, IV antibiotics, and close monitoring of labs. Quality Stroke Does the patient have a stroke diagnosis?: No VTE Prior VTE?: No VTE Risk Level:: Medical - moderate - high VTE Device Contraindication: Treatment Not Indicated VTE Drug Contraindication: N/A - Med Ordered
--- NOTE | 2023-05-21 18:22 | PHA.MEDREC ---
Pharmacy Consult ? Medication Reconciliation Pharmacy has completed the medication reconciliation.
[2023-05-21 18:53] LABS: Glucose, Whole Blood 254 mg/dL (60-115)
[2023-05-21] MEDS: Heparin Sodium,Porcine 5,000 UNIT/ML VIAL 5000 UNIT SUBCUT (19:12)
[2023-05-21] MEDS: cefTRIAXone sodium 1 GM in 0.9 % Sodium Chloride 50 ML IV (19:12)
[2023-05-21 20:52] VITALS: BP 149/93; PULSE 96; RESP 18; TEMP 36.4; O2SAT 100
[2023-05-21] MEDS: Acetaminophen 325 MG TABLET 650 MG PO (21:36)
[2023-05-21] MEDS: metroNIDAZOLE/NS 500 MG/100 ML PIGGYBACK 100 MG IV (21:37)
[2023-05-21 22:54] LABS: Appearance Urine Clear; Color Urine Yellow; Glucose Urine UA >=1000 mg/dL (Negative); Leukocyte Esterase Urine Negative (Negative); Nitrite Urine Negative (Negative); PH 5.5 (5.0-9.0); UMIC TRIGGER UACC YES; Urine Blood Negative (Negative); Urine Ketones 15 mg/dL (Negative); Urine Protein 30 (1+) mg/dL (Neg-Trace)
[2023-05-21 23:02] LABS: Bacteria Urine None Seen (None Seen); RBC Urine 0-2 /HPF (0-2); Squamous Epithelial Cell Urine 0-2 /HPF (0-2); WBC Urine 0-5 /HPF (0-5)
--- NOTE | 2023-05-21 23:30 | PC.NURSE ---
Patient asked for medication for his kidneys but unable to provide medication name - stated he will have someone from home bring his med list.
[2023-05-22] VITALS (7 sets, daily range): BP systolic 152–190; BP diastolic 64–95; PULSE 73–86; RESP 14–20; TEMP 36.4–37; O2SAT 98–99
[2023-05-22] MEDS: Heparin Sodium,Porcine 5,000 UNIT/ML VIAL 5000 UNIT SUBCUT ×3 (02:59→20:22)
[2023-05-22] MEDS: Morphine Sulfate 2 MG/ML CARTRIDGE IVPUSH ×2 (03:06→11:57)
[2023-05-22] MEDS: 0.9 % Sodium Chloride 1,000 ML 100 ML IVCONT ×2 (04:22→14:25)
[2023-05-22 06:41] LABS: Anion Gap 13 (12-20); Blood Urea Nitrogen 21 mg/dL (9-16); Calcium 8.8 mg/dL (8.4-10.2); Carbon Dioxide 21 mmol/L (22-29); Chloride 106 mmol/L (96-108); Estimated Glomerular Filt Rate 29; Glucose Random 240 mg/dL (60-115); Potassium 3.7 mmol/L (3.3-5.1); Sodium 136 mmol/L (135-145)
[2023-05-22 06:43] LABS: Hematocrit 33.6 % (42.0-52.0); Hemoglobin 11.8 g/dl (14.0-18.0); Mean Corpuscular HGB Conc 35.1 g/dl (31.0-36.0); Mean Corpuscular Hemoglobin 28.2 pg (27.0-33.0); Mean Corpuscular Volume 80.4 fL (80.0-98.0); Mean Platelet Volume 10.7 fL (9.4-12.4); Platelet Count 256 X10*3/uL (160-400); Red Blood Count 4.18 X10*6/uL (4.60-5.80); Red Cell Distribution Width 13.1 % (11.0-16.0); White Blood Count 7.5 X10*3/uL (4.8-10.8)
[2023-05-22 08:03] LABS: Glucose, Whole Blood 225 mg/dL (60-115)
[2023-05-22] MEDS: metroNIDAZOLE/NS 500 MG/100 ML PIGGYBACK 100 MG IV ×2 (08:52→20:20)
[2023-05-22] MEDS: ondansetron HCL 4 MG/2 ML VIAL IVPUSH (09:27)
[2023-05-22] MEDS: calcitrioL 0.25 MCG CAPSULE 0.5 MCG PO (10:34)
[2023-05-22] MEDS: Metoprolol Succinate ER 50 MG TAB.ER.24H PO (10:34)
[2023-05-22] MEDS: Ferrous Sulfate 324 MG TABLET.DR PO (10:34)
[2023-05-22] MEDS: Gabapentin 100 MG CAPSULE PO ×2 (10:35→20:21)
[2023-05-22] MEDS: Aspirin Enteric Coated 81 MG TABLET.DR PO (10:35)
[2023-05-22] MEDS: Atorvastatin Calcium 10 MG TABLET PO (10:35)
[2023-05-22] MEDS: amLODIPine Besylate 5 MG TABLET PO (10:35)
[2023-05-22] MEDS: hydrOXYzine HCL 10 MG TABLET PO ×2 (10:35→20:22)
[2023-05-22] MEDS: Sodium Bicarbonate 650 MG TABLET PO ×3 (10:37→20:22)
[2023-05-22 11:16] LABS: Glucose, Whole Blood 261 mg/dL (60-115)
[2023-05-22] MEDS: Insulin Lispro 100 UNIT/ML 3 ML VIAL SUBCUT ×3 (12:05→20:43)
[2023-05-22] MEDS: Loratadine 10 MG TABLET PO (12:24)
[2023-05-22] MEDS: Tacrolimus 1 MG CAPSULE 2 MG PO ×2 (12:24→20:21)
--- NOTE | 2023-05-22 13:05 | P.PNIM_ITS ---
Subjective Subjective Date of Service: 05/22/23 Interval History: Seen and evaluated reports pain all over his abdomen, colicky Had vomiting but no more diarrhea dysphagia in throat Review of Systems Review of Systems: Yes all other systems are reviewed and are negative Physical Exam 2 Vital Signs: Vital Signs: Last Vital Signs Temp 97.8 F 05/22/23 07:37 Pulse 86 05/22/23 10:28 Resp 20 05/22/23 07:37 BP 152/92 H 05/22/23 12:19 Pulse Ox 99 05/22/23 07:37 O2 Del Method Room Air 05/22/23 07:37 BMI result Body Mass Index 31.0 Const: Other: Constitutional : Awake, interactive, not in distress Neck : Normal inspection, Supple Cardiovascular : RRR, no JVP, no lower extremity edema Respiratory : good bilateral air entry, no crackles, wheezes or rhonchi Gastrointestinal: soft, lax, Normal bowel sounds, mild generalized tenderness with no surgical signs Skin : Warm, Dry Neurological : Alert & oriented x3, No focal deficit Objective Data Active Medications Acetaminophen (Acetaminophen 325 Mg Tablet) 650 mg PO Q6H PRN PRN Reason: Pain, Mild (Pain Scale 1-3) Last Admin: 05/21/23 21:36 Dose: 650 mg Documented By: JAILYN Albuterol Sulfate (Albuterol Sulfate (0.083%) 2.5 Mg/3 Ml Vial.Neb) 2.5 mg INHALE TID PRN PRN Reason: Respiratory Distress Amlodipine Besylate (Amlodipine Besylate 5 Mg Tablet) 5 mg PO DAILY [facility]; Protocol Last Admin: 05/22/23 10:35 Dose: 5 mg Documented By: LUZ ELENA Aspirin (Aspirin Enteric Coated 81 Mg Tablet.) 81 mg PO DAILY [facility] Last Admin: 05/22/23 10:35 Dose: 81 mg Documented By: LUZ ELENA Atorvastatin Calcium (Atorvastatin Calcium 10 Mg Tablet) 10 mg PO DAILY [facility] Last Admin: 05/22/23 10:35 Dose: 10 mg Documented By: LUZ ELENA Belladonna Alkaloids/Phenobarbital (Phenobarb/Hyoscy/Atropine/Scop 10 Ml Elixir) 5 ml PO QID [facility] Benzonatate (Benzonatate 100 Mg Capsule) 100 mg PO TID PRN PRN Reason: Cough Calcitriol (Calcitriol 0.25 Mcg Capsule) 0.5 mcg PO DAILY [facility] Last Admin: 05/22/23 10:34 Dose: 0.5 mcg Documented By: LUZ ELENA Famotidine (Famotidine 20 Mg Tablet) 40 mg PO BEDTIME [facility] Ferrous Sulfate (Ferrous Sulfate 324 Mg Tablet.) 324 mg PO DAILY [facility] Last Admin: 05/22/23 10:34 Dose: 324 mg Documented By: LUZ ELENA Gabapentin (Gabapentin 100 Mg Capsule) 100 mg PO BID [facility] Last Admin: 05/22/23 10:35 Dose: 100 mg Documented By: LUZ ELENA Heparin Sodium (Porcine) (Heparin Sodium,Porcine 5,000 Unit/Ml Vial) 5,000 unit SUBCUT Q8H [facility] Last Admin: 05/22/23 12:24 Dose: 5,000 unit Documented By: LUZ ELENA Hydroxyzine HCl (Hydroxyzine Hcl 10 Mg Tablet) 10 mg PO BID [facility] Last Admin: 05/22/23 10:35 Dose: 10 mg Documented By: LUZ ELENA Sodium Chloride (Ns) 1,000 mls @ 100 mls/hr IVCONT .Q10H [facility] Last Admin: 05/22/23 04:22 Dose: 100 mls/hr Documented By: LOBO Ceftriaxone Sodium 1 gm/ (Sodium Chloride) 50 mls @ 100 mls/hr IV Q24H [facility] Last Infusion: 05/21/23 21:01 Dose: Infused Documented By: DOBROB Metronidazole (Flagyl) 500 mg in 100 mls @ 100 mls/hr IV Q12H [facility] Last Infusion: 05/22/23 10:41 Dose: Infused Documented By: LUZ ELENA Insulin Glargine (Insulin Glargine,Hum.Rec.Anlog 100 Unit/Ml 10 Ml Vial) 10 unit SUBCUT BEDTIME [facility] Insulin Human Lispro (Insulin Lispro 100 Unit/Ml 3 Ml Vial) 0 unit SUBCUT QIDACHS [facility]; Protocol Last Admin: 05/22/23 12:05 Dose: 6 unit Documented By: LUZ ELENA Metoprolol Succinate (Metoprolol Succinate Er 50 Mg Tab.Er.24h) 50 mg PO DAILY [facility]; Protocol Last Admin: 05/22/23 10:34 Dose: 50 mg Documented By: LUZ ELENA Morphine Sulfate (Morphine Sulfate 2 Mg/Ml Cartridge) 2 mg IVPUSH Q4H PRN; Protocol PRN Reason: Pain, Severe (Pain Scale 7-10) Last Admin: 05/22/23 11:57 Dose: 2 mg Documented By: TIANA Omeprazole (Omeprazole 20 Mg Capsule.Dr) 20 mg PO DAILY@0630 [facility] Ondansetron HCl (Ondansetron Hcl 4 Mg/2 Ml Vial) 4 mg IVPUSH Q8H PRN PRN Reason: Nausea and Vomiting Last Admin: 05/22/23 09:27 Dose: 4 mg Documented By: TIANA Sodium Bicarbonate (Sodium Bicarbonate 650 Mg Tablet) 650 mg PO TID [facility] Last Admin: 05/22/23 10:37 Dose: 650 mg Documented By: LUZ ELENA Sodium Chloride (0.9 % Sodium Chloride Flush 3 Ml Syringe) 3 ml IVFLUSH QSHIFT [facility] Last Admin: 05/22/23 10:00 Dose: Not Given Documented By: TIANA Non-Admin Reason: IV Running Tacrolimus (Tacrolimus 1 Mg Capsule) 2 mg PO BID [facility] Last Admin: 05/22/23 12:24 Dose: 2 mg Documented By: LUZ ELENA Comments: late as it was not loaded in the pyxis Tramadol HCl (Tramadol Hcl 50 Mg Tablet) 50 mg PO Q6H PRN PRN Reason: moderate pain Trazodone HCl (Trazodone Hcl 25 Mg Halftab) 25 mg PO BEDTIME [facility] Labs 05/22/23 05:57 05/22/23 05:57 Labs: Laboratory Results - last 24 hr 05/21/23 05/21/23 05/21/23 14:26 15:34 15:54 MCV 78.9 L MCH 27.2 MCHC 34.4 RDW 13.2 Plt Count 308 MPV 9.9 Immature Gran % (Auto) 0.2 Neut % (Auto) 68.4 Lymph % (Auto) 19.6 L [place] % (Auto) 10.2 Eos % (Auto) 1.0 Baso % (Auto) 0.6 Lymph # (Auto) 2.0 [place] # (Auto) 1.1 Eos # (Auto) 0.1 Baso # (Auto) 0.1 Abs Immat Gran (auto) 0.02 Absolute Neuts (auto) 7.1 Absolute Nucleated RBC 0.000 Nucleated RBC % (auto) 0.0 VBG pH 7.52 H VBG pCO2 27 VBG pO2 74 VBG HCO3 22 VBG O2 Saturation 96.0 VBG Base Excess 1.5 Anion Gap 19 Estim Creat Clear Calc 27.6 Estimated GFR 24 POC Glucose 323 H Random Glucose 334 H Calcium 10.2 D Total Bilirubin 0.8 AST 16 ALT 14 Alkaline Phosphatase 136 H Total Protein 7.5 Albumin 3.7 Lipase 15 Beta-Hydroxybutyrate 1.25 H Urine Color Urine Appearance Urine pH Ur Specific [place] Urine Protein Urine Glucose (UA) Urine Ketones Urine Blood Urine Nitrite Ur Leukocyte Esterase Urine RBC Urine WBC Ur Squamous Epith Cells Urine Bacteria Hyaline Casts 05/21/23 05/21/23 05/22/23 18:50 22:45 05:57 MCV 80.4 MCH 28.2 MCHC 35.1 RDW 13.1 Plt Count 256 MPV 10.7 Immature Gran % (Auto) Neut % (Auto) Lymph % (Auto) [place] % (Auto) Eos % (Auto) Baso % (Auto) Lymph # (Auto) [place] # (Auto) Eos # (Auto) Baso # (Auto) Abs Immat Gran (auto) Absolute Neuts (auto) Absolute Nucleated RBC 0.000 Nucleated RBC % (auto) 0.0 VBG pH VBG pCO2 VBG pO2 VBG HCO3 VBG O2 Saturation VBG Base Excess Anion Gap 13 Estim Creat Clear Calc 33.0 Estimated GFR 29 POC Glucose 254 H Random Glucose 240 H Calcium 8.8 D Total Bilirubin AST ALT Alkaline Phosphatase Total Protein Albumin Lipase Beta-Hydroxybutyrate Urine Color Yellow Urine Appearance Clear Urine pH 5.5 Ur Specific [place] 1.020 Urine Protein 30 (1+) H Urine Glucose (UA) >=1000 H Urine Ketones 15 Urine Blood Negative Urine Nitrite Negative Ur Leukocyte Esterase Negative Urine RBC 0-2 Urine WBC 0-5 Ur Squamous Epith Cells 0-2 Urine Bacteria None Seen Hyaline Casts 3-5 05/22/23 05/22/23 07:58 11:12 MCV MCH MCHC RDW Plt Count MPV Immature Gran % (Auto) Neut % (Auto) Lymph % (Auto) [place] % (Auto) Eos % (Auto) Baso % (Auto) Lymph # (Auto) [place] # (Auto) Eos # (Auto) Baso # (Auto) Abs Immat Gran (auto) Absolute Neuts (auto) Absolute Nucleated RBC Nucleated RBC % (auto) VBG pH VBG pCO2 VBG pO2 VBG HCO3 VBG O2 Saturation VBG Base Excess Anion Gap Estim Creat Clear Calc Estimated GFR POC Glucose 225 H 261 H Random Glucose Calcium Total Bilirubin AST ALT Alkaline Phosphatase Total Protein Albumin Lipase Beta-Hydroxybutyrate Urine Color Urine Appearance Urine pH Ur Specific [place] Urine Protein Urine Glucose (UA) Urine Ketones Urine Blood Urine Nitrite Ur Leukocyte Esterase Urine RBC Urine WBC Ur Squamous Epith Cells Urine Bacteria Hyaline Casts Assessment and Plan (1) Proctitis: Status: Acute (2) Esophagitis: Status: Acute (3) Abdominal pain: Status: Acute Plan Pt is a Pashto-speaking 57-year-old male with a PMH significant for?HTN, HLD, insulin-dependent diabetes type 2, hx of osteomyelitis s/p right BKA, s/p kidney transplant on immunosuppressants tacrolimus and prednisone, and mild intermittent asthma who presents to the ED with?1 week of nausea, vomiting, diarrhea, and diffuse abdominal pain that has worsened significantly in the past 3 days. Pt will be admitted to the hospital for treatment further evaluation of intractable nausea, vomiting, diarrhea, and abdominal pain in the setting of likely proctitis. Abdominal pain 2/2 Proctatitis, Eshophagitis not improving , colicky CT shows evidence of possible esophagitis and proctitis Continue ceftriaxone and metronidazole, started 05/21/2023 IVF pain management Pending GI panel, C diff, stool leukocytes, and stool for occult blood GI consult Clear liquids, advance as tolerated Hyperglycemia in Insulin-dependent diabetes type 2 Long hx of being poorly controlled Random glucose was 323 at time presentation Hold home insulin Patient will be placed on SSI, lantus Diabetic diet Chronic musculoskeletal pain, especially of shoulders Patient with [id number] acromioclavicular arthritis of left shoulder, receives cortisone injections, has chronically limited ROM Acetaminophen for pain CKD stage 4 Patient s/p kidney transplant 10 years ago, not on hemodialysis Kidney function stable, at baseline Continue prednisone, tacrolimus Anemia of chronic disease H&H 13.8/40.1, stable at baseline Headaches Acetaminophen for pain Asthma Not in acute exacerbation Continue home inhalers Full Code DVT Prophylaxis: Lovenox Pt will require a hospitalization of overnight for treatment of?intractable nausea, vomiting, diarrhea, abdominal pain in the setting of likely proctitis. Patient require IVF, IV antibiotics, and close monitoring of labs. Quality Stroke Does the patient have a stroke diagnosis?: No VTE Prior VTE?: No VTE Risk Level:: Medical - moderate - high VTE Device Contraindication: Treatment Not Indicated VTE Drug Contraindication: N/A - Med Ordered
[2023-05-22] MEDS: PHENobarb/Hyoscy/Atropine/Scop 10 ML ELIXIR 5 ML PO ×3 (14:23→20:20)
[2023-05-22 16:44] LABS: Glucose, Whole Blood 223 mg/dL (60-115)
--- NOTE | 2023-05-22 18:09 | P.EN_ITS ---
Event Note Date of Service: 05/22/23 Event Note: GI Consult-History from patient with a medical legal investigator. Imp: Acute gastroenteritis with associated N/V and diarrhea. I suspect the CT changes of the GI tract are as a result of the gastroenteritis with the N/V and diarrhea. He reports that he has improved significantly since admission and is tolerating po liquids without any further N/V and just minimal diarrhea. His abdominal exam is benign. Rec: Continued supportive care. Advance diet on 06/23 if he remains stable overnight. Agree with checking stools. Could D/C antibiotics by 05/23 if remains stable and w/u is negative. Continue PPI. I don't think endoscopic evaluation is presently required. Please call if things don't improve or if they worsen. Thanks Time Spent With Patient Time: Total time managing care of this patient today ____ minutes.
[2023-05-22] MEDS: cefTRIAXone sodium 1 GM in 0.9 % Sodium Chloride 50 ML IV (19:16)
[2023-05-22 19:55] LABS: OBS Int Ctl Valid YES; OBS1 NEGATIVE (NEGATIVE)
[2023-05-22] MEDS: traZODone HCL 25 MG HALFTAB PO (20:22)
[2023-05-22] MEDS: Famotidine 20 MG TABLET 40 MG PO (20:22)
[2023-05-22 20:27] LABS: CDiff Gene PCR POSITIVE (Negative)
[2023-05-22 20:28] LABS: Glucose, Whole Blood 210 mg/dL (60-115)
[2023-05-22] MEDS: Insulin Glargine,Hum.rec.anlog 100 UNIT/ML 10 ML VIAL 10 UNIT SUBCUT (20:43)
[2023-05-22 21:00] LABS: Leukocytes Stool Qualitative NEGATIVE (NEGATIVE)
[2023-05-22 21:06] LABS: CDIFF Internal ctrl Dots and bkg OK (V); CDiff Toxin Negative (Negative)
--- NOTE | 2023-05-22 21:28 | PC.NURSE ---
C.diff positive,note states likely colonization,Dr. Ramirez notifed,contact precautions in place
--- NOTE | 2023-05-22 22:02 | CONS_ITS ---
DATE OF SERVICE: 05/22/2023 REASON FOR CONSULTATION: Nausea, vomiting, diarrhea, and abnormal CT scan of GI tract. HISTORY OF PRESENT ILLNESS: This has been obtained from the patient with a medical instructor, and from the medical record. The patient is a 57-year-old male with underlying medical problems of previous renal transplant and diabetes, who presents with fairly acute onset of abdominal discomfort, nausea, vomiting, and diarrhea. He describes that prior to the onset of those symptoms he was basically in his usual state of health without any chronic GI complaints other than occasional symptoms of gastritis, for which he appears to be on both famotidine and pantoprazole as an outpatient. The patient reports the onset of GI symptoms with nausea, vomiting, and diarrhea. He did notice some small flecks of blood in the vomit. There was no hematochezia nor melena. He did have some abdominal cramps and discomfort, but no signs of jaundice. He denies any preceding travel, ill contacts, antibiotic use, nor suspicious food intake. Since coming to the hospital yesterday, he does report that he is feeling much better today and has been tolerating liquids. He has had no further nausea nor vomiting and reports just scant diarrhea. There have been no further signs of bleeding. The patient has been afebrile. He presently denies any odynophagia nor dysphagia with liquids. He denies tobacco nor alcohol use. MEDICATIONS: His medications at home included acetaminophen, albuterol, aspirin, amlodipine, atorvastatin, vitamin D, Trulicity, famotidine, iron, gabapentin, hydroxyzine, insulin, lidocaine patch, metoprolol, pantoprazole, tacrolimus, sodium bicarbonate, tramadol, trazodone. His medications here in the hospital include acetaminophen, albuterol, amlodipine, aspirin, atorvastatin, benzonatate, Rocaltrol, IV ceftriaxone, famotidine, ferrous sulfate, gabapentin, SQ heparin, hydroxyzine, Claritin, metoprolol, metronidazole, morphine p.r.n., omeprazole, Zofran, sodium bicarbonate, and . PAST MEDICAL HISTORY: Renal transplant. Cholecystectomy. 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 He does have diabetes mellitus, previous renal failure with above-mentioned renal transplant, but now with some renal insufficiency. Hypertension, hyperlipidemia, asthma, osteomyelitis. Nonrevealing upper endoscopy and sigmoidoscopy with me in approximately 2002. SOCIAL HISTORY: He lives by himself. He denies tobacco or alcohol. FAMILY HISTORY: Noncontributory. REVIEW OF SYSTEMS: CONSTITUTIONAL: Prior to becoming ill, he was reportedly at his baseline. He typically has good appetite. CARDIAC: No chest pain. PULMONARY: No cough or hemoptysis. GI: As above. URINARY: No dysuria, no hematuria. NEUROLOGIC: No headache or seizures. PHYSICAL EXAMINATION: GENERAL: The patient is a pleasant, alert, comfortable appearing male, sitting in the chair. SKIN: Warm and dry. Anicteric sclerae. Moist mucous membranes. NECK: Supple. CHEST: Clear. CARDIAC: Normal S1, S2. ABDOMEN: Soft, nondistended, nontender with normal bowel sounds. NEUROLOGIC: He is alert, oriented, and answers all questions appropriately. LABORATORY DATA: White blood cell count 7.5, hemoglobin 11.8, MCV 80, platelets 256,000. Sodium 136, potassium 3.7, chloride 106, CO2 21, BUN 21, creatinine 2.3. Normal LFTs except for an alkaline phosphatase of 136. Lipase 15. COVID is negative. Stool specimens have been ordered, but thus far have not yet been sent due to what I think is the fact that he has not had any further diarrhea. IMAGING STUDIES: CT scan showed some inflammatory changes in the rectal area and distal esophagus, but overall that was nonspecific and not particularly significant. There was no sign of any bowel obstruction. IMPRESSION: Given the patient's clinical history, I suspect this was some type of self-limited gastroenteritis, probably viral in nature. At this point, he appears to be clinically improving with supportive care. I do not think this represents anything such as peptic ulcer disease or inflammatory bowel disease. At this point, he is tolerating p.o. liquids and his abdominal exam is benign. I will continue supportive care. If things are stable overnight and tomorrow, I would then advance diet as tolerated. I would agree with checking stool specimens if diarrhea recurs. I think his antibiotics can be stopped by tomorrow if he continues to improve as well. I will continue his PPI. I do not think endoscopic evaluation is presently required unless things were to persist or worsen. This has been discussed with him in detail and he is comfortable with that plan. Thank you for the consultation. MD MILLA Loyd/MOLLY / [phone] MTDParveen
[2023-05-23] MEDS: 0.9 % Sodium Chloride 1,000 ML 100 ML IVCONT ×2 (00:39→13:24)
[2023-05-23 03:17] VITALS: BP 143/73; PULSE 75; RESP 18; TEMP 36.4; O2SAT 98
[2023-05-23] MEDS: Omeprazole 20 MG CAPSULE.DR PO (05:43)
[2023-05-23] MEDS: Heparin Sodium,Porcine 5,000 UNIT/ML VIAL 5000 UNIT SUBCUT ×2 (06:29→19:29)
[2023-05-23 06:32] LABS: Hemoglobin 11.4 g/dl (14.0-18.0); Mean Corpuscular HGB Conc 34.5 g/dl (31.0-36.0); Mean Corpuscular Hemoglobin 27.5 pg (27.0-33.0); Mean Corpuscular Volume 79.7 fL (80.0-98.0); Mean Platelet Volume 10.3 fL (9.4-12.4); Platelet Count 234 X10*3/uL (160-400); Red Blood Count 4.14 X10*6/uL (4.60-5.80); White Blood Count 5.2 X10*3/uL (4.8-10.8)
[2023-05-23 06:42] LABS: Estimated Average Glucose 194 mg/dL; Hemoglobin A1c % 8.4 % (<6.0)
[2023-05-23 06:44] LABS: Anion Gap 12 (12-20); Blood Urea Nitrogen 16 mg/dL (9-16); Calcium 8.4 mg/dL (8.4-10.2); Carbon Dioxide 22 mmol/L (22-29); Chloride 108 mmol/L (96-108); Creatinine Clr Calc Pharmacy 35.9; Estimated Glomerular Filt Rate 33; Glucose Random 199 mg/dL (60-115); Potassium 3.5 mmol/L (3.3-5.1); Sodium 138 mmol/L (135-145)
[2023-05-23 07:06] VITALS: BP 173/88; PULSE 80; RESP 18; TEMP 36.5; O2SAT 99
[2023-05-23 07:16] LABS: Glucose, Whole Blood 177 mg/dL (60-115)
[2023-05-23] MEDS: metroNIDAZOLE/NS 500 MG/100 ML PIGGYBACK 100 MG IV ×2 (07:59→19:29)
[2023-05-23] MEDS: PHENobarb/Hyoscy/Atropine/Scop 10 ML ELIXIR 5 ML PO ×4 (07:59→19:57)
[2023-05-23] MEDS: Ferrous Sulfate 324 MG TABLET.DR PO (08:00)
[2023-05-23] MEDS: Aspirin Enteric Coated 81 MG TABLET.DR PO (08:00)
[2023-05-23] MEDS: Atorvastatin Calcium 10 MG TABLET PO (08:00)
[2023-05-23] MEDS: calcitrioL 0.25 MCG CAPSULE 0.5 MCG PO (08:00)
[2023-05-23] MEDS: Metoprolol Succinate ER 50 MG TAB.ER.24H PO (08:00)
[2023-05-23] MEDS: Insulin Lispro 100 UNIT/ML 3 ML VIAL SUBCUT ×4 (08:01→19:49)
[2023-05-23] MEDS: Tacrolimus 1 MG CAPSULE 2 MG PO ×2 (08:01→19:50)
[2023-05-23] MEDS: Gabapentin 100 MG CAPSULE PO ×2 (08:01→19:30)
[2023-05-23] MEDS: hydrOXYzine HCL 10 MG TABLET PO ×2 (08:01→19:30)
[2023-05-23] MEDS: Sodium Bicarbonate 650 MG TABLET PO ×3 (08:01→19:50)
[2023-05-23] MEDS: amLODIPine Besylate 5 MG TABLET PO (08:01)
[2023-05-23 09:20] LABS: Adenovirus F 40/41 Not Detected (Not Detect.); Astrovirus Not Detected (Not Detect.); Campylobacter Not Detected (Not Detect.); Cryptosporidium Not Detected (Not Detect.); Cyclospora cayetanensis Not Detected (Not Detect.); E. coli EAEC Not Detected (Not Detect.); E. coli EPEC Not Detected (Not Detect.); E. coli ETEC Not Detected (Not Detect.); E. coli STEC Not Detected (Not Detect.); Entamoeba histolytica Not Detected (Not Detect.); Giardia lamblia Not Detected (Not Detect.); Norovirus GI/GII Not Detected (Not Detect.); Plesiomonas shigelloides Not Detected (Not Detect.); Rotavirus A Not Detected (Not Detect.); Salmonella Not Detected (Not Detect.); Sapovirus Not Detected (Not Detect.); Shigella sp./EIEC Not Detected (Not Detect.); Vibrio Not Detected (Not Detect.); Vibrio Cholerae Not Detected (Not Detect.); Yersinia enterocolitica Not Detected (Not Detect.)
[2023-05-23 11:11] VITALS: BP 169/87; PULSE 76; RESP 18; O2SAT 100
[2023-05-23 11:16] LABS: Glucose, Whole Blood 165 mg/dL (60-115)
--- NOTE | 2023-05-23 11:27 | HO.PM.IMPN ---
Subjective Subjective Date of Service: 05/23/23 Interval History: Seen and evaluated pain improved significantly no more diarrhea Review of Systems Review of Systems: Yes all other systems are reviewed and are negative Physical Exam Vital Signs: Vital Signs: Last Vital Signs Temp 97.7 F 05/23/23 07:06 Pulse 76 05/23/23 11:11 Resp 18 05/23/23 11:11 BP 169/87 H 05/23/23 11:11 Pulse Ox 100 05/23/23 11:11 O2 Del Method Room Air 05/23/23 11:11 BMI result Body Mass Index 31.0 Const: Other: Constitutional : Awake, interactive, not in distress Neck : Normal inspection, Supple Cardiovascular : RRR, no JVP, no lower extremity edema Respiratory : good bilateral air entry, no crackles, wheezes or rhonchi Gastrointestinal: soft, lax, Normal bowel sounds, no tenderness with no surgical signs Skin : Warm, Dry Neurological : Alert & oriented x3, No focal deficit Objective Data Active Medications Acetaminophen (Acetaminophen 325 Mg Tablet) 650 mg PO Q6H PRN PRN Reason: Pain, Mild (Pain Scale 1-3) Last Admin: 05/21/23 21:36 Dose: 650 mg Documented By: JAILYN Albuterol Sulfate (Albuterol Sulfate (0.083%) 2.5 Mg/3 Ml Vial.Neb) 2.5 mg INHALE TID PRN PRN Reason: Respiratory Distress Amlodipine Besylate (Amlodipine Besylate 5 Mg Tablet) 5 mg PO DAILY [facility]; Protocol Last Admin: 05/23/23 08:01 Dose: 5 mg Documented By: TIANA Aspirin (Aspirin Enteric Coated 81 Mg Tablet.) 81 mg PO DAILY [facility] Last Admin: 05/23/23 08:00 Dose: 81 mg Documented By: TIANA Atorvastatin Calcium (Atorvastatin Calcium 10 Mg Tablet) 10 mg PO DAILY [facility] Last Admin: 05/23/23 08:00 Dose: 10 mg Documented By: TIANA Belladonna Alkaloids/Phenobarbital (Phenobarb/Hyoscy/Atropine/Scop 10 Ml Elixir) 5 ml PO QID [facility] Last Admin: 05/23/23 07:59 Dose: 5 ml Documented By: TIANA Benzonatate (Benzonatate 100 Mg Capsule) 100 mg PO TID PRN PRN Reason: Cough Calcitriol (Calcitriol 0.25 Mcg Capsule) 0.5 mcg PO DAILY [facility] Last Admin: 05/23/23 08:00 Dose: 0.5 mcg Documented By: TIANA Famotidine (Famotidine 20 Mg Tablet) 40 mg PO BEDTIME [facility] Last Admin: 05/22/23 20:22 Dose: 40 mg Documented By: MO Ferrous Sulfate (Ferrous Sulfate 324 Mg Tablet.) 324 mg PO DAILY [facility] Last Admin: 05/23/23 08:00 Dose: 324 mg Documented By: TIANA Gabapentin (Gabapentin 100 Mg Capsule) 100 mg PO BID [facility] Last Admin: 05/23/23 08:01 Dose: 100 mg Documented By: TIANA Heparin Sodium (Porcine) (Heparin Sodium,Porcine 5,000 Unit/Ml Vial) 5,000 unit SUBCUT Q12H [facility] Last Admin: 05/23/23 06:29 Dose: 5,000 unit Documented By: LOBO Hydroxyzine HCl (Hydroxyzine Hcl 10 Mg Tablet) 10 mg PO BID [facility] Last Admin: 05/23/23 08:01 Dose: 10 mg Documented By: TIANA Sodium Chloride (Ns) 1,000 mls @ 100 mls/hr IVCONT .Q10H [facility] Last Admin: 05/23/23 00:39 Dose: 100 mls/hr Documented By: LOBO Metronidazole (Flagyl) 500 mg in 100 mls @ 100 mls/hr IV Q12H [facility] Last Infusion: 05/23/23 09:09 Dose: Infused Documented By: TIANA Insulin Glargine (Insulin Glargine,Hum.Rec.Anlog 100 Unit/Ml 10 Ml Vial) 10 unit SUBCUT BEDTIME [facility] Last Admin: 05/22/23 20:43 Dose: 10 unit Documented By: MO Insulin Human Lispro (Insulin Lispro 100 Unit/Ml 3 Ml Vial) 0 unit SUBCUT QIDACHS [facility]; Protocol Last Admin: 05/23/23 08:01 Dose: 2 unit Documented By: TIANA Metoprolol Succinate (Metoprolol Succinate Er 50 Mg Tab.Er.24h) 50 mg PO DAILY [facility]; Protocol Last Admin: 05/23/23 08:00 Dose: 50 mg Documented By: TIANA Morphine Sulfate (Morphine Sulfate 2 Mg/Ml Cartridge) 2 mg IVPUSH Q4H PRN; Protocol PRN Reason: Pain, Severe (Pain Scale 7-10) Last Admin: 05/22/23 11:57 Dose: 2 mg Documented By: TIANA Omeprazole (Omeprazole 20 Mg Capsule.Dr) 20 mg PO DAILY@0630 [facility] Last Admin: 05/23/23 05:43 Dose: 20 mg Documented By: LOBO Ondansetron HCl (Ondansetron Hcl 4 Mg/2 Ml Vial) 4 mg IVPUSH Q8H PRN PRN Reason: Nausea and Vomiting Last Admin: 05/22/23 09:27 Dose: 4 mg Documented By: TIANA Sodium Bicarbonate (Sodium Bicarbonate 650 Mg Tablet) 650 mg PO TID [facility] Last Admin: 05/23/23 08:01 Dose: 650 mg Documented By: TIANA Sodium Chloride (0.9 % Sodium Chloride Flush 3 Ml Syringe) 3 ml IVFLUSH QSHIFT [facility] Last Admin: 05/23/23 08:01 Dose: Not Given Documented By: TIANA Non-Admin Reason: IV Running Tacrolimus (Tacrolimus 1 Mg Capsule) 2 mg PO BID [facility] Last Admin: 05/23/23 08:01 Dose: 2 mg Documented By: TIANA Tramadol HCl (Tramadol Hcl 50 Mg Tablet) 50 mg PO Q6H PRN PRN Reason: moderate pain Trazodone HCl (Trazodone Hcl 25 Mg Halftab) 25 mg PO BEDTIME [facility] Last Admin: 05/22/23 20:22 Dose: 25 mg Documented By: BEIT Labs 05/23/23 05:40 05/23/23 05:40 Labs: Laboratory Results - last 24 hr 05/22/23 05/22/23 05/22/23 16:40 19:20 19:44 MCV MCH MCHC RDW Plt Count MPV Absolute Nucleated RBC Nucleated RBC % (auto) Anion Gap Estim Creat Clear Calc Estimated GFR POC Glucose 223 H 210 H Random Glucose Estimat Average Glucose Hemoglobin A1c % Calcium Stool Occult Blood NEGATIVE Stool Leukocytes, Qual NEGATIVE Stl C. cayetanensis PCR Not Detected Stool Rotavirus A PCR Not Detected Stl Adenov F 40 PCR Not Detected Stool Astrovirus (PCR) Not Detected Stool Campylobacter PCR Not Detected Stool Cryptosporidium PCR Not Detected Stl Sh Tox Pr E STEC PCR Not Detected Stool E coli O157 PCR Not applicable Stl Enterotoxigenic E PCR Not Detected Stool EPEC (PCR) Not Detected Stool EAEC (PCR) Not Detected Stl E. histolytica PCR Not Detected Stool Giardia Lamblia PCR Not Detected Stl P. shigelloides PCR Not Detected Stool Salmonella PCR Not Detected Stool Sapovirus (PCR) Not Detected Stl Shigella/EIEC PCR Not Detected St Y.enterocolitica PCR Not Detected Stool Vibrio (PCR) Not Detected Stl Vibrio cholerae PCR Not Detected Stl Norovirus GI/GII PCR Not Detected C. difficile Tox B Gene POSITIVE A* C. difficile Toxin A&B Negative C. difficile Interpret SEE NOTE 05/23/23 05/23/23 05/23/23 05:40 07:12 11:12 MCV 79.7 L MCH 27.5 MCHC 34.5 RDW 13.0 Plt Count 234 MPV 10.3 Absolute Nucleated RBC 0.000 Nucleated RBC % (auto) 0.0 Anion Gap 12 Estim Creat Clear Calc 35.9 Estimated GFR 33 POC Glucose 177 H 165 H Random Glucose 199 H Estimat Average Glucose 194 Hemoglobin A1c % 8.4 H Calcium 8.4 Stool Occult Blood Stool Leukocytes, Qual Stl C. cayetanensis PCR Stool Rotavirus A PCR Stl Adenov F 40/41 PCR Stool Astrovirus (PCR) Stool Campylobacter PCR Stool Cryptosporidium PCR Stl Sh Tox Pr E STEC PCR Stool E coli O157 PCR Stl Enterotoxigenic E PCR Stool EPEC (PCR) Stool EAEC (PCR) Stl E. histolytica PCR Stool Giardia Lamblia PCR Stl P. shigelloides PCR Stool Salmonella PCR Stool Sapovirus (PCR) Stl Shigella/EIEC PCR St Y.enterocolitica PCR Stool Vibrio (PCR) Stl Vibrio cholerae PCR Stl Norovirus GI/GII PCR C. difficile Tox B Gene C. difficile Toxin A&B C. difficile Interpret Assessment and Plan (1) Proctitis: Status: Acute (2) Esophagitis: Status: Acute (3) Vomiting: Status: Acute Plan Pt is a Namibian-speaking 57-year-old male with a PMH significant for?HTN, HLD, insulin-dependent diabetes type 2, hx of osteomyelitis s/p right BKA, s/p kidney transplant on immunosuppressants tacrolimus and prednisone, and mild intermittent asthma who presents to the ED with?1 week of nausea, vomiting, diarrhea, and diffuse abdominal pain that has worsened significantly in the past 3 days. Pt will be admitted to the hospital for treatment further evaluation of intractable nausea, vomiting, diarrhea, and abdominal pain in the setting of likely proctitis. Abdominal pain 2/2 Proctatitis, Eshophagitis improving CT shows evidence of possible esophagitis and proctitis Positive C.Diff antigen but not toxin DC ceftriaxone, continue metronidazole, started 05/21/2023 IVF pain management Pending GI panel, negative stool leukocytes, and stool for occult blood GI consult appreciated advance diet to regular Hyperglycemia in Insulin-dependent diabetes type 2 Long hx of being poorly controlled Random glucose was 323 at time presentation Hold home insulin Patient will be placed on SSI, lantus Diabetic diet Chronic musculoskeletal pain, especially of shoulders Patient with [id number] acromioclavicular arthritis of left shoulder, receives cortisone injections, has chronically limited ROM Acetaminophen for pain CKD stage 4 Patient s/p kidney transplant 10 years ago, not on hemodialysis Kidney function stable, at baseline Continue prednisone, tacrolimus Anemia of chronic disease H&H 13.8/40.1, stable at baseline Headaches Acetaminophen for pain Asthma Not in acute exacerbation Continue home inhalers Full Code DVT Prophylaxis: Lovenox Pt will require a hospitalization of overnight for treatment of?gastroenteritis starting diet, Patient require IVF, IV antibiotics, and close monitoring of labs. Quality Stroke Does the patient have a stroke diagnosis?: No VTE Prior VTE?: No VTE Risk Level:: Medical - moderate - high VTE Device Contraindication: Treatment Not Indicated VTE Drug Contraindication: N/A - Med Ordered
--- NOTE | 2023-05-23 12:42 | MHC.CM.PN ---
CM MET WITH PT WITH THE ASSISTANCE OF A VERIFIER OPERATOR. 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
[2023-05-23 15:29] VITALS: BP 168/95; PULSE 73; RESP 18; TEMP 36.4; O2SAT 100
[2023-05-23 16:12] LABS: Glucose, Whole Blood 203 mg/dL (60-115)
[2023-05-23] MEDS: 0.9 % Sodium Chloride Flush 3 ML SYRINGE IVFLUSH (16:38)
[2023-05-23] MEDS: Famotidine 20 MG TABLET 40 MG PO (19:30)
[2023-05-23 19:43] LABS: Glucose, Whole Blood 153 mg/dL (60-115)
[2023-05-23] MEDS: Insulin Glargine,Hum.rec.anlog 100 UNIT/ML 10 ML VIAL 10 UNIT SUBCUT (19:50)
[2023-05-23] MEDS: traZODone HCL 25 MG HALFTAB PO (19:50)
[2023-05-23 20:00] VITALS: BP 143/81; PULSE 96; RESP 18; TEMP 36.3; O2SAT 100
[2023-05-24] MEDS: 0.9 % Sodium Chloride 1,000 ML 100 ML IVCONT (01:53)
[2023-05-24 03:51] VITALS: BP 167/72; PULSE 78; RESP 18; TEMP 37.3; O2SAT 99
[2023-05-24] MEDS: Omeprazole 20 MG CAPSULE.DR PO (06:10)
[2023-05-24 07:06] LABS: Anion Gap 13 (12-20); Blood Urea Nitrogen 14 mg/dL (9-16); Calcium 8.4 mg/dL (8.4-10.2); Carbon Dioxide 21 mmol/L (22-29); Chloride 109 mmol/L (96-108); Creatinine Clr Calc Pharmacy 35.6; Estimated Glomerular Filt Rate 32; Glucose Random 247 mg/dL (60-115); Potassium 3.5 mmol/L (3.3-5.1); Sodium 139 mmol/L (135-145)
[2023-05-24 07:59] LABS: Glucose, Whole Blood 233 mg/dL (60-115)
[2023-05-24 08:02] VITALS: BP 120/70; PULSE 88; RESP 20; TEMP 36.6; O2SAT 98
[2023-05-24] MEDS: Heparin Sodium,Porcine 5,000 UNIT/ML VIAL 5000 UNIT SUBCUT (08:23)
[2023-05-24] MEDS: Insulin Lispro 100 UNIT/ML 3 ML VIAL SUBCUT ×2 (08:23→12:03)
[2023-05-24] MEDS: Metoprolol Succinate ER 50 MG TAB.ER.24H PO (08:24)
[2023-05-24] MEDS: Sodium Bicarbonate 650 MG TABLET PO (08:24)
[2023-05-24] MEDS: calcitrioL 0.25 MCG CAPSULE 0.5 MCG PO (08:24)
[2023-05-24] MEDS: amLODIPine Besylate 5 MG TABLET PO (08:24)
[2023-05-24] MEDS: Ferrous Sulfate 324 MG TABLET.DR PO (08:24)
[2023-05-24] MEDS: Tacrolimus 1 MG CAPSULE 2 MG PO (08:24)
[2023-05-24] MEDS: Atorvastatin Calcium 10 MG TABLET PO (08:24)
[2023-05-24] MEDS: Aspirin Enteric Coated 81 MG TABLET.DR PO (08:24)
[2023-05-24] MEDS: hydrOXYzine HCL 10 MG TABLET PO (08:24)
[2023-05-24] MEDS: 0.9 % Sodium Chloride Flush 3 ML SYRINGE IVFLUSH (08:25)
[2023-05-24] MEDS: metroNIDAZOLE/NS 500 MG/100 ML PIGGYBACK 100 MG IV (08:25)
[2023-05-24] MEDS: Gabapentin 100 MG CAPSULE PO (08:25)
[2023-05-24] MEDS: PHENobarb/Hyoscy/Atropine/Scop 10 ML ELIXIR 5 ML PO (08:25)
--- NOTE | 2023-05-24 09:52 | MHC.CM.PN ---
EMR REVIEWED. PER MD PATIENT MEDICALLY CLEARED FOR DC HOME, RESUME [facility]NA SERVICES. SENT UPDATE TO [facility] IN [facility] - NO RESPONSE. CALLED AGENCY AND VERBALLY INFORMED OF DC. PATIENT'S SISTER WILL ARRIVE AT [facility] AROUND 10AM AND CAN TRANSPORT HOME.
--- NOTE | 2023-05-24 11:39 | P.DS_ITS ---
DS: Providers Provider Date of Service: 05/24/23 Date of admission: 05/21/23 18:46 Primary care physician: Unknown Physician Consults: 05/22/23 10:31 Consult to Gastroenterology Routine Consulting Provider: Sonu Rice Reason for consultation: Enteritis, Proctatitis, Hx Christine Esophagitis for your kind eval DS: Diagnosis Discharge Diagnosis (1) Proctitis: Status: Acute (2) Esophagitis: Status: Acute (3) Vomiting: Status: Acute (4) Gastroenteritis: Status: Acute (5) Clostridium difficile carrier: Status: Acute DS: Summary Hospital Course Hospital Course: Admission note HPI Pt is a Macedonian-speaking 57-year-old male with a PMH significant for?HTN, HLD, insulin-dependent diabetes type 2, hx of osteomyelitis s/p right BKA, s/p kidney transplant on immunosuppressants tacrolimus and prednisone, and mild interm ittent asthma who presents to the ED with?1 week of nausea, vomiting, diarrhea, and diffuse abdominal pain that has worsened significantly in the past 3 days. Patient states symptoms began shortly after visiting with family during . States daughter has similar symptoms and has been hospitalized at [facility] since last Wednesday. Symptoms worsened until he has been unable to eat or drink anything for the past 3 days. Denies hematochezia, melena, but states he noticed some streaks of blood today during the last time he vomited. Patient reports he feels weak and cannot stand up. Also endorses headache, bilateral shoulder pain, and right hip pain, all seemingly chronic. Patient reports last diarrhea was 1-1/2 hour ago and was ?watery and yellow?. Has had some chest pain associated with vomiting, but denies chest pressure. Reports subjective fever and chills, though never measured temperature at home. In the ED pt was afebrile, but with elevated pulse of 96 and hypertensive up to 181/111, satting at 98% on RA. Labs were significant for sodium 134, BUN 24, creatinine 2.75, random glucose 334, beta hydroxybutyrate 1.25. CT?of abdomen and pelvis found diverticulosis without evidence of diverticulitis. Also found evidence questionable for proctitis and esophagitis. EKG demonstrated sinus tachycardia of 103 with left anterior fascicular block and QTc 497. Pt was treated with IVF, morphine, ondansetron, and Protonix. Pt will be admitted to the hospital for treatment further evaluation of intractable nausea, vomiting, diarrhea, and abdominal pain in the setting of likely proctitis. Hospital course # Gastroenteritis CT shows evidence of possible esophagitis and proctitis. Stool studies showed Positive C.Diff antigen but not toxin. Treated with IV fluids, nausea medications and MEtronidazole as Ceftriaxone discontinued with good response. Negative GI panel, negative stool leukocytes, and stool for occult blood. GI consult appreciated as he recommended symptomatic management. advanced diet to regular with good tolerance. To be discharged to finish 1 week of Flaygyl. # Hyperglycemia in Insulin-dependent diabetes type 2 placed on SSI, lantus with fair control. Advised better control and diabetic diet on discharge. # CKD stage 4 Patient s/p kidney transplant 10 years ago, not on hemodialysis. Kidney function stable, at baseline. Continued prednisone, tacrolimus with no reported concerns. Continue antibiotics as prescribed as needed for pain Zofran as needed for Nausea Advance your diet as tolerated at home Time Attestation Discharge coordination time: Greater than 30 minutes Quality: Safe Use of Opioids Does Pt have an Active Cancer Diagnosis on the Problem List?: No Quality: Stroke Does the patient have a stroke diagnosis?: No Physical Exam Vital Signs: Vital Signs: Last Vital Signs Temp 97.8 F 05/24/23 08:02 Pulse 88 05/24/23 08:02 Resp 20 05/24/23 08:02 BP 120/70 05/24/23 08:02 Pulse Ox 98 05/24/23 08:02 O2 Del Method Room Air 05/24/23 08:02 BMI result Body Mass Index 31.0 Const: Other: Constitutional : Awake, interactive, not in distress Neck : Normal inspection, Supple Cardiovascular : RRR, no JVP, no lower extremity edema Respiratory : good bilateral air entry, no crackles, wheezes or rhonchi Gastrointestinal: soft, lax, Normal bowel sounds, no tenderness with no surgical signs Skin : Warm, Dry Neurological : Alert & oriented x3, No focal deficit DS: Data Data Completed and Pending Labs on day of discharge: Laboratory Results - last 24 hr 05/23/23 05/23/23 05/24/23 16:06 19:39 05:59 Hold Purple Top SEE NOTE Sodium 139 Potassium 3.5 Chloride 109 H Carbon Dioxide 21 L Anion Gap 13 BUN 14 Creatinine 2.13 H Estim Creat Clear Calc 35.6 Estimated GFR 32 POC Glucose 203 H 153 H Random Glucose 247 H Calcium 8.4 05/24/23 07:55 Hold Purple Top Sodium Potassium Chloride Carbon Dioxide Anion Gap BUN Creatinine Estim Creat Clear Calc Estimated GFR POC Glucose 233 H Random Glucose Calcium Imaging Chest x-ray: Radiologist's impression: ITS Impressions Abdomen/Pelvis CT 05/21/23 16:40 IMPRESSION: Diverticulosis of the colon. No evidence of diverticulitis or colitis. Question mild wall thickening of the rectum/proctitis. Question mild wall thickening of the distal thoracic esophagus and proximal stomach. Atrophic appearing apache kidneys. Contour abnormality to the lateral midpole of the right kidney probably corresponding to complex cyst when compared with recent ultrasound. Small nonobstructing stone in the lower pole of the transplant kidney in the right lower quadrant. Fleischner guidelines were followed. Discharge Plan Discharge Anticipated Discharge Date/Time: 05/24/23 11:32 Patient Disposition: Home, Self-Care Discharge Diagnosis: Gastroenteritis Referrals: [facility] [Other] - 3-5 Days (Resume VNA services) Physician,Unknown J [Primary Care Provider] - 1 Week Discharge Medications: New uvlkuyynm-[id number]-[id number]-scop [] 16.2-0.1037 -0.0194 mg/5 mL Elixir 5 ml PO QID Qty: 120 1RF metronidazole 500 mg tablet 500 mg PO Q8H Qty: 12 0RF ondansetron 4 mg tablet,disintegrating 4 mg PO Q8H PRN (Reason: nausea and vomiting) Qty: 14 0RF Continued albuterol sulfate 2.5 mg /3 mL (0.083 %) solution for nebulization 1 amp inhalation TID PRN (Reason: Respiratory Distress) atorvastatin 10 mg tablet 10 mg PO DAILY amlodipine 5 mg tablet 5 mg PO DAILY aspirin 81 mg tablet,delayed release (DR/EC) 81 mg PO DAILY tramadol 50 mg tablet 50 mg PO Q6H PRN (Reason: moderate pain) calcitriol 0.5 mcg capsule 0.5 mcg PO DAILY albuterol sulfate [ProAir HFA] 90 mcg/actuation HFA aerosol inhaler 2 puff PO Q4H PRN (Reason: wheezing) tacrolimus 1 mg capsule 2 mg PO BID Patient Comments: PATIENTS DOSE WAS RECENTLY DECREASED TO 2 IN THE AM INSTEAD OF 3 insulin lispro [Humalog KwikPen Insulin] 100 unit/mL insulin pen 6 unit subcut TIDWM cholecalciferol (vitamin D3) 1,250 mcg (50,000 unit) capsule 1 cap PO SA@1000 insulin glargine [Lantus Solostar U-100 Insulin] 100 unit/mL (3 mL) insulin pen 10 unit subcut BEDTIME famotidine 40 mg Tablet 40 mg PO BEDTIME gabapentin 100 mg Capsule 100 mg PO BID ferrous sulfate [FeroSul] 325 mg (65 mg iron) tablet 325 mg PO QAM sodium bicarbonate 650 mg Tablet 650 mg PO TID Qty: 90 0RF lidocaine 5 % adhesive patch,medicated 1 patch topical DAILY Qty: 30 0RF Rx Instructions: leave on most painful area for up to 12 hrs pantoprazole 20 mg tablet,delayed release (DR/EC) 20 mg PO QAM Trulicity 1.5 mg/0.5 mL pen injector 1.5 mg subcut QWEEK metoprolol succinate [Toprol XL] 25 mg tablet extended release 24 hr 50 mg PO DAILY acetaminophen 500 mg Tablet 500 mg PO Q8H PRN (Reason: Pain) hydroxyzine HCl 10 mg tablet 10 mg PO BID trazodone 50 mg tablet 25 mg PO BEDTIME Discharge Orders: Discharge Order (Routine); Ordered 05/24/23 Ordered By: Nara Hood Diet: Advance to usual diet Activity on Discharge: As tolerated Stand Alone Forms: Patient Portal Discharge page Care Plan Goals: Read below Health Concerns: Read below Plan of Treatment: Read below Assessment: You were treated for Gastroenteritis with IV fluids, antibiotics and symptomatic medications as you were evaluated by mechanical research engineer. Continue antibiotics as prescribed as needed for pain Zofran as needed for Nausea Advance your diet as tolerated at home
[2023-05-24 11:56] LABS: Glucose, Whole Blood 197 mg/dL (60-115)
--- NOTE | 2023-05-24 12:58 | P.CDIM_ITS ---
PROVIDER RESPONSE TEXT: To clarify, the appropriate diagnosis supported by the clinical indicators: Other (explain): CKDII, transplanted kidney QUERY TEXT: PHYSICIAN'S DOCUMENTATION REQUEST Date of Query: 05/24/2023 08:00 AM EST Patient Name: Tito Sheriff Admit Date: 05/21/2023 Dear Nara Hood, A review of the medical record indicates additional documentation may be needed. Please review below and update the documentation accordingly. Clinical Indicators: GI consult note dated 05/23 - He does have diabetes mellitus, previous renal failure with above mentio maddie renal transplant, but now with some renal insufficiency. N/V/Dehydration present on arrival CR 2.30 GFR 29 Patient has CKD stage 4, kidney function stable at baseline. Please clarify which of the following accurately represents the patient's renal status: Acute renal failure Acute renal insufficiency Other Other (explain) Clinically unable to determine (explain) Thank you, Cynthia Chavez, CCS, CDIS Use of terms such as suspected, likely, concern for, or probable (associated with a specific diagnosi s that is being evaluated, monitored, or treated as if it exists) are acceptable and can be coded in the inpatient se tting, when documented at the time of discharge. Please use your independent medical judgment in providing your response. THIS QUERY IS PART OF THE PERMANENT MEDICAL RECORD
== END 2023-05-24 12:30 | disposition home or self-care (01) | DRG 254 ==
LOC: HO.ED 17:38 → HO.EDOVER 19:00 → HO.S3 19:27
PROVIDERS: Nurse Practitioner Family; Admitting Provider Student in an Organized Health Care Education/Training Program; Emergency Provider Emergency Medicine; PCP Family Medicine; Visit Provider Student in an Organized Health Care Education/Training Program
DX: K62.89 Other specified diseases of anus and rectum (principal); E11.22 Type 2 diabetes mellitus with diabetic chronic kidney disease; D84.821 Immunodeficiency due to drugs; D63.1 Anemia in chronic kidney disease; E11.65 Type 2 diabetes mellitus with hyperglycemia; N18.2 Chronic kidney disease, stage 2 (mild); E86.0 Dehydration; K20.90 Esophagitis, unspecified without bleeding; G89.29 Other chronic pain; M25.512 Pain in left shoulder; Z22.1 Carrier of other intestinal infectious diseases; M25.511 Pain in right shoulder; I12.9 Hypertensive chronic kidney disease with stage 1 through stage 4 chronic kidney disease, or unspecified chronic kidney disease; J45.909 Unspecified asthma, uncomplicated; Z20.822 Contact with and (suspected) exposure to COVID-19; Z94.0 Kidney transplant status; Z89.511 Acquired absence of right leg below knee; Z79.52 Long term (current) use of systemic steroids; Z79.82 Long term (current) use of aspirin; Z79.85 Long-term (current) use of injectable non-insulin antidiabetic drugs; Z79.621 Long term (current) use of calcineurin inhibitor; Z79.899 Other long term (current) drug therapy
CPT/HCPCS: 36415; 74176; 80048; 80053; 81001; 82010; 82272; 82803; 82947; 83036; 83690; 84484; 85025; 85027; 87324; 87493; 87507; 89055; 93005; 99221; 99285; C9113; J0696; J1644; J1836; J2270; J2405

== ENCOUNTER → 2023-05-21 14:45 | Outpatient (BNV) | payer MEDICAID, SELFPAY | PROVIDERS: Emergency Provider Emergency Medicine; Visit Provider Internal Medicine Cardiovascular Disease | DX: I44.4 Left anterior fascicular block (principal); R94.31 Abnormal electrocardiogram [ECG] [EKG] | CPT/HCPCS: 93010 ==

== ENCOUNTER → 2023-05-21 18:46 | Outpatient (BNV) | payer MEDICAID, SELFPAY | PROVIDERS: Admitting Provider Student in an Organized Health Care Education/Training Program; Emergency Provider Emergency Medicine; Visit Provider Student in an Organized Health Care Education/Training Program | DX: K62.89 Other specified diseases of anus and rectum (principal); K20.90 Esophagitis, unspecified without bleeding; R11.2 Nausea with vomiting, unspecified; K52.9 Noninfective gastroenteritis and colitis, unspecified; Z22.1 Carrier of other intestinal infectious diseases | CPT/HCPCS: 99222; 99232; 99239 ==

== ENCOUNTER 2023-09-08 12:32 | Outpatient (AMB) | payer MEDICAID, SELFPAY ==
--- NOTE | 2023-09-08 12:36 | A.OFFVIS_ITS ---
Intake Vital Signs 09/08/23 13:03 Height 5 ft 3 in BMI Reason not done Patient refused/unable BP 142/78 H Blood Pressure Location Rt brachial Position Sitting Pulse 66 Pulse Source Pulse Oximeter Intake Visit Reasons: Nausea/vomiting Intake Note: Pt presents to the office today for nausea and vomiting. Pt states he is feeling okay. Allergies hydromorphone [From DILAUDID] Allergy (Mild, Verified 09/08/23 13:05) ITCHINESS diphenhydramine [From BENADRYL] Allergy (Unknown, Verified 09/08/23 13:05) UNK regadenoson [From Lexiscan] Adverse Reaction (Mild, Verified 09/08/23 13:05) Itching HPI Nausea/vomiting HPI Details 58-year-old male here for a new evaluati on of nausea and vomiting. He is referred by Zoraida Luo of [facility]. PMX ASTHMA Ho Diabetes ypertension Atrial arrhythmia with possible wandering pacemaker Coronary artery disease Orthostatic hypotension History of syncope and collapse History of osteomyelitis with 5th toe amputation status post diabetic foot ulcer Acute kidney injury C diff carrier History of gastroenteritis History of oral Christine HISTORY OF EROSIVE GASTRITIS-2002 [facility] HISTORY OF EROSIVE ESOPHAGITIS-2002 [facility] * SURGICAL HISTORY Renal transplant recipient History of AV shunt for dialysis Amputation of 5th right toe CHOLECYSTECTOMY * ALLERGIES Hydromorphone Diphenhydramine Regadenson * [employer] LABS: Laboratory Tests 05/23/23 05/24/23 05:40 05:59 WBC 5.2 RBC 4.14 L Hgb 11.4 L Hct 33.0 L MCV 79.7 L Plt Count 234 Estimated GFR 32 No recent Chem panel TODAY'S VISIT Indonesian #Zoraida Emerita He is here with a female family member. He says he has had N/V for more than a month. He is also having diarrhea 11/01. He was seen at [facility] for this, he was hospitalized for several weeks and he was told he would have the diarrhea all fo the time. HOwever, i can not find any record under [facility] records. He runs out to the car to get his paperwork, and his mother then tells me he has actually had this problem for over 40 years, since we were back in [place]. I also find that he was seen for a similar problem in 2002 and had and EGD by Dr. Bhatt that showed erosive esphagitis and gastritis. WIth this research is where I find that he is s/p cholecystectomy as well. 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 However given his renal status metabolic causes are also a possibility. He is s/p renal transplant but still seems to have a low GFR. He brings his discharge paperwork and it shows that he went from being here in May to [facility]. While he was there he was found to have sepsis secondary to C diff colitis. The toxin was actively positive. It looks like he was treated with Flagyl which of course was not helpful and then sent home with a course of vancomycin which he is currently continuing at this time. He also was sent home with cholestyramine and fiber which has not helped him at all with the diarrhea. He also dislikes the weight taste in feels so will try moving him to Carafate to give him some comfort until we can gather more information. I also think this is a good medication given his history of erosive gastritis in 2002. 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 He tells me that his doctor ?took him off of all of his gastritis medications? recently and then he could not eat for many weeks and then this happened. He is currently only on pantoprazole 40 mg once a day. At this time I am going to get an upper endoscopy to see what is going on but also a gastric emptying study since the nausea and vomiting seems to be long- term. Again the diarrhea is probably a combination of factors. He did have a negative GI panel for any other microbes at the time of his admission at [facility]. I will change him to carafate sinc he dislikes cholesty, get a chem panel, and GES adn EGD ordered. After he completex abx will retrest to see if we need to progress ti dificid. [facility] Medical History (Updated 09/08/23 @ 14:38 by CJ Mann) Diabetic infection of right foot Amputation of fifth toe of right foot History of osteomyelitis Chronic hyperglycemia Diabetes HTN (hypertension) Surgical History (Updated 09/08/23 @ 13:26 by CJ Mann) History of cholecystectomy History of right below knee amputation Renal transplant recipient H/O arteriovenostomy for renal dialysis Family History Other Diabetes No family history of coronary artery disease Social History Household Members: None Housing: House Do you presently have visiting nurse or other home services: Yes ([employer]) Alcohol intake: never Comment: patient refusing high fall risk precautions Patient Tobacco Use Status: Never used Tobacco e-Cigarette/Vaping Use: Never Used Advance Directives Date on File: 01/21/22 service: No Current occupational status: disabled Review of Systems Const Denies fatigue, Denies fever(s), Denies night sweats, Reports poor appetite and Reports weight loss ENT Reports Normal hearing present, Denies dental pain, Denies dysphagia, Denies hearing loss, Denies mouth pain, Denies odynophagia, Denies throat swelling, Denies tongue swelling and Reports other (Dentition adequate) Card Reports no additional complaints Resp Reports no additional complaints GI Details: Reports abdominal pain, Denies melena, Denies bloating, Denies hematochezia, Denies constipation, Denies GI cramping, Denies dysphagia, Denies excessive flatus, Denies early satiety, Reports heartburn, Reports diarrhea, Reports nausea, Denies odynophagia, Reports vomiting and Denies hematemesis Musc Reports abnormal gait, Reports deformity and Reports numbness Skin/Breast Denies pruritus, Denies lesions, Denies rash and Denies jaundice Neuro Reports Normal hearing present, Denies Abnormal speech present, Reports abnormal gait and Reports numbness Endo Denies fatigue Aller/Immun Denies throat swelling and Denies tongue swelling Physical Exam Vital Signs: Last Vital Signs Pulse 66 09/08/23 13:03 BP 142/78 H 09/08/23 13:03 Const General: cooperative, no acute distress, well developed and well groomed Nutritional Appearance: well nourished and overweight Orientation/consciousness: oriented to person, oriented to place and oriented to time Limitations: language barrier and wheelchair HEENT Head: Yes normocephalic and Yes atraumatic Eyes General: appearance normal, both eyes and all related structures Pupils: Equal, round and reactive pupils present Neck Neck: Yes normal visual inspection and Yes no lymphadenopathy Thyroid: Thyroid normal Resp Effort & Inspection: normal respiratory effort and able to speak in complete sentences Auscultation: clear to auscultation bilaterally Cardio Rate: regular rate Rhythm: regular rhythm Heart sounds: Normal, physiologic split S2 sound present Peripheral pulses: radial pulses present and posterior tibial pulses present GI Inspection: No distended and No Abdominal panniculus present Palpation (GI): Soft to palpation, nontender, no guarding, not rigid and No hepatosplenomegaly present Percussion: Yes normal to percussion Auscultation: Hyperactive bowel sounds present Rectal Exam - Male: Yes deferred Skin General skin exam: no rashes or lesions noted, turgor normal, skin not dry, no jaundice, No spider nevi and no striae Rashes: no rashes Nails: normal Neuro General: oriented to person, oriented to place and oriented to time Cranial nerves: Yes Equal, round and reactive pupils present and Yes Normal hearing present Speech: No Abnormal speech present Extrem Other: right amputee Psych Appearance: grossly normal and well kempt Mental Status: mental status grossly normal Speech and movement: Normal speech and movement present Affect: normal affect Attitude: cooperative Thought process: not confabulating and Impoverished thought process present Thought content: Normal thought content present Insight: Limited insight present (Psych) Judgement: Limited judgement present (Psych) Assessment & Plan Assessment & Plan (1) Nausea and vomiting: Code(s): R11.2 - Nausea with vomiting, unspecified (2) Immunosuppression due to drug therapy: Code(s): D84.821 - Immunodeficiency due to drugs; Z79.899 - Other termite control servicer (current) drug therapy (3) Chronic kidney disease, stage 4 (severe): Code(s): N18.4 - Chronic kidney disease, stage 4 (severe) (4) Diabetes: Code(s): E11.9 - Type 2 diabetes mellitus without complications (5) Diarrhea: Code(s): R19.7 - Diarrhea, unspecified (6) Erosive esophagitis: Code(s): K22.10 - Ulcer of esophagus without bleeding (7) Erosive gastritis: Code(s): K29.60 - Other gastritis without bleeding (8) Pre-op examination: Code(s): Z01.818 - Encounter for other preprocedural examination Plan Indonesian #Zoraida Felder He is here with a female family member. He says he has had N/V for more than a month. He is also having diarrhea 11/01. He was seen at [facility] for this, he was hospitalized for several weeks and he was told he would have the diarrhea all fo the time. HOwever, i can not find any record under [facility] records. He runs out to the car to get his paperwork, and his mother then tells me he has actually had this problem for over 40 years, since we were back in [place]. I also find that he was seen for a similar problem in 2002 and had and EGD by Dr. Bhatt that showed erosive esphagitis and gastritis. WIth this research is where I find that he is s/p cholecystectomy as well. 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 However given his renal status metabolic causes are also a possibility. He is s/p renal transplant but still seems to have a low GFR. He brings his discharge paperwork and it shows that he went from being here in May to [facility]. While he was there he was found to have sepsis secondary to C diff colitis. The toxin was actively positive. It looks like he was treated with Flagyl which of course was not helpful and then sent home with a course of vancomycin which he is currently continuing at this time. He also was sent home with cholestyramine and fiber which has not helped him at all with the diarrhea. He also dislikes the weight taste in feels so will try moving him to Carafate to give him some comfort until we can gather more information. I also think this is a good medication given his history of erosive gastritis in 2002. 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 He tells me that his doctor ?took him off of all of his gastritis medications? recently and then he could not eat for many weeks and then this happened. He is currently only on pantoprazole 40 mg once a day. At this time I am going to get an upper endoscopy to see what is going on but also a gastric emptying study since the nausea and vomiting seems to be long- term. Again the diarrhea is probably a combination of factors. He did have a negative GI panel for any other microbes at the time of his admission at [facility]. I will change him to carafate sinc he dislikes cholesty, get a chem panel, and GES adn EGD ordered. After he completex abx will retrest to see if we need to progress ti dificid. Orders: Orders EGD with [facility] - GI Use Only Today R11.2 - Nausea with vomiting, unspecified, R19.7 - Diarrhea, unspecified Comprehensive Met. Panel Today E11.9 - Type 2 diabetes mellitus without complications, R11.2 - Nausea with vomiting, unspecified C Reactive Protein Today E11.9 - Type 2 diabetes mellitus without complications, R11.2 - Nausea with vomiting, unspecified Transglutaminase IgA Today E11.9 - Type 2 diabetes mellitus without complications, R11.2 - Nausea with vomiting, unspecified [place] gastric emptying study Today R11.2 - Nausea with vomiting, unspecified, R19.7 - Diarrhea, unspecified Calprotectin, Fecal Today E11.9 - Type 2 diabetes mellitus without comp lications, R11.2 - Nausea with vomiting, unspecified Rast Allergen Today E11.9 - Type 2 diabetes mellitus without complications, R11.2 - Nausea with vomiting, unspecified Transglutaminase Ab IgG Today E11.9 - Type 2 diabetes mellitus without complications, R11.2 - Nausea with vomiting, unspecified Hemoglobin A1c Today E11.9 - Type 2 diabetes mellitus without complications Medications: New sucralfate (Carafate) 2 grams (2 x 1 gram) PO BID 120 tabs 6RF R19.7 - Diarrhea, unspecified sucralfate (Carafate) 2 grams (2 x 1 gram) PO BID 120 tabs 6RF R19.7 - Diarrhea, unspecified Coding Level of Care Code New Pt Level 3 (13538) Diagnoses Nausea and vomiting R11.2 Immunosuppression due to drug therapy D84.821; Z79.899 Chronic kidney disease, stage 4 (severe) N18.4 Diabetes E11.9 Diarrhea R19.7 Erosive esophagitis K22.10 Erosive gastritis K29.60 Pre-op examination Z01.818
[2023-09-08 13:03] VITALS: BP 142/78; PULSE 66
== END 2023-09-08 14:12 | disposition home or self-care (01) ==
PROVIDERS: PCP Family Medicine; Visit Provider Nurse Practitioner
DX: R11.2 Nausea with vomiting, unspecified (principal); D84.821 Immunodeficiency due to drugs; Z79.899 Other long term (current) drug therapy; N18.4 Chronic kidney disease, stage 4 (severe); E11.9 Type 2 diabetes mellitus without complications; R19.7 Diarrhea, unspecified; K22.10 Ulcer of esophagus without bleeding; K29.60 Other gastritis without bleeding; Z01.818 Encounter for other preprocedural examination
CPT/HCPCS: 99203

== ENCOUNTER 2023-09-08 12:32 | Outpatient (REF) | payer MEDICAID, SELFPAY ==
[2023-09-08 15:12] LABS: Estimated Average Glucose 174 mg/dL; Hemoglobin A1c % 7.7 % (<6.0)
[2023-09-08 15:51] LABS: Alanine Aminotransferase 25 U/L (0-40); Albumin Level 3.6 g/dL (3.5-5.0); Alkaline Phosphatase 115 U/L (39-117); Anion Gap 11 (12-20); Aspartate Amino Transferase 18 U/L (5-37); Bilirubin Total 0.5 mg/dL (0.0-1.0); Blood Urea Nitrogen 23 mg/dL (9-16); C Reactive Protein < 0.04 mg/dL (< or = 0.50); Calcium 9.3 mg/dL (8.4-10.2); Carbon Dioxide 16 mmol/L (22-29); Chloride 116 mmol/L (96-108); Estimated Glomerular Filt Rate 18; Glucose Random 59 mg/dL (60-115); Potassium 4.3 mmol/L (3.3-5.1); Sodium 139 mmol/L (135-145); Total Protein 6.3 g/dL (6.5-8.0)
[2023-09-10 13:33] LABS: Transglutaminase Ab IgG <1.0 U/mL; Transglutaminase IgA <1.0 U/mL
[2023-09-13 07:24] LABS: Tacrolimus Prograf 1.5
[2023-09-16 05:46] LABS: Calprotectin, Fecal 62 mcg/g
== END 2023-09-08 12:33 | disposition home or self-care (01) ==
LOC: HO.LAB 12:32
PROVIDERS: PCP Family Medicine; Visit Provider Nurse Practitioner
DX: Z01.818 Encounter for other preprocedural examination (principal); R11.2 Nausea with vomiting, unspecified; D84.821 Immunodeficiency due to drugs; N18.4 Chronic kidney disease, stage 4 (severe); E11.9 Type 2 diabetes mellitus without complications; R19.7 Diarrhea, unspecified; K22.10 Ulcer of esophagus without bleeding; K29.60 Other gastritis without bleeding; Z79.899 Other long term (current) drug therapy
CPT/HCPCS: 36415; 80053; 80197; 83036; 83993; 86003; 86140; 86364; 99212

== ENCOUNTER 2023-09-30 09:56 | Outpatient (REF) | payer MEDICAID, SELFPAY ==
--- NOTE | ~2023-09-30 | FL_ITS ---
EXAMINATION: XR FLUOROSCOPY BARIUM SWALLOW WITH AIR CLINICAL INFORMATION: Dysphasia, hypopharyngeal phase with globus sensation and episodic regurgitation. Worse with liquids. Patient has no additional complaints. A lab animal technician was utilized. COMPARISON: None. Correlation made with CT abdomen and pelvis 05/21/2023. TECHNIQUE: Fluoroscopic air contrast barium swallow examination was performed utilizing standard techniques with thin and thick barium and effervescent granules. Numerous spot images were obtained. Several fluoroscopic image hold cine sequences were also obtained. FINDINGS: Moderate narrowing of C5-C6 disc space. Cervical spine otherwise unremarkable. There are cholecystectomy clips present. Kidney transplant in the right superior pelvis with numerous surgical clips seen in this region. Surgical clips noted in the region of the thyroid. Extensive calcific atheromatous changes of the arterial vasculature noted, suggesting diabetes. Lateral cine images of the oropharynx and hypopharynx demonstrate normal swallow mechanism with normal epiglottic inversion and soft palate elevation. No tracheal penetration, glottic or subglottic aspiration identified. No nasopharyngeal reflux present. Hypopharyngeal structures appear normal without evidence of mass or diverticulum. There was moderate to severe consistent cricopharyngeal achalasia, which caused ballooning of the hypopharynx, and mild pooling of contrast in the vallecula and piriform sinuses. Dual and single contrast images of the esophagus demonstrate normal caliber with extensive disordered peristalsis, with nonpropulsive tertiary contractions. There is a granular appearance of the distal esophageal mucosa, with mildly thickened longitudinal folds, findings suggesting esophagitis. Small type I hiatus hernia present. No narrowing of the GE junction. Spontaneous gastroesophageal reflux was noted throughout the exam to the level of the thoracic inlet. Dual contrast and single contrast images of the stomach demonstrated thickened rugal folds, as well as persistent material within the antrum suggesting gastroparesis. There were small foci of contrast pooling in the body and antrum of the stomach suggesting small submucosal aphthous ulcers. A few filling defects are also present suggesting small hyperplastic polyps. Findings suggest erosive gastritis. Contrast freely passed into the gastric antrum and duodenal bulb without delay. Single and air-contrast images of the duodenal bulb demonstrate no abnormality. The duodenal sweep has a normal course, however appears to have thickened folds suggesting duodenitis, or peptic disease. The proximal jejunum has a normal caliber but the folds appear thickened, suggesting a proximal enteritis. FLUOROSCOPY TIME: 4 minutes 16 seconds Number of Spot Images: 8 Number of cines obtained: 10 DOSE AREA PRODUCT: [id number] uGy-m2 (microgray-meter squared) FL/FL barium swallow IMPRESSION: 1. Moderate persistent cricopharyngeal achalasia resulting in mild ballooning of the hypopharynx and contrast pooling in the vallecula and piriform sinuses. No evidence of tracheal penetration or aspiration. 2. Significant esophageal dysmotility, with nonpropulsive secondary and tertiary contractions. 3. Small to moderate sized type I hiatus hernia. No narrowing of the GE junction. 4. Episodic gastroesophageal reflux to the level of the thoracic inlet. 5. Granular mucosa of the distal two thirds of the esophagus, with mildly thickened longitudinal folds, suggesting erosive esophagitis. 6. Rugal fold thickening, a few scattered hyperplastic polyps, and several small foci of contrast pooling in the gastric body and antrum suggesting submucosal apthous ulcers and erosive gastritis. 7. Retained food highly suspected within the stomach, findings which could suggest gastroparesis. Patient denied a recent meal. 8. Mild thickening of the duodenal folds and proximal jejunal folds, suggesting proximal enteritis/duodenitis. 9. Surgical clips in the right pelvis from kidney transplant. Given the above findings, recommend correlating with GI consultation and EGD.
== END 2023-09-30 09:57 | disposition home or self-care (01) ==
LOC: HO.XRAY 09:56
PROVIDERS: PCP Family Medicine; Visit Provider Family Medicine
DX: R13.10 Dysphagia, unspecified (principal)
CPT/HCPCS: 74220

== ENCOUNTER → 2023-09-30 09:58 | Outpatient (BNV) | payer MEDICAID, SELFPAY | PROVIDERS: PCP Family Medicine; Visit Provider Radiology Diagnostic Radiology | DX: R13.10 Dysphagia, unspecified (principal) | CPT/HCPCS: 74246 ==

== ENCOUNTER 2023-10-06 12:22 | Outpatient (AMB) | payer MEDICAID, SELFPAY ==
--- NOTE | 2023-10-06 12:29 | MHC.OFFVIS ---
Vital Signs 10/06/23 12:50 Height 5 ft 3 in BP 144/78 H Blood Pressure Location Lt brachial Position Sitting Pulse 70 Intake Visit Reasons: 4 week follow up Intake Note: Patient follow up GERD Patient cc: swallowing problems, acid reflex with burning sensation and chronic diarrhea. Guest Relations Officer Required: Yes Accompanied by: Mother Allergies hydromorphone [From DILAUDID] Allergy (Mild, Verified 10/06/23 12:47) ITCHINESS diphenhydramine [From BENADRYL] Allergy (Unknown, Verified 10/06/23 12:47) UNK regadenoson [From Lexiscan] Adverse Reaction (Mild, Verified 10/06/23 12:47) Itching HPI HPI 4 week follow up: Details: Assessment & Plan (1) Nausea and vomiting: Code(s): R11.2 - Nausea with vomiting, unspecified (2) Immunosuppression due to drug therapy: Code(s): D84.821 - Immunodeficiency due to drugs; Z79.899 - Other fpc (current) drug therapy (3) Chronic kidney disease, stage 4 (severe): Code(s): N18.4 - Chronic kidney disease, stage 4 (severe) (4) Diabetes: Code(s): E11.9 - Type 2 diabetes mellitus without complications (5) Diarrhea: Code(s): R19.7 - Diarrhea, unspecified (6) Erosive esophagitis: Code(s): K22.10 - Ulcer of esophagus without bleeding (7) Erosive gastritis: Code(s): K29.60 - Other gastritis without bleeding (8) Pre-op examination: Code(s): Z01.818 - Encounter for other preprocedural examination Plan Malay #Zoraida Felder He is here with a female family member. He says he has had N/V for more than a month. He is also having diarrhea 11/01. He was seen at [facility] for this, he was hospitalized for several weeks and he was told he would have the diarrhea all fo the time. HOwever, i can not find any record under [facility] records. He runs out to the car to get his paperwork, and his mother then tells me he has actually had this problem for over 40 years, since we were back in [place]. I also find that he was seen for a similar problem in 2002 and had and EGD by Dr. Rice that showed erosive esphagitis and gastritis. With this research is where I find that he is s/p cholecystectomy as well. 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 However given his renal status metabolic causes are also a possibility. He is s/p renal transplant but still seems to have a low GFR. He brings his discharge paperwork and it shows that he went from being here in May to . While he was there he was found to have sepsis secondary to C diff colitis. The toxin was actively positive. It looks like he was treated with Flagyl which of course was not helpful and then sent home with a course of vancomycin which he is currently continuing at this time. He also was sent home with cholestyramine and fiber which has not helped him at all with the diarrhea. He also dislikes the weight taste in feels so will try moving him to [facility] to give him some comfort until we can gather more information. I also think this is a good medication given his history of erosive gastritis in 2002. 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 He tells me that his doctor ?took him off of all of his gastritis medications? recently and then he could not eat for many weeks and then this happened. He is currently only on pantoprazole 40 mg once a day. At this time I am going to get an upper endoscopy to see what is going on but also a gastric emptying study since the nausea and vomiting seems to be long-term. Again the diarrhea is probably a combination of factors. He did have a negative GI panel for any other microbes at the time of his admission at [facility]. I will change him to [facility] he dislikes cholesty, get a chem panel, and GES adn EGD ordered. After he completex abx will retrest to see if we need to progress ti dificid. Orders: Orders EGD with [facility] - GI Use Only Today R11.2 - Nausea with vomiting, unspecified, R19.7 - Diarrhea, unspecified Comprehensive Met. Panel Today E11.9 - Type 2 diabetes mellitus without complications, R11.2 - Nausea with vomiting, unspecified C Reactive Protein Today E11.9 - Type 2 diabetes mellitus without complications, R11.2 - Nausea with vomiting, unspecified Transglutaminase IgA Today E11.9 - Type 2 diabetes mellitus without complications, R11.2 - Nausea with vomiting, unspecified NM gastric emptying study Today R11.2 - Nausea with vomiting, unspecified, R19.7 - Diarrhea, unspecified Calprotectin, Fecal Today E11.9 - Type 2 diabetes mellitus without complications, R11.2 - Nausea with vomiting, unspecified Rast Allergen Today E11.9 - Type 2 diabetes mellitus without complications, R11.2 - Nausea with vomiting, unspecified Transglutaminase Ab IgG Today E11.9 - Type 2 diabetes mellitus without complications, R11.2 - Nausea with vomiting, unspecified Hemoglobin A1c Today E11.9 - Type 2 diabetes mellitus without complications Medications: New sucralfate (Carafate) 2 grams (2 x 1 gram) PO BID 120 tabs 6RF R19.7 - Diarrhea, unspecified sucralfate (Carafate) 2 grams (2 x 1 gram) PO BID 120 tabs 6RF R19.7 - Diarrhea, unspecified LABS: Laboratory Tests 09/08/23 09/08/23 14:30 14:34 Estimated GFR 18 Random Glucose 59 L* Estimat Average Glucose 174 Hemoglobin A1c % 7.7 H Total Bilirubin 0.5 AST 18 ALT 25 Alkaline Phosphatase 115 C-Reactive Protein < 0.04 Stool Calprotectin 62 Tiss Transglutamin IgG <1.0 Tiss Transglutamin IgA <1.0 THE RAST ALLERGEN DOES NOT SHOW ANY SIGNIFICANT FOOD ALLERGIES BARIUM SWALLOW ORDERED BY PCP 09/30/23 FINDINGS: Moderate narrowing of C5-C6 disc space. Cervical spine otherwise unremarkable. There are cholecystectomy clips present. Kidney transplant in the right superior pelvis with numerous surgical clips seen in this region. Surgical clips noted in the region of the thyroid. Extensive calcific atheromatous changes of the arterial vasculature noted, suggesting diabetes. Lateral cine images of the oropharynx and hypopharynx demonstrate normal swallow mechanism with normal epiglottic inversion and soft palate elevation. No tracheal penetration, glottic or subglottic aspiration identified. No nasopharyngeal reflux present. Hypopharyngeal structures appear normal without evidence of mass or diverticulum. There was moderate to severe consistent cricopharyngeal achalasia, which caused ballooning of the hypopharynx, and mild pooling of contrast in the vallecula and piriform sinuses. Dual and single contrast images of the esophagus demonstrate normal caliber with extensive disordered peristalsis, with nonpropulsive tertiary contractions. There is a granular appearance of the distal esophageal mucosa, with mildly thickened longitudinal folds, findings suggesting esophagitis. Small type I hiatus hernia present. No narrowing of the GE junction. Spontaneous gastroesophageal reflux was noted throughout the exam to the level of the thoracic inlet. Dual contrast and single contrast images of the stomach demonstrated thickened rugal folds, as well as persistent material within the antrum suggesting gastroparesis. There were small foci of contrast pooling in the body and antrum of the stomach suggesting small submucosal aphthous ulcers. A few filling defects are also present suggesting small hyperplastic polyps. Findings suggest erosive gastritis. Contrast freely passed into the gastric antrum and duodenal bulb without delay. Single and air-contrast images of the duodenal bulb demonstrate no abnormality. The duodenal sweep has a normal course, however appears to have thickened folds suggesting duodenitis, or peptic disease. The proximal jejunum has a normal caliber but the folds appear thickened, suggesting a proximal enteritis. FLUOROSCOPY TIME: 4 minutes 16 seconds Number of Spot Images: 8 Number of cines obtained: 10 DOSE AREA PRODUCT: 3884 uGy-m2 (microgray-meter squared) FL/FL barium swallow IMPRESSION: 1. Moderate persistent cricopharyngeal achalasia resulting in mild ballooning of the hypopharynx and contrast pooling in the vallecula and piriform sinuses. No evidence of tracheal penetration or aspiration. 2. Significant esophageal dysmotility, with nonpropulsive secondary and tertiary contractions. 3. Small to moderate sized type I hiatus hernia. No narrowing of the GE junction. 4. Episodic gastroesophageal reflux to the level of the thoracic inlet. 5. Granular mucosa of the distal two thirds of the esophagus, with mildly thickened longitudinal folds, suggesting erosive esophagitis. 6. Rugal fold thickening, a few scattered hyperplastic polyps, and several small foci of contrast pooling in the gastric body and antrum suggesting submucosal apthous ulcers and erosive gastritis. 7. Retained food highly suspected within the stomach, findings which could suggest gastroparesis. Patient denied a recent meal. 8. Mild thickening of the duodenal folds and proximal jejunal folds, suggesting proximal enteritis/duodenitis. 9. Surgical clips in the right pelvis from kidney transplant. Given the above findings, recommend correlating with GI consultation and EGD. EGD SCHEDULED FOR 12/29/2023 BIOPSY GASTRIC EMPTYING STUDY TODAY'S VISIT We review all the findings and given all of the abnormalities on the barium swallow including what appears to be gastroparesis I think the trial of Reglan is in order. I explained to him all of the findings and why this medication would be helpful and he is agreeable. We have a gastric emptying study ordered and he was instructed not to take the medication prior to this study but I would like it to confirm that this is actually the problem. The EGD is scheduled for December 28. He continues on lansoprazole 30 mg twice a day, famotidine for breakthrough, and loperamide for occasional breakthrough diarrhea. Return office visit in 4 weeks to evaluate his response to the Reglan [facility] Medical History (Updated 09/08/23 @ 14:38 by CJ Mann) Diabetic infection of right foot Amputation of fifth toe of right foot History of osteomyelitis Chronic hyperglycemia Diabetes HTN (hypertension) Surgical History History of cholecystectomy History of right below knee amputation Renal transplant recipient H/O arteriovenostomy for renal dialysis Family History Other Diabetes No family history of coronary artery disease Social History Household Members: None Housing: House Do you presently have visiting nurse or other home services: Yes ([employer]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) Alcohol intake: never Comment: patient refusing high fall risk precautions Patient Tobacco Use Status: Never used Tobacco e-Cigarette/Vaping Use: Never Used Advance Directives Date on File: 01/21/22 service: No Current occupational status: disabled Review of Systems Const Denies fatigue, Denies fever(s), Denies night sweats, Denies poor appetite and Denies weight loss ENT Reports Normal hearing present, Denies dental pain, Reports dysphagia, Denies hearing loss, Denies mouth pain, Denies odynophagia, Denies throat swelling, Denies tongue swelling and Reports other (Dentition adequate) Card Reports no additional complaints Resp Reports no additional complaints GI Details: Denies abdominal pain, Denies melena, Reports bloating, Denies hematochezia, Denies constipation, Denies GI cramping, Reports dysphagia, Denies excessive flatus, Denies early satiety, Reports heartburn, Reports diarrhea, Reports nausea, Denies odynophagia, Denies vomiting and Denies hematemesis Skin/Breast Denies pruritus, Denies lesions, Denies rash and Denies jaundice Neuro Reports Normal hearing present and Denies Abnormal speech present Endo Denies fatigue Aller/Immun Denies throat swelling and Denies tongue swelling Physical Exam Vital Signs: Last Vital Signs Pulse 70 10/06/23 12:50 BP 144/78 H 10/06/23 12:50 Const General: cooperative, no acute distress, well developed and well groomed Nutritional Appearance: well nourished and overweight Orientation/consciousness: oriented to person, oriented to place and oriented to time Limitations: language barrier and wheelchair HEENT Head: Yes normocephalic and Yes atraumatic Eyes General: appearance normal, both eyes and all related structures Pupils: Equal, round and reactive pupils present Neck Neck: Yes normal visual inspection and Yes no lymphadenopathy Thyroid: Thyroid normal Resp Effort & Inspection: normal respiratory effort and able to speak in complete sentences Auscultation: clear to auscultation bilaterally Cardio Rate: regular rate Rhythm: regular rhythm Heart sounds: Normal, physiologic split S2 sound present Peripheral pulses: radial pulses present and posterior tibial pulses present GI Inspection: No distended, No Abdominal panniculus present and Yes obesity Palpation (GI): Soft to palpation, nontender, no guarding, not rigid and No hepatosplenomegaly present Percussion: Yes normal to percussion Auscultation: normal bowel sounds Rectal Exam - Male: Yes deferred Skin General skin exam: no rashes or lesions noted, turgor normal, skin not dry, no jaundice, No spider nevi and no striae Rashes: no rashes Nails: normal Neuro General: oriented to person, oriented to place and oriented to time Cranial nerves: Yes Equal, round and reactive pupils present and Yes Normal hearing present Speech: No Abnormal speech present Extrem Other: right BKA General: Yes normal to inspection, No clubbing, No cyanosis and No edema Psych Appearance: grossly normal and well kempt Mental Status: mental status grossly normal Speech and movement: Normal speech and movement present Affect: normal affect Attitude: cooperative Thought process: Normal thought process present and not confabulating Thought content: Normal thought content present Insight: Limited insight present (Psych) Judgement: Limited judgement present (Psych) Results Reviewed Results Reviewed: Laboratory Tests 09/08/23 09/08/23 14:30 14:34 Estimated GFR 18 Random Glucose 59 L* Estimat Average Glucose 174 Hemoglobin A1c % 7.7 H Total Bilirubin 0.5 AST 18 ALT 25 Alkaline Phosphatase 115 C-Reactive Protein < 0.04 Stool Calprotectin 62 Tiss Transglutamin IgG <1.0 Tiss Transglutamin IgA <1.0 THE RAST ALLERGEN DOES NOT SHOW ANY SIGNIFICANT FOOD ALLERGIES BARIUM SWALLOW ORDERED BY PCP 09/30/23 FINDINGS: Moderate narrowing of C5-C6 disc space. Cervical spine otherwise unremarkable. There are cholecystectomy clips present. Kidney transplant in the right superior pelvis with numerous surgical clips seen in this region. Surgical clips noted in the region of the thyroid. Extensive calcific atheromatous changes of the arterial vasculature noted, suggesting diabetes. Lateral cine images of the oropharynx and hypopharynx demonstrate normal swallow mechanism with normal epiglottic inversion and soft palate elevation. No tracheal penetration, glottic or subglottic aspiration identified. No nasopharyngeal reflux present. Hypopharyngeal structures appear normal without evidence of mass or diverticulum. There was moderate to severe consistent cricopharyngeal achalasia, which caused ballooning of the hypopharynx, and mild pooling of contrast in the vallecula and piriform sinuses. Dual and single contrast images of the esophagus demonstrate normal caliber with extensive disordered peristalsis, with nonpropulsive tertiary contractions. There is a granular appearance of the distal esophageal mucosa, with mildly thickened longitudinal folds, findings suggesting esophagitis. Small type I hiatus hernia present. No narrowing of the GE junction. Spontaneous gastroesophageal reflux was noted throughout the exam to the level of the thoracic inlet. Dual contrast and single contrast images of the stomach demonstrated thickened rugal folds, as well as persistent material within the antrum suggesting gastroparesis. There were small foci of contrast pooling in the body and antrum of the stomach suggesting small submucosal aphthous ulcers. A few filling defects are also present suggesting small hyperplastic polyps. Findings suggest erosive gastritis. Contrast freely passed into the gastric antrum and duodenal bulb without delay. Single and air-contrast images of the duodenal bulb demonstrate no abnormality. The duodenal sweep has a normal course, however appears to have thickened folds suggesting duodenitis, or peptic disease. The proximal jejunum has a normal caliber but the folds appear thickened, suggesting a proximal enteritis. FLUOROSCOPY TIME: 4 minutes 16 seconds Number of Spot Images: 8 Number of cines obtained: 10 DOSE AREA PRODUCT: 3884 uGy-m2 (microgray-meter squared) FL/FL barium swallow IMPRESSION: 1. Moderate persistent cricopharyngeal achalasia resulting in mild ballooning of the hypopharynx and contrast pooling in the vallecula and piriform sinuses. No evidence of tracheal penetration or aspiration. 2. Significant esophageal dysmotility, with nonpropulsive secondary and tertiary contractions. 3. Small to moderate sized type I hiatus hernia. No narrowing of the GE junction. 4. Episodic gastroesophageal reflux to the level of the thoracic inlet. 5. Granular mucosa of the distal two thirds of the esophagus, with mildly thickened longitudinal folds, suggesting erosive esophagitis. 6. Rugal fold thickening, a few scattered hyperplastic polyps, and several small foci of contrast pooling in the gastric body and antrum suggesting submucosal apthous ulcers and erosive gastritis. 7. Retained food highly suspected within the stomach, findings which could suggest gastroparesis. Patient denied a recent meal. 8. Mild thickening of the duodenal folds and proximal jejunal folds, suggesting proximal enteritis/duodenitis. 9. Surgical clips in the right pelvis from kidney transplant. Given the above findings, recommend correlating with GI consultation and EGD. Assessment & Plan Assessment & Plan (1) Erosive esophagitis: Code(s): K22.10 - Ulcer of esophagus without bleeding Category: Medical (2) Erosive gastritis: Code(s): K29.60 - Other gastritis without bleeding Category: Medical (3) Diarrhea: Code(s): R19.7 - Diarrhea, unspecified Category: Medical (4) Chronic kidney disease, stage 4 (severe): Code(s): N18.4 - Chronic kidney disease, stage 4 (severe) Category: Medical Plan We review all the findings and given all of the abnormalities on the barium swallow including what appears to be gastroparesis I think the trial of Reglan is in order. I explained to him all of the findings and why this medication would be helpful and he is agreeable. We have a gastric emptying study ordered and he was instructed not to take the medication prior to this study but I would like it to confirm that this is actually the problem. The EGD is scheduled for December 28. He continues on lansoprazole 30 mg twice a day, famotidine for breakthrough, and loperamide for occasional breakthrough diarrhea. Return office visit in 4 weeks to evaluate his response to the Reglan EGD SCHEDULED FOR 12/29/2023 BIOPSY GASTRIC EMPTYING STUDY Medications: New metoclopramide HCl (Reglan) 5 mg PO QIDACHS 120 tabs 6RF lansoprazole Pt with severe renal disease needs this medicine as it is metabolized through the liver and he has severe erosive esophagitis 30 mg PO BID 60 caps 6RF K22.10 - Ulcer of esophagus without bleeding, K29.60 - Other gastritis without bleeding, N18.4 - Chronic kidney disease, stage 4 (severe) loperamide (Imodium A-D) stopping sucralfate 4 mg (2 x 2 mg) PO QID 240 caps 6RF R19.7 - Diarrhea, unspecified Discontinued ondansetron Discontinued Reason: Doctor's Order 4 mg PO Q8H PRN 14 tabs 0RF nausea and vomiting sucralfate Discontinued Reason: Doctor's Order 2 grams (2 x 1 gram) PO BID 120 tabs 6RF R19.7 - Diarrhea, unspecified Coding Level of Care Code Est Pt Level 4 (83343) Diagnoses Erosive esophagitis K22.10 Erosive gastritis K29.60 Diarrhea R19.7 Chronic kidney disease, stage 4 (severe) N18.4 Time Spent (min) 39
[2023-10-06 12:50] VITALS: BP 144/78; PULSE 70
== END 2023-10-06 13:36 | disposition home or self-care (01) ==
PROVIDERS: PCP Family Medicine; Visit Provider Nurse Practitioner
DX: K22.10 Ulcer of esophagus without bleeding (principal); K29.60 Other gastritis without bleeding; R19.7 Diarrhea, unspecified; N18.4 Chronic kidney disease, stage 4 (severe)
CPT/HCPCS: 99214

== ENCOUNTER → 2023-10-06 12:22 | Outpatient (BNVA) | payer MEDICAID, SELFPAY | PROVIDERS: PCP Family Medicine; Visit Provider Nurse Practitioner | DX: K22.10 Ulcer of esophagus without bleeding (principal); K29.60 Other gastritis without bleeding; N18.4 Chronic kidney disease, stage 4 (severe); R19.7 Diarrhea, unspecified | CPT/HCPCS: 99212 ==

== ENCOUNTER 2023-11-16 09:55 | Outpatient (REF) | payer MEDICAID, SELFPAY ==
[2023-11-16 12:04] LABS: Anion Gap 12 (12-20); Blood Urea Nitrogen 40 mg/dL (9-16); Carbon Dioxide 16 mmol/L (22-29); Chloride 114 mmol/L (96-108); Estimated Glomerular Filt Rate 16; Glucose Random 239 mg/dL (60-115); Potassium 4.8 mmol/L (3.3-5.1); Sodium 137 mmol/L (135-145)
== END 2023-11-16 09:56 | disposition home or self-care (01) ==
LOC: HO.HHCL 09:55
PROVIDERS: Visit Provider Family Medicine
DX: N18.6 End stage renal disease (principal)
CPT/HCPCS: 36415; 80048

== ENCOUNTER 2024-01-06 12:46 | Outpatient (REF) | payer MEDICAID, SELFPAY ==
[2024-01-06 16:00] LABS: MANUAL DIFF FLAG NO
[2024-01-06 16:02] LABS: Basophils Absolute Auto 0.1 X10*3/uL (0.0-0.2); Basophils Percent Auto 0.8 % (0-2); Eosinophils Absolute Auto 0.4 X10*3/uL (0.0-0.4); Eosinophils Percent Auto 4.3 % (0-4); Hematocrit 25.8 % (42.0-52.0); Hemoglobin 8.7 g/dl (14.0-18.0); Imm Gran Abs Auto 0.04 X10*3/uL (0.00-0.03); Imm Gran Pct Auto 0.5 % (0.0-0.4); Lymphocytes Absolute Auto 1.1 X10*3/uL (1.2-4.9); Lymphocytes Percent Auto 13.3 % (20-40); Mean Corpuscular HGB Conc 33.7 g/dl (31.0-36.0); Mean Corpuscular Hemoglobin 29.2 pg (27.0-33.0); Mean Corpuscular Volume 86.6 fL (80.0-98.0); Mean Platelet Volume 11.7 fL (9.4-12.4); Monocytes Absolute Auto 0.9 X10*3/uL (0.1-1.2); Monocytes Percent Auto 10.6 % (2-11); Neutrophils Absolute Auto 5.9 x10*3/uL (2.0-8.3); Neutrophils Percent Auto 70.5 % (45-73); Platelet Count 313 X10*3/uL (160-400); Red Blood Count 2.98 X10*6/uL (4.60-5.80); Red Cell Distribution Width 14.4 % (11.0-16.0); White Blood Count 8.4 X10*3/uL (4.8-10.8)
== END 2024-01-06 12:47 | disposition home or self-care (01) ==
LOC: HO.HHCL 12:46
PROVIDERS: Visit Provider Family Medicine
DX: S61.209A Unspecified open wound of unspecified finger without damage to nail, initial encounter (principal); R50.9 Fever, unspecified
CPT/HCPCS: 36415; 85025; 87070; 87205

== ENCOUNTER 2024-05-11 15:47 | Outpatient (REF) | payer MEDICAID, SELFPAY ==
[2024-05-11 19:25] LABS: Influenza A PCR NEGATIVE (Negative); Influenza B PCR NEGATIVE (Negative); Resp Syncy Virus RNA Qual PCR NEGATIVE (Negative); SARS COV2 PCR INHOUSE POSITIVE (Negative)
== END 2024-05-11 15:48 | disposition home or self-care (01) ==
LOC: HO.CHCLNP 15:47
PROVIDERS: Visit Provider Family Medicine
DX: J06.9 Acute upper respiratory infection, unspecified (principal)
CPT/HCPCS: 0241U

== ENCOUNTER 2024-11-03 12:14 | Outpatient (REF) | payer MEDICAID, SELFPAY ==
--- NOTE | ~2024-11-03 | XR_ITS ---
EXAMINATION: XR SHOULDER 2 OR MORE VIEWS RIGHT HISTORY: 59 yo M with right shoulder pain send to [place] COMPARISON: Comparison is made with the prior examination dated 11/02/2022. FINDINGS: Two views of the right shoulder are submitted. Osseous mineralization is normal. There is no fracture or dislocation. The glenohumeral joint is maintained. There is mild degenerative change of the AC joint with inferior osteophyte formation noted. The soft tissues are unremarkable. XR/XR shoulder RT min 2V IMPRESSION: Mild degenerative change of the AC joint. Electronically signed by: Sonu Calero MD 11/03/2024 02:15 PM EDT
--- NOTE | ~2024-11-03 | XR_ITS ---
EXAMINATION: XR SHOULDER 2 OR MORE VIEWS LEFT HISTORY: 59 yo M with left shoulder pain send to [facility] COMPARISON: Comparison is made with the prior examination dated 11/02/2022. FINDINGS: Two views of the left shoulder are submitted. Osseous mineralization is normal. There is no fracture or dislocation. The glenohumeral joint is maintained. There is mild degenerative change of the AC joint with inferior osteophyte formation. Vascular stent is seen in the upper arm. XR/XR shoulder LT min 2V IMPRESSION: Mild degenerative change of the AC joint. Electronically signed by: Sonu Calero MD 11/03/2024 02:16 PM EDT
--- OUTSIDE RECORDS SUMMARY | 2024-11-03 12:18 | XMS_ITS | Clinical Summary ---
Author Organization [facility] Address [address] [place] [address] Care Team Providers Care Monkey Trainer Name Role Phone Pcp, No Primary Care Provider Unavailabl e Social History Tobacco Use Types Packs/Day Years Used Date Smoking Tobacco: Never Assessed Sex and Gender Information Value Date Recorded Sex Assigned at Male 09/30/2023 10:38 AM EDT Legal Sex Male 6:37 PM EST Gender Identity Male 09/30/2023 10:38 AM EDT Sexual Orientation Heterosexual (straight) 09/29 10:38 AM EDT Plan of Treatment Health Maintenance Due Date Last Done Comments Hepatitis C Virus Screening 1965 HIV Screening 1978 DTaP/Tdap/Td Vaccines (1 - Tdap) 1984 Hepatitis B Vaccines (1 of 3 - 19+ 3-dose series) 1984 Colonoscopy 2010 Pneumococcal Vaccines 50+ (1 of 1 - PCV) 2015 Zoster (Shingles) Vaccine (1 of 2) 2015 COVID-19 Vaccine (5 - 2023-2 5 season) 2024 08/24/2022, 06/04/2022, 10/04/2020, Additional history exists Influenza Vaccine 01/19/2025 03/16/2023, , 04/05/2020, Additional history exists Insurance * Guarantor: Tito Barboza Account Type Relation to Patient Date of Phone Billing Address Personal/Family Self 1965 [address] [place] [id number] MEDICAID OUT OF STATE [facility] [place] Care Teams Monkey Trainer Relationship Specialty Start Date End Date Pcp, No [address] [place] [address] PCP - General 03/15/20
--- OUTSIDE RECORDS SUMMARY | 2024-11-03 12:18 | XMS_ITS | Encounter Summary ---
Author Organization [employer] Address [address] [facility] 7t [place] [address] Care Team Providers Care Assembler Trim Name Role Phone Zoraida Luo MD Primary Care Provider [phone] Andrea Zarate RN Unavailable [phone] Andrea Zarate RN Unavailable [phone] Sarah Medina PharmD Unavailable [phone] Reason for Visit * Reason Comments Med Refill Encounter Details Date Type Department Care Team (Late st Contact Info) Description 04/13/2023 Refill [facility] MED & PEDS [address] [place] [address] Zoraida Luo MD [address] [place] [address] Social History Tobacco Use Types Packs/Day Years Used Date Smoking Tobacco: Never Passive Smoke Exposure: Never Smokeless Tobacco: Never Alcohol Use Standard Drinks/Week Comments Never 0 (1 standard drink = 0.6 oz pur e alcohol) Depression Answer Date Recorded Patient Health Questionnaire-9 Score 3 07/16/2022 Housing Stability Answer Date Recorded What is your housing situation today? I have alexander armstrong 04/04/[address] you li ve. Do you have problems with any of the following? None of the above 04/04/2023 Food Insecurity Answer Date Recorded Within the past 12 months, y ou worried that your food would run out before you got money to buy more: Sometimes True 2022 Within the past 12 months,th e food you bought just didn't last and you didn't have enough money to get more: Sometimes True 04/04/2023 Transportation Answer Date Recorded In the past 12 months, has l ack of transportation kept you from medical appts, meetings, work or from getting things needed for daily living? No 04/04/2023 Utilities Answer Date Recorded In the past 12 months, has t he electric, gas, oil or water company threatened to shut off services in your home? No 04/04/2023 Depression Answer Date Recorded Patient Health Questionnaire-2 Score 2 07/16/2022 Sex and Gender Information Value Date Recorded Sex Assigned at Male 04/20/2022 10:15 AM EDT Legal Sex Male 10:15 AM EDT Gender Identity Male 04/20/2022 10:15 AM EDT Sexual Orientation Choose not to disclose 2021 10:15 AM EDT documented as of this encounter Plan of Treatment Upcoming Encounters Date Type Department Care Team (Late st Contact Info) Description 11/10/2024 10:45 AM EDT Procedure Visit [facility] MED & PEDS [address] [place] [address] Zoraida Luo MD [address] [place] [address] 11/15/2024 11:30 AM EDT Medication Management [facility] MED & PEDS [address] [place] [address] Sarah Medina PharmD [address] [place] [address] 11/24/2024 1:00 PM EDT Office Visit [facility] ADULT DENTAL [address] [place] [address] Donny Oneill documented as of this encounter Goals Goal Patient Goal Type Associated Problems Recent Progress Patient-Stated? Author Patient will adhere to medication regimen General On track( 023 2:23 PM EDT) No Anderson Zapata, Ivis Hemoglobin A1c < 7 Result Component 11.8(11/04/19 11:17 AM EDT) No Anderson Zapata PharmD documented as of this encounter Visit Diagnoses Not on filedocumented in this encounter Additional Health Concerns Assessment Noted Time PHQ-9 Depression Total Score: 3 07/16/19 2:48 PM EST documented as of this encounter Care Teams Assembler Trim Relationship Specialty Start Date End Date Zoraida Luo MD [address] [place] [address] PCP - General Family Medicine 05/02/21 Andrea Zarate RN [address] [place] [address] Principal Solutions ArchitectPeriodicals Clerk 03/22/24 08/28/24 Andrea Zarate RN [address] [place] [address] Principal Solutions ArchitectPeriodicals Clerk 08/25/24 Sarah Medina PharmD [address] [place] [address] Pharmacist Internal Medicine 10/26/24 Ana Chávez Business Management Manager 07/15/23 [facility] Housing Sales Service Assistant 09/01/23 [facility] 08/25/23 documented as of this encounter
--- OUTSIDE RECORDS SUMMARY | 2024-11-03 12:18 | XMS_ITS | Encounter Summary ---
Author Organization [employer] Address [address] [facility] 7t [place] [address] Care Team Providers Care Optometrist Owner Name Role Phone Zoraida Luo MD Primary Care Provider [phone] Andrea Zarate RN Unavailable [phone] Andrea Zarate RN Unavailable [phone] Sarah Medina PharmD Unavailable [phone] Reason for Referral * Consultation (Routine) - Canceled Specialty Diagnoses / Procedures Referred By Contac t Referred To Contact Pharmacy Diagnoses BEATRIZ (acute kidney injury) (CMS/HCC) Noelle Birmingham, PharmD [address] [place] [address] Phone: tel: fax: Referral ID Status Reason Start Date Expiration Date V isits Requested Visits Authorized [id number] Canceled Continuity of Care 09/28/2023 09/27/2024 1 1 Encounter Details Date Type Department Care Team (Late st Contact Info) Description 09/28/2023 Orders Only [facility] [address] [place] [address] Noelle Birmingham, PharmD [address] [place], [place] [phone] BEATRIZ (acute kidney injury) (CMS/HCC) (Primary Dx) Social History Tobacco Use Types Packs/Day Years Used Date Smoking Tobacco: Never Passive Smoke Exposure: Never Smokeless Tobacco: Never Alcohol Use Standard Drinks/Week Comments Never 0 (1 standard drink = 0.6 oz pur e alcohol) Depression Answer Date Recorded Patient Health Questionnaire-9 Score 8 07/22/2023 Patient Health Questionnaire-9 Score 8 07/22/2023 Last PHQ-9: Questionnaire Data Not on file 0 07/22/2023 Housing Stability Answer Date Recorded What is your housing situation today? I have alexander armstrong 04/04/[address] you li ve. Do you have problems with any of the following? None of the above 04/04/2023 Food Insecurity Answer Date Recorded Within the past 12 months, y ou worried that your food would run out before you got money to buy more: Never True 06/24/2023 Within the past 12 months,th e food you bought just didn't last and you didn't have enough money to get more: Never True 09/2023 Transportation Answer Date Recorded In the past [...] Date Recorded Patient Health Questionnaire-2 Score 2 07/22/2023 Sex and Gender Information Value Date Recorded [...] Description 11/10/2024 10:45 AM EDT Procedure Visit [facility] MED & PEDS [address] [place] [address] Zoraida Luo MD [address] [place] [address] 11/15/2024 11:30 AM EDT Medication Management [facility] MED & PEDS [address] [place] [address] Sarah Medina, PharmD [address] [place] [address] 11/24/2024 1:00 PM EDT Office Visit [facility] ADULT DENTAL [address] [place] [address] Donny Oneill Scheduled Referrals Name Type Priority Associated Diagnoses Orde r Schedule Referral to Pharmacy [place] Outpatient Referral Routine BEATRIZ (acute kidney injury) ([facility]) Ordered: 09/28/2023 documented as of this encounter Goals Goal Patient Goal Type Associated Problems Recent Progress Patient-Stated? Author Patient will adhere to medication regimen General On track( 023 2:23 PM EDT) No Anderson Zapata, PharmD Hemoglobin A1c < 7 Result Component 11.8(11/04/19 11:17 AM EDT) No Anderson Zapata, PharmD documented as of this encounter Visit Diagnoses Diagnosis BEATRIZ (acute kidney injury) ([facility])- Primary documented in this encounter Additional Health Concerns Assessment Noted Time PHQ-9 Depression Total Score: 8 07/22/19 11:43 AM EST documented as of this encounter Care Teams Optometrist Owner Relationship Specialty Start Date End Date Zoraida Luo MD [address] [place] [address] PCP - General Family Medicine 05/02/21 Andrea Zarate RN [address] [place] [address] Physical Sciences InstructorDispatcher Maintenance Service 03/22/24 08/28/24 Andrea Zarate RN [address] [place] [address] Physical Sciences InstructorDispatcher Maintenance Service 08/25/24 Sarah Medina PharmD [address] [place] [address] Pharmacist Internal Medicine 10/26/24 Ana Chávez Senior Web Designer 07/15/23 [facility] Housing Poultry Inspector 09/01/23 [facility] 08/25/23 documented as of this encounter
--- OUTSIDE RECORDS SUMMARY | 2024-11-03 12:18 | XMS_ITS | Encounter Summary ---
Author Organization [employer] Address [address] [facility] [address] [place] [address] Care Team Providers Care Sap Treasury Consultant Name Role Phone Zoraida Luo MD Primary Care Provider [phone] Andrea Zarate RN Unavailable [phone] Sarah Medina PharmD Unavailable [phone] Encounter Details Date Type Department Care Team (Latest Contact Info) Description 11/03/2024 Travel Social History Tobacco Use Types Packs/Day Years Used Date Smoking Tobacco: Never Passive Smoke Exposure: Never Smokeless Tobacco: Never Alcohol Use Standard Drinks/Week Comments Never 0 (1 standard drink = 0.6 oz pur e alcohol) Alcohol Answer Date Recorded Frequency of Alcohol Consumption Not on file 04/07/2024 Average Number of Drinks Not on file 024 Frequency of Binge Drinking Not on file 03/21 Score 0 04/07/2024 Depression Answer Date Recorded Patient Health Questionnaire-9 Score 8 07/22/2023 Patient Health Questionnaire-9 Score 8 07/22/2023 Last PHQ-9: Questionnaire Data Not on file 0 07/22/2023 Housing Stability Answer Date Recorded What is your housing situation today? I have alexander armstrong 10/25/[address] you li ve. Do you have problems with any of the following? None of the above 10/25/2024 Food Insecurity Answer Date Recorded Within the past 12 months, y ou worried that your food would run out before you got money to buy more: Never True 10/25/2024 Within the past 12 months,th e food you bought just didn't last and you didn't have enough money to get more: Never True 12/2024 Transportation Answer Date Recorded In the past 12 months, has l ack of transportation kept you from medical appts, meetings, work or from getting things needed for daily living? No 10/25/2024 Utilities Answer Date Recorded In the past 12 months, has t he electric, gas, oil or water company threatened to shut off services in your home? No 10/25/2024 Depression Answer Date Recorded Patient Health Questionnaire-2 Score 2 07/22/2023 Internet Access Answer Date Recorded Internet Access Q1 Yes 10/25/2024 Internet Access Q2 Not on file 10/25/2024 Sex and Gender Information Value Date Recorded [...] Description 11/10/2024 10:45 AM EDT Procedure Visit [facility] MED & PEDS [address] [place] [address] Zoraida Luo MD [address] [place] [address] 11/15/2024 11:30 AM EDT Medication Management [facility] MED & PEDS [address] [place] [address] Sarah Medina PharmD [address] [place] [address] 11/24/2024 1:00 PM EDT Office Visit [facility] ADULT DENTAL [address] [place] [address] Donny Oneill documented as of this encounter Goals Goal Patient Goal Type Associated Problems Recent Progress Patient-Stated? Author Patient will adhere to medication regimen General On track( 023 2:23 PM EDT) No Anderson Zapata, PharmD Hemoglobin A1c < 7 Result Component 11.8(11/04/19 25 11:17 AM EDT) No Anderson Zapata PharmD documented as of this encounter Visit Diagnoses Not on filedocumented in this encounter Additional Health Concerns Assessment Noted Time PHQ-9 Depression Total Score: 8 07/22/19 24 11:43 AM EST documented as of this encounter Care Teams Sap Treasury Consultant Relationship Specialty Start Date End Date Zoraida Luo MD [address] [place] [address] PCP - General Family Medicine 05/02/21 Andrea Zarate, PATRIA [address] [place] [address] Sausage MakerQuality Assurance Clerk 08/25/24 Sarah Medina PharmD [address] [place] [address] Pharmacist Internal Medicine 10/26/24 Ana Chávez Hand Sample Maker 07/15/23 [facility] Housing Rehabilitation Technician 09/01/23 [facility] 08/25/23 documented as of this encounter
--- OUTSIDE RECORDS SUMMARY | 2024-11-03 12:18 | XMS_ITS | Encounter Summary ---
Author Organization [employer] Address [address] [facility] 7t [place] [address] Care Team Providers Care Petrology Teacher Name Role Phone Zoraida Luo MD Primary Care Provider [phone] Andrea Zarate RN Unavailable [phone] Andrea Zarate RN Unavailable [phone] Sarah Medina PharmD Unavailable [phone] Reason for Visit * Reason Comments Med Refill Encounter Details Date Type Department Care Team (Late st Contact Info) Description 05/02/2024 Refill [facility] MED & PEDS [address] [place] [address] Zoraida Luo MD [address] [place] [address] Bilateral primary osteoarthritis of knee Social History Tobacco Use Types Packs/Day Years [...] Description 11/10/2024 10:45 AM EDT Procedure Visit [facility] MED & PEDS [address] [place] [address] Zoraida Luo MD [address] [place] [address] 11/15/2024 11:30 AM EDT Medication Management [facility] MED & PEDS [address] [place] [address] Sarah Medina PharmD [address] [place] [address] 11/24/2024 1:00 PM EDT Office Visit [facility] ADULT DENTAL [address] [place] [address] Donny Oneill documented as of this encounter Goals Goal Patient Goal Type Associated Problems Recent Progress Patient-Stated? Author Patient will adhere to medication regimen General On track( 023 2:23 PM EDT) No Anderson Zapata, Ivis Hemoglobin A1c < 7 Result Component 11.8(11/04/19 11:17 AM EDT) No Anderson Zapata PharmD documented as of this encounter Visit Diagnoses Diagnosis Bilateral primary osteoarthritis of knee documented in this encounter Additional Health Concerns Assessment Noted Time PHQ-9 Depression Total Score: 8 07/22/19 11:43 AM EST documented as of this encounter Care Teams Petrology Teacher Relationship Specialty Start Date End Date Zoraida Luo MD [address] [place] [address] PCP - General Family Medicine 05/02/21 Andrea Zarate RN [address] [place] [address] Strategy Planning ConsultantNaval Aircrewman Mechanical 03/22/24 08/28/24 Andrea Zarate RN [address] [place] [address] Strategy Planning ConsultantNaval Aircrewman Mechanical 08/25/24 Sarah Medina PharmD [address] [place] [address] Pharmacist Internal Medicine 10/26/24 Ana Chávez Preschool Head Teacher 07/15/23 [facility] Housing Tar Man 09/01/23 [facility] 08/25/23 documented as of this encounter
--- OUTSIDE RECORDS SUMMARY | 2024-11-03 12:18 | XMS_ITS | Clinical Summary ---
Author Organization [employer] Address [address] [facility] [address] [place] [address] Care Team Providers Care Donor Processor Name Role Phone Zoraida Luo MD Primary Care Provider [phone] Andrea Zarate RN Unavailable [phone] Sarah Medina PharmD Unavailable [phone] Allergies Active Allergy Reactions Criticality Noted Date Comments Diphenhydramine 08/12/2020 Hydromorphone 08/12/2020 Hydromorphone Hcl Anaphylaxis High 10/02/2022 Morphine 04/16/2014 Nsaids Other reaction(s): unspecified Regadenoson Itching Low 10/06/2022 Medications * This document contains information received from the source organization and may not represent a complete record from that organization. calcitriol (Rocaltrol) 0.5 MCG capsule Take 1 capsule by mouth at bed time. Active lidocaine (Lidoderm) 5 % patch Place 1 patch on the skin at bed time. Active albuterol (2.5 MG/3ML) 0.083% nebulizer solutionIndicat ions:Mild intermittent asthma with (acute) exacerbation INHALE ONE AMPULE USING A NEBULIZER THREE TIMES DAILY NEEDED 180 mL 1 023 Active Blood Pressure kit 1 Units in the morning. 1 kit 023 Active gabapentin (Neurontin) 300 MG capsule Take 1 capsule (300 mg) by mouth 2 times daily. Patient wants med separately no in his med boxes for now 60 capsule 11 023 Active Blood Glucose Monitoring Suppl (eDiets.comStyle Calmar Lite) w/Device kit 022 Active psyllium (Metamucil) 58.6 % packet Take 1 packet by mouth in the morning. Mix and drink with at least 8 ounces of water or juice. Active metoclopramide (Reglan) 5 MG tablet TAKE 1 TABLET BY MOUTH 4 TIMES A DAY BEFORE A MEAL/BED Active azaTHIOprine (Imuran) 50 MG tablet Take 2 tablets by mouth Once per day. Active amLODIPine (Norvasc) 5 MG tablet Take 1 tablet by mouth in the morning. Active cholestyramine (Questran) 4 g packet Take 4 g by mouth with breakfast and with evening meal. 024 2024 Active sodium bicarbonate 650 MG tablet Take 1,300 mg by mouth 3 times daily. 024 2024 Active insulin lispro (HumaLOG) 100 UNIT/ML injection INJECT SIX UNITS SUBCUTANEOUSLY THREE TIMES DAILY WITH BREAKFAST, WITH LUNCH AND WITH DINNER 15 mL 3 Active glucose blood (FREESTYLE LITE) test strip TEST BLOOD SUGAR FOUR TO FIVE TIMES DAILY 100 strip 11 Active Blood Glucose Monitoring Suppl (FreeStyle Lite) w/Device kit 1 kit 4 times daily. 1 kit 024 2024 Active metoprolol succinate XL (Toprol-XL) 50 MG 24 hr tablet TAKE ONE TABLET EVERY MORNING 90 tablet 3 Active traMADol (Ultram) 50 MG tablet Take 50 mg by mouth if needed in the morning and at bedtime. Active tamsulosin (Flomax) 0.4 MG 24 hr capsule TAKE 2 CAPSULES EVERY DAY AT BEDTIME 180 capsule 1 Active cholecalciferol (Vitamin D-3) 50 MCG (2000 UT) capsule Take 1 capsule (50 mcg) by mouth Once per day. 120 capsule 3 Active loperamide (Imodium) 2 MG capsule TAKE ONE CAPSULE FOUR TIMES DAILY NEEDED FOR DIARRHEA 120 capsule 2 Active Acetaminophen Extra Strength 500 MG tabletIndicatio ns:Exudative tonsillitis TAKE TWO TABLETS EVERY 8 HOURS NEEDED MILD PAIN 90 tablet Active atorvastatin (Lipitor) 10 MG tablet TAKE ONE TABLET EVERY MORNING 90 tablet 1 Active Epogen 55095 UNIT/ML injection Active BELATACEPT IV Infuse into a venous catheter. Active cilostazol (Pletal) 50 MG tablet TAKE ONE TABLET IN THE MORNING AND EVENING 60 tablet Active Aspirin Adult Low Strength 81 MG EC tablet TAKE ONE TABLET EVERY MORNING 90 tablet Active hydrOXYzine HCl (Atarax) 10 MG tablet TAKE ONE TABLET TWICE DAILY IN THE MORNING AND AT BEDTIME 180 tablet Active famotidine (Pepcid) 20 MG tabletIndicatio ns:Gastroesopha geal reflux disease, unspecified whether esophagitis present Take 1 tablet (20 mg) by mouth Once per day. 30 tablet 2025 Active Continuous Glucose Machine Oiler (FreeStyle John 3 Fountain) deviceIndicatio ns:Other specified diabetes mellitus with hyperglycemia, with long-term current use of insulin ([facility]) 1 each Once per day. Use as directed for CGM 1 each Active Continuous Glucose Sensor (FreeStyle John 3 Plus Sensor) miscIndications :Other specified diabetes mellitus with hyperglycemia, with long-term current use of insulin ([facility]) 1 each every 15 days. Apply 1 every 15 days as directed for CGM 2 each Active Omeprazole 20 MG tablet delayed-release Take 1 tablet (20 mg) by mouth 2 times daily. 180 tablet 025 2024 Active furosemide (Lasix) 40 MG tablet Take 40 mg by mouth if needed each day. Active chlorhexidine (Peridex) 0.12 % solution Swish 15 mL morning and night for 1 minute. Spit, do not swallow. Do not eat or drink for 30 minutes following use. 473 mL 025 Active Pentips Generic Pen [place] 31G X 5 MM misc USE FOUR DAILY DIRECTED 100 each 025 Active Trulicity 4.5 MG/0.5ML solution auto-injector INJECT ONE PEN (=4.5MG) SUBCUTANEOUSLY ONCE A WEEK DIRECTED 2 mL Active insulin degludec (Tresiba FlexTouch) 100 UNIT/ML injection Inject 26 Units under the skin at bedtime. 15 mL 2 025 Active traZODone (Desyrel) 50 MG tablet Take 1 tablet (50 mg) by mouth at bedtime. 90 tablet 1 025 Active Continuous Glucose Sensor (FreeStyle John 2 Sensor) miscIndications :Other specified diabetes mellitus with hyperglycemia, with long-term current use of insulin ([facility]) TEST BLOOD SUGAR FOUR TIMES DAILY AND NEEDED 2 each 024 2024 Discontinued(M ed list cleanup (will not trigger notification to Pharmacy)) Continuous Glucose Machine Oiler (FreeStyle John 2 Fountain) deviceIndicatio ns:Other specified diabetes mellitus with hyperglycemia, with long-term current use of insulin ([facility]) TEST BLOOD SUGAR FIVE TIMES DAILY 1 each 024 2024 Discontinued(M ed list cleanup (will not trigger notification to Pharmacy)) insulin glargine (Lantus) 100 UNIT/ML pen Inject 20 Units under the skin 2 times daily. 3 mL 2 024 2024 Discontinued Dulaglutide (Trulicity) 4.5 MG/0.5ML solution auto-injector Inject 0.5 mL (4.5 mg) under the skin 1 (one) time per week. 2 mL 3 024 2024 Discontinued pen needle 32G x 5 mm misc Inject 100 each under the skin 4 times daily. Use as instructed 100 each 3 025 2024 Discontinued famotidine (Pepcid) 20 MG tablet Take 20 mg by mouth 2 times daily. 025 2024 Discontinued(M ed list cleanup (will not trigger notification to Pharmacy)) traZODone (Desyrel) 50 MG tablet TAKE 1/2 TABLET AT BEDTIME 45 tablet 5 025 2024 Discontinued(R eorder (will not trigger notification to Pharmacy)) pantoprazole (ProtoNix) 40 MG EC tabletIndicatio ns:Gastroesopha geal reflux disease, unspecified whether esophagitis present Take 1 tablet (40 mg) by mouth before breakfast. Do not crush, chew, or split. 180 tablet 3 025 2024 Discontinued(M ed list cleanup (will not trigger notification to Pharmacy)) Lantus SoloStar 100 UNIT/ML pen INJECT 20 UNITS SUBCUTANEOUSLY TWICE DAILY 15 mL 2 025 2024 Discontinued(A lternate therapy) Hospital, Clinic, or Other Facility Administered Medication Ordered Dose Route Frequency Start Date End Date Status Insulin Lispro solution 10 UnitsIndications:Type 2 diabetes mellitus with hyperglycemia, with long-term current use of insulin ([facility]) 10 Units IJ Once 10/05/2024 10/05/2024 Ended Active Problems Patient Care Coordination No te Formatting of this note migh t be different from the original. C3/CM Sierra Abel RN Problem Noted Date Diagnosed Date Chronic right shoulder pain 11/03/2024 Chronic left shoulder pain 11/03/2024 Swelling of both knees 05/17/2024 COVID-19 05/11/2024 Assessment & Plan (05/11/2024 3:04 PM EST): + COVID, DOI # 2, unable to prescribe Paxlovid due to ESRD. Recommended supportive care. 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 Chronic kidney disease, stage 4 (severe) 024 ESRD (end stage renal disease) 11/10/2023 Assessment & Plan (11/10/2023 1:47 PM EDT): Ordering lab work for recheck for 1 week. F/u with [facility]. C. difficile colitis 09/01/2023 Assessment & Plan (09/01/2023 10:03 PM EDT): Patient reports symptoms have slowly subsidized and is better. 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 . The patient has the following risk factors for developing incontinence : impaired mobility, increasing age, obesity). Dysphagia 07/30/2023 Assessment & Plan (07/30/2023 4:07 PM EST): Patient Protonix medication was increased from 20 mg to 40 mg. Barium swallow was sent and patient was referred to GI, he has had multiple hospitalizations due to these symptoms. Unknown etiology. Class 1 obesity 07/30/2023 07/30/2023 Mild anxiety 07/22/2023 Leg edema, left 04/05/2023 Assessment & Plan (04/05/2023 2:31 PM EDT): Patient with complaints of L leg edema will have a hold on Amlodipine S/P BKA (below knee amputation) unilateral, righ t 03/25/2023 Overview (03/25/2023): ?? Right BKA performed 01/25/23 Assessment & Plan (03/25/2023 11:35 AM EDT): Upcoming appt with Vascular in Mar 2023 Candidiasis of mouth 03/23/2023 BEATRIZ (acute kidney injury) 03/23/2023 Requires daily assistance fo r activities of daily living (ADL) and comfort needs 03/23/2023 Assessment & Plan (08/16/2023 10:24 AM EST): Patient reports he feels unhappy about his allotted time for [employer]OLOG[employer]ACH[employer] services, reports that it is not sufficient to cover his ADLs/IADLs. He is also has been waiting for more then 4 months on a motorized wheelchair/scooter, he has not gotten to PT hence why the prescription has not been sent as it is a requirement. At this time, I contacted managed care liaison for patient to assist with this and also placed an outside PT referral since multiple attempt to get home PT have failed. Assessment & Plan (03/23/2023 5:24 PM EDT): Patient was scheduled for f/up DM but was unable to review his cGM nor his control. 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 - Calling DME specialist: he received his commode & shower chair, & walker. Reports that the shower chair is too big, encouraged patient to call [facility] at , unclear if he will make this call. Pending hospital bed and electric scooter, encouraged patient to call [facility]. Phantom limb syndrome with pain 02/26/2023 Assessment & Plan (05/06/2023 3:14 PM EST): Patient still presents complaints of leg pain, therefore, will be increasing Gabapentin: 100mg to 300mg. Assessment & Plan (02/26/2023 1:08 PM EDT): Advised patient about phantom limb syndrom, which can cause feeling of still having leg after amputation. Will need to address in next weeks appointment. Mobility impaired 02/26/2023 Assessment & Plan (07/30/2023 4:10 PM EST): Xavf-ly-Xqyt Attestation: I certify that this patient is under my care and that I had a oprs-wa-vsky visit encounter that meets the provider fehc-jp-lytd encounter requirements with this patient. Diagnosis and Reasoning for Home Care Referral: Below knee amputations, impaired mobility This encounter that took place was directly related to the medical condition that supports the patient's eligibility for home health services. Listed below is the primary reason for home health care services and the specific intervention: Needs home PT eval, as we have been trying to get him into PT to eval his need for a motorized wheelchair Primary Diagnosis Code for Home Health: Needs help ADLS, BKA, DM uncontrolled, joint aches, dysphagia, developmental delay, poor health literacy. Assessment & Plan (03/23/2023 5:27 PM EDT): Face- to -face Attestation: I certify that this patient is under my care and that I had a zbvv-[id number] visit encounter that meets the provider xpsc-jx-lwiu encounter requirement with this patient. ?? Diagnosis and Reasoning for Home Care Referral: ?? This encounter that took place was directly related to the medical condition that supports the patient's eligibility for home health services. Listed below is the primary reason for home health care services and the specific intervention: ?? Primary Diagnosis Code for Home Health: BKA, mobility impairment, episodes of hypoglycemia, ESRD, uncontrolled insulin dependent diabetes. Poor health literacy. ?? Clinical Findings that Support Patient's Home Health Eligibility: ?? Summary of clinical findings under the primary diagnosis related specific need for G[employer]ER: - patient needs assessment of his ADL needs, per report dependent on most after amputation, he lives alone and requires this assist, along with modification of his living condition. - Dependent on all IADLs - patient has poor health literacy which further complicates his health issues - he has poor compliance with visits and medications, in the setting of him not understanding his needs ~~~~~~ He also has a need for PT evaluation to assess his need for a motorized scooter. Needs assistance with this. Assessment & Plan (02/26/2023 1:23 PM EDT): Iyml-mc-[id number] Attestation: I certify that this patient is under my care and that I had a nhgy-zq-vizr visit encounter that meets the provider touj-ie-xzhc encounter requirements with this patient. Diagnosis and Reasoning for Home Care Referral: This encounter that took place was directly related to the medical condition that supports the patient's eligibility for home health services. Listed below is the primary reason for home health care services and the specific intervention: Primary Diagnosis Code for Home Health: BKA, mobility impairment, episodes of hypoglycemia, ESRD, uncontrolled insulin dependent diabetes. Poor health literacy. Clinical Findings that Support Patient's Home Health Eligibility: Summary of clinical findings under the primary diagnosis related specific need for METEOROLOGY TEACHER: - patient needs assessment of his ADL needs, per report dependent on most after amputation, he lives alone and requires this assist, along with modification of his living condition. - Dependent on all IADLs - patient has poor health literacy which further complicates his health issues - he has poor compliance with visits and medications, in the setting of him not understanding his needs ~~~~~~ He also has a need for PT evaluation to assess his need for a motorized scooter. Needs assistance with this. Incontinence of feces with fecal urgency 023 Cellulitis of right foot 11/19/2022 Left-sided chest wall pain 11/19/2022 Bilateral primary osteoarthritis of knee 023 Syncope and collapse 10/30/2022 Orthostatic hypotension 10/30/2022 Atrial arrhythmia 10/30/2022 Assessment & Plan (11/26/2022 5:39 PM EDT): Pt's EKG today is unchanged from previous one in 08/2021 ,Noted sinus arrhythmia, lateral repolarization disturbance ,to consider ischemia ,left axis deviation , TWI in lead aVL -pt reports saw chemical lab supervisor in the past--advised today to f w PCP and check if there is plan to continue care w cardiology. Chronic diarrhea 07/16/2022 Assessment & Plan (11/10/2023 10:56 AM EDT): Reports he is not taking he colestid rx by GI because he feel it was making his diarrhea worse. Assessment & Plan (08/16/2023 10:22 AM EST): Unknown etiology, has upcoming appt with GI, reports severe symptoms, no improvement with stopping trulicity. At this point will refill his imodium and f./up on consult notes. Assessment & Plan (07/16/2022 5:35 PM EST): Patient has had extensive w/u by gastroenterology in [facility] for this chronic diarrhea. He has not gone to his colonscopy/endoscopy as they had recommended. I have given patient number to call. Chest pain at rest 05/22/2022 Assessment & Plan (07/02/2022 4:29 PM EST): Patient was seen [address] Morley for similar compliant, CP at rest, although he did have some chest wall tenderness, his EKG in that visit was abnormal and given risk factors he was referred to cardiology stat. Will also send for stress test to r/o coronary syndrome as culprit. If symptoms recur strongly encouraged patient to be seen in the ED Assessment & Plan (05/22/2022 10:26 AM EST): Chronic CP, although reports that for the last week is different and sometimes associated with palpitations. Will send referral to cardiology and also for stress test. Will need to send to [facility] and f/u with results Mild intermittent asthma 05/19/2022 Osteomyelitis of forefoot 05/19/2022 Diabetic foot infection 05/18/2022 Assessment & Plan (03/23/2023 3:10 PM EDT): -Recommended patient to call agency to be able to have a METEOROLOGY TEACHER assigned. Assessment & Plan (02/26/2023 1:09 PM EDT): Mentioned patient about ulceration care, he has a visiting nurse, will need to monitor. He has an appt with vasc surg on Wednesday. Assessment & Plan (11/26/2022 5:40 PM EDT): Pt with right heel wound infection ,received mx courses of ATBs so far but reports x last 2 days worsening pain and new discharge VS here stable -recent CT of right foot 11/18/2021 not showing signs of OM ,only findings consistent w celullitis and also had recent XR at previous hospitalization and as well not showing OM Pt is immunosuppressed on tacrolimus and per record on chronic steroids-pt thinks this was dc by his renal specialist but not sure. -will start empiric tx for diabetic foot infection this time will cover as well x possible pseudomonas and also to continue x MRSA---given his CKD will do levo 750 mg x1 and then 250 mg daily x total of 14 days and doxy BID x 2 weeks . For levofloxacin use did today EKG with QTC wnl at 413 ,sinus arrhyhtmia,Left axis deviation and repolarization abnormalities---from last chem at hospital 11/18 had WBC 14K and chem Cr: 3.01,GFR 22 and wnl electrolytes --I also called pharmacy here and discussed possible interaction w levo ( w hydromorphone allergy and w tacrolimus ) was told by pharmacy that there are no big contraindications x use of levo -advised pt to repeat CBC and chem to monitor chem in 1 week -ordered labs today to check x electrolytes and to avoid interactions w tacrolimus ,explained to pt to monitor x any CV symptoms -if no improvement may need to consider to add anaerobic coverage -removing today from system allergy to amoxicillin -given reports tolerated Augmentin before w no SE. -advised to see tomorrow wound care -planned x vascular evaluation -obtained today wound cx aerobic and anaerobic -referred today to podiatry -denies having care -advised to f closely with his PCP to monitor as well infection and DM management -per pt DM is better controlled w CBGS in 100 to 140s in fasting but had once low CBG reading-reports to be following as well w scrap baler -alarm signs and symptoms discussed w pt in cases needs to go to ED -advised to improve hydration of skin of feet and use Vaseline Over intact -dry skin Assessment & Plan (11/19/2022 12:41 PM EDT): Open wound 2.9 cm x 3.0 cm, surrounding area w/o erythema but was given antibiotics yesterday in the ED, he does have granulation tissue, reviewed X ray report from yesterday and no signs of osteomyelitis, per pt has wound clinic appt tomorrow. Photo of wound scanned to media with patient's permission. Hyperparathyroidism due to renal insufficiency 1 07/18/2021 Assessment & Plan (11/22/2023 2:11 PM EDT): Discussed current medications and refills as needed. Called [facility] office to try and get through to confirm appointments for F/u in one week. Diabetes mellitus 05/18/2022 Assessment & Plan (06/15/2024 3:10 PM EST): Glucose is elevated, increasing Trulicity to 4.5 mg and return to 20 units of Lantus BID. Relevant Medication Dulaglutide (Trulicity) 4.5 mg / 0.5 ml solution auto-injector Assessment & Plan (05/17/2024 10:31 AM EST): Discussed importance of nutritional modifications. Increasing Lantus to 20 units BID. Referral to Diabetic Education. Relevant Medications Insulin Glargine (Lantus) 100 unit / ml pen Assessment & Plan (04/26/2024 10:03 AM EST): Uncontrolled, but patient did bring into today his glucose readings. Adjusted medication as needed. Have been adjusting GLP-1, this had been stopped in the past due to his chronic diarrhea and we wanted to assess if this was a culprit but symptoms continued despite discontinuation and patient has improved with GLP-1. Target fasting 80-130 mg/dL, target pp < 180 mg/dL. Target A1c <7%. Assessment & Plan (03/09/2024 6:45 PM EDT): Uncontrolled, Continue on Lantus. Increasing Lantus from 30 units to 34. If glucose is above 130, increase 2 units every 3 days. Prescribing Trulicity. Relevant Medication Dulaglutide (Trulicity) 0.75 mg/0.5 ml solutions pen-injector Assessment & Plan (03/02/2024 4:46 PM EDT): Contacted [facility] and spoke with Annette to request pt's daily glucose and BP readings are faxed every 2 wks. Pt glucose readings are uncontrolled. Increasing Lantus to 34 units. Ordering a glucose sensor for daily monitoring. Follow up in one week with glucose machine and written readings. Relevant Medication Insulin Glargine (Lantus) 100 unit/ ml pen Assessment & Plan (11/10/2023 1:48 PM EDT): Advised to monitor blood glucose at home with machine. Assessment & Plan (09/01/2023 10:09 PM EDT): Uncontrolled: Patient A1C is 7.9% which is better than a month ago when he came in. Continue same treatment regimen. Check glucose 4-5 times a day. F/U in 1 month. Future Appointments Date Time Provider Department Center 09/14/2023 1:00 PM Natasha Bernard RN [facility] 10/01/2023 10:00 AM Zoraida Luo MD [facility] Labs: Glucose, HGB A1C Assessment & Plan (08/16/2023 10:07 AM EST): TAR 48%, TIR 40% &TBR 12%. Lab Results Component Value Date HGBA1C 8.9 (A) 07/30/2023 Elevated fasting, will increase lantus 30 U subcutaneous & ISS. Will discontinue trulicity give side effects. Reports he has minimal relief with stopping med, continues with diarrhea. Assessment & Plan (07/30/2023 4:07 PM EST): Reviewed cGM: TAR 47%, TIR 53%, no episodes of hypoglycemia in the last 2 weeks. I have asked patient to hold on the trulicityfor the next 2 weeks to assess if this is what is causing the upset stomach symptoms. Assessment & Plan (05/06/2023 3:14 PM EST): Unable to make changes, since patient was unable to present data from home to make an appropriate adjustments, even though patient reports having episodes of hypoglycemia. Will schedule follow up appointment. Assessment & Plan (04/05/2023 2:34 PM EDT): Uncontrolled: Lowered fasting glucose and started on Trulicity. -Recommended to monitor glucose readings 4 times a day, write results on paper and bring upon next visit. -Advised patient to lower insulin levels at nighttime. Assessment & Plan (03/25/2023 11:33 AM EDT): -CGM in place -Reports current regimen 6 units humalog AC, 10 units lantus at bedtime -Denies any recent episodes of hypoglycemia Assessment & Plan (02/26/2023 12:59 PM EDT): Patient was denied cGM which he will strongly benefit given he is insulin dependent and has hypoglycemia unawareness. He was previously on this monitoring and is unclear why this was not approved to be continued by insurance, will re-submit PA and f/up next week with patient to assess his control. At this moment not able to provide glucose numbers. Had to provide patient with glucose. Assessment & Plan (07/02/2022 4:32 PM EST): Reviewed cGM TAR of 74%, TIR 23% TBR 3% for the last month, target TIR of > 70%. Has had 8 episodes of hypoglycemia, usually in the afternoon, will lower meal time insulin. No nighttime hypoglycemia and morning elevated fastings, will increase lantus to 52 U. Target glucose fasting 80-130 mg/dL Cont followup with endo Assessment & Plan (05/22/2022 10:25 AM EST): Reviewed cGM, uncontrolled. Fasting averages of 220 mg/dL, some episodes of hypoglycemia. At this point will incr back his lantus to 40 U (no night-time hypoglycemia, usual hypoglycemia is midday per sensor) and will decr meal novolog to 8 U in breakfast, incr 10 U with lunch and 8 with dinner. Unclear type of DM that he has, per some notes he is type I and others type II. Claims saw endo 6 weeks ago, no records available for review at this moment. Open wound of foot except toes with complication 05/18/2022 Peripheral vascular disease 01/27/2022 Mild episode of recurrent major depressive disor sony 09/23/2017 Assessment & Plan (07/22/2023 11:57 AM EST): PROGRESS NOTE: ID: Tito is a 58 y.o. Decline to answer choose not to disclose-identified cis-male with previous documented hx of Depression MH services including OP Psychotherapy psychopharmacology who presents for Anxiety and Depression. Hx of trauma in adulthood. Lack of social support. During IBH Consult Tito presenting with loss of interests/pleasure , changes in sleep difficulty falling asleep and difficulty staying asleep , change in appetite or weight reduce appetite and unintentional weight loss and excessive worry/anxiety, difficulty controlling worry, and sleep disturbance difficulty falling asleep and difficulty staying asleep ; for a period of 6-12 mo, for all symptoms in the context of 6 months ago had went under a foot amputation and he is lacking of support, currently needs assistance with ADLS and IADLs, has suffer multiples falls due to DMEs ( wheelchair not fits in the bathroom) Tito reported he has requested a ramp and housing has not provide that support, he also has home health aid 1.5 hr per day which doesn't provide the enough time for support that he needs. PLAN: New/Additional Services needed Off-site services for Behavioral Health Integration Plan External OP therapy referral and OP psychiatry Referral Patient Self Plan Patient to utilize skills provided in intervention , Patient to reach out to [facility] team as needed, and Comply with medication prescribed by PCP. Acquired hypothyroidism 06/09/2016 History of renal transplant 06/28/2014 Gastroesophageal reflux disease 10/04/2013 Assessment & Plan (11/22/2023 2:10 PM EDT): Prescribing Carafate for symptoms. Assessment & Plan (07/16/2022 5:36 PM EST): Patient with chronic gastritis, at this point will add course of mylanta but encouraged patient to reach his gastroenterology team. Hypertension 05/06/2012 Assessment & Plan (04/05/2023 2:32 PM EDT): Uncontrolled: patient with a slight elevated blood pressure with readings of 128/106 mmHg, had an increase of medication. Follow up in 2 weeks. End stage renal disease 03/02/2011 Resolved Problems Problem Noted Date Diagnosed Date Resolved Date Infection of right below knee amputation 03/25/2023 03/25/2023 Chronic kidney disease 11/19/202203/02 Facial cellulitis 05/22/2022 05/22/2022 Assessment & Plan (05/22/2022 10:22 AM EST): Patient reports improvement since hospitalization but continues with some redness in his cheek. Reports completed antibiotics and has visiting nurse. At this point will send 5 day round of abx and f/u if no improvement. Stage 4 chronic kidney disease 11/10/2018 05/22/2022 Encounters Date Type Department Care Team Description 11/03/2024 11:30 AM EDT Office Visit [facility] [address] [place] [address] Zoraida Luo MD Other specified diabetes mellitus with hyperglycemia, with long-term current use of insulin ([facility]) (Primary Dx); Chronic right shoulder pain; Chronic left shoulder pain; Requires daily assistance for activities of daily living (ADL) and comfort needs; Mobility impaired; Leg edema, left; S/P BKA (below knee amputation) unilateral, right ([facility]/HCC) 11/03/2024 Travel 11/01/[address] [address] Zoraida Luo MD Care Management (C3CM- f/u call) 11/01/2024 Patient Outreach [address] [address] Zoraida Luo MD Care Coordination (SDOH f/u) 11/01/2024 Travel 10/26/2024 Travel 10/26/[address] [address] Zoraida Luo MD 10/25/2024 Patient Outreach [address] [address] Zoraida Luo MD Pre-visit Planning (SDOH screening negative and Tobacco screening negative) 10/23/[address] [address] Zoraida Luo MD Care Management (C3CM- f/u call) 10/20/2024 Telephone [facility] [address] [place] [address] Zoraida Luo MD Medication Question 10/19/2024 Refill [facility] [address] [place] [address] Zoraida Luo MD 10/17/2024 Patient Outreach [address] [address] Zoraida Luo MD Care Coordination (SDOH f/u) 10/17/[address] [address] Zoraida Luo MD Care Management (C3CM- f/u call lvm) 10/14/2024 Refill [facility] [address] [place] [address] Zoraida Luo MD 10/10/[address] [address] Zoraida Luo MD ER Follow-up 10/10/[address] [address] Zoraida Luo MD Care Management (C3CM- f/u call/ status check) 10/10/2024 Refill [facility] [address] [place] [address] Zoraida Luo MD 10/05/2024 2:20 PM EDT Office Visit [facility] [address] [place] [address] Lisbeth Amaya MD Bilateral lower extremity edema (Primary Dx); Type 2 diabetes mellitus with hyperglycemia, with long-term current use of insulin ([facility]); 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 10/05/2024 1:00 PM EDT Office Visit [facility] [address] [place] [address] Slime Franco 10/05/2024 Travel 10/04/2024 Patient Outreach [address] [address] Zoraida Luo MD Care Coordination (SDOH) 10/04/[address] [address] Zoraida Luo MD Care Management (C3CM- f/u call) 10/02/2024 2:00 PM EDT Office Visit [facility] [address] [place] [address] Slime Franco 09/29/[address] [address] Zoraida Luo MD 09/25/[address] [address] Zoraida Luo MD Care Management (C3CM- f/u call lvm) 09/22/[address] [address] Zoraida Luo MD 09/21/[address] [address] Zoraida Luo MD 09/20/2024 Orders Only [facility] [address] [place] [address] Gina Connelly MD Dry gangrene ([facility]) (Primary Dx); Peripheral vascular disease ([facility]); Phantom limb syndrome with pain ([facility]); S/P BKA (below knee amputation) unilateral, right ([facility]) 09/20/2024 Patient Outreach [address] [address] Zoraida Luo MD Care Coordination (SDOH f/u) 09/20/[address] [address] Zoraida Luo MD 09/15/[address] [address] Zroaida Luo MD Care Management (C3CM - f/u call) 09/11/2024 Patient Outreach [address] [address] Zoraida Luo MD Care Coordination (SDOH) 09/08/2024 9:00 AM EDT Office Visit [facility] [address] [address] Faustino Mayes MD Gastroesophageal reflux disease without esophagitis (Primary Dx); Type 2 diabetes mellitus with hyperglycemia, with long-term current use of insulin ([facility]) 09/08/2024 Travel 09/07/[address] [address] Zoraida Luo MD Care Management (C3CM- f/u call) 09/07/2024 Patient Outreach [address] [address] Zoraida Luo MD Care Coordination (SDOH f/u) 09/04/[address] [address] Zoraida Luo MD 09/01/2024 Population Health Risk Score [facility] () [address] [address] Provider, Population Health Generic 08/31/2024 Patient Outreach [facility] [address] [place] [address] Zoraida Luo MD Care Coordination (SDOH) 08/29/2024 Telephone [facility] [address] [place] [address] Zoraida Luo MD Care Management ([facility]- initial assessment/ enrollment) 08/24/2024 11:15 AM EST Office Visit [facility] [address] [place] [address] Mauricio Oneill MD Other specified diabetes mellitus with hyperglycemia, with long-term current use of insulin ([facility]) (Primary Dx); Gastroesophageal reflux disease, unspecified whether esophagitis present 08/24/2024 Telephone [facility] [address] [place] [address] Zoraida Luo MD 08/24/2024 Telephone [facility] [address] [place] [address] Zoraida Luo MD 08/24/[address] [address] Zoraida Luo MD 08/24/2024 Travel 08/23/2024 Patient Outreach [facility] [address] [place] [address] Zoraida Luo MD Care Coordination (CHW outreach) 08/21/2024 Refill [facility] [address] [place] [address] Zoraida Luo MD 08/11/2024 Patient Outreach [facility] [address] [place] [address] Zoraida Luo MD Care Coordination (Wheelchair status) 08/11/2024 Patient Outreach [facility] [address] [place] [address] Zoraida Luo MD Care Coordination (CM/CHW appt) 08/11/2024 Telephone [facility] [address] [place] [phone] Zoraida Luo MD Care Management (C3- chart review) from Last 3 Months Immunizations Immunization Administration Dates Next Due Influenza injectable quadriv alent IIV4 with preservative 06/24/2017,06/09/2016 Influenza injectable quadriv alent preservative free 03/16/2023,05/06/2022,04/05/2020,07/06 Influenza, High Dose Seasona l, Preservative Free 03/21/2018,04/11/2015 Influenza, IIV3, injectable 04/05/2020,0 06/24/2017,06/09/2016,04/16,03/12/2012,03/14/2009,04/10/2002 Influenza, Split (incl. yesenia fied surface antigen) 03/29/2013 Influenza, live, intranasal 04/18/2014 Influenza, seasonal, injecta ble, preservative free 05/31/2024 MMR 11/12/2010 Moderna Covid-19 Vaccine 12+ 10/04/2020,09/07/19 Moderna Covid-19 Vaccine 6+ Bivalent 06/04/2022 Pfizer Covid-19 Vaccine 12+ Bivalent 08/24/2022 Pneumococcal Conjugate PCV 20 12/10/2021 Pneumococcal Polysaccharide PPSV23 04/05,05/10/2014,05/27/2008,11/18 Pneumococcal, Unspecified 11/18/2001 TD (adult), 2 Lf tetanus tox oid, preservative free, adsorbed 11/18/2001 Td (adult), unspecified 11/18/2001 Tdap 06/09/2016 Zoster, Recombinant 02/10/2022, 2,12/10/2021,12/10 Social History Tobacco Use Types Packs/Day Years Used Date Smoking Tobacco: Never Passive Smoke Exposure: Never Smokeless Tobacco: Never Tobacco Cessation:Counseling Given: Not Answered Alcohol Use Standard Drinks/Week Comments Never 0 [...] your housing situation today? I have alexander patti 10/25/[address] you li [...] not to disclose 2021 10:15 AM EDT Last Filed Vital Signs Vital Sign Reading Time Taken Comments Blood Pressure 142/92 11/03/2024 10:35 AM EDT Pulse 82 11/03/2024 10:35 AM EDT Temperature 36.3 ??C (97.4 ??F) 11/03/2024 10:35 AM E DT Respiratory Rate 20 11/03/2024 10:35 AM EDT Oxygen Saturation 98% 11/03/2024 10:35 AM EDT Inhaled Oxygen Concentration - - Weight 79.1 kg (174 lb 6.4 oz) 11/03/2024 10:35 AM EDT Height 160 cm (5' 3 ) 11/03/2024 10:35 AM EDT Body Mass Index 30.89 11/03/2024 10:35 AM EDT Plan of Treatment Upcoming Encounters Date Type Department Care Team (Late st Contact Info) Description 11/10/2024 10:45 AM EDT Procedure Visit [facility] [address] [place] [address] Zoraida Luo MD [address] [place] [address] 11/15/2024 11:30 AM EDT Medication Management [facility] [address] [place] [address] Sarah Medina PharmD [address] [place] [address] 11/24/2024 1:00 PM EDT Office Visit [facility] [address] [place] [address] Donny Oneill Health Maintenance Due Date Last Done Comments CT Colonography 1965 Colonoscopy 1965 Colorectal Cancer Screening 1965 FIT DNA/Cologuard 1965 FIT 1965 FOBT 1965 HIV Screening 1965 Sigmoidoscopy 1965 Eye Exam 1975 Hepatitis C Screening 1983 Hepatitis B Vaccines (1 of 3 - 19+ 3-dose series) 1984 Lipid Panel 11/10/2022 11/10/2021 Diabetes: Foot Exam 02/02/2023 COVID-19 Vaccine ( season) 2024 08/24/2022, 06/04/2022, 10/04/2020, Additional history exists Depression Screening 07/22/2024 07/22/2023, 07/22/19 24 Dental Oral Exam 11/24/2024 05/25/2024 Dental Prophylaxis 11/24/2024 05/25/2024 Diabetes: Hemoglobin A1C 02/03/2025 025, 08/24/2024, 05/17/2024, Additional history exists Alcohol/Substance Use Screening 04/07/2025 04/07/2024 Dental X-Ray: Bitewings 10/03/2025 10/02/2024, 05/25 SDOH Screening 10/25/2025 10/25/2024 Diabetes: Urine Protein Screening 11/01/2025 11/01/2024, 08/29/2024, 06/29/2024, Additional history exists Tobacco Screening 11/03/2025 11/03/2024 DTaP/Tdap/Td Vaccines (2 - Td or Tdap) 06/09/2026 06/09/2016, 11/18/2001, 11/18/2001 Dental X-Ray: Full Mouth 2027 05/25/2024 RSV Patients and Patients Aged 60 years or older (1 - 1-dose 75+ series) 2040 Pneumococcal Vaccine: 50+ Years Completed 12/10/2021, 04/05/2020, 05/10/2014, Additional history exists Zoster Vaccines Completed 02/10/2022, 01/20, 12/10/2021, Additional history exists Influenza Vaccine Completed 05/31/2024, , 05/06/2022, Additional history exists HIB Vaccines Aged Out No longer eligi ble based on patient's age to complete this topic HPV Vaccines Aged Out No longer eligi ble based on patient's age to complete this topic Hepatitis A Vaccines Aged Out No long er eligible based on patient's age to complete this topic IPV Vaccines Aged Out No longer eligi ble based on patient's age to complete this topic Meningococcal B Vaccine Aged Out No l onger eligible based on patient's age to complete this topic Meningococcal Vaccine Aged Out No hu mimi eligible based on patient's age to complete this topic RSV under 20 months Aged Out No longe r eligible based on patient's age to complete this topic Rotavirus Vaccines Aged Out No longer eligible based on patient's age to complete this topic Goals Goal Patient Goal Type Associated Problems Recent Progress Patient-Stated? Author Patient will adhere to medication regimen General On track( 023 2:23 PM EDT) No Anderson Zapata PharmD Hemoglobin A1c < 7 Result Component 11.8(11/04/19 25 11:17 AM EDT) No Anderson Zapata PharmD Procedures Procedure Name Priority Date/Time Associated Diagnosis Comments POCT GLYCATED HEMOGLOBIN, TOTAL Routine 11/03/2024 11:17 AM EDT Other specified diabetes mellitus with hyperglycemia, with long-term current use of insulin ([facility]) POCT GLUCOSE Routine 11/03/2024 11:17 AM EDT Other specified diabetes mellitus with hyperglycemia, with long-term current use of insulin ([facility]) POCT URINALYSIS DIPSTICK Routine 10/05/2024 3:19 PM EDT Type 2 diabetes mellitus with hyperglycemia, with long-term current use of insulin ([facility]) POCT GLUCOSE Routine 10/05/2024 2:36 PM EDT Type 2 diabetes mellitus with hyperglycemia, with long-term current use of insulin ([facility]) CASE PRESENTATION, DETAILED AND EXTENSIVE TREATMENT PLANNING Routine 10/05/2024 1:00 PM EDT 18 MO RESIN-BASED COMPOSITE - 2 SURF, POSTERIOR Routine 10/05/2024 1:00 PM EDT 19 DO RESIN-BASED COMPOSITE - 2 SURF, POSTERIOR Routine 10/05/2024 1:00 PM EDT CASE PRESENTATION, DETAILED AND EXTENSIVE TREATMENT PLANNING Routine 10/02/2024 2:00 PM EDT BITEWING - SINGLE RADIOGRAPHIC IMAGE Routine 10/02/2024 2:00 PM EDT INTRAORAL - PERIAPICAL FIRST RADIOGRAPHIC IMAGE Routine 10/02/2024 2:00 PM EDT 18,19 LIMITED ORAL EVALUATION - PROBLEM FOCUSED Routine 10/02/2024 2:00 PM EDT 19 AMALGAM FILLING Routine 12:00 AM EDT 18 AMALGAM FILLING Routine 12:00 AM EDT POCT GLUCOSE Routine 09/08/2024 9:07 AM EDT Type 2 diabetes mellitus with hyperglycemia, with long-term current use of insulin ([facility]) POCT GLUCOSE Routine 08/24/2024 3:46 PM EST Other specified diabetes mellitus with hyperglycemia, with long-term current use of insulin ([facility]) POCT GLUCOSE Routine 08/24/2024 11:22 AM EST Other specified diabetes mellitus with hyperglycemia, with long-term current use of insulin ([facility]) POCT GLYCATED HEMOGLOBIN, TOTAL Routine 08/24/2024 11:20 AM EST Other specified diabetes mellitus with hyperglycemia, with long-term current use of insulin ([facility]) PROPHYLAXIS - ADULT Routine 05/25/2024 1 0:00 AM EST INTRAORAL - COMPLETE SERIES OF RADIOGRAPHIC IMAGES Routine 05/25/2024 10:00 AM EST COMPREHENSIVE ORAL EVALUATION - NEW OR ESTABLISHED PATIENT Routine 05/25/2024 10:00 AM EST LIPID PANEL, STANDARD Routine 11/10/2021 11:45 AM EDT from Last 3 Months or Most Recently Relevant to Health Maintenance Results * (ABNORMAL) POCT HGB A1C (11/03/2024 11:17 AM EDT) Only the most recent of2 resultswithin the time period is included. Hemoglobin A1C 11.8(A) 4.0 - 6.0 % QC Media Lot # [id number] Lot# Expiration Date [id number] Blood 11/03/2024 11:1 7 AM EDT Zoraida Luo MD POINT OF CARE TEST ENTER/EDIT ORDERABLES Final Result * POCT Glucose (11/03/2024 11:17 AM EDT) Only the most recent of5 resultswithin the time period is included. Glucose Blood, POC 134 60 - 200 mg/dL QC Media Lot # [id number] Lot# Expiration Date [id number] Blood Capillary blood specimen / Unknown 11/03/2024 11:17 AM EDT Zoraida Luo MD POINT OF CARE TEST ENTER/EDIT ORDERABLES Final Result * (ABNORMAL) POCT urinalysis dipstick manually resulted (10/05/2024 3:19 PM EDT) Color, UA Yellow Clarity, UA Clear Glucose, UA 4+ >500 Comment:1000 mg/dL Bilirubin, UA Negative Ketones, UA Negative Spec Grav, UA 1.015 Blood, UA Positive(A) Negative, None Detected Comment:trace-lysed pH, UA 5.5 Protein, UA 1+ 70+ Comment:30 mg/dL Urobilinogen, UA 0.2 Leukocytes, UA Negative Negative, Rare, Trace Nitrite, UA Negative Negative, None Detected Appearance, UA clear QC Media Lot # Comment:[id number] Lot# Expiration Date Comment:03/20/2025 Urine 10/05/2024 3:19 PM EDT Lisbeth Amaya MD POINT OF CARE TEST ENTER/EDIT ORDERABLES Final Result * (ABNORMAL) LIPID PANEL, STANDARD (11/10/2021 11:45 AM EDT) Chol/HDLC Ratio 2.4 <5.0 (calc) [facility] Cholesterol, Total 117 <200 mg/dL [facility] HDL Cholesterol 49 > OR = 40 mg/dL [facility] LDL Cholesterol 40 mg/dL (calc) [facility] Comment: Reference range: <100 ?? Desirable range <100 mg/dL for primary prevention; ?? <70 mg/dL for patients with CHD or diabetic patients ?? with > or = 2 CHD risk factors. ?? LDL-C is now calculated using the Cele ?? calculation, which is a validated novel method providing ?? better accuracy than the Friedewald equation in the ?? estimation of LDL-C. ?? Nishant AGUILAR et al. HARLEEN. 2013;310(19): 4989-2543 ?? (http://education.Triond.ServiceTrade/faq/QZJ153) Non-HDL Cholesterol 68 <130 mg/dL (calc) [facility] Comment: For patients with diabetes plus 1 major ASCVD risk ?? factor, treating to a non-HDL-C goal of <100 mg/dL ?? (LDL-C of <70 mg/dL) is considered a therapeutic ?? option. Triglycerides 221(H) <150 mg/dL [facility] Comment: ?? If a non-fasting specimen was collected, consider repeat triglyceride testing on a fasting specimen if clinically indicated. ?? Reji et al. J. of Clin. Lipidol. 2015;9:129-169. ?? 11/10/2021 11:4 5 AM EDT us Selma Morley MD LAB BLOOD ORDERABLES Final Resul t [facility] [address] from Last 3 Months or Most Recently Relevant to Health Maintenance Insurance [facility] C3 DENTAL-[facility] MEDICAID STAND ADULT Care Teams Donor Processor Relationship Specialty Start Date End Date Zoraida Luo MD [address] [place] [address] PCP - General Family Medicine 05/02/21 Andrea Zarate RN [address] [place] [id number] Tool And Fixture RepairerIt Consultant 08/25/24 Sarah Medina PharmD [address] [place] [address] Pharmacist Internal Medicine 10/26/24 Ana Chávez Can Slider 07/15/23 [facility] Housing District Customs Director 09/01/23 08/25/23
--- OUTSIDE RECORDS SUMMARY | 2024-11-03 12:18 | XMS_ITS | Encounter Summary ---
Author Organization [employer] Address [address] [place] [address] Care Team Providers Care Patrol Driver Name Role Phone Zoraida Luo MD Primary Care Provider Andrea Zarate RN Unavailable [phone] Sarah Medina PharmD Unavailable [phone] Reason for Visit * Reason Comments Care Coordination SDOH f/u Encounter Details Date Type Department Care Team (Latest Contact Info) Description 11/01/2024 Patient Outreach [facility] [address] [place] [address] Zoraida Luo MD [address] [place] [address] Care Coordination (SDOH f/u) Social History Tobacco Use Types Packs/Day Years [...] AM EDT documented as of this encounter Progress Notes * Elaine Rucker - 11/01/2024 3:17 PM EDT CHW Elaine Rucker/[place] Zarate RN placed outbound call to patient to follow up on SDOH needs.Patient's name, and address confirmed. Patient states is doing well. Patient stated he has usedhis project bread debit card, he was able to buy fruits and veggies. Patient is very grateful. Patient is aware of upcoming appts and has transportation. No other SDOH needed at time. No further questions or concerns. CHW reinforced direct contact information or CM for any additional questions or concerns and extended clinic hours on Mondays and Wednesdays, and Walk-In Urgent Care Located in [facility]. Patient provided with after-hours line for [facility], , which offer nighttime triage service and option to transfer to concrete products machine operator provider ifneeded. Patient verbalizes understanding, and able to repeat back to health underwriter. A follow up call will be placed within 10 days, patient agrees with plan. documented in this encounter Plan of Treatment Upcoming Encounters Date Type Department Care Team (Late st Contact Info) Description 11/10/2024 10:45 AM EDT Procedure Visit [facility] [address] [place] [address] Zoraida Luo MD [address] [place] [address] 11/15/2024 11:30 AM EDT Medication Management [facility] [address] [place] [address] Sarah Medina PharmD [address] [place] [address] 11/24/2024 1:00 PM EDT Office Visit [facility] [address] [place] [address] Donny Oneill documented as of this encounter [...] documented as of this encounter Care Teams Patrol Driver Relationship Specialty Start Date End Date Zoraida Luo MD [address] [place] [address] PCP - General Family Medicine 05/02/21 Andrea Zarate, RN [address] [place] [address] Account StrategistVibration Analyst 08/25/24 Sarah Medina PharmD [address] [place] [address] Pharmacist Internal Medicine 10/26/24 Ana Chávez Matrix Inspector 07/15/23 [facility] Housing Materials Buyer 09/01/23 [facility] 08/25/23 documented as of this encounter
--- OUTSIDE RECORDS SUMMARY | 2024-11-03 12:18 | XMS_ITS | Encounter Summary ---
Author Organization [employer] Address [address] [facility] 7[address] [place] [address] Care Team Providers Care Spice Miller Hammer Mill Name Role Phone Zoraida Luo MD Primary Care Provider [phone] Andrea Zarate RN Unavailable [phone] Sarah Medina PharmD Unavailable [phone] Reason for Referral * Consultation (Routine) - Pending Review Specialty Diagnoses / Procedures Referred By Contac t Referred To Contact Orthopaedic Surgery Diagnoses Chronic right shoulder pain Chronic left shoulder pain Zoraida Luo MD [address] [place] [address] Phone: tel: fax: Referral ID Status Reason Start Date Expiration Date Visits Requested Visits Authorized [id number] Pending Review Specialty Services Required 11/03/2024 11/03/2025 1 1 Encounter Details Date Type Department Care Team (Late st Contact Info) Description 11/03/2024 11:30 AM EDT Office Visit [facility] CHC MED & PEDS [address] [place] [address] Zoraida Luo MD [address] [place] [address] Other specified diabetes mellitus with hyperglycemia, with long-term current use of insulin (CMS/HCC) (Primary Dx); Chronic right shoulder pain; Chronic left shoulder pain; Requires daily assistance for activities of daily living (ADL) and comfort needs; Mobility impaired; Leg edema, left; S/P BKA (below knee amputation) unilateral, right (CMS/HCC) Social History Tobacco Use Types Packs/Day Years [...] AM EDT documented as of this encounter Last Filed Vital Signs Vital Sign Reading [...] Mass Index 30.89 11/03/2024 10:35 AM EDT documented in this encounter Plan of Treatment Upcoming Encounters Date Type Department Care Team (Late st Contact Info) Description 11/10/2024 10:45 AM EDT Procedure Visit [facility] MED & PEDS [address] [place] [address] Zoraida Luo MD [address] [place] [address] 11/15/2024 11:30 AM EDT Medication Management [facility] MED & PEDS [address] [place] [address] Sarah Medina PharmD [address] [place], [place] [phone] 11/24/2024 1:00 PM EDT Office Visit [facility] ADULT DENTAL [address] [place] [address] Donny Oneill Scheduled Orders Name Type Priority Associated Diagnoses Orde r Schedule XR Shoulder 2+ Views Left Imaging Routine Chronic left shoulder pain Expected: 11/03/2024, Expires: 11/03/2025 XR Shoulder 2+ Views Right Imaging Routine Chronic right shoulder pain Expected: 11/03/2024, Expires: 11/03/2025 Scheduled Referrals Name Type Priority Associated Diagnoses Order Schedule Referral to Orthopaedic Surgery Outpatient Referral Routine Chronic right shoulder pain Chronic left shoulder pain Expected: 11/03/2024 (Approximate), Expires: 11/03/2025 documented as of this encounter Goals Goal Patient Goal Type Associated Problems Recent Progress Patient-Stated? Author Patient will adhere to medication regimen General On track(04/18/2 023 2:23 PM EDT) No Anderson Zapata, PharmD Hemoglobin A1c < 7 Result Component 11.8(11/04/19 11:17 AM EDT) No Anderson Zapata PharmD documented as of this encounter Procedures Procedure Name Priority Date/Time Associated Diagnosis Comments POCT GLYCATED HEMOGLOBIN, TOTAL Routine 11/03/2024 11:17 AM EDT Other specified diabetes mellitus with hyperglycemia, with long-term current use of insulin ([facility] [place]) POCT GLUCOSE Routine 11/03/2024 11:17 AM EDT Other specified diabetes mellitus with hyperglycemia, with long-term current use of insulin ([facility] [place]) documented in this encounter Results * (ABNORMAL) POCT HGB A1C (11/03/2024 11:17 AM EDT) Hemoglobin A1C 11.8(A) 4.0 - 6.0 % QC Media Lot # [id number] Lot# Expiration Date 122,027 Blood 11/03/2024 11:1 7 AM EDT Zoraida Luo MD POINT OF CARE TEST ENTER/EDIT ORDERABLES Final Result * POCT Glucose (11/03/2024 11:17 AM EDT) Glucose Blood, POC 134 60 - 200 mg/dL QC Media Lot # [id number] Lot# Expiration Date 8,,678 Blood Capillary blood specimen / Unknown 11/03/2024 11:17 AM EDT Zoraida Luo MD POINT OF CARE TEST ENTER/EDIT ORDERABLES Final Result documented in this encounter Visit Diagnoses Diagnosis Other specified diabetes mellitus with hyperglycemia, with long-term current use of insulin ([facility] Primary Chronic right shoulder pain Pain in joint, shoulder region Chronic left shoulder pain Pain in joint, shoulder region Requires daily assistance for activities of daily living (ADL) and comfort needs Mobility impaired Other ill-defined conditions Leg edema, left S/P BKA (below knee amputation) unilateral, right ([facility]) documented in this encounter Additional Health Concerns Assessment Noted Time PHQ-9 Depression Total Score: 8 07/22/19 24 11:43 AM EST documented as of this encounter Care Teams Spice Miller Hammer Mill Relationship Specialty Start Date End Date Zoraida Luo MD [address] [place] [address] PCP - General Family Medicine 05/02/21 Andrea Zarate RN [address] [place] [address] Electronic Gluing Machine OperatorComputer Operations Technician 08/25/24 Sarah Medina PharmD [address] [place] [address] Pharmacist Internal Medicine 10/26/24 Ana Chávez Painter Rough 07/15/23 [facility] Housing Poiser 09/01/23 [facility] 08/25/23 documented as of this encounter
--- OUTSIDE RECORDS SUMMARY | 2024-11-03 12:18 | XMS_ITS | Encounter Summary ---
Author Organization [email or web address] Address [address] [facility] 7t [place] [address] Care Team Providers Care Middle School Football Coach Name Role Phone Zoraida Luo MD Primary Care Provider [phone] Andrea Zarate RN Unavailable [phone] Sarah Medina PharmD Unavailable [phone] Reason for Visit * Reason Onset Date Comments Care Management 11/01/2024 C3CM- f/u call Encounter Details Date Type Department Care Team ([facility] st Contact Info) Description 11/01/2024 Telephone [facility] MEDICINE [address] [place] [address] Zoraida Luo MD [address] [place] [address] Care Management (C3CM- f/u call) Social History Tobacco Use Types Packs/Day Years [...] AM EDT documented as of this encounter Miscellaneous Notes * Telephone Encounter - Andrea Zarate RN - 11/01/2024 3:38 PM EDT Call placed to [facility]. Message being sent to [employer] to contact CM with an update on the wheelchair eval. They also agree to fax most recent blood glucose and BP logs to [facility]. CM will scan into patient's chart once received. * Telephone Encounter - Andrea Zarate RN - 11/01/2024 3:27 PM EDT CM Andrea Zarate RN and CHW Elaine Rucker placed outbound call to patient. Patient's name, and address confirmed. Patient states is doing well with no recent illnesses or emergency room visits.Patient confirms attending CD visit today. He states he was instructed to start tresiba 26 units at bedtime and to continue the lispro 6 units TID and Trulicity 4.5mg weekly. Per patient, was educated on how to use the sensor and how to monitor his sugars. He plans on following up with the pharmacy for CDTM again on 11/15/24. Patient is aware of his upcoming visit with PCP on 11/03. He denies anybarriers to attending the appointment. He is agreeable to bringing in his logged readings for PCP to review during the upcoming appt. CM informed patient that [facility] was contacted recently and it was confirmed that he was evaluated by PT for wheelchair eval. Advised that they are waiting to set up anappt with the wheelchair vendor to have the patient assessed. CM will f/u with [facility] to check on status of appt and will notify patient. He agrees. No further questions or concerns. CM reinforced direct contact information or CHW for any additional questions or concerns. Education provided on [facility] located in [facility] of [facility]. Patient provided with after-hours line for [facility], , which offer night time triage service and option to transfer to front office administrator provider if needed. Patient verbalizes understanding, and able to repeat back to freelance copywriter. A follow up call will be placed within 10 days, patientagrees with plan. documented in this encounter Plan of Treatment Upcoming Encounters Date Type Department Care Team ([facility] Contact Info) Description 11/10/2024 10:45 AM EDT Procedure Visit [facility] MED & PEDS [address] [place] [address] Zoraida Luo MD [address] [place] [address] 11/15/2024 11:30 AM EDT Medication Management [facility] MED & PEDS [address] [place] [address] Sarah Medina, YumikoD [address] [place] [address] 11/24/2024 1:00 PM EDT Office Visit [facility] CHC ADULT DENTAL [address] [place] [address] Donny Oneill documented as of this encounter [...] documented as of this encounter Care Teams Middle School Football Coach Relationship Specialty Start Date End Date Zoraida Luo MD [address] [place] [address] PCP - General Family Medicine 05/02/21 Andrea Zarate RN [address] [place] [address] Communications ExecutiveMeteorologist In Charge 08/25/24 Sarah Mednia PharmD [address] [place] [address] Pharmacist Internal Medicine 10/26/24 Ana Chávez Circuit Board Assembler 07/15/23 [facility] Housing Electrical Prospecting Observer 09/01/23 [facility] 08/25/23 documented as of this encounter
--- OUTSIDE RECORDS SUMMARY | 2024-11-03 12:18 | XMS_ITS | Encounter Summary ---
Author Organization [employer] Address [address] [facility] 7t [place] [address] Care Team Providers Care Senior Design Engineering Specialist Name Role Phone Zoraida Luo MD Primary Care Provider [phone] Andrea Zarate RN Unavailable [phone] Andrea Zarate RN Unavailable [phone] Sarah Medina PharmD Unavailable [phone] Reason for Visit * Reason Comments Med Refill Encounter Details Date Type Department Care Team (Late st Contact Info) Description 04/28/2024 Refill [facility] CHC MED & PEDS [address] [place] [address] Zoraida Luo MD [address] [place] [address] Bilateral primary osteoarthritis of knee Social History [...] 11/10/2024 10:45 AM EDT Procedure Visit [facility] MED & PEDS [address] [place] [address] Zoraida Luo MD [address] [place] [address] 11/15/2024 11:30 AM EDT Medication Management [facility] MED & PEDS [address] [place] [address] Sarah Medina PharmD [address] [place] [address] 11/24/2024 1:00 PM EDT Office Visit [facility] ADULT DENTAL [address] [place] [address] Donny Oneill documented as of this encounter [...] documented as of this encounter Care Teams Senior Design Engineering Specialist Relationship Specialty Start Date End Date Zoraida Luo MD [address] [place] [address] PCP - General Family Medicine 05/02/21 Andrea Zarate RN [address] [place] [address] Electrode CleanerSummer Babysitter 03/22/24 08/28/24 Andrea Zarate RN [address] [place] [address] Electrode CleanerSummer Babysitter 08/25/24 Sarah Medina PharmD [address] [place] [address] Pharmacist Internal Medicine 10/26/24 Ana Chávez Greenhouse Instructor 07/15/23 [facility] Housing Lubricating Machine Tender 09/01/23 [facility] 08/25/23 documented as of this encounter
--- OUTSIDE RECORDS SUMMARY | 2024-11-03 12:18 | XMS_ITS | Encounter Summary ---
Author Organization [employer] Address [address] [facility] 7t [place] [address] Care Team Providers Care Launch Engineer Name Role Phone Zoraida Luo MD Primary Care Provider [phone] Andrea Zarate RN Unavailable [phone] Andrea Zarate RN Unavailable [phone] Sarah Medina PharmD Unavailable [phone] Reason for Visit * Reason Comments Med Refill Encounter Details Date Type Department Care Team (Late st Contact Info) Description 05/24/2023 Refill [facility] CHC MED & PEDS [address] [place] [address] Zoraida Luo MD [address] [place] [address] Other specified diabetes mellitus with hyperglycemia, with long-term current use of insulin ([facility]) Social History Tobacco Use Types Packs/Day Years [...] Description 11/10/2024 10:45 AM EDT Procedure Visit [facility] MED & PEDS [address] [place] [address] Zoraida Luo MD [address] [place] [address] 11/15/2024 11:30 AM EDT Medication Management [facility] MED & PEDS [address] [place] [address] Sarah Medina PharmD [address] [place] [address] 11/24/2024 1:00 PM EDT Office Visit [facility] ADULT DENTAL [address] [place] [address] Donny Oneill documented as of this encounter Goals Goal Patient Goal Type Associated Problems Recent Progress Patient-Stated? Author Patient will adhere to medication regimen General On track( 023 2:23 PM EDT) No Anderson Zapata, Ivis Hemoglobin A1c < 7 Result Component 11.8(11/04/19 25 11:17 AM EDT) No Anderson Zapata PharmD documented as of this encounter Visit Diagnoses Diagnosis Other specified diabetes mellitus with hyperglycemia, with long-term current use of insulin ([facility]) documented in this encounter Additional Health Concerns Assessment Noted Time PHQ-9 Depression Total Score: 3 07/16/19 23 2:48 PM EST documented as of this encounter Care Teams Launch Engineer Relationship Specialty Start Date End Date Zoraida Luo MD [address] [place] [address] PCP - General Family Medicine 05/02/21 Andrea Zarate RN [address] [place] [address] RnpResidential Therapist 03/22/24 08/28/24 Andrea Zarate RN [address] [place] [address] RnpResidential Therapist 08/25/24 Sarah Medina PharmD [address] [place] [address] Pharmacist Internal Medicine 10/26/24 Ana Chávez Manager Foreign 07/15/23 [facility] Housing Rendering Equipment Tender 09/01/23 [facility] 08/25/23 documented as of this encounter
--- OUTSIDE RECORDS SUMMARY | 2024-11-03 12:18 | XMS_ITS | Encounter Summary ---
Author Organization [employer] Address [address] [facility] 7t [place] [address] Care Team Providers Care Vehicle Assembler Name Role Phone Zoraida Luo MD Primary Care Provider [phone] Andrea Zarate RN Unavailable [phone] Andrea Zarate RN Unavailable [phone] Sarah Medina PharmD Unavailable [phone] Encounter Details Date Type Department Care Team (Late Contact Info) Description 02/04/2023 Orders Only [facility] MEDICINE [address] [place] [address] Marisol Zarate Social History Tobacco Use Types Packs/Day Years Used Date Smoking Tobacco: Never Passive Smoke Exposure: Never Smokeless Tobacco: Never Alcohol Use Standard Drinks/Week Comments Never 0 (1 standard drink = 0.6 oz pur e alcohol) Depression Answer Date Recorded Patient Health Questionnaire-9 Score 3 07/16/2022 Depression Answer Date Recorded Patient Health Questionnaire-2 [...] Encounters Date Type Department Care Team (Late Contact Info) Description 11/10/2024 10:45 AM EDT Procedure Visit [facility] CHC MED & PEDS [address] [place], [place] [phone] Zoraida Luo MD [address] [place], [place] [phone] 11/15/2024 11:30 AM EDT Medication Management [facility] MED & PEDS [address] [place], [place] [phone] Sarah Medina PharmD [address] [place] [address] 11/24/2024 1:00 PM EDT Office Visit [facility] ADULT DENTAL [address] [place], [place] [phone] Donny Oneill documented as of this encounter [...] documented as of this encounter Care Teams Vehicle Assembler Relationship Specialty Start Date End Date Zoraida Luo MD [address] [place] [address] PCP - General Family Medicine 05/02/21 Andrea Zarate RN [address] [place] [address] Driller OperatorChange Agent 03/22/24 08/28/24 Andrea Zarate RN [address] [place] [address] Driller OperatorChange Agent 08/25/24 Sarah Medina PharmD [address] [place] [address] Pharmacist Internal Medicine 10/26/24 Ana Chávez Mill Dresser 07/15/23 [facility] Housing Egg Buyer 09/01/23 [facility] 08/25/23 documented as of this encounter
--- OUTSIDE RECORDS SUMMARY | 2024-11-03 12:18 | XMS_ITS | Encounter Summary ---
Author Organization [employer] Address [address] [facility] 7t [place] [address] Care Team Providers Care Certified Pedorthotist Name Role Phone Zoraida Luo MD Primary Care Provider [phone] Andrea Zarate RN Unavailable [phone] Andrea Zarate RN Unavailable [phone] Sarah Medina PharmD Unavailable [phone] Encounter Details Date Type Department Care Team ([facility] st Contact Info) Description 12/15/2022 Telephone [facility] [address] [place] [address] Zoraida Luo MD [address] [place] [address] Social History Tobacco Use Types Packs/Day Years [...] not to disclose 2021 10:15 AM EDT COVID-19 Exposure Response Date Recorded In the last 10 days, have yo u been in contact with someone who was confirmed or suspected to have Coronavirus/COVID-19? No / Unsure 11/26/2022 2:29 PM EDT documented as of this encounter Plan of Treatment Upcoming Encounters Date Type Department Care Team (Late st Contact Info) Description 11/10/2024 10:45 AM EDT Procedure Visit [facility] MED & PEDS [address] [place] [address] Zoraida Luo MD [address] [place] 11/15/2024 11:30 AM EDT Medication Management [facility] MED & PEDS [address] [place], [place] [phone] Sarah Medina PharmD [address] [place] [address] 11/24/2024 1:00 PM EDT Office Visit [facility] ADULT DENTAL [address] [place], [place] [phone] Donny Oneill documented as of this encounter Goals Goal Patient Goal Type Associated Problems Recent Progress Patient-Stated? Author Patient will adhere to medication regimen General On track( 023 2:23 PM EDT) No Anderson Zapata, YumikoD Hemoglobin A1c < 7 Result Component 11.8(11/04/19 11:17 AM EDT) No Anderson Zapata PharmD documented as of this encounter Visit Diagnoses Not on filedocumented in this encounter Additional Health Concerns Assessment Noted Time PHQ-9 Depression Total Score: 3 07/16/19 23 2:48 PM EST documented as of this encounter Care Teams Certified Pedorthotist Relationship Specialty Start Date End Date Zoraida Luo MD [address] [place] [address] PCP - General Family Medicine 05/02/21 Andrea Zarate RN [address] [place] [address] Faculty Research AssistantWell Service Pump Equipment Operator 03/22/24 08/28/24 Andrea Zarate RN [address] [place] [address] Faculty Research AssistantWell Service Pump Equipment Operator 08/25/24 Sarah Medina, Ivis [address] [place] [address] Pharmacist Internal Medicine 10/26/24 Ana Chávez Drapery Installer 07/15/23 [facility] Housing Volumetric Weigher 09/01/[address] [facility] 08/25/23 documented as of this encounter
--- OUTSIDE RECORDS SUMMARY | 2024-11-03 12:18 | XMS_ITS | Encounter Summary ---
Author Organization [employer] Address [address] [facility] 7t [place] [address] Care Team Providers Care Probation Counselor Name Role Phone Zoraida Luo MD Primary Care Provider [phone] Andrea Zarate RN Unavailable [phone] Andrea Zarate RN Unavailable [phone] Sarah Medina PharmD Unavailable [phone] Reason for Visit * Reason Comments Med Refill Encounter Details Date Type Department Care Team (Late st Contact Info) Description 04/17/2024 Refill [facility] CHC MED & PEDS [address] [place] [address] Zoraida Luo MD [address] [place] [address] Bilateral primary osteoarthritis of knee Social History [...] 11/10/2024 10:45 AM EDT Procedure Visit [facility] MED & PEDS [address] [place] [address] Zoraida Luo MD [address] [place] [address] 11/15/2024 11:30 AM EDT Medication Management [facility] MED & PEDS [address] [place] [address] Sarah Medina PharmD [address] [place] [address] 11/24/2024 1:00 PM EDT Office Visit [facility] ADULT DENTAL [address] [place] [address] Donny Oneill documented as of this encounter [...] documented as of this encounter Care Teams Probation Counselor Relationship Specialty Start Date End Date Zoraida Luo MD [address] [place] [address] PCP - General Family Medicine 05/02/21 Andrea Zarate RN [address] [place] [address] Board Of Education SecretaryLog Washer 03/22/24 08/28/24 Andrea Zarate RN [address] [place] [address] Board Of Education SecretaryLog Washer 08/25/24 Sarah Medina PharmD [address] [place] [address] Pharmacist Internal Medicine 10/26/24 Ana Chávez Samples And Repairs Preparer 07/15/23 [facility] Housing Senior Recruiter 09/01/[address] [facility] 08/25/23 documented as of this encounter
--- OUTSIDE RECORDS SUMMARY | 2024-11-03 12:18 | XMS_ITS | Encounter Summary ---
Author Organization [employer] Address [address] [facility] 7t [place] [address] Care Team Providers Care Machine Heel Sprayer Name Role Phone Zoraida Luo MD Primary Care Provider [phone] Andrea Zarate RN Unavailable [phone] Andrea Zarate RN Unavailable [phone] Sarah Medina PharmD Unavailable [phone] Reason for Visit * Reason Comments Med Refill Encounter Details Date Type Department Care Team (Late st Contact Info) Description 04/05/2024 Refill [facility] CHC MED & PEDS [address] [place] [address] Zoraida Luo MD [address] [place] [address] Social History Tobacco Use Types Packs/Day Years [...] the past 12 months, has t he [employer], gas, oil or water [id number] threatened to shut off services in your [...] Description 11/10/2024 10:45 AM EDT Procedure Visit [facility] MED & PEDS [address] [place] [address] Zoraida Luo MD [address] [place] [address] 11/15/2024 11:30 AM EDT Medication Management [facility] MED & PEDS [address] [place] [address] Sarah Medina PharmD [address] [place] [address] 11/24/2024 1:00 PM EDT Office Visit [facility] ADULT DENTAL [address] [place] [address] Donny Oneill documented as of this encounter [...] documented as of this encounter Care Teams Machine Heel Sprayer Relationship Specialty Start Date End Date Zoraida Luo MD [address] [place] [address] PCP - General Family Medicine 05/02/21 Andrea Zarate RN [address] [place] [address] Manager EconomicSeasonal Customer Service Associate 03/22/24 08/28/24 Andrea Zarate RN [address] [place] [address] Manager EconomicSeasonal Customer Service Associate 08/25/24 Sarah Medina PharmD [address] [place] [address] Pharmacist Internal Medicine 10/26/24 Ana Chávez Industrial Machine Assembler 07/15/23 [facility] Housing Desulphurizer Operator 09/01/23 [facility] 08/25/23 documented as of this encounter
--- OUTSIDE RECORDS SUMMARY | 2024-11-03 12:18 | XMS_ITS | Encounter Summary ---
Author Organization [employer] Address [address] [facility] [address] [place] [address] Care Team Providers Care Recycler Name Role Phone Zoraida Luo MD Primary Care Provider [phone] Andrea Zarate RN Unavailable [phone] Sarah Medina PharmD Unavailable [phone] Encounter Details Date Type Department Care Team (Latest Contact Info) Description 11/01/2024 Travel Social History Tobacco Use Types Packs/Day [...] Description 11/10/2024 10:45 AM EDT Procedure Visit [facility] MED & PEDS [address] [place] [address] Zoraida Luo MD 505 [place] [address] 11/15/2024 11:30 AM EDT Medication Management [facility] & PEDS [address] [place] [address] Sarah Medina PharmD [address] [place] [address] 11/24/2024 1:00 PM EDT Office Visit [facility] ADULT DENTAL [address] [place] [address] Donny Oneill documented as of this encounter [...] documented as of this encounter Care Teams Recycler Relationship Specialty Start Date End Date Zoraida Luo MD [address] [place] [address] PCP - General Family Medicine 05/02/21 Andrea Zarate, PATRIA [address] [place] [address] BlockmasonAudiovisual Aids Technician 08/25/24 Sarah Medina PharmD [address] [place] [address] Pharmacist Internal Medicine 10/26/24 Ana Chávez Prison Warden 07/15/23 [facility] Housing Paralegal Secretary 09/01/23 [facility] 08/25/23 documented as of this encounter
--- OUTSIDE RECORDS SUMMARY | 2024-11-03 12:18 | XMS_ITS | Encounter Summary ---
Author Organization [employer] Address 75 [facility] 7t [place] [address] Care Team Providers Care Rn First Assist Name Role Phone Zoraida Luo MD Primary Care Provider [phone] Andrea Zarate RN Unavailable [phone] Andrea Zarate RN Unavailable [phone] Sarah Medina PharmD Unavailable [phone] Reason for Visit * Reason Onset Date Comments FYI 01/12/2024 Encounter Details Date Type Department Care Team (Late st Contact Info) Description 01/12/2024 Telephone [facility] MEDICINE 230 [place] [address] Zoraida Luo MD [address] [place], [place] [id number] FYI Social History Tobacco Use Types Packs/Day Years [...] encounter Miscellaneous Notes * Telephone Encounter - Mir Bowman RN - 01/12/2024 12:23 PM EDT [facility] Pt. Already schedule for HDF on 01/20/[address] Oneill. * Telephone Encounter - David Moctezuma - 01/12/2024 8:28 AM EDT Tc from [facility] calling to report will be resuming long-term patient was in hospital on 01/05 and and discharged 01/08 [facility] and while being admitted was given new medications for additional information please call [phone] documented in this encounter Plan of Treatment Upcoming Encounters Date Type Department Care Team (Late st Contact Info) Description 11/10/2024 10:45 AM EDT Procedure Visit [facility] [address] [place] [address] Zoraida Luo MD 505 [place] [address] 11/15/2024 11:30 AM EDT Medication Management [facility] [address] [place] [address] Sarah Medina PharmD 230 [place] [address] 11/24/2024 1:00 PM EDT Office Visit [facility] ADULT DENTAL 505 [place] [address] Donny Oneill documented as of this encounter [...] documented as of this encounter Care Teams Rn First Assist Relationship Specialty Start Date End Date Zoraida Luo MD [address] [place] [address] PCP - General Family Medicine 05/02/21 Andrea Zarate RN 505 [place] [address] Manager PrivateLedger Clerk 03/22/24 08/28/24 Andrea Zarate RN [address] [place] [address] Manager PrivateLedger Clerk 08/25/24 Sarah Medina PharmD [address] [place] [address] Pharmacist Internal Medicine 10/26/24 Ana Chávez Volleyball Referee 07/15/23 [facility] Housing Tail Worker 09/01/23 [facility] 08/25/23 documented as of this encounter
--- OUTSIDE RECORDS SUMMARY | 2024-11-03 12:18 | XMS_ITS | Encounter Summary ---
Author Organization [employer] Address 75 [facility] 7t [place] [address] Care Team Providers Care Corn Press Operator Name Role Phone Zoraida Luo MD Primary Care Provider [phone] Andrea Zarate RN Unavailable [phone] Andrea Zarate RN Unavailable [phone] Sarah Medina PharmD Unavailable [phone] Encounter Details Date Type Department Care Team ([facility] Contact Info) Description 07/28/2022 Abstract [facility] MEDICINE [address] [place] [address] Zoraida Luo MD 505 [place] [address] Social History Tobacco Use Types Packs/Day Years [...] suspected to have Coronavirus/COVID-19? No / Unsure 07/16/2022 2:35 PM EST documented as of this encounter Plan of Treatment Upcoming Encounters Date Type Department Care Team (Late st Contact Info) Description 11/10/2024 10:45 AM EDT Procedure Visit [facility] MED & PEDS [address] [place] [address] Zoraida Luo MD [address] [place], [place] 11/15/2024 11:30 AM EDT Medication Management [facility] MED & PEDS [address] [place], [place] [phone] Sarah Medina PharmD [address] [place] [address] 11/24/2024 1:00 PM EDT Office Visit [facility] ADULT DENTAL [address] [place] [address] Donny Oneill documented as of this encounter Visit Diagnoses Not on filedocumented in this encounter Additional Health Concerns Assessment Noted Time PHQ-9 Depression Total Score: 3 07/16/19 23 2:48 PM EST documented as of this encounter Care Teams Corn Press Operator Relationship Specialty Start Date End Date Zoraida Luo MD [address] [place] [address] PCP - General Family Medicine 05/02/21 Andrea Zarate RN 505 [place] [address] Merchandise HandlerDrapery Maker 03/22/24 08/28/24 Andrea Zarate, RN 505 [place] [address] Merchandise HandlerDrapery Maker 08/25/24 Sarah Medina PharmD [address] [place] [address] Pharmacist Internal Medicine 10/26/24 Ana Chávez Quickbooks Bookkeeper 07/15/23 [facility] Housing Bit Shaver 09/01/23 [facility] 08/25/23 documented as of this encounter
--- OUTSIDE RECORDS SUMMARY | 2024-11-03 12:18 | XMS_ITS | Encounter Summary ---
Author Organization [employer] Address 75 [facility] 7t [place] [address] Care Team Providers Care Licensed Social Worker Name Role Phone Zoraida Luo MD Primary Care Provider [phone] Andrea Zarate RN Unavailable [phone] Andrea Zarate RN Unavailable [phone] Sarah Medina PharmD Unavailable [phone] Reason for Visit * Reason Comments Med Refill Encounter Details Date Type Department Care Team (Late st Contact Info) Description 10/05/2023 Refill [facility] MED & PEDS [address] [place] [address] Zoraida Luo MD 505 [place] [address] Social History Tobacco Use Types Packs/Day Years [...] is your housing situation today? I have alexanderroberto armstrong 04/04/[address] you [...] 11/10/2024 10:45 AM EDT Procedure Visit [facility] 505 [place] [address] Zoraida Luo MD 505 [place] [address] 11/15/2024 11:30 AM EDT Medication Management [facility] 505 [place] [address] Sarah Medina PharmD 230 [place] [address] 11/24/2024 1:00 PM EDT Office Visit [facility] ADULT DENTAL 505 [place] [address] Donny Oneill documented as of this encounter Goals Goal Patient Goal Type Associated Problems Recent Progress Patient-Stated? Author Patient will adhere to medication regimen General On track( 023 2:23 PM EDT) No Anderson Zapata, PharmD Hemoglobin A1c < 7 Result Component 11.8(11/04/19 25 11:17 AM EDT) No Anderson Zapata, YumikoD documented as of this encounter Visit Diagnoses Not on filedocumented in this encounter Additional Health Concerns Assessment Noted Time PHQ-9 Depression Total Score: 8 07/22/19 24 11:43 AM EST documented as of this encounter Care Teams Licensed Social Worker Relationship Specialty Start Date End Date Zoraida Luo MD 230 [place] [address] PCP - General Family Medicine 05/02/21 Andrea Zarate RN 505 [place] [address] General Operations AgentUpper Leather Sorter 03/22/24 08/28/24 Andrea Zarate RN 505 [place] [address] General Operations AgentUpper Leather Sorter 08/25/24 Sarah Medina PharmD 230 [place] [address] Pharmacist Internal Medicine 10/26/24 Ana Chávez Linter Tender 07/15/23 [facility] Housing Collator 09/01/23 [facility] 08/25/23 documented as of this encounter
--- OUTSIDE RECORDS SUMMARY | 2024-11-03 12:18 | XMS_ITS | Encounter Summary ---
Author Organization [employer] Address 75 [facility] 7t [place] [address] Care Team Providers Care Real Estate Closer Name Role Phone Zoraida Luo MD Primary Care Provider [phone] Andrea Zarate RN Unavailable [phone] Andrea Zarate RN Unavailable [phone] Sarah Medina PharmD Unavailable [phone] Reason for Visit * Reason Onset Date Comments Hospital Follow-up 01/12/2024 Encounter Details Date Type Department Care Team (Late st Contact Info) Description 01/12/2024 Telephone [facility] MEDICINE 230 [place] [address] Zoraida Luo MD [address] [place], [place] [id number] Hospital Follow-up Social History Tobacco Use Types Packs/Day Years [...] encounter Miscellaneous Notes * Telephone Encounter - Emely Perez - 01/12/2024 9:32 AM EDT Tc from pt requesting a HDF appt. Hospital: [facility] Date of admission: 01/05 Discharge date: 01/08 Diagnosed: High Blood Sugar documented in this encounter Plan of Treatment Upcoming Encounters Date Type Department Care Team (Late st Contact Info) Description 11/10/2024 10:45 AM EDT Procedure Visit [facility] MED & PEDS [address] [place] [address] Zoraida Luo MD 505 [place] [address] 11/15/2024 11:30 AM EDT Medication Management [facility] MED & PEDS 505 [place] [address] Sarah Medina, Ivis 230 [place] [address] 11/24/2024 1:00 PM EDT Office Visit [facility] ADULT DENTAL 505 [place] [address] Donny Oneill documented as of this encounter [...] documented as of this encounter Care Teams Real Estate Closer Relationship Specialty Start Date End Date Zoraida Luo MD 230 [place] [address] PCP - General Family Medicine 05/02/21 Andrea Zarate RN 505 [place] [address] Maintenance Construction HelperForest Pathology Associate Professor 03/22/24 08/28/24 Andrea Zarate RN [address] [place] [address] Maintenance Construction HelperForest Pathology Associate Professor 08/25/24 Sarah Medina PharmD 230 [place] [address] Pharmacist Internal Medicine 10/26/24 Ana Chávez Rouge Presser 07/15/23 [facility] Housing Program Trainer 09/01/[address] [facility] 08/25/23 documented as of this encounter
--- OUTSIDE RECORDS SUMMARY | 2024-11-03 12:18 | XMS_ITS | Encounter Summary ---
Author Organization [employer] Address 75 [facility] 7t [place] [address] Care Team Providers Care Mediator Name Role Phone Zoraida Luo MD Primary Care Provider [phone] Andrea Zarate RN Unavailable [phone] Andrea Zarate RN Unavailable [phone] Sarah Medina PharmD Unavailable [phone] Reason for Visit * Reason Comments Med Refill Encounter Details Date Type Department Care Team (Late st Contact Info) Description 04/14/2024 Refill [facility] MED & PEDS 505 [place] [address] Zoraida Luo MD 505 [place] [address] Bilateral primary osteoarthritis of knee Social History [...] encounter Miscellaneous Notes * Telephone Encounter - Zoraida Luo MD - 04/17/2024 9:30 AM EDT Patient getting tramadol from outside provider, was given temporary prescription. documented in this encounter Plan of Treatment Upcoming Encounters Date Type Department Care Team ([facility] st Contact Info) Description 11/10/2024 10:45 AM EDT Procedure Visit [facility] MED & PEDS [address] [place] [address] Zoraida Luo MD 505 [place] [address] 11/15/2024 11:30 AM EDT Medication Management [facility] MED & PEDS [address] [place] [address] Sarah Medina, PharmD 230 [place] [address] 11/24/2024 1:00 PM EDT Office Visit [facility] ADULT DENTAL 505 [place] [address] Donny Oneill documented as of this encounter [...] documented as of this encounter Care Teams Mediator Relationship Specialty Start Date End Date Zoraida Luo MD [address] [place] [address] PCP - General Family Medicine 05/02/21 Andrea Zarate RN 505 [place] [address] Excellence ConsultantBox Truck Driver 03/22/24 08/28/24 Andrea Zarate RN 505 [place] [address] Excellence ConsultantBox Truck Driver 08/25/24 Sarah Medina PharmD [address] [place] [address] Pharmacist Internal Medicine 10/26/24 Ana Chávez Commercial Lending Relationship Manager 07/15/23 [facility] Housing Education Manager 09/01/23 [facility] 08/25/23 documented as of this encounter
--- OUTSIDE RECORDS SUMMARY | 2024-11-03 12:18 | XMS_ITS ---
Author Name [facility] Organization Unknown Problems Problem Status Onset Date Problem Type Date of Resoluti on Source Complication of transplanted kidney, unspecified complication [facility] Encounter Type Encounter Reason Primary Diagnosis Location Date Ambulatory Unspecified complication of kidney transplant Unspecified complication of kidney transplant [facility] 11/22/2023 Ambulatory Unspecified complication of kidney transplant Unspecified complication of kidney transplant [facility] 10/01/2023 Ambulatory Unspecified complication of kidney transplant Unspecified complication of kidney transplant [facility] 06/29/2023 Ambulatory Unspecified complication of kidney transplant [facility] 08/26/2022 Care Team Organization Name Specialty Phone Email Start Date End Da john [facility] PCP,No Primary Care 08/26/2022 09/06/2024 [facility] NO PCP Primary Care 03/18/2021 03/18/2021
== END 2024-11-03 12:15 | disposition home or self-care (01) ==
LOC: HO.HHCX 12:14
PROVIDERS: PCP Family Medicine; Visit Provider Family Medicine
DX: M25.512 Pain in left shoulder (principal); M25.511 Pain in right shoulder; G89.29 Other chronic pain
CPT/HCPCS: 73030

== ENCOUNTER → 2024-11-03 12:16 | Outpatient (BNV) | payer MEDICAID, SELFPAY | PROVIDERS: PCP Family Medicine; Visit Provider Radiology Diagnostic Radiology | DX: M19.012 Primary osteoarthritis, left shoulder (principal); M25.511 Pain in right shoulder | CPT/HCPCS: 73030 ==

== ENCOUNTER 2024-11-09 12:51 | Outpatient (AMB) | payer MEDICAID, SELFPAY ==
--- OUTSIDE RECORDS SUMMARY | 2024-11-09 12:54 | XMS_ITS | Encounter Summary ---
Author Organization [employer] Address 75 [facility] 7t [place] [address] Care Team Providers Care Mail Forwarding System Markup Clerk Name Role Phone Zoraida Luo MD Primary Care Provider [phone] Andrea Zarate RN Unavailable [phone] Andrea Zarate RN Unavailable [phone] Sarah Medina PharmD Unavailable [phone] Encounter Details Date Type Department Care Team (Late st Contact Info) Description 07/28/2022 Abstract [facility] MEDICINE [address] [place] [address] Zoraida Luo MD [address] [place] [address] Social History Tobacco Use Types Packs/Day Years [...] [facility] MED & PEDS [address] [place] [address] Zoraida Luo MD [address] [place], [place] 11/23/2024 11:00 AM EDT Medication Management [facility] MED & PEDS [address] [place], [place] [phone] Sarah Medina PharmD [address] [place] [address] 11/24/2024 1:00 PM EDT Office Visit [facility] ADULT DENTAL [address] [place] [address] Donny Oneill documented as of this encounter Visit Diagnoses Not on filedocumented in this encounter Additional Health Concerns Assessment Noted Time PHQ-9 Depression Total Score: 3 07/16/19 23 2:48 PM EST documented as of this encounter Care Teams Mail Forwarding System Markup Clerk Relationship Specialty Start Date End Date Zoraida Luo MD [address] [place] [address] PCP - General Family Medicine 05/02/21 Andrea Zarate RN [address] [place], [place] Machine Straw Hat PresserDirector Of Medical Staff Services 03/22/24 08/28/24 Andrea Zarate, RN [address] [place], [place] Machine Straw Hat PresserDirector Of Medical Staff Services 08/25/24 Sarah Medina PharmD [address] [place] [address] Pharmacist Internal Medicine 10/26/24 Ana Chávez Laboratory Chemical Assistant 07/15/23 [facility] Housing Platform Beater 09/01/23 [facility] 08/25/23 documented as of this encounter
--- OUTSIDE RECORDS SUMMARY | 2024-11-09 12:54 | XMS_ITS | Encounter Summary ---
Author Organization [employer] Address 75 [facility] 7t [place] [address] Care Team Providers Care Forecast Analyst Name Role Phone Zoraida Luo MD Primary Care Provider [phone] Andrea Zarate RN Unavailable [phone] Andrea Zarate RN Unavailable [phone] Sarah Medina PharmD Unavailable [phone] Reason for Visit * Reason Comments Med Refill Encounter Details Date Type Department Care Team (Late st Contact Info) Description 10/05/2023 Refill [facility] MED & PEDS [address] [place] [address] Zroaida Luo MD [address] [place] [address] Social History Tobacco Use Types Packs/Day Years [...] Description 11/10/2024 10:45 AM EDT Procedure Visit [facility] MED & PEDS [address] [place] [address] Zoraida Luo MD [address] [place] [address] 11/23/2024 11:00 AM EDT Medication Management [facility] MED & PEDS [address] [place] [address] Sarah Medina PharmD [address] [place] [address] 11/24/2024 1:00 PM EDT Office Visit [facility] ADULT DENTAL [address] [place] [address] Donny Oneill documented as of this encounter Goals Goal Patient Goal Type Associated Problems Recent Progress Patient-Stated? Author Patient will adhere to medication regimen General On track( 023 2:23 PM EDT) No Anderson Zapata, PharmD Hemoglobin A1c < 7 Result Component 11.8(11/04/19 25 11:17 AM EDT) No Anderson Zapata, PharmD documented as of this encounter Visit Diagnoses Not on filedocumented in this encounter Additional Health Concerns Assessment Noted Time PHQ-9 Depression Total Score: 8 07/22/19 24 11:43 AM EST documented as of this encounter Care Teams Forecast Analyst Relationship Specialty Start Date End Date Zoraida Luo MD [address] [place] [address] PCP - General Family Medicine 05/02/21 Andrea Zarate RN [address] [place] [address] Doctor Of PharmacySorority Supervisor 03/22/24 08/28/24 Andrea Zarate RN [address] [place] [address] Doctor Of PharmacySorority Supervisor 08/25/24 Sarah Medina PharmD [address] [place] [address] Pharmacist Internal Medicine 10/26/24 Ana Chávez Drug Clerk 07/15/23 [facility] Housing Matzo Forming Machine Operator 09/01/23 [facility] 08/25/23 documented as of this encounter
--- OUTSIDE RECORDS SUMMARY | 2024-11-09 12:54 | XMS_ITS | Encounter Summary ---
Author Organization [employer] Address 75 [facility] 7t [place] [address] Care Team Providers Care Endocrinologist Name Role Phone Zoraida Luo MD Primary Care Provider [phone] Andrea Zarate RN Unavailable [phone] Andrea Zarate RN Unavailable [phone] Sarah Medina PharmD Unavailable [phone] Reason for Visit * Reason Comments Med Refill Encounter Details Date Type Department Care Team (Late st Contact Info) Description 04/05/2024 Refill [facility] MED & PEDS [address] [place] [address] Zoraida Luo MD 505 [place] [address] Social History Tobacco Use Types Packs/Day Years [...] the past 12 months, has t he [employer], gas, oil or water [employer]+ threatened to shut off services in your [...] Description 11/10/2024 10:45 AM EDT Procedure Visit [facility] MED & PEDS [address] [place] [address] Zoraida Luo MD 505 [place] [address] 11/23/2024 11:00 AM EDT Medication Management [facility] MED & PEDS [address] [place] [address] Sarah Medina PharmD [address] [place] [address] 11/24/2024 1:00 PM EDT Office Visit [facility] ADULT DENTAL [address] [place] [address] Donny Oneill documented as of this encounter [...] documented as of this encounter Care Teams Endocrinologist Relationship Specialty Start Date End Date Zoraida Luo MD [address] [place] [address] PCP - General Family Medicine 05/02/21 Andrea Zarate RN [address] [place] [address] Shook SplicerPaper Sealer 03/22/24 08/28/24 Andrea Zarate RN [address] [place] [address] Shook SplicerPaper Sealer 08/25/24 Sarah Medina PharmD [address] [place] [address] Pharmacist Internal Medicine 10/26/24 Ana Chávez Tree Chipper 07/15/23 [facility] Housing Commissioner Of Internal Revenue 09/01/23 [facility] 08/25/23 documented as of this encounter
--- OUTSIDE RECORDS SUMMARY | 2024-11-09 12:54 | XMS_ITS | Encounter Summary ---
Author Organization [employer] Address [address] [place] [address] 7 [place] [address] Care Team Providers Care Telephone Recorder Name Role Phone Zoraida Luo MD Primary Care Provider [phone] Andrea Zarate RN Unavailable [phone] Andrea Zarate RN Unavailable [phone] Sarah Medina PharmD Unavailable [phone] Reason for Referral * Consultation (Routine) - Canceled Specialty Diagnoses / Procedures Referred By Contac t Referred To Contact Pharmacy Diagnoses BEATRIZ (acute kidney injury) (CMS/HCC) Noelle Birmingham, PharmD [address] [place] [address] Phone: tel: fax: Referral ID Status Reason Start Date Expiration Date V isits Requested Visits Authorized [id number] Canceled Continuity of Care 09/28/2023 09/27/2024 1 1 Encounter Details Date Type Department Care Team (Late st Contact Info) Description 09/28/2023 Orders Only [facility] [address] [place], [place] [phone] Noelle Birmingham, PharmD [address] [place], [place] [phone] BEATRIZ (acute kidney injury) (CMS/HCC) (Primary Dx) [...] Description 11/10/2024 10:45 AM EDT Procedure Visit [facility] [address] [place] [address] Zoraida Luo MD [address] [place] [address] 11/23/2024 11:00 AM EDT Medication Management [facility] [address] [place] [address] Sarah Medina, PharmD [address] [place] [address] 11/24/2024 1:00 PM EDT Office Visit [facility] [address] [place] [address] Donny Oneill Scheduled Referrals Name Type Priority Associated Diagnoses Orde r Schedule Referral to Pharmacy [place] Outpatient Referral Routine BEATRIZ (acute kidney injury) ([facility]) Ordered: 09/28/2023 documented as of this encounter Goals Goal Patient Goal Type Associated Problems Recent Progress Patient-Stated? Author Patient will adhere to medication regimen General On track( 023 2:23 PM EDT) No Anderson Zapata, PharmParveen Hemoglobin A1c < 7 Result Component 11.8(11/04/19 11:17 AM EDT) No Anderson Zapata, PharmD documented as of this encounter Visit Diagnoses Diagnosis BEATRIZ (acute kidney injury) ([facility])- Primary documented in this encounter Additional Health Concerns Assessment Noted Time PHQ-9 Depression Total Score: 8 07/22/19 11:43 AM EST documented as of this encounter Care Teams Telephone Recorder Relationship Specialty Start Date End Date Zoraida Luo MD [address] [place] [address] PCP - General Family Medicine 05/02/21 Andrea Zarate RN [address] [place] [address] Beam House InspectorSkills Instructor 03/22/24 08/28/24 Andrea Zarate RN [address] [place] [address] Beam House InspectorSkills Instructor 08/25/24 Sarah Medina PharmD [address] [place] [address] Pharmacist Internal Medicine 10/26/24 Ana Chávez Insulator Cutter And Former 07/15/23 [facility] Housing Glass Grinder 09/01/23 [facility] 08/25/23 documented as of this encounter
--- OUTSIDE RECORDS SUMMARY | 2024-11-09 12:54 | XMS_ITS | Encounter Summary ---
Author Organization [employer] Address [address] [facility] [address] [place] [address] Care Team Providers Care Side Piece Coverer Name Role Phone Zoraida Luo MD Primary Care Provider [phone] Andrea Zarate RN Unavailable [phone] Andrea Zarate RN Unavailable [phone] Sarah Medina PharmD Unavailable [phone] Reason for Visit * Reason Comments Med Refill Encounter Details Date Type Department Care Team (Late st Contact Info) Description 04/28/2024 Refill [facility] [address] [place] [address] Zoraida Luo MD [address] [place] [address] Bilateral primary osteoarthritis of knee Social History [...] 10:45 AM EDT Procedure Visit [facility] [address] [place] [address] Zoraida Luo MD [address] [place] [address] 11/23/2024 11:00 AM EDT Medication Management [facility] [address] [place] [address] Sarah Medina PharmD [address] [place] [address] 11/24/2024 1:00 PM EDT Office Visit [facility] [address] [place] [address] Donny Oneill documented as of this encounter Goals Goal Patient Goal Type Associated Problems Recent Progress Patient-Stated? Author Patient will adhere to medication regimen General On track( 023 2:23 PM EDT) No Anderson Zapata, Ivis Hemoglobin A1c < 7 Result Component 11.8(11/04/19 11:17 AM EDT) No Anderson Zapata, Ivis documented as of this encounter Visit Diagnoses Diagnosis Bilateral primary osteoarthritis of knee documented in this encounter Additional Health Concerns Assessment Noted Time PHQ-9 Depression Total Score: 8 07/22/19 11:43 AM EST documented as of this encounter Care Teams Side Piece Coverer Relationship Specialty Start Date End Date Zoraida Luo MD [address] [place] [address] PCP - General Family Medicine 05/02/21 Andrea Zarate RN [address] [place] [address] Developer Relations ManagerAutomation Consultant 03/22/24 08/28/24 Andrea Zarate RN [address] [place] [address] Developer Relations ManagerAutomation Consultant 08/25/24 Sarah Medina PharmD [address] [place] [address] Pharmacist Internal Medicine 10/26/24 Ana Chávez Psychology Technician 07/15/23 [facility] Housing Resaw Feeder 09/01/23 [facility] 08/25/23 documented as of this encounter
--- OUTSIDE RECORDS SUMMARY | 2024-11-09 12:54 | XMS_ITS | Clinical Summary ---
Author Organization [employer] Address [address] [facility] [address] [place] [address] Care Team Providers Care Measurement Superintendent Name Role Phone Zoraida Luo MD Primary Care Provider [phone] Andrea Zarate RN Unavailable [phone] Sarah Medina PharmD Unavailable [phone] Allergies Active Allergy Reactions Criticality Noted Date [...] 11 023 Active Blood Glucose Monitoring Suppl (NuevolutionStyle [place] Lite) w/Device kit 022 Active psyllium (Metamucil) [...] mouth Once per day. 120 capsule 3 024 Active loperamide (Imodium) 2 MG capsule TAKE ONE CAPSULE FOUR TIMES DAILY NEEDED FOR DIARRHEA 120 capsule 2 Active Acetaminophen Extra Strength 500 MG tabletIndicatio ns:Exudative tonsillitis TAKE TWO TABLETS EVERY 8 HOURS NEEDED MILD PAIN 90 tablet Active atorvastatin (Lipitor) 10 MG tablet TAKE ONE TABLET EVERY MORNING 90 tablet 1 Active Epogen 02154 UNIT/ML injection Active BELATACEPT IV Infuse into [...] day. 30 tablet 2025 Active Continuous Glucose Pier Worker (FreeStyle John 3 Mason) deviceIndicatio ns:Other specified diabetes mellitus with hyperglycemia, with long-term current use of insulin ([facility]) 1 each Once per day. Use as directed for CGM 1 each Active Continuous Glucose Sensor (FreeStyle John 3 Plus Sensor) miscIndications :Other specified diabetes mellitus with hyperglycemia, with long-term current use of insulin ([facility]) 1 each every 15 days. [...] 473 mL 025 Active Pentips Generic Pen [place] 31G X 5 MM misc USE FOUR [...] hyperglycemia, with long-term current use of insulin ([facility]) TEST BLOOD SUGAR FOUR TIMES DAILY AND NEEDED 2 each 024 2024 Discontinued(M ed list cleanup (will not trigger notification to Pharmacy)) Continuous Glucose Pier Worker (FreeStyle John 2 Mason) deviceIndicatio ns:Other specified diabetes mellitus with hyperglycemia, with long-term current use of insulin ([facility]) TEST BLOOD SUGAR FIVE TIMES [...] mL 2 025 2024 Discontinued(A lternate therapy) Active Problems Patient Care Coordination No te Formatting of this note migh t be different from the original. C3/CM Sierra Abel RN Problem Noted Date Diagnosed Date Chronic right shoulder pain 11/03/2024 Chronic left shoulder pain 11/03/2024 Primary insomnia 11/03/2024 Assessment & Plan (11/03/2024 12:56 PM EDT): Patient reports difficulty sleeping, waking up at 3-4 AM and unable to fall back asleep. Currently using trazodone for sleep, but the effect is not lasting through the night. Plan: - Increase trazodone dosage to full tablet at bedtime - Educate patient on sleep hygiene practices - Monitor for improvement in sleep pattern and any side effects from increased medication dose Swelling of both knees 05/17/2024 COVID-19 05/11/2024 [...] for recheck for 1 week. F/u with Population Geneticist. C. difficile colitis 09/01/2023 Assessment & Plan [...] Right BKA performed 01/25/23 Assessment & Plan (11/03/2024 12:55 PM EDT): Assessment: Patient reports issues with prosthesis fit, causing discomfort and mobility limitations. There is also noted edema in the affected limb, which may be contributing to the poor fit. Plan: - Refer patient back to prosthetics clinic for re-evaluation and adjustment of prosthesis - Recommend use of compression socks to manage edema - Assess need for mobility aids - Await wheelchair vendor appointment for further evaluation Assessment & Plan (03/25/2023 11:35 AM EDT): Upcoming appt with Vascular in Mar 2023 Candidiasis of mouth 03/23/2023 BEATRIZ (acute kidney injury) 03/23/2023 Requires daily assistance fo r activities of daily living (ADL) and comfort needs 03/23/2023 Assessment & Plan (11/03/2024 12:58 PM EDT): Patient reports current shower chair is broken and needs a replacement. He needs this shower chair to be able to shower given amputation. He also is requesting recliner, given his amputations he will benefit of this, aware will need PT eval. Assessment & Plan (08/16/2023 10:24 AM EST): Patient reports he feels unhappy about his allotted time for LGSW services, reports that it is not sufficient to cover his ADLs/IADLs. He is also has been waiting for more then 4 months on a motorized wheelchair/scooter, he has not gotten to PT hence why the prescription has not been sent as it is a requirement. At this time, I contacted post acute care registered nurse for patient to assist with this and also placed an outside PT referral since multiple attempt to get home PT have failed. Assessment & Plan (03/23/2023 5:24 PM EDT): Patient was scheduled for f/up DM but was unable to review his cGM nor his control. Given that this time was used to call his PSYCHIATRY INSTRUCTOR agency and clarifying delay in receiving his PSYCHIATRY INSTRUCTOR, they request a letter which was fax to their agency ([facility]- [phone]). - Calling DME specialist: he received his [...] Assessment & Plan (07/30/2023 4:10 PM EST): Siga-ek-Tddf Attestation: I certify that this patient is under my care and that I had a zynb-ua-xakw visit encounter that meets the provider tmyv-oc-lljf encounter requirements with this patient. Diagnosis and [...] my care and that I had a nszq-ox-dkcm visit encounter that meets the provider gdgg-mf-nnki encounter requirement with this patient. ?? Diagnosis [...] the primary diagnosis related specific need for PSYCHIATRY INSTRUCTOR: - patient needs assessment of his ADL [...] Assessment & Plan (02/26/2023 1:23 PM EDT): Zorn-bl-Jlsa Attestation: I certify that this patient is under my care and that I had a znij-eq-vvki visit encounter that meets the provider rmng-cc-bilw encounter requirements with this patient. Diagnosis and [...] the primary diagnosis related specific need for LGSW: - patient needs assessment of his ADL [...] TWI in lead aVL -pt reports saw restaurant worker in the past--advised today to f w [...] has had extensive w/u by gastroenterology in [facility] for this chronic diarrhea. He has not [...] stress test. Will need to send to [facility] and f/u with results Mild intermittent asthma 05/19/2022 Osteomyelitis of forefoot 05/19/2022 Diabetic foot infection 05/18/2022 Assessment & Plan (03/23/2023 3:10 PM EDT): -Recommended patient to call agency to be able to have a LGSW assigned. Assessment & Plan (02/26/2023 1:09 PM [...] reading-reports to be following as well w transfer driver -alarm signs and symptoms discussed w pt [...] current medications and refills as needed. Called Population Geneticist office to try and get through to confirm appointments for F/u in one week. Diabetes mellitus 05/18/2022 Assessment & Plan (11/03/2024 12:54 PM EDT): Patient reports frequent hypoglycemic episodes with blood glucose levels dropping as low as 50 mg/dL, causing symptoms such as headaches. He also experiences hyperglycemic episodes, with glucose levels reaching 250 mg/dL. The patient is currently using a continuous glucose monitoring system and is on Tresiba (insulin degludec) and Trulicity (dulaglutide) at maximum dose (4.5 mg). Despite these interventions, glycemic control remains suboptimal. Plan: - Continue Tresiba (insulin degludec) 26 units subcutaneously daily - Continue Trulicity (dulaglutide) 4.5 mg subcutaneously weekly - Consider switching to Mounjaro (tirzepatide) if glycemic control does not improve - Follow up with Sarah Medina as scheduled - Patient to monitor blood glucose levels closely and report any severe hypoglycemic or hyperglycemic episodes - Educate patient on proper management of hypoglycemia Assessment & Plan (06/15/2024 3:10 PM EST): [...] & Plan (03/02/2024 4:46 PM EDT): Contacted [facility] and spoke with Annette to request [...] Center 09/14/2023 1:00 PM Natasha Bernard RN [facility]IA E N[facility] 10/01/2023 10:00 AM Zoraida Luo MD [facility] MED [facility] Labs: Glucose, HGB A1C Assessment & [...] cis-male with previous documented hx of Depression services including OP Psychotherapy psychopharmacology who presents [...] intervention , Patient to reach out to [facility] team as needed, and Comply with [...] gastroenterology team. Hypertension 05/06/2012 Assessment & Plan (11/03/2024 12:53 PM EDT): In the setting of DM and CKD, has appt on Wednesday with physical therapy supervisor, worsening renal function. Will need to observe and possible med adjustment. Hold off changes today. Target < 130/80 mmHg. Assessment & Plan (04/05/2023 2:32 PM EDT): [...] Encounters Date Type Department Care Team Description 11/09/2024 Telephone [facility] MEDICINE [address] [place] [phone] Zoraida Luo MD 11/07/2024 Results Follow-Up [facility] [address] [place] [address] Zoraida Luo MD XR Shoulder 2+ Views Right 11/03/2024 11:30 AM EDT Office Visit [facility] [address] [place] [address] Zoraida Luo MD Other specified diabetes mellitus with hyperglycemia, with long-term current use of insulin ([facility]) (Primary Dx); Chronic right shoulder pain; Chronic left shoulder pain; Requires daily assistance for activities of daily living (ADL) and comfort needs; Mobility impaired; Leg edema, left; S/P BKA (below knee amputation) unilateral, right (CMS/HCC); Primary hypertension; Primary insomnia 11/03/2024 Telephone [facility] [address] [place] [address] Zoraida Luo MD Durable Medical Equipment 11/03/2024 Travel 11/01/[address] [address] Zoraida Luo MD Care Management (C3CM- f/u call) 11/01/2024 Patient Outreach [address] [address] Zoraida Luo MD Care Coordination (SDOH f/u) 11/01/2024 Travel 10/26/2024 Travel 10/26/[address] [address] Zoraida Luo MD 10/25/2024 Patient Outreach [address] [address] Zoraida Luo MD Pre-visit Planning (SDOH screening negative and Tobacco screening negative) 10/23/[address] [address] Zoraida Luo MD Care Management (C3CM- f/u call) 10/20/2024 Telephone [facility] [address] [place] [address] Zoraida Luo MD Medication Question 10/19/2024 Refill [facility] [address] [place] [address] Zoraida Luo MD 10/17/2024 Patient Outreach [facility] [address] [place] [address] Zoraida Luo MD Care Coordination (SDOH f/u) 10/17/[address] [address] Zoraida Luo MD Care Management (C3- f/u call lvm) 10/14/2024 Refill [facility] [address] [place] [address] Zoraida Luo MD 10/10/[address] [address] Zoraida Luo MD ER Follow-up 10/10/[address] [address] Zoraida Luo MD Care Management (C3- f/u call/ status check) 10/10/2024 Refill [facility] [address] [place] [address] Zoraida Luo MD 10/05/2024 2:20 PM EDT Office Visit [facility] [address] [place] [address] Lisbeth Amaya MD Bilateral lower extremity edema (Primary Dx); Type 2 diabetes mellitus with hyperglycemia, with long-term current use of insulin ([facility]); 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 10/05/2024 1:00 PM EDT Office Visit [facility] [address] [place] [address] Slime Franco 10/05/2024 Travel 10/04/2024 Patient Outreach [address] [address] Zoraida Luo MD Care Coordination (SDOH) 10/04/[address] [address] Zoraida Luo MD Care Management (C3CM- f/u call) 10/02/2024 2:00 PM EDT Office Visit [facility] [address] [place] [address] Slime Franco 09/29/[address] [address] Zoraida Luo MD 09/25/[address] [address] Zoraida Luo MD Care Management (C3CM- f/u call lvm) 09/22/[address] [address] Zoraida Luo MD 09/21/[address] [address] Zoraida Luo MD 09/20/2024 Orders Only [facility] [address] [place] [address] Gina Connelly MD Dry gangrene ([facility]) (Primary Dx); Peripheral vascular disease ([facility]); Phantom limb syndrome with pain ([facility]); S/P BKA (below knee amputation) unilateral, right ([facility]) 09/20/2024 Patient Outreach [address] [address] Zoraida Luo MD Care Coordination (SDOH f/u) 09/20/[address] [address] Zoraida Luo MD 09/15/[address] [address] Zoraida Luo MD Care Management (C3 - f/u call) 09/11/2024 Patient Outreach [address] [address] Zoraida Luo MD Care Coordination (SDOH) 09/08/2024 9:00 AM EDT Office Visit [facility] [address] [place] [address] Faustino Mayes MD Gastroesophageal reflux disease without esophagitis (Primary Dx); Type 2 diabetes mellitus with hyperglycemia, with long-term current use of insulin ([facility]) 09/08/2024 Travel 09/07/[address] [address] Zoraida Luo MD Care Management ([facility]- f/u call) 09/07/2024 Patient Outreach [address] [address] Zoraida Luo MD Care Coordination (SDOH f/u) 09/04/[address] [address] Zoraida Luo MD 09/01/2024 Population Health Risk Score [facility] () [address] [phone] Provider, Population Health Generic 08/31/2024 Patient Outreach [facility] [address] [place] [address] Zoraida Luo MD Care Coordination (SDOH) 08/29/[address] [address] Zoraida Luo MD Care Management ([facility]- initial assessment/ enrollment) 08/24/2024 11:15 AM EST Office Visit [facility] [address] [place] [address] Mauricio Oneill MD Other specified diabetes mellitus with hyperglycemia, with long-term current use of insulin ([facility]) (Primary Dx); Gastroesophageal reflux disease, unspecified whether esophagitis present 08/24/2024 Telephone [facility] [address] [place] [address] Zoraida Luo MD 08/24/[address] [address] Zoraida Luo MD 08/24/[address] [address] Zoraida Luo MD 08/24/2024 Travel 08/23/2024 Patient Outreach [facility] [address] [place] [address] Zoraida Luo MD Care Coordination ([facility] outreach) 08/21/2024 Refill [facility] [address] [place] [address] Zoraida Luo MD from Last 3 Months Immunizations Immunization Administration [...] Description 11/10/2024 10:45 AM EDT Procedure Visit [facility] [address] [place] [address] Zoraida Luo MD [address] [place] [address] 11/23/2024 11:00 AM EDT Medication Management [facility] [address] [place] [address] Sarah Medina, PharmD [address] [place] [address] 11/24/2024 1:00 PM EDT Office Visit [facility] [address] [place] [address] Donny Oneill Health Maintenance Due Date Last Done Comments CT Colonography 1965 Colonoscopy 1965 Colorectal Cancer Screening 1965 FIT DNA/Cologuard 1965 FIT 1965 FOBT 1965 HIV Screening 1965 Sigmoidoscopy 1965 Disability Screening 1965 Eye Exam 1975 Hepatitis C Screening 1983 Hepatitis B Vaccines (1 of 3 - 19+ 3-dose series) 1984 Lipid Panel 11/10/2022 11/10/2021 Diabetes: Foot Exam 02/02/2023 COVID-19 Vaccine ( season) 2024 08/24/2022, 06/04/2022, 10/04/2020, Additional history exists Depression Screening 07/22/2024 07/22/2023, 07/22/19 Dental Oral Exam 11/24/2024 05/25/2024 Dental Prophylaxis [...] Procedure Name Priority Date/Time Associated Diagnosis Comments XR SHOULDER 2+ VIEWS RIGHT Routine 11/03/2024 12:16 PM EDT Chronic right shoulder pain XR SHOULDER 2+ VIEWS LEFT Routine 11/03/2024 12:16 PM EDT Chronic left shoulder pain POCT GLYCATED HEMOGLOBIN, TOTAL Routine 11/03/2024 11:17 AM EDT Other specified diabetes mellitus with hyperglycemia, with long-term current use of insulin ([facility]) POCT GLUCOSE Routine 11/03/2024 11:17 AM EDT Other specified diabetes mellitus with hyperglycemia, with long-term current use of insulin ([facility]) POCT URINALYSIS DIPSTICK Routine 10/05/2024 3:19 PM EDT Type 2 diabetes mellitus with hyperglycemia, with long-term current use of insulin ([facility]) POCT GLUCOSE Routine 10/05/2024 2:36 PM EDT Type 2 diabetes mellitus with hyperglycemia, with long-term current use of insulin ([facility]) CASE PRESENTATION, DETAILED AND EXTENSIVE [...] hyperglycemia, with long-term current use of insulin ([facility]) POCT GLUCOSE Routine 08/24/2024 3:46 PM EST Other specified diabetes mellitus with hyperglycemia, with long-term current use of insulin ([facility]) POCT GLUCOSE Routine 08/24/2024 11:22 AM EST Other specified diabetes mellitus with hyperglycemia, with long-term current use of insulin ([facility]) POCT GLYCATED HEMOGLOBIN, TOTAL Routine 08/24/2024 11:20 AM EST Other specified diabetes mellitus with hyperglycemia, with long-term current use of insulin ([facility]) PROPHYLAXIS - ADULT Routine 05/25/2024 1 0:00 AM EST INTRAORAL - COMPLETE SERIES OF RADIOGRAPHIC IMAGES Routine 05/25/2024 10:00 AM EST COMPREHENSIVE ORAL EVALUATION - NEW OR ESTABLISHED PATIENT Routine 05/25/2024 10:00 AM EST LIPID PANEL, STANDARD Routine 11/10/2021 11:45 AM EDT from Last 3 Months or Most Recently Relevant to Health Maintenance Results * XR Shoulder 2+ Views Right (11/03/2024 12:16 PM EDT) Anatomical Region Laterality Modality Upper Extremities, Shoulder Right Radi ographic Imaging 11/03/2024 12:1 6 PM EDT Narrative 11/03/2024 2:18 PM EDT ?[facility] ?[address] ?[place] [address] ?XRay Report ? Signed ? Patient: Sheriff,Tito O ?MR#: [id number] ?? 00 ? : 1965 ?Acct:[id number] ? Age/Sex: 59 / M ?ADM Date: 05/16/25 ? Loc: HO.HHCX ? Attending Dr: Zoraida Luo MD ? Ordering Physician: Zoraida Luo MD ?? Date of Service: 11/03/24 ?? Procedure(s): XR shoulder RT min 2V ?? Accession Number(s): [id number] ? cc: Zoraida Luo MD ? EXAMINATION: ??XR SHOULDER 2 OR MORE VIEWS RIGHT ? HISTORY: 59 yo M with right shoulder pain send to [facility] ? COMPARISON: Comparison is made with the prior examination dated ?? 11/02/2022. ? FINDINGS: ? Two views of the right shoulder are submitted. ??Osseous mineralization ?? is normal. ??There is no fracture or dislocation. ??The glenohumeral ?? joint is maintained. There is mild degenerative change of the AC joint ?? with inferior osteophyte formation noted. ??The soft tissues are ?? unremarkable. ? XR/XR shoulder RT min 2V ?? IMPRESSION: ? Mild degenerative change of the AC joint. ? Electronically signed by: ??Sonu Calero MD ??11/03/2024 02:15 PM EDT ? Dictated By: ?Sonu Calero MD ? Signed By: ?<Electronically signed by Sonu Calero MD in OV> ?11/03/24 1415 ? DD/ 1216 ? TD/TT: 11/03/24 1220 ? Interpreter And Translator: ? Procedure Note Patrick, Image - 11/06/2024 [place] [address] XRay Report Signed Patient: Tito Sheriff OMR#: [id number] 00 : 1965Acct:[id number] Age/Sex: 59 / MADM Date: 11/03/24 Loc: HO.HHCX Attending Dr: Zoraida Luo MD Ordering Physician: Zoraida Luo MD Date of Service: 11/03/24 Procedure(s): XR shoulder RT min 2V Accession Number(s): [id number] cc: Zoraida Luo MD EXAMINATION: XR SHOULDER 2 OR MORE VIEWS RIGHT HISTORY: 59 yo M with right shoulder pain send to [place] COMPARISON: Comparison is made with the prior examination dated 11/02/2022. FINDINGS: Two views of the right shoulder are submitted. Osseous mineralization is normal. There is no fracture or dislocation. The glenohumeral joint is maintained. There is mild degenerative change of the AC joint with inferior osteophyte formation noted. The soft tissues are unremarkable. XR/XR shoulder RT min 2V IMPRESSION: Mild degenerative change of the AC joint. Electronically signed by: Sonu Calero MD 11/03/2024 02:15 PM EDT Dictated By: Sonu Calero MD Signed By: <Electronically signed by Sonu Calero MD in OV> 11/03/24 1415 DD/ 1216 TD/TT: 11/03/24 1220 Interpreter And Translator: us Zoraida Luo MD IMG XR PROCEDURES Edited Resu lt - Final * XR Shoulder 2+ Views Left (11/03/2024 12:16 PM EDT) Anatomical Region Laterality Modality Upper Extremities, Shoulder Left Radi ographic Imaging 11/03/2024 12:1 6 PM EDT Narrative 11/03/2024 2:19 PM EDT ?[facility] ?[address] ?[place] [address] ?XRay Report ? Signed ? Patient: Sheriff,Tito O ?MR#: [id number] ?? 00 ? : 1965 ?Acct:[id number] ? Age/Sex: 59 / M ?ADM Date: 11/03/ ? Loc: HO.HHCX ? Attending Dr: Zoraida Luo MD ? Ordering Physician: Zoraida Luo MD ?? Date of Service: 11/03/24 ?? Procedure(s): XR shoulder LT min 2V ?? Accession Number(s): [id number] ? cc: Zoraida Luo MD ? EXAMINATION: ??XR SHOULDER 2 OR MORE VIEWS LEFT ? HISTORY: 59 yo M with left shoulder pain send to [facility] ? COMPARISON: Comparison is made with the prior examination dated ?? 11/02/2022. ? FINDINGS: ? Two views of the left shoulder are submitted. ??Osseous mineralization ?? is normal. ??There is no fracture or dislocation. ??The glenohumeral ?? joint is maintained. There is mild degenerative change of the AC joint ?? with inferior osteophyte formation. ??Vascular stent is seen in the ?? upper arm. ? XR/XR shoulder LT min 2V ?? IMPRESSION: ? Mild degenerative change of the AC joint. ? Electronically signed by: ??Sonu Calero MD ??11/03/2024 02:16 PM EDT ? Dictated By: ?Sonu Calero MD ? Signed By: ?<Electronically signed by Sonu Calero MD in OV> ?11/03/24 1416 ? DD/ 1216 ? TD/TT: 11/03/24 1220 ? Interpreter And Translator: ? Procedure Note Patrick, Image - 11/06/[address] [address] XRay Report Signed Patient: Tito Sheriff OMR#: [id number] 00 : 1965Acct:[id number] Age/Sex: 59 / MADM Date: 11/03/24 Loc: HO.HHCX Attending Dr: Zoraida Luo MD Ordering Physician: Zoraida Luo MD Date of Service: 11/03/24 Procedure(s): XR shoulder LT min 2V Accession Number(s): [id number] cc: Zoraida Luo MD EXAMINATION: XR SHOULDER 2 OR MORE VIEWS LEFT HISTORY: 59 yo M with left shoulder pain send to [place] COMPARISON: Comparison is made with the prior examination dated 11/02/2022. FINDINGS: Two views of the left shoulder are submitted. Osseous mineralization is normal. There is no fracture or dislocation. The glenohumeral joint is maintained. There is mild degenerative change of the AC joint with inferior osteophyte formation. Vascular stent is seen in the upper arm. XR/XR shoulder LT min 2V IMPRESSION: Mild degenerative change of the AC joint. Electronically signed by: Sonu Calero MD 11/03/2024 02:16 PM EDT Dictated By: Sonu Calero MD Signed By: <Electronically signed by Sonu Calero MD in OV> 11/03/24 1416 DD/ 1216 TD/TT: 11/03/24 1220 Interpreter And Translator: us Zoraida Luo MD IMG XR PROCEDURES Edited Resu lt - Final * (ABNORMAL) POCT HGB A1C (11/03/2024 11:17 [...] Media Lot # [id number] Lot# Expiration Date ,025 Blood Capillary blood specimen / Unknown 11/03/2024 [...] Appearance, UA clear QC Media Lot # Comment:[id number] Lot# Expiration Date Comment:03/20/2025 Urine 10/05/2024 3:19 [...] ?? Nishant AGUILAR et al. HARLEEN. 2013;310(19): 5670-9735 ?? (http://education.My 1%/faq/PQI359) Non-HDL Cholesterol 68 <130 mg/dL (calc) [facility] Comment: For patients with diabetes plus 1 major ASCVD risk ?? factor, treating to a non-HDL-C goal of <100 mg/dL ?? (LDL-C of <70 mg/dL) is considered a therapeutic ?? option. Triglycerides 221(H) <150 mg/dL [facility] Comment: ?? If a non-fasting specimen was collected, consider repeat triglyceride testing on a fasting specimen if clinically indicated. ?? Reji et al. J. of Clin. Lipidol. 2015;9:129-169. ?? 11/10/2021 11:4 5 AM EDT us Selma Morley MD LAB BLOOD ORDERABLES Final Resul t [facility] [address] from Last 3 Months or Most Recently Relevant to Health Maintenance Insurance [facility] C3 DENTAL-[facility] MEDICAID STAND ADULT * Guarantor: Tito Barboza Account Type Relation to Patient Date of Phone Billing Address Personal/Family Self [place], [place] * Guarantor: Tito Barboza Account Type Relation to Patient Date of Phone Billing Address Personal/Family Self [place], [place] Care Teams Measurement Superintendent Relationship Specialty Start Date End Date Zoraida Luo MD [address] [place] [address] PCP - General Family Medicine 05/02/21 Andrea Zarate, RN [address] [place] [address] Saturation Equipment OperatorBillboard Poster Helper 08/25/24 Sarah Medina, YumikoD [address] [place] [address] Pharmacist Internal Medicine 10/26/24 Ana Chávez Population Geneticist 07/15/23 [facility] Housing Peoplesoft Fscm Developer 09/01/23 [facility] 08/25/23
--- OUTSIDE RECORDS SUMMARY | 2024-11-09 12:54 | XMS_ITS | Encounter Summary ---
Author Organization [employer] Address [address] [facility] 7t [place] [address] Care Team Providers Care Guard Entrance Registrar Name Role Phone Zoraida Luo MD Primary Care Provider [phone] Andrea Zarate RN Unavailable [phone] Andrea Zarate RN Unavailable [phone] Sarah Medina PharmD Unavailable [phone] Reason for Visit * Reason Onset Date Comments FYI 01/12/2024 Encounter Details Date Type Department Care Team (Late st Contact Info) Description 01/12/2024 Telephone [facility] MEDICINE [address] [place] [address] Zoraida Luo MD [address] [place], [place] [phone] FYI Social History Tobacco Use Types Packs/Day [...] - 01/12/2024 8:28 AM EDT Tc from [facility] calling to report will be resuming fdc patient was in hospital on 01/05 and and discharged 01/08 [facility] and while being admitted was given new medications for additional information please call [phone] documented in this encounter Plan of Treatment Upcoming Encounters Date Type Department Care Team (Late st Contact Info) Description 11/10/2024 10:45 AM EDT Procedure Visit [facility] CHC MED & PEDS [address] [place] [address] Zoraida Luo MD [address] [place] [address] 11/23/2024 11:00 AM EDT Medication Management [facility] MED & PEDS [address] [place] [address] Sarah Medina PharmD [address] [place] [address] 11/24/2024 1:00 PM EDT Office Visit [facility] ADULT DENTAL [address] [place] [address] Donny Oneill documented as of this encounter [...] documented as of this encounter Care Teams Guard Entrance Registrar Relationship Specialty Start Date End Date Zoraida Luo MD [address] [place] [address] PCP - General Family Medicine 05/02/21 Andrea Zarate, PATRIA [address] [place] [address] Tester RegulatorManager Of Environmental Services 03/22/24 08/28/24 Andrea Zarate, PATRIA [address] [place] [address] Tester RegulatorManager Of Environmental Services 08/25/24 Sarah Medina PharmD [address] [place] [address] Pharmacist Internal Medicine 10/26/24 Ana Chávez Coffee Shop Manager 07/15/23 [facility] Housing Sales Branch Manager 09/01/23 [facility] 08/25/23 documented as of this encounter
--- OUTSIDE RECORDS SUMMARY | 2024-11-09 12:54 | XMS_ITS | Encounter Summary ---
Author Organization [employer] Address [address] [facility] 7t [place] [address] Care Team Providers Care Accountant Property Name Role Phone Zoraida Luo MD Primary Care Provider [phone] Andrea Zarate RN Unavailable [phone] Andrea Zarate RN Unavailable [phone] Sarah Medina PharmD Unavailable [phone] Encounter Details Date Type Department Care Team ([facility] st Contact Info) Description 12/15/2022 Telephone [facility] MEDICINE [address] [place] [address] Zoraida Luo MD [address] [place] [address] Social History Tobacco Use Types Packs/Day Years [...] Description 11/10/2024 10:45 AM EDT Procedure Visit [facility] MED & PEDS [address] [place] [address] Zoraida Luo MD [address] [place], [place] 11/23/2024 11:00 AM EDT Medication Management [facility] MED & PEDS [address] [place], [place] [phone] Sarah Medina PharmD [address] [place] [address] 11/24/2024 1:00 PM EDT Office Visit [facility] ADULT DENTAL [address] [place], [place] [phone] Donny Oneill documented as of this encounter [...] documented as of this encounter Care Teams Accountant Property Relationship Specialty Start Date End Date Zoraida Luo MD [address] [place] [address] PCP - General Family Medicine 05/02/21 Andrea Zarate RN [address] [place] [address] Hvac Service TechnicianTombstone Erector 03/22/24 08/28/24 Andrea Zarate RN [address] [place] [address] Hvac Service TechnicianTombstone Erector 08/25/24 Sarah Medina, Ivis [address] [place] [address] Pharmacist Internal Medicine 10/26/24 Ana Chávez Anatomy Teacher 07/15/23 [facility] Housing Political Theory Professor 09/01/23 [facility] 08/25/23 documented as of this encounter
--- OUTSIDE RECORDS SUMMARY | 2024-11-09 12:54 | XMS_ITS | Encounter Summary ---
Author Organization [employer] Address [address] [facility] [address] 7t [place] [address] Care Team Providers Care Assistant Merchandise Manager Name Role Phone Zoraida Luo MD Primary Care Provider [phone] Andrea Zarate RN Unavailable [phone] Sarah Medina PharmD Unavailable [phone] Encounter Details Date Type Department Care Team (Late st Contact Info) Description 11/09/2024 Telephone [facility] MEDICINE [address] [place] [address] Zoraida Luo MD [address] [place], [place] [phone] Social History Tobacco Use Types Packs/Day Years [...] encounter Miscellaneous Notes * Telephone Encounter - Russell Villavicencio - 11/09/2024 8:38 AM EDT Tc from pt requesting to r/s 11-15-2024 appt documented in this encounter Plan of Treatment Upcoming Encounters Date Type Department Care Team ([facility] st Contact Info) Description 11/10/2024 10:45 AM EDT Procedure Visit [facility] MED & PEDS [address] [place] [address] Zoraida Luo MD 505 [place] [address] 11/23/2024 11:00 AM EDT Medication Management [facility] MED & PEDS [address] [place] [address] Sarah Medina, PharmD [address] [place] [address] 11/24/2024 1:00 PM EDT Office Visit [facility] CHC ADULT DENTAL [address] [place] [address] Donny Oneill documented as of this encounter Goals Goal Patient Goal Type Associated Problems Recent Progress Patient-Stated? Author Patient will adhere to medication regimen General On track( 023 2:23 PM EDT) No DellogonoTurneris, PharmD Hemoglobin A1c < 7 Result Component 11.8(11/04/19 11:17 AM EDT) No RosendologAnderson collier, PharmD documented as of this encounter Visit Diagnoses Not on filedocumented in this encounter Additional Health Concerns Assessment Noted Time PHQ-9 Depression Total Score: 8 07/22/19 11:43 AM EST documented as of this encounter Care Teams Assistant Merchandise Manager Relationship Specialty Start Date End Date Zoraida Luo MD [address] [place] [address] PCP - General Family Medicine 05/02/21 Andrea Zarate, PATRIA [address] [place] [address] Worm FarmerMop Machine Operator 08/25/24 Sarah Medina PharmD [address] [place] [address] Pharmacist Internal Medicine 10/26/24 Ana Chávez Desk Clerk 07/15/23 [facility] Housing [employer] School Principal 09/01/23 [facility] 08/25/23 documented as of this encounter
--- OUTSIDE RECORDS SUMMARY | 2024-11-09 12:54 | XMS_ITS | Encounter Summary ---
Author Organization [employer] Address 75 [facility] 7t [place] [address] Care Team Providers Care Tearer Press Clipping Name Role Phone Zoraida Luo MD Primary Care Provider [phone] Andrea Zarate RN Unavailable [phone] Andrea Zarate RN Unavailable [phone] Sarah Medina PharmD Unavailable [phone] Reason for Visit * Reason Onset Date Comments Hospital Follow-up 01/12/2024 Encounter Details Date Type Department Care Team (Late st Contact Info) Description 01/12/2024 Telephone [facility] MEDICINE [address] [place] [address] Zoraida Luo MD [address] [place], [place] [phone] Hospital Follow-up Social History Tobacco Use Types [...] from pt requesting a HDF appt. Hospital: [facility] [place] Date of admission: 01/05 Discharge date: 01/08 Diagnosed: High Blood Sugar documented in this encounter Plan of Treatment Upcoming Encounters Date Type Department Care Team (Late st Contact Info) Description 11/10/2024 10:45 AM EDT Procedure Visit [facility] MED & PEDS [address] [place] [address] Zoraida Luo MD [address] [place] [address] 11/23/2024 11:00 AM EDT Medication Management [facility] MED & PEDS [address] [place] [address] Sarah Medina, YumikoD [address] [place] [address] 11/24/2024 1:00 PM EDT Office Visit [facility] ADULT DENTAL [address] [place] [address] Donny Oneill documented as of this encounter [...] documented as of this encounter Care Teams Tearer Press Clipping Relationship Specialty Start Date End Date Zoraida Luo MD [address] [place] [address] PCP - General Family Medicine 05/02/21 Andrea Zarate RN [address] [place] [address] Digital Sales DirectorWatch Supervisor 03/22/24 08/28/24 Andrea Zarate RN [address] [place] [address] Digital Sales DirectorWatch Supervisor 08/25/24 Sarah Medina PharmD [address] [place] [address] Pharmacist Internal Medicine 10/26/24 Ana Chávez Felting Machine Operator Helper 07/15/23 [facility] Housing Relay Worker 09/01/23 [facility] 08/25/23 documented as of this encounter
--- OUTSIDE RECORDS SUMMARY | 2024-11-09 12:54 | XMS_ITS | Encounter Summary ---
Author Organization [employer] Address [address] [facility] 7t [place] [address] Care Team Providers Care Bobbin Winder Name Role Phone Zoraida Luo MD Primary Care Provider [phone] Andrea Zarate RN Unavailable [phone] Andrea Zarate RN Unavailable [phone] Sarah Medina PharmD Unavailable [phone] Reason for Visit * Reason Comments Med Refill Encounter Details Date Type Department Care Team (Late st Contact Info) Description 04/14/2024 Refill [facility] CHC MED & PEDS [address] [place] [address] Zoraida Luo MD [address] [place] [address] Bilateral primary osteoarthritis of knee Social History [...] Upcoming Encounters Date Type Department Care Team ([facility] st Contact Info) Description 11/10/2024 10:45 AM EDT Procedure Visit [facility] MED & PEDS [address] [place] [address] Zoraida Luo MD [address] [place] [address] 11/23/2024 11:00 AM EDT Medication Management [facility] MED & PEDS [address] [place] [address] Sarah Medina, PharmD [address] [place] [address] 11/24/2024 1:00 PM EDT Office Visit [facility] CHC ADULT DENTAL [address] [place] [address] Donny Oneill documented as of this encounter [...] documented as of this encounter Care Teams Bobbin Winder Relationship Specialty Start Date End Date Zoraida Luo MD [address] [place] [address] PCP - General Family Medicine 05/02/21 Andrea Zarate RN [address] [place] [address] Housing And Residence Life DirectorSuperannuation Clerk 03/22/24 08/28/24 Andrea Zarate RN [address] [place] [address] Housing And Residence Life DirectorSuperannuation Clerk 08/25/24 Sarah Medina PharmD [address] [place] [address] Pharmacist Internal Medicine 10/26/24 Ana Chávez Mail Censor 07/15/23 [facility] Housing Battalion Chief 09/01/[address] [facility] 08/25/23 documented as of this encounter
--- OUTSIDE RECORDS SUMMARY | 2024-11-09 12:54 | XMS_ITS | Clinical Summary ---
Author Organization [facility] Address [address] [place] [address] Care Team Providers Care Cartography Technician Name Role Phone Pcp, No Primary Care [...] 1965 4 [address] FIGUEROA [address] [place] [id number] MEDICAID OUT OF STATE [facility] Care Teams Cartography Technician Relationship Specialty Start Date End Date Pcp, No [address] [place] [address] PCP - General 03/15/20
--- OUTSIDE RECORDS SUMMARY | 2024-11-09 12:54 | XMS_ITS | Encounter Summary ---
Author Organization [employer] Address [address] [facility] 7t [place] [address] Care Team Providers Care Investigator Internal Affairs Name Role Phone Zoraida Luo MD Primary Care Provider [phone] Andrea Zarate RN Unavailable [phone] Andrea Zarate RN Unavailable [phone] Sarah Medina PharmD Unavailable [phone] Reason for Visit * Reason Comments Med Refill Encounter Details Date Type Department Care Team (Late st Contact Info) Description 05/24/2023 Refill [facility] CHC MED & PEDS [address] [place] [address] Zoraida Luo MD [address] [place] [address] Other specified diabetes mellitus with hyperglycemia, with long-term current use of insulin ([facility]) Social History Tobacco Use Types Packs/Day Years [...] 10:45 AM EDT Procedure Visit [facility] MED & PEDS [address] [place] [address] Zoraida Luo MD [address] [place] [address] 11/23/2024 11:00 AM EDT Medication Management [facility] MED & PEDS [address] [place] [address] Sarah Medina PharmD [address] [place] [address] 11/24/2024 1:00 PM EDT Office Visit [facility] ADULT DENTAL [address] [place] [address] Donny Oneill documented as of this encounter [...] of insulin ([facility]) documented in this encounter Additional Health Concerns Assessment Noted Time PHQ-9 Depression Total Score: 3 07/16/19 23 2:48 PM EST documented as of this encounter Care Teams Investigator Internal Affairs Relationship Specialty Start Date End Date Zoraida Luo MD [address] [place] [address] PCP - General Family Medicine 05/02/21 Andrea Zarate RN [address] [place] [address] Film Editor SupervisorSenior Sales Director 03/22/24 08/28/24 Andrea Zarate RN [address] [place] [address] Film Editor SupervisorSenior Sales Director 08/25/24 Sarah Medina PharmD [address] [place] [address] Pharmacist Internal Medicine 10/26/24 Ana Chávez Health Advocate 07/15/23 [facility] Housing Hydropulper Operator 09/01/23 [facility] 08/25/23 documented as of this encounter
--- OUTSIDE RECORDS SUMMARY | 2024-11-09 12:54 | XMS_ITS | Encounter Summary ---
Author Organization [employer] Address [address] [facility] 7t [place] [address] Care Team Providers Care Bottom Loader Name Role Phone Zoraida Luo MD Primary Care Provider [phone] Andrea Zarate RN Unavailable [phone] Andrea Zarate RN Unavailable [phone] Sarah Medina PharmD Unavailable [phone] Reason for Visit * Reason Comments Med Refill Encounter Details Date Type Department Care Team (Late st Contact Info) Description 04/17/2024 Refill [facility] CHC MED & PEDS [address] [place] [address] Zoraida Luo MD [address] [place] [address] Bilateral primary osteoarthritis of knee Social History [...] 11/10/2024 10:45 AM EDT Procedure Visit [facility] MED & PEDS [address] [place] [address] Zoraida Luo MD [address] [place] [address] 11/23/2024 11:00 AM EDT Medication Management [facility] MED & PEDS [address] [place] [address] Sarah Medina PharmD [address] [place] [address] 11/24/2024 1:00 PM EDT Office Visit [facility] ADULT DENTAL [address] [place] [address] Donny Oneill documented as of this encounter [...] documented as of this encounter Care Teams Bottom Loader Relationship Specialty Start Date End Date Zoraida Luo MD [address] [place] [address] PCP - General Family Medicine 05/02/21 Andrea Zarate RN [address] [place] [address] Cnc SupervisorCena 03/22/24 08/28/24 Andrea Zarate RN [address] [place] [address] Cnc SupervisorCena 08/25/24 Sarah Medina PharmD [address] [place] [address] Pharmacist Internal Medicine 10/26/24 Ana Chávez Comic Writer 07/15/23 [facility] Housing Gold Leaf Layer 09/01/23 [facility] 08/25/23 documented as of this encounter
--- OUTSIDE RECORDS SUMMARY | 2024-11-09 12:54 | XMS_ITS | Encounter Summary ---
Author Organization [employer] Address [address] [facility] 7t [place] [address] Care Team Providers Care Cloud Software Engineer Name Role Phone Zoraida Luo MD Primary Care Provider [phone] Andrea Zarate RN Unavailable [phone] Andrea Zarate RN Unavailable [phone] Sarah Medina PharmD Unavailable [phone] Reason for Visit * Reason Comments Med Refill Encounter Details Date Type Department Care Team (Late st Contact Info) Description 04/13/2023 Refill [facility] CHC MED & PEDS [address] [place] [address] Zoraida Luo MD [address] [place] [address] Social History Tobacco Use Types Packs/Day Years [...] 10:45 AM EDT Procedure Visit [facility] MED & PEDS [address] [place] [address] Zoraida Luo MD [address] [place] [address] 11/23/2024 11:00 AM EDT Medication Management [facility] MED & PEDS [address] [place] [address] Sarah Medina PharmD [address] [place] [address] 11/24/2024 1:00 PM EDT Office Visit [facility] ADULT DENTAL [address] [place] [address] Donny Oneill documented as of this encounter [...] documented as of this encounter Care Teams Cloud Software Engineer Relationship Specialty Start Date End Date Zoraida Luo MD [address] [place] [address] PCP - General Family Medicine 05/02/21 Andrea Zarate RN [address] [place] [address] Distribution SuperintendentApprentice Architect 03/22/24 08/28/24 Andrea Zarate RN [address] [place] [address] Distribution SuperintendentApprentice Architect 08/25/24 Sarah Medina PharmD [address] [place] [address] Pharmacist Internal Medicine 10/26/24 Ana Chávez Global Compensation Analyst 07/15/23 [facility] Housing Aluminum Siding Installer 09/01/23 [facility] 08/25/23 documented as of this encounter
--- OUTSIDE RECORDS SUMMARY | 2024-11-09 12:54 | XMS_ITS | Encounter Summary ---
Author Organization [employer] Address [address] [facility] 7t [place] [address] Care Team Providers Care Agency Sales Management Assistant Name Role Phone Zoraida Luo MD Primary Care Provider [phone] Andrea Zarate RN Unavailable [phone] Andrea Zarate RN Unavailable [phone] Sarah Medina PharmD Unavailable [phone] Reason for Visit * Reason Comments Med Refill Encounter Details Date Type Department Care Team (Late st Contact Info) Description 05/02/2024 Refill [facility] CHC MED & PEDS [address] [place] [address] Zoraida Luo MD [address] [place] [address] Bilateral primary osteoarthritis of knee Social History [...] [facility] MED & PEDS [address] [place] [address] Zoraida Luo MD [address] [place] [address] 11/23/2024 11:00 AM EDT Medication Management [facility] MED & PEDS [address] [place] [address] Sarah Medina PharmD [address] [place] [address] 11/24/2024 1:00 PM EDT Office Visit [facility] ADULT DENTAL [address] [place] [address] Donny Oneill documented as of this encounter [...] documented as of this encounter Care Teams Agency Sales Management Assistant Relationship Specialty Start Date End Date Zoraida Luo MD [address] [place] [address] PCP - General Family Medicine 05/02/21 Andrea Zarate RN [address] [place] [address] Lining BrusherTool Lapper Hand 03/22/24 08/28/24 Andrea Zarate RN [address] [place] [address] Lining BrusherTool Lapper Hand 08/25/24 Sarah Medina PharmD [address] [place] [address] Pharmacist Internal Medicine 10/26/24 Ana Chávez Quality Consultant 07/15/23 [facility] Housing Filling Machine Operator 09/01/23 [facility] 08/25/23 documented as of this encounter
--- OUTSIDE RECORDS SUMMARY | 2024-11-09 12:54 | XMS_ITS | Encounter Summary ---
Author Organization [employer] Address [address] [place] [address] Care Team Providers Care Cell Lead Name Role Phone Zoraida Luo MD Primary Care Provider [phone] Andrea Zarate RN Unavailable [phone] Sarah Medina PharmD Unavailable [phone] Encounter Details Date Type Department Care Team ([facility] Contact Info) Description 11/07/2024 Results Follow-Up [facility] PEDS [address] [place] [address] Zoraida Luo MD [address] [place] [address] XR Shoulder 2+ Views Right Social History Tobacco Use Types Packs/Day Years [...] as of this encounter Progress Notes * Zoraida Luo MD - 11/07/2024 12:10 PM EDT George Hahn Team! Can you please call Tito Sheriff and inform about results? Patient with arthritis on the joint, we could consider shoulder injection if he wishes to. He has an appt in 3 days and we can discuss then. Future Appointments Date Time Provider Department Center 11/10/2024 10:45 AM Zoraida Luo MD [facility] 11/15/2024 11:30 AM Sarah Medina PharmD [facility] 11/24/2024 1:00 PM Donny Oneill [facility] Thanks! Zoraida documented in this encounter Miscellaneous Notes * Telephone Encounter - Josephine Velasquez RN - 11/07/2024 2:27 PM EDT TC to pt with energy projects lead services to review x-ray results and recommendations to follow upwith provider in 3 days at [facility]. Pt verbalized understanding and agreement with plan. documented in this encounter Plan of Treatment Upcoming Encounters Date Type Department Care Team (Late st Contact Info) Description 11/10/2024 10:45 AM EDT Procedure Visit [facility] [address] [place] [address] Zoraida Luo MD [address] [place] [address] 11/23/2024 11:00 AM EDT Medication Management [facility] [address] [place] [address] Sarah Medina PharmD [address] [place] [address] 11/24/2024 1:00 PM EDT Office Visit [facility] ADULT DENTAL [address] [place] [address] Donny Oneill documented as of this encounter Goals Goal Patient Goal Type Associated Problems Recent Progress Patient-Stated? Author Patient will adhere to medication regimen General On track( 023 2:23 PM EDT) No Anderson Zapata, PharmD Hemoglobin A1c < 7 Result Component 11.8(11/04/19 25 11:17 AM EDT) No Anderson Zaptaa, PharmD documented as of this encounter Visit Diagnoses Not on filedocumented in this encounter Additional Health Concerns Assessment Noted Time PHQ-9 Depression Total Score: 8 07/22/19 24 11:43 AM EST documented as of this encounter Care Teams Cell Lead Relationship Specialty Start Date End Date Zoraida Luo MD [address] [place] [address] PCP - General Family Medicine 05/02/21 Andrea Zarate RN [address] [place], [place] [phone] Classified Advertising ManagerPersonal Care Service Provider 08/25/24 Sarah Medina, Ivis [address] [place] [address] Pharmacist Internal Medicine 10/26/24 Ana Chávez Payroll Analyst 07/15/23 [facility] Housing Instructional Technology Instructor 09/01/[address] [facility] 08/25/23 documented as of this encounter
--- OUTSIDE RECORDS SUMMARY | 2024-11-09 12:54 | XMS_ITS | Encounter Summary ---
Author Organization [employer] Address [address] [facility] [address] [place] [address] Care Team Providers Care Bench Hand Machine Name Role Phone Zoraida Luo MD Primary Care Provider [phone] Andrea Zarate RN Unavailable [phone] Andrea Zarate RN Unavailable [phone] Sarah Medina PharmD Unavailable [phone] Encounter Details Date Type Department Care Team (Late Contact Info) Description 02/04/2023 Orders Only [facility] [address] [place] [address] Marisol Zarate Social History Tobacco Use Types [...] Description 11/10/2024 10:45 AM EDT Procedure Visit [facility] [address] [place], [place] [phone] Zoraida Luo MD [address] [place], [place] [phone] 11/23/2024 11:00 AM EDT Medication Management [facility] MED [facility] PED[facility] [address] [place] [address] Sarah Medina PharmD [address] [place] [address] 11/24/2024 1:00 PM EDT Office Visit [facility] ADULT DENTAL [address] [place], [place] [phone] Donny Oneill documented as of this encounter Goals Goal Patient Goal Type Associated Problems Recent Progress Patient-Stated? Author Patient will adhere to medication regimen General On track( 023 2:23 PM EDT) No Anderson Zapata PharmD Hemoglobin A1c < 7 Result Component 11.8(11/04/19 11:17 AM EDT) No Andesron Zapata PharmD documented as of this encounter Visit Diagnoses Not on filedocumented in this encounter Additional Health Concerns Assessment Noted Time PHQ-9 Depression Total Score: 3 07/16/19 23 2:48 PM EST documented as of this encounter Care Teams Bench Hand Machine Relationship Specialty Start Date End Date Zoraida Luo MD [address] [place] [address] PCP - General Family Medicine 05/02/21 Andrea Zarate, PATRIA [address] [place] [address] Rabies InspectorElectrical Solderer 03/22/24 08/28/24 Andrea Zarate RN [address] [place] [address] Rabies InspectorElectrical Solderer 08/25/24 Sarah Medina PharmD [address] [place] [address] Pharmacist Internal Medicine 10/26/24 Ana Chávez Forest Manager 07/15/23 [facility] Housing Hourly Caregiver 09/01/23 [facility] 08/25/23 documented as of this encounter
--- NOTE | 2024-11-09 13:06 | MHC.OFFVIS ---
Vital Signs 11/09/24 13:55 Height 5 ft 3 in Weight 175 lb BMI 31.0 BP 124/56 L Blood Pressure Location Rt brachial Position Sitting Pulse 78 Pulse Source Pulse Oximeter Pulse Oximetry (%) 100 Oxygen Delivery Method Room Air Intake Visit Reasons: Gastroesophageal reflux disease (GERD) Intake Note: ESTABLISHED PATIENT for mgmt of GERD + IBS. CC; C.O. worsening GERD despite PPI therapy. Pt also reports having epigastric pain. Unfortunately, pt did not bring their med list with them, nor do they remember the names of their medications. Immediately after rooming, ME called [facility] (PCP's office) to request med list to be sent over urgently. Will update med list formally upon receiving this information. System Auditor Required: Yes System Auditor Services: System Auditor Present System Auditor Name: MARCELLA [id number], [facility] [place] Information Interpreted: clinical only Accompanied by: Self / Same As Patient Allergies hydromorphone [From DILAUDID] Allergy (Mild, Verified 11/09/24 13:47) ITCHINESS diphenhydramine [From BENADRYL] Allergy (Unknown, Verified 11/09/24 13:47) UNK regadenoson [From Lexiscan] Adverse Reaction (Mild, Verified 11/09/24 13:47) Itching HPI HPI Gastroesophageal reflux disease (GERD): Details: Assessment & Plan (1) Erosive esophagitis: Code(s): K22.10 - Ulcer of esophagus without bleeding Category: Medical (2) Erosive gastritis: Code(s): K29.60 - Other gastritis without bleeding Category: Medical (3) Diarrhea: Code(s): R19.7 - Diarrhea, unspecified Category: Medical (4) Chronic kidney disease, stage 4 (severe): Code(s): N18.4 - Chronic kidney disease, stage 4 (severe) Category: Medical Plan We review all the findings and given all of the abnormalities on the barium swallow including what appears to be gastroparesis I think the trial of Reglan is in order. I explained to him all of the findings and why this medication would be helpful and he is agreeable. We have a gastric emptying study ordered and he was instructed not to take the medication prior to this study but I would like it to confirm that this is actually the problem. The EGD is scheduled for December 28. He continues on lansoprazole 30 mg twice a day, famotidine for breakthrough, and loperamide for occasional breakthrough diarrhea. Return office visit in 4 weeks to evaluate his response to the Reglan Medications: New metoclopramide HCl (Reglan) 5 mg PO QIDACHS 120 tabs 6RF lansoprazole Pt with severe renal disease needs this medicine as it is metabolized through the liver and he has severe erosive esophagitis 30 mg PO BID 60 caps 6RF K22.10 - Ulcer of esophagus without bleeding, K29.60 - Other gastritis without bleeding, N18.4 - Chronic kidney disease, stage 4 (severe) loperamide (Imodium A-D) stopping sucralfate 4 mg (2 x 2 mg) PO QID 240 caps 6RF R19.7 - Diarrhea, unspecified Discontinued ondansetron Discontinued Reason: Doctor's Order 4 mg PO Q8H PRN 14 tabs 0RF nausea and vomiting sucralfate Discontinued Reason: Doctor's Order 2 grams (2 x 1 gram) PO BID 120 tabs 6RF R19.7 - Diarrhea, unspecified EGD SCHEDULED FOR 12/29/2023 BIOPSY GASTRIC EMPTYING STUDY TODAY'S VISIT [place] [employer] He is doing well now on the reglan! He continues on his imodium with good control of his diarrhea and on lansoprazole with good control of his GERD. He says that another provider tried to change his stomach medications and he had more severe N/V for about a month! Then another provider saw the error and put him on omeprazole (which I had tried to avoid r/t his renal disease) which helped until we were able to re establish the lansoprazole. However, with further discussion, it is very unclear exactly what he is taking because - apparently his PCP Dr. Luo went on maternity leave - He had 2 interim providers changing and re prescribing his PPI's. They never called our office!! My staff is checking on his medication list. After calling the pharmacy it appears that he is now on omeprazole 20 mg twice a day, Imodium, and Reglan. This seems very strange to me given his renal status but I guess I will wait and see if the cell biologist objects. Hopefully, they are aware of his medications. ROV 6 mos. PFS Medical History (Updated 11/09/24 @ 14:02 by CJ Mann) Nausea and vomiting Chronic kidney disease, stage 4 (severe) Atherosclerotic cardiovascular disease Pre-op examination Syncope and collapse BEATRIZ (acute kidney injury) Candidiasis of mouth Candidiasis of the esophagus Gastroenteritis Diabetic infection of right foot Amputation of fifth toe of right foot History of osteomyelitis Chronic hyperglycemia Diabetes HTN (hypertension) Surgical History History of cholecystectomy History of right below knee amputation Renal transplant recipient H/O arteriovenostomy for renal dialysis Family History Other Diabetes No family history of coronary artery disease Social History Household Members: None Housing: House Do you presently have visiting nurse or other home services: Yes ([employer]) Alcohol intake: never Comment: patient refusing high fall risk precautions Patient Tobacco Use Status: Never used Tobacco e-Cigarette/Vaping Use: Never Used Advance Directives Date on File: 01/21/22 service: No Current occupational status: disabled Review of Systems Const Denies fatigue, Denies fever(s), Denies night sweats, Denies poor appetite and Denies weight loss ENT Reports Normal hearing present, Denies dental pain, Denies dysphagia, Denies hearing loss, Denies mouth pain, Denies odynophagia, Denies throat swelling, Denies tongue swelling and Reports other (Dentition adequate) Card Reports no additional complaints Resp Reports no additional complaints GI Details: Denies abdominal pain, Denies melena, Denies bloating, Denies hematochezia, Denies constipation, Denies GI cramping, Denies dysphagia, Denies excessive flatus, Reports early satiety, Reports heartburn, Denies diarrhea, Denies nausea, Denies odynophagia, Denies vomiting and Denies hematemesis Musc Reports abnormal gait and Reports deformity Skin/Breast Denies pruritus, Denies lesions, Denies rash and Denies jaundice Neuro Reports Normal hearing present, Denies Abnormal speech present and Reports abnormal gait Endo Denies fatigue Aller/Immun Denies throat swelling and Denies tongue swelling Physical Exam Vital Signs: Last Vital Signs Pulse 78 11/09/24 13:55 BP 124/56 L 11/09/24 13:55 Pulse Ox 100 11/09/24 13:55 Oxygen Delivery Method Room Air 11/09/24 13:55 BMI result Body Mass Index 31.0 Const General: cooperative, no acute distress, well developed and well groomed Nutritional Appearance: well nourished and obese Orientation/consciousness: oriented to person, oriented to place and oriented to time Limitations: language barrier, ambulation with cane and other limitations (Memory and educational barriers) HEENT Head: Yes normocephalic and Yes atraumatic Eyes General: appearance normal, both eyes and all related structures Pupils: Equal, round and reactive pupils present Neck Neck: Yes normal visual inspection and Yes no lymphadenopathy Thyroid: Thyroid normal Resp Effort & Inspection: normal respiratory effort and able to speak in complete sentences Auscultation: clear to auscultation bilaterally Cardio Rate: regular rate Rhythm: regular rhythm Heart sounds: Normal, physiologic split S2 sound present Peripheral pulses: radial pulses present and posterior tibial pulses present GI Inspection: No distended, No Abdominal panniculus present and Yes obesity Palpation (GI): Soft to palpation, nontender, no guarding, not rigid and No hepatosplenomegaly present Percussion: Yes normal to percussion Auscultation: normal bowel sounds Rectal Exam - Male: Yes deferred Skin General skin exam: no rashes or lesions noted, turgor normal, skin not dry, no jaundice, No spider nevi and no striae Rashes: no rashes Nails: normal Neuro General: oriented to person, oriented to place and oriented to time Cranial nerves: Yes Equal, round and reactive pupils present and Yes Normal hearing present Speech: No Abnormal speech present Extrem Other: Limb prosthesis right lower extremity General: No clubbing, No cyanosis and No edema Psych Appearance: grossly normal and well kempt Mental Status: mental status grossly normal Speech and movement: Normal speech and movement present Affect: normal affect Attitude: cooperative Thought process: not confabulating and Impoverished thought process present Thought content: Normal thought content present Insight: Limited insight present (Psych) Judgement: Limited judgement present (Psych) Assessment & Plan Assessment & Plan (1) Erosive gastritis: Code(s): K29.60 - Other gastritis without bleeding Category: Medical (2) Erosive esophagitis: Code(s): K22.10 - Ulcer of esophagus without bleeding Category: Medical (3) Diarrhea: Code(s): R19.7 - Diarrhea, unspecified Category: Medical (4) Nausea and vomiting: Code(s): R11.2 - Nausea with vomiting, unspecified Category: Medical Plan [place] [employer] He is doing well now on the reglan! He continues on his imodium with good control of his diarrhea and on lansoprazole with good control of his GERD. He says that another provider tried to change his stomach medications and he had more severe N/V for about a month! Then another provider saw the error and put him on omeprazole (which I had tried to avoid r/t his renal disease) which helped until we were able to re establish the lansoprazole. However, with further discussion, it is very unclear exactly what he is taking because - apparently his PCP Dr. Luo went on maternity leave - He had 2 interim providers changing and re prescribing his PPI's. They never called our office!! My staff is checking on his medication list. After calling the pharmacy it appears that he is now on omeprazole 20 mg twice a day, Imodium, and Reglan. This seems very strange to me given his renal status but I guess I will wait and see if the cell biologist objects. Hopefully, they are aware of his medications. ROV 6 mos. Orders: Orders NM gastric emptying study Today R11.2 - Nausea with vomiting, unspecified Medications: New omeprazole 20 mg PO BID 60 caps 6RF Refilled metoclopramide HCl (Reglan) 5 mg PO QIDACHS 120 tabs 6RF Coding Level of Care Code Est Pt Level 3 (18660) Diagnoses Erosive gastritis K29.60 Erosive esophagitis K22.10 Diarrhea R19.7 Nausea and vomiting R11.2
[2024-11-09 13:55] VITALS: BP 124/56; PULSE 78; O2SAT 100; BMI 31.0
== END 2024-11-09 14:20 | disposition home or self-care (01) ==
PROVIDERS: PCP Family Medicine; Visit Provider Nurse Practitioner
DX: K29.60 Other gastritis without bleeding (principal); K22.10 Ulcer of esophagus without bleeding; R19.7 Diarrhea, unspecified; R11.2 Nausea with vomiting, unspecified
CPT/HCPCS: 99213

== ENCOUNTER → 2024-11-09 12:51 | Outpatient (BNVA) | payer MEDICAID, SELFPAY | PROVIDERS: PCP Family Medicine; Visit Provider Nurse Practitioner | DX: K21.9 Gastro-esophageal reflux disease without esophagitis (principal); K58.0 Irritable bowel syndrome with diarrhea; K22.10 Ulcer of esophagus without bleeding; K29.60 Other gastritis without bleeding; N18.4 Chronic kidney disease, stage 4 (severe); R11.2 Nausea with vomiting, unspecified | CPT/HCPCS: 99212 ==

== ENCOUNTER 2024-12-01 12:15 | Outpatient (AMB) | payer MEDICAID, SELFPAY ==
[2024-12-01 12:39] VITALS: BP 163/78; PULSE 87; RESP 16; O2SAT 99; BMI 31.5
--- NOTE | 2024-12-01 12:39 | MHC.OFFVIS ---
Vital Signs 12/01/24 12:39 Height 5 ft 3 in Weight 178 lb BMI 31.5 BP 163/78 H Blood Pressure Location Rt brachial Position Sitting Respiration 16 Pulse 87 Pulse Source Pulse Oximeter Pulse Oximetry (%) 99 Oxygen Delivery Method Room Air Intake Visit Reasons: Phantom Limb Syndrome w/ Pain Wood Tool Maker Required: Yes Wood Tool Maker Name: Jose De Jesus [id number] Accompanied by: Self / Same As Patient Allergies hydromorphone [From DILAUDID] Allergy (Mild, Verified 12/01/24 12:47) ITCHINESS diphenhydramine [From BENADRYL] Allergy (Unknown, Verified 12/01/24 12:47) UNK regadenoson [From Lexiscan] Adverse Reaction (Mild, Verified 12/01/24 12:47) Itching HPI Comments Details: The patient is a 59-year-old male presenting with chronic pain in both shoulders, though right significantly worse than the left. He has experienced this for the last 5 to 6 years without recalling any specific trigger. The pain persists throughout the day, intensifying during attempts at sleep or when lifting his arm, and overall movement exacerbates it at times. A prior attempt to relieve the shoulder pain with a steroid injection gave no benefit, and pain limits his ability to lift or move the shoulder. A history of a kidney transplant approximately 10 years ago is noted, with current enrollment on a transplant list for a second kidney. The patient mentioned not being on dialysis and expressed concerns about inadequate pain relief medication. - Onset: Approximately 5-6 years ago - Quality: Persistent and bothersome - Primary Location: Shoulders - Radiation: Not specified - Aggravating Factors: Movement, sleep posture, lifting arm - Alleviating Factors: None noted - Interference: Limits arm movement and affects sleep quality - Affect: Pain is significantly affecting his ability to sleep and move easily. - Analgesia: On chronic Tramadol per TOP INVENTORY CONTROL EXECUTIVE. Recent steroid injection was ineffective. Unable to take nonsteroidal anti-inflammatory medications secondary to kidney disease. - Adverse Effects: None reported. - Activities of Daily Living: Pain limits arm movement and affects daily functioning. - Aberrant Drug Related Behaviors: None reported. [facility] Medical History (Updated 12/01/24 @ 13:39 by Roxanna Padgett, CORN COOKER, SWEET PICKLE MAKER) Nausea and vomiting Chronic kidney disease, stage 4 (severe) Atherosclerotic cardiovascular disease Pre-op examination Syncope and collapse BEATRIZ (acute kidney injury) Candidiasis of mouth Candidiasis of the esophagus Gastroenteritis Diabetic infection of right foot Amputation of fifth toe of right foot History of osteomyelitis Chronic hyperglycemia Diabetes HTN (hypertension) Surgical History History of cholecystectomy History of right below knee amputation Renal transplant recipient H/O arteriovenostomy for renal dialysis Family History Other Diabetes No family history of coronary artery disease Social History Household Members: None Housing: House Do you presently have visiting nurse or 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 - Renal: End-stage renal disease; on transplant list - Other systems: Denies recent surgery. Physical Exam Vital Signs: Last Vital Signs Pulse 87 12/01/24 12:39 Resp 16 12/01/24 12:39 BP 163/78 H 12/01/24 12:39 Pulse Ox 99 12/01/24 12:39 Oxygen Delivery Method Room Air 12/01/24 12:39 BMI result Body Mass Index 31.5 General: awake, alert, oriented. Answers questions appropriately. Fully engaged in examination. Skin: warm, dry, intact HEENT: Normocephalic. Hearing intact. Cardiac: External chest normal in appearance. Respiratory: No cough, audible wheezing or stridor. Abdomen: without gross distension. MS: Right BKA, prosthetic in place. Able to transition from sit to stand unassisted. Right shoulder: Decreased range of motion. Pain with overhead reaching behind the back reach. Tenderness to palpation over AC joint. Left shoulder: Decreased range of motion. Pain with behind the back region overhead reach. Neurological: Oriented to person, place, time and situation. Thought process intact. Ambulates with the use of a cane. Psychiatric: Appropriate mood and affect. Good judgment and insight. Results Reviewed Results Reviewed: 10/2024 x-ray right shoulder COMPARISON: Comparison is made with the prior examination dated 11/02/2022. FINDINGS: Two views of the right shoulder are submitted. Osseous mineralization is normal. There is no fracture or dislocation. The glenohumeral joint is maintained. There is mild degenerative change of the AC joint with inferior osteophyte formation noted. The soft tissues are unremarkable. IMPRESSION: Mild degenerative change of the AC joint. 10/2024 x-ray left shoulder FINDINGS: Two views of the left shoulder are submitted. Osseous mineralization is normal. There is no fracture or dislocation. The glenohumeral joint is maintained. There is mild degenerative change of the AC joint with inferior osteophyte formation. Vascular stent is seen in the upper arm. IMPRESSION: Mild degenerative change of the AC joint. Assessment & Plan Assessment & Plan (1) Left shoulder pain: Code(s): M25.512 - Pain in left shoulder Category: Medical (2) Right shoulder pain: Code(s): M25.511 - Pain in right shoulder Category: Medical Plan Physical therapy will be initiated to enhance shoulder joint function, potentially reducing the patient's pain. A repeat steroid injection will be performed with x-ray guidance to target the affected joint accurately. Follow-up with orthopedics once scheduled will provide additional insights. Kidney health is a priority; hence the avoidance of certain analgesics contraindicated in renal compromise and the deployment of alternative options like acetaminophen where appropriate will be cornerstones of his management. Continuous assessment will guide further decisions regarding pain management. I discussed with the patient the plan to initiate physical therapy focused on the shoulders to improve function and possibly relieve pain. A repeat steroid injection is scheduled with x-ray guidance, which I explained could offer more precise relief, this will be scheduled 3 months after steroid injection received at his PCP office. I advised and informed him about the potential benefits of this targeted intervention versus past unsuccessful attempts. I also communicated the importance of avoiding NSAIDs due to renal concerns and confirmed the consideration of safe pain relief options. Awareness of the scheduled orthopedic follow-up and potential re-evaluation post-interventions was discussed. The patient consented to the proposed strategies and exhibited a comprehensive understanding of the therapeutic efforts and expectations. Patient was informed and verbally consented to the use of an ambient scribe for clinic note documentation during this visit. Orders: Orders PT Evaluation and Treatment Today M25.511 - Pain in right shoulder, M25.512 - Pain in left shoulder Patient Instructions: - Attend physical therapy sessions as scheduled for shoulder pain. - Await a call to schedule the x-ray guided injection for pain management. - Avoid NSAIDs like ibuprofen or naproxen due to kidney concerns. - Expect follow-up from orthopedics once the appointment is scheduled. - Contact the office if the shoulder pain worsens or presents new symptoms. - Stay informed about kidney transplant status and continue regular kidney health monitoring. Coding Level of Care Code New Pt Level 4 (43537) Complex EM visit Add On G2211 Diagnoses Left shoulder pain M25.512 Right shoulder pain M25.511
--- OUTSIDE RECORDS SUMMARY | 2024-12-01 12:56 | XMS_ITS | Encounter Summary ---
Author Organization [employer] Address [address] [facility] 7[address] [place] [address] Care Team Providers Care Telesales Advisor Name Role Phone Zoraida Luo MD Primary Care Provider [phone] Andrea Zarate RN Unavailable [phone] Andrea Zarate RN Unavailable [phone] Sarah Medina PharmD Unavailable [phone] Reason for Visit * Reason Comments Med Refill Encounter Details Date Type Department Care Team (Late st Contact Info) Description 05/24/2023 Refill [facility] MED & PEDS [address] [place] [address] Zoraida Luo MD [address] [place] [address] Other specified diabetes mellitus with hyperglycemia, with long-term current use of insulin ([facility]) Social History Tobacco Use Types Packs/Day [...] Care Team (Late st Contact Info) Description 12/06/2024 10:00 AM EDT Medication Management [facility] MED & PEDS [address] [place] [address] Sarah Medina PharmD [address] [place] [address] documented as of this encounter Goals Goal [...] hyperglycemia, with long-term current use of insulin ([facility]) documented in this encounter Additional Health Concerns Assessment Noted Time PHQ-9 Depression Total Score: 3 07/16/19 23 2:48 PM EST documented as of this encounter Care Teams Telesales Advisor Relationship Specialty Start Date End Date Zoraida Luo MD [address] [place] [address] PCP - General Family Medicine 05/02/21 Andrea Zarate RN [address] [place] [address] Racehorse TrainerPower Truck Driver 03/22/24 08/28/24 Andrea Zarate, RN [address] [place] [address] Racehorse TrainerPower Truck Driver 08/25/24 Sarah Medina, YumikoD [address] [place] [id number] Pharmacist Internal Medicine 10/26/24 Ana Chávez Slat Grader 07/15/23 [facility] Housing Tire Fabric Impregnating Range Tender 09/01/23 [facility] 08/25/23 documented as of this encounter
== END 2024-12-01 13:19 | disposition home or self-care (01) ==
PROVIDERS: PCP Family Medicine; Visit Provider Registered Nurse Emergency
DX: M25.512 Pain in left shoulder (principal); M25.511 Pain in right shoulder
CPT/HCPCS: 99204

== ENCOUNTER → 2024-12-01 12:15 | Outpatient (BNVA) | payer MEDICAID, SELFPAY | PROVIDERS: PCP Family Medicine; Visit Provider Registered Nurse Emergency | DX: M25.512 Pain in left shoulder (principal); M25.511 Pain in right shoulder | CPT/HCPCS: 99212 ==

== ENCOUNTER 2025-02-05 15:28 | Emergency (ER) | payer MEDICAID, SELFPAY ==
--- NOTE | 2025-02-05 | ECG_ITS ---
Test Reason : CP Blood Pressure : */* mmHG Vent. Rate : 70 BPM Atrial Rate : 70 BPM P-R Int : 156 ms QRS Dur : 96 ms QT Int : 398 ms P-R-T Axes : 1 -39 87 degrees QTcB Int : 429 ms Normal sinus rhythm Left axis deviation Nonspecific T wave abnormality Abnormal ECG When compared with ECG of 21-May-2023 15:10, T wave inversion more evident in Lateral leads QT has shortened Referred By: Generic ED Physician Electronically Signed By: ILDEFONSO LEIJA MD
--- NOTE | ~2025-02-05 | XR_ITS ---
EXAMINATION: XR CHEST CLINICAL INFORMATION: L sided chest pain COMPARISON: 11/02/2022. TECHNIQUE: 2 views of the chest were obtained. FINDINGS: The cardiac, hilar, and mediastinal contours are normal. The lungs are clear bilaterally. There is no pneumothorax or pleural effusion. There is no focal osseous or soft tissue abnormality. There are cholecystectomy clips present. XR/XR chest 2V IMPRESSION: No active pulmonary disease. Electronically signed by: Oswald Hines MD 02/05/2025 04:28 PM EDT
[2025-02-05 15:52] VITALS: BP 110/53; PULSE 71; RESP 16; TEMP 36.7; O2SAT 96; BMI 31.1
--- NOTE | 2025-02-05 15:56 | ED.CHESTPAIN ---
HPI - Chest Pain General Chief Complaint: Chest Pain Stated Complaint: Cp, Sob, weakness Related Data Home Medications ?Medication ?Instructions ?Recorded ?Confirmed albuterol sulfate 2.5 mg/3 mL 1 amp inhalation TID PRN 08/26/21 05/21/23 (0.083 %) solution for nebulization Respiratory Distress albuterol sulfate 90 mcg/actuation 2 puff PO Q4H PRN wheezing 08/26/21 05/21/23 aerosol inhaler (ProAir HFA) aspirin 81 mg tablet,delayed 81 mg PO DAILY 08/26/21 05/21/23 release atorvastatin 10 mg tablet 10 mg PO DAILY 08/26/21 05/21/23 calcitriol 0.5 mcg capsule 0.5 mcg PO DAILY 08/26/21 05/21/23 insulin lispro 100 unit/mL 6 unit subcut TIDWM 08/26/21 05/21/23 subcutaneous pen (Humalog KwikPen (U-100) Insulin) tramadol 50 mg tablet 50 mg PO Q6H PRN moderate pain 08/26/21 05/21/23 hydroxyzine HCl 10 mg tablet 10 mg PO BID 09/24/22 05/21/23 trazodone 50 mg tablet 25 mg PO BEDTIME 09/24/22 05/21/23 acetaminophen 500 mg tablet 500 mg PO Q8H PRN Pain 10/20/22 05/21/23 amlodipine 5 mg tablet 5 mg PO QAM 11/09/24 blood sugar diagnostic (FreeStyle #10 ea 11/09/24 Lite Strips) cholecalciferol (vitamin D3) 50 50 mcg PO QAM 11/09/24 mcg (2,000 unit) capsule cilostazol 50 mg tablet 50 mg PO BID 11/09/24 dulaglutide 4.5 mg/0.5 mL mg subcut QWEEK 11/09/24 subcutaneous pen injector (Trulicity) epoetin jyotsna 20,000 unit/mL 20,000 unit subcut QWEEK 11/09/24 injection solution (Epogen) furosemide 40 mg tablet 40 mg PO DAILY PRN 11/09/24 gabapentin 300 mg capsule 300 mg PO BEDTIME 11/09/24 insulin degludec 100 unit/mL (3 26 unit subcut BEDTIME 11/09/24 mL) subcutaneous pen (Tresiba FlexTouch U-100 insulin) metoprolol succinate 50 mg 50 mg PO QAM 11/09/24 tablet,extended release 24 hr psyllium husk 3.4 gram oral powder 1 packet PO DAILY 11/09/24 packet (Metamucil Fiber (aspartame)) tamsulosin 0.4 mg capsule 0.8 mg PO BEDTIME 11/09/24 Previous Rx's ?Medication ?Instructions ?Recorded sodium bicarbonate 650 mg tablet 650 mg PO TID #90 tabs 12/24/22 lidocaine 5 % topical patch 1 patch topical DAILY #30 ea 04/04/23 loperamide 2 mg capsule (Imodium 4 mg (2 x 2 mg) PO QID #240 caps 10/06/23 A-D) metoclopramide HCl 5 mg tablet 5 mg PO QIDACHS #120 tabs 11/09/24 (Reglan) omeprazole 20 mg capsule,delayed 20 mg PO BID #60 caps 11/09/24 release Allergies Allergy/AdvReac Type Severity Reaction Status Date / Time hydromorphone (From DILAUDID) Allergy Mild ITCHINESS Verified 02/05/25 16:00 diphenhydramine (From Allergy Unknown UNK Verified 02/05/25 16:00 BENADRYL) regadenoson (From Lexiscan) AdvReac Mild Itching Verified 02/05/25 16:00 [facility] Past Medical History Medical History (Updated 02/07/25 @ 13:29 by ADONIS Sandoval) Nausea and vomiting Chronic kidney disease, stage 4 (severe) Atherosclerotic cardiovascular disease Pre-op examination Syncope and collapse BEATRIZ (acute kidney injury) Candidiasis of mouth Candidiasis of the esophagus Gastroenteritis Diabetic infection of right foot Amputation of fifth toe of right foot History of osteomyelitis Chronic hyperglycemia Diabetes HTN (hypertension) Surgical History History of cholecystectomy History of right below knee amputation Renal transplant recipient H/O arteriovenostomy for renal dialysis Family History Family History Other Diabetes No family history of coronary artery disease Social History Social History Household Members: None Housing: House Do you presently have visiting nurse or other home services: Yes ([employer]) Alcohol intake: never Comment: patient refusing high fall risk precautions Patient Tobacco Use Status: Never used Tobacco e-Cigarette/Vaping Use: Never Used Advance Directives: Yes Advance Directives on File: Yes Advance Directives Date on File: 01/21/22 service: No Current occupational status: disabled Physical Exam Vital Signs: Vital Signs: Last Vital Signs Temp 98.1 F 02/05/25 15:52 Pulse 71 02/05/25 15:52 Resp 16 02/05/25 15:52 BP 110/53 L 02/05/25 15:52 Pulse Ox 96 02/05/25 15:52 O2 Del Method Room Air 02/05/25 15:52 BMI result Body Mass Index 31.1 Course Course Course Narrative: This is a Rapid Medical Examination (RME) performed by Medina Daugherty PA-C in triage. Full HPI, ROS, assessment and treatment plan per primary provider in the Main ED. Hx: 59 yo M hx HTN, DM, gastritis, stage 4 CKD s/p renal transplant 10 yrs ago here for eval of L sided chest pain and sob on exertion since yesterday. reports night sweats and decreased PO intake. reports headaches. reports inc swelling to LLE - he is s/p right BKA. no known sick contacts. PE/vitals: 2+ pitting edema to RLE. Plan: labs ekg cxr Reevaluation(s) Reevaluation #1: Patient left the emergency department before myself or any of the other clinicians could review or explain physical exam findings, test results, need or lack there of for additional testing, treatment options, or a treatment plan. Medical Decision Making Lab Data 02/05/25 16:48 02/05/25 16:48 Labs: Lab Results 02/05/25 Range/Units 16:48 WBC 4.9 (4.8-10.8) X10*3/uL RBC 2.78 L (4.60-5.80) X10*6/uL Hgb 8.0 L (14.0-18.0) g/dl Hct 24.3 L (42.0-52.0) % MCV 87.4 (80.0-98.0) fL MCH 28.8 (27.0-33.0) pg MCHC 32.9 (31.0-36.0) g/dl RDW 14.1 (11.0-16.0) % Plt Count 230 D (160-400) X10*3/uL MPV 10.4 (9.4-12.4) fL Immature Gran % (Auto) 0.4 (0.0-0.4) % Neut % (Auto) 69.9 (45-73) % Lymph % (Auto) 17.0 L (20-40) % Burnett % (Auto) 9.2 (2-11) % Eos % (Auto) 2.7 (0-4) % Baso % (Auto) 0.8 (0-2) % Lymph # (Auto) 0.8 L (1.2-4.9) X10*3/uL Burnett # (Auto) 0.5 (0.1-1.2) X10*3/uL Eos # (Auto) 0.1 (0.0-0.4) X10*3/uL Baso # (Auto) 0.0 (0.0-0.2) X10*3/uL Abs Immat Gran (auto) 0.02 (0.00-0.03) X10*3/uL Absolute Neuts (auto) 3.4 (2.0-8.3) x10*3/uL Absolute Nucleated RBC 0.000 (0.0-0.012) X10*3/uL Nucleated RBC % (auto) 0.0 (0.0-0.2) /100WBC Sodium 131 L (135-145) mmol/L Potassium 5.3 H (3.3-5.1) mmol/L Chloride 106 (96-108) mmol/L Carbon Dioxide 17 L (22-29) mmol/L Anion Gap 13 (12-20) BUN 31 H (9-16) mg/dL Creatinine 3.20 H (0.5-1.4) mg/dL Estim Creat Clear Calc 24.0 Estimated GFR 20 Random Glucose 405 H* (60-115) mg/dL Calcium 7.8 L D (8.4-10.2) mg/dL Magnesium 1.7 (1.6-2.6) mg/dL Total Bilirubin 0.3 (0.0-1.0) mg/dL AST 16 (5-37) U/L ALT 8 (0-40) U/L Alkaline Phosphatase 86 (39-117) U/L Troponin I High Sens 13.1 (<3.5-35.0) ng/L Total Protein 6.5 (6.5-8.0) g/dL Albumin 3.9 (3.5-5.0) g/dL Lipase 15 (8-78) U/L Influenza Type A (PCR) NEGATIVE (Negative) Influenza Type B (PCR) NEGATIVE (Negative) RSV RNA Qual (PCR) NEGATIVE (Negative) SARS-CoV-2 RNA (RT-PCR) NEGATIVE (Negative) Discharge Plan Discharge Clinical Impression: Generalized weakness Patient Disposition: Left W/O Completing Treatment Prescriptions: No Action albuterol sulfate 2.5 mg /3 mL (0.083 %) solution for nebulization 1 amp inhalation TID PRN (Reason: Respiratory Distress) atorvastatin 10 mg tablet 10 mg PO DAILY aspirin 81 mg tablet,delayed release (DR/EC) 81 mg PO DAILY tramadol 50 mg tablet 50 mg PO Q6H PRN (Reason: moderate pain) calcitriol 0.5 mcg capsule 0.5 mcg PO DAILY albuterol sulfate [ProAir HFA] 90 mcg/actuation HFA aerosol inhaler 2 puff PO Q4H PRN (Reason: wheezing) insulin lispro [Humalog KwikPen Insulin] 100 unit/mL insulin pen 6 unit subcut TIDWM sodium bicarbonate 650 mg Tablet 650 mg PO TID Qty: 90 0RF lidocaine 5 % adhesive patch,medicated 1 patch topical DAILY Qty: 30 0RF Rx Instructions: leave on most painful area for up to 12 hrs acetaminophen 500 mg Tablet 500 mg PO Q8H PRN (Reason: Pain) hydroxyzine HCl 10 mg tablet 10 mg PO BID trazodone 50 mg tablet 25 mg PO BEDTIME loperamide [Imodium A-D] 2 mg capsule 4 mg PO QID Qty: 240 6RF Rx Instructions: stopping sucralfate insulin degludec [Tresiba FlexTouch U-100] 100 unit/mL (3 mL) insulin pen 26 unit subcut BEDTIME (DME) FreeStyle Lite Strips Strip See Rx Instructions .ROUTE .MEDSUPPLY Qty: 10 Rx Instructions: As directed metoprolol succinate 50 mg tablet extended release 24 hr 50 mg PO QAM cilostazol 50 mg tablet 50 mg PO BID Trulicity 4.5 mg/0.5 mL pen injector subcut QWEEK furosemide 40 mg tablet 40 mg PO DAILY PRN tamsulosin 0.4 mg capsule 0.8 mg PO BEDTIME cholecalciferol (vitamin D3) 50 mcg (2,000 unit) capsule 50 mcg PO QAM amlodipine 5 mg tablet 5 mg PO QAM gabapentin 300 mg capsule 300 mg PO BEDTIME Epogen 20,000 unit/mL solution 20,000 unit subcut QWEEK Metamucil Fiber (aspartame) 3.4 gram powder in packet 1 packet PO DAILY metoclopramide HCl [Reglan] 5 mg tablet 5 mg PO QIDACHS Qty: 120 6RF omeprazole 20 mg capsule,delayed release(DR/EC) 20 mg PO BID Qty: 60 6RF Discharge Date/Time: 02/05/25 21:04
[2025-02-05 16:53] LABS: MANUAL DIFF FLAG NO
[2025-02-05 16:57] LABS: Hematocrit 24.3 % (42.0-52.0); Hemoglobin 8.0 g/dl (14.0-18.0); Imm Gran Abs Auto 0.02 X10*3/uL (0.00-0.03); Imm Gran Pct Auto 0.4 % (0.0-0.4); Lymphocytes Absolute Auto 0.8 X10*3/uL (1.2-4.9); Mean Corpuscular HGB Conc 32.9 g/dl (31.0-36.0); Mean Corpuscular Hemoglobin 28.8 pg (27.0-33.0); Mean Corpuscular Volume 87.4 fL (80.0-98.0); NRBC Abs Auto 0.000 X10*3/uL (0.0-0.012); NRBC Pct Auto 0.0 /100WBC (0.0-0.2); Platelet Count 230 X10*3/uL (160-400); Red Blood Count 2.78 X10*6/uL (4.60-5.80); White Blood Count 4.9 X10*3/uL (4.8-10.8)
[2025-02-05 17:12] LABS: Alanine Aminotransferase 8 U/L (0-40); Albumin Level 3.9 g/dL (3.5-5.0); Alkaline Phosphatase 86 U/L (39-117); Anion Gap 13 (12-20); Aspartate Amino Transferase 16 U/L (5-37); Blood Urea Nitrogen 31 mg/dL (9-16); Calcium 7.8 mg/dL (8.4-10.2); Carbon Dioxide 17 mmol/L (22-29); Chloride 106 mmol/L (96-108); Creatinine Clr Calc Pharmacy 24.0; Estimated Glomerular Filt Rate 20; Lipase 15 U/L (8-78); Magnesium 1.7 mg/dL (1.6-2.6); Potassium 5.3 mmol/L (3.3-5.1); Sodium 131 mmol/L (135-145); Total Protein 6.5 g/dL (6.5-8.0)
[2025-02-05 17:15] LABS: Troponin-I High Sensitivity 13.1 ng/L (<3.5-35.0)
[2025-02-05 17:33] LABS: Resp Syncy Virus RNA Qual PCR NEGATIVE (Negative); SARS COV2 PCR INHOUSE NEGATIVE (Negative)
--- OUTSIDE RECORDS SUMMARY | 2025-02-05 20:57 | XMS_ITS | Clinical Summary ---
Author Organization [facility] Address [address] [facility] [address] [place] [phone] Phone Care Team Providers Care Set Key Driver Name Role Phone Unavailable Primary Care Provider Unavailabl e Social History Tobacco Use Types Packs/Day Years Used Date Smoking Tobacco: Never Assessed Education Answer Date Recorded Are you interested in more education? Not on jenny e 10/17/2022 Are you concerned about learning? Not on file 10/17/2022 No 10/17/2022 No 10/17/2022 Digital Access Answer Date Recorded No 11/17/2022 No 11/17/2022 Reliable internet access at home? Not on file 11/17/2022 Device with a working camera? Not on file Sex and Gender Information Value Date Recorded Sex Assigned at Not on file Legal Sex Male 3:43 PM EDT Gender Identity Not on file Sexual Orientation Not on file Plan of Treatment Not on file Medical Devices Not on file Additional Source Comments The information contained in this document represents components of the legal health record. It is not the complete legal health record.[facility]
--- OUTSIDE RECORDS SUMMARY | 2025-02-05 20:57 | XMS_ITS ---
Author Name [facility] Organization Unknown Problems Problem Status Onset Date Problem Type Date of Resoluti on Source Complication of transplanted kidney, unspecified complication [facility] En[facility] Encounter Type Encounter Reason Primary Diagnosis Location Date Ambulatory Unspecified complication of kidney transplant Unspecified complication of kidney transplant [facility] 11/22/2023 Ambulatory Unspecified complication of kidney transplant Unspecified complication of kidney transplant [facility] 10/01/2023 Ambulatory Unspecified complication of kidney transplant Unspecified complication of kidney transplant [facility] 06/29/2023 Ambulatory Unspecified complication of kidney transplant [facility] 08/26/2022 Care Team Organization Name Specialty Phone Email Start Date End Da john [facility] PCP,No Primary Care 08/26/2022 09/06/2024 [facility] NO PCP Primary Care 03/18/2021 03/18/2021
--- OUTSIDE RECORDS SUMMARY | 2025-02-05 20:57 | XMS_ITS | Clinical Summary ---
Author Organization [facility] Address [address] [place] [address] Care Team Providers Care Food Trades Assistants Name Role Phone Pcp, No Primary Care [...] 1965 4 [address] FIG[address]OA [address] [place] [id number] MEDICAID OUT OF STATE [facility] Care Teams Food Trades Assistants Relationship Specialty Start Date End Date Pcp, No [address] [place] [address] PCP - General 03/15/20
== END 2025-02-05 21:04 | disposition left against medical advice (07) ==
PROVIDERS: Physician Assistant Medical; Emergency Provider Emergency Medicine
DX: R42 Dizziness and giddiness (principal); Z53.21 Procedure and treatment not carried out due to patient leaving prior to being seen by health care provider
CPT/HCPCS: 71046; 80053; 83690; 83735; 84484; 85025; 87637; 93005; 99281; 99283

== ENCOUNTER → 2025-02-05 15:33 | Outpatient (BNV) | payer MEDICAID, SELFPAY | PROVIDERS: Emergency Provider Emergency Medicine; Visit Provider Internal Medicine Cardiovascular Disease | DX: R94.31 Abnormal electrocardiogram [ECG] [EKG] (principal); R07.9 Chest pain, unspecified | CPT/HCPCS: 93010 ==

== ENCOUNTER → 2025-02-05 15:58 | Outpatient (BNV) | payer MEDICAID, SELFPAY | PROVIDERS: Visit Provider Radiology Diagnostic Radiology | DX: R07.89 Other chest pain (principal) | CPT/HCPCS: 71046 ==

== ENCOUNTER → 2025-05-11 13:41 | Outpatient (REF) | payer MEDICAID, SELFPAY ==
--- NOTE | 2025-05-11 13:58 | CA_ITS ---
Transthoracic Echocardiogram Patient (Last, First, Middle): Tito Sheriff O Gender: M Date of : 1965 Age: 59 Procedure Date: 05/11/2025 Procedure Type: Transthoracic Echocardiogram Location: OP Height: 160. cm Weight: 77.11 kg BSA: 1.80 m2 Heart Rate: 70 bpm BP: 120 / 70 mmHg Hand Rounder: KAVIN Referring MD: Samuel Fam MD Symptoms: KIDNEY TRANSPLANT, LEFT VENTRICULAR FAILURE Study Quality: Adequate ECG Rhythm: Sinus Conclusions: - The left ventricular systolic function is normal. The calculated ejection fraction is 68% by biplane method. - There is moderately increased left ventricular wall thickness. - No obvious valvular pathology seen on this study. - There is a small pericardial effusion. Findings Left Ventricle Normal left ventricular cavity size. There is moderately increased left ventricular wall thickness. The left ventricular systolic function is normal. The calculated ejection fraction is 68% by biplane method. There is no evidence of regional wall motion abnormalities. Diastolic function is normal for age. Right Ventricle Normal right ventricular cavity size and systolic function. Atria The left atrium is mildly dilated. The right atrium is normal in size. Aortic Valve There is a normal trileaflet aortic valve. There is mild calcification of the aortic valve. There is no aortic valve stenosis. There is trace (trivial) aortic valve regurgitation. Mitral Valve There is mild mitral annular calcification. There is trace mitral valve regurgitation. There is no mitral valve stenosis. Pulmonic Valve The pulmonic valve is likely normal. Tricuspid Valve There is mild tricuspid valve regurgitation. There is no evidence of pulmonary hypertension. Great Vessels The asc aorta and aortic arch are normal in size. Small plaque is seen in the sino tubular ridge. Venous The inferior vena cava is normal in size and collapses greater than 50% with inspiration. Pericardium/Pleural There is a small pericardial effusion. Prior Study Comparison No significant change compared to prior study dated: 09/29/2022. Recommendations, Care & Conclusions No obvious valvular pathology seen on this study. Measurements 2D Linear Measurements IVSd: 1.45 0.6-0.9/0.6-1.0 cm LVIDd: 3.98 3.9-5.3/4.2-5.9 cm LVIDd Index: 2.21 2.4-3.2/2.2-3.1 cm/m2 LVIDs: 2.45 2.0-3.6 cm LVPWd: 1.36 0.7-1.1 cm LA Diam: 3.10 2.7-3.8/3.0-4.0 cm LAIDs Index: 1.72 1.5-2.3 cm/m2 LV Mass: 260.00 67-162/88-224 g LV Mass Index: 144.45 43-95/49-115 g/m2 LVOT Diam: 2.20 3.0+(-)1.3 cm 2D Systolic Function EF 4C: 69.80 >55% EF 2C: 66.20 >55% EF BiP: 67.80 >55% Mitral Valve MV Pk E: 0.80 MV PK A: 0.66 MV Decel Time: 256.00 E/A: 1.20 E'Lateral: 7.83 E'Medial: 5.55 E/E' Med: 14.40 E/E' Lat: 10.20 PHT: 75.00 MVA PHT: 2.93 Decel [place]: 3.11 Aortic Valve AoV Pk Pierce: 1.91 AoV Mn Pierce: 1.23 AoV VTI: 0.38 AoV Pk Grad: 15.00 Aov Mn Grad: 7.00 YUMIKO Cont.VTI: 2.42 LVOT LVOT Pk Pierce: 1.02 LVOT Mn Pierce: 0.74 LVOT VTI: 0.24 LVOT Pk Grad: 4.00 LVOT Mn Grad: 2.00 LVOT Diam: 2.20 LVOT Area: 3.80 Diastolic Function MV Pk E: 0.80 MV Pk A: 0.66 E/A: 1.20 E'Medial: 5.55 E/E' Med: 14.40 E' Laterial: 7.83 E/E' Lat: 10.20 Right Ventricle TAPSE (mm): 23.90 TVS' Pierce: 17.70 Tricuspid Valve TR Pk Pierce: 2.40 TR Pk Grad: 23.00 RA Press: 3.00 RVSP: 26.00 Great Vessels Aorta Sinus of Valsalva: 3.50 2.0-3.5 cm Ao Asc: 3.20 2.1-3.4 cm Ao Arch: 2.40 Pulmonary Veins Pulm Vein S/D 1.40 Pulmonary Valve PV Pk Pierce: 1.29 Peak PV Grad: 7.00 Updated in Other Vendor System with Status of Final Maxi Villeda MD electronically signed on 05/12/2025 12:48:02 PM with status of Final
--- OUTSIDE RECORDS SUMMARY | 2025-05-11 14:13 | XMS_ITS | Encounter Summary ---
Author Organization [employer] Address [address] [facility] [address] [place] [address] Care Team Providers Care Home Health Manager Name Role Phone Zoraida Luo MD Primary Care Provider [phone] Andrea Zarate RN Unavailable [phone] Andrea Zarate RN Unavailable [phone] Sarah Medina PharmD Unavailable [phone] Ute Chatman RN Unavailable [phone] Carmen Aranda Unavailable Reason for Visit * Reason Comments Med Refill Encounter Details Date Type Department Care Team ([facility] st Contact Info) Description 05/24/[address] [facility] MED & PEDS [address] [place] [address] Zoraida Luo MD [address] [place] [address] Other specified diabetes mellitus with hyperglycemia, with long-term current use of insulin ([facility]) Social History Tobacco Use Types Packs/Day Years [...] the past 12 months, has t he [employer], gas, oil or water beneSol threatened to shut off services in your [...] Care Team (Late st Contact Info) Description 05/25/2025 9:15 AM EST Office Visit [facility] MED & PEDS [address] [place] [address] Gina Connelly MD [address] [place] [address] 06/04/2025 12:45 PM EST Office Visit [facility] ADULT DENTAL [address] [place] [address] Donny Oneill documented as of this encounter [...] hyperglycemia, with long-term current use of insulin (HCC) documented in this encounter Additional Health Concerns Assessment Noted Time PHQ-9 Depression Total Score: 3 07/16/19 23 2:48 PM EST documented as of this encounter Care Teams Home Health Manager Relationship Specialty Start Date End Date Zoraida Luo MD [address] [place] [address] PCP - General Family Medicine 05/02/21 Andrea Zarate, PATRIA [address] [place] [address] Extrusion Press SupervisorDividend Deposit Voucher Clerk 03/22/24 08/28/24 Andrea Zarate RN [address] [place] [address] Extrusion Press SupervisorDividend Deposit Voucher Clerk 08/25/24 01/11/25 Sarah Medina, YumikoD [address] [place] [address] Pharmacist Internal Medicine 10/26/24 Ute Chatman RN [address] [place] [address] Registered Nurse Family Medicine 04/16/25 Carmen Aranda 04/16/25 Ana Chávez Instructional Aide 07/15/23 [facility] Housing Data Base Administrator 09/01/23 [facility] 08/25/23 documented as of this encounter
--- OUTSIDE RECORDS SUMMARY | 2025-05-11 14:13 | XMS_ITS | Clinical Summary ---
Author Organization [employer] Address [address] [facility] [address] [place] [address] Care Team Providers Care Crotch Piece Baster Name Role Phone Zoraida Luo MD Primary Care Provider [phone] Sarah Medina PharmD Unavailable Ute Chatman RN Unavailable [phone] Carmen Aranda Unavailable Allergies Active Allergy Reactions Criticality Noted Date Comments Diphenhydramine 08/12/2020 Hydromorphone 08/12/2020 Hydromorphone Hcl Anaphylaxis High 10/02/2022 Morphine 04/16/2014 Nsaids Other reaction(s): unspecified Regadenoson Itching Low 10/06/2022 Medications * This document contains information received from the source organization and may not represent a complete record from that organization. lidocaine (Lidoderm) 5 % patch Place 1 patch on the skin at bed time. Active albuterol (2.5 MG/3ML) 0.083% nebulizer solutionIndicat ions:Mild intermittent asthma with (acute) exacerbation INHALE ONE AMPULE USING A NEBULIZER THREE TIMES DAILY NEEDED 180 mL 1 023 Active Blood Pressure kit 1 Units in the morning. 1 kit 023 Active Blood Glucose Monitoring Suppl (FreeStyle [place] Lite) w/Device kit 022 Active psyllium (Metamucil) 58.6 % packet Take 1 packet by mouth Once per day. Mix and drink with at least 8 ounces of water or juice. Active traMADol (Ultram) 50 MG tablet Take 50 mg by mouth if needed in the morning and at bedtime. Active cholecalciferol (Vitamin D-3) 50 MCG (2000 UT) capsule Take 1 capsule (50 mcg) by mouth Once per day. 120 capsule 3 Active loperamide (Imodium) 2 MG capsule TAKE ONE CAPSULE FOUR TIMES DAILY NEEDED FOR DIARRHEA 120 capsule 2 Active Epogen 70182 UNIT/ML injection Active BELATACEPT IV Infuse into a venous catheter. Active Aspirin Adult Low Strength 81 MG EC tablet TAKE ONE TABLET EVERY MORNING 90 tablet 5 Active hydrOXYzine HCl (Atarax) 10 MG tablet TAKE ONE TABLET TWICE DAILY IN THE MORNING AND AT BEDTIME 180 tablet 5 Active furosemide (Lasix) 40 MG tablet Take 40 mg by mouth if needed each day. Active traZODone (Desyrel) 50 MG tablet Take 1 tablet (50 mg) by mouth at bedtime. 90 tablet 1 Active glucose (Glutose) 40 % gel oral gel Take 15 g by mouth if needed for low blood sugar. 37.5 g 11 Active Additional Information Patient not taking.Reported on 04/25/2025 tamsulosin (Flomax) 0.4 MG 24 hr capsule TAKE 2 CAPSULES EVERY DAY AT BEDTIME 180 capsule 1 Active azaTHIOprine (Imuran) 50 MG tablet Take 2 tablets (100 mg) by mouth Once per day. 180 tablet 1 Active sodium bicarbonate 650 MG tablet TAKE TWO TABLETS THREE TIMES DAILY IN THE MORNING, EVENING AND BEDTIME Active Nutritional Supplements (Boost Glucose Control) liquid Take 1 Units by mouth 2 times daily. 26687 mL 11 Active hydrALAZINE (Apresoline) 50 MG tablet Take 50 mg by mouth 3 times daily. Active amLODIPine (Norvasc) 10 MG tablet Take 10 mg by mouth Once per day. Active torsemide (Demadex) 20 MG tablet Take 20 mg by mouth Once per day. 2025 Active atorvastatin (Lipitor) 10 MG tablet TAKE ONE TABLET EVERY MORNING 90 tablet 1 Active Pentips Generic Pen [place] 31G X 5 MM misc USE FOUR DAILY DIRECTED 100 each 5 Active Ozempic, 1 MG/DOSE, 4 MG/3ML solution pen-injector INJECT 1 MG SUBCUTANEOUSLY EVERY 7 DAYS IN THE ABDOMEN, THIGHS OR UPPER ARM. ROTATE INJECTION SITES. 3 mL 2 Active cilostazol (Pletal) 50 MG tablet TAKE ONE TABLET IN THE MORNING AND EVENING 60 tablet 5 Active metoprolol succinate XL (Toprol-XL) 50 MG 24 hr tablet TAKE ONE TABLET EVERY MORNING 90 tablet 3 Active Tresiba FlexTouch 100 UNIT/ML injection INJECT 22 UNITS SUBCUTANEOUSLY AT BEDTIME 15 mL 1 Active Continuous Glucose Sensor (FreeStyle John 2 Plus Sensor) miscIndications :Type 2 diabetes mellitus with hyperglycemia, with long-term current use of insulin ([facility]) 1 Device every 15 days. Apply 1 sensor as directed every 15 days for CGM 2 each Active Insulin Disposable Pump (Omnipod 5 Libre2 Plus G6 Pods) miscIndications :Type 2 diabetes mellitus with hyperglycemia, with long-term current use of insulin ([facility]) 1 Device every 3 (three) days. Wear daily for insulin administration. Apply a new pod every 72 hours as directed.) 10 each 11 Active Insulin Lispro 100 UNIT/ML solution Inject 0.01 mL (1 Units) as directed continuously. TO BE USED WITH OMNIPOD. 2 VIALS PER MONTH 20 mL 11 Active bacitracin 500 UNIT/GM ointment Apply topically 2 times daily. 28 g 3 Active acetaminophen (Tylenol) 325 MG tablet TAKE TWO TABLETS EVERY 6 HOURS NEEDED MILD PAIN Active omeprazole (PriLOSEC) [address] capsule TAKE ONE CAPSULE TWICE DAILY IN THE MORNING AND AT BEDTIME Active glucose blood (FREESTYLE LITE) test stripIndication s:Other specified diabetes mellitus with hyperglycemia, with long-term current use of insulin ([facility]) TEST BLOOD SUGAR 4 to 5 TIMES DAILY 100 strip 3 Active calcitriol (Rocaltrol) 0.5 MCG capsule Take 1 capsule by mouth at bed time. 2024 Discontinued(D iscontinued by another clinician) Blood Glucose Monitoring Suppl (FreeStyle Lite) w/Device kit 1 kit 4 times daily. 1 kit 024 2024 metoprolol succinate XL (Toprol-XL) 50 MG 24 hr tablet TAKE ONE TABLET EVERY MORNING 90 tablet 3 024 2024 Discontinued Acetaminophen Extra Strength 500 MG tabletIndicatio ns:Exudative tonsillitis TAKE TWO TABLETS EVERY 8 HOURS NEEDED MILD PAIN 90 tablet 025 2024 Discontinued Continuous Glucose Intensive Care Specialist (FreeStyle John 3 Powell) deviceIndicatio ns:Other specified diabetes mellitus with hyperglycemia, with long-term current use of insulin ([facility]) 1 each Once per day. Use as directed for CGM 1 each 025 2024 Discontinued(M ed list cleanup (will not trigger notification to Pharmacy)) Continuous Glucose Sensor (FreeStyle John 3 Plus Sensor) miscIndications :Other specified diabetes mellitus with hyperglycemia, with long-term current use of insulin ([facility]) 1 each every 15 days. Apply 1 every 15 days as directed for CGM 2 each 025 2024 Discontinued(M ed list cleanup (will not trigger notification to Pharmacy)) insulin degludec (Tresiba FlexTouch) 100 UNIT/ML injection Inject 22 Units under the skin at bedtime. 15 mL 1 025 2024 Discontinued insulin lispro (HumaLOG) 100 UNIT/ML injection Inject 3 units subcutaneously with a meal, up to 3 times per day 025 2024 Discontinued(M ed list cleanup (will not trigger notification to Pharmacy)) FREESTYLE LITE test stripIndication s:Other specified diabetes mellitus with hyperglycemia, with long-term current use of insulin ([facility]) TEST BLOOD SUGAR FOUR TO FIVE TIMES DAILY 100 strip 3 025 2024 Discontinued Omeprazole 20 MG tablet delayed-release Indications:Gas troesophageal reflux disease, unspecified whether esophagitis present Take 1 tablet (20 mg) by mouth 2 times daily. 180 tablet 025 2024 Discontinued Insulin Disposable Pump (Omnipod 5 Libre2 G6 Intro G5) kitIndications: Type 2 diabetes mellitus with hyperglycemia, with long-term current use of insulin ([facility]) 1 Device Once per day. Use as directed for insulin administration. One kit = 30 day supply. 1 kit 025 2024 Discontinued(M ed list cleanup (will not trigger notification to Pharmacy)) Active Problems Patient Care Coordination No te Formatting of this note migh t be different from the original. C3/CM Sierra Abel RN Problem Noted Date Diagnosed Date Moderate major depression (CMS/HCC) 05/10/2025 Anxiety about health 05/10/2025 Severe low back pain 05/04/2025 Chronic right shoulder pain 11/03/2024 Assessment & Plan (11/14/2024 10:43 AM EDT): Patient presents with arthritis in both shoulders causing significant pain. The condition has been severe enough to affect daily activities, with the patient reporting being bedridden due to pain in the past year. Physical examination reveals changes in the joints, consistent with arthritis. No edema or allergic reactions noted. Plan: - Perform corticosteroid injection in the right shoulder - Informed consent obtained for the procedure - Risks discussed: bleeding, pain, infection, rash - Patient agreed to proceed - Schedule left shoulder injection for future visit - Refer to intelligence research specialist - Expect improvement in 2-3 days post-injection - Follow up in 6 weeks Chronic left shoulder pain 11/03/2024 Primary insomnia [...] & Plan (05/11/2024 3:04 PM EST): + SAYDA, DOI # 2, unable to prescribe Paxlovid due to ESRD. Recommended supportive care. Dry gangrene (CMS/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 Chronic kidney disease, stage 4 (severe) (CMS/HC C) 12/07/2023 ESRD (end stage renal disease) 11/10/2023 Assessment & Plan (11/10/2023 1:47 PM EDT): Ordering lab work for recheck for 1 week. F/u with [facility]. C. difficile colitis 09/01/2023 Assessment & Plan [...] BKA (below knee amputation) unilateral, righ t ([facility]) 03/25/2023 Overview (03/25/2023): Right BKA performed 01/25/23 Assessment & Plan [...] feels unhappy about his allotted time for HOUSING AND RESIDENCE LIFE DIRECTOR services, reports that it is not sufficient to cover his ADLs/IADLs. He is also has been waiting for more then 4 months on a motorized wheelchair/scooter, he has not gotten to PT hence why the prescription has not been sent as it is a requirement. At this time, I contacted health care marketing manager for patient to assist with this and also placed an outside PT referral since multiple attempt to get home PT have failed. Assessment & Plan (03/23/2023 5:24 PM EDT): Patient was scheduled for f/up DM but was unable to review his cGM nor his control. Given that this time was used to call his [employer] agency and clarifying delay in receiving his [employer] GR[employer], they request a letter which was fax to their agency ([facility]- [phone]). - Calling DME specialist: he received his commode & shower chair, & walker. Reports that the shower chair is too big, encouraged patient to call [facility] at , unclear if he will make this call. Pending hospital bed and electric scooter, encouraged patient to call [facility]. Phantom limb syndrome with pain 02/26/2023 Assessment & Plan (11/14/2024 10:42 AM EDT): Per patient was recommended to follow with pain medicine due to phantom limb pain/chronic shoulder pain, etc. Assessment & Plan (05/06/2023 3:14 PM EST): Patient still presents complaints of leg pain, therefore, will be increasing Gabapentin: 100mg to 300mg. Assessment & Plan (02/26/2023 1:08 PM EDT): Advised patient about phantom limb syndrom, which can cause feeling of still having leg after amputation. Will need to address in next weeks appointment. Mobility impaired 02/26/2023 Assessment & Plan (07/30/2023 4:10 PM EST): Naio-qx-Rpkv Attestation: I certify that this patient is under my care and that I had a wqwt-pl-oybk visit encounter that meets the provider lbns-kd-kcfj encounter requirements with this patient. Diagnosis and [...] my care and that I had a wkel-ps-xvxk visit encounter that meets the provider sgzw-rc-zeev encounter requirement with this patient. Diagnosis and Reasoning for [...] the primary diagnosis related specific need for [employer]: - patient needs assessment of his [...] Assessment & Plan (02/26/2023 1:23 PM EDT): Aspe-em-Ppup Attestation: I certify that this patient is under my care and that I had a itxz-gw-mlad visit encounter that meets the provider qzrq-qj-mbfs encounter requirements with this patient. Diagnosis and [...] the primary diagnosis related specific need for HOUSING AND RESIDENCE LIFE DIRECTOR: - patient needs assessment of his ADL [...] TWI in lead aVL -pt reports saw guide dog instructor in the past--advised today to f w [...] has had extensive w/u by gastroenterology in [facility] for this chronic diarrhea. He has not [...] stress test. Will need to send to [facility] and f/u with results Mild intermittent asthma 05/19/2022 Osteomyelitis of forefoot (CMS/HCC) 05/19/2022 Diabetic foot infection 05/18/2022 Assessment & Plan (03/23/2023 3:10 PM EDT): -Recommended patient to call agency to be able to have a HOUSING AND RESIDENCE LIFE DIRECTOR assigned. Assessment & Plan (02/26/2023 1:09 PM [...] reading-reports to be following as well w quality assurance supervisor body -alarm signs and symptoms discussed w pt [...] current medications and refills as needed. Called [facility] office to try and get through to confirm appointments for Tito. F/u in one week. Diabetes mellitus 05/18/2022 [...] & Plan (03/02/2024 4:46 PM EDT): Contacted [facility] and spoke with Annette to request pt's [...] Center 09/14/2023 1:00 PM Natasha Bernard RN [facility] 10/01/2023 10:00 AM Zoraida Luo MD [facility] Labs: Glucose, HGB A1C Assessment & [...] intervention , Patient to reach out to [facility] team as needed, and Comply with medication prescribed by PCP. Acquired hypothyroidism 06/09/2016 History of renal transplant 06/28/2014 Gastroesophageal reflux disease 10/04/2013 Assessment & Plan (11/14/2024 10:40 AM EDT): Reviewed note from GI FOUNTAIN JERK. She expressed dissatisfaction that patients meds for GERD where changed w/o calling the office. She is particularly concerned of the use of omeprazole due to his renal failure, but will want to get input from renal specialist before switching back to lansoprazole. Per note, requested patient to not get med changes for his GERD w/o office input. Assessment & Plan (11/22/2023 2:10 PM EDT): Prescribing Carafate for symptoms. Assessment & Plan (07/16/2022 5:36 PM EST): Patient with chronic gastritis, at this point will add course of mylanta but encouraged patient to reach his gastroenterology team. Hypertension 05/06/2012 Assessment & Plan (11/03/2024 12:53 PM EDT): In the setting of DM and CKD, has appt on Wednesday with sales floor team member, worsening renal function. Will need to observe [...] Date Resolved Date Infection of right below kne e amputation ([facility]) 03/25/2023 03/25/2023 Chronic kidney disease 11/19/202203/02 Facial cellulitis 05/22/2022 05/22/2022 Assessment & Plan (05/22/2022 10:22 AM EST): Patient reports improvement since hospitalization but continues with some redness in his cheek. Reports completed antibiotics and has visiting nurse. At this point will send 5 day round of abx and f/u if no improvement. Stage 4 chronic kidney disease ([facility]) 11/10/2018 05/22/2022 Encounters * This document contains information received from the source organization and may not represent a complete record from that organization. Date Type Department Care Team Description 05/11/2025 Refill [facility] MED & PEDS [address] [place] [address] Zoraida Luo MD 05/10/2025 Travel 05/10/2025 Refill [facility] MED & PEDS [address] [place] [address] Zoraida Luo MD Other specified diabetes mellitus with hyperglycemia, with long-term current use of insulin ([facility]) 05/09/2025 Patient Outreach [address] [address] Zoraida Luo MD Care Coordination (C3 CM-CHW Carmen Aranda pt 1 ) 05/09/2025 Patient Outreach [facility] MED & PEDS [address] [place] [address] Zoraida Luo MD Care Management (C3CM- FOLLOW UP CALL/) 05/07/2025 Telephone [facility] MED & PEDS [address], [place] [phone] Sarah Medina, Ivis 05/04/2025 10:45 AM EST Office Visit [facility] MED & PEDS [address], [place] [phone] Zoraida Luo MD Severe low back pain (Primary Dx) 05/04/2025 Travel 05/04/2025 Patient Outreach [address] [address] Ute Chatman RN Care Management (C3CM- FOLLOW UP CALL/APPOINTMENT REMINDER/) 05/03/2025 Telephone [facility] MED & PEDS [address], [place] [phone] Zoraida Luo MD Chart Prep 05/02/2025 Patient Outreach [facility] MED & PEDS [address], [place] [phone] Zoraida Luo MD Care Management (Appointment Reminder) 05/01/2025 Telephone [facility] MED & PEDS [address] [place] [address] Zoraida Luo MD Care Coordination (APPOINTMENT REMINDER-) 04/30/2025 Telephone [facility] MED & PEDS [address], [place] [phone] Zoraida Luo MD 04/30/2025 Telephone [facility] MED & PEDS [address], [place] [phone] Zoraida Luo MD 04/30/2025 Patient Outreach [address] [address] Zoraida Luo MD Care Coordination (C3 CM-CHW Carmen Aranda telephone call outreach) 04/30/2025 Patient Outreach [facility] MED & PEDS [address] [place] [address] Zoraida Luo MD Care Management (APPOINTMENT REMINDER) 04/30/2025 Patient Outreach [address] [address] Zoraida Luo MD 04/27/2025 Patient Outreach [facility] MED & PEDS [address] [place] [address] Zoraida Luo MD Care Management (C3CM Appointment Reminder) 04/26/2025 Patient Outreach [address] [address] Zoraida Luo MD Care Coordination ([facility] Carmen Aranda) 04/26/2025 Travel 04/25/2025 Telephone [facility] MED & PEDS [address] [place] [address] Zoraida Luo MD Care Coordination 04/25/2025 Patient Outreach [facility] MED & PEDS [address] [place] [address] Zoraida Luo MD Care Management (C3- FOLLOW UP CALL/) 04/23/[address] [address] Zoraida Luo MD Durable Medical Equipment (Follow up on Electric Wheelchair order) 04/20/2025 9:15 AM EDT Office Visit [facility] MED & PEDS [address] [place] [address] Gina Connelly MD Encounter for immunization (Primary Dx); Primary hypertension; Chronic kidney disease, stage 4 (severe) (CMS/HCC) (HCC); Type 2 diabetes mellitus with stage 4 chronic kidney disease, with long-term current use of insulin (HCC); S/P BKA (below knee amputation) unilateral, right (CMS/HCC) (HCC) 04/20/2025 Telephone [facility] MED & PEDS [address] [place] [address] Zoraida Luo MD Care Coordination ([facility] PT) 04/20/2025 Travel 04/19/2025 Plan of Care Documentation [address] [address] 04/19/2025 Plan of Care Documentation [address] [address] 04/19/2025 Patient Outreach [facility] MED & PEDS [address] [place] [address] Zoraida Luo MD Care Management (C3CM COMPLEX INITIAL ASSESSMENT/ ENROLLMENT ) 04/18/2025 Patient Outreach [address] [address] Zoraida Luo MD Care Coordination (C3 CM-[facility] Carmen Aranda telephone call outreach) 04/18/2025 Telephone [facility] MED & PEDS [address] [place] [address] Sarah Medina, PharmD 04/17/2025 Telephone [facility] MED & PEDS [address] [place] [address] Sarah Medina, PharmD Prior Authorization 04/16/2025 Patient Outreach [address] [address] Zoraida Luo MD Care Coordination (C3 CM-[facility] Carmen Aranda telephone call outreach) 04/16/2025 Patient Outreach [address] [address] Zoraida Luo MD Care Coordination (C3 CM-W Carmen Aranda chart review) 04/16/2025 Patient Outreach [facility] MED & PEDS [address] [place] [address] Zoraida Luo MD Care Management (C3 -CHART REVIEW/) 04/16/2025 Patient Outreach [address] [address] Zoraida Luo MD 04/16/[address] [address] Zoraida Luo MD Care Coordination (Home Care Utilization) 04/14/2025 Refill [facility] MED & PEDS [address] [place] [address] Sarah Medina, PharmD 04/12/2025 Telephone [facility] MED & PEDS [address], [place] [phone] Sarah Medina, PharmD 04/12/2025 Travel 04/11/2025 Refill [facility] MED & PEDS [address], [place] [phone] Zoraida Luo MD 04/11/2025 Telephone [facility] MEDICINE [address] [place] [address] Zoraida Luo MD Care Coordination 04/04/2025 2:45 PM EDT Office Visit [facility] OPTOMETRY [address] [place] [address] Caity Alfaro, HARINI 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 (HCC) (Primary Dx); Combined form of age-related cataract, right eye; Presence of intraocular lens; Left cornea scar; Presbyopia 04/04/2025 Travel 03/21/2025 Telephone [facility] MEDICINE [address] [place] [address] Zoraida Luo MD 03/15/2025 Telephone [facility] MED & PEDS [address], [place] [phone] Zoraida Luo MD Appointment Request 03/12/2025 Telephone [facility] MED & PEDS [address], [place] [phone] Zoraida Luo MD Medication Question 03/12/2025 Telephone [facility] MED & PEDS [address], [place] [phone] Zoraida Luo MD Med Refill 03/01/2025 Telephone [facility] MEDICINE [address] [place] [address] Zoraida Luo MD 02/16/2025 Telephone [facility] MEDICINE [address] [place] [address] Zoraida Luo MD 02/16/2025 Refill [facility] MED & PEDS [address], [place] [phone] Paris Dale MD 02/15/2025 Travel 02/09/2025 Refill [facility] MED & PEDS [address] [place] [address] Sarah Medina, PharmD from Last 3 Months Immunizations Immunization Administration Dates Next Due HepB-CpG 11/23/2024 Influenza injectable quadriv alent IIV4 with preservative 06/24/2017,06/09/2016 Influenza injectable quadriv alent preservative free 03/16/2023,05/06/2022,04/05/2020,07/06 Influenza, High Dose Seasona l, Preservative Free 03/21/2018,04/11/2015 Influenza, IIV3, injectable 04/05/2020,0 06/24/2017,06/09/2016,04/16,03/12/2012,03/14/2009,04/10/2002 Influenza, Split (incl. yesenia fied surface antigen) 03/29/2013 Influenza, live, intranasal 04/18/2014 Influenza, seasonal, injecta ble, preservative free 04/20/2025,05/31/2024 MMR 11/12/2010 Moderna Covid-19 Vaccine 12+ 10/04/2020,09/07/19 Moderna Covid-19 Vaccine 6+ Bivalent 06/04/2022 Pfizer Covid-19 Vaccine 12+ Bivalent 08/24/2022 Pneumococcal Conjugate PCV 20 12/10/2021 Pneumococcal Polysaccharide PPSV23 04/05,05/10/2014,05/27/2008,11/18 Pneumococcal, Unspecified 11/18/2001 TD (adult), 2 Lf tetanus tox oid, preservative free, adsorbed 11/18/2001 Td (adult), unspecified 11/18/2001 Tdap 06/09/2016 Zoster, Recombinant 02/10/2022, 2,12/10/2021,12/10 Family History Medical History Relation Name Comments Diabetes Mother Diabetes Sister Relation Name Status Comments Mother Sister Social History Tobacco Use Types Packs/Day Years [...] Answer Date Recorded Patient Health Questionnaire-9 Score 16 05/10/2025 Patient Health Questionnaire-9 Score 16 05/10/2025 Last PHQ-9: Questionnaire Data Not on file 1 07/10/2024 Housing Stability Answer Date Recorded What is [...] got money to buy more: Sometimes True 2024 Within the past 12 months,th e food you bought just didn't last and you didn't have enough money to get more: Sometimes True 04/30/2025 Transportation Answer Date Recorded In the past 12 months, has l ack of transportation kept you from medical appts, meetings, work or from getting things needed for daily living? Yes, it has kept me from medical appointments or getting medications. 04/30/2025 Utilities Answer Date Recorded In the past 12 months, has t he electric, gas, oil or water company threatened to shut off services in your home? No 10/25/2024 Depression Answer Date Recorded Patient Health Questionnaire-2 Score 4 05/10/2025 Internet Access Answer Date Recorded Internet Access [...] Sign Reading Time Taken Comments Blood Pressure 190/100 05/04/2025 10:56 AM EST Pulse 76 05/04/2025 10:56 AM EST Temperature 36.9 C (98.4 F) 05/04/2025 10:56 AM EST Respiratory Rate 20 05/04/2025 10:56 AM EST Oxygen Saturation 98% 11/03/2024 10:35 AM EDT Inhaled Oxygen Concentration - - Weight 82.6 kg (182 lb) 05/04/2025 10:56 AM EST Height 160 cm (5' 3 ) 05/04/2025 10:56 AM EST Body Mass Index 32.24 05/04/2025 10:56 AM EST Plan of Treatment Upcoming Encounters Date Type Department Care Team (Late st Contact Info) Description 05/25/2025 9:15 AM EST Office Visit [facility] MED & PEDS [address] [place] [address] Gina Connelly MD [address] [place] [address] 06/04/2025 12:45 PM EST Office Visit [facility] ADULT DENTAL [address] [place] [address] Donny Oneill Health Maintenance Due Date Last Done Comments CT Colonography 1965 Colonoscopy 1965 Colorectal Cancer Screening 1965 FIT DNA/Cologuard 1965 FIT 1965 FOBT 1965 HIV Screening 1965 Sigmoidoscopy 1965 Disability Screening 1965 Hepatitis C Screening 1983 RSV Patients and Patients Aged 60 years or older (1 - Risk 50-74 years 1-dose series) 2015 Lipid Panel 11/10/2022 11/10/2021 Diabetes: Foot Exam 02/02/2023 Dental Oral Exam 11/24/2024 05/25/2024 Hepatitis B Vaccines (2 of 2 - CpG 2-dose series) 12/21/2024 11/23/2024 Diabetes: Hemoglobin A1C 02/03/2025 025, 08/24/2024, 05/17/2024, Additional history exists COVID-19 Vaccine ( season) 2025 08/24/2022, 06/04/2022, 10/04/2020, Additional history exists Dental Prophylaxis 06/01/2025 11/29/2024, 05/25/2024 Dental X-Ray: Bitewings 10/03/2025 10/02/2024, 05/25 Depression Monitoring 11/07/2025 05/10/2025, 025 Eye Exam 04/04/2026 04/04/2025, 03/21, 04/04/2025, Additional history exists Alcohol/Substance Use Screening 04/19/2026 04/19/2025 SDOH Screening 04/30/2026 04/30/2025 Tobacco Screening 05/04/2026 05/04/2025 DTaP/Tdap/Td Vaccines (2 - Td or Tdap) 06/09/2026 06/09/2016, 11/18/2001, 11/18/2001 Dental X-Ray: Full Mouth 2027 05/25/2024, 02/19 Pneumococcal Vaccine: 50+ Years Completed 12/10/2021, 04/05/2020, 05/10/2014, Additional history exists Zoster Vaccines Completed 02/10/2022, 01/20, 12/10/2021, Additional history exists Influenza Vaccine Completed 04/20/2025, , 03/16/2023, Additional history exists HIB Vaccines Aged Out [...] 11:17 AM EDT) No Anderson Zapata PharmD Help patients manage their type 2 diabetes Care Plan Help patients manage their type 2 diabetes Sarah Estes PharmD Weekly blood pressure task Care Plan Weekly blood pressure task No Sarah Medina PharmD Help patients manage their type 2 diabetes Care Plan Help patients manage their type 2 diabetes No Sarah Medina PharmD Patient has chronic kidney disease Care Plan Patient has chronic kidney disease No Sarah Medina PharmD Weekly blood pressure task Care Plan Weekly blood pressure task No Sarah Medina PharmD Patient has chronic kidney disease Care Plan Patient has chronic kidney disease No Sarah Medina PharmD Procedures Procedure Name Priority Date/Time Associated Diagnosis Comments POCT GLUCOSE Routine 05/10/2025 3:20 PM EST Type 2 diabetes mellitus with stage 4 chronic kidney disease, with long-term current use of insulin ([facility]) POCT GLUCOSE Routine 04/26/2025 10:59 AM EST Type 2 diabetes mellitus with stage 4 chronic kidney disease, with long-term current use of insulin ([facility]) Full PROPHYLAXIS - ADULT Routine 11/29/2024 11:00 AM EDT POCT GLYCATED HEMOGLOBIN, TOTAL Routine 11/03/2024 11:17 AM EDT Other specified diabetes mellitus with hyperglycemia, with long-term current use of insulin ([facility]) BITEWING - SINGLE RADIOGRAPHIC IMAGE Routine 10/02/2024 2:00 PM EDT INTRAORAL - COMPLETE SERIES OF RADIOGRAPHIC IMAGES Routine 05/25/2024 10:00 AM EST COMPREHENSIVE ORAL EVALUATION - NEW OR ESTABLISHED PATIENT Routine 05/25/2024 10:00 AM EST LIPID PANEL, STANDARD Routine 11/10/2021 11:45 AM EDT from Last 3 Months or Most Recently Relevant to Health Maintenance Results * (ABNORMAL) POCT glucose manually resulted (05/10/2025 3:20 PM EST) Only the most recent of2 resultswithin the time period is included. [facility] Glucose Blood, POC 500(A) 60 - 200 mg/dL Comment:[facility] QC Media Lot # [id number] Lot# Expiration Date [id number] Blood Capillary blood specimen / Unknown 05/10/2025 3:20 PM EST Zoraida Luo MD POINT OF CARE TEST ENTER/EDIT ORDERABLES Final Result * (ABNORMAL) POCT HGB A1C (11/03/2024 11:17 [...] [facility] Comment: Reference range: <100 Desirable range <100 mg/dL for primary prevention; <70 mg/dL for patients with CHD or diabetic patients with > or = 2 CHD risk factors. LDL-C is now calculated using the Nishant-Navarrete calculation, which is a validated novel method providing better accuracy than the Friedewald equation in the estimation of LDL-C. Nishant SS et al. HARLEEN. 2013;310(19): 8857-4061 (http://education.Quincus.Reclog/faq/WFX102) Non-HDL Cholesterol 68 <130 mg/dL (calc) [facility] Comment: For patients with diabetes plus 1 major ASCVD risk factor, treating to a non-HDL-C goal of <100 mg/dL (LDL-C of <70 mg/dL) is considered a therapeutic option. Triglycerides 221(H) <150 mg/dL [facility] Comment: If a non-fasting specimen was collected, consider repeat triglyceride testing on a fasting specimen if clinically indicated. Reji et al. J. of Clin. Lipidol. 2015;9:129-169. 11/10/2021 11:4 5 AM EDT us Selma Morley MD LAB BLOOD ORDERABLES Final Resul t [facility] [address] from Last 3 Months or Most Recently Relevant to Health Maintenance Additional Health Concerns Active Problems Noted Date Diagnosed Date Help patients manage their type 2 diabetes 05/10 Weekly blood pressure task 05/10/2025 Help patients manage their type 2 diabetes 05/10 Patient has chronic kidney disease 05/10/2025 Weekly blood pressure task 05/10/2025 Patient has chronic kidney disease 05/10/2025 Insurance [facility] C3 DENTAL-[facility] MEDICAID STAND ADULT * Guarantor: Tan Sheriff Tito Account Type Relation to Patient Date of Phone Billing Address Personal/Family Self [address] [facility] [address] [place] [id number] * Guarantor: Tan SheriffTito Account Type Relation to Patient Date of Phone Billing Address Personal/Family Self [address] [facility] [address] [place] [id number] Care Teams Crotch Piece Baster Relationship Specialty Start Date End Date Zoraida Luo MD [address] [place] [address] PCP - General Family Medicine 05/02/21 Sarah Medina PharmD [address] [place] [address] Pharmacist Internal Medicine 10/26/24 Ute Chatman, PATRIA [address] [place] [address] Registered Nurse Family Medicine 04/16/25 Carmen Aranda 04/16/25 Ana Chávez Fisher Oyster 07/15/23 [facility] Housing Cook Helper Preserves 09/01/23 [facility] 08/25/23
--- OUTSIDE RECORDS SUMMARY | 2025-05-11 14:13 | XMS_ITS | Encounter Summary ---
Author Organization [employer] Address [address] [place] [address] Care Team Providers Care Assistant Food Service Director Name Role Phone Zoraida Luo MD Primary Care Provider [phone] Andrea Zarate RN Unavailable [phone] Andrea aZrate RN Unavailable [phone] Sarah Medina PharmD Unavailable [phone] Ute Chatman RN Unavailable [phone] Carmen Aranda Unavailable Reason for Visit * Reason Comments Med Refill Encounter Details Date Type Department Care Team ([facility] st Contact Info) Description 04/28/2024 Refill [facility] MED & PEDS [address] [place] [address] Zoraida Luo MD [address] [place] [address] Bilateral primary osteoarthritis of knee Social History [...] Description 05/25/2025 9:15 AM EST Office Visit [facility] MED & PEDS [address] [place] [address] Gina Connelly MD [address] [place] [address] 06/04/2025 12:45 PM EST Office Visit [facility] ADULT DENTAL [address] [place] [address] Donny Oneill documented as of this encounter Goals Goal Patient Goal Type Associated Problems Recent Progress Patient-Stated? Author Patient will adhere to medication regimen General On track( 023 2:23 PM EDT) No Dellogono, Anderson, PharmD Hemoglobin A1c < 7 Result Component 11.8(11/04/19 11:17 AM EDT) No Anderson Zapata PharmD documented as of this encounter Visit Diagnoses Diagnosis Bilateral primary osteoarthritis of knee documented in this encounter Additional Health Concerns Assessment Noted Time PHQ-9 Depression Total Score: 8 07/22/19 11:43 AM EST documented as of this encounter Care Teams Assistant Food Service Director Relationship Specialty Start Date End Date Zoraida Luo MD [address] [place] [address] PCP - General Family Medicine 05/02/21 Andrea Zarate, RN [address] [place] [address] Forensic Document ExaminerMarketing Coordinator 03/22/24 08/28/24 Andrea Zarate, PATRIA [address] [place] [address] Forensic Document ExaminerMarketing Coordinator 08/25/24 01/11/25 Sarah Medina PharmD [address] [place] [address] Pharmacist Internal Medicine 10/26/24 Ute Chatman RN [address] [place] [address] Registered Nurse Family Medicine 04/16/25 Carmen Aranda 04/16/25 Ana Chávez Compliance Field Technician 07/15/23 [facility] Housing Personal Support Worker 09/01/23 [facility] 08/25/23 documented as of this encounter
--- OUTSIDE RECORDS SUMMARY | 2025-05-11 14:13 | XMS_ITS | Encounter Summary ---
Author Organization [employer] Address [address] [facility] 7t [place] [address] Care Team Providers Care Switchboard Operator Receptionist Name Role Phone Zoraida Luo MD Primary Care Provider [phone] Andrea Zarate RN Unavailable [phone] Andrea Zarate RN Unavailable [phone] Sarah Medina PharmD Unavailable [phone] Ute Chatman RN Unavailable [phone] Carmen Aranda Unavailable Reason for Visit * Reason Comments Med Refill Encounter Details Date Type Department Care Team ([facility] st Contact Info) Description 04/13/2023 Refill [facility] CH[facility] MED & PEDS [address] [place] [address] Zoraida Luo MD [address] [place] [address] Social History Tobacco Use Types Packs/Day Years [...] the past 12 months, has t he [employer], gas, oil or water company threatened to [...] Description 05/25/2025 9:15 AM EST Office Visit [facility] MED & PEDS [address] [place] [address] Gina Connelly MD [address] [place] [address] 06/04/2025 12:45 PM EST Office Visit [facility] ADULT DENTAL [address] [place] [address] Donny Oneill documented as of this encounter [...] documented as of this encounter Care Teams Switchboard Operator Receptionist Relationship Specialty Start Date End Date Zoraida Luo MD [address] [place] [address] PCP - General Family Medicine 05/02/21 Andrea Zarate, RN [address] [place] [address] Die Maker Bench StampingWindows Security Engineer 03/22/24 08/28/24 Andrea Zarate RN [address] [place] [address] Die Maker Bench StampingWindows Security Engineer 08/25/24 01/11/25 Sarah Medina PharmD [address] [place] [address] Pharmacist Internal Medicine 10/26/24 Ute Chatman, PATRIA [address] [place] [address] Registered Nurse Family Medicine 04/16/25 Carmen Aranda 04/16/25 Ana Chávez Field Return Repairer 07/15/23 [facility] Housing Scientific Informatics Analyst 09/01/23 [facility] 08/25/23 documented as of this encounter
--- OUTSIDE RECORDS SUMMARY | 2025-05-11 14:13 | XMS_ITS | Clinical Summary ---
Author Organization [facility] Address [address] [place] [address] Phone Care Team Providers Care Editorial Writer Name Role Phone Unavailable Primary Care Provider [...] It is not the complete legal health record.[facility]
--- OUTSIDE RECORDS SUMMARY | 2025-05-11 14:13 | XMS_ITS | Encounter Summary ---
Author Organization [employer] Address [address] [facility] [address] 7t [place] [address] Care Team Providers Care Escalator Operator Name Role Phone Zoraida Luo MD Primary Care Provider [phone] Andrea Zarate RN Unavailable [phone] Andrea Zarate RN Unavailable [phone] Sarah Medina PharmD Unavailable [phone] Ute Chatman RN Unavailable [phone] Carmen Aranda Unavailable Reason for Visit * Reason Comments Med Refill Encounter Details Date Type Department Care Team ([facility] st Contact Info) Description 05/02/2024 Refill [facility] MED & PEDS [address] [place] [address] Zoraida Luo MD [address] [place] [address] Bilateral primary osteoarthritis of knee Social History [...] Description 05/25/2025 9:15 AM EST Office Visit [facility] MED & PEDS [address] [place] [address] Gina Connelly MD [address] [place] [address] 06/04/2025 12:45 PM EST Office Visit [facility] ADULT DENTAL [address] [place] [address] Donny Oneill documented as of this encounter [...] documented as of this encounter Care Teams Escalator Operator Relationship Specialty Start Date End Date Zoraida Luo MD [address] [place] [address] PCP - General Family Medicine 05/02/21 Andrea Zarate, RN [address] [place] [address] Glost Tile ShaderCommutator Repairer 03/22/24 08/28/24 Andrea Zarate, PATRIA [address] [place] [address] Glost Tile ShaderCommutator Repairer 08/25/24 01/11/25 Sarah Medina PharmD [address] [place] [address] Pharmacist Internal Medicine 10/26/24 Ute Chatman RN [address] [place] [address] Registered Nurse Family Medicine 04/16/25 Carmen Aranda 04/16/25 Ana Chávez Party Plan Dealer 07/15/23 [facility] Housing Personnel Clerk 09/01/23 [facility] 08/25/23 documented as of this encounter
--- OUTSIDE RECORDS SUMMARY | 2025-05-11 14:14 | XMS_ITS | Encounter Summary ---
Author Organization [employer] Address [address] [facility] 7t [place] [address] Care Team Providers Care Bagman/Woman Name Role Phone Zoraida Luo MD Primary Care Provider [phone] Andrea Zarate RN Unavailable [phone] Andrea Zarate RN Unavailable [phone] Sarah Medina PharmD Unavailable [phone] Ute Chatman RN Unavailable Carmen Aranda Unavailable Encounter Details Date Type Department Care Team (Late st Contact Info) Description 02/04/2023 Orders Only [facility] [address] [place] [address] Marisol Zarate Social History Tobacco Use Types [...] Description 05/25/2025 9:15 AM EST Office Visit [facility] MED & PEDS [address] [place] [address] Gina Connelly MD [address] [place] [address] 06/04/2025 12:45 PM EST Office Visit [facility] ADULT DENTAL [address] [place] [address] Donny Oneill documented as of this encounter [...] documented as of this encounter Care Teams Bagman/Woman Relationship Specialty Start Date End Date Zoraida Luo MD [address] [place] [address] PCP - General Family Medicine 05/02/21 Andrea Zarate, PATRIA [address] [place] [address] Drill HandAuto Wash Buffer 03/22/24 08/28/24 Andrea Zarate, PATRIA [address] [place] [address] Drill HandAuto Wash Buffer 08/25/24 01/11/25 Sarah Medina PharmD [address] [place] [address] Pharmacist Internal Medicine 10/26/24 Ute Chatman, PATRIA [address] [place] [address] Registered Nurse Family Medicine 04/16/25 Carmen Aranda 04/16/25 Ana Chávez Fourchette Sewer 07/15/23 [facility] Housing Secondary Social Studies Teacher 09/01/23 [facility] 08/25/23 documented as of this encounter
--- OUTSIDE RECORDS SUMMARY | 2025-05-11 14:14 | XMS_ITS | Encounter Summary ---
Author Organization [employer] Address [address] [facility] 7t [place] [address] Care Team Providers Care Manager Credit Risk Name Role Phone Zoraida Luo MD Primary Care Provider Sarah Medina PharmD Unavailable Ute Chatman RN Unavailable [phone] Carmen Aranda Unavailable Reason for Visit * Reason Comments Care Coordination C3 CM-JAMES gutiérrez pt 1 Encounter Details Date Type Department Care Team (Latest Contact Info) Description 05/09/2025 Patient Outreach [facility] MEDICINE [address] [place] [address] Zoraida Luo MD [address] [place], [place] [phone] Care Coordination (C3 SOMMER Aranda pt 1 ) Social History Tobacco Use Types Packs/Day Years [...] as of this encounter Progress Notes * Carmen Aranda - 05/09/2025 10:15 AM EST CHW Carmen Aranda submitted May transportation to his appointment. documented in this encounter Plan of Treatment Upcoming Encounters Date Type Department Care Team ([facility] st Contact Info) Description 05/25/2025 9:15 AM EST Office Visit [facility] MED & PEDS [address] [place] [address] Gina Connelly MD [address] [place], [place] [phone] 06/04/2025 12:45 PM EST Office Visit [facility] ADULT DENTAL [address] [place] [address] Donny Oneill documented as of this encounter Goals Goal Patient Goal Type Associated Problems Recent Progress Patient-Stated? Author Patient will adhere to medication regimen General On track( 023 2:23 PM EDT) No Anderson Zapata, PharmD Hemoglobin A1c < 7 Result Component 11.8(11/04/19 11:17 AM EDT) No Dellogono, Anderson, PharmD documented as of this encounter Visit Diagnoses Not on filedocumented in this encounter Additional Health Concerns Assessment Noted Time PHQ-9 Depression Total Score: 8 04/19/20 1:14 PM EDT documented as of this encounter Care Teams Manager Credit Risk Relationship Specialty Start Date End Date Zoraida Luo MD [address] [place] [address] PCP - General Family Medicine 05/02/21 Sarah Medina PharmD [address] [place] [address] Pharmacist Internal Medicine 10/26/24 Ute Chatman RN [address] [place] [address] Registered Nurse Family Medicine 04/16/25 Carmen Aranda 04/16/25 Ana Chávez Production Supervisor Trainee 07/15/23 [facility] Housing Director Of Enterprise Architecture 09/01/23 [facility] 08/25/23 documented as of this encounter
--- OUTSIDE RECORDS SUMMARY | 2025-05-11 14:14 | XMS_ITS | Encounter Summary ---
Author Organization [email or web address] Address [address] [facility] 7t [place] [address] Care Team Providers Care Inspecting Engineer Name Role Phone Zoraida Luo MD Primary Care Provider [phone] Andrea Zarate RN Unavailable [phone] Andrea Zarate RN Unavailable [phone] Sarah Medina PharmD Unavailable [phone] Ute Chatman RN Unavailable [phone] Carmen Aranda Unavailable Reason for Visit * Reason Onset Date Comments FYI 01/12/2024 Encounter Details Date Type Department Care Team (Late st Contact Info) Description 01/12/[address] [facility] MEDICINE [address] [place], [place] [phone] Zoraida Luo MD [address] [place], [place] [phone] FYI Social History Tobacco Use Types Packs/Day [...] Bowman RN - 01/12/2024 12:23 PM EDT FYI Pt. Already schedule for HDF on 01/20/[address] Oneill. * Telephone Encounter - David Moctezuma - 01/12/2024 8:28 AM EDT Tc from [facility] calling to report will be resuming group home patient was in hospital on 01/05 and and discharged 01/08 [facility] and while being admitted was given new medications for additional information please call [phone] documented in this encounter Plan of Treatment Upcoming Encounters Date Type Department Care Team (Late st Contact Info) Description 05/25/2025 9:15 AM EST Office Visit [facility] MED [facility]ED[facility] [address] [place] [address] Gina Connelly MD [address] [place] [address] 06/04/2025 12:45 PM EST Office Visit [facility] ADULT DENTAL [address] [place] [address] Donny Oneill documented as of this encounter [...] documented as of this encounter Care Teams Inspecting Engineer Relationship Specialty Start Date End Date Zoraida Luo MD [address] [place] [address] PCP - General Family Medicine 05/02/21 Andrea Zarate RN [address] [place] [address] Electronics Engineering TechnologistCardiopulmonary Technician And Eeg Tech 03/22/24 08/28/24 Andrea Zarate RN [address] [place] [address] Electronics Engineering TechnologistCardiopulmonary Technician And Eeg Tech 08/25/24 01/11/25 Sarah Medina PharmD [address] [place] [address] Pharmacist Internal Medicine 10/26/24 Ute Chatman, PATRIA [address] [place] [address] Registered Nurse Family Medicine 04/16/25 Carmen Aranda 04/16/25 Ana Chávez Needle Leader 07/15/23 [facility] Housing Manager Wholesale 09/01/[address] [facility] 08/25/23 documented as of this encounter
--- OUTSIDE RECORDS SUMMARY | 2025-05-11 14:14 | XMS_ITS | Encounter Summary ---
Author Organization [employer] Address [address] 7t [place] [address] Care Team Providers Care Event Security Officer Name Role Phone Zoraida Luo MD Primary Care Provider [phone] Sarah Medina PharmD Unavailable [phone] Ute Chatman RN Unavailable [phone] Carmen Aranda Unavailable Encounter Details Date Type Department Care Team (Late st Contact Info) Description 05/07/2025 Telephone [facility] CH[facility] MED & PEDS [address] [place], [place] [phone] Sarah Medina, PharmD [address] [place], [place] [phone] Social History Tobacco Use Types Packs/Day Years [...] Date Recorded Patient Health Questionnaire-9 Score 8 04/19/2025 Patient Health Questionnaire-9 Score 8 04/19/2025 Last PHQ-9: Questionnaire Data Not on file 1 Housing Stability Answer Date Recorded What is [...] Answer Date Recorded Patient Health Questionnaire-2 Score 1 04/19/2025 Internet Access Answer Date Recorded Internet Access [...] encounter Miscellaneous Notes * Telephone Encounter - Sarah Medina PharmD - 05/07/2025 10:28 AM EST Received call from [facility] inpatient diabetes team, patient currently admitted (for back pain/incontinence per chart review). They reported patient's sensor not currently paired with Omnipod and advising that he will need to put in the blood sugar readings manually . However I informed them of patient being illiterate and may not be able to do this. The team agreed to remove Omnipod and treat patient as they normally would i.e. check BG and give rapid acting insulin PRN. Patient can resume Omnipod when discharged. Will request replacement sensor be sent to patient's house. documented in this encounter Plan of Treatment Upcoming Encounters Date Type Department Care Team (Late st Contact Info) Description 05/25/2025 9:15 AM EST Office Visit [facility] MED & PEDS [address] [place] [address] Gina Connelly MD [address] [place] [address] 06/04/2025 12:45 PM EST Office Visit [facility] ADULT DENTAL [address] [place] [address] Donny Oneill documented as of this encounter [...] documented as of this encounter Care Teams Event Security Officer Relationship Specialty Start Date End Date Zoraida Luo MD [address] [place] [address] PCP - General Family Medicine 05/02/21 Sarah Medina PharmD [address] [place] [address] Pharmacist Internal Medicine 10/26/24 Ute Chatman RN [address] [place] [address] Registered Nurse Family Medicine 04/16/25 Carmen Aranda 04/16/25 Ana Chávez Bobbin Loose End Finder 07/15/23 [facility] Housing Senior Auditor 09/01/23 [facility] 08/25/23 documented as of this encounter
--- OUTSIDE RECORDS SUMMARY | 2025-05-11 14:14 | XMS_ITS | Encounter Summary ---
Author Organization [employer] Address [address] [place] [address] Care Team Providers Care Owner Name Role Phone Zoraida Luo MD Primary Care Provider [phone] Sarah Medina PharmD Unavailable [phone] Ute Chatman RN Unavailable [phone] Carmen Aranda Unavailable Encounter Details Date Type Department Care Team (Latest Contact Info) Description 05/10/2025 Travel Social History Tobacco Use Types Packs/Day [...] AM EDT documented as of this encounter Functional Status * Over the past 2 weeks, how often have you been bothered by any of the following problems? Question Answer Date of Assessment Author Patient Health Questionnaire-2 Score 4 05/10/2025 3:33 PM Dewayne Armstrong LMHC * Little interest or pleasure in doing things Answer Date of Assessment Author More than half the days 05/10/2025 3:33 PM Dewayne Johansen LM[facility] * Feeling down, depressed, or hopeless Answer Date of Assessment Author More than half the days 05/10/2025 3:33 PM Dewayne Johansen LM[facility] * Trouble falling or staying asleep, or sleeping too much Answer Date of Assessment Author Nearly every day 05/10/2025 3:33 PM Dewayne Alexander LMHC * Feeling tired or having little energy Answer Date of Assessment Author More than half the days 05/10/2025 3:33 PM Dewayne Johansen LMHC * Poor appetite or overeating Answer Date of Assessment Author More than half the days 05/10/2025 3:33 PM Dewayne Johansen LMHC * Feeling bad about yourself - or that you are a failure or have let yourself or your family down Answer Date of Assessment Author Several days 05/10/2025 3:33 PM Dewayne Chen LMHC * Trouble concentrating on things, such as reading the newspaper or watching television Answer Date of Assessment Author More than half the days 05/10/2025 3:33 PM Dewayne Johansen LMHC * Moving or speaking so slowly that other people could have noticed? Or the opposite - being so fidgety or restless that you have been moving around a lot more than usual. Answer Date of Assessment Author More than half the days 05/10/2025 3:33 PM Dewayne Johansen LM[facility] * Thoughts that you would be better off or hurting yourself in some way Answer Date of Assessment Author Not at all 05/10/2025 3:33 PM Dewayne Chen LMHC * Patient Health Questionnaire-9 Score Answer Date of Assessment Author 16 05/10/2025 3:33 PM Dewayne Chen LM[facility] * Over the last 2 weeks, how often have you been bothered by any of the following problems? Question Answer Date of Assessment Author Feeling nervous, anxious, or on edge 3 05/10/2025 3:33 PM Dewayne Curtis LMHC Not being able to stop or control worrying 2 05/10/2025 3:33 PM Dewayne Curtis LMHC Worrying too much about different things 2 05/10/2025 3:33 PM Dewayne Curtis LMHC Trouble relaxing 3 05/10/2025 3:33 PM EST Dewayne Christopher LMHC Being so restless that it is hard to sit still 2 05/10/2025 3:33 PM Dewayne Curtis LMHC Becoming easily annoyed or irritable 2 05/10/2025 3:33 PM Dewayne Curtis LMHC Feeling afraid as if something awful might happen 3 05/10/2025 3:33 PM Dewayne Alexander LMHC CHARMAINE-7 Total Score 17 05/10/2025 3:33 PM EST Dewayne Hutton LMHC * How difficult have these problems made it for you to do your work, take care of things at home, or get along with other people? Answer Date of Assessment Author Very difficult 05/10/2025 3:33 PM EST Dewayne Huerta LMHC documented as of this encounter Plan of Treatment Upcoming Encounters Date Type Department Care Team (Late st Contact Info) Description 05/25/2025 9:15 AM EST Office Visit [facility] MED & PEDS [address] [place] [address] Gina Connelly MD [address] [place] [address] 06/04/2025 12:45 PM EST Office Visit [facility] ADULT DENTAL [address] [place] [address] Donny Oneill documented as of this encounter Goals Goal Patient Goal Type Associated Problems Recent Progress Patient-Stated? Author Patient will adhere to medication regimen General On track( 023 2:23 PM EDT) No Anderson Zapata, PharmParveen Hemoglobin A1c < 7 Result Component 11.8(11/04/19 25 11:17 AM EDT) No Anderson Zapata, PharmD Help patients manage their type 2 diabetes Care Plan Help patients manage their type 2 diabetes No Sarah Medina, PharmD Weekly blood pressure task Care Plan Weekly blood pressure task No Sarah Medina, PharmD Help patients manage their type 2 diabetes Care Plan Help patients manage their type 2 diabetes No Мария Medinaa, PharmD Patient has chronic kidney disease Care Plan Patient has chronic kidney disease No Мария Medinaa, PharmD Weekly blood pressure task Care Plan Weekly blood pressure task No Мария Medinaa, PharmD Patient has chronic kidney disease Care Plan Patient has chronic kidney disease No Sarah Medina, PharmD documented as of this encounter Visit Diagnoses Not on filedocumented in this encounter Additional Health Concerns Active Problems Noted Date Diagnosed Date Help patients manage their type 2 diabetes 05/10 Weekly blood pressure task 05/10/2025 Help patients manage their type 2 diabetes 05/10 Patient has chronic kidney disease 05/10/2025 Weekly blood pressure task 05/10/2025 Patient has chronic kidney disease 05/10/2025 Assessment Noted Time PHQ-9 Depression Total Score: 16 025 3:33 PM EST documented as of this encounter Care Teams Owner Relationship Specialty Start Date End Date Zoraida Luo MD [address] [place] [address] PCP - General Family Medicine 05/02/21 Sarah Medina PharmD [address] [place], [place] [phone] Pharmacist Internal Medicine 10/26/24 Ute Chatman RN [address] [place] [address] Registered Nurse Family Medicine 04/16/25 Carmen Aranda 04/16/25 Ana Chávez Clothing Trades Workers 07/15/23 [facility] Housing Supervisor Bottle House Cleaners 09/01/23 [facility] 08/25/23 documented as of this encounter
--- OUTSIDE RECORDS SUMMARY | 2025-05-11 14:14 | XMS_ITS | Encounter Summary ---
Author Organization [employer] Address [address] [place] [address] Care Team Providers Care Equipment Operation Instructor Name Role Phone Zoraida Luo MD Primary Care Provider [phone] Andrea Zarate RN Unavailable [phone] Andrea Zarate RN Unavailable [phone] Sarah Medina PharmD Unavailable [phone] Ute Chatman RN Unavailable [phone] Carmen Aranda Unavailable Reason for Visit * Reason Comments Med Refill Encounter Details Date Type Department Care Team ([facility] st Contact Info) Description 04/14/2024 Refill [facility] MED & PEDS [address] [place] [address] Zoraida Luo MD [address] [place] [address] Bilateral primary osteoarthritis of knee Social History [...] 05/25/2025 9:15 AM EST Office Visit [facility] MED [facility] PEDS [address] [place] [address] Gina Connelly MD [address] [place] [address] 06/04/2025 12:45 PM EST Office Visit [facility] ADULT DENTAL [address] [place] [address] Donny Oneill documented as of this encounter [...] documented as of this encounter Care Teams Equipment Operation Instructor Relationship Specialty Start Date End Date Zoraida Luo MD [address] [place] [id number] PCP - General Family Medicine 05/02/21 Andrea Zarate RN [address] [place] [address] Research InvestigatorStreetcar Repairer 03/22/24 08/28/24 Andrea Zarate RN [address] [place] [address] Research InvestigatorStreetcar Repairer 08/25/24 01/11/25 Sarah Medina PharmD [address] [place] [phone] Pharmacist Internal Medicine 10/26/24 Ute Chatman RN [address] [place] [phone] Registered Nurse Family Medicine 04/16/25 Carmen Aranda 04/16/25 Ana Chávez Legal Summer Intern 07/15/23 [facility] Housing Special Class Welder 09/01/23 [facility] 08/25/23 documented as of this encounter
--- OUTSIDE RECORDS SUMMARY | 2025-05-11 14:14 | XMS_ITS | Encounter Summary ---
Author Organization [employer] Address [address] [place] [address] Care Team Providers Care Social Media Marketing Specialist Name Role Phone Zoraida Luo MD Primary Care Provider Sarah Medina PharmD Unavailable Ute Chatman RN Unavailable [phone] Carmen Aarnda Unavailable Reason for Visit * Reason Comments Care Management C3CM- FOLLOW UP CALL Encounter Details Date Type Department Care Team ([facility] st Contact Info) Description 05/09/2025 Patient Outreach [facility] MED & PEDS [address] [place], [place] [phone] Zoraida Luo MD [address] [place], [place] [phone] Care Management (C3CM- FOLLOW UP CALL/) Social History Tobacco Use Types Packs/Day Years [...] as of this encounter Progress Notes * Ute Chatman RN - 05/09/2025 8:24 AM EST [place] Chatman RN placed outbound call to patient. Patient's name, and address confirmed. Patient states is doing well since admission to [facility]. Patient reports still continues to have back pain, was advised back pain would take some time to improve. Patient was able to picker / packer prescription for oxycodone and lidocaine patches. Patient aware needs PCP follow up. Patient scheduled for follow up with [facility] team provider Dr. Connelly on 05/25/25 at 9:15am. CM will coordinate with [facility] regarding need for PT-1. Patient made aware that OV notes from 11/14 visit [facility] liners and electric wheelchair. Patient advised that they may reach out to coordinate follow ups. If patient gets any new appointments scheduled to reach out to [facility] to coordinate transportation. Patient wishes to also have soonest follow up with [facility] pharmacist for re initiating Omnipod use. CM reviewed importance of DM diet to have adequate glycemic control. Patient states does prefer this as limits patient having to self inject insulin and also finger stick glucose checks. Will send in basket message to Sarah Medina PharmD to request outreach to patient. Patient then placed sister on the line to inform CM of ucpomignappts that will need transportation set up. 05/16/25 at 10am [address] [facility] [address] 05/30/25 at 10:30am [address] [place] [address] [facility] 06/04/[address] [facility] 06/15/25 at 9:30am [address] [facility] [address] [facility] Patient made aware of upcoming dental appointment that conflicts with lab draw day. Patient states will call to reschedule dental appointment. Patient states over all well and glad things are moving along. CM asked about current services, patient states [facility] only comes in to do vitals, patient is using medication boxes and Omnipod with good adherence. Patient wishes had more hours with sister to he lp with ADLs. Patient advised CM can send information on how to request MAINFRAME APPLICATIONS DEVELOPER services through [facility]. Patient may be able to obtain more services after their evaluation. Patient agrees to reach out. No further questions or concerns. CM reinforced direct contact information or CHW for any additional questions or concerns. Education provided on Walk-In Urgent Care located in [facility]. Patient provided with after-hours line for [facility], , which offer night time triage service and option to transfer to plant protection superintendent provider if needed. Patient verbalizes understanding, and able to repeat back to newspaper writer. A follow up call will be placed within 10 days, patientagrees with plan. * Ute Chatman RN - 05/09/2025 8:24 AM EST CM Ute Chatman RN placed outreach call to patient. During call patient requesting [facility] visit to resume Omnipod. Forwarded to Sarah Medina PharmD to follow up with patient. documented in this encounter Miscellaneous Notes * Care Plan - Ute Chatman RN - 05/09/2025 8:24 AM EST Active Amputation Amputation Management (Progressing) Start: 04/19/25 Expected End: 07/20/25 Patient will work with care team to properly care for amputation site, prevent infection, and adaptto changes in mobility and daily activities Goal Note Patient aware of need for new liners for prosthetic. OV notes sent to [facility] for documentation of medical necessity to complete order. Barriers to Care Manage Barriers to Care (Progressing) Start: 04/19/25 Expected End: 07/20/25 In the next 3 months, the patient will identify and communicate with CM team any personal, social, or environmental barriers that affect their ability to access or participate in care. Goal Note Care management team has provided assistance with coordinating transportation to ensure no barriersfor patient keeping all appointment. CM has coordinated follow up appointment after recent hospitalization 05/25/25 at 9:15am with Dr. Connelly. Behavioral Health Support Behavioral Health (Progressing) Start: 04/19/25 Expected End: 07/20/25 Goal Note CM assessed mood, patient reports doing well. Has not yet reached out to integrated Behavioral Health team at [facility] for BE. Will continue to assess and coordinate at next follow up. Care Management Care Management (Progressing) Start: 04/19/25 Expected End: 07/20/25 Within the next 3 months, patient will engage with medicare specialist through scheduled calls or visits to review health goals, discuss progress, and address any barriers to care plan. Goal Note Patient has maintained communication with CM team at all follow up calls and informing CM team of any new concerns to coordinate appropriate care. Instruct on length of service and appropriate boundaries. (Completed) Start: 04/19/25 End: 05/09/25 Ute Chatman RN Coordination of Care Effectively coordinate care (Progressing) Start: 04/19/25 Expected End: 07/20/25 In the next 3 months, patient will notify the care team of all upcoming appointments and communicate any scheduling difficulties to receive assistance with coordination and reminders. Goal Note CM made patient aware that OV notes from 05/04 visit sent to both [facility] for process of both prosthetic liners and electric wheelchair. Patient advised that they may reach out to coordinate follow ups. Diabetes Within the next 3 months, patient will check blood sugar as recommended by provider, take diabetes medications as prescribed, and work with care management team to keep my blood glucose within my target range. Adherence to Carbohydrate and Sugar Restrictions (Progressing) Start: 04/19/25 Expected End: 07/20/25 Goal Note CM reviewed importance of DM diet to have adequate glycemic control. Adherence to Prescribed Blood Sugar Self-Monitoring Plan (Progressing) Start: 04/19/25 Expected End: 07/20/25 Goal Note CM coordinated outreach to [facility] pharmacist for follow up on Omnipod. Home Health Senior Living Health Care Delivery (Progressing) Start: 04/19/25 Expected End: 07/20/25 Goal Note CM asked about current services, patient states [facility] only comes in to do vitals, patient is using medication boxes and Omnipod with good adherence. Patient wishes had more hours with sister to help with ADLs. Patient advised CM can send information on how to request MAINFRAME APPLICATIONS DEVELOPER services through [facility]. Medication Concerns Improve Medication Access (Progressing) Start: 04/19/25 Expected End: 07/20/25 Patient will adhere to all prescribed medications and will notify their primary care provider or prescriber when medication refills are needed to prevent missed doses within the next 3 months. Goal Note CM coordinated communication with Sarah Medina PharmD CD[facility] pharmacist for re initiating Omnipod use. Improve Medication Adherence (Progressing) Start: 04/19/25 Expected End: 07/20/25 Goal Note CM verified patient still compliant with medication boxes and CDTM visits for DM management. Improve Medication Administration (Progressing) Start: 04/19/25 Expected End: 07/20/25 Goal Note Patient is interested in continue use of Omnipod for better administration of insulin and glucose monitoring. Improve Medication Management (Progressing) Start: 04/19/25 Expected End: 07/20/25 Goal Note CM to continue to assess for any patient concerns with medication management. Plan of Care Patient Centered Plan of Care (Progressing) Start: 04/19/25 Expected End: 07/20/25 Patient will actively participate in care planning by collaborating with the care team to set, review, and work toward personal health goals, demonstrating engagement in their overall treatment and wellness plan Goal Note CM reviewed current care plan and documented progression of goals. Will continue to review at all follow up visits. SDOH Needs Support SDOH Needs (Progressing) Start: 04/19/25 Expected End: 07/20/25 Patient will communicate any social, financial, or environmental challenges that affect their health (such as housing, transportation, food access, or medication costs) with care management team so that they can help connect with available resources and supports. Goal Note CM assessed for any new SDOH needs. None reported by patient at this encounter. Self Management Patient takes an active role in self-managing condition (Progressing) Start: 04/19/25 Expected End: 07/20/25 Patient will call their primary care provider's office for any new or urgent health concerns to ensure timely follow-up and appropriate adjustments to the treatment plan. Patient will also utilize the walk-in clinic or nurse telephone triage services after hours as needed to address urgent health issues and prevent delays in care. Goal Note CM assessed that patient understands discharge instructions from recent admission, patient was ableto teach back to CM. Patient understands and has a plan for managing symptoms and knows when to contact physician (Progressing) Start: 04/19/25 Expected End: 07/20/25 Goal Note CM reviewed with patient Walk In Center hours and Nurse Telephone Triage Service for after hours for upcoming week as office closed due to holiday. Wound/s Manage Wound/s Care Needs (Progressing) Start: 04/19/25 Expected End: 07/20/25 Goal Note CM assessed status of skin integrity for stump. No new concerns. documented in this encounter Plan of Treatment Upcoming Encounters Date Type Department Care Team (Late st Contact Info) Description 05/25/2025 9:15 AM EST Office Visit [facility] MED & PEDS [address] [place] [address] Gina Connelly MD [address] [place] [address] 06/04/2025 12:45 PM EST Office Visit [facility] ADULT DENTAL [address] [place] [address] Donny Oneill documented as of this encounter Goals Goal Patient Goal Type Associated Problems Recent Progress Patient-Stated? Author Patient will adhere to medication regimen General On track( 023 2:23 PM EDT) No Anderson Zapata, PharmParveen Hemoglobin A1c < 7 Result Component 11.8(11/04/19 25 11:17 AM EDT) No Anderson Zapata PharmParveen Help patients manage their type 2 diabetes Care Plan Help patients manage their type 2 diabetes No Sarah Medina PharmD Weekly blood pressure task Care Plan Weekly blood pressure task No Sarah Medina PharmD Help patients manage their type 2 diabetes Care Plan Help patients manage their type 2 diabetes No Sarah Medina PharmParveen Patient has chronic kidney disease Care Plan Patient has chronic kidney disease No Sarah Medina PharmParveen Weekly blood pressure task Care Plan Weekly blood pressure task No Sarah Medina, PharmD Patient has chronic kidney disease Care Plan Patient has chronic kidney disease No Sarah Medina PharmD documented as of this encounter Visit [...] Time PHQ-9 Depression Total Score: 8 04/19/20 25 1:14 PM EDT documented as of this encounter Care Teams Social Media Marketing Specialist Relationship Specialty Start Date End Date Zoraida Luo MD [address] [place] [address] PCP - General Family Medicine 05/02/21 Sarah Medina, PharmD [address] [place] [address] Pharmacist Internal Medicine 10/26/24 Ute Chatman RN [address] [place] [address] Registered Nurse Family Medicine 04/16/25 Carmen Aranda 04/16/25 Ana Chávez Loftsman/Woman 07/15/23 [facility] Housing Blackener 09/01/23 [facility] 08/25/23 documented as of this encounter
--- OUTSIDE RECORDS SUMMARY | 2025-05-11 14:14 | XMS_ITS | Clinical Summary ---
Author Organization [facility] Address [address] [place] [address] Care Team Providers Care Medical Claims Assistant Name Role Phone Pcp, No Primary Care [...] 50+ (1 of 1 - PCV) 2015 RSV Vaccine 50 years and old er and Patients (1 - Risk 50-74 years 1-dose series) 2015 Zoster (Shingles) Vaccine (1 of 2) 2015 Influenza Vaccine 01/19/2025 03/16/2023, , 04/05/2020, Additional history exists COVID-19 Vaccine ( - 2024-2 6 season) 2025 08/24/2022, 06/04/2022, 10/04/2020, Additional history exists Insurance * Guarantor: Tito Barboza Account Type Relation to Patient Date of Phone Billing Address Personal/Family Self 1965 [address] [place] [id number] [place] [facility] [place] Medical Claims Assistant Relationship Specialty Start Date End Date Pcp, No [address] [place] [address] PCP - General 03/15/20
--- OUTSIDE RECORDS SUMMARY | 2025-05-11 14:14 | XMS_ITS | Encounter Summary ---
Author Organization [employer] Address [address] [facility] 7t [place] [address] Care Team Providers Care Full Time Name Role Phone Zoraida Luo MD Primary Care Provider [phone] Andrea Zarate RN Unavailable [phone] Andrea Zarate RN Unavailable [phone] Sarah Medina PharmD Unavailable [phone] Ute Chatman RN Unavailable Carmen Aranda Unavailable Reason for Referral * Consultation (Routine) - Canceled Specialty Diagnoses / Procedures Referred By Gus marrufo Referred To Contact Pharmacy Diagnoses BEATRIZ (acute kidney injury) Noelle Birmingham, PharmD [address] [place] [address] Phone: tel: fax: Referral ID Status Reason Start Date Expiration Date V isits Requested Visits Authorized [id number] Canceled Continuity of Care 09/28/2023 09/27/2024 1 1 Encounter Details Date Type Department Care Team (Late st Contact Info) Description 09/28/[address] [facility] [address] [place], [place] [phone] Noelle Birmingham, PharmD [address] [place], [place] [phone] BEATRIZ (acute kidney injury) (CMS/HCC) (Primary Dx) [...] Description 05/25/2025 9:15 AM EST Office Visit [facility] MED & PEDS [address] [place] [address] Gina Connelly MD [address] [place] [address] 06/04/2025 12:45 PM EST Office Visit [facility] ADULT DENTAL [address] [place] [address] Donny Oneill Scheduled Referrals Name Type Priority Associated Diagnoses Orde r Schedule Referral to Pharmacy MT Outpatient Referral Routine BEATRIZ (acute kidney injury) ([facility]) Ordered: 09/28/2023 documented as of this encounter Goals Goal Patient Goal Type Associated Problems Recent Progress Patient-Stated? Author Patient will adhere to medication regimen General On track( 023 2:23 PM EDT) No Anderson Zapata, PharmD Hemoglobin A1c < 7 Result Component 11.8(11/04/19 11:17 AM EDT) No Anderson Zapata, PharmD documented as of this encounter Visit Diagnoses Diagnosis BEATRIZ (acute kidney injury)- Primary documented in this encounter Additional Health Concerns Assessment Noted Time PHQ-9 Depression Total Score: 8 07/22/19 11:43 AM EST documented as of this encounter Care Teams Full Time Relationship Specialty Start Date End Date Zoraida Luo MD [address] [place] [address] PCP - General Family Medicine 05/02/21 Andrea Zarate RN [address] [place] [address] Talent Acquisition Operations ManagerHand Buffer 03/22/24 08/28/24 Andrea Zarate RN [address] [place] [address] Talent Acquisition Operations ManagerHand Buffer 08/25/24 01/11/25 Sarah Medina PharmD [address] [place] [address] Pharmacist Internal Medicine 10/26/24 Ute Chatman, PATRIA [address] [place] [address] Registered Nurse Family Medicine 04/16/25 Carmen Aranda 04/16/25 Ana Chávez Restoration Silversmith 07/15/23 [facility], [facility] Housing Director Of Outside Sales 09/01/23 [facility] 08/25/23 documented as of this encounter
--- OUTSIDE RECORDS SUMMARY | 2025-05-11 14:14 | XMS_ITS | Encounter Summary ---
Author Organization [employer] Address [address] [facility] 7t [place] [address] Care Team Providers Care Guest Service Host Name Role Phone Zoraida Luo MD Primary Care Provider [phone] Andrea Zarate RN Unavailable [phone] Andrea Zarate RN Unavailable [phone] Sarah Medina PharmD Unavailable [phone] Ute Chatman RN Unavailable [phone] Carmen Aranda Unavailable Reason for Visit * Reason Comments Med Refill Encounter Details Date Type Department Care Team ([facility] st Contact Info) Description 10/05/2023 Refill [facility] CH[facility] MED & PEDS [address] [place] [address] Zoraida Luo MD 505 [place] [address] Social History Tobacco Use Types Packs/Day Years [...] 9:15 AM EST Office Visit [facility] MED & PEDS [address] [place] [address] Gina Connelly MD [address] [place] [address] 06/04/2025 12:45 PM EST Office Visit [facility] ADULT DENTAL [address] [place] [address] Donny Oneill documented as of this encounter [...] Noted Time PHQ-9 Depression Total Score: 8 02/01/20 24 11:43 AM EST documented as of this encounter Care Teams Guest Service Host Relationship Specialty Start Date End Date Zoraida Luo MD [address] [place] [address] PCP - General Family Medicine 05/02/21 Andrea Zarate, PATRIA [address] [place] [address] Registered Nurse Step DownSprinkler Installer 03/22/24 08/28/24 Andrea Zarate RN [address] [place] [address] Registered Nurse Step DownSprinkler Installer 08/25/24 01/11/25 Sarah Medina PharmD [address] [place] [address] Pharmacist Internal Medicine 10/26/24 Ute Chatman RN [address] [place] [address] Registered Nurse Family Medicine 04/16/25 Carmen Aranda 04/16/25 Ana Chávez Stain Applicator 07/15/23 [facility] Housing Wooden Box Maker 09/01/23 [facility] 08/25/23 documented as of this encounter
--- OUTSIDE RECORDS SUMMARY | 2025-05-11 14:14 | XMS_ITS | Encounter Summary ---
Author Organization [employer] Address [address] [facility] 7t [place] [address] Care Team Providers Care Keg Header Name Role Phone Zoraida Luo MD Primary Care Provider [phone] Andrea Zarate RN Unavailable [phone] Andrea Zarate RN Unavailable [phone] Sarah Medina PharmD Unavailable [phone] Ute Chatman RN Unavailable [phone] Carmen Aranda Unavailable Encounter Details Date Type Department Care Team (Late st Contact Info) Description 12/15/2022 Telephone [facility] MEDICINE [address] [place], [place] [phone] Zoraida Luo MD [address] [place], [place] [phone] Social History Tobacco Use Types Packs/Day Years [...] Recorded In the last 10 days, have rosy u been in contact with someone who was confirmed or suspected to have Coronavirus/COVID-19? No / Unsure 11/26/2022 2:29 PM EDT documented as of this encounter Plan of Treatment Upcoming Encounters Date Type Department Care Team ([facility] st Contact Info) Description 05/25/2025 9:15 AM EST Office Visit [facility] MED & PEDS [address] [place] [address] Gina Connelly MD [address] [place] [address] 06/04/2025 12:45 PM EST Office Visit [facility] ADULT DENTAL [address] [place], [place] [phone] Donny Oneill documented as of this encounter [...] documented as of this encounter Care Teams Keg Header Relationship Specialty Start Date End Date Zoraida Luo MD [address] [place] [address] PCP - General Family Medicine 05/02/21 Andrea Zarate RN [address] [place] [address] Senior ParalegalFirer Diesel Locomotive 03/22/24 08/28/24 Andrea Zarate RN [address] [place] [address] Senior ParalegalFirer Diesel Locomotive 08/25/24 01/11/25 Sarah Medina, Ivis [address] [place], [place] [phone] Pharmacist Internal Medicine 10/26/24 Ute Chatman, PATRIA [address] [place], [place] [phone] Registered Nurse Family Medicine 04/16/25 Carmen Aranda 04/16/25 Ana Chávez Fisher Gill Net 07/15/23 [facility] Housing Customer Service Technician 09/01/23 [facility] 08/25/23 documented as of this encounter
--- OUTSIDE RECORDS SUMMARY | 2025-05-11 14:14 | XMS_ITS | Encounter Summary ---
Author Organization [employer] Address [address] [facility] 7t [place] [address] Care Team Providers Care Bell Staff Name Role Phone Zoraida Luo MD Primary Care Provider [phone] Andrea Zarate RN Unavailable [phone] Andrea Zarate RN Unavailable [phone] Sarah Medina PharmD Unavailable [phone] Ute Chatman RN Unavailable [phone] Carmen Aranda Unavailable Reason for Visit * Reason Comments Med Refill Encounter Details Date Type Department Care Team ([facility] st Contact Info) Description 04/05/2024 Refill [facility] CHC MED & PEDS [address] [place] [address] Zoraida Luo MD [address] [place] [address] Social History Tobacco Use Types Packs/Day Years [...] Upcoming Encounters Date Type Department Care Team ([facility] st Contact Info) Description 05/25/2025 9:15 AM EST Office Visit [facility] MED [facility]EDS [address] [place] [address] Gina Connelly MD [address] [place] [address] 06/04/2025 12:45 PM EST Office Visit [facility] ADULT DENTAL [address] [place] [address] Donny Oneill documented as of this encounter [...] documented as of this encounter Care Teams Bell Staff Relationship Specialty Start Date End Date Zoraida Luo MD [address] [place] [address] PCP - General Family Medicine 05/02/21 Andrea Zarate, PATRIA [address] [place] [address] French BinderClinical Research Technician 03/22/24 08/28/24 Andrea Zarate, PATRIA [address] [place] [address] French BinderClinical Research Technician 08/25/24 01/11/25 Sarah Medina PharmD [address] [place] [address] Pharmacist Internal Medicine 10/26/24 Ute Chatman RN [address] [place] [address] Registered Nurse Family Medicine 04/16/25 Carmen Aranda 04/16/25 Ana Chávez Green Pipefitter 07/15/23 [facility] Housing Corporation Pilot 09/01/[address] [facility] 08/25/23 documented as of this encounter
--- OUTSIDE RECORDS SUMMARY | 2025-05-11 14:14 | XMS_ITS | Encounter Summary ---
Author Organization [employer] Address [address] [facility] 7t [place] [address] Care Team Providers Care Repair Supervisor Name Role Phone Zoraida Luo MD Primary Care Provider [phone] Andrea Zarate RN Unavailable Andrea Zarate RN Unavailable [phone] Sarah Medina PharmD Unavailable [phone] Ute Chatman RN Unavailable [phone] Carmen Aranda Unavailable Reason for Visit * Reason Onset Date Comments Hospital Follow-up 01/12/2024 Encounter Details Date Type Department Care Team (Late st Contact Info) Description 01/12/2024 Telephone [facility] MEDICINE [address] [place] [address] Zoraida Luo MD [address] [place], [place] [phone] Hospital Follow-up Social History Tobacco Use Types [...] from pt requesting a HDF appt. Hospital: [facility] Date of admission: 01/05 Discharge date: 01/08 Diagnosed: High Blood Sugar documented in this encounter Plan of Treatment Upcoming Encounters Date Type Department Care Team (Late st Contact Info) Description 05/25/2025 9:15 AM EST Office Visit [facility] MED & PEDS [address] [place] [address] Gina Connelly MD [address] [place] [address] 06/04/2025 12:45 PM EST Office Visit [facility] ADULT DENTAL [address] [place] [address] Donny Oneill documented as of this encounter [...] documented as of this encounter Care Teams Repair Supervisor Relationship Specialty Start Date End Date Zoraida Luo MD [address] [place] [address] PCP - General Family Medicine 05/02/21 Andrea Zarate, PATRIA [address] [place] [address] Cigar BanderElectrician Wiring 03/22/24 08/28/24 Andrea Zarate RN [address] [place] [address] Cigar BanderElectrician Wiring 08/25/24 01/11/25 Sarah Medina PharmD [address] [place] [address] Pharmacist Internal Medicine 10/26/24 Ute Chatman, PATRIA [address] [place] [address] Registered Nurse Family Medicine 04/16/25 Carmen Aranda 04/16/25 Ana Chávez Head Trimmer 07/15/23 [facility] Housing Mortgage Originator 09/01/23 [facility] 08/25/23 documented as of this encounter
--- OUTSIDE RECORDS SUMMARY | 2025-05-11 14:14 | XMS_ITS ---
Author Organization [employer] Address [address] [facility] 7t [place] [address] Care Team Providers Care Actuary Clerk Name Role Phone Zoraida Luo MD Primary Care Provider [phone] Sarah Medina PharmD Unavailable [phone] Ute Chatman RN Unavailable [phone] Carmen Aranda Unavailable CM Complex Status:Enrolled (Active) Start date:04/16/2025 Enrollment date:04/19/2025 Enrollment reason:Referred by provider Overview Home Health Utilization Referral-Connection with appropriate resources. Case Team Name Relationship Phone Ute Chatman RN(Responsible Staff) Registered Nurse Continued Care and Services Coordination
--- OUTSIDE RECORDS SUMMARY | 2025-05-11 14:14 | XMS_ITS | Encounter Summary ---
Author Organization [employer] Address [address] [facility] 7t [place] [address] Care Team Providers Care Building Contractor Name Role Phone Zoraida Luo MD Primary Care Provider Sarah Medina PharmD Unavailable Ute Chatman RN Unavailable [phone] Carmen Aranda Unavailable Reason for Visit * Reason Onset Date Comments Appointment Request 03/15/2025 Encounter Details Date Type Department Care Team ([facility] st Contact Info) Description 03/15/2025 Telephone [facility] CHC MED & PEDS [address] [place], [place] [phone] Zoraida Luo MD [address] [place], [place] [phone] Appointment Request Social History Tobacco Use Types Packs/Day Years [...] encounter Miscellaneous Notes * Telephone Encounter - Paul Albert - 03/15/2025 12:14 PM EDT Tc from pt requesting a call back to schedule apt with pharmacy. Contact pt at [phone] documented in this encounter Plan of Treatment Upcoming Encounters Date Type Department Care Team (Late st Contact Info) Description 05/25/2025 9:15 AM EST Office Visit [facility] MED & PEDS [address] [place] [address] Gina Connelly MD [address] [place] [address] 06/04/2025 12:45 PM EST Office Visit [facility] ADULT DENTAL [address] [place] [address] Donny Oneill documented as of this encounter [...] documented as of this encounter Care Teams Building Contractor Relationship Specialty Start Date End Date Zoraida Luo MD [address] [place] [address] PCP - General Family Medicine 05/02/21 Sarah Medina PharmD [address] [place] [address] Pharmacist Internal Medicine 10/26/24 Ute Chatman, PATRIA [address] [place] [address] Registered Nurse Family Medicine 04/16/25 Carmen Aranda 04/16/25 Ana Chávez Data Warehouse Administrator 07/15/23 [facility] Housing Robot Operator 09/01/23 [facility] 08/25/23 documented as of this encounter
--- OUTSIDE RECORDS SUMMARY | 2025-05-11 14:14 | XMS_ITS | Encounter Summary ---
Author Organization [employer] Address [address] [facility] [address] 7t [place] [address] Care Team Providers Care Fructose Loader Name Role Phone Zoraida Luo MD Primary Care Provider [phone] Sarah Medina PharmD Unavailable [phone] Ute Chatman RN Unavailable [phone] Carmen Aranda Unavailable Reason for Visit * Reason Comments Med Refill Encounter Details Date Type Department Care Team (Late st Contact Info) Description 05/10/[address] [facility] CHC MED & PEDS [address] [place], [place] [phone] Zoraida Luo MD [address] [place] [address] Other specified diabetes mellitus with hyperglycemia, with long-term current use of insulin (HCC) Social History Tobacco Use Types Packs/Day Years [...] Description 05/25/2025 9:15 AM EST Office Visit [facility] MED & PEDS [address] [place] [address] Gina Connelly MD [address] [place] [address] 06/04/2025 12:45 PM EST Office Visit [facility] ADULT DENTAL [address] [place] [address] Donny Oneill documented as of this encounter [...] documented in this encounter Additional Health Concerns Active [...] documented as of this encounter Care Teams Fructose Loader Relationship Specialty Start Date End Date Zoraida Luo MD [address] [place] [address] PCP - General Family Medicine 05/02/21 Sarah Medina PharmD [address] [place] [address] Pharmacist Internal Medicine 10/26/24 Ute Chatman RN [address] [place] [address] Registered Nurse Family Medicine 04/16/25 Carmen Aranda 04/16/25 Ana Chávez Senior Application Software Engineer 07/15/23 [facility], [facility] Housing Home Health Speech Therapist 09/01/23 [facility] 08/25/23 documented as of this encounter
--- OUTSIDE RECORDS SUMMARY | 2025-05-11 14:14 | XMS_ITS | Encounter Summary ---
Author Organization [employer] Address [address] [facility] [address] 7t [place] [address] Care Team Providers Care Mixer Operator Vacuum Pan Salt Name Role Phone Zoraida Luo MD Primary Care Provider [phone] Andrea Zarate RN Unavailable [phone] Andrea Zarate RN Unavailable [phone] Sarah Medina PharmD Unavailable [phone] Ute Chatman RN Unavailable [phone] Carmen Aranda Unavailable Reason for Visit * Reason Comments Med Refill Encounter Details Date Type Department Care Team ([facility] st Contact Info) Description 04/17/2024 Refill [facility] CHC MED & PEDS [address] [place] [address] Zoraida Luo MD 505 [place] [address] Bilateral primary osteoarthritis of knee Social History [...] 05/25/2025 9:15 AM EST Office Visit [facility] MED & PEDS [address] [place] [address] Gina Connelly MD 505 [place] [address] 06/04/2025 12:45 PM EST Office Visit [facility] ADULT DENTAL [address] [place] [address] Donny Oneill documented as of this encounter [...] documented as of this encounter Care Teams Mixer Operator Vacuum Pan Salt Relationship Specialty Start Date End Date Zoraida Luo MD [address] [place] [address] PCP - General Family Medicine 05/02/21 Andrea Zarate, RN [address] [place] [address] Fairground OperatorFence Builder 03/22/24 08/28/24 Andrea Zarate, PATRIA [address] [place] [address] Fairground OperatorFence Builder 08/25/24 01/11/25 Sarah Medina PharmD [address] [place] [address] Pharmacist Internal Medicine 10/26/24 Ute Chatman RN [address] [place] [address] Registered Nurse Family Medicine 04/16/25 Carmen Aranda 04/16/25 Ana Chávez Supervisor Fabrication Department 07/15/23 [facility] Housing Container Packer Operator 09/01/[address] [facility] 08/25/23 documented as of this encounter
--- OUTSIDE RECORDS SUMMARY | 2025-05-11 14:14 | XMS_ITS | Encounter Summary ---
Author Organization [employer] Address [address] [facility] 7t [place] [address] Care Team Providers Care Clothing Manager Name Role Phone Zoraida Luo MD Primary Care Provider Andrea Zarate RN Unavailable [phone] Andrea Zarate RN Unavailable [phone] Sarah Medina PharmD Unavailable [phone] Ute Chatman RN Unavailable [phone] Carmen Aranda Unavailable Encounter Details Date Type Department Care Team (Late st Contact Info) Description 07/28/2022 Abstract [facility] MEDICINE [address] [place] [address] Zoraida Luo MD [address] [place], [place] [phone] Social History Tobacco Use Types Packs/Day Years [...] [facility] [address] [place] [address] Gina Connelly MD 505 [place] [address] 06/04/2025 12:45 PM EST Office Visit [facility] ADULT DENTAL [address] [place] [address] Donny Oneill documented as of this encounter Visit Diagnoses Not on filedocumented in this encounter Additional Health Concerns Assessment Noted Time PHQ-9 Depression Total Score: 3 07/16/19 23 2:48 PM EST documented as of this encounter Care Teams Clothing Manager Relationship Specialty Start Date End Date Zoraida Luo MD [address] [place] [address] PCP - General Family Medicine 05/02/21 Andrea Zarate, PATRIA [address] [place] [address] Acquisitions AnalystUrogynecology Physician 03/22/24 08/28/24 Andrea Zarate RN [address] [place] [address] Acquisitions AnalystUrogynecology Physician 08/25/24 01/11/25 Sarah Medina PharmD [address] [place] [address] Pharmacist Internal Medicine 10/26/24 Ute Chatman, PATRIA [address] [place] [address] Registered Nurse Family Medicine 04/16/25 Carmen Aranda 04/16/25 Ana Chávez Philosophy Specialist 07/15/23 [facility] Housing Baseboard Heating Installer 09/01/23 [facility] 08/25/23 documented as of this encounter
--- OUTSIDE RECORDS SUMMARY | 2025-05-11 14:14 | XMS_ITS | Encounter Summary ---
Author Organization [employer] Address [address] [facility] [address] 7t [place] [address] Care Team Providers Care Computing Systems Mechanic Name Role Phone Zoraida Luo MD Primary Care Provider [phone] Sarah Medina PharmD Unavailable [phone] Ute Chatman RN Unavailable [phone] Carmen Aranda Unavailable Reason for Visit * Reason Comments Med Refill Encounter Details Date Type Department Care Team ([facility] st Contact Info) Description 05/11/2025 Refill [facility] CHC MED & PEDS [address] [place], [place] [phone] Zoraida Luo MD [address] [place] [address] Social History Tobacco Use Types Packs/Day Years [...] 05/25/2025 9:15 AM EST Office Visit [facility] MED & PEDS [address] [place] [address] Gina Connelly MD 505 [place] [address] 06/04/2025 12:45 PM EST Office Visit [facility] ADULT DENTAL [address] [place] [address] Donny Oneill documented as of this encounter [...] documented as of this encounter Care Teams Computing Systems Mechanic Relationship Specialty Start Date End Date Zoraida Luo MD [address] [place] [address] PCP - General Family Medicine 05/02/21 Sarah Medina PharmD [address] [place] [address] Pharmacist Internal Medicine 10/26/24 Ute Chatman RN [address] [place] [address] Registered Nurse Family Medicine 04/16/25 Carmen Aranda 04/16/25 Ana Chávez Filter Changing Technician 07/15/23 [facility] Housing Take Down Sorter 09/01/23 [facility] 08/25/23 documented as of this encounter
--- OUTSIDE RECORDS SUMMARY | 2025-05-11 14:14 | XMS_ITS ---
Author Organization [employer] Address [address] [facility] 7t [place] [address] Care Team Providers Care Catalyst Impregnator Name Role Phone Zoraida Luo MD Primary Care Provider [phone] Sarah Medina PharmD Unavailable [phone] Ute Chatman RN Unavailable [phone] Carmen Aranda Unavailable CHW Complex Status:Enrolled (Active) Start date:04/17/2025 Enrollment date:04/30/2025 Enrollment reason:Referred by provider Overview Home Health Utilization Referral- Please outreach to patient to offer CM program. Case Team Name Relationship Phone Carmen Aranda(Responsible Staff) Continued Care and Services Coordination
== END ==
LOC: HO.CARD 13:41
PROVIDERS: Visit Provider Internal Medicine
DX: I51.0 Cardiac septal defect, acquired (principal); Z94.0 Kidney transplant status
CPT/HCPCS: 93306

== ENCOUNTER → 2025-05-11 13:58 | Outpatient (BNV) | payer MEDICAID, SELFPAY | PROVIDERS: Visit Provider Internal Medicine | DX: I31.39 Other pericardial effusion (noninflammatory) (principal); Z94.0 Kidney transplant status; I51.89 Other ill-defined heart diseases | CPT/HCPCS: 93306 ==